=== PATIENT | female | born 1970 | race Caucasian/White ===

== ENCOUNTER 2023-10-03 21:57 | Emergency (ER) | payer BC, SELFPAY ==
[2023-10-03 22:14] VITALS: BP 210/105; PULSE 94; RESP 18; O2SAT 96; BMI 43.9
[2023-10-03 23:35] VITALS: O2SAT 93
[2023-10-03 23:36] VITALS: BP 233/114; O2SAT 93
[2023-10-03 23:40] VITALS: O2SAT 91
--- NOTE | 2023-10-03 23:47 | ED.NAVMDI1 ---
HPI - Nausea/Vomiting/Diarrhea General Chief complaint: Nausea/Vomiting/Diarrhea Stated complaint: SHORTNESS OF BREATH Time Seen by Provider: 10/03/23 23:39 Source: patient Mode of arrival: walk-in History of Present Illness HPI Narrative: patient states she has been ill for 3 days and recurrent vomiting and diarrhea on and off. No complaint of abdominal pain. no hematemesis or blood per rectum. Denies exposure to someone ill. Past history of diabetes and HTN. States she no longer takes medication because she loss her insurance. No fever , cough or chest pain . States her throat is sore but she can swallow. Her BP is elevated. No complaint of headache or chest pain MD elicited complaint: Reports nausea, vomiting and diarrhea Related Data Home Medications Medication Instructions Recorded Confirmed No Known Home Medications 10/03/23 10/03/23 Allergies Allergy/AdvReac Type Severity Reaction Status Date / Time latex Allergy Unknown Verified 10/03/23 22:18 Review of Systems ROS Status of ROS 10 or more systems reviewed and unremarkable except as noted in history and below [facility] Social History Smoking status: Current every day smoker Exam Constitutional Vital Signs, click to edit/add: Last Vital Signs Pulse 84 10/04/23 03:11 Resp 18 10/03/23 22:14 BP 180/75 H 10/04/23 03:11 Pulse Ox 96 10/04/23 03:11 O2 Del Method Room Air 10/03/23 22:14 Common normals: no apparent distress, oriented x3, alert and well nourished Eye Common normals: EOMs intact bilaterally and conjunctivae normal Respiratory Common normals: normal respiratory effort, no retractions, no use of accessory muscles and clear to auscultation bilaterally Cardio Common normals: regular rate, regular rhythm, S1 normal heart sound and S2 normal heart sound GI Common normals: Normal to inspection, nondistended, normoactive bowel sounds present, soft to palpation and non-tender Extremity Common normals: full ROM Other: tense trace edema bilat lower extremities Neuro Common normals: CN's II-XII intact bilaterally, moves all extremities and no focal motor deficits Psych Appearance: grossly normal Course Vital Signs Vital signs: Vital Signs Pulse Rate 94 H 10/03/23 22:14 Respiratory Rate 18 10/03/23 22:14 Blood Pressure 210/105 H 10/03/23 22:14 Pulse Oximetry 96 10/03/23 22:14 Oxygen Delivery Method Room Air 10/03/23 22:14 Pulse Rate 84 10/04/23 03:11 Respiratory Rate 18 10/03/23 22:14 Blood Pressure 180/75 H 10/04/23 03:11 Pulse Oximetry 96 10/04/23 03:11 Oxygen Delivery Method Room Air 10/03/23 22:14 MDM - Nausea/Vomiting/Diarrhea MDM Narrative Medical decision making narrative: patient presents with gastroenteritis symptoms. Treated in the department with zofran without recurrence of vomiting and able to keep down fluids. she has past history of CKD. labs from 07/2022 with creat 1.6. she is diabetic and has not taken any medications for diabetes. her BS tonight is 186. her creat is 2.1 with normal bicarb 26.9. Her potassium was low at 2.6 and supplemented while here in the department. Cxray with findings of infiltrate left chest. patient does not have any shortness of breath. She is advised of the importance of follow up with her family doctor. Treated with 1gm of rocephin and zithomax 500 before discharge. Discharged with a prescription for Ceftin, zithromax, catapres and zofran. Lab Data Labs: Lab Results 10/04/23 Range/Units 00:36 WBC 6.1 (4.0-11.0) 10^3/uL RBC 4.34 (4.20-5.40) 10^6/uL Hgb 12.1 (12.0-16.0) g/dL Hct 36.1 (36.0-48.0) % MCV 83.2 (81.0-99.0) fL MCH 27.9 (26.7-34.0) pg MCHC 33.5 (29.9-35.2) g/dL RDW 13.1 (11.0-15.0) % Plt Count 158 (150-450) 10^3/uL MPV 12.7 (9.5-13.5) fL Neut % (Auto) 62.5 (43.0-75.0) % Lymph % (Auto) 26.7 (20.5-60.0) % [place] % (Auto) 10.0 (1.7-12.0) % Eos % (Auto) 0.2 L (0.9-7.0) % Baso % (Auto) 0.3 (0.2-2.0) % Neut # (Auto) 3.8 (1.4-6.5) 10^3/uL Lymph # (Auto) 1.6 (1.2-3.8) 10^3/uL [place] # (Auto) 0.6 (0.3-0.8) 10^3/uL Eos # (Auto) 0.0 (0.0-0.7) 10^3/uL Baso # (Auto) 0.0 (0.0-0.1) 10^3/uL Abs Immat Gran (auto) 0.02 (0.00-0.03) 10^3/uL Imm/Tot Granulo (auto) 0.3 (0.0-0.5) % Sodium 138 (136-145) mmol/L Potassium 2.6 L* (3.5-5.1) mmol/L Chloride 101 (98-107) mmol/L Carbon Dioxide 26.9 (21.0-32.0) mmol/L Anion Gap 12.7 BUN 22.0 H (7.0-18.0) mg/dL Creatinine 2.18 H (0.55-1.02) mg/dL Est GFR ( Amer) 29 L (>=60) Est GFR (Non-Af Amer) 24 L (>=60) BUN/Creatinine Ratio 10.1 Glucose 186 H (74-106) mg/dL Calcium 8.0 L (8.5-10.1) mg/dL Total Bilirubin 0.2 (0.2-1.0) mg/dL AST 20 (15-37) U/L ALT 13 L (14-59) U/L Alkaline Phosphatase 75 (46-116) U/L Troponin I High Sens 31.3 (4.0-51.3) pg/mL Total Protein 6.0 L (6.4-8.2) g/dL Albumin 1.4 L (3.4-5.0) g/dL Globulin 4.6 g/dL Albumin/Globulin Ratio 0.3 Imaging Data Chest x-ray: Radiologist's impression: MINATION: XR chest 2V HISTORY: vomiting COMPARISON: XR chest 11/24/2022 FINDINGS: LUNGS: Opacities within left lung base obscuring the diaphragm and lower heart margin. VASCULATURE: No increased pulmonary vasculature. PLEURA: Blunting of costophrenic angles bilaterally. CARDIAC: No cardiomegaly or cardiac silhouette abnormality. MEDIASTINUM: No visible mass or adenopathy. BONES: No fracture or visible bone lesion. OTHER: Negative. XR/XR chest 2V IMPRESSION: 1. Mild/moderate left basilar infiltrates suggestive of pneumonia. 2. Possible small bilateral pleural effusions. Discharge Plan Discharge Chief Complaint: Nausea/Vomiting/Diarrhea Clinical Impression: Gastroenteritis, Chronic kidney disease (CKD), Hypertension, Pneumonia, Hypokalemia Patient Disposition: Home, Self-Care Prescriptions / Home Meds: No Action No Known Home Medications Instructions: Chronic Kidney Disease Diet (DC), Hypokalemia (ED), Gastroenteritis (ED), Hypertension (ED), Pneumonia (ED) Additional Instructions: follow up with your doctor early next week. Return if any worsening or vomiting not controlled Stand Alone Forms: Portal Instructions Referrals: Arnulfo Sarmiento MD [Primary Care Provider] - 1 week
[2023-10-03 23:50] VITALS: O2SAT 94
--- NOTE | 2023-10-03 23:53 | XR_ITS ---
The [address] [address] Patient Name: DARYL CHAPARRO MRN: [id number] date: 1970 Sex: F Assigned Patient Location: ER Current Patient Location: ER Accession/Order Number: [id number] Exam Date: 10/03/2023 23:59 Report Date: 10/04/2023 01:41 At the request of: MARSHA LOMELI Procedure: XR chest 2V EXAMINATION: XR chest 2V HISTORY: vomiting COMPARISON: XR chest 11/24/2022 FINDINGS: LUNGS: Opacities within left lung base obscuring the diaphragm and lower heart margin. VASCULATURE: No increased pulmonary vasculature. PLEURA: Blunting of costophrenic angles bilaterally. CARDIAC: No cardiomegaly or cardiac silhouette abnormality. MEDIASTINUM: No visible mass or adenopathy. BONES: No fracture or visible bone lesion. OTHER: Negative. XR/XR chest 2V IMPRESSION: 1. Mild/moderate left basilar infiltrates suggestive of pneumonia. 2. Possible small bilateral pleural effusions. Electronically authenticated by: KATALINA SIMS Date: 10/04/2023 01:41
[2023-10-03 23:58] VITALS: O2SAT 91
[2023-10-04 00:53] LABS: Basophils Percent Auto 0.3 % (0.2-2.0); Eosinophils Percent Auto 0.2 % (0.9-7.0); Hematocrit 36.1 % (36.0-48.0); Hemoglobin 12.1 g/dL (12.0-16.0); Immature Granulocytes Abs Auto 0.02 10^3/uL (0.00-0.03); Immature Granulocytes Pct Auto 0.3 % (0.0-0.5); Lymphocytes Absolute Auto 1.6 10^3/uL (1.2-3.8); Lymphocytes Percent Auto 26.7 % (20.5-60.0); Mean Corpuscular HGB Conc 33.5 g/dL (29.9-35.2); Mean Corpuscular Hemoglobin 27.9 pg (26.7-34.0); Mean Corpuscular Volume 83.2 fL (81.0-99.0); Mean Platelet Volume 12.7 fL (9.5-13.5); Monocytes Absolute Auto 0.6 10^3/uL (0.3-0.8); Neutrophils Absolute Auto 3.8 10^3/uL (1.4-6.5); Neutrophils Percent Auto 62.5 % (43.0-75.0); Platelet Count 158 10^3/uL (150-450); Red Blood Count 4.34 10^6/uL (4.20-5.40); Red Cell Distribution Width 13.1 % (11.0-15.0); White Blood Count 6.1 10^3/uL (4.0-11.0)
[2023-10-04 01:15] LABS: Alanine Aminotransferase 13 U/L (14-59); Albumin Globulin Ratio 0.3; Albumin Level 1.4 g/dL (3.4-5.0); Alkaline Phosphatase 75 U/L (46-116); Anion Gap 12.7; Aspartate Amino Transferase 20 U/L (15-37); BUN Creatinine Ratio 10.1; Bilirubin Total 0.2 mg/dL (0.2-1.0); Carbon Dioxide 26.9 mmol/L (21.0-32.0); Chloride 101 mmol/L (98-107); Estimated GFR (African America 29 (>=60); Estimated GFR (Non-African Ame 24 (>=60); Globulin 4.6 g/dL; Glucose 186 mg/dL (74-106); Sodium 138 mmol/L (136-145); Troponin I High Sensitivity 31.3 pg/mL (4.0-51.3)
[2023-10-04 01:17] LABS: Potassium 2.6 mmol/L (3.5-5.1)
--- NOTE | 2023-10-04 01:18 | PC.NURSE ---
Potassium 2.6 aware.
[2023-10-04] MEDS: ONDANSETRON 4 MG RAPDIS TABLET SL (01:23)
[2023-10-04 01:26] VITALS: BP 217/94
[2023-10-04 01:27] VITALS: BP 217/94
[2023-10-04] MEDS: CLONIDINE HCL 0.2 MG TABLET PO (01:27)
[2023-10-04] MEDS: POTASSIUM CHLORIDE 10 MEQ ER TABLET 40 MEQ PO (01:43)
[2023-10-04 01:45] VITALS: O2SAT 89
[2023-10-04 01:48] VITALS: BP 227/91; O2SAT 88
[2023-10-04 03:11] VITALS: BP 180/75; PULSE 84; O2SAT 96
[2023-10-04] MEDS: CEFTRIAXONE 1,000 MG, LIDOCAINE HCL/PF 2.1 ML IM (04:10)
[2023-10-04] MEDS: CLONIDINE HCL 0.1 MG TABLET PO (04:15)
[2023-10-04 04:18] VITALS: BP 174/72; PULSE 67; RESP 18; O2SAT 99
== END 2023-10-04 04:17 | disposition home or self-care (01) ==
PROVIDERS: Emergency Provider Internal Medicine; PCP Surgery
DX: K52.9 Noninfective gastroenteritis and colitis, unspecified (principal); I12.9 Hypertensive chronic kidney disease with stage 1 through stage 4 chronic kidney disease, or unspecified chronic kidney disease; N18.9 Chronic kidney disease, unspecified; J18.9 Pneumonia, unspecified organism; E87.6 Hypokalemia; F17.210 Nicotine dependence, cigarettes, uncomplicated; Z87.898 Personal history of other specified conditions
CPT/HCPCS: 36415; 71046; 80053; 84484; 85025; 96372; 99285

== ENCOUNTER 2023-10-29 19:32 | Inpatient (IN) | payer BC, SELFPAY ==
[2023-10-29 19:43] VITALS: BP 180/100; PULSE 104; RESP 18; TEMP 36.8; O2SAT 86; BMI 41.8
--- OUTSIDE RECORDS SUMMARY | 2023-10-29 19:46 | XMS_ITS | CCD ---
Author Name Unknown Address [address] [place] [address] Organization [facility] Care Team Providers Care Cover Inspector Name Role Phone TAMLYN ., HIEU Attending Unavailable ZEFERINO, DR BARBOZA Primary Care Unavailable TAMLYN ., HIEU Admitting Unavailable DERAS, DR BARBOZA Primary Care Unavailable TAMLYN ., HIEU Attending Unavailable TAMLYN ., HIEU Admitting Unavailable TAMLYN ., HIEU Attending Unavailable DERAS, DR BARBOZA Primary Care Unavailable TAMLYN ., HIEU Admitting Unavailable TAMLYN ., HIEU Attending Unavailable TAMLYN ., HIEU Admitting Unavailable ZEFERINO, DR BARBOZA Primary Care Unavailable TAMLYN ., HIEU Attending Unavailable TAMLYN ., HIEU Admitting Unavailable DERAS, DR BARBOZA Primary Care Unavailable TAMLYN ., HIEU Attending Unavailable ZEFERINO, DR BARBOZA Primary Care Unavailable TAMLYN ., HIEU Admitting Unavailable TAMLYN ., HIEU Attending Unavailable ZEFERINO, DR BARBOZA Primary Care Unavailable TAMLYN ., HIEU Admitting Unavailable ZEFERINO, DR BARBOZA Primary Care Unavailable HAY ., DR SOUTH Admitting Unavailable HU ., MR TEJADA Consulting Unavailable HAY ., DR SOUTH Attending Unavailable ZEFERINO, DR BARBOZA Primary Care Unavailable HOY ., DR ARMENDARIZ Attending Unavailable BRYCE ., DR ARMENDARIZ Admitting Unavailable SAMSA ., DORA Procedure Practitioner Unavailab saba Matthews, DR ARMENDARIZ Consulting Unavailable VINNY JACKSON V Consulting Unavailable BETHANY, DR KATALINA Mcdaniels Consulting Unavailable DEVIN, DR OPAL Bonilla Consulting Unavailable JOHNSON .DONAVAN Consulting Unavailabl e SAMSA ., DORA Consulting Unavailable JUNIOR Matthews, HALIEY Consulting Unavailable DIXIE KHAN Consulting Unavailable LILIANA DICKENS Consulting Unavailable ZEFERINO, DR BARBOZA Consulting Unavailable ZEFERINO, DR BARBOZA Attending Unavailable ZEFERINO, DR BARBOZA Admitting Unavailable ZEFERINO, DR BARBOZA Primary Care Unavailable TAMLYN ., HIEU Procedure Practitioner Unavailab le ZEFERINO, DR BARBOZA Primary Care Unavailable FAWWAD, BEAVERS H Attending Unavailable FAWWAD, BEAVERS H Admitting Unavailable MARY ANN ., DR LILIANA Vaughn Consulting Unavaildede WU ., DR ARMENDARIZ Consulting Unavailable SHARWAD, BEAVERS H Procedure Practitioner UnavailVINNY Earl V Consulting Unavailable BETHANY, DR KATALINA Mcdaniels Consulting Unavailable PAY ., DR ODEN Consulting Unavailable SEGUNDOCHCÉSAR ., DONAVAN SCHWAB Consulting Unavailnato WONG, SHAIKH Jennifer Consulting Unavailable SATURNINO GRUBER Consulting Unavailable NAMITA II, RAIZA Consulting Unavailable TAMLYN ., HIEU Consulting Unavailable FILUTZE, KEV Consulting Unavailable FRANCIALYEren ., HIEU Admitting Unavailable ZEFERINO, DR BARBOZA Primary Care Unavailable TAMLYEren ., HIEU Attending Unavailable HAL ., HIEU Attending Unavailable ZEFERINO, DR BARBOZA Primary Care Unavailable TAMLYN ., HIEU Admitting Unavailable TAMLYN ., HIEU Attending Unavailable ZEFERINO, DR BARBOZA Primary Care Unavailable TAMLYN ., HIEU Admitting Unavailable Asaad, Imad Unavailable Asaad, Imad Admitting Unavailable Asaad, Imad Attending Unavailable Ayaan Deras Primary Care Unavailable Ayaan Deras Primary Care Unavailable Asaad, Imad Admitting Unavailable Asaad, Imad Attending Unavailable Ayaan Deras Primary Care Unavailable Asaad, Imad Admitting Unavailable Asaad, Imad Attending Unavailable Allergies Allergy Classification Reported Allergen(s) Allergy Type Date of Onset Reaction(s) Facility (1 source) Latex Drug allergy (disorder) [facility] Repository (1 source) Latex rubber gloves Drug allergy Unknown [employer]Trigger Other (1 source) Latex Drug allergy (disorder) 03-19-2023 [facility] Repository Medications Current Medications Medication Drug Class(es) Dates Sig (Normalized) Sig (Original) atorvastatin 40 mg oral tablet (1 source) HMG-CoA Reductase Inhibitor take 1 tablet by mouth every twenty-four hours Atorvastatin Calcium 40 MG 1 tablet Orally Once a day Active atropine sulfate 0.025 mg / diphenoxylate hydrochloride 2.5 mg oral tablet (1 source) Anticholinergic, Cholinergic Muscarinic Antagonist, Antidiarrheal take 1 tablet by mouth every six hours Diphenoxylate-Atrop ine 2.5-0.025 MG 1 tablet as needed Orally Four times a day Active dapagliflozin 10 mg oral tablet (1 source) Sodium-Glucose Cotransporter 2 Inhibitor take 1 tablet by mouth every twenty-four hours Farxiga 10 MG 1 tablet Orally Once a day Active ferrous sulfate 325 mg oral tablet (1 source) Ferrous Sulfate 325 MG as directed Orally Active furosemide 40 mg oral tablet (1 source) Loop Diuretic take 1 tablet by mouth every twenty-four hours Furosemide 40 MG 1 tablet Orally Once a day Active Insulin Glargine (1 source) Insulin Analog Lantus Active ondansetron 4 mg disintegrating oral tablet (1 source) Serotonin-3 Receptor Antagonist take 1 tablet by mouth every twenty-four hours Ondansetron 4 MG 1 tablet on the tongue and allow to dissolve Orally Once a day Active pantoprazole 40 mg delayed release oral tablet (1 source) Proton Pump Inhibitor take 1 tablet by mouth every twenty-four hours Pantoprazole Sodium 40 MG 1 tablet Orally Once a day Active polyethylene glycol 3350 134704 mg / potassium chloride 2970 mg / sodium bicarbonate 6740 mg / sodium chloride 5860 mg / sodium sulfate 74519 mg powder for oral solution (1 source) Osmotic Laxative Start: 03-11-2023 take 236 g by mouth once daily Golytely 236 GM 236 gm Orally the day before colonoscopy for 1 days February, Active spironolactone 25 mg oral tablet (1 source) Aldosterone Antagonist Spironolactone 25 MG 1 tablet Orally Active traZODone hydrochloride 100 mg oral tablet (1 source) Serotonin Reuptake Inhibitor take 1 tablet by mouth every twenty-four hours traZODone HCl 100 MG 1 tablet at bedtime Orally Once a day Active vancomycin 125 mg oral capsule (1 source) Glycopeptide Antibacterial Start: 03-19-2023 take 1 capsule by mouth four times daily Vancomycin HCl 125 MG 1 capsule Orally 4 times daily for 10 days February, Active Problems Active Problems Problem Classification Problem Date Documented Da te Episodic/Chronic Bacterial infection; unspecified site (1 source) Other specified bacterial agents as the cause of diseases classified elsewhere; Translations: [OTH SPEC BACTERIAL DZ CLASS ELSW] Onset: 01-12-2023 Episodic Chronic kidney disease (1 source) Chronic kidney disease; Translations: [CHRONIC KIDNEY DISEASE STAGE 3A] Onset: 08-12-2022 Chronic obstructive pulmonary disease and bronchiectasis (1 source) Chronic obstructive pulmonary disease, unspecified; Translations: [COPD UNSPECIFIED] Onset: 12-03-2022 Chronic Complications of surgical procedures or medical care (8 sources) Other complications of procedures, not elsewhere classified, subsequent encounter; Translations: [Other complications of procedures, not elsewhere classified, initial encounter] Onset: 01-01-2023 Episodic Congestive heart failure; nonhypertensive (2 sources) Chronic diastolic (congestive) heart failure; Translations: [Acute diastolic (congestive) heart failure] Onset: 08-12-2022 Chronic Diabetes mellitus with complications (3 sources) Type 2 diabetes 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; Translations: [Type 2 diabetes mellitus with diabetic chronic kidney disease] Onset: 12-03-2022 Chronic Diabetes mellitus without complication (1 source) Type 2 diabetes mellitus without complications; Translations: [TYPE 2 DM WITHOUT COMPLICATIONS] Onset: 04-23-2022 Chronic Diseases of white blood cells (1 source) Elevated white blood cell count, unspecified; Translations: [ELEVATED WHITE BLOOD CELL COUNT UNS] Onset: 08-12-2022 Chronic Disorders of lipid metabolism (2 sources) Hyperlipidemia, unspecified; Translations: [Pure hypercholesterolemi a, unspecified] Onset: 08-12-2022 Chronic Essential hypertension (1 source) Essential (primary) hypertension; Translations: [ESSENTIAL PRIMARY HYPERTENSION] Onset: 01-12-2023 Chronic Hypertension with complications and secondary hypertension (4 sources) Hypertensive heart and chronic kidney disease with heart failure and stage 1 through stage 4 chronic kidney disease, or unspecified chronic kidney disease; Translations: [Hypertensive urgency] Onset: 07-30-2022 Chronic Mood disorders (1 source) Major depressive disorder, single episode, unspecified; Translations: [JOSÉ DEPRESS D/O SINGLE EPIS UNS] Onset: 08-12-2022 Chronic Mood disorders (1 source) Mood disorders; Translations: [DEPRESSION UNSPECIFIED] Onset: 12-03-2022 Other gastrointestinal disorders (4 sources) Diarrhea, unspecified; Translations: [DIARRHEA UNSPECIFIED] Onset: 12-26-2022 Episodic Other gastrointestinal disorders (1 source) Diarrhea; Translations: [Diarrhea, unspecified] Episodic Other nutritional; endocrine; and metabolic disorders (1 source) Body mass index (BMI) 45.0-49.9, adult; Translations: [BODY MASS INDEX BMI 45.0-49.9 ADULT] Onset: 12-03-2022 Chronic Other nutritional; endocrine; and metabolic disorders (1 source) Morbid (severe) obesity due to excess calories; Translations: [MORBID SEVERE OBES D/T EXCESS YG] Onset: 12-03-2022 Chronic Other screening for suspected conditions (not mental disorders or infectious disease) (2 sources) Patient encounter status; Translations: [Encounter for screening for malignant neoplasm of colon] Episodic Skin and subcutaneous tissue infections (1 source) Cellulitis of other sites; Translations: [CELLULITIS OF OTHER SITES] Onset: 01-12-2023 Episodic Substance-related disorders (2 sources) Nicotine dependence, cigarettes, with unspecified nicotine-induced disorders; Translations: [Nicotine dependence, cigarettes, uncomplicated] Onset: 12-03-2022 Chronic Unclassified (1 source) CHRN KIDNEY DISEASE STG 3 UNSP; Translations: [CHRN KIDNEY DISEASE STG 3 UNSP] Onset: 12-03-2022 Unclassified (1 source) CONTACT W/AND (SUSP) EXPOS COVID-19; Translations: [CONTACT W/AND (SUSP) EXPOS COVID-19] Onset: 08-12-2022 Unclassified (1 source) Diarrhea, unspecified; Translations: [Diarrhea, unspecified] Onset: 03-19-2023 Past or Other Problems Problem Classification Problem Date Documented Da te Episodic/Chronic Acute and unspecified renal failure (1 source) Acute kidney failure, unspecified; Translations: [ACUTE KIDNEY FAILURE UNSPECIFIED] Onset: 12-03-2022 Episodic Deficiency and other anemia (1 source) Anemia, unspecified; Translations: [ANEMIA UNSPECIFIED] Onset: 12-03-2022 Episodic Fluid and electrolyte disorders (1 source) Hypokalemia; Translations: [HYPOKALEMIA] Onset: 08-12-2022 Episodic Gangrene (1 source) Gangrene, not elsewhere classified; Translations: [GANGRENE NOT ELSEWHERE CLASSIFIED] Onset: 12-03-2022 Episodic Gastritis and duodenitis (1 source) Gastroduodenitis, unspecified, without bleeding; Translations: [GASTRODUODENITIS UNS W/O BLEEDING] Onset: 08-12-2022 Episodic Nonmalignant breast conditions (1 source) Mastitis without abscess; Translations: [MASTITIS WITHOUT ABSCESS] Onset: 12-03-2022 Episodic Other aftercare (1 source) prison (current) use of oral hypoglycemic drugs; Translations: [[facility] USE ORAL HYPOGLYCEMIC DX] Onset: 12-03-2022 Episodic Other aftercare (1 source) Other intermediate (current) drug therapy; Translations: [OTH FROZEN FOOD DEPARTMENT MANAGER CURRENT DRUG THERAPY] Onset: 12-03-2022 Episodic Other aftercare (1 source) prison (current) use of insulin; Translations: [FROZEN FOOD DEPARTMENT MANAGER CURRENT USE OF INSULIN] Onset: 12-03-2022 Episodic Other ear and sense organ disorders (3 sources) Otalgia, right ear; Translations: [OTALGIA RIGHT EAR] Onset: 04-20-2022 Episodic Other gastrointestinal disorders (1 source) Other fecal abnormalities; Translations: [OTHER FECAL ABNORMALITIES] Onset: 08-12-2022 Episodic Other upper respiratory infections (1 source) Acute upper respiratory infection, unspecified; Translations: [ACUTE UP RESPIRATORY INFECTION UNS] Onset: 04-23-2022 Episodic Otitis media and related conditions (1 source) Otitis media, unspecified, right ear; Translations: [OTITIS MEDIA UNSPECIFIED RIGHT EAR] Onset: 04-23-2022 Episodic Pleurisy; pneumothorax; pulmonary collapse (1 source) Pleural effusion in other conditions classified elsewhere; Translations: [PLEURAL EFF OTH COND CLASS ELSW] Onset: 08-12-2022 Episodic Residual codes; unclassified (1 source) Family history of malignant neoplasm of breast; Translations: [FAMILY HX MALIG NEOPLASM OF BREAST] Onset: 12-03-2022 Episodic Respiratory failure; insufficiency; arrest (adult) (1 source) Acute respiratory failure with hypoxia; Translations: [ACUTE RESPIRATORY FAIL W/HYPOXIA] Onset: 08-12-2022 Episodic Septicemia (except in labor) (4 sources) Sepsis, unspecified organism; Translations: [Severe sepsis without septic shock] Onset: 11-21-2022 Episodic Results Test Name Value Interpretation Reference Range Facility Glucose Poct Glucometerson 0 03-19-2023 Commemt1 Glu2: Cleaned Meter Normal [facility] Comment on above: Result Comment: PERF ORMED BY: [place] [address] PATHOLOGIST LEAD SIMULATION MODELING ENGINEER PAT NORWOOD M.D. Performed By: #### C ELIAC #### [facility] , #### TSH3, ESR, CRP #### [place] [address] [place] Glucose [Mass/Vol] 93 mg/dL Normal [facility] Comment on above: Result Comment: [facility] Glucose Reference Range is dependent on time and content of last meal. Glucose of more than 200 mg/dL in a nonstressed, ambulatory subject supports the diagnosis of Diabetes Mellitus. Performed By: #### C ELIAC #### [facility] , #### TSH3, ESR, CRP #### [facility] [address] [place] 03-19-2023 L --- Specimen: [id number] Received: 03/19/23 Status: CORRY Flannery Num: [id number] Spec Type: Surgical Subm Dr: Carolyn Ramsey MD Tissues: A Colon Biopsy (RANDOM COLON BX) Procedures: HE/Gem, Nito/Himanshu L4 Age/ Patient Sex Location Account Attending Physician Daryl Roque 53/F [id number] Carolyn Ramsey MD SPEC NUM: [id number] RECD: 03/19/23 STATUS: CORRY FLANNERY NUM: [id number] MARIANNA: 03/19/23 DR: Carolyn Ramsey MD ENTERED: 03/19/[address] [facility] [address]: MELLISSA TYPE: Surgical DEPT: S ORDERED: HE/2, Gross/Micro L4 ORDERED: HE/2, Gross/Micro L4 Pathological Diagnosis Colon, random, biopsy: - Colonic mucosa negative for significant histopathologic changes. - There is no evidence of acute, chronic or microscopic colitis. - Negative for epithelial dysplasia. Clinical Information Diarrhea, rule out microscopic colitis Gross Description Received in formalin labeled with the patient's name, number and biopsy random colon are three fragments of soft low tissue averaging 0.2 cm. Entirely submitted in one cassette labeled A1. Microscopic Description Two H E slides reviewed. The microscopic examination confirms the diagnosis. CPT Codes 51415 Specimen: [id number] Received: 03/19/23 Status: CORRY Flannery Num: [id number] Spec Type: Surgical Subm Dr: Carolyn Ramsey MD Tissues: A Colon Biopsy (RANDOM COLON BX) Procedures: HE/2, Gross/Micro L4 Patient: Daryl Roque [id number] (Continued) Signed (signature on file) Kelsea Sullivan MD 03/20/23 1035 Normal [facility] Calprotectin, Fecalon 2022 Calprotectin, Fecal 6 Normal 0-120 [facility] Comment on above: Order Comment: Reaso n for Exam Diarrhea Result Comment: Conc entration Interpretation Follow-Up < 5 - 50 ug/g Normal None >50 -120 ug/g Borderline Re-evaluate in 4-6 weeks >120 ug/g Abnormal Repeat as clinically indicated Performed at: - [facility] [address] [id number] Showroom Consultant: Mary Sung MD, Phone: [phone] PERFORMED BY: [facility] [address] [place] [address] PATHOLOGIST LEAD SIMULATION MODELING ENGINEER PAT NORWOOD M.D. Performed By: #### C ALPROTECT, OPEXAM, ELASTASE STOOL #### [facility] , #### CDT, CUSTOOL #### [facility] [address] [place] [address] Clostridium Difficileon 02-24 Clostridium Difficile Positive Normal Negative [facility] Comment on above: Order Comment: Reaso n for Exam Diarrhea Result Comment: Test ing performed by RT-PCR PERFORMED BY: [place] [address] PATHOLOGIST LEAD SIMULATION MODELING ENGINEER PAT NORWOOD M.D. Performed By: #### C ALPROTECT, OPEXAM, ELASTASE STOOL #### [facility] , #### CDT, CUSTOOL #### [facility] [address] [place] [address] OVA AND PARASITEon OVA AND PARASITE Reason for Exam Diarrhea Stool Reason for Exam: Diarrhea : Stool Final report These results were obtained using wet preparation(s) and trichrome stained smear. This test does not include testing for Cryptosporidium parvum, Cyclospora, or Microsporidia. Reason for Exam Diarrhea Stool Reason for Exam: Diarrhea : Stool No ova, cysts, or parasites seen. One negative specimen does not rule out the possibility of a parasitic infection. Performed at: - [facility] [id number] Showroom Consultant: Louis Hansen PhD, Phone: [phone] PERFORMED BY: [place] [address] PATHOLOGIST LEAD SIMULATION MODELING ENGINEER PAT NORWOOD M.D. Normal [facility] Comment on above: Performed By: #### C ALPROTECT, OPEXAM, ELASTASE STOOL #### [facility] , #### CDT, CUSTOOL #### [facility] [address] [place] [address] [place] Pancreatic Elastase, Stoolon 03-18-2023 Pancreatic Elastase, Stool >500 Normal >200 [facility] Comment on above: Order Comment: Reaso n for Exam Diarrhea Result Comment: Resu lt Units: ug Elast./g Severe Pancreatic Insufficiency: <100 Moderate Pancreatic Insufficiency: 100 - 200 Normal: >200 Performed at: - [facility] [id number] Showroom Consultant: Mary Sung MD, Phone: [phone] Performed By: #### C ALPROTECT, OPEXAM, ELASTASE STOOL #### [facility] , #### CDT, CUSTOOL #### [facility] [address] [place] [address] Stool Cultureon 03-18-2023 Stool culture Reason for Exam Diarrhea Stool Reason for Exam: Diarrhea : Stool Negative for Shiga Toxin 1 Negative for Shiga Toxin 2 -------- A negative Shiga Toxin result may occur if the antigen level in the specimen is below the detection limit of the assay. Stool culture results No Salmonella, Shigella, Campy or E. coli 0157:H7 Isolated PERFORMED BY: [place] [address] PATHOLOGIST LEAD SIMULATION MODELING ENGINEER PAT NORWOOD M.D. [facility] Comment on above: Performed By: #### C ALPROTECT, OPEXAM, ELASTASE STOOL #### [facility] , #### CDT, CUSTOOL #### [facility] [address] [place] [address] C-Reactive Proteinon 023 C-Reactive Protein 1.0 mg/dL High 0.0-0.5 [facility] Comment on above: Order Comment: Reaso n for Exam Diarrhea Performed By: #### C ELIAC #### [facility] , #### TSH3, ESR, CRP #### [facility] [address] [place] [address] Celiacon 03-11-2023 Deamidated Gliadin Abs, IgA 9 Normal 0-19 [facility] Comment on above: Order Comment: Reaso n for Exam Diarrhea Result Comment: Nega tive 0 - 19 Weak Positive 20 - 30 Moderate to Strong Positive >30 Performed By: #### C ELIAC #### [facility] , #### TSH3, ESR, CRP #### [facility] [address] [place] [address] [place] Deamidated Gliadin Abs, IgG 3 Normal 0-19 [facility] Comment on above: Order Comment: Reaso n for Exam Diarrhea Result Comment: Nega tive 0 - 19 Weak Positive 20 - 30 Moderate to Strong Positive >30 Performed By: #### C ELIAC #### [facility] , #### TSH3, ESR, CRP #### [facility] [address] [place] [address] [place] Endomysial Antibody IgA Negative Normal Negative [facility] Comment on above: Order Comment: Reaso n for Exam Diarrhea Performed By: #### C ELIAC #### [facility] , #### TSH3, ESR, CRP #### [facility] [address] [place] [address] [place] Immunoglobulin A, Qn, Serum 267 mg/dL Normal 87-352 [facility] Comment on above: Order Comment: Reaso n for Exam Diarrhea Result Comment: Perf ormed at: - [facility] [address] [id number] Showroom Consultant: Louis Hansen PhD, Phone: [phone] PERFORMED BY: [place] [address] PATHOLOGIST LEAD SIMULATION MODELING ENGINEER PAT NORWOOD M.D. Performed By: #### C ELIAC #### [facility] , #### TSH3, ESR, CRP #### [facility] [address] [place] [address] [place] T-Transglutaminase (tTG) IgA <2 Normal 0-3 [facility] Comment on above: Order Comment: Reaso n for Exam Diarrhea Result Comment: Nega tive 0 - 3 Weak Positive 4 - 10 Positive >10 Tissue Transglutaminase (tTG) has been identified as the endomysial antigen. Studies have demonstr- ated that endomysial IgA antibodies have over 99% specificity for gluten sensitive enteropathy. Performed By: #### C ELIAC #### [facility] , #### TSH3, ESR, CRP #### [facility] [address] T-Transglutaminase (tTG) IgG <2 Normal 0-5 [facility] Comment on above: Order Comment: Reaso n for Exam Diarrhea Result Comment: Nega tive 0 - 5 Weak Positive 6 - 9 Positive >9 Performed By: #### C ELIAC #### [facility] , #### TSH3, ESR, CRP #### [address] Erythrocyte Sedimentation Ra jose 03-11-2023 ESR (Bld) [Velocity] 98 mm/h High 0-29 [facility] Comment on above: Order Comment: Reaso n for Exam Diarrhea Result Comment: PERF ORMED BY: [place] [address] PATHOLOGIST LEAD SIMULATION MODELING ENGINEER PAT NORWOOD M.D. Performed By: #### C ELIAC #### [facility] , #### TSH3, ESR, CRP #### [address] Thyroid Stimulating Hormoneo n 03-11-2023 TSH Qn 0.34 m[IU]/L Low 0.45-5.33 [facility] Comment on above: Order Comment: Reaso n for Exam Diarrhea Result Comment: PERF ORMED BY: [place] [address] PATHOLOGIST LEAD SIMULATION MODELING ENGINEER PAT NORWOOD M.D. Performed By: #### C ELIAC #### [facility] , #### TSH3, ESR, CRP #### [facility] [address] [place] [address] ACID FAST SMEAR AND CXon Acid Fast Culture Negative Normal [facility] Comment on above: Result Comment: No a junior fast bacilli isolated after 6 weeks. Performed By: #### A FB ####[facility] [address] [place] [id number]. Kalei Bess Acid Fast Smear Negative Normal [facility] Comment on above: Performed By: #### A FB ####[facility] [address] [place], [place] [id number]. Kalie Bess [employer] Specimen Processing Direct Inoculation Normal [facility] Comment on above: Performed By: #### A FB ####[facility] [address] [place], [place] [id number]. Kalie Bess PRBC LEUKOREDUCEDon 12-31-19 23 PRBC LEUKOREDUCED Normal [facility] Comment on above: Performed By: #### P RBC ####[facility] [address] [place], [place] [address]Dr. Kalie Bess FUNGAL CULTUREon 12-29-2022 Fungus (Mycology) Culture Final report Normal [facility] Comment on above: Performed By: #### C XFUN ####[facility] [address] [place], [place] [address]Dr. Kalie Bess Fungus Stain Final report Normal [facility] Comment on above: Performed By: #### C XFUN ####[facility] [address] [place], [place] [address]Dr. Kalie Bess Result 1 Comment Normal [facility] Comment on above: Result Comment: GILMA/ Calcofluor preparation: no fungus observed. Performed By: #### C XFUN ####[facility] [address] [place], [place] [address]Dr. Kalie Bess Result Comment: No y east or mold isolated after 4 weeks. C. DIFF PCRon 12-26-2022 C. DIFFICILE PCR Negative Normal NEGATIVE [facility] Comment on above: Performed By: #### C DIFPOC ####[facility] [address] [place], [place] [address]Dr. Kalie Bess CBC AUTO DIFFon 11-30-2022 BASO # 0.1 103/ul Normal 0.0-0.1 [facility] Comment on above: Performed By: #### C BC ####[facility] Dpvzwlzgkh[address] [place], [place] [address]Dr. Kalie Bess Basophils/100 WBC (Bld) 0.4 % Normal 0.2-2.0 [facility] Comment on above: Performed By: #### C BC ####[facility] Iihlfhhqzg6598 [place] [id number]. Kalie Bess EO # 0.4 103/ul Normal 0.0-0.7 [facility] Comment on above: Performed By: #### C BC ####[facility] Obsckvmbou2393 [place] [address]Dr. Kalie Bess Eosinophils/100 WBC (Bld) 2.5 % Normal 0.9-7.0 [facility] Comment on above: Performed By: #### C BC ####[facility] Exljjoqghl8619 [place] [address]Dr. Kalie Bess Erythrocyte distribution width (RBC) [Ratio] 14.1 % Normal 11.0-15.0 [facility] Comment on above: Performed By: #### C BC ####[facility] Zlmctojntx0498 [place] [address]Dr. Kalie Bess Hematocrit (Bld) [Volume fraction] 24.3 % Critically low 36.0-48.0 [facility] Comment on above: Performed By: #### C BC ####[facility] Timasyoedb0333 [place] [id number]. Kalie Bess Hemoglobin (Bld) [Mass/Vol] 7.3 g/dL Critically low 12.0-16.0 [facility] Comment on above: Performed By: #### C BC ####[facility] Ymgexremfn7892 [place] [id number]. Kalie Bess IG # 0.29 10e3/ul Critically high 0.00-0.03 [facility] Comment on above: Performed By: #### C BC ####[facility] Dkuondmteg1522 [place] [id number]. Kalie Bess IG % 1.9 % Critically high 0.0-0.5 [facility] Comment on above: Performed By: #### C BC ####[facility] Jxlyibkerc6087 [place] [id number]. Kalie Shahriar LYMPH # 3.6 103/ul Normal 1.2-3.8 [facility] Comment on above: Performed By: #### C BC ####[facility] Mtlvqimpnc5764 [place] [phone]. Kalie Shahriar Lymphocytes/100 WBC (Bld) 23.1 % Normal 20.5-60.0 [facility] Comment on above: Performed By: #### C BC ####[facility] Snkwslwhvo4276 [place] [id number]. Shayyroxie Bess MANUAL DIFF REQ NO Normal [facility] Comment on above: Performed By: #### C BC ####[facility] Hdlelwqjqc7205 [place] [phone]. Kalie Shahriar MCH (RBC) [Entitic mass] 28.9 pg Normal 26.7-34.0 [facility] Comment on above: Performed By: #### C BC ####[facility] Jcpqmfrpro0481 [place] [address]Dr. Kalie Bess MCHC (RBC) [Mass/Vol] 30.0 g/dL Normal 29.9-35.2 [facility] Comment on above: Performed By: #### C BC ####[facility] Wvuwjmeqgw5293 [place] [phone]. Kalie Shahriar MCV (RBC) [Entitic vol] 96.0 fL Normal 81.0-99.0 [facility] Comment on above: Performed By: #### C BC ####[facility] Jywjbjfvdr6819 [place] [id number]. Kalie Shahriar MONO # 0.8 103/ul Normal 0.3-0.8 [facility] Comment on above: Performed By: #### C BC ####[facility] Bcyzejwlge2629 [place] [phone]. Kalie Shahriar Monocytes/100 WBC (Bld) 5.0 % Normal 1.7-12.0 [facility] Comment on above: Performed By: #### C BC ####[facility] Rhoqfepbls8637 [place] [phone]. Kalie Bess NEUT # 10.5 103/ul Critically high 1.4-6.5 The [facility] Comment on above: Performed By: #### C BC ####[facility] Lmsdhwghfu8637 [place] [phone]. Kalie Bess Neutrophils/100 WBC (Bld) 67.1 % Normal 43.0-75.0 [facility] Comment on above: Performed By: #### C BC ####[facility] Omviycvmlx7645 [place] [address]Dr. Kalie Bess Platelet mean volume (Bld) [Entitic vol] 10.8 fL Normal 9.5-13.5 [facility] Comment on above: Performed By: #### C BC ####[facility] Rkmqzmqqll3377 [place] [address]Dr. Kalie Bess PLT 272 103/ul Normal 150-450 [facility] Comment on above: Performed By: #### C BC ####[facility] Gxwvhschcz1904 [place] [address]Dr. Kalie Bess RBC 2.53 106/ul Critically low 4.20-5.40 [facility] Comment on above: Performed By: #### C BC ####[facility] Mmgtuipdbj5814 [place] [address]Dr. Kalie Bess WBC 15.7 103/ul Critically high 4.0-11.0 [facility] Comment on above: Performed By: #### C BC ####[facility] Jbfebajtsp6431 [place] [address]Dr. Kalie Bess CRPon 11-30-2022 CRP 4.9 mg/dL Critically high <=1.0 [facility] Comment on above: Performed By: #### C RP, CMP ####[facility] Jwpknqmmhc3547 [place] [address]Dr. Kalie Bess POINT OF CARE GLUCOSEon 02-0 Glucose [Mass/Vol] 295 mg/dL Critically high 74-106 T [facility] Comment on above: Performed By: #### P OCGLUC ####[facility] Byaotdfgry8230 [place] [phone]. Kalie Bess Glucose [Mass/Vol] 166 mg/dL Critically high 74-106 T [facility] Comment on above: Performed By: #### P OCGLUC ####[facility] Cmibkxoqhk9336 [place] [address]Dr. Kalie Bess PROF 14(COMP METB)on 023 Albumin [Mass/Vol] 1.6 g/dL Critically low 3.4-5.0 [facility] Comment on above: Performed By: #### C RP, CMP ####[facility] Junpgoocvf8539 [place] [address]Dr. Kalie Bess Albumin/Globulin [Mass ratio] 0.4 {ratio} Normal [facility] Comment on above: Performed By: #### C RP, CMP ####[facility] Mgeppreggi[address] [place], [place] [address]Dr. Kalie Bess ALP [Catalytic activity/Vol] 115 U/L Normal 46-116 [facility] Comment on above: Performed By: #### C RP, CMP ####[facility] Ucbtmysdra8281 [place] [address]Dr. Kalie Bess ALT [Catalytic activity/Vol] 21 U/L Normal 14-59 [facility] Comment on above: Performed By: #### C RP, CMP ####[facility] Oujucrniod8180 [place] [address]Dr. Kalie Bess Anion gap [Moles/Vol] 10.2 mmol/L Normal [facility] Comment on above: Performed By: #### C RP, CMP ####[facility] Qzlcybdcqn5132 [place] [address]Dr. Kalie Bess AST [Catalytic activity/Vol] 15 U/L Normal 15-37 [facility] Comment on above: Performed By: #### C RP, CMP ####[facility] Qinmxuewzh1138 [place] [address]Dr. Kalie Bess Bilirubin [Mass/Vol] 0.1 mg/dL Critically low 0.2-1.0 [facility] Comment on above: Performed By: #### C RP, CMP ####[facility] Edwsrywhmh9475 [place] [address]Dr. Kalie Bess Calcium [Mass/Vol] 8.1 mg/dL Critically low 8.5-10.[address] [facility] Comment on above: Performed By: #### C RP, CMP ####[facility] Mfmedpgdvi9597 [place] [address]Dr. Kalie Bess Chloride [Moles/Vol] 104 mmol/L Normal 98-107 [facility] Comment on above: Performed By: #### C RP, CMP ####[facility] Lwdmbdkcss[address] [place], [place] [address]Dr. Kalie Bess CO2 [Moles/Vol] 26.1 mmol/L Normal 21.0-32.0 [facility] Comment on above: Performed By: #### C RP, CMP ####[facility] Chckondnlo[address] [place], [place] [address]Dr. Kalie Bess Creatinine [Mass/Vol] 1.88 mg/dL Critically high 0.55-1.02 [facility] Comment on above: Performed By: #### C RP, CMP ####[facility] F[address]ypqbuqyw[address] [place], [place] [address]Dr. Kalie Bess EGFR-AF CITIZEN OF [place] 34 mL/min/1.73m2 Critically low >=60 [facility] Comment on above: Performed By: #### C RP, CMP ####[facility] Ifymqrkeeb[address] [place], [place] [address]Dr. Kalie Bess EGFR-NON AF CITIZEN OF [place] 28 mL/min/1.73m2 Critically low >=60 [facility] Comment on above: Performed By: #### C RP, CMP ####[facility] Uwqgciqsmj[address] [place], [place] [address]Dr. Kalie Shahriar Globulin (S) [Mass/Vol] 4.5 g/dL Normal [facility] Comment on above: Performed By: #### C RP, CMP ####[facility] Tfjeogeoim42[address] [place], [place] [address]Dr. Kalie Bess Glucose [Mass/Vol] 171 mg/dL Critically high 74-106 T [facility] Comment on above: Performed By: #### C RP, CMP ####[facility] Ldsbajsolw4590 [place] [address]Dr. Kalie Bess Potassium [Moles/Vol] 4.3 mmol/L Normal 3.5-5.1 [facility] Comment on above: Performed By: #### C RP, CMP ####[facility] Ouxrxesoiv2705 [place] [address]Dr. Kalie Bess Protein [Mass/Vol] 6.1 g/dL Critically low 6.4-8.[address] [facility] Comment on above: Performed By: #### C RP, CMP ####[facility] Kclyjgdier04[address] [place], [place] [address]Dr. Shayyroxie Bess Sodium [Moles/Vol] 136 mmol/L Normal 136-145 [facility] Comment on above: Performed By: #### C RP, CMP ####[facility] [address]pygulowx90[address] [place], [place] [address]Dr. Kalie Shahriar Urea nitrogen [Mass/Vol] 17.0 mg/dL Normal 7.0-18.0 [facility] Comment on above: Performed By: #### C RP, CMP ####[facility] [address]knepwwhe[address] [place], [place] [address]Dr. Shayyroxie Shahriar Urea nitrogen/Creatinine [Mass ratio] 9.0 mg/mg Normal [facility] Comment on above: Performed By: #### C RP, CMP ####[facility] Whhrljhdlp0520 [place] [address]Dr. Shayyroxie Shahriar SED RATE WESTBANNERRENon 2022 SED RATE 77 mm/hr Critically high <=30 [facility] Comment on above: Performed By: #### S EDR ####[facility] Cazziheibn[address] [place], [place] [address]Dr. Shayyroxie Shahriar CBC AUTO DIFFon 11-29-2022 BASO # 0.1 103/ul Normal 0.0-0.1 [facility] Comment on above: Performed By: #### C BC ####[facility] Npbgpjydli3534 [place] [phone]. Kalie Bess Basophils/100 WBC (Bld) 0.3 % Normal 0.2-2.0 [facility] Comment on above: Performed By: #### C BC ####[facility] Elybzlufeo1062 [place] [phone]. Kalie Bess EO # 0.4 103/ul Normal 0.0-0.7 [facility] Comment on above: Performed By: #### C BC ####[facility] Nxpkihuwzs[address] [place], [place] [id number]. Kalie Bess Eosinophils/100 WBC (Bld) 2.3 % Normal 0.9-7.0 [facility] Comment on above: Performed By: #### C BC ####[facility] Stbfcuhtpb[address] [place], [place] [address]Dr. Kalie Bess Erythrocyte distribution width (RBC) [Ratio] 14.0 % Normal 11.0-15.0 [facility] Comment on above: Performed By: #### C BC ####[facility] Ojxbzwxqlk8215 [place] [phone]. Kalie Bess Hematocrit (Bld) [Volume fraction] 24.7 % Critically low 36.0-48.0 [facility] Comment on above: Performed By: #### C BC ####[facility] Wvoibqzmbk1672 [place] [phone]. Kalie Bess Hemoglobin (Bld) [Mass/Vol] 7.5 g/dL Critically low 12.0-16.0 [facility] Comment on above: Performed By: #### C BC ####[facility] Ovrgnydqou2521 [place] [phone]. Kalie Bess IG # 0.37 10e3/ul Critically high 0.00-0.03 [facility] Comment on above: Performed By: #### C BC ####[facility] Vthyviusek[address] [place], [place] [id number]. Kalie Bess IG % 2.1 % Critically high 0.0-0.5 [facility] Comment on above: Performed By: #### C BC ####[facility] Abibajwwcg7333 [place] [phone]. Kalie Bess LYMPH # 3.3 103/ul Normal 1.2-3.8 [facility] Comment on above: Performed By: #### C BC ####[facility] Oetgxbtoxu1598 [place], [place] [address]Uh. Kalie Shahriar Lymphocytes/100 WBC (Bld) 18.8 % Critically low 20.5-60.0 [facility] Comment on above: Performed By: #### C BC ####[facility] Mblpvnezsh2196 [place] [phone]. Shayyroxie Bess MANUAL DIFF REQ NO Normal [facility] Comment on above: Performed By: #### C BC ####[facility] Fpoygssfak1542 [place] [phone]. Kalie Shahriar MCH (RBC) [Entitic mass] 28.8 pg Normal 26.7-34.0 [facility] Comment on above: Performed By: #### C BC ####[facility] Lcgrsowtni4484 [place] [phone]. Kalie Bess MCHC (RBC) [Mass/Vol] 30.4 g/dL Normal 29.9-35.2 [facility] Comment on above: Performed By: #### C BC ####[facility] Ecmijwwnem7816 [place] [phone]. Kalie Bess MCV (RBC) [Entitic vol] 95.0 fL Normal 81.0-99.0 [facility] Comment on above: Performed By: #### C BC ####[facility] Brjekiwffv0036 [place] [address]Dr. Kalie Shahriar MONO # 0.9 103/ul Critically high 0.3-0.8 [facility] Comment on above: Performed By: #### C BC ####[facility] Dhfgiqsawr1151 [place] [address]Dr. Kalie Bess Monocytes/100 WBC (Bld) 5.1 % Normal 1.7-12.0 [facility] Comment on above: Performed By: #### C BC ####[facility] Uybbwbczpx7898 [place] [address]Dr. Kalie Bess NEUT # 12.3 103/ul Critically high 1.4-6.5 [facility] Comment on above: Performed By: #### C BC ####[facility] Vndhmccrsn3318 [place] [phone]. Kalie Bess Neutrophils/100 WBC (Bld) 71.4 % Normal 43.0-75.0 [facility] Comment on above: Performed By: #### C BC ####[facility] Ycdybwwjec2882 [place] [phone]. Kalie Bess Platelet mean volume (Bld) [Entitic vol] 10.7 fL Normal 9.5-13.5 [facility] Comment on above: Performed By: #### C BC ####[facility] Ucrcrqifro7030 [place] [phone]. Kalie Bess PLT 268 103/ul Normal 150-450 [facility] Comment on above: Performed By: #### C BC ####[facility] Socdwbfdix5762 [place] [phone]. Kalie Bess RBC 2.60 106/ul Critically low 4.20-5.40 [facility] Comment on above: Performed By: #### C BC ####[facility] Yvlurjaslt1329 [place] [address]Dr. Kalie Bess WBC 17.3 103/ul Critically high 4.0-11.0 [facility] Comment on above: Performed By: #### C BC ####[facility] Jxshisnzhc6867 [place] [phone]. Kalie Bess CBC W MANUAL DIFFon 11-29-19 23 ATYPICAL LYMPH # 0.00 103/ul Normal [facility] Comment on above: Performed By: #### C BCMAN ####[facility] Jxcuuosphb9045 [place] [phone]. Kalie Bess ATYPICAL LYMPH % 0 % Normal [facility] Comment on above: Performed By: #### C BCMAN ####[facility] Soewxmltph0348 [place] [address]Dr. Yilan Bess BAND # 0.2 103/ul Normal 0.0-0.3 [facility] Comment on above: Performed By: #### C BCGABRIELLA ####[facility] Drmmspmdvv9602 [place] [address]Dr. Shayylan Bess BAND % 1 % Normal 0-5 [facility] Comment on above: Performed By: #### C BCGABRIELLA ####[facility] Chhzsvexva1845 [place] [address]Dr. Yilan Bess BASOM # 0.00 103/ul Normal 0.00-0.10 [facility] Comment on above: Performed By: #### C NANCY ####[facility] Svhwvuubly[address] [place], [place] [address]Dr. Kalie Bess BASOM % 0.0 % Critically low 0.2-2.0 [facility] Comment on above: Performed By: #### C NANCY ####[facility] Ciinxacqdd85[address] [place], [place] [address]Dr. Yilan Bess BLAST # Normal [facility] Comment on above: Performed By: #### C NANCY ####[facility] Yyrsjujvyn[address] [place], [place] [address]Dr. Yilan Bess BLAST % Normal [facility] Comment on above: Performed By: #### C NANCY ####[facility] Wwvpltpzbo2276 [place] [address]Dr. Kalie Bess CORRECTED WBC Normal 4.0-11.0 [facility] Comment on above: Performed By: #### C BCGABRIELLA ####[facility] Ugwekvbmja5927 [place] [address]Dr. Yiroxie Bess EOS # 0.78 103/ul Critically high 0.00-0.70 [facility] Comment on above: Performed By: #### C BCGABRIELLA ####[facility] Ayhlxidcmk[address] [place], [place] [address]Dr. Yiroxie Bess EOS% 4.0 % Normal 0.9-7.0 [facility] Comment on above: Performed By: #### C NANCY ####[facility] Dlzsryyqzw6107 [place], [place] [address]Mt. Kalie Bses HCT 24.8 % Critically low 36.0-48.0 The [facility] Comment on above: Performed By: #### C NANCY ####[facility] Llfcqevjxv8250 [place], [place] [address]Bj. Kalie Bess HGB 7.4 g/dl Critically low 12.0-16.0 [facility] Comment on above: Performed By: #### C NANCY ####[facility] Jnqvtognij5455 [place], [place] [address]Ny. Kalie Bess HYPOCHROMASIA 1+ Normal [facility] Comment on above: Performed By: #### C NANCY ####[facility] Ohvseqgmuo0988 [place], [place] [address]Pd. Kalie Bess LYMPHM # 1.94 103/ul Normal 1.20-3.80 [facility] Comment on above: Performed By: #### C NANCY ####[facility] Vmrzjqiamh4923 [place] [phone]. Kalie Bess LYMPHM% 10.0 % Critically low 20.5-60.0 [facility] Comment on above: Performed By: #### C NANCY ####[facility] Ywfnlhmdrm0918 [place], [place] [address]Dc. Kalie Bess MCH 28.8 pg Normal 26.7-34.0 [facility] Comment on above: Performed By: #### C NANCY ####[facility] Mdplhluolt0948 [place], [place] [address]Ky. Kalie Bess MCHC 29.8 g/dl Critically low 29.9-35.2 [facility] Comment on above: Performed By: #### C NANCY ####[facility] Axmrumnogq4805 [place] [phone]. Kalie Bess MCV 96.5 fL Normal 81.0-99.0 [facility] Comment on above: Performed By: #### Marisela CRUZ ####[facility] Juexfloenk4232 [place] [phone]. Kalie Bess METAMYELOCYTE # Normal [facility] Comment on above: Performed By: #### C NANCY ####[facility] Nqiqdapguj6098 [place] [phone]. Kalie Bess METAMYELOCYTE % Normal [facility] Comment on above: Performed By: #### C NANCY ####[facility] Rfhhbpjazj4729 [place] [phone]. Kalie Bess MICROCYTOSIS SLIGHT Normal [facility] Comment on above: Performed By: #### C NANCY ####[facility] Nuekujmzvy2557 [place] [address]Dr. Kalie Bess MONOM# 0.97 103/ul Critically high 0.30-0.80 [facility] Comment on above: Performed By: #### C NANCY ####[facility] Gfwexqyqga7242 [place] [address]Dr. Kalie Bess MONOM% 5.0 % Normal 1.7-12.0 [facility] Comment on above: Performed By: #### C NANCY ####[facility] Avjkxkrotx2549 [place] [address]Dr. Kalie Shahriar MPV 10.9 fL Normal 9.5-13.5 [facility] Comment on above: Performed By: #### C NANCY ####[facility] Vnkjvwrvjl0069 [place] [address]Dr. Klaie Bess MYELOCYTE # Normal [facility] Comment on above: Performed By: #### Marisela CRUZ ####[facility] Rllgpqikpg2028 [place] [phone]. Kalie Bess MYELOCYTE % Normal [facility] Comment on above: Performed By: #### C NANCY ####[facility] [address]atsmftgip[address] [place], [place] [address]Dr. Kalie Bess NRBC Normal [facility] Comment on above: Performed By: #### C NANCY ####[facility] Yfjyurgcxx1550 [place] [phone]. Kalie Bess PLT 271 103/ul Normal 150-450 [facility] Comment on above: Performed By: #### C NANCY ####[facility] Mtmbdencdy6709 [place], [place] [address]Xe. Kalie Bess RBC 2.57 106/ul Critically low 4.20-5.40 [facility] Comment on above: Performed By: #### C NANCY ####[facility] Pdmfbjwkqz8501 [place], [place] [address]Rv. Kalie Bess RDW 14.1 % Normal 11.0-15.0 [facility] Comment on above: Performed By: #### C NANCY ####[facility] Kvzijcfmka5234 [place], [place] [address]Lf. Kalie Bess SEG # 15.52 103/ul Critically high 1.40-6.50 [facility] Comment on above: Performed By: #### C NANCY ####[facility] Duihkuplng0666 [place] [phone]. Kalie Bess SEG % 80.0 % Critically high 43.0-75.0 [facility] Comment on above: Performed By: #### C NANCY ####[facility] Imxofbickf7542 [place], [place] [address]Hc. Kalie Bess STOMATOCYTES SLIGHT Normal [facility] Comment on above: Performed By: #### C NANCY ####[facility] Uogbvqnopt6870 [place], [place] [address]Wx. Kalie Bess WBC 19.4 103/ul Critically high 4.0-11.0 [facility] Comment on above: Performed By: #### C NANCY ####[facility] Bgyaioaggs0001 [place], [place] [address]Ux. Kalie Bess CRPon 11-29-2022 CRP 5.7 mg/dL Critically high <=1.0 [facility] Comment on above: Performed By: #### C MP, CRP ####[facility] Wshhxrtdob3883 [place] [phone]. Kalie Bess POINT OF CARE GLUCOSEon Glucose [Mass/Vol] 225 mg/dL Critically high 74-106 [facility] Comment on above: Performed By: #### P OCGLUC ####[facility] Vpsdcvwxvx8302 [place] [phone]. Kalie Bess Glucose [Mass/Vol] 144 mg/dL Critically high 74-106 [facility] Comment on above: Performed By: #### P OCGLUC ####[facility] Uzfynycxlt7548 [place] [phone]. Shayyroxie Shahriar Glucose [Mass/Vol] 243 mg/dL Critically high 74-106 [facility] Comment on above: Performed By: #### P OCGLUC ####[facility] Wcmhmljenc7969 [place] [address]Dr. Kalie Bess Glucose [Mass/Vol] 214 mg/dL Critically high 74-106 [facility] Comment on above: Performed By: #### P OCGLUC ####[facility] Iqwpqjrwow2331 [place] [address]Dr. Kalie Bess PROF 14(COMP METB)on 023 Albumin [Mass/Vol] 1.5 g/dL Critically low 3.4-5.[address] [facility] Comment on above: Performed By: #### C MP, CRP ####[facility] Istriphnhp2119 [place] [address]Dr. Kalie Bess Albumin/Globulin [Mass ratio] 0.4 {ratio} Normal [facility] Comment on above: Performed By: #### C MP, CRP ####[facility] Mhmakkmeow8524 [place] [address]Dr. Kalie Bess ALP [Catalytic activity/Vol] 117 U/L Critically high 46-116 [facility] Comment on above: Performed By: #### C MP, CRP ####[facility] Mexopgucrc8593 [place] [address]Dr. Kalie Bess ALT [Catalytic activity/Vol] 21 U/L Normal 14-59 [facility] Comment on above: Performed By: #### C MP, CRP ####[facility] Fsxlryyhfz5637 [place] [phone]. Kalie Bess Anion gap [Moles/Vol] 9.7 mmol/L Normal [facility] Comment on above: Performed By: #### C MP, CRP ####[facility] Mucfxbegfg5649 [place] [address]Dr. Kalie Bess AST [Catalytic activity/Vol] 16 U/L Normal 15-37 [facility] Comment on above: Performed By: #### C MP, CRP ####[facility] [address]qtrnft[address] [place] [address]Dr. Kalie Shahriar Bilirubin [Mass/Vol] 0.2 mg/dL Normal 0.2-1.0 [facility] Comment on above: Performed By: #### C MP, CRP ####[facility] Hxqltlydhb[address] [place], [place] [address]Dr. Kalie Bess Calcium [Mass/Vol] 7.8 mg/dL Critically low 8.5-10.[address] [facility] Comment on above: Performed By: #### C MP, CRP ####[facility] Uroitvvgii66[address] [place], [place] [address]Dr. Kalie Shahriar Chloride [Moles/Vol] 102 mmol/L Normal 98-107 [facility] Comment on above: Performed By: #### C MP, CRP ####[facility] Kukykoucgm9[address] [place], [place] [address]Dr. Kalie Shahriar CO2 [Moles/Vol] 28.4 mmol/L Normal 21.0-32.0 [facility] Comment on above: Performed By: #### C MP, CRP ####[facility] Yksicxmehi8139[address] [place], [place] [address]Dr. Kalie Shahriar Creatinine [Mass/Vol] 1.85 mg/dL Critically high 0.55-1.02 [facility] Comment on above: Performed By: #### C MP, CRP ####[facility] Muvmeplqmu550[address] [place], [place] [address]Dr. Shayyroxie Shahriar EGFR-AF [place]IZEN OF [place] 35 mL/min/1.73m2 Critically low >=60 [facility] Comment on above: Performed By: #### C MP, CRP ####[facility] Lflhvaztvx833[address] [place], [place] [address]Dr. Kalie Bess EGFR-NON AF CITIZEN OF [place] 29 mL/min/1.73m2 Critically low >=60 [facility] Comment on above: Performed By: #### C MP, CRP ####[facility] [address]vrnltp[address] [place] [address]Dr. Kalie Bess Globulin (S) [Mass/Vol] 4.2 g/dL Normal [facility] Comment on above: Performed By: #### C MP, CRP ####[facility] Vltfqhvlxf[address] [place] [address]Dr. Kalie Bess Glucose [Mass/Vol] 250 mg/dL Critically high 74-106 T [facility] Comment on above: Performed By: #### C MP, CRP ####[facility] Sdrjqcsgzv434[address] [place], [place] [address]Dr. Kalie Bess Potassium [Moles/Vol] 4.1 mmol/L Normal 3.5-5.1 [facility] Comment on above: Performed By: #### C MP, CRP ####[facility] Xlxswkwzfn164[address] [place], [place] [address]Dr. Kalie Bess Protein [Mass/Vol] 5.7 g/dL Critically low 6.4-8.[address] [facility] Comment on above: Performed By: #### C MP, CRP ####[facility] Fvrbrfonsy44[address] [place], [place] [address]Dr. Kalie Bess Sodium [Moles/Vol] 136 mmol/L Normal 136-145 [facility] Comment on above: Performed By: #### C MP, CRP ####[facility] Owmpyssgyj23[address] [place] [address]Dr. Kalie Bess Urea nitrogen [Mass/Vol] 17.0 mg/dL Normal 7.0-18.0 [facility] Comment on above: Performed By: #### C MP, CRP ####[facility] Aqzbaduqdp464[address] [place], [place] [address]Dr. Kalie Bess Urea nitrogen/Creatinine [Mass ratio] 9.2 mg/mg Normal [facility] Comment on above: Performed By: #### C MP, CRP ####[facility] Lcbnoprmhg5[address] [place] [address]Dr. Kalie Bess SED RATE WESTERGRENon 2022 SED RATE 63 mm/hr Critically high <=30 [facility] Comment on above: Performed By: #### S EDR ####[facility] Oqlidbeufm929[address] [place], [place] [address]Dr. Kalie Bess TYPE AND SCREENon 11-29-2022 TYPE AND SCREEN Negative Normal [facility] Comment on above: Performed By: #### T NS ####[facility] Qzbbxighdx886[address] [place], [place] [address]Dr. Kalie Bess CBC W MANUAL DIFFon 11-28-19 23 ANISOCYTOSIS SLIGHT Normal [facility] Comment on above: Performed By: #### C BCMAN ####[facility] Zjxcupjoiy916[address] [place], [place] [address]Dr. Kalie Bess ATYPICAL LYMPH # 0.37 103/ul Normal [facility] Comment on above: Performed By: #### C BCMAN ####[facility] Fkeouzrikh045[address] [place], [place] [address]Dr. Kalie Bess ATYPICAL LYMPH % 2 % Normal [facility] Comment on above: Performed By: #### C BCMAN ####[facility] Gjatdlwxcf017387 [address] [place], [place] [address]Dr. Kalie Bess BAND # 0.6 103/ul Critically high 0.0-0.3 [facility] Comment on above: Performed By: #### C BCMAN ####[facility] Mzcousefkq1234[address] [place], [place] [address]Dr. Kalie Bess BAND % 3 % Normal 0-5 [facility] Comment on above: Performed By: #### C BCMAN ####[facility] Adqisgyyrd556[address] [place], [place] [address]Dr. Kalie Bess BASOM # 0.00 103/ul Normal 0.00-0.10 [facility] Comment on above: Performed By: #### C BCMAN ####[facility] Uflfrxotye033[address] [place], [place] [address]Dr. Kalie Bess BASOM % 0.0 % Critically low 0.2-2.0 [facility] Comment on above: Performed By: #### C NANCY ####[facility] Qmhbygiqux0[address] [place] [address]Dr. Kalie Bess BLAST # Normal [facility] Comment on above: Performed By: #### C NANCY ####[facility] Wjptrmctjh8836 [place] [phone]. Kalie Bess BLAST % Normal [facility] Comment on above: Performed By: #### C NANCY ####[facility] Whqpbijpnw350[address] [place], [place] [address]Dr. Kalie Bess CORRECTED WBC Normal 4.0-11.0 [facility] Comment on above: Performed By: #### C NANCY ####[facility] Bdqtqgfanr455587 [address] [place], [place] [address]Dr. Kalie Bess EOS # 0.56 103/ul Normal 0.00-0.70 [facility] Comment on above: Performed By: #### Marisela CRUZ ####[facility] Zdyjkorrdo9019[address] [place], [place] [address]Dr. Kalie Bess EOS% 3.0 % Normal 0.9-7.0 [facility] Comment on above: Performed By: #### Marisela CRUZ ####[facility] Hgzeqinawd157[address] [place], [place] [address]Dr. Kalie Bess HCT 27.8 % Critically low 36.0-48.0 [facility] Comment on above: Performed By: #### Marisela CRUZ ####[facility] Tzcshobpgk774[address] [place], [place] [address]Dr. Kalie Bess HGB 8.9 g/dl Critically low 12.0-16.0 [facility] Comment on above: Performed By: #### C NANCY ####[facility] Qpxxezwtus4469[address] [place], [place] [address]Dr. Kalie Bess HYPOCHROMASIA 1+ Normal [facility] Comment on above: Performed By: #### C NANCY ####[facility] Whaofinzmh45668[address] [place], [place] [address]Dr. Kalie Bess LYMPHM # 2.99 103/ul Normal 1.20-3.80 [facility] Comment on above: Performed By: #### C NANCY ####[facility] Rqbeszfqda0886 [place] [phone]. Kalie Bess LYMPHM% 16.0 % Critically low 20.5-60.0 [facility] Comment on above: Performed By: #### C NANCY ####[facility] Jolzcslmqz4461 [place] [phone]. Kalie Bess MCH 28.8 pg Normal 26.7-34.0 [facility] Comment on above: Performed By: #### C NANCY ####[facility] Bquyuusacv9[address] [place] [address]Dr. Kalie Bess MCHC 32.0 g/dl Normal 29.9-35.2 [facility] Comment on above: Performed By: #### C NANCY ####[facility] Irrxyjamvy5172 [place] [address]Dr. Kalie Bess MCV 90.0 fL Normal 81.0-99.0 [facility] Comment on above: Performed By: #### C NANCY ####[facility] Hnkdsdfgak690[address] [place], [place] [address]Dr. Kalie Bess METAMYELOCYTE # Normal [facility] Comment on above: Performed By: #### C NANCY ####[facility] Fwpbzlyztm1524 [place] [phone]. Kalie Bess METAMYELOCYTE % Normal [facility] Comment on above: Performed By: #### C NANCY ####[facility] Aobxvsragg4689 [place] [phone]. Kalie Bess MONOM# 0.94 103/ul Critically high 0.30-0.80 [facility] Comment on above: Performed By: #### C NANCY ####[facility] Vyxlogbjwu5733 [place] [phone]. Kalie Bess MONOM% 5.0 % Normal 1.7-12.0 [facility] Comment on above: Performed By: #### C NANCY ####[facility] Nwabfjjnbu4932 [place], [place] [address]Ut. Kalie Bess MPV 10.4 fL Normal 9.5-13.5 [facility] Comment on above: Performed By: #### C NANCY ####[facility] Oaoymcrmpg2687 [place], [place] [address]Bg. Kalie Bess MYELOCYTE # Normal [facility] Comment on above: Performed By: #### C NANCY ####[facility] Rmhswnavsg0158 [place] [phone]. Kalie Bess MYELOCYTE % Normal [facility] Comment on above: Performed By: #### C NANCY ####[facility] Bokyflotyw5025 [place] [phone]. Kalie Bess NRBC Normal [facility] Comment on above: Performed By: #### C NANCY ####[facility] Kptkehrinl9744 [place] [phone]. Kalie Bess PLT 285 103/ul Normal 150-450 [facility] Comment on above: Performed By: #### C NANCY ####[facility] Bojjrzoldj5506 [place] [phone]. Kalie Bess RBC 3.09 106/ul Critically low 4.20-5.40 [facility] Comment on above: Performed By: #### Marisela CRUZ ####[facility] Krlkxopyxd7121 [place] [phone]. Kalie Bess RDW 13.6 % Normal 11.0-15.0 [facility] Comment on above: Performed By: #### C NANCY ####[facility] Djxvdqjbhm3693 [place], [place] [address]Qk. Kalie Bess SEG # 13.28 103/ul Critically high 1.40-6.50 [facility] Comment on above: Performed By: #### C NANCY ####[facility] Risjpbrbgi1985 [place] [phone]. Kalie Bess SEG % 71.0 % Normal 43.0-75.0 [facility] Comment on above: Performed By: #### C NANCY ####[facility] Jrpitpxuip6974 [place] [phone]. Kalie Bess WBC 18.7 103/ul Critically high 4.0-11.0 [facility] Comment on above: Performed By: #### C BCMAN ####[facility] Dsmkbqwnfe0940 [place] [phone]. Kalie Shahriar CRPon 11-28-2022 CRP 4.6 mg/dL Critically high <=1.0 [facility] Comment on above: Performed By: #### C MP, CRP ####[facility] Jbwoikiiai5128 [place] [phone]. Kalie Bess CULTURE ANAEROBICon 11-28-19 23 CULTURE ANAEROBIC Culture Observations : NO GROWTH OF ANAEROBES AT 72 HOURS. Normal [facility] Comment on above: Performed By: #### A NACX ####[facility] Llkdqbjoaj2[address] [place], [place] [address]Dr. Kalie Bess CULTURE OTHERon 11-28-2022 CULTURE OTHER Culture Observations : NO GROWTH OF AEROBES AT 48 HOURS. Normal [facility] Comment on above: Performed By: #### O THCX ####[facility] Hllzdqnfzj12[address] [place], [place] [address]Dr. Kalie Bess GRAM STAINon 11-28-2022 COMMENTS NO ORGANISMS OBSERVED Normal [facility] Comment on above: Performed By: #### G STAIN ####[facility] Ehrvifabdk72[address] [place], [place] [address]Dr. Kalie Bess DIPHTHEROIDS Normal [facility] Comment on above: Performed By: #### G STAIN ####[facility] Bmcsimzfvd734[address] [place], [place] [address]Dr. Kalie Bess EPITHELIALS FEW Normal [facility] Comment on above: Performed By: #### G STAIN ####[facility] Griqaxccyg3167[address] [place], [place] [address]Dr. Kalie Bess FUNGAL ELEMENTS Normal [facility] Comment on above: Performed By: #### G STAIN ####[facility] Juttdffbif774[address] [place], [place] [address]Dr. Kalie Bess GRAM NEG BACILLI Normal [facility] Comment on above: Performed By: #### G STAIN ####[facility] Wjkgvdlrsr77[address] [place] [address]Dr. Kalie Bess GRAM NEG DIPPLOCOCCI Normal [facility] Comment on above: Performed By: #### G STAIN ####[facility] Ecnhjsacok40[address] [place] [address]Dr. Kalie Bess GRAM POS BACILLI Normal [facility] Comment on above: Performed By: #### G STAIN ####[facility] Gddlmpbmps0726 [place] [address]Dr. Kalie Bess GRAM POSITIVE COCCI Normal [facility] Comment on above: Performed By: #### G STAIN ####[facility] Mcmiyqcyga0508 [place] [address]Dr. Kalie Bess GRAM STAIN SOURCE l. breast abcess Normal [facility] Comment on above: Performed By: #### G STAIN ####[facility] Htoacsadpr994[address] [place], [place] [address]Dr. Kalie Bess GS_DIPTH Normal [facility] Comment on above: Performed By: #### G STAIN ####[facility] Mdxqocttpy[address] [place], [place] [address]Dr. Kalie Bess WBC RARE Normal [facility] Comment on above: Performed By: #### G STAIN ####[facility] Xfbtmotqxm5706 [place] [address]Dr. Kalie Bess POINT OF CARE GLUCOSEon Glucose [Mass/Vol] 151 mg/dL Critically high 74-106 [facility] Comment on above: Performed By: #### P OCGLUC ####[facility] Ocqsmlagcr9766 [place] [address]Dr. Kalie Bess Glucose [Mass/Vol] 159 mg/dL Critically high 74-106 [facility] Comment on above: Performed By: #### P OCGLUC ####[facility] Dbhijzjjbi8546 [place] [address]Dr. Kalie Bess PROF 14(COMP METB)on 023 Albumin [Mass/Vol] 1.7 g/dL Critically low 3.4-5.[address] [facility] Comment on above: Performed By: #### C MP, CRP ####[facility] Xcqymgrkmb9330 [place] [address]Dr. Kalie Bess Albumin/Globulin [Mass ratio] 0.4 {ratio} Normal [facility] Comment on above: Performed By: #### C MP, CRP ####[facility] Xgcrczamhf2278 [place] [address]Dr. Kalie Bess ALP [Catalytic activity/Vol] 133 U/L Critically high 46-116 [facility] Comment on above: Performed By: #### C MP, CRP ####[facility] Nnsdtbuegk0295 [place] [address]Dr. Kalie Bess ALT [Catalytic activity/Vol] 23 U/L Normal 14-59 [facility] Comment on above: Performed By: #### C MP, CRP ####[facility] Xaygowuocz736[address] [place], [place] [address]Dr. Kalie Bess Anion gap [Moles/Vol] 9.3 mmol/L Normal [facility] Comment on above: Performed By: #### C MP, CRP ####[facility] Hgrtlsmvdr518[address] [place], [place] [address]Dr. Kalie Bess AST [Catalytic activity/Vol] 17 U/L Normal 15-37 [facility] Comment on above: Performed By: #### C MP, CRP ####[facility] Xqfsdbppas7[address] [place], [place] [address]Dr. Kalie Bess Bilirubin [Mass/Vol] 0.3 mg/dL Normal 0.2-1.0 [facility] Comment on above: Performed By: #### C MP, CRP ####[facility] Nbsudqmyva8407 [place] [address]Dr. Kalie Bess Calcium [Mass/Vol] 8.4 mg/dL Critically low 8.5-10.[address] [facility] Comment on above: Performed By: #### C MP, CRP ####[facility] Naehcknvvt456[address] [place], [place] [address]Dr. Kalie Bess Chloride [Moles/Vol] 104 mmol/L Normal 98-107 [facility] Comment on above: Performed By: #### C MP, CRP ####[facility] Lcfctfduaw4869 [place] [address]Dr. Kalie Bess CO2 [Moles/Vol] 29.2 mmol/L Normal 21.0-32.0 [facility] Comment on above: Performed By: #### C MP, CRP ####[facility] Vwbqyqroel7177 [place] [address]Dr. Kalie Bess Creatinine [Mass/Vol] 1.12 mg/dL Critically high 0.55-1.02 [facility] Comment on above: Performed By: #### C MP, CRP ####[facility] Jihfmpqhle6136 [place] [address]Dr. Kalie Bess EGFR-AF [place]IZ[place] OF [place] >60 Normal >=60 [facility] Comment on above: Performed By: #### C MP, CRP ####[facility] Pbmpeouknw2658 [place] [address]Dr. Kalie Bess EGFR-NON AF [place]IZEN OF [place] 51 mL/min/1.73m2 Critically low >=60 [facility] Comment on above: Performed By: #### C MP, CRP ####[facility] Acewvdivwj5031 [place] [address]Dr. Kalie Bess Globulin (S) [Mass/Vol] 4.5 g/dL Normal [facility] Comment on above: Performed By: #### C MP, CRP ####[facility] Khfmmcfriz6537 [place] [address]Dr. Kalie Bess Glucose [Mass/Vol] 85 mg/dL Normal 74-106 [facility] Comment on above: Performed By: #### C MP, CRP ####[facility] Byvjdtoepr0648 [place] [address]Dr. Kalie Bess Potassium [Moles/Vol] 3.5 mmol/L Normal 3.5-5.1 [facility] Comment on above: Performed By: #### C MP, CRP ####[facility] Gssjvucdna4690 [place] [address]Dr. Kalie Bess Protein [Mass/Vol] 6.2 g/dL Critically low 6.4-8.2 Th e [facility] Comment on above: Performed By: #### C MP, CRP ####[facility] Tftllhpiao8213 [place] [phone]. Kalie Bess Sodium [Moles/Vol] 139 mmol/L Normal 136-145 [facility] Comment on above: Performed By: #### C MP, CRP ####[facility] Eigvpcplpn5848 [place] [address]Dr. Kalie Bess Urea nitrogen [Mass/Vol] 12.0 mg/dL Normal 7.0-18.0 [facility] Comment on above: Performed By: #### C MP, CRP ####[facility] Vpxyuozpji813[address] [place], [place] [address]Dr. Kalie Bess Urea nitrogen/Creatinine [Mass ratio] 10.7 mg/mg Normal [facility] Comment on above: Performed By: #### C MP, CRP ####[facility] Hvwfjinxkg265[address] [place], [place] [address]Dr. Kalie Bess SED RATE WESTERGRENon 2022 SED RATE >130 Critically high <=30 [facility] Comment on above: Performed By: #### S EDR ####[facility] Ccwviodeef15[address] [place], [place] [address]Dr. Kalie Bess CBC AUTO DIFFon 11-27-2022 BASO # 0.1 103/ul Normal 0.0-0.1 [facility] Comment on above: Performed By: #### C BC ####[facility] Lxqzrlymoz16[address] [place] [address]Dr. Kalie Shahriar Basophils/100 WBC (Bld) 0.6 % Normal 0.2-2.0 [facility] Comment on above: Performed By: #### C BC ####[facility] Oofprdhogs2131 [place] [address]Dr. Kalie Shahriar EO # 0.5 103/ul Normal 0.0-0.7 [facility] Comment on above: Performed By: #### C BC ####[facility] Yandhhxexr7556 [place] [phone]. Kalie Bess Eosinophils/100 WBC (Bld) 2.8 % Normal 0.9-7.0 [facility] Comment on above: Performed By: #### C BC ####[facility] Aqmnfyeodc9740 [place] [phone]. Kalie Bess Erythrocyte distribution width (RBC) [Ratio] 14.1 % Normal 11.0-15.0 [facility] Comment on above: Performed By: #### C BC ####[facility] Mfsigbtcsg5348 [place] [phone]. Kalie Bess Hematocrit (Bld) [Volume fraction] 27.3 % Critically low 36.0-48.0 [facility] Comment on above: Performed By: #### C BC ####[facility] Zpmjvvzogp2274 [place] [address]Dr. Kalie Bess Hemoglobin (Bld) [Mass/Vol] 8.4 g/dL Critically low 12.0-16.0 [facility] Comment on above: Performed By: #### C BC ####[facility] Smzhbnuuvr3003 [place] [phone]. Kalie Bess IG # 1.53 10e3/ul Critically high 0.00-0.03 [facility] Comment on above: Performed By: #### C BC ####[facility] Sfwwoynhaq6248 [place] [phone]. Kalie Bess IG % 8.9 % Critically high 0.0-0.5 [facility] Comment on above: Performed By: #### C BC ####[facility] Bpobyxddie8737 [place] [phone]. Kalie Bess LYMPH # 3.8 103/ul Normal 1.2-3.8 [facility] Comment on above: Performed By: #### C BC ####[facility] Bfimwlfoku0511 [place] [phone]. Kalie Bess Lymphocytes/100 WBC (Bld) 21.8 % Normal 20.5-60.0 [facility] Comment on above: Performed By: #### C BC ####[facility] Tzqjvagqcl3646 [place] [address]Dr. Kalie Bess MANUAL DIFF REQ NO Normal [facility] Comment on above: Performed By: #### C BC ####[facility] Ounxogawpj5056 [place] [phone]. Kalie Bess MCH (RBC) [Entitic mass] 29.2 pg Normal 26.7-34.0 [facility] Comment on above: Performed By: #### C BC ####[facility] Wnimgagpcm9[address] [place], [place] [id number]. Kalie Bess MCHC (RBC) [Mass/Vol] 30.8 g/dL Normal 29.9-35.2 [facility] Comment on above: Performed By: #### C BC ####[facility] Gjjpzduoae4250[address] [place], [place] [address]Dr. Kalie Bess MCV (RBC) [Entitic vol] 94.8 fL Normal 81.0-99.0 [facility] Comment on above: Performed By: #### C BC ####[facility] R[address]fdaeclp34[address] [place], [place] [address]Dr. Kalie Bess MONO # 1.3 103/ul Critically high 0.3-0.8 [facility] Comment on above: Performed By: #### C BC ####[facility] Rwdjaiqbcv09[address] [place], [place] [address]Dr. Kalie Bess Monocytes/100 WBC (Bld) 7.7 % Normal 1.7-12.0 [facility] Comment on above: Performed By: #### C BC ####[facility] Klkupnkoci2160 [place] [phone]. Shayyroxie Bess NEUT # 10.0 103/ul Critically high 1.4-6.5 [facility] Comment on above: Performed By: #### C BC ####[facility] Tfxjhghfle[address] [place], [place] [id number]. Kalie Bess Neutrophils/100 WBC (Bld) 58.2 % Normal 43.0-75.0 [facility] Comment on above: Performed By: #### C BC ####[facility] Jvxgssgxpy6664 [place] [phone]. Kalie Bess Platelet mean volume (Bld) [Entitic vol] 11.2 fL Normal 9.5-13.5 [facility] Comment on above: Performed By: #### C BC ####[facility] Sayhldjnqg3410 [place] [phone]. Kalie Bess PLT 278 103/ul Normal 150-450 [facility] Comment on above: Performed By: #### C BC ####[facility] Daaehdxqbz5297 [place] [address]Dr. Kalie Bess RBC 2.88 106/ul Critically low 4.20-5.40 [facility] Comment on above: Performed By: #### C BC ####[facility] Awobpgmnbr2066 [place] [address]Dr. Kalie Bess WBC 17.2 103/ul Critically high 4.0-11.0 [facility] Comment on above: Performed By: #### C BC ####[facility] Gonrorxwkn44[address] [place], [place] [address]Dr. Kalie Bess CRPon 11-27-2022 CRP 5.4 mg/dL Critically high <=1.0 [facility] Comment on above: Performed By: #### C RP, CMP ####[facility] Idwiazzywx4[address] [place], [place] [address]Dr. Kalie Bess POINT OF CARE GLUCOSEon -0 Glucose [Mass/Vol] 379 mg/dL Critically high 74-106 [facility] Comment on above: Performed By: #### P OCGLUC ####[facility] Sxaqewcitl8605 [place] [address]Dr. Kalie Bess Glucose [Mass/Vol] 232 mg/dL Critically high 74-106 [facility] Comment on above: Performed By: #### P OCGLUC ####[facility] Ozbotomhkb9922 [place] [address]Dr. Kalie Bess Glucose [Mass/Vol] 216 mg/dL Critically high -106 [facility] Comment on above: Performed By: #### P OCGLUC ####[facility] Xwnlwybymh1658 [place] [address]Dr. Kalie Bess Glucose [Mass/Vol] 249 mg/dL Critically high 74-106 T [facility] Comment on above: Performed By: #### P OCGLUC ####[facility] Gysaxjrteg8018 [place] [address]Dr. Kalie Bess PROF 14(COMP METB)on 023 Albumin [Mass/Vol] 1.6 g/dL Critically low 3.4-5.[address] [facility] Comment on above: Performed By: #### C RP, CMP ####[facility] Ttbwatcsyq1802 [place] [address]Dr. Kalie Bess Albumin/Globulin [Mass ratio] 0.3 {ratio} Normal [facility] Comment on above: Performed By: #### C RP, CMP ####[facility] Bqjasdbecj74[address] [place], [place] [address]Dr. Kalie Bess ALP [Catalytic activity/Vol] 147 U/L Critically high 46-116 [facility] Comment on above: Performed By: #### C RP, CMP ####[facility] Ngvvqmcwsw0815 [place] [address]Dr. Kalie Bess ALT [Catalytic activity/Vol] 25 U/L Normal 14-59 [facility] Comment on above: Performed By: #### C RP, CMP ####[facility] Vphmuaitzx5011 [place] [address]Dr. Kalie Bess Anion gap [Moles/Vol] 9.9 mmol/L Normal [facility] Comment on above: Performed By: #### C RP, CMP ####[facility] Qxzyyovqlu2038 [place] [address]Dr. Kalie Bess AST [Catalytic activity/Vol] 16 U/L Normal 15-37 [facility] Comment on above: Performed By: #### C RP, CMP ####[facility] Scftcedain9790 [place] [address]Dr. Kalie Bess Bilirubin [Mass/Vol] 0.1 mg/dL Critically low 0.2-1.0 [facility] Comment on above: Performed By: #### C RP, CMP ####[facility] Aexjgbhknl29[address] [place], [place] [address]Dr. Kalie Bess Calcium [Mass/Vol] 8.2 mg/dL Critically low 8.5-10.[address] [facility] Comment on above: Performed By: #### C RP, CMP ####[facility] Jztydwtsnd3[address] [place], [place] [address]Dr. Kalie Bess Chloride [Moles/Vol] 101 mmol/L Normal 98-107 [facility] Comment on above: Performed By: #### C RP, CMP ####[facility] Ftooonznvj7285[address] [place], [place] [address]Dr. Kalie Bess CO2 [Moles/Vol] 27.1 mmol/L Normal 21.0-32.0 [facility] Comment on above: Performed By: #### C RP, CMP ####[facility] Msavcxwhun204[address] [place], [place] [address]Dr. Kalie Bess Creatinine [Mass/Vol] 1.16 mg/dL Critically high 0.55-1.02 [facility] Comment on above: Performed By: #### C RP, CMP ####[facility] Odzrxfexcv9[address] [place], [place] [address]Dr. Kalie Bess EGFR-AF [place]IZ[place] OF [place] 60 mL/min/1.73m2 Normal >=[address] [facility] Comment on above: Performed By: #### C RP, CMP ####[facility] Ufbabtcnbh329[address] [place], [place] [address]Dr. Kalie Bess EGFR-NON AF CITIZEN OF [place] 49 mL/min/1.73m2 Critically low >=60 [facility] Comment on above: Performed By: #### C RP, CMP ####[facility] Zncebzjbei9[address] [place], [place] [address]Dr. Kalie Bess Globulin (S) [Mass/Vol] 4.7 g/dL Normal [facility] Comment on above: Performed By: #### C RP, CMP ####[facility] Awwhsefrzp074[address] [place], [place] [address]Dr. Kalie Bess Glucose [Mass/Vol] 281 mg/dL Critically high 74-106 T [facility] Comment on above: Performed By: #### C RP, CMP ####[facility] Fiskviucdr9399 [place] [address]Dr. Kalie Bess Potassium [Moles/Vol] 4.0 mmol/L Normal 3.5-5.1 [facility] Comment on above: Performed By: #### C RP, CMP ####[facility] Heytnqpwrh9838 [place] [address]Dr. Kalie Bess Protein [Mass/Vol] 6.3 g/dL Critically low 6.4-8.[address] [facility] Comment on above: Performed By: #### C RP, CMP ####[facility] Mbmjfolfpp4208 [place] [address]Dr. Kalie Bess Sodium [Moles/Vol] 134 mmol/L Critically low 136-[address] [facility] Comment on above: Performed By: #### C RP, CMP ####[facility] Royofhigeu1736 [place] [address]Dr. Kalie Bess Urea nitrogen [Mass/Vol] 13.0 mg/dL Normal 7.0-18.0 [facility] Comment on above: Performed By: #### C RP, CMP ####[facility] Smoqwddjwq8342 [place] [address]Dr. Kalie Bess Urea nitrogen/Creatinine [Mass ratio] 11.2 mg/mg Normal [facility] Comment on above: Performed By: #### C RP, CMP ####[facility] Rwgvbrqvzz2379 [place] [address]Dr. Kalie Bess SED RATE WESTERGRENon 2022 SED RATE >130 Critically high <=30 [facility] Comment on above: Performed By: #### S EDR ####[facility] Xzethrnzoi7122 [place] [address]Dr. Kalie Bess US BREAST LEFT LIMITEDon US BREAST LEFT LIMITED Normal [facility] CBC W MANUAL DIFFon 11-26-19 23 ATYPICAL LYMPH # Normal [facility] Comment on above: Performed By: #### C NANCY ####[facility] Jjozfmfeqh0687 [place] [phone]. Shayylan Bess ATYPICAL LYMPH % Normal [facility] Comment on above: Performed By: #### C NANCY ####[facility] Bnxhhubiql1640 [place] [phone]. Yilan Bess BAND # 0.2 103/ul Normal 0.0-0.3 [facility] Comment on above: Performed By: #### C NANCY ####[facility] Vagqcswgbb8878 [place] [phone]. Yilan Bess BAND % 1 % Normal 0-5 [facility] Comment on above: Performed By: #### C NANCY ####[facility] Hhvoebtmsb2945 [place] [address]Dr. Kalie Bess BASOM # 0.00 103/ul Normal 0.00-0.10 [facility] Comment on above: Performed By: #### C NANCY ####[facility] Egrjugfmla4147 [place] [address]Dr. Kalie Bess BASOM % 0.0 % Critically low 0.2-2.0 [facility] Comment on above: Performed By: #### C NANCY ####[facility] Mxceymothn7146 [place] [phone]. Yiroxie Bess BLAST # Normal [facility] Comment on above: Performed By: #### C NANCY ####[facility] Mzxseyavds4298 [place] [address]Dr. Yilan Bess BLAST % Normal [facility] Comment on above: Performed By: #### C NANCY ####[facility] Nkqtwpvmwa2061 [place] [address]Dr. Kalie Bess CORRECTED WBC Normal 4.0-11.0 [facility] Comment on above: Performed By: #### C NANCY ####[facility] Zlpzckvcdt1705 [place] [phone]. Yilan Bess EOS # 0.17 103/ul Normal 0.00-0.70 [facility] Comment on above: Performed By: #### Marisela CRUZ ####[facility] Dmfxhsridq1661 [place], [place] [address]Uu. Kalie Bess EOS% 1.0 % Normal 0.9-7.0 [facility] Comment on above: Performed By: #### Marisela CRUZ ####[facility] Ziiwrpznys0649 [place], [place] [address]Rm. Kalie Bess HCT 29.0 % Critically low 36.0-48.0 [facility] Comment on above: Performed By: #### Marisela CRUZ ####[facility] Dtjhnhtckn4675 [place], [place] [address]Rl. Kalie Bess HGB 8.9 g/dl Critically low 12.0-16.0 [facility] Comment on above: Performed By: #### Marisela CRUZ ####[facility] Armawdjzrh2164 [place], [place] [address]Yp. Kalie Bess LYMPHM # 1.74 103/ul Normal 1.20-3.80 [facility] Comment on above: Performed By: #### Marisela CRUZ ####[facility] Vdjcqrakjv0442 [place], [place] [address]Ul. Kalie Bess LYMPHM% 10.0 % Critically low 20.5-60.0 [facility] Comment on above: Performed By: #### Marisela CRUZ ####[facility] Wgqqbsohxj7513 [place], [place] [address]Vf. Kalie Bess MCH 28.3 pg Normal 26.7-34.0 [facility] Comment on above: Performed By: #### Marisela CRUZ ####[facility] Vnhudzkkou0665 [place], [place] [address]Sw. Kalie Bess MCHC 30.7 g/dl Normal 29.9-35.2 [facility] Comment on above: Performed By: #### Marisela CRUZ ####[facility] Rmuvlqvnfl9637 [place], [place] [address]Mt. Kalie Bess MCV 92.1 fL Normal 81.0-99.0 [facility] Comment on above: Performed By: #### Marisela CRUZ ####[facility] Gbgxpigxve8840 [place] [phone]. Kalie Bess METAMYELOCYTE # Normal [facility] Comment on above: Performed By: #### C NANCY ####[facility] Favhpicyxc0936 [place] [phone]. Kalie Bess METAMYELOCYTE % Normal [facility] Comment on above: Performed By: #### C NANCY ####[facility] Gkrmpbbese1858 [place] [phone]. Kalie Bess MONOM# 0.87 103/ul Critically high 0.30-0.80 [facility] Comment on above: Performed By: #### C NANCY ####[facility] Dmspflzlia6246 [place] [address]Dr. Kalie Bess MONOM% 5.0 % Normal 1.7-12.0 [facility] Comment on above: Performed By: #### C NANCY ####[facility] Rehgubzptg8710 [place] [address]Dr. Kalie Bess MPV 11.5 fL Normal 9.5-13.5 [facility] Comment on above: Performed By: #### C NANCY ####[facility] Ovbhadtzcp44[address] [place], [place] [address]Dr. Kalie Bess MYELOCYTE # 0.3 103/ul Normal [facility] Comment on above: Performed By: #### C NANCY ####[facility] Frniqpcisr9251 [place] [address]Dr. Kalie Bess MYELOCYTE % 2 % Normal [facility] Comment on above: Performed By: #### C NANCY ####[facility] Xcyttsyhph3464 [place] [phone]. Kalie Bess NRBC Normal [facility] Comment on above: Performed By: #### C NANCY ####[facility] Mpenjdyojh1742 [place] [phone]. Kalie Bess PLT 275 103/ul Normal 150-450 [facility] Comment on above: Performed By: #### C NANCY ####[facility] Igbdmcmxub7644 [place] [phone]. Kalie Bess RBC 3.15 106/ul Critically low 4.20-5.40 [facility] Comment on above: Performed By: #### C NANCY ####[facility] Ezhznpfbtt0714 [place] [phone]. Kalie Bess RDW 14.4 % Normal 11.0-15.0 [facility] Comment on above: Performed By: #### C NANCY ####[facility] Wyomelhifw6648 [place] [phone]. Kalie Bess SEG # 14.09 103/ul Critically high 1.40-6.50 The [facility] Comment on above: Performed By: #### C NANCY ####[facility] Gwmccuulrk7747 [place] [phone]. Kalie Bess SEG % 81.0 % Critically high 43.0-75.0 [facility] Comment on above: Performed By: #### C NANCY ####[facility] Kfacqkezex1010 [place] [phone]. Kalie Bess WBC 17.4 103/ul Critically high 4.0-11.0 [facility] Comment on above: Performed By: #### C NANCY ####[facility] Dhqmnnvoca0393 [place] [phone]. Kalie Bess CRPon 11-26-2022 CRP 7.9 mg/dL Critically high <=1.0 [facility] Comment on above: Performed By: #### C RP, CMP ####[facility] Dbobvludfj2902 [place] [phone]. Kalie Bess POINT OF CARE GLUCOSEon 02-0 Glucose [Mass/Vol] 348 mg/dL Critically high 74-106 [facility] Comment on above: Performed By: #### P OCGLUC ####[facility] Zndpmilmez6604 [place] [phone]. Kalie Bess Glucose [Mass/Vol] 355 mg/dL Critically high 74-106 [facility] Comment on above: Performed By: #### P OCGLUC ####[facility] Iqnwechwln6195 [place] [phone]. Kalie Bess Glucose [Mass/Vol] 421 mg/dL Critically high 74-106 T [facility] Comment on above: Performed By: #### P OCGLUC ####[facility] Qtsrmhggno1523 [place] [address]Dr. Kalie Bess PROF 14(COMP METB)on 023 Albumin [Mass/Vol] 1.6 g/dL Critically low 3.4-5.[address] [facility] Comment on above: Performed By: #### C RP, CMP ####[facility] Lmrqrcxfys9856 [place] [address]Dr. Kalie Bess Albumin/Globulin [Mass ratio] 0.3 {ratio} Normal [facility] Comment on above: Performed By: #### C RP, CMP ####[facility] Lkpowwjjvj1339 [place] [address]Dr. Kalie Bess ALP [Catalytic activity/Vol] 176 U/L Critically high 46-116 [facility] Comment on above: Performed By: #### C RP, CMP ####[facility] Xgmbcrdezz1364 [place] [address]Dr. Kalie Bess ALT [Catalytic activity/Vol] 32 U/L Normal 14-59 [facility] Comment on above: Performed By: #### C RP, CMP ####[facility] Gaftzukjdd6772 [place] [address]Dr. Kalie Bess Anion gap [Moles/Vol] 11.2 mmol/L Normal [facility] Comment on above: Performed By: #### C RP, CMP ####[facility] Tbkxugvgnc2505 [place] [address]Dr. Kalie Bess AST [Catalytic activity/Vol] 18 U/L Normal 15-37 [facility] Comment on above: Performed By: #### C RP, CMP ####[facility] Dygbdmchjw7686 [place] [address]Dr. Kalie Bess Bilirubin [Mass/Vol] 0.2 mg/dL Normal 0.2-1.0 [facility] Comment on above: Performed By: #### C RP, CMP ####[facility] Luvpatdsuv1731 [place] [phone]. Kalie Bess Calcium [Mass/Vol] 8.5 mg/dL Normal 8.5-10.1 [facility] Comment on above: Performed By: #### C RP, CMP ####[facility] Fpnxkcgqff4082 [place] [address]Dr. Kalie Bess Chloride [Moles/Vol] 102 mmol/L Normal 98-107 [facility] Comment on above: Performed By: #### C RP, CMP ####[facility] Hpjylleeve1867 [place] [address]Dr. Kalie Bess CO2 [Moles/Vol] 27.7 mmol/L Normal 21.0-32.0 [facility] Comment on above: Performed By: #### C RP, CMP ####[facility] Szyhivykre117[address] [place], [place] [address]Dr. Kalie Bess Creatinine [Mass/Vol] 1.24 mg/dL Critically high 0.55-1.02 [facility] Comment on above: Performed By: #### C RP, CMP ####[facility] Hhnietfgsh7845[address] [place], [place] [address]Dr. Kalie Bess EGFR-AF [place] 55 mL/min/1.73m2 Critically low >=60 [facility] Comment on above: Performed By: #### C RP, CMP ####[facility] Ibzdimrfir425[address] [place], [place] [address]Dr. Kalie Bess EGFR-NON AF [place]IZ[place] OF [place] 46 mL/min/1.73m2 Critically low >=60 [facility] Comment on above: Performed By: #### C RP, CMP ####[facility] Fycaxjorjl3163 [place] [address]Dr. Kalie Bess Globulin (S) [Mass/Vol] 4.6 g/dL Normal [facility] Comment on above: Performed By: #### C RP, CMP ####[facility] Hzloxvzusb848[address] [place], [place] [address]Dr. Kalie Bess Glucose [Mass/Vol] 279 mg/dL Critically high 74-106 T [facility] Comment on above: Performed By: #### C RP, CMP ####[facility] Msgxbzpslu2693 [place] [address]Dr. Kalie Bess Potassium [Moles/Vol] 3.9 mmol/L Normal 3.5-5.1 [facility] Comment on above: Performed By: #### C RP, CMP ####[facility] Evzfkxxusr4979[address] [place], [place] [address]Dr. Shayyroxie Shahriar Protein [Mass/Vol] 6.2 g/dL Critically low 6.4-8.[address] [facility] Comment on above: Performed By: #### C RP, CMP ####[facility] Gaoydllndq1610[address] [place], [place] [address]Dr. Shayyroxie Shahriar Sodium [Moles/Vol] 137 mmol/L Normal 136-145 [facility] Comment on above: Performed By: #### C RP, CMP ####[facility] Nbzaeclkce857[address] [place], [place] [address]Dr. Kalie Bess Urea nitrogen [Mass/Vol] 16.0 mg/dL Normal 7.0-18.0 [facility] Comment on above: Performed By: #### C RP, CMP ####[facility] H[address]vsdaqppt8[address] [place], [place] [address]Dr. Shayyroxie Shahriar Urea nitrogen/Creatinine [Mass ratio] 12.9 mg/mg Normal [facility] Comment on above: Performed By: #### C RP, CMP ####[facility] Vuposhocti589[address] [place], [place] [address]Dr. Shayyroxie Shahriar SED RATE WESTERGRENon 2022 SED RATE 126 mm/hr Critically high <=30 [facility] Comment on above: Performed By: #### S EDR ####[facility] Brvgvkfznh9547[address] [place], [place] [address]Dr. Shayyroxie Shahriar CBC AUTO DIFFon 11-25-2022 BASO # 0.1 103/ul Normal 0.0-0.1 [facility] Comment on above: Performed By: #### C BC ####[facility] Sfzzpgluqa0819 [place] [phone]. Kalie Bess Basophils/100 WBC (Bld) 0.6 % Normal 0.2-2.0 [facility] Comment on above: Performed By: #### C BC ####[facility] Eydmaxkene6176 [place] [phone]. Kalie Bess EO # 0.6 103/ul Normal 0.0-0.7 [facility] Comment on above: Performed By: #### C BC ####[facility] Kzlacuufsv1590 [place] [phone]. Kalie Bess Eosinophils/100 WBC (Bld) 4.0 % Normal 0.9-7.0 [facility] Comment on above: Performed By: #### C BC ####[facility] Wruqpzfoup8844 [place] [phone]. Kalie Bess Erythrocyte distribution width (RBC) [Ratio] 14.4 % Normal 11.0-15.0 [facility] Comment on above: Performed By: #### C BC ####[facility] Skdaiaftwg7114 [place] [phone]. Kalie Bess Hematocrit (Bld) [Volume fraction] 25.9 % Critically low 36.0-48.0 [facility] Comment on above: Performed By: #### C BC ####[facility] Yyatfeqcyd2476 [place] [phone]. Kalie Bess Hemoglobin (Bld) [Mass/Vol] 8.5 g/dL Critically low 12.0-16.0 [facility] Comment on above: Performed By: #### C BC ####[facility] Kukjybtmqb1204 [place] [phone]. Kalie Bess IG # 1.05 10e3/ul Critically high 0.00-0.03 [facility] Comment on above: Performed By: #### C BC ####[facility] Kfdodmvrgb7354 [place] [phone]. Kalie Bess IG % 6.7 % Critically high 0.0-0.5 [facility] Comment on above: Performed By: #### C BC ####[facility] Vrbfjxzvkl0284 [place] [phone]. Shayyroxie Shahriar LYMPH # 3.2 103/ul Normal 1.2-3.8 [facility] Comment on above: Performed By: #### C BC ####[facility] Ejotkpnfkv8876 [place] [phone]. Shayyroxie Bess Lymphocytes/100 WBC (Bld) 20.3 % Critically low 20.5-60.0 [facility] Comment on above: Performed By: #### C BC ####[facility] Yvqtqukbes8894 [place] [address]Dr. Kalie Bess MANUAL DIFF REQ YES Normal [facility] Comment on above: Result Comment: Prev iously reported as: NO On 11/25/2022 06:37 By KD3 Performed By: #### C BC ####[facility] Z[address]bsrlhbm97[address] [place], [place] [address]Dr. Kalie Bess MCH (RBC) [Entitic mass] 29.0 pg Normal 26.7-34.0 [facility] Comment on above: Performed By: #### C BC ####[facility] Tzgrqpwoga8[address] [place], [place] [address]Dr. Kalie Bess MCHC (RBC) [Mass/Vol] 32.8 g/dL Normal 29.9-35.2 [facility] Comment on above: Performed By: #### C BC ####[facility] Kytwmdyksk69[address] [place], [place] [address]Dr. Kalie Bses MCV (RBC) [Entitic vol] 88.4 fL Normal 81.0-99.0 [facility] Comment on above: Performed By: #### C BC ####[facility] Ctwndhnprb3447[address] [place], [place] [address]Dr. Kalie Bess MONO # 1.3 103/ul Critically high 0.3-0.8 [facility] Comment on above: Performed By: #### C BC ####[facility] Tlxeftndtq628[address] [place], [place] [address]Dr. Kalie Bess Monocytes/100 WBC (Bld) 8.5 % Normal 1.7-12.0 [facility] Comment on above: Performed By: #### C BC ####[facility] Bjqlpqjcsz5477 [place] [phone]. Kalie Bess NEUT # 9.4 103/ul Critically high 1.4-6.5 [facility] Comment on above: Performed By: #### C BC ####[facility] Wevzoitfch0386 [place] [phone]. Kalie Bess Neutrophils/100 WBC (Bld) 59.9 % Normal 43.0-75.0 [facility] Comment on above: Performed By: #### C BC ####[facility] Evxkzoqkzs9351 [place] [address]Dr. Kalie Bess Platelet mean volume (Bld) [Entitic vol] 11.7 fL Normal 9.5-13.5 [facility] Comment on above: Performed By: #### C BC ####[facility] Yyhfbgztuj2728 [place] [phone]. Kalie Bess PLT 243 103/ul Normal 150-450 [facility] Comment on above: Performed By: #### C BC ####[facility] Bpskoeuztu7395 [place] [phone]. Kalie Bess RBC 2.93 106/ul Critically low 4.20-5.40 [facility] Comment on above: Performed By: #### C BC ####[facility] Ovqwwcrkcy8963 [place] [phone]. Kalie Bess WBC 15.6 103/ul Critically high 4.0-11.0 [facility] Comment on above: Performed By: #### C BC ####[facility] Lykydmcrmi3780 [place] [phone]. Kalie Bess CRPon 11-25-2022 CRP 11.0 mg/dL Critically high <=1.0 [facility] Comment on above: Performed By: #### C MP, CRP ####[facility] Lzymgcxwyg6021 [place] [phone]. Kalie Bess POINT OF CARE GLUCOSEon 10-28 Glucose [Mass/Vol] 187 mg/dL Critically high 74-106 [facility] Comment on above: Performed By: #### P OCGLUC ####[facility] Ktdsiauxkd2656 [place] [address]Dr. Kalie Bess Glucose [Mass/Vol] 196 mg/dL Critically high 74-106 [facility] Comment on above: Performed By: #### P OCGLUC ####[facility] Npyuyjnndj8574 [place] [address]Dr. Kalie Bess Glucose [Mass/Vol] 234 mg/dL Critically high 74-106 [facility] Comment on above: Performed By: #### P OCGLUC ####[facility] Mpxbwcksny59[address] [place], [place] [address]Dr. Kalie Bess Glucose [Mass/Vol] 155 mg/dL Critically high 74-106 [facility] Comment on above: Performed By: #### P OCGLUC ####[facility] [address]fglgjjwha57[address] [place], [place] [address]Dr. Shayyroxie Bess PROF 14(COMP METB)on 023 Albumin [Mass/Vol] 1.6 g/dL Critically low 3.4-5.[address] [facility] Comment on above: Performed By: #### C MP, CRP ####[facility] Biumvgbpih9396 [place] [address]Dr. Kalie Shahriar Albumin/Globulin [Mass ratio] 0.4 {ratio} Normal [facility] Comment on above: Performed By: #### C MP, CRP ####[facility] Zqdbhimtch1900 [place] [address]Dr. Kalie Shahriar ALP [Catalytic activity/Vol] 178 U/L Critically high 46-116 [facility] Comment on above: Performed By: #### C MP, CRP ####[facility] Jjfmdwujqu3136 [place] [address]Dr. Kalie Shahriar ALT [Catalytic activity/Vol] 40 U/L Normal 14-59 [facility] Comment on above: Performed By: #### C MP, CRP ####[facility] Sgcperaxhh[address] [place], [place] [id number]. Kalie Bess Anion gap [Moles/Vol] 10.6 mmol/L Normal [facility] Comment on above: Performed By: #### C MP, CRP ####[facility] Ymhufanczm0836 [place] [address]Dr. Kalie Bess AST [Catalytic activity/Vol] 19 U/L Normal 15-37 [facility] Comment on above: Performed By: #### C MP, CRP ####[facility] Xezugybjpf6871 [place] [address]Dr. Kalie Bess Bilirubin [Mass/Vol] 0.2 mg/dL Normal 0.2-1.0 [facility] Comment on above: Performed By: #### C MP, CRP ####[facility] Tilirucchr[address] [place], [place] [address]Dr. Kalie Bess Calcium [Mass/Vol] 8.7 mg/dL Normal 8.5-10.1 [facility] Comment on above: Performed By: #### C MP, CRP ####[facility] Mdyvxiuxgf86[address] [place], [place] [address]Dr. Kalie Bess Chloride [Moles/Vol] 103 mmol/L Normal 98-107 [facility] Comment on above: Performed By: #### C MP, CRP ####[facility] Jcsjcsaeqh[address] [place], [place] [address]Dr. Kalie Bess CO2 [Moles/Vol] 29.3 mmol/L Normal 21.0-32.0 The [facility] Comment on above: Performed By: #### C MP, CRP ####[facility] Sqnkowncjl3170 [place] [address]Dr. Kalie Bess Creatinine [Mass/Vol] 1.35 mg/dL Critically high 0.55-1.02 [facility] Comment on above: Performed By: #### C MP, CRP ####[facility] Xwaicohgnn2032 [place] [address]Dr. Kalie Bess EGFR-AF CITIZEN OF [place] 50 mL/min/1.73m2 Critically low >=60 [facility] Comment on above: Performed By: #### C MP, CRP ####[facility] Qghfuaouyz3199 [place] [id number]. Kalie Bess EGFR-NON AF CITIZEN OF [place] 41 mL/min/1.73m2 Critically low >=60 [facility] Comment on above: Performed By: #### C MP, CRP ####[facility] Drfxfmfggt5203 [place] [id number]. Kalie Bess Globulin (S) [Mass/Vol] 4.4 g/dL Normal [facility] Comment on above: Performed By: #### C MP, CRP ####[facility] Battygcqfj8832 [place] [address]Dr. Kalie Bess Glucose [Mass/Vol] 170 mg/dL Critically high 74-106 T [facility] Comment on above: Performed By: #### C MP, CRP ####[facility] Byruwbdcsz7657 [place] [address]Dr. Kalie Bess Potassium [Moles/Vol] 3.9 mmol/L Normal 3.5-5.1 [facility] Comment on above: Performed By: #### C MP, CRP ####[facility] Emdpltzkoj6651 [place] [address]Dr. Kalie Bess Protein [Mass/Vol] 6.0 g/dL Critically low 6.4-8.[address] [facility] Comment on above: Performed By: #### C MP, CRP ####[facility] Dilmbclnfl0335 [place] [address]Dr. Kalie Bess Sodium [Moles/Vol] 139 mmol/L Normal 136-145 [facility] Comment on above: Performed By: #### C MP, CRP ####[facility] Xxgbbklxbn9392 [place] [address]Dr. Kalie Bess Urea nitrogen [Mass/Vol] 18.0 mg/dL Normal 7.0-18.0 [facility] Comment on above: Performed By: #### C MP, CRP ####[facility] Guxbrwbulo6737 [place] [address]Dr. Kalie Bess Urea nitrogen/Creatinine [Mass ratio] 13.3 mg/mg Normal [facility] Comment on above: Performed By: #### C MP, CRP ####[facility] Olifotluio8320 [place] [phone]. Kalie Bess SED RATE WESTERGRENon 2022 SED RATE 130 mm/hr Critically high <=30 [facility] Comment on above: Performed By: #### S EDR ####[facility] Mkfspeshqm8203 [place] [address]Dr. Kalie Bess CBC W MANUAL DIFFon 11-24-19 23 ATYPICAL LYMPH # 0.16 103/ul Normal [facility] Comment on above: Performed By: #### C BCMAN ####[facility] Yypenqmdkl7575 [place] [address]Dr. Kalie Bess ATYPICAL LYMPH % 1 % Normal [facility] Comment on above: Performed By: #### C BCMAN ####[facility] Ztpgsbutkw5280 [place] [address]Dr. Kalie Bess BAND # 0.3 103/ul Normal 0.0-0.3 [facility] Comment on above: Performed By: #### C BCMAN ####[facility] Xknrrjuqjw2263 [place] [address]Dr. Kalie Bess BAND % 2 % Normal 0-5 [facility] Comment on above: Performed By: #### C BCMAN ####[facility] Rzprcrrbfu6312 [place] [address]Dr. Kalie Bess BASOM # 0.00 103/ul Normal 0.00-0.10 [facility] Comment on above: Performed By: #### C BCMAN ####[facility] Rjsoavoddz7679 [place] [address]Dr. Kalie Bess BASOM % 0.0 % Critically low 0.2-2.0 [facility] Comment on above: Performed By: #### C BCMAN ####[facility] Jrnntguhok2632 [place] [address]Dr. Kalie Bess BLAST # Normal [facility] Comment on above: Performed By: #### C BCMAN ####[facility] Dimzsqremq2[address] [place], [place] [address]Dr. Kalie Bess BLAST % Normal [facility] Comment on above: Performed By: #### C BCMAN ####[facility] Varzzprzir6574 [place] [phone]. Kalie Bess CORRECTED WBC Normal 4.0-11.0 [facility] Comment on above: Performed By: #### C BCMAN ####[facility] Vcdeqnovkk8781 [place], [place] [address]Gk. Kalie Bess EOS # 1.42 103/ul Critically high 0.00-0.70 [facility] Comment on above: Performed By: #### C BCGABRIELLA ####[facility] Aqhcpxpufq3757 [place] [phone]. Kalie Bess EOS% 9.0 % Critically high 0.9-7.0 [facility] Comment on above: Performed By: #### C BCGABRIELLA ####[facility] Ateuyjzmtc5155 [place] [phone]. Kalie Bess HCT 27.8 % Critically low 36.0-48.0 [facility] Comment on above: Performed By: #### C BCGABRIELLA ####[facility] Cwkfrkwnck0899 [place] [phone]. Kalie Bess HGB 9.6 g/dl Critically low 12.0-16.0 [facility] Comment on above: Performed By: #### C BCGABRIELLA ####[facility] Cqnnmzetgf4512 [place] [phone]. Kalie Bess LYMPHM # 2.69 103/ul Normal 1.20-3.80 [facility] Comment on above: Performed By: #### C BCMAN ####[facility] Hgkipmpwvz6276 [place] [phone]. Kalie Bess LYMPHM% 17.0 % Critically low 20.5-60.0 [facility] Comment on above: Performed By: #### C BCMAN ####[facility] Lfzgvaadyf6602 [place] [phone]. Kalie Bess MCH 29.1 pg Normal 26.7-34.0 [facility] Comment on above: Performed By: #### C NANCY ####[facility] Mvmjbgajpu2996 [place] [phone]. Kalie Bess MCHC 34.5 g/dl Normal 29.9-35.2 [facility] Comment on above: Performed By: #### C NANCY ####[facility] Nvnqsmqhir9423 [place] [phone]. Kalie Bess MCV 84.2 fL Normal 81.0-99.0 [facility] Comment on above: Performed By: #### C NANCY ####[facility] Xcgftummyj2627 [place] [phone]. Kalie Bess METAMYELOCYTE # 0.0 103/ul Normal [facility] Comment on above: Performed By: #### C NANCY ####[facility] Ebgbastlry8219 [place] [phone]. Kalie Bess METAMYELOCYTE % 0 % Normal [facility] Comment on above: Performed By: #### C NANCY ####[facility] Simrfuxstt0682 [place] [phone]. Kalie Bess MONOM# 0.47 103/ul Normal 0.30-0.80 [facility] Comment on above: Performed By: #### C NANCY ####[facility] Rrujhalutq1807 [place] [phone]. Kalie Bess MONOM% 3.0 % Normal 1.7-12.0 [facility] Comment on above: Performed By: #### C NANCY ####[facility] Uxsflpvjft8441 [place] [phone]. Kalie Bess MPV 11.5 fL Normal 9.5-13.5 [facility] Comment on above: Performed By: #### C NANCY ####[facility] Ognauhfnkg6709 [place] [phone]. Kalie Bess MYELOCYTE # Normal [facility] Comment on above: Performed By: #### C NANCY ####[facility] Qigzumrrdu[address] [place], [place] [address]Dr. Yilan Bess MYELOCYTE % Normal [facility] Comment on above: Performed By: #### C BCMAN ####[facility] Rnlzofjkrp4434 [place], [place] [address]Xj. Kalie Bess NRBC Normal [facility] Comment on above: Performed By: #### C NANCY ####[facility] Zbmjrpkmhu4606 [place], [place] [address]Av. Kalei Bess PLT 220 103/ul Normal 150-450 [facility] Comment on above: Performed By: #### C NANCY ####[facility] Bpmmudcmyf6823 [place], [place] [address]Tl. Kalie Bess RBC 3.30 106/ul Critically low 4.20-5.40 [facility] Comment on above: Performed By: #### C NANCY ####[facility] Tygldmicmm4417 [place] [phone]. Kalie Bess RDW 14.2 % Normal 11.0-15.0 [facility] Comment on above: Performed By: #### C NANCY ####[facility] Kvhyzuykib7365 [place], [place] [address]Ll. Kalie Bess SEG # 10.74 103/ul Critically high 1.40-6.50 [facility] Comment on above: Performed By: #### C MEIRMAN ####[facility] Imgcbkangw2135 [place], [place] [address]Ll. Kalie Bess SEG % 68.0 % Normal 43.0-75.0 [facility] Comment on above: Performed By: #### C BCMAN ####[facility] [address]xl[address] [place] [address]Ex. Kalie Bses WBC 15.8 103/ul Critically high 4.0-11.0 [facility] Comment on above: Performed By: #### C BCMAN ####[facility] Iyczwxaobr[address] [place], [place] [address]Dr. Kalie Bess CRPon 11-24-2022 CRP 18.2 mg/dL Critically high <=1.0 [facility] Comment on above: Performed By: #### C MP, CRP ####[facility] Zhznqpiljw0302 [place] [phone]. Kalie Bess POINT OF CARE GLUCOSEon 10-28 Glucose [Mass/Vol] 277 mg/dL Critically high 74-106 [facility] Comment on above: Performed By: #### P OCGLUC ####[facility] Dwsbhmvwbl1504 [place] [phone]. Kalie Bess Glucose [Mass/Vol] 268 mg/dL Critically high 74-106 [facility] Comment on above: Performed By: #### P OCGLUC ####[facility] Cohtwbqbnx5415 [place] [address]Dr. Shayyroxie Shahriar Glucose [Mass/Vol] 337 mg/dL Critically high 74-106 [facility] Comment on above: Performed By: #### P OCGLUC ####[facility] Uxdalptstt7528 [place] [address]Dr. Kalie Bess Glucose [Mass/Vol] 366 mg/dL Critically high 74-106 [facility] Comment on above: Performed By: #### P OCGLUC ####[facility] Zinmbufvvy8747 [place] [address]Dr. Kalie Bess PROF 14(COMP METB)on 023 Albumin [Mass/Vol] 1.8 g/dL Critically low 3.4-5.[address] [facility] Comment on above: Performed By: #### C MP, CRP ####[facility] Tfqjrhwhny9968 [place] [address]Dr. Kalie Bess Albumin/Globulin [Mass ratio] 0.4 {ratio} Normal [facility] Comment on above: Performed By: #### C MP, CRP ####[facility] Edfgjzxvyj3834 [place] [address]Dr. Kalie Bess ALP [Catalytic activity/Vol] 235 U/L Critically high 46-116 [facility] Comment on above: Performed By: #### C MP, CRP ####[facility] Leblaeqdbr5918 [place] [phone]. Kalie Bess ALT [Catalytic activity/Vol] 60 U/L Critically high 14-59 [facility] Comment on above: Performed By: #### C MP, CRP ####[facility] Iwmpwqmgdn7815 [place] [address]Dr. Kalie Bess Anion gap [Moles/Vol] 10.2 mmol/L Normal [facility] Comment on above: Performed By: #### C MP, CRP ####[facility] Spwpfhtodn6819 [place] [address]Dr. Kalie Bess AST [Catalytic activity/Vol] 32 U/L Normal 15-37 [facility] Comment on above: Performed By: #### C MP, CRP ####[facility] Wyzgzesngj0579 [place] [address]Dr. Kalie Bess Bilirubin [Mass/Vol] 0.3 mg/dL Normal 0.2-1.0 [facility] Comment on above: Performed By: #### C MP, CRP ####[facility] Wopqlcvsic[address] [place], [place] [address]Dr. Kalie Bess Calcium [Mass/Vol] 9.0 mg/dL Normal 8.5-10.1 [facility] Comment on above: Performed By: #### C MP, CRP ####[facility] Snkegxddwf4025[address] [place], [place] [address]Dr. Kalie Bess Chloride [Moles/Vol] 100 mmol/L Normal 98-107 [facility] Comment on above: Performed By: #### C MP, CRP ####[facility] Sirtgqmepg63[address] [place], [place] [address]Dr. Shayyroxie Bess CO2 [Moles/Vol] 29.0 mmol/L Normal 21.0-32.0 [facility] Comment on above: Performed By: #### C MP, CRP ####[facility] Mkcxwvbfvz4926[address] [place], [place] [address]Dr. Shayyroxie Shahriar Creatinine [Mass/Vol] 1.21 mg/dL Critically high 0.55-1.02 [facility] Comment on above: Performed By: #### C MP, CRP ####[facility] Ffyxzcldqm[address] [place], [place] [address]Dr. Shayyroxie Shahriar EGFR-AF [place]IZ[place] 57 mL/min/1.73m2 Critically low >=60 [facility] Comment on above: Performed By: #### C MP, CRP ####[facility] Igqygaxnxu12[address] [place], [place] [address]Dr. Kalie Bess EGFR-NON AF [place]IZ[place] OF [place] 47 mL/min/1.73m2 Critically low >=60 [facility] Comment on above: Performed By: #### C MP, CRP ####[facility] Wxogcaxkbx576[address] [place], [place] [address]Dr. Kalie Bess Globulin (S) [Mass/Vol] 5.0 g/dL Normal [facility] Comment on above: Performed By: #### C MP, CRP ####[facility] Itltilipzk296[address] [place], [place] [address]Dr. Kalie Bess Glucose [Mass/Vol] 339 mg/dL Critically high 74-106 T [facility] Comment on above: Performed By: #### C MP, CRP ####[facility] Qfozbqrgak2716[address] [place], [place] [address]Dr. Kalie Bess Potassium [Moles/Vol] 4.2 mmol/L Normal 3.5-5.1 [facility] Comment on above: Performed By: #### C MP, CRP ####[facility] Sltcdwtrjn699[address] [place], [place] [address]Dr. Kalie Bess Protein [Mass/Vol] 6.8 g/dL Normal 6.4-8.2 [facility] Comment on above: Performed By: #### C MP, CRP ####[facility] Vvacnvvukf2636 [place] [address]Dr. Kalie Bess Sodium [Moles/Vol] 135 mmol/L Critically low 136-[address] [facility] Comment on above: Performed By: #### C MP, CRP ####[facility] Efntogulqe305[address] [place], [place] [address]Dr. Kaile Bess Urea nitrogen [Mass/Vol] 24.0 mg/dL Critically high 7.0-18.0 [facility] Comment on above: Performed By: #### C MP, CRP ####[facility] Nlfjjlmnoc4774 [place] [phone]. Kalie Bess Urea nitrogen/Creatinine [Mass ratio] 19.8 mg/mg Normal [facility] Comment on above: Performed By: #### C MP, CRP ####[facility] Lgoolfjslm[address] [place], [place] [address]Dr. Kalie Bess SED RATE WESTERGRENon 2022 SED RATE >130 Critically high <=30 [facility] Comment on above: Performed By: #### S EDR ####[facility] Kbssaxcudj[address] [place], [place] [address]Dr. Kalie Bess US BREAST LEFT COMPLETEon US BREAST LEFT COMPLETE Normal [facility] XR CHEST 1 Von 11-24-2022 XR CHEST 1 V Normal [facility] CBC AUTO DIFFon 11-23-2022 BASO # 0.1 103/ul Normal 0.0-0.1 [facility] Comment on above: Performed By: #### C BC ####[facility] [address]iiowrxjsu3825[address] [place], [place] [address]Dr. Kalie Shahriar Basophils/100 WBC (Bld) 0.4 % Normal 0.2-2.0 [facility] Comment on above: Performed By: #### C BC ####[facility] Qnogtvkmcl14[address] [place], [place] [address]Dr. Kalie Bess EO # 0.7 103/ul Normal 0.0-0.7 [facility] Comment on above: Performed By: #### C BC ####[facility] Fqtcqaogkh13[address] [place], [place] [address]Dr. Kalie Shahriar Eosinophils/100 WBC (Bld) 4.5 % Normal 0.9-7.0 [facility] Comment on above: Performed By: #### C BC ####[facility] Zdvkfdrusz589[address] [place], [place] [address]Dr. Kalie Bess Erythrocyte distribution width (RBC) [Ratio] 14.0 % Normal 11.0-15.0 [facility] Comment on above: Performed By: #### C BC ####[facility] Oxtjamwyxq27[address] [place], [place] [address]Dr. Kalie Bess Hematocrit (Bld) [Volume fraction] 23.8 % Critically low 36.0-48.0 [facility] Comment on above: Performed By: #### C BC ####[facility] Ntcqlpsvmu5719 [place] [address]DrCassie Kalie Bess Hemoglobin (Bld) [Mass/Vol] 8.4 g/dL Critically low 12.0-16.0 [facility] Comment on above: Performed By: #### C BC ####[facility] Ucbceaconu5598 [place] [address]DrCassie Bess IG # 0.30 10e3/ul Critically high 0.00-0.03 [facility] Comment on above: Performed By: #### C BC ####[facility] Ikenednnzc7659 [place] [address]DrCassie Bess IG % 2.1 % Critically high 0.0-0.5 [facility] Comment on above: Performed By: #### C BC ####[facility] Ewwtrjzvff3692 [place] [address]DrCassie Bess LYMPH # 2.3 103/ul Normal 1.2-3.8 [facility] Comment on above: Performed By: #### C BC ####[facility] Litopktvie8347 [place] [address]DrCassie Bess Lymphocytes/100 WBC (Bld) 15.6 % Critically low 20.5-60.0 [facility] Comment on above: Performed By: #### C BC ####[facility] Hjdnfguvde5350 [place] [address]DrCassie Shayyroxie Bess MANUAL DIFF REQ NO Normal [facility] Comment on above: Performed By: #### C BC ####[facility] Lceijvzfwj8229 [place] [address]DrCassie Shayyroxie Bess MCH (RBC) [Entitic mass] 29.3 pg Normal 26.7-34.0 [facility] Comment on above: Performed By: #### C BC ####[facility] Vrxyzcigij17[address] [place], [place] [address]DrCassie Jade Shahriar MCHC (RBC) [Mass/Vol] 35.3 g/dL Critically high 29.9-35.2 [facility] Comment on above: Performed By: #### C BC ####[facility] Gfladroxgd0634 [place] [phone]. Kalie Bess MCV (RBC) [Entitic vol] 82.9 fL Normal 81.0-99.0 [facility] Comment on above: Performed By: #### C BC ####[facility] Qsaimcrayn2592 [place] [address]Dr. Kalie Shahriar MONO # 1.4 103/ul Critically high 0.3-0.8 [facility] Comment on above: Performed By: #### C BC ####[facility] Gfbpduvsxc6174 [place] [address]Dr. Shayyroxie Bess Monocytes/100 WBC (Bld) 9.3 % Normal 1.7-12.0 [facility] Comment on above: Performed By: #### C BC ####[facility] [address]lrckzqgpg80[address] [place], [place] [address]Dr. Kalie Shahriar NEUT # 10.0 103/ul Critically high 1.4-6.5 [facility] Comment on above: Performed By: #### C BC ####[facility] Omxzrwcwcl60[address] [place], [place] [address]Dr. Kalie Shahriar Neutrophils/100 WBC (Bld) 68.1 % Normal 43.0-75.0 [facility] Comment on above: Performed By: #### C BC ####[facility] Yovihewgki2926 [place] [address]Dr. Kalie Shahriar Platelet mean volume (Bld) [Entitic vol] 12.1 fL Normal 9.5-13.5 [facility] Comment on above: Performed By: #### C BC ####[facility] Dsultseimh8706 [place] [address]Dr. Kalie Bess PLT 167 103/ul Normal 150-450 [facility] Comment on above: Performed By: #### C BC ####[facility] Gdtzdpnner6715 [place] [address]Dr. Kalie Bess RBC 2.87 106/ul Critically low 4.20-5.40 [facility] Comment on above: Performed By: #### C BC ####[facility] Vokjmhpvye4547 [place] [address]Dr. Kalie Bess WBC 14.6 103/ul Critically high 4.0-11.0 [facility] Comment on above: Performed By: #### C BC ####[facility] Bxadiwdjju3856 [place] [address]Dr. Kalie Bess CRPon 11-23-2022 CRP 47.3 mg/dL Critically high <=1.0 [facility] Comment on above: Performed By: #### C RP, CMP ####[facility] Krztqalzvy99[address] [place], [place] [address]Dr. Kalie Bess H PYLORI ANTIBODY IGGon 10-27 H. PYLORI IGG ABS 0.14 Index Value Normal 0.00-0.79 [facility] Comment on above: Result Comment: Nega tive <0.80 Equivocal 0.80 - 0.89 Positive >0.89 Performed By: #### H PYLLC ####[facility] [address]zccqntk7[address] [place], [place] [address]Dr. Kalie Bess OCC BLD IMMUNO SCREENon 10-27 OCCULT BLOOD Negative Normal NEGATIVE [facility] Comment on above: Performed By: #### O BSCRN ####[facility] [address]tdpekxixg85[address] [place], [place] [address]Dr. Kalie Bess POINT OF CARE GLUCOSEon 10-27 Glucose [Mass/Vol] 450 mg/dL Critically high 74-106 [facility] Comment on above: Performed By: #### P OCGLUC ####[facility] Hzalmziiop520[address] [place], [place] [address]Dr. Kalie Bess Glucose [Mass/Vol] 328 mg/dL Critically high 74-106 [facility] Comment on above: Performed By: #### P OCGLUC ####[facility] Adzsborxgj34[address] [place], [place] [address]Dr. Kalie Bess Glucose [Mass/Vol] 268 mg/dL Critically high 74-106 [facility] Comment on above: Performed By: #### P OCGLUC ####[facility] Ruvyosakti7729 [place] [address]Dr. Shayyroxie Shahriar Glucose [Mass/Vol] 206 mg/dL Critically high 74-106 [facility] Comment on above: Performed By: #### P OCGLUC ####[facility] Lngfxwlqqt2022 [place] [address]Dr. Kalie Bess PROF 14(COMP METB)on 023 Albumin [Mass/Vol] 1.6 g/dL Critically low 3.4-5.[address] [facility] Comment on above: Performed By: #### C RP, CMP ####[facility] [address]hdjecqsfe66[address] [place], [place] [address]Dr. Kalie Bess Albumin/Globulin [Mass ratio] 0.4 {ratio} Normal [facility] Comment on above: Performed By: #### C RP, CMP ####[facility] Vqlldcsstq156[address] [place], [place] [address]Dr. Kalie Bess ALP [Catalytic activity/Vol] 202 U/L Critically high 46-116 [facility] Comment on above: Performed By: #### C RP, CMP ####[facility] Tvifkipktz1084 [place] [address]Dr. Kalie Bess ALT [Catalytic activity/Vol] 63 U/L Critically high 14-59 [facility] Comment on above: Performed By: #### C RP, CMP ####[facility] Buyxswxked0662 [place] [address]Dr. Kalie Bess Anion gap [Moles/Vol] 12.7 mmol/L Normal [facility] Comment on above: Performed By: #### C RP, CMP ####[facility] Linfgahdcu1871 [place] [address]Dr. Kalie Bess AST [Catalytic activity/Vol] 69 U/L Critically high 15-37 [facility] Comment on above: Performed By: #### C RP, CMP ####[facility] Hwlbsdoxwl[address] [place], [place] [id number]. Kalie Bess Bilirubin [Mass/Vol] 0.2 mg/dL Normal 0.2-1.0 [facility] Comment on above: Performed By: #### C RP, CMP ####[facility] Eheywpvrpl0045[address] [place], [place] [address]Dr. Kalie Bess Calcium [Mass/Vol] 8.6 mg/dL Normal 8.5-10.1 [facility] Comment on above: Performed By: #### C RP, CMP ####[facility] Zyavjicfgx5[address] [place], [place] [address]Dr. Kalie Bess Chloride [Moles/Vol] 99 mmol/L Normal 98-107 [facility] Comment on above: Performed By: #### C RP, CMP ####[facility] Qhkehfpxnd6714[address] [place], [place] [address]Dr. Kalie Bess CO2 [Moles/Vol] 27.2 mmol/L Normal 21.0-32.0 The [facility] Comment on above: Performed By: #### C RP, CMP ####[facility] Qrdrcmbeoz332[address] [place], [place] [address]Dr. Kalie Bess Creatinine [Mass/Vol] 1.59 mg/dL Critically high 0.55-1.02 [facility] Comment on above: Performed By: #### C RP, CMP ####[facility] Gdyueofata72[address] [place], [place] [address]Dr. Kalie Shahriar EGFR-AF CITIZEN [place] 41 mL/min/1.73m2 Critically low >=60 [facility] Comment on above: Performed By: #### C RP, CMP ####[facility] Flukmeunjs6436[address] [place], [place] [address]Dr. Kalie Bess EGFR-NON AF CITIZEN OF [place] 34 mL/min/1.73m2 Critically low >=60 [facility] Comment on above: Performed By: #### C RP, CMP ####[facility] Jvnjuvufyj26[address] [place], [place] [address]Dr. Kalie Bess Globulin (S) [Mass/Vol] 4.5 g/dL Normal [facility] Comment on above: Performed By: #### C RP, CMP ####[facility] Ppvlbleior15[address] [place] [phone]. Kalie Bess Glucose [Mass/Vol] 119 mg/dL Critically high 74-106 T [facility] Comment on above: Performed By: #### C RP, CMP ####[facility] Ekkajfgldx5115 [place] [id number]. Kalie Bess Potassium [Moles/Vol] 3.9 mmol/L Normal 3.5-5.1 [facility] Comment on above: Performed By: #### C RP, CMP ####[facility] Atsxscemsl029[address] [place] [address]Dr. Kalie Bess Protein [Mass/Vol] 6.1 g/dL Critically low 6.4-8.[address] [facility] Comment on above: Performed By: #### C RP, CMP ####[facility] Fyoiaxbfpa4217[address] [place], [place] [address]Dr. Kalie Bess Sodium [Moles/Vol] 135 mmol/L Critically low 136-[address] [facility] Comment on above: Performed By: #### C RP, CMP ####[facility] Wxknjlmnly4[address] [place] [address]Dr. Kalie Shahriar Urea nitrogen [Mass/Vol] 36.0 mg/dL Critically high 7.0-18.0 [facility] Comment on above: Performed By: #### C RP, CMP ####[facility] Bugaefvxau[address] [place] [address]Dr. Kalie Shahriar Urea nitrogen/Creatinine [Mass ratio] 22.6 mg/mg Normal [facility] Comment on above: Performed By: #### C RP, CMP ####[facility] Hxyaxrtqas9615 [place] [phone]. Kalie Shahriar SED RATE WESTERGRENon 2022 SED RATE >130 Critically high <=30 [facility] Comment on above: Performed By: #### S EDR ####[facility] Okeustzjri[address] [place] [address]Dr. Kalie Sharhiar CBC AUTO DIFFon 01-28-2023 BASO # 0.1 103/ul Normal 0.0-0.1 [facility] Comment on above: Performed By: #### C BC ####[facility] Lbktajnkns1251 [place] [address]Dr. Kalie Bess Basophils/100 WBC (Bld) 0.5 % Normal 0.2-2.0 [facility] Comment on above: Performed By: #### C BC ####[facility] Egcwjyaylf4119 [place] [address]Dr. Kalie Bess EO # 0.8 103/ul Critically high 0.0-0.7 [facility] Comment on above: Performed By: #### C BC ####[facility] Lnslkxxjux8479 [place] [address]Dr. Kalie Bess Eosinophils/100 WBC (Bld) 5.2 % Normal 0.9-7.0 [facility] Comment on above: Performed By: #### C BC ####[facility] Nnuvhrawbj0897[address] [place], [place] [address]Dr. Kalie Bess Erythrocyte distribution width (RBC) [Ratio] 13.8 % Normal 11.0-15.0 [facility] Comment on above: Performed By: #### C BC ####[facility] Mcxhrxlewu235[address] [place], [place] [address]Dr. Kalie Bess Hematocrit (Bld) [Volume fraction] 27.0 % Critically low 36.0-48.0 [facility] Comment on above: Performed By: #### C BC ####[facility] Etvmjthbns7860[address] [place], [place] [address]Dr. Kalie Bess Hemoglobin (Bld) [Mass/Vol] 9.4 g/dL Critically low 12.0-16.0 [facility] Comment on above: Performed By: #### C BC ####[facility] Hkhgzjmzze935[address] [place], [place] [address]DrCassie Bess IG # 0.23 10e3/ul Critically high 0.00-0.03 The [facility] Comment on above: Performed By: #### C BC ####[facility] Gyzvrqehvi936[address] [place], [place] [address]Dr. Kalie Bess IG % 1.4 % Critically high 0.0-0.5 [facility] Comment on above: Performed By: #### C BC ####[facility] Ebwcxcwpxb8321 [place] [address]DrCassie Bess LYMPH # 2.2 103/ul Normal 1.2-3.8 [facility] Comment on above: Performed By: #### C BC ####[facility] Hphevwqmte2749 [place] [address]DrCassie Bess Lymphocytes/100 WBC (Bld) 13.6 % Critically low 20.5-60.0 [facility] Comment on above: Performed By: #### C BC ####[facility] Mqvvukhbpt7150[address] [place], [place] [address]DrCassie Bess MANUAL DIFF REQ NO Normal [facility] Comment on above: Performed By: #### C BC ####[facility] Krwbahdrqc7387[address] [place], [place] [address]DrCassie Bess MCH (RBC) [Entitic mass] 28.8 pg Normal 26.7-34.0 [facility] Comment on above: Performed By: #### C BC ####[facility] Ojsaxngeca099[address] [place], [place] [address]DrCassie Bess MCHC (RBC) [Mass/Vol] 34.8 g/dL Normal 29.9-35.2 [facility] Comment on above: Performed By: #### C BC ####[facility] Uuqkwmhytr220[address] [place], [place] [address]DrCassie Bess MCV (RBC) [Entitic vol] 82.8 fL Normal 81.0-99.0 [facility] Comment on above: Performed By: #### C BC ####[facility] Wqqinketwj095[address] [place], [place] [address]DrCassie Bess MONO # 1.2 103/ul Critically high 0.3-0.8 [facility] Comment on above: Performed By: #### C BC ####[facility] Frgasrufvu2622[address] [place], [place] [address]DrCassie Bess Monocytes/100 WBC (Bld) 7.3 % Normal 1.7-12.0 [facility] Comment on above: Performed By: #### C BC ####[facility] Vqluelzxlm2862 [place] [phone]. Kalie Bess NEUT # 11.7 103/ul Critically high 1.4-6.5 [facility] Comment on above: Performed By: #### C BC ####[facility] Xnuucbihba2601 [place] [address]Dr. Kalie Bess Neutrophils/100 WBC (Bld) 72.0 % Normal 43.0-75.0 [facility] Comment on above: Performed By: #### C BC ####[facility] Ghclvzuyoo8866 [place] [address]Dr. Kalie Bess Platelet mean volume (Bld) [Entitic vol] 12.5 fL Normal 9.5-13.5 [facility] Comment on above: Performed By: #### C BC ####[facility] Gqqqydgojj7831 [place] [address]Dr. Kalie Bess PLT 153 103/ul Normal 150-450 [facility] Comment on above: Performed By: #### C BC ####[facility] Rsdqcfhfwv276[address] [place], [place] [address]Dr. Kalie Bess RBC 3.26 106/ul Critically low 4.20-5.40 [facility] Comment on above: Performed By: #### C BC ####[facility] Vcnzefzjrm0263 [place] [address]Dr. Kalie Bess WBC 16.2 103/ul Critically high 4.0-11.0 [facility] Comment on above: Performed By: #### C BC ####[facility] Flxzgbrrvw2075 [place] [address]Dr. Kalie Bess CRPon 11-22-2022 CRP [Mass/Vol] mg/L Normal <=1.0 [facility] Comment on above: Performed By: #### C RP, CMP ####[facility] Ycqsjkhthb7[address] [place], [place] [id number]. Kalie Bess POINT OF CARE GLUCOSEon 10-27 Glucose [Mass/Vol] 179 mg/dL Critically high 74-106 [facility] Comment on above: Performed By: #### P OCGLUC ####[facility] Nhsrqkvnfi4924 [place] [address]Dr. Kalie Bess Glucose [Mass/Vol] 110 mg/dL Critically high 74-106 [facility] Comment on above: Performed By: #### P OCGLUC ####[facility] Ykesxwbqyu5320 [place] [address]Dr. Kalie Bess Glucose [Mass/Vol] 258 mg/dL Critically high 74-106 [facility] Comment on above: Performed By: #### P OCGLUC ####[facility] Kxjzpvpazg2600 [place] [address]Dr. Kalie Bess Glucose [Mass/Vol] 216 mg/dL Critically high 74-106 [facility] Comment on above: Performed By: #### P OCGLUC ####[facility] Rxqfxsvfbm2447 [place] [address]Dr. Kalie Shahriar PROF 14(COMP METB)on 023 Albumin [Mass/Vol] 1.8 g/dL Critically low 3.4-5.[address] [facility] Comment on above: Performed By: #### C RP, CMP ####[facility] Aufdkstybf9632 [place] [address]Dr. Kalie Bess Albumin/Globulin [Mass ratio] 0.4 {ratio} Normal [facility] Comment on above: Performed By: #### C RP, CMP ####[facility] Hxphhivfjr6066 [place] [address]Dr. Kalie Bess ALP [Catalytic activity/Vol] 117 U/L Critically high 46-116 [facility] Comment on above: Performed By: #### C RP, CMP ####[facility] Narywcgofa2021 [place] [address]Dr. Kalie Bess ALT [Catalytic activity/Vol] 30 U/L Normal 14-59 [facility] Comment on above: Performed By: #### C RP, CMP ####[facility] Gdqsbyukkw4525 [place] [phone]. Kalie Bess Anion gap [Moles/Vol] 12.9 mmol/L Normal [facility] Comment on above: Performed By: #### C RP, CMP ####[facility] Cogqzrhvna075[address] [place], [place] [address]Dr. Kalie Bess AST [Catalytic activity/Vol] 20 U/L Normal 15-37 [facility] Comment on above: Performed By: #### C RP, CMP ####[facility] Fekeedmoeb9990[address] [place], [place] [address]Dr. Kalie Bess Bilirubin [Mass/Vol] 0.3 mg/dL Normal 0.2-1.0 [facility] Comment on above: Performed By: #### C RP, CMP ####[facility] Ueuogslxkf645[address] [place], [place] [address]Dr. Shayyroxie Bess Calcium [Mass/Vol] 8.5 mg/dL Normal 8.5-10.1 [facility] Comment on above: Performed By: #### C RP, CMP ####[facility] Kkknjpgsmv0765[address] [place], [place] [address]Dr. Kalie Bess Chloride [Moles/Vol] 97 mmol/L Critically low 98-107 [facility] Comment on above: Performed By: #### C RP, CMP ####[facility] Bdmynageyj4795[address] [place], [place] [address]Dr. Kalie Bess CO2 [Moles/Vol] 26.1 mmol/L Normal 21.0-32.0 [facility] Comment on above: Performed By: #### C RP, CMP ####[facility] Ykjvcyrdxv8277[address] [place], [place] [address]Dr. Shayyroxie Bess Creatinine [Mass/Vol] 1.72 mg/dL Critically high 0.55-1.02 [facility] Comment on above: Performed By: #### C RP, CMP ####[facility] Vzhncxthyu37[address] [place], [place] [address]Dr. Shayyroxie Shahriar EGFR-AF [place]IZ[place] 38 mL/min/1.73m2 Critically low >=60 [facility] Comment on above: Performed By: #### C RP, CMP ####[facility] Ndrzurtdmu2406 [place] [address]Dr. Kalie Bess EGFR-NON AF CITIZEN OF [place] 31 mL/min/1.73m2 Critically low >=60 [facility] Comment on above: Performed By: #### C RP, CMP ####[facility] Seqnnbbkhq7040 [place] [address]Dr. Kalie Bess Globulin (S) [Mass/Vol] 4.5 g/dL Normal [facility] Comment on above: Performed By: #### C RP, CMP ####[facility] Lrqwpzhqhz7151 [place] [address]Dr. Kalie Bess Glucose [Mass/Vol] 230 mg/dL Critically high 74-106 T [facility] Comment on above: Performed By: #### C RP, CMP ####[facility] Apwmmcisld374[address] [place], [place] [address]Dr. Kalie Bess Potassium [Moles/Vol] 4.0 mmol/L Normal 3.5-5.1 [facility] Comment on above: Performed By: #### C RP, CMP ####[facility] Euyefxdbjd4[address] [place], [place] [address]Dr. Kalie Bess Protein [Mass/Vol] 6.3 g/dL Critically low 6.4-8.[address] [facility] Comment on above: Performed By: #### C RP, CMP ####[facility] Nmolujnhzw933[address] [place], [place] [address]Dr. Kalie Bess Sodium [Moles/Vol] 132 mmol/L Critically low 136-[address] [facility] Comment on above: Performed By: #### C RP, CMP ####[facility] Ppebfuqlab2955[address] [place], [place] [address]Dr. Kalie Bess Urea nitrogen [Mass/Vol] 45.0 mg/dL Critically high 7.0-18.0 [facility] Comment on above: Performed By: #### C RP, CMP ####[facility] Olixrtnwjb470[address] [place], [place] [address]Dr. Yiroxie Bess Urea nitrogen/Creatinine [Mass ratio] 26.2 mg/mg Normal [facility] Comment on above: Performed By: #### C RP, CMP ####[facility] Stsmsnzdcb8400 [place] [address]Dr. Kalie Bess SED RATE WESTERGRENon 2022 SED RATE 95 mm/hr Critically high <=30 [facility] Comment on above: Performed By: #### S EDR ####[facility] Rcktfkkwrl038[address] [place], [place] [address]Dr. Kalie Bess US BREAST LEFT LIMITEDon US BREAST LEFT LIMITED Normal [facility] ACETONE SERUMon 11-21-2022 ACETONE Negative Normal NEGATIVE [facility] Comment on above: Performed By: #### A CETON ####[facility] Jrzcwhjqxw4534[address] [place], [place] [address]Dr. Kalie Bess CBC W MANUAL DIFFon 11-21-19 23 ANISOCYTOSIS SLIGHT Normal [facility] Comment on above: Performed By: #### C BCMAN ####[facility] Ipbodqogwc729[address] [place], [place] [address]Dr. Kalie Bess ATYPICAL LYMPH # Normal [facility] Comment on above: Performed By: #### C BCMAN ####[facility] Isbqzijsvw516[address] [place], [place] [address]Dr. Kalie Bess ATYPICAL LYMPH % Normal [facility] Comment on above: Performed By: #### C BCMAN ####[facility] Jglnvepypb8014 [place] [address]Dr. Kalie Bess BAND # 1.1 103/ul Critically high 0.0-0.3 [facility] Comment on above: Performed By: #### C BCMAN ####[facility] Axxkomwtok7490 [place] [address]Dr. Shayyroxie Shahriar BAND % 5 % Normal 0-5 [facility] Comment on above: Performed By: #### C BCMAN ####[facility] Mpyhckbqnj6945 [place] [address]Dr. Kalie Bess BASOM # 0.00 103/ul Normal 0.00-0.10 [facility] Comment on above: Performed By: #### C NANCY ####[facility] Rrqhhlxdzg5826 [place] [address]Dr. Kalie Bess BASOM % 0.0 % Critically low 0.2-2.0 [facility] Comment on above: Performed By: #### C NANCY ####[facility] Csowtkhqco0677 [place] [address]Dr. Kalie Bess BLAST # Normal [facility] Comment on above: Performed By: #### C NANCY ####[facility] Hrtzcqeyhc6785 [place] [address]Dr. Kalie Bess BLAST % Normal [facility] Comment on above: Performed By: #### C NANCY ####[facility] Vjqdweudvo35[address] [place], [place] [address]Dr. Kalie Bess CORRECTED WBC Normal 4.0-11.0 [facility] Comment on above: Performed By: #### C NANCY ####[facility] Ekbxbmlhgl1616[address] [place], [place] [address]Dr. Kalie Bess EOS # 0.87 103/ul Critically high 0.00-0.70 [facility] Comment on above: Performed By: #### C NANCY ####[facility] Kuykjzdhpc9[address] [place], [place] [address]Dr. Kalie Bess EOS% 4.0 % Normal 0.9-7.0 [facility] Comment on above: Performed By: #### C NANCY ####[facility] Zexrqdwaor213[address] [place], [place] [address]Dr. Kalie Bess HCT 22.7 % Critically low 36.0-48.0 [facility] Comment on above: Performed By: #### C NANCY ####[facility] Cjfhvrihii618[address] [place], [place] [address]Dr. Kalie Bess HGB 8.2 g/dl Critically low 12.0-16.0 [facility] Comment on above: Performed By: #### C NANCY ####[facility] Ehkphohxkd4027[address] [place], [place] [address]Dr. Kalie Bess LYMPHM # 1.74 103/ul Normal 1.20-3.80 [facility] Comment on above: Performed By: #### C NANCY ####[facility] Wbrnfyctvo6368 [place] [phone]. Kalie Bess LYMPHM% 8.0 % Critically low 20.5-60.0 [facility] Comment on above: Performed By: #### C NANCY ####[facility] Mpgkmqazsj5387 [place] [phone]. Kalie Bess MCH 29.2 pg Normal 26.7-34.0 [facility] Comment on above: Performed By: #### C NANCY ####[facility] Vvlhjdxmdq0791 [place] [phone]. Kalie Bess MCHC 36.1 g/dl Critically high 29.9-35.2 [facility] Comment on above: Performed By: #### C NANCY ####[facility] Xicpslmpiy8253 [place] [address]Dr. Kalie Bess MCV 80.8 fL Critically low 81.0-99.0 [facility] Comment on above: Performed By: #### C NANCY ####[facility] Ltwiaoahwa0784 [place] [phone]. Kalie Bess METAMYELOCYTE # Normal [facility] Comment on above: Performed By: #### C NANCY ####[facility] Eipbdvaacu8417 [place] [phone]. Kalie Bess METAMYELOCYTE % Normal [facility] Comment on above: Performed By: #### C NANCY ####[facility] Zfftyrxnlo8877 [place] [phone]. Kalie Bess MICROCYTOSIS SLIGHT Normal [facility] Comment on above: Performed By: #### C NANCY ####[facility] Cgohuuokxy7614 [place] [phone]. Kalie Bess MONOM# 1.08 103/ul Critically high 0.30-0.80 [facility] Comment on above: Performed By: #### C NANCY ####[facility] Ltjohryvpl8609 [place], [place] [address]Qt. Kalie Bess MONOM% 5.0 % Normal 1.7-12.0 [facility] Comment on above: Performed By: #### C NANCY ####[facility] Vhzmnaculi7202 [place], [place] [address]Xt. Kalie Bess MPV 12.3 fL Normal 9.5-13.5 [facility] Comment on above: Performed By: #### C NANCY ####[facility] Urnyjvwqqc3820 [place], [place] [address]Gy. Kalie Bess MYELOCYTE # Normal [facility] Comment on above: Performed By: #### C NANCY ####[facility] Pzouyqqsvh6280 [place] [phone]. Kalie Bess MYELOCYTE % Normal [facility] Comment on above: Performed By: #### C NANCY ####[facility] Ltlancnfyt8126 [place] [phone]. Kalie Bess NRBC Normal [facility] Comment on above: Performed By: #### C NANCY ####[facility] Walgvoadge2298 [place] [phone]. Kalie Bess PLT 184 103/ul Normal 150-450 [facility] Comment on above: Performed By: #### C NANCY ####[facility] Shjcbivlfh9333 [place], [place] [address]Ph. Kalie Bess RBC 2.81 106/ul Critically low 4.20-5.40 [facility] Comment on above: Performed By: #### C NANCY ####[facility] Yrgjwjbewk3572 [place], [place] [address]Ea. Kalie Bess RDW 13.6 % Normal 11.0-15.0 [facility] Comment on above: Performed By: #### C NANCY ####[facility] Sdvnqqosdf0451 [place] [phone]. Kalie Bess SEG # 16.93 103/ul Critically high 1.40-6.50 [facility] Comment on above: Performed By: #### C BCMAN ####[facility] Dknwcnsvlw1383 [place], [place] [address]Kj. Kalie Bess SEG % 78.0 % Critically high 43.0-75.0 [facility] Comment on above: Performed By: #### C BCMAN ####[facility] Gnxwgmiebp7117 [place], [place] [address]Tx. Kalie Bess WBC 21.7 103/ul Critically high 4.0-11.0 [facility] Comment on above: Performed By: #### C BCMAN ####[facility] Jcomacwdxl1971 [place] [phone]. Kalie Bess CRPon 11-21-2022 CRP 65.5 mg/dL Critically high <=1.0 [facility] Comment on above: Performed By: #### C RP ####[facility] Pvvclqfsjr6064 [place], [place] [address]Xa. Kalie Bess CULTURE BLOODon 11-21-2022 Microscopic examination of blood, culture Culture Observations: NO GROWTH AT 5 DAYS. Normal [facility] Comment on above: Performed By: #### B LDCX2 ####[facility] Mjyhyumvgt2747 [place] [phone]. Kalie Bess Microscopic examination of blood, culture Culture Observations: NO GROWTH AT 5 DAYS. Normal [facility] Comment on above: Performed By: #### B LDCX1 ####[facility] Ylwclguyhy8000 [place] [phone]. Kalie Bess Covid-19 PCR (CVDTB)on 10-27 SARS-CoV-2 (COVID-19) RNA CIPRIANO+probe Ql (Unsp spec) Not detected Normal NOT DETECTED [facility] Comment on above: Result Comment: When diagnostic testing is negative, the possibility of a false negative should be considered inthe context of a patient's recent exposures and the presence of clinical signs and symptomsconsistent with SARS-CoV-2.This test is not yet approved or cleared by the [place] FDA. When there are no FDA-approved or cleared tests available, and other criteria are met, FDA can make tests available under an emergency access mechanism called an Emergency Use Authorization (EUA). The EUA for this test is supported by the [employer] Assistant of Health and Human Service's declaration that circumstances exist to justify the emergency use of in vitro diagnostics for the detection and/or diagnosis of the virus that causes COVID-19. This EUA will remain in effect for the duration of the COVID-19 declaration justifying emergency of IVDs, unless it is terminated or revoked by the FDA (after which the test may no longer be used). Performed By: #### C VDTBH ####[facility] Apinujslzi9369 [place] [address]Dr. Kalie Bess LACTATE/LACTIC ACIDon 2022 Lactate [Moles/Vol] 1.1 mmol/L Normal 0.4-1.9 [facility] Comment on above: Performed By: #### L ACT ####[facility] [address]xvhaawjzk[address] [place] [address]DrCassie Bess Lactate [Moles/Vol] 2.2 mmol/L Critically high 0.4-1.9 [facility] Comment on above: Performed By: #### L ACT ####[facility] Upsuzajuma[address] [place], [place] [address]Dr. Kalie Bess POINT OF CARE GLUCOSEon 10-27 Glucose [Mass/Vol] 343 mg/dL Critically high 74-106 [facility] Comment on above: Performed By: #### P OCGLUC ####[facility] Pgtpmektcd[address] [place], [place] [address]DrCassie Bess PROF 14(COMP METB)on 023 Albumin [Mass/Vol] 2.0 g/dL Critically low 3.4-5.[address] [facility] Comment on above: Performed By: #### C MP ####[facility] Egapfgyklp[address] [place], [place] [address]DrCassie Bess Albumin/Globulin [Mass ratio] 0.4 {ratio} Normal [facility] Comment on above: Performed By: #### C MP ####[facility] Iehtwexubf[address] [place], [place] [address]DrCassie Bess ALP [Catalytic activity/Vol] 126 U/L Critically high 46-116 [facility] Comment on above: Performed By: #### C MP ####[facility] Afrilnqcsm17[address] [place] [phone]. Kalie Bess ALT [Catalytic activity/Vol] 35 U/L Normal 14-59 [facility] Comment on above: Performed By: #### C MP ####[facility] Xzvddrefcz6303 [place] [phone]. Kalie Bess Anion gap [Moles/Vol] 14.6 mmol/L Normal [facility] Comment on above: Performed By: #### C MP ####[facility] Ozlwemcwwr2667 [place] [phone]. Kalie Bess AST [Catalytic activity/Vol] 27 U/L Normal 15-37 [facility] Comment on above: Performed By: #### C MP ####[facility] Protxizxrv[address] [place] [address]Dr. Kalie Shahriar Bilirubin [Mass/Vol] 0.3 mg/dL Normal 0.2-1.0 [facility] Comment on above: Performed By: #### C MP ####[facility] Kgteezjqry5875 [place] [address]Dr. Kalie Shahriar Calcium [Mass/Vol] 8.9 mg/dL Normal 8.5-10.1 [facility] Comment on above: Performed By: #### C MP ####[facility] Ttrepzjbdo8[address] [place] [address]Dr. Kalie Shahriar Chloride [Moles/Vol] 92 mmol/L Critically low 98-107 [facility] Comment on above: Performed By: #### C MP ####[facility] Rlzkkufabb5020 [place] [phone]. Kalie Bess CO2 [Moles/Vol] 27.2 mmol/L Normal 21.0-32.0 [facility] Comment on above: Performed By: #### C MP ####[facility] Tqzmokbqjv4976 [place] [phone]. Kalie Shahriar Creatinine [Mass/Vol] 2.03 mg/dL Critically high 0.55-1.02 [facility] Comment on above: Performed By: #### C MP ####[facility] Cxvkzlwsdx2624 [place] [phone]. Kalie Bess EGFR-AF CITIZEN OF [place] 31 mL/min/1.73m2 Critically low >=60 [facility] Comment on above: Performed By: #### C MP ####[facility] Bemgpzwryz2004 [place] [phone]. Kalie Shahriar EGFR-NON AF CITIZEN OF [place] 26 mL/min/1.73m2 Critically low >=60 [facility] Comment on above: Performed By: #### C MP ####[facility] Eguffczfzf5368 [place] [phone]. Kalie Shahriar Globulin (S) [Mass/Vol] 4.9 g/dL Normal [facility] Comment on above: Performed By: #### C MP ####[facility] Cjvvobzfra8494 [place] [phone]. Kalie Bess Glucose [Mass/Vol] 329 mg/dL Critically high 74-106 T [facility] Comment on above: Performed By: #### C MP ####[facility] Pkinqvdkjm2896 [place] [phone]. Shayyroxie Bess Potassium [Moles/Vol] 3.8 mmol/L Normal 3.5-5.1 [facility] Comment on above: Performed By: #### C MP ####[facility] Jaboquzzin6222 [place] [phone]. Kalie Bess Protein [Mass/Vol] 6.9 g/dL Normal 6.4-8.2 [facility] Comment on above: Performed By: #### C MP ####[facility] Ylauttaove[address]854 [place] [phone]. Kalie Bess Sodium [Moles/Vol] 130 mmol/L Critically low 136-[address] [facility] Comment on above: Performed By: #### C MP ####[facility] Uuuomfufbd8458 [place] [phone]. Kalie Bess Urea nitrogen [Mass/Vol] 52.0 mg/dL Critically high 7.0-18.0 [facility] Comment on above: Performed By: #### C MP ####[facility] Ddghcyldlf8487 [place] [address]Dr. Kalie Bess Urea nitrogen/Creatinine [Mass ratio] 25.6 mg/mg Normal [facility] Comment on above: Performed By: #### C MP ####[facility] Ygkyxwcvpx7832 [place] [address]Dr. Kalie Bess PROTIMEon 11-21-2022 INR Coag (PPP) [Relative time] 1.03 {INR} Normal [facility] Comment on above: Performed By: #### P T, PTT ####[facility] Khnsejpbmv20[address] [place], [place] [address]Dr. Kalie Bess INR GUIDELINES SEE BELOW Normal [facility] Comment on above: Result Comment: GABRIELLA RED INR: 2.0 - 3.0 CONDITIONS NOT LISTED BELOW 2.5 - 3.5 FOR PROSTHETIC HEART VALVE REPLACEMENT 2.5 - 3.5 RECURRENT THROMBOSIS Performed By: #### P T, PTT ####[facility] Towjjpgzdh5985[address] [place], [place] [address]Dr. Kalie Bess PT Coag (PPP) [Time] 10.9 s Normal 9.0-11.6 [facility] Comment on above: Performed By: #### P T, PTT ####[facility] Thmggvcigg449[address] [place], [place] [address]Dr. Kalie Bess PTTon 11-21-2022 aPTT Coag (Bld) [Time] 27.3 s Normal 22.3-36.2 [facility] Comment on above: Performed By: #### P T, PTT ####[facility] Rdgurfibvx9725[address] [place], [place] [address]Dr. Kalie Bess SED RATE POUND RIDGEERGRENon 2022 SED RATE 63 mm/hr Critically high <=30 [facility] Comment on above: Performed By: #### S EDR ####[facility] Uvobjmywqd3510[address] [place], [place] [address]Dr. Kalie Bess ACID FAST SMEAR AND CXon Acid Fast Culture Negative Normal [facility] Comment on above: Result Comment: No a junior fast bacilli isolated after 6 weeks. Performed By: #### A FB ####[facility] Cydosimuib44[address] [place] [address]Dr. Kalie Bess Acid Fast Smear Negative Normal [facility] Comment on above: Performed By: #### A FB ####[facility] Lablmfemrz0637 [place] [phone]. Kalie Bess AF[employer] Specimen Processing Direct Inoculation Normal [facility] Comment on above: Performed By: #### A FB ####[facility] Qocfqjrzkq[address] [place], [place] [id number]. Kalie Bess FUNGAL CULTUREon 09-01-2022 Fungus (Mycology) Culture Final report Normal [facility] Comment on above: Performed By: #### C XFUN ####[facility] Dxlqcgawzi764[address] [place], [place] [address]Dr. Kalie Bess Fungus Stain Final report Normal [facility] Comment on above: Performed By: #### C XFUN ####[facility] Zimlwkyykv75[address] [place], [place] [address]Dr. Kalie Bess Result 1 Comment Normal [facility] Comment on above: Result Comment: GILMA/ Calcofluor preparation: no fungus observed. Performed By: #### C XFUN ####[facility] Udrjywfsup908[address] [place], [place] [address]Dr. Kalie Bess Result Comment: No y east or mold isolated after 4 weeks. BNPon 08-05-2022 Natriuretic peptide B (Bld) [Mass/Vol] 3827.0 pg/mL Critically high <=900.0 [facility] Comment on above: Performed By: #### B MP, BNP ####[facility] Wgtdnbzdsx0509[address] [place], [place] [address]Dr. Kalie Bess CBC AUTO DIFFon 08-05-2022 BASO # 0.0 103/ul Normal 0.0-0.1 [facility] Comment on above: Performed By: #### C BC ####[facility] Rbhcjrnzzn8739[address] [place], [place] [address]Dr. Kalie Bess Basophils/100 WBC (Bld) 0.1 % Critically low 0.2-2.0 [facility] Comment on above: Performed By: #### C BC ####[facility] Lyduqslyzc238[address] [place], [place] [address]DrCassie Bess EO # 0.0 103/ul Normal 0.0-0.7 [facility] Comment on above: Performed By: #### C BC ####[facility] Ikhlmcafab1155[address] [place], [place] [address]DrCassie Bess Eosinophils/100 WBC (Bld) 0.0 % Critically low 0.9-7.0 [facility] Comment on above: Performed By: #### C BC ####[facility] Ssgnsqyczo6910[address] [place], [place] [address]DrCassie Bess Erythrocyte distribution width (RBC) [Ratio] 13.9 % Normal 11.0-15.0 [facility] Comment on above: Performed By: #### C BC ####[facility] Yzphdphpvb1960[address] [place], [place] [address]DrCassie Bess Hematocrit (Bld) [Volume fraction] 32.9 % Critically low 36.0-48.0 [facility] Comment on above: Performed By: #### C BC ####[facility] Bmqdlpencv310[address] [place], [place] [address]DrCassie Bess Hemoglobin (Bld) [Mass/Vol] 10.5 g/dL Critically low 12.0-16.0 [facility] Comment on above: Performed By: #### C BC ####[facility] Zvjkppgpxn95[address] [place], [place] [address]DrCassie Bess IG # 0.11 10e3/ul Critically high 0.00-0.03 [facility] Comment on above: Performed By: #### C BC ####[facility] Rrzxdejpaj6635[address] [place], [place] [address]DrCassie Bess IG % 0.7 % Critically high 0.0-0.5 [facility] Comment on above: Performed By: #### C BC ####[facility] Jtuofvtblz[address] [place], [place] [address]DrCassie Bess LYMPH # 1.6 103/ul Normal 1.2-3.8 [facility] Comment on above: Performed By: #### C BC ####[facility] Ktdvoofgoz6229 [place] [address]DrCassie Bess Lymphocytes/100 WBC (Bld) 9.5 % Critically low 20.5-60.0 [facility] Comment on above: Performed By: #### C BC ####[facility] Nwoapxrwgl0756 [place] [address]DrCassie Bess MANUAL DIFF REQ NO Normal [facility] Comment on above: Performed By: #### C BC ####[facility] Yrsxrnbcvt4830 [place] [address]DrCassie Bess MCH (RBC) [Entitic mass] 28.7 pg Normal 26.7-34.0 [facility] Comment on above: Performed By: #### C BC ####[facility] Pbhagvtebf8237 [place] [address]DrCassie Bess MCHC (RBC) [Mass/Vol] 31.9 g/dL Normal 29.9-35.2 [facility] Comment on above: Performed By: #### C BC ####[facility] Tsxmgoebsl09[address] [place], [place] [address]DrCassie Bess MCV (RBC) [Entitic vol] 89.9 fL Normal 81.0-99.0 [facility] Comment on above: Performed By: #### C BC ####[facility] Ojpydltgvy6165 [place] [address]DrCassie Bess MONO # 0.5 103/ul Normal 0.3-0.8 [facility] Comment on above: Performed By: #### C BC ####[facility] Kdubiilohd20[address] [place], [place] [address]DrCassie Bess Monocytes/100 WBC (Bld) 2.9 % Normal 1.7-12.0 [facility] Comment on above: Performed By: #### C BC ####[facility] Mwnvbjagwv8423[address] [place], [place] [address]DrCassie Bess NEUT # 14.5 103/ul Critically high 1.4-6.5 [facility] Comment on above: Performed By: #### C BC ####[facility] Cmumissbiz3509 [place] [phone] Kalie Bess Neutrophils/100 WBC (Bld) 86.8 % Critically high 43.0-75.0 [facility] Comment on above: Performed By: #### C BC ####[facility] Suzotxdyce5621 [place] [address]DrCassie Kalie Bess Platelet mean volume (Bld) [Entitic vol] 12.0 fL Normal 9.5-13.5 [facility] Comment on above: Performed By: #### C BC ####[facility] Zjxckfkxye959[address] [place], [place] [address]DrCassie Lucasroxie Shahriar PLT 245 103/ul Normal 150-450 [facility] Comment on above: Performed By: #### C BC ####[facility] Avwrzmyxyt5487[address] [place], [place] [address]DrCassie Lucasroxie Shahriar RBC 3.66 106/ul Critically low 4.20-5.40 [facility] Comment on above: Performed By: #### C BC ####[facility] Lfqmvieygh9[address] [place], [place] [address]DrCassie Kalie Bess WBC 16.7 103/ul Critically high 4.0-11.0 [facility] Comment on above: Performed By: #### C BC ####[facility] Ncvftnlceh4918[address] [place], [place] [address]DrCassie Bess PROF CHEM 8 (BAS METB)on Anion gap [Moles/Vol] 10.1 mmol/L Normal [facility] Comment on above: Performed By: #### B MP, BNP ####[facility] Vrlcbwfgbe03[address] [place], [place] [address]DrCassie Bess Calcium [Mass/Vol] 8.4 mg/dL Critically low 8.5-10.[address] [facility] Comment on above: Performed By: #### B MP, BNP ####[facility] Tfkwpfxjad4601[address] [place], [place] [address]Dr. Kalie Bess Chloride [Moles/Vol] 96 mmol/L Critically low 98-107 [facility] Comment on above: Performed By: #### B MP, BNP ####[facility] Rmqvxgyxim579[address] [place], [place] [address]Dr. Kalie Bess CO2 [Moles/Vol] 36.0 mmol/L Critically high 21.0-32.0 [facility] Comment on above: Performed By: #### B MP, BNP ####[facility] Boglulxmns1367[address] [place], [place] [address]Dr. Kalie Bess Creatinine [Mass/Vol] 1.64 mg/dL Critically high 0.55-1.02 [facility] Comment on above: Performed By: #### B MP, BNP ####[facility] Jyakpolntw8738[address] [place], [place] [address]Dr. Kalie Bess EGFR-AF CITIZEN [place] 40 mL/min/1.73m2 Critically low >=60 [facility] Comment on above: Performed By: #### B MP, BNP ####[facility] Qtrjfpctoi2595[address] [place], [place] [address]Dr. Kalie Shahriar EGFR-NON AF CITIZEN OF [place] 33 mL/min/1.73m2 Critically low >=60 [facility] Comment on above: Performed By: #### B MP, BNP ####[facility] Wthnfjpond455387 [address] [place], [place] [address]Dr. Kalie Bess Glucose [Mass/Vol] 279 mg/dL Critically high 74-106 [facility] Comment on above: Performed By: #### B MP, BNP ####[facility] Qswqqqthot7618[address] [place], [place] [address]Dr. Kalie Bess Potassium [Moles/Vol] 4.1 mmol/L Normal 3.5-5.1 [facility] Comment on above: Performed By: #### B MP, BNP ####[facility] Weubczgjhn7750[address] [place], [place] [address]Dr. Kalie Bess Sodium [Moles/Vol] 138 mmol/L Normal 136-145 [facility] Comment on above: Performed By: #### B MP, BNP ####[facility] Xxzvzffydl4770[address] [place], [place] [address]Dr. Kalie Bess Urea nitrogen [Mass/Vol] 36.0 mg/dL Critically high 7.0-18.0 [facility] Comment on above: Performed By: #### B MP, BNP ####[facility] Fvvqtnfmyg6559[address] [place], [place] [address]Dr. Shayyroxie Bess Urea nitrogen/Creatinine [Mass ratio] 22.0 mg/mg Normal [facility] Comment on above: Performed By: #### B MP, BNP ####[facility] Miwrtjpqyo544[address] [place], [place] [address]Dr. Kalie Shahriar BNPon 08-04-2022 Natriuretic peptide B (Bld) [Mass/Vol] 2969.0 pg/mL Critically high <=900.0 [facility] Comment on above: Performed By: #### B MATCHBOOK ASSEMBLER ####[facility] Uscpwmaspi7[address] [place], [place] [address]Dr. Kalie Shahriar CBC AUTO DIFFon 08-04-2022 BASO # 0.0 103/ul Normal 0.0-0.1 [facility] Comment on above: Performed By: #### C BC ####[facility] Jbwtfvqqit9269[address] [place], [place] [address]Dr. Kalie Bess Basophils/100 WBC (Bld) 0.2 % Normal 0.2-2.0 [facility] Comment on above: Performed By: #### C BC ####[facility] Nbdencyumx350[address] [place], [place] [address]Dr. Kalie Shahriar EO # 0.0 103/ul Normal 0.0-0.7 [facility] Comment on above: Performed By: #### C BC ####[facility] Ajfiiycbge3200[address] [place], [place] [address]Dr. Kalie Bess Eosinophils/100 WBC (Bld) 0.1 % Critically low 0.9-7.0 [facility] Comment on above: Performed By: #### C BC ####[facility] Rxaaqjuivz748[address] [place], [place] [address]Dr. Kalie Bess Erythrocyte distribution width (RBC) [Ratio] 13.9 % Normal 11.0-15.0 [facility] Comment on above: Performed By: #### C BC ####[facility] Wgjezoqoot5549 [place] [address]Dr. Kalie Bess Hematocrit (Bld) [Volume fraction] 33.4 % Critically low 36.0-48.0 [facility] Comment on above: Performed By: #### C BC ####[facility] Mvzsreznxm7329[address] [place], [place] [address]Dr. Shayyroxie Shahriar Hemoglobin (Bld) [Mass/Vol] 10.6 g/dL Critically low 12.0-16.0 [facility] Comment on above: Performed By: #### C BC ####[facility] Eoxgssmusu839[address] [place], [place] [address]Dr. Kalie Bess IG # 0.12 10e3/ul Critically high 0.00-0.03 [facility] Comment on above: Performed By: #### C BC ####[facility] Kkqrsevcbx1255[address] [place], [place] [address]Dr. Kalie Bess IG % 1.0 % Critically high 0.0-0.5 [facility] Comment on above: Performed By: #### C BC ####[facility] Tpbknzldtw482[address] [place], [place] [address]Dr. Kalie Bess LYMPH # 1.4 103/ul Normal 1.2-3.8 [facility] Comment on above: Performed By: #### C BC ####[facility] Ropayizaij998[address] [place], [place] [address]Dr. Kalie Bess Lymphocytes/100 WBC (Bld) 11.1 % Critically low 20.5-60.0 [facility] Comment on above: Performed By: #### C BC ####[facility] Omlalzucma0865[address] [place], [place] [address]Dr. Kalie Bess MANUAL DIFF REQ NO Normal [facility] Comment on above: Performed By: #### C BC ####[facility] Nzldbswneo7805[address] [place], [place] [address]Dr. Kalie Bess MCH (RBC) [Entitic mass] 28.4 pg Normal 26.7-34.0 [facility] Comment on above: Performed By: #### C BC ####[facility] Xwefezpxzr8820 [place] [address]Dr. Kalie Bess MCHC (RBC) [Mass/Vol] 31.7 g/dL Normal 29.9-35.2 [facility] Comment on above: Performed By: #### C BC ####[facility] Bnvhbxoxby5270[address] [place], [place] [address]Dr. Kalie Shahriar MCV (RBC) [Entitic vol] 89.5 fL Normal 81.0-99.0 [facility] Comment on above: Performed By: #### C BC ####[facility] Ibztwgnxso6622[address] [place], [place] [address]Dr. Kalie Bess MONO # 0.3 103/ul Normal 0.3-0.8 [facility] Comment on above: Performed By: #### C BC ####[facility] Bsmjfbrhef40[address] [place], [place] [address]Dr. Shayyroxie Bess Monocytes/100 WBC (Bld) 2.2 % Normal 1.7-12.0 [facility] Comment on above: Performed By: #### C BC ####[facility] Nmfqfdbgvq098[address] [place], [place] [address]Dr. Kalie Shahriar NEUT # 10.8 103/ul Critically high 1.4-6.5 [facility] Comment on above: Performed By: #### C BC ####[facility] Medldsdoom4797[address] [place], [place] [address]Dr. Kalie Bess Neutrophils/100 WBC (Bld) 85.4 % Critically high 43.0-75.0 [facility] Comment on above: Performed By: #### C BC ####[facility] Ojxdszuags1132[address] [place], [place] [address]Dr. Shayyroxie Bess Platelet mean volume (Bld) [Entitic vol] 11.9 fL Normal 9.5-13.5 [facility] Comment on above: Performed By: #### C BC ####[facility] Zajbqgbiuf5097 [place] [id number]. Kalie Bess PLT 256 103/ul Normal 150-450 [facility] Comment on above: Performed By: #### C BC ####[facility] Aierolfrup9494 [place] [phone]. Kalie Bess RBC 3.73 106/ul Critically low 4.20-5.40 [facility] Comment on above: Performed By: #### C BC ####[facility] Zfqhudsyuj9089 [place] [id number]. Kalie Bess WBC 12.6 103/ul Critically high 4.0-11.0 [facility] Comment on above: Performed By: #### C BC ####[facility] Bumxgfbroq46[address] [place], [place] [address]Dr. Kalie Bess PH, BODY FLUIDon 08-04-2022 pH, Body Fluid 7.7 Normal Not Estab. [facility] Comment on above: Result Comment: The reference interval(s) and other method performance specificationshave not been established for this body fluid. The test result must beintegrated into the clinical context for interpretation. Performed By: #### B DYFLPH ####[facility] Cmasfbquxe480[address] [place], [place] [address]Dr. Kalie Shahriar POINT OF CARE GLUCOSEon 07-26 Glucose [Mass/Vol] 355 mg/dL Critically high 74-106 [facility] Comment on above: Performed By: #### P OCGLUC ####[facility] Yhoekemyng208[address] [place], [place] [address]Dr. Kalie Bess Glucose [Mass/Vol] 405 mg/dL Critically high 74-106 [facility] Comment on above: Performed By: #### P OCGLUC ####[facility] Dmezymukcr0950[address] [place], [place] [address]Dr. Kalie Bess Glucose [Mass/Vol] 351 mg/dL Critically high 74-106 [facility] Comment on above: Performed By: #### P OCGLUC ####[facility] Zdyntbqiol6733[address] [place], [place] [address]Dr. Kalie Bess PROF CHEM 8 (BAS METB)on Anion gap [Moles/Vol] 10.1 mmol/L Normal [facility] Comment on above: Performed By: #### B MP ####[facility] Ndeceluaiu7864[address] [place], [place] [address]Dr. Shayyroxie Shahriar Calcium [Mass/Vol] 8.6 mg/dL Normal 8.5-10.1 [facility] Comment on above: Performed By: #### B MP ####[facility] Emjzdtlpes134[address] [place], [place] [address]Dr. Kalie Bess Chloride [Moles/Vol] 99 mmol/L Normal 98-107 [facility] Comment on above: Performed By: #### B MP ####[facility] Rtuivcsetp9438[address] [place], [place] [address]Dr. Kalie Bess CO2 [Moles/Vol] 33.0 mmol/L Critically high 21.0-32.0 [facility] Comment on above: Performed By: #### B MP ####[facility] Bxgxubxznu126[address] [place], [place] [address]Dr. Kalie Bess Creatinine [Mass/Vol] 1.54 mg/dL Critically high 0.55-1.02 [facility] Comment on above: Performed By: #### B MP ####[facility] Qpdganxbpa632[address] [place], [place] [address]Dr. Kalie Bess EGFR-AF CITIZEN OF [place] 43 mL/min/1.73m2 Critically low >=60 [facility] Comment on above: Performed By: #### B MP ####[facility] Ngmziddbvf639[address] [place], [place] [address]Dr. Kalie Bess EGFR-NON AF CITIZEN OF [place] 36 mL/min/1.73m2 Critically low >=60 [facility] Comment on above: Performed By: #### B MP ####[facility] Wrgenxdobm[address] [place], [place] [address]Dr. Kalie Bess Glucose [Mass/Vol] 264 mg/dL Critically high 74-106 [facility] Comment on above: Performed By: #### B MP ####[facility] Zbclcwpyku413[address] [place], [place] [address]Dr. Kalie Bess Potassium [Moles/Vol] 4.1 mmol/L Normal 3.5-5.1 [facility] Comment on above: Performed By: #### B MP ####[facility] Igmewncrek[address] [place] [address]Dr. Kalie Bess Sodium [Moles/Vol] 138 mmol/L Normal 136-145 [facility] Comment on above: Performed By: #### B MP ####[facility] Olzrkeixux430[address] [place], [place] [address]Dr. Kalie Bess Urea nitrogen [Mass/Vol] 27.0 mg/dL Critically high 7.0-18.0 [facility] Comment on above: Performed By: #### B MP ####[facility] Nxkqhvdned237187 [address] [place], [place] [address]Dr. Kalie Shahriar Urea nitrogen/Creatinine [Mass ratio] 17.5 mg/mg Normal [facility] Comment on above: Performed By: #### B MP ####[facility] Njlnzfwspz427[address] [place], [place] [address]Dr. Kalie Bess XR CHEST 2 Von 08-04-2022 XR CHEST 2 V Normal [facility] CBC AUTO DIFFon 08-03-2022 BASO # 0.1 103/ul Normal 0.0-0.1 [facility] Comment on above: Performed By: #### C BC ####[facility] Pmcdapphci41[address] [place], [place] [address]Dr. Shayyroxie Shahriar Basophils/100 WBC (Bld) 0.4 % Normal 0.2-2.0 [facility] Comment on above: Performed By: #### C BC ####[facility] Utkpycyjfu624187 [address] [place], [place] [address]Dr. Shayyroxie Shahriar EO # 0.6 103/ul Normal 0.0-0.7 [facility] Comment on above: Performed By: #### C BC ####[facility] Ljdcdbgavf887[address] [place], [place] [address]Dr. Kalie Bess Eosinophils/100 WBC (Bld) 4.3 % Normal 0.9-7.0 [facility] Comment on above: Performed By: #### C BC ####[facility] Uoturzqcrx[address] [place] [address]Dr. Kalie Bess Erythrocyte distribution width (RBC) [Ratio] 14.2 % Normal 11.0-15.0 [facility] Comment on above: Performed By: #### C BC ####[facility] Moxbggyrha044[address] [place], [place] [address]Dr. Kalie Bess Hematocrit (Bld) [Volume fraction] 32.1 % Critically low 36.0-48.0 [facility] Comment on above: Performed By: #### C BC ####[facility] Kiomuubwbu686187 [address] [place], [place] [address]Dr. Kalie Bess Hemoglobin (Bld) [Mass/Vol] 10.3 g/dL Critically low 12.0-16.0 [facility] Comment on above: Performed By: #### C BC ####[facility] Premxiawkn268287 [address] [place], [place] [address]Dr. Kalie Bess IG # 0.06 10e3/ul Critically high 0.00-0.03 [facility] Comment on above: Performed By: #### C BC ####[facility] Tvfcwhcjhp896[address] [place], [place] [address]Dr. Kalie Bess IG % 0.4 % Normal 0.0-0.5 [facility] Comment on above: Performed By: #### C BC ####[facility] Auqhumqvqn272987 [address] [place], [place] [address]Dr. Kalie Bess LYMPH # 3.0 103/ul Normal 1.2-3.8 [facility] Comment on above: Performed By: #### C BC ####[facility] Tfqtwnjess1645[address] [place], [place] [address]Dr. Kalie Bess Lymphocytes/100 WBC (Bld) 21.0 % Normal 20.5-60.0 [facility] Comment on above: Performed By: #### C BC ####[facility] Ffvtmpvyki637987 [address] [place], [place] [address]Dr. Kalie Bess MANUAL DIFF REQ NO Normal [facility] Comment on above: Performed By: #### C BC ####[facility] Rxtaddyzgz0393 [place] [phone]. Kalie Bess MCH (RBC) [Entitic mass] 28.9 pg Normal 26.7-34.0 [facility] Comment on above: Performed By: #### C BC ####[facility] Pmxdvoodgu7759 [place] [phone]. Kalie Bess MCHC (RBC) [Mass/Vol] 32.1 g/dL Normal 29.9-35.2 [facility] Comment on above: Performed By: #### C BC ####[facility] Wvualwsrms6257 [place] [address]Dr. Kalie Shahriar MCV (RBC) [Entitic vol] 89.9 fL Normal 81.0-99.0 [facility] Comment on above: Performed By: #### C BC ####[facility] Hpojxtdjlp3826[address] [place], [place] [address]Dr. Kalie Bess MONO # 1.0 103/ul Critically high 0.3-0.8 [facility] Comment on above: Performed By: #### C BC ####[facility] Jnafjkqngn0189[address] [place], [place] [address]Dr. Shayyroxie Bess Monocytes/100 WBC (Bld) 6.9 % Normal 1.7-12.0 [facility] Comment on above: Performed By: #### C BC ####[facility] Ypyqodrrcb0865[address] [place], [place] [address]Dr. Kalie Bess NEUT # 9.5 103/ul Critically high 1.4-6.5 [facility] Comment on above: Performed By: #### C BC ####[facility] Zbomngksul88[address] [place], [place] [address]DrCassie Shayyroxie Bess Neutrophils/100 WBC (Bld) 67.0 % Normal 43.0-75.0 [facility] Comment on above: Performed By: #### C BC ####[facility] Nihgwjzfse4540 [place] [phone]. Kalie Bess Platelet mean volume (Bld) [Entitic vol] 11.6 fL Normal 9.5-13.5 [facility] Comment on above: Performed By: #### C BC ####[facility] Tuntgfkaph0569 [place] [phone]. Kalie Bess PLT 227 103/ul Normal 150-450 [facility] Comment on above: Performed By: #### C BC ####[facility] Jwrqdititx6811 [place], [place] [address]Xd. Kalie Bess RBC 3.57 106/ul Critically low 4.20-5.40 [facility] Comment on above: Performed By: #### C BC ####[facility] Gpjotpwnhm[address] [place] [phone]. Kalie Bess WBC 14.1 103/ul Critically high 4.0-11.0 [facility] Comment on above: Performed By: #### C BC ####[facility] Lowqgskyte3392 [place] [phone]. Shayyroxie Shahriar POINT OF CARE GLUCOSEon Glucose [Mass/Vol] 340 mg/dL Critically high 74-106 [facility] Comment on above: Performed By: #### P OCGLUC ####[facility] Hlyihvlwkr9661 [place] [address]Dr. Kalie Bess Glucose [Mass/Vol] 270 mg/dL Critically high 74-106 [facility] Comment on above: Performed By: #### P OCGLUC ####[facility] Hkuvbofhpo1072 [place] [phone]. Shayyroxie Shahriar Glucose [Mass/Vol] 176 mg/dL Critically high 74-106 [facility] Comment on above: Performed By: #### P OCGLUC ####[facility] Knocyvedud4659 [place] [phone]. Shayyroxie Bess Glucose [Mass/Vol] 178 mg/dL Critically high -106 [facility] Comment on above: Performed By: #### P OCGLUC ####[facility] Qxdhreeacc8384 [place] [address]Dr. Kalie Bess PROF CHEM 8 (BAS METB)on Anion gap [Moles/Vol] 5.7 mmol/L Normal [facility] Comment on above: Performed By: #### B MP ####[facility] Lcvfaicxjf1614[address] [place], [place] [address]Dr. Kalie Bess Calcium [Mass/Vol] 8.4 mg/dL Critically low 8.5-10.1 Th e [facility] Comment on above: Performed By: #### B MP ####[facility] Jvgwiyhxsg639187 [address] [place], [place] [address]Dr. Kalie Bess Chloride [Moles/Vol] 100 mmol/L Normal 98-107 [facility] Comment on above: Performed By: #### B MP ####[facility] Kxwlalwoby539[address] [place], [place] [address]Dr. Kalie Bess CO2 [Moles/Vol] 34.0 mmol/L Critically high 21.0-32.0 [facility] Comment on above: Performed By: #### B MP ####[facility] Fisgnnnkhy350387 [address] [place], [place] [address]Dr. Kalie Bess Creatinine [Mass/Vol] 1.25 mg/dL Critically high 0.55-1.02 [facility] Comment on above: Performed By: #### B MP ####[facility] Hxuitlwvmm0027[address] [place], [place] [address]Dr. Kalie Bess EGFR-AF CITIZEN [place] 55 mL/min/1.73m2 Critically low >=60 [facility] Comment on above: Performed By: #### B MP ####[facility] Ogwoigysnk755[address] [place], [place] [address]Dr. Kalie Bess EGFR-NON AF CITIZEN OF [place] 45 mL/min/1.73m2 Critically low >=60 [facility] Comment on above: Performed By: #### B MP ####[facility] Dlxifelsxn380187 [address] [place], [place] [address]Dr. Kalie Bess Glucose [Mass/Vol] 193 mg/dL Critically high 74-106 [facility] Comment on above: Performed By: #### B MP ####[facility] Qvvcnnxbmd266087 [address] [place], [place] [address]Dr. Kalie Bess Potassium [Moles/Vol] 3.7 mmol/L Normal 3.5-5.1 [facility] Comment on above: Performed By: #### B MP ####[facility] Hosxurduyi549[address] [place] [address]Dr. Kalie Bess Sodium [Moles/Vol] 136 mmol/L Normal 136-145 [facility] Comment on above: Performed By: #### B MP ####[facility] Hfnaehabog2782 [place] [address]Dr. Kalie Bess Urea nitrogen [Mass/Vol] 24.0 mg/dL Critically high 7.0-18.0 [facility] Comment on above: Performed By: #### B MP ####[facility] Klrcqegipe059487 [address] [place], [place] [address]Dr. Kalie Shahriar Urea nitrogen/Creatinine [Mass ratio] 19.2 mg/mg Normal [facility] Comment on above: Performed By: #### B MP ####[facility] Psiuxerbsg786587 [address] [place], [place] [address]Dr. Kalie Bess XR CHEST 2 Von 08-03-2022 XR CHEST 2 V Normal [facility] CBC AUTO DIFFon 08-02-2022 BASO # 0.1 103/ul Normal 0.0-0.1 [facility] Comment on above: Performed By: #### C BC ####[facility] Okcdhzpiro37[address] [place] [address]Dr. Kalie Shhariar Basophils/100 WBC (Bld) 0.4 % Normal 0.2-2.0 [facility] Comment on above: Performed By: #### C BC ####[facility] Cktldqrjlg897[address] [place], [place] [address]Dr. Kalie Shahriar EO # 0.5 103/ul Normal 0.0-0.7 [facility] Comment on above: Performed By: #### C BC ####[facility] Cviijhuxyp2528 [place] [address]Dr. Shayyroxie Shahriar Eosinophils/100 WBC (Bld) 4.0 % Normal 0.9-7.0 [facility] Comment on above: Performed By: #### C BC ####[facility] Sjuhetmsdy8027 [place] [address]Dr. Kalie Bess Erythrocyte distribution width (RBC) [Ratio] 14.1 % Normal 11.0-15.0 [facility] Comment on above: Performed By: #### C BC ####[facility] Vezkmrdkzg9527 [place] [address]Dr. Kalie Bess Hematocrit (Bld) [Volume fraction] 32.4 % Critically low 36.0-48.0 [facility] Comment on above: Performed By: #### C BC ####[facility] Difiyyarul3238 [place] [address]Dr. Kalie Bess Hemoglobin (Bld) [Mass/Vol] 10.7 g/dL Critically low 12.0-16.0 [facility] Comment on above: Performed By: #### C BC ####[facility] Ksxepbjxxu3940[address] [place], [place] [address]Dr. Kalie Bess IG # 0.08 10e3/ul Critically high 0.00-0.03 [facility] Comment on above: Performed By: #### C BC ####[facility] Wzjwgufflj048387 [address] [place], [place] [address]Dr. Kalie Bess IG % 0.6 % Critically high 0.0-0.5 [facility] Comment on above: Performed By: #### C BC ####[facility] Yvzhiuxdcp110[address] [place], [place] [address]Dr. Shayyroxie Bess LYMPH # 2.9 103/ul Normal 1.2-3.8 [facility] Comment on above: Performed By: #### C BC ####[facility] Ywcfaxpvzp024587 [address] [place], [place] [address]Dr. Shayyroxie Bess Lymphocytes/100 WBC (Bld) 21.3 % Normal 20.5-60.0 [facility] Comment on above: Performed By: #### C BC ####[facility] Glrkajngug929[address] [place], [place] [address]Dr. Kalie Shahriar MANUAL DIFF REQ NO Normal [facility] Comment on above: Performed By: #### C BC ####[facility] Bmwatigarb3117 [place] [phone]. Kalie Bess MCH (RBC) [Entitic mass] 28.8 pg Normal 26.7-34.0 [facility] Comment on above: Performed By: #### C BC ####[facility] Welpagglqr1227 [place] [phone]. Kalie Bess MCHC (RBC) [Mass/Vol] 33.0 g/dL Normal 29.9-35.2 [facility] Comment on above: Performed By: #### C BC ####[facility] Xojpnyvknf0723 [place] [phone]. Kalie Bess MCV (RBC) [Entitic vol] 87.3 fL Normal 81.0-99.0 [facility] Comment on above: Performed By: #### C BC ####[facility] Oolzlnuasn1357 [place] [address]Dr. Kalie Shahriar MONO # 0.9 103/ul Critically high 0.3-0.8 [facility] Comment on above: Performed By: #### C BC ####[facility] Dtvtkzipuu0389 [place] [address]Dr. Shayyroxie Bess Monocytes/100 WBC (Bld) 6.9 % Normal 1.7-12.0 [facility] Comment on above: Performed By: #### C BC ####[facility] Wjuezwcept6048 [place] [phone]. Kalie Bess NEUT # 9.0 103/ul Critically high 1.4-6.5 [facility] Comment on above: Performed By: #### C BC ####[facility] Tgovjgwdom[address] [place], [place] [address]Dr. Shayyroxie Bess Neutrophils/100 WBC (Bld) 66.8 % Normal 43.0-75.0 [facility] Comment on above: Performed By: #### C BC ####[facility] Furqimbphg5[address] [place], [place] [address]Dr. Kalie Bess Platelet mean volume (Bld) [Entitic vol] 11.6 fL Normal 9.5-13.5 [facility] Comment on above: Performed By: #### C BC ####[facility] Fgedafqzub1230 [place] [phone]. Kalie Bess PLT 241 103/ul Normal 150-450 [facility] Comment on above: Performed By: #### C BC ####[facility] Kkcqcajyqj1772 [place] [phone]. Kalie Bess RBC 3.71 106/ul Critically low 4.20-5.40 [facility] Comment on above: Performed By: #### C BC ####[facility] Mzcvrskint4430 [place] [phone]. Kalie Bess WBC 13.4 103/ul Critically high 4.0-11.0 [facility] Comment on above: Performed By: #### C BC ####[facility] Apjzooxdpj0194 [place] [phone]. Kalie Bess POINT OF CARE GLUCOSEon Glucose [Mass/Vol] 106 mg/dL Normal 74-106 [facility] Comment on above: Performed By: #### P OCGLUC ####[facility] Hwuuegxyzs1071 [place] [phone]. Kalie Bess Glucose [Mass/Vol] 109 mg/dL Critically high 74-106 [facility] Comment on above: Performed By: #### P OCGLUC ####[facility] Mqpkdwqsqv2027 [place] [address]Dr. Kalie Bess Glucose [Mass/Vol] 159 mg/dL Critically high 74-106 [facility] Comment on above: Performed By: #### P OCGLUC ####[facility] Cztjwhzxxy1203 [place] [phone]. Kalie Bess Glucose [Mass/Vol] 340 mg/dL Critically high 74-106 [facility] Comment on above: Performed By: #### P OCGLUC ####[facility] Unnjtbzcmf6159 [place] [address]Dr. Kalie Bess PROF CHEM 8 (BAS METB)on Anion gap [Moles/Vol] 6.9 mmol/L Normal [facility] Comment on above: Performed By: #### B MP ####[facility] Gpdcrnnzoi7944 [place] [phone]. Kalie Bess Calcium [Mass/Vol] 8.0 mg/dL Critically low 8.5-10.1 Th e [facility] Comment on above: Performed By: #### B MP ####[facility] Nfgnjyxvow1509 [place] [phone]. Shayyroxie Shahriar Chloride [Moles/Vol] 96 mmol/L Critically low 98-107 [facility] Comment on above: Performed By: #### B MP ####[facility] Mtubtolwmh5130 [place] [phone]. Shayyroxie Shahriar CO2 [Moles/Vol] 33.7 mmol/L Critically high 21.0-32.0 [facility] Comment on above: Performed By: #### B MP ####[facility] Sirihltsqs827[address] [place], [place] [address]Dr. Kalie Bess Creatinine [Mass/Vol] 1.35 mg/dL Critically high 0.55-1.02 [facility] Comment on above: Performed By: #### B MP ####[facility] Hmalpnohxx9319 [place] [address]Dr. Shayyroxie Shahriar EGFR-AF CITIZEN OF [place] 50 mL/min/1.73m2 Critically low >=60 [facility] Comment on above: Performed By: #### B MP ####[facility] Etccaavewd3411[address] [place], [place] [address]Dr. Kalie Bess EGFR-NON AF CITIZEN OF [place] 41 mL/min/1.73m2 Critically low >=60 [facility] Comment on above: Performed By: #### B MP ####[facility] Nfpqdmixab2764 [place] [phone]. Kalie Bess Glucose [Mass/Vol] 339 mg/dL Critically high 74-106 [facility] Comment on above: Performed By: #### B MP ####[facility] Sjxuzxlrzm2238 [place] [address]Dr. Kalie Bess Potassium [Moles/Vol] 3.6 mmol/L Normal 3.5-5.1 [facility] Comment on above: Performed By: #### B MP ####[facility] Htcwamxltp4758 [place] [address]Dr. Kalie Bess Sodium [Moles/Vol] 133 mmol/L Critically low 136-145 Th [facility] Comment on above: Performed By: #### B MP ####[facility] Eimsjqgsir1062 [place] [address]Dr. Kalie Bess Urea nitrogen [Mass/Vol] 28.0 mg/dL Critically high 7.0-18.0 [facility] Comment on above: Performed By: #### B MP ####[facility] Bugsldtlck8799 [place] [address]Dr. Kalie Bess Urea nitrogen/Creatinine [Mass ratio] 20.7 mg/mg Normal [facility] Comment on above: Performed By: #### B MP ####[facility] Nahcpbtqhe8845 [place] [address]Dr. Kalie Bess XR CHEST 2 Von 08-02-2022 XR CHEST 2 V Normal [facility] AMYLASE, BODY FLUIDon 2021 Amylase [Catalytic activity/Vol] 18 U/L Normal [facility] Comment on above: Result Comment: ____ : BODY FLUID TYPE : AMYLASE : : : : : Lymph : 50 - 83 : : : : : Peritoneal : : : Fluid : 88 - 109 : : : : : Saliva : : : (Mixed Glands) : [id number] - [id number] : : : : . Shilo Husotn V. Reference Intervals for Adults and Children 2008. Ninth Edition (V9.1) [employer], [facility]; [place]: April 2009.The method performance specifications have not been established forthis test in body fluid. The test result should be integrated intothe clinical context for interpretation. Performed By: #### A MYBODY ####[facility] Kmsfpzhvtc[address] [place], [place] [address]Dr. Kalie Bess CBC AUTO DIFFon 08-01-2022 BASO # 0.0 103/ul Normal 0.0-0.1 [facility] Comment on above: Performed By: #### C BC ####[facility] Mhfpihpnug704[address] [place], [place] [address]Dr. Kalie Bess Basophils/100 WBC (Bld) 0.3 % Normal 0.2-2.0 [facility] Comment on above: Performed By: #### C BC ####[facility] Lwoonudlyc065[address] [place], [place] [address]Dr. Kalie Bess EO # 0.4 103/ul Normal 0.0-0.7 [facility] Comment on above: Performed By: #### C BC ####[facility] Okfppipgpz830[address] [place], [place] [address]Dr. Kalie Bess Eosinophils/100 WBC (Bld) 3.2 % Normal 0.9-7.0 [facility] Comment on above: Performed By: #### C BC ####[facility] Csvicytwns1475[address] [place], [place] [address]Dr. Kalie Bess Erythrocyte distribution width (RBC) [Ratio] 14.0 % Normal 11.0-15.0 [facility] Comment on above: Performed By: #### C BC ####[facility] Awvzafwimg653[address] [place], [place] [address]Dr. Kalie Bess Hematocrit (Bld) [Volume fraction] 34.0 % Critically low 36.0-48.0 [facility] Comment on above: Performed By: #### C BC ####[facility] Jnkcsaafgq0099 [place] [phone]. Kalie Bess Hemoglobin (Bld) [Mass/Vol] 10.9 g/dL Critically low 12.0-16.0 [facility] Comment on above: Performed By: #### C BC ####[facility] Zwuxuerujv1299 [place] [phone]. Kalie Bess IG # 0.11 10e3/ul Critically high 0.00-0.03 [facility] Comment on above: Performed By: #### C BC ####[facility] Gldsupnxoj6287 [place] [address]Dr. Kalie Bess IG % 0.8 % Critically high 0.0-0.5 [facility] Comment on above: Performed By: #### C BC ####[facility] Kcattsyvne9812 [place] [address]Dr. Kalie Shahriar LYMPH # 3.2 103/ul Normal 1.2-3.8 [facility] Comment on above: Performed By: #### C BC ####[facility] Pgybzzuwfi9178 [place] [address]Dr. Kalie Bess Lymphocytes/100 WBC (Bld) 24.6 % Normal 20.5-60.0 [facility] Comment on above: Performed By: #### C BC ####[facility] Jfhfsfqcno3353 [place] [address]Dr. Kalie Bess MANUAL DIFF REQ NO Normal [facility] Comment on above: Performed By: #### C BC ####[facility] Cbifnvsxia0558 [place] [phone]. Kalie Bess MCH (RBC) [Entitic mass] 28.3 pg Normal 26.7-34.0 [facility] Comment on above: Performed By: #### C BC ####[facility] Flxuetemgq9974 [place] [phone]. Kalie Bess MCHC (RBC) [Mass/Vol] 32.1 g/dL Normal 29.9-35.2 [facility] Comment on above: Performed By: #### C BC ####[facility] Encqakrsnc7006 [place] [phone]. Kalie Bess MCV (RBC) [Entitic vol] 88.3 fL Normal 81.0-99.0 [facility] Comment on above: Performed By: #### C BC ####[facility] Agzfqcnpqi2194 [place] [phone]. Kalie Bess MONO # 0.8 103/ul Normal 0.3-0.8 [facility] Comment on above: Performed By: #### C BC ####[facility] Nitvcpzmrd7703 [place] [phone]. Kalie Bess Monocytes/100 WBC (Bld) 5.8 % Normal 1.7-12.0 [facility] Comment on above: Performed By: #### C BC ####[facility] Eqpwekhlpg04[address] [place], [place] [address]Dr. Kalie Bess NEUT # 8.5 103/ul Critically high 1.4-6.5 [facility] Comment on above: Performed By: #### C BC ####[facility] Gelboygssp380[address] [place], [place] [address]Dr. Kalie Bess Neutrophils/100 WBC (Bld) 65.3 % Normal 43.0-75.0 [facility] Comment on above: Performed By: #### C BC ####[facility] Drutdzzhzp14[address] [place], [place] [address]Dr. Kalie Bess Platelet mean volume (Bld) [Entitic vol] 11.5 fL Normal 9.5-13.5 [facility] Comment on above: Performed By: #### C BC ####[facility] Llaxskmsdf5495 [place] [phone]. Kalie Bess PLT 256 103/ul Normal 150-450 [facility] Comment on above: Performed By: #### C BC ####[facility] Dwiotwmhhc6984 [place] [phone]. Kalie Shahriar RBC 3.85 106/ul Critically low 4.20-5.40 [facility] Comment on above: Performed By: #### C BC ####[facility] Xsvmmulxus3894 [place], [place] [address]Kq. Kalie Bess WBC 13.0 103/ul Critically high 4.0-11.0 [facility] Comment on above: Performed By: #### C BC ####[facility] Vvavfhtvtd1295 [place], [place] [address]Rp. Kalie Bess CELL COUNT BODY FLUIDon 10-0 Clarity, Serous Clear Normal Clear [facility] Comment on above: Performed By: #### C CBFS ####[facility] Rfnqhnnmvk6702 [place] [phone]. Kalie Bess Color, Serous Colorless Normal [facility] Comment on above: Result Comment: [place] rless to Pale Yellow/Straw Performed By: #### C CBFS ####[facility] Eclgggthgf24[address] [place] [phone]. Kalie Bess Comments: Normal [facility] Comment on above: Performed By: #### C CBFS ####[facility] Fqnbghsqnx4005 [place] [phone]. Kalie Bess Eosinophils/100 WBC (Bld) 0 % Normal Not Estab. [facility] Comment on above: Performed By: #### C CBFS ####[facility] Pzkxuhfarx3272 [place] [id number]. Kalie Bess Lining Cells, Serous Normal [facility] Comment on above: Performed By: #### C CBFS ####[facility] Mtvtgykctc8506 [place] [phone]. Kalie Bess Lymphocytes/100 WBC (Bld) 25 % Normal Not Estab. [facility] Comment on above: Performed By: #### C CBFS ####[facility] Pftjifcgus6987 [place] [phone]. Kalie Bess Macrophages, Serous 41 % Normal Not Estab. [facility] Comment on above: Performed By: #### C CBFS ####[facility] Dgmuzxrzhe2635 [place] [phone]. Kalie Bess Nucleated Cells, Serous 73 /mm3 Normal 0-499 [facility] Comment on above: Result Comment: Pleu ral Fluid, with <1000 Nucleated cells/uL has been associated with transudates while >1000 uL may be seen in exudates. Performed By: #### C CBFS ####[facility] Sqbteyojvp2907 [place] [phone]. Kalie Bess Polys, Serous 34 % Critically high 0-24 [facility] Comment on above: Performed By: #### C CBFS ####[facility] Fszkbhdcda5356 [place] [phone]. Kalie Bess RBC (Bld) [#/Vol] 0 10*6/uL Normal Not Estab. [facility] Comment on above: Performed By: #### C CBFS ####[facility] Lxaipvpqes9466 [place] [phone]. Kalie Bess GLUCOSE BODYFLUIDon 08-01-20 22 Glucose, Body Fluid 209 mg/dL Normal [facility] Comment on above: Result Comment: ____ : BODY FLUID TYPE : GLUCOSE : : : : : Amniotic Fluid : 45 - 76 : : : : : Bile, Clear : < 5 : : : : : Bile, Yellow : < 8 : : : : : Lymph : 48 - 200 : : : : : Nasal Secretion : < 10 : : : : : Pleural Fluid : 65 - 99 : : : : : Saliva : < 2 : : (Mixed Glands) : : : : : : Sweat : < 7 : : : : : Synovial Fluid : 65 - 99 : : : : : Tears : 76 - 288 : : : : . [place] W, Shilo V. Reference Intervals for Adults and Children 2007. Ninth edition (V9.1) [facility]; [place]: April 2009.The reference intervals and other method performance specificationshave not been established for this test. The test result should beintegrated into the clinical context for interpretation. Performed By: #### B FGLUC ####[address] Kalie Bess LACTIC ACID DEHYDROGENASE (L D), BODY FLUon 08-01-2022 LD, Body Fluid 127 IU/L Normal [facility] Comment on above: Result Comment: ____ : BODY FLUID TYPE : LDH : : : : : : Nonmalignant: < 60% : : : of the serum LDH : : Ascitic Fluid : Malignant: > 60% : : : of the serum LDH : : : : : Gastric Juice : < 35 : : : : : : Transudate: <200 : : Pleural Fluid : Exudate: >200 : : : : : Saliva : 113 - 609 : : (Mixed Glands) : : : : : : Synovial Fluid : <240 : : : : . [place] WShilo V. Reference Intervals for Adults and Children 2008. Ninth Edition (V9.1) [employer], [facility]; [place]: April 2009.The reference intervals and other method performance specificationshave not been established for this test. The test result should beintegrated into the clinical context for interpretation. Performed By: #### L BF ####[address]ie Bess POINT OF CARE GLUCOSE 10-0 Glucose [Mass/Vol] 322 mg/dL Critically high 74-106 [facility] Comment on above: Performed By: #### P OCGLUC ####[facility] Pfymdxfokk[address] [place], [place] [address]Dr. Kalie Bess Glucose [Mass/Vol] 299 mg/dL Critically high 74-106 [facility] Comment on above: Performed By: #### P OCGLUC ####[facility] Xqbwmdwbqt5[address] [place], [place] [address]Dr. Shayyroxie Bess Glucose [Mass/Vol] 306 mg/dL Critically high 74-106 [facility] Comment on above: Performed By: #### P OCGLUC ####[facility] Pyssobmsmj66[address] [place], [place] [address]Dr. Kalie Bess Glucose [Mass/Vol] 339 mg/dL Critically high 74-106 [facility] Comment on above: Performed By: #### P OCGLUC ####[facility] Hsfnmbsmmi855[address] [place], [place] [address]Dr. Kalie Bess PROF CHEM 8 (BAS METB)on Anion gap [Moles/Vol] 6.3 mmol/L Normal [facility] Comment on above: Performed By: #### B MP ####[facility] Zbxuztjych55[address] [place], [place] [address]Dr. Kalie Bess Calcium [Mass/Vol] 8.0 mg/dL Critically low 8.5-10.[address] [facility] Comment on above: Performed By: #### B MP ####[facility] Jogiwmsoqp8[address] [place], [place] [address]Dr. Kalie Bess Chloride [Moles/Vol] 97 mmol/L Critically low 98-107 [facility] Comment on above: Performed By: #### B MP ####[facility] Vweylgupnd538[address] [place], [place] [address]Dr. Kalie Bess CO2 [Moles/Vol] 35.6 mmol/L Critically high 21.0-32.0 [facility] Comment on above: Performed By: #### B MP ####[facility] Aljgwfqjoy449[address] [place], [place] [address]Dr. Kalie Bess Creatinine [Mass/Vol] 1.50 mg/dL Critically high 0.55-1.02 [facility] Comment on above: Performed By: #### B MP ####[facility] Ewjvrtjyfw15[address] [place] [address]Dr. Kalie Bess EGFR-AF CITIZEN OF [place] 44 mL/min/1.73m2 Critically low >=60 [facility] Comment on above: Performed By: #### B MP ####[facility] Tzcbjzqsfo159[address] [place], [place] [address]Dr. Kalie Bess EGFR-NON AF CITIZEN OF [place] 37 mL/min/1.73m2 Critically low >=60 [facility] Comment on above: Performed By: #### B MP ####[facility] Xhydzlykuw00[address] [place], [place] [address]Dr. Kalie Bess Glucose [Mass/Vol] 303 mg/dL Critically high 74-106 [facility] Comment on above: Performed By: #### B MP ####[facility] Rylebcjroq240[address] [place], [place] [address]Dr. Kalie Bess Potassium [Moles/Vol] 3.0 mmol/L Critically low 3.5-5.1 [facility] Comment on above: Performed By: #### B MP ####[facility] Rrjooyxuvu199[address] [place], [place] [address]Dr. Kalie Bess Sodium [Moles/Vol] 137 mmol/L Normal 136-145 [facility] Comment on above: Performed By: #### B MP ####[facility] Yssdsdbhlw412[address] [place], [place] [address]Dr. Kalie Bess Urea nitrogen [Mass/Vol] 27.0 mg/dL Critically high 7.0-18.0 [facility] Comment on above: Performed By: #### B MP ####[facility] Lybilsfalp520[address] [place], [place] [address]Dr. Kalie Bess Urea nitrogen/Creatinine [Mass ratio] 18.0 mg/mg Normal [facility] Comment on above: Performed By: #### B MP ####[facility] Lmrjvffjlp11[address] [place], [place] [address]Dr. Kalie Bess PROTEIN, TOTAL, BODY FLUIDon 08-01-2022 Protein, Body Fluid 1.4 g/dL Normal [facility] Comment on above: Result Comment: ____ : BODY FLUID TYPE : TOTAL PROTEIN : : : : : Amniotic Fluid : <0.4 : : : : : : Nonmalignant: <3.0 : : Ascitic Fluid : Malignant: >3.0 : : : : : Bile, Clear : <0.9 : : : : : Bile, Yellow : 0.2 - 0.6 : : : : : Lymph : 2.2 - 6.0 : : : : : Human Milk : 1.9 - 2.0 : : : : : Nasal Secretion : 0.1 - 3.5 : : : : : Pancreatic : 0.0 - 0.1 : : Juice : (post stimulation) : : : : : : Transudate: <0.3 : : Pleural Fluid : Exudate: >0.3 : : : : : Saliva : 0.1 - 0.2 : : (Mixed Glands) : : : : : : Synovial Fluid : <2.5 : : : : : Tears : 0.8 - 0.9 : : : : . [place] W, Shilo V. Reference Intervals for Adults and Children 2007. Ninth Edition (V9.1) [employer], [facility]; [place]: April 2009.The method performance specifications have not been established forthis test in body fluid. The test result should be integrated intothe clinical context for interpretation. Performed By: #### T PBF ####[facility] [address] [place] [address]. Kalie Bess XR CHEST 1 Von 08-01-2022 XR CHEST 1 V Normal [facility] BNPon 07-31-2022 Natriuretic peptide B (Bld) [Mass/Vol] 4467.0 pg/mL Critically high <=900.0 [facility] Comment on above: Performed By: #### B MATCHBOOK ASSEMBLER ####[facility] Bayvytowhn40[address] [place] [phone]. Kalie Bess CBC AUTO DIFFon 07-31-2022 BASO # 0.1 103/ul Normal 0.0-0.1 [facility] Comment on above: Performed By: #### C BC ####[facility] Nogvtsceub8828 [place] [phone]. Shayyroxie Bess Basophils/100 WBC (Bld) 0.5 % Normal 0.2-2.0 [facility] Comment on above: Performed By: #### C BC ####[facility] Drtkdrzmjj260[address] [place], [place] [address]Dr. Shayyroxie Bess EO # 0.4 103/ul Normal 0.0-0.7 [facility] Comment on above: Performed By: #### C BC ####[facility] Ioosxmhjbo3[address] [place], [place] [address]Dr. Shayyroxie Bess Eosinophils/100 WBC (Bld) 2.7 % Normal 0.9-7.0 [facility] Comment on above: Performed By: #### C BC ####[facility] Ccgfjtxuym349[address] [place], [place] [address]Dr. Kalie Bess Erythrocyte distribution width (RBC) [Ratio] 13.9 % Normal 11.0-15.0 [facility] Comment on above: Performed By: #### C BC ####[facility] Gxwdrpqziy8[address] [place], [place] [address]Dr. Kalie Bess Hematocrit (Bld) [Volume fraction] 31.6 % Critically low 36.0-48.0 [facility] Comment on above: Performed By: #### C BC ####[facility] Fllbldsqam[address] [place], [place] [address]Dr. Kalie Bess Hemoglobin (Bld) [Mass/Vol] 10.1 g/dL Critically low 12.0-16.0 [facility] Comment on above: Performed By: #### C BC ####[facility] Laehspffrl[address] [place], [place] [address]Dr. Kalie Bess IG # 0.15 10e3/ul Critically high 0.00-0.03 [facility] Comment on above: Performed By: #### C BC ####[facility] Bknplmoset8753 [place] [phone]. Kalie Bess IG % 1.1 % Critically high 0.0-0.5 [facility] Comment on above: Performed By: #### C BC ####[facility] Vkmqcysjxp6961 [place] [phone]. Kalie Bess LYMPH # 3.5 103/ul Normal 1.2-3.8 [facility] Comment on above: Performed By: #### C BC ####[facility] Nxnqxxyxgy7407 [place] [phone]. Kalie Bess Lymphocytes/100 WBC (Bld) 26.3 % Normal 20.5-60.0 [facility] Comment on above: Performed By: #### C BC ####[facility] Dxjddojvtb700[address] [place], [place] [address]Dr. Kalie Bess MANUAL DIFF REQ NO Normal [facility] Comment on above: Performed By: #### C BC ####[facility] Hpknrfglek8558 [place] [phone]. Kalie Bess MCH (RBC) [Entitic mass] 28.5 pg Normal 26.7-34.0 [facility] Comment on above: Performed By: #### C BC ####[facility] Xiehqvvphe9520 [place] [phone]. Kalie Bess MCHC (RBC) [Mass/Vol] 32.0 g/dL Normal 29.9-35.2 [facility] Comment on above: Performed By: #### C BC ####[facility] Wmbpqggfqr2061 [place] [phone]. Kalie Bess MCV (RBC) [Entitic vol] 89.3 fL Normal 81.0-99.0 [facility] Comment on above: Performed By: #### C BC ####[facility] Zuswpuqnxl3122 [place] [phone]. Kalie Bess MONO # 1.1 103/ul Critically high 0.3-0.8 [facility] Comment on above: Performed By: #### C BC ####[facility] Cfpjljeafs1352 [place] [phone]. Kalie Bess Monocytes/100 WBC (Bld) 8.4 % Normal 1.7-12.0 [facility] Comment on above: Performed By: #### C BC ####[facility] Tkhcozbdtk2079 [place] [phone]. Kalie Bess NEUT # 8.1 103/ul Critically high 1.4-6.5 [facility] Comment on above: Performed By: #### C BC ####[facility] Vvwmnnkeln4693 [place] [phone]. Kalie Bess Neutrophils/100 WBC (Bld) 61.0 % Normal 43.0-75.0 [facility] Comment on above: Performed By: #### C BC ####[facility] Mpkdqmnwre6219 [place] [phone]. Kalie Bess Platelet mean volume (Bld) [Entitic vol] 11.6 fL Normal 9.5-13.5 [facility] Comment on above: Performed By: #### C BC ####[facility] Orwzxlowhw3848 [place] [phone]. Kalie Bess PLT 248 103/ul Normal 150-450 [facility] Comment on above: Performed By: #### C BC ####[facility] Gpwyhhjitk3071 [place] [phone]. Kalie Bess RBC 3.54 106/ul Critically low 4.20-5.40 [facility] Comment on above: Performed By: #### C BC ####[facility] Xxpuzgksth4394 [place] [phone]. Kalie Bess WBC 13.3 103/ul Critically high 4.0-11.0 [facility] Comment on above: Performed By: #### C BC ####[facility] Xtscqkibqg0244 [place] [phone]. Kalie Bess CULTURE STERILE BODY FLUIDon 07-31-2022 CULTURE STERILE BODY FLUID Culture Observations: No growth at 72 hours. Normal [facility] Comment on above: Performed By: #### S TBFCX ####[facility] Jlfweypkey35[address] [place] [address]Dr. Kalie Bess CYTOLOGYon 07-31-2022 SENT TO REF LAB 07/31/22 Normal [facility] Comment on above: Performed By: #### C YTO ####[facility] Jvixkkuwgg0842 [place] [address]Dr. Kalie Bess ECHOCARDIO M/2D COMPLETEon 1 ECHOCARDIO M/2D COMPLETE Normal [facility] ER URINE PROFILEon Bilirubin Ql (U) Negative Normal NEGATIVE [facility] Comment on above: Performed By: #### U MICRO, ERUR ####[facility] Gvtjwvfmff[address] [place], [place] [address]Dr. Kalie Bess Clarity (U) CLEAR Normal CLEAR [facility] Comment on above: Performed By: #### U MICRO, ERUR ####[facility] Qobnrwziof13[address] [place], [place] [address]Dr. Kalie Bess Color (U) LT. YELLOW Normal YELLOW [facility] Comment on above: Performed By: #### U MICRO, ERUR ####[facility] Bbutyllcev2200[address] [place], [place] [address]Dr. Kalie Bess ERUAHD A micrscopic examination will be performed if indicated. Normal [facility] Comment on above: Performed By: #### U MICRO, ERUR ####[facility] Fauvlgejxz[address] [place], [place] [address]Dr. Kalie Bess Glucose Ql (U) 100 mg/dl Abnormal NEGATIVE [facility] Comment on above: Performed By: #### U MICRO, ERUR ####[facility] Jqltlqdhml[address] [place], [place] [address]Dr. Kalie Bess Hemoglobin Ql (U) SMALL Abnormal NEGATIVE [facility] Comment on above: Performed By: #### U MICRO, ERUR ####[facility] Tsjkuwiius019[address] [place], [place] [address]Dr. Kalie Bess Ketones Ql (U) Negative Normal NEGATIVE [facility] Comment on above: Performed By: #### U MICRO, ERUR ####[facility] Sutnfjvutr68[address] [place] [address]Dr. Kalie Bess LEUKOCYTES Negative Normal NEGATIVE [facility] Comment on above: Performed By: #### U MICRO, ERUR ####[facility] Oigidsehiq1046 [place] [address]Dr. Kalie Bess Nitrite Ql (U) Negative Normal NEGATIVE [facility] Comment on above: Performed By: #### U MICRO, ERUR ####[facility] Oknchdoghj3840 [place] [address]Dr. Kalie Bess pH (U) 5.5 [pH] Normal 5-9 [facility] Comment on above: Performed By: #### U MICRO, ERUR ####[facility] Dtiwakfjth5469 [place] [address]Dr. Kalie Bess Protein (U) [Mass/Vol] 100 mg/dL Abnormal NEGATIVE/ TRACE [facility] Comment on above: Performed By: #### U MICRO, ERUR ####[facility] Bsdzwqrgwe6786 [place] [address]Dr. Kalie Bess SPEC GRAVITY 1.015 Normal 1.005-<=1.025 [facility] Comment on above: Performed By: #### U MICRO, ERUR ####[facility] Urlkgeobmo894[address] [place], [place] [address]Dr. Kalie Bess UR MICRO IND INDICATED Normal [facility] Comment on above: Performed By: #### U MICRO, ERUR ####[facility] Sntssqjotk1108 [place] [address]Dr. Kalie Bess Urobilinogen Qn (U) 0.2 {Codi'U}/dL Normal 0.2 - 1. 0 [facility] Comment on above: Performed By: #### U MICRO, ERUR ####[facility] Kiqimprbhu[address] [place], [place] [address]Dr. Kalie Bess GRAM STAINon 07-31-2022 COMMENTS NO ORGANISMS OBSERVED Normal [facility] Comment on above: Performed By: #### G STAIN ####[facility] Soijhzgdqc86[address] [place] [address]Dr. Kalie Bess DIPHTHEROIDS Normal [facility] Comment on above: Performed By: #### G STAIN ####[facility] Giyykerwbc1559 [place] [address]Dr. Kalie Bess EPITHELIALS Normal [facility] Comment on above: Performed By: #### G STAIN ####[facility] Xtpvppcogw0148 [place] [address]Dr. Kalie Bess FUNGAL ELEMENTS Normal [facility] Comment on above: Performed By: #### G STAIN ####[facility] Khzxiniqum578[address] [place], [place] [address]Dr. Kalie Bess GRAM NEG BACILLI Normal [facility] Comment on above: Performed By: #### G STAIN ####[facility] Bmedrephnu054[address] [place], [place] [address]Dr. Kalie Bess GRAM NEG DIPPLOCOCCI Normal [facility] Comment on above: Performed By: #### G STAIN ####[facility] Vuqaoukgey8[address] [place], [place] [address]Dr. Kalie Bess GRAM POS BACILLI Normal [facility] Comment on above: Performed By: #### G STAIN ####[facility] Qqgwnysqew11[address] [place], [place] [address]Dr. Kalie Bess GRAM POSITIVE COCCI Normal [facility] Comment on above: Performed By: #### G STAIN ####[facility] Vbmuesadpm86[address] [place], [place] [address]Dr. Kalie Bess GRAM STAIN SOURCE Pleural Fluid Normal [facility] Comment on above: Performed By: #### G STAIN ####[facility] Rvvgbdpemt8437 [place] [address]Dr. Kalie Bess GS_DIPTH Normal [facility] Comment on above: Performed By: #### G STAIN ####[facility] Urywsqiptt607[address] [place], [place] [address]Dr. Kalie Bess WBC FEW Normal [facility] Comment on above: Performed By: #### G STAIN ####[facility] Qpdpmeimcn[address] [place], [place] [address]Dr. Kaile Bess POINT OF CARE GLUCOSEon 10-0 Glucose [Mass/Vol] 314 mg/dL Critically high 74-106 [facility] Comment on above: Performed By: #### P OCGLUC ####[facility] Oubyljbaym80[address] [place] [address]Dr. Kalie Bess Glucose [Mass/Vol] 190 mg/dL Critically high 74-106 [facility] Comment on above: Performed By: #### P OCGLUC ####[facility] Bwmmdfsfdk410[address] [place], [place] [address]Dr. Kalie Bess Glucose [Mass/Vol] 271 mg/dL Critically high 74-106 [facility] Comment on above: Performed By: #### P OCGLUC ####[facility] Jdgchsqemv139[address] [place], [place] [address]Dr. Kalie Bess PROF CHEM 8 (BAS METB)on Anion gap [Moles/Vol] 8.1 mmol/L Normal [facility] Comment on above: Performed By: #### B MP ####[facility] Qiwczhkdck24[address] [place], [place] [address]Dr. Kalie Bess Calcium [Mass/Vol] 8.2 mg/dL Critically low 8.5-10.[address] [facility] Comment on above: Performed By: #### B MP ####[facility] [address]lllirawal[address] [place], [place] [address]Dr. Kalie Bess Chloride [Moles/Vol] 102 mmol/L Normal 98-107 [facility] Comment on above: Performed By: #### B MP ####[facility] Dpvmkmrwlu6[address] [place], [place] [address]Dr. Kalie Bess CO2 [Moles/Vol] 32.2 mmol/L Critically high 21.0-32.0 [facility] Comment on above: Performed By: #### B MP ####[facility] Watvmituhs[address] [place], [place] [address]Dr. Kalie Bess Creatinine [Mass/Vol] 1.25 mg/dL Critically high 0.55-1.02 [facility] Comment on above: Performed By: #### B MP ####[facility] Kecejvfovq9765 [place] [phone]. Kalie Shahriar EGFR-AF [place]IZEN OF [place] 55 mL/min/1.73m2 Critically low >=60 [facility] Comment on above: Performed By: #### B MP ####[facility] Lfycmxwdbz4635 [place] [phone]. Shayyroxie Shahriar EGFR-NON AF CITIZEN OF [place] 45 mL/min/1.73m2 Critically low >=60 [facility] Comment on above: Performed By: #### B MP ####[facility] Jpvchutbgn9821 [place] [phone]. Kalie Bess Glucose [Mass/Vol] 208 mg/dL Critically high 74-106 [facility] Comment on above: Performed By: #### B MP ####[facility] Ojizzoumll76[address] [place] [address]Dr. Kalie Bess Potassium [Moles/Vol] 3.3 mmol/L Critically low 3.5-5.1 [facility] Comment on above: Performed By: #### B MP ####[facility] Ugwmsnrpge6347 [place] [address]Dr. Kalie Bess Sodium [Moles/Vol] 139 mmol/L Normal 136-145 [facility] Comment on above: Performed By: #### B MP ####[facility] Idyedkakdj5159 [place] [address]Dr. Kalie Bess Urea nitrogen [Mass/Vol] 23.0 mg/dL Critically high 7.0-18.0 [facility] Comment on above: Performed By: #### B MP ####[facility] Twrmkpcxee0569 [place] [address]Dr. Kalie Bess Urea nitrogen/Creatinine [Mass ratio] 18.4 mg/mg Normal [facility] Comment on above: Performed By: #### B MP ####[facility] Gxdgucmtph8624 [place] [address]Dr. Kalie Bess TROPONIN, HIGH SENSITIVITYon 07-31-2022 HSTROP 19.2 pg/mL Normal 4.0-51.3 [facility] Comment on above: Result Comment: CUT- OFF POINTS HAVE BEEN ESTABLISHED BASED ON THE FOURTH UNIVERSAL DEFINITIONS OF MYOCARDIALINFARCTION. THE UPPER REFERENCE LIMIT (URL) OF TROPONIN, DEFINED THE 99TH PERCENTILE OFcTnI DISTRIBUTION IN A REFERENCE POPULATION, HAS BEEN CONFIRMED THE DECISION THRESHOLDFOR RI DIAGNOSIS. Performed By: #### H STROPN ####[facility] Epyguxhiuv20[address] [place] [address]Dr. Kaile Bess URINE MICROSCOPIC ONLYon BACTERIA TRACE Abnormal NONE SEEN [facility] Comment on above: Performed By: #### U MICRO, ERUR ####[facility] [address]trspnkaas[address] [place], [place] [address]Dr. Kalie Bess Bacteria identified Cx Nom (U) NOT INDICATED Normal [facility] Comment on above: Performed By: #### U MICRO, ERUR ####[facility] [address]rtnegxqkg[address] [address] [place], [place] [address]Dr. Kalie Bess CAST NONE SEEN Normal NONE SEEN [facility] Comment on above: Performed By: #### U MICRO, ERUR ####[facility] Sejvethswi[address] [place], [place] [address]Dr. Kalie Bess Crystals LM Nom (Urine sed) NONE SEEN Normal NONE SEEN [facility] Comment on above: Performed By: #### U MICRO, ERUR ####[facility] C[address]fhi[address] [place], [place] [address]Dr. Kalie Bess Epithelial cells LM Ql (Urine sed) NONE SEEN Normal NONE SEEN /RARE [facility] Comment on above: Performed By: #### U MICRO, ERUR ####[facility] Kstviixttg270[address] [place], [place] [address]Dr. Shayylan Shahriar MUCOUS NONE SEEN Normal NONE SEEN [facility] Comment on above: Performed By: #### U MICRO, ERUR ####[facility] Cwkunpdspj35[address] [place], [place] [address]Dr. Kalie Bess RBC NONE SEEN Abnormal 0-2 [facility] Comment on above: Performed By: #### U MICRO, ERUR ####[facility] Febkkcodup36[address] [place], [place] [address]Dr. Kalie Bess WBC NONE SEEN Normal NONE SEEN [facility] Comment on above: Performed By: #### U MICRO, ERUR ####[facility] [address] [place] [address]Dr. Kalie Bess XR CHEST 1 Von 07-31-2022 XR CHEST 1 V Normal [facility] XR CHEST 1 V Normal [facility] ACETONE SERUMon 07-30-2022 ACETONE Negative Normal NEGATIVE [facility] Comment on above: Performed By: #### A CETON ####[facility] Pvbvb[address] [place], [place] [address]Dr. Kalie Bess BNPon 07-30-2022 Natriuretic peptide B (Bld) [Mass/Vol] 6846.0 pg/mL Critically high <=900.0 [facility] Comment on above: Performed By: #### L IPA, BNP, HSTROPN, CMP ####[facility] Vifpyfvxtk[address] [place], [place] [address]Dr. Kalie Bess CBC AUTO DIFFon 07-30-2022 BASO # 0.1 103/ul Normal 0.0-0.1 [facility] Comment on above: Performed By: #### C BC ####[facility] Qnayiqpivt198[address] [place], [place] [address]Dr. Kalie Bess Basophils/100 WBC (Bld) 0.6 % Normal 0.2-2.0 [facility] Comment on above: Performed By: #### C BC ####[facility] [address] [place] [address]Dr. Kalie Bess EO # 0.2 103/ul Normal 0.0-0.7 [facility] Comment on above: Performed By: #### C BC ####[facility] Aezqocuhdo[address] [place], [place] [address]Dr. Kalie Bess Eosinophils/100 WBC (Bld) 1.3 % Normal 0.9-7.0 [facility] Comment on above: Performed By: #### C BC ####[facility] Zlwpgydscv[address] [place], [place] [address]Dr. Kalie Bess Erythrocyte distribution width (RBC) [Ratio] 13.9 % Normal 11.0-15.0 [facility] Comment on above: Performed By: #### C BC ####[facility] [address] [place] [address]DraCssie Bess Hematocrit (Bld) [Volume fraction] 34.9 % Critically low 36.0-48.0 [facility] Comment on above: Performed By: #### C BC ####[facility] [address] [place] [address]DrCassie Bess Hemoglobin (Bld) [Mass/Vol] 11.2 g/dL Critically low 12.0-16.0 [facility] Comment on above: Performed By: #### C BC ####[facility] Pgqatnvxcy[address] [place], [place] [address]DrCassie Bess IG # 0.24 10e3/ul Critically high 0.00-0.03 [facility] Comment on above: Performed By: #### C BC ####[facility] Cvhjjdudja[address] [place], [place] [address]DrCassie Bess IG % 1.6 % Critically high 0.0-0.5 [facility] Comment on above: Performed By: #### C BC ####[facility] Txdlgubbby9[address] [place], [place] [address]DrCassie Bess LYMPH # 4.0 103/ul Critically high 1.2-3.8 [facility] Comment on above: Performed By: #### C BC ####[facility] Wskdesjhwm[address] [place], [place] [address]DrCassie Bess Lymphocytes/100 WBC (Bld) 25.8 % Normal 20.5-60.0 [facility] Comment on above: Performed By: #### C BC ####[facility] G[address]znpowduh6467[address] [place], [place] [address]DrCassie Bess MANUAL DIFF REQ NO Normal [facility] Comment on above: Performed By: #### C BC ####[facility] Vzgtyefqio859[address] [place], [place] [address]DrCassie Bess MCH (RBC) [Entitic mass] 28.6 pg Normal 26.7-34.0 [facility] Comment on above: Performed By: #### C BC ####[facility] [address] [place] [address]DrCassie Bess MCHC (RBC) [Mass/Vol] 32.1 g/dL Normal 29.9-35.2 [facility] Comment on above: Performed By: #### C BC ####[facility] Slqnneqjph1634[address] [place], [place] [address]DrCassie Bess MCV (RBC) [Entitic vol] 89.0 fL Normal 81.0-99.0 [facility] Comment on above: Performed By: #### C BC ####[facility] Gxtzhleovw8[address] [place], [place] [address]DrCassie Bess MONO # 1.2 103/ul Critically high 0.3-0.8 [facility] Comment on above: Performed By: #### C BC ####[facility] Myjdipvuyo2255[address] [place], [place] [address]DrCassie Bess Monocytes/100 WBC (Bld) 8.1 % Normal 1.7-12.0 [facility] Comment on above: Performed By: #### C BC ####[facility] Ffzwwayglc[address] [place], [place] [address]DrCassie Bess NEUT # 9.6 103/ul Critically high 1.4-6.5 [facility] Comment on above: Performed By: #### C BC ####[facility] Evicivbwnr[address] [place], [place] [address]DrCassie Bess Neutrophils/100 WBC (Bld) 62.6 % Normal 43.0-75.0 [facility] Comment on above: Performed By: #### C BC ####[facility] Siwftkgbaw[address] [place], [place] [address]DrCassie Bess Platelet mean volume (Bld) [Entitic vol] 11.2 fL Normal 9.5-13.5 [facility] Comment on above: Performed By: #### C BC ####[facility] [address]ixe[address]cdj[address] [place], [place] [address]DrCassie Bess PLT 308 103/ul Normal 150-450 [facility] Comment on above: Performed By: #### C BC ####[facility] [address] [place], [place] [address]Nz. Kalie Bess RBC 3.92 106/ul Critically low 4.20-5.40 [facility] Comment on above: Performed By: #### C BC ####[facility] [address] [place], [place] [address]Xx. Kalie Bess WBC 15.4 103/ul Critically high 4.0-11.0 [facility] Comment on above: Performed By: #### C BC ####[facility] [address] [place], [place] [address]Gr. Kalie Bess CT ABD/PELV W CONon 07-30-[address] ABD/PELV W CON Normal [facility] CTA CHEST WO W CONon 022 CTA CHEST WO W CON Normal [facility] Covid-19 PCR ([facility])on SARS-CoV-2 (COVID-19) RNA CIPRIANO+probe Ql (Unsp spec) Not detected Normal NOT DETECTED [facility] Comment on above: Result Comment: When diagnostic testing is negative, the possibility of a false negative should be considered inthe context of a patient's recent exposures and the presence of clinical signs and symptomsconsistent with SARS-CoV-2.This test is not yet approved or cleared by the [place] FDA. When there are no FDA-approved or cleared tests available, and other criteria are met, FDA can make tests available under an emergency access mechanism called an Emergency Use Authorization (EUA). The EUA for this test is supported by the [place] [facility] of [employer] and Human Service's declaration that circumstances exist to justify the emergency use of in vitro diagnostics for the detection and/or diagnosis of the virus that causes COVID-19. This EUA will remain in effect for the duration of the COVID-19 declaration justifying emergency of IVDs, unless it is terminated or revoked by the FDA (after which the test may no longer be used). Performed By: #### C VDTBH ####[facility] [address] [place] [address]Dr. Kalie Bess LACTATE/LACTIC ACIDon 2021 Lactate [Moles/Vol] 1.5 mmol/L Normal 0.4-1.9 [facility] Comment on above: Performed By: #### L ACT ####[facility] [address] [place] [address]Dr. Kalie Bess LIPASEon 07-30-2022 Lipase [Catalytic activity/Vol] 152.0 U/L Normal 73.0-393.0 [facility] Comment on above: Performed By: #### L IPA, BNP, HSTROPN, CMP ####[facility] [address] [place] [address]Dr. Kalie Bess PH VENOUS BLOODon 07-30-2022 PCO2 VENOUS 44.9 mmHg Normal 40.0-52.0 [facility] Comment on above: Performed By: #### P HVEN ####[facility] Fiekncxwvn[address] [place], [place] [address]Dr. Kalie Bess pH VENOUS 7.451 Critically high 7.330-7.430 [facility] Comment on above: Performed By: #### P HVEN ####[facility] Rjnpbklnte6[address] [place], [place] [address]Dr. Kalie Bess PROF 14(COMP METB)on 022 Albumin [Mass/Vol] 2.3 g/dL Critically low 3.4-5.0 [facility] Comment on above: Performed By: #### L IPA, BNP, HSTROPN, CMP ####[facility] Przubeuoar[address] [place], [place] [address]Dr. Kalie Bess Albumin/Globulin [Mass ratio] 0.5 {ratio} Normal [facility] Comment on above: Performed By: #### L IPA, BNP, HSTROPN, CMP ####[facility] Ql[address]conxpo[address] [place] [address]Dr. Kalie Bess ALP [Catalytic activity/Vol] 100 U/L Normal 46-116 [facility] Comment on above: Performed By: #### L IPA, BNP, HSTROPN, CMP ####[facility] Byjwtwenyd[address] [place] [address]Dr. Kalie Bess ALT [Catalytic activity/Vol] 18 U/L Normal 14-59 [facility] Comment on above: Performed By: #### L IPA, BNP, HSTROPN, CMP ####[facility] Nghwctoiqz3[address] [place] [address]Dr. Kalie Bess Anion gap [Moles/Vol] 6.6 mmol/L Normal [facility] Comment on above: Performed By: #### L IPA, BNP, HSTROPN, CMP ####[facility] Xvwonrnmwj75[address] [place], [place] [address]Dr. Kalie Bess AST [Catalytic activity/Vol] 10 U/L Critically low 15-37 [facility] Comment on above: Performed By: #### L IPA, BNP, HSTROPN, CMP ####[facility] Djsiotqolp[address] [place], [place] [address]Dr. Kalie Bess Bilirubin [Mass/Vol] 0.3 mg/dL Normal 0.2-1.0 [facility] Comment on above: Performed By: #### L IPA, BNP, HSTROPN, CMP ####[facility] N[address]ssmfqcse[address] [place], [place] [address]Dr. Kalie Bess Calcium [Mass/Vol] 8.7 mg/dL Normal 8.5-10.1 [facility] Comment on above: Performed By: #### L IPA, BNP, HSTROPN, CMP ####[facility] Nrimpztfwd215[address] [place], [place] [address]Dr. Kalie Bess Chloride [Moles/Vol] 99 mmol/L Normal 98-107 [facility] Comment on above: Performed By: #### L IPA, BNP, HSTROPN, CMP ####[facility] Lpwdecvufl06[address] [place], [place] [address]Dr. Kalie Bess CO2 [Moles/Vol] 31.1 mmol/L Normal 21.0-32.0 [facility] Comment on above: Performed By: #### L IPA, BNP, HSTROPN, CMP ####[facility] P[address]ffx[address] [place] [address]Dr. Kalie Bess Creatinine [Mass/Vol] 1.34 mg/dL Critically high 0.55-1.02 [facility] Comment on above: Performed By: #### L IPA, BNP, HSTROPN, CMP ####[facility] Nkkgtvuxre[address] [place] [address]Dr. Kalie Bess EGFR-AF CITIZEN OF [place] 51 mL/min/1.73m2 Critically low >=60 [facility] Comment on above: Performed By: #### L IPA, BNP, HSTROPN, CMP ####[facility] Fvvgjptsgj6[address] [place], [place] [address]Dr. Kalie Bess EGFR-NON AF CITIZEN OF [place] 42 mL/min/1.73m2 Critically low >=60 [facility] Comment on above: Performed By: #### L IPA, BNP, HSTROPN, CMP ####[facility] [address]pjfynvht[address] [place], [place] [address]Dr. Kalie Bess Globulin (S) [Mass/Vol] 4.4 g/dL Normal [facility] Comment on above: Performed By: #### L IPA, BNP, HSTROPN, CMP ####[facility] Roxqmlrzpo[address] [place], [place] [address]Dr. Kalie Bess Glucose [Mass/Vol] 226 mg/dL Critically high 74-106 T [facility] Comment on above: Performed By: #### L IPA, BNP, HSTROPN, CMP ####[facility] Bzgqwyvlbf08[address] [place], [place] [address]Dr. Kalie Bess Potassium [Moles/Vol] 3.7 mmol/L Normal 3.5-5.1 [facility] Comment on above: Performed By: #### L IPA, BNP, HSTROPN, CMP ####[facility] Wushocdkux[address] [place], [place] [address]Dr. Kalie Bess Protein [Mass/Vol] 6.7 g/dL Normal 6.4-8.2 [facility] Comment on above: Performed By: #### L IPA, BNP, HSTROPN, CMP ####[facility] [address] [place] [address]Dr. Kalie Bess Sodium [Moles/Vol] 133 mmol/L Critically low 136-145 Th e [facility] Comment on above: Performed By: #### L IPA, BNP, HSTROPN, CMP ####[facility] F[address]sfukso[address] [place] [address]Dr. Kalie Bess Urea nitrogen [Mass/Vol] 23.0 mg/dL Critically high 7.0-18.0 [facility] Comment on above: Performed By: #### L IPA, BNP, HSTROPN, CMP ####[facility] F[address]jviirb[address] [place] [address]Dr. Kalie Bess Urea nitrogen/Creatinine [Mass ratio] 17.2 mg/mg Normal [facility] Comment on above: Performed By: #### L IPA, BNP, HSTROPN, CMP ####[facility] Nixilktuaz[address] [place], [place] [address]Dr. Kalie Bess PROTIMEon 07-30-2022 INR Coag (PPP) [Relative time] 1.08 {INR} Normal [facility] Comment on above: Performed By: #### P TT, PT ####[facility] [address]lbppxnwsi[address] [place], [place] [address]Dr. Kalie Bess INR GUIDELINES SEE BELOW Normal [facility] Comment on above: Result Comment: GABRIELLA RED INR: 2.0 - 3.0 CONDITIONS NOT LISTED BELOW 2.5 - 3.5 FOR PROSTHETIC HEART VALVE REPLACEMENT 2.5 - 3.5 RECURRENT THROMBOSIS Performed By: #### P TT, PT ####[facility] Pmgohtjlrm[address] [place], [place] [address]Dr. Kalie Bess PT Coag (PPP) [Time] 11.6 s Normal 9.0-11.6 [facility] Comment on above: Performed By: #### P TT, PT ####[facility] [address]pcjxmso[address] [place], [place] [address]Dr. Kalie Bess PTTon 07-30-2022 aPTT Coag (Bld) [Time] 28.0 s Normal 22.3-36.2 [facility] Comment on above: Performed By: #### P TT, PT ####[facility] [address] [place], [place] [address]Po. Kalie Bess TROPONIN, HIGH SENSITIVITYon 07-30-2022 HSTROP 29.4 pg/mL Normal 4.0-51.3 [facility] Comment on above: Result Comment: CUT- OFF POINTS HAVE BEEN ESTABLISHED BASED ON THE [facility] [place] UNIVERSAL DEFINITIONS OF MYOCARDIALINFARCTION. THE UPPER REFERENCE LIMIT (URL) OF TROPONIN, DEFINED THE 99TH PERCENTILE OFcTnI DISTRIBUTION IN A REFERENCE POPULATION, HAS BEEN CONFIRMED THE DECISION THRESHOLDFOR RI DIAGNOSIS. Performed By: #### H STROPN ####[facility] [address] [place] [id number]. Kalie Bess HSTROP 28.3 pg/mL Normal 4.0-51.3 [facility] Comment on above: Result Comment: CUT- OFF POINTS HAVE BEEN ESTABLISHED BASED ON THE FOURTH UNIVERSAL DEFINITIONS OF MYOCARDIALINFARCTION. THE UPPER REFERENCE LIMIT (URL) OF TROPONIN, DEFINED THE 99TH PERCENTILE OFcTnI DISTRIBUTION IN A REFERENCE POPULATION, HAS BEEN CONFIRMED THE DECISION THRESHOLDFOR RI DIAGNOSIS. Performed By: #### L IPA, BNP, HSTROPN, CMP ####[facility] [address] [place] [id number]. Kalie Bess Outside Recordson 07-25-2022 Outside Records [id number]#1.00C D:127 Normal [facility] Physician Orderon 07-25-2022 Physician Order [id number]#1.00C D:127 Normal [facility] Encounters Encounter Date Encounter Type Care Provider Facility Start: 04-30-2023 End: 04-30-2023 ambulatory Imad Asaad Other [employer] Other Start: 04-30-2023 Telephone encounter Imad Asaad [employer] Start: 03-19-2023 End: 03-19-2023 ambulatory Imad Asaad Facility:[facility] Start: 03-18-2023 End: 03-18-2023 ambulatory Ayaan Deras Facility:[facility] Start: 03-11-2023 End: 03-11-2023 ambulatory Ayaan Deras Facility:[facility] Start: 02-12-2023 End: 02-13-[address] AYAAN DERAS Facility:[facility] Start: 01-29-2023 End: 2023 ambulatory HIEU TAMLYN . Facility:[facility] Start: 01-22-2023 End: 01-23-2023 ambulatory HIEU TAMLYN . Facility:[facility] Start: 01-15-2023 End: 01-16-2023 ambulatory HIEU TAMLYN . Facility:[facility] Start: 01-08-2023 End: 01-09-2023 ambulatory HIEU TAMLYN . Facility:[facility] Start: 01-01-2023 End: 01-02-2023 ambulatory HIEU TAMLYN . Facility:[facility] Start: 12-26-2022 End: 12-27-[address] AYAAN DERAS Facility:[facility] Start: 12-25-2022 End: 12-26-2022 ambulatory HIEU TAMLYN . Facility:[facility] Start: 12-18-2022 End: 12-19-2022 ambulatory HIEU TAMLYN . Facility:[facility] Start: 12-11-2022 End: 12-12-2022 ambulatory HIEU TAMLYN . Facility:[facility] Start: 12-01-2022 End: 12-02-2022 ambulatory HIEU TAMLYN . Facility:[facility] Start: 11-21-2022 End: 11-30-2022 Evaluation and management of inpatient HIEU TAMLYN . Facility:[facility] Start: 07-30-2022 End: 08-05-2022 Evaluation and management of inpatient DR AYAAN DERAS Facility:[facility] Start: 04-20-2022 End: 04-20-[address] AYAAN DERAS Facility:[facility] Procedures Date Procedure Procedure Detail Performing Clinician Start: 11-30-2022 Transfusion of Nonau tologous Red Blood Cells into Peripheral Vein, Percutaneous Approach HIEU TAMLYN . Start: 11-28-2022 Excision of Chest Subcutaneous Tissue and Fascia, Open Approach HIEU TAMLYN . Start: 11-24-2022 Insertion of Infusio n Device into Superior Vena Cava, Percutaneous Approach HIEU TAMLYN . Start: 07-31-[address] eural Cavity, Percutaneous Approach HIEU TAMLYN . Payers Date Payer Category Payer Self-pay 1970 Unknown [id number] 2.16.84 [id number] 1971 Unknown [id number] 2.16.84 [id number] 1971 Unknown [id number] 2.16.84 0.1.207873.3.579.2.593 1971 Unknown [id number] 2.16.84 0.1.560417.3.579.2.593 1971 Unknown [id number] 2.16.84 0.1.109944.3.579.2.593 1971 Unknown [id number] 2.16.84 0.1.260183.3.579.2.593 1971 Unknown [id number] 2.16.84 0.1.691925.3.579.2.593 1971 Unknown [id number] 2.16.84 0.1.869502.3.579.2.593 1971 Unknown [id number] 2.16.84 0.1.847855.3.579.2.593 1971 Unknown [id number] 2.16.84 0.1.222215.3.579.2.593 1971 Unknown [id number] 2.16.84 0.1.676132.3.579.2.593 1971 Unknown [id number] 2.16.84 0.1.741948.3.579.2.593 1971 Unknown [id number] 2.16.84 0.1.353615.3.579.2.593 1971 Unknown [id number] 2.16.84 0.1.007418.3.579.2.593 1959 Unknown [id number] Unknown [id number] 2.16.8 40.1.891927.3.579.2.531 Unknown [id number] 2.16.8 40.1.513713.3.579.2.531 Unknown [id number] 2.16.8 40.1.426520.3.579.2.531 Social History Date Type Detail Facility Sex Assigned At [employer] Other Evaluation note Note Date & Type Note Facility Evaluation note No Information [facility] [employer] Other History general Narrative - Reported Note Date & Type Note Facility History general Narrative - Reported Type Medical History Hypercholesteremia Medical History Type II diabetes mellitus Surgical History D&C Surgical History scar tissues Surgical History fracture repair ankl e left elbow left Surgical History oral surgery Surgical History hysterectomy Surgical History tissue removed from left breast due to infection Hospitalization History tissue infection in the left breast 11/2022 [employer] Other Summary Purpose Family History No Family History Records FoundNo Family History Records FoundNo Family History Records Found Advance Directives No Advanced Directives Records FoundNo Advanced Directives Records FoundNo Advanced Directives Records Found Additional Source Comments INFORMATION SOURCE (unrecogn ized section and content) DATE CREATED AUTHOR 07/29/2022 [facility] DATE CREATED AUTHOR AUTHOR'S ORGANIZ ATION 03/11/2023 [facility] DATE CREATED AUTHOR AUTHOR'S ORGANIZ ATION 08/01/2023 [facility] REASON FOR VISIT (unrecogniz ed section and content) REFERRAL UPDATE FOR RECORDS PERTAINING TO PATIENTS WHO ARE OR HAVE BEEN ENROLLED IN A CHEMICAL DEPENDENCY/SUBSTANCEABUSE PROGRAM, SOME INFORMATION MAY BE OMITTED. This clinical summary was aggregated from multiple sources. Caution should be exercised in using it in the provision of clinical care. This summary normalizes information from multiple sources, and as a consequence, information in this document may materially change the coding, format and clinical context of patient data. In addition, data may be omitted in some cases. CLINICAL DECISIONS SHOULD BE BASED ON THE PRIMARY CLINICAL RECORDS. [employer] provides no warranty or guarantee of the accuracy or completeness of information in this document.
--- NOTE | 2023-10-29 20:12 | ECG_ITS ---
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
--- NOTE | 2023-10-29 20:13 | XR_ITS ---
The [address] [address] Patient Name: DARYL CHAPARRO MRN: [id number] date: 1970 Sex: F Assigned Patient Location: ER Current Patient Location: ER Accession/Order Number: [id number] Exam Date: 10/29/2023 20:35 Report Date: 10/29/2023 21:15 At the request of: ANTONIO MARKER Procedure: XR chest 1V EXAM: XR chest 1V HISTORY: SOB COMPARISON: Chest x-ray 10/03/2023 TECHNIQUE: Single AP radiograph of the chest FINDINGS: Hazy opacities at the lung bases bilaterally may reflect infectious process or atelectasis. Left lung base effusion is not excluded. No pneumothorax. Normal heart size. No acute osseous abnormality. XR/XR chest 1V IMPRESSION: Hazy bibasilar opacities may reflect infectious process or atelectasis. Left lung base effusion is suspected. Electronically authenticated by: HERMAN JORGE Date: 10/29/2023 21:15
--- NOTE | 2023-10-29 20:14 | ED_ITS ---
HPI - SOB/Dyspnea General Chief Complaint: Shortness of Breath/Dyspnea Stated Complaint: sob Time Seen by Provider: 10/29/23 19:57 Source: patient Mode of arrival: walk-in Limitations: no limitations History of Present Illness HPI Narrative: This 53-year-old female who denies tobacco use but vapes, has Diabetes and a history of congestive heart failure as well as pneumonia one month ago and a history of C. difficile presents for evaluation of shortness of breath that has been increasing for the past one week. She has also had lower extremity swelling that has been increasing for the past week and started having diarrhea earlier today. She has not been having any vomiting or abdominal pain. She has not had a fever. She has exertional dyspnea and a dry cough. She denies any [place] chest pain. She has not had any dizziness or syncope. She has had multiple episodes of diarrhea throughout the day today. She denies any blood in her stool. She has been admitted in the past due to hypoxia and fluid overload and required IV Lasix and pleural tapping to remove a liter of fluid from her lungs. Related Data Home Medications Medication Instructions Recorded Confirmed No Known Home Medications 10/03/23 10/03/23 Allergies Allergy/AdvReac Type Severity Reaction Status Date / Time latex Allergy Unknown Verified 10/03/23 22:18 Review of Systems ROS Status of ROS 10 or more systems reviewed and unremark able except as noted in history and below [facility] Social History Smoking status: Current every day smoker Exam Narrative Exam Narrative: Nurses note and vital signs reviewed; The patient is afebrile, tachycardic with a pulse of 104, hypertensive a blood pressure 180/100 and hypoxic with pulse ox of 86 percent on room air General: Obese female, patient has exertional and conversational dyspnea Skin: Warm, dry, no pallor noted. There is no rash noted. Head: Normocephalic, atraumatic Eye: Normal conjunctiva, no drainage, EOMI. PERRL Ears, Nose, Mouth, and Throat: oral mucosa is moist Cardiovascular: Regular Rate and Rhythm S1S2, pulses are brisk and equal bilaterally Respiratory: conversational and exertional dyspnea with diffusely diminished breath sounds and rales at the right base, no wheezing or rhonchi or accessory muscle use Back: non-tender, no CVA tenderness bilaterally to percussion. GI: Normal bowel sounds, obese, soft, non-distended Musculoskeletal: 2+ LE pitting edema from the feet to mid-thighs Neurological: A&O x4, normal speech Psychiatric: Cooperative Constitutional Vital Signs, click to edit/add: Last Vital Signs Temp 98.3 F 10/29/23 19:43 Pulse 104 H 10/29/23 19:43 Resp 18 10/29/23 19:43 BP 220/108 H 10/29/23 23:09 Pulse Ox 98 10/29/23 23:46 O2 Del Method Nasal Cannula 10/29/23 23:46 O2 Flow Rate 2 10/29/23 23:46 Course Vital Signs Vital signs: Vital Signs Temperature 98.3 F 10/29/23 19:43 Pulse Rate 104 H 10/29/23 19:43 Respiratory Rate 18 10/29/23 19:43 Blood Pressure 180/100 H 10/29/23 19:43 Pulse Oximetry 86 L 10/29/23 19:43 Oxygen Delivery Method Room Air 10/29/23 19:43 Temperature 98.3 F 10/29/23 19:43 Pulse Rate 104 H 10/29/23 19:43 Respiratory Rate 18 10/29/23 19:43 Blood Pressure 220/108 H 10/29/23 23:09 Pulse Oximetry 98 10/29/23 23:46 Oxygen Delivery Method Nasal Cannula 10/29/23 23:46 Oxygen Delivery Flow Rate 2 10/29/23 23:46 MDM - SOB/Dyspnea MDM Narrative Medical decision making narrative: To 3-year-old female who is morbidly obese with a history of chronic renal insufficiency, diabetes and congestive heart failure presents for evaluation of one week of shortness of breath that has been worsening. She was found to be hypoxic at triage with a pulse ox of 85 percent. She is placed on supplemental oxygen with clinical improvement. She has bibasilar rales. She also has pitting edema. She is on Lasix. She denied any fever. Her cough is dry and nonproductive. EKG done upon arrival was a sinus tachycardia 100 beats for minute with normal axis and non specific ST changes. An IV was placed and she was given gentle hydration and 40 mg IV Lasix. Chest x-ray shows pleural effusion and pulmonary edema. Her BNP is markedly elevated greater than 20,000. Her potassium is 2.8. She tested positive for COVID 19. Her creatinine today is 2.8 which is highly increased compared to her baseline. Lactic acid is normal. Troponin is normal. She has a normal white count and hemoglobin. She was medicated with IV and PO potassium. ABG was ordered. She has a normal arterial pH. The low PO2 at 70.5. Blood gas was noted to be 95 percent on the blood gas. Patient has also been having diarrhea today which is copious, watery and yellow. C diff was ordered but will not be performed until tomorrow. The case was discussed with the hospitalist who requests addition of IV Rocephin and zithromax. Her blood pressure was notably elevated and she was medicated with IV hydralazine prior to going to the med/surg floor. Lab Data Labs: Lab Results 10/29/23 10/29/23 10/29/23 Range/Units 20:35 20:38 20:56 WBC 10.4 (4.0-11.0) 10^3/uL RBC 4.07 L (4.20-5.40) 10^6/uL Hgb 11.1 L (12.0-16.0) g/dL Hct 36.1 (36.0-48.0) % MCV 88.7 (81.0-99.0) fL MCH 27.3 (26.7-34.0) pg MCHC 30.7 (29.9-35.2) g/dL RDW 14.4 (11.0-15.0) % Plt Count 239 (150-450) 10^3/uL MPV 12.7 (9.5-13.5) fL Neut % (Auto) 73.6 (43.0-75.0) % Lymph % (Auto) 16.2 L (20.5-60.0) % [place] % (Auto) 6.9 (1.7-12.0) % Eos % (Auto) 2.3 (0.9-7.0) % Baso % (Auto) 0.7 (0.2-2.0) % Neut # (Auto) 7.7 H (1.4-6.5) 10^3/uL Lymph # (Auto) 1.7 (1.2-3.8) 10^3/uL [place] # (Auto) 0.7 (0.3-0.8) 10^3/uL Eos # (Auto) 0.2 (0.0-0.7) 10^3/uL Baso # (Auto) 0.1 (0.0-0.1) 10^3/uL Abs Immat Gran (auto) 0.03 (0.00-0.03) 10^3/uL Imm/Tot Granulo (auto) 0.3 (0.0-0.5) % Puncture Site R radial ABG pH 7.392 (7.350-7.450) ABG pCO2 41.5 (35.0-45.0) mmHg ABG pO2 70.5 L (80.0-100.0) mmHg ABG HCO3 25.2 (22.0-26.0) mmol/L ABG O2 Saturation 95.8 % ABG Base Excess 0.2 (-2.0-2.0) mmol/L Michael Test Positive (POSITIVE) O2 Liters/Min 3 Sodium 132 L (136-145) mmol/L Potassium 2.8 L* (3.5-5.1) mmol/L Chloride 100 (98-107) mmol/L Carbon Dioxide 27.3 (21.0-32.0) mmol/L Anion Gap 7.5 BUN 25.0 H (7.0-18.0) mg/dL Creatinine 2.80 H (0.55-1.02) mg/dL Est GFR ( Amer) 22 L (>=60) Est GFR (Non-Af Amer) 18 L (>=60) BUN/Creatinine Ratio 8.9 Glucose 207 H (74-106) mg/dL Lactate 0.8 (0.4-2.0) mmol/L Calcium 8.4 L (8.5-10.1) mg/dL Total Bilirubin 0.3 (0.2-1.0) mg/dL AST 17 (15-37) U/L ALT 17 (14-59) U/L Alkaline Phosphatase 92 (46-116) U/L Troponin I High Sens 24.3 (4.0-51.3) pg/mL NT-Pro-B Natriuret Pep 88848.0 H* (<=900.0) pg/mL Total Protein 5.9 L (6.4-8.2) g/dL Albumin 1.3 L (3.4-5.0) g/dL Globulin 4.6 g/dL Albumin/Globulin Ratio 0.3 Adenovirus (PCR) Not detected (NOT DETECTE) C. pneumoniae DNA (PCR) Not detected (NOT DETECTE) Coronavirus Type OC43 Not detected (NOT DETECTE) Coronavirus Type HKU1 Not detected (NOT DETECTE) Coronavirus Type 229E Not detected (NOT DETECTE) Coronavirus Type NL63 Not detected (NOT DETECTE) Human Metapneumovir PCR Not detected (NOT DETECTE) M. pneumoniae (PCR) Not detected (NOT DETECTE) Parainfluenza PCR Not detected (NOT DETECTE) Parainfluenza 2 (PCR) Not detected (NOT DETECTE) Parainfluenza 3 (PCR) Not detected (NOT DETECTE) Parainfluenza 4 (PCR) Not detected (NOT DETECTE) RSV (RT-PCR) Not detected (NOT DETECTE) Entero/Rhino (PCR) Not detected (NOT DETECTE) SARS-CoV-2 (PCR) Detected A (NOT DETECTE) Bordetella pertussis (PCR) Not detected (NOT DETECTE) B parapertussis DNA PCR Not detected (NOT DETECTE) Influenza Type A (PCR) Not detected (NOT DETECTE) Influenza Type B (PCR) Not detected (NOT DETECTE) ECG Data Attestation: I personally reviewed and interpreted this ECG as follows: (Sinus tachycardia 100 beats for minute, normal axis, flipped T waves in leads one to aVL aVF V4 V5 V6, no acute ST segment elevation) Critical Care Time Critical Care Time Critical Care Time: Yes Total Critical Care Time: 40 Attestation: . Discharge Plan Discharge Chief Complaint: Shortness of Breath/Dyspnea Clinical Impression: COVID-19, CHF (congestive heart failure), Hyponatremia, Diarrhea, Acute kidney injury superimposed on chronic kidney disease, Elevated systolic blood pressure reading without diagnosis of hypertension Patient Disposition: Admitted as Observation Time of Disposition Decision: 01:04 Condition: Fair Prescriptions / Home Meds: No Action No Known Home Medications Referrals: Physician,Non-Staff, MD [Primary Care Provider] - 1 week
[2023-10-29 20:51] LABS: Adenovirus NOT DETECTED (NOT DETECTE); Bordetella parapertussis NOT DETECTED (NOT DETECTE); Coronavirus 229E NOT DETECTED (NOT DETECTE); Coronavirus HKU1 NOT DETECTED (NOT DETECTE); Coronavirus NL63 NOT DETECTED (NOT DETECTE); Coronavirus OC43 NOT DETECTED (NOT DETECTE); Human Metapneumovirus NOT DETECTED (NOT DETECTE); Human Rhinovirus/Enterovirus NOT DETECTED (NOT DETECTE); Influenza A NOT DETECTED (NOT DETECTE); Influenza B NOT DETECTED (NOT DETECTE); Mycoplasma pneumoniae NOT DETECTED (NOT DETECTE); Parainfluenza Virus 1 NOT DETECTED (NOT DETECTE); Parainfluenza Virus 2 NOT DETECTED (NOT DETECTE); Parainfluenza Virus 3 NOT DETECTED (NOT DETECTE); Parainfluenza Virus 4 NOT DETECTED (NOT DETECTE); Respiratory Syncytial Virus NOT DETECTED (NOT DETECTE)
[2023-10-29 20:59] LABS: Basophils Absolute Auto 0.1 10^3/uL (0.0-0.1); Basophils Percent Auto 0.7 % (0.2-2.0); Eosinophils Absolute Auto 0.2 10^3/uL (0.0-0.7); Eosinophils Percent Auto 2.3 % (0.9-7.0); Hematocrit 36.1 % (36.0-48.0); Hemoglobin 11.1 g/dL (12.0-16.0); Immature Granulocytes Abs Auto 0.03 10^3/uL (0.00-0.03); Immature Granulocytes Pct Auto 0.3 % (0.0-0.5); Lymphocytes Absolute Auto 1.7 10^3/uL (1.2-3.8); Lymphocytes Percent Auto 16.2 % (20.5-60.0); Mean Corpuscular HGB Conc 30.7 g/dL (29.9-35.2); Mean Corpuscular Hemoglobin 27.3 pg (26.7-34.0); Mean Corpuscular Volume 88.7 fL (81.0-99.0); Mean Platelet Volume 12.7 fL (9.5-13.5); Monocytes Absolute Auto 0.7 10^3/uL (0.3-0.8); Monocytes Percent Auto 6.9 % (1.7-12.0); Neutrophils Absolute Auto 7.7 10^3/uL (1.4-6.5); Neutrophils Percent Auto 73.6 % (43.0-75.0); Platelet Count 239 10^3/uL (150-450); Red Blood Count 4.07 10^6/uL (4.20-5.40); Red Cell Distribution Width 14.4 % (11.0-15.0); White Blood Count 10.4 10^3/uL (4.0-11.0)
[2023-10-29 21:07] LABS: ABG PCO2 41.5 mmHg (35.0-45.0); Allen Test POSITIVE (POSITIVE); Base Excess ABG 0.2 mmol/L (-2.0-2.0); HCO3 ABG 25.2 mmol/L (22.0-26.0); Liters per Minute 3; O2 Mode NASAL CANNULA; Oxygen Saturation ABG 95.8 %; PO2 ABG 70.5 mmHg (80.0-100.0); Puncture Site R RADIAL; pH ABG 7.392 (7.350-7.450)
[2023-10-29 21:19] LABS: Lactate/Lactic Acid 0.8 mmol/L (0.4-2.0)
[2023-10-29 21:21] LABS: Alanine Aminotransferase 17 U/L (14-59); Albumin Globulin Ratio 0.3; Albumin Level 1.3 g/dL (3.4-5.0); Alkaline Phosphatase 92 U/L (46-116); Anion Gap 7.5; Aspartate Amino Transferase 17 U/L (15-37); BUN Creatinine Ratio 8.9; Bilirubin Total 0.3 mg/dL (0.2-1.0); Calcium 8.4 mg/dL (8.5-10.1); Carbon Dioxide 27.3 mmol/L (21.0-32.0); Chloride 100 mmol/L (98-107); Estimated GFR (African America 22 (>=60); Estimated GFR (Non-African Ame 18 (>=60); Globulin 4.6 g/dL; Glucose 207 mg/dL (74-106); Sodium 132 mmol/L (136-145); Total Protein 5.9 g/dL (6.4-8.2); Troponin I High Sensitivity 24.3 pg/mL (4.0-51.3)
[2023-10-29 21:28] LABS: Potassium 2.8 mmol/L (3.5-5.1)
[2023-10-29 21:52] LABS: SARS-CoV-2 DETECTED (NOT DETECTE)
[2023-10-29 23:09] VITALS: BP 220/108
[2023-10-29] MEDS: POTASSIUM CHLORIDE 10 MEQ ER TABLET 20 MEQ PO (23:09)
[2023-10-29] MEDS: FUROSEMIDE 40 MG/4 ML VIAL IVP (23:09)
[2023-10-29] MEDS: POTASSIUM CHLORIDE IN WATER 10 MEQ/100 ML PIGGYBACK 100 MEQ IV (23:17)
[2023-10-29 23:46] VITALS: O2SAT 98
[2023-10-30] VITALS (25 sets, daily range): BP systolic 122–220; BP diastolic 71–102; PULSE 80–100; RESP 16–20; TEMP 36.4–36.5; O2SAT 74–100; BMI 50.3
[2023-10-30] MEDS: CEFTRIAXONE 1,000 MG in 0.9 % SODIUM CHLORIDE 50 ML 100 MG IV (00:27)
--- NOTE | 2023-10-30 00:30 | ECG_ITS ---
[facility] Test Date: 2023-10-30 Pat Name: DARYL CHAPARRO Department: Room: 2191 Gender: Female [employer]: : [id number] Requested By: Order Number: [id number] Reading MD: MODESTO JOSÉ Measurements Intervals [place] Rate: 100 P: 44 AK: 172 QRS: 4 QRSD: 93 T: 156 QT: 366 QTc: 474 Interpretive Statements SINUS TACHYCARDIA LOW QRS VOLTAGE IN PRECORDIAL LEADS [QRS DEFLECTION < 1.0 mV IN CHEST LEADS] ST DEVIATION AND MODERATE T-WAVE ABNORMALITY, CONSIDER INFEROLATERAL ISCHEMIA [-0.1+ mV T WAVE IN I/aVL/V5/V6] Electronically Signed On 10-30-2023 7:08:53 EST by MODESTO JOSÉ
[2023-10-30] MEDS: HYDRALAZINE HCL 20 MG/ML VIAL 10 MG IVP (01:30)
[2023-10-30 01:37] LABS: Phosphorus 4.2 mg/dL (2.6-4.7); Troponin I High Sensitivity 24.6 pg/mL (4.0-51.3)
[2023-10-30] MEDS: AZITHROMYCIN 500 MG in 0.9 % SODIUM CHLORIDE 250 ML 250 MG IV (01:58)
--- OUTSIDE RECORDS SUMMARY | 2023-10-30 02:21 | XMS_ITS | CCD ---
Author Name Unknown Address [address] [facility] [address] [place] [address] Organization 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 Name Role Phone TAMLYN ., HIEU Attending [...] SAMSA ., DORA Consulting Unavailable JUNIOR Matthews, HAILEY Consulting Unavailable DIXIE KHAN Consulting Unavailable LILIANA [...] (1 source) Latex Drug allergy (disorder) [facility] Repository (1 source) Latex rubber gloves Drug allergy Unknown [employer] Other (1 source) Latex Drug allergy (disorder) 03-19-2023 [facility] Repository Medications Current Medications Medication Drug Class(es) [...] Once a day Active polyethylene glycol 3350 [id number] mg / potassium chloride 2970 mg / sodium bicarbonate 6740 mg / sodium chloride 5860 mg / sodium sulfate 44333 mg powder for oral solution (1 source) [...] Onset: 12-03-2022 Episodic Other aftercare (1 source) [facility] (current) use of oral hypoglycemic drugs; Translations: [SNF USE ORAL HYPOGLYCEMIC DX] Onset: 12-03-2022 Episodic Other aftercare (1 source) Other longterm (current) drug therapy; Translations: [OTH 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 Performed By: #### C ELIAC #### [facility] , #### TSH3, ESR, CRP #### [place] [id number] [place] Glucose [Mass/Vol] 93 mg/dL Normal [facility] Comment on above: Result Comment: [facility] Glucose Reference Range is dependent on time and content of last meal. Glucose of more than 200 mg/dL in a nonstressed, ambulatory subject supports the diagnosis of Diabetes Mellitus. Performed By: #### C ELIAC #### [facility] , #### TSH3, ESR, CRP #### [facility] [address] [place] 03-19-2023 L --- Specimen: [id number] Received: 03/19/23 Status: CORRY Flannery Num: [id number] Spec Type: Surgical Subm Dr: Carolyn Ramsey MD Tissues: A Colon Biopsy (RANDOM COLON BX) Procedures: HE/Gem, Nito/Himanshu L4 Age/ Patient Sex Location Account Attending Physician Daryl Roque 53/F [id number] Carolyn Ramsey MD SPEC NUM: [id number] RECD: 03/19/23 STATUS: CORRY FLANNERY NUM: [id number] MARIANNA: 03/19/23 DR: Carolyn Ramsey MD ENTERED: 03/19/[address] [facility] DR: MELLISSA TYPE: Surgical DEPT: S [...] microscopic examination confirms the diagnosis. CPT Codes 08572 Specimen: [id number] Received: 03/19/23 Status: CORRY Flannery Num: [id number] Spec Type: Surgical Subm Dr: Carolyn Ramsey MD Tissues: A Colon Biopsy (RANDOM COLON BX) Procedures: HE/2, Gross/Micro L4 Patient: Daryl Roque [id number] (Continued) Signed (signature on file) Kelsea Sullivan MD 03/20/23 1035 Normal [facility] Calprotectin, Fecalon 2022 Calprotectin, Fecal 6 Normal 0-120 [facility] Comment on above: Order Comment: Reaso n for Exam Diarrhea Result Comment: Conc entration Interpretation Follow-Up < 5 - 50 ug/g Normal None >50 -120 ug/g Borderline Re-evaluate in 4-6 weeks >120 ug/g Abnormal Repeat as clinically indicated Performed at: - [facility] [address] [id number] Windows Server Architect: Mary Sung MD, Phone: [phone] PERFORMED BY: [facility] [address] [place] [address] PATHOLOGIST MANUFACTURING EXECUTIVE PAT NORWOOD M.D. Performed By: #### C ALPROTECT, OPEXAM, ELASTASE STOOL #### [facility] , #### CDT, CUSTOOL #### [facility] [address] [place] [address] Clostridium Difficileon 02-24 Clostridium Difficile Positive Normal Negative [facility] Comment on above: Order Comment: Reaso n for Exam Diarrhea Result Comment: Test ing performed by RT-PCR PERFORMED BY: [place] [address] PATHOLOGIST MANUFACTURING EXECUTIVE PAT NORWOOD M.D. Performed By: #### C ALPROTECT, OPEXAM, ELASTASE STOOL #### [facility] , #### CDT, CUSTOOL #### [facility] [address] [place] [address] OVA AND PARASITEon OVA AND PARASITE Reason [...] of a parasitic infection. Performed at: - [facility] [id number] Windows Server Architect: Louis Hansen PhD, Phone: [phone] PERFORMED BY: [place] [address] PATHOLOGIST MANUFACTURING EXECUTIVE PAT NORWOOD M.D. Normal [facility] Comment on above: Performed By: #### C ALPROTECT, OPEXAM, ELASTASE STOOL #### [facility] , #### CDT, CUSTOOL #### [facility] [address] [place] [address] [place] Pancreatic Elastase, Stoolon 03-18-2023 Pancreatic Elastase, Stool >500 Normal >200 [facility] Comment on above: Order Comment: Reaso n for Exam Diarrhea Result Comment: Resu lt Units: ug Elast./g Severe Pancreatic Insufficiency: <100 Moderate Pancreatic Insufficiency: 100 - 200 Normal: >200 Performed at: - [facility] [id number] Windows Server Architect: Mary Sung MD, Phone: [phone] Performed By: #### C ALPROTECT, OPEXAM, ELASTASE STOOL #### [facility] , #### CDT, CUSTOOL #### [facility] [address] [place] [address] Stool Cultureon 03-18-2023 Stool culture Reason for Exam Diarrhea Stool Reason for Exam: Diarrhea : Stool Negative for Shiga Toxin 1 Negative for Shiga Toxin 2 -------- A negative Shiga Toxin result may occur if the antigen level in the specimen is below the detection limit of the assay. Stool culture results No Salmonella, Shigella, Campy or E. coli 0157:H7 Isolated PERFORMED BY: [place] [address] PATHOLOGIST MANUFACTURING EXECUTIVE PAT NORWOOD M.D. [facility] Comment on above: Performed By: #### C ALPROTECT, OPEXAM, ELASTASE STOOL #### [facility] , #### CDT, CUSTOOL #### [facility] [address] [place] [address] C-Reactive Proteinon 023 C-Reactive Protein 1.0 mg/dL High 0.0-0.5 [facility] Comment on above: Order Comment: Reaso n for Exam Diarrhea Performed By: #### C ELIAC #### [facility] , #### TSH3, ESR, CRP #### [facility] [address] [place] [address] Celiacon 03-11-2023 Deamidated Gliadin Abs, IgA 9 Normal 0-19 [facility] Comment on above: Order Comment: Reaso n for Exam Diarrhea Result Comment: Nega tive 0 - 19 Weak Positive 20 - 30 Moderate to Strong Positive >30 Performed By: #### C ELIAC #### [facility] , #### TSH3, ESR, CRP #### [facility] [address] [place] [address] [place] Deamidated Gliadin Abs, IgG 3 Normal 0-19 [facility] Comment on above: Order Comment: Reaso n for Exam Diarrhea Result Comment: Nega tive 0 - 19 Weak Positive 20 - 30 Moderate to Strong Positive >30 Performed By: #### C ELIAC #### [facility] , #### TSH3, ESR, CRP #### [facility] [address] [place] [address] [place] Endomysial Antibody IgA Negative Normal Negative [facility] Comment on above: Order Comment: Reaso n for Exam Diarrhea Performed By: #### C ELIAC #### [facility] , #### TSH3, ESR, CRP #### [facility] [address] [place] [address] [place] Immunoglobulin A, Qn, Serum 267 mg/dL Normal 87-352 [facility] Comment on above: Order Comment: Reaso n for Exam Diarrhea Result Comment: Perf ormed at: - [facility] [address] [id number] Windows Server Architect: Louis Hansen PhD, Phone: [phone] PERFORMED BY: [place] [address] PATHOLOGIST MANUFACTURING EXECUTIVE PAT NORWOOD M.D. Performed By: #### C ELIAC #### [facility] , #### TSH3, ESR, CRP #### [facility] [address] [place] [address] [place] T-Transglutaminase (tTG) IgA <2 Normal 0-3 [facility] Comment on above: Order Comment: Reaso [...] [facility] , #### TSH3, ESR, CRP #### [facility] [address] T-Transglutaminase (tTG) IgG <2 Normal 0-5 [facility] Comment on above: Order Comment: Reaso n for Exam Diarrhea Result Comment: Nega tive 0 - 5 Weak Positive 6 - 9 Positive >9 Performed By: #### C ELIAC #### [facility] , #### TSH3, ESR, CRP #### [address] Erythrocyte Sedimentation Ra jose 03-11-2023 ESR (Bld) [Velocity] 98 mm/h High 0-29 [facility] Comment on above: Order Comment: Reaso n for Exam Diarrhea Result Comment: PERF ORMED BY: [place] [address] PATHOLOGIST MANUFACTURING EXECUTIVE PAT NORWOOD M.D. Performed By: #### C ELIAC #### [facility] , #### TSH3, ESR, CRP #### [address] Thyroid Stimulating Hormoneo n 03-11-2023 TSH Qn 0.34 m[IU]/L Low 0.45-5.33 [facility] Comment on above: Order Comment: Reaso n for Exam Diarrhea Result Comment: PERF ORMED BY: [place] [address] PATHOLOGIST MANUFACTURING EXECUTIVE PAT NORWOOD M.D. Performed By: #### C ELIAC #### [facility] , #### TSH3, ESR, CRP #### [facility] [address] [place] [address] ACID FAST SMEAR AND CXon Acid Fast Culture Negative Normal [facility] Comment on above: Result Comment: No a junior fast bacilli isolated after 6 weeks. Performed By: #### A FB ####[facility] [address] [place] [id number]. Kalie Bess Acid Fast Smear Negative Normal [facility] Comment on above: Performed By: #### A FB ####[facility] [address] [place], [place] [id number]. Kalie Bess [employer] Specimen Processing Direct Inoculation Normal [facility] Comment on above: Performed By: #### A FB ####[facility] E[address] [place], [place] [id number]. Kalie Bess PRBC LEUKOREDUCEDon 12-31-19 23 PRBC LEUKOREDUCED Normal [facility] Comment on above: Performed By: #### P RBC ####[facility] [address] [place], [place] [address]Dr. Kalie Bess FUNGAL CULTUREon 12-29-2022 Fungus (Mycology) Culture Final report Normal [facility] Comment on above: Performed By: #### C XFUN ####[facility] T[address] [place], [place] [address]Dr. Kalie Bess Fungus Stain Final report Normal [facility] Comment on above: Performed By: #### C XFUN ####[facility] B[address] [place], [place] [address]Dr. Kalie Bess Result 1 Comment Normal [facility] Comment on above: Result Comment: GILMA/ Calcofluor preparation: no fungus observed. Performed By: #### C XFUN ####[facility] Th[address] [place], [place] [address]Dr. Kalie Bess Result Comment: No y east or mold isolated after 4 weeks. C. DIFF PCRon 12-26-2022 C. DIFFICILE PCR Negative Normal NEGATIVE [facility] Comment on above: Performed By: #### C DIFPOC ####[facility] [address] [place], [place] [address]Dr. Kalie Bess CBC AUTO DIFFon 11-30-2022 BASO # 0.1 103/ul Normal 0.0-0.1 [facility] Comment on above: Performed By: #### C BC ####[facility] Avpixw[address] [place], [place] [address]Dr. Kalie Bess Basophils/100 WBC (Bld) 0.4 % Normal 0.2-2.0 [facility] Comment on above: Performed By: #### C BC ####[facility] [address] [place] [id number]. Kalie Bess EO # 0.4 103/ul Normal 0.0-0.7 [facility] Comment on above: Performed By: #### C BC ####[facility] [address] [place] [address]Dr. Kalie Bess Eosinophils/100 WBC (Bld) 2.5 % Normal 0.9-7.0 [facility] Comment on above: Performed By: #### C BC ####[facility] [address] [place] [address]Dr. Kalie Bess Erythrocyte distribution width (RBC) [Ratio] 14.1 % Normal 11.0-15.0 [facility] Comment on above: Performed By: #### C BC ####[facility] [address] [place] [address]Dr. Kalie Bess Hematocrit (Bld) [Volume fraction] 24.3 % Critically low 36.0-48.0 [facility] Comment on above: Performed By: #### C BC ####[facility] [address] [place] [id number]. Kalie Bess Hemoglobin (Bld) [Mass/Vol] 7.3 g/dL Critically low 12.0-16.0 [facility] Comment on above: Performed By: #### C BC ####[facility] [address] [place] [address]Dr. Kalie Bess IG # 0.29 10e3/ul Critically high 0.00-0.03 [facility] Comment on above: Performed By: #### C BC ####[facility] [address] [place] [address]Dr. Kalie Bess IG % 1.9 % Critically high 0.0-0.5 [facility] Comment on above: Performed By: #### C BC ####[facility] [address] [place] [address]Dr. Kalie Shahriar LYMPH # 3.6 103/ul Normal 1.2-3.8 [facility] Comment on above: Performed By: #### C BC ####[facility] [address] [place] [address]Dr. Kalie Shahriar Lymphocytes/100 WBC (Bld) 23.1 % Normal 20.5-60.0 [facility] Comment on above: Performed By: #### C BC ####[facility] [address] [place] [address]Dr. Shayyroxie Bess MANUAL DIFF REQ NO Normal [facility] Comment on above: Performed By: #### C BC ####[facility] [address]uh[address] [place] [address]Dr. Kalie Shahriar MCH (RBC) [Entitic mass] 28.9 pg Normal 26.7-34.0 [facility] Comment on above: Performed By: #### C BC ####[facility] [address] [place] [address]Dr. Kalie Bess MCHC (RBC) [Mass/Vol] 30.0 g/dL Normal 29.9-35.2 [facility] Comment on above: Performed By: #### C BC ####[facility] [address] [place] [id number]. Kalie Shahriar MCV (RBC) [Entitic vol] 96.0 fL Normal 81.0-99.0 [facility] Comment on above: Performed By: #### C BC ####[facility] [address]xu[address] [place] [address]Dr. Kalie Shahriar MONO # 0.8 103/ul Normal 0.3-0.8 [facility] Comment on above: Performed By: #### C BC ####[facility] [address] [place] [address]Dr. Kalie Shahriar Monocytes/100 WBC (Bld) 5.0 % Normal 1.7-12.0 [facility] Comment on above: Performed By: #### C BC ####[facility] [address] [place] [address]Dr. Kalie Bess NEUT # 10.5 103/ul Critically high 1.4-6.5 [facility] Comment on above: Performed By: #### C BC ####[facility] [address]cl[address]igqf[address] [place] [address]Dr. Kalie Bess Neutrophils/100 WBC (Bld) 67.1 % Normal 43.0-75.0 [facility] Comment on above: Performed By: #### C BC ####[facility] [address] [place] [address]Dr. Kalie Bess Platelet mean volume (Bld) [Entitic vol] 10.8 fL Normal 9.5-13.5 [facility] Comment on above: Performed By: #### C BC ####[facility] [address] [place] [address]Dr. Kalie Bess PLT 272 103/ul Normal 150-450 [facility] Comment on above: Performed By: #### C BC ####[facility] [address]tt[address] [place] [address]Dr. Kalie Bess RBC 2.53 106/ul Critically low 4.20-5.40 [facility] Comment on above: Performed By: #### C BC ####[facility] [address]axz[address] [place] [address]Dr. Kalie Bess WBC 15.7 103/ul Critically high 4.0-11.0 [facility] Comment on above: Performed By: #### C BC ####[facility] [address]ko[address] [place] [address]Dr. Kalie Bess CRPon 11-30-2022 CRP 4.9 mg/dL Critically high <=1.0 [facility] Comment on above: Performed By: #### C RP, CMP ####[facility] [address] [place] [address]Dr. Kalie Bess POINT OF CARE GLUCOSEon 02-0 Glucose [Mass/Vol] 295 mg/dL Critically high 74-106 T [facility] Comment on above: Performed By: #### P OCGLUC ####[facility] [address]ox[address] [place] [id number]. Kalie Bess Glucose [Mass/Vol] 166 mg/dL Critically high 74-106 T [facility] Comment on above: Performed By: #### P OCGLUC ####[facility] [address]fsv[address] [place] [address]Dr. Kalie Bess PROF 14(COMP METB)on 023 Albumin [Mass/Vol] 1.6 g/dL Critically low 3.4-5.0 [facility] Comment on above: Performed By: #### C RP, CMP ####[facility] [address]xfwrkjl[address] [place] [address]Dr. Kalie Bess Albumin/Globulin [Mass ratio] 0.4 {ratio} Normal [facility] Comment on above: Performed By: #### C RP, CMP ####[facility] [address] [place], [place] [address]Dr. Kalie Bess ALP [Catalytic activity/Vol] 115 U/L Normal 46-116 [facility] Comment on above: Performed By: #### C RP, CMP ####[facility] Sp[address]evbsidd[address] [place] [address]Dr. Kalie Bess ALT [Catalytic activity/Vol] 21 U/L Normal 14-59 [facility] Comment on above: Performed By: #### C RP, CMP ####[facility] Tes[address]wnpkm[address] [place] [address]Dr. Kalie Bess Anion gap [Moles/Vol] 10.2 mmol/L Normal [facility] Comment on above: Performed By: #### C RP, CMP ####[facility] [address]ceqd[address] [place] [address]Dr. Kalie Bess AST [Catalytic activity/Vol] 15 U/L Normal 15-37 [facility] Comment on above: Performed By: #### C RP, CMP ####[facility] [address]rh[address] [place] [address]Dr. Kalie Bess Bilirubin [Mass/Vol] 0.1 mg/dL Critically low 0.2-1.0 [facility] Comment on above: Performed By: #### C RP, CMP ####[facility] [address]otkl[address] [place] [address]Dr. Kalie Bess Calcium [Mass/Vol] 8.1 mg/dL Critically low 8.5-10.1 Th [facility] Comment on above: Performed By: #### C RP, CMP ####[facility] X[address]qx[address] [place] [address]Dr. Kalie Bess Chloride [Moles/Vol] 104 mmol/L Normal 98-107 [facility] Comment on above: Performed By: #### C RP, CMP ####[facility] [address] [place], [place] [address]Dr. Kalie Bess CO2 [Moles/Vol] 26.1 mmol/L Normal 21.0-32.0 [facility] Comment on above: Performed By: #### C RP, CMP ####[facility] V[address] [place], [place] [address]Dr. Kalie Bess Creatinine [Mass/Vol] 1.88 mg/dL Critically high 0.55-1.02 [facility] Comment on above: Performed By: #### C RP, CMP ####[facility] S[address] [place], [place] [address]Dr. Kalie Bess EGFR-AF TAIWANESE 34 mL/min/1.73m2 Critically low >=60 [facility] Comment on above: Performed By: #### C RP, CMP ####[facility] [address] [place], [place] [address]Dr. Kalie Bess EGFR-NON AF TAIWANESE 28 mL/min/1.73m2 Critically low >=60 [facility] Comment on above: Performed By: #### C RP, CMP ####[facility] Cf[address]usma[address] [place], [place] [address]Dr. Kalie Shahriar Globulin (S) [Mass/Vol] 4.5 g/dL Normal [facility] Comment on above: Performed By: #### C RP, CMP ####[facility] Ak[address] [place], [place] [address]Dr. Kalie Bess Glucose [Mass/Vol] 171 mg/dL Critically high 74-106 T [facility] Comment on above: Performed By: #### C RP, CMP ####[facility] [address]fzdqyt[address] [place] [address]Dr. Kalie Bess Potassium [Moles/Vol] 4.3 mmol/L Normal 3.5-5.1 [facility] Comment on above: Performed By: #### C RP, CMP ####[facility] [address]bq[address] [place] [address]Dr. Kalie Bess Protein [Mass/Vol] 6.1 g/dL Critically low 6.4-8.2 Th [facility] Comment on above: Performed By: #### C RP, CMP ####[facility] Sha[address] [place], [place] [address]Dr. Shayyroxie Bess Sodium [Moles/Vol] 136 mmol/L Normal 136-145 [facility] Comment on above: Performed By: #### C RP, CMP ####[facility] Je[address] [place], [place] [address]Dr. Kalie Shahriar Urea nitrogen [Mass/Vol] 17.0 mg/dL Normal 7.0-18.0 [facility] Comment on above: Performed By: #### C RP, CMP ####[facility] W[address] [place], [place] [address]Dr. Shayyroxie Shahriar Urea nitrogen/Creatinine [Mass ratio] 9.0 mg/mg Normal [facility] Comment on above: Performed By: #### C RP, CMP ####[facility] [address]ej[address] [place] [address]Dr. Shayyroxie Shahriar SED RATE WESTBANNERRENon 2022 SED RATE 77 mm/hr Critically high <=30 [facility] Comment on above: Performed By: #### S EDR ####[facility] [facility] Uvwcahdfh[address] [place], [place] [address]Dr. Shayyroxie Shahriar CBC AUTO DIFFon 11-29-2022 BASO # 0.1 103/ul Normal 0.0-0.1 [facility] Comment on above: Performed By: #### C BC ####[facility] [place] Eqszphnquo0468 [place] [id number]. Kalie Bess Basophils/100 WBC (Bld) 0.3 % Normal 0.2-2.0 The [facility] [place] Comment on above: Performed By: #### C BC ####[facility] [place] Pcrjaamtfq7602 [place] [id number]. Kalie Bess EO # 0.4 103/ul Normal 0.0-0.7 The [facility] [place] Comment on above: Performed By: #### C BC ####[facility] [place] Auvdjxgx[address] [place], [place] [id number]. Kalie Bess Eosinophils/100 WBC (Bld) 2.3 % Normal 0.9-7.0 The [facility] [place] Comment on above: Performed By: #### C BC ####[facility] [place] Irjbiusnco[address] [place], [place] [address]Dr. Kalie Bess Erythrocyte distribution width (RBC) [Ratio] 14.0 % Normal 11.0-15.0 The [facility] [place] Comment on above: Performed By: #### C BC ####[facility] [place] Sdnlqlupkv2504 [place] [id number]. Kalie Bess Hematocrit (Bld) [Volume fraction] 24.7 % Critically low 36.0-48.0 [facility] Comment on above: Performed By: #### C BC ####[facility] [place] Cnnvpublbk3298 [place] [id number]. Kalie Bess Hemoglobin (Bld) [Mass/Vol] 7.5 g/dL Critically low 12.0-16.0 The [facility] [place] Comment on above: Performed By: #### C BC ####[facility] [place] Tkvnfkwlud7954 [place] [address]Dr. Kalie Bess IG # 0.37 10e3/ul Critically high 0.00-0.03 [facility] Comment on above: Performed By: #### C BC ####[facility] [place] Krglllvb[address] [place], [place] [id number]. Kalie Bess IG % 2.1 % Critically high 0.0-0.5 The [facility] Comment on above: Performed By: #### C BC ####[facility] [place] Jrlpjktkoi4894 [place] [id number]. Kalie Bess LYMPH # 3.3 103/ul Normal 1.2-3.8 The [facility] [place] Comment on above: Performed By: #### C BC ####[facility] [place] [address]vosjim[address] [place], [place] [address]Me. Kalie Shahriar Lymphocytes/100 WBC (Bld) 18.8 % Critically low 20.5-60.0 The [facility] [place] Comment on above: Performed By: #### C BC ####[facility] [place] Htymwllhvo8611 [place] [id number]. Shayyroxie Bess MANUAL DIFF REQ NO Normal The [facility] Comment on above: Performed By: #### C BC ####[facility] [place] Dthwqxjffw1933 [place] [id number]. Kalie Shahriar MCH (RBC) [Entitic mass] 28.8 pg Normal 26.7-34.0 The [facility] [place] Comment on above: Performed By: #### C BC ####[facility] [place] Ovrvxpazvq4188 [place] [id number]. Kalie Bess MCHC (RBC) [Mass/Vol] 30.4 g/dL Normal 29.9-35.2 The [facility] [place] Comment on above: Performed By: #### C BC ####[facility] [place] Ftpmytdjay9722 [place] [id number]. Kalie Bess MCV (RBC) [Entitic vol] 95.0 fL Normal 81.0-99.0 The [facility] [place] Comment on above: Performed By: #### C BC ####[facility] [place] Pbyiaydldf3577 [place] [address]Dr. Kalie Shahriar MONO # 0.9 103/ul Critically high 0.3-0.8 The [facility] Comment on above: Performed By: #### C BC ####[facility] [place] Sashaysdoj8718 [place] [address]Dr. Kalie Bess Monocytes/100 WBC (Bld) 5.1 % Normal 1.7-12.0 The [facility] [place] Comment on above: Performed By: #### C BC ####[facility] [place] Sbyhrtorra7698 [place] [address]Dr. Kalie Bess NEUT # 12.3 103/ul Critically high 1.4-6.5 The [facility] Comment on above: Performed By: #### C BC ####[facility] [place] Hsbopaqfym8123 [place] [id number]. Kalie Bess Neutrophils/100 WBC (Bld) 71.4 % Normal 43.0-75.0 The [facility] [place] Comment on above: Performed By: #### C BC ####[facility] [place] Coshebotmp3473 [place] [id number]. Kalie Bess Platelet mean volume (Bld) [Entitic vol] 10.7 fL Normal 9.5-13.5 The [facility] [place] Comment on above: Performed By: #### C BC ####[facility] [place] Jhwxtmgckn8759 [place] [address]Dr. Kalie Bess PLT 268 103/ul Normal 150-450 The [facility] [place] Comment on above: Performed By: #### C BC ####[facility] [place] Pdrahmpjsc8352 [place] [address]Dr. Kalie Bess RBC 2.60 106/ul Critically low 4.20-5.40 The [facility] Comment on above: Performed By: #### C BC ####[facility] [place] Vdmsdrdrav0224 [place] [address]Dr. Kalie Bess WBC 17.3 103/ul Critically high 4.0-11.0 The [facility] Comment on above: Performed By: #### C BC ####[facility] [place] Uydtcatigl4215 [place] [id number]. Kalie Bess CBC W MANUAL DIFFon 11-29-19 23 ATYPICAL LYMPH # 0.00 103/ul Normal The [facility] Comment on above: Performed By: #### C BCMAN ####[facility] [place] Ybqmuxcaic4064 [place] [id number]. Kalie Bess ATYPICAL LYMPH % 0 % Normal The [facility] Comment on above: Performed By: #### C BCMAN ####[facility] [place] Xgzzgnoscu7266 [place] [address]Dr. Yilan Bess BAND # 0.2 103/ul Normal 0.0-0.3 The [facility] [place] Comment on above: Performed By: #### C BCGABRIELLA ####[facility] [place] Vylwltszli[address] [place] [address]Dr. Shayylan Bess BAND % 1 % Normal 0-5 The [facility] [place] Comment on above: Performed By: #### C BCGABRIELLA ####[facility] [place] Gshvpmkscz3286 [place] [address]Dr. Yilan Bess BASOM # 0.00 103/ul Normal 0.00-0.10 The [facility] [place] Comment on above: Performed By: #### C NANCY ####[facility] [place] Fbzperjqkd[address] [place], [place] [address]Dr. Kalie Bess BASOM % 0.0 % Critically low 0.2-2.0 The [facility] Comment on above: Performed By: #### C NANCY ####[facility] [place] Kropdgvjyc[address] [place], [place] [address]Dr. Yilan Bess BLAST # Normal The [facility] [place] Comment on above: Performed By: #### C NANCY ####[facility] [place] Ojylpqeqot[address] [place], [place] [address]Dr. Yilan Ebss BLAST % Normal The [facility] [place] Comment on above: Performed By: #### C NANCY ####[facility] [place] Yfrwornfdt9187 [place] [address]Dr. Kalie Bess CORRECTED WBC Normal 4.0-11.0 The [facility] Comment on above: Performed By: #### C BCGABRIELLA ####[facility] [place] Zjkwioskwv7888 [place] [address]Dr. Yiroxie Bess EOS # 0.78 103/ul Critically high 0.00-0.70 The [facility] Comment on above: Performed By: #### C BCGABRIELLA ####[facility] [place] Jvacdggsur[address] [place], [place] [address]Dr. Yiroxie Bess EOS% 4.0 % Normal 0.9-7.0 The [facility] [place] Comment on above: Performed By: #### C NANCY ####[facility] [place] Wfxtispcev0970 [place], [place] [address]Bi. Kalie Bess HCT 24.8 % Critically low 36.0-48.0 The [facility] Comment on above: Performed By: #### C NANCY ####[facility] [place] Jdtnqyhoyp7668 [place], [place] [address]Ni. Kalie Bess HGB 7.4 g/dl Critically low 12.0-16.0 The [facility] Comment on above: Performed By: #### C NANCY ####[facility] [place] Ybopujxydv8037 [place], [place] [address]Yg. Kalie Bess HYPOCHROMASIA 1+ Normal The [facility] Comment on above: Performed By: #### C NANCY ####[facility] [place] Jrprrgvrqj7258 [place], [place] [address]Vu. Kalie Bess LYMPHM # 1.94 103/ul Normal 1.20-3.80 The [facility] [place] Comment on above: Performed By: #### C NANCY ####[facility] [place] Gvdoojbjkx0216 [place] [id number]. Kalie Bess LYMPHM% 10.0 % Critically low 20.5-60.0 The [facility] Comment on above: Performed By: #### C NANCY ####[facility] [place] Ebsqmkispx9257 [place], [place] [address]Ig. Kalie Bess MCH 28.8 pg Normal 26.7-34.0 The [facility] [place] Comment on above: Performed By: #### C NANCY ####[facility] [place] Pfeeicwqrg2336 [place], [place] [address]He. Kalie Bess MCHC 29.8 g/dl Critically low 29.9-35.2 The [facility] Comment on above: Performed By: #### C NANCY ####[facility] [place] Afkjdpcvxo5272 [place] [address]Dr. Kalie Bess MCV 96.5 fL Normal 81.0-99.0 The [facility] [place] Comment on above: Performed By: #### Marisela CRUZ ####[facility] [place] Khqbbpufzi4011 [place] [address]Dr. Kalie Bess METAMYELOCYTE # Normal The [facility] Comment on above: Performed By: #### C NANCY ####[facility] [place] Umovxnnsui1208 [place] [address]Dr. Kalie Bess METAMYELOCYTE % Normal The [facility] Comment on above: Performed By: #### C NANCY ####[facility] [place] Wmibepbyfd4212 [place] [address]Dr. Kalie Bess MICROCYTOSIS SLIGHT Normal The [facility] [place] Comment on above: Performed By: #### C NANCY ####[facility] [place] Oernrmyiwg2574 [place] [address]Dr. Kalie Bess MONOM# 0.97 103/ul Critically high 0.30-0.80 [facility] Comment on above: Performed By: #### C NANCY ####[facility] [place] Insjevbqkc6890 [place] [address]Dr. Kalie Bess MONOM% 5.0 % Normal 1.7-12.0 [facility] Comment on above: Performed By: #### C NANCY ####[facility] [place] Ggsddbnbmx8161 [place] [address]Dr. Kalie Shahriar MPV 10.9 fL Normal 9.5-13.5 [facility] Comment on above: Performed By: #### C NANCY ####[facility] [place] Ooirtlaovr7671 [place] [address]Dr. Kalie Bess MYELOCYTE # Normal The [facility] [place] Comment on above: Performed By: #### Marisela CRUZ ####[facility] [place] Ychffspsma3746 [place] [address]Dr. Kalie Bess MYELOCYTE % Normal The [facility] [place] Comment on above: Performed By: #### C NANCY ####[facility] [place] Ugxktztiej[address] [place], [place] [address]Dr. Kalie Bess NRBC Normal The [facility] [place] Comment on above: Performed By: #### C NANCY ####[facility] [place] Eapewnelwt5497 [place] [address]Dr. Kalie Bess PLT 271 103/ul Normal 150-450 The [facility] Comment on above: Performed By: #### C NANCY ####[facility] [place] Eoaojdovlf6153 [place], [place] [address]Ep. Kalie Bess RBC 2.57 106/ul Critically low 4.20-5.40 [facility] Comment on above: Performed By: #### C NANCY ####[facility] [place] Appewbpqgj1811 [place], [place] [address]Io. Kalie Bess RDW 14.1 % Normal 11.0-15.0 [facility] Comment on above: Performed By: #### C NANCY ####[facility] Rrovtvmecy5501 [place], [place] [address]Xx. Kalie Bess SEG # 15.52 103/ul Critically high 1.40-6.50 [facility] Comment on above: Performed By: #### C NANCY ####[facility] [place] Rjpgjfljno7201 [place] [address]Dr. Kalie Bess SEG % 80.0 % Critically high 43.0-75.0 [facility] Comment on above: Performed By: #### C NANCY ####[facility] Byfoqqurht2859 [place], [place] [address]Gl. Kalie Bess STOMATOCYTES SLIGHT Normal [facility] Comment on above: Performed By: #### C NANCY ####[facility] Vhewqmlbdi6359 [place], [place] [address]Ys. Kalie Bess WBC 19.4 103/ul Critically high 4.0-11.0 [facility] Comment on above: Performed By: #### C NANCY ####[facility] Pduexwjmdo8509 [place], [place] [address]Ts. Kalie Bess CRPon 11-29-2022 CRP 5.7 mg/dL Critically high <=1.0 [facility] Comment on above: Performed By: #### C MP, CRP ####[facility] [place] Dbtkrvymyz8891 [place] [address]Dr. Kalie Bess POINT OF CARE GLUCOSEon Glucose [Mass/Vol] 225 mg/dL Critically high 74-106 [facility] Comment on above: Performed By: #### P OCGLUC ####[facility] Szhfqdzjlj6415 [place] [address]Dr. Kalie Bess Glucose [Mass/Vol] 144 mg/dL Critically high 74-106 [facility] Comment on above: Performed By: #### P OCGLUC ####[facility] [place] Tlvbhkndxt4049 [place] [address]Dr. Shayyroxie Shahriar Glucose [Mass/Vol] 243 mg/dL Critically high 74-106 [facility] Comment on above: Performed By: #### P OCGLUC ####[facility] [place] Rxxwkenkic0429 [place] [address]Dr. Kalie Bess Glucose [Mass/Vol] 214 mg/dL Critically high 74-106 [facility] Comment on above: Performed By: #### P OCGLUC ####[facility] [place] Njmtwhaljs6157 [place] [address]Dr. Kalie Bess PROF 14(COMP METB)on 023 Albumin [Mass/Vol] 1.5 g/dL Critically low 3.4-5.0 Th [facility] Comment on above: Performed By: #### C MP, CRP ####[facility] [place] Tbuunaxwyz1472 [place] [address]Dr. Kalie Bess Albumin/Globulin [Mass ratio] 0.4 {ratio} Normal [facility] Comment on above: Performed By: #### C MP, CRP ####[facility] [place] Drovlbhpia8546 [place] [address]Dr. Kalie Bess ALP [Catalytic activity/Vol] 117 U/L Critically high 46-116 [facility] Comment on above: Performed By: #### C MP, CRP ####[facility] [place] Bsgolqvoit7018 [place] [address]Dr. Kalie Bess ALT [Catalytic activity/Vol] 21 U/L Normal 14-59 [facility] Comment on above: Performed By: #### C MP, CRP ####[facility] [place] Ncatqjabub5263 [place] [id number]. Kalie Bess Anion gap [Moles/Vol] 9.7 mmol/L Normal [facility] Comment on above: Performed By: #### C MP, CRP ####[facility] [place] Wdfvirqbji3734 [place] [address]Dr. Kalie Bess AST [Catalytic activity/Vol] 16 U/L Normal 15-37 [facility] Comment on above: Performed By: #### C MP, CRP ####[facility] [place] Lobugppabf9799 [place] [address]Dr. Kalie Shahriar Bilirubin [Mass/Vol] 0.2 mg/dL Normal 0.2-1.0 [facility] Comment on above: Performed By: #### C MP, CRP ####[facility] [place] Ecljsrsauo[address] [place], [place] [address]Dr. Kalie Bess Calcium [Mass/Vol] 7.8 mg/dL Critically low 8.5-10.1 Th [facility] Comment on above: Performed By: #### C MP, CRP ####[facility] [place] Ziktatorhu[address] [place], [place] [address]Dr. Kalie Shahriar Chloride [Moles/Vol] 102 mmol/L Normal 98-107 The [facility] [place] Comment on above: Performed By: #### C MP, CRP ####[facility] [place] Gmaoitrgxp[address] [place], [place] [address]Dr. Kalie Shahriar CO2 [Moles/Vol] 28.4 mmol/L Normal 21.0-32.0 [facility] Comment on above: Performed By: #### C MP, CRP ####[facility] [place] Jjdwkflbww[address] [place], [place] [address]Dr. Kalie Shahriar Creatinine [Mass/Vol] 1.85 mg/dL Critically high 0.55-1.02 [facility] Comment on above: Performed By: #### C MP, CRP ####[facility] [place] Sigpjyaiqs[address] [place], [place] [address]Dr. Shayyroxie Shahriar EGFR-AF TAIWANESE 35 mL/min/1.73m2 Critically low >=60 The [facility] [place] Comment on above: Performed By: #### C MP, CRP ####[facility] [place] Baxvmsvtue32[address] [place], [place] [address]Dr. Kalie Bess EGFR-NON AF TAIWANESE 29 mL/min/1.73m2 Critically low >=60 [facility] Comment on above: Performed By: #### C MP, CRP ####[facility] Lsbrenyteb2447 [place] [address]Dr. Kalie Bess Globulin (S) [Mass/Vol] 4.2 g/dL Normal [facility] Comment on above: Performed By: #### C MP, CRP ####[facility] [place] Bugbdbhkib0819 [place] [address]Dr. Kalie Bess Glucose [Mass/Vol] 250 mg/dL Critically high 74-106 T [facility] Comment on above: Performed By: #### C MP, CRP ####[facility] [place] Ceogjvksrf347[address] [place], [place] [address]Dr. Kalie Bess Potassium [Moles/Vol] 4.1 mmol/L Normal 3.5-5.1 [facility] Comment on above: Performed By: #### C MP, CRP ####[facility] [place] Lzectefkgl[address] [place], [place] [address]Dr. Kalie Bess Protein [Mass/Vol] 5.7 g/dL Critically low 6.4-8.2 Th [facility] Comment on above: Performed By: #### C MP, CRP ####[facility] Cxhakfzpgb17[address] [place], [place] [address]Dr. Kalie Bess Sodium [Moles/Vol] 136 mmol/L Normal 136-145 [facility] Comment on above: Performed By: #### C MP, CRP ####[facility] [place] Hbghbwtrsh9321 [place] [address]Dr. Kalie Bess Urea nitrogen [Mass/Vol] 17.0 mg/dL Normal 7.0-18.0 [facility] Comment on above: Performed By: #### C MP, CRP ####[facility] [place] Uqsyqrwtlj65[address] [place], [place] [address]Dr. Kalie Bess Urea nitrogen/Creatinine [Mass ratio] 9.2 mg/mg Normal [facility] Comment on above: Performed By: #### C MP, CRP ####[facility] Oficqelqjc5935 [place] [address]Dr. Kalie Bess SED RATE WESTERGRENon 2022 SED RATE 63 mm/hr Critically high <=30 The [facility] Comment on above: Performed By: #### S EDR ####[facility] [place] Mylacygknf[address] [place], [place] [address]Dr. Kalie Bess TYPE AND SCREENon 11-29-2022 TYPE AND SCREEN Negative Normal The [facility] Comment on above: Performed By: #### T NS ####[facility] [place] Szociwnlfo9[address] [place], [place] [address]Dr. Kalie Bess CBC W MANUAL DIFFon 11-28-19 23 ANISOCYTOSIS SLIGHT Normal The [facility] [place] Comment on above: Performed By: #### C BCMAN ####[facility] [place] Lnsbpkjlxz[address] [place], [place] [address]Dr. Kalie Bess ATYPICAL LYMPH # 0.37 103/ul Normal The [facility] Comment on above: Performed By: #### C BCMAN ####[facility] Ieasyqnjfj668[address] [place], [place] [address]Dr. Kalie Bess ATYPICAL LYMPH % 2 % Normal The [facility] Comment on above: Performed By: #### C BCMAN ####[facility] [place] Ovtkywhruu[address] [place], [place] [address]Dr. Kalie Bess BAND # 0.6 103/ul Critically high 0.0-0.3 The [facility] Comment on above: Performed By: #### C BCMAN ####[facility] [place] Skxgmqsuen85[address] [place], [place] [address]Dr. Kalie Bess BAND % 3 % Normal 0-5 The [facility] [place] Comment on above: Performed By: #### C BCMAN ####[facility] [place] Kvhrvgvpjk8[address] [place], [place] [address]Dr. Kalie Bess BASOM # 0.00 103/ul Normal 0.00-0.10 The [facility] [place] Comment on above: Performed By: #### C BCMAN ####[facility] [place] Fdevyczyuu5[address] [place], [place] [address]Dr. Kalie Bess BASOM % 0.0 % Critically low 0.2-2.0 The [facility] Comment on above: Performed By: #### C NANCY ####[facility] Ycbuazbmwz7[address] [place] [address]Dr. Kalie Bess BLAST # Normal The [facility] Comment on above: Performed By: #### C NANCY ####[facility] [place] Anymwlenyv9754 [place] [id number]. Kalie Bess BLAST % Normal The [facility] Comment on above: Performed By: #### C NANCY ####[facility] Lzhhrhjtpg644[address] [place], [place] [address]Dr. Kalie Bess CORRECTED WBC Normal 4.0-11.0 The [facility] Comment on above: Performed By: #### C NANCY ####[facility] Xlhzimdldo5[address] [place], [place] [address]Dr. Kalie Bess EOS # 0.56 103/ul Normal 0.00-0.70 The [facility] [place] Comment on above: Performed By: #### Marisela CRUZ ####[facility] Zmzzjqriiu332[address] [place], [place] [address]Dr. Kalie Bess EOS% 3.0 % Normal 0.9-7.0 The [facility] Comment on above: Performed By: #### Marisela CRUZ ####[facility] [place] Ckxrteixcj[address] [place], [place] [address]Dr. Kalie Bess HCT 27.8 % Critically low 36.0-48.0 The [facility] Comment on above: Performed By: #### Marisela CRUZ ####[facility] Prqyctgbge8[address] [place], [place] [address]Dr. Kalie Bess HGB 8.9 g/dl Critically low 12.0-16.0 The [facility] Comment on above: Performed By: #### C NANCY ####[facility] Fgcahnruuj09[address] [place], [place] [address]Dr. Kalie Bess HYPOCHROMASIA 1+ Normal The [facility] Comment on above: Performed By: #### C NANCY ####[facility] Cldklbtwpz8[address] [place], [place] [address]Dr. Kalie Bess LYMPHM # 2.99 103/ul Normal 1.20-3.80 The [facility] Comment on above: Performed By: #### C NANCY ####[facility] Bynhdcztle1440 [place] [id number]. Kalie Bess LYMPHM% 16.0 % Critically low 20.5-60.0 The [facility] Comment on above: Performed By: #### C NANCY ####[facility] Wsnoyhfpvy5932 [place] [id number]. Kalie Bess MCH 28.8 pg Normal 26.7-34.0 The [facility] Comment on above: Performed By: #### C NANCY ####[facility] [place] Ltdumivhsl3779 [place] [address]Dr. Kalie Bess MCHC 32.0 g/dl Normal 29.9-35.2 The [facility] [place] Comment on above: Performed By: #### C NANCY ####[facility] [place] Lvvzhlthhx4341 [place] [address]Dr. Kalie Bess MCV 90.0 fL Normal 81.0-99.0 The [facility] Comment on above: Performed By: #### C NANCY ####[facility] Jbiuwrwiqg6[address] [place], [place] [address]Dr. Kalie Bess METAMYELOCYTE # Normal The [facility] Comment on above: Performed By: #### C NANCY ####[facility] Jurlqtyerq7853 [place] [id number]. Kalie Bess METAMYELOCYTE % Normal The [facility] Comment on above: Performed By: #### C NANCY ####[facility] Ussfsrqriz6698 [place] [address]Dr. Kalie Bess MONOM# 0.94 103/ul Critically high 0.30-0.80 The [facility] Comment on above: Performed By: #### C NANCY ####[facility] Iugokwouvo2997 [place] [address]Dr. Kalie Bess MONOM% 5.0 % Normal 1.7-12.0 The [facility] Comment on above: Performed By: #### C NANCY ####[facility] Rjkqnddbpj7236 [place], [place] [address]Hh. Kalie Bess MPV 10.4 fL Normal 9.5-13.5 The [facility] [place] Comment on above: Performed By: #### C NANCY ####[facility] Gbedmcknun7564 [place], [place] [address]Zh. Kalie Bess MYELOCYTE # Normal The [facility] Comment on above: Performed By: #### C NANCY ####[facility] Ntxqlkwpdc7035 [place] [id number]. Kalie Bess MYELOCYTE % Normal The [facility] [place] Comment on above: Performed By: #### C NANCY ####[facility] [place] Bsitftvgyv5940 [place] [address]Dr. Kalie Bess NRBC Normal The [facility] Comment on above: Performed By: #### C NANCY ####[facility] Zpkfkzqwqd0871 [place] [address]Dr. Kalie Bess PLT 285 103/ul Normal 150-450 The [facility] [place] Comment on above: Performed By: #### C NANCY ####[facility] Dzuytrzlna8238 [place] [address]Dr. Kalie Bess RBC 3.09 106/ul Critically low 4.20-5.40 The [facility] Comment on above: Performed By: #### Marisela CRUZ ####[facility] [place] Wttjaryhaz9108 [place] [address]Dr. Kalie Bess RDW 13.6 % Normal 11.0-15.0 The [facility] Comment on above: Performed By: #### C NANCY ####[facility] Agxwwiqcez1230 [place], [place] [address]Yh. Kalie Bess SEG # 13.28 103/ul Critically high 1.40-6.50 The [facility] Comment on above: Performed By: #### C NANCY ####[facility] [place] Wcbyokcmor2079 [place] [address]Dr. Kalie Bess SEG % 71.0 % Normal 43.0-75.0 The [facility] Comment on above: Performed By: #### C NANCY ####[facility] [place] Mclqjumjun4857 [place] [address]Dr. Kalie Bess WBC 18.7 103/ul Critically high 4.0-11.0 The [facility] Comment on above: Performed By: #### C BCMAN ####[facility] Xppsjrsukf8492 [place] [address]Dr. Kalie Shahriar CRPon 11-28-2022 CRP 4.6 mg/dL Critically high <=1.0 The [facility] Comment on above: Performed By: #### C MP, CRP ####[facility] [place] Pzllstdaya8549 [place] [id number]. Kalie Bess CULTURE ANAEROBICon 11-28-19 23 CULTURE ANAEROBIC Culture Observations : NO GROWTH OF ANAEROBES AT 72 HOURS. Normal The [facility] [place] Comment on above: Performed By: #### A NACX ####[facility] Pcgbpqxfdn[address] [place], [place] [address]Dr. Kalie Bess CULTURE OTHERon 11-28-2022 CULTURE OTHER Culture Observations : NO GROWTH OF AEROBES AT 48 HOURS. Normal The [facility] Comment on above: Performed By: #### O THCX ####[facility] Krsuhbqiut5[address] [place], [place] [address]Dr. Kalie Bess GRAM STAINon 11-28-2022 COMMENTS NO ORGANISMS OBSERVED Normal The [facility] Comment on above: Performed By: #### G STAIN ####[facility] Ugdfdklzir9[address] [place], [place] [address]Dr. Kalie Bess DIPHTHEROIDS Normal The [facility] Comment on above: Performed By: #### G STAIN ####[facility] Tzbtyuwemm806[address] [place], [place] [address]Dr. Kalie Bess EPITHELIALS FEW Normal The [facility] Comment on above: Performed By: #### G STAIN ####[facility] Viegakpnev[address]64[address] [place], [place] [address]Dr. Kalie Bess FUNGAL ELEMENTS Normal The [facility] Comment on above: Performed By: #### G STAIN ####[facility] Bhqucowpww996[address] [place], [place] [address]Dr. Kalie Bess GRAM NEG BACILLI Normal The [facility] Comment on above: Performed By: #### G STAIN ####[facility] Gdivuohnpq2674 [place] [address]Dr. Kalie Bess GRAM NEG DIPPLOCOCCI Normal [facility] Comment on above: Performed By: #### G STAIN ####[facility] Plzvtoblul7213 [place] [address]Dr. Kalie Bess GRAM POS BACILLI Normal The [facility] Comment on above: Performed By: #### G STAIN ####[facility] Nbvfcawdps3698 [place] [address]Dr. Kalie Bess GRAM POSITIVE COCCI Normal [facility] Comment on above: Performed By: #### G STAIN ####[facility] Ilbzqvijrb6949 [place] [address]Dr. Kalie Bess GRAM STAIN SOURCE l. breast abcess Normal [facility] Comment on above: Performed By: #### G STAIN ####[facility] Wzlirxgzma[address] [place], [place] [address]Dr. Kalie Bess GS_DIPTH Normal [facility] Comment on above: Performed By: #### G STAIN ####[facility] Nplayjfvot[address] [place], [place] [address]Dr. Kalie Bess WBC RARE Normal [facility] Comment on above: Performed By: #### G STAIN ####[facility] Rudtdhdtww9738 [place] [address]Dr. Kalie Bess POINT OF CARE GLUCOSEon Glucose [Mass/Vol] 151 mg/dL Critically high 74-106 [facility] Comment on above: Performed By: #### P OCGLUC ####[facility] Fszpxhifjd5564 [place] [address]Dr. Kalie Bess Glucose [Mass/Vol] 159 mg/dL Critically high 74-106 [facility] Comment on above: Performed By: #### P OCGLUC ####[facility] Ozbzhvzusb0250 [place] [address]Dr. Kalie Bess PROF 14(COMP METB)on 023 Albumin [Mass/Vol] 1.7 g/dL Critically low 3.4-5.0 Th [facility] Comment on above: Performed By: #### C MP, CRP ####[facility] Quykonkdft6253 [place] [address]Dr. Kalie Bess Albumin/Globulin [Mass ratio] 0.4 {ratio} Normal [facility] Comment on above: Performed By: #### C MP, CRP ####[facility] Vwjtvrbxpx5696 [place] [address]Dr. Kalie Bess ALP [Catalytic activity/Vol] 133 U/L Critically high 46-116 [facility] Comment on above: Performed By: #### C MP, CRP ####[facility] Geybhxgzbt0689 [place] [address]Dr. Kalie Bess ALT [Catalytic activity/Vol] 23 U/L Normal 14-59 [facility] Comment on above: Performed By: #### C MP, CRP ####[facility] Nsbpvqlhgj756[address] [place], [place] [address]Dr. Kalie Bess Anion gap [Moles/Vol] 9.3 mmol/L Normal [facility] Comment on above: Performed By: #### C MP, CRP ####[facility] Vodnkninde7[address] [place], [place] [address]Dr. Kalie Bess AST [Catalytic activity/Vol] 17 U/L Normal 15-37 [facility] Comment on above: Performed By: #### C MP, CRP ####[facility] Nuwzmhewui249[address] [place], [place] [address]Dr. Kalie Bess Bilirubin [Mass/Vol] 0.3 mg/dL Normal 0.2-1.0 [facility] Comment on above: Performed By: #### C MP, CRP ####[facility] Qdhsmdcyqo8725 [place] [address]Dr. Kalie Bess Calcium [Mass/Vol] 8.4 mg/dL Critically low 8.5-10.1 Th [facility] Comment on above: Performed By: #### C MP, CRP ####[facility] Dmdmhqmqeq9068[address] [place], [place] [address]Dr. Kalie Bess Chloride [Moles/Vol] 104 mmol/L Normal 98-107 [facility] Comment on above: Performed By: #### C MP, CRP ####[facility] Etbcnlfric0443 [place] [address]Dr. Kalie Bess CO2 [Moles/Vol] 29.2 mmol/L Normal 21.0-32.0 [facility] Comment on above: Performed By: #### C MP, CRP ####[facility] Hkwiawrryw0154 [place] [address]Dr. Kalie Bess Creatinine [Mass/Vol] 1.12 mg/dL Critically high 0.55-1.02 [facility] Comment on above: Performed By: #### C MP, CRP ####[facility] Xpwmrjqiug3439 [place] [address]Dr. Kalie Bess EGFR-AF TAIWANESE >60 Normal >=60 [facility] Comment on above: Performed By: #### C MP, CRP ####[facility] Qsqflkxfbr3610 [place] [address]Dr. Kalie Bess EGFR-NON AF TAIWANESE 51 mL/min/1.73m2 Critically low >=60 The [facility] Comment on above: Performed By: #### C MP, CRP ####[facility] Hlggxkrsfa7668 [place] [address]Dr. Kalie Bess Globulin (S) [Mass/Vol] 4.5 g/dL Normal [facility] Comment on above: Performed By: #### C MP, CRP ####[facility] Yatyeroxeo8316 [place] [address]Dr. Kalie Bess Glucose [Mass/Vol] 85 mg/dL Normal 74-106 [facility] Comment on above: Performed By: #### C MP, CRP ####[facility] Ifofsenjsa5054 [place] [address]Dr. Kalie Bess Potassium [Moles/Vol] 3.5 mmol/L Normal 3.5-5.1 [facility] Comment on above: Performed By: #### C MP, CRP ####[facility] Ghqfvtkrbw9447 [place] [address]Dr. Kalie Bess Protein [Mass/Vol] 6.2 g/dL Critically low 6.4-8.2 Th e [facility] Comment on above: Performed By: #### C MP, CRP ####[facility] Djzanuxhdy8023 [place] [id number]. Kalie Bess Sodium [Moles/Vol] 139 mmol/L Normal 136-145 [facility] Comment on above: Performed By: #### C MP, CRP ####[facility] Rabcmcptqu8475 [place] [address]Dr. Kalie Bess Urea nitrogen [Mass/Vol] 12.0 mg/dL Normal 7.0-18.0 [facility] Comment on above: Performed By: #### C MP, CRP ####[facility] Bsdvcdhozb[address] [place], [place] [address]Dr. Kalie Bess Urea nitrogen/Creatinine [Mass ratio] 10.7 mg/mg Normal [facility] Comment on above: Performed By: #### C MP, CRP ####[facility] Hhahbhkjqs8[address] [place], [place] [address]Dr. Kalie Bess SED RATE WESTERGRENon 2022 SED RATE >130 Critically high <=30 [facility] Comment on above: Performed By: #### S EDR ####[facility] Wxqlauiuyh74[address] [place], [place] [address]Dr. Kalie Bess CBC AUTO DIFFon 11-27-2022 BASO # 0.1 103/ul Normal 0.0-0.1 [facility] Comment on above: Performed By: #### C BC ####[facility] Cfudjpylyc5953 [place] [address]Dr. Kalie Shahriar Basophils/100 WBC (Bld) 0.6 % Normal 0.2-2.0 [facility] Comment on above: Performed By: #### C BC ####[facility] Dktfvxxoqh9724 [place] [address]Dr. Kalie Shahriar EO # 0.5 103/ul Normal 0.0-0.7 [facility] Comment on above: Performed By: #### C BC ####[facility] Ofnspqjkrd0577 [place] [id number]. Kalie Bess Eosinophils/100 WBC (Bld) 2.8 % Normal 0.9-7.0 The [facility] Comment on above: Performed By: #### C BC ####[facility] Yvccjahnxe0800 [place] [id number]. Kalie Bess Erythrocyte distribution width (RBC) [Ratio] 14.1 % Normal 11.0-15.0 The [facility] Comment on above: Performed By: #### C BC ####[facility] Sxpwbtsxji9906 [place] [id number]. Kalie Bess Hematocrit (Bld) [Volume fraction] 27.3 % Critically low 36.0-48.0 [facility] Comment on above: Performed By: #### C BC ####[facility] Zkeynnmqea6693 [place] [address]Dr. Kalie Bess Hemoglobin (Bld) [Mass/Vol] 8.4 g/dL Critically low 12.0-16.0 [facility] Comment on above: Performed By: #### C BC ####[facility] Acqwlblzuu2066 [place] [address]Dr. Kalie Bess IG # 1.53 10e3/ul Critically high 0.00-0.03 [facility] Comment on above: Performed By: #### C BC ####[facility] Mmqllqlkjm7700 [place] [address]Dr. Kalie Bess IG % 8.9 % Critically high 0.0-0.5 The [facility] Comment on above: Performed By: #### C BC ####[facility] Kdthlexgwp0263 [place] [address]Dr. Kalie Bess LYMPH # 3.8 103/ul Normal 1.2-3.8 The [facility] Comment on above: Performed By: #### C BC ####[facility] Apqgtdzjbz7261 [place] [address]Dr. Kalie Bess Lymphocytes/100 WBC (Bld) 21.8 % Normal 20.5-60.0 The [facility] Comment on above: Performed By: #### C BC ####[facility] Wttwiqssna1950 [place] [address]Dr. Kalie Bess MANUAL DIFF REQ NO Normal The [facility] Comment on above: Performed By: #### C BC ####[facility] Qxwfvoehlq4800 [place] [id number]. Kalie Bess MCH (RBC) [Entitic mass] 29.2 pg Normal 26.7-34.0 The [facility] Comment on above: Performed By: #### C BC ####[facility] Sqzydgmszv[address] [place], [place] [id number]. Kalie Bess MCHC (RBC) [Mass/Vol] 30.8 g/dL Normal 29.9-35.2 The [facility] Comment on above: Performed By: #### C BC ####[facility] Qmutmzlvnk147[address] [place], [place] [address]Dr. Kalie Bess MCV (RBC) [Entitic vol] 94.8 fL Normal 81.0-99.0 [facility] Comment on above: Performed By: #### C BC ####[facility] Yauxxtdmvp349[address] [place], [place] [address]Dr. Kalie Bess MONO # 1.3 103/ul Critically high 0.3-0.8 The [facility] Comment on above: Performed By: #### C BC ####[facility] Fvbtiyynuz[address] [place], [place] [address]Dr. Kalie Bess Monocytes/100 WBC (Bld) 7.7 % Normal 1.7-12.0 The [facility] Comment on above: Performed By: #### C BC ####[facility] Gtczittsco5444 [place] [id number]. Shayyroxie Bess NEUT # 10.0 103/ul Critically high 1.4-6.5 The [facility] Comment on above: Performed By: #### C BC ####[facility] Yafdyjjxsf69[address] [place], [place] [id number]. Kalie Bess Neutrophils/100 WBC (Bld) 58.2 % Normal 43.0-75.0 The [facility] Comment on above: Performed By: #### C BC ####[facility] Fbstmmafye6547 [place] [id number]. Kalie Bess Platelet mean volume (Bld) [Entitic vol] 11.2 fL Normal 9.5-13.5 [facility] Comment on above: Performed By: #### C BC ####[facility] Upbhxwivro2813 [place] [id number]. Kalie Bess PLT 278 103/ul Normal 150-450 [facility] Comment on above: Performed By: #### C BC ####[facility] Mztsmlrpbv1494 [place] [address]Dr. Kalie Bess RBC 2.88 106/ul Critically low 4.20-5.40 [facility] Comment on above: Performed By: #### C BC ####[facility] Vvlcsjrduu0596 [place] [address]Dr. Kalie Bess WBC 17.2 103/ul Critically high 4.0-11.0 [facility] Comment on above: Performed By: #### C BC ####[facility] Ycjcbjggvh5[address] [place], [place] [address]Dr. Kalie Bess CRPon 11-27-2022 CRP 5.4 mg/dL Critically high <=1.0 [facility] Comment on above: Performed By: #### C RP, CMP ####[facility] Ayocpfpvuh[address] [place], [place] [address]Dr. Kalie Bess POINT OF CARE GLUCOSEon -0 Glucose [Mass/Vol] 379 mg/dL Critically high 74-106 [facility] Comment on above: Performed By: #### P OCGLUC ####[facility] Wmzmwbpwuo3685 [place] [address]Dr. Kalie Bess Glucose [Mass/Vol] 232 mg/dL Critically high 74-106 [facility] Comment on above: Performed By: #### P OCGLUC ####[facility] Tgwteiklvg6945 [place] [address]Dr. Kalie Bess Glucose [Mass/Vol] 216 mg/dL Critically high -106 [facility] Comment on above: Performed By: #### P OCGLUC ####[facility] Rooywvnaod6976 [place] [address]Dr. Kalie Bess Glucose [Mass/Vol] 249 mg/dL Critically high 74-106 [facility] [facility] Comment on above: Performed By: #### P OCGLUC ####[facility] [place] Hxypmomsro[address] [place] [address]Dr. Kalie Bess PROF 14(COMP METB)on 023 Albumin [Mass/Vol] 1.6 g/dL Critically low 3.4-5.0 Th [facility] Comment on above: Performed By: #### C RP, CMP ####[facility] [place] Vnhusztqlp23[address] [place] [address]Dr. Kalie Bess Albumin/Globulin [Mass ratio] 0.3 {ratio} Normal [facility] Comment on above: Performed By: #### C RP, CMP ####[facility] [place] Ivhjdvwucq[address] [place], [place] [address]Dr. Kalie Bess ALP [Catalytic activity/Vol] 147 U/L Critically high 46-116 [facility] Comment on above: Performed By: #### C RP, CMP ####[facility] [place] Pbcsgxcflc35[address] [place] [address]Dr. Kalie Bess ALT [Catalytic activity/Vol] 25 U/L Normal 14-59 [facility] Comment on above: Performed By: #### C RP, CMP ####[facility] [place] Woapfwfxxt[address] [place] [address]Dr. Kalie Bess Anion gap [Moles/Vol] 9.9 mmol/L Normal [facility] Comment on above: Performed By: #### C RP, CMP ####[facility] [place] Igaaekwwev[address] [place] [address]Dr. Kalie Bess AST [Catalytic activity/Vol] 16 U/L Normal 15-37 [facility] Comment on above: Performed By: #### C RP, CMP ####[facility] [place] Enwgtyqkxb0[address] [place] [address]Dr. Kalie Bess Bilirubin [Mass/Vol] 0.1 mg/dL Critically low 0.2-1.0 [facility] Comment on above: Performed By: #### C RP, CMP ####[facility] [place] Vsjpinxkjw[address] [place], [place] [address]Dr. Kalie Bess Calcium [Mass/Vol] 8.2 mg/dL Critically low 8.5-10.1 Th [facility] Comment on above: Performed By: #### C RP, CMP ####[facility] [place] Qecamhojht[address] [place], [place] [address]Dr. Kalie Bess Chloride [Moles/Vol] 101 mmol/L Normal 98-107 [facility] Comment on above: Performed By: #### C RP, CMP ####[facility] [place] Uduwjnvkph[address] [place], [place] [address]Dr. Kalie Bess CO2 [Moles/Vol] 27.1 mmol/L Normal 21.0-32.0 [facility] Comment on above: Performed By: #### C RP, CMP ####[facility] [place] Wrhnfvkcep[address] [place], [place] [address]Dr. Kalie Bess Creatinine [Mass/Vol] 1.16 mg/dL Critically high 0.55-1.02 [facility] Comment on above: Performed By: #### C RP, CMP ####[facility] [place] Czeojdpbbh[address] [place], [place] [address]Dr. Kalie Bess EGFR-AF TAIWANESE 60 mL/min/1.73m2 Normal >=60 Th [facility] Comment on above: Performed By: #### C RP, CMP ####[facility] [place] Vbjekqsoyw[address] [place], [place] [address]Dr. Kalie Bess EGFR-NON AF TAIWANESE 49 mL/min/1.73m2 Critically low >=60 [facility] Comment on above: Performed By: #### C RP, CMP ####[facility] [place] Sdvbbpkslm[address] [place], [place] [address]Dr. Kalie Bess Globulin (S) [Mass/Vol] 4.7 g/dL Normal [facility] Comment on above: Performed By: #### C RP, CMP ####[facility] [place] Yhspifzdfx[address] [place], [place] [address]Dr. Kalie Bess Glucose [Mass/Vol] 281 mg/dL Critically high 74-106 T [facility] Comment on above: Performed By: #### C RP, CMP ####[facility] [place] Tkfjaobvtc3[address] [place] [address]Dr. Kalie Bess Potassium [Moles/Vol] 4.0 mmol/L Normal 3.5-5.1 [facility] Comment on above: Performed By: #### C RP, CMP ####[facility] [place] Vjyzzwckcu[address] [place] [address]Dr. Kalie Bess Protein [Mass/Vol] 6.3 g/dL Critically low 6.4-8.2 Th [facility] Comment on above: Performed By: #### C RP, CMP ####[facility] [place] Amuvyqryvg8[address] [place] [address]Dr. Kalie Bess Sodium [Moles/Vol] 134 mmol/L Critically low 136-145 Th [facility] Comment on above: Performed By: #### C RP, CMP ####[facility] [place] Oaxebravfd64[address] [place] [address]Dr. Kalie Bess Urea nitrogen [Mass/Vol] 13.0 mg/dL Normal 7.0-18.0 [facility] Comment on above: Performed By: #### C RP, CMP ####[facility] [place] Ebxundnytq4[address] [place] [address]Dr. Kalie Bess Urea nitrogen/Creatinine [Mass ratio] 11.2 mg/mg Normal [facility] Comment on above: Performed By: #### C RP, CMP ####[facility] [place] Bbbtwoluzw[address] [place] [address]Dr. Kalie Bess SED RATE WESTERGRENon 2022 SED RATE >130 Critically high <=30 [facility] Comment on above: Performed By: #### S EDR ####[facility] [place] Kjkglapgpj80[address] [place] [address]Dr. Kalie Bess US BREAST LEFT LIMITEDon US BREAST LEFT LIMITED Normal [facility] CBC W MANUAL DIFFon 11-26-19 23 ATYPICAL LYMPH # Normal [facility] Comment on above: Performed By: #### C NANCY ####[facility] [place] Paxuvqgqbv[address] [place] [id number]. Shayylan Bess ATYPICAL LYMPH % Normal [facility] Comment on above: Performed By: #### C ANNCY ####[facility] [place] Ajbsvomgkq41[address] [place] [address]Dr. Yilan Bess BAND # 0.2 103/ul Normal 0.0-0.3 The [facility] [place] Comment on above: Performed By: #### C NANCY ####[facility] [place] Xhiyfggeel[address] [place] [id number]. Yilan Bess BAND % 1 % Normal 0-5 The [facility] [place] Comment on above: Performed By: #### C NANCY ####[facility] [place] Fxnfrmhkid[address] [place] [address]Dr. Kalie Bess BASOM # 0.00 103/ul Normal 0.00-0.10 The [facility] [place] Comment on above: Performed By: #### C NANCY ####[facility] [place] Ezrwjpibkq[address] [place] [address]Dr. Kalie Bess BASOM % 0.0 % Critically low 0.2-2.0 The [facility] Comment on above: Performed By: #### C NANCY ####[facility] [place] Bpqvpfkxru58[address] [place] [address]Dr. Yiroxie Bess BLAST # Normal The [facility] Comment on above: Performed By: #### C NANCY ####[facility] [place] Gselojynul25[address] [place] [address]Dr. Yilan Bess BLAST % Normal The [facility] Comment on above: Performed By: #### C NANCY ####[facility] [place] Yrnxrznqcr[address] [place] [address]Dr. Kalie Bess CORRECTED WBC Normal 4.0-11.0 The [facility] Comment on above: Performed By: #### C NANCY ####[facility] [place] Denbrfqndb5[address] [place] [address]Dr. Yilan Bess EOS # 0.17 103/ul Normal 0.00-0.70 The [facility] [place] Comment on above: Performed By: #### Marisela CRUZ ####[facility] [place] [address]rmoziko[address] [place], [place] [address]Qs. Kalie Bess EOS% 1.0 % Normal 0.9-7.0 The [facility] [place] Comment on above: Performed By: #### Marisela CRUZ ####[facility] [place] Xmvrikkycg9868 [place], [place] [address]Rt. Kalie Bess HCT 29.0 % Critically low 36.0-48.0 The [facility] Comment on above: Performed By: #### Marisela CRUZ ####[facility] [place] Simfmcjwvh01[address] [place], [place] [address]Xe. Kalie Bess HGB 8.9 g/dl Critically low 12.0-16.0 The [facility] Comment on above: Performed By: #### Marisela CRUZ ####[facility] [place] Mrunfbeymx5[address] [place], [place] [address]Ti. Kalie Bess LYMPHM # 1.74 103/ul Normal 1.20-3.80 The [facility] [place] Comment on above: Performed By: #### Marisela CRUZ ####[facility] [place] Qhodskzoub3[address] [place], [place] [address]Fz. Kalie Bess LYMPHM% 10.0 % Critically low 20.5-60.0 The [facility] Comment on above: Performed By: #### Marisela CRUZ ####[facility] [place] Wthcyahzdh64[address] [place], [place] [address]Fa. Kalie Bess MCH 28.3 pg Normal 26.7-34.0 The [facility] [place] Comment on above: Performed By: #### Marisela CRUZ ####[facility] [place] Lklzohvukw85[address] [place], [place] [address]Up. Kalie Bess MCHC 30.7 g/dl Normal 29.9-35.2 The [facility] [place] Comment on above: Performed By: #### Marisela CRUZ ####[facility] [place] Lvuqoogsan4048 [place], [place] [address]Im. Kalie Bess MCV 92.1 fL Normal 81.0-99.0 The [facility] [place] Comment on above: Performed By: #### Marisela CRUZ ####[facility] [place] Qbimwrgtoc5699 [place] [id number]. Kalie Bess METAMYELOCYTE # Normal The [facility] Comment on above: Performed By: #### C NANCY ####[facility] [place] Ebouiyfdzv9[address] [place] [address]Dr. Kalie Bess METAMYELOCYTE % Normal The [facility] Comment on above: Performed By: #### C NANCY ####[facility] [place] Rwzncwmdxe8496 [place] [address]Dr. Kalie Bess MONOM# 0.87 103/ul Critically high 0.30-0.80 The [facility] Comment on above: Performed By: #### C NANCY ####[facility] [place] Qgysjizzvb28[address] [place] [address]Dr. Kalie Bess MONOM% 5.0 % Normal 1.7-12.0 The [facility] [place] Comment on above: Performed By: #### C NANCY ####[facility] [place] Uikxzonkkz6[address] [place] [address]Dr. Kalie Bess MPV 11.5 fL Normal 9.5-13.5 [facility] Comment on above: Performed By: #### C NANCY ####[facility] [place] Heylwts[address] [place], [place] [address]Dr. Kalie Bess MYELOCYTE # 0.3 103/ul Normal The [facility] [place] Comment on above: Performed By: #### C NANCY ####[facility] [place] Iuajfaszyb4756 [place] [address]Dr. Kalie Bess MYELOCYTE % 2 % Normal The [facility] [place] Comment on above: Performed By: #### C NANCY ####[facility] [place] Hwhfeorgiq3442 [place] [address]Dr. Kalie Bess NRBC Normal The [facility] [place] Comment on above: Performed By: #### C NANCY ####[facility] [place] Tklgzggoqt1830 [place] [address]Dr. Kalie Bess PLT 275 103/ul Normal 150-450 The [facility] [place] Comment on above: Performed By: #### C NANCY ####[facility] [place] Ibljywnray4857 [place] [address]Dr. Kalie Bess RBC 3.15 106/ul Critically low 4.20-5.40 The [facility] Comment on above: Performed By: #### C NANCY ####[facility] [place] Zcmcyoscwr7467 [place] [address]Dr. Kalie Bses RDW 14.4 % Normal 11.0-15.0 The [facility] [place] Comment on above: Performed By: #### C NANCY ####[facility] [place] Eegqjeeglh7536 [place] [address]Dr. Kalie Bess SEG # 14.09 103/ul Critically high 1.40-6.50 The [facility] Comment on above: Performed By: #### C NANCY ####[facility] [place] Pvpnnwnqbp8421 [place] [address]Dr. Kalie Bess SEG % 81.0 % Critically high 43.0-75.0 The [facility] Comment on above: Performed By: #### C NANCY ####[facility] [place] Idruuuizcc8193 [place] [address]Dr. Kalie Bess WBC 17.4 103/ul Critically high 4.0-11.0 The [facility] Comment on above: Performed By: #### C NANCY ####[facility] [place] Arybfwzsmm7389 [place] [address]Dr. Kalie Bess CRPon 11-26-2022 CRP 7.9 mg/dL Critically high <=1.0 The [facility] Comment on above: Performed By: #### C RP, CMP ####[facility] [place] Ykihcgfisi9275 [place] [address]Dr. Kalie Bess POINT OF CARE GLUCOSEon 02-0 Glucose [Mass/Vol] 348 mg/dL Critically high 74-106 [facility] Comment on above: Performed By: #### P OCGLUC ####[facility] Lstjxuiogv6451 [place] [address]Dr. Kalie Bess Glucose [Mass/Vol] 355 mg/dL Critically high 74-106 [facility] Comment on above: Performed By: #### P OCGLUC ####[facility] [place] Rmlpqlsbbl1090 [place] [address]Dr. Kalie Bess Glucose [Mass/Vol] 421 mg/dL Critically high 74-106 [facility] Comment on above: Performed By: #### P OCGLUC ####[facility] [place] Yeecjyying15[address] [place] [address]Dr. Kalie Bess PROF 14(COMP METB)on 023 Albumin [Mass/Vol] 1.6 g/dL Critically low 3.4-5.0 Th [facility] Comment on above: Performed By: #### C RP, CMP ####[facility] [place] Ttwxdymfwv3399 [place] [address]Dr. Kalie Bess Albumin/Globulin [Mass ratio] 0.3 {ratio} Normal [facility] Comment on above: Performed By: #### C RP, CMP ####[facility] [place] Alqiykysps28[address] [place] [address]Dr. Kalie Bess ALP [Catalytic activity/Vol] 176 U/L Critically high 46-116 [facility] Comment on above: Performed By: #### C RP, CMP ####[facility] [place] Vykkpqhdbj8528 [place] [address]Dr. Kalie Bess ALT [Catalytic activity/Vol] 32 U/L Normal 14-59 [facility] Comment on above: Performed By: #### C RP, CMP ####[facility] [place] Nwvqdmghhd3485 [place] [address]Dr. Kalie Bess Anion gap [Moles/Vol] 11.2 mmol/L Normal [facility] Comment on above: Performed By: #### C RP, CMP ####[facility] [place] Hjzvimpzbo7887 [place] [address]Dr. Kalie Bess AST [Catalytic activity/Vol] 18 U/L Normal 15-37 [facility] Comment on above: Performed By: #### C RP, CMP ####[facility] [place] Zonrgvchzu8287 [place] [address]Dr. Kalie Bess Bilirubin [Mass/Vol] 0.2 mg/dL Normal 0.2-1.0 [facility] Comment on above: Performed By: #### C RP, CMP ####[facility] [place] Ajixuhhbjy5661 [place] [id number]. Kalie Bess Calcium [Mass/Vol] 8.5 mg/dL Normal 8.5-10.1 [facility] Comment on above: Performed By: #### C RP, CMP ####[facility] [place] Iegrogndis7958 [place] [address]Dr. Kalie Bess Chloride [Moles/Vol] 102 mmol/L Normal 98-107 The [facility] Comment on above: Performed By: #### C RP, CMP ####[facility] [place] Ofipvjelae7171 [place] [address]Dr. Kalie Bess CO2 [Moles/Vol] 27.7 mmol/L Normal 21.0-32.0 [facility] Comment on above: Performed By: #### C RP, CMP ####[facility] [place] R[address]dgyvfck[address] [place], [place] [address]Dr. Kalie Bess Creatinine [Mass/Vol] 1.24 mg/dL Critically high 0.55-1.02 [facility] Comment on above: Performed By: #### C RP, CMP ####[facility] [place] Ssqjsoecwo[address] [place], [place] [address]Dr. Kalie Bess EGFR-AF TAIWANESE 55 mL/min/1.73m2 Critically low >=60 [facility] Comment on above: Performed By: #### C RP, CMP ####[facility] [place] Nwcfhzzrsf[address] [place], [place] [address]Dr. Kalie Bess EGFR-NON AF TAIWANESE 46 mL/min/1.73m2 Critically low >=60 The [facility] [place] Comment on above: Performed By: #### C RP, CMP ####[facility] [place] Htaujajjnp1399 [place] [address]Dr. Kalie Bess Globulin (S) [Mass/Vol] 4.6 g/dL Normal [facility] Comment on above: Performed By: #### C RP, CMP ####[facility] [place] Rmfzkuotzh[address] [place], [place] [address]Dr. Kalie Bess Glucose [Mass/Vol] 279 mg/dL Critically high 74-106 [facility] Comment on above: Performed By: #### C RP, CMP ####[facility] [place] Xkcegcbbmo4264 [place] [address]Dr. Kalie Bess Potassium [Moles/Vol] 3.9 mmol/L Normal 3.5-5.1 [facility] Comment on above: Performed By: #### C RP, CMP ####[facility] [place] Iwauggxxrs[address] [place], [place] [address]Dr. Shayyroxie Shahriar Protein [Mass/Vol] 6.2 g/dL Critically low 6.4-8.2 Th [facility] Comment on above: Performed By: #### C RP, CMP ####[facility] [place] Vskexbacgf74[address] [place], [place] [address]Dr. Shayyroxie Shahriar Sodium [Moles/Vol] 137 mmol/L Normal 136-145 [facility] Comment on above: Performed By: #### C RP, CMP ####[facility] [place] Tyqmkgepxo60[address] [place], [place] [address]Dr. Kalie Bess Urea nitrogen [Mass/Vol] 16.0 mg/dL Normal 7.0-18.0 [facility] Comment on above: Performed By: #### C RP, CMP ####[facility] [place] Sgrznwurpu[address] [place], [place] [address]Dr. Shayyroxie Shahriar Urea nitrogen/Creatinine [Mass ratio] 12.9 mg/mg Normal [facility] Comment on above: Performed By: #### C RP, CMP ####[facility] [place] Anzuwcewwj7[address] [place], [place] [address]Dr. Shayyroxie Shahriar SED RATE WESTERGRENon 2022 SED RATE 126 mm/hr Critically high <=30 The [facility] Comment on above: Performed By: #### S EDR ####[facility] [place] Gmjjjhmgpy[address] [place], [place] [address]Dr. Shayyroxie Shahriar CBC AUTO DIFFon 11-25-2022 BASO # 0.1 103/ul Normal 0.0-0.1 [facility] Comment on above: Performed By: #### C BC ####[facility] Lyelpnxomn7760 [place] [id number]. Kalie Bess Basophils/100 WBC (Bld) 0.6 % Normal 0.2-2.0 The [facility] [place] Comment on above: Performed By: #### C BC ####[facility] Guvcenpbwp5691 [place] [id number]. Kalie Bess EO # 0.6 103/ul Normal 0.0-0.7 The [facility] [place] Comment on above: Performed By: #### C BC ####[facility] [place] Ugpwzwohtp5032 [place] [address]Dr. Kalie Bess Eosinophils/100 WBC (Bld) 4.0 % Normal 0.9-7.0 The [facility] Comment on above: Performed By: #### C BC ####[facility] Oxltdhccfl6119 [place] [address]Dr. Kalie Bess Erythrocyte distribution width (RBC) [Ratio] 14.4 % Normal 11.0-15.0 The [facility] [place] Comment on above: Performed By: #### C BC ####[facility] [place] Oxrellirdm6591 [place] [address]Dr. Kalie Bess Hematocrit (Bld) [Volume fraction] 25.9 % Critically low 36.0-48.0 [facility] Comment on above: Performed By: #### C BC ####[facility] Rlfsbwrpxj0218 [place] [address]Dr. Kalie Bess Hemoglobin (Bld) [Mass/Vol] 8.5 g/dL Critically low 12.0-16.0 The [facility] Comment on above: Performed By: #### C BC ####[facility] Draofhoswf8993 [place] [address]Dr. Kalie Bess IG # 1.05 10e3/ul Critically high 0.00-0.03 [facility] Comment on above: Performed By: #### C BC ####[facility] Vpfvznslhk5541 [place] [address]248[address]Dr. Kalie Bess IG % 6.7 % Critically high 0.0-0.5 The [facility] Comment on above: Performed By: #### C BC ####[facility] Hmvpyqagzu8416 [place] [address]Dr. Shayyroxie Shahriar LYMPH # 3.2 103/ul Normal 1.2-3.8 The [facility] Comment on above: Performed By: #### C BC ####[facility] Dkemafqbkc9736 [place] [address]Dr. Shayyroxie Bess Lymphocytes/100 WBC (Bld) 20.3 % Critically low 20.5-60.0 The [facility] Comment on above: Performed By: #### C BC ####[facility] Nqaggrgavk3276 [place] [address]Dr. Kalie Bess MANUAL DIFF REQ YES Normal [facility] Comment on above: Result Comment: Prev iously reported as: NO On 11/25/2022 06:37 By KD3 Performed By: #### C BC ####[facility] Klvrsplzas[address] [place], [place] [address]Dr. Kalie Bess MCH (RBC) [Entitic mass] 29.0 pg Normal 26.7-34.0 [facility] [facility] Comment on above: Performed By: #### C BC ####[facility] Iskqmflxt[address] [place], [place] [address]Dr. Kalie Bess MCHC (RBC) [Mass/Vol] 32.8 g/dL Normal 29.9-35.2 [facility] Comment on above: Performed By: #### C BC ####[facility] Wzyycubtpj[address] [place], [place] [address]Dr. Kalie Bess MCV (RBC) [Entitic vol] 88.4 fL Normal 81.0-99.0 The [facility] Comment on above: Performed By: #### C BC ####[facility] Ptejuqhwz[address] [place], [place] [address]Dr. Kalie Bess MONO # 1.3 103/ul Critically high 0.3-0.8 [facility] Comment on above: Performed By: #### C BC ####[facility] Hiiwtpdwaw[address] [place], [place] [address]Dr. Kalie Bess Monocytes/100 WBC (Bld) 8.5 % Normal 1.7-12.0 The [facility] Comment on above: Performed By: #### C BC ####[facility] Ggsxszomzw4[address] [place] [id number]. Kalie Bess NEUT # 9.4 103/ul Critically high 1.4-6.5 The [facility] Comment on above: Performed By: #### C BC ####[facility] Yuvwkembje9087 [place] [id number]. Kalie Bess Neutrophils/100 WBC (Bld) 59.9 % Normal 43.0-75.0 The [facility] Comment on above: Performed By: #### C BC ####[facility] Jjnplvhfsr6[address] [place] [address]Dr. Kalie Bess Platelet mean volume (Bld) [Entitic vol] 11.7 fL Normal 9.5-13.5 The [facility] Comment on above: Performed By: #### C BC ####[facility] Lycgpxstni3016 [place] [id number]. Kalie Bess PLT 243 103/ul Normal 150-450 The [facility] Comment on above: Performed By: #### C BC ####[facility] Dgyiqxqraz8915 [place] [address]Dr. Kalie Bess RBC 2.93 106/ul Critically low 4.20-5.40 The [facility] Comment on above: Performed By: #### C BC ####[facility] Yyeakihgdn2200 [place] [address]Dr. Kalie Bess WBC 15.6 103/ul Critically high 4.0-11.0 The [facility] Comment on above: Performed By: #### C BC ####[facility] Dckoijoxaa7947 [place] [address]Dr. Kalie Bess CRPon 11-25-2022 CRP 11.0 mg/dL Critically high <=1.0 The [facility] Comment on above: Performed By: #### C MP, CRP ####[facility] Scfeowmjrd4889 [place] [id number]. Kalie Bess POINT OF CARE GLUCOSEon 10-28 Glucose [Mass/Vol] 187 mg/dL Critically high 74-106 [facility] Comment on above: Performed By: #### P OCGLUC ####[facility] Fqxsovibbz7939 [place] [address]Dr. Kalie Bess Glucose [Mass/Vol] 196 mg/dL Critically high 74-106 [facility] Comment on above: Performed By: #### P OCGLUC ####[facility] Bkmgvtruzz7032 [place] [address]Dr. Kalie Bess Glucose [Mass/Vol] 234 mg/dL Critically high 74-106 [facility] Comment on above: Performed By: #### P OCGLUC ####[facility] Lsugzqxvug[address] [place], [place] [address]Dr. Kalie Bess Glucose [Mass/Vol] 155 mg/dL Critically high 74-106 [facility] Comment on above: Performed By: #### P OCGLUC ####[facility] Tncvpbhwyp[address] [place], [place] [address]Dr. Shayyroxie Bess PROF 14(COMP METB)on 023 Albumin [Mass/Vol] 1.6 g/dL Critically low 3.4-5.0 Th [facility] Comment on above: Performed By: #### C MP, CRP ####[facility] Wakokpvwak74[address] [place] [address]Dr. Kalie Shahriar Albumin/Globulin [Mass ratio] 0.4 {ratio} Normal [facility] Comment on above: Performed By: #### C MP, CRP ####[facility] Nvtxdcqrws4321 [place] [address]Dr. Kalie Shahriar ALP [Catalytic activity/Vol] 178 U/L Critically high 46-116 [facility] Comment on above: Performed By: #### C MP, CRP ####[facility] Rkjvutdvnk4467 [place] [address]Dr. Kalei Shahriar ALT [Catalytic activity/Vol] 40 U/L Normal 14-59 [facility] Comment on above: Performed By: #### C MP, CRP ####[facility] Orqtu[address] [place], [place] [id number]. Kalie Bess Anion gap [Moles/Vol] 10.6 mmol/L Normal [facility] Comment on above: Performed By: #### C MP, CRP ####[facility] Hinoemkayn7776 [place] [address]Dr. Kalie Bess AST [Catalytic activity/Vol] 19 U/L Normal 15-37 The [facility] Comment on above: Performed By: #### C MP, CRP ####[facility] Klbktfjuje4705 [place] [address]Dr. Kalie Bess Bilirubin [Mass/Vol] 0.2 mg/dL Normal 0.2-1.0 The [facility] Comment on above: Performed By: #### C MP, CRP ####[facility] Mbihghxxty[address] [place], [place] [address]Dr. Kalie Bess Calcium [Mass/Vol] 8.7 mg/dL Normal 8.5-10.1 [facility] Comment on above: Performed By: #### C MP, CRP ####[facility] Zxdcmazjnw[address] [place], [place] [address]Dr. Kalie Bess Chloride [Moles/Vol] 103 mmol/L Normal 98-107 The [facility] Comment on above: Performed By: #### C MP, CRP ####[facility] Wchdykiquw[address] [place], [place] [address]Dr. Kalie Bess CO2 [Moles/Vol] 29.3 mmol/L Normal 21.0-32.0 The [facility] Comment on above: Performed By: #### C MP, CRP ####[facility] Aveglfewtv4702 [place] [address]Dr. Kalie Bess Creatinine [Mass/Vol] 1.35 mg/dL Critically high 0.55-1.02 The [facility] Comment on above: Performed By: #### C MP, CRP ####[facility] Azeljemwap50[address] [place] [address]Dr. Kalie Bess EGFR-AF TAIWANESE 50 mL/min/1.73m2 Critically low >=60 The [facility] Comment on above: Performed By: #### C MP, CRP ####[facility] Jpgjjaguad[address] [place] [id number]. Kalie Bess EGFR-NON AF TAIWANESE 41 mL/min/1.73m2 Critically low >=60 [facility] Comment on above: Performed By: #### C MP, CRP ####[facility] Nuagzdbssj7154 [place] [id number]. Kalie Bess Globulin (S) [Mass/Vol] 4.4 g/dL Normal [facility] Comment on above: Performed By: #### C MP, CRP ####[facility] Bezcysncyd78[address] [place] [address]Dr. Kalie Bess Glucose [Mass/Vol] 170 mg/dL Critically high 74-106 T [facility] Comment on above: Performed By: #### C MP, CRP ####[facility] Ptvrtlgkyv2057 [place] [address]Dr. Kalie Bess Potassium [Moles/Vol] 3.9 mmol/L Normal 3.5-5.1 [facility] Comment on above: Performed By: #### C MP, CRP ####[facility] Ofemdhhnqw4732 [place] [address]Dr. Kalie Bess Protein [Mass/Vol] 6.0 g/dL Critically low 6.4-8.2 Th [facility] Comment on above: Performed By: #### C MP, CRP ####[facility] Ynlydlnbpe[address] [place] [address]Dr. Kalie Bess Sodium [Moles/Vol] 139 mmol/L Normal 136-145 [facility] Comment on above: Performed By: #### C MP, CRP ####[facility] Xolmxbbahc2167 [place] [address]Dr. Kalie Bess Urea nitrogen [Mass/Vol] 18.0 mg/dL Normal 7.0-18.0 [facility] Comment on above: Performed By: #### C MP, CRP ####[facility] Evwqdkihxw9432 [place] [address]Dr. Kalie Bess Urea nitrogen/Creatinine [Mass ratio] 13.3 mg/mg Normal [facility] Comment on above: Performed By: #### C MP, CRP ####[facility] Hdojsldadu5523 [place] [id number]. Kalie Bess SED RATE WESTERGRENon 2022 SED RATE 130 mm/hr Critically high <=30 [facility] Comment on above: Performed By: #### S EDR ####[facility] Ufavosuypr2214 [place] [address]Dr. Kalie Bess CBC W MANUAL DIFFon 11-24-19 23 ATYPICAL LYMPH # 0.16 103/ul Normal [facility] Comment on above: Performed By: #### C BCMAN ####[facility] Soqodfkcdx4[address] [place] [address]Dr. Kalie Bess ATYPICAL LYMPH % 1 % Normal [facility] Comment on above: Performed By: #### C BCMAN ####[facility] Jmrmvbafhj2498 [place] [address]Dr. Kalie Bess BAND # 0.3 103/ul Normal 0.0-0.3 [facility] Comment on above: Performed By: #### C BCMAN ####[facility] Eefvkxcirh9388 [place] [address]Dr. Kalie Bess BAND % 2 % Normal 0-5 [facility] Comment on above: Performed By: #### C BCMAN ####[facility] Soqbhhpfvo8707 [place] [address]Dr. Kalie Bess BASOM # 0.00 103/ul Normal 0.00-0.10 The [facility] Comment on above: Performed By: #### C BCMAN ####[facility] Ervzzqlnwz6374 [place] [address]Dr. Kalie Bess BASOM % 0.0 % Critically low 0.2-2.0 The [facility] Comment on above: Performed By: #### C BCMAN ####[facility] Ajqmnamyuv8757 [place] [address]Dr. Kalie Bess BLAST # Normal [facility] Comment on above: Performed By: #### C BCMAN ####[facility] Tvvuv[address] [place], [place] [id number]. Kalie Bess BLAST % Normal The [facility] Comment on above: Performed By: #### C BCMAN ####[facility] Gyaqcojanm1746 [place] [id number]. Kalie Bess CORRECTED WBC Normal 4.0-11.0 [facility] Comment on above: Performed By: #### C BCMAN ####[facility] Ewkkhsuaoo5[address] [place], [place] [address]Ep. Kalie Bess EOS # 1.42 103/ul Critically high 0.00-0.70 [facility] Comment on above: Performed By: #### C BCGABRIELLA ####[facility] Ajlihsdcfu1702 [place] [address]Dr. Kalie Bess EOS% 9.0 % Critically high 0.9-7.0 The [facility] Comment on above: Performed By: #### C BCGABRIELLA ####[facility] Opwxjhpemx7798 [place] [address]Dr. Kalie Bess HCT 27.8 % Critically low 36.0-48.0 The [facility] Comment on above: Performed By: #### C BCGABRIELLA ####[facility] Klihvywmjv3212 [place] [address]Dr. Kalie Bess HGB 9.6 g/dl Critically low 12.0-16.0 The [facility] Comment on above: Performed By: #### C BCGABRIELLA ####[facility] Kyvntmhsut2063 [place] [address]Dr. Kalie Bess LYMPHM # 2.69 103/ul Normal 1.20-3.80 The [facility] Comment on above: Performed By: #### C BCMAN ####[facility] Sruhyemiem3799 [place] [address]Dr. Kalie Bess LYMPHM% 17.0 % Critically low 20.5-60.0 The [facility] Comment on above: Performed By: #### C BCMAN ####[facility] Hvdkvamowi4365 [place] [address]Dr. Kalie Bess MCH 29.1 pg Normal 26.7-34.0 The [facility] Comment on above: Performed By: #### C NANCY ####[facility] Catdwqrdvi8747 [place] [address]Dr. Kalie Bess MCHC 34.5 g/dl Normal 29.9-35.2 The [facility] Comment on above: Performed By: #### C NANCY ####[facility] Ebvokyejbz4547 [place] [address]Dr. Kalie Bess MCV 84.2 fL Normal 81.0-99.0 The [facility] Comment on above: Performed By: #### C NANCY ####[facility] Avqergthbr9799 [place] [address]Dr. Kalie Bess METAMYELOCYTE # 0.0 103/ul Normal The [facility] Comment on above: Performed By: #### C NANCY ####[facility] Xsiwjlifey1840 [place] [address]Dr. Kalie Bess METAMYELOCYTE % 0 % Normal The [facility] Comment on above: Performed By: #### C NANCY ####[facility] Arutucrkqh9183 [place] [address]Dr. Kalie Bess MONOM# 0.47 103/ul Normal 0.30-0.80 The [facility] Comment on above: Performed By: #### C NANCY ####[facility] Syooyjtdcg0923 [place] [address]Dr. Kalie Bess MONOM% 3.0 % Normal 1.7-12.0 The [facility] Comment on above: Performed By: #### C NANCY ####[facility] Jaqteajzmb0122 [place] [address]Dr. Kalie Bess MPV 11.5 fL Normal 9.5-13.5 The [facility] Comment on above: Performed By: #### C NANCY ####[facility] Frzssjczff2963 [place] [address]Dr. Kalie Bess MYELOCYTE # Normal The [facility] Comment on above: Performed By: #### C NANCY ####[facility] [address]xbjdnd[address] [place], [place] [address]Dr. Yilan Bess MYELOCYTE % Normal The [facility] Comment on above: Performed By: #### C BCMAN ####[facility] Pgerjeiexj2042 [place], [place] [address]Da. Kalie Bess NRBC Normal The [facility] Comment on above: Performed By: #### C NANCY ####[facility] Iqyapeqkfd2820 [place], [place] [address]Dv. Kalie Bess PLT 220 103/ul Normal 150-450 The [facility] Comment on above: Performed By: #### C NANCY ####[facility] Hpiljrkbsn8898 [place], [place] [address]Ub. Kalie Bess RBC 3.30 106/ul Critically low 4.20-5.40 The [facility] Comment on above: Performed By: #### C NANCY ####[facility] Vzjpaseuih1451 [place] [address]Dr. Kalie Bess RDW 14.2 % Normal 11.0-15.0 The [facility] Comment on above: Performed By: #### C NANCY ####[facility] Ayxcrhmgoj0681 [place], [place] [address]Us. Kalie Bess SEG # 10.74 103/ul Critically high 1.40-6.50 [facility] Comment on above: Performed By: #### C MEIRMAN ####[facility] Nqgqqybemn0557 [place], [place] [address]Jj. Kalie Bess SEG % 68.0 % Normal 43.0-75.0 The [facility] Comment on above: Performed By: #### C BCMAN ####[facility] [address]ur[address] [place] [address]. Kalie Bess WBC 15.8 103/ul Critically high 4.0-11.0 The [facility] Comment on above: Performed By: #### C BCMAN ####[facility] Hajdediqkx[address] [place], [place] [id number]. Kalie Bess CRPon 11-24-2022 CRP 18.2 mg/dL Critically high <=1.0 The [facility] Comment on above: Performed By: #### C MP, CRP ####[facility] Leiwywoalc8600 [place] [id number]. Kalie Bess POINT OF CARE GLUCOSEon 10-28 Glucose [Mass/Vol] 277 mg/dL Critically high 74-106 [facility] Comment on above: Performed By: #### P OCGLUC ####[facility] Gaybsaagel3708 [place] [id number]. Kalie Bess Glucose [Mass/Vol] 268 mg/dL Critically high 74-106 [facility] Comment on above: Performed By: #### P OCGLUC ####[facility] Lfmbzpufcg0979 [place] [address]Dr. Shayyroxie Shahriar Glucose [Mass/Vol] 337 mg/dL Critically high 74-106 [facility] Comment on above: Performed By: #### P OCGLUC ####[facility] Zmppmrnfjm9372 [place] [address]Dr. Kalie Bess Glucose [Mass/Vol] 366 mg/dL Critically high 74-106 [facility] Comment on above: Performed By: #### P OCGLUC ####[facility] Nrusvjlwin7028 [place] [address]Dr. Kalie Bess PROF 14(COMP METB)on 023 Albumin [Mass/Vol] 1.8 g/dL Critically low 3.4-5.0 Th [facility] Comment on above: Performed By: #### C MP, CRP ####[facility] Mzpfkfziab4010 [place] [address]Dr. Kalie Bess Albumin/Globulin [Mass ratio] 0.4 {ratio} Normal [facility] Comment on above: Performed By: #### C MP, CRP ####[facility] Nzgebmeqtn2490 [place] [address]Dr. Kalie Bess ALP [Catalytic activity/Vol] 235 U/L Critically high 46-116 [facility] Comment on above: Performed By: #### C MP, CRP ####[facility] Fhficxbyao9965 [place] [id number]. Kalie Bess ALT [Catalytic activity/Vol] 60 U/L Critically high 14-59 [facility] Comment on above: Performed By: #### C MP, CRP ####[facility] Gbiofnsadl6442 [place] [address]Dr. Kalie Bess Anion gap [Moles/Vol] 10.2 mmol/L Normal [facility] Comment on above: Performed By: #### C MP, CRP ####[facility] Gmgsnlxsho2447 [place] [address]Dr. Kalie Bess AST [Catalytic activity/Vol] 32 U/L Normal 15-37 [facility] Comment on above: Performed By: #### C MP, CRP ####[facility] Syhjzhymrf7863 [place] [address]Dr. Kalie Bess Bilirubin [Mass/Vol] 0.3 mg/dL Normal 0.2-1.0 [facility] Comment on above: Performed By: #### C MP, CRP ####[facility] Ysptdjbnuj[address] [place], [place] [address]Dr. Kalie Bess Calcium [Mass/Vol] 9.0 mg/dL Normal 8.5-10.1 [facility] Comment on above: Performed By: #### C MP, CRP ####[facility] Dwgcpffxpg4[address] [place], [place] [address]Dr. Kalie Bess Chloride [Moles/Vol] 100 mmol/L Normal 98-107 [facility] Comment on above: Performed By: #### C MP, CRP ####[facility] Zvgddwaahx[address] [place], [place] [address]Dr. Shayyroxie Bess CO2 [Moles/Vol] 29.0 mmol/L Normal 21.0-32.0 The [facility] Comment on above: Performed By: #### C MP, CRP ####[facility] Tkyiewaifp[address] [place], [place] [address]Dr. Shayyroxie Shahriar Creatinine [Mass/Vol] 1.21 mg/dL Critically high 0.55-1.02 [facility] Comment on above: Performed By: #### C MP, CRP ####[facility] Whotmmwejj7[address] [place], [place] [address]Dr. Shayyroxie Shahriar EGFR-AF TAIWANESE 57 mL/min/1.73m2 Critically low >=60 [facility] Comment on above: Performed By: #### C MP, CRP ####[facility] Qbyjiqrgrr[address] [place], [place] [address]Dr. Kalie Bess EGFR-NON AF TAIWANESE 47 mL/min/1.73m2 Critically low >=60 [facility] Comment on above: Performed By: #### C MP, CRP ####[facility] Ecgfaieahc7[address] [place], [place] [address]Dr. Kalie Bess Globulin (S) [Mass/Vol] 5.0 g/dL Normal [facility] Comment on above: Performed By: #### C MP, CRP ####[facility] Pgsvdinrlm[address] [place], [place] [address]Dr. Kalie Bess Glucose [Mass/Vol] 339 mg/dL Critically high 74-106 [facility] Comment on above: Performed By: #### C MP, CRP ####[facility] Qmoetatiic6[address] [place], [place] [address]Dr. Kalie Bess Potassium [Moles/Vol] 4.2 mmol/L Normal 3.5-5.1 [facility] Comment on above: Performed By: #### C MP, CRP ####[facility] Rvipaxhhjt[address] [place], [place] [address]Dr. Kalie Bess Protein [Mass/Vol] 6.8 g/dL Normal 6.4-8.2 [facility] Comment on above: Performed By: #### C MP, CRP ####[facility] Msxbaksvxo5499 [place] [address]Dr. Kalie Bess Sodium [Moles/Vol] 135 mmol/L Critically low 136-145 Th [facility] Comment on above: Performed By: #### C MP, CRP ####[facility] Ytcmfnrkan[address] [place], [place] [address]Dr. Kalie Bess Urea nitrogen [Mass/Vol] 24.0 mg/dL Critically high 7.0-18.0 [facility] [facility] Comment on above: Performed By: #### C MP, CRP ####[facility] [address] [place] [id number]. Kalie Bess Urea nitrogen/Creatinine [Mass ratio] 19.8 mg/mg Normal The [facility] Comment on above: Performed By: #### C MP, CRP ####[facility] Ogwwtwtfxu[address] [place], [place] [address]Dr. Kalie Bess SED RATE WESTERGRENon 2022 SED RATE >130 Critically high <=30 The [facility] Comment on above: Performed By: #### S EDR ####[facility] Eqckvlpcti225[address] [place], [place] [address]Dr. Kalie Bess US BREAST LEFT COMPLETEon US BREAST LEFT COMPLETE Normal The [facility] XR CHEST 1 Von 11-24-2022 XR CHEST 1 V Normal The [facility] CBC AUTO DIFFon 11-23-2022 BASO # 0.1 103/ul Normal 0.0-0.1 The [facility] [place] Comment on above: Performed By: #### C BC ####[facility] Ddlbzdkuhr[address] [place], [place] [address]Dr. Kalie Shahriar Basophils/100 WBC (Bld) 0.4 % Normal 0.2-2.0 The [facility] Comment on above: Performed By: #### C BC ####[facility] Httlyxfdpa[address] [place], [place] [address]Dr. Kalie Bess EO # 0.7 103/ul Normal 0.0-0.7 The [facility] Comment on above: Performed By: #### C BC ####[facility] Ucabzxphky[address] [place], [place] [address]Dr. Kalie Shahriar Eosinophils/100 WBC (Bld) 4.5 % Normal 0.9-7.0 The [facility] [place] Comment on above: Performed By: #### C BC ####[facility] Bppqiirycg49[address] [place], [place] [address]Dr. Kalie Bess Erythrocyte distribution width (RBC) [Ratio] 14.0 % Normal 11.0-15.0 The [facility] [place] Comment on above: Performed By: #### C BC ####[facility] Jkwhurfros[address] [place], [place] [address]Dr. Kalie Bess Hematocrit (Bld) [Volume fraction] 23.8 % Critically low 36.0-48.0 The [facility] [place] Comment on above: Performed By: #### C BC ####[facility] [address]xqmshpw[address] [place] [address]DrCassie Kalie Bess Hemoglobin (Bld) [Mass/Vol] 8.4 g/dL Critically low 12.0-16.0 The [facility] [place] Comment on above: Performed By: #### C BC ####[facility] L[address]xturraqr[address] [place] [address]DrCassie Bess IG # 0.30 10e3/ul Critically high 0.00-0.03 [facility] Comment on above: Performed By: #### C BC ####[facility] Iywztcsjmx[address] [place] [address]DrCassie Bess IG % 2.1 % Critically high 0.0-0.5 The [facility] Comment on above: Performed By: #### C BC ####[facility] Jhvlevdfvj3[address] [place] [address]DrCassie Bess LYMPH # 2.3 103/ul Normal 1.2-3.8 The [facility] [place] Comment on above: Performed By: #### C BC ####[facility] [place] Vrzncgcqsv19[address] [place] [address]DrCassie Bess Lymphocytes/100 WBC (Bld) 15.6 % Critically low 20.5-60.0 The [facility] [place] Comment on above: Performed By: #### C BC ####[facility] [place] [address]jjbiueia[address] [place] [address]DrCassie Shayyroxie Bess MANUAL DIFF REQ NO Normal The [facility] Comment on above: Performed By: #### C BC ####[facility] [place] Rllnflrwmb64[address] [place] [address]DrCassie Shayyroxie Bess MCH (RBC) [Entitic mass] 29.3 pg Normal 26.7-34.0 The [facility] Comment on above: Performed By: #### C BC ####[facility] [place] Apdfsirmsb[address] [place], [place] [address]DrCassie Jade Shahriar MCHC (RBC) [Mass/Vol] 35.3 g/dL Critically high 29.9-35.2 The [facility] [place] Comment on above: Performed By: #### C BC ####[facility] [place] [address]wqxwmfonx14[address] [place] [id number]. Kalie Bess MCV (RBC) [Entitic vol] 82.9 fL Normal 81.0-99.0 The [facility] [place] Comment on above: Performed By: #### C BC ####[facility] [place] Komxhzrbka[address] [place] [address]Dr. Kalie Shahriar MONO # 1.4 103/ul Critically high 0.3-0.8 The [facility] Comment on above: Performed By: #### C BC ####[facility] U[address]adwjwjj[address] [place] [address]Dr. Shayyroxie Bess Monocytes/100 WBC (Bld) 9.3 % Normal 1.7-12.0 The [facility] [place] Comment on above: Performed By: #### C BC ####[facility] Gdxjkxpdha230[address] [place], [place] [address]Dr. Kalie Shahriar NEUT # 10.0 103/ul Critically high 1.4-6.5 The [facility] Comment on above: Performed By: #### C BC ####[facility] [place] Tdfqgzghmx[address] [place], [place] [address]Dr. Kalie Shahriar Neutrophils/100 WBC (Bld) 68.1 % Normal 43.0-75.0 The [facility] [place] Comment on above: Performed By: #### C BC ####[facility] Xhbkwwinui[address] [place] [address]Dr. Kalie Shahriar Platelet mean volume (Bld) [Entitic vol] 12.1 fL Normal 9.5-13.5 The [facility] [place] Comment on above: Performed By: #### C BC ####[facility] Uhvtwhbopt[address] [place] [address]Dr. Kalie Bess PLT 167 103/ul Normal 150-450 The [facility] [place] Comment on above: Performed By: #### C BC ####[facility] Mopamcvrop[address] [place] [address]Dr. Kalie Bess RBC 2.87 106/ul Critically low 4.20-5.40 The [facility] Comment on above: Performed By: #### C BC ####[facility] Rxduajcnjn[address] [place] [address]Dr. Kalie Bess WBC 14.6 103/ul Critically high 4.0-11.0 The [facility] Comment on above: Performed By: #### C BC ####[facility] [address]avjlgkl[address] [place] [address]Dr. Kalie Bess CRPon 11-23-2022 CRP 47.3 mg/dL Critically high <=1.0 [facility] Comment on above: Performed By: #### C RP, CMP ####[facility] [place] Ztlgefmaqi259[address] [place], [place] [address]Dr. Kalie Bess H PYLORI ANTIBODY IGGon 10-27 H. PYLORI IGG ABS 0.14 Index Value Normal 0.00-0.79 [facility] Comment on above: Result Comment: Nega tive <0.80 Equivocal 0.80 - 0.89 Positive >0.89 Performed By: #### H PYLLC ####[facility] [place] Xhmcxmtfrp[address] [place], [place] [address]Dr. Kalie Bess OCC BLD IMMUNO SCREENon 10-27 OCCULT BLOOD Negative Normal NEGATIVE [facility] Comment on above: Performed By: #### O BSCRN ####[facility] Tulhrmvcdy[address] [place], [place] [address]Dr. Kalie Bess POINT OF CARE GLUCOSEon 10-27 Glucose [Mass/Vol] 450 mg/dL Critically high 74-106 [facility] Comment on above: Performed By: #### P OCGLUC ####[facility] Kqwrqlwxyb0116[address] [place], [place] [address]Dr. Kalie Bess Glucose [Mass/Vol] 328 mg/dL Critically high 74-106 [facility] Comment on above: Performed By: #### P OCGLUC ####[facility] Ddcjcydenk2315[address] [place], [place] [address]Dr. Kalie Bess Glucose [Mass/Vol] 268 mg/dL Critically high 74-106 [facility] Comment on above: Performed By: #### P OCGLUC ####[facility] Oudxmxooll3[address] [place] [address]Dr. Shayyroxie Shahriar Glucose [Mass/Vol] 206 mg/dL Critically high 74-106 [facility] Comment on above: Performed By: #### P OCGLUC ####[facility] Kxihknvpnz6[address] [place] [address]Dr. Kalie Bess PROF 14(COMP METB)on 023 Albumin [Mass/Vol] 1.6 g/dL Critically low 3.4-5.0 Th [facility] Comment on above: Performed By: #### C RP, CMP ####[facility] [place] Gfxkctaepe[address] [place], [place] [address]Dr. Kalie Bess Albumin/Globulin [Mass ratio] 0.4 {ratio} Normal [facility] Comment on above: Performed By: #### C RP, CMP ####[facility] Iryullyoaz[address] [place], [place] [address]Dr. Kalie Bess ALP [Catalytic activity/Vol] 202 U/L Critically high 46-116 [facility] Comment on above: Performed By: #### C RP, CMP ####[facility] Alxifdprtj[address] [place] [address]Dr. Kalie Bess ALT [Catalytic activity/Vol] 63 U/L Critically high 14-59 [facility] Comment on above: Performed By: #### C RP, CMP ####[facility] Odqoxitowg[address] [place] [address]Dr. Kalie Bess Anion gap [Moles/Vol] 12.7 mmol/L Normal [facility] Comment on above: Performed By: #### C RP, CMP ####[facility] Jivelbzijs24[address] [place] [address]Dr. Kalie Bess AST [Catalytic activity/Vol] 69 U/L Critically high 15-37 [facility] Comment on above: Performed By: #### C RP, CMP ####[facility] Enykecbxew[address] [place], [place] [id number]. Kalie Bess Bilirubin [Mass/Vol] 0.2 mg/dL Normal 0.2-1.0 The [facility] Comment on above: Performed By: #### C RP, CMP ####[facility] Nyvmcymfqe67[address] [place], [place] [address]Dr. Kalie Bess Calcium [Mass/Vol] 8.6 mg/dL Normal 8.5-10.1 [facility] Comment on above: Performed By: #### C RP, CMP ####[facility] Qmuzxtsgmk216[address] [place], [place] [address]Dr. Kalie Bess Chloride [Moles/Vol] 99 mmol/L Normal 98-107 The [facility] Comment on above: Performed By: #### C RP, CMP ####[facility] [place] Sdbuyiyfkv[address] [place], [place] [address]Dr. Kalie Bess CO2 [Moles/Vol] 27.2 mmol/L Normal 21.0-32.0 The [facility] Comment on above: Performed By: #### C RP, CMP ####[facility] Vvqhhdwrjh[address] [place], [place] [address]Dr. Kalie Bess Creatinine [Mass/Vol] 1.59 mg/dL Critically high 0.55-1.02 [facility] Comment on above: Performed By: #### C RP, CMP ####[facility] [place] Xtcntigovr04[address] [place], [place] [address]Dr. Kalie Shahriar EGFR-AF TAIWANESE 41 mL/min/1.73m2 Critically low >=60 The [facility] [place] Comment on above: Performed By: #### C RP, CMP ####[facility] [place] Vazmluhdsq[address] [place], [place] [address]Dr. Kalie Bess EGFR-NON AF TAIWANESE 34 mL/min/1.73m2 Critically low >=60 The [facility] [place] Comment on above: Performed By: #### C RP, CMP ####[facility] Fmcaawdlvd[address] [place], [place] [address]Dr. Kalie Bses Globulin (S) [Mass/Vol] 4.5 g/dL Normal The [facility] Comment on above: Performed By: #### C RP, CMP ####[facility] [place] Ovhqwdrcwg[address] [place] [id number]. Kalie Bess Glucose [Mass/Vol] 119 mg/dL Critically high 74-106 [facility] Comment on above: Performed By: #### C RP, CMP ####[facility] Xrebgiusbf64[address] [place] [id number]. Kalie Bess Potassium [Moles/Vol] 3.9 mmol/L Normal 3.5-5.1 [facility] Comment on above: Performed By: #### C RP, CMP ####[facility] Albeoxmdic7[address] [place] [address]Dr. Kalie Bess Protein [Mass/Vol] 6.1 g/dL Critically low 6.4-8.2 Th [facility] Comment on above: Performed By: #### C RP, CMP ####[facility] Wqlgecyehv[address]17[address] [place], [place] [address]Dr. Kalie Bess Sodium [Moles/Vol] 135 mmol/L Critically low 136-145 Th [facility] Comment on above: Performed By: #### C RP, CMP ####[facility] Sgboaycorw9[address] [place] [address]Dr. Kalie Shahriar Urea nitrogen [Mass/Vol] 36.0 mg/dL Critically high 7.0-18.0 [facility] Comment on above: Performed By: #### C RP, CMP ####[facility] Ncbjfwzgwe4[address] [place] [address]Dr. Kalie Shahriar Urea nitrogen/Creatinine [Mass ratio] 22.6 mg/mg Normal [facility] Comment on above: Performed By: #### C RP, CMP ####[facility] Lcutaribci76[address] [place] [id number]. Kalie Shahriar SED RATE WESTERGRENon 2022 SED RATE >130 Critically high <=30 [facility] Comment on above: Performed By: #### S EDR ####[facility] Kwfpfrbjfi25[address] [place] [address]Dr. Kalie Shahriar CBC AUTO DIFFon 01-28-2023 BASO # 0.1 103/ul Normal 0.0-0.1 The [facility] Comment on above: Performed By: #### C BC ####[facility] Amwqncqxkq4984 [place] [address]Dr. Kalie Bess Basophils/100 WBC (Bld) 0.5 % Normal 0.2-2.0 The [facility] [place] Comment on above: Performed By: #### C BC ####[facility] Zbnldckkyn60[address] [place] [address]Dr. Kalie Bess EO # 0.8 103/ul Critically high 0.0-0.7 The [facility] Comment on above: Performed By: #### C BC ####[facility] Drdmnvluiv7346 [place] [address]Dr. Kalie Bess Eosinophils/100 WBC (Bld) 5.2 % Normal 0.9-7.0 The [facility] [place] Comment on above: Performed By: #### C BC ####[facility] Zffteqfcfd0937[address] [place], [place] [address]Dr. Kalie Bess Erythrocyte distribution width (RBC) [Ratio] 13.8 % Normal 11.0-15.0 The [facility] [place] Comment on above: Performed By: #### C BC ####[facility] Ceetkverhu814[address] [place], [place] [address]Dr. Kalie Bess Hematocrit (Bld) [Volume fraction] 27.0 % Critically low 36.0-48.0 The [facility] [place] Comment on above: Performed By: #### C BC ####[facility] Qmbjxiepxc[address] [place], [place] [address]Dr. Kalie Bess Hemoglobin (Bld) [Mass/Vol] 9.4 g/dL Critically low 12.0-16.0 The [facility] Comment on above: Performed By: #### C BC ####[facility] Zfhlskawvg1424[address] [place], [place] [address]DrCassie Bess IG # 0.23 10e3/ul Critically high 0.00-0.03 The [facility] Comment on above: Performed By: #### C BC ####[facility] Vxpykgsyrr1995[address] [place], [place] [address]Dr. Kalie Bess IG % 1.4 % Critically high 0.0-0.5 The [facility] Comment on above: Performed By: #### C BC ####[facility] Koahndxiyv[address] [place] [address]DrCassie Bess LYMPH # 2.2 103/ul Normal 1.2-3.8 The [facility] [place] Comment on above: Performed By: #### C BC ####[facility] Sirkirwfjx4339 [place] [address]DrCassie Bess Lymphocytes/100 WBC (Bld) 13.6 % Critically low 20.5-60.0 The [facility] Comment on above: Performed By: #### C BC ####[facility] Yiblyvqjmk01[address] [place], [place] [address]DrCassie Bess MANUAL DIFF REQ NO Normal The [facility] Comment on above: Performed By: #### C BC ####[facility] Raycdfvwrr6[address] [place], [place] [address]DrCassie Bess MCH (RBC) [Entitic mass] 28.8 pg Normal 26.7-34.0 The [facility] Comment on above: Performed By: #### C BC ####[facility] [place] Toeuymbqmm[address] [place], [place] [address]DrCassie Bess MCHC (RBC) [Mass/Vol] 34.8 g/dL Normal 29.9-35.2 The [facility] [place] Comment on above: Performed By: #### C BC ####[facility] Paopeovgeb[address] [place], [place] [address]DrCassie Bess MCV (RBC) [Entitic vol] 82.8 fL Normal 81.0-99.0 The [facility] Comment on above: Performed By: #### C BC ####[facility] Mbowsgacht9[address] [place], [place] [address]DrCassie Bess MONO # 1.2 103/ul Critically high 0.3-0.8 The [facility] Comment on above: Performed By: #### C BC ####[facility] Qpbzhapulj310[address] [place], [place] [address]DrCassie Bess Monocytes/100 WBC (Bld) 7.3 % Normal 1.7-12.0 The [facility] Comment on above: Performed By: #### C BC ####[facility] Rvhqmyapwy79[address] [place] [id number]. Kalie Bess NEUT # 11.7 103/ul Critically high 1.4-6.5 The [facility] Comment on above: Performed By: #### C BC ####[facility] Vkphjvammu3620 [place] [address]Dr. Kalie Bess Neutrophils/100 WBC (Bld) 72.0 % Normal 43.0-75.0 The [facility] Comment on above: Performed By: #### C BC ####[facility] Ditwhupxlu2332 [place] [address]Dr. Kalie Bess Platelet mean volume (Bld) [Entitic vol] 12.5 fL Normal 9.5-13.5 The [facility] Comment on above: Performed By: #### C BC ####[facility] Sqxpppwiru3474 [place] [address]Dr. Kalie Bess PLT 153 103/ul Normal 150-450 The [facility] Comment on above: Performed By: #### C BC ####[facility] Yziunanzid[address] [place], [place] [address]Dr. Kalie Bess RBC 3.26 106/ul Critically low 4.20-5.40 The [facility] Comment on above: Performed By: #### C BC ####[facility] Zjllrrwabu10[address] [place] [address]Dr. Kalie Bess WBC 16.2 103/ul Critically high 4.0-11.0 The [facility] Comment on above: Performed By: #### C BC ####[facility] Cmepuuzeys15[address] [place] [address]Dr. Kalie Bess CRPon 11-22-2022 CRP [Mass/Vol] mg/L Normal <=1.0 The [facility] Comment on above: Performed By: #### C RP, CMP ####[facility] [address]cjgckrf[address] [place], [place] [id number]. Kalie Bess POINT OF CARE GLUCOSEon 10-27 Glucose [Mass/Vol] 179 mg/dL Critically high 74-106 [facility] Comment on above: Performed By: #### P OCGLUC ####[facility] Uukvmyjtkm89[address] [place] [address]Dr. Kalie Bess Glucose [Mass/Vol] 110 mg/dL Critically high 74-106 [facility] Comment on above: Performed By: #### P OCGLUC ####[facility] Bcqzykmipq0872 [place] [address]Dr. Kalie Bess Glucose [Mass/Vol] 258 mg/dL Critically high 74-106 [facility] Comment on above: Performed By: #### P OCGLUC ####[facility] Kknklouybr5121 [place] [address]Dr. Kalie Bess Glucose [Mass/Vol] 216 mg/dL Critically high 74-106 [facility] Comment on above: Performed By: #### P OCGLUC ####[facility] Lqkmtenuzz4719 [place] [address]Dr. Kalie Shahriar PROF 14(COMP METB)on 023 Albumin [Mass/Vol] 1.8 g/dL Critically low 3.4-5.0 Th [facility] Comment on above: Performed By: #### C RP, CMP ####[facility] Ukaeojlzzc9[address] [place] [address]Dr. Kalie Bess Albumin/Globulin [Mass ratio] 0.4 {ratio} Normal [facility] Comment on above: Performed By: #### C RP, CMP ####[facility] Tqrvpwabxi12[address] [place] [address]Dr. Kalie Bess ALP [Catalytic activity/Vol] 117 U/L Critically high 46-116 [facility] Comment on above: Performed By: #### C RP, CMP ####[facility] Npvciwzgfe8212 [place] [address]Dr. Kalie Bess ALT [Catalytic activity/Vol] 30 U/L Normal 14-59 [facility] Comment on above: Performed By: #### C RP, CMP ####[facility] Gafrjdjtsp8595 [place] [id number]. Kalie Bess Anion gap [Moles/Vol] 12.9 mmol/L Normal [facility] Comment on above: Performed By: #### C RP, CMP ####[facility] Dkwxdmbszf444943 [address] [place], [place] [address]Dr. Kalie Bess AST [Catalytic activity/Vol] 20 U/L Normal 15-37 [facility] [place] Comment on above: Performed By: #### C RP, CMP ####[facility] [place] Spcltaluxp[address] [place], [place] [address]Dr. Kalie Bess Bilirubin [Mass/Vol] 0.3 mg/dL Normal 0.2-1.0 [facility] Comment on above: Performed By: #### C RP, CMP ####[facility] [place] Kstcrdwazd[address] [place], [place] [address]Dr. Shayyroxie Bess Calcium [Mass/Vol] 8.5 mg/dL Normal 8.5-10.1 [facility] Comment on above: Performed By: #### C RP, CMP ####[facility] [place] Jmsyfhjimz[address] [place], [place] [address]Dr. Kalie Bess Chloride [Moles/Vol] 97 mmol/L Critically low 98-107 [facility] Comment on above: Performed By: #### C RP, CMP ####[facility] [place] Ybaeelbwct238[address] [place], [place] [address]Dr. Kalie Bess CO2 [Moles/Vol] 26.1 mmol/L Normal 21.0-32.0 The [facility] Comment on above: Performed By: #### C RP, CMP ####[facility] Izazifuguo[address] [place], [place] [address]Dr. Shayyroxie Bess Creatinine [Mass/Vol] 1.72 mg/dL Critically high 0.55-1.02 [facility] Comment on above: Performed By: #### C RP, CMP ####[facility] [place] Bnkznjmfva[address] [place], [place] [address]Dr. Shayyroxie Shahriar EGFR-AF TAIWANESE 38 mL/min/1.73m2 Critically low >=60 The [facility] [place] Comment on above: Performed By: #### C RP, CMP ####[facility] [place] Yxxsrznunk49[address] [place] [address]Dr. Kalie Bess EGFR-NON AF TAIWANESE 31 mL/min/1.73m2 Critically low >=60 [facility] Comment on above: Performed By: #### C RP, CMP ####[facility] Gehgdrdjbk9985 [place] [address]Dr. Kalie Bess Globulin (S) [Mass/Vol] 4.5 g/dL Normal [facility] Comment on above: Performed By: #### C RP, CMP ####[facility] [place] Lpntsukfjo0813 [place] [address]Dr. Kalie Bess Glucose [Mass/Vol] 230 mg/dL Critically high 74-106 [facility] Comment on above: Performed By: #### C RP, CMP ####[facility] [place] Vzuxkhvxng2839[address] [place], [place] [address]Dr. Kalie Bess Potassium [Moles/Vol] 4.0 mmol/L Normal 3.5-5.1 [facility] Comment on above: Performed By: #### C RP, CMP ####[facility] [place] Zwlxremxrn597[address] [place], [place] [address]Dr. Kalie Bess Protein [Mass/Vol] 6.3 g/dL Critically low 6.4-8.2 Th [facility] Comment on above: Performed By: #### C RP, CMP ####[facility] Jotmtwhltq707[address] [place], [place] [address]Dr. Kalie Bess Sodium [Moles/Vol] 132 mmol/L Critically low 136-145 Th [facility] Comment on above: Performed By: #### C RP, CMP ####[facility] [place] Qdcfsvfcwd165[address] [place], [place] [address]Dr. Kalie Bess Urea nitrogen [Mass/Vol] 45.0 mg/dL Critically high 7.0-18.0 [facility] Comment on above: Performed By: #### C RP, CMP ####[facility] [place] Fjzmshukgp2[address] [place], [place] [address]Dr. Yiroxie Bess Urea nitrogen/Creatinine [Mass ratio] 26.2 mg/mg Normal The [facility] [place] Comment on above: Performed By: #### C RP, CMP ####[facility] [place] Vzvamyxcjv3[address] [place] [address]Dr. Kalie Bess SED RATE WESTERGRENon 2022 SED RATE 95 mm/hr Critically high <=30 The [facility] Comment on above: Performed By: #### S EDR ####[facility] [place] Idudmxkdkn500[address] [place], [place] [address]Dr. Kalie Bess US BREAST LEFT LIMITEDon US BREAST LEFT LIMITED Normal The [facility] [place] ACETONE SERUMon 11-21-2022 ACETONE Negative Normal NEGATIVE The [facility] [place] Comment on above: Performed By: #### A CETON ####[facility] [place] Cjcwyujrin954[address] [place], [place] [address]Dr. Kalie Bess CBC W MANUAL DIFFon 11-21-19 23 ANISOCYTOSIS SLIGHT Normal The [facility] [place] Comment on above: Performed By: #### C BCMAN ####[facility] Djpjgtkgvm931443 [address] [place], [place] [address]Dr. Kalie Bess ATYPICAL LYMPH # Normal The [facility] Comment on above: Performed By: #### C BCMAN ####[facility] [place] Fuplkjkopq5339[address] [place], [place] [address]Dr. Kalie Bess ATYPICAL LYMPH % Normal The [facility] Comment on above: Performed By: #### C BCMAN ####[facility] [place] Icpfhliymm1208 [place] [address]Dr. Kalie Bess BAND # 1.1 103/ul Critically high 0.0-0.3 The [facility] Comment on above: Performed By: #### C BCMAN ####[facility] [place] Zjwogmpftl5071 [place] [address]Dr. Shayyroxie Shahriar BAND % 5 % Normal 0-5 The [facility] [place] Comment on above: Performed By: #### C BCMAN ####[facility] [place] Brvqopxzwc7941 [place] [address]Dr. Kalie Bess BASOM # 0.00 103/ul Normal 0.00-0.10 The [facility] [place] Comment on above: Performed By: #### C NANCY ####[facility] [place] Mfhecreuwi9299 [place] [address]Dr. Kalie Bess BASOM % 0.0 % Critically low 0.2-2.0 The [facility] Comment on above: Performed By: #### C NANCY ####[facility] [place] Jytmfdslum5708 [place] [address]Dr. Kalie Bess BLAST # Normal [facility] Comment on above: Performed By: #### C NANCY ####[facility] [place] Xptofpbrjk7741 [place] [address]Dr. Kalie Bess BLAST % Normal [facility] Comment on above: Performed By: #### C NANCY ####[facility] [place] Gnozihjhwc[address] [place], [place] [address]Dr. Kalie Bess CORRECTED WBC Normal 4.0-11.0 [facility] Comment on above: Performed By: #### C NANCY ####[facility] [place] Acrwyievte126[address] [place], [place] [address]Dr. Kalie Bess EOS # 0.87 103/ul Critically high 0.00-0.70 [facility] Comment on above: Performed By: #### C NANCY ####[facility] [place] Ynudthpacv99[address] [place], [place] [address]Dr. Kalie Bess EOS% 4.0 % Normal 0.9-7.0 The [facility] [place] Comment on above: Performed By: #### C NANCY ####[facility] Yusxfpsmdr455[address] [place], [place] [address]Dr. Kalie Bess HCT 22.7 % Critically low 36.0-48.0 The [facility] Comment on above: Performed By: #### C NANCY ####[facility] Xaohkyompc425[address] [place], [place] [address]Dr. Kalie Bess HGB 8.2 g/dl Critically low 12.0-16.0 The [facility] Comment on above: Performed By: #### C NANCY ####[facility] [place] Vqjasajhqp6916[address] [place], [place] [address]Dr. Kalie Bess LYMPHM # 1.74 103/ul Normal 1.20-3.80 The [facility] [place] Comment on above: Performed By: #### C NANCY ####[facility] [place] Bicjjqexlt6204 [place] [id number]. Kalie Bess LYMPHM% 8.0 % Critically low 20.5-60.0 The [facility] Comment on above: Performed By: #### C NANCY ####[facility] [place] Ihzlxpngir4716 [place] [id number]. Kalie Bess MCH 29.2 pg Normal 26.7-34.0 The [facility] [place] Comment on above: Performed By: #### C NANCY ####[facility] [place] Oxitzjfxvb2163 [place] [id number]. Kalie Bess MCHC 36.1 g/dl Critically high 29.9-35.2 The [facility] Comment on above: Performed By: #### C NANCY ####[facility] [place] Imrkdmqgit1624 [place] [address]Dr. Kalie Bess MCV 80.8 fL Critically low 81.0-99.0 The [facility] Comment on above: Performed By: #### C NANCY ####[facility] [place] Yvyivpiahs3355 [place] [address]Dr. Kalie Bess METAMYELOCYTE # Normal The [facility] Comment on above: Performed By: #### C NANCY ####[facility] [place] Ittwjxiolj9152 [place] [address]Dr. Kalie Bess METAMYELOCYTE % Normal The [facility] Comment on above: Performed By: #### C NANCY ####[facility] [place] Iliqendrhh3079 [place] [address]Dr. Kalie Bess MICROCYTOSIS SLIGHT Normal The [facility] [place] Comment on above: Performed By: #### C NANCY ####[facility] [place] Cyalzxpinx9568 [place] [address]Dr. Kalie Bess MONOM# 1.08 103/ul Critically high 0.30-0.80 The [facility] Comment on above: Performed By: #### C NANCY ####[facility] [place] Bgyhfhvmsv4741 [place], [place] [address]Mg. Kalie Bess MONOM% 5.0 % Normal 1.7-12.0 The [facility] [place] Comment on above: Performed By: #### C NANCY ####[facility] [place] Rkwgywdxmu2272 [place], [place] [address]Li. Kalie Bess MPV 12.3 fL Normal 9.5-13.5 The [facility] [place] Comment on above: Performed By: #### C NANCY ####[facility] Pwejnthrqf5546 [place], [place] [address]Ff. Kalie Bess MYELOCYTE # Normal [facility] Comment on above: Performed By: #### C NANCY ####[facility] [place] Oenhvoqgbf4664 [place] [address]Dr. Kalie Bess MYELOCYTE % Normal The [facility] [place] Comment on above: Performed By: #### C NANCY ####[facility] Wjrnyhwysl2277 [place] [address]Dr. Kalie Bess NRBC Normal The [facility] [place] Comment on above: Performed By: #### C NANCY ####[facility] [place] Qhizqvojbi5460 [place] [address]Dr. Kalie Bess PLT 184 103/ul Normal 150-450 The [facility] [place] Comment on above: Performed By: #### C NANCY ####[facility] Impcxujege4950 [place], [place] [address]Hp. Kalie Bess RBC 2.81 106/ul Critically low 4.20-5.40 The [facility] Comment on above: Performed By: #### C NANCY ####[facility] [place] Xwjwqiyhjm6630 [place], [place] [address]Ka. Kalie Bess RDW 13.6 % Normal 11.0-15.0 The [facility] [place] Comment on above: Performed By: #### C NANCY ####[facility] [place] Aarmylboow3594 [place] [address]Dr. Kalie Bess SEG # 16.93 103/ul Critically high 1.40-6.50 [facility] Comment on above: Performed By: #### C BCMAN ####[facility] [place] Sxyfesdddv9200 [place], [place] [address]Eo. Kalie Bess SEG % 78.0 % Critically high 43.0-75.0 The [facility] Comment on above: Performed By: #### C BCMAN ####[facility] [place] Bsciawhooy4501 [place], [place] [address]Mu. Kalie Bess WBC 21.7 103/ul Critically high 4.0-11.0 The [facility] Comment on above: Performed By: #### C BCMAN ####[facility] [place] Cwtljkxwuo1932 [place] [address]Dr. Kalie Bess CRPon 11-21-2022 CRP 65.5 mg/dL Critically high <=1.0 The [facility] Comment on above: Performed By: #### C RP ####[facility] [place] Jbtcjijxca9903 [place], [place] [address]Rl. Kalie Bess CULTURE BLOODon 11-21-2022 Microscopic examination of blood, culture Culture Observations: NO GROWTH AT 5 DAYS. Normal The [facility] [place] Comment on above: Performed By: #### B LDCX2 ####[facility] Rvsxxlicsn1704 [place] [id number]. Kalie Bess Microscopic examination of blood, culture Culture Observations: NO GROWTH AT 5 DAYS. Normal The [facility] [place] Comment on above: Performed By: #### B LDCX1 ####[facility] Ohdsyuqhgt3686 [place] [id number]. Kalie Bess Covid-19 PCR (CVDTB)on 10-27 SARS-CoV-2 (COVID-19) RNA CIPRIANO+probe Ql (Unsp spec) Not detected Normal NOT DETECTED The [facility] [place] Comment on above: Result Comment: When diagnostic [...] for this test is supported by the Transportation Officer of Health and Human Service's declaration that [...] be used). Performed By: #### C VDTBH ####[facility] Qqsdhwqjzd7171 [place] [address]Dr. Kalie Bess LACTATE/LACTIC ACIDon 2022 Lactate [Moles/Vol] 1.1 mmol/L Normal 0.4-1.9 [facility] Comment on above: Performed By: #### L ACT ####[facility] Gumpatnkqb911[address] [place], [place] [address]DrCassie Bess Lactate [Moles/Vol] 2.2 mmol/L Critically high 0.4-1.9 [facility] Comment on above: Performed By: #### L ACT ####[facility] Qmugkyljhe7950[address] [place], [place] [address]Dr. Kalie Bess POINT OF CARE GLUCOSEon 10-27 Glucose [Mass/Vol] 343 mg/dL Critically high 74-106 [facility] Comment on above: Performed By: #### P OCGLUC ####[facility] Tzoowlurfr7467[address] [place], [place] [address]DrCassie Bess PROF 14(COMP METB)on 023 Albumin [Mass/Vol] 2.0 g/dL Critically low 3.4-5.0 Th [facility] Comment on above: Performed By: #### C MP ####[facility] Paysssurtf68[address] [place], [place] [address]DrCassie Bess Albumin/Globulin [Mass ratio] 0.4 {ratio} Normal [facility] Comment on above: Performed By: #### C MP ####[facility] Baoqpgnequ[address] [place], [place] [address]DrCassie Bess ALP [Catalytic activity/Vol] 126 U/L Critically high 46-116 [facility] Comment on above: Performed By: #### C MP ####[facility] [place] Srtgbeytnk7230 [place] [id number]. Kalie Bess ALT [Catalytic activity/Vol] 35 U/L Normal 14-59 [facility] Comment on above: Performed By: #### C MP ####[facility] Alyggpvyvq5602 [place] [address]Dr. Kalie Bess Anion gap [Moles/Vol] 14.6 mmol/L Normal [facility] Comment on above: Performed By: #### C MP ####[facility] [place] Gvsykedpmj4194 [place] [address]Dr. Kalie Bess AST [Catalytic activity/Vol] 27 U/L Normal 15-37 [facility] Comment on above: Performed By: #### C MP ####[facility] [place] Yqgfcezyxk2424 [place] [address]Dr. Kalie Shahriar Bilirubin [Mass/Vol] 0.3 mg/dL Normal 0.2-1.0 [facility] Comment on above: Performed By: #### C MP ####[facility] Cimexmzhlf6578 [place] [address]Dr. Kalie Shahriar Calcium [Mass/Vol] 8.9 mg/dL Normal 8.5-10.1 [facility] Comment on above: Performed By: #### C MP ####[facility] Hhyuhycmsc6202 [place] [address]Dr. Kalie Shahriar Chloride [Moles/Vol] 92 mmol/L Critically low 98-107 The [facility] [place] Comment on above: Performed By: #### C MP ####[facility] Ibrjjomakw4802 [place] [address]Dr. Kalie Bess CO2 [Moles/Vol] 27.2 mmol/L Normal 21.0-32.0 The [facility] Comment on above: Performed By: #### C MP ####[facility] [place] Vvgfsbvykb2191 [place] [address]Dr. Kalie Shahriar Creatinine [Mass/Vol] 2.03 mg/dL Critically high 0.55-1.02 [facility] Comment on above: Performed By: #### C MP ####[facility] [place] Gbkohflfmj6768 [place] [address]Dr. Kalie Bess EGFR-AF TAIWANESE 31 mL/min/1.73m2 Critically low >=60 [facility] Comment on above: Performed By: #### C MP ####[facility] [place] Azuyccysew9394 [place] [address]Dr. Kalie Shahriar EGFR-NON AF TAIWANESE 26 mL/min/1.73m2 Critically low >=60 [facility] Comment on above: Performed By: #### C MP ####[facility] [place] Rkjcnukdgf6189 [place] [id number]. Kalie Shahriar Globulin (S) [Mass/Vol] 4.9 g/dL Normal [facility] Comment on above: Performed By: #### C MP ####[facility] Ptjpndpelu4157 [place] [address]Dr. Kalie Bess Glucose [Mass/Vol] 329 mg/dL Critically high 74-106 [facility] Comment on above: Performed By: #### C MP ####[facility] Jkkhxkqosq5050 [place] [address]Dr. Shayyroxie Bess Potassium [Moles/Vol] 3.8 mmol/L Normal 3.5-5.1 [facility] Comment on above: Performed By: #### C MP ####[facility] Kjjufiojej0925 [place] [address]Dr. Kalie Bess Protein [Mass/Vol] 6.9 g/dL Normal 6.4-8.2 [facility] Comment on above: Performed By: #### C MP ####[facility] Kwsooczgwb4342 [place] [address]Dr. Kalie Bess Sodium [Moles/Vol] 130 mmol/L Critically low 136-145 [facility] Comment on above: Performed By: #### C MP ####[facility] Xaurizqhyk3037 [place] [id number]. Kalie Bess Urea nitrogen [Mass/Vol] 52.0 mg/dL Critically high 7.0-18.0 [facility] Comment on above: Performed By: #### C MP ####[facility] Stvfrqiefb2858 [place] [address]Dr. Kalie Bess Urea nitrogen/Creatinine [Mass ratio] 25.6 mg/mg Normal The [facility] Comment on above: Performed By: #### C MP ####[facility] Clxyvimnka9808 [place] [address]Dr. Kalie Bess PROTIMEon 11-21-2022 INR Coag (PPP) [Relative time] 1.03 {INR} Normal The [facility] [place] Comment on above: Performed By: #### P T, PTT ####[facility] Yxlymugaap[address] [place], [place] [address]Dr. Kalie Bess INR GUIDELINES SEE BELOW Normal [facility] Comment on above: Result Comment: GABRIELLA RED INR: 2.0 - 3.0 CONDITIONS NOT LISTED BELOW 2.5 - 3.5 FOR PROSTHETIC HEART VALVE REPLACEMENT 2.5 - 3.5 RECURRENT THROMBOSIS Performed By: #### P T, PTT ####[facility] Hhadlavfef[address] [place], [place] [address]Dr. Kalie Bess PT Coag (PPP) [Time] 10.9 s Normal 9.0-11.6 The [facility] Comment on above: Performed By: #### P T, PTT ####[facility] Tovcraeqfn8325[address] [place], [place] [address]Dr. Kalie Bess PTTon 11-21-2022 aPTT Coag (Bld) [Time] 27.3 s Normal 22.3-36.2 The [facility] Comment on above: Performed By: #### P T, PTT ####[facility] Pbiclhnwnh354[address] [place], [place] [address]Dr. Kalie Bess SED RATE UPPERVILLEERGRENon 2022 SED RATE 63 mm/hr Critically high <=30 [facility] Comment on above: Performed By: #### S EDR ####[facility] Czebbdkxjf38[address] [place], [place] [address]Dr. Kalie Bess ACID FAST SMEAR AND CXon Acid Fast Culture Negative Normal [facility] Comment on above: Result Comment: No a junior fast bacilli isolated after 6 weeks. Performed By: #### A FB ####[facility] Rdqukwffng6590 [place] [address]Dr. Kalie Bess Acid Fast Smear Negative Normal [facility] Comment on above: Performed By: #### A FB ####[facility] Fpsuymmdwu7357 [place] [id number]. Kalie Bess AF[employer] Specimen Processing Direct Inoculation Normal [facility] Comment on above: Performed By: #### A FB ####[facility] Exobacjlxl[address] [place], [place] [id number]. Kalie Bess FUNGAL CULTUREon 09-01-2022 Fungus (Mycology) Culture Final report Normal [facility] Comment on above: Performed By: #### C XFUN ####[facility] Mszbzotfhc365[address] [place], [place] [address]Dr. Kalie Bess Fungus Stain Final report Normal [facility] Comment on above: Performed By: #### C XFUN ####[facility] Ncbitpnjsg640[address] [place], [place] [address]Dr. Kalie Bess Result [address] [facility] Comment on above: Result Comment: GILMA/ Calcofluor preparation: no fungus observed. Performed By: #### C XFUN ####[facility] Qmzhjdgkqj542[address] [place], [place] [address]Dr. Kalie Bess Result Comment: No y east or mold isolated after 4 weeks. BNPon 08-05-2022 Natriuretic peptide B (Bld) [Mass/Vol] 3827.0 pg/mL Critically high <=900.0 [facility] Comment on above: Performed By: #### B MP, BNP ####[facility] Yieabrnexe7975[address] [place], [place] [address]Dr. Kalie Bess CBC AUTO DIFFon 08-05-2022 BASO # 0.0 103/ul Normal 0.0-0.1 [facility] Comment on above: Performed By: #### C BC ####[facility] Rpgwqddgtm4588[address] [place], [place] [address]Dr. Kalie Bess Basophils/100 WBC (Bld) 0.1 % Critically low 0.2-2.0 [facility] Comment on above: Performed By: #### C BC ####[facility] Afcrbenqfh540[address] [place], [place] [address]DrCassie Bess EO # 0.0 103/ul Normal 0.0-0.7 [facility] Comment on above: Performed By: #### C BC ####[facility] Ovctrtjrpd[address] [place], [place] [address]DrCassie Bess Eosinophils/100 WBC (Bld) 0.0 % Critically low 0.9-7.0 [facility] Comment on above: Performed By: #### C BC ####[facility] Ifshrohmjm072143 [address] [place], [place] [address]DrCassie Bess Erythrocyte distribution width (RBC) [Ratio] 13.9 % Normal 11.0-15.0 [facility] Comment on above: Performed By: #### C BC ####[facility] Ntfsowymru5517[address] [place], [place] [address]DrCassie Bess Hematocrit (Bld) [Volume fraction] 32.9 % Critically low 36.0-48.0 [facility] Comment on above: Performed By: #### C BC ####[facility] Wahnnjkdsf9[address] [place], [place] [address]DrCassie Bess Hemoglobin (Bld) [Mass/Vol] 10.5 g/dL Critically low 12.0-16.0 [facility] Comment on above: Performed By: #### C BC ####[facility] Hecshmnxxs1559[address] [place], [place] [address]DrCassie Bess IG # 0.11 10e3/ul Critically high 0.00-0.03 [facility] Comment on above: Performed By: #### C BC ####[facility] Ozbothkqzo735[address] [place], [place] [address]DrCassie Bess IG % 0.7 % Critically high 0.0-0.5 [facility] Comment on above: Performed By: #### C BC ####[facility] Hlvsamplly289[address] [place], [place] [address]DrCassie Bess LYMPH # 1.6 103/ul Normal 1.2-3.8 The [facility] Comment on above: Performed By: #### C BC ####[facility] [address]nro[address] [place] [address]DrCassie Bess Lymphocytes/100 WBC (Bld) 9.5 % Critically low 20.5-60.0 The [facility] Comment on above: Performed By: #### C BC ####[facility] Yscvesiotn[address] [place] [address]DrCassie Bess MANUAL DIFF REQ NO Normal [facility] Comment on above: Performed By: #### C BC ####[facility] Xspfnrzpwg96[address] [place] [address]DrCassie Bess MCH (RBC) [Entitic mass] 28.7 pg Normal 26.7-34.0 The [facility] Comment on above: Performed By: #### C BC ####[facility] Uddiomffir[address] [place] [address]DrCassie Bess MCHC (RBC) [Mass/Vol] 31.9 g/dL Normal 29.9-35.2 The [facility] Comment on above: Performed By: #### C BC ####[facility] Obconmcrrt8245[address] [place], [place] [address]DrCassie Bess MCV (RBC) [Entitic vol] 89.9 fL Normal 81.0-99.0 The [facility] Comment on above: Performed By: #### C BC ####[facility] R[address]qqtfytug[address] [place] [address]DrCassie Bess MONO # 0.5 103/ul Normal 0.3-0.8 The [facility] Comment on above: Performed By: #### C BC ####[facility] Fepsnznmao6585[address] [place], [place] [address]DrCassie Bess Monocytes/100 WBC (Bld) 2.9 % Normal 1.7-12.0 The [facility] Comment on above: Performed By: #### C BC ####[facility] Wujhjsyyjn[address] [place], [place] [address]DrCassie Bess NEUT # 14.5 103/ul Critically high 1.4-6.5 [facility] Comment on above: Performed By: #### C BC ####[facility] [address]iwhuf[address] [place] [id number] Kalie Bess Neutrophils/100 WBC (Bld) 86.8 % Critically high 43.0-75.0 [facility] Comment on above: Performed By: #### C BC ####[facility] Rhpccecmmo[address] [place] [address]DrCassie Kalie Bess Platelet mean volume (Bld) [Entitic vol] 12.0 fL Normal 9.5-13.5 [facility] Comment on above: Performed By: #### C BC ####[facility] Dqayulxghs4700[address] [place], [place] [address]DrCassie Lucasroxie Shahriar PLT 245 103/ul Normal 150-450 The [facility] Comment on above: Performed By: #### C BC ####[facility] Dylttpojzb0330[address] [place], [place] [address]DrCassie Lucasroxie Shahriar RBC 3.66 106/ul Critically low 4.20-5.40 [facility] Comment on above: Performed By: #### C BC ####[facility] Dmvbaybkpr212143 [address] [place], [place] [address]DrCassie Kalie Bess WBC 16.7 103/ul Critically high 4.0-11.0 [facility] Comment on above: Performed By: #### C BC ####[facility] Ocqoovpgvy1885[address] [place], [place] [address]DrCassie Bess PROF CHEM 8 (BAS METB)on Anion gap [Moles/Vol] 10.1 mmol/L Normal [facility] Comment on above: Performed By: #### B MP, BNP ####[facility] Qeclmjjljl7209[address] [place], [place] [address]DrCassie Bess Calcium [Mass/Vol] 8.4 mg/dL Critically low 8.5-10.1 [facility] Comment on above: Performed By: #### B MP, BNP ####[facility] Txjlfocnov167343 [address] [place], [place] [address]Dr. Kalie Bess Chloride [Moles/Vol] 96 mmol/L Critically low 98-107 [facility] Comment on above: Performed By: #### B MP, BNP ####[facility] Fiserznvqs9[address] [place], [place] [address]Dr. Kalie Bess CO2 [Moles/Vol] 36.0 mmol/L Critically high 21.0-32.0 [facility] Comment on above: Performed By: #### B MP, BNP ####[facility] Aofbalpbkh579243 [address] [place], [place] [address]Dr. Kalie Bess Creatinine [Mass/Vol] 1.64 mg/dL Critically high 0.55-1.02 [facility] Comment on above: Performed By: #### B MP, BNP ####[facility] Jcvcrykuwq515[address] [place], [place] [address]Dr. Kalie Bess EGFR-AF TAIWANESE 40 mL/min/1.73m2 Critically low >=60 [facility] Comment on above: Performed By: #### B MP, BNP ####[facility] Rcafoduyfv102[address] [place], [place] [address]Dr. Kalie Shahriar EGFR-NON AF TAIWANESE 33 mL/min/1.73m2 Critically low >=60 [facility] Comment on above: Performed By: #### B MP, BNP ####[facility] Doaxmzlefg1215[address] [place], [place] [address]Dr. Kalie Bess Glucose [Mass/Vol] 279 mg/dL Critically high 74-106 [facility] Comment on above: Performed By: #### B MP, BNP ####[facility] Kdsubkuvci5335[address] [place], [place] [address]Dr. Kalie Bess Potassium [Moles/Vol] 4.1 mmol/L Normal 3.5-5.1 [facility] Comment on above: Performed By: #### B MP, BNP ####[facility] Wdzlqecjvn5867[address] [place], [place] [address]Dr. Kalie Bess Sodium [Moles/Vol] 138 mmol/L Normal 136-145 [facility] Comment on above: Performed By: #### B MP, BNP ####[facility] Akhupldztv8930[address] [place], [place] [address]Dr. Kalie Bess Urea nitrogen [Mass/Vol] 36.0 mg/dL Critically high 7.0-18.0 The [facility] Comment on above: Performed By: #### B MP, BNP ####[facility] Gehvzwcghg0027[address] [place], [place] [address]Dr. Shayyroxie Bess Urea nitrogen/Creatinine [Mass ratio] 22.0 mg/mg Normal The [facility] Comment on above: Performed By: #### B MP, BNP ####[facility] Wylsovrugi6475[address] [place], [place] [address]Dr. Kalie Shahriar BNPon 08-04-2022 Natriuretic peptide B (Bld) [Mass/Vol] 2969.0 pg/mL Critically high <=900.0 The [facility] Comment on above: Performed By: #### B UPS DRIVER ####[facility] Brhbggpuov375[address] [place], [place] [address]Dr. Kalie Shahriar CBC AUTO DIFFon 08-04-2022 BASO # 0.0 103/ul Normal 0.0-0.1 The [facility] Comment on above: Performed By: #### C BC ####[facility] Levjbtzyxn920[address] [place], [place] [address]Dr. Kalie Bess Basophils/100 WBC (Bld) 0.2 % Normal 0.2-2.0 The [facility] Comment on above: Performed By: #### C BC ####[facility] Rkgiwpckpf358[address] [place], [place] [address]Dr. Kalie Shahriar EO # 0.0 103/ul Normal 0.0-0.7 The [facility] Comment on above: Performed By: #### C BC ####[facility] Knyyxusczx246[address] [place], [place] [address]Dr. Kalie Bess Eosinophils/100 WBC (Bld) 0.1 % Critically low 0.9-7.0 The [facility] Comment on above: Performed By: #### C BC ####[facility] Dojodskezp9349[address] [place], [place] [address]Dr. Kalie Bess Erythrocyte distribution width (RBC) [Ratio] 13.9 % Normal 11.0-15.0 The [facility] Comment on above: Performed By: #### C BC ####[facility] [address]eg[address] [place] [address]Dr. Kalie Bess Hematocrit (Bld) [Volume fraction] 33.4 % Critically low 36.0-48.0 The [facility] Comment on above: Performed By: #### C BC ####[facility] Ijgqlheiwq[address] [place], [place] [address]Dr. Shayyroxie Shahriar Hemoglobin (Bld) [Mass/Vol] 10.6 g/dL Critically low 12.0-16.0 The [facility] Comment on above: Performed By: #### C BC ####[facility] Naukgysmqm9305[address] [place], [place] [address]Dr. Kalie Bess IG # 0.12 10e3/ul Critically high 0.00-0.03 [facility] Comment on above: Performed By: #### C BC ####[facility] Xosdkqznzz3035[address] [place], [place] [address]Dr. Kalie Bess IG % 1.0 % Critically high 0.0-0.5 [facility] Comment on above: Performed By: #### C BC ####[facility] Fcnrcnffdw0007[address] [place], [place] [address]Dr. Kalie Bess LYMPH # 1.4 103/ul Normal 1.2-3.8 The [facility] Comment on above: Performed By: #### C BC ####[facility] Qypoqiuiyu5214[address] [place], [place] [address]Dr. Kalie Bess Lymphocytes/100 WBC (Bld) 11.1 % Critically low 20.5-60.0 The [facility] Comment on above: Performed By: #### C BC ####[facility] Wharmsiqne9377[address] [place], [place] [address]Dr. Kalie Bess MANUAL DIFF REQ NO Normal [facility] Comment on above: Performed By: #### C BC ####[facility] Trrzcaskse301[address] [place], [place] [address]Dr. Kalie Bess MCH (RBC) [Entitic mass] 28.4 pg Normal 26.7-34.0 The [facility] Comment on above: Performed By: #### C BC ####[facility] Fudemxuzot[address] [place] [address]Dr. Kalie Bess MCHC (RBC) [Mass/Vol] 31.7 g/dL Normal 29.9-35.2 The [facility] Comment on above: Performed By: #### C BC ####[facility] Jkxvacitzo2560[address] [place], [place] [address]Dr. Kalie Shahriar MCV (RBC) [Entitic vol] 89.5 fL Normal 81.0-99.0 The [facility] Comment on above: Performed By: #### C BC ####[facility] Hszditphio99034[address] [place], [place] [address]Dr. Kalie Bess MONO # 0.3 103/ul Normal 0.3-0.8 The [facility] Comment on above: Performed By: #### C BC ####[facility] Vhpntxeqgz984[address] [place], [place] [address]Dr. Shayyroxie Bess Monocytes/100 WBC (Bld) 2.2 % Normal 1.7-12.0 The [facility] Comment on above: Performed By: #### C BC ####[facility] Gxnokewwir120[address] [place], [place] [address]Dr. Kalie Shahriar NEUT # 10.8 103/ul Critically high 1.4-6.5 The [facility] Comment on above: Performed By: #### C BC ####[facility] Lqfkovqhjp6227[address] [place], [place] [address]Dr. Kalie Bess Neutrophils/100 WBC (Bld) 85.4 % Critically high 43.0-75.0 The [facility] Comment on above: Performed By: #### C BC ####[facility] Byzfdossnl3411[address] [place], [place] [address]Dr. Shayyroxie Bess Platelet mean volume (Bld) [Entitic vol] 11.9 fL Normal 9.5-13.5 The [facility] Comment on above: Performed By: #### C BC ####[facility] [address]yffd[address] [place] [id number]. Kalie Bess PLT 256 103/ul Normal 150-450 [facility] Comment on above: Performed By: #### C BC ####[facility] Panrxygdcp5[address] [place] [id number]. Kalie Bess RBC 3.73 106/ul Critically low 4.20-5.40 [facility] Comment on above: Performed By: #### C BC ####[facility] Hzyfrqnvap14[address] [place] [id number]. Kalie Bess WBC 12.6 103/ul Critically high 4.0-11.0 [facility] Comment on above: Performed By: #### C BC ####[facility] Bwnmpvtkhn2416[address] [place], [place] [address]Dr. Kalie Bess PH, BODY FLUIDon 08-04-2022 pH, Body Fluid 7.7 Normal Not Estab. The [facility] Comment on above: Result Comment: The reference interval(s) and other method performance specificationshave not been established for this body fluid. The test result must beintegrated into the clinical context for interpretation. Performed By: #### B DYFLPH ####[facility] Gttaytiokg8232[address] [place], [place] [address]Dr. Kalie Shahriar POINT OF CARE GLUCOSEon 07-26 Glucose [Mass/Vol] 355 mg/dL Critically high 74-106 [facility] Comment on above: Performed By: #### P OCGLUC ####[facility] Jkuyatwohi9289[address] [place], [place] [address]Dr. Kalie Bess Glucose [Mass/Vol] 405 mg/dL Critically high 74-106 [facility] Comment on above: Performed By: #### P OCGLUC ####[facility] Awlpnsjktj927[address] [place], [place] [address]Dr. Kalie Bess Glucose [Mass/Vol] 351 mg/dL Critically high 74-106 [facility] Comment on above: Performed By: #### P OCGLUC ####[facility] Fjivhsoguf1401[address] [place], [place] [address]Dr. Kalie Bess PROF CHEM 8 (BAS METB)on Anion gap [Moles/Vol] 10.1 mmol/L Normal [facility] Comment on above: Performed By: #### B MP ####[facility] Feseesxrww7899[address] [place], [place] [address]Dr. Shayyroxie Shahriar Calcium [Mass/Vol] 8.6 mg/dL Normal 8.5-10.1 [facility] Comment on above: Performed By: #### B MP ####[facility] Umzsqklkve267[address] [place], [place] [address]Dr. Kalie Bess Chloride [Moles/Vol] 99 mmol/L Normal 98-107 [facility] Comment on above: Performed By: #### B MP ####[facility] Ievajzfbke411[address] [place], [place] [address]Dr. Kalie Bess CO2 [Moles/Vol] 33.0 mmol/L Critically high 21.0-32.0 [facility] Comment on above: Performed By: #### B MP ####[facility] Atdycbmnhn645[address] [place], [place] [address]Dr. Kalie Bess Creatinine [Mass/Vol] 1.54 mg/dL Critically high 0.55-1.02 [facility] Comment on above: Performed By: #### B MP ####[facility] Xwrcjfabln235[address] [place], [place] [address]Dr. Kalie Bess EGFR-AF TAIWANESE 43 mL/min/1.73m2 Critically low >=60 [facility] Comment on above: Performed By: #### B MP ####[facility] Yqoommlcvt475[address] [place], [place] [address]Dr. Kalie Bess EGFR-NON AF TAIWANESE 36 mL/min/1.73m2 Critically low >=60 [facility] Comment on above: Performed By: #### B MP ####[facility] Tjrbcgjhgm1420[address] [place], [place] [address]Dr. Kalie Bess Glucose [Mass/Vol] 264 mg/dL Critically high 74-106 [facility] Comment on above: Performed By: #### B MP ####[facility] Vltyjrfuey1845[address] [place], [place] [address]Dr. Kalie Bess Potassium [Moles/Vol] 4.1 mmol/L Normal 3.5-5.1 The [facility] Comment on above: Performed By: #### B MP ####[facility] Phrxqoyrer[address] [place] [address]Dr. Kalie Bess Sodium [Moles/Vol] 138 mmol/L Normal 136-145 [facility] Comment on above: Performed By: #### B MP ####[facility] Znjodtrgaz6977[address] [place], [place] [address]Dr. Kalie Bess Urea nitrogen [Mass/Vol] 27.0 mg/dL Critically high 7.0-18.0 [facility] Comment on above: Performed By: #### B MP ####[facility] Ptzvgwudyh9905[address] [place], [place] [address]Dr. Kalie Shahriar Urea nitrogen/Creatinine [Mass ratio] 17.5 mg/mg Normal The [facility] Comment on above: Performed By: #### B MP ####[facility] Akinlsxldb110[address] [place], [place] [address]Dr. Kalie Bess XR CHEST 2 Von 08-04-2022 XR CHEST 2 V Normal The [facility] CBC AUTO DIFFon 08-03-2022 BASO # 0.1 103/ul Normal 0.0-0.1 [facility] Comment on above: Performed By: #### C BC ####[facility] Mthanajtxe7177[address] [place], [place] [address]Dr. Shayyroxie Shahriar Basophils/100 WBC (Bld) 0.4 % Normal 0.2-2.0 The [facility] Comment on above: Performed By: #### C BC ####[facility] Lekaoukfki[address] [place], [place] [address]Dr. Shayyroxie Shahriar EO # 0.6 103/ul Normal 0.0-0.7 The [facility] Comment on above: Performed By: #### C BC ####[facility] Utejrxpwvz4616[address] [place], [place] [address]Dr. Kalie Bess Eosinophils/100 WBC (Bld) 4.3 % Normal 0.9-7.0 The [facility] Comment on above: Performed By: #### C BC ####[facility] Rleovykuqu[address] [place] [address]Dr. Kalie Bess Erythrocyte distribution width (RBC) [Ratio] 14.2 % Normal 11.0-15.0 [facility] Comment on above: Performed By: #### C BC ####[facility] Yijfhltkhd4520[address] [place], [place] [address]Dr. Kalie Bess Hematocrit (Bld) [Volume fraction] 32.1 % Critically low 36.0-48.0 [facility] Comment on above: Performed By: #### C BC ####[facility] Ryuqsgfrgi129[address] [place], [place] [address]Dr. Kalie Bess Hemoglobin (Bld) [Mass/Vol] 10.3 g/dL Critically low 12.0-16.0 [facility] Comment on above: Performed By: #### C BC ####[facility] Mtoyinqmtc499[address] [place], [place] [address]Dr. Kalie Bess IG # 0.06 10e3/ul Critically high 0.00-0.03 [facility] Comment on above: Performed By: #### C BC ####[facility] Monirbalfq2880[address] [place], [place] [address]Dr. Kalie Bess IG % 0.4 % Normal 0.0-0.5 [facility] Comment on above: Performed By: #### C BC ####[facility] Kdnnqzdyoj[address] [place], [place] [address]Dr. Kalie Bess LYMPH # 3.0 103/ul Normal 1.2-3.8 The [facility] [place] Comment on above: Performed By: #### C BC ####[facility] [place] Soesdycrys[address] [place], [place] [address]Dr. Kalie Bess Lymphocytes/100 WBC (Bld) 21.0 % Normal 20.5-60.0 [facility] Comment on above: Performed By: #### C BC ####[facility] [place] Kjvflrvysx[address] [place], [place] [address]Dr. Kalie Bess MANUAL DIFF REQ NO Normal [facility] Comment on above: Performed By: #### C BC ####[facility] [place] Pvajkltyud22[address] [place] [id number]. Kalie Bess MCH (RBC) [Entitic mass] 28.9 pg Normal 26.7-34.0 The [facility] [place] Comment on above: Performed By: #### C BC ####[facility] Rugwxphtmm0728 [place] [id number]. Kalie Bess MCHC (RBC) [Mass/Vol] 32.1 g/dL Normal 29.9-35.2 The [facility] Comment on above: Performed By: #### C BC ####[facility] Sdopeuwevt5836 [place] [address]Dr. Kalie Shahriar MCV (RBC) [Entitic vol] 89.9 fL Normal 81.0-99.0 The [facility] [place] Comment on above: Performed By: #### C BC ####[facility] [place] Jueatpthmd[address] [place], [place] [address]Dr. Kalie Bess MONO # 1.0 103/ul Critically high 0.3-0.8 The [facility] Comment on above: Performed By: #### C BC ####[facility] Rdrsgegnno667743 [address] [place], [place] [address]Dr. Shayyroxie Bess Monocytes/100 WBC (Bld) 6.9 % Normal 1.7-12.0 The [facility] [place] Comment on above: Performed By: #### C BC ####[facility] Wnqyhtjmih[address] [place], [place] [address]Dr. Kalie Bess NEUT # 9.5 103/ul Critically high 1.4-6.5 The [facility] Comment on above: Performed By: #### C BC ####[facility] [place] Sgeiveuckm[address] [place], [place] [id number] Shayyroxie Bess Neutrophils/100 WBC (Bld) 67.0 % Normal 43.0-75.0 The [facility] [place] Comment on above: Performed By: #### C BC ####[facility] Bnsvymabki9937 [place] [id number]. Kalie Bess Platelet mean volume (Bld) [Entitic vol] 11.6 fL Normal 9.5-13.5 The [facility] Comment on above: Performed By: #### C BC ####[facility] [place] Kpqnwamvuw7422 [place] [id number]. Kalie Bess PLT 227 103/ul Normal 150-450 [facility] Comment on above: Performed By: #### C BC ####[facility] Qockgawiyg7358 [place], [place] [address]Ak. Kalie Bess RBC 3.57 106/ul Critically low 4.20-5.40 [facility] Comment on above: Performed By: #### C BC ####[facility] Lvlhawlhbs7673 [place] [id number]. Kalie Bess WBC 14.1 103/ul Critically high 4.0-11.0 [facility] Comment on above: Performed By: #### C BC ####[facility] Zcvxuojkrn1207 [place] [id number]. Shayyroxie Shahriar POINT OF CARE GLUCOSEon Glucose [Mass/Vol] 340 mg/dL Critically high 74-106 [facility] Comment on above: Performed By: #### P OCGLUC ####[facility] Kjdbuowdrr7093 [place] [address]Dr. Kalie Bess Glucose [Mass/Vol] 270 mg/dL Critically high 74-106 [facility] Comment on above: Performed By: #### P OCGLUC ####[facility] Aulppzcsgh3654 [place] [id number]. Shayyroxie Shahriar Glucose [Mass/Vol] 176 mg/dL Critically high 74-106 [facility] Comment on above: Performed By: #### P OCGLUC ####[facility] Eprpokpqti7019 [place] [id number]. Shayyroxie Bess Glucose [Mass/Vol] 178 mg/dL Critically high -106 [facility] Comment on above: Performed By: #### P OCGLUC ####[facility] Wbpfzvswak6411 [place] [address]Dr. Kalie Bess PROF CHEM 8 (BAS METB)on Anion gap [Moles/Vol] 5.7 mmol/L Normal [facility] Comment on above: Performed By: #### B MP ####[facility] Orptwjtanr01[address] [place], [place] [address]Dr. Kalie Bess Calcium [Mass/Vol] 8.4 mg/dL Critically low 8.5-10.1 Th e [facility] Comment on above: Performed By: #### B MP ####[facility] Sovmzuyoay87[address] [place], [place] [address]Dr. Kalie Bess Chloride [Moles/Vol] 100 mmol/L Normal 98-107 [facility] Comment on above: Performed By: #### B MP ####[facility] Ilabdcaext[address] [place], [place] [address]Dr. Kalie Bess CO2 [Moles/Vol] 34.0 mmol/L Critically high 21.0-32.0 [facility] Comment on above: Performed By: #### B MP ####[facility] Xusjlqirmu138[address] [place], [place] [address]Dr. Kalie Bess Creatinine [Mass/Vol] 1.25 mg/dL Critically high 0.55-1.02 [facility] Comment on above: Performed By: #### B MP ####[facility] Teliaklukf[address] [place], [place] [address]Dr. Kalie Bess EGFR-AF TAIWANESE 55 mL/min/1.73m2 Critically low >=60 [facility] Comment on above: Performed By: #### B MP ####[facility] [place] Yhkgzjkiyf[address] [place], [place] [address]Dr. Kalie Bess EGFR-NON AF TAIWANESE 45 mL/min/1.73m2 Critically low >=60 [facility] Comment on above: Performed By: #### B MP ####[facility] Imsophcxrq314[address] [place], [place] [address]Dr. Kalie Bess Glucose [Mass/Vol] 193 mg/dL Critically high 74-106 [facility] Comment on above: Performed By: #### B MP ####[facility] Lxfyztgsht37[address] [place], [place] [address]Dr. Kalie Bess Potassium [Moles/Vol] 3.7 mmol/L Normal 3.5-5.1 [facility] Comment on above: Performed By: #### B MP ####[facility] Pjhqjcvwyy8234 [place] [address]Dr. Kalie Bess Sodium [Moles/Vol] 136 mmol/L Normal 136-145 The [facility] Comment on above: Performed By: #### B MP ####[facility] Ghvmvlsgln6957 [place] [address]Dr. Kalie Bess Urea nitrogen [Mass/Vol] 24.0 mg/dL Critically high 7.0-18.0 [facility] Comment on above: Performed By: #### B MP ####[facility] Vfufovsnsj8[address] [place], [place] [address]Dr. Kalie Shahriar Urea nitrogen/Creatinine [Mass ratio] 19.2 mg/mg Normal The [facility] Comment on above: Performed By: #### B MP ####[facility] Wirecibwmp310[address] [place], [place] [address]Dr. Kalie Bess XR CHEST 2 Von 08-03-2022 XR CHEST [address] [facility] CBC AUTO DIFFon 08-02-2022 BASO # 0.1 103/ul Normal 0.0-0.1 The [facility] Comment on above: Performed By: #### C BC ####[facility] Rlkkwsnwnf9425 [place] [address]Dr. Kalie Shahriar Basophils/100 WBC (Bld) 0.4 % Normal 0.2-2.0 The [facility] Comment on above: Performed By: #### C BC ####[facility] Pvlwlsunzl9[address] [place], [place] [address]Dr. Kalie Shahriar EO # 0.5 103/ul Normal 0.0-0.7 The [facility] Comment on above: Performed By: #### C BC ####[facility] Njnyikhhpu7315 [place] [address]Dr. Shayyroxie Shahriar Eosinophils/100 WBC (Bld) 4.0 % Normal 0.9-7.0 The [facility] [place] Comment on above: Performed By: #### C BC ####[facility] Favdhbgxgn6749 [place] [address]Dr. Kalie Bess Erythrocyte distribution width (RBC) [Ratio] 14.1 % Normal 11.0-15.0 The [facility] Comment on above: Performed By: #### C BC ####[facility] Utgwfglqee0734 [place] [address]Dr. Kalie Bess Hematocrit (Bld) [Volume fraction] 32.4 % Critically low 36.0-48.0 [facility] Comment on above: Performed By: #### C BC ####[facility] Gtmmsvqlvk8751 [place] [address]Dr. Kalie Bess Hemoglobin (Bld) [Mass/Vol] 10.7 g/dL Critically low 12.0-16.0 [facility] Comment on above: Performed By: #### C BC ####[facility] Vitrkrvfgr[address] [place], [place] [address]Dr. Kalie Bess IG # 0.08 10e3/ul Critically high 0.00-0.03 [facility] Comment on above: Performed By: #### C BC ####[facility] Sbnjmemdin5[address] [place], [place] [address]Dr. Kalie Bess IG % 0.6 % Critically high 0.0-0.5 [facility] Comment on above: Performed By: #### C BC ####[facility] Bztxtcvusk47[address] [place], [place] [address]Dr. Shayyroxie Bess LYMPH # 2.9 103/ul Normal 1.2-3.8 The [facility] Comment on above: Performed By: #### C BC ####[facility] Gcrvpulcnm[address] [place], [place] [address]Dr. Shayyroxie Bess Lymphocytes/100 WBC (Bld) 21.3 % Normal 20.5-60.0 The [facility] Comment on above: Performed By: #### C BC ####[facility] Mzgpzvtujd47[address] [place], [place] [address]Dr. Kalie Shahriar MANUAL DIFF REQ NO Normal The [facility] Comment on above: Performed By: #### C BC ####[facility] Groaiygagk1539 [place] [id number]. Kalie Bess MCH (RBC) [Entitic mass] 28.8 pg Normal 26.7-34.0 The [facility] [place] Comment on above: Performed By: #### C BC ####[facility] Yzfjssvtbb4254 [place] [id number]. Kalie Bess MCHC (RBC) [Mass/Vol] 33.0 g/dL Normal 29.9-35.2 The [facility] Comment on above: Performed By: #### C BC ####[facility] [place] Kkbdlprwvp8195 [place] [id number]. Kalie Bess MCV (RBC) [Entitic vol] 87.3 fL Normal 81.0-99.0 The [facility] [place] Comment on above: Performed By: #### C BC ####[facility] Vfxoixhtkn6253 [place] [address]Dr. Kalie Shahriar MONO # 0.9 103/ul Critically high 0.3-0.8 The [facility] Comment on above: Performed By: #### C BC ####[facility] Uiehewswwr9515 [place] [address]Dr. Shayyroxie Bess Monocytes/100 WBC (Bld) 6.9 % Normal 1.7-12.0 The [facility] [place] Comment on above: Performed By: #### C BC ####[facility] Qkarywahsb6130 [place] [id number]. Kalie Bess NEUT # 9.0 103/ul Critically high 1.4-6.5 The [facility] Comment on above: Performed By: #### C BC ####[facility] Azqrrjifwd[address] [place], [place] [id number]. Shayyroxie Bess Neutrophils/100 WBC (Bld) 66.8 % Normal 43.0-75.0 The [facility] Comment on above: Performed By: #### C BC ####[facility] Kitfctzpsp[address] [place], [place] [id number]. Kalie Bess Platelet mean volume (Bld) [Entitic vol] 11.6 fL Normal 9.5-13.5 The [facility] Comment on above: Performed By: #### C BC ####[facility] Ueudotxgoa7465 [place] [id number]. Kalie Bess PLT 241 103/ul Normal 150-450 [facility] Comment on above: Performed By: #### C BC ####[facility] Pqyiqitaly8117 [place] [id number]. Kalie Bess RBC 3.71 106/ul Critically low 4.20-5.40 [facility] Comment on above: Performed By: #### C BC ####[facility] Ztotbmrfgi5267 [place] [address]Dr. Kalie Bess WBC 13.4 103/ul Critically high 4.0-11.0 [facility] Comment on above: Performed By: #### C BC ####[facility] Ngladuvvik7481 [place] [phone]. Kalie Bess POINT OF CARE GLUCOSEon Glucose [Mass/Vol] 106 mg/dL Normal 74-106 [facility] Comment on above: Performed By: #### P OCGLUC ####[facility] Dirlgxxcgt6267 [place] [phone]. Kalie Bess Glucose [Mass/Vol] 109 mg/dL Critically high 74-106 [facility] Comment on above: Performed By: #### P OCGLUC ####[facility] Yqvcjiwydo6606 [place] [address]Dr. Kalie Bess Glucose [Mass/Vol] 159 mg/dL Critically high 74-106 [facility] Comment on above: Performed By: #### P OCGLUC ####[facility] Ivagykdpwd8755 [place] [id number]. Kalie Bess Glucose [Mass/Vol] 340 mg/dL Critically high 74-106 [facility] Comment on above: Performed By: #### P OCGLUC ####[facility] Ldhvumbfhj1697 [place] [address]Dr. Kalie Bess PROF CHEM 8 (BAS METB)on Anion gap [Moles/Vol] 6.9 mmol/L Normal [facility] Comment on above: Performed By: #### B MP ####[facility] Nofsgzxiyn8399 [place] [id number]. Kalie Bess Calcium [Mass/Vol] 8.0 mg/dL Critically low 8.5-10.1 Th e [facility] Comment on above: Performed By: #### B MP ####[facility] Wgyxndvwbd7959 [place] [id number]. Shayyroxie Shahriar Chloride [Moles/Vol] 96 mmol/L Critically low 98-107 [facility] Comment on above: Performed By: #### B MP ####[facility] Mwrjiawtcx6925 [place] [id number]. Shayyroxie Shahriar CO2 [Moles/Vol] 33.7 mmol/L Critically high 21.0-32.0 [facility] Comment on above: Performed By: #### B MP ####[facility] Wtvpwtsrby[address] [place], [place] [address]Dr. Kalie Bess Creatinine [Mass/Vol] 1.35 mg/dL Critically high 0.55-1.02 [facility] Comment on above: Performed By: #### B MP ####[facility] Mgzugwhldo3055 [place] [address]Dr. Shayyroxie Shahriar EGFR-AF TAIWANESE 50 mL/min/1.73m2 Critically low >=60 [facility] Comment on above: Performed By: #### B MP ####[facility] Imczkcxkti[address] [place], [place] [address]Dr. Kalie Bess EGFR-NON AF TAIWANESE 41 mL/min/1.73m2 Critically low >=60 [facility] Comment on above: Performed By: #### B MP ####[facility] Cpeltgychi3357 [place] [id number]. Kalie Bess Glucose [Mass/Vol] 339 mg/dL Critically high 74-106 [facility] Comment on above: Performed By: #### B MP ####[facility] Rzhabfokau9924 [place] [address]Dr. Kalie Bess Potassium [Moles/Vol] 3.6 mmol/L Normal 3.5-5.1 [facility] Comment on above: Performed By: #### B MP ####[facility] Wqhbzzmgbh3403 [place] [address]Dr. Kalie Bess Sodium [Moles/Vol] 133 mmol/L Critically low 136-145 Th e [facility] Comment on above: Performed By: #### B MP ####[facility] Nowfeyvqjr0968 [place] [address]Dr. Kalie Bess Urea nitrogen [Mass/Vol] 28.0 mg/dL Critically high 7.0-18.0 [facility] Comment on above: Performed By: #### B MP ####[facility] Opjpyovnbi4903 [place] [address]Dr. Kalie Bess Urea nitrogen/Creatinine [Mass ratio] 20.7 mg/mg Normal [facility] Comment on above: Performed By: #### B MP ####[facility] Egwkomfqnm7244 [place] [address]Dr. Kalie Bess XR CHEST 2 Von 08-02-2022 XR CHEST [address] [facility] AMYLASE, BODY FLUIDon 2021 Amylase [Catalytic activity/Vol] 18 U/L Normal [facility] Comment on above: Result Comment: ____ : BODY FLUID TYPE : AMYLASE : : : : : Lymph : 50 - 83 : : : : : Peritoneal : : : Fluid : 88 - 109 : : : : : Saliva : : : (Mixed Glands) : [id number] - [id number] : : : : . Shilo Huston V. Reference Intervals for Adults and Children 2008. Ninth Edition (V9.1) [employer], [facility]; [place]: April 2009.The method performance specifications have not been established forthis test in body fluid. The test result should be integrated intothe clinical context for interpretation. Performed By: #### A MYBODY ####[facility] Yyjcwhtpcw[address] [place], [place] [address]Dr. Kalie Bess CBC AUTO DIFFon 08-01-2022 BASO # 0.0 103/ul Normal 0.0-0.1 [facility] Comment on above: Performed By: #### C BC ####[facility] Dcuxzizfyr[address] [place], [place] [address]Dr. Kalie Bess Basophils/100 WBC (Bld) 0.3 % Normal 0.2-2.0 [facility] Comment on above: Performed By: #### C BC ####[facility] Osnnilvwdm[address] [place], [place] [address]Dr. Kalie Bess EO # 0.4 103/ul Normal 0.0-0.7 [facility] Comment on above: Performed By: #### C BC ####[facility] Aikutmhtwk87[address] [place], [place] [address]Dr. Kalie Bess Eosinophils/100 WBC (Bld) 3.2 % Normal 0.9-7.0 The [facility] Comment on above: Performed By: #### C BC ####[facility] Mzpudhzmox[address] [place], [place] [address]Dr. Kalie Bess Erythrocyte distribution width (RBC) [Ratio] 14.0 % Normal 11.0-15.0 The [facility] Comment on above: Performed By: #### C BC ####[facility] Xhvipaunzq[address] [place], [place] [address]Dr. Kalie Bess Hematocrit (Bld) [Volume fraction] 34.0 % Critically low 36.0-48.0 [facility] Comment on above: Performed By: #### C BC ####[facility] Kesuasuqjq8221 [place] [id number]. Kalie Bess Hemoglobin (Bld) [Mass/Vol] 10.9 g/dL Critically low 12.0-16.0 [facility] Comment on above: Performed By: #### C BC ####[facility] Ieqwqsueyz9590 [place] [id number]. Kalie Bess IG # 0.11 10e3/ul Critically high 0.00-0.03 [facility] Comment on above: Performed By: #### C BC ####[facility] Udwbfvsfek6096 [place] [address]Dr. Kalie Bess IG % 0.8 % Critically high 0.0-0.5 [facility] Comment on above: Performed By: #### C BC ####[facility] Gmakucpfuj5315 [place] [address]Dr. Kalie Shahriar LYMPH # 3.2 103/ul Normal 1.2-3.8 The [facility] Comment on above: Performed By: #### C BC ####[facility] Icbpmvdhxo6115 [place] [address]Dr. Kalie Bess Lymphocytes/100 WBC (Bld) 24.6 % Normal 20.5-60.0 [facility] Comment on above: Performed By: #### C BC ####[facility] Hovqrdskfb7111 [place] [address]Dr. Kalie Bess MANUAL DIFF REQ NO Normal [facility] Comment on above: Performed By: #### C BC ####[facility] Pkckutctlc2731 [place] [id number]. Kalie Bess MCH (RBC) [Entitic mass] 28.3 pg Normal 26.7-34.0 The [facility] Comment on above: Performed By: #### C BC ####[facility] Tzzqtlngls9020 [place] [id number]. Kalie Bess MCHC (RBC) [Mass/Vol] 32.1 g/dL Normal 29.9-35.2 [facility] Comment on above: Performed By: #### C BC ####[facility] Zdjhnyfoms4862 [place] [id number]. Kalie Bess MCV (RBC) [Entitic vol] 88.3 fL Normal 81.0-99.0 The [facility] Comment on above: Performed By: #### C BC ####[facility] Prgvynxfyv8364 [place] [id number]. Kalie Bess MONO # 0.8 103/ul Normal 0.3-0.8 The [facility] Comment on above: Performed By: #### C BC ####[facility] Sjfuktpthr7969 [place] [id number]. Kalie Bess Monocytes/100 WBC (Bld) 5.8 % Normal 1.7-12.0 The [facility] Comment on above: Performed By: #### C BC ####[facility] Ahyuujvnva[address] [place], [place] [id number]. Kalie Bess NEUT # 8.5 103/ul Critically high 1.4-6.5 The [facility] Comment on above: Performed By: #### C BC ####[facility] [place] Ujnkyvpxed[address] [place], [place] [id number]. Kalie Bess Neutrophils/100 WBC (Bld) 65.3 % Normal 43.0-75.0 The [facility] Comment on above: Performed By: #### C BC ####[facility] [place] Dgtlitvojs[address] [place], [place] [id number]. Kalie Bess Platelet mean volume (Bld) [Entitic vol] 11.5 fL Normal 9.5-13.5 The [facility] Comment on above: Performed By: #### C BC ####[facility] [place] Wuhgjjpjoe20[address] [place] [id number]. Kalie Bess PLT 256 103/ul Normal 150-450 The [facility] [place] Comment on above: Performed By: #### C BC ####[facility] Qpyinftxnf7675 [place] [address]Dr. Kalie Shahriar RBC 3.85 106/ul Critically low 4.20-5.40 The [facility] Comment on above: Performed By: #### C BC ####[facility] Lmyfoelwek5642 [place], [place] [address]Gp. Kalie Bess WBC 13.0 103/ul Critically high 4.0-11.0 [facility] Comment on above: Performed By: #### C BC ####[facility] Xkixwxwkft4426 [place], [place] [address]Mh. Kalie Bess CELL COUNT BODY FLUIDon 10-0 Clarity, Serous Clear Normal Clear The [facility] Comment on above: Performed By: #### C CBFS ####[facility] Dexvraqbie9488 [place] [id number]. Kalie Bess Color, Serous Colorless Normal The [facility] Comment on above: Result Comment: [place] rless to Pale Yellow/Straw Performed By: #### C CBFS ####[facility] [place] Celdgwfiwm6586 [place] [id number]. Kalie Bess Comments: Normal The [facility] Comment on above: Performed By: #### C CBFS ####[facility] Srspvlyqhp8772 [place] [address]Dr. Kalie Bess Eosinophils/100 WBC (Bld) 0 % Normal Not Estab. The [facility] Comment on above: Performed By: #### C CBFS ####[facility] Aiuvisjgmb2371 [place] [address]Dr. Kalie Bess Lining Cells, Serous Normal [facility] Comment on above: Performed By: #### C CBFS ####[facility] [place] Bweyoqjzvw2365 [place] [id number]. Kalie Bess Lymphocytes/100 WBC (Bld) 25 % Normal Not Estab. The [facility] Comment on above: Performed By: #### C CBFS ####[facility] [place] Awjgwrvqul2284 [place] [id number]. Kalie Bess Macrophages, Serous 41 % Normal Not Estab. [facility] Comment on above: Performed By: #### C CBFS ####[facility] Qfwwlvtuwn3838 [place] [id number]. Kalie Bess Nucleated Cells, Serous 73 /mm3 Normal 0-499 The [facility] Comment on above: Result Comment: Pleu ral Fluid, with <1000 Nucleated cells/uL has been associated with transudates while >1000 uL may be seen in exudates. Performed By: #### C CBFS ####[facility] Bmafbbpboy1187 [place] [id number]. Kalie Bess Polys, Serous 34 % Critically high 0-24 [facility] Comment on above: Performed By: #### C CBFS ####[facility] [place] Jhpryryxtp0635 [place] [id number]. Kalie Bess RBC (Bld) [#/Vol] 0 10*6/uL Normal Not Estab. The [facility] Comment on above: Performed By: #### C CBFS ####[facility] Suzzinodeb8964 [place] [id number]. Kalie Bess GLUCOSE BODYFLUIDon 08-01-20 22 Glucose, Body Fluid 209 mg/dL Normal [facility] Comment on above: Result Comment: ____ : [...] - 288 : : : : . Isabella W, Shilo V. Reference Intervals for Adults and Children 2007. Ninth edition (V9.1) [facility]; [place]: April 2009.The reference intervals and other method performance specificationshave not been established for this test. The test result should beintegrated into the clinical context for interpretation. Performed By: #### B FGLUC ####[address] Kalie Bess LACTIC ACID DEHYDROGENASE (L D), BODY FLUon 08-01-2022 LD, Body Fluid 127 IU/L Normal The [facility] Comment on above: Result Comment: ____ : [...] 2008. Ninth Edition (V9.1) [employer], [facility]; [place]: April 2009.The reference intervals and other method performance specificationshave not been established for this test. The test result should beintegrated into the clinical context for interpretation. Performed By: #### L BF ####[address]Cassie Bess POINT OF CARE GLUCOSE 10-0 Glucose [Mass/Vol] 322 mg/dL Critically high 74-106 [facility] Comment on above: Performed By: #### P OCGLUC ####[facility] Bhrtrcumyw[address] [place], [place] [address]Dr. Kalie Bess Glucose [Mass/Vol] 299 mg/dL Critically high 74-106 [facility] Comment on above: Performed By: #### P OCGLUC ####[facility] Dmrlselsxc4[address] [place], [place] [address]Dr. Shayyroxie Bess Glucose [Mass/Vol] 306 mg/dL Critically high 74-106 [facility] Comment on above: Performed By: #### P OCGLUC ####[facility] Fmmuvtrwhx35[address] [place], [place] [address]Dr. Kalie Bess Glucose [Mass/Vol] 339 mg/dL Critically high 74-106 [facility] Comment on above: Performed By: #### P OCGLUC ####[facility] [place] Ncnkntdioi[address] [place], [place] [address]Dr. Kalie Bess PROF CHEM 8 (BAS METB)on Anion gap [Moles/Vol] 6.3 mmol/L Normal [facility] Comment on above: Performed By: #### B MP ####[facility] Huuaczwlvr[address] [place], [place] [address]Dr. Kalie Bess Calcium [Mass/Vol] 8.0 mg/dL Critically low 8.5-10.1 [facility] Comment on above: Performed By: #### B MP ####[facility] Uvcpcvtwve068[address] [place], [place] [address]Dr. Kalie Bess Chloride [Moles/Vol] 97 mmol/L Critically low 98-107 [facility] Comment on above: Performed By: #### B MP ####[facility] [place] Venpnlvoie8[address] [place], [place] [address]Dr. Kalie Bess CO2 [Moles/Vol] 35.6 mmol/L Critically high 21.0-32.0 [facility] Comment on above: Performed By: #### B MP ####[facility] Umzhqbidge[address] [place], [place] [address]Dr. Kalie Bess Creatinine [Mass/Vol] 1.50 mg/dL Critically high 0.55-1.02 [facility] Comment on above: Performed By: #### B MP ####[facility] Rppllftxgm1257 [place] [address]Dr. Kalie Bess EGFR-AF TAIWANESE 44 mL/min/1.73m2 Critically low >=60 [facility] Comment on above: Performed By: #### B MP ####[facility] [place] Ttobfwusbh6[address] [place], [place] [address]Dr. Kalie Bess EGFR-NON AF TAIWANESE 37 mL/min/1.73m2 Critically low >=60 [facility] Comment on above: Performed By: #### B MP ####[facility] Pajjqymiyx6916[address] [place], [place] [address]Dr. Kalie Bess Glucose [Mass/Vol] 303 mg/dL Critically high 74-106 [facility] Comment on above: Performed By: #### B MP ####[facility] Kzfyevrezm[address] [place], [place] [address]Dr. Kalie Bess Potassium [Moles/Vol] 3.0 mmol/L Critically low 3.5-5.1 [facility] Comment on above: Performed By: #### B MP ####[facility] Xdgknltnqe[address] [place], [place] [address]Dr. Kalie Bess Sodium [Moles/Vol] 137 mmol/L Normal 136-145 [facility] Comment on above: Performed By: #### B MP ####[facility] Fvgfozlmhu4[address] [place], [place] [address]Dr. Kalie Bess Urea nitrogen [Mass/Vol] 27.0 mg/dL Critically high 7.0-18.0 [facility] Comment on above: Performed By: #### B MP ####[facility] Bldkxmhukj4989[address] [place], [place] [address]Dr. Kalie Bess Urea nitrogen/Creatinine [Mass ratio] 18.0 mg/mg Normal [facility] Comment on above: Performed By: #### B MP ####[facility] Qvtniuofdv069[address] [place], [place] [address]Dr. Kalie Bess PROTEIN, TOTAL, BODY FLUIDon 08-01-2022 Protein, Body Fluid 1.4 g/dL Normal [facility] Comment on above: Result Comment: ____ : [...] 2007. Ninth Edition (V9.1) [employer], [facility]; [place]: April 2009.The method performance specifications have not been established forthis test in body fluid. The test result should be integrated intothe clinical context for interpretation. Performed By: #### T PBF ####[facility] [address]lyu[address] [place] [id number]. Kalie Bess XR CHEST 1 Von 08-01-2022 XR CHEST 1 V Normal The [facility] BNPon 07-31-2022 Natriuretic peptide B (Bld) [Mass/Vol] 4467.0 pg/mL Critically high <=900.0 The [facility] Comment on above: Performed By: #### B UPS DRIVER ####[facility] Lpqdjlpspr2990 [place] [id number]. Kalie Bess CBC AUTO DIFFon 07-31-2022 BASO # 0.1 103/ul Normal 0.0-0.1 [facility] Comment on above: Performed By: #### C BC ####[facility] [place] Jbpnzovjlp3343 [place] [id number]. Shayyroxie Bess Basophils/100 WBC (Bld) 0.5 % Normal 0.2-2.0 The [facility] [place] Comment on above: Performed By: #### C BC ####[facility] [place] Pnuotbqwny[address] [place], [place] [address]Dr. Shayyroxie Bess EO # 0.4 103/ul Normal 0.0-0.7 The [facility] Comment on above: Performed By: #### C BC ####[facility] [place] Rwwtmwtxep[address] [place], [place] [address]Dr. Shayyroxie Bess Eosinophils/100 WBC (Bld) 2.7 % Normal 0.9-7.0 The [facility] Comment on above: Performed By: #### C BC ####[facility] [place] Koaqdyyigi[address] [place], [place] [address]Dr. Kalie Bess Erythrocyte distribution width (RBC) [Ratio] 13.9 % Normal 11.0-15.0 [facility] Comment on above: Performed By: #### C BC ####[facility] Wxetmxyfcp[address] [place], [place] [address]Dr. Kalie Bess Hematocrit (Bld) [Volume fraction] 31.6 % Critically low 36.0-48.0 [facility] Comment on above: Performed By: #### C BC ####[facility] [place] Xcxdgnjndl[address] [place], [place] [address]Dr. Kalie Bess Hemoglobin (Bld) [Mass/Vol] 10.1 g/dL Critically low 12.0-16.0 The [facility] Comment on above: Performed By: #### C BC ####[facility] [place] Qqptcrhjjo367[address] [place], [place] [address]Dr. Kalie Bess IG # 0.15 10e3/ul Critically high 0.00-0.03 The [facility] Comment on above: Performed By: #### C BC ####[facility] Qlbcdxdfgm4074 [place] [id number]. Kalie Bess IG % 1.1 % Critically high 0.0-0.5 [facility] Comment on above: Performed By: #### C BC ####[facility] [place] Pzgjrbuzaf7126 [place] [address]Dr. Kalie Bess LYMPH # 3.5 103/ul Normal 1.2-3.8 The [facility] Comment on above: Performed By: #### C BC ####[facility] Lltczrhkwb6551 [place] [address]Dr. Kalie Bess Lymphocytes/100 WBC (Bld) 26.3 % Normal 20.5-60.0 [facility] Comment on above: Performed By: #### C BC ####[facility] Qhsqcxewbr[address] [place], [place] [address]Dr. Kalie Bess MANUAL DIFF REQ NO Normal [facility] Comment on above: Performed By: #### C BC ####[facility] Avaaqeqony5245 [place] [address]Dr. Kalie Bess MCH (RBC) [Entitic mass] 28.5 pg Normal 26.7-34.0 [facility] Comment on above: Performed By: #### C BC ####[facility] Scfywjwcfa7324 [place] [address]Dr. Kalie Bess MCHC (RBC) [Mass/Vol] 32.0 g/dL Normal 29.9-35.2 [facility] Comment on above: Performed By: #### C BC ####[facility] Szurewrkzx2703 [place] [address]Dr. Kalie Bess MCV (RBC) [Entitic vol] 89.3 fL Normal 81.0-99.0 The [facility] Comment on above: Performed By: #### C BC ####[facility] Tncqrcruww2068 [place] [address]Dr. Kalie Bess MONO # 1.1 103/ul Critically high 0.3-0.8 [facility] Comment on above: Performed By: #### C BC ####[facility] Ghyblrvtvk1019 [place] [address]Dr. Kalie Bess Monocytes/100 WBC (Bld) 8.4 % Normal 1.7-12.0 The [facility] Comment on above: Performed By: #### C BC ####[facility] [place] Ufphqpmoft5481 [place] [address]Dr. Kalie Bess NEUT # 8.1 103/ul Critically high 1.4-6.5 The [facility] Comment on above: Performed By: #### C BC ####[facility] Zjzguedvdl0367 [place] [address]Dr. Kalie Bess Neutrophils/100 WBC (Bld) 61.0 % Normal 43.0-75.0 The [facility] Comment on above: Performed By: #### C BC ####[facility] Aklyswvwvb1359 [place] [address]Dr. Kalie Bess Platelet mean volume (Bld) [Entitic vol] 11.6 fL Normal 9.5-13.5 [facility] Comment on above: Performed By: #### C BC ####[facility] Nraffwlhda8025 [place] [address]Dr. Kalie Bess PLT 248 103/ul Normal 150-450 The [facility] Comment on above: Performed By: #### C BC ####[facility] Hgnollccfd3984 [place] [address]Dr. Kalie Bess RBC 3.54 106/ul Critically low 4.20-5.40 The [facility] Comment on above: Performed By: #### C BC ####[facility] [place] Kytbpaalvn4432 [place] [address]Dr. Kalie Bess WBC 13.3 103/ul Critically high 4.0-11.0 The [facility] Comment on above: Performed By: #### C BC ####[facility] Ohljgtvpgg4741 [place] [address]Dr. Kalie Bess CULTURE STERILE BODY FLUIDon 07-31-2022 CULTURE STERILE BODY FLUID Culture Observations: No growth at 72 hours. Normal The [facility] Comment on above: Performed By: #### S TBFCX ####[facility] Ocmlzwdzyf0872 [place] [address]Dr. Kalie Bess CYTOLOGYon 07-31-2022 SENT TO REF LAB 07/31/22 Normal [facility] Comment on above: Performed By: #### C YTO ####[facility] Nhmrxnzgzj6476 [place] [address]Dr. Kalie Bess ECHOCARDIO M/2D COMPLETEon 1 ECHOCARDIO M/2D COMPLETE Normal [facility] ER URINE PROFILEon Bilirubin Ql (U) Negative Normal NEGATIVE [facility] Comment on above: Performed By: #### U MICRO, ERUR ####[facility] Zmiwaasqsk230[address] [place], [place] [address]Dr. Kalie Bess Clarity (U) CLEAR Normal CLEAR [facility] Comment on above: Performed By: #### U MICRO, ERUR ####[facility] Bilhiaovoo[address] [place], [place] [address]Dr. Kalie Bess Color (U) LT. YELLOW Normal YELLOW [facility] Comment on above: Performed By: #### U MICRO, ERUR ####[facility] Hrzbqlepug[address] [place], [place] [address]Dr. Kalie Bess ERUAHD A micrscopic examination will be performed if indicated. Normal The [facility] Comment on above: Performed By: #### U MICRO, ERUR ####[facility] K[address]kljw[address] [place], [place] [address]Dr. Kalie Bess Glucose Ql (U) 100 mg/dl Abnormal NEGATIVE The [facility] Comment on above: Performed By: #### U MICRO, ERUR ####[facility] Mjvqjulaeb4[address] [place], [place] [address]Dr. Kalie Bess Hemoglobin Ql (U) SMALL Abnormal NEGATIVE The [facility] Comment on above: Performed By: #### U MICRO, ERUR ####[facility] Riquclalqe425[address] [place], [place] [address]Dr. Kalie Bess Ketones Ql (U) Negative Normal NEGATIVE The [facility] Comment on above: Performed By: #### U MICRO, ERUR ####[facility] Dmfjjdvfio2665 [place] [address]Dr. Kalie Bess LEUKOCYTES Negative Normal NEGATIVE The [facility] Comment on above: Performed By: #### U MICRO, ERUR ####[facility] Eeubntdzhs6035 [place] [address]Dr. Kalie Bess Nitrite Ql (U) Negative Normal NEGATIVE The [facility] Comment on above: Performed By: #### U MICRO, ERUR ####[facility] Artnupncie6146 [place] [address]Dr. Kalie Bess pH (U) 5.5 [pH] Normal 5-9 The [facility] Comment on above: Performed By: #### U MICRO, ERUR ####[facility] Xtwipxeypb7127 [place] [address]Dr. Kalie Bess Protein (U) [Mass/Vol] 100 mg/dL Abnormal NEGATIVE/ TRACE The [facility] Comment on above: Performed By: #### U MICRO, ERUR ####[facility] Jpklcpcpbk8588 [place] [address]Dr. Kalie Bess SPEC GRAVITY 1.015 Normal 1.005-<=1.025 The [facility] Comment on above: Performed By: #### U MICRO, ERUR ####[facility] Linlagccys5[address] [place], [place] [address]Dr. Kalie Bess UR MICRO IND INDICATED Normal The [facility] Comment on above: Performed By: #### U MICRO, ERUR ####[facility] Bnsessaoxh1925 [place] [address]Dr. Kalie Bess Urobilinogen Qn (U) 0.2 {Codi'U}/dL Normal 0.2 - 1. 0 The [facility] Comment on above: Performed By: #### U MICRO, ERUR ####[facility] Jjfwwlwbns[address] [place], [place] [address]Dr. Kalie Bess GRAM STAINon 07-31-2022 COMMENTS NO ORGANISMS OBSERVED Normal [facility] Comment on above: Performed By: #### G STAIN ####[facility] Abyupnzrph6044 [place] [address]Dr. Kalie Bess DIPHTHEROIDS Normal The [facility] Comment on above: Performed By: #### G STAIN ####[facility] Bourwmqlsp9840 [place] [address]Dr. Kalie Bess EPITHELIALS Normal The [facility] Comment on above: Performed By: #### G STAIN ####[facility] Zkokiuvmkm0697 [place] [address]Dr. Kalie Bess FUNGAL ELEMENTS Normal The [facility] Comment on above: Performed By: #### G STAIN ####[facility] Ehevlmeocs[address] [place], [place] [address]Dr. Kalie Bess GRAM NEG BACILLI Normal The [facility] Comment on above: Performed By: #### G STAIN ####[facility] Cwyfhqkdmn[address] [place], [place] [address]Dr. Kalie eBss GRAM NEG DIPPLOCOCCI Normal The [facility] Comment on above: Performed By: #### G STAIN ####[facility] Scpklvgwwn174[address] [place], [place] [address]Dr. Kalie Bess GRAM POS BACILLI Normal The [facility] Comment on above: Performed By: #### G STAIN ####[facility] Iuvvpgjvct[address] [place], [place] [address]Dr. Kalie Bess GRAM POSITIVE COCCI Normal The [facility] Comment on above: Performed By: #### G STAIN ####[facility] Sxtfuaxwsz6[address] [place], [place] [address]Dr. Kalie Bess GRAM STAIN SOURCE Pleural Fluid Normal The [facility] Comment on above: Performed By: #### G STAIN ####[facility] Erbwktejys96[address] [place] [address]Dr. Kalie Bess GS_DIPTH Normal The [facility] Comment on above: Performed By: #### G STAIN ####[facility] Whcaqlejdp7[address] [place], [place] [address]Dr. Kalie Bess WBC FEW Normal The [facility] Comment on above: Performed By: #### G STAIN ####[facility] [place] Lrhzkzcrjk[address] [place], [place] [address]Dr. Kalie Bess POINT OF CARE GLUCOSEon 10-0 Glucose [Mass/Vol] 314 mg/dL Critically high 74-106 [facility] Comment on above: Performed By: #### P OCGLUC ####[facility] Hawcxwgizt[address] [place] [address]Dr. Kalie Bess Glucose [Mass/Vol] 190 mg/dL Critically high 74-106 [facility] Comment on above: Performed By: #### P OCGLUC ####[facility] Xxqampiqrr335[address] [place], [place] [address]Dr. Kalie Bess Glucose [Mass/Vol] 271 mg/dL Critically high 74-106 [facility] Comment on above: Performed By: #### P OCGLUC ####[facility] Tvvyduhvpj[address] [place], [place] [address]Dr. Kalie Bess PROF CHEM 8 (BAS METB)on Anion gap [Moles/Vol] 8.1 mmol/L Normal [facility] Comment on above: Performed By: #### B MP ####[facility] Whdqxvbltm[address] [place], [place] [address]Dr. Kalie Bess Calcium [Mass/Vol] 8.2 mg/dL Critically low 8.5-10.1 [facility] Comment on above: Performed By: #### B MP ####[facility] Dsajsidkuz[address] [place], [place] [address]Dr. Kalie Bess Chloride [Moles/Vol] 102 mmol/L Normal 98-107 [facility] Comment on above: Performed By: #### B MP ####[facility] Xcmbxbtqcc[address] [place], [place] [address]Dr. Kalie Bess CO2 [Moles/Vol] 32.2 mmol/L Critically high 21.0-32.0 [facility] Comment on above: Performed By: #### B MP ####[facility] Meyjlyxsnm[address] [place], [place] [address]Dr. Kalie Bess Creatinine [Mass/Vol] 1.25 mg/dL Critically high 0.55-1.02 [facility] Comment on above: Performed By: #### B MP ####[facility] Uprxmstfyt[address] [place] [id number]. Kalie Shahriar EGFR-AF TAIWANESE 55 mL/min/1.73m2 Critically low >=60 [facility] Comment on above: Performed By: #### B MP ####[facility] Tstytgwalx40[address] [place] [id number]. Shayyroxie Shahriar EGFR-NON AF TAIWANESE 45 mL/min/1.73m2 Critically low >=60 [facility] Comment on above: Performed By: #### B MP ####[facility] Vzmdpgclpl[address] [place] [id number]. Kalie Bess Glucose [Mass/Vol] 208 mg/dL Critically high 74-106 [facility] Comment on above: Performed By: #### B MP ####[facility] Oq[address]iaiyeb[address] [place] [address]Dr. Kalie Bess Potassium [Moles/Vol] 3.3 mmol/L Critically low 3.5-5.1 [facility] Comment on above: Performed By: #### B MP ####[facility] Pdyyumjxnl4[address] [place] [address]Dr. Kalie Bess Sodium [Moles/Vol] 139 mmol/L Normal 136-145 [facility] Comment on above: Performed By: #### B MP ####[facility] Nyllfhpkaq[address] [place] [address]Dr. Kalie Bess Urea nitrogen [Mass/Vol] 23.0 mg/dL Critically high 7.0-18.0 [facility] Comment on above: Performed By: #### B MP ####[facility] Tletklibod[address] [place] [address]Dr. Kalie Bess Urea nitrogen/Creatinine [Mass ratio] 18.4 mg/mg Normal [facility] Comment on above: Performed By: #### B MP ####[facility] [place] Xlencaewms[address] [place] [address]Dr. Kalie Bess TROPONIN, HIGH SENSITIVITYon 07-31-2022 HSTROP 19.2 pg/mL Normal 4.0-51.3 [facility] Comment on above: Result Comment: CUT- OFF POINTS HAVE BEEN ESTABLISHED BASED ON THE FOURTH UNIVERSAL DEFINITIONS OF MYOCARDIALINFARCTION. THE UPPER REFERENCE LIMIT (URL) OF TROPONIN, DEFINED THE 99TH PERCENTILE OFcTnI DISTRIBUTION IN A REFERENCE POPULATION, HAS BEEN CONFIRMED THE DECISION THRESHOLDFOR [place] DIAGNOSIS. Performed By: #### H STROPN ####[facility] Ngrbknjogy[address] [place] [address]Dr. Kalie Bess URINE MICROSCOPIC ONLYon BACTERIA TRACE Abnormal NONE SEEN The [facility] Comment on above: Performed By: #### U MICRO, ERUR ####[facility] Xitfrfwjhe[address] [place], [place] [address]Dr. Kalie Bess Bacteria identified Cx Nom (U) NOT INDICATED Normal The [facility] Comment on above: Performed By: #### U MICRO, ERUR ####[facility] Sodtnwfpwl[address] [place], [place] [address]Dr. Kalie Bess CAST NONE SEEN Normal NONE SEEN The [facility] [place] Comment on above: Performed By: #### U MICRO, ERUR ####[facility] Nfdofuioka8[address] [place], [place] [address]Dr. Kalie Bess Crystals LM Nom (Urine sed) NONE SEEN Normal NONE SEEN The [facility] Comment on above: Performed By: #### U MICRO, ERUR ####[facility] [place] Mcyhkbfdka[address] [place], [place] [address]Dr. Kalie Bess Epithelial cells LM Ql (Urine sed) NONE SEEN Normal NONE SEEN /RARE The [facility] Comment on above: Performed By: #### U MICRO, ERUR ####[facility] Einqmdfils[address] [place], [place] [address]Dr. Shayylan Shahriar MUCOUS NONE SEEN Normal NONE SEEN The [facility] [place] Comment on above: Performed By: #### U MICRO, ERUR ####[facility] Venetlkkzd0829[address] [place], [place] [address]Dr. Kalie Bess RBC NONE SEEN Abnormal 0-2 The [facility] Comment on above: Performed By: #### U MICRO, ERUR ####[facility] [place] Shyvnkapto0[address] [place], [place] [address]Dr. Kalie Bess WBC NONE SEEN Normal NONE SEEN The [facility] Comment on above: Performed By: #### U MICRO, ERUR ####[facility] Icsftaeouf[address] [place] [address]Dr. Kalie Bess XR CHEST 1 Von 07-31-2022 XR CHEST 1 V Normal The [facility] XR CHEST 1 V Normal The [facility] ACETONE SERUMon 07-30-2022 ACETONE Negative Normal NEGATIVE The [facility] Comment on above: Performed By: #### A CETON ####[facility] Tpgbbhfuqh280[address] [place], [place] [address]Dr. Kalie Bess BNPon 07-30-2022 Natriuretic peptide B (Bld) [Mass/Vol] 6846.0 pg/mL Critically high <=900.0 The [facility] Comment on above: Performed By: #### L IPA, BNP, HSTROPN, CMP ####[facility] [place] Nlkjhcqohi7[address] [place], [place] [address]Dr. Kalie Bess CBC AUTO DIFFon 07-30-2022 BASO # 0.1 103/ul Normal 0.0-0.1 [facility] Comment on above: Performed By: #### C BC ####[facility] Lotjhyujjj[address] [place], [place] [address]Dr. Kalie Bess Basophils/100 WBC (Bld) 0.6 % Normal 0.2-2.0 The [facility] Comment on above: Performed By: #### C BC ####[facility] Vfrxevsgid[address] [place] [address]Dr. Kalie Bess EO # 0.2 103/ul Normal 0.0-0.7 The [facility] Comment on above: Performed By: #### C BC ####[facility] Gwyfzerzvi4[address] [place], [place] [address]Dr. Kalie Bess Eosinophils/100 WBC (Bld) 1.3 % Normal 0.9-7.0 The [facility] Comment on above: Performed By: #### C BC ####[facility] Eshmulsrar1544[address] [place], [place] [address]Dr. Kalie Bess Erythrocyte distribution width (RBC) [Ratio] 13.9 % Normal 11.0-15.0 [facility] Comment on above: Performed By: #### C BC ####[facility] Siymzdexox[address] [place] [address]DrCassie Bess Hematocrit (Bld) [Volume fraction] 34.9 % Critically low 36.0-48.0 The [facility] Comment on above: Performed By: #### C BC ####[facility] Dmcpkytkzk3[address] [place] [address]DrCassie Bess Hemoglobin (Bld) [Mass/Vol] 11.2 g/dL Critically low 12.0-16.0 The [facility] Comment on above: Performed By: #### C BC ####[facility] Bgedzlhcxo65[address] [place], [place] [address]DrCassie Bess IG # 0.24 10e3/ul Critically high 0.00-0.03 [facility] Comment on above: Performed By: #### C BC ####[facility] Xdgrlhdusx236[address] [place], [place] [address]DrCassie Bess IG % 1.6 % Critically high 0.0-0.5 The [facility] Comment on above: Performed By: #### C BC ####[facility] Bbxlqitaci[address] [place], [place] [address]DrCassie Bess LYMPH # 4.0 103/ul Critically high 1.2-3.8 The [facility] Comment on above: Performed By: #### C BC ####[facility] Qtqsucmygu8818[address] [place], [place] [address]DrCassie Bess Lymphocytes/100 WBC (Bld) 25.8 % Normal 20.5-60.0 The [facility] Comment on above: Performed By: #### C BC ####[facility] Zfivhdpuyy[address] [place], [place] [address]DrCassie Bess MANUAL DIFF REQ NO Normal The [facility] Comment on above: Performed By: #### C BC ####[facility] Vnjabjzmoy[address] [place], [place] [address]DrCassie Bess MCH (RBC) [Entitic mass] 28.6 pg Normal 26.7-34.0 [facility] Comment on above: Performed By: #### C BC ####[facility] Ueyzlxlxqg[address] [place] [address]DrCassie Bess MCHC (RBC) [Mass/Vol] 32.1 g/dL Normal 29.9-35.2 [facility] Comment on above: Performed By: #### C BC ####[facility] Zwwqierepk[address] [place], [place] [address]DrCassie Bess MCV (RBC) [Entitic vol] 89.0 fL Normal 81.0-99.0 The [facility] Comment on above: Performed By: #### C BC ####[facility] Hxrbhvpnhb[address] [place], [place] [address]DrCassie Bess MONO # 1.2 103/ul Critically high 0.3-0.8 The [facility] Comment on above: Performed By: #### C BC ####[facility] Wqxqwofadt[address] [place], [place] [address]DrCassie Bess Monocytes/100 WBC (Bld) 8.1 % Normal 1.7-12.0 The [facility] Comment on above: Performed By: #### C BC ####[facility] Whqjkwjlkn[address] [place], [place] [address]DrCassie Bess NEUT # 9.6 103/ul Critically high 1.4-6.5 The [facility] Comment on above: Performed By: #### C BC ####[facility] Zvgokpxlyy[address] [place], [place] [address]DrCassie Bess Neutrophils/100 WBC (Bld) 62.6 % Normal 43.0-75.0 The [facility] Comment on above: Performed By: #### C BC ####[facility] Tfapuxbqbz[address] [place], [place] [address]DrCassie Bess Platelet mean volume (Bld) [Entitic vol] 11.2 fL Normal 9.5-13.5 The [facility] Comment on above: Performed By: #### C BC ####[facility] Guthkkrbaf[address] [place], [place] [address]DrCassie Bess PLT 308 103/ul Normal 150-450 The [facility] Comment on above: Performed By: #### C BC ####[facility] [address] [place], [place] [address]Fd. Kalie Bess RBC 3.92 106/ul Critically low 4.20-5.40 The [facility] Comment on above: Performed By: #### C BC ####[facility] Wnswfnoogp1565 [place], [place] [address]Es. Kalie Bess WBC 15.4 103/ul Critically high 4.0-11.0 The [facility] Comment on above: Performed By: #### C BC ####[facility] Gxexqsjqpt6[address] [place], [place] [address]Gr. Kalie Bess CT ABD/PELV W CONon 07-30-[address] ABD/PELV W CON Normal The [facility] CTA CHEST WO W CONon 022 CTA CHEST WO W CON Normal The [facility] Covid-19 PCR ([facility])on SARS-CoV-2 (COVID-19) RNA CIPRIANO+probe Ql (Unsp spec) Not detected Normal NOT DETECTED The [facility] Comment on above: Result Comment: When diagnostic [...] for this test is supported by the [place] of Health and Human Service's declaration that [...] be used). Performed By: #### C VDTBH ####[facility] Gnostvbrmw[address] [place] [address]Dr. Kalie Bess LACTATE/LACTIC ACIDon 2021 Lactate [Moles/Vol] 1.5 mmol/L Normal 0.4-1.9 [facility] Comment on above: Performed By: #### L ACT ####[facility] Wkpbrkcvza7[address] [place] [address]Dr. Kalie Bess LIPASEon 07-30-2022 Lipase [Catalytic activity/Vol] 152.0 U/L Normal 73.0-393.0 [facility] Comment on above: Performed By: #### L IPA, BNP, HSTROPN, CMP ####[facility] Jgvuenxebo[address] [place] [address]Dr. Kalie Bess PH VENOUS BLOODon 07-30-2022 PCO2 VENOUS 44.9 mmHg Normal 40.0-52.0 [facility] Comment on above: Performed By: #### P HVEN ####[facility] Ajafmwewvt[address] [place], [place] [address]Dr. Kalie Bess pH VENOUS 7.451 Critically high 7.330-7.430 [facility] Comment on above: Performed By: #### P HVEN ####[facility] Oczdfwvptv[address] [place], [place] [address]Dr. Kalie Bess PROF 14(COMP METB)on 022 Albumin [Mass/Vol] 2.3 g/dL Critically low 3.4-5.0 [facility] Comment on above: Performed By: #### L IPA, BNP, HSTROPN, CMP ####[facility] Pijdbbnvhf46[address] [place], [place] [address]Dr. Kalie Bess Albumin/Globulin [Mass ratio] 0.5 {ratio} Normal [facility] Comment on above: Performed By: #### L IPA, BNP, HSTROPN, CMP ####[facility] Ckqnhrnkhe032[address] [place] [address]Dr. Kalie Bess ALP [Catalytic activity/Vol] 100 U/L Normal 46-116 The [facility] Comment on above: Performed By: #### L IPA, BNP, HSTROPN, CMP ####[facility] Xvvrslwksr5[address] [place] [address]Dr. Kalie Bess ALT [Catalytic activity/Vol] 18 U/L Normal 14-59 The [facility] Comment on above: Performed By: #### L IPA, BNP, HSTROPN, CMP ####[facility] Fjqsouyfkl86[address] [place] [address]Dr. Kalie Bess Anion gap [Moles/Vol] 6.6 mmol/L Normal [facility] Comment on above: Performed By: #### L IPA, BNP, HSTROPN, CMP ####[facility] Sxpjmebcqu[address] [place], [place] [address]Dr. Kalie Bess AST [Catalytic activity/Vol] 10 U/L Critically low 15-37 [facility] Comment on above: Performed By: #### L IPA, BNP, HSTROPN, CMP ####[facility] Tpigkftkwa[address] [place], [place] [address]Dr. Kalie Bess Bilirubin [Mass/Vol] 0.3 mg/dL Normal 0.2-1.0 [facility] Comment on above: Performed By: #### L IPA, BNP, HSTROPN, CMP ####[facility] Sizpalnovn12[address] [place], [place] [address]Dr. Kalie Bess Calcium [Mass/Vol] 8.7 mg/dL Normal 8.5-10.1 [facility] Comment on above: Performed By: #### L IPA, BNP, HSTROPN, CMP ####[facility] Bfpkfksbrd[address] [place], [place] [address]Dr. Kalie Bess Chloride [Moles/Vol] 99 mmol/L Normal 98-107 The [facility] Comment on above: Performed By: #### L IPA, BNP, HSTROPN, CMP ####[facility] Glkvljflre[address] [place], [place] [address]Dr. Kalie Bess CO2 [Moles/Vol] 31.1 mmol/L Normal 21.0-32.0 The [facility] Comment on above: Performed By: #### L IPA, BNP, HSTROPN, CMP ####[facility] Edjqkbzgkk4063 [place] [address]Dr. Kalie Bess Creatinine [Mass/Vol] 1.34 mg/dL Critically high 0.55-1.02 [facility] Comment on above: Performed By: #### L IPA, BNP, HSTROPN, CMP ####[facility] Xtnlnlyauq28[address] [place] [address]Dr. Kalie Bess EGFR-AF TAIWANESE 51 mL/min/1.73m2 Critically low >=60 The [facility] Comment on above: Performed By: #### L IPA, BNP, HSTROPN, CMP ####[facility] Kqvyirqxwf79[address] [place], [place] [address]Dr. Kalie Bess EGFR-NON AF TAIWANESE 42 mL/min/1.73m2 Critically low >=60 The [facility] Comment on above: Performed By: #### L IPA, BNP, HSTROPN, CMP ####[facility] Tzlyieeqcq[address] [place], [place] [address]Dr. Kalie Bess Globulin (S) [Mass/Vol] 4.4 g/dL Normal [facility] Comment on above: Performed By: #### L IPA, BNP, HSTROPN, CMP ####[facility] Paotvahmma93[address] [place], [place] [address]Dr. Kalie Bess Glucose [Mass/Vol] 226 mg/dL Critically high 74-106 [facility] Comment on above: Performed By: #### L IPA, BNP, HSTROPN, CMP ####[facility] Pezfseydcf[address] [place], [place] [address]Dr. Kalie Bess Potassium [Moles/Vol] 3.7 mmol/L Normal 3.5-5.1 [facility] Comment on above: Performed By: #### L IPA, BNP, HSTROPN, CMP ####[facility] Rxsltxjxio183[address] [place], [place] [address]Dr. Kalie Bess Protein [Mass/Vol] 6.7 g/dL Normal 6.4-8.2 The [facility] Comment on above: Performed By: #### L IPA, BNP, HSTROPN, CMP ####[facility] Zielbjhrhx[address] [place] [address]Dr. Kalie Bess Sodium [Moles/Vol] 133 mmol/L Critically low 136-145 Th e [facility] Comment on above: Performed By: #### L IPA, BNP, HSTROPN, CMP ####[facility] Kdycovimfr[address] [place] [address]Dr. Kalie Bess Urea nitrogen [Mass/Vol] 23.0 mg/dL Critically high 7.0-18.0 [facility] Comment on above: Performed By: #### L IPA, BNP, HSTROPN, CMP ####[facility] Mlvsjcdbur8256 [place] [address]Dr. Kalie Bess Urea nitrogen/Creatinine [Mass ratio] 17.2 mg/mg Normal The [facility] Comment on above: Performed By: #### L IPA, BNP, HSTROPN, CMP ####[facility] Jphckvzibn146[address] [place], [place] [address]Dr. Kalie Bess PROTIMEon 07-30-2022 INR Coag (PPP) [Relative time] 1.08 {INR} Normal The [facility] Comment on above: Performed By: #### P TT, PT ####[facility] Irmcbcqgwy[address] [place], [place] [address]Dr. Kalie Bess INR GUIDELINES SEE BELOW Normal The [facility] Comment on above: Result Comment: GABRIELLA RED INR: 2.0 - 3.0 CONDITIONS NOT LISTED BELOW 2.5 - 3.5 FOR PROSTHETIC HEART VALVE REPLACEMENT 2.5 - 3.5 RECURRENT THROMBOSIS Performed By: #### P TT, PT ####[facility] Mztwnxgcdn[address] [place], [place] [address]Dr. Kalie Bess PT Coag (PPP) [Time] 11.6 s Normal 9.0-11.6 The [facility] Comment on above: Performed By: #### P TT, PT ####[facility] Gxlvmfsoux[address] [place], [place] [address]Dr. Kalie Bess PTTon 07-30-2022 aPTT Coag (Bld) [Time] 28.0 s Normal 22.3-36.2 The [facility] Comment on above: Performed By: #### P TT, PT ####[facility] Zhacisaffv28[address] [place], [place] [address]Ub. Kalie Bess TROPONIN, HIGH SENSITIVITYon 07-30-2022 HSTROP 29.4 pg/mL Normal 4.0-51.3 [facility] Comment on above: Result Comment: CUT- OFF POINTS HAVE BEEN ESTABLISHED BASED ON THE [facility] UNIVERSAL DEFINITIONS OF MYOCARDIALINFARCTION. THE UPPER REFERENCE LIMIT (URL) OF TROPONIN, DEFINED THE 99TH PERCENTILE OFcTnI DISTRIBUTION IN A REFERENCE POPULATION, HAS BEEN CONFIRMED THE DECISION THRESHOLDFOR [place] DIAGNOSIS. Performed By: #### H STROPN ####[facility] Usymlvkuyp[address] [place] [id number]. Kalie Bess HSTROP 28.3 pg/mL Normal 4.0-51.3 [facility] [facility] Comment on above: Result Comment: CUT- OFF POINTS HAVE BEEN ESTABLISHED BASED ON THE FOURTH UNIVERSAL DEFINITIONS OF MYOCARDIALINFARCTION. THE UPPER REFERENCE LIMIT (URL) OF TROPONIN, DEFINED THE 99TH PERCENTILE OFcTnI DISTRIBUTION IN A REFERENCE POPULATION, HAS BEEN CONFIRMED THE DECISION THRESHOLDFOR [place] DIAGNOSIS. Performed By: #### L IPA, BNP, HSTROPN, CMP ####[facility] [place] [id number] [id number]. Kalie Bess Outside Recordson 07-25-2022 Outside Records [id number]#1.00C D:127 Normal [facility] Physician Orderon 07-25-2022 Physician Order [id number] 530 [id number]#[id number] D:127 Normal [facility] Encounters Encounter Date Encounter Type Care Provider Facility Start: 04-30-2023 End: 04-30-2023 ambulatory Imad Asaad Other [employer] Other Start: 04-30-2023 Telephone encounter Imad Asaad [facility] Start: 03-19-2023 End: 03-19-2023 ambulatory Imad Asaad Facility:[facility] Start: 03-18-2023 End: 03-18-2023 ambulatory Ayaan Deras Facility:[facility] Start: 03-11-2023 End: 03-11-2023 ambulatory Ayaan Deras Facility:[facility] Start: 02-12-2023 End: 02-13-[address] AYAAN [...] Date Payer Category Payer Self-pay 1970 Unknown [id number] 2.16.84 [id number] 1970 Unknown [id number] 2.16.84 [id number] 1970 Unknown [id number] 2.16.84 [id number] 1970 Unknown [id number] 2.16.84 0.1.397640.3.579.2.593 1971 Unknown [id number] 2.16.84 0.1.725933.3.579.2.593 1971 Unknown [id number] 2.16.84 0.1.051448.3.579.2.593 1971 Unknown [id number] 2.16.84 0.1.828298.3.579.2.593 1971 Unknown [id number] 2.16.84 0.1.925362.3.579.2.593 1971 Unknown [id number] 2.16.84 0.1.516070.3.579.2.593 1971 Unknown [id number] 2.16.84 0.1.705044.3.579.2.593 1971 Unknown [id number] 2.16.84 0.1.940618.3.579.2.593 1971 Unknown [id number] 2.16.84 0.1.238568.3.579.2.593 1971 Unknown [id number] 2.16.84 0.1.663201.3.579.2.593 1971 Unknown [id number] 2.16.84 0.1.231907.3.579.2.593 1959 Unknown [id number] Unknown [id number] 2.16.8 40.1.868954.3.579.2.531 Unknown [id number] 2.16.8 40.1.646815.3.579.2.531 Unknown [id number] 2.16.8 40.1.464361.3.579.2.531 Social History Date Type Detail Facility Sex Assigned At [facility] Other Evaluation note Note Date & Type Note Facility Evaluation note No Information 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 DATE CREATED AUTHOR AUTHOR'S ORGANIZ ATION 03/11/2023 [facility] DATE CREATED AUTHOR AUTHOR'S ORGANIZ ATION 08/01/2023 [facility] REASON FOR VISIT (unrecogniz ed section [...] BE BASED ON THE PRIMARY CLINICAL RECORDS. [employer] provides no warranty or guarantee of the accuracy or completeness of information in this document.
[2023-10-30] MEDS: FUROSEMIDE 20 MG/2 ML VIAL IVP (04:15)
[2023-10-30] MEDS: DEXAMETHASONE 4 MG TABLET 6 MG PO ×2 (04:15→10:45)
--- NOTE | 2023-10-30 04:50 | RESP.RT ---
pt found on room air placed pt on 4L nasal cannula and Sp02 increased to 91%.
[2023-10-30 05:36] LABS: Basophils Absolute Auto 0.1 10^3/uL (0.0-0.1); Basophils Percent Auto 0.7 % (0.2-2.0); Eosinophils Absolute Auto 0.2 10^3/uL (0.0-0.7); Eosinophils Percent Auto 1.9 % (0.9-7.0); Hemoglobin 10.4 g/dL (12.0-16.0); Immature Granulocytes Abs Auto 0.05 10^3/uL (0.00-0.03); Immature Granulocytes Pct Auto 0.4 % (0.0-0.5); Lymphocytes Percent Auto 16.6 % (20.5-60.0); Mean Corpuscular HGB Conc 31.5 g/dL (29.9-35.2); Mean Corpuscular Hemoglobin 27.9 pg (26.7-34.0); Mean Corpuscular Volume 88.5 fL (81.0-99.0); Mean Platelet Volume 12.3 fL (9.5-13.5); Monocytes Absolute Auto 0.8 10^3/uL (0.3-0.8); Monocytes Percent Auto 6.7 % (1.7-12.0); Neutrophils Absolute Auto 8.7 10^3/uL (1.4-6.5); Neutrophils Percent Auto 73.7 % (43.0-75.0); Platelet Count 249 10^3/uL (150-450); Red Blood Count 3.73 10^6/uL (4.20-5.40); Red Cell Distribution Width 14.4 % (11.0-15.0); White Blood Count 11.8 10^3/uL (4.0-11.0)
--- NOTE | 2023-10-30 06:00 | CA_ITS ---
Patient Name: DARYL CHAPARRO MR#: [id number] : 1970 Exam Date: 10/30/2023 Ordering Doctor: GENOVEVA GROSS ECHOCARDIOGRAM REPORT PROCEDURE: CA ECHO LIMITED INDICATIONS: Congestive heart failure, Covid+, diabetes, hypertension, COPD COMPARISON: None. DESCRIPTION: Limited ECHOCARDIOGRAM Real-time transthoracic echocardiography with 2D and M-mode performed. QUALITY: Technical quality was adequate. Limited echocardiogram per physician. 48 , 200#, BSA 1.82 m2 LEFT VENTRICLE: Normal chamber size. Moderate concentric left ventricular hypertrophy. LV EF: Global left ventricular systolic function is difficult to assess but appears preserved; visually estimated ejection fraction is 55 to 60%. Unable to assess regional wall motion abnormalities. LEFT ATRIUM: Severe dilatation. RIGHT ATRIUM: Normal chamber size. RIGHT VENTRICLE: Normal chamber size. TRICUSPID VALVE: Normal mobility and thickness. MITRAL VALVE: Mild mitral annular calcification. AORTIC VALVE: Normal trileaflet appearance. No visible sclerosis. AORTIC ROOT: Normal diameter and appearance. PULMONIC VALVE: Normal thickness. PERICARDIUM: A small, circumferential pericardial effusion is seen. A left pleural effusion is seen. IVC: Collapses with inspirations. CONCLUSION: 1. Global left ventricular systolic function is difficult to assess but appears preserved; visually estimated ejection fraction is 55 to 60% 2. Moderately increased left ventricular wall thickness 3. The left atrium is severely dilated 4. A small circumferential pericardial effusion is seen 5. A left pleural effusion is seen Adult Echocardiography Procedure Report Left Ventricle LVEDD (3.7 - 5.6 cm): 4.80 cm LVESD (2.2 - 4.0 cm): 3.52 cm LVIVS thickness (0.6 - 1.2 cm): 1.47 cm LVPW thickness (0.5 - 1.0 cm): 1.11 cm LVOT Diameter 2.13 cm Left Atrium LA Volume Index (2D A2C): 48.03 ml/m2 Left Atrium Systolic Dimension: 5.39 cm Mitral Valve Right Ventricle Aorta AO Root Diam: 2.94 cm Ascending Ao Diam: 2.24 cm Aortic Valve Tricuspid Valve Pulmonic Valve Right Atrium Right Atrium Systolic Pressure: 47.54 ml, 47.54 ml Dictated by: Don Richardson M.D. on 11/02/2023 at 13:42 Approved by: Don Richardson M.D. on 11/02/2023 at 13:45
[2023-10-30 06:01] LABS: Alanine Aminotransferase 17 U/L (14-59); Albumin Globulin Ratio 0.3; Albumin Level 1.3 g/dL (3.4-5.0); Alkaline Phosphatase 88 U/L (46-116); Anion Gap 7.4; Aspartate Amino Transferase 17 U/L (15-37); BUN Creatinine Ratio 9.2; Bilirubin Total 0.2 mg/dL (0.2-1.0); Calcium 8.4 mg/dL (8.5-10.1); Carbon Dioxide 26.6 mmol/L (21.0-32.0); Chloride 98 mmol/L (98-107); Estimated GFR (African America 22 (>=60); Estimated GFR (Non-African Ame 18 (>=60); Globulin 4.5 g/dL; Glucose 188 mg/dL (74-106); Sodium 129 mmol/L (136-145); Total Protein 5.8 g/dL (6.4-8.2); Troponin I High Sensitivity 23.3 pg/mL (4.0-51.3)
--- NOTE | 2023-10-30 10:21 | CM.NOTE ---
Rounding with Dr. Griffith and RN. RN does not feel the patient needs and OT or PT marcio, RN states patient is up around in room without difficulty. Continue to follow for any anticipated discharge needs.
[2023-10-30] MEDS: POTASSIUM CHLORIDE 10 MEQ ER TABLET PO (10:44)
[2023-10-30] MEDS: FUROSEMIDE 40 MG/4 ML VIAL IVP ×2 (10:44→21:03)
[2023-10-30] MEDS: CANAGLIFLOZIN 100 MG TABLET 300 MG PO (10:44)
[2023-10-30] MEDS: SPIRONOLACTONE 25 MG TABLET PO (10:45)
[2023-10-30] MEDS: ISOSORBIDE MONONITRATE 60 MG TAB.ER.24H PO (10:45)
[2023-10-30] MEDS: FERROUS SULFATE 325 MG TABLET PO (10:45)
[2023-10-30] MEDS: INSULIN DETEMIR 300 UNIT/3 ML INSULN.PEN 50 UNIT SUBQ (10:45)
[2023-10-30] MEDS: LISINOPRIL 20 MG TABLET PO (10:45)
[2023-10-30] MEDS: ENOXAPARIN SODIUM 40 MG/0.4 ML SYRINGE SUBQ (10:46)
[2023-10-30] MEDS: ACETAMINOPHEN 325 MG TABLET 650 MG PO (11:06)
[2023-10-30 11:48] LABS: Glucometer 325 mg/dL (74-106)
[2023-10-30] MEDS: INSULIN ASPART 300 UNIT/3 ML PEN SUBQ ×3 (11:57→21:13)
--- NOTE | 2023-10-30 12:00 | PM.HP ---
H&P: HPI History of Present Illness Chief complaint: sob Narrative: 53 y/o female to ER with SOB. History of CHF and pneumonia 1 month ago and treated. C/o increased SOB over past week. Noticed increased LE edema. SOB and fatigue with exertion. Mild dry cough. Afebrile. Patient has not been taking her medication due to cost. To ER due to worsening SOB. Initially 86% on room air. Chest x-ray showed pleural effusion with infiltrate and pulmonary congestion. BNP elevated and electrolytes abnormal. Covid positive and admitted for treatment. Started IV lasix for CHF. Echo in July 2022 showed EF 60-65% but diastolic dysfunction. Start zithromax and rocephin for possible underlying pneumonia. C/o diarrhea and C. diff ordered. Review of Systems ROS Constitutional Reports: fever, chills and fatigue Cardiovascular Reports: edema; Denies: chest pain or palpitations Respiratory Reports: shortness of breath and cough; Denies: wheezing Gastrointestinal Reports: diarrhea; Denies: abdominal pain, nausea or vomiting Genitourinary Denies: painful urination [facility] Medical History (Updated 10/30/23 @ 08:45 by Paresh Griffith MD) Chronic heart failure with preserved ejection fraction (HFpEF) ?I50.32 - Chronic diastolic (congestive) heart failure (ICD-10) Hypokalemia ?E87.6 - Hypokalemia (ICD-10) Hypertension ?I10 - Essential (primary) hypertension (ICD-10) Elevated systolic blood pressure reading without diagnosis of hypertension ?R03.0 - Elevated blood-pressure reading, without diagnosis of hypertension (ICD-10) Acute kidney injury superimposed on chronic kidney disease ?N17.9 - Acute kidney failure, unspecified (ICD-10) ?N18.9 - Chronic kidney disease, unspecified (ICD-10) CHF (congestive heart failure) ?I50.9 - Heart failure, unspecified (ICD-10) Chronic kidney disease (CKD) ?N18.9 - Chronic kidney disease, unspecified (ICD-10) Gastroenteritis ?K52.9 - Noninfective gastroenteritis and colitis, unspecified (ICD-10) Diarrhea ?R19.7 - Diarrhea, unspecified (ICD-10) Pneumonia ?J18.9 - Pneumonia, unspecified organism (ICD-10) CHF (congestive heart failure) ?I50.9 - Heart failure, unspecified (ICD-10) Cellulitis of left breast ?N61.0 - Mastitis without abscess (ICD-10) Diabetes ?E11.9 - Type 2 diabetes mellitus without complications (ICD-10) Surgical History (Updated 10/30/23 @ 05:44 by Aletha Blanchard) H/O: hysterectomy ?Z90.710 - Acquired absence of both cervix and uterus (ICD-10) H/O oral surgery ?Z98.890 - Other specified postprocedural states (ICD-10) Family History (Updated 10/30/23 @ 02:48 by Aletha Blanchard) Mother Family history of COPD (chronic obstructive pulmonary disease) Other Family history of cancer Family history of diabetes mellitus Family history of hypertension Social History (Updated 10/30/23 @ 02:49 by Aletha Blanchard) Within the past year, how often did you have a drink containing alcohol: never Score interpretation: A score less than 3 is consistent with normal alcohol consumption. Smoking status: Current every day smoker Do you use any of these nicotine containing products: vaping products Non-prescribed substance use: denies use Previous occupational history: [employer] Highest level of school completed/degree received: high school graduate Are you now , , , , never or living with a partner: In a typical week, how many times do you talk on the telephone with family, friends, or neighbors: 3 or more times per week How often do you get together with friends or relatives: 3 or more times per week How often do you attend oriental orthodox or methodist services: never Little interest or pleasure in doing things: not at all Feeling down, depressed, or hopeless: not at all Feel stressed/tense/nervous/anxious/difficulty sleeping: not at all Do you think of yourself as: straight/heterosexual Gender Identity: female Meds Home Medications and Allergies Home Medications Medication Instructions Recorded Confirmed Type atorvastatin 40 mg tablet 40 mg PO DAILY 10/30/23 10/30/23 History clonidine HCl 0.1 mg tablet 0.1 mg PO Q8H 10/30/23 10/30/23 History dapagliflozin propanediol 10 mg 10 mg PO DAILY 10/30/23 10/30/23 History tablet (Farxiga) ferrous sulfate 325 mg (65 mg 325 mg PO DAILY 10/30/23 10/30/23 History iron) tablet furosemide 40 mg tablet 40 mg PO Q12H 10/30/23 10/30/23 History insulin glargine 100 unit/mL (3 50 unit subcut DAILY 10/30/23 10/30/23 History mL) subcutaneous pen (Lantus Solostar U-100 Insulin) isosorbide mononitrate 60 mg 60 mg PO DAILY 10/30/23 10/30/23 History tablet,extended release 24 hr lidocaine 5 % topical patch 1 patch topical Q24H 10/30/23 10/30/23 History lisinopril 20 mg tablet 20 mg PO DAILY 10/30/23 10/30/23 History metformin 500 mg tablet,extended 1,000 mg PO DAILY 10/30/23 10/30/23 History release 24 hr pantoprazole 40 mg tablet,delayed 40 mg PO DAILY 10/30/23 10/30/23 History release potassium chloride 10 mEq 10 meq PO DAILY 10/30/23 10/30/23 History capsule,extended release spironolactone 25 mg tablet 25 mg PO DAILY 10/30/23 10/30/23 History temazepam 15 mg capsule 15 mg PO .hs PRN sleep 10/30/23 10/30/23 History trazodone 100 mg tablet 100 mg PO .hs PRN insomnia 10/30/23 10/30/23 History Allergies Allergy/AdvReac Type Severity Reaction Status Date / Time latex Allergy Unknown Verified 10/03/23 22:18 Exam Constitutional Vital Signs, click to edit/add: Last Vital Signs Temp 97.6 F 10/30/23 02:22 Pulse 90 10/30/23 08:00 Resp 16 10/30/23 08:00 BP 168/98 H 10/30/23 04:15 Pulse Ox 94 L 10/30/23 08:00 O2 Del Method Nasal Cannula 10/30/23 08:00 O2 Flow Rate 4 10/30/23 08:00 Documenting provider has reviewed patient's vital signs: yes Common normals: oriented x3 and alert Eye Common normals: PERRL and EOMs intact bilaterally Respiratory Common normals: normal respiratory effort Auscultation: crackles Laterality: bilateral Cardio Common normals: regular rate, regular rhythm, no gallops, no murmurs and no rub GI Common normals: Normal to inspection, nondistended, normoactive bowel sounds present and non-tender Extremity Common normals: pedal edema (1+ Bilateral pitting edema) Results Labs Labs: Short CBC 10/29/23 10/30/23 Range/Units 20:38 05:22 WBC 10.4 11.8 H (4.0-11.0) 10^3/uL Hgb 11.1 L 10.4 L (12.0-16.0) g/dL Hct 36.1 33.0 L (36.0-48.0) % Plt Count 239 249 (150-450) 10^3/uL BMP 10/29/23 10/30/23 20:38 05:22 Sodium 132 L 129 L Potassium 2.8 L* 3.0 L Chloride 100 98 Carbon Dioxide 27.3 26.6 BUN 25.0 H 25.0 H Creatinine 2.80 H 2.73 H Glucose 207 H 188 H Calcium 8.4 L 8.4 L Liver Function 10/29/23 10/30/23 Range/Units 20:38 05:22 Total Bilirubin 0.3 0.2 (0.2-1.0) mg/dL AST 17 17 (15-37) U/L ALT 17 17 (14-59) U/L Alkaline Phosphatase 92 88 (46-116) U/L Albumin 1.3 L 1.3 L (3.4-5.0) g/dL ABG ABG results: 10/29/23 20:56 ABG pH 7.392 ABG pCO2 41.5 ABG pO2 70.5 L ABG HCO3 25.2 ABG O2 Saturation 95.8 ABG Base Excess 0.2 Assessment and Plan Assessment and Plan (1) Acute on chronic heart failure with preserved ejection fraction (HFpEF): (2) Acute hypoxic respiratory failure: (3) COVID-19: (4) Pneumonia: (5) TROY (acute kidney injury): (6) Diarrhea: (7) Hyponatremia: (8) Hypokalemia: (9) Type 2 diabetes 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: (10) Hypertension: (11) COPD (chronic obstructive pulmonary disease): (12) Stage 3b chronic kidney disease (CKD): (13) Morbid obesity: Plan Continue IV lasix for fluid overload. Repeat limited echo to assess EF. Continue antibiotics for possible underlying pneumonia. Resume home medication. Electrolytes abnormal and monitor. Replace potassium. Continued diarrhea with history of C. diff and repeat C. diff PCR. Plan at least a 2 midnight stay for inpatient medially necessary services.
--- NOTE | 2023-10-30 13:25 | DIETREC ---
Recommendation Change diet to Regualr 2 gram sodium diet ( R/T CHF) start prostat @ 30 ml po daily R/T low serum albumin
[2023-10-30] MEDS: CLONIDINE HCL 0.1 MG TABLET PO ×2 (15:03→21:12)
[2023-10-30] MEDS: IPRATROPIUM/ALBUTEROL SULFATE 3 ML AMPUL.NEB IH (15:37)
--- NOTE | 2023-10-30 15:49 | RESP.RT ---
spO2 on 3 lpm
--- NOTE | 2023-10-30 15:51 | P.CAPN_ITS ---
Progress Note: A&P Assessment and Plan (1) Acute on chronic heart failure with preserved ejection fraction (HFpEF): (2) Acute hypoxic respiratory failure: (3) COVID-19: (4) Pneumonia: (5) TROY (acute kidney injury): (6) Diarrhea: (7) Hyponatremia: (8) Hypokalemia: (9) Type 2 diabetes 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: (10) Hypertension: (11) COPD (chronic obstructive pulmonary disease): (12) Stage 3b chronic kidney disease (CKD): (13) Morbid obesity: Plan Agree with plan as dictated in H and P Recommend limited Echo for EF/wall motion assessment Continue current diuretic regimen Daily standing weight, sodium and fluid restriction Treat underlying infection Consider PE rule out if patient continues to have hypoxia, tachycardia EKG with sinus tachy and lateral t wave inversions. Consider outpatient stress test once acute illness resolves Please do not hesitate contact cardiology with any questions/concerns. Becky Miranda MD [facility] Cardiology Subjective Subjective Principal diagnosis: Acute on Chronic Heart failure with preserved Ejection Fraction, Covid 19 Interval history: Virtual chart review performed due to Covid 19 status. Not a billable encounter Paitent presenting with Acute hypoxic respiratory failure, acute on chronic decompensated HFpEF, Covid 19 with possible pnuemonia on Xray, and diarrhea. Patient is diuresing appropriately with IV diuretics. No Cardiac imaging studies avaiable with exception of EKG. No reports of Chest pain. Patient was not taking heart failure medications as per history due to cost. Exam Constitutional Vital Signs, click to edit/add: Last Vital Signs Temp 97.7 F 10/30/23 14:00 Pulse 98 H 10/30/23 14:00 Resp 18 10/30/23 14:00 BP 122/84 10/30/23 15:03 Pulse Ox 94 L 10/30/23 14:00 O2 Del Method Nasal Cannula 10/30/23 14:00 O2 Flow Rate 3 10/30/23 14:00
[2023-10-30 16:19] LABS: C. Difficile PCR POSITIVE (NEGATIVE)
[2023-10-30 16:38] LABS: Glucometer 240 mg/dL (74-106)
[2023-10-30 17:39] LABS: BUN Creatinine Ratio 9.6; Calcium 8.5 mg/dL (8.5-10.1); Carbon Dioxide 24.3 mmol/L (21.0-32.0); Chloride 101 mmol/L (98-107); Estimated GFR (African America 21 (>=60); Estimated GFR (Non-African Ame 18 (>=60); Glucose 228 mg/dL (74-106); Potassium 3.3 mmol/L (3.5-5.1); Sodium 132 mmol/L (136-145)
[2023-10-30] MEDS: VANCOMYCIN HCL 7,500 MG/150 ML BOTTLE 125 MG PO ×2 (18:35→21:13)
[2023-10-30 21:04] LABS: Glucometer 280 mg/dL (74-106)
[2023-10-30] MEDS: ATORVASTATIN CALCIUM 40 MG TABLET PO (21:12)
--- NOTE | 2023-10-30 23:47 | PC.NURSE ---
Pt has been verbally abusive throughout shift to aide, RECEPTIONIST SCHEDULER, RN and RT. Pt slams things around and cusses about vitals, meds, and being placed on vapo. Pt removed vapo and was at 74% Room air. Educated pt on importance of vapo and keeping the cannula on. Pt verbalized understanding of this but still does not want to keep it on. Tele hosp has been notified as well as nursing recreation facilities supervisor.
[2023-10-31] VITALS (21 sets, daily range): BP systolic 155–190; BP diastolic 89–100; PULSE 84–104; RESP 18; TEMP 36–36.8; O2SAT 92–100
--- NOTE | 2023-10-31 05:00 | XR_ITS ---
The [address] [address] Patient Name: DARYL CHAPARRO MRN: [id number] date: 1970 Sex: F Assigned Patient Location: Current Patient Location: Accession/Order Number: [id number] Exam Date: 10/31/2023 05:23 Report Date: 10/31/2023 07:24 At the request of: OPAL BELTRAN Procedure: XR chest 1V PROCEDURE: XR chest 1V DATE: 10/31/2023 4:23 AM SUPERVISOR ELECTRONIC TESTING COMPARISONS: 10/29/2023 CLINICAL INDICATION: 53 years Female SOB FINDINGS: The heart appears slightly prominent and stable. Haziness overlies the lower lung diop, similar to previous exam this may represent some bilateral pleural effusions with associated basilar atelectasis. Some of this could be due to overlying soft tissue related to the patient's body habitus. Some of this may represent atelectasis as this is a less than optimal inspiratory radiograph. No evidence of pneumothorax. XR/XR chest 1V IMPRESSION: Chest is stable in appearance from previous exam done 2 days prior. Electronically authenticated by: RICHY MCGEE Date: 10/31/2023 07:24
[2023-10-31 05:31] LABS: ABG PCO2 40.7 mmHg (35.0-45.0); HCO3 ABG 26.8 mmol/L (22.0-26.0); PO2 ABG 73.7 mmHg (80.0-100.0); pH ABG 7.426 (7.350-7.450)
[2023-10-31 05:32] LABS: Allen Test POSITIVE (POSITIVE); Base Excess ABG 2.4 mmol/L (-2.0-2.0); Liters per Minute 4; O2 Mode NASAL CANNULA; Oxygen Saturation ABG 96.6 %; Puncture Site RR
[2023-10-31] MEDS: CLONIDINE HCL 0.1 MG TABLET PO ×3 (05:39→21:46)
[2023-10-31] MEDS: VANCOMYCIN HCL 7,500 MG/150 ML BOTTLE 125 MG PO ×4 (05:39→21:33)
[2023-10-31] MEDS: OMEPRAZOLE 40 MG CAPSULE.DR PO (05:39)
[2023-10-31 07:34] LABS: Basophils Percent Auto 0.2 % (0.2-2.0); Hematocrit 30.8 % (36.0-48.0); Hemoglobin 9.7 g/dL (12.0-16.0); Immature Granulocytes Abs Auto 0.08 10^3/uL (0.00-0.03); Immature Granulocytes Pct Auto 0.5 % (0.0-0.5); Lymphocytes Absolute Auto 1.6 10^3/uL (1.2-3.8); Lymphocytes Percent Auto 10.5 % (20.5-60.0); Mean Corpuscular HGB Conc 31.5 g/dL (29.9-35.2); Mean Corpuscular Hemoglobin 27.8 pg (26.7-34.0); Mean Corpuscular Volume 88.3 fL (81.0-99.0); Mean Platelet Volume 12.9 fL (9.5-13.5); Monocytes Absolute Auto 1.1 10^3/uL (0.3-0.8); Monocytes Percent Auto 7.4 % (1.7-12.0); Neutrophils Absolute Auto 12.3 10^3/uL (1.4-6.5); Neutrophils Percent Auto 81.4 % (43.0-75.0); Platelet Count 266 10^3/uL (150-450); Red Blood Count 3.49 10^6/uL (4.20-5.40); Red Cell Distribution Width 14.5 % (11.0-15.0); White Blood Count 15.1 10^3/uL (4.0-11.0)
[2023-10-31 07:47] LABS: Glucometer 191 mg/dL (74-106)
[2023-10-31 07:49] LABS: Anion Gap 12.8; BUN Creatinine Ratio 10.8; Calcium 8.6 mg/dL (8.5-10.1); Carbon Dioxide 25.7 mmol/L (21.0-32.0); Chloride 103 mmol/L (98-107); Estimated GFR (African America 21 (>=60); Estimated GFR (Non-African Ame 17 (>=60); Glucose 205 mg/dL (74-106); Potassium 3.5 mmol/L (3.5-5.1); Sodium 138 mmol/L (136-145)
[2023-10-31] MEDS: FERROUS SULFATE 325 MG TABLET PO (08:13)
[2023-10-31] MEDS: DEXAMETHASONE 4 MG TABLET 6 MG PO (08:13)
[2023-10-31] MEDS: SPIRONOLACTONE 25 MG TABLET PO (08:14)
[2023-10-31] MEDS: FUROSEMIDE 40 MG/4 ML VIAL IVP (08:14)
[2023-10-31] MEDS: POTASSIUM CHLORIDE 10 MEQ ER TABLET PO (08:14)
[2023-10-31] MEDS: ACETAMINOPHEN 325 MG TABLET 650 MG PO ×2 (08:14→23:32)
[2023-10-31] MEDS: ISOSORBIDE MONONITRATE 60 MG TAB.ER.24H PO (08:15)
[2023-10-31] MEDS: ENOXAPARIN SODIUM 40 MG/0.4 ML SYRINGE SUBQ (08:15)
[2023-10-31] MEDS: INSULIN ASPART 300 UNIT/3 ML PEN SUBQ ×4 (08:20→21:34)
[2023-10-31] MEDS: INSULIN DETEMIR 300 UNIT/3 ML INSULN.PEN 50 UNIT SUBQ (08:20)
--- NOTE | 2023-10-31 09:54 | P.PN_ITS ---
Progress Note: Subjective Subjective Interval history: Patient states breathing is somewhat improved compared to her admission. But still with significant dyspnea with any activity. Exam Constitutional Vital Signs, click to edit/add: Last Vital Signs Temp 98.2 F 10/31/23 06:00 Pulse 94 H 10/31/23 07:59 Resp 18 10/31/23 06:00 BP 155/90 H 10/31/23 05:39 Pulse Ox 92 L 10/31/23 07:59 O2 Del Method Nasal Cannula 10/31/23 06:00 O2 Flow Rate 4 10/31/23 06:00 FiO2 60 10/31/23 04:30 Common normals: apparent distress Respiratory Common normals: abnormal respiratory effort Cardio Common normals: regular rate and regular rhythm Extremity Other: 2- 3+ edema Progress Note: Objective Labs Labs: Short CBC 10/31/23 Range/Units 06:58 WBC 15.1 H (4.0-11.0) 10^3/uL Hgb 9.7 L (12.0-16.0) g/dL Hct 30.8 L (36.0-48.0) % Plt Count 266 (150-450) 10^3/uL BMP 10/30/23 10/31/23 16:55 06:58 Sodium 132 L 138 Potassium 3.3 L 3.5 Chloride 101 103 Carbon Dioxide 24.3 25.7 BUN 27.0 H 31.0 H Creatinine 2.81 H 2.88 H Glucose 228 H 205 H Calcium 8.5 8.6 Progress Note: A&P Assessment and Plan (1) Acute on chronic heart failure with preserved ejection fraction (HFpEF): (2) Acute hypoxic respiratory failure: (3) COVID-19: (4) Pneumonia: (5) TROY (acute kidney injury): (6) Diarrhea: (7) Hyponatremia: (8) Hypokalemia: (9) Type 2 diabetes 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: (10) Hypertension: (11) COPD (chronic obstructive pulmonary disease): (12) Stage 3b chronic kidney disease (CKD): (13) Morbid obesity: Plan Sinus tachycardia, uncontrolled hypertension, acute on chronic heart failure with preserved ejection fraction (HFpEF):-We will try patient on Bumex drip today., Unable to wean supplemental oxygen especially at night Leukocytosis, acute hypoxic respiratory failure with left lower lobe pneumonia: Secondary to acute COVID-19 with acute exacerbation of COPD-will add remdesivir, continue with the treatments TROY (acute kidney injury):-Monitor daily Diarrhea:-Improved since admission and starting vancomycin for C. difficile colitis Hyponatremia:-Continue to monitor daily Hypokalemia:-Supplement as needed Type 2 diabetes 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:-Continue with insulin sliding scale Hypertension: Continue with home medications Stage 3b chronic kidney disease (CKD):-Monitor daily Morbid obesity with severe protein calorie malnutrition:-Diet management more as an outpatient Hypercalcemia-with a low albumin and normal calcium she is hypercalcemic-monitor supplements With intensive services as outlined above-maintain patient inpatient status
[2023-10-31 11:19] LABS: Glucometer 211 mg/dL (74-106)
[2023-10-31] MEDS: REMDESIVIR 200 MG in 0.9 % SODIUM CHLORIDE 250 ML 250 MG IV (11:30)
[2023-10-31] MEDS: BUMETANIDE 10 MG in 0.9 % SODIUM CHLORIDE 160 ML 20 MG IV (13:26)
[2023-10-31 16:14] LABS: Glucometer 174 mg/dL (74-106)
[2023-10-31 17:33] LABS: Glucometer 168 mg/dL (74-106)
[2023-10-31 20:10] LABS: Glucometer 225 mg/dL (74-106)
[2023-10-31] MEDS: MUPIROCIN 2% OINTMENT 22 GRAM TUBE 1 APPLIC TOPICAL (21:32)
[2023-10-31] MEDS: ATORVASTATIN CALCIUM 40 MG TABLET PO (21:32)
[2023-10-31] MEDS: TRAZODONE HCL 50 MG TABLET 100 MG PO (22:20)
[2023-10-31] MEDS: HYDRALAZINE HCL 20 MG/ML VIAL 10 MG IVP (22:20)
[2023-10-31] MEDS: AZITHROMYCIN 500 MG in 0.9 % SODIUM CHLORIDE 250 ML 250 MG IV (22:20)
--- NOTE | 2023-10-31 23:38 | PC.NURSE ---
Pts bp 190/100, IV Hydralazine given. Pt refused BP recheck. Pt is easily agitated and wants to be left alone.
[2023-11-01] VITALS (22 sets, daily range): BP systolic 127–182; BP diastolic 67–96; PULSE 77–100; RESP 18; TEMP 35.9–36.7; O2SAT 83–98
[2023-11-01] MEDS: CEFTRIAXONE 1,000 MG in 0.9 % SODIUM CHLORIDE 50 ML 100 MG IV ×2 (00:49→10:55)
[2023-11-01] MEDS: VANCOMYCIN HCL 7,500 MG/150 ML BOTTLE 125 MG PO ×4 (05:00→23:25)
[2023-11-01] MEDS: CLONIDINE HCL 0.1 MG TABLET PO ×3 (05:00→23:34)
--- NOTE | 2023-11-01 05:14 | PC.NURSE ---
Pt bp at 0500 182/96, pt does not want prn meds to lower it,. Pt resting comfortably in bed at this time.
[2023-11-01] MEDS: OMEPRAZOLE 40 MG CAPSULE.DR PO (05:31)
[2023-11-01 06:27] LABS: Basophils Percent Auto 0.2 % (0.2-2.0); Eosinophils Percent Auto 0.1 % (0.9-7.0); Hematocrit 33.7 % (36.0-48.0); Hemoglobin 10.5 g/dL (12.0-16.0); Immature Granulocytes Abs Auto 0.12 10^3/uL (0.00-0.03); Immature Granulocytes Pct Auto 0.9 % (0.0-0.5); Lymphocytes Absolute Auto 2.3 10^3/uL (1.2-3.8); Lymphocytes Percent Auto 18.1 % (20.5-60.0); Mean Corpuscular HGB Conc 31.2 g/dL (29.9-35.2); Mean Corpuscular Hemoglobin 27.1 pg (26.7-34.0); Mean Corpuscular Volume 86.9 fL (81.0-99.0); Mean Platelet Volume 13.1 fL (9.5-13.5); Monocytes Absolute Auto 0.9 10^3/uL (0.3-0.8); Monocytes Percent Auto 7.1 % (1.7-12.0); Neutrophils Absolute Auto 9.3 10^3/uL (1.4-6.5); Neutrophils Percent Auto 73.6 % (43.0-75.0); Platelet Count 309 10^3/uL (150-450); Red Blood Count 3.88 10^6/uL (4.20-5.40); Red Cell Distribution Width 14.5 % (11.0-15.0); White Blood Count 12.7 10^3/uL (4.0-11.0)
[2023-11-01 06:31] LABS: Anion Gap 10.8; BUN Creatinine Ratio 12.9; Calcium 8.9 mg/dL (8.5-10.1); Carbon Dioxide 26.8 mmol/L (21.0-32.0); Chloride 102 mmol/L (98-107); Estimated GFR (African America 22 (>=60); Estimated GFR (Non-African Ame 18 (>=60); Glucose 115 mg/dL (74-106); Potassium 3.6 mmol/L (3.5-5.1); Sodium 136 mmol/L (136-145)
[2023-11-01] MEDS: ENOXAPARIN SODIUM 30 MG/0.3 ML SYRINGE SUBQ (09:33)
[2023-11-01] MEDS: POTASSIUM CHLORIDE 10 MEQ ER TABLET PO (09:33)
[2023-11-01] MEDS: SPIRONOLACTONE 25 MG TABLET PO (09:33)
[2023-11-01] MEDS: MUPIROCIN 2% OINTMENT 22 GRAM TUBE 1 APPLIC TOPICAL ×2 (09:33→20:56)
[2023-11-01] MEDS: ISOSORBIDE MONONITRATE 60 MG TAB.ER.24H PO (09:33)
[2023-11-01] MEDS: FERROUS SULFATE 325 MG TABLET PO (09:33)
[2023-11-01] MEDS: INSULIN DETEMIR 300 UNIT/3 ML INSULN.PEN 50 UNIT SUBQ (09:34)
[2023-11-01] MEDS: REMDESIVIR 100 MG in 0.9 % SODIUM CHLORIDE 100 ML 200 MG IV (09:35)
[2023-11-01] MEDS: DEXAMETHASONE 4 MG TABLET 6 MG PO (09:38)
--- NOTE | 2023-11-01 10:23 | P.PN_ITS ---
Progress Note: Subjective Subjective Interval history: Patient still with significant dyspnea with any activity in the room. Also peripheral edema persisting. Exam Constitutional Vital Signs, click to edit/add: Last Vital Signs Temp 97.6 F 11/01/23 05:11 Pulse 90 11/01/23 08:00 Resp 18 11/01/23 05:11 BP 182/96 H 11/01/23 05:11 Pulse Ox 97 11/01/23 08:00 O2 Del Method BIPAP 11/01/23 05:11 O2 Flow Rate 4 11/01/23 05:11 FiO2 60 10/31/23 04:30 Common normals: apparent distress Respiratory Common normals: abnormal respiratory effort Cardio Common normals: regular rate and regular rhythm Extremity Other: 2- 3+ edema Progress Note: Objective Labs Labs: Short CBC 11/01/23 Range/Units 05:13 WBC 12.7 H (4.0-11.0) 10^3/uL Hgb 10.5 L (12.0-16.0) g/dL Hct 33.7 L (36.0-48.0) % Plt Count 309 (150-450) 10^3/uL BMP 11/01/23 05:13 Sodium 136 Potassium 3.6 Chloride 102 Carbon Dioxide 26.8 BUN 36.0 H Creatinine 2.79 H Glucose 115 H Calcium 8.9 Progress Note: A&P Assessment and Plan (1) Acute on chronic heart failure with preserved ejection fraction (HFpEF): (2) Acute hypoxic respiratory failure: (3) COVID-19: (4) Pneumonia: (5) TROY (acute kidney injury): (6) Diarrhea: (7) Hyponatremia: (8) Hypokalemia: (9) Type 2 diabetes 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: (10) Hypertension: (11) COPD (chronic obstructive pulmonary disease): (12) Stage 3b chronic kidney disease (CKD): (13) Morbid obesity: Plan Sinus tachycardia, uncontrolled hypertension, acute on chronic heart failure with preserved ejection fraction (HFpEF)-good diuresis yesterday on 5 L, with peripheral edema persisting we will repeat Bumex drip again today., Check echocardiogram Leukocytosis, acute hypoxic respiratory failure with left lower lobe pneumonia: Secondary to acute COVID-19 with acute exacerbation of COPD-will add remdesivir, continue with the treatments-overall improving TROY (acute kidney injury):-Stable slightly improved from previous day despite Bumex drip Diarrhea:-Improved since admission but persisting secondary to C. difficile colitis Hyponatremia: Stable Hypokalemia: Stable Type 2 diabetes 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: Increase insulin sliding scale Hypertension: Continue with home medications Stage 3b chronic kidney disease (CKD):-Monitor daily Morbid obesity with severe protein calorie malnutrition:-Diet management more as an outpatient Hypercalcemia-with a low albumin and normal calcium she is hypercalcemic-monitor supplements With intensive services as outlined above-maintain patient inpatient status
[2023-11-01 11:00] LABS: Glucometer 138 mg/dL (74-106)
[2023-11-01] MEDS: PROSTAT 15 GM PROTEIN/100 CAL 30 ML LIQUID PACKET PO ×2 (11:01→20:56)
[2023-11-01] MEDS: METOPROLOL TARTRATE 25 MG TABLET PO ×2 (11:01→20:55)
[2023-11-01] MEDS: ENSURE HP 237 ML LIQUID PO ×2 (11:01→20:55)
[2023-11-01] MEDS: BUMETANIDE 10 MG in 0.9 % SODIUM CHLORIDE 160 ML 20 MG IV (13:46)
[2023-11-01 16:39] LABS: Glucometer 197 mg/dL (74-106)
[2023-11-01] MEDS: INSULIN ASPART 300 UNIT/3 ML PEN SUBQ (17:12)
[2023-11-01] MEDS: ACETAMINOPHEN 325 MG TABLET 650 MG PO (20:55)
[2023-11-01 21:46] LABS: Glucometer 120 mg/dL (74-106)
[2023-11-01] MEDS: ATORVASTATIN CALCIUM 40 MG TABLET PO (23:24)
[2023-11-02] VITALS (18 sets, daily range): BP systolic 131–164; BP diastolic 66–92; PULSE 81–93; RESP 16–18; TEMP 36.6–36.8; O2SAT 91–97
[2023-11-02] MEDS: AZITHROMYCIN 500 MG in 0.9 % SODIUM CHLORIDE 250 ML 250 MG IV (01:26)
[2023-11-02] MEDS: CEFTRIAXONE 1,000 MG in 0.9 % SODIUM CHLORIDE 50 ML 100 MG IV ×2 (02:46→10:46)
[2023-11-02] MEDS: OMEPRAZOLE 40 MG CAPSULE.DR PO (06:26)
[2023-11-02] MEDS: VANCOMYCIN HCL 7,500 MG/150 ML BOTTLE 125 MG PO ×3 (06:26→17:15)
[2023-11-02] MEDS: CLONIDINE HCL 0.1 MG TABLET PO ×2 (06:26→14:02)
[2023-11-02 06:36] LABS: Basophils Percent Auto 0.2 % (0.2-2.0); Eosinophils Percent Auto 0.1 % (0.9-7.0); Hematocrit 32.6 % (36.0-48.0); Hemoglobin 10.1 g/dL (12.0-16.0); Immature Granulocytes Abs Auto 0.12 10^3/uL (0.00-0.03); Immature Granulocytes Pct Auto 1.1 % (0.0-0.5); Lymphocytes Absolute Auto 2.1 10^3/uL (1.2-3.8); Lymphocytes Percent Auto 18.5 % (20.5-60.0); Mean Corpuscular Hemoglobin 27.4 pg (26.7-34.0); Mean Corpuscular Volume 88.6 fL (81.0-99.0); Mean Platelet Volume 12.7 fL (9.5-13.5); Monocytes Absolute Auto 0.8 10^3/uL (0.3-0.8); Monocytes Percent Auto 7.2 % (1.7-12.0); Neutrophils Absolute Auto 8.1 10^3/uL (1.4-6.5); Neutrophils Percent Auto 72.9 % (43.0-75.0); Platelet Count 285 10^3/uL (150-450); Red Blood Count 3.68 10^6/uL (4.20-5.40); Red Cell Distribution Width 14.5 % (11.0-15.0); White Blood Count 11.1 10^3/uL (4.0-11.0)
[2023-11-02 06:46] LABS: BUN Creatinine Ratio 18.4; Calcium 8.5 mg/dL (8.5-10.1); Carbon Dioxide 29.1 mmol/L (21.0-32.0); Estimated GFR (African America 23 (>=60); Estimated GFR (Non-African Ame 19 (>=60); Glucose 171 mg/dL (74-106); Potassium 3.9 mmol/L (3.5-5.1)
[2023-11-02 07:14] LABS: Anion Gap 8.8
--- NOTE | 2023-11-02 08:34 | P.PN_ITS ---
Progress Note: Subjective Subjective Interval history: edmea overall improved but persisting in abd. dyspnea better - on RA currently Exam Constitutional Vital Signs, click to edit/add: Last Vital Signs Temp 97.9 F 11/02/23 06:00 Pulse 82 11/02/23 08:11 Resp 18 11/02/23 06:00 BP 160/76 H 11/02/23 06:26 Pulse Ox 95 11/02/23 08:11 O2 Del Method Room Air 11/02/23 06:00 O2 Flow Rate 1 11/02/23 04:40 FiO2 60 10/31/23 04:30 Common normals: apparent distress Respiratory Common normals: abnormal respiratory effort Cardio Common normals: regular rate and regular rhythm Extremity Other: 2- 3+ edema Progress Note: Objective Labs Labs: Short CBC 11/02/23 Range/Units 06:15 WBC 11.1 H (4.0-11.0) 10^3/uL Hgb 10.1 L (12.0-16.0) g/dL Hct 32.6 L (36.0-48.0) % Plt Count 285 (150-450) 10^3/uL BMP 11/02/23 06:18 Sodium Potassium 3.9 Chloride Carbon Dioxide 29.1 BUN 49.0 H Creatinine 2.67 H Glucose 171 H Calcium 8.5 Progress Note: A&P Assessment and Plan (1) Acute on chronic heart failure with preserved ejection fraction (HFpEF): (2) Acute hypoxic respiratory failure: (3) COVID-19: (4) Pneumonia: (5) TROY (acute kidney injury): (6) Diarrhea: (7) Hyponatremia: (8) Hypokalemia: (9) Type 2 diabetes 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: (10) Hypertension: (11) COPD (chronic obstructive pulmonary disease): (12) Stage 3b chronic kidney disease (CKD): (13) Morbid obesity: Plan Sinus tachycardia, uncontrolled hypertension, acute on chronic heart failure with preserved ejection fraction (HFpEF)-good diuresis over the weekend. Will change to oral meds for today - anticipate d/c in am with another day of remdesivir Leukocytosis, acute hypoxic respiratory failure with left lower lobe pneumonia: Secondary to acute COVID-19 with acute exacerbation of COPD-will add remdesivir, continue with the treatments-overall improving TROY (acute kidney injury):-Stable slightly improved from previous day despite Bumex drip Diarrhea:-Improved since admission but persisting secondary to C. difficile colitis Hyponatremia: Stable Hypokalemia: Stable Type 2 diabetes 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: Increase insulin sliding scale Hypertension: Continue with home medications Stage 3b chronic kidney disease (CKD):-Monitor daily Morbid obesity with severe protein calorie malnutrition:-Diet management more as an outpatient Hypercalcemia-with a low albumin and normal calcium she is hypercalcemic-monitor supplements With intensive services as outlined above-maintain patient inpatient status, likely able to d/c tomorrow
[2023-11-02] MEDS: PROSTAT 15 GM PROTEIN/100 CAL 30 ML LIQUID PACKET PO ×2 (08:50→20:37)
[2023-11-02] MEDS: FERROUS SULFATE 325 MG TABLET PO (08:50)
[2023-11-02] MEDS: ENOXAPARIN SODIUM 30 MG/0.3 ML SYRINGE SUBQ (08:50)
[2023-11-02] MEDS: FUROSEMIDE 40 MG TABLET PO (08:50)
[2023-11-02] MEDS: ENSURE HP 237 ML LIQUID PO ×2 (08:51→20:37)
[2023-11-02] MEDS: ISOSORBIDE MONONITRATE 60 MG TAB.ER.24H PO (08:51)
[2023-11-02] MEDS: POTASSIUM CHLORIDE 10 MEQ ER TABLET PO (08:51)
[2023-11-02] MEDS: SPIRONOLACTONE 25 MG TABLET PO (08:51)
[2023-11-02] MEDS: METOPROLOL TARTRATE 25 MG TABLET PO ×2 (08:51→20:37)
[2023-11-02] MEDS: MUPIROCIN 2% OINTMENT 22 GRAM TUBE 1 APPLIC TOPICAL ×2 (08:52→20:37)
[2023-11-02] MEDS: DEXAMETHASONE 4 MG TABLET 6 MG PO (08:56)
[2023-11-02] MEDS: REMDESIVIR 100 MG in 0.9 % SODIUM CHLORIDE 100 ML IV (09:14)
[2023-11-02] MEDS: INSULIN DETEMIR 300 UNIT/3 ML INSULN.PEN 50 UNIT SUBQ (09:14)
--- NOTE | 2023-11-02 09:45 | CM.NOTE ---
Rounds made with Dr. Altamirano. Plan for discharge tomorrow.
[2023-11-02 11:06] LABS: Glucometer 435 mg/dL (74-106)
[2023-11-02] MEDS: INSULIN ASPART 300 UNIT/3 ML PEN SUBQ ×2 (12:26→16:44)
[2023-11-02 16:26] LABS: Glucometer 180 mg/dL (74-106)
[2023-11-02 23:42] LABS: Glucometer 233 mg/dL (74-106)
[2023-11-03] VITALS (11 sets, daily range): BP systolic 154–195; BP diastolic 89–96; PULSE 80–95; RESP 18; TEMP 36.1; O2SAT 91–96
[2023-11-03] MEDS: CLONIDINE HCL 0.1 MG TABLET PO ×2 (01:02→06:35)
[2023-11-03] MEDS: ATORVASTATIN CALCIUM 40 MG TABLET PO (01:03)
[2023-11-03] MEDS: VANCOMYCIN HCL 7,500 MG/150 ML BOTTLE 125 MG PO ×3 (01:03→11:16)
[2023-11-03] MEDS: AZITHROMYCIN 500 MG in 0.9 % SODIUM CHLORIDE 250 ML 250 MG IV (01:03)
[2023-11-03] MEDS: INSULIN ASPART 300 UNIT/3 ML PEN SUBQ ×2 (01:04→08:42)
[2023-11-03] MEDS: CEFTRIAXONE 1,000 MG in 0.9 % SODIUM CHLORIDE 50 ML 100 MG IV ×2 (02:31→10:20)
[2023-11-03 05:45] LABS: Basophils Percent Auto 0.3 % (0.2-2.0); Eosinophils Percent Auto 0.1 % (0.9-7.0); Hematocrit 35.5 % (36.0-48.0); Immature Granulocytes Abs Auto 0.25 10^3/uL (0.00-0.03); Immature Granulocytes Pct Auto 1.9 % (0.0-0.5); Lymphocytes Absolute Auto 1.7 10^3/uL (1.2-3.8); Lymphocytes Percent Auto 13.2 % (20.5-60.0); Mean Corpuscular Hemoglobin 27.9 pg (26.7-34.0); Mean Corpuscular Volume 90.1 fL (81.0-99.0); Mean Platelet Volume 12.6 fL (9.5-13.5); Monocytes Percent Auto 7.6 % (1.7-12.0); Neutrophils Absolute Auto 9.9 10^3/uL (1.4-6.5); Neutrophils Percent Auto 76.9 % (43.0-75.0); Platelet Count 307 10^3/uL (150-450); Red Blood Count 3.94 10^6/uL (4.20-5.40); Red Cell Distribution Width 14.3 % (11.0-15.0); White Blood Count 12.8 10^3/uL (4.0-11.0)
[2023-11-03 05:54] LABS: Anion Gap 13.2; BUN Creatinine Ratio 23.2; Chloride 103 mmol/L (98-107); Estimated GFR (African America 24 (>=60); Estimated GFR (Non-African Ame 20 (>=60); Glucose 274 mg/dL (74-106); Potassium 4.2 mmol/L (3.5-5.1); Sodium 139 mmol/L (136-145)
[2023-11-03] MEDS: HYDRALAZINE HCL 20 MG/ML VIAL 10 MG IVP (06:35)
[2023-11-03] MEDS: OMEPRAZOLE 40 MG CAPSULE.DR PO (06:35)
[2023-11-03] MEDS: MUPIROCIN 2% OINTMENT 22 GRAM TUBE 1 APPLIC TOPICAL (08:42)
[2023-11-03] MEDS: INSULIN DETEMIR 300 UNIT/3 ML INSULN.PEN 50 UNIT SUBQ (08:43)
[2023-11-03] MEDS: ENSURE HP 237 ML LIQUID PO (08:45)
[2023-11-03] MEDS: METOPROLOL TARTRATE 25 MG TABLET 50 MG PO (08:45)
[2023-11-03] MEDS: DEXAMETHASONE 4 MG TABLET 6 MG PO (08:46)
[2023-11-03] MEDS: PROSTAT 15 GM PROTEIN/100 CAL 30 ML LIQUID PACKET PO (08:46)
[2023-11-03] MEDS: FUROSEMIDE 40 MG TABLET PO (08:46)
[2023-11-03] MEDS: ISOSORBIDE MONONITRATE 60 MG TAB.ER.24H PO (08:46)
[2023-11-03] MEDS: FERROUS SULFATE 325 MG TABLET PO (08:46)
[2023-11-03] MEDS: ENOXAPARIN SODIUM 30 MG/0.3 ML SYRINGE SUBQ (08:46)
[2023-11-03] MEDS: POTASSIUM CHLORIDE 10 MEQ ER TABLET PO (08:47)
[2023-11-03] MEDS: SPIRONOLACTONE 25 MG TABLET PO (08:47)
[2023-11-03] MEDS: REMDESIVIR 100 MG in 0.9 % SODIUM CHLORIDE 100 ML IV (09:07)
--- NOTE | 2023-11-03 09:13 | CM.NOTE ---
Rounds made with Dr. Altamirano, discussed with pt discharge to home today. No discharge needs identified.
--- NOTE | 2023-11-03 09:22 | P.DS_ITS ---
DS: Providers Provider Date of admission: 10/30/23 02:19 Primary care physician: Non-Staff Physician, Consults: 10/30/23 00:28 Consult to Cardiology Routine Reason for consultation: CHF Exacerbation Has provider been notified: No DS: Diagnosis Discharge Diagnosis (1) Acute on chronic heart failure with preserved ejection fraction (HFpEF): (2) Acute hypoxic respiratory failure: (3) COVID-19: (4) Pneumonia: (5) TROY (acute kidney injury): (6) Diarrhea: (7) Hyponatremia: (8) Hypokalemia: (9) Type 2 diabetes 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: (10) Hypertension: (11) COPD (chronic obstructive pulmonary disease): (12) Stage 3b chronic kidney disease (CKD): (13) Morbid obesity: Plan Sinus tachycardia, uncontrolled hypertension, acute on chronic heart failure with preserved ejection fraction (HFpEF) Leukocytosis, acute hypoxic respiratory failure with left lower lobe pneumonia: Secondary to acute COVID-19 with acute exacerbation of COPD TROY (acute kidney injury) Diarrhea Hyponatremia Hypokalemia Type 2 diabetes 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 Hypertension Stage 3b chronic kidney disease (CKD) Morbid obesity with severe protein calorie malnutrition Hypercalcemia-with a low albumin and normal calcium she is hypercalcemic DS: Summary Hospital Course Hospital Course: Patient presented to the emergency with increasing shortness of breath. Found to have acute exacerbation of COPD secondary to acute COVID-19 pneumonia complicated by acute combined congestive heart failure. Further complicated by acute C. difficile colitis. Patient was diuresed, consult to cardiology, when I saw her on day 3 I increased her diuresis to a Bumex drip. She did this over 2 days. Excellent diuresis with that with over 5 L out. Still has significant peripheral edema as well as some edema of her abdominal wall. This is likely to persist. She was placed on oral diuresis yesterday with improvement in her BUN and creatinine as well as improvement in her BNP. Diarrhea is slowly improving. Related to the COVID-19 and acute hypoxia she has been weaned off of Vapotherm and is now down to room air. She is to wear her BiPAP at nighttime. There is no significant desaturations noted at nighttime. Discussed all this with patient although reluctantly she was willing to be discharged home. Nothing further really to do while she is here in the hospital since she is on mostly p.o. medication at this time. Follow-up with her PCP within the next week. Recommend off work at least the next week. Medications see list. Time Spent with Patient Time attestation: Total time spent providing and/or coordinating discharge services: Exam Constitutional Vital Signs, click to edit/add: Last Vital Signs Temp 97.0 F L 11/03/23 06:00 Pulse 80 11/03/23 06:00 Resp 18 11/03/23 06:00 BP 191/96 H 11/03/23 06:35 Pulse Ox 94 L 11/03/23 08:00 O2 Del Method Room Air 11/03/23 06:00 O2 Flow Rate 1 11/02/23 04:40 FiO2 60 10/31/23 04:30 Common normals: apparent distress Respiratory Common normals: abnormal respiratory effort Cardio Common normals: regular rate and regular rhythm GI Common normals: negative for Normal to inspection, nondistended, normoactive bowel sounds present (Visually does have abdominal wall edema.Pannus edema likely slow to resolve) Extremity Other: 2 edema DS: Data Data Completed and Pending Labs on day of discharge: Labs from last 24 hours 11/03/23 11/02/23 11/02/23 05:36 23:31 16:25 WBC 12.8 H RBC 3.94 L Hgb 11.0 L Hct 35.5 L MCV 90.1 MCH 27.9 MCHC 31.0 RDW 14.3 Plt Count 307 MPV 12.6 Neut % (Auto) 76.9 H Lymph % (Auto) 13.2 L [place] % (Auto) 7.6 Eos % (Auto) 0.1 L Baso % (Auto) 0.3 Neut # (Auto) 9.9 H Lymph # (Auto) 1.7 [place] # (Auto) 1.0 H Eos # (Auto) 0.0 Baso # (Auto) 0.0 Abs Immat Gran (auto) 0.25 H Imm/Tot Granulo (auto) 1.9 H Sodium 139 Potassium 4.2 Chloride 103 Carbon Dioxide 27.0 Anion Gap 13.2 BUN 59.0 H Creatinine 2.54 H Est GFR ( Amer) 24 L Est GFR (Non-Af Amer) 20 L BUN/Creatinine Ratio 23.2 Glucose 274 H Calcium 8.0 L NT-Pro-B Natriuret Pep 81438.0 H* POC Glucose 233 H 180 H 11/02/23 11:04 WBC RBC Hgb Hct MCV MCH MCHC RDW Plt Count MPV Neut % (Auto) Lymph % (Auto) [place] % (Auto) Eos % (Auto) Baso % (Auto) Neut # (Auto) Lymph # (Auto) [place] # (Auto) Eos # (Auto) Baso # (Auto) Abs Immat Gran (auto) Imm/Tot Granulo (auto) Sodium Potassium Chloride Carbon Dioxide Anion Gap BUN Creatinine Est GFR ( Amer) Est GFR (Non-Af Amer) BUN/Creatinine Ratio Glucose Calcium NT-Pro-B Natriuret Pep POC Glucose 435 H Preliminary micro results at discharge 10/29/23 20:38 - Preliminary Blood NO GROWTH AT 36-48 HOURS. FINAL TO FOLLOW. 10/29/23 20:28 Blood Culture Result 1 - Preliminary Blood NO GROWTH AT 36-48 HOURS. FINAL TO FOLLOW. Discharge Plan Discharge Disposition: Home, Self-Care Condition: Fair Discharge Medications: New metoprolol tartrate 25 mg Tablet 50 mg PO BID Qty: 120 11RF vancomycin 125 mg capsule 125 mg PO Q6H 7 Days Qty: 28 0RF furosemide [Lasix] 40 mg tablet 80 mg PO QAM Qty: 60 11RF cefdinir 300 mg capsule 600 mg PO DAILY Qty: 20 0RF clonidine HCl 0.2 mg tablet 0.2 mg PO Q8H Qty: 90 11RF Continued atorvastatin 40 mg tablet 40 mg PO DAILY Patient Comments: patient hasn't taken med in months d/t finances Farxiga 10 mg tablet 10 mg PO DAILY Patient Comments: patient hasn't taken meds in months d/t finances ferrous sulfate 325 mg (65 mg iron) tablet 325 mg PO DAILY Patient Comments: patient hasn't taken meds in months d/t finances insulin glargine [Lantus Solostar U-100 Insulin] 100 unit/mL (3 mL) insulin pen 50 unit SUBCUT DAILY Patient Comments: patient hasn't taken meds in months d/t finances isosorbide mononitrate 60 mg tablet extended release 24 hr 60 mg PO DAILY Patient Comments: patient hasn't taken meds in months d/t finances lidocaine 5 % adhesive patch,medicated 1 patch topical Q24H Patient Comments: patient hasn't taken meds in months d/t finances lisinopril 20 mg tablet 20 mg PO DAILY Patient Comments: patient hasn't taken meds in months d/t finances metformin 500 mg tablet extended release 24 hr 1,000 mg PO DAILY Patient Comments: patient hasn't taken meds in months d/t finances pantoprazole 40 mg tablet,delayed release (DR/EC) 40 mg PO DAILY Patient Comments: patient hasn't taken meds in months d/t finances potassium chloride 10 mEq capsule, extended release 10 meq PO DAILY Patient Comments: patient hasn't taken meds in months d/t finances spironolactone 25 mg tablet 25 mg PO DAILY Patient Comments: patient hasn't taken meds in months d/t finances temazepam 15 mg capsule 15 mg PO .hs PRN (Reason: sleep) Patient Comments: patient hasn't taken meds in months d/t finances trazodone 100 mg tablet 100 mg PO .hs PRN (Reason: insomnia) Patient Comments: patient hasn't taken meds in months d/t finances Discontinued clonidine HCl 0.1 mg tablet 0.1 mg PO Q8H Patient Comments: patient hasn't taken meds in months d/t finances furosemide 40 mg tablet 40 mg PO Q12H Patient Comments: patient hasn't taken meds in months d/t finances Patient Instructions: Metoprolol (By mouth), Clonidine (By mouth), Vancomycin (By mouth), Cefdinir (By mouth) (Omnicef), C. Diff (Clostridioides Difficile) Infection (DC), COVID-19 (Coronavirus Disease 2019) (DC) Forms: Portal Instructions Follow Up Appointments: @ 9:30am with Ernestina Winchester NP [phone] @ 11:20am with [place] [facility] [phone] Discharge Date/Time: 11/03/23 13:05
[2023-11-03 11:25] LABS: Glucometer 299 mg/dL (74-106)
--- NOTE | 2023-11-04 14:26 | CM.DCFOLLOWU ---
Person spoke with: Sourav How are you feeling? Better but started with diarrhea again How is your pain? No pain Did you understand your discharge instructions? Yes Do you have any questions about your discharge instructions? No Were you given any prescriptions at discharge? Yes Were you able to get your prescriptions filled? Yes Do you understand how to take your medications as ordered? Yes Do you have any questions about your follow up appointment and do you plan to keep your follow up appointment? No went over dates and times and pt does plan on keeping appointments Is there anything else that you would like to discuss? No Questions/Comments/Concerns/Other:
== END 2023-11-03 13:05 | disposition home or self-care (01) | DRG 177 ==
LOC: ER 10-30 01:05 → MS 10-30 02:19
PROVIDERS: Family Medicine; Nurse Practitioner Acute Care; Admitting Provider Family Medicine; Emergency Provider Emergency Medicine; Visit Provider Family Medicine
DX: U07.1 COVID-19 (principal); E43 Unspecified severe protein-calorie malnutrition; I50.33 Acute on chronic diastolic (congestive) heart failure; J96.01 Acute respiratory failure with hypoxia; J12.82 Pneumonia due to coronavirus disease 2019; E87.1 Hypo-osmolality and hyponatremia; N17.9 Acute kidney failure, unspecified; Z68.43 Body mass index [BMI] 50.0-59.9, adult; I13.0 Hypertensive heart and chronic kidney disease with heart failure and stage 1 through stage 4 chronic kidney disease, or unspecified chronic kidney disease; J44.1 Chronic obstructive pulmonary disease with (acute) exacerbation; A04.71 Enterocolitis due to Clostridium difficile, recurrent; E83.52 Hypercalcemia; F17.290 Nicotine dependence, other tobacco product, uncomplicated; E11.65 Type 2 diabetes mellitus with hyperglycemia; E66.01 Morbid (severe) obesity due to excess calories; E11.22 Type 2 diabetes mellitus with diabetic chronic kidney disease; R03.0 Elevated blood-pressure reading, without diagnosis of hypertension; E87.6 Hypokalemia; N18.32 Chronic kidney disease, stage 3b; T50.906A Underdosing of unspecified drugs, medicaments and biological substances, initial encounter; Z91.120 Patient's intentional underdosing of medication regimen due to financial hardship; Z91.040 Latex allergy status; Z83.3 Family history of diabetes mellitus; Z82.49 Family history of ischemic heart disease and other diseases of the circulatory system; Z79.899 Other long term (current) drug therapy; Z79.4 Long term (current) use of insulin; Z79.84 Long term (current) use of oral hypoglycemic drugs; Z87.01 Personal history of pneumonia (recurrent)
CPT/HCPCS: 0202U; 36415; 36600; 71045; 80048; 80053; 82805; 82948; 83605; 83880; 84100; 84484; 85025; 87040; 87045; 87046; 87427; 87493; 93005; 93308; 94640; 94761; 94799; 96365; 96366; 96367; 96368; 96372; 96375; 96376; 99285; J0248; J0360; J0456; J0696; J1650; J1940; J3480; J8540

== ENCOUNTER 2023-11-25 12:44 | Outpatient (OUT) | payer BC, SELFPAY ==
--- OUTSIDE RECORDS SUMMARY | 2023-11-25 12:51 | XMS_ITS | CCD ---
Author Name Unknown Address [address] [facility] [address] [place] [address] Organization [facility] Care Team Providers Care Mask Designer Name Role Phone TAMLYN ., HIEU Attending [...] Unavailable ZEFERINO, DR BARBOZA Primary Care Unavailable BRYCE ., DR ARMENDARIZ Attending Unavailable BRYCE ., DR ARMENDARIZ Admitting Unavailable SAMSA ., DORA Procedure Practitioner Unavailab saba Matthews, DR ARMENDARIZ Consulting Unavailable VINNY JACKSON V Consulting Unavailable BETHANY, DR KATALINA Mcdaniels Consulting Unavailable DEVIN, DR OPAL Bonilla Consulting Unavailable JOHNSON .DONAVAN Consulting Unavailabl e SAM ., DORA Consulting Unavailable HAILEY GALLOWAY Consulting Unavailable DIXIE KHAN Consulting Unavailable LILIANA DICKENS Consulting Unavailable ZEFERINO, DR BARBOZA Consulting Unavailable ZEFERINO, DR BARBOZA Attending Unavailable ZEFERINO, DR BARBOZA Admitting Unavailable ZEFERINO, DR BARBOZA Primary Care Unavailable TAMTUSHARN ., HIEU Procedure Practitioner Unavailab saba DERAS, DR BARBOZA Primary Care Unavailable FAWWAD, BEAVERS H Attending Unavailable FAWWAD, BEAVERS H Admitting Unavailable GRILLIS ., DR LILIANA Vaughn Consulting Unavaila disha WU ., DR ARMENDARIZ Consulting Unavailable MARVIN, BEAVERS H Procedure Practitioner UnavailVINNY Earl V Consulting Unavailable BETHANY, DR KATALINA Mcdaniels Consulting Unavailable PAY ., DR ODEN Consulting Unavailable SEGUNDOCHNY ., DONAVAN SCHWAB Consulting Unavailnato WONG, SHAIKH Jennifer Consulting Unavailable SATURNINO GRUBER Consulting Unavailable NAMITA II, RAIZA Consulting Unavailable TAMLYN ., HIEU Consulting Unavailable AMANDAUTZEKEV Consulting Unavailable TAMLYN ., HIEU Admitting Unavailable ZEFERINO, DR BARBOZA Primary Care Unavailable TAMLYN ., HIEU Attending Unavailable TAMGEORGIE ., HIEU Attending Unavailable ZEFERINO, DR BARBOZA Primary Care Unavailable TAMLYN ., HIEU Admitting Unavailable TAMLYN ., HIEU Attending Unavailable ZEFERINO, DR ABRBOZA Primary Care Unavailable TAMLYN ., HIEU Admitting Unavailable Asaad, Imad Unavailable Asaad, Imad Admitting Unavailable Asaad, Imad Attending Unavailable Ayaan Deras Primary Care Unavailable Ayaan Deras Primary Care Unavailable Asaad, Imad Admitting Unavailable Asaad, Imad Attending Unavailable Ayaan Deras Primary Care Unavailable Asaad, Imad Admitting Unavailable Asaad, Imad Attending Unavailable RINA BENAVIDES Attending Unavailable Allergies Allergy Classification Reported Allergen(s) Allergy Type Date of Onset Reaction(s) Facility (1 source) Latex Drug allergy (disorder) [facility] Repository (1 source) Latex rubber gloves Drug allergy Unknown modulR Other (1 source) Latex Drug allergy (disorder) 03-19-2023 [facility] Repository Medications Current Medications Medication Drug Class(es) [...] Once a day Active polyethylene glycol 3350 [id number] mg / potassium chloride 2970 mg / sodium bicarbonate 6740 mg / sodium chloride 5860 mg / sodium sulfate 19872 mg powder for oral solution (1 source) [...] Onset: 12-03-2022 Episodic Other aftercare (1 source) longterm (current) use of oral hypoglycemic drugs; Translations: [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 Performed By: #### C ELIAC #### [facility] , #### TSH3, ESR, CRP #### [place] [id number] [facility] Glucose [Mass/Vol] 93 mg/dL Normal [facility] Comment on above: Result Comment: [facility] Glucose Reference Range is dependent on time and content of last meal. Glucose of more than 200 mg/dL in a nonstressed, ambulatory subject supports the diagnosis of Diabetes Mellitus. Performed By: #### C ELIAC #### [facility] , #### TSH3, ESR, CRP #### [facility] [address] [place] [id number] [facility] Christiano 03-19-2023 L --- Specimen: [id number] Received: 03/19/23 Status: CORRY Alma Delia Num: [id number] Spec Type: Surgical Subm Dr: Carolyn Ramsey MD Tissues: A Colon Biopsy (RANDOM COLON BX) Procedures: HE/Gem, Gross/Micro L4 Age/ Patient Sex Location Account Attending Physician Daryl Roque 53/F [id number] Carolyn Ramsey MD SPEC NUM: [id number] RECD: 03/19/23 STATUS: CORRY FLANNERY NUM: [id number] MARIANNA: 03/19/23 DR: Carolyn Ramsey MD ENTERED: 03/19/[address] [facility] [address]: MELLISSA TYPE: Surgical DEPT: S [...] microscopic examination confirms the diagnosis. CPT Codes 08659 Specimen: [id number] Received: 03/19/23 Status: CORRY Flannery Num: [id number] Spec Type: Surgical Subm Dr: Carolyn Ramsey MD Tissues: A Colon Biopsy (RANDOM COLON BX) Procedures: HE/2, Gross/Micro L4 Patient: Daryl Roque [id number] (Continued) Signed (signature on file) Kelsea Sullivan MD 03/20/23 1035 Normal [facility] Calprotectin, Fecalon 2022 Calprotectin, Fecal 6 Normal 0-120 [facility] Comment on above: Order Comment: Reaso n for Exam Diarrhea Result Comment: Conc entration Interpretation Follow-Up < 5 - 50 ug/g Normal None >50 -120 ug/g Borderline Re-evaluate in 4-6 weeks >120 ug/g Abnormal Repeat as clinically indicated Performed at: - [facility] [id number] [place] Tender: Mary Sung MD, Phone: [phone] PERFORMED BY: [facility] [address] [place] [address] PATHOLOGIST WELDING MACHINE OPERATOR GAS METAL ARC PAT NORWOOD M.D. Performed By: #### C ALPROTECT, OPEXAM, ELASTASE STOOL #### [facility] , #### CDT, CUSTOOL #### [facility] [address] [place] [address] Clostridium Difficileon 02-24 Clostridium Difficile Positive Normal Negative [facility] Comment on above: Order Comment: Reaso n for Exam Diarrhea Result Comment: Test ing performed by RT-PCR PERFORMED BY: [place] [address] PATHOLOGIST WELDING MACHINE OPERATOR GAS METAL ARC PAT NORWOOD M.D. Performed By: #### C ALPROTECT, OPEXAM, ELASTASE STOOL #### [facility] , #### CDT, CUSTOOL #### [facility] [address] [place] [address] OVA AND PARASITEon OVA AND PARASITE Reason [...] possibility of a parasitic infection. Performed at: [facility] [id number] [place] Tender: Louis Hansen PhD, Phone: [phone] PERFORMED BY: [place] [address] PATHOLOGIST WELDING MACHINE OPERATOR GAS METAL ARC PAT NORWOOD M.D. Normal [facility] Comment on above: Performed By: #### C ALPROTECT, OPEXAM, ELASTASE STOOL #### [facility] , #### CDT, CUSTOOL #### [facility] [address] [place] [address] [place] Pancreatic Elastase, Stoolon 03-18-2023 Pancreatic Elastase, Stool >500 Normal >200 [facility] Comment on above: Order Comment: Reaso n for Exam Diarrhea Result Comment: Resu lt Units: ug Elast./g Severe Pancreatic Insufficiency: <100 Moderate Pancreatic Insufficiency: 100 - 200 Normal: >200 Performed at: - [facility] [id number] [place] Tender: Mary Sung MD, Phone: [phone] Performed By: #### C ALPROTECT, OPEXAM, ELASTASE STOOL #### [facility] , #### CDT, CUSTOOL #### [address] Stool Cultureon 03-18-2023 Stool culture Reason for Exam Diarrhea Stool Reason for Exam: Diarrhea : Stool Negative for Shiga Toxin 1 Negative for Shiga Toxin 2 -------- A negative Shiga Toxin result may occur if the antigen level in the specimen is below the detection limit of the assay. Stool culture results No Salmonella, Shigella, Campy or E. coli 0157:H7 Isolated PERFORMED BY: [place] [address] PATHOLOGIST WELDING MACHINE OPERATOR GAS METAL ARC PAT NORWOOD M.D. [facility] Comment on above: Performed By: #### C ALPROTECT, OPEXAM, ELASTASE STOOL #### [facility] , #### CDT, CUSTOOL #### [address] C-Reactive Proteinon 023 C-Reactive Protein 1.0 mg/dL High 0.0-0.[address] [facility] Comment on above: Order Comment: Reaso n for Exam Diarrhea Performed By: #### C ELIAC #### [facility] , #### TSH3, ESR, CRP #### [facility] [address] [place] [address] Celiacon 03-11-2023 Deamidated Gliadin Abs, IgA 9 Normal 0-19 [facility] Comment on above: Order Comment: Reaso n for Exam Diarrhea Result Comment: Nega tive 0 - 19 Weak Positive 20 - 30 Moderate to Strong Positive >30 Performed By: #### C ELIAC #### [facility] , #### TSH3, ESR, CRP #### [facility] [address] [place] [address] [place] Deamidated Gliadin Abs, IgG 3 Normal 0-19 [facility] Comment on above: Order Comment: Reaso n for Exam Diarrhea Result Comment: Nega tive 0 - 19 Weak Positive 20 - 30 Moderate to Strong Positive >30 Performed By: #### C ELIAC #### [facility] , #### TSH3, ESR, CRP #### [facility] [address] [place] [address] [place] Endomysial Antibody IgA Negative Normal Negative [facility] Comment on above: Order Comment: Reaso n for Exam Diarrhea Performed By: #### C ELIAC #### [facility] , #### TSH3, ESR, CRP #### [facility] [address] [place] [address] [place] Immunoglobulin A, Qn, Serum 267 mg/dL Normal 87-352 [facility] Comment on above: Order Comment: Reaso n for Exam Diarrhea Result Comment: Perf ormed at: [facility] [address] [id number] [place] Tender: Louis Hansen PhD, Phone: [phone] PERFORMED BY: [place] [address] PATHOLOGIST WELDING MACHINE OPERATOR GAS METAL ARC PAT NORWOOD M.D. Performed By: #### C ELIAC #### [facility] , #### TSH3, ESR, CRP #### [facility] [address] [place] [address] [place] T-Transglutaminase (tTG) IgA <2 Normal 0-3 [facility] Comment on above: Order Comment: Reaso n for Exam Diarrhea Result Comment: Nega tive 0 - 3 Weak Positive 4 - 10 Positive >10 Tissue Transglutaminase (tTG) has been identified as the endomysial antigen. Studies have demonstr- ated that endomysial IgA antibodies have over 99% specificity for gluten sensitive enteropathy. Performed By: #### C ELIAC #### [facility] , #### TSH3, ESR, CRP #### [facility] [address] T-Transglutaminase (tTG) IgG <2 Normal 0-5 [facility] Comment on above: Order Comment: Reaso n for Exam Diarrhea Result Comment: Nega tive 0 - 5 Weak Positive 6 - 9 Positive >9 Performed By: #### C ELIAC #### [facility] , #### TSH3, ESR, CRP #### [address] Erythrocyte Sedimentation Ra jose 03-11-2023 ESR (Bld) [Velocity] 98 mm/h High 0-29 [facility] Comment on above: Order Comment: Reaso n for Exam Diarrhea Result Comment: PERF ORMED BY: [place] [address] PATHOLOGIST WELDING MACHINE OPERATOR GAS METAL ARC PAT NORWOOD M.D. Performed By: #### C ELIAC #### [facility] , #### TSH3, ESR, CRP #### [address] Thyroid Stimulating Hormoneo n 03-11-2023 TSH Qn 0.34 m[IU]/L Low 0.45-5.33 [facility] Comment on above: Order Comment: Reaso n for Exam Diarrhea Result Comment: PERF ORMED BY: [place] [address] PATHOLOGIST WELDING MACHINE OPERATOR GAS METAL ARC PAT NORWOOD M.D. Performed By: #### C ELIAC #### [facility] , #### TSH3, ESR, CRP #### [address] ACID FAST SMEAR AND CXon Acid Fast Culture Negative Normal [facility] Comment on above: Result Comment: No a junior fast bacilli isolated after 6 weeks. Performed By: #### A FB ####[facility] [address] [place] [id number]. Kalie Bess Acid Fast Smear Negative Normal [facility] Comment on above: Performed By: #### A FB ####[facility] Ehxgfmpihh[address] [place] [id number]. Kalie Bess AFB Specimen Processing Direct Inoculation Normal [facility] Comment on above: Performed By: #### A FB ####[facility] Lq[address]olt[address] [place], [place] [address]Dr. Kalie Bess PRBC LEUKOREDUCEDon 12-31-19 23 PRBC LEUKOREDUCED Normal [facility] Comment on above: Performed By: #### P RBC ####[facility] Ron[address] [place], [place] [address]Dr. Kalie Bess FUNGAL CULTUREon 12-29-2022 Fungus (Mycology) Culture Final report Normal [facility] Comment on above: Performed By: #### C XFUN ####[facility] C[address] [place], [place] [address]Dr. Kalie Bess Fungus Stain Final report Normal [facility] Comment on above: Performed By: #### C XFUN ####[facility] Z[address] [place], [place] [address]Dr. Kalie Bess Result 1 Comment Normal [facility] Comment on above: Result Comment: GILMA/ Calcofluor preparation: no fungus observed. Performed By: #### C XFUN ####[facility] [address] [place], [place] [address]Dr. Kalie Bess Result Comment: No y east or mold isolated after 4 weeks. C. DIFF PCRon 12-26-2022 C. DIFFICILE PCR Negative Normal [facility] Comment on above: Performed By: #### C DIFPOC ####[facility] Y[address]em[address] [place], [place] [address]Dr. Kalie Bess CBC AUTO DIFFon 11-30-2022 BASO # 0.1 103/ul Normal 0.0-0.1 [facility] Comment on above: Performed By: #### C BC ####[facility] [address]os[address] [place] [id number]. Kalie Bess Basophils/100 WBC (Bld) 0.4 % Normal 0.2-2.0 [facility] Comment on above: Performed By: #### C BC ####[facility] Q[address] [place] [id number]. Kalie Bess EO # 0.4 103/ul Normal 0.0-0.7 [facility] Comment on above: Performed By: #### C BC ####[facility] [address] [place], [place] [address]Dr. Kalie Bess Eosinophils/100 WBC (Bld) 2.5 % Normal 0.9-7.0 [facility] Comment on above: Performed By: #### C BC ####[facility] [address] [place], [place] [address]Dr. Kalie Bess Erythrocyte distribution width (RBC) [Ratio] 14.1 % Normal 11.0-15.0 [facility] Comment on above: Performed By: #### C BC ####[facility] [address] [place], [place] [address]Dr. Kalie Bess Hematocrit (Bld) [Volume fraction] 24.3 % Critically low 36.0-48.0 [facility] Comment on above: Performed By: #### C BC ####[facility] [address] [place], [place] [address]Dr. Kalie Bess Hemoglobin (Bld) [Mass/Vol] 7.3 g/dL Critically low 12.0-16.0 [facility] Comment on above: Performed By: #### C BC ####[facility] [address] [place] [id number]. Kalie Bess IG # 0.29 10e3/ul Critically high 0.00-0.03 [facility] Comment on above: Performed By: #### C BC ####[facility] E[address] [place], [place] [address]Dr. Kalie Bess IG % 1.9 % Critically high 0.0-0.5 [facility] Comment on above: Performed By: #### C BC ####[facility] [address]feyc[address] [place] [id number]. Kalie Bess LYMPH # 3.6 103/ul Normal 1.2-3.8 [facility] Comment on above: Performed By: #### C BC ####[facility] [address]fs01[address] [place], [place] [address]Iy. Kalie Bess Lymphocytes/100 WBC (Bld) 23.1 % Normal 20.5-60.0 [facility] Comment on above: Performed By: #### C BC ####[facility] E[address]yzjf[address] [place] [id number]. Kalie Shahriar MANUAL DIFF REQ NO Normal [facility] Comment on above: Performed By: #### C BC ####[facility] Qxs[address]iiinwx4[address] [place] [id number]. Kalie Bess MCH (RBC) [Entitic mass] 28.9 pg Normal 26.7-34.0 [facility] Comment on above: Performed By: #### C BC ####[facility] [address]lxrlj[address] [place] [id number]. Kalie Bess MCHC (RBC) [Mass/Vol] 30.0 g/dL Normal 29.9-35.2 [facility] Comment on above: Performed By: #### C BC ####[facility] B[address]hemckg[address] [place] [id number]. Kalie Bess MCV (RBC) [Entitic vol] 96.0 fL Normal 81.0-99.0 [facility] Comment on above: Performed By: #### C BC ####[facility] X[address]ho[address] [place] [id number]. Kalie Bess MONO # 0.8 103/ul Normal 0.3-0.8 [facility] Comment on above: Performed By: #### C BC ####[facility] Wir[address]ebels[address] [place] [id number]. Kalie Shahriar Monocytes/100 WBC (Bld) 5.0 % Normal 1.7-12.0 [facility] Comment on above: Performed By: #### C BC ####[facility] Adwwkgdtyo[address] [place] [id number]. Kalie Bess NEUT # 10.5 103/ul Critically high 1.4-6.5 [facility] Comment on above: Performed By: #### C BC ####[facility] Ulxqkttcdf[address] [place] [id number]. Kalie Bess Neutrophils/100 WBC (Bld) 67.1 % Normal 43.0-75.0 [facility] Comment on above: Performed By: #### C BC ####[facility] [address]tlpuu[address] [place] [id number]. Kalie Bess Platelet mean volume (Bld) [Entitic vol] 10.8 fL Normal 9.5-13.5 [facility] Comment on above: Performed By: #### C BC ####[facility] [address] [place] [address]Dr. Kalie Bess PLT 272 103/ul Normal 150-450 [facility] Comment on above: Performed By: #### C BC ####[facility] [address]hqumhc[address] [place] [address]Dr. Kalie Bess RBC 2.53 106/ul Critically low 4.20-5.40 [facility] Comment on above: Performed By: #### C BC ####[facility] Mvkkgtxnki7[address] [place] [id number]. Kalie Bess WBC 15.7 103/ul Critically high 4.0-11.0 [facility] Comment on above: Performed By: #### C BC ####[facility] X[address]hgpbxvm26[address] [place] [id number]. Kalie Bess CRPon 11-30-2022 CRP 4.9 mg/dL Critically high <=1.0 [facility] Comment on above: Performed By: #### C RP, CMP ####[facility] L[address]mb[address]qwhjo[address] [place] [address]Dr. Kalie Bess POINT OF CARE GLUCOSEon Glucose [Mass/Vol] 295 mg/dL Critically high 74-106 T [facility] Comment on above: Performed By: #### P OCGLUC ####[facility] Pawvmppxtm[address] [place] [address]Dr. Shayyroxie Shahriar Glucose [Mass/Vol] 166 mg/dL Critically high 74-106 T [facility] Comment on above: Performed By: #### P OCGLUC ####[facility] [address]jivfs[address] [place] [address]Dr. Kalie Bess PROF 14(COMP METB)on 023 Albumin [Mass/Vol] 1.6 g/dL Critically low 3.4-5.0 [facility] Comment on above: Performed By: #### C RP, CMP ####[facility] O[address]qk[address] [place] [address]Dr. Kalie Bess Albumin/Globulin [Mass ratio] 0.4 {ratio} Normal [facility] Comment on above: Performed By: #### C RP, CMP ####[facility] Rcvlmf[address]toj[address] [place], [place] [address]Dr. Kalie Bess ALP [Catalytic activity/Vol] 115 U/L Normal 46-116 [facility] Comment on above: Performed By: #### C RP, CMP ####[facility] Pmwpznseyk67[address] [place] [address]Dr. Kalie Bess ALT [Catalytic activity/Vol] 21 U/L Normal 14-59 [facility] Comment on above: Performed By: #### C RP, CMP ####[facility] B[address]qvukfe[address] [place] [address]Dr. Kalie Bess Anion gap [Moles/Vol] 10.2 mmol/L Normal [facility] Comment on above: Performed By: #### C RP, CMP ####[facility] Qzbvfnohei[address] [place], [place] [address]Dr. Kalie Bess AST [Catalytic activity/Vol] 15 U/L Normal 15-37 [facility] Comment on above: Performed By: #### C RP, CMP ####[facility] P[address]iznsrkle[address] [place], [place] [address]Dr. Kalie Bess Bilirubin [Mass/Vol] 0.1 mg/dL Critically low 0.2-1.0 [facility] Comment on above: Performed By: #### C RP, CMP ####[facility] Jpcbeutdwd7[address] [place] [address]Dr. Kalie Bess Calcium [Mass/Vol] 8.1 mg/dL Critically low 8.5-10.1 [facility] Comment on above: Performed By: #### C RP, CMP ####[facility] H[address]ygkekft4[address] [place] [address]Dr. Kalie Bess Chloride [Moles/Vol] 104 mmol/L Normal 98-107 [facility] Comment on above: Performed By: #### C RP, CMP ####[facility] Ilpmqnasci[address] [place], [place] [address]Dr. Kalie Bess CO2 [Moles/Vol] 26.1 mmol/L Normal 21.0-32.0 [facility] Comment on above: Performed By: #### C RP, CMP ####[facility] Avmsqlybno[address] [place], [place] [address]Dr. Kalie Shahriar Creatinine [Mass/Vol] 1.88 mg/dL Critically high 0.55-1.02 [facility] Comment on above: Performed By: #### C RP, CMP ####[facility] Pkrkeuqnwi[address] [place], [place] [address]Dr. Kalie Shahriar EGFR-AF TANZANIAN 34 mL/min/1.73m2 Critically low >=60 [facility] Comment on above: Performed By: #### C RP, CMP ####[facility] Mnwbapdijd[address] [place], [place] [address]Dr. Kalie Shahriar EGFR-NON AF TANZANIAN 28 mL/min/1.73m2 Critically low >=60 [facility] Comment on above: Performed By: #### C RP, CMP ####[facility] Nnxrtkyjkb[address] [place], [place] [address]Dr. Kalie Bess Globulin (S) [Mass/Vol] 4.5 g/dL Normal [facility] Comment on above: Performed By: #### C RP, CMP ####[facility] Kpqhgnzjms[address] [place], [place] [address]Dr. Kalie Bess Glucose [Mass/Vol] 171 mg/dL Critically high 74-106 T [facility] Comment on above: Performed By: #### C RP, CMP ####[facility] J[address]ccajvtn05[address] [place] [address]Dr. Kalie Bess Potassium [Moles/Vol] 4.3 mmol/L Normal 3.5-5.1 [facility] Comment on above: Performed By: #### C RP, CMP ####[facility] Tsergrymsc[address] [place], [place] [address]Dr. Kalie Bess Protein [Mass/Vol] 6.1 g/dL Critically low 6.4-8.2 Th [facility] Comment on above: Performed By: #### C RP, CMP ####[facility] Yfjydssuwx[address] [place], [place] [address]Dr. Kalie Bess Sodium [Moles/Vol] 136 mmol/L Normal 136-145 [facility] Comment on above: Performed By: #### C RP, CMP ####[facility] Qhsvnkidij[address] [place], [place] [address]Dr. Kalie Bess Urea nitrogen [Mass/Vol] 17.0 mg/dL Normal 7.0-18.0 [facility] Comment on above: Performed By: #### C RP, CMP ####[facility] Seomitnong[address] [place], [place] [address]Dr. Kalie Bess Urea nitrogen/Creatinine [Mass ratio] 9.0 mg/mg Normal [facility] Comment on above: Performed By: #### C RP, CMP ####[facility] Okicgfftgu[address] [place], [place] [address]Dr. Kalie Bess SED RATE WESTERGRENon 2022 SED RATE 77 mm/hr Critically high <=30 [facility] Comment on above: Performed By: #### S EDR ####[facility] Dyn[address]axd[address] [place], [place] [address]Dr. Kalie Bess CBC AUTO DIFFon 11-29-2022 BASO # 0.1 103/ul Normal 0.0-0.1 [facility] Comment on above: Performed By: #### C BC ####[facility] Dsjziqdiux34[address] [place] [id number]. Kalie Bess Basophils/100 WBC (Bld) 0.3 % Normal 0.2-2.0 [facility] Comment on above: Performed By: #### C BC ####[facility] Tcyjjxlgak77[address] [place] [id number]. Kalie Bess EO # 0.4 103/ul Normal 0.0-0.7 [facility] Comment on above: Performed By: #### C BC ####[facility] [address] [place], [place] [address]Dr. Kalie Bess Eosinophils/100 WBC (Bld) 2.3 % Normal 0.9-7.0 [facility] Comment on above: Performed By: #### C BC ####[facility] Yzncdthsbv[address] [place], [place] [address]Dr. Kalie Bess Erythrocyte distribution width (RBC) [Ratio] 14.0 % Normal 11.0-15.0 [facility] Comment on above: Performed By: #### C BC ####[facility] Vqdcdlspbl37[address] [place] [id number]. Kalie Bess Hematocrit (Bld) [Volume fraction] 24.7 % Critically low 36.0-48.0 [facility] Comment on above: Performed By: #### C BC ####[facility] Y[address] [place], [place] [address]Dr. Kalie Bess Hemoglobin (Bld) [Mass/Vol] 7.5 g/dL Critically low 12.0-16.0 [facility] Comment on above: Performed By: #### C BC ####[facility] Fncqtodqxx[address] [place] [id number]. Kalie Bess IG # 0.37 10e3/ul Critically high 0.00-0.03 [facility] [facility] Comment on above: Performed By: #### C BC ####[facility] Pqzzzz[address] [place], [place] [address]Dr. Kalie Bess IG % 2.1 % Critically high 0.0-0.5 [facility] Comment on above: Performed By: #### C BC ####[facility] Cjomomaeza36[address] [place] [id number]. Kalie Shahriar LYMPH # 3.3 103/ul Normal 1.2-3.8 [facility] Comment on above: Performed By: #### C BC ####[facility] Vdhifzizdu8529 [place] [phone]. Shayyroxie Bess Lymphocytes/100 WBC (Bld) 18.8 % Critically low 20.5-60.0 [facility] Comment on above: Performed By: #### C BC ####[facility] Jujahzsolu1668 [place] [phone]. Kalie Bess MANUAL DIFF REQ NO Normal [facility] Comment on above: Performed By: #### C BC ####[facility] Hoybfkxbgd3672 [place] [phone]. Kalie Bess MCH (RBC) [Entitic mass] 28.8 pg Normal 26.7-34.0 [facility] Comment on above: Performed By: #### C BC ####[facility] Fpymopxiih4785 [place] [phone]. Kalie Shahriar MCHC (RBC) [Mass/Vol] 30.4 g/dL Normal 29.9-35.2 [facility] Comment on above: Performed By: #### C BC ####[facility] Nzmfippxvu0308 [place] [phone]. Kalie Bess MCV (RBC) [Entitic vol] 95.0 fL Normal 81.0-99.0 [facility] Comment on above: Performed By: #### C BC ####[facility] Dwdehamshx1728 [place] [phone]. Sahyyroxie Shahriar MONO # 0.9 103/ul Critically high 0.3-0.8 [facility] Comment on above: Performed By: #### C BC ####[facility] Oijzndnmja3160 [place] [phone]. Kalie Bess Monocytes/100 WBC (Bld) 5.1 % Normal 1.7-12.0 [facility] Comment on above: Performed By: #### C BC ####[facility] Omnspuschg0996 [place] [phone]. Kalie Bess NEUT # 12.3 103/ul Critically high 1.4-6.5 [facility] Comment on above: Performed By: #### C BC ####[facility] Ryzrgrnmus3571 [place] [phone]. Kalie Bess Neutrophils/100 WBC (Bld) 71.4 % Normal 43.0-75.0 [facility] Comment on above: Performed By: #### C BC ####[facility] Vdzutvjbfa8184 [place] [address]Dr. Kalie Bess Platelet mean volume (Bld) [Entitic vol] 10.7 fL Normal 9.5-13.5 [facility] Comment on above: Performed By: #### C BC ####[facility] Fflrvewvgk5477 [place] [address]Dr. Kalie Bess PLT 268 103/ul Normal 150-450 [facility] Comment on above: Performed By: #### C BC ####[facility] Twrozoojxo2368 [place] [phone]. Kalie Bess RBC 2.60 106/ul Critically low 4.20-5.40 [facility] Comment on above: Performed By: #### C BC ####[facility] Bhlhqavdec2838 [place] [address]Dr. Kalie Bess WBC 17.3 103/ul Critically high 4.0-11.0 [facility] Comment on above: Performed By: #### C BC ####[facility] Cpwyljthgi4844 [place] [phone]. Kalie Bess CBC W MANUAL DIFFon 11-29-19 23 ATYPICAL LYMPH # 0.00 103/ul Normal [facility] Comment on above: Performed By: #### C BCMAN ####[facility] Msayffbxld3954 [place] [phone]. Kalie Bess ATYPICAL LYMPH % 0 % Normal [facility] Comment on above: Performed By: #### C BCMAN ####[facility] Njcvbbcukc6223 [place] [address]Dr. Yilan Bess BAND # 0.2 103/ul Normal 0.0-0.3 [facility] Comment on above: Performed By: #### C NANCY ####[facility] Xwyclcvxtl9549 [place] [address]Dr. Yilan Bess BAND % 1 % Normal 0-5 [facility] Comment on above: Performed By: #### C BCGABRIELLA ####[facility] Jhjmcxvktd6737 [place] [address]Dr. Yilan Bess BASOM # 0.00 103/ul Normal 0.00-0.10 [facility] Comment on above: Performed By: #### C NANCY ####[facility] Imwvoqvdwo[address] [place], [place] [address]Dr. Yiroxie Bess BASOM % 0.0 % Critically low 0.2-2.0 [facility] Comment on above: Performed By: #### C NANCY ####[facility] Kcningqgzm[address] [place], [place] [address]Dr. Yilan Bess BLAST # Normal [facility] Comment on above: Performed By: #### C NANCY ####[facility] Tgpyeajowb179[address] [place], [place] [address]Dr. Yilan Bess BLAST % Normal [facility] Comment on above: Performed By: #### C NANCY ####[facility] Abjgjgtcuv90[address] [place], [place] [address]Dr. Kalie Bess CORRECTED WBC Normal 4.0-11.[address] [facility] Comment on above: Performed By: #### C NANCY ####[facility] Smnfbbsscs2361 [place] [address]Dr. Yiroxie Bess EOS # 0.78 103/ul Critically high 0.00-0.70 [facility] Comment on above: Performed By: #### C NANCY ####[facility] Ixcsjixvey417[address] [place], [place] [address]Dr. Yiroxie Bess EOS% 4.0 % Normal 0.9-7.0 [facility] Comment on above: Performed By: #### C NANCY ####[facility] Dczmokbuce3449 [place], [place] [address]Qb. Kalie Bess HCT 24.8 % Critically low 36.0-48.0 [facility] Comment on above: Performed By: #### C NANCY ####[facility] Aqsbiqjhgt6137 [place], [place] [address]Bw. Kalie Bess HGB 7.4 g/dl Critically low 12.0-16.0 [facility] Comment on above: Performed By: #### C NANCY ####[facility] Ugiurzowya6396 [place] [phone]. Kaile Bess HYPOCHROMASIA 1+ Normal [facility] Comment on above: Performed By: #### C NANCY ####[facility] Skgeukjuvr2838 [place] [phone]. Kalie Bess LYMPHM # 1.94 103/ul Normal 1.20-3.80 [facility] Comment on above: Performed By: #### C NANCY ####[facility] Kvvsjnknon4018 [place] [phone]. Kalie Bess LYMPHM% 10.0 % Critically low 20.5-60.0 [facility] Comment on above: Performed By: #### C NANCY ####[facility] Rpmvetjtix1161 [place] [phone]. Kalie Bess MCH 28.8 pg Normal 26.7-34.0 [facility] Comment on above: Performed By: #### C NANCY ####[facility] Poztenjkpd7874 [place] [phone]. Kalie Bess MCHC 29.8 g/dl Critically low 29.9-35.2 [facility] Comment on above: Performed By: #### C NANCY ####[facility] Thtzraqkde6196 [place] [phone]. Kalie Bess MCV 96.5 fL Normal 81.0-99.0 [facility] Comment on above: Performed By: #### C NANCY ####[facility] Sxvkxxkuna7611 [place] [phone]. Kalie Bess METAMYELOCYTE # Normal [facility] Comment on above: Performed By: #### C NANCY ####[facility] Hslaroswop4061 [place] [phone]. Kalie Bess METAMYELOCYTE % Normal [facility] Comment on above: Performed By: #### C NANCY ####[facility] Moqakubosv8708 [place] [phone]. Kalie Bess MICROCYTOSIS SLIGHT Normal [facility] Comment on above: Performed By: #### C NANCY ####[facility] Cvdlbtnqoz1581 [place] [phone]. Kalie Bess MONOM# 0.97 103/ul Critically high 0.30-0.80 [facility] Comment on above: Performed By: #### C NANCY ####[facility] Ddvewuhjqp4731 [place] [address]Dr. Kalie Bess MONOM% 5.0 % Normal 1.7-12.0 [facility] Comment on above: Performed By: #### C NANCY ####[facility] Cjngiitwbf4603 [place] [address]Dr. Kalie Bess MPV 10.9 fL Normal 9.5-13.5 [facility] Comment on above: Performed By: #### C NANCY ####[facility] Hhepquqivj7255 [place] [phone]. Kalie Bess MYELOCYTE # Normal [facility] Comment on above: Performed By: #### C NANCY ####[facility] Tmcrqgrrmc8638 [place] [phone]. Kalie Bess MYELOCYTE % Normal [facility] Comment on above: Performed By: #### C NANCY ####[facility] Axqrvctxek[address] [place], [place] [address]Dr. Kalie Bess NRBC Normal [facility] Comment on above: Performed By: #### C NANCY ####[facility] Jcozmpjsim5102 [place] [phone]. Kalie Shahriar PLT 271 103/ul Normal 150-450 [facility] Comment on above: Performed By: #### C BCMAN ####[facility] Skafrvukgg7043 [place], [place] [address]Lq. Kalie Bess RBC 2.57 106/ul Critically low 4.20-5.40 [facility] Comment on above: Performed By: #### C BCMAN ####[facility] Heqkpwowck4128 [place], [place] [address]Gc. Kalie Bess RDW 14.1 % Normal 11.0-15.0 [facility] Comment on above: Performed By: #### C BCMAN ####[facility] Mqjtipkhqj3802 [place], [place] [address]Se. Kalie Bess SEG # 15.52 103/ul Critically high 1.40-6.50 [facility] Comment on above: Performed By: #### C BCMAN ####[facility] Wlwcmgxhxd1787 [place], [place] [address]Ho. Kalie Bess SEG % 80.0 % Critically high 43.0-75.0 [facility] Comment on above: Performed By: #### C BCMAN ####[facility] Jdolhynxmt2565 [place], [place] [address]Si. Kalie Bess STOMATOCYTES SLIGHT Normal [facility] Comment on above: Performed By: #### C BCMAN ####[facility] Ogmfhaeusg9655 [place], [place] [address]Ef. Kalie Bess WBC 19.4 103/ul Critically high 4.0-11.0 [facility] Comment on above: Performed By: #### C BCMAN ####[facility] Cdtjoagial2622 [place], [place] [address]Sf. Kalie Bess CRPon 11-29-2022 CRP 5.7 mg/dL Critically high <=1.0 [facility] Comment on above: Performed By: #### C MP, CRP ####[facility] Jzimskobdr7082 [place], [place] [address]Qn. Kalie Bess POINT OF CARE GLUCOSEon Glucose [Mass/Vol] 225 mg/dL Critically high 74-106 T [facility] Comment on above: Performed By: #### P OCGLUC ####[facility] Gwljbotnzk7629 [place] [phone]. Kalie Bess Glucose [Mass/Vol] 144 mg/dL Critically high 74-106 [facility] Comment on above: Performed By: #### P OCGLUC ####[facility] Pryycpnmqv3962 [place] [phone]. Kalie Bess Glucose [Mass/Vol] 243 mg/dL Critically high 74-106 [facility] Comment on above: Performed By: #### P OCGLUC ####[facility] Evurepwwqz6746 [place] [phone]. Kalie Bess Glucose [Mass/Vol] 214 mg/dL Critically high 74-106 [facility] Comment on above: Performed By: #### P OCGLUC ####[facility] Nvuxwwqzbm0574 [place] [address]Dr. Kalie Bess PROF 14(COMP METB)on 023 Albumin [Mass/Vol] 1.5 g/dL Critically low 3.4-5.0 [facility] Comment on above: Performed By: #### C MP, CRP ####[facility] Xlerxaiayb4147 [place] [address]Dr. Kalie Bess Albumin/Globulin [Mass ratio] 0.4 {ratio} Normal [facility] Comment on above: Performed By: #### C MP, CRP ####[facility] Bvodnnlxyc7065 [place] [address]Dr. Shayyroxie Shahriar ALP [Catalytic activity/Vol] 117 U/L Critically high 46-116 [facility] Comment on above: Performed By: #### C MP, CRP ####[facility] Biynregmye3920 [place] [address]Dr. Kalie Bess ALT [Catalytic activity/Vol] 21 U/L Normal 14-59 [facility] Comment on above: Performed By: #### C MP, CRP ####[facility] Lytrrkbbqs0183 [place] [phone]. Kalie Bess Anion gap [Moles/Vol] 9.7 mmol/L Normal [facility] Comment on above: Performed By: #### C MP, CRP ####[facility] Giwjruleux6822 [place] [address]Dr. Kalie Bess AST [Catalytic activity/Vol] 16 U/L Normal 15-37 [facility] Comment on above: Performed By: #### C MP, CRP ####[facility] Idkgfaxdrm101[address] [place], [place] [address]Dr. Kalie Bess Bilirubin [Mass/Vol] 0.2 mg/dL Normal 0.2-1.0 [facility] Comment on above: Performed By: #### C MP, CRP ####[facility] Rsvjhebrkb21[address] [place], [place] [address]Dr. Kalie Bess Calcium [Mass/Vol] 7.8 mg/dL Critically low 8.5-10.1 [facility] Comment on above: Performed By: #### C MP, CRP ####[facility] Fvrtfxhdxl7[address] [place], [place] [address]Dr. Kalie Bess Chloride [Moles/Vol] 102 mmol/L Normal 98-107 [facility] Comment on above: Performed By: #### C MP, CRP ####[facility] Vjkhsamqzm257[address] [place], [place] [address]Dr. Kalie Bess CO2 [Moles/Vol] 28.4 mmol/L Normal 21.0-32.0 [facility] Comment on above: Performed By: #### C MP, CRP ####[facility] Xqojdhnxnm733[address] [place], [place] [address]Dr. Kalie Bess Creatinine [Mass/Vol] 1.85 mg/dL Critically high 0.55-1.02 [facility] Comment on above: Performed By: #### C MP, CRP ####[facility] Bxinakieju04[address] [place], [place] [address]Dr. Kalie Bess EGFR-AF TANZANIAN 35 mL/min/1.73m2 Critically low >=60 [facility] Comment on above: Performed By: #### C MP, CRP ####[facility] Wtxbpzyewv038[address] [place], [place] [address]Dr. Yilan Bess EGFR-NON AF TANZANIAN 29 mL/min/1.73m2 Critically low >=60 [facility] Comment on above: Performed By: #### C MP, CRP ####[facility] Rpwuycqmnt3450 [place] [address]Dr. Kalie Bess Globulin (S) [Mass/Vol] 4.2 g/dL Normal [facility] Comment on above: Performed By: #### C MP, CRP ####[facility] Houiwtsvgg8662 [place] [address]Dr. Kalie Bess Glucose [Mass/Vol] 250 mg/dL Critically high 74-106 T [facility] Comment on above: Performed By: #### C MP, CRP ####[facility] Mldhgmcmwz312[address] [place], [place] [address]Dr. Kalie Bess Potassium [Moles/Vol] 4.1 mmol/L Normal 3.5-5.1 [facility] Comment on above: Performed By: #### C MP, CRP ####[facility] Jtpxyiruvk7[address] [place], [place] [address]Dr. Kalie Bess Protein [Mass/Vol] 5.7 g/dL Critically low 6.4-8.2 Th [facility] Comment on above: Performed By: #### C MP, CRP ####[facility] Mdebujeejb339[address] [place], [place] [address]Dr. Kalie Bess Sodium [Moles/Vol] 136 mmol/L Normal 136-145 [facility] Comment on above: Performed By: #### C MP, CRP ####[facility] Icwqniiwko1318 [place] [address]Dr. Kalie Bess Urea nitrogen [Mass/Vol] 17.0 mg/dL Normal 7.0-18.0 [facility] Comment on above: Performed By: #### C MP, CRP ####[facility] Hqqgggxenf89[address] [place], [place] [address]Dr. Kalie Bess Urea nitrogen/Creatinine [Mass ratio] 9.2 mg/mg Normal [facility] Comment on above: Performed By: #### C MP, CRP ####[facility] Fgqwcnvfcr4895 [place] [phone]. Kalie Bess SED RATE WESTERGRENon 2022 SED RATE 63 mm/hr Critically high <=30 [facility] Comment on above: Performed By: #### S EDR ####[facility] Idddstnuxs3433 [place] [phone]. Kalie Bess TYPE AND SCREENon 11-29-2022 TYPE AND SCREEN Negative Normal [facility] Comment on above: Performed By: #### T NS ####[facility] Wfsojhfgvk[address] [place], [place] [address]Dr. Kalie Bess CBC W MANUAL DIFFon 11-28-19 23 ANISOCYTOSIS SLIGHT Normal [facility] Comment on above: Performed By: #### C BCMAN ####[facility] Pafwveqxyk016[address] [place], [place] [address]Dr. Kalie Bess ATYPICAL LYMPH # 0.37 103/ul Normal [facility] Comment on above: Performed By: #### C BCMAN ####[facility] Dvlcnrrhcz835[address] [place], [place] [address]Dr. Kalie Bess ATYPICAL LYMPH % 2 % Normal [facility] Comment on above: Performed By: #### C BCMAN ####[facility] Ptqmyuhyvc9[address] [place], [place] [address]Dr. Kalie Bess BAND # 0.6 103/ul Critically high 0.0-0.3 [facility] Comment on above: Performed By: #### C BCMAN ####[facility] Xadujafvet5703 [place] [address]Dr. Kalie Bess BAND % 3 % Normal 0-5 [facility] Comment on above: Performed By: #### C BCMAN ####[facility] Jtqzthsahd49[address] [place], [place] [address]Dr. Kalie Bess BASOM # 0.00 103/ul Normal 0.00-0.10 [facility] Comment on above: Performed By: #### C BCMAN ####[facility] Ishplxdprp[address] [place], [place] [address]Dr. Kalie Bess BASOM % 0.0 % Critically low 0.2-2.0 [facility] Comment on above: Performed By: #### C NANCY ####[facility] Uovjonwcdh0533 [place] [address]Dr. Kalie Bess BLAST # Normal [facility] Comment on above: Performed By: #### C NANCY ####[facility] Zyaiyhjfrg7854 [place] [address]Dr. Kalie Bess BLAST % Normal [facility] Comment on above: Performed By: #### C NANCY ####[facility] Fchttlnxnp8126 [place] [address]Dr. Kalie Bess CORRECTED WBC Normal 4.0-11.[address] [facility] Comment on above: Performed By: #### C NANCY ####[facility] Elziilavbv18[address] [place], [place] [address]Dr. Kalie Bess EOS # 0.56 103/ul Normal 0.00-0.70 [facility] Comment on above: Performed By: #### C NANCY ####[facility] Vgbgdlmyrt528[address] [place], [place] [address]Dr. Kalie Bess EOS% 3.0 % Normal 0.9-7.0 [facility] Comment on above: Performed By: #### C NANCY ####[facility] Ebnyttvhub40[address] [place], [place] [address]Dr. Kalie Bess HCT 27.8 % Critically low 36.0-48.0 [facility] Comment on above: Performed By: #### C NANCY ####[facility] Bybnympkpf[address] [place], [place] [address]Dr. Kalie Bess HGB 8.9 g/dl Critically low 12.0-16.0 [facility] Comment on above: Performed By: #### C NANCY ####[facility] Rrhxqksvva02[address] [place], [place] [address]Dr. Kalie Bess HYPOCHROMASIA 1+ Normal [facility] Comment on above: Performed By: #### C NANCY ####[facility] Gtpdgijeuf6[address] [place], [place] [address]Dr. Kalie eBss LYMPHM # 2.99 103/ul Normal 1.20-3.80 [facility] Comment on above: Performed By: #### C NANCY ####[facility] Hzsiyplqqz5191 [place] [phone]. Kalie Bess LYMPHM% 16.0 % Critically low 20.5-60.0 [facility] Comment on above: Performed By: #### C NANCY ####[facility] Lcdeohgrqb1413 [place] [phone]. Kalie Bess MCH 28.8 pg Normal 26.7-34.0 [facility] Comment on above: Performed By: #### C NANCY ####[facility] Sxjmhwrsop7622 [place] [phone]. Kalie Bess MCHC 32.0 g/dl Normal 29.9-35.2 [facility] Comment on above: Performed By: #### C NANCY ####[facility] Tfohurgiyn4146 [place] [phone]. Kalie Bess MCV 90.0 fL Normal 81.0-99.0 [facility] Comment on above: Performed By: #### Marisela CRUZ ####[facility] Wrxkwwtgvl2459 [place] [phone]. Kalie Bess METAMYELOCYTE # Normal [facility] Comment on above: Performed By: #### C NANCY ####[facility] Akxhaxbnle1130 [place] [phone]. Kalie Bess METAMYELOCYTE % Normal [facility] Comment on above: Performed By: #### C NANCY ####[facility] Cgcnftojry4360 [place] [address]Dr. Kalie Bess MONOM# 0.94 103/ul Critically high 0.30-0.80 [facility] Comment on above: Performed By: #### C NANCY ####[facility] Gfacpuntwg2515 [place] [phone]. Kalie Bess MONOM% 5.0 % Normal 1.7-12.0 [facility] Comment on above: Performed By: #### C NANCY ####[facility] Skvzuemjrf7451 [place], [place] [address]Lc. Kalie Bess MPV 10.4 fL Normal 9.5-13.5 [facility] Comment on above: Performed By: #### C NANCY ####[facility] Mxjwdurqic5839 [place], [place] [address]Tt. Kalie Bess MYELOCYTE # Normal [facility] Comment on above: Performed By: #### C NANCY ####[facility] Tfngboegfd9722 [place] [phone]. Kalie Bess MYELOCYTE % Normal [facility] Comment on above: Performed By: #### C NANCY ####[facility] Hwquaixtbu7448 [place] [phone]. Kalie Bess NRBC Normal [facility] Comment on above: Performed By: #### C NANCY ####[facility] Bnxjmfztll6006 [place] [phone]. Kalie Bess PLT 285 103/ul Normal 150-450 [facility] Comment on above: Performed By: #### C NANCY ####[facility] Rrfmlekein8863 [place] [phone]. Kalie Bess RBC 3.09 106/ul Critically low 4.20-5.40 [facility] Comment on above: Performed By: #### C NANCY ####[facility] Drprncdone3936 [place] [phone]. Kalie Bess RDW 13.6 % Normal 11.0-15.0 [facility] Comment on above: Performed By: #### C NANCY ####[facility] Oftwdbnrzr2703 [place] [phone]. Kalie Bess SEG # 13.28 103/ul Critically high 1.40-6.50 [facility] Comment on above: Performed By: #### C NANCY ####[facility] Bhpholioyu5490 [place] [phone]. Kalie Bess SEG % 71.0 % Normal 43.0-75.0 [facility] Comment on above: Performed By: #### C NANCY ####[facility] Sufjjrcfzw8185 [place] [address]Dr. Shayyroxie Bess WBC 18.7 103/ul Critically high 4.0-11.0 [facility] Comment on above: Performed By: #### C BCMAN ####[facility] Icumzgeaym1192 [place] [phone]. Shayyroxie Shahriar CRPon 11-28-2022 CRP 4.6 mg/dL Critically high <=1.0 [facility] Comment on above: Performed By: #### C MP, CRP ####[facility] Vppungvbpd4548 [place] [phone]. Shayyroxie Bess CULTURE ANAEROBICon 11-28-19 CULTURE ANAEROBIC Culture Observations : NO GROWTH OF ANAEROBES AT 72 HOURS. Normal [facility] Comment on above: Performed By: #### A NACX ####[facility] Yijugyflvd[address] [place], [place] [address]Dr. Kalie Bess CULTURE OTHERon 11-28-2022 CULTURE OTHER Culture Observations : NO GROWTH OF AEROBES AT 48 HOURS. Normal [facility] Comment on above: Performed By: #### O THCX ####[facility] Jouyemizss[address] [place], [place] [address]Dr. Kalie Bess GRAM STAINon 11-28-2022 COMMENTS NO ORGANISMS OBSERVED Normal [facility] Comment on above: Performed By: #### G STAIN ####[facility] Hkbrvhrhmj[address] [place], [place] [address]Dr. Kalie Bess DIPHTHEROIDS Normal [facility] Comment on above: Performed By: #### G STAIN ####[facility] Cmeqaxdvqj257[address] [place], [place] [address]Dr. Kalie Bess EPITHELIALS FEW Normal [facility] Comment on above: Performed By: #### G STAIN ####[facility] Mbbvfeidpm08[address] [place], [place] [address]Dr. Kalie Bess FUNGAL ELEMENTS Normal [facility] Comment on above: Performed By: #### G STAIN ####[facility] Bklctontib[address] [place], [place] [address]Dr. Kalie Bess GRAM NEG BACILLI Normal [facility] Comment on above: Performed By: #### G STAIN ####[facility] Apfbpfgcgo7082 [place] [address]Dr. Kalie Bess GRAM NEG DIPPLOCOCCI Normal [facility] Comment on above: Performed By: #### G STAIN ####[facility] Wwjroelwxu6702 [place] [address]Dr. Kalie Bess GRAM POS BACILLI Normal [facility] Comment on above: Performed By: #### G STAIN ####[facility] Sytxjgdlyp9533 [place] [address]Dr. Kalie Bess GRAM POSITIVE COCCI Normal [facility] Comment on above: Performed By: #### G STAIN ####[facility] Qomadyxrna3688 [place] [address]Dr. Kalie Bess GRAM STAIN SOURCE l. breast abcess Normal [facility] Comment on above: Performed By: #### G STAIN ####[facility] Khtthvqpav6458 [place] [address]Dr. Kalie Bess GS_DIPTH Normal [facility] Comment on above: Performed By: #### G STAIN ####[facility] Ouixetjppa9231 [place] [address]Dr. Kalie Bess WBC RARE Normal [facility] Comment on above: Performed By: #### G STAIN ####[facility] Ijexpcyfvw0841 [place] [address]Dr. Kalie Bess POINT OF CARE GLUCOSEon Glucose [Mass/Vol] 151 mg/dL Critically high 74-106 [facility] Comment on above: Performed By: #### P OCGLUC ####[facility] Kicodykowq8888 [place] [address]Dr. Kalie Bess Glucose [Mass/Vol] 159 mg/dL Critically high 74-106 [facility] Comment on above: Performed By: #### P OCGLUC ####[facility] Bwfigmohko8454 [place] [address]Dr. Kalie Bess PROF 14(COMP METB)on 023 Albumin [Mass/Vol] 1.7 g/dL Critically low 3.4-5.0 Th [facility] Comment on above: Performed By: #### C MP, CRP ####[facility] Flvklmxzhg7238 [place] [address]Dr. Kalie Bess Albumin/Globulin [Mass ratio] 0.4 {ratio} Normal [facility] Comment on above: Performed By: #### C MP, CRP ####[facility] Vpjztkrgvj0103 [place] [address]Dr. Kalie Bess ALP [Catalytic activity/Vol] 133 U/L Critically high 46-116 [facility] Comment on above: Performed By: #### C MP, CRP ####[facility] Carllxrtgm[address] [place], [place] [address]Dr. Kalie Bess ALT [Catalytic activity/Vol] 23 U/L Normal 14-59 [facility] Comment on above: Performed By: #### C MP, CRP ####[facility] Y[address] [place], [place] [address]Dr. Kalie Bess Anion gap [Moles/Vol] 9.3 mmol/L Normal [facility] Comment on above: Performed By: #### C MP, CRP ####[facility] Amzbhvqeoo[address] [place], [place] [address]Dr. Kalie Bess AST [Catalytic activity/Vol] 17 U/L Normal 15-37 [facility] Comment on above: Performed By: #### C MP, CRP ####[facility] Ikealaqqym[address] [place] [address]Dr. Kalie Bess Bilirubin [Mass/Vol] 0.3 mg/dL Normal 0.2-1.0 [facility] Comment on above: Performed By: #### C MP, CRP ####[facility] Mftoaavwsx6219 [place] [address]Dr. Kalie Bess Calcium [Mass/Vol] 8.4 mg/dL Critically low 8.5-10.1 Th [facility] Comment on above: Performed By: #### C MP, CRP ####[facility] Szvggloave[address] [place], [place] [address]Dr. Kalie Bess Chloride [Moles/Vol] 104 mmol/L Normal 98-107 [facility] Comment on above: Performed By: #### C MP, CRP ####[facility] Dkuafjxogu37[address] [place] [address]Dr. Shayyroxie Shahriar CO2 [Moles/Vol] 29.2 mmol/L Normal 21.0-32.0 The [facility] Comment on above: Performed By: #### C MP, CRP ####[facility] Flzauxaiwp35[address] [place] [address]Dr. Kalie Bess Creatinine [Mass/Vol] 1.12 mg/dL Critically high 0.55-1.02 [facility] Comment on above: Performed By: #### C MP, CRP ####[facility] Ladszkhqxn[address] [place], [place] [address]Dr. Kalie Bess EGFR-AF TANZANIAN >60 Normal >=60 [facility] Comment on above: Performed By: #### C MP, CRP ####[facility] Ugbmhwswac2537 [place] [address]Dr. Kalie Bess EGFR-NON AF TANZANIAN 51 mL/min/1.73m2 Critically low >=60 [facility] Comment on above: Performed By: #### C MP, CRP ####[facility] Gotkjlkgrq6[address] [place], [place] [address]Dr. Kalie Bess Globulin (S) [Mass/Vol] 4.5 g/dL Normal [facility] Comment on above: Performed By: #### C MP, CRP ####[facility] Gnusgrpaqr3165 [place] [address]Dr. Kalie Bess Glucose [Mass/Vol] 85 mg/dL Normal 74-106 The [facility] Comment on above: Performed By: #### C MP, CRP ####[facility] Qsskzofwtp40[address] [place] [address]Dr. Kalie Bess Potassium [Moles/Vol] 3.5 mmol/L Normal 3.5-5.1 [facility] Comment on above: Performed By: #### C MP, CRP ####[facility] Shhdyczhxg[address] [place], [place] [address]Dr. Kalie Bess Protein [Mass/Vol] 6.2 g/dL Critically low 6.4-8.2 Th [facility] Comment on above: Performed By: #### C MP, CRP ####[facility] Brkkqlzaeb4125 [place] [address]Dr. Kalie Bess Sodium [Moles/Vol] 139 mmol/L Normal 136-145 [facility] Comment on above: Performed By: #### C MP, CRP ####[facility] Nezhsypzjs2337 [place] [address]Dr. Kalei Bess Urea nitrogen [Mass/Vol] 12.0 mg/dL Normal 7.0-18.0 [facility] Comment on above: Performed By: #### C MP, CRP ####[facility] Cgytmbdfmy[address] [place], [place] [address]Dr. Kalie Bess Urea nitrogen/Creatinine [Mass ratio] 10.7 mg/mg Normal [facility] Comment on above: Performed By: #### C MP, CRP ####[facility] Btxnpmtxvt74[address] [place], [place] [address]Dr. Kalie Bess [facility] SED [facility] >130 Critically high <=30 [facility] Comment on above: Performed By: #### S EDR ####[facility] Ktmhzfrlkb[address] [place], [place] [address]Dr. Kalie Bess CBC AUTO DIFFon 11-27-2022 BASO # 0.1 103/ul Normal 0.0-0.1 [facility] Comment on above: Performed By: #### C BC ####[facility] Nugtavfxky[address] [place], [place] [address]Dr. Kalie Shahriar Basophils/100 WBC (Bld) 0.6 % Normal 0.2-2.0 [facility] Comment on above: Performed By: #### C BC ####[facility] Wzjpoirnxx9574 [place] [address]Dr. Kalie Shahriar EO # 0.5 103/ul Normal 0.0-0.7 [facility] Comment on above: Performed By: #### C BC ####[facility] Iykyufobcl27[address] [place] [id number]. Kalie Bess Eosinophils/100 WBC (Bld) 2.8 % Normal 0.9-7.0 [facility] Comment on above: Performed By: #### C BC ####[facility] Njgiwrkcyw5754 [place] [id number]. Kalie Bess Erythrocyte distribution width (RBC) [Ratio] 14.1 % Normal 11.0-15.0 [facility] Comment on above: Performed By: #### C BC ####[facility] Ywykzzizyp8600 [place] [id number]. Kalie Bess Hematocrit (Bld) [Volume fraction] 27.3 % Critically low 36.0-48.0 [facility] Comment on above: Performed By: #### C BC ####[facility] Ugltufcmnw5983 [place] [address]Dr. Kalie Bess Hemoglobin (Bld) [Mass/Vol] 8.4 g/dL Critically low 12.0-16.0 [facility] Comment on above: Performed By: #### C BC ####[facility] Yshckujtfl[address] [place], [place] [address]Dr. Kalie Bess IG # 1.53 10e3/ul Critically high 0.00-0.03 [facility] Comment on above: Performed By: #### C BC ####[facility] Jyvpkbosnv8270 [place] [address]Dr. Kalie Bess IG % 8.9 % Critically high 0.0-0.5 [facility] Comment on above: Performed By: #### C BC ####[facility] Lnyaanayae9973 [place] [address]Dr. Kalie Bess LYMPH # 3.8 103/ul Normal 1.2-3.8 [facility] Comment on above: Performed By: #### C BC ####[facility] Uglwkruqke6220 [place] [id number]. Kalie Bess Lymphocytes/100 WBC (Bld) 21.8 % Normal 20.5-60.0 [facility] Comment on above: Performed By: #### C BC ####[facility] Vhwtffdrvn0677 [place] [id number]. Shayyroxie Bess MANUAL DIFF REQ NO Normal [facility] Comment on above: Performed By: #### C BC ####[facility] Qjlfxxnjvb8566 [place] [phone]. Kalie Bess MCH (RBC) [Entitic mass] 29.2 pg Normal 26.7-34.0 [facility] Comment on above: Performed By: #### C BC ####[facility] Il[address]fmawrx[address] [place], [place] [address]Dr. Shayyroxie Shahriar MCHC (RBC) [Mass/Vol] 30.8 g/dL Normal 29.9-35.2 [facility] Comment on above: Performed By: #### C BC ####[facility] Tjvfcecnnh[address] [place], [place] [address]Dr. Kalie Bess MCV (RBC) [Entitic vol] 94.8 fL Normal 81.0-99.0 [facility] Comment on above: Performed By: #### C BC ####[facility] Bjdzsoufmj[address] [place], [place] [address]Dr. Shayyroxie Shahriar MONO # 1.3 103/ul Critically high 0.3-0.8 [facility] Comment on above: Performed By: #### C BC ####[facility] Egxseydjsz[address] [place], [place] [address]Dr. Kalie Bess Monocytes/100 WBC (Bld) 7.7 % Normal 1.7-12.0 [facility] Comment on above: Performed By: #### C BC ####[facility] Jczumcajdo4539 [place] [address]Dr. Kalie Bess NEUT # 10.0 103/ul Critically high 1.4-6.5 [facility] Comment on above: Performed By: #### C BC ####[facility] Kdnwxcfpep[address] [place], [place] [address]Dr. Kalie Bess Neutrophils/100 WBC (Bld) 58.2 % Normal 43.0-75.0 [facility] Comment on above: Performed By: #### C BC ####[facility] Jcuktumqqp1690 [place] [phone]. Kalie Bess Platelet mean volume (Bld) [Entitic vol] 11.2 fL Normal 9.5-13.5 [facility] Comment on above: Performed By: #### C BC ####[facility] Vqlsmhclnt6741 [place] [phone]. Kalie Bess PLT 278 103/ul Normal 150-450 [facility] Comment on above: Performed By: #### C BC ####[facility] Barpwbthrr4291 [place] [phone]. Kalie Bess RBC 2.88 106/ul Critically low 4.20-5.40 [facility] Comment on above: Performed By: #### C BC ####[facility] Fyqkrbbovk8829 [place] [phone]. Kalie Bess WBC 17.2 103/ul Critically high 4.0-11.0 [facility] Comment on above: Performed By: #### C BC ####[facility] Kxztugkocq2626 [place] [phone]. Kalie Bess CRPon 11-27-2022 CRP 5.4 mg/dL Critically high <=1.0 [facility] Comment on above: Performed By: #### C RP, CMP ####[facility] Luidrspyqk8089 [place] [phone]. Kalie Bess POINT OF CARE GLUCOSEon -0 Glucose [Mass/Vol] 379 mg/dL Critically high 74-106 [facility] Comment on above: Performed By: #### P OCGLUC ####[facility] Ownoukoxwr9695 [place] [phone]. Kalie Bess Glucose [Mass/Vol] 232 mg/dL Critically high 74-106 [facility] Comment on above: Performed By: #### P OCGLUC ####[facility] Affblwnxjr4010 [place] [phone]. Kalie Bess Glucose [Mass/Vol] 216 mg/dL Critically high -106 [facility] Comment on above: Performed By: #### P OCGLUC ####[facility] Wokpdsaama7257 [place] [address]Dr. Kalie Bess Glucose [Mass/Vol] 249 mg/dL Critically high 74-106 [facility] Comment on above: Performed By: #### P OCGLUC ####[facility] Vpxszvtikv2383 [place] [address]Dr. Kalie Bess PROF 14(COMP METB)on 023 Albumin [Mass/Vol] 1.6 g/dL Critically low 3.4-5.0 Th [facility] Comment on above: Performed By: #### C RP, CMP ####[facility] Dvmehrquox2608 [place] [address]Dr. Kalie Bess Albumin/Globulin [Mass ratio] 0.3 {ratio} Normal [facility] Comment on above: Performed By: #### C RP, CMP ####[facility] Swyvizvlaa6159 [place] [address]Dr. Kalie Bess ALP [Catalytic activity/Vol] 147 U/L Critically high 46-116 [facility] Comment on above: Performed By: #### C RP, CMP ####[facility] Bjvjpfvpfd4447 [place] [address]Dr. Kalie Bess ALT [Catalytic activity/Vol] 25 U/L Normal 14-59 [facility] Comment on above: Performed By: #### C RP, CMP ####[facility] Yqjbbfpptp1752 [place] [address]Dr. Kalie Bess Anion gap [Moles/Vol] 9.9 mmol/L Normal [facility] Comment on above: Performed By: #### C RP, CMP ####[facility] Hhksqoqiae0054 [place] [address]Dr. Kalie Bess AST [Catalytic activity/Vol] 16 U/L Normal 15-37 [facility] Comment on above: Performed By: #### C RP, CMP ####[facility] Kdeynupchu8622 [place] [address]Dr. Kalie Bess Bilirubin [Mass/Vol] 0.1 mg/dL Critically low 0.2-1.0 [facility] Comment on above: Performed By: #### C RP, CMP ####[facility] Rckbajukul[address] [place], [place] [address]Dr. Kalie Bess Calcium [Mass/Vol] 8.2 mg/dL Critically low 8.5-10.1 Th [facility] Comment on above: Performed By: #### C RP, CMP ####[facility] Mtwuqzmxbz134[address] [place], [place] [address]Dr. Kalie Bess Chloride [Moles/Vol] 101 mmol/L Normal 98-107 [facility] Comment on above: Performed By: #### C RP, CMP ####[facility] Fpgwygswaf23[address] [place], [place] [address]Dr. Kalie Bess CO2 [Moles/Vol] 27.1 mmol/L Normal 21.0-32.0 [facility] Comment on above: Performed By: #### C RP, CMP ####[facility] Zafksdxoxy280[address] [place], [place] [address]Dr. Kalie Shahriar Creatinine [Mass/Vol] 1.16 mg/dL Critically high 0.55-1.02 [facility] Comment on above: Performed By: #### C RP, CMP ####[facility] Hbxlssqiuy24[address] [place], [place] [address]Dr. Kalie Shahriar EGFR-AF TANZANIAN 60 mL/min/1.73m2 Normal >=60 [facility] Comment on above: Performed By: #### C RP, CMP ####[facility] Svprhzhvjo[address] [place], [place] [address]Dr. Kalie Shahriar EGFR-NON AF TANZANIAN 49 mL/min/1.73m2 Critically low >=60 [facility] Comment on above: Performed By: #### C RP, CMP ####[facility] Nsyirjffjz[address] [place], [place] [address]Dr. Kalie Bess Globulin (S) [Mass/Vol] 4.7 g/dL Normal [facility] Comment on above: Performed By: #### C RP, CMP ####[facility] Wylbnljbhd[address] [place], [place] [address]Dr. Kalie Bess Glucose [Mass/Vol] 281 mg/dL Critically high 74-106 [facility] Comment on above: Performed By: #### C RP, CMP ####[facility] Jzbacdinrs2543 [place] [address]Dr. Kalie Bess Potassium [Moles/Vol] 4.0 mmol/L Normal 3.5-5.1 [facility] Comment on above: Performed By: #### C RP, CMP ####[facility] Qhjssuutia3867 [place] [address]Dr. Kalie Bess Protein [Mass/Vol] 6.3 g/dL Critically low 6.4-8.2 Th [facility] Comment on above: Performed By: #### C RP, CMP ####[facility] Qjbkgihngz7744 [place] [address]Dr. Kalie Bess Sodium [Moles/Vol] 134 mmol/L Critically low 136-145 [facility] Comment on above: Performed By: #### C RP, CMP ####[facility] Fosmronpgl6469 [place] [address]Dr. Kalie Bess Urea nitrogen [Mass/Vol] 13.0 mg/dL Normal 7.0-18.0 [facility] Comment on above: Performed By: #### C RP, CMP ####[facility] Wwepskrjnn9843 [place] [address]Dr. Kalie Bess Urea nitrogen/Creatinine [Mass ratio] 11.2 mg/mg Normal [facility] Comment on above: Performed By: #### C RP, CMP ####[facility] Taweofpijd6977 [place] [phone]. Kalie Bess SED RATE BOONTONERGRENon 2022 SED RATE >130 Critically high <=30 [facility] Comment on above: Performed By: #### S EDR ####[facility] Jrfrdoybrt9861 [place] [address]Dr. Kalie Bess US BREAST LEFT LIMITEDon US BREAST LEFT LIMITED Normal [facility] CBC W MANUAL DIFFon 02-01-20 23 ATYPICAL LYMPH # Normal [facility] Comment on above: Performed By: #### C BCGABRIELLA ####[facility] Hyuggpwbjs0549 [place] [phone]. Kalie Bess ATYPICAL LYMPH % Normal [facility] Comment on above: Performed By: #### C BCGABRIELLA ####[facility] Ryuriyrkng0107 [place] [phone]. Yilan Bess BAND # 0.2 103/ul Normal 0.0-0.3 [facility] Comment on above: Performed By: #### C BCGABRIELLA ####[facility] Mkiqmoflqn0935 [place] [address]Dr. Yilan Bess BAND % 1 % Normal 0-5 [facility] Comment on above: Performed By: #### C NANCY ####[facility] Tvyeyeodkf7424 [place] [address]Dr. Kalie Bess BASOM # 0.00 103/ul Normal 0.00-0.10 [facility] Comment on above: Performed By: #### C NANCY ####[facility] Hkskmbyeiw1718 [place] [address]Dr. Kalie Bess BASOM % 0.0 % Critically low 0.2-2.0 [facility] Comment on above: Performed By: #### C NANCY ####[facility] Kdagubtsrn0604 [place] [address]Dr. Kalie Bess BLAST # Normal [facility] Comment on above: Performed By: #### C NANCY ####[facility] Johcgofpzu4009 [place] [address]Dr. Yilan Bess BLAST % Normal [facility] Comment on above: Performed By: #### C NANCY ####[facility] Qhjtbbjgbv6298 [place] [address]Dr. Kalie Bess CORRECTED WBC Normal 4.0-11.[address] [facility] Comment on above: Performed By: #### C NANCY ####[facility] Bqifidsavx4124 [place] [address]Dr. Yilan Bess EOS # 0.17 103/ul Normal 0.00-0.70 [facility] Comment on above: Performed By: #### C NANCY ####[facility] Wammsznesj[address] [place], [place] [address]Ef. Kalie Bess EOS% 1.0 % Normal 0.9-7.0 [facility] Comment on above: Performed By: #### C NANCY ####[facility] Wtiegzlzgk7227 [place], [place] [address]Ax. Kalie Bess HCT 29.0 % Critically low 36.0-48.0 [facility] Comment on above: Performed By: #### C NANCY ####[facility] Pihztmobtf1147 [place], [place] [address]Pn. Kalie Bess HGB 8.9 g/dl Critically low 12.0-16.0 [facility] Comment on above: Performed By: #### C NANCY ####[facility] Zahilfznrb8092 [place] [phone]. Kalie Bess LYMPHM # 1.74 103/ul Normal 1.20-3.80 [facility] Comment on above: Performed By: #### C NANCY ####[facility] Abmvvfwymb8422 [place] [phone]. Kalie Bess LYMPHM% 10.0 % Critically low 20.5-60.0 [facility] Comment on above: Performed By: #### Marisela CRUZ ####[facility] Sfvtdyhvni1381 [place] [phone]. Kalie Bess MCH 28.3 pg Normal 26.7-34.0 [facility] Comment on above: Performed By: #### C NANCY ####[facility] Fdjhoticfn5132 [place], [place] [address]Wu. Kalie Bess MCHC 30.7 g/dl Normal 29.9-35.2 [facility] Comment on above: Performed By: #### C NANCY ####[facility] Qkfgutrxqs0350 [place], [place] [address]Gz. Kalie Bess MCV 92.1 fL Normal 81.0-99.0 [facility] Comment on above: Performed By: #### C NANCY ####[facility] Eagpfhpebo6632 [place] [phone]. Kalie Bess METAMYELOCYTE # Normal [facility] Comment on above: Performed By: #### C NANCY ####[facility] Gidrflddoh9970 [place] [phone]. Kalie Bess METAMYELOCYTE % Normal [facility] Comment on above: Performed By: #### C NANCY ####[facility] Daqzmkowei0064 [place] [phone]. Kalie Bess MONOM# 0.87 103/ul Critically high 0.30-0.80 [facility] Comment on above: Performed By: #### C NANCY ####[facility] Usiqrjekps5203 [place] [address]Dr. Kalie Bess MONOM% 5.0 % Normal 1.7-12.0 [facility] Comment on above: Performed By: #### C NANCY ####[facility] Msfirxchuw8422 [place] [address]Dr. Kalie Bess MPV 11.5 fL Normal 9.5-13.5 [facility] Comment on above: Performed By: #### C NANCY ####[facility] Bmekmvvmci1069 [place] [address]Dr. Kalie Bess MYELOCYTE # 0.3 103/ul Normal [facility] Comment on above: Performed By: #### C NANCY ####[facility] Xcxnwslehu5995 [place] [address]Dr. Kalie Bess MYELOCYTE % 2 % Normal [facility] Comment on above: Performed By: #### C NANCY ####[facility] Qokzbmmseo9589 [place] [address]Dr. Kalie Bess NRBC Normal [facility] Comment on above: Performed By: #### C NANCY ####[facility] Lurzbjjzvs1479 [place] [phone]. Kalie Bess PLT 275 103/ul Normal 150-450 [facility] Comment on above: Performed By: #### C NANCY ####[facility] Anvrdxqlxi2393 [place], [place] [address]Pk. Kalie Bess RBC 3.15 106/ul Critically low 4.20-5.40 [facility] Comment on above: Performed By: #### C NANCY ####[facility] Hexvmgdcev5069 [place], [place] [address]Ye. Kalie Bess RDW 14.4 % Normal 11.0-15.0 [facility] Comment on above: Performed By: #### C NANCY ####[facility] Pxwwfnovfc6507 [place], [place] [address]Zl. Kalie Bess SEG # 14.09 103/ul Critically high 1.40-6.50 [facility] Comment on above: Performed By: #### C NANCY ####[facility] Kqukefiyny4103 [place], [place] [address]Ms. Kalie Bess SEG % 81.0 % Critically high 43.0-75.0 [facility] Comment on above: Performed By: #### C NANCY ####[facility] Ayqdqjniqm1441 [place], [place] [address]Br. Kalie Bess WBC 17.4 103/ul Critically high 4.0-11.0 [facility] Comment on above: Performed By: #### C NANCY ####[facility] Ccfwlnqwtp8492 [place], [place] [address]Ne. Kalie Bess CRPon 11-26-2022 CRP 7.9 mg/dL Critically high <=1.0 [facility] Comment on above: Performed By: #### C RP, CMP ####[facility] Tadlqngehm1239 [place], [place] [address]Ak. Kalie Bess POINT OF CARE GLUCOSEon -0 Glucose [Mass/Vol] 348 mg/dL Critically high 74-106 [facility] Comment on above: Performed By: #### P OCGLUC ####[facility] Oithxtdxgb2280 [place] [phone]. Kalie Bess Glucose [Mass/Vol] 355 mg/dL Critically high 74-106 [facility] Comment on above: Performed By: #### P OCGLUC ####[facility] Qetwjpbjnc2865 [place] [address]Dr. Kalie Shahriar Glucose [Mass/Vol] 421 mg/dL Critically high 74-106 T [facility] Comment on above: Performed By: #### P OCGLUC ####[facility] Bwitiaybsz6090 [place] [address]Dr. Kalie Bess PROF 14(COMP METB)on 023 Albumin [Mass/Vol] 1.6 g/dL Critically low 3.4-5.0 Th [facility] Comment on above: Performed By: #### C RP, CMP ####[facility] Ustfyenvnm4516 [place] [address]Dr. Kalie Bess Albumin/Globulin [Mass ratio] 0.3 {ratio} Normal [facility] Comment on above: Performed By: #### C RP, CMP ####[facility] Jvgwuwaqpt[address] [place], [place] [address]Dr. Shayyroxie Bess ALP [Catalytic activity/Vol] 176 U/L Critically high 46-116 [facility] Comment on above: Performed By: #### C RP, CMP ####[facility] Waorcxdexq3105 [place] [address]Dr. Shayyroxie Bess ALT [Catalytic activity/Vol] 32 U/L Normal 14-59 [facility] Comment on above: Performed By: #### C RP, CMP ####[facility] Xoraubccyu3755 [place] [address]Dr. Kalie Bess Anion gap [Moles/Vol] 11.2 mmol/L Normal [facility] Comment on above: Performed By: #### C RP, CMP ####[facility] Zvccmghqqx0856 [place] [address]Dr. Kalie Bess AST [Catalytic activity/Vol] 18 U/L Normal 15-37 [facility] Comment on above: Performed By: #### C RP, CMP ####[facility] Kclrjdcvcd9487 [place] [address]Dr. Kalie Bess Bilirubin [Mass/Vol] 0.2 mg/dL Normal 0.2-1.0 [facility] Comment on above: Performed By: #### C RP, CMP ####[facility] Reosewnvdk0968 [place] [address]Dr. Kalie Bess Calcium [Mass/Vol] 8.5 mg/dL Normal 8.5-10.1 [facility] Comment on above: Performed By: #### C RP, CMP ####[facility] Srzemrrlom6641 [place] [address]Dr. Kalie Bess Chloride [Moles/Vol] 102 mmol/L Normal 98-107 [facility] Comment on above: Performed By: #### C RP, CMP ####[facility] Gekrnpapsg9[address] [place], [place] [address]Dr. Kalie Bess CO2 [Moles/Vol] 27.7 mmol/L Normal 21.0-32.0 [facility] Comment on above: Performed By: #### C RP, CMP ####[facility] Syumubjbir[address] [place], [place] [address]Dr. Kalie Bess Creatinine [Mass/Vol] 1.24 mg/dL Critically high 0.55-1.02 [facility] Comment on above: Performed By: #### C RP, CMP ####[facility] Coiyuqllau8[address] [place], [place] [address]Dr. Kalie Bess EGFR-AF TANZANIAN 55 mL/min/1.73m2 Critically low >=60 [facility] Comment on above: Performed By: #### C RP, CMP ####[facility] Jxnntcfafr6[address] [place], [place] [address]Dr. Kalie Bess EGFR-NON AF TANZANIAN 46 mL/min/1.73m2 Critically low >=60 [facility] Comment on above: Performed By: #### C RP, CMP ####[facility] Zojlctfvry8[address] [place], [place] [address]Dr. Kalie Shahriar Globulin (S) [Mass/Vol] 4.6 g/dL Normal [facility] Comment on above: Performed By: #### C RP, CMP ####[facility] Zauyoahzug[address] [place], [place] [address]Dr. Kalie Bess Glucose [Mass/Vol] 279 mg/dL Critically high 74-106 T [facility] Comment on above: Performed By: #### C RP, CMP ####[facility] Rilvjwvxsy0146 [place] [address]Dr. Kalie Bess Potassium [Moles/Vol] 3.9 mmol/L Normal 3.5-5.1 [facility] Comment on above: Performed By: #### C RP, CMP ####[facility] Joylqyvjmt[address] [place], [place] [address]Dr. Kalie Bess Protein [Mass/Vol] 6.2 g/dL Critically low 6.4-8.2 Th [facility] Comment on above: Performed By: #### C RP, CMP ####[facility] Bywuaornoq7[address] [place], [place] [address]Dr. Kalie Bess Sodium [Moles/Vol] 137 mmol/L Normal 136-145 [facility] Comment on above: Performed By: #### C RP, CMP ####[facility] Dnzrzggpcg[address] [place], [place] [address]Dr. Kalie Bess Urea nitrogen [Mass/Vol] 16.0 mg/dL Normal 7.0-18.0 [facility] Comment on above: Performed By: #### C RP, CMP ####[facility] Jzpbpvcefr7[address] [place], [place] [address]Dr. Kalie Bess Urea nitrogen/Creatinine [Mass ratio] 12.9 mg/mg Normal [facility] Comment on above: Performed By: #### C RP, CMP ####[facility] Qytlipfcfv[address] [place], [place] [address]Dr. Kalie Bess SED RATE WESTERGRENon 2022 SED RATE 126 mm/hr Critically high <=30 [facility] Comment on above: Performed By: #### S EDR ####[facility] Atqzwt[address]dv[address] [place], [place] [address]Dr. Kalie Bess CBC AUTO DIFFon 11-25-2022 BASO # 0.1 103/ul Normal 0.0-0.1 [facility] Comment on above: Performed By: #### C BC ####[facility] Jpxsfighpp55[address] [place] [id number]. Kalie Bess Basophils/100 WBC (Bld) 0.6 % Normal 0.2-2.0 [facility] Comment on above: Performed By: #### C BC ####[facility] Iyrhexojhf7631 [place] [id number]. Kalie Bess EO # 0.6 103/ul Normal 0.0-0.7 [facility] Comment on above: Performed By: #### C BC ####[facility] Tflwhwheri[address] [place], [place] [address]Dr. Kalie Bess Eosinophils/100 WBC (Bld) 4.0 % Normal 0.9-7.0 [facility] Comment on above: Performed By: #### C BC ####[facility] Alusukhdhr[address] [place], [place] [address]Dr. Kalie Bess Erythrocyte distribution width (RBC) [Ratio] 14.4 % Normal 11.0-15.0 [facility] Comment on above: Performed By: #### C BC ####[facility] Yyppafkmyg[address] [place] [address]Dr. Kalie Bess Hematocrit (Bld) [Volume fraction] 25.9 % Critically low 36.0-48.0 [facility] Comment on above: Performed By: #### C BC ####[facility] Wnfleuddya8852 [place] [id number]. Kalie Bess Hemoglobin (Bld) [Mass/Vol] 8.5 g/dL Critically low 12.0-16.0 [facility] Comment on above: Performed By: #### C BC ####[facility] Yxmeuiqfys2597 [place] [id number]. Kalie Bess IG # 1.05 10e3/ul Critically high 0.00-0.03 [facility] Comment on above: Performed By: #### C BC ####[facility] Zqpbirmmvd[address] [place], [place] [address]Dr. Kalie Bess IG % 6.7 % Critically high 0.0-0.5 [facility] Comment on above: Performed By: #### C BC ####[facility] Juwrpmxksl4[address] [place] [address]Dr. Kalie Bess LYMPH # 3.2 103/ul Normal 1.2-3.8 [facility] Comment on above: Performed By: #### C BC ####[facility] Qrkfdqemyl4797 [place] [address]Dr. Kalie Bess Lymphocytes/100 WBC (Bld) 20.3 % Critically low 20.5-60.0 [facility] Comment on above: Performed By: #### C BC ####[facility] Qhttekmxpo[address] [place], [place] [address]Dr. Kalie Bess MANUAL DIFF REQ YES Normal [facility] Comment on above: Result Comment: Prev iously reported as: NO On 11/25/2022 06:37 By KD3 Performed By: #### C BC ####[facility] Medtgattxh[address] [place], [place] [address]Dr. Kalie Bess MCH (RBC) [Entitic mass] 29.0 pg Normal 26.7-34.0 [facility] Comment on above: Performed By: #### C BC ####[facility] Eusazechiv[address] [place], [place] [address]Dr. Kalie Bess MCHC (RBC) [Mass/Vol] 32.8 g/dL Normal 29.9-35.2 [facility] Comment on above: Performed By: #### C BC ####[facility] Fedquudvte5[address] [place], [place] [address]Dr. Kalie Bess MCV (RBC) [Entitic vol] 88.4 fL Normal 81.0-99.0 [facility] Comment on above: Performed By: #### C BC ####[facility] Gtfdpqlhpr[address] [place], [place] [address]Dr. Kalie Bess MONO # 1.3 103/ul Critically high 0.3-0.8 [facility] Comment on above: Performed By: #### C BC ####[facility] Wkycoyydqh0[address] [place], [place] [address]Dr. Kalie Bess Monocytes/100 WBC (Bld) 8.5 % Normal 1.7-12.0 [facility] Comment on above: Performed By: #### C BC ####[facility] Qgzmgvansd6661 [place] [address]Dr. Kalie Bess NEUT # 9.4 103/ul Critically high 1.4-6.5 [facility] Comment on above: Performed By: #### C BC ####[facility] Njjrarghvo0956 [place] [address]Dr. Kalie Bess Neutrophils/100 WBC (Bld) 59.9 % Normal 43.0-75.0 [facility] Comment on above: Performed By: #### C BC ####[facility] Ggtqwnsfyq8040 [place] [address]Dr. Kalie Bess Platelet mean volume (Bld) [Entitic vol] 11.7 fL Normal 9.5-13.5 [facility] Comment on above: Performed By: #### C BC ####[facility] Ifhujwnniu3215 [place] [address]Dr. Kalie Bess PLT 243 103/ul Normal 150-450 [facility] Comment on above: Performed By: #### C BC ####[facility] Trqrmmvcbz4111 [place] [phone]. Kalie Bess RBC 2.93 106/ul Critically low 4.20-5.40 [facility] Comment on above: Performed By: #### C BC ####[facility] Zwyqwonhfb0035 [place] [phone]. Kalie Bess WBC 15.6 103/ul Critically high 4.0-11.0 The [facility] Comment on above: Performed By: #### C BC ####[facility] Lsutpjpvdz8687 [place] [phone]. Kalie Shahriar CRPon 11-25-2022 CRP 11.0 mg/dL Critically high <=1.0 [facility] Comment on above: Performed By: #### C MP, CRP ####[facility] Grifdaksqe1733 [place] [phone]. Kalie Shahriar POINT OF CARE GLUCOSEon 10-28 Glucose [Mass/Vol] 187 mg/dL Critically high 74-106 [facility] Comment on above: Performed By: #### P OCGLUC ####[facility] Mhgwupjdwa6701 [place] [address]Dr. Kalie Bess Glucose [Mass/Vol] 196 mg/dL Critically high 74-106 [facility] Comment on above: Performed By: #### P OCGLUC ####[facility] Wrhpcleuta7405 [place] [address]Dr. Kalie Bess Glucose [Mass/Vol] 234 mg/dL Critically high 74-106 [facility] Comment on above: Performed By: #### P OCGLUC ####[facility] Egclpdmaud22[address] [place], [place] [address]Dr. Kalie Bess Glucose [Mass/Vol] 155 mg/dL Critically high 74-106 [facility] Comment on above: Performed By: #### P OCGLUC ####[facility] Zkiirruomo[address] [place], [place] [address]Dr. Kalie Bess PROF 14(COMP METB)on 023 Albumin [Mass/Vol] 1.6 g/dL Critically low 3.4-5.0 [facility] Comment on above: Performed By: #### C MP, CRP ####[facility] Glinldjani26[address] [place] [address]Dr. Kalie Shahriar Albumin/Globulin [Mass ratio] 0.4 {ratio} Normal [facility] Comment on above: Performed By: #### C MP, CRP ####[facility] Truldjsbou6100 [place] [address]Dr. Kalie Shahriar ALP [Catalytic activity/Vol] 178 U/L Critically high 46-116 [facility] Comment on above: Performed By: #### C MP, CRP ####[facility] Zgphppwdkw3493 [place] [address]Dr. Kalie Shahriar ALT [Catalytic activity/Vol] 40 U/L Normal 14-59 [facility] Comment on above: Performed By: #### C MP, CRP ####[facility] Mcwtoaxeni0419 [place] [address]Dr. Kalie Bess Anion gap [Moles/Vol] 10.6 mmol/L Normal [facility] Comment on above: Performed By: #### C MP, CRP ####[facility] Tbeibxszok[address] [place], [place] [address]Dr. Kalie Bess AST [Catalytic activity/Vol] 19 U/L Normal 15-37 [facility] Comment on above: Performed By: #### C MP, CRP ####[facility] Sgzgsazkki[address] [place], [place] [address]Dr. Kalie Bess Bilirubin [Mass/Vol] 0.2 mg/dL Normal 0.2-1.0 [facility] Comment on above: Performed By: #### C MP, CRP ####[facility] Rxyyvgbehv267[address] [place], [place] [address]Dr. Kalie Bess Calcium [Mass/Vol] 8.7 mg/dL Normal 8.5-10.1 The [facility] Comment on above: Performed By: #### C MP, CRP ####[facility] Weqnpznjaz7[address] [place], [place] [address]Dr. Kalie Bess Chloride [Moles/Vol] 103 mmol/L Normal 98-107 [facility] Comment on above: Performed By: #### C MP, CRP ####[facility] Hrnuhvtvhf46[address] [place], [place] [address]Dr. Kalie Bess CO2 [Moles/Vol] 29.3 mmol/L Normal 21.0-32.0 [facility] Comment on above: Performed By: #### C MP, CRP ####[facility] Dgyugkvkns[address] [place], [place] [address]Dr. Kalie Bess Creatinine [Mass/Vol] 1.35 mg/dL Critically high 0.55-1.02 [facility] Comment on above: Performed By: #### C MP, CRP ####[facility] Oegagtfjwi[address] [place], [place] [address]Dr. Kalie Bess EGFR-AF TANZANIAN 50 mL/min/1.73m2 Critically low >=60 [facility] Comment on above: Performed By: #### C MP, CRP ####[facility] Iokxuijymr8967 [place] [id number]. Kalie Bess EGFR-NON AF TANZANIAN 41 mL/min/1.73m2 Critically low >=60 [facility] Comment on above: Performed By: #### C MP, CRP ####[facility] Phuoxzkotb2639 [place] [address]Dr. Kalie Bess Globulin (S) [Mass/Vol] 4.4 g/dL Normal [facility] Comment on above: Performed By: #### C MP, CRP ####[facility] Wwulucpqzl8456 [place] [address]Dr. Kalie Bess Glucose [Mass/Vol] 170 mg/dL Critically high 74-106 [facility] Comment on above: Performed By: #### C MP, CRP ####[facility] Tsvxzjvagc7037 [place] [address]Dr. Kalie Bess Potassium [Moles/Vol] 3.9 mmol/L Normal 3.5-5.1 [facility] Comment on above: Performed By: #### C MP, CRP ####[facility] Idpmntqoss6409 [place] [address]Dr. Kalie Bess Protein [Mass/Vol] 6.0 g/dL Critically low 6.4-8.2 Th [facility] Comment on above: Performed By: #### C MP, CRP ####[facility] Fwrvnggpwj0346 [place] [address]Dr. Kalie Bess Sodium [Moles/Vol] 139 mmol/L Normal 136-145 [facility] Comment on above: Performed By: #### C MP, CRP ####[facility] Wntuqrbjrz4323 [place] [address]Dr. Kalie Bess Urea nitrogen [Mass/Vol] 18.0 mg/dL Normal 7.0-18.0 [facility] Comment on above: Performed By: #### C MP, CRP ####[facility] Arzilhutsp0863 [place] [address]Dr. Kalie Bess Urea nitrogen/Creatinine [Mass ratio] 13.3 mg/mg Normal [facility] Comment on above: Performed By: #### C MP, CRP ####[facility] Xxgdyjicod5715 [place] [phone]. Kalie Bess SED RATE WESTERGRENon 2022 SED RATE 130 mm/hr Critically high <=30 [facility] Comment on above: Performed By: #### S EDR ####[facility] Wuuuyhvswy3060 [place] [phone]. Kalie Bess CBC W MANUAL DIFFon 11-24-19 23 ATYPICAL LYMPH # 0.16 103/ul Normal [facility] Comment on above: Performed By: #### C BCMAN ####[facility] Zozoodjwpm5684 [place] [address]Dr. Kalie Bses ATYPICAL LYMPH % 1 % Normal [facility] Comment on above: Performed By: #### C BCMAN ####[facility] Mkihmgmrpr4908 [place] [address]Dr. Kalie Bess BAND # 0.3 103/ul Normal 0.0-0.3 [facility] Comment on above: Performed By: #### C BCMAN ####[facility] Tlsibdjzjd0773 [place] [address]Dr. Kalie Bess BAND % 2 % Normal 0-5 [facility] Comment on above: Performed By: #### C BCMAN ####[facility] Magknwfttk6187 [place] [address]Dr. Kalie Bess BASOM # 0.00 103/ul Normal 0.00-0.10 [facility] Comment on above: Performed By: #### C BCMAN ####[facility] Ocnrnnjxzw5131 [place] [phone]. Kalie Bess BASOM % 0.0 % Critically low 0.2-2.0 [facility] Comment on above: Performed By: #### C BCMAN ####[facility] Latfkfjnuz9709 [place] [address]Dr. Kalie Bess BLAST # Normal [facility] Comment on above: Performed By: #### C BCMAN ####[facility] Pymnltvgch3467 [place], [place] [address]Vd. Kalie Bess BLAST % Normal [facility] Comment on above: Performed By: #### C NANCY ####[facility] Yzqbdmpwsa7837 [place], [place] [address]Nn. Kalie Bess CORRECTED WBC Normal 4.0-11.[address] [facility] Comment on above: Performed By: #### C NANCY ####[facility] Hggrsgkywz0698 [place], [place] [address]Ff. Kalie Bess EOS # 1.42 103/ul Critically high 0.00-0.70 [facility] Comment on above: Performed By: #### C NANCY ####[facility] Hztmpkhsqr6641 [place] [phone]. Kalie Bess EOS% 9.0 % Critically high 0.9-7.0 [facility] Comment on above: Performed By: #### C NANCY ####[facility] Wumtpncqda2307 [place] [phone]. Kalie Bess HCT 27.8 % Critically low 36.0-48.0 [facility] Comment on above: Performed By: #### C NANCY ####[facility] Myaasrhpev3400 [place] [phone]. Kalie Bess HGB 9.6 g/dl Critically low 12.0-16.0 [facility] Comment on above: Performed By: #### C NANCY ####[facility] Yokqgugudd2963 [place] [phone]. Kalie Bess LYMPHM # 2.69 103/ul Normal 1.20-3.80 [facility] Comment on above: Performed By: #### C NANCY ####[facility] Pxnuvnadcp9832 [place] [phone]. Kalie Bess LYMPHM% 17.0 % Critically low 20.5-60.0 [facility] Comment on above: Performed By: #### C NANCY ####[facility] Aornsvyinx0010 [place] [phone]. Kalie Bess MCH 29.1 pg Normal 26.7-34.0 [facility] Comment on above: Performed By: #### C NANCY ####[facility] Zcqkocrrzm1365 [place] [phone]. Kalie Bess MCHC 34.5 g/dl Normal 29.9-35.2 [facility] Comment on above: Performed By: #### C NANCY ####[facility] Skkioozlyt2666 [place] [phone]. Kalie Bess MCV 84.2 fL Normal 81.0-99.0 [facility] Comment on above: Performed By: #### C NANCY ####[facility] Gncyzuqbej7626 [place] [phone]. Kalie Bess METAMYELOCYTE # 0.0 103/ul Normal [facility] Comment on above: Performed By: #### C NANCY ####[facility] Wpqkvoxder3589 [place] [phone]. Kalie Bess METAMYELOCYTE % 0 % Normal [facility] Comment on above: Performed By: #### C NANCY ####[facility] Xklbnjuiep7390 [place] [phone]. Kalie Bess MONOM# 0.47 103/ul Normal 0.30-0.80 [facility] Comment on above: Performed By: #### C NANCY ####[facility] Iakccqvexm8813 [place] [phone]. Kalie Bess MONOM% 3.0 % Normal 1.7-12.0 [facility] Comment on above: Performed By: #### C NANCY ####[facility] Bthvhddwai6439 [place] [phone]. Kalie Bess MPV 11.5 fL Normal 9.5-13.5 [facility] Comment on above: Performed By: #### C NANCY ####[facility] Bksnkvtukb6601 [place] [phone]. Kalie Bess MYELOCYTE # Normal [facility] Comment on above: Performed By: #### C NANCY ####[facility] Uhrx[address]ngihw[address] [place], [place] [address]Dr. Kalie Bess MYELOCYTE % Normal [facility] Comment on above: Performed By: #### C MEIRMAN ####[facility] Ketzucaspm9472 [place] [phone]. Kalie Bess NRBC Normal [facility] Comment on above: Performed By: #### C NANCY ####[facility] Xpmedrrkxr5294 [place] [phone]. Kalie Bess PLT 220 103/ul Normal 150-450 [facility] Comment on above: Performed By: #### C NANCY ####[facility] Thnqkdnhjc2278 [place] [phone]. Kalie Bess RBC 3.30 106/ul Critically low 4.20-5.40 [facility] Comment on above: Performed By: #### C NANCY ####[facility] Mvjtbtosor1453 [place] [address]Dr. Kalie Bess RDW 14.2 % Normal 11.0-15.0 [facility] Comment on above: Performed By: #### C NANCY ####[facility] Khuyaqcnnz1342 [place] [phone]. Kalie Bess SEG # 10.74 103/ul Critically high 1.40-6.50 [facility] Comment on above: Performed By: #### C NANCY ####[facility] Kititzvzqz7014 [place] [phone]. Kalie Bess SEG % 68.0 % Normal 43.0-75.0 [facility] Comment on above: Performed By: #### C BCMAN ####[facility] Vhtdphgfnu1445 [place] [phone]. Kalie Bess WBC 15.8 103/ul Critically high 4.0-11.0 [facility] Comment on above: Performed By: #### C BCMAN ####[facility] Dujqehruxl1271 [place] [phone]. Kalie Bess CRPon 11-24-2022 CRP 18.2 mg/dL Critically high <=1.0 [facility] Comment on above: Performed By: #### C MP, CRP ####[facility] Rdvrvhzndl7980 [place] [phone]. Shayyroxie Shahriar POINT OF CARE GLUCOSEon 10-28 Glucose [Mass/Vol] 277 mg/dL Critically high 74-106 [facility] Comment on above: Performed By: #### P OCGLUC ####[facility] Wdcsdjnyjb3075 [place] [phone]. Shayyroxie Shahriar Glucose [Mass/Vol] 268 mg/dL Critically high 74-106 [facility] Comment on above: Performed By: #### P OCGLUC ####[facility] Qvzmlcyubt7928 [place] [phone]. Shayyroxie Bess Glucose [Mass/Vol] 337 mg/dL Critically high -106 [facility] Comment on above: Performed By: #### P OCGLUC ####[facility] Prdloebgbp1482 [place] [address]Dr. Shayyroxie Shahriar Glucose [Mass/Vol] 366 mg/dL Critically high 74-106 [facility] Comment on above: Performed By: #### P OCGLUC ####[facility] Vqfxhnphxv2366 [place] [phone]. Kalie Bess PROF 14(COMP METB)on 023 Albumin [Mass/Vol] 1.8 g/dL Critically low 3.4-5.0 Th [facility] Comment on above: Performed By: #### C MP, CRP ####[facility] Gtrjokxazn5259 [place] [address]Dr. Kalie Bess Albumin/Globulin [Mass ratio] 0.4 {ratio} Normal [facility] Comment on above: Performed By: #### C MP, CRP ####[facility] Psnnhvaxwv8200 [place] [address]Dr. Kalie Bess ALP [Catalytic activity/Vol] 235 U/L Critically high 46-116 [facility] Comment on above: Performed By: #### C MP, CRP ####[facility] Infbizqkar2364 [place] [phone]. Kalie Bess ALT [Catalytic activity/Vol] 60 U/L Critically high 14-59 [facility] Comment on above: Performed By: #### C MP, CRP ####[facility] Exsjhpekfx1945 [place] [address]Dr. Shayyroxie Shahriar Anion gap [Moles/Vol] 10.2 mmol/L Normal [facility] Comment on above: Performed By: #### C MP, CRP ####[facility] Jfjsfnufoz0926 [place] [address]Dr. Kalie Shahriar AST [Catalytic activity/Vol] 32 U/L Normal 15-37 [facility] Comment on above: Performed By: #### C MP, CRP ####[facility] Hwnykqgacx7276 [place] [address]Dr. Kalie Bess Bilirubin [Mass/Vol] 0.3 mg/dL Normal 0.2-1.0 [facility] Comment on above: Performed By: #### C MP, CRP ####[facility] Mahujyoyom347[address] [place], [place] [address]Dr. Kalie Bess Calcium [Mass/Vol] 9.0 mg/dL Normal 8.5-10.1 [facility] Comment on above: Performed By: #### C MP, CRP ####[facility] Kpkecktohx45[address] [place], [place] [address]Dr. Kalie Bess Chloride [Moles/Vol] 100 mmol/L Normal 98-107 [facility] Comment on above: Performed By: #### C MP, CRP ####[facility] Sbfwnktapl900[address] [place], [place] [address]Dr. Kalie eBss CO2 [Moles/Vol] 29.0 mmol/L Normal 21.0-32.0 [facility] Comment on above: Performed By: #### C MP, CRP ####[facility] Lzdybsloti80[address] [place], [place] [address]Dr. Kalie Bess Creatinine [Mass/Vol] 1.21 mg/dL Critically high 0.55-1.02 [facility] Comment on above: Performed By: #### C MP, CRP ####[facility] Vqwyxuucdi467[address] [place], [place] [address]Dr. Kalie Bess EGFR-AF TANZANIAN 57 mL/min/1.73m2 Critically low >=60 [facility] Comment on above: Performed By: #### C MP, CRP ####[facility] Flmyhvocku7737 [place] [address]Dr. Kalie Bess EGFR-NON AF TANZANIAN 47 mL/min/1.73m2 Critically low >=60 [facility] Comment on above: Performed By: #### C MP, CRP ####[facility] Wxwmzsurzz4015 [place] [address]Dr. Kalie Bess Globulin (S) [Mass/Vol] 5.0 g/dL Normal [facility] Comment on above: Performed By: #### C MP, CRP ####[facility] Ykhpphpqze440[address] [place], [place] [address]Dr. Kalie Bess Glucose [Mass/Vol] 339 mg/dL Critically high 74-106 T [facility] Comment on above: Performed By: #### C MP, CRP ####[facility] Ijajywrpzc09[address] [place], [place] [address]Dr. Kalie Bess Potassium [Moles/Vol] 4.2 mmol/L Normal 3.5-5.1 [facility] Comment on above: Performed By: #### C MP, CRP ####[facility] Rnlevtiblm14[address] [place], [place] [address]Dr. Kalie Bess Protein [Mass/Vol] 6.8 g/dL Normal 6.4-8.2 [facility] Comment on above: Performed By: #### C MP, CRP ####[facility] Qmpndnadsd7871 [place] [address]Dr. Kalie Bess Sodium [Moles/Vol] 135 mmol/L Critically low 136-145 Th [facility] Comment on above: Performed By: #### C MP, CRP ####[facility] Ncpbwdhrpn56[address] [place], [place] [address]Dr. Kalie Bess Urea nitrogen [Mass/Vol] 24.0 mg/dL Critically high 7.0-18.0 [facility] Comment on above: Performed By: #### C MP, CRP ####[facility] Nzygoketjm7325 [place] [phone]. Kalie Bess Urea nitrogen/Creatinine [Mass ratio] 19.8 mg/mg Normal [facility] Comment on above: Performed By: #### C MP, CRP ####[facility] Pdphqgrlpu7747 [place] [phone]. Kalie Bess SED RATE WESTERGRENon 2022 SED RATE >130 Critically high <=30 [facility] Comment on above: Performed By: #### S EDR ####[facility] Mbnlwbnqno[address] [place], [place] [id number]. Kalie Bess US BREAST LEFT COMPLETEon US BREAST LEFT COMPLETE Normal [facility] XR CHEST 1 Von 11-24-2022 XR CHEST 1 V Normal [facility] CBC AUTO DIFFon 11-23-2022 BASO # 0.1 103/ul Normal 0.0-0.1 [facility] Comment on above: Performed By: #### C BC ####[facility] Ngrsnwpotx70[address] [place], [place] [address]Dr. Kalie Bess Basophils/100 WBC (Bld) 0.4 % Normal 0.2-2.0 [facility] Comment on above: Performed By: #### C BC ####[facility] Imvzzeylbk025[address] [place], [place] [address]Dr. Kalie Bess EO # 0.7 103/ul Normal 0.0-0.7 [facility] Comment on above: Performed By: #### C BC ####[facility] Sgmzdghngm70[address] [place], [place] [address]Dr. Kalie Bess Eosinophils/100 WBC (Bld) 4.5 % Normal 0.9-7.0 [facility] Comment on above: Performed By: #### C BC ####[facility] Kopitrapea[address] [place], [place] [address]Dr. Kalie Bess Erythrocyte distribution width (RBC) [Ratio] 14.0 % Normal 11.0-15.0 [facility] Comment on above: Performed By: #### C BC ####[facility] Elxmlsuvqz8014 [place] [address]Dr. Kalie Bess Hematocrit (Bld) [Volume fraction] 23.8 % Critically low 36.0-48.0 [facility] Comment on above: Performed By: #### C BC ####[facility] Fnyjfjxzdj9550 [place] [address]Dr. Kalie Bess Hemoglobin (Bld) [Mass/Vol] 8.4 g/dL Critically low 12.0-16.0 [facility] Comment on above: Performed By: #### C BC ####[facility] Gvmehjejtd4327 [place] [address]Dr. Kalie Bess IG # 0.30 10e3/ul Critically high 0.00-0.03 [facility] Comment on above: Performed By: #### C BC ####[facility] Kvqnxksbav3137 [place] [address]Dr. Kalie Shahriar IG % 2.1 % Critically high 0.0-0.5 [facility] Comment on above: Performed By: #### C BC ####[facility] Xfzxcotfbl[address] [place], [place] [address]Dr. Kalie Shahriar LYMPH # 2.3 103/ul Normal 1.2-3.8 [facility] Comment on above: Performed By: #### C BC ####[facility] Iaoslvzduv0196 [place] [address]Dr. Kalie Bess Lymphocytes/100 WBC (Bld) 15.6 % Critically low 20.5-60.0 [facility] Comment on above: Performed By: #### C BC ####[facility] Xvrswertqs4624 [place] [address]Dr. Kalie Bess MANUAL DIFF REQ NO Normal [facility] Comment on above: Performed By: #### C BC ####[facility] Eyyrjqqwbg384[address] [place], [place] [address]Dr. Kalie Bess MCH (RBC) [Entitic mass] 29.3 pg Normal 26.7-34.0 [facility] Comment on above: Performed By: #### C BC ####[facility] Amkpzmijqc98[address] [place], [place] [address]Dr. Kalie Bess MCHC (RBC) [Mass/Vol] 35.3 g/dL Critically high 29.9-35.2 [facility] Comment on above: Performed By: #### C BC ####[facility] Rtmjxoxgbl6566 [place] [phone]. Kalie Bess MCV (RBC) [Entitic vol] 82.9 fL Normal 81.0-99.0 [facility] Comment on above: Performed By: #### C BC ####[facility] Rngjjrpclp5632 [place] [phone]. Kalie Bess MONO # 1.4 103/ul Critically high 0.3-0.8 [facility] Comment on above: Performed By: #### C BC ####[facility] Stuzmwvalh5411 [place] [phone]. Shayyroxie Bess Monocytes/100 WBC (Bld) 9.3 % Normal 1.7-12.0 [facility] Comment on above: Performed By: #### C BC ####[facility] R[address]opfgyg[address] [place] [phone]. Kalie Bess NEUT # 10.0 103/ul Critically high 1.4-6.5 The [facility] Comment on above: Performed By: #### C BC ####[facility] Lqsrxwrqka4[address] [place] [id number]. Kalie Shahriar Neutrophils/100 WBC (Bld) 68.1 % Normal 43.0-75.0 [facility] Comment on above: Performed By: #### C BC ####[facility] Klymzkrjbw[address] [place] [phone]. Kalie Bess Platelet mean volume (Bld) [Entitic vol] 12.1 fL Normal 9.5-13.5 [facility] Comment on above: Performed By: #### C BC ####[facility] Ndyvllfvmz[address] [place] [id number]. aKlie Shahriar PLT 167 103/ul Normal 150-450 [facility] Comment on above: Performed By: #### C BC ####[facility] Dpugvoggri[address] [place] [address]Dr. Kalie Bess RBC 2.87 106/ul Critically low 4.20-5.40 The [facility] Comment on above: Performed By: #### C BC ####[facility] Mmpyfgmzhi[address] [place] [address]Dr. Kalie Bess WBC 14.6 103/ul Critically high 4.0-11.0 [facility] Comment on above: Performed By: #### C BC ####[facility] Erycqfekol[address] [place] [address]Dr. Kalie Bess CRPon 11-23-2022 CRP 47.3 mg/dL Critically high <=1.0 [facility] Comment on above: Performed By: #### C RP, CMP ####[facility] Bpbasrnwdi[address] [place], [place] [address]Dr. Kalie Bess H PYLORI ANTIBODY IGGon 10-27 H. PYLORI IGG ABS 0.14 Index Value Normal 0.00-0.79 [facility] Comment on above: Result Comment: Nega tive <0.80 Equivocal 0.80 - 0.89 Positive >0.89 Performed By: #### H PYLLC ####[facility] Htmxjorifn[address] [place], [place] [address]Dr. Kalie Bess OCC BLD IMMUNO SCREENon 10-27 OCCULT BLOOD Negative Normal NEGATIVE [facility] Comment on above: Performed By: #### O BSCRN ####[facility] Bgisesdxeq[address] [place], [place] [address]Dr. Kalie Bess POINT OF CARE GLUCOSEon 10-27 Glucose [Mass/Vol] 450 mg/dL Critically high 74-106 [facility] Comment on above: Performed By: #### P OCGLUC ####[facility] Uiyilflcau[address] [place], [place] [address]Dr. Kalie Bess Glucose [Mass/Vol] 328 mg/dL Critically high 74-106 [facility] Comment on above: Performed By: #### P OCGLUC ####[facility] Kjypmthtsk[address] [place], [place] [address]Dr. Kalie Bess Glucose [Mass/Vol] 268 mg/dL Critically high 74-106 [facility] Comment on above: Performed By: #### P OCGLUC ####[facility] Ykkjizcciy[address] [place] [address]Dr. Kalie Bess Glucose [Mass/Vol] 206 mg/dL Critically high 74-106 [facility] Comment on above: Performed By: #### P OCGLUC ####[facility] Snqqjzhttm[address] [place] [address]Dr. Kalie Shahriar PROF 14(COMP METB)on 023 Albumin [Mass/Vol] 1.6 g/dL Critically low 3.4-5.0 Th [facility] Comment on above: Performed By: #### C RP, CMP ####[facility] Qvzzfaeylg[address] [place], [place] [address]Dr. Kalie Shahriar Albumin/Globulin [Mass ratio] 0.4 {ratio} [facility] Comment on above: Performed By: #### C RP, CMP ####[facility] Kodoohtqem[address] [place], [place] [address]Dr. Kalie Shahriar ALP [Catalytic activity/Vol] 202 U/L Critically high 46-116 [facility] Comment on above: Performed By: #### C RP, CMP ####[facility] Wcetgmsbxe[address] [place] [address]Dr. Kalie Shahrira ALT [Catalytic activity/Vol] 63 U/L Critically high 14-59 [facility] Comment on above: Performed By: #### C RP, CMP ####[facility] Nouvhixdfd69[address] [place] [address]Dr. Kalie Shahriar Anion gap [Moles/Vol] 12.7 mmol/L Normal [facility] Comment on above: Performed By: #### C RP, CMP ####[facility] Ykwkioaymk9[address] [place] [address]Dr. Kalie Shahriar AST [Catalytic activity/Vol] 69 U/L Critically high 15-37 [facility] Comment on above: Performed By: #### C RP, CMP ####[facility] Gzwtfqtpby28[address] [place] [address]Dr. Kalie Bess Bilirubin [Mass/Vol] 0.2 mg/dL Normal 0.2-1.0 [facility] Comment on above: Performed By: #### C RP, CMP ####[facility] Evwzhvoocp[address] [place], [place] [address]Dr. Kalie Bess Calcium [Mass/Vol] 8.6 mg/dL Normal 8.5-10.1 [facility] Comment on above: Performed By: #### C RP, CMP ####[facility] Cohgvjniar885[address] [place], [place] [address]Dr. Kalie Bess Chloride [Moles/Vol] 99 mmol/L Normal 98-107 [facility] Comment on above: Performed By: #### C RP, CMP ####[facility] Rgbsmschrw2464[address] [place], [place] [address]Dr. Kalie Bess CO2 [Moles/Vol] 27.2 mmol/L Normal 21.0-32.0 The [facility] Comment on above: Performed By: #### C RP, CMP ####[facility] Uclerwdqel24[address] [place], [place] [address]Dr. Kalie Bess Creatinine [Mass/Vol] 1.59 mg/dL Critically high 0.55-1.02 [facility] Comment on above: Performed By: #### C RP, CMP ####[facility] Isjekzgrvr[address] [place], [place] [address]Dr. Kalie Bess EGFR-AF TANZANIAN 41 mL/min/1.73m2 Critically low >=60 [facility] Comment on above: Performed By: #### C RP, CMP ####[facility] Zxnoynnaqk[address] [place], [place] [address]Dr. Kalie Bess EGFR-NON AF TANZANIAN 34 mL/min/1.73m2 Critically low >=60 [facility] Comment on above: Performed By: #### C RP, CMP ####[facility] Sqzhvseeoz411[address] [place], [place] [address]Dr. Kalie Bess Globulin (S) [Mass/Vol] 4.5 g/dL Normal [facility] Comment on above: Performed By: #### C RP, CMP ####[facility] Hhnxzgzjsj75[address] [place] [address]Dr. Kalie Bess Glucose [Mass/Vol] 119 mg/dL Critically high 74-106 T [facility] Comment on above: Performed By: #### C RP, CMP ####[facility] Hsybvlmiur17[address] [place] [address]Dr. Kalie Bess Potassium [Moles/Vol] 3.9 mmol/L Normal 3.5-5.1 [facility] Comment on above: Performed By: #### C RP, CMP ####[facility] Cdfuyrjghq34[address] [place] [address]Dr. Kalie Bess Protein [Mass/Vol] 6.1 g/dL Critically low 6.4-8.2 Th [facility] Comment on above: Performed By: #### C RP, CMP ####[facility] Opoiiqvmoz[address] [place], [place] [address]Dr. Kalie Bess Sodium [Moles/Vol] 135 mmol/L Critically low 136-145 Th [facility] Comment on above: Performed By: #### C RP, CMP ####[facility] Zbpmukshdy[address] [place], [place] [address]Dr. Kalie Bess Urea nitrogen [Mass/Vol] 36.0 mg/dL Critically high 7.0-18.0 [facility] Comment on above: Performed By: #### C RP, CMP ####[facility] Dhflflihac120[address] [place], [place] [address]Dr. aKlie Bess Urea nitrogen/Creatinine [Mass ratio] 22.6 mg/mg Normal [facility] Comment on above: Performed By: #### C RP, CMP ####[facility] Hcqzcpyrxu5[address] [place] [address]Dr. Kalie Bess SED RATE WESTERGRENon 2022 SED RATE >130 Critically high <=30 [facility] Comment on above: Performed By: #### S EDR ####[facility] Wkqhvvzzvj[address] [place], [place] [address]Dr. Kalie Bess CBC AUTO DIFFon 11-22-2022 BASO # 0.1 103/ul Normal 0.0-0.1 [facility] Comment on above: Performed By: #### C BC ####[facility] Mjinudpsgg4[address] [place] [address]Dr. Kalie Bess Basophils/100 WBC (Bld) 0.5 % Normal 0.2-2.0 [facility] Comment on above: Performed By: #### C BC ####[facility] Zwlhourtyj44[address] [place], [place] [address]Dr. Kalie Bess EO # 0.8 103/ul Critically high 0.0-0.7 The [facility] Comment on above: Performed By: #### C BC ####[facility] Qleeaxqiwh96[address] [place], [place] [address]Dr. Kalie Bess Eosinophils/100 WBC (Bld) 5.2 % Normal 0.9-7.0 [facility] Comment on above: Performed By: #### C BC ####[facility] Bsylhueldb[address] [place], [place] [address]Dr. Kalie Bess Erythrocyte distribution width (RBC) [Ratio] 13.8 % Normal 11.0-15.0 [facility] Comment on above: Performed By: #### C BC ####[facility] Rkvzmcawzm99[address] [place], [place] [address]Dr. Kalie Bess Hematocrit (Bld) [Volume fraction] 27.0 % Critically low 36.0-48.0 [facility] Comment on above: Performed By: #### C BC ####[facility] Skbmpzvcpb9[address] [place], [place] [address]Dr. Kalie Bess Hemoglobin (Bld) [Mass/Vol] 9.4 g/dL Critically low 12.0-16.0 [facility] Comment on above: Performed By: #### C BC ####[facility] Ouwlojhmcx218[address] [place], [place] [address]Dr. Shayyroxie Bess IG # 0.23 10e3/ul Critically high 0.00-0.03 The [facility] Comment on above: Performed By: #### C BC ####[facility] Joyvhwqtqd70[address] [place] [address]Dr. Kalie Bess IG % 1.4 % Critically high 0.0-0.5 [facility] Comment on above: Performed By: #### C BC ####[facility] Iydkcqkein87[address] [place] [address]Dr. Kalie Bess LYMPH # 2.2 103/ul Normal 1.2-3.8 [facility] Comment on above: Performed By: #### C BC ####[facility] Kaxyskfvke26[address] [place] [address]Dr. Kalie Bess Lymphocytes/100 WBC (Bld) 13.6 % Critically low 20.5-60.0 [facility] Comment on above: Performed By: #### C BC ####[facility] Tafjxjhuap[address] [place], [place] [address]Dr. Kalie Bess MANUAL DIFF REQ NO Normal [facility] Comment on above: Performed By: #### C BC ####[facility] Talqcizezo55[address] [place] [address]Dr. Shayyroxie Bess MCH (RBC) [Entitic mass] 28.8 pg Normal 26.7-34.0 [facility] Comment on above: Performed By: #### C BC ####[facility] Vipfkbqixg[address] [place], [place] [address]Dr. Shayyroxie Shahriar MCHC (RBC) [Mass/Vol] 34.8 g/dL Normal 29.9-35.2 [facility] Comment on above: Performed By: #### C BC ####[facility] Gqmrqygicu[address] [place] [address]Dr. Kalie Bess MCV (RBC) [Entitic vol] 82.8 fL Normal 81.0-99.0 [facility] Comment on above: Performed By: #### C BC ####[facility] Gnqtzqwqga[address] [place], [place] [address]Dr. Kalie Bess MONO # 1.2 103/ul Critically high 0.3-0.8 [facility] Comment on above: Performed By: #### C BC ####[facility] Dizjwfhwzv8[address] [place], [place] [address]Dr. Kalie Bess Monocytes/100 WBC (Bld) 7.3 % Normal 1.7-12.0 [facility] Comment on above: Performed By: #### C BC ####[facility] Dtnniodrnu4939 [place] [address]Dr. Kalie Bess NEUT # 11.7 103/ul Critically high 1.4-6.5 The [facility] Comment on above: Performed By: #### C BC ####[facility] Mdanejwhdh4602 [place] [address]Dr. Kalie Bess Neutrophils/100 WBC (Bld) 72.0 % Normal 43.0-75.0 [facility] Comment on above: Performed By: #### C BC ####[facility] Krqxhmfpya3996 [place] [address]Dr. Kalie Bess Platelet mean volume (Bld) [Entitic vol] 12.5 fL Normal 9.5-13.5 [facility] Comment on above: Performed By: #### C BC ####[facility] Gozqwpbvps65[address] [place] [address]Dr. Kalie Bess PLT 153 103/ul Normal 150-450 [facility] Comment on above: Performed By: #### C BC ####[facility] Givxrmyzbg6442 [place] [address]Dr. Kalie Bess RBC 3.26 106/ul Critically low 4.20-5.40 [facility] Comment on above: Performed By: #### C BC ####[facility] Wugnfidhmj2334 [place] [address]Dr. Kalie Bess WBC 16.2 103/ul Critically high 4.0-11.0 The [facility] Comment on above: Performed By: #### C BC ####[facility] Alqthtwfnj7739 [place] [address]Dr. Kalie Bess CRPon 11-22-2022 CRP [Mass/Vol] mg/L Normal <=1.0 [facility] Comment on above: Performed By: #### C RP, CMP ####[facility] Lpbuoibaps36[address] [place] [address]Dr. Kalie Bess POINT OF CARE GLUCOSEon 10-27 Glucose [Mass/Vol] 179 mg/dL Critically high 74-106 [facility] Comment on above: Performed By: #### P OCGLUC ####[facility] Homqmrpppi6256 [place] [id number]. Kalie Bess Glucose [Mass/Vol] 110 mg/dL Critically high 74-106 [facility] Comment on above: Performed By: #### P OCGLUC ####[facility] Lywiuordjn13[address] [place] [address]Dr. Kalie Bess Glucose [Mass/Vol] 258 mg/dL Critically high -106 [facility] Comment on above: Performed By: #### P OCGLUC ####[facility] Nviwxxjyth8894 [place] [address]Dr. Kalie Bess Glucose [Mass/Vol] 216 mg/dL Critically high 74-106 [facility] Comment on above: Performed By: #### P OCGLUC ####[facility] Djenhuwztf0222 [place] [address]Dr. Shayyroxie Bess PROF 14(COMP METB)on 023 Albumin [Mass/Vol] 1.8 g/dL Critically low 3.4-5.0 Th [facility] Comment on above: Performed By: #### C RP, CMP ####[facility] Bvkfjicurw[address] [place] [address]Dr. Kalie Shahriar Albumin/Globulin [Mass ratio] 0.4 {ratio} Normal [facility] Comment on above: Performed By: #### C RP, CMP ####[facility] Qteisluiic5592 [place] [address]Dr. Kalie Shahriar ALP [Catalytic activity/Vol] 117 U/L Critically high 46-116 [facility] Comment on above: Performed By: #### C RP, CMP ####[facility] Dmnemexcnm5541 [place] [address]Dr. Kalie Shahriar ALT [Catalytic activity/Vol] 30 U/L Normal 14-59 [facility] Comment on above: Performed By: #### C RP, CMP ####[facility] Ooklhumoxc94[address] [place] [address]Dr. Kalie Bess Anion gap [Moles/Vol] 12.9 mmol/L Normal [facility] Comment on above: Performed By: #### C RP, CMP ####[facility] Czsqtbyqch9416 [place] [address]Dr. Kalie Bess AST [Catalytic activity/Vol] 20 U/L Normal 15-37 [facility] Comment on above: Performed By: #### C RP, CMP ####[facility] Xserqpxitw59[address] [place], [place] [address]Dr. Kalie Bess Bilirubin [Mass/Vol] 0.3 mg/dL Normal 0.2-1.0 [facility] Comment on above: Performed By: #### C RP, CMP ####[facility] Zwmphdieey25[address] [place], [place] [address]Dr. Kalie Bess Calcium [Mass/Vol] 8.5 mg/dL Normal 8.5-10.1 [facility] Comment on above: Performed By: #### C RP, CMP ####[facility] Qylozihnxh5264[address] [place], [place] [address]Dr. Kalie Bess Chloride [Moles/Vol] 97 mmol/L Critically low 98-107 [facility] Comment on above: Performed By: #### C RP, CMP ####[facility] Tdmhavboox79[address] [place], [place] [address]Dr. Kalie Bess CO2 [Moles/Vol] 26.1 mmol/L Normal 21.0-32.0 The [facility] Comment on above: Performed By: #### C RP, CMP ####[facility] Xquztzxnnz515[address] [place], [place] [address]Dr. Kalie Bess Creatinine [Mass/Vol] 1.72 mg/dL Critically high 0.55-1.02 [facility] Comment on above: Performed By: #### C RP, CMP ####[facility] Kcoekzvbjy44[address] [place], [place] [address]Dr. Kalie Bess EGFR-AF TANZANIAN 38 mL/min/1.73m2 Critically low >=60 [facility] Comment on above: Performed By: #### C RP, CMP ####[facility] Ivlhgcpomj6941 [place] [address]Dr. Kalie Bess EGFR-NON AF TANZANIAN 31 mL/min/1.73m2 Critically low >=60 [facility] Comment on above: Performed By: #### C RP, CMP ####[facility] Xdfbgulpqm8003 [place] [address]Dr. Kalie Bess Globulin (S) [Mass/Vol] 4.5 g/dL Normal [facility] Comment on above: Performed By: #### C RP, CMP ####[facility] Ptisvakphz3381 [place] [address]Dr. Kalie Bess Glucose [Mass/Vol] 230 mg/dL Critically high 74-106 T [facility] Comment on above: Performed By: #### C RP, CMP ####[facility] Xqpwqatiky04[address] [place], [place] [address]Dr. Kalie Bess Potassium [Moles/Vol] 4.0 mmol/L Normal 3.5-5.1 [facility] Comment on above: Performed By: #### C RP, CMP ####[facility] Irngezpgoi04[address] [place], [place] [address]Dr. Kalie Bess Protein [Mass/Vol] 6.3 g/dL Critically low 6.4-8.2 Th [facility] Comment on above: Performed By: #### C RP, CMP ####[facility] Rlkrqmmwpp69[address] [place], [place] [address]Dr. Kalie Bess Sodium [Moles/Vol] 132 mmol/L Critically low 136-145 Th [facility] Comment on above: Performed By: #### C RP, CMP ####[facility] Gpgsqjdqhx[address] [place], [place] [address]Dr. Kalie Bess Urea nitrogen [Mass/Vol] 45.0 mg/dL Critically high 7.0-18.0 [facility] Comment on above: Performed By: #### C RP, CMP ####[facility] Xuqymeztar06[address] [place], [place] [address]Dr. Kalie Bess Urea nitrogen/Creatinine [Mass ratio] 26.2 mg/mg Normal [facility] Comment on above: Performed By: #### C RP, CMP ####[facility] Aoibdwaaik1498 [place] [id number]. Kalie Bess SED RATE WESTERGRENon 2022 SED RATE 95 mm/hr Critically high <=30 [facility] Comment on above: Performed By: #### S EDR ####[facility] Epyypbdssg5834 [place] [phone]. Kalie Bess US BREAST LEFT LIMITEDon US BREAST LEFT LIMITED Normal [facility] ACETONE SERUMon 11-21-2022 ACETONE Negative Normal NEGATIVE [facility] Comment on above: Performed By: #### A CETON ####[facility] Kojjkbeupg[address] [place], [place] [address]Dr. Kalie Bess CBC W MANUAL DIFFon 11-21-19 23 ANISOCYTOSIS SLIGHT Normal [facility] Comment on above: Performed By: #### C BCMAN ####[facility] Lfupxricsn4349 [place] [phone]. Kalie Bess ATYPICAL LYMPH # Normal [facility] Comment on above: Performed By: #### C BCMAN ####[facility] Seuhfiukxk4055 [place] [phone]. Kalie Bess ATYPICAL LYMPH % Normal [facility] Comment on above: Performed By: #### C BCMAN ####[facility] Vezvrjwoum26[address] [place] [address]Dr. Kalie Bess BAND # 1.1 103/ul Critically high 0.0-0.3 [facility] Comment on above: Performed By: #### C BCMAN ####[facility] Jsuxaagktb475[address] [place] [address]Dr. Kalie Shahriar BAND % 5 % Normal 0-5 [facility] Comment on above: Performed By: #### C BCMAN ####[facility] Pwvgeisqwo2482 [place] [phone]. Shayyroxie Shahriar BASOM # 0.00 103/ul Normal 0.00-0.10 [facility] Comment on above: Performed By: #### C BCGABRIELLA ####[facility] Jbenufzsvf2665 [place] [address]Dr. Kalie Bess BASOM % 0.0 % Critically low 0.2-2.0 [facility] Comment on above: Performed By: #### C BCGABRIELLA ####[facility] Dshcqpwpqm3137 [place] [address]Dr. Kalie Bess BLAST # Normal [facility] Comment on above: Performed By: #### C BCGABRIELLA ####[facility] Ktmyhagoqr0410 [place] [address]Dr. Kalie Bess BLAST % Normal [facility] Comment on above: Performed By: #### C NANCY ####[facility] Lhebcinqxl524[address] [place], [place] [address]Dr. Kalie Bess CORRECTED WBC Normal 4.0-11.[address] [facility] Comment on above: Performed By: #### C NANCY ####[facility] Fzflfjaopp76[address] [place], [place] [address]Dr. Kalie Bess EOS # 0.87 103/ul Critically high 0.00-0.70 [facility] Comment on above: Performed By: #### C NANCY ####[facility] Yyrfuwaqcy[address] [place], [place] [address]Dr. Kalie Bess EOS% 4.0 % Normal 0.9-7.0 [facility] Comment on above: Performed By: #### C BCGABRIELLA ####[facility] Rqqpkkwjtw9[address] [place], [place] [address]Dr. Kalie Bess HCT 22.7 % Critically low 36.0-48.0 [facility] Comment on above: Performed By: #### C BCGABRIELLA ####[facility] Obhukfyoiv415[address] [place], [place] [address]Dr. Kalie Bess HGB 8.2 g/dl Critically low 12.0-16.0 [facility] Comment on above: Performed By: #### C NANCY ####[facility] Xforrjothy425[address] [place], [place] [address]Dr. Kalie Bess LYMPHM # 1.74 103/ul Normal 1.20-3.80 [facility] Comment on above: Performed By: #### C NANCY ####[facility] Gmkscimazh4[address] [place] [address]Dr. Kalie Bess LYMPHM% 8.0 % Critically low 20.5-60.0 [facility] Comment on above: Performed By: #### C NANCY ####[facility] Hqtznoslnn0988 [place] [address]Dr. Kalie Bess MCH 29.2 pg Normal 26.7-34.0 [facility] Comment on above: Performed By: #### C NANCY ####[facility] Qklhflchtq4850 [place] [address]Dr. Kalie Bess MCHC 36.1 g/dl Critically high 29.9-35.2 [facility] Comment on above: Performed By: #### C NANCY ####[facility] Xjawrukgge[address] [place], [place] [address]Dr. Kalie Bess MCV 80.8 fL Critically low 81.0-99.0 [facility] Comment on above: Performed By: #### C NANCY ####[facility] Beaxtfrbuz[address] [place], [place] [address]Dr. Kalie Bess METAMYELOCYTE # Normal [facility] Comment on above: Performed By: #### C NANCY ####[facility] Upyltomikw54[address] [place] [address]Dr. Kalie Bess METAMYELOCYTE % Normal [facility] Comment on above: Performed By: #### C NANCY ####[facility] Ifwufqmmbc0134 [place] [address]Dr. Kalie Bess MICROCYTOSIS SLIGHT Normal [facility] Comment on above: Performed By: #### C NANCY ####[facility] Urhjuxnlar44[address] [place] [address]Dr. Kalie Bess MONOM# 1.08 103/ul Critically high 0.30-0.80 [facility] Comment on above: Performed By: #### C NANCY ####[facility] Kcrwjuvfsp8890 [place], [place] [address]Hz. Kalie Bess MONOM% 5.0 % Normal 1.7-12.0 [facility] Comment on above: Performed By: #### C NANCY ####[facility] Yapdzgoehr1725 [place], [place] [address]Uk. Kalie Bess MPV 12.3 fL Normal 9.5-13.5 [facility] Comment on above: Performed By: #### C NANCY ####[facility] Yazflkwojb8232 [place], [place] [address]Jj. Kalie Bess MYELOCYTE # Normal [facility] Comment on above: Performed By: #### C NANCY ####[facility] Iadkrlxumu0946 [place] [phone]. Kalie Bess MYELOCYTE % Normal [facility] Comment on above: Performed By: #### Marisela CRUZ ####[facility] Wgeocqbkrd2203 [place] [phone]. Kalie Bess NRBC Normal [facility] Comment on above: Performed By: #### Marisela CRUZ ####[facility] Znxtqwsnxo5563 [place] [phone]. Kalie Bess PLT 184 103/ul Normal 150-450 [facility] Comment on above: Performed By: #### Marisela CRUZ ####[facility] Kzgavlpkap0529 [place], [place] [address]Pm. Kalie Bess RBC 2.81 106/ul Critically low 4.20-5.40 [facility] Comment on above: Performed By: #### C NANCY ####[facility] Zyoqrribup0285 [place], [place] [address]Hy. Kalie Bess RDW 13.6 % Normal 11.0-15.0 [facility] Comment on above: Performed By: #### C NANCY ####[facility] Rvyjwciveo2807 [place] [id number]. Kalie Bess SEG # 16.93 103/ul Critically high 1.40-6.50 [facility] Comment on above: Performed By: #### C NANCY ####[facility] Lfhpqprfdi7112 [place] [phone]. Kalie Bess SEG % 78.0 % Critically high 43.0-75.0 [facility] Comment on above: Performed By: #### C BCMAN ####[facility] Qovijsejmu3026 [place], [place] [address]Cd. Kalie Bess WBC 21.7 103/ul Critically high 4.0-11.0 [facility] Comment on above: Performed By: #### C BCMAN ####[facility] Lyaqeigpvn3594 [place] [phone]. Kalie Bess CRPon 11-21-2022 CRP 65.5 mg/dL Critically high <=1.0 [facility] Comment on above: Performed By: #### C RP ####[facility] Hmnlrqtfbd8079 [place] [phone]. Kalie Bess CULTURE BLOODon 11-21-2022 Microscopic examination of blood, culture Culture Observations: NO GROWTH AT 5 DAYS. Normal [facility] Comment on above: Performed By: #### B LDCX2 ####[facility] Mcdsbvngua4424 [place] [phone]. Kalie Bess Microscopic examination of blood, culture Culture Observations: NO GROWTH AT 5 DAYS. Normal [facility] Comment on above: Performed By: #### B LDCX1 ####[facility] Zujspgtulo0781 [place] [phone]. Kalie Bess Covid-19 PCR (CVDTB)on 10-27 SARS-CoV-2 (COVID-19) RNA CIPRIANO+probe Ql (Unsp spec) Not detected Normal NOT DETECTED [facility] Comment on above: Result Comment: When diagnostic [...] for this test is supported by the Foreign Language Stenographer of Health and Human Service's declaration that [...] be used). Performed By: #### C VDTBH ####[facility] [address] [place] [address]Dr. Kalie Bess LACTATE/LACTIC ACIDon 2022 Lactate [Moles/Vol] 1.1 mmol/L Normal 0.4-1.9 [facility] Comment on above: Performed By: #### L ACT ####[facility] Nskctytoq[address] [place], [place] [address]Dr. Kalie Bess Lactate [Moles/Vol] 2.2 mmol/L Critically high 0.4-1.9 [facility] Comment on above: Performed By: #### L ACT ####[facility] Sjbpfxuxgr22[address] [place], [place] [address]Dr. Kalie Bess POINT OF CARE GLUCOSEon 10-27 Glucose [Mass/Vol] 343 mg/dL Critically high 74-106 [facility] Comment on above: Performed By: #### P OCGLUC ####[facility] Ufzypcksta[address] [place], [place] [address]DrCassie Bess PROF 14(COMP METB)on 023 Albumin [Mass/Vol] 2.0 g/dL Critically low 3.4-5.0 [facility] Comment on above: Performed By: #### C MP ####[facility] Ksnvugdshn[address] [place], [place] [address]DrCassie Bess Albumin/Globulin [Mass ratio] 0.4 {ratio} Normal [facility] Comment on above: Performed By: #### C MP ####[facility] Jwfhbbauqc[address] [place] [address]DrCassie Bess ALP [Catalytic activity/Vol] 126 U/L Critically high 46-116 [facility] Comment on above: Performed By: #### C MP ####[facility] Weocrjejkz[address] [place] [id number]. Kalie Bess ALT [Catalytic activity/Vol] 35 U/L Normal 14-59 [facility] Comment on above: Performed By: #### C MP ####[facility] Ylgkfqdbuv4[address] [place] [id number]. Kalie Bess Anion gap [Moles/Vol] 14.6 mmol/L Normal [facility] Comment on above: Performed By: #### C MP ####[facility] Xriaxytosw50[address] [place] [id number]. Kalie Bess AST [Catalytic activity/Vol] 27 U/L Normal 15-37 [facility] Comment on above: Performed By: #### C MP ####[facility] Mhdxnkpvkn4[address] [place] [id number]. Kalie Shahriar Bilirubin [Mass/Vol] 0.3 mg/dL Normal 0.2-1.0 [facility] Comment on above: Performed By: #### C MP ####[facility] Kykqvpjzww25[address] [place] [id number]. Kalie Shahriar Calcium [Mass/Vol] 8.9 mg/dL Normal 8.5-10.1 [facility] Comment on above: Performed By: #### C MP ####[facility] Vzhztbkaox[address] [place] [phone]. Kalie Shahriar Chloride [Moles/Vol] 92 mmol/L Critically low 98-107 [facility] Comment on above: Performed By: #### C MP ####[facility] Ofvhkrikro[address] [place] [phone]. Kalie Shahriar CO2 [Moles/Vol] 27.2 mmol/L Normal 21.0-32.0 [facility] Comment on above: Performed By: #### C MP ####[facility] Xcwlhbiepr029[address] [place] [phone]. Kalie Shahriar Creatinine [Mass/Vol] 2.03 mg/dL Critically high 0.55-1.02 [facility] Comment on above: Performed By: #### C MP ####[facility] Qdywlkmxga024[address] [place] [phone]. Kalie Bess EGFR-AF TANZANIAN 31 mL/min/1.73m2 Critically low >=60 [facility] Comment on above: Performed By: #### C MP ####[facility] Gyrdwxvses88[address] [place] [phone]. Kalie Bess EGFR-NON AF TANZANIAN 26 mL/min/1.73m2 Critically low >=60 [facility] Comment on above: Performed By: #### C MP ####[facility] Gdldlmtbdi[address] [place] [phone]. Kalie Shahriar Globulin (S) [Mass/Vol] 4.9 g/dL Normal [facility] Comment on above: Performed By: #### C MP ####[facility] Vevrquwcpp[address] [place] [phone]. Kalie Bess Glucose [Mass/Vol] 329 mg/dL Critically high 74-106 [facility] Comment on above: Performed By: #### C MP ####[facility] Vueyilyvfz67[address] [place] [phone]. Kalie Shahriar Potassium [Moles/Vol] 3.8 mmol/L Normal 3.5-5.1 [facility] Comment on above: Performed By: #### C MP ####[facility] Atirgwxazd[address] [place] [phone]. Kalie Shahriar Protein [Mass/Vol] 6.9 g/dL Normal 6.4-8.2 [facility] Comment on above: Performed By: #### C MP ####[facility] Oclyxdvaqm[address] [place] [phone]. Kalie Bess Sodium [Moles/Vol] 130 mmol/L Critically low 136-145 [facility] Comment on above: Performed By: #### C MP ####[facility] Xxydfyhpkj4[address] [place] [phone]. Kalie Shahriar Urea nitrogen [Mass/Vol] 52.0 mg/dL Critically high 7.0-18.0 [facility] Comment on above: Performed By: #### C MP ####[facility] Bapeysobjf[address] [place] [address]Dr. Kalie Bess Urea nitrogen/Creatinine [Mass ratio] 25.6 mg/mg Normal [facility] Comment on above: Performed By: #### C MP ####[facility] Berkhocbgj035[address] [place] [phone]. Kalie Bess PROTIMEon 11-21-2022 INR Coag (PPP) [Relative time] 1.03 {INR} Normal [facility] Comment on above: Performed By: #### P T, PTT ####[facility] Limgwebrit[address] [place], [place] [address]Dr. Kalie Bess INR GUIDELINES SEE BELOW Normal [facility] Comment on above: Result Comment: GABRIELLA RED INR: 2.0 - 3.0 CONDITIONS NOT LISTED BELOW 2.5 - 3.5 FOR PROSTHETIC HEART VALVE REPLACEMENT 2.5 - 3.5 RECURRENT THROMBOSIS Performed By: #### P T, PTT ####[facility] Iesykgqgls[address] [place], [place] [address]Dr. Kalie Bess PT Coag (PPP) [Time] 10.9 s Normal 9.0-11.6 [facility] Comment on above: Performed By: #### P T, PTT ####[facility] Rkqtlirroz9109[address] [place], [place] [address]Dr. Kalie Bess PTTon 11-21-2022 aPTT Coag (Bld) [Time] 27.3 s Normal 22.3-36.2 [facility] Comment on above: Performed By: #### P T, PTT ####[facility] Puohjdeaeh2869[address] [place], [place] [address]Dr. Kalie Bess SED RATE WESTERGRENon 2022 SED RATE 63 mm/hr Critically high <=30 [facility] Comment on above: Performed By: #### S EDR ####[facility] Qbvqlmzzuq4301[address] [place], [place] [address]Dr. Kalie Bess ACID FAST SMEAR AND CXon Acid Fast Culture Negative Normal [facility] Comment on above: Result Comment: No a junior fast bacilli isolated after 6 weeks. Performed By: #### A FB ####[facility] Rxduhebufr8525[address] [place], [place] [address]Dr. Kalie Bess Acid Fast Smear Negative Normal [facility] Comment on above: Performed By: #### A FB ####[facility] Qarqxarcvw[address] [place], [place] [id number]. Kalie Bess AF[employer] Specimen Processing Direct Inoculation Normal [facility] Comment on above: Performed By: #### A FB ####[facility] Tiaacsboix258[address] [place], [place] [address]Dr. Kalie Bess FUNGAL CULTUREon 09-01-2022 Fungus (Mycology) Culture Final report Normal [facility] Comment on above: Performed By: #### C XFUN ####[facility] Tweclpmbmx885[address] [place], [place] [address]Dr. Kalie Bess Fungus Stain Final report Normal [facility] Comment on above: Performed By: #### C XFUN ####[facility] Eohixtxkka[address] [place], [place] [address]Dr. Kalie Bess Result 1 Comment Normal [facility] Comment on above: Result Comment: GILMA/ Calcofluor preparation: no fungus observed. Performed By: #### C XFUN ####[facility] Zzbqdhskkk030[address] [place], [place] [address]Dr. Kalie Bess Result Comment: No y east or mold isolated after 4 weeks. BNPon 08-05-2022 Natriuretic peptide B (Bld) [Mass/Vol] 3827.0 pg/mL Critically high <=900.0 [facility] Comment on above: Performed By: #### B MP, BNP ####[facility] Watikmjqxy46[address] [place], [place] [address]Dr. Kalie Bess CBC AUTO DIFFon 08-05-2022 BASO # 0.0 103/ul Normal 0.0-0.1 [facility] Comment on above: Performed By: #### C BC ####[facility] Yziebekarq5640[address] [place], [place] [address]Dr. Kalie Bess Basophils/100 WBC (Bld) 0.1 % Critically low 0.2-2.0 [facility] Comment on above: Performed By: #### C BC ####[facility] Tqegchglzh[address] [place] [address]Dr. Kalie Bess EO # 0.0 103/ul Normal 0.0-0.7 [facility] Comment on above: Performed By: #### C BC ####[facility] Euoihjyhdq78[address] [place] [address]Dr. Kalie Bess Eosinophils/100 WBC (Bld) 0.0 % Critically low 0.9-7.0 [facility] Comment on above: Performed By: #### C BC ####[facility] Uzjauqpdhw12[address] [place], [place] [address]Dr. Kalie Bess Erythrocyte distribution width (RBC) [Ratio] 13.9 % Normal 11.0-15.0 [facility] Comment on above: Performed By: #### C BC ####[facility] Zrvwtolrhe9[address] [place], [place] [address]Dr. Kalie Bess Hematocrit (Bld) [Volume fraction] 32.9 % Critically low 36.0-48.0 [facility] Comment on above: Performed By: #### C BC ####[facility] Enrobeciiz3899[address] [place], [place] [address]Dr. Kalie Bess Hemoglobin (Bld) [Mass/Vol] 10.5 g/dL Critically low 12.0-16.0 [facility] Comment on above: Performed By: #### C BC ####[facility] Trllyyfoiv359[address] [place], [place] [address]Dr. Kalie Bess IG # 0.11 10e3/ul Critically high 0.00-0.03 [facility] Comment on above: Performed By: #### C BC ####[facility] Whzpdmlxrh9799[address] [place], [place] [address]Dr. Kalie Bess IG % 0.7 % Critically high 0.0-0.5 [facility] Comment on above: Performed By: #### C BC ####[facility] Cdjermzait0880[address] [place], [place] [address]Dr. Kalie Bess LYMPH # 1.6 103/ul Normal 1.2-3.8 [facility] Comment on above: Performed By: #### C BC ####[facility] Cqbwsjswzu70[address] [place] [address]Dr. Shayyroxie Bess Lymphocytes/100 WBC (Bld) 9.5 % Critically low 20.5-60.0 [facility] Comment on above: Performed By: #### C BC ####[facility] Plxpvxsrcw25[address] [place] [address]DrCassie Bess MANUAL DIFF REQ NO Normal [facility] Comment on above: Performed By: #### C BC ####[facility] Dicpvheqdd23[address] [place] [address]Dr. Shayyroxie Shahriar MCH (RBC) [Entitic mass] 28.7 pg Normal 26.7-34.0 [facility] Comment on above: Performed By: #### C BC ####[facility] Wtqwehvegb4[address] [place], [place] [address]Dr. Kalie Shahriar MCHC (RBC) [Mass/Vol] 31.9 g/dL Normal 29.9-35.2 [facility] Comment on above: Performed By: #### C BC ####[facility] Akjfhdahkv84[address] [place], [place] [address]DrCassie Bess MCV (RBC) [Entitic vol] 89.9 fL Normal 81.0-99.0 [facility] Comment on above: Performed By: #### C BC ####[facility] Yyfaafmzia[address] [place] [address]Dr. Kalie Bess MONO # 0.5 103/ul Normal 0.3-0.8 [facility] Comment on above: Performed By: #### C BC ####[facility] Nkytrswnss[address] [place], [place] [address]DrCassie Bess Monocytes/100 WBC (Bld) 2.9 % Normal 1.7-12.0 [facility] Comment on above: Performed By: #### C BC ####[facility] Stbgouclhd[address] [place], [place] [address]Dr. Kalie Bess NEUT # 14.5 103/ul Critically high 1.4-6.5 [facility] Comment on above: Performed By: #### C BC ####[facility] Riqreimgnk24[address] [place] [address]Dr. Kalie Bess Neutrophils/100 WBC (Bld) 86.8 % Critically high 43.0-75.0 [facility] Comment on above: Performed By: #### C BC ####[facility] Bqmvhmjfpo036[address] [place] [address]Dr. Kalie Bess Platelet mean volume (Bld) [Entitic vol] 12.0 fL Normal 9.5-13.5 [facility] Comment on above: Performed By: #### C BC ####[facility] Pazqxsavbn42[address] [place] [address]Dr. Kalie Shahriar PLT 245 103/ul Normal 150-450 [facility] Comment on above: Performed By: #### C BC ####[facility] Hjwwblapal[address] [place], [place] [address]Dr. Kalie Shahriar RBC 3.66 106/ul Critically low 4.20-5.40 [facility] Comment on above: Performed By: #### C BC ####[facility] Eiuazuakcw[address] [place] [address]Dr. Kalie Bess WBC 16.7 103/ul Critically high 4.0-11.0 [facility] Comment on above: Performed By: #### C BC ####[facility] Kuvrphdzjx46[address] [place] [address]Dr. Shayyroxie Bess PROF CHEM 8 (BAS METB)on Anion gap [Moles/Vol] 10.1 mmol/L Normal [facility] Comment on above: Performed By: #### B MP, BNP ####[facility] Njgrwxqgbl6253 [place] [address]Dr. Kalie Bess Calcium [Mass/Vol] 8.4 mg/dL Critically low 8.5-10.1 Th [facility] Comment on above: Performed By: #### B MP, BNP ####[facility] Dxhuhpamjv[address] [place], [place] [address]Dr. Kalie Bess Chloride [Moles/Vol] 96 mmol/L Critically low 98-107 [facility] Comment on above: Performed By: #### B MP, BNP ####[facility] Zcxssvexup7904[address] [place], [place] [address]Dr. Kalie Bess CO2 [Moles/Vol] 36.0 mmol/L Critically high 21.0-32.0 [facility] Comment on above: Performed By: #### B MP, BNP ####[facility] Xrdawpsnms18[address] [place], [place] [address]Dr. Kalie Bess Creatinine [Mass/Vol] 1.64 mg/dL Critically high 0.55-1.02 [facility] Comment on above: Performed By: #### B MP, BNP ####[facility] Wkroavkmny448[address] [place], [place] [address]Dr. Kalie Bess EGFR-AF TANZANIAN 40 mL/min/1.73m2 Critically low >=60 [facility] Comment on above: Performed By: #### B MP, BNP ####[facility] Puuweqoilz6060[address] [place], [place] [address]Dr. Shayyroxie Shahriar EGFR-NON AF TANZANIAN 33 mL/min/1.73m2 Critically low >=60 [facility] Comment on above: Performed By: #### B MP, BNP ####[facility] Zaecllkncn[address] [place], [place] [address]Dr. Kalie Bess Glucose [Mass/Vol] 279 mg/dL Critically high 74-106 [facility] Comment on above: Performed By: #### B MP, BNP ####[facility] Anesvxwxqy0001[address] [place], [place] [address]Dr. Kalie Bess Potassium [Moles/Vol] 4.1 mmol/L Normal 3.5-5.1 [facility] Comment on above: Performed By: #### B MP, BNP ####[facility] Dunliypkwn1644[address] [place], [place] [address]Dr. Kalie Bess Sodium [Moles/Vol] 138 mmol/L Normal 136-145 [facility] Comment on above: Performed By: #### B MP, BNP ####[facility] Esrhzkdmom7320[address] [place], [place] [address]Dr. Kalie Shahriar Urea nitrogen [Mass/Vol] 36.0 mg/dL Critically high 7.0-18.0 [facility] Comment on above: Performed By: #### B MP, BNP ####[facility] Pgpegwreeg417[address] [place], [place] [address]Dr. Kalie Bess Urea nitrogen/Creatinine [Mass ratio] 22.0 mg/mg Normal [facility] Comment on above: Performed By: #### B MP, BNP ####[facility] Oeipgodqtn274[address] [place], [place] [address]Dr. Shayyroxie Bess BNPon 08-04-2022 Natriuretic peptide B (Bld) [Mass/Vol] 2969.0 pg/mL Critically high <=900.0 [facility] Comment on above: Performed By: #### B SIDE FRAMER ####[facility] Mvegiwghas5034[address] [place], [place] [address]Dr. Shayyroxie Bess CBC AUTO DIFFon 08-04-2022 BASO # 0.0 103/ul Normal 0.0-0.1 [facility] Comment on above: Performed By: #### C BC ####[facility] Cgrjwwfmtc2675[address] [place], [place] [address]Dr. Kalie Bess Basophils/100 WBC (Bld) 0.2 % Normal 0.2-2.0 [facility] Comment on above: Performed By: #### C BC ####[facility] Bwkvvkiowe3617[address] [place], [place] [address]Dr. Kalie Bess EO # 0.0 103/ul Normal 0.0-0.7 [facility] Comment on above: Performed By: #### C BC ####[facility] Zbuhlsapln[address] [place], [place] [address]Dr. Kalie Bess Eosinophils/100 WBC (Bld) 0.1 % Critically low 0.9-7.0 [facility] Comment on above: Performed By: #### C BC ####[facility] Asplmbfuet3549[address] [place], [place] [address]Dr. Kalie Bess Erythrocyte distribution width (RBC) [Ratio] 13.9 % Normal 11.0-15.0 [facility] Comment on above: Performed By: #### C BC ####[facility] Hqmfrorswd5[address] [place] [address]Dr. Kalie Bess Hematocrit (Bld) [Volume fraction] 33.4 % Critically low 36.0-48.0 [facility] Comment on above: Performed By: #### C BC ####[facility] Jeeavdubna327[address] [place], [place] [address]Dr. Shayyroxie Bess Hemoglobin (Bld) [Mass/Vol] 10.6 g/dL Critically low 12.0-16.0 [facility] Comment on above: Performed By: #### C BC ####[facility] Adkbejbldb9615[address] [place], [place] [address]Dr. Kalie Bess IG # 0.12 10e3/ul Critically high 0.00-0.03 [facility] Comment on above: Performed By: #### C BC ####[facility] Xrduvvnioz228[address] [place], [place] [address]Dr. Shayyroxie Bess IG % 1.0 % Critically high 0.0-0.5 [facility] Comment on above: Performed By: #### C BC ####[facility] Ujagugialg[address] [place], [place] [address]Dr. Kalie Bess LYMPH # 1.4 103/ul Normal 1.2-3.8 [facility] Comment on above: Performed By: #### C BC ####[facility] Jplmstqtjq045[address] [place], [place] [address]DrCassie Bess Lymphocytes/100 WBC (Bld) 11.1 % Critically low 20.5-60.0 [facility] Comment on above: Performed By: #### C BC ####[facility] Kgwyrbpohg15[address] [place], [place] [address]DrCassie Bess MANUAL DIFF REQ NO Normal [facility] Comment on above: Performed By: #### C BC ####[facility] Upeostsctg698[address] [place], [place] [address]DrCassie Bess MCH (RBC) [Entitic mass] 28.4 pg Normal 26.7-34.0 [facility] Comment on above: Performed By: #### C BC ####[facility] Eacgfgacbn05[address] [place] [address]Dr. Kalie Bess MCHC (RBC) [Mass/Vol] 31.7 g/dL Normal 29.9-35.2 [facility] Comment on above: Performed By: #### C BC ####[facility] Bdgvjneuxr199[address] [place], [place] [address]Dr. Kalie Bess MCV (RBC) [Entitic vol] 89.5 fL Normal 81.0-99.0 [facility] Comment on above: Performed By: #### C BC ####[facility] Iafnarrkgq607[address] [place], [place] [address]DrCassie Kalie Bess MONO # 0.3 103/ul Normal 0.3-0.8 [facility] Comment on above: Performed By: #### C BC ####[facility] Stqyqdakqa05[address] [place], [place] [address]Dr. Shayyroxie Bess Monocytes/100 WBC (Bld) 2.2 % Normal 1.7-12.0 [facility] Comment on above: Performed By: #### C BC ####[facility] Zspweyqnxy136[address] [place], [place] [address]Dr. Kalie Bess NEUT # 10.8 103/ul Critically high 1.4-6.5 [facility] Comment on above: Performed By: #### C BC ####[facility] Fqyjpfcjrl036[address] [place], [place] [address]DrCassie Kalie Shahriar Neutrophils/100 WBC (Bld) 85.4 % Critically high 43.0-75.0 [facility] Comment on above: Performed By: #### C BC ####[facility] Ypvdcfhxzt9728[address] [place], [place] [address]Dr. Kalie Bess Platelet mean volume (Bld) [Entitic vol] 11.9 fL Normal 9.5-13.5 [facility] Comment on above: Performed By: #### C BC ####[facility] Lmempjnkjr16[address] [place] [id number]. Kalie Bess PLT 256 103/ul Normal 150-450 [facility] Comment on above: Performed By: #### C BC ####[facility] Ddnduonhfb8664 [place] [id number]. Kalie Bess RBC 3.73 106/ul Critically low 4.20-5.40 [facility] Comment on above: Performed By: #### C BC ####[facility] Jtvknrfdyh0196 [place] [id number]. Kalie Bess WBC 12.6 103/ul Critically high 4.0-11.0 [facility] Comment on above: Performed By: #### C BC ####[facility] Cugxbnrcrd45[address] [place] [address]Dr. Kalie Shahriar PH, BODY FLUIDon 08-04-2022 pH, Body Fluid 7.7 Normal Not Estab. [facility] Comment on above: Result Comment: The reference interval(s) and other method performance specificationshave not been established for this body fluid. The test result must beintegrated into the clinical context for interpretation. Performed By: #### B DYFLPH ####[facility] Oxirpobkje[address] [place], [place] [address]Dr. Kalie Bess POINT OF CARE GLUCOSEon 07-26-2021 Glucose [Mass/Vol] 355 mg/dL Critically high 74-106 [facility] Comment on above: Performed By: #### P OCGLUC ####[facility] Ybrqpxrlwu70[address] [place] [address]Dr. Kalie Bess Glucose [Mass/Vol] 405 mg/dL Critically high 74-106 [facility] Comment on above: Performed By: #### P OCGLUC ####[facility] Xcmgdvhens237[address] [place], [place] [address]Dr. Kalie Shahriar Glucose [Mass/Vol] 351 mg/dL Critically high 74-106 [facility] Comment on above: Performed By: #### P OCGLUC ####[facility] Nawxmkyckb70[address] [place], [place] [address]Dr. Kalie Bess PROF CHEM 8 (BAS METB)on Anion gap [Moles/Vol] 10.1 mmol/L Normal [facility] Comment on above: Performed By: #### B MP ####[facility] Hbzrmsjdzt3656 [place] [address]Dr. Shayyroxie Bess Calcium [Mass/Vol] 8.6 mg/dL Normal 8.5-10.1 [facility] Comment on above: Performed By: #### B MP ####[facility] Rtflxcklmr9023[address] [place], [place] [address]Dr. Kalie Bess Chloride [Moles/Vol] 99 mmol/L Normal 98-107 [facility] Comment on above: Performed By: #### B MP ####[facility] Qydgsakqvi8249[address] [place], [place] [address]Dr. Kalie Bess CO2 [Moles/Vol] 33.0 mmol/L Critically high 21.0-32.0 [facility] Comment on above: Performed By: #### B MP ####[facility] Jfapgycntm2936[address] [place], [place] [address]Dr. Kalie Bess Creatinine [Mass/Vol] 1.54 mg/dL Critically high 0.55-1.02 [facility] Comment on above: Performed By: #### B MP ####[facility] Fryqhvjweo670[address] [place], [place] [address]Dr. Kalie Bess EGFR-AF TANZANIAN 43 mL/min/1.73m2 Critically low >=60 [facility] Comment on above: Performed By: #### B MP ####[facility] Lmzrqudgvf689[address] [place], [place] [address]Dr. Kalie Bess EGFR-NON AF TANZANIAN 36 mL/min/1.73m2 Critically low >=60 [facility] Comment on above: Performed By: #### B MP ####[facility] Qrvnxtsfzj238[address] [place], [place] [address]Dr. Kalie Bess Glucose [Mass/Vol] 264 mg/dL Critically high 74-106 T [facility] Comment on above: Performed By: #### B MP ####[facility] Ywrnpedaqs599[address] [place], [place] [address]Dr. Kalie Bess Potassium [Moles/Vol] 4.1 mmol/L Normal 3.5-5.1 [facility] Comment on above: Performed By: #### B MP ####[facility] Yigsluohbg12[address] [place] [address]Dr. Kalie Bess Sodium [Moles/Vol] 138 mmol/L Normal 136-145 [facility] Comment on above: Performed By: #### B MP ####[facility] Yjjuobfdhz204[address] [place], [place] [address]Dr. Kalie Bess Urea nitrogen [Mass/Vol] 27.0 mg/dL Critically high 7.0-18.0 [facility] Comment on above: Performed By: #### B MP ####[facility] Atxmmorwfr[address] [place], [place] [address]Dr. Kalie Shahriar Urea nitrogen/Creatinine [Mass ratio] 17.5 mg/mg Normal [facility] Comment on above: Performed By: #### B MP ####[facility] Dyijvufuyv[address] [place], [place] [address]Dr. Kalie Shahriar XR CHEST 2 Von 08-04-2022 XR CHEST 2 V Normal [facility] CBC AUTO DIFFon 08-03-2022 BASO # 0.1 103/ul Normal 0.0-0.1 [facility] Comment on above: Performed By: #### C BC ####[facility] Siemmaauzx[address] [place], [place] [address]Dr. Kalie Bess Basophils/100 WBC (Bld) 0.4 % Normal 0.2-2.0 [facility] Comment on above: Performed By: #### C BC ####[facility] Xdzojrrlcl[address] [place], [place] [address]Dr. Kalie Bess EO # 0.6 103/ul Normal 0.0-0.7 [facility] Comment on above: Performed By: #### C BC ####[facility] Dtmzvqdrdo[address] [place], [place] [address]Dr. Kalie Bess Eosinophils/100 WBC (Bld) 4.3 % Normal 0.9-7.0 [facility] Comment on above: Performed By: #### C BC ####[facility] Fbyjahwqvk8[address] [place] [address]Dr. Kalie Bess Erythrocyte distribution width (RBC) [Ratio] 14.2 % Normal 11.0-15.0 [facility] Comment on above: Performed By: #### C BC ####[facility] Dzbunxfvqm049[address] [place], [place] [address]Dr. Kalie Bess Hematocrit (Bld) [Volume fraction] 32.1 % Critically low 36.0-48.0 [facility] Comment on above: Performed By: #### C BC ####[facility] Oyjrbqdbsb[address] [place], [place] [address]Dr. Kalie Bess Hemoglobin (Bld) [Mass/Vol] 10.3 g/dL Critically low 12.0-16.0 [facility] Comment on above: Performed By: #### C BC ####[facility] P[address]we[address]zdw[address] [place], [place] [address]Dr. Kalie Bess IG # 0.06 10e3/ul Critically high 0.00-0.03 [facility] Comment on above: Performed By: #### C BC ####[facility] Zaghgsrvqq[address] [place], [place] [address]Dr. Kalie Bess IG % 0.4 % Normal 0.0-0.5 [facility] Comment on above: Performed By: #### C BC ####[facility] Lpjzcsfbxb02[address] [place], [place] [address]Dr. Kalie Bess LYMPH # 3.0 103/ul Normal 1.2-3.8 [facility] Comment on above: Performed By: #### C BC ####[facility] Zbhcmtsted74[address] [place], [place] [address]Dr. Kalie Bess Lymphocytes/100 WBC (Bld) 21.0 % Normal 20.5-60.0 [facility] Comment on above: Performed By: #### C BC ####[facility] Xjxigdchjm[address] [place], [place] [address]Dr. Kalie Bess MANUAL DIFF REQ NO Normal [facility] Comment on above: Performed By: #### C BC ####[facility] Yocwpxjgao5[address] [place] [id number]. Kalie Bess MCH (RBC) [Entitic mass] 28.9 pg Normal 26.7-34.0 [facility] Comment on above: Performed By: #### C BC ####[facility] Dlagcszscj5219 [place] [id number]. Kalie Bess MCHC (RBC) [Mass/Vol] 32.1 g/dL Normal 29.9-35.2 [facility] Comment on above: Performed By: #### C BC ####[facility] Ofryaqqfpa[address] [place] [address]Dr. Kalie Shahriar MCV (RBC) [Entitic vol] 89.9 fL Normal 81.0-99.0 [facility] Comment on above: Performed By: #### C BC ####[facility] Wriimvpnbi[address] [place], [place] [address]Dr. Kalie Bess MONO # 1.0 103/ul Critically high 0.3-0.8 [facility] Comment on above: Performed By: #### C BC ####[facility] Orlfpxdzsn5[address] [place] [address]Dr. Kalie Shahriar Monocytes/100 WBC (Bld) 6.9 % Normal 1.7-12.0 [facility] Comment on above: Performed By: #### C BC ####[facility] Bxwisfzlvo5306 [place] [address]DrCassie Kalie Bess NEUT # 9.5 103/ul Critically high 1.4-6.5 [facility] Comment on above: Performed By: #### C BC ####[facility] Qyathisuxk[address] [place], [place] [address]DrCassie Kalie Shahriar Neutrophils/100 WBC (Bld) 67.0 % Normal 43.0-75.0 [facility] Comment on above: Performed By: #### C BC ####[facility] Zqsytkkwov85[address] [place] [address]DrCassie Kalie Shahriar Platelet mean volume (Bld) [Entitic vol] 11.6 fL Normal 9.5-13.5 [facility] Comment on above: Performed By: #### C BC ####[facility] Uyecrvilsn5[address] [place] [id number]. Kalie Bess PLT 227 103/ul Normal 150-450 [facility] Comment on above: Performed By: #### C BC ####[facility] Iqsvgnifts0157 [place] [phone]. Kalie Bess RBC 3.57 106/ul Critically low 4.20-5.40 [facility] Comment on above: Performed By: #### C BC ####[facility] Eliszabkxd5463 [place] [phone]. Kalie Bess WBC 14.1 103/ul Critically high 4.0-11.0 [facility] Comment on above: Performed By: #### C BC ####[facility] Swsjhznuer7[address] [place] [phone]. Shayyroxie Shahriar POINT OF CARE GLUCOSEon Glucose [Mass/Vol] 340 mg/dL Critically high 74-106 [facility] Comment on above: Performed By: #### P OCGLUC ####[facility] Uqosxxegup20[address] [place] [address]Dr. Kalie Bess Glucose [Mass/Vol] 270 mg/dL Critically high 74-106 [facility] Comment on above: Performed By: #### P OCGLUC ####[facility] Pgyzhkcthb7721 [place] [phone]. Shayyroxie Shahriar Glucose [Mass/Vol] 176 mg/dL Critically high 74-106 [facility] Comment on above: Performed By: #### P OCGLUC ####[facility] Bhixbiexqs0707 [place] [phone]. Shayyroxie Shahriar Glucose [Mass/Vol] 178 mg/dL Critically high 74-106 [facility] Comment on above: Performed By: #### P OCGLUC ####[facility] Fgivpssaoh7638 [place] [phone]. Kalie Bess PROF CHEM 8 (BAS METB)on 10- 09-2022 Anion gap [Moles/Vol] 5.7 mmol/L Normal [facility] Comment on above: Performed By: #### B MP ####[facility] Ayevqabkjc[address] [place], [place] [address]Dr. Kalie Bess Calcium [Mass/Vol] 8.4 mg/dL Critically low 8.5-10.1 [facility] Comment on above: Performed By: #### B MP ####[facility] Fzoiqwmwbj3020[address] [place], [place] [address]Dr. Kalie Bess Chloride [Moles/Vol] 100 mmol/L Normal 98-107 [facility] Comment on above: Performed By: #### B MP ####[facility] Trearubnhx368[address] [place], [place] [address]Dr. Kalie Bess CO2 [Moles/Vol] 34.0 mmol/L Critically high 21.0-32.0 [facility] Comment on above: Performed By: #### B MP ####[facility] Imsreqehcx9[address] [place], [place] [address]Dr. Kalie Bess Creatinine [Mass/Vol] 1.25 mg/dL Critically high 0.55-1.02 [facility] Comment on above: Performed By: #### B MP ####[facility] Wtqfmvehoc489[address] [place], [place] [address]Dr. Kalie Bess EGFR-AF TANZANIAN 55 mL/min/1.73m2 Critically low >=60 [facility] Comment on above: Performed By: #### B MP ####[facility] Twgcmowech318[address] [place], [place] [address]Dr. Kalie Bess EGFR-NON AF TANZANIAN 45 mL/min/1.73m2 Critically low >=60 [facility] Comment on above: Performed By: #### B MP ####[facility] Flkytudqmd4870[address] [place], [place] [address]Dr. Kalie Bess Glucose [Mass/Vol] 193 mg/dL Critically high 74-106 [facility] Comment on above: Performed By: #### B MP ####[facility] Rlecstwxdt1727[address] [place], [place] [address]Dr. Kalie Bess Potassium [Moles/Vol] 3.7 mmol/L Normal 3.5-5.1 [facility] Comment on above: Performed By: #### B MP ####[facility] Hairyseqib6[address] [place] [address]Dr. Kalie Bess Sodium [Moles/Vol] 136 mmol/L Normal 136-145 [facility] Comment on above: Performed By: #### B MP ####[facility] Muzcvlujgy135[address] [place], [place] [address]Dr. Kalie Bess Urea nitrogen [Mass/Vol] 24.0 mg/dL Critically high 7.0-18.0 [facility] Comment on above: Performed By: #### B MP ####[facility] Yuhzqabveo47[address] [place], [place] [address]Dr. Kalie Bess Urea nitrogen/Creatinine [Mass ratio] 19.2 mg/mg Normal [facility] Comment on above: Performed By: #### B MP ####[facility] Zvmqfliopd667[address] [place], [place] [address]Dr. Kalie Bess XR CHEST 2 Von 08-03-2022 XR CHEST 2 V Normal [facility] CBC AUTO DIFFon 08-02-2022 BASO # 0.1 103/ul Normal 0.0-0.1 [facility] Comment on above: Performed By: #### C BC ####[facility] Oyqwrqfbva[address] [place], [place] [address]Dr. Kalie Shahriar Basophils/100 WBC (Bld) 0.4 % Normal 0.2-2.0 [facility] Comment on above: Performed By: #### C BC ####[facility] Fxkulwqxqu255[address] [place], [place] [address]Dr. Kalie Bess EO # 0.5 103/ul Normal 0.0-0.7 [facility] Comment on above: Performed By: #### C BC ####[facility] Nffmkmqukh64[address] [place], [place] [address]Dr. Kalie Shahriar Eosinophils/100 WBC (Bld) 4.0 % Normal 0.9-7.0 [facility] Comment on above: Performed By: #### C BC ####[facility] Czgunkkyrx7168 [place] [address]Dr. Kalie Bess Erythrocyte distribution width (RBC) [Ratio] 14.1 % Normal 11.0-15.0 [facility] Comment on above: Performed By: #### C BC ####[facility] Xykoglhjnm7864 [place] [address]Dr. Kalie Bess Hematocrit (Bld) [Volume fraction] 32.4 % Critically low 36.0-48.0 [facility] Comment on above: Performed By: #### C BC ####[facility] Exjfckwypl9104 [place] [address]Dr. Kalie Bess Hemoglobin (Bld) [Mass/Vol] 10.7 g/dL Critically low 12.0-16.0 [facility] Comment on above: Performed By: #### C BC ####[facility] Uevrnlwkkp8[address] [place], [place] [address]Dr. Kalie Bess IG # 0.08 10e3/ul Critically high 0.00-0.03 [facility] Comment on above: Performed By: #### C BC ####[facility] Hywjjuvpjm[address] [place], [place] [address]Dr. Kalie Bess IG % 0.6 % Critically high 0.0-0.5 [facility] Comment on above: Performed By: #### C BC ####[facility] Lvfgsltqch[address] [place], [place] [address]Dr. Kalie Bess LYMPH # 2.9 103/ul Normal 1.2-3.8 [facility] Comment on above: Performed By: #### C BC ####[facility] Sdhbzjcmdl0860[address] [place], [place] [address]Dr. Kalie Bess Lymphocytes/100 WBC (Bld) 21.3 % Normal 20.5-60.0 [facility] Comment on above: Performed By: #### C BC ####[facility] Sflmrjaobz87[address] [place], [place] [address]Dr. Kalie Bess MANUAL DIFF REQ NO Normal [facility] Comment on above: Performed By: #### C BC ####[facility] Tvqjuvabph1832 [place] [phone]. Kalie Bess MCH (RBC) [Entitic mass] 28.8 pg Normal 26.7-34.0 [facility] Comment on above: Performed By: #### C BC ####[facility] Jlqxrwnuvj1773 [place] [phone]. Kalie Bess MCHC (RBC) [Mass/Vol] 33.0 g/dL Normal 29.9-35.2 [facility] Comment on above: Performed By: #### C BC ####[facility] Obwopthodd3727 [place] [phone]. Kalie Shahriar MCV (RBC) [Entitic vol] 87.3 fL Normal 81.0-99.0 [facility] Comment on above: Performed By: #### C BC ####[facility] Xfxnjgmhqd[address] [place], [place] [address]Dr. Kalie Bess MONO # 0.9 103/ul Critically high 0.3-0.8 [facility] Comment on above: Performed By: #### C BC ####[facility] Ekuyzbmbxp2294 [place] [address]Dr. Kalie Bess Monocytes/100 WBC (Bld) 6.9 % Normal 1.7-12.0 [facility] Comment on above: Performed By: #### C BC ####[facility] Noqcsjnbsh3443 [place] [address]Dr. Kalie Bess NEUT # 9.0 103/ul Critically high 1.4-6.5 [facility] Comment on above: Performed By: #### C BC ####[facility] Aplfabvhza3529 [place] [address]Dr. Kalie Bess Neutrophils/100 WBC (Bld) 66.8 % Normal 43.0-75.0 [facility] Comment on above: Performed By: #### C BC ####[facility] Qqyddyastd1343 [place] [phone]. Kalie Bess Platelet mean volume (Bld) [Entitic vol] 11.6 fL Normal 9.5-13.5 [facility] Comment on above: Performed By: #### C BC ####[facility] Zojultmgqa8991 [place], [place] [address]Iy. Kalie Bess PLT 241 103/ul Normal 150-450 [facility] Comment on above: Performed By: #### C BC ####[facility] Jtoonaztjj4718 [place], [place] [address]Ef. Kalie Bess RBC 3.71 106/ul Critically low 4.20-5.40 [facility] Comment on above: Performed By: #### C BC ####[facility] Moluqjkxzo1986 [place], [place] [address]Dr. Kalie Bess WBC 13.4 103/ul Critically high 4.0-11.0 [facility] Comment on above: Performed By: #### C BC ####[facility] Ipltxtsxab4291 [place] [phone]. Kalie Bess POINT OF CARE GLUCOSEon Glucose [Mass/Vol] 106 mg/dL Normal 74-106 [facility] Comment on above: Performed By: #### P OCGLUC ####[facility] Haouifexsn9119 [place] [phone]. Kalie Bess Glucose [Mass/Vol] 109 mg/dL Critically high 74-106 [facility] Comment on above: Performed By: #### P OCGLUC ####[facility] Cbhiosadgk3665 [place] [phone]. Kalie Bess Glucose [Mass/Vol] 159 mg/dL Critically high 74-106 [facility] Comment on above: Performed By: #### P OCGLUC ####[facility] Jpnkfaauqt4295 [place] [phone]. Kalie Bess Glucose [Mass/Vol] 340 mg/dL Critically high 74-106 [facility] Comment on above: Performed By: #### P OCGLUC ####[facility] Ropzdwpfix9152 [place] [phone]. Kalie Bess PROF CHEM 8 (BAS METB)on Anion gap [Moles/Vol] 6.9 mmol/L Normal [facility] Comment on above: Performed By: #### B MP ####[facility] Ioknsgeigg6426 [place] [phone]. Kalie Shahriar Calcium [Mass/Vol] 8.0 mg/dL Critically low 8.5-10.1 [facility] Comment on above: Performed By: #### B MP ####[facility] Qulrcnoowv9436 [place] [phone]. Kalie Bess Chloride [Moles/Vol] 96 mmol/L Critically low 98-107 [facility] Comment on above: Performed By: #### B MP ####[facility] Updndbgrld0135 [place] [address]Dr. Kalie Bess CO2 [Moles/Vol] 33.7 mmol/L Critically high 21.0-32.0 [facility] Comment on above: Performed By: #### B MP ####[facility] Jjjmbahicf[address] [place], [place] [address]Dr. Kalie Bess Creatinine [Mass/Vol] 1.35 mg/dL Critically high 0.55-1.02 [facility] Comment on above: Performed By: #### B MP ####[facility] Bzyskrhygs56[address] [place], [place] [address]Dr. Kalie Bess EGFR-AF TANZANIAN 50 mL/min/1.73m2 Critically low >=60 [facility] Comment on above: Performed By: #### B MP ####[facility] Tozxgngonq809[address] [place], [place] [address]Dr. Kalie Bess EGFR-NON AF TANZANIAN 41 mL/min/1.73m2 Critically low >=60 [facility] Comment on above: Performed By: #### B MP ####[facility] Fulpwpmdla[address] [place], [place] [address]Dr. Kalie Bess Glucose [Mass/Vol] 339 mg/dL Critically high 74-106 [facility] Comment on above: Performed By: #### B MP ####[facility] Rccxysrrno[address] [place], [place] [address]Dr. Kalie Bess Potassium [Moles/Vol] 3.6 mmol/L Normal 3.5-5.1 [facility] Comment on above: Performed By: #### B MP ####[facility] Wdnfhyijem0188 [place] [address]Dr. Shayyroxie Shahriar Sodium [Moles/Vol] 133 mmol/L Critically low 136-145 [facility] Comment on above: Performed By: #### B MP ####[facility] Wtiauwsxwv9524 [place] [address]Dr. Kalie Bess Urea nitrogen [Mass/Vol] 28.0 mg/dL Critically high 7.0-18.0 [facility] Comment on above: Performed By: #### B MP ####[facility] Qifflfrkba6247 [place] [address]Dr. Kalie Bess Urea nitrogen/Creatinine [Mass ratio] 20.7 mg/mg Normal [facility] Comment on above: Performed By: #### B MP ####[facility] Hbqzmppeim69[address] [place], [place] [address]Dr. Kalie Bess XR CHEST 2 Von 08-02-2022 XR CHEST 2 V Normal [facility] AMYLASE, BODY FLUIDon 2021 Amylase [Catalytic activity/Vol] 18 U/L Normal [facility] Comment on above: Result Comment: ____ : BODY FLUID TYPE : AMYLASE : : : : : Lymph : 50 - 83 : : : : : Peritoneal : : : Fluid : 88 - 109 : : : : : Saliva : : : (Mixed Glands) : [id number] - [id number] : : : : . Shilo Huston V. Reference Intervals for Adults and Children 2008. Ninth Edition (V9.1) [employer], [facility]; [place]: April 2009.The method performance specifications have not been established forthis test in body fluid. The test result should be integrated intothe clinical context for interpretation. Performed By: #### A MYBODY ####[facility] Arkfbsdifn[address] [place], [place] [address]Dr. Kalie Bess CBC AUTO DIFFon 08-01-2022 BASO # 0.0 103/ul Normal 0.0-0.1 [facility] Comment on above: Performed By: #### C BC ####[facility] Jtjandeast218[address] [place], [place] [address]Dr. Kalie Bess Basophils/100 WBC (Bld) 0.3 % Normal 0.2-2.0 [facility] Comment on above: Performed By: #### C BC ####[facility] Xrfsqvtckm65[address] [place], [place] [address]Dr. Kalie Bess EO # 0.4 103/ul Normal 0.0-0.7 [facility] Comment on above: Performed By: #### C BC ####[facility] Davbhiswri[address] [place], [place] [address]Dr. Kalie Bess Eosinophils/100 WBC (Bld) 3.2 % Normal 0.9-7.0 [facility] Comment on above: Performed By: #### C BC ####[facility] Zgxtzysvry7[address] [place], [place] [address]Dr. Kalie Bess Erythrocyte distribution width (RBC) [Ratio] 14.0 % Normal 11.0-15.0 [facility] Comment on above: Performed By: #### C BC ####[facility] Vbsceifexj525[address] [place], [place] [address]Dr. Kalie Bess Hematocrit (Bld) [Volume fraction] 34.0 % Critically low 36.0-48.0 [facility] Comment on above: Performed By: #### C BC ####[facility] Cmdfxkeqce6990 [place] [address]Dr. Kalie Bess Hemoglobin (Bld) [Mass/Vol] 10.9 g/dL Critically low 12.0-16.0 [facility] Comment on above: Performed By: #### C BC ####[facility] Maekjvdtyl68[address] [place] [address]Dr. Kalie Bess IG # 0.11 10e3/ul Critically high 0.00-0.03 [facility] Comment on above: Performed By: #### C BC ####[facility] Gkjtwuldqs4551 [place] [address]Dr. Kalie Bess IG % 0.8 % Critically high 0.0-0.5 [facility] Comment on above: Performed By: #### C BC ####[facility] Ugykltajwb13[address] [place], [place] [address]Dr. Kalie Bess LYMPH # 3.2 103/ul Normal 1.2-3.8 [facility] Comment on above: Performed By: #### C BC ####[facility] Wnhnrnmzty7986 [place] [address]Dr. Kalie Bess Lymphocytes/100 WBC (Bld) 24.6 % Normal 20.5-60.0 [facility] Comment on above: Performed By: #### C BC ####[facility] Kepdufveuq8651 [place] [address]Dr. Kalie Bess MANUAL DIFF REQ NO Normal [facility] Comment on above: Performed By: #### C BC ####[facility] Coqnknktqz[address] [place], [place] [address]Dr. Kalie Bess MCH (RBC) [Entitic mass] 28.3 pg Normal 26.7-34.0 [facility] Comment on above: Performed By: #### C BC ####[facility] Sbqyntnmuy199[address] [place], [place] [address]Dr. Kalie Bess MCHC (RBC) [Mass/Vol] 32.1 g/dL Normal 29.9-35.2 [facility] Comment on above: Performed By: #### C BC ####[facility] Xkojjdbwnm2277 [place] [phone]. Kalie Bess MCV (RBC) [Entitic vol] 88.3 fL Normal 81.0-99.0 [facility] Comment on above: Performed By: #### C BC ####[facility] Skjstqyklm0341 [place] [phone]. Kalie Bess MONO # 0.8 103/ul Normal 0.3-0.8 [facility] Comment on above: Performed By: #### C BC ####[facility] Ihlctoxxyv8227 [place] [phone]. Kalie Shahriar Monocytes/100 WBC (Bld) 5.8 % Normal 1.7-12.0 [facility] Comment on above: Performed By: #### C BC ####[facility] Gkrivdakkn[address] [place], [place] [address]Dr. Kalie Bess NEUT # 8.5 103/ul Critically high 1.4-6.5 [facility] Comment on above: Performed By: #### C BC ####[facility] Hqkygzlxpg[address] [place], [place] [address]Dr. Kalie Shahriar Neutrophils/100 WBC (Bld) 65.3 % Normal 43.0-75.0 [facility] Comment on above: Performed By: #### C BC ####[facility] Sfuwkispai[address] [place], [place] [address]Dr. Kalie Shahriar Platelet mean volume (Bld) [Entitic vol] 11.5 fL Normal 9.5-13.5 [facility] Comment on above: Performed By: #### C BC ####[facility] Zdavlibhww9975 [place] [phone]. Kalie Shahriar PLT 256 103/ul Normal 150-450 [facility] Comment on above: Performed By: #### C BC ####[facility] Jszodsnpcv3957 [place] [phone]. Kalie Bess RBC 3.85 106/ul Critically low 4.20-5.40 [facility] Comment on above: Performed By: #### C BC ####[facility] Wpnmrjeivp7157 [place], [place] [address]Ae. Kalie Bess WBC 13.0 103/ul Critically high 4.0-11.0 [facility] Comment on above: Performed By: #### C BC ####[facility] Yuozntyarh0545 [place], [place] [address]Vc. Kalie Bess CELL COUNT BODY FLUIDon 10-0 Clarity, Serous Clear Normal Clear [facility] Comment on above: Performed By: #### C CBFS ####[facility] Yyydavthng7471 [place] [phone]. Kalie Bess Color, Serous Colorless Normal [facility] Comment on above: Result Comment: [place] rless to Pale Yellow/Straw Performed By: #### C CBFS ####[facility] Ievsggpkfj5962 [place] [phone]. Kalie Bess Comments: Normal [facility] Comment on above: Performed By: #### C CBFS ####[facility] Ytirzlbqna1773 [place] [phone]. Kalie Bess Eosinophils/100 WBC (Bld) 0 % Normal Not Estab. [facility] Comment on above: Performed By: #### C CBFS ####[facility] Teolxpwxnl7242 [place] [phone]. Kalie Bess Lining Cells, Serous Normal [facility] Comment on above: Performed By: #### C CBFS ####[facility] Gkwohhlmpp9038 [place] [phone]. Kalie Bess Lymphocytes/100 WBC (Bld) 25 % Normal Not Estab. [facility] Comment on above: Performed By: #### C CBFS ####[facility] Wfnqwpaefk4356 [place] [phone]. Kalie Bess Macrophages, Serous 41 % Normal Not Estab. [facility] Comment on above: Performed By: #### C CBFS ####[facility] Mjkrfwjoom9931 [place] [phone]. Kalie Bess Nucleated Cells, Serous 73 /mm3 Normal 0-499 [facility] Comment on above: Result Comment: Pleu ral Fluid, with <1000 Nucleated cells/uL has been associated with transudates while >1000 uL may be seen in exudates. Performed By: #### C CBFS ####[facility] Houpkfydcm9510 [place], [place] [address]Kr. Kalie Bess Polys, Serous 34 % Critically high 0-24 [facility] Comment on above: Performed By: #### C CBFS ####[facility] Bumyhdekum4388 [place], [place] [address]Tr. Kalie Bess RBC (Bld) [#/Vol] 0 10*6/uL Normal Not Estab. [facility] Comment on above: Performed By: #### C CBFS ####[facility] Exrhrwzhsw8530 [place], [place] [address]Dh. Kalie Bess GLUCOSE BODYFLUIDon 08-01-20 22 Glucose, Body Fluid 209 mg/dL Normal [facility] Comment on above: Result Comment: ____ [...] - 288 : : : : . [place] W, Shilo V. Reference Intervals for Adults and Children 2007. Ninth edition (V9.1) [employer], [facility]; [place]: April 2009.The reference intervals and other method performance specificationshave not been established for this test. The test result should beintegrated into the clinical context for interpretation. Performed By: #### B FGLUC ####[address] Kalie Bess LACTIC ACID DEHYDROGENASE (L D), BODY FLUon 08-01-2022 LD, Body Fluid 127 IU/L Normal [facility] Comment on above: Result Comment: ____ [...] 2008. Ninth Edition (V9.1) [employer], [facility]; [place]: April 2009.The reference intervals and other method performance specificationshave not been established for this test. The test result should beintegrated into the clinical context for interpretation. Performed By: #### L [facility] ####[address] Kalie Bess POINT OF CARE GLUCOSEon 10-0 Glucose [Mass/Vol] 322 mg/dL Critically high 74-106 [facility] Comment on above: Performed By: #### P OCGLUC ####[facility] Agvgbdphet2234 [place] [address]Dr. Kalie Bess Glucose [Mass/Vol] 299 mg/dL Critically high 74-106 [facility] Comment on above: Performed By: #### P OCGLUC ####[facility] Edekzggbcb[address] [place], [place] [address]Dr. Kalie Bess Glucose [Mass/Vol] 306 mg/dL Critically high 74-106 [facility] Comment on above: Performed By: #### P OCGLUC ####[facility] Xzvrdftotg8[address] [place], [place] [address]Dr. Kalie Bess Glucose [Mass/Vol] 339 mg/dL Critically high 74-106 [facility] Comment on above: Performed By: #### P OCGLUC ####[facility] Qibyabzukh[address] [place], [place] [address]Dr. Kalie Shahriar PROF CHEM 8 (BAS METB)on Anion gap [Moles/Vol] 6.3 mmol/L Normal [facility] Comment on above: Performed By: #### B MP ####[facility] Keszbwopnm[address] [place], [place] [address]Dr. Kalie Shahriar Calcium [Mass/Vol] 8.0 mg/dL Critically low 8.5-10.1 [facility] Comment on above: Performed By: #### B MP ####[facility] Pkppsoglrm[address] [place], [place] [address]Dr. Kalie Shahriar Chloride [Moles/Vol] 97 mmol/L Critically low 98-107 [facility] Comment on above: Performed By: #### B MP ####[facility] Zgltuzllnp[address] [place], [place] [address]Dr. Kalie Shahriar CO2 [Moles/Vol] 35.6 mmol/L Critically high 21.0-32.0 [facility] Comment on above: Performed By: #### B MP ####[facility] Zzxsyumflv[address] [place], [place] [address]Dr. Shayyroxie Bess Creatinine [Mass/Vol] 1.50 mg/dL Critically high 0.55-1.02 [facility] Comment on above: Performed By: #### B MP ####[facility] Somwxirvaq[address] [place] [address]Dr. Shayyroxie Shahriar EGFR-AF TANZANIAN 44 mL/min/1.73m2 Critically low >=60 [facility] Comment on above: Performed By: #### B MP ####[facility] Qkdgnrkvbx[address] [place], [place] [address]Dr. Shayyroxie Shahriar EGFR-NON AF TANZANIAN 37 mL/min/1.73m2 Critically low >=60 [facility] Comment on above: Performed By: #### B MP ####[facility] Vwrbsmawkr[address] [place], [place] [address]Dr. Kalie Bess Glucose [Mass/Vol] 303 mg/dL Critically high 74-106 T [facility] Comment on above: Performed By: #### B MP ####[facility] Ukciyuymec[address] [place], [place] [address]Dr. Kalie Bess Potassium [Moles/Vol] 3.0 mmol/L Critically low 3.5-5.1 [facility] Comment on above: Performed By: #### B MP ####[facility] Gtgmwpxkvs8[address] [place], [place] [address]Dr. Kalie Bess Sodium [Moles/Vol] 137 mmol/L Normal 136-145 [facility] Comment on above: Performed By: #### B MP ####[facility] Nxkxrxomvb2[address] [place], [place] [address]Dr. Kalie Bess Urea nitrogen [Mass/Vol] 27.0 mg/dL Critically high 7.0-18.0 [facility] Comment on above: Performed By: #### B MP ####[facility] Llinkzmqxu62[address] [place], [place] [address]Dr. Kalie Bess Urea nitrogen/Creatinine [Mass ratio] 18.0 mg/mg Normal [facility] Comment on above: Performed By: #### B MP ####[facility] Opmqlvpbxv380[address] [place], [place] [address]Dr. Kalie Bess PROTEIN, TOTAL, BODY FLUIDon 08-01-2022 Protein, Body Fluid 1.4 g/dL Normal [facility] Comment on above: Result Comment: ____ [...] 0.9 : : : : . Mars WShilo V. Reference Intervals for Adults and Children 2007. Ninth Edition (V9.1) [employer], [facility]; [place]: April 2009.The method performance specifications have not been established forthis test in body fluid. The test result should be integrated intothe clinical context for interpretation. Performed By: #### T PBF ####[facility] Giperlq[address] [place] [id number]. Kalie Shahriar XR CHEST 1 Von 08-01-2022 XR CHEST 1 V Normal [facility] BNPon 07-31-2022 Natriuretic peptide B (Bld) [Mass/Vol] 4467.0 pg/mL Critically high <=900.0 [facility] Comment on above: Performed By: #### B SIDE FRAMER ####[facility] Bfxaaposhw[address] [place] [id number]. Kalie Bess CBC AUTO DIFFon 07-31-2022 BASO # 0.1 103/ul Normal 0.0-0.1 [facility] Comment on above: Performed By: #### C BC ####[facility] Ebhjwjdrmd3089 [place] [id number]. Kalie Bess Basophils/100 WBC (Bld) 0.5 % Normal 0.2-2.0 [facility] Comment on above: Performed By: #### C BC ####[facility] Fzfwpmyaqy29[address] [place], [place] [address]Dr. Kalie Bess EO # 0.4 103/ul Normal 0.0-0.7 [facility] Comment on above: Performed By: #### C BC ####[facility] Tlohpfhanl7[address] [place], [place] [address]Dr. Kalie Shahriar Eosinophils/100 WBC (Bld) 2.7 % Normal 0.9-7.0 [facility] Comment on above: Performed By: #### C BC ####[facility] Ryoccitshk88[address] [place], [place] [address]Dr. Kalie Bess Erythrocyte distribution width (RBC) [Ratio] 13.9 % Normal 11.0-15.0 [facility] Comment on above: Performed By: #### C BC ####[facility] Iclnerhfrh634[address] [place], [place] [address]Dr. Kalie Bess Hematocrit (Bld) [Volume fraction] 31.6 % Critically low 36.0-48.0 [facility] Comment on above: Performed By: #### C BC ####[facility] Jmanggtuir7659[address] [place], [place] [address]Dr. Kalie eBss Hemoglobin (Bld) [Mass/Vol] 10.1 g/dL Critically low 12.0-16.0 [facility] Comment on above: Performed By: #### C BC ####[facility] War[address] [place], [place] [address]Dr. Kalie Bess IG # 0.15 10e3/ul Critically high 0.00-0.03 [facility] Comment on above: Performed By: #### C BC ####[facility] Awinciehwv8[address] [place] [id number]. Kalie Bess IG % 1.1 % Critically high 0.0-0.5 [facility] Comment on above: Performed By: #### C BC ####[facility] Ppqmdxikqm8775 [place] [phone]. Kalie Bess LYMPH # 3.5 103/ul Normal 1.2-3.8 [facility] Comment on above: Performed By: #### C BC ####[facility] Tphfyquhha6699 [place] [phone] Bess Lymphocytes/100 WBC (Bld) 26.3 % Normal 20.5-60.0 [facility] Comment on above: Performed By: #### C BC ####[facility] O[address]vbvutjk40[address] [place] [address]Dr. Kalie Bess MANUAL DIFF REQ NO Normal [facility] Comment on above: Performed By: #### C BC ####[facility] Uxtrtjheru8405 [place] [phone]. Shayyroxie Bess MCH (RBC) [Entitic mass] 28.5 pg Normal 26.7-34.0 [facility] Comment on above: Performed By: #### C BC ####[facility] Ilyivnbruz4411 [place] [phone]. Shayyroxie Bess MCHC (RBC) [Mass/Vol] 32.0 g/dL Normal 29.9-35.2 [facility] Comment on above: Performed By: #### C BC ####[facility] Qgmdsdxyks3033 [place] [phone] Bess MCV (RBC) [Entitic vol] 89.3 fL Normal 81.0-99.0 [facility] Comment on above: Performed By: #### C BC ####[facility] Eeahfpucrr2718 [place] [phone] Bess MONO # 1.1 103/ul Critically high 0.3-0.8 [facility] Comment on above: Performed By: #### C BC ####[facility] Zsypgllvej3351 [place] [phone]. Kalie Bess Monocytes/100 WBC (Bld) 8.4 % Normal 1.7-12.0 [facility] Comment on above: Performed By: #### C BC ####[facility] Cgqtbsdndj1132 [place] [phone]. Kalie Bess NEUT # 8.1 103/ul Critically high 1.4-6.5 [facility] Comment on above: Performed By: #### C BC ####[facility] Bdordliebu6217 [place] [phone]. Kalie Bess Neutrophils/100 WBC (Bld) 61.0 % Normal 43.0-75.0 [facility] Comment on above: Performed By: #### C BC ####[facility] Ounbbnplez1084 [place] [phone]. Kalie Bess Platelet mean volume (Bld) [Entitic vol] 11.6 fL Normal 9.5-13.5 [facility] Comment on above: Performed By: #### C BC ####[facility] Imdiclknzx8995 [place] [phone]. Kalie Bess PLT 248 103/ul Normal 150-450 [facility] Comment on above: Performed By: #### C BC ####[facility] Ozgpumokkt6951 [place] [phone]. Kalie Bess RBC 3.54 106/ul Critically low 4.20-5.40 [facility] Comment on above: Performed By: #### C BC ####[facility] Mfyuutkgpw4478 [place] [phone]. Kalie Bess WBC 13.3 103/ul Critically high 4.0-11.0 [facility] Comment on above: Performed By: #### C BC ####[facility] Txzltfexvz6866 [place] [phone]. Kalie Bess CULTURE STERILE BODY FLUIDon 07-31-2022 CULTURE STERILE BODY FLUID Culture Observations: No growth at 72 hours. Normal [facility] Comment on above: Performed By: #### S TBFCX ####[facility] Felljuekip[address] [place], [place] [address]Dr. Kalie Bess CYTOLOGYon 07-31-2022 SENT TO REF LAB 07/31/22 Normal [facility] Comment on above: Performed By: #### C YTO ####[facility] Rgxgctital[address] [place], [place] [address]Dr. Kalie Bess ECHOCARDIO M/2D COMPLETEon 1 ECHOCARDIO M/2D COMPLETE Normal [facility] ER URINE PROFILEon Bilirubin Ql (U) Negative Normal NEGATIVE [facility] Comment on above: Performed By: #### U MICRO, ERUR ####[facility] Snyfycodqo98[address] [place], [place] [address]Dr. Kalie Bess Clarity (U) CLEAR Normal CLEAR [facility] Comment on above: Performed By: #### U MICRO, ERUR ####[facility] Qqifznnuzm397[address] [place], [place] [address]Dr. Kalie Bess Color (U) LT. YELLOW Normal YELLOW [facility] Comment on above: Performed By: #### U MICRO, ERUR ####[facility] Gmcmwdwbsc[address] [place], [place] [address]Dr. Kalie Bess ERUAHD A micrscopic examination will be performed if indicated. Normal [facility] Comment on above: Performed By: #### U MICRO, ERUR ####[facility] Wssat[address]kia[address] [place], [place] [address]Dr. Kalie Bess Glucose Ql (U) 100 mg/dl Abnormal NEGATIVE [facility] Comment on above: Performed By: #### U MICRO, ERUR ####[facility] Sgnfphhrjz359[address] [place], [place] [address]Dr. Kalie Bess Hemoglobin Ql (U) SMALL Abnormal NEGATIVE [facility] Comment on above: Performed By: #### U MICRO, ERUR ####[facility] Vjjiczjgrb[address] [place], [place] [address]Dr. Kalie Bess Ketones Ql (U) Negative Normal NEGATIVE [facility] Comment on above: Performed By: #### U MICRO, ERUR ####[facility] Tzyjaouukh26[address] [place] [address]Dr. Kalie Bess LEUKOCYTES Negative Normal NEGATIVE [facility] Comment on above: Performed By: #### U MICRO, ERUR ####[facility] Abjxkywaxn9[address] [place] [address]Dr. Kalie Bess Nitrite Ql (U) Negative Normal NEGATIVE [facility] Comment on above: Performed By: #### U MICRO, ERUR ####[facility] Yekdlocfkl04[address] [place] [address]Dr. Kalie Bess pH (U) 5.5 [pH] Normal 5-9 [facility] Comment on above: Performed By: #### U MICRO, ERUR ####[facility] Mevuaxecmq435[address] [place], [place] [address]Dr. Kalie Bess Protein (U) [Mass/Vol] 100 mg/dL Abnormal NEGATIVE/ TRACE [facility] Comment on above: Performed By: #### U MICRO, ERUR ####[facility] Dlyzbqicrc318[address] [place], [place] [address]Dr. Kalie Bess SPEC GRAVITY 1.015 Normal 1.005-<=1.025 [facility] Comment on above: Performed By: #### U MICRO, ERUR ####[facility] Ctltevrkvf[address] [place], [place] [address]Dr. Kalie Bess UR MICRO IND INDICATED Normal [facility] Comment on above: Performed By: #### U MICRO, ERUR ####[facility] Ogmoqataua[address] [place], [place] [address]Dr. Kalie Bess Urobilinogen Qn (U) 0.2 {Codi'U}/dL Normal 0.2 - 1. 0 [facility] Comment on above: Performed By: #### U MICRO, ERUR ####[facility] Gkjquahqfh764[address] [place], [place] [address]Dr. Kalie Bess GRAM STAINon 07-31-2022 COMMENTS NO ORGANISMS OBSERVED Normal [facility] Comment on above: Performed By: #### G STAIN ####[facility] Rntlbxvjfu3253 [place] [phone]. Kalie Bess DIPHTHEROIDS Normal [facility] Comment on above: Performed By: #### G STAIN ####[facility] Qnacfjqwoe9455 [place] [address]Dr. Kalie Bess EPITHELIALS Normal [facility] Comment on above: Performed By: #### G STAIN ####[facility] Jccukikgsb0541 [place] [address]Dr. Kalie Bess FUNGAL ELEMENTS Normal [facility] Comment on above: Performed By: #### G STAIN ####[facility] Ijpzcisgof5762 [place] [address]Dr. Kalie Bess GRAM NEG BACILLI Normal [facility] Comment on above: Performed By: #### G STAIN ####[facility] Purjsovmoa[address] [place], [place] [address]Dr. Kalie Bess GRAM NEG DIPPLOCOCCI Normal [facility] Comment on above: Performed By: #### G STAIN ####[facility] Carrindcrh[address] [place], [place] [address]Dr. Kalie Bess GRAM POS BACILLI Normal [facility] Comment on above: Performed By: #### G STAIN ####[facility] Qmjazuirzw6[address] [place], [place] [address]Dr. Kalie Bess GRAM POSITIVE COCCI Normal [facility] Comment on above: Performed By: #### G STAIN ####[facility] Aeptfljjix79[address] [place] [address]Dr. Kalie Bess GRAM STAIN SOURCE Pleural Fluid Normal [facility] Comment on above: Performed By: #### G STAIN ####[facility] Hfeyqqqmhz4349 [place] [address]Dr. Kalie Bess GS_DIPTH Normal [facility] Comment on above: Performed By: #### G STAIN ####[facility] Mytkdxokpo0587 [place] [address]Dr. Kalei Bess WBC FEW Normal [facility] Comment on above: Performed By: #### G STAIN ####[facility] Esskdwwjvs[address] [place], [place] [address]Dr. Shayyroxie Shahriar POINT OF CARE GLUCOSEon 100 Glucose [Mass/Vol] 314 mg/dL Critically high 74-106 [facility] Comment on above: Performed By: #### P OCGLUC ####[facility] Bukjsjdydu9[address] [place] [address]Dr. Kalie Bess Glucose [Mass/Vol] 190 mg/dL Critically high 74-106 [facility] Comment on above: Performed By: #### P OCGLUC ####[facility] Ifkkdpxnip3752 [place] [address]Dr. Shayyroxie Bess Glucose [Mass/Vol] 271 mg/dL Critically high 74-106 [facility] Comment on above: Performed By: #### P OCGLUC ####[facility] Qvpgcxcqim7443 [place] [address]Dr. Kalie Bess PROF CHEM 8 (BAS METB)on Anion gap [Moles/Vol] 8.1 mmol/L Normal [facility] Comment on above: Performed By: #### B MP ####[facility] Dbnqusdssl8563 [place] [address]Dr. Kalie Bess Calcium [Mass/Vol] 8.2 mg/dL Critically low 8.5-10.1 [facility] Comment on above: Performed By: #### B MP ####[facility] Cmykhoipgc9046 [place] [address]Dr. Kalie Bess Chloride [Moles/Vol] 102 mmol/L Normal 98-107 [facility] Comment on above: Performed By: #### B MP ####[facility] Wtnfcvyjbj3709 [place] [address]Dr. Kalie Bess CO2 [Moles/Vol] 32.2 mmol/L Critically high 21.0-32.0 [facility] Comment on above: Performed By: #### B MP ####[facility] Hfacpweoyk[address] [place], [place] [address]Dr. Kalie Bess Creatinine [Mass/Vol] 1.25 mg/dL Critically high 0.55-1.02 [facility] Comment on above: Performed By: #### B MP ####[facility] Kemfriyste94[address] [place] [phone]. Kalie Bess EGFR-AF TANZANIAN 55 mL/min/1.73m2 Critically low >=60 [facility] Comment on above: Performed By: #### B MP ####[facility] Csuvyqgncd0668 [place] [phone]. Kalie Bess EGFR-NON AF TANZANIAN 45 mL/min/1.73m2 Critically low >=60 [facility] Comment on above: Performed By: #### B MP ####[facility] Hmbdadcyet9877 [place] [address]Dr. Shyayroxie Shahriar Glucose [Mass/Vol] 208 mg/dL Critically high 74-106 T [facility] Comment on above: Performed By: #### B MP ####[facility] Vvtehzdxlc6598 [place] [address]Dr. Kalie Bess Potassium [Moles/Vol] 3.3 mmol/L Critically low 3.5-5.1 [facility] Comment on above: Performed By: #### B MP ####[facility] Axznusxira2671 [place] [address]Dr. Kalie Shahriar Sodium [Moles/Vol] 139 mmol/L Normal 136-145 [facility] Comment on above: Performed By: #### B MP ####[facility] Puiiuotbfb9924 [place] [address]Dr. Shayyroxie Shahriar Urea nitrogen [Mass/Vol] 23.0 mg/dL Critically high 7.0-18.0 [facility] Comment on above: Performed By: #### B MP ####[facility] Olefyokedy1605 [place] [address]Dr. Kalie Bess Urea nitrogen/Creatinine [Mass ratio] 18.4 mg/mg Normal [facility] Comment on above: Performed By: #### B MP ####[facility] Ynnjqoubcq6907 [place] [address]Dr. Shayyroxie Shahriar TROPONIN, HIGH SENSITIVITYon 07-31-2022 HSTROP 19.2 pg/mL Normal 4.0-51.3 [facility] Comment on above: Result Comment: CUT- OFF POINTS HAVE BEEN ESTABLISHED BASED ON THE FOURTH UNIVERSAL DEFINITIONS OF MYOCARDIALINFARCTION. THE UPPER REFERENCE LIMIT (URL) OF TROPONIN, DEFINED THE 99TH PERCENTILE OFcTnI DISTRIBUTION IN A REFERENCE POPULATION, HAS BEEN CONFIRMED THE DECISION THRESHOLDFOR OK DIAGNOSIS. Performed By: #### H STROPN ####[facility] Izyewvkluu[address] [place] [address]Dr. Kalie Bess URINE MICROSCOPIC ONLYon BACTERIA TRACE Abnormal NONE SEEN [facility] Comment on above: Performed By: #### U MICRO, ERUR ####[facility] Jyiirgfrmd0111 [place] [address]Dr. Kalie Bess Bacteria identified Cx Nom (U) NOT INDICATED Normal [facility] Comment on above: Performed By: #### U MICRO, ERUR ####[facility] Zwgvpxcdjg4688 [place] [address]Dr. Kalie Bess CAST NONE SEEN Normal NONE SEEN [facility] Comment on above: Performed By: #### U MICRO, ERUR ####[facility] Xekxldgznh4628 [place] [address]Dr. Kalie Bess Crystals LM Nom (Urine sed) NONE SEEN Normal NONE SEEN [facility] Comment on above: Performed By: #### U MICRO, ERUR ####[facility] Xjqpsagiei9069 [place] [address]Dr. Kalie Bess Epithelial cells LM Ql (Urine sed) NONE SEEN Normal NONE SEEN /RARE [facility] Comment on above: Performed By: #### U MICRO, ERUR ####[facility] Nnuuzpuglz034[address] [place], [place] [address]Dr. Kalie Bess MUCOUS NONE SEEN Normal NONE SEEN [facility] Comment on above: Performed By: #### U MICRO, ERUR ####[facility] Pnvhqbhweo33[address] [place], [place] [address]Dr. Kalie Bess RBC NONE SEEN Abnormal 0-2 [facility] Comment on above: Performed By: #### U MICRO, ERUR ####[facility] Uqwcsfhnmk[address] [place], [place] [address]Dr. Kalie Bess WBC NONE SEEN Normal NONE SEEN [facility] Comment on above: Performed By: #### U MICRO, ERUR ####[facility] Zgttltjpzp6825 [place] [phone]. Kalie Bess XR CHEST 1 Von 07-31-2022 XR CHEST 1 V Normal [facility] XR CHEST 1 V Normal [facility] ACETONE SERUMon 07-30-2022 ACETONE Negative Normal NEGATIVE [facility] Comment on above: Performed By: #### A CETON ####[facility] Rjcylvmvbl[address] [place], [place] [address]Dr. Kalie Bess BNPon 07-30-2022 Natriuretic peptide B (Bld) [Mass/Vol] 6846.0 pg/mL Critically high <=900.0 [facility] Comment on above: Performed By: #### L IPA, BNP, HSTROPN, CMP ####[facility] Srhmwoonnv210[address] [place], [place] [address]Dr. Kalie Bess CBC AUTO DIFFon 07-30-2022 BASO # 0.1 103/ul Normal 0.0-0.1 [facility] Comment on above: Performed By: #### C BC ####[facility] Cwacgvbzhj[address] [place], [place] [address]Dr. Kalie Bess Basophils/100 WBC (Bld) 0.6 % Normal 0.2-2.0 [facility] Comment on above: Performed By: #### C BC ####[facility] Aqxvkevxxf8073 [place] [address]Dr. Kalie Bess EO # 0.2 103/ul Normal 0.0-0.7 [facility] Comment on above: Performed By: #### C BC ####[facility] Rfyibczbjz0[address] [place], [place] [address]Dr. Kalie Bess Eosinophils/100 WBC (Bld) 1.3 % Normal 0.9-7.0 [facility] Comment on above: Performed By: #### C BC ####[facility] Ktsrvysosk[address] [place], [place] [address]Dr. Kalie Bess Erythrocyte distribution width (RBC) [Ratio] 13.9 % Normal 11.0-15.0 [facility] Comment on above: Performed By: #### C BC ####[facility] Xnbzbtzsua6569 [place] [address]DrCassie Bess Hematocrit (Bld) [Volume fraction] 34.9 % Critically low 36.0-48.0 [facility] Comment on above: Performed By: #### C BC ####[facility] Ymusckbmkv5331 [place] [address]DrCassie Bess Hemoglobin (Bld) [Mass/Vol] 11.2 g/dL Critically low 12.0-16.0 [facility] Comment on above: Performed By: #### C BC ####[facility] Vfcrtgntgg889[address] [place], [place] [address]DrCassie Bess IG # 0.24 10e3/ul Critically high 0.00-0.03 [facility] Comment on above: Performed By: #### C BC ####[facility] Wrsdrdjdlx1222[address] [place], [place] [address]DrCassie Bess IG % 1.6 % Critically high 0.0-0.5 [facility] Comment on above: Performed By: #### C BC ####[facility] Kruvofdory[address] [place], [place] [address]DrCassie Bess LYMPH # 4.0 103/ul Critically high 1.2-3.8 [facility] Comment on above: Performed By: #### C BC ####[facility] Ejxrzasnjz[address] [place], [place] [address]DrCassie Bess Lymphocytes/100 WBC (Bld) 25.8 % Normal 20.5-60.0 [facility] Comment on above: Performed By: #### C BC ####[facility] Kxzovjjsro57[address] [place], [place] [address]DrCassie Bess MANUAL DIFF REQ NO Normal [facility] Comment on above: Performed By: #### C BC ####[facility] Jgsikfpayo899[address] [place], [place] [address]DrCassie Bess MCH (RBC) [Entitic mass] 28.6 pg Normal 26.7-34.0 [facility] Comment on above: Performed By: #### C BC ####[facility] Alotzseaze3442 [place] [address]DrCassie Bess MCHC (RBC) [Mass/Vol] 32.1 g/dL Normal 29.9-35.2 [facility] Comment on above: Performed By: #### C BC ####[facility] Qqjpizucdw8737 [place] [address]DrCassie Bess MCV (RBC) [Entitic vol] 89.0 fL Normal 81.0-99.0 [facility] Comment on above: Performed By: #### C BC ####[facility] Isheatmzli39[address] [place], [place] [address]DrCassie Bess MONO # 1.2 103/ul Critically high 0.3-0.8 [facility] Comment on above: Performed By: #### C BC ####[facility] Rebblbmyvw8424[address] [place], [place] [address]DrCassie Bess Monocytes/100 WBC (Bld) 8.1 % Normal 1.7-12.0 [facility] Comment on above: Performed By: #### C BC ####[facility] Qcsoapyofg12[address] [place], [place] [address]DrCassie Bess NEUT # 9.6 103/ul Critically high 1.4-6.5 [facility] Comment on above: Performed By: #### C BC ####[facility] Wnrcrakckh9[address] [place], [place] [address]DrCassie Bess Neutrophils/100 WBC (Bld) 62.6 % Normal 43.0-75.0 [facility] Comment on above: Performed By: #### C BC ####[facility] Qvhhtefqlz750[address] [place], [place] [address]DrCassie Bess Platelet mean volume (Bld) [Entitic vol] 11.2 fL Normal 9.5-13.5 [facility] Comment on above: Performed By: #### C BC ####[facility] Wlzytpnxhd[address] [place], [place] [address]DrCassie Bess PLT 308 103/ul Normal 150-450 [facility] Comment on above: Performed By: #### C BC ####[facility] Sellkxnlxe7598 [place], [place] [address]Xp. Kalie Bess RBC 3.92 106/ul Critically low 4.20-5.40 [facility] Comment on above: Performed By: #### C BC ####[facility] Fulfeskkxb1844 [place], [place] [address]Ap. Kalie Bess WBC 15.4 103/ul Critically high 4.0-11.0 [facility] Comment on above: Performed By: #### C BC ####[facility] Itcejhqkrj3273 [place], [place] [address]Uh. Kalie Bess CT ABD/PELV W CONon 07-30-[address] ABD/PELV W CON Normal The [facility] CTA CHEST WO W CONon 022 CTA CHEST WO W CON Normal [facility] ([facility]on SARS-CoV-2 (COVID-19) RNA CIPRIANO+probe Ql (Unsp spec) Not detected Normal NOT DETECTED [facility] Comment on above: Result Comment: When diagnostic [...] for this test is supported by the Foreign Language Stenographer of Health and Human Service's declaration that [...] be used). Performed By: #### C VDTBH ####[facility] Trcxuwfzxm0466 [place] [address]Dr. Kalie Bess LACTATE/LACTIC ACIDon 2021 Lactate [Moles/Vol] 1.5 mmol/L Normal 0.4-1.9 [facility] Comment on above: Performed By: #### L ACT ####[facility] Gmoktgspjd5939 [place] [address]Dr. Kalie Bess LIPASEon 07-30-2022 Lipase [Catalytic activity/Vol] 152.0 U/L Normal 73.0-393.0 [facility] Comment on above: Performed By: #### L IPA, BNP, HSTROPN, CMP ####[facility] Sybatsoosy[address] [place], [place] [address]Dr. Kalie Bess PH VENOUS BLOODon 07-30-2022 PCO2 VENOUS 44.9 mmHg Normal 40.0-52.0 [facility] Comment on above: Performed By: #### P HVEN ####[facility] Pwvlxgykrz[address] [place], [place] [address]Dr. Kalie Bess pH VENOUS 7.451 Critically high 7.330-7.430 [facility] Comment on above: Performed By: #### P HVEN ####[facility] Qdcmgjfzvv50[address] [place], [place] [address]Dr. Kalie Bess PROF 14(COMP METB)on 022 Albumin [Mass/Vol] 2.3 g/dL Critically low 3.4-5.0 [facility] Comment on above: Performed By: #### L IPA, BNP, HSTROPN, CMP ####[facility] Vbpbjansfh[address] [place] [id number]. Kalie Bess Albumin/Globulin [Mass ratio] 0.5 {ratio} Normal [facility] Comment on above: Performed By: #### L IPA, BNP, HSTROPN, CMP ####[facility] [address] [place] [address]Dr. Kalie Bess ALP [Catalytic activity/Vol] 100 U/L Normal 46-116 [facility] Comment on above: Performed By: #### L IPA, BNP, HSTROPN, CMP ####[facility] [address] [place] [address]Dr. Kalie Bess ALT [Catalytic activity/Vol] 18 U/L Normal 14-59 [facility] Comment on above: Performed By: #### L IPA, BNP, HSTROPN, CMP ####[facility] [address] [place] [address]Dr. Kalie Bess Anion gap [Moles/Vol] 6.6 mmol/L Normal [facility] Comment on above: Performed By: #### L IPA, BNP, HSTROPN, CMP ####[facility] [address] [place] [address]Dr. Kalie Bess AST [Catalytic activity/Vol] 10 U/L Critically low 15-37 [facility] Comment on above: Performed By: #### L IPA, BNP, HSTROPN, CMP ####[facility] [address] [place] [address]Dr. Kalie Bess Bilirubin [Mass/Vol] 0.3 mg/dL Normal 0.2-1.0 [facility] Comment on above: Performed By: #### L IPA, BNP, HSTROPN, CMP ####[facility] [address] [place], [place] [address]Dr. Kalie Bess Calcium [Mass/Vol] 8.7 mg/dL Normal 8.5-10.1 [facility] Comment on above: Performed By: #### L IPA, BNP, HSTROPN, CMP ####[facility] [address] [place] [address]Dr. Kalie Bess Chloride [Moles/Vol] 99 mmol/L Normal 98-107 [facility] Comment on above: Performed By: #### L IPA, BNP, HSTROPN, CMP ####[facility] [address] [place] [address]Dr. Kalie Bess CO2 [Moles/Vol] 31.1 mmol/L Normal 21.0-32.0 The [facility] Comment on above: Performed By: #### L IPA, BNP, HSTROPN, CMP ####[facility] [address] [place] [address]Dr. Kalie Bess Creatinine [Mass/Vol] 1.34 mg/dL Critically high 0.55-1.02 [facility] Comment on above: Performed By: #### L IPA, BNP, HSTROPN, CMP ####[facility] [address] [place] [address]Dr. Kalie Bess EGFR-AF TANZANIAN 51 mL/min/1.73m2 Critically low >=60 [facility] Comment on above: Performed By: #### L IPA, BNP, HSTROPN, CMP ####[facility] [address] [place] [address]Dr. Kalie Bess EGFR-NON AF TANZANIAN 42 mL/min/1.73m2 Critically low >=60 [facility] Comment on above: Performed By: #### L IPA, BNP, HSTROPN, CMP ####[facility] [address] [place] [address]Dr. Kalie Bses Globulin (S) [Mass/Vol] 4.4 g/dL Normal [facility] Comment on above: Performed By: #### L IPA, BNP, HSTROPN, CMP ####[facility] [address] [place] [address]Dr. Kalie Bess Glucose [Mass/Vol] 226 mg/dL Critically high 74-106 T [facility] Comment on above: Performed By: #### L IPA, BNP, HSTROPN, CMP ####[facility] [address] [place] [address]Dr. Kalie Bess Potassium [Moles/Vol] 3.7 mmol/L Normal 3.5-5.1 [facility] Comment on above: Performed By: #### L IPA, BNP, HSTROPN, CMP ####[facility] [address] [place], [place] [address]Dr. Kalie Bess Protein [Mass/Vol] 6.7 g/dL Normal 6.4-8.2 The [facility] Comment on above: Performed By: #### L IPA, BNP, HSTROPN, CMP ####[facility] [address] [place] [address]Dr. Kalie Bess Sodium [Moles/Vol] 133 mmol/L Critically low 136-145 Th e [facility] Comment on above: Performed By: #### L IPA, BNP, HSTROPN, CMP ####[facility] [address] [place] [address]Dr. Kalie Bess Urea nitrogen [Mass/Vol] 23.0 mg/dL Critically high 7.0-18.0 [facility] Comment on above: Performed By: #### L IPA, BNP, HSTROPN, CMP ####[facility] [address] [place] [address]Dr. Kalie Bess Urea nitrogen/Creatinine [Mass ratio] 17.2 mg/mg Normal [facility] Comment on above: Performed By: #### L IPA, BNP, HSTROPN, CMP ####[facility] [address] [place], [place] [address]Dr. Kalie Bess PROTIMEon 07-30-2022 INR Coag (PPP) [Relative time] 1.08 {INR} Normal [facility] Comment on above: Performed By: #### P TT, PT ####[facility] [address] [place], [place] [address]Dr. Kalie Bess INR GUIDELINES SEE BELOW Normal [facility] Comment on above: Result Comment: GABRIELLA RED INR: 2.0 - 3.0 CONDITIONS NOT LISTED BELOW 2.5 - 3.5 FOR PROSTHETIC HEART VALVE REPLACEMENT 2.5 - 3.5 RECURRENT THROMBOSIS Performed By: #### P TT, PT ####[facility] [address] [place], [place] [address]Dr. Kalie Bess PT Coag (PPP) [Time] 11.6 s Normal 9.0-11.6 [facility] Comment on above: Performed By: #### P TT, PT ####[facility] [address] [place], [place] [address]Dr. Kalie Bess PTTon 07-30-2022 aPTT Coag (Bld) [Time] 28.0 s Normal 22.3-36.2 [facility] Comment on above: Performed By: #### P TT, PT ####[facility] [address] [place], [place] [address]Jm. Kalie Bess TROPONIN, HIGH SENSITIVITYon 07-30-2022 HSTROP 29.4 pg/mL Normal 4.0-51.3 [facility] Comment on above: Result Comment: CUT- OFF POINTS HAVE BEEN ESTABLISHED BASED ON THE [facility] UNIVERSAL DEFINITIONS OF MYOCARDIALINFARCTION. THE UPPER REFERENCE LIMIT (URL) OF TROPONIN, DEFINED THE 99TH PERCENTILE OFcTnI DISTRIBUTION IN A REFERENCE POPULATION, HAS BEEN CONFIRMED THE DECISION THRESHOLDFOR OK DIAGNOSIS. Performed By: #### H STROPN ####[facility] [address] [place] [id number]. Kalie Bess HSTROP 28.3 pg/mL Normal 4.0-51.3 [facility] Comment on above: Result Comment: CUT- OFF POINTS HAVE BEEN ESTABLISHED BASED ON THE FOURTH UNIVERSAL DEFINITIONS OF MYOCARDIALINFARCTION. THE UPPER REFERENCE LIMIT (URL) OF TROPONIN, DEFINED THE 99TH PERCENTILE OFcTnI DISTRIBUTION IN A REFERENCE POPULATION, HAS BEEN CONFIRMED THE DECISION THRESHOLDFOR OK DIAGNOSIS. Performed By: #### L IPA, BNP, HSTROPN, CMP ####[facility] [address] [place] [id number]. Kalie Bess Outside Recordson 07-25-2022 Outside Records [id number] D:127 Normal [facility] Physician Orderon 07-25-2022 Physician Order [id number] D:127 Normal [facility] Encounters Encounter Date Encounter Type Care Provider Facility Start: 11-10-2023 End: 11-10-2023 ambulatory RINA BENAVIDES Not Available Start: 04-30-2023 End: 04-30-2023 ambulatory Carolyn Ramsey Other [facility] Other Start: 04-30-2023 Telephone encounter Carolyn Ramsey [facility] Bus Inspector Start: 03-19-2023 End: 03-19-2023 ambulatory Imad Asaad Facility:[facility] Start: 03-18-2023 End: 03-18-2023 ambulatory Ayaan Deras Facility:[facility] Start: 03-11-2023 End: 03-11-2023 ambulatory Ayaan Deras Facility:[facility] Start: 02-12-2023 End: 02-13-[address] AYAAN [...] into Superior Vena Cava, Percutaneous Approach HIEU HONG . Start: 07-31-[address] eural Cavity, Percutaneous Approach HIEU HONG . Payers Date Payer Category Payer Self-pay 1970 Unknown [id number] 2.16.84 [id number] 1970 Unknown [id number] 2.16.84 [id number] 1971 Unknown [id number] 2.16.84 0.1.359528.3.579.2.593 1971 Unknown [id number] 2.16.84 0.1.343906.3.579.2.593 1971 Unknown [id number] 2.16.84 0.1.332505.3.579.2.593 1971 Unknown [id number] 2.16.84 0.1.169199.3.579.2.593 1971 Unknown [id number] 2.16.84 0.1.297746.3.579.2.593 1971 Unknown [id number] 2.16.84 0.1.811656.3.579.2.593 1971 Unknown [id number] 2.16.84 0.1.621824.3.579.2.593 1971 Unknown [id number] 2.16.84 0.1.158261.3.579.2.593 1971 Unknown [id number] 2.16.84 0.1.326832.3.579.2.593 1971 Unknown [id number] 2.16.84 0.1.062220.3.579.2.593 1971 Unknown [id number] 2.16.84 0.1.259614.3.579.2.593 1971 Unknown [id number] 2.16.84 0.1.270995.3.579.2.593 1971 Unknown [id number] 2.16.84 0.1.370908.3.579.2.1259 1959 Unknown [id number] Unknown [id number] 2.16.8 40.1.468961.3.579.2.531 Unknown [id number] 2.16.8 40.1.517550.3.579.2.531 Unknown [id number] 2.16.8 40.1.127794.3.579.2.531 Social History Date Type Detail Facility Sex Assigned At [facility] Other Evaluation note Note Date & Type Note Facility Evaluation note No Information [facility] Other History general Narrative - Reported Note [...] tissue infection in the left breast 11/2022 [facility] Other Summary Purpose Family History No Family History Records FoundNo Family History Records FoundNo Family History Records FoundNo Family History Records Found Advance Directives No Advanced Directives Records FoundNo Advanced Directives Records FoundNo Advanced Directives Records FoundNo Advanced Directives Records Found Additional Source Comments INFORMATION SOURCE (unrecogn ized section and content) DATE CREATED AUTHOR 07/29/2022 [facility] DATE CREATED AUTHOR AUTHOR'S ORGANIZ ATION [facility]/11[facility]2023 [facility] DATE CREATED AUTHOR AUTHOR'S ORGANIZ ATION 08/01/2023 [facility] DATE CREATED AUTHOR AUTHOR'S ORGANIZ ATION 11/11/2023 [facility] EPIC REASON FOR VISIT (unrecogniz ed section and [...] BE BASED ON THE PRIMARY CLINICAL RECORDS. [facility] [employer] [facility]. provides no warranty or guarantee of the accuracy or completeness of information in this document.
[2023-11-25 13:54] LABS: Anion Gap 9.1; BUN Creatinine Ratio 10.1; Calcium 8.3 mg/dL (8.5-10.1); Carbon Dioxide 28.6 mmol/L (21.0-32.0); Chloride 107 mmol/L (98-107); Estimated GFR (African America 19 (>=60); Estimated GFR (Non-African Ame 15 (>=60); Glucose 220 mg/dL (74-106); Potassium 4.7 mmol/L (3.5-5.1); Sodium 140 mmol/L (136-145)
== END 2023-11-25 12:45 | disposition home or self-care (01) ==
LOC: LAB 12:48
PROVIDERS: PCP Internal Medicine; Visit Provider Nurse Practitioner Family
DX: I50.32 Chronic diastolic (congestive) heart failure (principal)
CPT/HCPCS: 36415; 80048

== ENCOUNTER 2023-12-08 12:40 | Outpatient (OUT) | payer BC, SELFPAY ==
[2023-12-08 14:31] LABS: BUN Creatinine Ratio 13.3; Calcium 8.9 mg/dL (8.5-10.1); Chloride 108 mmol/L (98-107); Estimated GFR (African America 20 (>=60); Estimated GFR (Non-African Ame 17 (>=60); Glucose 195 mg/dL (74-106); Sodium 142 mmol/L (136-145)
== END 2023-12-08 12:41 | disposition home or self-care (01) ==
LOC: CARD 12:40
PROVIDERS: PCP Nurse Practitioner Family; Visit Provider Nurse Practitioner Family
DX: M79.604 Pain in right leg (principal); M79.605 Pain in left leg; R60.0 Localized edema; I10 Essential (primary) hypertension
CPT/HCPCS: 36415; 80048

== ENCOUNTER 2023-12-11 12:28 | Outpatient (OUT) | payer BC, SELFPAY ==
--- NOTE | 2023-12-11 12:29 | VEIN_ITS ---
Patient Name: DARYL CHAPARRO MR#: [id number] : 1970 Exam Date: 12/11/2023 Ordering Doctor: JOSE F KIRKLAND CNP RADIOLOGY REPORT PROCEDURE: VC EXT VENOUS REFLUX SILVINA LMTD COMPARISON: None. INDICATIONS: R60.0 Edema TECHNIQUE: Duplex imaging of the lower extremity to assess the deep and superficial venous system for the presence of deep or superficial venous incompetence and to document the location and severity of disease. The study includes evaluation of the great saphenous vein (GSV), anterior accessory saphenous vein (AASV) and small saphenous vein (SSV). Patient scanned in reverse Trendelenburg and standing. FINDINGS: RIGHT LOWER EXTREMITY: Saphenofemoral Junction Reflux: Yes 10.0mm 3.3 sec GSV: Diam (mm) Reflux/ Time (sec) Proximal Thigh 7.3 Yes 0.5 Mid Thigh 5.6 Yes 1.6 Distal Thigh 5.5 Yes 0.4 Prox Calf 5.0 Yes 0.4 Mid Calf 2.3 Yes 0.5 Saphenopopliteal Junction Reflux: 4.4mm No SSV: Proximal Calf 4.6 Yes 0.2 Mid Calf 2.5 Yes 0.2 AASV: Not present Proximal Thigh Mid Thigh Distal Thigh Thrombi: No acute or chronic thrombus. Compressibility: Normal. Flow: Minimal deep venous reflux. Preforator: Distal medial lower leg measures 3.4 mm with 0.6s reflux. Tech Note: Incompetent varicose vein proximal medial lower leg measures 4.0 mm with 0.5s reflux. Proximal medial thigh varicosity measures 4.0 mm with 0.5s reflux. Varicose vein mid medial lower leg measures 2.8 mm with 1.0s reflux. LEFT LOWER EXTREMITY: Saphenofemoral Junction Reflux: Yes 10.7 mm 0.8 sec GSV: Diam (mm) Reflux/Time (sec) Proximal Thigh 7.8 Yes 2.1 Mid Thigh 6.2 Yes 2.1 Distal Thigh 5.4 No Prox Calf 5.0 No Mid Calf 2.8 Yes 0.3 Saphenopopliteal Junction Relux: 4.4 mm Yes 0.3 SSV: Proximal Calf 4.0 Yes 0.3 Mid Calf 2.1 Yes 0.2 AASV: Not present Proximal Thigh Mid Thigh Distal Thigh Thrombi: No acute or chronic thrombus. Compressibility: Normal. Flow: Moderate deep venous reflux. Custodial Services Manager: Distal medial lower leg measures 2.2 mm with 0.4s reflux. Mid medial lower leg 2.1 mm with 1.8s reflux. Tech Note: Incompetent varicose vein proximal medial lower leg measures 4.3 mm with 0.5s reflux. Varicose vein mid posterior calf measures 2.3 mm with 2.7s reflux. Medial knee varicose vein measures 4.0 mm with 3.3s reflux. CONCLUSION: 1. Abnormally dilated and incompetent great saphenous veins bilaterally. Dictated by: Singh Pearson M.D. on 12/11/2023 at 13:40 Approved by: Singh Pearson M.D. on 12/11/2023 at 14:03
--- NOTE | 2023-12-11 12:29 | VEIN_ITS ---
Patient Name: DARYL CHAPARRO MR#: [id number] : 1970 Exam Date: 12/11/2023 Ordering Doctor: JOSE F KIRKLAND CNP RADIOLOGY REPORT PROCEDURE: VC FACILITY EST COMPREHENSIVE [facility]IN [facility] - OFFICE VISIT INITIAL COMPARISON: None. PROGRESS NOTES: [age] year old female who presents with a 5 year history of mild lower extremity heaviness, swelling, pain with recent sudden exacerbation resulting in marked diffuse edema which has been relieved with diuretics. The patient's left leg symptoms are worse than the right. There has been a progression of symptoms several weeks ago which is now nearly resolved. This increases with prolonged dependency. The patient describes an improvement with diuretics, rest, elevation of lower extremities. The patient denies any signs and symptoms to suggest arterial ischemia. The patient describes a family history diabetes; varicose veins on maternal side. The patient has drinking and smoking history of occasional alcohol consumption; Vaping. Patient has a past medical history significant for morbid obesity, diabetes, breast cancer. The patient denies a history of deep venous thrombus or pulmonary embolus. See separate history and physical for medication list. No prior treatment for varicose or spider veins. Current use of compression stockings. After review of nurse notes, history and physical exam I discussed at length the pathophysiology of venous hypertension and possible treatments, therapies and strategies available. We discussed at length the importance of elevating the lower extremities above the level of the heart, increased physical activity and compression stocking use. Ultrasound venous reflux study performed today was discussed at length with the patient. The report demonstrates abnormally dilated and incompetent great saphenous veins bilaterally, left greater than right. Associated incompetent branch saphenous varicosities bilaterally.. PHYSICAL EXAM: The right leg demonstrates no visible varicosities, a few scattered spider veins, no ulceration, mild edema, no skin discoloration. The left leg demonstrates no visible varicosities, a few spider veins, no ulceration, mild edema, no skin discoloration. Both thighs, legs and feet were symmetrically warm to the touch. Good posterior tibial and dorsalis pedis pulses were present bilaterally. VEIN/VC Facility EST Comprehensive IMPRESSION: 1. Mild-moderate bilateral lower extremity select venous insufficiency 2. Mild bilateral lower extremity varicose veins 3. Mild lower extremity subcutaneous edema 4. No flow significant arterial disease 5. CEAP: C3, EC, , NM PLAN: 1. Continued use of compression stockings 2. Elevated legs and increased physical activity symptomatic relief 3. Measure for proper size of compression stockings. 4. Patient does not desire to proceed with any treatment this time and will follow-up with us in the future as needed. Given the patient's relative lack of symptomatology, I think this course of action is reasonable. Nurse notes, history and physical were reviewed and confirmed, see attached forms. The nurse was present throughout the physical exam and consultation Dictated by: Singh Pearson M.D. on 12/11/2023 at 14:03 Approved by: Singh Pearson M.D. on 12/11/2023 at 14:11
--- OUTSIDE RECORDS SUMMARY | 2023-12-11 12:32 | XMS_ITS | CCD ---
Author Name Unknown Address [address] [place] [address] Organization [facility] Care Team Providers Care Wet Process Operator Name Role Phone TAMLYN ., HIEU Attending [...] Unavailable ZEFERINO, DR BARBOZA Primary Care Unavailable ART ., DR SOUTH Admitting Unavailable HU ., MR TEJADA Consulting Unavailable ART ., DR SOUTH Attending Unavailable ZEFERINO, DR BARBOZA Primary Care Unavailable BRYCE Matthews, DR ARMENDARIZ Attending Unavailable BRYCE ., DR ARMENDARIZ Admitting Unavailable SAMSA ., DORA Procedure Practitioner Unavailab saba Matthews, DR ARMENDARIZ Consulting Unavailable VNINY JACKSON V Consulting Unavailable BETHANY, DR KATALINA Mcdaniels Consulting Unavailable DEVIN, DR OPAL Bonilla Consulting Unavailable JOHNSON .DONAVAN Consulting Unavailabl e SAMSA ., DORA Consulting Unavailable JUNIOR ., HAILEY Consulting Unavailable DIXIE KHAN Consulting Unavailable LILIANA DICKENS Consulting Unavailable ZEFERINO, DR BARBOZA Consulting Unavailable ZEFERINO, DR BARBOZA Attending Unavailable ZEFERINO, DR BARBOZA Admitting Unavailable ZEFERINO, DR BARBOZA Primary Care Unavailable TAMLYN ., HIEU Procedure Practitioner Unavailab saba DERAS, DR BARBOZA Primary Care Unavailable FAWWAD, BEAVERS H Attending Unavailable DEBBIEWWAKarthik, BEAVERS H Admitting Unavailable SOFÍAS ., DR LILIANA Vaughn Consulting Unavaila ble BRYCE ., DR ARMENDARIZ Consulting Unavailable FAWWAD, BEAVERS H Procedure Practitioner UnavailVINNY Earl V Consulting Unavailable BETHANY, DR KATALINA Mcdaniels Consulting Unavailable PAY ., DR ODEN Consulting Unavailable GRECHNY ., DONAVAN SCHWAB Consulting Unavailnato WONG, H Consulting Unavailable SATURNINO GRUBER Consulting Unavailable NAMITA II, RAIZA Consulting Unavailable TAMLYN ., HIEU Consulting Unavailable MIKAYLAEKEV Consulting Unavailable TAMLYEren ., HIEU Admitting Unavailable ZEFERINO, DR BARBOZA Primary Care Unavailable TAMLYEren ., HIEU Attending Unavailable FRANCIALYEren ., HIEU Attending Unavailable ZEFERINO, DR BARBOZA [...] Imad Attending Unavailable RINA BENAVIDES Attending Unavailable AYAAN DERAS Attending Unavailable JOSE F KIRKLAND Attending Unavailable Allergies Allergy Classification Reported Allergen(s) Allergy Type Date of Onset Reaction(s) Facility (1 source) Latex Drug allergy (disorder) [facility] Repository (1 source) Latex rubber gloves Drug allergy Unknown [employer] Other (1 source) Latex Drug allergy (disorder) 03-19-2023 [facility] Repository Medications Current Medications Medication Drug Class(es) [...] Once a day Active polyethylene glycol 3350 [id number] mg / potassium chloride 2970 mg / sodium bicarbonate 6740 mg / sodium chloride 5860 mg / sodium sulfate 17400 mg powder for oral solution (1 source) [...] Onset: 01-01-2023 Episodic Congestive heart failure; nonhypertensive (4 sources) Chronic diastolic (congestive) heart failure; Translations: [...] Chronic Hypertension with complications and secondary hypertension (6 sources) Hypertensive heart and chronic kidney disease with heart failure and stage 1 through stage 4 chronic kidney disease, or unspecified chronic kidney disease; Translations: [Hypertensive urgency] Onset: 07-30-2022 Chronic Mood disorders (1 source) Major depressive disorder, single episode, unspecified; Translations: [JOSÉ DEPRESS D/O SINGLE EPIS UNS] Onset: 08-12-2022 Chronic Mood disorders (1 source) Mood disorders; Translations: [DEPRESSION UNSPECIFIED] Onset: 12-03-2022 Other connective tissue disease (2 sources) Pain in right leg; Translations: [Pain in right leg] Onset: 11-25-2023 Episodic Other connective tissue disease (2 sources) Pain in left leg; Translations: [Pain in left leg] Onset: 11-25-2023 Episodic Other gastrointestinal disorders (4 sources) Diarrhea, unspecified; [...] screening for malignant neoplasm of colon] Episodic Residual codes; unclassified (2 sources) Localized edema; Translations: [Localized edema] Onset: 11-25-2023 Episodic Skin and subcutaneous tissue infections (1 [...] Onset: 12-03-2022 Episodic Other aftercare (1 source) 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 Follow-up with nephrology as planned and we can see if they are okay with her resuming lisinopril and Farxiga. Thank you! [facility] 36on 12-08-2023 36 Please see when she plans to have BMP done. Thank you [facility] 36on 12-03-2023 36 Did she get the follow-up BMP? [facility] Orders Onlyon 11-26-2023 Orders Only [id number] Sd Roque Chad 1970 F Date Provider Department Center 11/26/2023 Milton-RAJENDRA FREDERICK MEGHAN Barry Family History Problem Relation Age of Onset COPD Mother Heart failure Mother Heart attack Mother's Brother Family Status - Relation Status Age at Mother Mother's Brother [facility] 36on 11-25-2023 36 Please let her know her labs yesterday showed her kidney function has worsened. -Recommend we reduce her lasix to 40mg daily. -Hold farxiga as this medication is filtered by the kidneys, ask PCP if he wants her to adjust her insulin while this is held and ask them to call patient. -Hold lisinopril and replace with amlodipine 5mg daily for her BP. -Follow-up BMP on 11/30/23. -Forward labs to nephrology and see if they can see her sooner than later. Thank you! [facility] 37on 11-25-2023 37 *Will switch metopro lol for carvedilol 6.25mg twice daily *Have follow-up labs drawn *Establish care with nephrology [facility] Office Visiton 11-25-2023 Follow-up visit [id number] KofiSd solano rosette Bonilla 1970 F Date Provider Department Center 11/25/2023 Richar-JOSE F KIRKLAND MEGHAN Barry Family History Problem Relation Age of Onset COPD Mother Heart failure Mother Heart attack Mother's Brother Family Status - Relation Status Age at Mother Mother's Brother Level of Service:10837 ND OFFICE/OUTPATIENT ESTABLISHED MOD MDM 30 MIN [facility] Telephoneon 11-25-2023 Telephone [id number] Sd Roque 1970 F Date Provider Department Center 11/25/2023 JOSE F DILLARD [facility] Family History Problem Relation Age of Onset COPD Mother Heart failure Mother Heart attack Mother's Brother Family Status - Relation Status Age at Mother Mother's Brother Normal [facility] Glucose Poct Glucometerson 0 03-19-2023 Commemt1 Glu2: Cleaned Meter Normal [facility] Comment on above: Result Comment: PERF ORMED BY: [place] [address] PATHOLOGIST SAWDUST MACHINE OPERATOR PAT NORWOOD M.D. Performed By: #### C ELIAC #### [facility] , #### TSH3, ESR, CRP #### [facility] [address] [place] [address] Glucose [Mass/Vol] 93 mg/dL Normal [facility] Comment on above: Result Comment: [facility] Glucose Reference Range is dependent on time and content of last meal. Glucose of more than 200 mg/dL in a nonstressed, ambulatory subject supports the diagnosis of Diabetes Mellitus. Performed By: #### C ELIAC #### [facility] , #### TSH3, ESR, CRP #### [facility] [address] [place] [address] Christiano 03-19-2023 L --- Specimen: [id number] Received: 03/19/23 Status: CORRY Alma Delia Num: [id number] Spec Type: Surgical Subm Dr: Carolyn Ramsey MD Tissues: A Colon Biopsy (RANDOM COLON BX) Procedures: HE/2, Gross/Micro L4 Age/ Patient Sex Location Account Attending Physician Sourav Roque 53/F [id number] Carolyn Ramsey MD SPEC NUM: [id number] RECD: 03/19/23 STATUS: CORRY SALAZAR NUM: [id number] MARIANNA: 03/19/23- [facility] DR: Carolyn Ramsey MD ENTERED: 03/19/23 [facility] DR: MELLISSA TYPE: Surgical DEPT: S ORDERED: [...] microscopic examination confirms the diagnosis. CPT Codes 68615 Specimen: [id number] Received: 03/19/23 Status: CORRY Alma Delia Num: [id number] Spec Type: Surgical Subm Dr: Carolyn Ramsey MD Tissues: A Colon Biopsy (RANDOM COLON BX) Procedures: Nito ROMERO/Himanshu L4 Patient: Sourav Roque [id number] (Continued) Signed (signature on file) Kelsea Sullivan MD 03/20/231034 [facility] Calprotectin, Fecalon 2022 Calprotectin, Fecal 6 Normal 0-120 [facility] Comment on above: Order Comment: Reaso n for Exam Diarrhea Result Comment: Conc entration Interpretation Follow-Up < 5 - 50 ug/g Normal None >50 -120 ug/g Borderline Re-evaluate in 4-6 weeks >120 ug/g Abnormal Repeat as clinically indicated Performed at: [facility] [address] [id number] City Manager: Mary Sung MD, Phone: [phone] PERFORMED BY: [place] [address] PATHOLOGIST SAWDUST MACHINE OPERATOR PAT NORWOOD M.D. Performed By: #### C ALPROTECT, OPEXAM, ELASTASE STOOL #### [facility] , #### CDT, CUSTOOL #### [facility] [address] [place] [address] Clostridium Difficileon 02-24 Clostridium Difficile Positive Normal Negative [facility] Comment on above: Order Comment: Reaso n for Exam Diarrhea Result Comment: Test ing performed by RT-PCR PERFORMED BY: [place] [address] PATHOLOGIST SAWDUST MACHINE OPERATOR PAT NORWOOD M.D. Performed By: #### C ALPROTECT, OPEXAM, ELASTASE STOOL #### [facility] , #### CDT, CUSTOOL #### [facility] [address] [place] [address] OVA AND PARASITEon 3 OVA AND PARASITE Reason for Exam Diarrhea [...] possibility of a parasitic infection. Performed at: [facility] [address] [id number] City Manager: Louis Hansen PhD, Phone: [phone] PERFORMED BY: [address] [place] [address] PATHOLOGIST SAWDUST MACHINE OPERATOR PAT NORWOOD M.D. [facility] Comment on above: Performed By: #### C ALPROTECT, OPEXAM, ELASTASE STOOL #### [facility] , #### CDT, CUSTOOL #### [address] Pancreatic Elastase, Stoolon 03-18-2023 Pancreatic Elastase, Stool >500 Normal >200 [facility] Comment on above: Order Comment: Reaso n for Exam Diarrhea Result Comment: Resu lt Units: ug Elast./g Severe Pancreatic Insufficiency: <100 Moderate Pancreatic Insufficiency: 100 - 200 Normal: >200 Performed at: [address] [id number] City Manager: Mary Sung MD, Phone: [phone] Performed By: #### C ALPROTECT, OPEXAM, ELASTASE STOOL #### [facility] , #### CDT, CUSTOOL #### [address] Stool Cultureon 03-18-2023 Stool culture Reason [...] or E. coli 0157:H7 Isolated PERFORMED BY: [address] [place] [address] PATHOLOGIST SAWDUST MACHINE OPERATOR PAT NORWOOD M.D. [facility] Comment on above: Performed By: #### C ALPROTECT, OPEXAM, ELASTASE STOOL #### [facility] , #### CDT, CUSTOOL #### [facility] [address] [place] [address] [place] C-Reactive Proteinon 023 C-Reactive Protein 1.0 mg/dL High 0.0-0.5 [facility] Comment on above: Order Comment: Reaso n for Exam Diarrhea Performed By: #### C ELIAC #### [facility] , #### TSH3, ESR, CRP #### [facility] [address] [place] [address] Celiacon 03-11-2023 Deamidated Gliadin Abs, IgA 9 Normal 0-19 [facility] Comment on above: Order Comment: Reaso n for Exam Diarrhea Result Comment: Nega tive 0 - 19 Weak Positive 20 - 30 Moderate to Strong Positive >30 Performed By: #### C ELIAC #### [facility] , #### TSH3, ESR, CRP #### [facility] [address] [place] [address] Deamidated Gliadin Abs, IgG 3 Normal 0-19 [facility] Comment on above: Order Comment: Reaso n for Exam Diarrhea Result Comment: Nega tive 0 - 19 Weak Positive 20 - 30 Moderate to Strong Positive >30 Performed By: #### C ELIAC #### [facility] , #### TSH3, ESR, CRP #### [facility] [address] [place] [address] [place] Endomysial Antibody IgA Negative Normal Negative [facility] Comment on above: Order Comment: Reaso n for Exam Diarrhea Performed By: #### C ELIAC #### [facility] , #### TSH3, ESR, CRP #### [facility] [address] [place] [address] [place] Immunoglobulin A, Qn, Serum 267 mg/dL Normal 87-352 [facility] Comment on above: Order Comment: Reaso n for Exam Diarrhea Result Comment: Perf ormed at: - [facility] [address] [id number] City Manager: Louis Hansen PhD, Phone: [phone] PERFORMED BY: [place] [address] PATHOLOGIST SAWDUST MACHINE OPERATOR PAT NORWOOD M.D. Performed By: #### C ELIAC #### [facility] , #### TSH3, ESR, CRP #### [address] T-Transglutaminase (tTG) IgA <2 Normal 0-3 [facility] Comment on above: Order Comment: Reaso n for Exam Diarrhea Result Comment: Nega tive 0 - 3 Weak Positive 4 - 10 Positive >10 Tissue Transglutaminase (tTG) has been identified as the endomysial antigen. Studies have demonstr- ated that endomysial IgA antibodies have over 99% specificity for gluten sensitive enteropathy. Performed By: #### C ELIAC #### [facility] , #### TSH3, ESR, CRP #### [address] T-Transglutaminase (tTG) IgG <2 Normal 0-5 [facility] Comment on above: Order Comment: Reaso n for Exam Diarrhea Result Comment: Nega tive 0 - 5 Weak Positive 6 - 9 Positive >9 Performed By: #### C ELIAC #### [facility] , #### TSH3, ESR, CRP #### [address] Erythrocyte Sedimentation Ra jose 03-11-2023 ESR (Bld) [Velocity] 98 mm/h High 0-29 [facility] Comment on above: Order Comment: Reaso n for Exam Diarrhea Result Comment: PERF ORMED BY: [place] [address] PATHOLOGIST SAWDUST MACHINE OPERATOR PAT NOROWOD M.D. Performed By: #### C ELIAC #### [facility] , #### TSH3, ESR, CRP #### [address] [place] [address] [place] Thyroid Stimulating Hormoneo n 03-11-2023 TSH Qn 0.34 m[IU]/L Low 0.45-5.33 [facility] Comment on above: Order Comment: Reaso n for Exam Diarrhea Result Comment: PERF ORMED BY: [place] [address] PATHOLOGIST SAWDUST MACHINE OPERATOR PAT NORWOOD M.D. Performed By: #### C ELIAC #### [facility] , #### TSH3, ESR, CRP #### [facility] [address] [place] [address] ACID FAST SMEAR AND CXon Acid Fast Culture Negative Normal [facility] Comment on above: Result Comment: No a junior fast bacilli isolated after 6 weeks. Performed By: #### A FB ####[facility] [address] [place], [place] [address]Dr. Kalie Bess Acid Fast Smear Negative Normal [facility] Comment on above: Performed By: #### A FB ####[facility] [address] [place], [place] [address]Dr. Kalie Bess [employer] Specimen Processing Direct Inoculation Normal [facility] Comment on above: Performed By: #### A FB ####[facility] I[address] [place], [place] [address]Dr. Kalie Bess PRBC LEUKOREDUCEDon 12-31-19 23 PRBC LEUKOREDUCED Normal [facility] Comment on above: Performed By: #### P RBC ####[facility] [address] [place], [place] [address]Dr. Kalie Bess FUNGAL CULTUREon 12-29-2022 Fungus (Mycology) Culture Final report Normal [facility] Comment on above: Performed By: #### C XFUN ####[facility] [address] [place], [place] [address]Dr. Kalie Bess Fungus Stain Final report Normal [facility] Comment on above: Performed By: #### C XFUN ####[facility] [address] [place], [place] [address]Dr. Kalie Bess Result 1 Comment Normal [facility] Comment on above: Result Comment: GILMA/ Calcofluor preparation: no fungus observed. Performed By: #### C XFUN ####[facility] [address] [place], [place] [address]Dr. Shayyroxie Bess Result Comment: No y east or mold isolated after 4 weeks. C. DIFF PCRon 12-26-2022 C. DIFFICILE PCR Negative Normal NEGATIVE [facility] Comment on above: Performed By: #### C DIFPOC ####[facility] [address] [place], [place] [address]Dr. Kalie Bess CBC AUTO DIFFon 11-30-2022 BASO # 0.1 103/ul Normal 0.0-0.1 [facility] Comment on above: Performed By: #### C BC ####[facility] [address] [place], [place] [address]Dr. Kalie Bess Basophils/100 WBC (Bld) 0.4 % Normal 0.2-2.0 [facility] Comment on above: Performed By: #### C BC ####[facility] [address] [place], [place] [address]Dr. Kalie Bess EO # 0.4 103/ul Normal 0.0-0.7 [facility] Comment on above: Performed By: #### C BC ####[facility] [address] [place], [place] [address]Dr. Kalie Bess Eosinophils/100 WBC (Bld) 2.5 % Normal 0.9-7.0 [facility] Comment on above: Performed By: #### C BC ####[facility] [address] [place], [place] [address]Dr. Kalie Bess Erythrocyte distribution width (RBC) [Ratio] 14.1 % Normal 11.0-15.0 [facility] Comment on above: Performed By: #### C BC ####[facility] Ir[address] [place], [place] [address]Dr. Kalie Bess Hematocrit (Bld) [Volume fraction] 24.3 % Critically low 36.0-48.0 [facility] Comment on above: Performed By: #### C BC ####[facility] [address] [place] [id number]. Kalie Bess Hemoglobin (Bld) [Mass/Vol] 7.3 g/dL Critically low 12.0-16.0 [facility] Comment on above: Performed By: #### C BC ####[facility] [address] [place] [address]Dr. Kalie Bess IG # 0.29 10e3/ul Critically high 0.00-0.03 [facility] Comment on above: Performed By: #### C BC ####[facility] [address] [place] [address]Dr. Kalie Bess IG % 1.9 % Critically high 0.0-0.5 [facility] Comment on above: Performed By: #### C BC ####[facility] Et[address] [place], [place] [address]Dr. Kalie Bess LYMPH # 3.6 103/ul Normal 1.2-3.8 [facility] Comment on above: Performed By: #### C BC ####[facility] [address] [place] [address]Dr. Kalie Bess Lymphocytes/100 WBC (Bld) 23.1 % Normal 20.5-60.0 [facility] Comment on above: Performed By: #### C BC ####[facility] [address] [place] [address]Dr. Kalie Bess MANUAL DIFF REQ NO Normal [facility] Comment on above: Performed By: #### C BC ####[facility] [address]kg[address] [place] [id number]. Kalie Bess MCH (RBC) [Entitic mass] 28.9 pg Normal 26.7-34.0 [facility] Comment on above: Performed By: #### C BC ####[facility] [address] [place] [address]Dr. Kalie Bess MCHC (RBC) [Mass/Vol] 30.0 g/dL Normal 29.9-35.2 [facility] Comment on above: Performed By: #### C BC ####[facility] [address] [place] [address]Dr. Kalie Bess MCV (RBC) [Entitic vol] 96.0 fL Normal 81.0-99.0 [facility] Comment on above: Performed By: #### C BC ####[facility] [address] [place] [address]Dr. Kalie Bess MONO # 0.8 103/ul Normal 0.3-0.8 [facility] Comment on above: Performed By: #### C BC ####[facility] [address]ef[address] [place] [address]Dr. Kalie Shahriar Monocytes/100 WBC (Bld) 5.0 % Normal 1.7-12.0 [facility] Comment on above: Performed By: #### C BC ####[facility] [address] [place], [place] [address]Dr. Kalie Bess NEUT # 10.5 103/ul Critically high 1.4-6.5 [facility] Comment on above: Performed By: #### C BC ####[facility] [address] [place], [place] [address]Dr. Kalie Shahriar Neutrophils/100 WBC (Bld) 67.1 % Normal 43.0-75.0 [facility] Comment on above: Performed By: #### C BC ####[facility] [address] [place], [place] [address]Dr. Shayyroxie Bess Platelet mean volume (Bld) [Entitic vol] 10.8 fL Normal 9.5-13.5 [facility] Comment on above: Performed By: #### C BC ####[facility] Fr[address]zyqsnt[address] [place] [address]Dr. Kalie Shahriar PLT 272 103/ul Normal 150-450 [facility] Comment on above: Performed By: #### C BC ####[facility] S[address] [place] [address]Dr. Kalie Bess RBC 2.53 106/ul Critically low 4.20-5.40 [facility] Comment on above: Performed By: #### C BC ####[facility] [address] [place] [address]Dr. Kalie Bess WBC 15.7 103/ul Critically high 4.0-11.0 [facility] Comment on above: Performed By: #### C BC ####[facility] Z[address]axkvchs[address] [place] [address]Dr. Kalie Bess CRPon 11-30-2022 CRP 4.9 mg/dL Critically high <=1.0 [facility] Comment on above: Performed By: #### C RP, CMP ####[facility] Mvphclaanl[address] [place] [address]Dr. Kalie Bess POINT OF CARE GLUCOSEon Glucose [Mass/Vol] 295 mg/dL Critically high 74-[address] [facility] Comment on above: Performed By: #### P OCGLUC ####[facility] [address]rs[address]vioj[address] [place] [address]Dr. Kalie Bess Glucose [Mass/Vol] 166 mg/dL Critically high 74-[address] [facility] Comment on above: Performed By: #### P OCGLUC ####[facility] Ex[address]az[address] [place] [address]Dr. Kalie Bess PROF 14(COMP METB)on 023 Albumin [Mass/Vol] 1.6 g/dL Critically low 3.4-5.0 [facility] Comment on above: Performed By: #### C RP, CMP ####[facility] [address] [place] [address]Dr. Kalie Bess Albumin/Globulin [Mass ratio] 0.4 {ratio} Normal [facility] Comment on above: Performed By: #### C RP, CMP ####[facility] [address] [place], [place] [address]Dr. Kalie Bess ALP [Catalytic activity/Vol] 115 U/L Normal 46-116 [facility] Comment on above: Performed By: #### C RP, CMP ####[facility] Pjf[address] [place] [address]Dr. Kalie Bess ALT [Catalytic activity/Vol] 21 U/L Normal 14-59 [facility] Comment on above: Performed By: #### C RP, CMP ####[facility] [address] [place], [place] [address]Dr. Kalie Bess Anion gap [Moles/Vol] 10.2 mmol/L Normal [facility] Comment on above: Performed By: #### C RP, CMP ####[facility] [address] [place], [place] [address]Dr. Kalie Bess AST [Catalytic activity/Vol] 15 U/L Normal 15-37 [facility] Comment on above: Performed By: #### C RP, CMP ####[facility] Wjctjdqvgm[address] [place], [place] [address]Dr. Kalie Bess Bilirubin [Mass/Vol] 0.1 mg/dL Critically low 0.2-1.0 [facility] Comment on above: Performed By: #### C RP, CMP ####[facility] Qcxlzxpgie99[address] [place], [place] [address]Dr. Kalie Bess Calcium [Mass/Vol] 8.1 mg/dL Critically low 8.5-10.1 Th [facility] Comment on above: Performed By: #### C RP, CMP ####[facility] Hulncgnitr6[address] [place], [place] [address]Dr. Kalie Bess Chloride [Moles/Vol] 104 mmol/L Normal 98-107 [facility] Comment on above: Performed By: #### C RP, CMP ####[facility] Seuftyuzuo8[address] [place], [place] [address]Dr. Kalie Bess CO2 [Moles/Vol] 26.1 mmol/L Normal 21.0-32.0 [facility] Comment on above: Performed By: #### C RP, CMP ####[facility] Zvyekosvhf23[address] [place], [place] [address]Dr. Kalie Bess Creatinine [Mass/Vol] 1.88 mg/dL Critically high 0.55-1.02 [facility] Comment on above: Performed By: #### C RP, CMP ####[facility] Shorirobof[address] [place] [address]Dr. Kalie Bess EGFR-AF INDIAN 34 mL/min/1.73m2 Critically low >=60 [facility] Comment on above: Performed By: #### C RP, CMP ####[facility] Ngjtrpmidw1724[address] [place], [place] [address]Dr. Kalie Bess EGFR-NON AF INDIAN 28 mL/min/1.73m2 Critically low >=60 [facility] Comment on above: Performed By: #### C RP, CMP ####[facility] Igxiyqxcac1253[address] [place], [place] [address]Dr. Kalie Bess Globulin (S) [Mass/Vol] 4.5 g/dL Normal [facility] Comment on above: Performed By: #### C RP, CMP ####[facility] Puznrybapv89[address] [place], [place] [address]Dr. Kalie Bess Glucose [Mass/Vol] 171 mg/dL Critically high 74-[address] [facility] Comment on above: Performed By: #### C RP, CMP ####[facility] Obakuvrpyv3465[address] [place], [place] [address]Dr. Kalie Bess Potassium [Moles/Vol] 4.3 mmol/L Normal 3.5-5.1 [facility] Comment on above: Performed By: #### C RP, CMP ####[facility] Fhuseufcvj7[address] [place], [place] [address]Dr. Kalie Bess Protein [Mass/Vol] 6.1 g/dL Critically low 6.4-8.2 [facility] Comment on above: Performed By: #### C RP, CMP ####[facility] Xivivbejmh80[address] [place] [address]Dr. Kalie Bess Sodium [Moles/Vol] 136 mmol/L Normal 136-145 [facility] Comment on above: Performed By: #### C RP, CMP ####[facility] Kxxfloyuqi0463[address] [place], [place] [address]Dr. Kalie Bess Urea nitrogen [Mass/Vol] 17.0 mg/dL Normal 7.0-18.0 [facility] Comment on above: Performed By: #### C RP, CMP ####[facility] Pxupwupdve5643 [place] [address]Dr. Kalie Bess Urea nitrogen/Creatinine [Mass ratio] 9.0 mg/mg Normal [facility] Comment on above: Performed By: #### C RP, CMP ####[facility] Sgfsgjwwkx4437 [place] [address]Dr. Kalie Shahriar SED RATE WESTERGRENon 2022 SED RATE 77 mm/hr Critically high <=30 [facility] Comment on above: Performed By: #### S EDR ####[facility] Onqsfzrssm7034[address] [place], [place] [address]Dr. Kalie Shahriar CBC AUTO DIFFon 11-29-2022 BASO # 0.1 103/ul Normal 0.0-0.1 [facility] Comment on above: Performed By: #### C BC ####[facility] Xvpswsxypb1298[address] [place], [place] [address]Dr. Shayyroxie Bess Basophils/100 WBC (Bld) 0.3 % Normal 0.2-2.0 [facility] Comment on above: Performed By: #### C BC ####[facility] Lpqawmdysv[address] [place], [place] [address]Dr. Kalie Shahriar EO # 0.4 103/ul Normal 0.0-0.7 [facility] Comment on above: Performed By: #### C BC ####[facility] Jywtvgslor2158[address] [place], [place] [address]Dr. Kalie Shahriar Eosinophils/100 WBC (Bld) 2.3 % Normal 0.9-7.0 [facility] Comment on above: Performed By: #### C BC ####[facility] Ncfxsuqzug0763[address] [place], [place] [address]Dr. Kalie Bess Erythrocyte distribution width (RBC) [Ratio] 14.0 % Normal 11.0-15.0 [facility] Comment on above: Performed By: #### C BC ####[facility] Epcbipklkr93[address] [place], [place] [address]Dr. Kalie Shahriar Hematocrit (Bld) [Volume fraction] 24.7 % Critically low 36.0-48.0 [facility] Comment on above: Performed By: #### C BC ####[facility] Hscygbcxkc9098 [place] [address]DrCassie Kalie Bess Hemoglobin (Bld) [Mass/Vol] 7.5 g/dL Critically low 12.0-16.0 [facility] Comment on above: Performed By: #### C BC ####[facility] Uelqusiopy1796 [place] [address]DrCassie Kalie Bess IG # 0.37 10e3/ul Critically high 0.00-0.03 [facility] Comment on above: Performed By: #### C BC ####[facility] Tyipjhjszp0882 [place] [address]DrCassie Kalie Bess IG % 2.1 % Critically high 0.0-0.5 [facility] Comment on above: Performed By: #### C BC ####[facility] Xbknoyzxwg9197 [place] [address]DrCassie Kalie Shahriar LYMPH # 3.3 103/ul Normal 1.2-3.8 [facility] Comment on above: Performed By: #### C BC ####[facility] Hvbhavqerr0475 [place] [address]DrCassie Kalie Shahriar Lymphocytes/100 WBC (Bld) 18.8 % Critically low 20.5-60.0 [facility] Comment on above: Performed By: #### C BC ####[facility] Jhtrqpvmxk58[address] [place] [address]DrCassie Kalie Shahriar MANUAL DIFF REQ NO Normal [facility] Comment on above: Performed By: #### C BC ####[facility] Oezkuzaxuu5514 [place] [address]DrCassie Kalie Shahriar MCH (RBC) [Entitic mass] 28.8 pg Normal 26.7-34.0 [facility] Comment on above: Performed By: #### C BC ####[facility] Tfjkytmhfq5804 [place] [address]DrCassie Kalie Shahriar MCHC (RBC) [Mass/Vol] 30.4 g/dL Normal 29.9-35.2 [facility] Comment on above: Performed By: #### C BC ####[facility] Ftkqoqpvlp3459 [place] [address]DrCassie Kalie Shahriar MCV (RBC) [Entitic vol] 95.0 fL Normal 81.0-99.0 [facility] Comment on above: Performed By: #### C BC ####[facility] Tijstynmfn9415 [place] [address]DrCassie Kalie Shahriar MONO # 0.9 103/ul Critically high 0.3-0.8 [facility] Comment on above: Performed By: #### C BC ####[facility] Ofqgwvcvfm0187 [place] [address]DrCassie Bess Monocytes/100 WBC (Bld) 5.1 % Normal 1.7-12.0 [facility] Comment on above: Performed By: #### C BC ####[facility] Rnuiztsdni2086 [place] [address]Dr. Kalie Shahriar NEUT # 12.3 103/ul Critically high 1.4-6.5 [facility] Comment on above: Performed By: #### C BC ####[facility] Oucvuuyvvw029[address] [place] [address]Dr. Shayyroxie Bess Neutrophils/100 WBC (Bld) 71.4 % Normal 43.0-75.0 [facility] Comment on above: Performed By: #### C BC ####[facility] Poxvtxxauh5643 [place] [address]Dr. Kalie Bess Platelet mean volume (Bld) [Entitic vol] 10.7 fL Normal 9.5-13.5 [facility] Comment on above: Performed By: #### C BC ####[facility] Skqdfxtimf8319 [place] [address]Dr. Kalie Bess PLT 268 103/ul Normal 150-450 [facility] Comment on above: Performed By: #### C BC ####[facility] Wlpmjcheru8674 [place] [address]DrCassie Bess RBC 2.60 106/ul Critically low 4.20-5.40 [facility] Comment on above: Performed By: #### C BC ####[facility] Rqirfkegbj7506 [place] [address]Dr. Kalie Bess WBC 17.3 103/ul Critically high 4.0-11.0 [facility] Comment on above: Performed By: #### C BC ####[facility] Dlfbyhxqlk7836 [place] [address]Dr. Kalie Bess CBC W MANUAL DIFFon 11-29-19 23 ATYPICAL LYMPH # 0.00 103/ul Normal [facility] Comment on above: Performed By: #### C BCMAN ####[facility] Jydtulkyvq9664 [place] [address]Dr. Kalie Bess ATYPICAL LYMPH % 0 % Normal [facility] Comment on above: Performed By: #### C BCMAN ####[facility] Sxkxofbkop4033 [place] [address]Dr. Kalie Bess BAND # 0.2 103/ul Normal 0.0-0.3 The [facility] Comment on above: Performed By: #### C BCMAN ####[facility] Svznfxvwnc3916 [place] [address]Dr. Kalie Bess BAND % 1 % Normal 0-5 The [facility] Comment on above: Performed By: #### C BCMAN ####[facility] Bttahpokgr6899 [place] [address]Dr. Kalie Bess BASOM # 0.00 103/ul Normal 0.00-0.10 The [facility] Comment on above: Performed By: #### C BCMAN ####[facility] Rfxvujzvag0571 [place] [address]Dr. Kalie Bess BASOM % 0.0 % Critically low 0.2-2.0 The [facility] Comment on above: Performed By: #### C BCMAN ####[facility] Dvfujsnsew2216 [place] [address]Dr. Kalie Bess BLAST # Normal [facility] Comment on above: Performed By: #### C BCMAN ####[facility] Ifjihqlzzu[address] [place], [place] [address]Dr. Kalie Bess BLAST % Normal [facility] Comment on above: Performed By: #### C BCGABRIELLA ####[facility] Ftdummvras2957 [place] [address]Dr. Kalie Bess CORRECTED WBC Normal 4.0-11.0 [facility] Comment on above: Performed By: #### C BCGABRIELLA ####[facility] Ubitudjela8[address] [place] [address]Dr. Kalie Bess EOS # 0.78 103/ul Critically high 0.00-0.70 [facility] Comment on above: Performed By: #### C BCGABRIELLA ####[facility] Nxhesfxscl3625 [place] [address]Dr. Kalie Bess EOS% 4.0 % Normal 0.9-7.0 [facility] Comment on above: Performed By: #### C NANCY ####[facility] Xuqevnogai[address] [place], [place] [address]Dr. Kalie Bess HCT 24.8 % Critically low 36.0-48.0 [facility] Comment on above: Performed By: #### C BCGABRIELLA ####[facility] Nmmzwncfqw10[address] [place], [place] [address]Dr. Kalie Bess HGB 7.4 g/dl Critically low 12.0-16.0 The [facility] Comment on above: Performed By: #### C BCGABRIELLA ####[facility] Dqusigscwa5[address] [place], [place] [address]Dr. Kalie Bess HYPOCHROMASIA 1+ Normal [facility] Comment on above: Performed By: #### C BCGABRIELLA ####[facility] Fvgcbjppno54[address] [place], [place] [address]Dr. Kalie Bess LYMPHM # 1.94 103/ul Normal 1.20-3.80 [facility] Comment on above: Performed By: #### C BCMAN ####[facility] Ozffmzcqzx6165[address] [place], [place] [address]Dr. Kalie Bess LYMPHM% 10.0 % Critically low 20.5-60.0 [facility] Comment on above: Performed By: #### C NANCY ####[facility] Igdjhxyxoa5612 [place] [address]Dr. Kalie Bess MCH 28.8 pg Normal 26.7-34.0 [facility] Comment on above: Performed By: #### C NANCY ####[facility] Ofocsqymld1769 [place], [place] [address]Tz. Kalie Bess MCHC 29.8 g/dl Critically low 29.9-35.2 The [facility] Comment on above: Performed By: #### C NANCY ####[facility] Npjhplofjc5394 [place] [address]Dr. Kalie Bess MCV 96.5 fL Normal 81.0-99.0 [facility] Comment on above: Performed By: #### C NANCY ####[facility] Vvqthkkxmh5829 [place] [address]Dr. Kalie Bess METAMYELOCYTE # Normal [facility] Comment on above: Performed By: #### C NANCY ####[facility] Irrofzzkoc0694 [place] [address]Dr. Kalie Bess METAMYELOCYTE % Normal [facility] Comment on above: Performed By: #### C NANCY ####[facility] Cgcfpkkcyw1806 [place] [address]Dr. Kalie Bess MICROCYTOSIS SLIGHT Normal [facility] Comment on above: Performed By: #### C NANCY ####[facility] Pzmhiwruug4299 [place] [address]Dr. Kalie Bess MONOM# 0.97 103/ul Critically high 0.30-0.80 [facility] Comment on above: Performed By: #### C NANCY ####[facility] Dfrsjqrtam8987 [place] [address]Dr. Kalie Bess MONOM% 5.0 % Normal 1.7-12.0 [facility] Comment on above: Performed By: #### C NANCY ####[facility] Sapmyzzret1483 [place] [address]Dr. Kalie Bess MPV 10.9 fL Normal 9.5-13.5 [facility] Comment on above: Performed By: #### C BCGABRIELLA ####[facility] Blomfclujs4912 [place] [address]Dr. Kalie Bess MYELOCYTE # Normal [facility] Comment on above: Performed By: #### C NANCY ####[facility] Azwmvqnbpa4331 [place], [place] [address]Bu. Kalie Shahriar MYELOCYTE % Normal [facility] Comment on above: Performed By: #### C BCGABRIELLA ####[facility] Veqxthcwwv6012 [place] [address]Dr. Kalie Bess NRBC Normal [facility] Comment on above: Performed By: #### C NANCY ####[facility] Xmzzdiynkk7811 [place] [address]Dr. Shayyroxie Bess PLT 271 103/ul Normal 150-450 [facility] Comment on above: Performed By: #### C NANCY ####[facility] Gimdcetqwl6019 [place] [address]Dr. Kalie Bess RBC 2.57 106/ul Critically low 4.20-5.40 [facility] Comment on above: Performed By: #### C NANCY ####[facility] Ytbgzkqdix8085 [place] [address]Dr. Kalie Bess RDW 14.1 % Normal 11.0-15.0 [facility] Comment on above: Performed By: #### C NANCY ####[facility] Trszznbwxy0921 [place] [address]Dr. Kalie Bess SEG # 15.52 103/ul Critically high 1.40-6.50 [facility] Comment on above: Performed By: #### C NANCY ####[facility] Kzwioqsung1122 [place] [address]Dr. Shayyroxie Bess SEG % 80.0 % Critically high 43.0-75.0 [facility] Comment on above: Performed By: #### C NANCY ####[facility] Jdekdfvmpr1053 [place] [address]Dr. Kalie Bess STOMATOCYTES SLIGHT Normal [facility] Comment on above: Performed By: #### C BCMAN ####[facility] Qcdkswrutg0410 [place] [address]Dr. Kalie Bess WBC 19.4 103/ul Critically high 4.0-11.0 [facility] Comment on above: Performed By: #### C BCMAN ####[facility] Hdomfmvpno0589 [place] [address]Dr. Kalie Bess CRPon 11-29-2022 CRP 5.7 mg/dL Critically high <=1.0 [facility] Comment on above: Performed By: #### C MP, CRP ####[facility] Hwkboueabp7132 [place] [address]Dr. Kalie Bess POINT OF CARE GLUCOSEon Glucose [Mass/Vol] 225 mg/dL Critically high 74-[address] [facility] Comment on above: Performed By: #### P OCGLUC ####[facility] Qryjohelqo4258 [place] [address]Dr. Kalie Bess Glucose [Mass/Vol] 144 mg/dL Critically high 74-[address] [facility] Comment on above: Performed By: #### P OCGLUC ####[facility] Hwqogtpuae6075[address] [place], [place] [address]Dr. Kalie Bess Glucose [Mass/Vol] 243 mg/dL Critically high -[address] [facility] Comment on above: Performed By: #### P OCGLUC ####[facility] Okvhwbpont029[address] [place], [place] [address]Dr. Kalie Bess Glucose [Mass/Vol] 214 mg/dL Critically high 74-[address] [facility] Comment on above: Performed By: #### P OCGLUC ####[facility] Essqerktam6415[address] [place], [place] [address]Dr. Kalie Shahriar PROF 14(COMP METB)on 023 Albumin [Mass/Vol] 1.5 g/dL Critically low 3.4-5.0 [facility] Comment on above: Performed By: #### C MP, CRP ####[facility] Uvmhnqgxkv7217 [place] [address]Dr. Kalie Shahriar Albumin/Globulin [Mass ratio] 0.4 {ratio} Normal [facility] Comment on above: Performed By: #### C MP, CRP ####[facility] Leqkocqrjy3083 [place] [address]Dr. Kalie Shahriar ALP [Catalytic activity/Vol] 117 U/L Critically high 46-116 [facility] Comment on above: Performed By: #### C MP, CRP ####[facility] Vtpsicubpc8475 [place] [address]Dr. Kaile Shahriar ALT [Catalytic activity/Vol] 21 U/L Normal 14-59 [facility] Comment on above: Performed By: #### C MP, CRP ####[facility] Zisnhlnbch534[address] [place], [place] [address]Dr. Kalie Bess Anion gap [Moles/Vol] 9.7 mmol/L Normal [facility] Comment on above: Performed By: #### C MP, CRP ####[facility] Vjfzasqsuz425[address] [place], [place] [address]Dr. Shayyroxie Bess AST [Catalytic activity/Vol] 16 U/L Normal 15-37 [facility] Comment on above: Performed By: #### C MP, CRP ####[facility] Ptvfrqswqk8814[address] [place], [place] [address]Dr. Kalie Bess Bilirubin [Mass/Vol] 0.2 mg/dL Normal 0.2-1.0 [facility] Comment on above: Performed By: #### C MP, CRP ####[facility] Geloqqhgkn254[address] [place], [place] [address]Dr. Kalie Bess Calcium [Mass/Vol] 7.8 mg/dL Critically low 8.5-10.1 Th [facility] Comment on above: Performed By: #### C MP, CRP ####[facility] Pymbegzkkm3157[address] [place], [place] [address]Dr. Kalie Bess Chloride [Moles/Vol] 102 mmol/L Normal 98-107 [facility] Comment on above: Performed By: #### C MP, CRP ####[facility] Bgpmjiioay1303[address] [place], [place] [address]Dr. Kalie Bess CO2 [Moles/Vol] 28.4 mmol/L Normal 21.0-32.0 [facility] Comment on above: Performed By: #### C MP, CRP ####[facility] Bpgqlqweeg559[address] [place], [place] [address]Dr. Kalie Bess Creatinine [Mass/Vol] 1.85 mg/dL Critically high 0.55-1.02 [facility] Comment on above: Performed By: #### C MP, CRP ####[facility] Ndmsgljtwv845[address] [place], [place] [address]Dr. Klaie Bess EGFR-AF INDIAN 35 mL/min/1.73m2 Critically low >=60 [facility] Comment on above: Performed By: #### C MP, CRP ####[facility] Aimhrbcdxp0013[address] [place], [place] [address]Dr. Kalie Bess EGFR-NON AF INDIAN 29 mL/min/1.73m2 Critically low >=60 [facility] Comment on above: Performed By: #### C MP, CRP ####[facility] Okdhndoran7596[address] [place], [place] [address]Dr. Kalie Bess Globulin (S) [Mass/Vol] 4.2 g/dL Normal [facility] Comment on above: Performed By: #### C MP, CRP ####[facility] Utfigsvfiy0547[address] [place], [place] [address]Dr. Kalie Bess Glucose [Mass/Vol] 250 mg/dL Critically high 74-[address] [facility] Comment on above: Performed By: #### C MP, CRP ####[facility] Lwmqoaviet3396[address] [place], [place] [address]Dr. Kalie Bess Potassium [Moles/Vol] 4.1 mmol/L Normal 3.5-5.1 [facility] Comment on above: Performed By: #### C MP, CRP ####[facility] Bktigeymkb0317[address] [place], [place] [address]Dr. Kalie Bess Protein [Mass/Vol] 5.7 g/dL Critically low 6.4-8.2 Th [facility] Comment on above: Performed By: #### C MP, CRP ####[facility] Rlkibugiwm6017 [place] [address]Dr. Kalie Bess Sodium [Moles/Vol] 136 mmol/L Normal 136-145 [facility] Comment on above: Performed By: #### C MP, CRP ####[facility] Gwwnfdfzhy8457 [place] [address]Dr. Kalie Bess Urea nitrogen [Mass/Vol] 17.0 mg/dL Normal 7.0-18.0 [facility] Comment on above: Performed By: #### C MP, CRP ####[facility] Xoxpiyjfjp5705 [place] [address]Dr. Kalie Shahriar Urea nitrogen/Creatinine [Mass ratio] 9.2 mg/mg Normal [facility] Comment on above: Performed By: #### C MP, CRP ####[facility] Plpovldwse97[address] [place], [place] [address]Dr. Kalie Shahriar [facility] SED RATE 63 mm/hr Critically high <=30 [facility] Comment on above: Performed By: #### S EDR ####[facility] Jlemivpotn25[address] [place], [place] [address]Dr. Shayyroxie Shahriar TYPE AND SCREENon 11-29-2022 TYPE AND SCREEN Negative Normal [facility] Comment on above: Performed By: #### T NS ####[facility] Booirdjfej9334[address] [place], [place] [address]Dr. Kalie Shahriar CBC W MANUAL DIFFon 11-28-19 23 ANISOCYTOSIS SLIGHT Normal [facility] Comment on above: Performed By: #### C BCMAN ####[facility] Sepqntbast0813[address] [place], [place] [address]Dr. Kalie Bess ATYPICAL LYMPH # 0.37 103/ul Normal [facility] Comment on above: Performed By: #### C BCMAN ####[facility] Lvryzbmhgz3675 [place] [address]Dr. Kalie Bess ATYPICAL LYMPH % 2 % Normal [facility] Comment on above: Performed By: #### C BCMAN ####[facility] Pzwppnnjqh0985 [place] [address]Dr. Yilan Bess BAND # 0.6 103/ul Critically high 0.0-0.3 [facility] Comment on above: Performed By: #### C NANCY ####[facility] Zbgbyfvcfw3972 [place] [address]Dr. Yilan Bess BAND % 3 % Normal 0-5 [facility] Comment on above: Performed By: #### C NANCY ####[facility] Uicrngtesi9375 [place] [address]Dr. Yilan Bess BASOM # 0.00 103/ul Normal 0.00-0.10 [facility] Comment on above: Performed By: #### C NANCY ####[facility] Tltopvfbrz[address] [place], [place] [address]Dr. Kalie Bess BASOM % 0.0 % Critically low 0.2-2.0 [facility] Comment on above: Performed By: #### C NANCY ####[facility] Medddeoelz[address] [place], [place] [address]Dr. Yilan Bess BLAST # Normal [facility] Comment on above: Performed By: #### C NANCY ####[facility] Sxkqrgkmax14[address] [place], [place] [address]Dr. Yilan Bess BLAST % Normal [facility] Comment on above: Performed By: #### C NANCY ####[facility] Ycjjgvtceq[address] [place], [place] [address]Dr. Kalie Bess CORRECTED WBC Normal 4.0-11.0 The [facility] Comment on above: Performed By: #### C NANCY ####[facility] Oiclvrsdud9425 [place] [address]Dr. Yiroxie Bess EOS # 0.56 103/ul Normal 0.00-0.70 [facility] Comment on above: Performed By: #### C NANCY ####[facility] Jpmaufmcir3[address] [place], [place] [address]Dr. Yiroxie Bess EOS% 3.0 % Normal 0.9-7.0 [facility] Comment on above: Performed By: #### C NANCY ####[facility] Suqsmpbqwv8182 [place], [place] [address]Eu. Kalie Bess HCT 27.8 % Critically low 36.0-48.0 The [facility] Comment on above: Performed By: #### C NANCY ####[facility] Ubsfnotjud7286 [place], [place] [address]Ye. Kalie Bess HGB 8.9 g/dl Critically low 12.0-16.0 The [facility] Comment on above: Performed By: #### C NANCY ####[facility] Vjcpvjgoaf0165 [place] [id number]. Kalie Bess HYPOCHROMASIA 1+ Normal The [facility] Comment on above: Performed By: #### C NANCY ####[facility] Mdlcvjycpc7329 [place] [address]Dr. Kalie Bess LYMPHM # 2.99 103/ul Normal 1.20-3.80 [facility] Comment on above: Performed By: #### C NANCY ####[facility] Mytkwrmmwa9425 [place] [address]Dr. Kalie Bess LYMPHM% 16.0 % Critically low 20.5-60.0 The [facility] Comment on above: Performed By: #### C NANCY ####[facility] Keplcvsbky1289 [place] [address]Dr. Kalie Bess MCH 28.8 pg Normal 26.7-34.0 [facility] Comment on above: Performed By: #### C NANCY ####[facility] Gazqiscclh2398 [place] [address]Dr. Kalie Bess MCHC 32.0 g/dl Normal 29.9-35.2 [facility] Comment on above: Performed By: #### C NANCY ####[facility] Kltudmzvrk0867 [place] [address]Dr. Kalie Bess MCV 90.0 fL Normal 81.0-99.0 [facility] Comment on above: Performed By: #### C NANCY ####[facility] Rqolnwlvch9516 [place] [address]Dr. Kalie Bess METAMYELOCYTE # Normal The [facility] Comment on above: Performed By: #### C NANCY ####[facility] Wedicpvzgx1457 [place] [address]Dr. Kalie Bess METAMYELOCYTE % Normal [facility] Comment on above: Performed By: #### C NANCY ####[facility] Chiwusvinb6674 [place] [address]Dr. Kalie Bess MONOM# 0.94 103/ul Critically high 0.30-0.80 [facility] Comment on above: Performed By: #### C NANCY ####[facility] Moqwgruxqu9528 [place] [address]Dr. Kalie Bess MONOM% 5.0 % Normal 1.7-12.0 [facility] Comment on above: Performed By: #### C NANCY ####[facility] Zgzlkqxuvd2951 [place] [address]Dr. Kalie Bess MPV 10.4 fL Normal 9.5-13.5 [facility] Comment on above: Performed By: #### C NANCY ####[facility] Fstlqpngxq7024 [place] [address]Dr. Kalie Bess MYELOCYTE # Normal [facility] Comment on above: Performed By: #### C NANCY ####[facility] Yvtzlluobz7696 [place] [address]Dr. Kalie Bess MYELOCYTE % Normal [facility] Comment on above: Performed By: #### C NANCY ####[facility] Ztzunhzzjq5545 [place] [address]Dr. Kalie Bess NRBC Normal [facility] Comment on above: Performed By: #### C NANCY ####[facility] Nojgrxqoyo8[address] [place], [place] [address]Dr. Kalie Bess PLT 285 103/ul Normal 150-450 [facility] Comment on above: Performed By: #### C NANCY ####[facility] Chfyiyygay3515 [place] [address]Dr. Kalie Bess RBC 3.09 106/ul Critically low 4.20-5.40 [facility] Comment on above: Performed By: #### C BCMAN ####[facility] Iuicbokvyv3237 [place], [place] [address]Sg. Kalie Bess RDW 13.6 % Normal 11.0-15.0 [facility] Comment on above: Performed By: #### C BCMAN ####[facility] Ljmbuhkimd8769 [place], [place] [address]Eg. Kalie Bess SEG # 13.28 103/ul Critically high 1.40-6.50 [facility] Comment on above: Performed By: #### C BCMAN ####[facility] Twhkdqskpe8436 [place], [place] [address]Zt. Kalie Bess SEG % 71.0 % Normal 43.0-75.0 [facility] Comment on above: Performed By: #### C BCMAN ####[facility] Qnmquwokxh1337 [place] [address]Dr. Kalie Bess WBC 18.7 103/ul Critically high 4.0-11.0 [facility] Comment on above: Performed By: #### C BCMAN ####[facility] Fuoimcqzzv[address] [place], [place] [address]Dr. Kalie Bess CRPon 11-28-2022 CRP 4.6 mg/dL Critically high <=1.0 [facility] Comment on above: Performed By: #### C MP, CRP ####[facility] Dhpbhfbuzi6948 [place] [phone]. Kalie Bess CULTURE ANAEROBICon 11-28-19 23 CULTURE ANAEROBIC Culture Observations : NO GROWTH OF ANAEROBES AT 72 HOURS. Normal [facility] Comment on above: Performed By: #### A NACX ####[facility] Rkugkqqdpb[address] [place], [place] [address]Dr. Kalie Bess CULTURE OTHERon 11-28-2022 CULTURE OTHER Culture Observations : NO GROWTH OF AEROBES AT 48 HOURS. Normal [facility] Comment on above: Performed By: #### O THCX ####[facility] Dtmzgmmanb[address] [place], [place] [address]Dr. Kalie Bess GRAM STAINon 11-28-2022 COMMENTS NO ORGANISMS OBSERVED Normal [facility] Comment on above: Performed By: #### G STAIN ####[facility] Pnzdfyspps0852 [place] [address]Dr. Kalie Bess DIPHTHEROIDS Normal [facility] Comment on above: Performed By: #### G STAIN ####[facility] Thkjsjzqsl2591 [place] [address]Dr. Kalie Bess EPITHELIALS FEW Normal [facility] Comment on above: Performed By: #### G STAIN ####[facility] Advrwbcjti2941 [place] [address]Dr. Kalie Bess FUNGAL ELEMENTS Normal [facility] Comment on above: Performed By: #### G STAIN ####[facility] Joqxpzvvlz45[address] [place], [place] [address]Dr. Kalie Bess GRAM NEG BACILLI Normal [facility] Comment on above: Performed By: #### G STAIN ####[facility] Evxsrdaobc737[address] [place], [place] [address]Dr. Kalie Bess GRAM NEG DIPPLOCOCCI Normal [facility] Comment on above: Performed By: #### G STAIN ####[facility] Wonukitgzt4[address] [place], [place] [address]Dr. Kalie Bess GRAM POS BACILLI Normal [facility] Comment on above: Performed By: #### G STAIN ####[facility] Vvaslzrowy7327[address] [place], [place] [address]Dr. Kalie Bess GRAM POSITIVE COCCI Normal [facility] Comment on above: Performed By: #### G STAIN ####[facility] Rwnpdaxzej7542 [place] [address]Dr. Kalie Bess GRAM STAIN SOURCE l. breast abcess Normal [facility] Comment on above: Performed By: #### G STAIN ####[facility] Nhxokjaypa[address] [place], [place] [address]Dr. Kalie Bess GS_DIPTH Normal [facility] Comment on above: Performed By: #### G STAIN ####[facility] Hplbhobrtm6[address] [place], [place] [address]Dr. Kalie Bess WBC RARE Normal [facility] Comment on above: Performed By: #### G STAIN ####[facility] Eeumtzmahx1949 [place] [address]Dr. Kalie Bess POINT OF CARE GLUCOSEon 02- Glucose [Mass/Vol] 151 mg/dL Critically high 74-[address] [facility] Comment on above: Performed By: #### P OCGLUC ####[facility] Leakahcizd7553 [place] [address]Dr. Kalie Bess Glucose [Mass/Vol] 159 mg/dL Critically high 74-[address] [facility] Comment on above: Performed By: #### P OCGLUC ####[facility] Hjtcxsivlh1563 [place] [address]Dr. Kalie Bess PROF 14(COMP METB)on 023 Albumin [Mass/Vol] 1.7 g/dL Critically low 3.4-5.0 [facility] Comment on above: Performed By: #### C MP, CRP ####[facility] Lczhywasja8093 [place] [address]Dr. Kalie Bess Albumin/Globulin [Mass ratio] 0.4 {ratio} [facility] Comment on above: Performed By: #### C MP, CRP ####[facility] Icjexysalv7918 [place] [address]Dr. Kalie Bess ALP [Catalytic activity/Vol] 133 U/L Critically high 46-116 [facility] Comment on above: Performed By: #### C MP, CRP ####[facility] Pezakgvoxk3876 [place] [address]Dr. Kalie Bess ALT [Catalytic activity/Vol] 23 U/L Normal 14-59 [facility] Comment on above: Performed By: #### C MP, CRP ####[facility] Pdykojafdw0126 [place] [address]Dr. Kalie Bess Anion gap [Moles/Vol] 9.3 mmol/L Normal [facility] Comment on above: Performed By: #### C MP, CRP ####[facility] Soeyppemqz022[address] [place], [place] [address]Dr. Kalie Bess AST [Catalytic activity/Vol] 17 U/L Normal 15-37 [facility] Comment on above: Performed By: #### C MP, CRP ####[facility] Knqwodvemn3719 [place] [address]Dr. Kalie Bess Bilirubin [Mass/Vol] 0.3 mg/dL Normal 0.2-1.0 [facility] Comment on above: Performed By: #### C MP, CRP ####[facility] Ffdsfxispi7251 [place] [address]Dr. Kalie Bess Calcium [Mass/Vol] 8.4 mg/dL Critically low 8.5-10.1 Th [facility] Comment on above: Performed By: #### C MP, CRP ####[facility] Qpuiopupxj4846 [place] [address]Dr. Kalie Bess Chloride [Moles/Vol] 104 mmol/L Normal 98-107 [facility] Comment on above: Performed By: #### C MP, CRP ####[facility] Druuigwqqv6370 [place] [address]Dr. Kalie Bess CO2 [Moles/Vol] 29.2 mmol/L Normal 21.0-32.0 [facility] Comment on above: Performed By: #### C MP, CRP ####[facility] Uleurgggmb0334 [place] [address]Dr. Kalie Bess Creatinine [Mass/Vol] 1.12 mg/dL Critically high 0.55-1.02 [facility] Comment on above: Performed By: #### C MP, CRP ####[facility] Ktmtrbhzgs8548 [place] [address]Dr. Kalie Bess EGFR-AF INDIAN >60 Normal >=60 [facility] Comment on above: Performed By: #### C MP, CRP ####[facility] Viwsexkjwp3341 [place] [address]Dr. Kalie Bess EGFR-NON AF INDIAN 51 mL/min/1.73m2 Critically low >=60 [facility] Comment on above: Performed By: #### C MP, CRP ####[facility] Qvdilmbdel9756 [place] [address]Dr. Kalie Bess Globulin (S) [Mass/Vol] 4.5 g/dL Normal [facility] Comment on above: Performed By: #### C MP, CRP ####[facility] Ftbwfbomie4913 [place] [address]Dr. Kalie Bess Glucose [Mass/Vol] 85 mg/dL Normal 74-106 [facility] Comment on above: Performed By: #### C MP, CRP ####[facility] Szevrptcdf794[address] [place], [place] [address]Dr. Kalie Bess Potassium [Moles/Vol] 3.5 mmol/L Normal 3.5-5.1 [facility] Comment on above: Performed By: #### C MP, CRP ####[facility] Cuejiozqgl7075[address] [place], [place] [address]Dr. Kalie Bess Protein [Mass/Vol] 6.2 g/dL Critically low 6.4-8.2 [facility] Comment on above: Performed By: #### C MP, CRP ####[facility] Krimwlbzkx038[address] [place], [place] [address]Dr. Kalie Bess Sodium [Moles/Vol] 139 mmol/L Normal 136-145 [facility] Comment on above: Performed By: #### C MP, CRP ####[facility] Oolkdwtnyw2722[address] [place], [place] [address]Dr. Kalie Bess Urea nitrogen [Mass/Vol] 12.0 mg/dL Normal 7.0-18.0 [facility] Comment on above: Performed By: #### C MP, CRP ####[facility] Lugmxktsfv9039[address] [place], [place] [address]Dr. Kalie Bess Urea nitrogen/Creatinine [Mass ratio] 10.7 mg/mg Normal [facility] Comment on above: Performed By: #### C MP, CRP ####[facility] Dgwpfebygn0648[address] [place], [place] [address]Dr. Kalie Bess SED RATE WESTERGRENon 2022 SED RATE >130 Critically high <=30 [facility] Comment on above: Performed By: #### S EDR ####[facility] Wziawtqdep8270 [place] [address]Dr. Kalie Bess CBC AUTO DIFFon 11-27-2022 BASO # 0.1 103/ul Normal 0.0-0.1 [facility] Comment on above: Performed By: #### C BC ####[facility] Zgkflfxhbg7333 [place] [address]Dr. Shayyroxie Bess Basophils/100 WBC (Bld) 0.6 % Normal 0.2-2.0 [facility] Comment on above: Performed By: #### C BC ####[facility] Toiwxkhsmg511[address] [place], [place] [address]Dr. Kalie Shahriar EO # 0.5 103/ul Normal 0.0-0.7 [facility] Comment on above: Performed By: #### C BC ####[facility] Eznddpyjmp035[address] [place], [place] [address]Dr. Shayyroxie Bess Eosinophils/100 WBC (Bld) 2.8 % Normal 0.9-7.0 [facility] Comment on above: Performed By: #### C BC ####[facility] Hakyinkvlx7744[address] [place], [place] [address]Dr. Kalie Bess Erythrocyte distribution width (RBC) [Ratio] 14.1 % Normal 11.0-15.0 [facility] Comment on above: Performed By: #### C BC ####[facility] Eqpbrjsbvt69101[address] [place], [place] [address]Dr. Kalie Bess Hematocrit (Bld) [Volume fraction] 27.3 % Critically low 36.0-48.0 [facility] Comment on above: Performed By: #### C BC ####[facility] Fixojjwlbd9704[address] [place], [place] [address]Dr. Kalie Bess Hemoglobin (Bld) [Mass/Vol] 8.4 g/dL Critically low 12.0-16.0 [facility] Comment on above: Performed By: #### C BC ####[facility] Xgkrkbapgq4217[address] [place], [place] [address]Dr. Kalie Bess IG # 1.53 10e3/ul Critically high 0.00-0.03 [facility] Comment on above: Performed By: #### C BC ####[facility] Hufgqjcsqo2377 [place] [address]DrCassie Kalie Shahriar IG % 8.9 % Critically high 0.0-0.5 [facility] Comment on above: Performed By: #### C BC ####[facility] Olnqwmqtbf1588 [place] [address]DrCassie Bess LYMPH # 3.8 103/ul Normal 1.2-3.8 [facility] Comment on above: Performed By: #### C BC ####[facility] Wdbayjgwlv1344 [place] [address]DrCassie Bess Lymphocytes/100 WBC (Bld) 21.8 % Normal 20.5-60.0 [facility] Comment on above: Performed By: #### C BC ####[facility] Xxidaczzvr2276 [place] [address]DrCassie Bess MANUAL DIFF REQ NO Normal [facility] Comment on above: Performed By: #### C BC ####[facility] Kunugzohrp8707 [place] [address]DrCassie Kalie Shahriar MCH (RBC) [Entitic mass] 29.2 pg Normal 26.7-34.0 [facility] Comment on above: Performed By: #### C BC ####[facility] Niwzoyetan2290 [place] [address]DrCassie Bess MCHC (RBC) [Mass/Vol] 30.8 g/dL Normal 29.9-35.2 [facility] Comment on above: Performed By: #### C BC ####[facility] Snewadinda1396 [place] [address]DrCassie Bess MCV (RBC) [Entitic vol] 94.8 fL Normal 81.0-99.0 [facility] Comment on above: Performed By: #### C BC ####[facility] Uzoehaadba9736 [place] [address]DrCassie Bess MONO # 1.3 103/ul Critically high 0.3-0.8 [facility] Comment on above: Performed By: #### C BC ####[facility] Rtbgavrynj7606 [place] [address]Dr. Kalie Bess Monocytes/100 WBC (Bld) 7.7 % Normal 1.7-12.0 [facility] Comment on above: Performed By: #### C BC ####[facility] Fxokqhaigh5638 [place] [address]Dr. Kalie Bess NEUT # 10.0 103/ul Critically high 1.4-6.5 [facility] Comment on above: Performed By: #### C BC ####[facility] Zjkrxbhwwv2979 [place] [address]Dr. Kalie Bess Neutrophils/100 WBC (Bld) 58.2 % Normal 43.0-75.0 [facility] Comment on above: Performed By: #### C BC ####[facility] Eletshrioi1750 [place] [address]Dr. Kalie Bess Platelet mean volume (Bld) [Entitic vol] 11.2 fL Normal 9.5-13.5 [facility] Comment on above: Performed By: #### C BC ####[facility] Bdgopqeoek[address] [place], [place] [address]Dr. Kalie Bess PLT 278 103/ul Normal 150-450 [facility] Comment on above: Performed By: #### C BC ####[facility] Ebsqwjzxxv6333 [place] [address]Dr. Kalie Bess RBC 2.88 106/ul Critically low 4.20-5.40 [facility] Comment on above: Performed By: #### C BC ####[facility] Hjpjfyhpic3514 [place] [address]Dr. Kalie Bess WBC 17.2 103/ul Critically high 4.0-11.0 [facility] Comment on above: Performed By: #### C BC ####[facility] Kbextyjhtp9588 [place] [address]Dr. Kalie Bess CRPon 11-27-2022 CRP 5.4 mg/dL Critically high <=1.0 [facility] Comment on above: Performed By: #### C RP, CMP ####[facility] Pqplytblwp0199 [place] [address]Dr. Kalie Shahriar POINT OF CARE GLUCOSEon Glucose [Mass/Vol] 379 mg/dL Critically high 74-[address] [facility] Comment on above: Performed By: #### P OCGLUC ####[facility] Yrdkbjlgbn6940 [place] [address]Dr. Kalie Bess Glucose [Mass/Vol] 232 mg/dL Critically high 74-[address] [facility] Comment on above: Performed By: #### P OCGLUC ####[facility] Tlraawlgou968[address] [place], [place] [address]Dr. Kalie Bess Glucose [Mass/Vol] 216 mg/dL Critically high 74-[address] [facility] Comment on above: Performed By: #### P OCGLUC ####[facility] Zvngtmtent4918[address] [place], [place] [address]Dr. Kalie Bess Glucose [Mass/Vol] 249 mg/dL Critically high 74-[address] [facility] Comment on above: Performed By: #### P OCGLUC ####[facility] Kooxhhttce6614[address] [place], [place] [address]Dr. Kalie Shahriar PROF 14(COMP METB)on 023 Albumin [Mass/Vol] 1.6 g/dL Critically low 3.4-5.0 [facility] Comment on above: Performed By: #### C RP, CMP ####[facility] Lngxfmwmac5403 [place] [address]Dr. Kalie Shahriar Albumin/Globulin [Mass ratio] 0.3 {ratio} Normal [facility] Comment on above: Performed By: #### C RP, CMP ####[facility] Nrftmywyrm0779[address] [place], [place] [address]Dr. Kalie Bess ALP [Catalytic activity/Vol] 147 U/L Critically high 46-116 [facility] Comment on above: Performed By: #### C RP, CMP ####[facility] Qkuertdjcl4279 [place] [address]Dr. Kalie Bess ALT [Catalytic activity/Vol] 25 U/L Normal 14-59 [facility] Comment on above: Performed By: #### C RP, CMP ####[facility] Dhsyufgiqr5895[address] [place], [place] [address]Dr. Kalie Bess Anion gap [Moles/Vol] 9.9 mmol/L Normal [facility] Comment on above: Performed By: #### C RP, CMP ####[facility] Zlpcvwhhzg813[address] [place], [place] [address]Dr. Kalie Bess AST [Catalytic activity/Vol] 16 U/L Normal 15-37 [facility] Comment on above: Performed By: #### C RP, CMP ####[facility] Pvdrfpqcnn9733[address] [place], [place] [address]Dr. Kalie Bess Bilirubin [Mass/Vol] 0.1 mg/dL Critically low 0.2-1.0 [facility] Comment on above: Performed By: #### C RP, CMP ####[facility] Nawvzzpmkh480[address] [place], [place] [address]Dr. Kalie Bess Calcium [Mass/Vol] 8.2 mg/dL Critically low 8.5-10.1 Th [facility] Comment on above: Performed By: #### C RP, CMP ####[facility] Gocqxveunf7098[address] [place], [place] [address]Dr. Kalie Bess Chloride [Moles/Vol] 101 mmol/L Normal 98-107 [facility] Comment on above: Performed By: #### C RP, CMP ####[facility] Rasaeiykgs9548[address] [place], [place] [address]Dr. Kalie Bess CO2 [Moles/Vol] 27.1 mmol/L Normal 21.0-32.0 [facility] Comment on above: Performed By: #### C RP, CMP ####[facility] Jfhxjvvctd7633[address] [place], [place] [address]Dr. Kalie Bess Creatinine [Mass/Vol] 1.16 mg/dL Critically high 0.55-1.02 [facility] Comment on above: Performed By: #### C RP, CMP ####[facility] Hojqechlux8313 [place] [address]Dr. Kalie Bess EGFR-AF INDIAN 60 mL/min/1.73m2 Normal >=60 Th [facility] Comment on above: Performed By: #### C RP, CMP ####[facility] Quxgzfbwzc4217 [place] [address]Dr. Kalie Bess EGFR-NON AF INDIAN 49 mL/min/1.73m2 Critically low >=60 [facility] Comment on above: Performed By: #### C RP, CMP ####[facility] Pvjnfgmyms3329 [place] [address]Dr. Kalie Bess Globulin (S) [Mass/Vol] 4.7 g/dL Normal [facility] Comment on above: Performed By: #### C RP, CMP ####[facility] Yrugbvpvuf3390 [place] [address]Dr. Kalie Bess Glucose [Mass/Vol] 281 mg/dL Critically high 74-106 [facility] Comment on above: Performed By: #### C RP, CMP ####[facility] Gfhjvjyjme[address] [place], [place] [address]Dr. Kalie Bess Potassium [Moles/Vol] 4.0 mmol/L Normal 3.5-5.1 [facility] Comment on above: Performed By: #### C RP, CMP ####[facility] Tsarmnxpdy[address] [place], [place] [address]Dr. Kalie Bess Protein [Mass/Vol] 6.3 g/dL Critically low 6.4-8.2 Th [facility] Comment on above: Performed By: #### C RP, CMP ####[facility] Jwbxgyjijs7826 [place] [address]Dr. Kalie Bess Sodium [Moles/Vol] 134 mmol/L Critically low 136-145 Th [facility] Comment on above: Performed By: #### C RP, CMP ####[facility] Povqnungci[address] [place], [place] [address]Dr. Kalie Bess Urea nitrogen [Mass/Vol] 13.0 mg/dL Normal 7.0-18.0 [facility] Comment on above: Performed By: #### C RP, CMP ####[facility] Tjyruacoaf4[address] [place] [address]Dr. Kalie Bess Urea nitrogen/Creatinine [Mass ratio] 11.2 mg/mg Normal [facility] Comment on above: Performed By: #### C RP, CMP ####[facility] Ztpcpaiern299[address] [place] [address]Dr. Kalie Shahriar SED RATE WESTERGRENon 2022 SED RATE >130 Critically high <=30 [facility] Comment on above: Performed By: #### S EDR ####[facility] Kntmqyzmbo[address] [place], [place] [address]Dr. Kalie Shahriar US BREAST LEFT LIMITEDon US BREAST LEFT LIMITED Normal [facility] CBC W MANUAL DIFFon 11-26-19 23 ATYPICAL LYMPH # Normal [facility] Comment on above: Performed By: #### C BCMAN ####[facility] Faodysqpbu[address] [place], [place] [address]Dr. Kalie Shahriar ATYPICAL LYMPH % Normal [facility] Comment on above: Performed By: #### C BCMAN ####[facility] Pfrtzbujsh[address] [place], [place] [address]Dr. Kalie Shahriar BAND # 0.2 103/ul Normal 0.0-0.3 [facility] Comment on above: Performed By: #### C BCMAN ####[facility] Yrkxrrggjt[address] [place] [address]Dr. Kalie Bess BAND % 1 % Normal 0-5 [facility] Comment on above: Performed By: #### C BCMAN ####[facility] Kpfcqzpmlz[address] [place] [address]Dr. Shayyroxie Shahriar BASOM # 0.00 103/ul Normal 0.00-0.10 [facility] Comment on above: Performed By: #### C BCMAN ####[facility] Jbsqxabjhc55[address] [place] [address]Dr. Kalie Bess BASOM % 0.0 % Critically low 0.2-2.0 The [facility] Comment on above: Performed By: #### C NANCY ####[facility] Nicfsexyzr7864 [place] [id number]. Kalie Bess BLAST # Normal [facility] Comment on above: Performed By: #### C BCGABRIELLA ####[facility] Lefziehqwr0490 [place] [address]Dr. Kaile Bess BLAST % Normal [facility] Comment on above: Performed By: #### C NANCY ####[facility] Movbdfvwvj26[address] [place] [address]Dr. Kalie Bess CORRECTED WBC Normal 4.0-11.0 [facility] Comment on above: Performed By: #### C NANCY ####[facility] Vehiiqtvcn6973[address] [place], [place] [address]Dr. Kalie Bess EOS # 0.17 103/ul Normal 0.00-0.70 [facility] Comment on above: Performed By: #### C NANCY ####[facility] Jhynuxlktv05[address] [place], [place] [address]Dr. Kalie Bess EOS% 1.0 % Normal 0.9-7.0 [facility] Comment on above: Performed By: #### C NANCY ####[facility] Fojdwtjgul15[address] [place], [place] [address]Dr. Kalie Bess HCT 29.0 % Critically low 36.0-48.0 [facility] Comment on above: Performed By: #### C NANCY ####[facility] Jgiojbbahr9[address] [place], [place] [address]Dr. Kalie Bess HGB 8.9 g/dl Critically low 12.0-16.0 [facility] Comment on above: Performed By: #### C NANCY ####[facility] Jfnfduxzce7[address] [place], [place] [address]Dr. Kalie Bess LYMPHM # 1.74 103/ul Normal 1.20-3.80 [facility] Comment on above: Performed By: #### C NANCY ####[facility] Zdmierzynd125[address] [place], [place] [address]Dr. Kalie Bess LYMPHM% 10.0 % Critically low 20.5-60.0 [facility] Comment on above: Performed By: #### C NANCY ####[facility] Qvvcwrxxuu9111 [place] [address]Dr. Kalie Bess MCH 28.3 pg Normal 26.7-34.0 [facility] Comment on above: Performed By: #### C NANCY ####[facility] Axlhlgkdcb7019 [place] [id number]. Kalie Bess MCHC 30.7 g/dl Normal 29.9-35.2 [facility] Comment on above: Performed By: #### C NANCY ####[facility] Muaxjjuzom6[address] [place] [address]Dr. Kalie Bess MCV 92.1 fL Normal 81.0-99.0 [facility] Comment on above: Performed By: #### C NANCY ####[facility] Rqmzqgufgz264[address] [place], [place] [address]Dr. Kalie Bess METAMYELOCYTE # Normal [facility] Comment on above: Performed By: #### C NANCY ####[facility] Gqxqvxyrst6[address] [place], [place] [address]Dr. Kalie Bess METAMYELOCYTE % Normal [facility] Comment on above: Performed By: #### C NANCY ####[facility] Rkshffdjpt8885[address] [place], [place] [address]Dr. Kalie Bess MONOM# 0.87 103/ul Critically high 0.30-0.80 [facility] Comment on above: Performed By: #### C NANCY ####[facility] Jdtatuscao4992 [place] [address]Dr. Kalie Bess MONOM% 5.0 % Normal 1.7-12.0 [facility] Comment on above: Performed By: #### C NANCY ####[facility] Kxfamjoeii6030 [place] [address]Dr. Kalie Bess MPV 11.5 fL Normal 9.5-13.5 [facility] Comment on above: Performed By: #### C NANCY ####[facility] Nwkevmhnko7489 [place], [place] [address]Be. Kalie Bess MYELOCYTE # 0.3 103/ul Normal [facility] Comment on above: Performed By: #### C NANCY ####[facility] Cypsymjdfb7694 [place], [place] [address]Te. Kalie Bess MYELOCYTE % 2 % Normal [facility] Comment on above: Performed By: #### C NANCY ####[facility] Klvfqsvymp4190 [place] [address]Dr. Kalie Bess NRBC Normal [facility] Comment on above: Performed By: #### C NANCY ####[facility] Xxzkyvkihl7400 [place] [address]Dr. Kalie Bess PLT 275 103/ul Normal 150-450 [facility] Comment on above: Performed By: #### C NANCY ####[facility] Pmffwtmqgh1325 [place] [address]Dr. Kalie Bess RBC 3.15 106/ul Critically low 4.20-5.40 [facility] Comment on above: Performed By: #### C NANCY ####[facility] Dztcwsmzfz9102 [place] [address]Dr. Kalie Bess RDW 14.4 % Normal 11.0-15.0 [facility] Comment on above: Performed By: #### C NANCY ####[facility] Nmbttnaiiy7117 [place] [address]Dr. Kalie Bess SEG # 14.09 103/ul Critically high 1.40-6.50 [facility] Comment on above: Performed By: #### C NANCY ####[facility] Ybkdgmokrz4075 [place] [address]Dr. Kalie Bess SEG % 81.0 % Critically high 43.0-75.0 [facility] Comment on above: Performed By: #### C NANCY ####[facility] Jaatpmukzo7685 [place], [place] [address]Dn. Kalie Bess WBC 17.4 103/ul Critically high 4.0-11.0 [facility] Comment on above: Performed By: #### C MEIRMAN ####[facility] Tjpufhhzqs35[address] [place] [address]Dr. Kalie Bess CRPon 11-26-2022 CRP 7.9 mg/dL Critically high <=1.0 [facility] Comment on above: Performed By: #### C RP, CMP ####[facility] Knnwfaflxf5[address] [place] [address]Dr. Kalie Bess POINT OF CARE GLUCOSEon Glucose [Mass/Vol] 348 mg/dL Critically high 74-[address] [facility] Comment on above: Performed By: #### P OCGLUC ####[facility] Wdjwuobmku27[address] [place] [address]Dr. Kalie Bess Glucose [Mass/Vol] 355 mg/dL Critically high 74-[address] [facility] Comment on above: Performed By: #### P OCGLUC ####[facility] Urnibkwqoi4855 [place] [address]Dr. Kalie Bess Glucose [Mass/Vol] 421 mg/dL Critically high 74-[address] [facility] Comment on above: Performed By: #### P OCGLUC ####[facility] Tsbhdbdcck7[address] [place], [place] [address]Dr. Kalie Bess PROF 14(COMP METB)on 023 Albumin [Mass/Vol] 1.6 g/dL Critically low 3.4-5.0 [facility] Comment on above: Performed By: #### C RP, CMP ####[facility] Snqkoqtlqh8664 [place] [address]Dr. Kalie Bess Albumin/Globulin [Mass ratio] 0.3 {ratio} Normal [facility] Comment on above: Performed By: #### C RP, CMP ####[facility] Wtgxrqxjyu2[address] [place], [place] [address]Dr. Kalie Bess ALP [Catalytic activity/Vol] 176 U/L Critically high 46-116 [facility] Comment on above: Performed By: #### C RP, CMP ####[facility] Vbyaptikuo7214[address] [place], [place] [address]Dr. Kalie Bess ALT [Catalytic activity/Vol] 32 U/L Normal 14-59 [facility] Comment on above: Performed By: #### C RP, CMP ####[facility] Kykdehwxxf437[address] [place], [place] [address]Dr. Kalie Bess Anion gap [Moles/Vol] 11.2 mmol/L Normal [facility] Comment on above: Performed By: #### C RP, CMP ####[facility] Iymaknmpoc024[address] [place], [place] [address]Dr. Kalie Bess AST [Catalytic activity/Vol] 18 U/L Normal 15-37 [facility] Comment on above: Performed By: #### C RP, CMP ####[facility] Grtbvtupff5309[address] [place], [place] [address]Dr. Kalie Shahriar Bilirubin [Mass/Vol] 0.2 mg/dL Normal 0.2-1.0 [facility] Comment on above: Performed By: #### C RP, CMP ####[facility] Jkcwcxielh560[address] [place], [place] [address]Dr. Kalie Shahriar Calcium [Mass/Vol] 8.5 mg/dL Normal 8.5-10.1 [facility] Comment on above: Performed By: #### C RP, CMP ####[facility] Icbyaputqf4749[address] [place], [place] [address]Dr. Kalie Shahriar Chloride [Moles/Vol] 102 mmol/L Normal 98-107 [facility] Comment on above: Performed By: #### C RP, CMP ####[facility] Mvloawldga6799[address] [place], [place] [address]Dr. Kalie Bess CO2 [Moles/Vol] 27.7 mmol/L Normal 21.0-32.0 [facility] Comment on above: Performed By: #### C RP, CMP ####[facility] Ejpomhkzfr9159[address] [place], [place] [address]Dr. Kalie Shahriar Creatinine [Mass/Vol] 1.24 mg/dL Critically high 0.55-1.02 [facility] Comment on above: Performed By: #### C RP, CMP ####[facility] Hmwesksgfd[address] [place], [place] [address]Dr. Kalie Bess EGFR-AF INDIAN 55 mL/min/1.73m2 Critically low >=60 [facility] Comment on above: Performed By: #### C RP, CMP ####[facility] Rectxjtkay3023 [place] [address]Dr. Kalie Bess EGFR-NON AF INDIAN 46 mL/min/1.73m2 Critically low >=60 [facility] Comment on above: Performed By: #### C RP, CMP ####[facility] Zgnbicfyym0479 [place] [address]Dr. Kalie Bess Globulin (S) [Mass/Vol] 4.6 g/dL Normal [facility] Comment on above: Performed By: #### C RP, CMP ####[facility] Jbvdrtimju4047[address] [place], [place] [address]Dr. Kalie Bess Glucose [Mass/Vol] 279 mg/dL Critically high 74-[address] [facility] Comment on above: Performed By: #### C RP, CMP ####[facility] Xnhupujyzd824[address] [place], [place] [address]Dr. Kalie Bess Potassium [Moles/Vol] 3.9 mmol/L Normal 3.5-5.1 [facility] Comment on above: Performed By: #### C RP, CMP ####[facility] Vjspiskemq8213[address] [place], [place] [address]Dr. Kalie Bess Protein [Mass/Vol] 6.2 g/dL Critically low 6.4-8.2 [facility] Comment on above: Performed By: #### C RP, CMP ####[facility] Ocyixmilda6[address] [place] [address]Dr. Kalie Bess Sodium [Moles/Vol] 137 mmol/L Normal 136-145 [facility] Comment on above: Performed By: #### C RP, CMP ####[facility] Gbfdqxunbx2447[address] [place], [place] [address]Dr. Kalie Bess Urea nitrogen [Mass/Vol] 16.0 mg/dL Normal 7.0-18.0 [facility] Comment on above: Performed By: #### C RP, CMP ####[facility] Dgkuijsvlj6605 [place] [address]Dr. Kalie Bess Urea nitrogen/Creatinine [Mass ratio] 12.9 mg/mg Normal [facility] Comment on above: Performed By: #### C RP, CMP ####[facility] Wivhyqhcdy6066 [place] [address]Dr. Kalie Shahriar SED RATE WESTERGRENon 2022 SED RATE 126 mm/hr Critically high <=30 [facility] Comment on above: Performed By: #### S EDR ####[facility] Ntgtzslfzz48[address] [place], [place] [address]Dr. Shayyroxie Bess CBC AUTO DIFFon 11-25-2022 BASO # 0.1 103/ul Normal 0.0-0.1 [facility] Comment on above: Performed By: #### C BC ####[facility] Oupdzkibax635[address] [place], [place] [address]Dr. Kalie Bess Basophils/100 WBC (Bld) 0.6 % Normal 0.2-2.0 [facility] Comment on above: Performed By: #### C BC ####[facility] Cnqzxxyafr8744[address] [place], [place] [address]Dr. Shayyroxie Bess EO # 0.6 103/ul Normal 0.0-0.7 [facility] Comment on above: Performed By: #### C BC ####[facility] Ddittrkrou7026[address] [place], [place] [address]Dr. Kalie Bess Eosinophils/100 WBC (Bld) 4.0 % Normal 0.9-7.0 [facility] Comment on above: Performed By: #### C BC ####[facility] Fxcfbiahgk785[address] [place], [place] [address]Dr. Shayyroxie Bess Erythrocyte distribution width (RBC) [Ratio] 14.4 % Normal 11.0-15.0 [facility] Comment on above: Performed By: #### C BC ####[facility] Fswnwhzfes5313[address] [place], [place] [address]Dr. Kalie Bess Hematocrit (Bld) [Volume fraction] 25.9 % Critically low 36.0-48.0 [facility] Comment on above: Performed By: #### C BC ####[facility] Ccbgdhoqss6080 [place] [address]DrCassie Bess Hemoglobin (Bld) [Mass/Vol] 8.5 g/dL Critically low 12.0-16.0 [facility] Comment on above: Performed By: #### C BC ####[facility] Oeijfdrqzr2036 [place] [address]DrCassie Bess IG # 1.05 10e3/ul Critically high 0.00-0.03 [facility] Comment on above: Performed By: #### C BC ####[facility] Zaesozidxt0410 [place] [address]DrCassie Bess IG % 6.7 % Critically high 0.0-0.5 [facility] Comment on above: Performed By: #### C BC ####[facility] Eyktopjkbn6757[address] [place], [place] [address]DrCassie Bess LYMPH # 3.2 103/ul Normal 1.2-3.8 [facility] Comment on above: Performed By: #### C BC ####[facility] Gpurevcost3884[address] [place], [place] [address]DrCassie Bess Lymphocytes/100 WBC (Bld) 20.3 % Critically low 20.5-60.0 [facility] Comment on above: Performed By: #### C BC ####[facility] Itbqcvmoyo05[address] [place], [place] [address]DrCassie Bess MANUAL DIFF REQ YES Normal [facility] Comment on above: Result Comment: Prev iously reported as: NO On 11/25/2022 06:37 By KD3 Performed By: #### C BC ####[facility] Dudgkhhbui0829[address] [place], [place] [address]DrCassie Bess MCH (RBC) [Entitic mass] 29.0 pg Normal 26.7-34.0 [facility] Comment on above: Performed By: #### C BC ####[facility] Gmktyeivpa4514[address] [place], [place] [address]DrCassie Bess MCHC (RBC) [Mass/Vol] 32.8 g/dL Normal 29.9-35.2 [facility] Comment on above: Performed By: #### C BC ####[facility] Sujmxyfzgt3694 [place] [address]Dr. Kalie Bess MCV (RBC) [Entitic vol] 88.4 fL Normal 81.0-99.0 [facility] Comment on above: Performed By: #### C BC ####[facility] Atgzoawqwl3558 [place] [address]Dr. Kalie Shahriar MONO # 1.3 103/ul Critically high 0.3-0.8 [facility] Comment on above: Performed By: #### C BC ####[facility] Geyglrsnfw5308 [place] [address]Dr. Kalie Bess Monocytes/100 WBC (Bld) 8.5 % Normal 1.7-12.0 [facility] Comment on above: Performed By: #### C BC ####[facility] Ovvpbnvxop8670 [place] [address]Dr. Kalie Shahriar NEUT # 9.4 103/ul Critically high 1.4-6.5 [facility] Comment on above: Performed By: #### C BC ####[facility] Rzirhfsuhr8[address] [place], [place] [address]Dr. Kalie Shahriar Neutrophils/100 WBC (Bld) 59.9 % Normal 43.0-75.0 [facility] Comment on above: Performed By: #### C BC ####[facility] Mmzhyrwjmm2804 [place] [address]Dr. Kalie Shahriar Platelet mean volume (Bld) [Entitic vol] 11.7 fL Normal 9.5-13.5 [facility] Comment on above: Performed By: #### C BC ####[facility] Fbpyjdewzw5622 [place] [address]Dr. Kalie Bess PLT 243 103/ul Normal 150-450 [facility] Comment on above: Performed By: #### C BC ####[facility] Ultjhxqkqq1134 [place] [address]Dr. Kalie Bess RBC 2.93 106/ul Critically low 4.20-5.40 [facility] Comment on above: Performed By: #### C BC ####[facility] Mexjbsbtsa5444 [place] [address]Dr. Kalie Bess WBC 15.6 103/ul Critically high 4.0-11.0 [facility] Comment on above: Performed By: #### C BC ####[facility] Ghpllcppvc6776 [place] [address]Dr. Kalie Bess CRPon 11-25-2022 CRP 11.0 mg/dL Critically high <=1.0 [facility] Comment on above: Performed By: #### C MP, CRP ####[facility] Qvmyzgcieh5835 [place] [address]Dr. Kalie Bess POINT OF CARE GLUCOSEon 10-28 Glucose [Mass/Vol] 187 mg/dL Critically high 74-[address] [facility] Comment on above: Performed By: #### P OCGLUC ####[facility] Vnossbjxmu4026 [place] [address]Dr. Kalie Bess Glucose [Mass/Vol] 196 mg/dL Critically high 74-[address] [facility] Comment on above: Performed By: #### P OCGLUC ####[facility] Wroeoxajyb5950 [place] [address]Dr. Kalie Bess Glucose [Mass/Vol] 234 mg/dL Critically high 74-[address] [facility] Comment on above: Performed By: #### P OCGLUC ####[facility] Fgocbhbzns7135 [place] [address]Dr. Kalie Bess Glucose [Mass/Vol] 155 mg/dL Critically high 74-[address] [facility] Comment on above: Performed By: #### P OCGLUC ####[facility] Lzstubjqeo2283 [place] [address]Dr. Kalei Shahriar PROF 14(COMP METB)on 023 Albumin [Mass/Vol] 1.6 g/dL Critically low 3.4-5.0 [facility] Comment on above: Performed By: #### C MP, CRP ####[facility] Gepyfppvgz6686 [place] [address]Dr. Kalie Bess Albumin/Globulin [Mass ratio] 0.4 {ratio} Normal [facility] Comment on above: Performed By: #### C MP, CRP ####[facility] Jpnxvzvjpw6954 [place] [address]Dr. Kalie Bess ALP [Catalytic activity/Vol] 178 U/L Critically high 46-116 [facility] Comment on above: Performed By: #### C MP, CRP ####[facility] Vrkkmestbm4356 [place] [address]Dr. Kalie Bess ALT [Catalytic activity/Vol] 40 U/L Normal 14-59 [facility] Comment on above: Performed By: #### C MP, CRP ####[facility] Oseqyrcwku0050 [place] [address]Dr. Kalie Bess Anion gap [Moles/Vol] 10.6 mmol/L Normal [facility] Comment on above: Performed By: #### C MP, CRP ####[facility] Czksfudrqj8304 [place] [address]Dr. Kalie Bess AST [Catalytic activity/Vol] 19 U/L Normal 15-37 [facility] Comment on above: Performed By: #### C MP, CRP ####[facility] Xdbhticdpe6279 [place] [address]Dr. Kalie Bess Bilirubin [Mass/Vol] 0.2 mg/dL Normal 0.2-1.0 [facility] Comment on above: Performed By: #### C MP, CRP ####[facility] Ntsddhtqti8779 [place] [address]Dr. Kalie Bess Calcium [Mass/Vol] 8.7 mg/dL Normal 8.5-10.1 [facility] Comment on above: Performed By: #### C MP, CRP ####[facility] Kzxicchjfo9544 [place] [address]Dr. Kalie Bess Chloride [Moles/Vol] 103 mmol/L Normal 98-107 [facility] Comment on above: Performed By: #### C MP, CRP ####[facility] Qwtpizqscq1117 [place] [address]Dr. Kalie Bess CO2 [Moles/Vol] 29.3 mmol/L Normal 21.0-32.0 [facility] Comment on above: Performed By: #### C MP, CRP ####[facility] Vddvumideq3816 [place] [address]Dr. Kalie Shahriar Creatinine [Mass/Vol] 1.35 mg/dL Critically high 0.55-1.02 [facility] Comment on above: Performed By: #### C MP, CRP ####[facility] Ojwymdnwzx8938[address] [place], [place] [address]Dr. Kalie Shahriar EGFR-AF INDIAN 50 mL/min/1.73m2 Critically low >=60 [facility] Comment on above: Performed By: #### C MP, CRP ####[facility] Gmfvcnbmfj3272[address] [place], [place] [address]Dr. Kalie Bess EGFR-NON AF INDIAN 41 mL/min/1.73m2 Critically low >=60 [facility] Comment on above: Performed By: #### C MP, CRP ####[facility] Oshqfkqqus2015[address] [place], [place] [address]Dr. Shayyroxie Bess Globulin (S) [Mass/Vol] 4.4 g/dL Normal [facility] Comment on above: Performed By: #### C MP, CRP ####[facility] Pifrawhfwu8727 [place] [address]Dr. Kalie Bess Glucose [Mass/Vol] 170 mg/dL Critically high 74-106 [facility] Comment on above: Performed By: #### C MP, CRP ####[facility] Ejedwnghem2601[address] [place], [place] [address]Dr. Shayyroxie Bess Potassium [Moles/Vol] 3.9 mmol/L Normal 3.5-5.1 [facility] Comment on above: Performed By: #### C MP, CRP ####[facility] Rfstitxrhe027[address] [place], [place] [address]Dr. Kalie Bess Protein [Mass/Vol] 6.0 g/dL Critically low 6.4-8.2 Th e [facility] Comment on above: Performed By: #### C MP, CRP ####[facility] Lmvioxqmdr[address] [place], [place] [address]Dr. Kalie Bess Sodium [Moles/Vol] 139 mmol/L Normal 136-145 [facility] Comment on above: Performed By: #### C MP, CRP ####[facility] Esgpltutkq[address] [place], [place] [address]Dr. Kalie Bess Urea nitrogen [Mass/Vol] 18.0 mg/dL Normal 7.0-18.0 [facility] Comment on above: Performed By: #### C MP, CRP ####[facility] [address]sogxmqxdk08[address] [place], [place] [address]Dr. Kalie Bess Urea nitrogen/Creatinine [Mass ratio] 13.3 mg/mg Normal [facility] Comment on above: Performed By: #### C MP, CRP ####[facility] Tppowaezya[address] [place], [place] [address]Dr. Kalie Bess [facility] 130 mm/hr Critically high <=30 [facility] Comment on above: Performed By: #### S EDR ####[facility] Qudbwesaml[address] [place], [place] [address]Dr. Kalie Bess CBC W MANUAL DIFFon 11-24-19 23 ATYPICAL LYMPH # 0.16 103/ul Normal [facility] Comment on above: Performed By: #### C BCMAN ####[facility] Epwmrlqcny72[address] [place], [place] [address]Dr. Kalie Bess ATYPICAL LYMPH % 1 % Normal [facility] Comment on above: Performed By: #### C BCMAN ####[facility] Kwgiojkptm8375[address] [place], [place] [address]Dr. Kalie Bess BAND # 0.3 103/ul Normal 0.0-0.3 [facility] Comment on above: Performed By: #### C BCMAN ####[facility] Qsqmrjnavk[address] [place], [place] [address]Dr. Yilan Bess BAND % 2 % Normal 0-5 The [facility] Comment on above: Performed By: #### C BCMAN ####[facility] Qbniikvpcy8150 [place] [id number]. Kalie Bess BASOM # 0.00 103/ul Normal 0.00-0.10 [facility] Comment on above: Performed By: #### C BCMAN ####[facility] Opcxecwfwe7107 [place] [address]Dr. Kalie Bess BASOM % 0.0 % Critically low 0.2-2.0 The [facility] Comment on above: Performed By: #### C BCMAN ####[facility] Lnaswvbarp3946 [place] [address]Dr. Kalie Bess BLAST # Normal [facility] Comment on above: Performed By: #### C NANCY ####[facility] Jbmzddgonk9060 [place] [address]Dr. Kalie Bess BLAST % Normal [facility] Comment on above: Performed By: #### C BCGABRIELLA ####[facility] Wzarombegv6863 [place] [address]Dr. Kalie Bess CORRECTED WBC Normal 4.0-11.0 The [facility] Comment on above: Performed By: #### C BCGABRIELLA ####[facility] Wsnwsejlme8519 [place] [address]Dr. Kalie Bess EOS # 1.42 103/ul Critically high 0.00-0.70 [facility] Comment on above: Performed By: #### C BCGABRIELLA ####[facility] Kibuksoaax2769 [place] [address]Dr. Kalie Bess EOS% 9.0 % Critically high 0.9-7.0 [facility] Comment on above: Performed By: #### C BCGABRIELLA ####[facility] Rwjumhnxsv7917 [place] [address]Dr. Kalie Bess HCT 27.8 % Critically low 36.0-48.0 The [facility] Comment on above: Performed By: #### C BCGABRIELLA ####[facility] Bfadwmmvsr1195 [place] [address]Dr. Kalie Bess HGB 9.6 g/dl Critically low 12.0-16.0 The [facility] Comment on above: Performed By: #### C NANCY ####[facility] Xmrwweoypq4136 [place] [address]Dr. Kalie Bess LYMPHM # 2.69 103/ul Normal 1.20-3.80 [facility] Comment on above: Performed By: #### C NANCY ####[facility] Wqysymykty9665 [place] [address]Dr. Kalie Bess LYMPHM% 17.0 % Critically low 20.5-60.0 The [facility] Comment on above: Performed By: #### Marisela CRUZ ####[facility] Iivavrovkn6394 [place] [address]Dr. Kalie Bess MCH 29.1 pg Normal 26.7-34.0 The [facility] Comment on above: Performed By: #### Marisela CRUZ ####[facility] Nzkoccawpu7781 [place] [address]Dr. Kalie Bess MCHC 34.5 g/dl Normal 29.9-35.2 The [facility] Comment on above: Performed By: #### Marisela CRUZ ####[facility] Hkzowzcegg9077 [place] [address]Dr. Kalie Bess MCV 84.2 fL Normal 81.0-99.0 The [facility] Comment on above: Performed By: #### Marisela CRUZ ####[facility] Smfdpbebae3653 [place] [address]Dr. Kalie Bess METAMYELOCYTE # 0.0 103/ul Normal [facility] Comment on above: Performed By: #### Marisela CRUZ ####[facility] Tklpywsqzv9117 [place] [address]Dr. Kalie Bess METAMYELOCYTE % 0 % Normal [facility] Comment on above: Performed By: #### C NANCY ####[facility] Grenkivwfm3246 [place] [address]Dr. Kalie Bess MONOM# 0.47 103/ul Normal 0.30-0.80 The [facility] Comment on above: Performed By: #### C NANCY ####[facility] Poczydxmgx3978 [place] [address]Dr. Kalie Bess MONOM% 3.0 % Normal 1.7-12.0 [facility] Comment on above: Performed By: #### C NANCY ####[facility] Fuzvlcknlm8990 [place] [address]Dr. Kalie Bess MPV 11.5 fL Normal 9.5-13.5 [facility] Comment on above: Performed By: #### C NANCY ####[facility] Pvqhaypgds5229 [place] [address]Dr. Kalie Bess MYELOCYTE # Normal [facility] Comment on above: Performed By: #### C NANCY ####[facility] Nyjrlxeqwk9057 [place] [address]Dr. Kalie Bess MYELOCYTE % Normal [facility] Comment on above: Performed By: #### C NANCY ####[facility] Gbhpkelgii1909 [place] [address]Dr. Kalie Bess NRBC Normal [facility] Comment on above: Performed By: #### C NANCY ####[facility] Phfbplfogk4705 [place] [address]Dr. Kalie Bess PLT 220 103/ul Normal 150-450 The [facility] Comment on above: Performed By: #### C NANCY ####[facility] Xdbwfpblbq2735 [place] [address]Dr. Kalie Bess RBC 3.30 106/ul Critically low 4.20-5.40 [facility] Comment on above: Performed By: #### C NANCY ####[facility] Habhairwmq7844 [place] [address]Dr. Kalie Bess RDW 14.2 % Normal 11.0-15.0 [facility] Comment on above: Performed By: #### C NANCY ####[facility] Zmrwrmrrjd1445 [place] [address]Dr. Shayyroxie Bess SEG # 10.74 103/ul Critically high 1.40-6.50 [facility] Comment on above: Performed By: #### C BCMAN ####[facility] Knlinbwdlt5160 [place] [address]Dr. Kalie Bess SEG % 68.0 % Normal 43.0-75.0 [facility] Comment on above: Performed By: #### C BCMAN ####[facility] Jartdetkfw7990 [place] [address]Dr. Kalie Bess WBC 15.8 103/ul Critically high 4.0-11.0 [facility] Comment on above: Performed By: #### C BCMAN ####[facility] Ecwqteypqt0079 [place] [address]Dr. Kalie Bess CRPon 11-24-2022 CRP 18.2 mg/dL Critically high <=1.0 [facility] Comment on above: Performed By: #### C MP, CRP ####[facility] Dwndgmtils8735 [place] [address]Dr. Kalie Bess POINT OF CARE GLUCOSEon 10-28 Glucose [Mass/Vol] 277 mg/dL Critically high 74-[address] [facility] Comment on above: Performed By: #### P OCGLUC ####[facility] Sywlhbiltd9714 [place] [address]Dr. Kalie Bess Glucose [Mass/Vol] 268 mg/dL Critically high 74-[address] [facility] Comment on above: Performed By: #### P OCGLUC ####[facility] Zzoxbrkjbs3042 [place] [address]Dr. Kalie Bess Glucose [Mass/Vol] 337 mg/dL Critically high 74-[address] [facility] Comment on above: Performed By: #### P OCGLUC ####[facility] Hujuihnkod6111 [place] [address]Dr. Kalie Bess Glucose [Mass/Vol] 366 mg/dL Critically high -[address] [facility] Comment on above: Performed By: #### P OCGLUC ####[facility] Psboisgmqj2547 [place] [address]Dr. Shayyroxie Bess PROF 14(COMP METB)on 023 Albumin [Mass/Vol] 1.8 g/dL Critically low 3.4-5.0 Th [facility] Comment on above: Performed By: #### C MP, CRP ####[facility] Qrccsvhzhm8202 [place] [address]Dr. Kalie Bess Albumin/Globulin [Mass ratio] 0.4 {ratio} Normal [facility] Comment on above: Performed By: #### C MP, CRP ####[facility] Kwunszdzbt7702 [place] [address]Dr. Kalie Bess ALP [Catalytic activity/Vol] 235 U/L Critically high 46-116 [facility] Comment on above: Performed By: #### C MP, CRP ####[facility] Pedwzapwvu5180 [place] [address]Dr. Kalie Bess ALT [Catalytic activity/Vol] 60 U/L Critically high 14-59 [facility] Comment on above: Performed By: #### C MP, CRP ####[facility] Thtrmehtiz5236 [place] [address]Dr. Kalie Bess Anion gap [Moles/Vol] 10.2 mmol/L Normal [facility] Comment on above: Performed By: #### C MP, CRP ####[facility] Gzybjhpgii[address] [place], [place] [address]Dr. Kalie Bess AST [Catalytic activity/Vol] 32 U/L Normal 15-37 [facility] Comment on above: Performed By: #### C MP, CRP ####[facility] Wdlyasnfzs7959 [place] [address]Dr. Kalie Bess Bilirubin [Mass/Vol] 0.3 mg/dL Normal 0.2-1.0 [facility] Comment on above: Performed By: #### C MP, CRP ####[facility] Cuumpiagzk1824[address] [place], [place] [address]Dr. Kalie Bess Calcium [Mass/Vol] 9.0 mg/dL Normal 8.5-10.1 [facility] Comment on above: Performed By: #### C MP, CRP ####[facility] Ninnmqxguo8933 [place] [address]Dr. Kalie Bess Chloride [Moles/Vol] 100 mmol/L Normal 98-107 The [facility] Comment on above: Performed By: #### C MP, CRP ####[facility] Medmplbtkp298[address] [place], [place] [address]Dr. Kalie Bess CO2 [Moles/Vol] 29.0 mmol/L Normal 21.0-32.0 [facility] Comment on above: Performed By: #### C MP, CRP ####[facility] Begmzavqsm4192[address] [place], [place] [address]Dr. Kalie Bess Creatinine [Mass/Vol] 1.21 mg/dL Critically high 0.55-1.02 [facility] Comment on above: Performed By: #### C MP, CRP ####[facility] Vikfrjwasr817[address] [place], [place] [address]Dr. Kalie Bess EGFR-AF INDIAN 57 mL/min/1.73m2 Critically low >=60 [facility] Comment on above: Performed By: #### C MP, CRP ####[facility] Dcyjzkxdlr2256[address] [place], [place] [address]Dr. Kalie Bess EGFR-NON AF INDIAN 47 mL/min/1.73m2 Critically low >=60 The [facility] Comment on above: Performed By: #### C MP, CRP ####[facility] Oaeiylhxyi2005[address] [place], [place] [address]Dr. Kalie Bess Globulin (S) [Mass/Vol] 5.0 g/dL Normal [facility] Comment on above: Performed By: #### C MP, CRP ####[facility] Apyngesfgz7848[address] [place], [place] [address]Dr. Kalie Bess Glucose [Mass/Vol] 339 mg/dL Critically high 74-[address] [facility] Comment on above: Performed By: #### C MP, CRP ####[facility] Aegyxeyscl5175[address] [place], [place] [address]Dr. Kalie Bess Potassium [Moles/Vol] 4.2 mmol/L Normal 3.5-5.1 The [facility] Comment on above: Performed By: #### C MP, CRP ####[facility] Olwydbqexo7013 [place] [address]Dr. Kalie Bess Protein [Mass/Vol] 6.8 g/dL Normal 6.4-8.2 [facility] Comment on above: Performed By: #### C MP, CRP ####[facility] Gpgkxvdcqe4930 [place] [address]Dr. Kalie Bess Sodium [Moles/Vol] 135 mmol/L Critically low 136-145 Th [facility] Comment on above: Performed By: #### C MP, CRP ####[facility] Bwptcvbriw2324 [place] [address]Dr. Kalie Bess Urea nitrogen [Mass/Vol] 24.0 mg/dL Critically high 7.0-18.0 [facility] Comment on above: Performed By: #### C MP, CRP ####[facility] Znxwwrwbcv427[address] [place], [place] [address]Dr. Kalie Bess Urea nitrogen/Creatinine [Mass ratio] 19.8 mg/mg Normal [facility] Comment on above: Performed By: #### C MP, CRP ####[facility] Oscrmzgnln2937[address] [place], [place] [address]Dr. Kalie Bess [facility] SED [facility] >130 Critically high <=30 [facility] Comment on above: Performed By: #### S EDR ####[facility] Ygrncovabk55[address] [place], [place] [address]Dr. Kalie Bess US BREAST LEFT COMPLETEon US BREAST LEFT COMPLETE Normal [facility] XR CHEST 1 Von 11-24-2022 XR CHEST 1 V Normal [facility] CBC AUTO DIFFon 11-23-2022 BASO # 0.1 103/ul Normal 0.0-0.1 [facility] Comment on above: Performed By: #### C BC ####[facility] Csfgrfyfuv5211[address] [place], [place] [address]Dr. Kalie Bess Basophils/100 WBC (Bld) 0.4 % Normal 0.2-2.0 [facility] Comment on above: Performed By: #### C BC ####[facility] Ozrugwwwey8096 [place] [address]Dr. Kalie Bess EO # 0.7 103/ul Normal 0.0-0.7 [facility] Comment on above: Performed By: #### C BC ####[facility] Ovxoxgayoh1441 [place] [address]Dr. Kalie Bess Eosinophils/100 WBC (Bld) 4.5 % Normal 0.9-7.0 [facility] Comment on above: Performed By: #### C BC ####[facility] Jweftdfbnn8374[address] [place], [place] [address]Dr. Kalie Bess Erythrocyte distribution width (RBC) [Ratio] 14.0 % Normal 11.0-15.0 [facility] Comment on above: Performed By: #### C BC ####[facility] Jbqvxdyleb299[address] [place], [place] [address]Dr. Kalie Bess Hematocrit (Bld) [Volume fraction] 23.8 % Critically low 36.0-48.0 [facility] Comment on above: Performed By: #### C BC ####[facility] Qsiberkizn5728[address] [place], [place] [address]Dr. Kalie Bess Hemoglobin (Bld) [Mass/Vol] 8.4 g/dL Critically low 12.0-16.0 [facility] Comment on above: Performed By: #### C BC ####[facility] Hkzcykysed386[address] [place], [place] [address]Dr. Kalie Bess IG # 0.30 10e3/ul Critically high 0.00-0.03 [facility] Comment on above: Performed By: #### C BC ####[facility] Anvgjcdvvh1694[address] [place], [place] [address]Dr. Kalie Bess IG % 2.1 % Critically high 0.0-0.5 [facility] Comment on above: Performed By: #### C BC ####[facility] Umvrjqkcok6359[address] [place], [place] [address]Dr. Kalie Bess LYMPH # 2.3 103/ul Normal 1.2-3.8 [facility] Comment on above: Performed By: #### C BC ####[facility] Vqfvtheqeq3800 [place] [address]Dr. Kalie Bess Lymphocytes/100 WBC (Bld) 15.6 % Critically low 20.5-60.0 [facility] Comment on above: Performed By: #### C BC ####[facility] Owmufammcu5352 [place] [address]Dr. Kalie Bess MANUAL DIFF REQ NO Normal [facility] Comment on above: Performed By: #### C BC ####[facility] Vioaxfpvka4987 [place] [address]Dr. Kalie Bess MCH (RBC) [Entitic mass] 29.3 pg Normal 26.7-34.0 [facility] Comment on above: Performed By: #### C BC ####[facility] Fawjiivyyx0782[address] [place], [place] [address]Dr. Kalie Bess MCHC (RBC) [Mass/Vol] 35.3 g/dL Critically high 29.9-35.2 [facility] Comment on above: Performed By: #### C BC ####[facility] Bmcouppqek682[address] [place], [place] [address]Dr. Kalie Bess MCV (RBC) [Entitic vol] 82.9 fL Normal 81.0-99.0 [facility] Comment on above: Performed By: #### C BC ####[facility] Pkvgwiafqk3[address] [place], [place] [address]Dr. Kalie Bess MONO # 1.4 103/ul Critically high 0.3-0.8 [facility] Comment on above: Performed By: #### C BC ####[facility] Hzpiuuujpb833[address] [place], [place] [address]Dr. Kalie Bess Monocytes/100 WBC (Bld) 9.3 % Normal 1.7-12.0 [facility] Comment on above: Performed By: #### C BC ####[facility] Qolrodnhxf7405[address] [place], [place] [address]Dr. Kalie Bess NEUT # 10.0 103/ul Critically high 1.4-6.5 [facility] Comment on above: Performed By: #### C BC ####[facility] Yqhzkyhwef9204 [place] [address]Dr. Kalie Bess Neutrophils/100 WBC (Bld) 68.1 % Normal 43.0-75.0 [facility] Comment on above: Performed By: #### C BC ####[facility] Mhmszrjlxk9274 [place] [address]Dr. Kalie Bess Platelet mean volume (Bld) [Entitic vol] 12.1 fL Normal 9.5-13.5 [facility] Comment on above: Performed By: #### C BC ####[facility] Ogpoklqutq2015 [place] [address]Dr. Kalie Bess PLT 167 103/ul Normal 150-450 [facility] Comment on above: Performed By: #### C BC ####[facility] Jmjcqyklku8045 [place] [address]Dr. Kalie Bess RBC 2.87 106/ul Critically low 4.20-5.40 [facility] Comment on above: Performed By: #### C BC ####[facility] Wfufpeymle7685 [place] [address]Dr. Kalie Bess WBC 14.6 103/ul Critically high 4.0-11.0 [facility] Comment on above: Performed By: #### C BC ####[facility] Erdywwbzzm5146 [place] [address]Dr. Kalie Bess CRPon 11-23-2022 CRP 47.3 mg/dL Critically high <=1.0 [facility] Comment on above: Performed By: #### C RP, CMP ####[facility] Oauyueaszv9411 [place] [address]Dr. Kalie Bess H PYLORI ANTIBODY IGGon 10-27 H. PYLORI IGG ABS 0.14 Index Value Normal 0.00-0.[address] [facility] Comment on above: Result Comment: Nega tive <0.80 Equivocal 0.80 - 0.89 Positive >0.89 Performed By: #### H PYLLC ####[facility] Pfextcockr1950 [place] [address]Dr. Kalie Bess OCC BLD IMMUNO SCREENon 10-27 OCCULT BLOOD Negative Normal NEGATIVE [facility] Comment on above: Performed By: #### O BSCRN ####[facility] Mpolcflipc0095 [place] [address]Dr. Kalie Bess POINT OF CARE GLUCOSEon 10-27 Glucose [Mass/Vol] 450 mg/dL Critically high 74-[address] [facility] Comment on above: Performed By: #### P OCGLUC ####[facility] Mlyanjirxc6873 [place] [address]Dr. Kalie Bess Glucose [Mass/Vol] 328 mg/dL Critically high 74-[address] [facility] Comment on above: Performed By: #### P OCGLUC ####[facility] Fqqqhnipyl5480 [place] [address]Dr. Kalie Bess Glucose [Mass/Vol] 268 mg/dL Critically high 74-[address] [facility] Comment on above: Performed By: #### P OCGLUC ####[facility] Wlomcwszpf6985 [place] [address]Dr. Klaie Bess Glucose [Mass/Vol] 206 mg/dL Critically high 74-[address] [facility] Comment on above: Performed By: #### P OCGLUC ####[facility] Beqsaiqrbu6997 [place] [address]Dr. Shayyroxie Shahriar PROF 14(COMP METB)on 023 Albumin [Mass/Vol] 1.6 g/dL Critically low 3.4-5.0 [facility] Comment on above: Performed By: #### C RP, CMP ####[facility] Duglrqeemd9799 [place] [address]Dr. Kalie Shahriar Albumin/Globulin [Mass ratio] 0.4 {ratio} Normal [facility] Comment on above: Performed By: #### C RP, CMP ####[facility] Adgvqklbrr0121 [place] [address]Dr. Kalie Bess ALP [Catalytic activity/Vol] 202 U/L Critically high 46-116 [facility] Comment on above: Performed By: #### C RP, CMP ####[facility] Ftwjxojsvk3190 [place] [address]Dr. Kalie Bess ALT [Catalytic activity/Vol] 63 U/L Critically high 14-59 [facility] Comment on above: Performed By: #### C RP, CMP ####[facility] Glxvyzjosl5406 [place] [address]Dr. Kalie Bess Anion gap [Moles/Vol] 12.7 mmol/L Normal [facility] Comment on above: Performed By: #### C RP, CMP ####[facility] Yskxsnezsp9305[address] [place], [place] [address]Dr. Kalie Bess AST [Catalytic activity/Vol] 69 U/L Critically high 15-37 [facility] Comment on above: Performed By: #### C RP, CMP ####[facility] Nwermundyc633[address] [place], [place] [address]Dr. Shayyroxie Bess Bilirubin [Mass/Vol] 0.2 mg/dL Normal 0.2-1.0 [facility] Comment on above: Performed By: #### C RP, CMP ####[facility] Fxrmaaflxq13[address] [place], [place] [address]Dr. Kalie Shahriar Calcium [Mass/Vol] 8.6 mg/dL Normal 8.5-10.1 [facility] Comment on above: Performed By: #### C RP, CMP ####[facility] Iddivcpqkg696[address] [place], [place] [address]Dr. Kalie Shahriar Chloride [Moles/Vol] 99 mmol/L Normal 98-107 [facility] Comment on above: Performed By: #### C RP, CMP ####[facility] Yxgwhknnmy8712[address] [place], [place] [address]Dr. Kalie Shahriar CO2 [Moles/Vol] 27.2 mmol/L Normal 21.0-32.0 [facility] Comment on above: Performed By: #### C RP, CMP ####[facility] Rbfeydndxr6975[address] [place], [place] [address]Dr. Shayyroxie Bess Creatinine [Mass/Vol] 1.59 mg/dL Critically high 0.55-1.02 [facility] Comment on above: Performed By: #### C RP, CMP ####[facility] Asjsddjxlh5537 [place] [address]Dr. Shayyroxie Shahriar EGFR-AF INDIAN 41 mL/min/1.73m2 Critically low >=60 [facility] Comment on above: Performed By: #### C RP, CMP ####[facility] Vrkhiwfzjz6099 [place] [address]Dr. Kalie Bess EGFR-NON AF INDIAN 34 mL/min/1.73m2 Critically low >=60 [facility] Comment on above: Performed By: #### C RP, CMP ####[facility] Bxqfgzraza05[address] [place], [place] [address]Dr. Kalie Bess Globulin (S) [Mass/Vol] 4.5 g/dL Normal [facility] Comment on above: Performed By: #### C RP, CMP ####[facility] Ifkeavpvst8339[address] [place], [place] [address]Dr. Kalie Bess Glucose [Mass/Vol] 119 mg/dL Critically high 74-106 [facility] Comment on above: Performed By: #### C RP, CMP ####[facility] Ysaanxbuki220[address] [place], [place] [address]Dr. Kalie Bess Potassium [Moles/Vol] 3.9 mmol/L Normal 3.5-5.1 [facility] Comment on above: Performed By: #### C RP, CMP ####[facility] Wlumxjtizp[address] [place], [place] [address]Dr. Kalie Bess Protein [Mass/Vol] 6.1 g/dL Critically low 6.4-8.2 Th [facility] Comment on above: Performed By: #### C RP, CMP ####[facility] Vdiudvevou[address] [place], [place] [address]Dr. Kalie Bess Sodium [Moles/Vol] 135 mmol/L Critically low 136-145 Th [facility] Comment on above: Performed By: #### C RP, CMP ####[facility] Fryaxdjkxv9[address] [place], [place] [address]Dr. Kalie Bess Urea nitrogen [Mass/Vol] 36.0 mg/dL Critically high 7.0-18.0 The [facility] Comment on above: Performed By: #### C RP, CMP ####[facility] Afoiyysudm[address] [place], [place] [address]Dr. Kalie Bess Urea nitrogen/Creatinine [Mass ratio] 22.6 mg/mg Normal The [facility] Comment on above: Performed By: #### C RP, CMP ####[facility] Pwfolzrvrr[address] [place], [place] [address]Dr. Kalie Bess SED RATE WESTERGRENon 2022 SED RATE >130 Critically high <=30 The [facility] Comment on above: Performed By: #### S EDR ####[facility] Uzjwtezzpi66[address] [place], [place] [address]Dr. Kalie Bess CBC AUTO DIFFon 11-22-2022 BASO # 0.1 103/ul Normal 0.0-0.1 The [facility] Comment on above: Performed By: #### C BC ####[facility] Levdidozal14[address] [place], [place] [address]Dr. Kalie Shahriar Basophils/100 WBC (Bld) 0.5 % Normal 0.2-2.0 The [facility] Comment on above: Performed By: #### C BC ####[facility] Vygxluonov[address] [place], [place] [address]Dr. Kalie Bess EO # 0.8 103/ul Critically high 0.0-0.7 The [facility] Comment on above: Performed By: #### C BC ####[facility] Xxaaffvplg4536[address] [place], [place] [address]Dr. Kalie Bess Eosinophils/100 WBC (Bld) 5.2 % Normal 0.9-7.0 The [facility] Comment on above: Performed By: #### C BC ####[facility] Wcrpnwrqff7036[address] [place], [place] [address]Dr. Kalie Bess Erythrocyte distribution width (RBC) [Ratio] 13.8 % Normal 11.0-15.0 The [facility] Comment on above: Performed By: #### C BC ####[facility] Mgwdgenppr4[address] [place] [address]Dr. Kalie Bess Hematocrit (Bld) [Volume fraction] 27.0 % Critically low 36.0-48.0 The [facility] Comment on above: Performed By: #### C BC ####[facility] Xkftjpyxks9899 [place] [address]Dr. Kalie Bess Hemoglobin (Bld) [Mass/Vol] 9.4 g/dL Critically low 12.0-16.0 The [facility] Comment on above: Performed By: #### C BC ####[facility] Onipmlbysl27[address] [place] [address]Dr. Kalie Bess IG # 0.23 10e3/ul Critically high 0.00-0.03 [facility] Comment on above: Performed By: #### C BC ####[facility] Gnkvorjbrs2888[address] [place], [place] [address]Dr. Kalie Bess IG % 1.4 % Critically high 0.0-0.5 [facility] Comment on above: Performed By: #### C BC ####[facility] Urzwavowps5063 [place] [address]Dr. Kalie Bess LYMPH # 2.2 103/ul Normal 1.2-3.8 The [facility] Comment on above: Performed By: #### C BC ####[facility] Doxwewmorj8853 [place] [address]Dr. Kalie Bess Lymphocytes/100 WBC (Bld) 13.6 % Critically low 20.5-60.0 The [facility] Comment on above: Performed By: #### C BC ####[facility] Ovnmkweqql7246 [place] [address]Dr. Kalie Bess MANUAL DIFF REQ NO Normal The [facility] Comment on above: Performed By: #### C BC ####[facility] Aowqrzxitt4964[address] [place], [place] [address]Dr. Kalie Bess MCH (RBC) [Entitic mass] 28.8 pg Normal 26.7-34.0 The [facility] Comment on above: Performed By: #### C BC ####[facility] Yzytziuczr9847 [place] [id number]. Kalie Bess MCHC (RBC) [Mass/Vol] 34.8 g/dL Normal 29.9-35.2 The [facility] Comment on above: Performed By: #### C BC ####[facility] Chovnmjesm3517 [place] [address]Dr. Kalie Bess MCV (RBC) [Entitic vol] 82.8 fL Normal 81.0-99.0 The [facility] Comment on above: Performed By: #### C BC ####[facility] Uugckwctmw[address] [place], [place] [address]Dr. Kalie Shahriar MONO # 1.2 103/ul Critically high 0.3-0.8 The [facility] Comment on above: Performed By: #### C BC ####[facility] Uarqjtmkuw2184[address] [place], [place] [address]Dr. Kalie Bess Monocytes/100 WBC (Bld) 7.3 % Normal 1.7-12.0 The [facility] Comment on above: Performed By: #### C BC ####[facility] Pvelqkvvuf[address] [place], [place] [address]Dr. Kalie Bess NEUT # 11.7 103/ul Critically high 1.4-6.5 The [facility] Comment on above: Performed By: #### C BC ####[facility] Zirfowseat034[address] [place], [place] [address]Dr. Kalie Bess Neutrophils/100 WBC (Bld) 72.0 % Normal 43.0-75.0 The [facility] Comment on above: Performed By: #### C BC ####[facility] Vibwsdclnc[address] [place], [place] [address]Dr. Kalie Bess Platelet mean volume (Bld) [Entitic vol] 12.5 fL Normal 9.5-13.5 The [facility] Comment on above: Performed By: #### C BC ####[facility] Dgbeiyxoee008[address] [place], [place] [address]Dr. Kalie Bess PLT 153 103/ul Normal 150-450 The [facility] Comment on above: Performed By: #### C BC ####[facility] Yfsorgldxq3919 [place] [address]Dr. Kalie Bess RBC 3.26 106/ul Critically low 4.20-5.40 [facility] Comment on above: Performed By: #### C BC ####[facility] Pcqgkcqgyd3982 [place] [address]Dr. Kalie Bess WBC 16.2 103/ul Critically high 4.0-11.0 [facility] Comment on above: Performed By: #### C BC ####[facility] Mdddcdtvfn0318 [place] [address]Dr. Kalie Bess CRPon 11-22-2022 CRP [Mass/Vol] mg/L Normal <=1.0 [facility] Comment on above: Performed By: #### C RP, CMP ####[facility] Bbwvzdyazd6332 [place] [address]Dr. Kalie Bess POINT OF CARE GLUCOSEon 10-27 Glucose [Mass/Vol] 179 mg/dL Critically high [address] [place] [address] Comment on above: Performed By: #### P OCGLUC ####[facility] Pirzzlaolx1770 [place] [address]Dr. Kalie Bess Glucose [Mass/Vol] 110 mg/dL Critically high [address] [place] [address] Comment on above: Performed By: #### P OCGLUC ####[facility] Zmzydkyjyq6909 [place] [address]Dr. Kalie Bess Glucose [Mass/Vol] 258 mg/dL Critically high [address] [place] [address] Comment on above: Performed By: #### P OCGLUC ####[facility] Qzeyxduaqq4876 [place] [address]Dr. Kalie Bess Glucose [Mass/Vol] 216 mg/dL Critically high [address] [place] [address] Comment on above: Performed By: #### P OCGLUC ####[facility] Uuyptnpgke6495 [place] [address]Dr. Kalie Bess PROF 14(COMP METB)on 023 Albumin [Mass/Vol] 1.8 g/dL Critically low 3.4-5.0 Th [facility] Comment on above: Performed By: #### C RP, CMP ####[facility] Odbardbdfs7277 [place] [address]Dr. Kalie Bess Albumin/Globulin [Mass ratio] 0.4 {ratio} Normal [facility] Comment on above: Performed By: #### C RP, CMP ####[facility] Gyjetitoxp9314 [place] [address]Dr. Kalie Shahriar ALP [Catalytic activity/Vol] 117 U/L Critically high 46-116 [facility] Comment on above: Performed By: #### C RP, CMP ####[facility] Kcwbanrgnl4962 [place] [address]Dr. Kalie Shahriar ALT [Catalytic activity/Vol] 30 U/L Normal 14-59 [facility] Comment on above: Performed By: #### C RP, CMP ####[facility] Vjnpaurrxg6128 [place] [address]Dr. Shayyroxie Shahriar Anion gap [Moles/Vol] 12.9 mmol/L Normal [facility] Comment on above: Performed By: #### C RP, CMP ####[facility] Qzczzsmybq4436 [place] [address]Dr. Kalie Shahriar AST [Catalytic activity/Vol] 20 U/L Normal 15-37 [facility] Comment on above: Performed By: #### C RP, CMP ####[facility] Lylqgvbijt9308 [place] [address]Dr. Kalie Bess Bilirubin [Mass/Vol] 0.3 mg/dL Normal 0.2-1.0 [facility] Comment on above: Performed By: #### C RP, CMP ####[facility] Stzbxzfhfk8507 [place] [address]Dr. Kalie Bess Calcium [Mass/Vol] 8.5 mg/dL Normal 8.5-10.1 [facility] Comment on above: Performed By: #### C RP, CMP ####[facility] Ykzmoztfly9856 [place] [address]Dr. Kalie Bess Chloride [Moles/Vol] 97 mmol/L Critically low 98-107 [facility] Comment on above: Performed By: #### C RP, CMP ####[facility] Wnihkmxdoq2495[address] [place], [place] [address]Dr. Kalie Bess CO2 [Moles/Vol] 26.1 mmol/L Normal 21.0-32.0 [facility] Comment on above: Performed By: #### C RP, CMP ####[facility] Cscxqutzva[address] [place], [place] [address]Dr. Kalie Bess Creatinine [Mass/Vol] 1.72 mg/dL Critically high 0.55-1.02 [facility] Comment on above: Performed By: #### C RP, CMP ####[facility] Qhzoqhftcj[address] [place], [place] [address]Dr. Kalie Bess EGFR-AF INDIAN 38 mL/min/1.73m2 Critically low >=60 [facility] Comment on above: Performed By: #### C RP, CMP ####[facility] Wbvpdacxes4404[address] [place], [place] [address]Dr. Kalie Bess EGFR-NON AF INDIAN 31 mL/min/1.73m2 Critically low >=60 [facility] Comment on above: Performed By: #### C RP, CMP ####[facility] Ffxkbcjakj2104[address] [place], [place] [address]Dr. Kalie Bess Globulin (S) [Mass/Vol] 4.5 g/dL Normal [facility] Comment on above: Performed By: #### C RP, CMP ####[facility] Uzsykxchqs6799[address] [place], [place] [address]Dr. Kalie Bess Glucose [Mass/Vol] 230 mg/dL Critically high 74-[address] [facility] Comment on above: Performed By: #### C RP, CMP ####[facility] Qwqtyeivkr9637[address] [place], [place] [address]Dr. Kalie Bess Potassium [Moles/Vol] 4.0 mmol/L Normal 3.5-5.1 [facility] Comment on above: Performed By: #### C RP, CMP ####[facility] Citqzxbiye006[address] [place], [place] [address]Dr. Kalie Bess Protein [Mass/Vol] 6.3 g/dL Critically low 6.4-8.2 Th [facility] Comment on above: Performed By: #### C RP, CMP ####[facility] Trgeqkxtpm5089 [place] [address]Dr. Kalie Bess Sodium [Moles/Vol] 132 mmol/L Critically low 136-145 Th [facility] Comment on above: Performed By: #### C RP, CMP ####[facility] Pytfmtkjei1642[address] [place], [place] [address]Dr. Kalie Bess Urea nitrogen [Mass/Vol] 45.0 mg/dL Critically high 7.0-18.0 [facility] Comment on above: Performed By: #### C RP, CMP ####[facility] Lgahrmtdpn6[address] [place], [place] [address]Dr. Kalie Bess Urea nitrogen/Creatinine [Mass ratio] 26.2 mg/mg Normal [facility] Comment on above: Performed By: #### C RP, CMP ####[facility] Lysqakkwcw5512[address] [place], [place] [address]Dr. Kalie Shahriar SED RATE WESTERGRENon 2022 SED RATE 95 mm/hr Critically high <=30 [facility] Comment on above: Performed By: #### S EDR ####[facility] Xswuhnfjvk[address] [place], [place] [address]Dr. Kalie Shahriar US BREAST LEFT LIMITEDon US BREAST LEFT LIMITED Normal The [facility] ACETONE SERUMon 11-21-2022 ACETONE Negative Normal NEGATIVE The [facility] Comment on above: Performed By: #### A CETON ####[facility] Uvexltyiek6986[address] [place], [place] [address]Dr. Kalie Shahriar CBC W MANUAL DIFFon 11-21-19 23 ANISOCYTOSIS SLIGHT Normal [facility] Comment on above: Performed By: #### C BCMAN ####[facility] Avrqvavegd5983 [place] [address]Dr. Shayyroxie Shahriar ATYPICAL LYMPH # Normal [facility] Comment on above: Performed By: #### C BCMAN ####[facility] Tjxbyodusd8796 [place] [address]Dr. Kalie Bess ATYPICAL LYMPH % Normal [facility] Comment on above: Performed By: #### C BCMAN ####[facility] Phucthfksu6002 [place] [address]Dr. Kalie Bess BAND # 1.1 103/ul Critically high 0.0-0.3 [facility] Comment on above: Performed By: #### C BCMAN ####[facility] Avgaprmipk3504 [place] [address]Dr. Shayylan Bess BAND % 5 % Normal 0-5 The [facility] Comment on above: Performed By: #### C BCGABRIELLA ####[facility] Pnnobleqdi7056 [place] [address]Dr. Kalie Bess BASOM # 0.00 103/ul Normal 0.00-0.10 The [facility] Comment on above: Performed By: #### C BCGABRIELLA ####[facility] Gxjkouuxjz[address] [place], [place] [address]Dr. Kalie Bess BASOM % 0.0 % Critically low 0.2-2.0 The [facility] Comment on above: Performed By: #### C BCGABRIELLA ####[facility] Ewdlzqnrqf1861 [place] [address]Dr. Kalie Bess BLAST # Normal The [facility] Comment on above: Performed By: #### C BCGABRIELLA ####[facility] Wesbgqpkwr9460 [place] [address]Dr. Kalie Bess BLAST % Normal The [facility] Comment on above: Performed By: #### C BCGABRIELLA ####[facility] Kfbzkiqdql4948 [place] [address]Dr. Kalie Bess CORRECTED WBC Normal 4.0-11.0 The [facility] Comment on above: Performed By: #### C BCMAN ####[facility] Bghekdiyjl5893 [place] [address]Dr. Kalie Bess EOS # 0.87 103/ul Critically high 0.00-0.70 [facility] Comment on above: Performed By: #### C BCMAN ####[facility] Jwajbiyryo4302 [place], [place] [address]Ox. Kalie Bess EOS% 4.0 % Normal 0.9-7.0 The [facility] Comment on above: Performed By: #### C NANCY ####[facility] Pypfwcitdo1011 [place], [place] [address]Jb. Kalie Bess HCT 22.7 % Critically low 36.0-48.0 The [facility] Comment on above: Performed By: #### C NANCY ####[facility] Byrtovvkfu1257 [place], [place] [address]Yd. Kalie Bess HGB 8.2 g/dl Critically low 12.0-16.0 The [facility] Comment on above: Performed By: #### C NANCY ####[facility] Rlnweqevoc0821 [place], [place] [address]Tw. Kalie Bess LYMPHM # 1.74 103/ul Normal 1.20-3.80 The [facility] Comment on above: Performed By: #### C NANCY ####[facility] Iffyigsjbh0402 [place], [place] [address]Tv. Kalie Bess LYMPHM% 8.0 % Critically low 20.5-60.0 The [facility] Comment on above: Performed By: #### C NANCY ####[facility] Nbqnrchsnk4319 [place], [place] [address]Sj. Kalie Bess MCH 29.2 pg Normal 26.7-34.0 The [facility] Comment on above: Performed By: #### C NANCY ####[facility] Wgcmfrlupt9155 [place], [place] [address]Ti. Kalie Bess MCHC 36.1 g/dl Critically high 29.9-35.2 [facility] Comment on above: Performed By: #### C NANCY ####[facility] Zgpldunbpb4434 [place], [place] [address]Fo. Kalie Bess MCV 80.8 fL Critically low 81.0-99.0 The [facility] Comment on above: Performed By: #### C NANCY ####[facility] Miavbnczoo0171 [place] [address]Dr. Kalie Bess METAMYELOCYTE # Normal [facility] Comment on above: Performed By: #### C NANCY ####[facility] Qflzrveutz7444 [place] [address]Dr. Kalie Bess METAMYELOCYTE % Normal [facility] Comment on above: Performed By: #### C NANCY ####[facility] Igmxcvjjkq2624 [place] [address]Dr. Kalie Bess MICROCYTOSIS SLIGHT Normal [facility] Comment on above: Performed By: #### C NANCY ####[facility] Dxlzztwuxz5213 [place] [address]Dr. Kalie Bess MONOM# 1.08 103/ul Critically high 0.30-0.80 [facility] Comment on above: Performed By: #### C NANCY ####[facility] Ijgkbbfpxq68[address] [place], [place] [address]Dr. Kalie Bess MONOM% 5.0 % Normal 1.7-12.0 [facility] Comment on above: Performed By: #### C NANCY ####[facility] Rxoueexxht7224[address] [place], [place] [address]Dr. Kalie Bess MPV 12.3 fL Normal 9.5-13.5 [facility] Comment on above: Performed By: #### C NANCY ####[facility] Dlhfbthcpk43[address] [place], [place] [address]Dr. Kalie Bess MYELOCYTE # Normal The [facility] Comment on above: Performed By: #### C NANCY ####[facility] Eizrggtott2954 [place] [address]Dr. Kalie Bess MYELOCYTE % Normal The [facility] Comment on above: Performed By: #### C NANCY ####[facility] Utrplzzdeh9[address] [place], [place] [address]Dr. Kalie Bess NRBC Normal The [facility] Comment on above: Performed By: #### C NANCY ####[facility] Zcpnlotcns8671 [place] [address]Dr. Shayyroxie Shahriar PLT 184 103/ul Normal 150-450 The [facility] Comment on above: Performed By: #### C MEIRMAN ####[facility] Rpopykqdqi8209 [place], [place] [address]Yi. Kalie Bess RBC 2.81 106/ul Critically low 4.20-5.40 [facility] Comment on above: Performed By: #### C NANCY ####[facility] Keqoztveki8277 [place], [place] [address]Kg. Kalie Bess RDW 13.6 % Normal 11.0-15.0 [facility] Comment on above: Performed By: #### C NANCY ####[facility] Nhqlndsxmj9080 [place], [place] [address]Lt. Kalie Bess SEG # 16.93 103/ul Critically high 1.40-6.50 [facility] Comment on above: Performed By: #### C NANCY ####[facility] Avkuabopup4241 [place], [place] [address]Wv. Kalie Bess SEG % 78.0 % Critically high 43.0-75.0 [facility] Comment on above: Performed By: #### C NANCY ####[facility] Yyibqkqshm7005 [place], [place] [address]If. Kalie Bess WBC 21.7 103/ul Critically high 4.0-11.0 [facility] Comment on above: Performed By: #### C NANCY ####[facility] Fljyhcfcsb4477 [place], [place] [address]Xw. Kalie Bess CRPon 11-21-2022 CRP 65.5 mg/dL Critically high <=1.0 [facility] Comment on above: Performed By: #### C RP ####[facility] Eihmjmpkth2709 [place], [place] [address]Lt. Kalie Bess CULTURE BLOODon 11-21-2022 Microscopic examination of blood, culture Culture Observations: NO GROWTH AT 5 DAYS. Normal The [facility] Comment on above: Performed By: #### B LDCX2 ####[facility] Amxsugxshq6416 [place], [place] [address]Dn. Kalie Bess Microscopic examination of blood, culture Culture Observations: NO GROWTH AT 5 DAYS. Normal The [facility] Comment on above: Performed By: #### B LDCX1 ####[facility] Dbadmpefft2701 [place] [address]Dr. Kalie Shahriar Covid-19 PCR (CVDTB)on 10-27 SARS-CoV-2 (COVID-19) RNA CIPRIANO+probe Ql (Unsp spec) Not detected Normal NOT DETECTED The [facility] Comment on above: Result Comment: When diagnostic [...] for this test is supported by the Heating Technician of Health and Human Service's declaration that [...] be used). Performed By: #### C VDTBH ####[facility] Xdnvkklegz6686 [place] [address]Dr. Kalie Bess LACTATE/LACTIC ACIDon 2022 Lactate [Moles/Vol] 1.1 mmol/L Normal 0.4-1.9 [facility] Comment on above: Performed By: #### L ACT ####[facility] Byalixfflp5959 [place] [address]Dr. Kalie Bess Lactate [Moles/Vol] 2.2 mmol/L Critically high 0.4-1.9 [facility] Comment on above: Performed By: #### L ACT ####[facility] Ixpmwemeqa174[address] [place], [place] [address]Dr. Kalie Bess POINT OF CARE GLUCOSEon 10-27 Glucose [Mass/Vol] 343 mg/dL Critically high 74-106 [facility] Comment on above: Performed By: #### P OCGLUC ####[facility] Zhwyrshrzo4974[address] [place], [place] [address]Dr. Kalie Bess PROF 14(COMP METB)on 023 Albumin [Mass/Vol] 2.0 g/dL Critically low 3.4-5.0 Th e [facility] Comment on above: Performed By: #### C MP ####[facility] Utvcfljumu588[address] [place], [place] [address]Dr. Kalie Bess Albumin/Globulin [Mass ratio] 0.4 {ratio} Normal [facility] Comment on above: Performed By: #### C MP ####[facility] Jpodlaqudc4834[address] [place], [place] [address]Dr. Kalie Bess ALP [Catalytic activity/Vol] 126 U/L Critically high 46-116 [facility] Comment on above: Performed By: #### C MP ####[facility] Seieomgdot087[address] [place], [place] [address]Dr. Kalie Bess ALT [Catalytic activity/Vol] 35 U/L Normal 14-59 [facility] Comment on above: Performed By: #### C MP ####[facility] Cldycxyudd1434[address] [place], [place] [address]Dr. Kalie Bess Anion gap [Moles/Vol] 14.6 mmol/L Normal [facility] Comment on above: Performed By: #### C MP ####[facility] Qlvatdfkrm001[address] [place], [place] [address]Dr. Kalie Bess AST [Catalytic activity/Vol] 27 U/L Normal 15-37 [facility] Comment on above: Performed By: #### C MP ####[facility] Wyhnpnleyo5458[address] [place], [place] [address]Dr. Kalie Bess Bilirubin [Mass/Vol] 0.3 mg/dL Normal 0.2-1.0 [facility] Comment on above: Performed By: #### C MP ####[facility] Emvhecozut[address] [place], [place] [address]Dr. Kalie Bess Calcium [Mass/Vol] 8.9 mg/dL Normal 8.5-10.1 [facility] Comment on above: Performed By: #### C MP ####[facility] Dbrrhxnptg6477 [place] [address]Dr. Kalie Bess Chloride [Moles/Vol] 92 mmol/L Critically low 98-107 [facility] Comment on above: Performed By: #### C MP ####[facility] Qofaovyzoz6043 [place] [address]Dr. Kalie Bess CO2 [Moles/Vol] 27.2 mmol/L Normal 21.0-32.0 [facility] Comment on above: Performed By: #### C MP ####[facility] Gfyfwayybs44[address] [place], [place] [address]Dr. Kalie Bess Creatinine [Mass/Vol] 2.03 mg/dL Critically high 0.55-1.02 [facility] Comment on above: Performed By: #### C MP ####[facility] Bdfttlgmnc667214 [address] [place], [place] [address]Dr. Kalie Bess EGFR-AF INDIAN 31 mL/min/1.73m2 Critically low >=60 [facility] Comment on above: Performed By: #### C MP ####[facility] Yfqpnplbsk[address] [place], [place] [address]Dr. Kalie Bess EGFR-NON AF INDIAN 26 mL/min/1.73m2 Critically low >=60 [facility] Comment on above: Performed By: #### C MP ####[facility] Fpjkksflwy4[address] [place], [place] [address]Dr. Kalie Bess Globulin (S) [Mass/Vol] 4.9 g/dL Normal [facility] Comment on above: Performed By: #### C MP ####[facility] Czoxymuqwl9634[address] [place], [place] [address]Dr. Kalie Bess Glucose [Mass/Vol] 329 mg/dL Critically high 74-106 [facility] Comment on above: Performed By: #### C MP ####[facility] Hgldacexql0177[address] [place], [place] [address]Dr. Kalie Bess Potassium [Moles/Vol] 3.8 mmol/L Normal 3.5-5.1 [facility] Comment on above: Performed By: #### C MP ####[facility] Dvulmnvvjk239[address] [place], [place] [address]Dr. Kalie Bess Protein [Mass/Vol] 6.9 g/dL Normal 6.4-8.2 [facility] Comment on above: Performed By: #### C MP ####[facility] Rwxpraoipt7413[address] [place], [place] [address]Dr. Kalie Bess Sodium [Moles/Vol] 130 mmol/L Critically low 136-145 Th [facility] Comment on above: Performed By: #### C MP ####[facility] Szoxxpooyd6863[address] [place], [place] [address]Dr. Kalie Bess Urea nitrogen [Mass/Vol] 52.0 mg/dL Critically high 7.0-18.0 [facility] Comment on above: Performed By: #### C MP ####[facility] Zhvgblkucq263[address] [place], [place] [address]Dr. Kalie Bess Urea nitrogen/Creatinine [Mass ratio] 25.6 mg/mg Normal [facility] Comment on above: Performed By: #### C MP ####[facility] Ndzsuorpwn5517[address] [place], [place] [address]Dr. Kalie Bess PROTIMEon 11-21-2022 INR Coag (PPP) [Relative time] 1.03 {INR} Normal [facility] Comment on above: Performed By: #### P T, PTT ####[facility] Plgeaneaii5733[address] [place], [place] [address]Dr. Kalie Bess INR GUIDELINES SEE BELOW Normal [facility] Comment on above: Result Comment: GABRIELLA RED INR: 2.0 - 3.0 CONDITIONS NOT LISTED BELOW 2.5 - 3.5 FOR PROSTHETIC HEART VALVE REPLACEMENT 2.5 - 3.5 RECURRENT THROMBOSIS Performed By: #### P T, PTT ####[facility] Jsptamnrpo8358[address] [place], [place] [address]Dr. Kalie Bess PT Coag (PPP) [Time] 10.9 s Normal 9.0-11.6 [facility] Comment on above: Performed By: #### P T, PTT ####[facility] Bbzvdqjpup88[address] [place], [place] [id number]. Shayyroxie Shahriar PTTon 11-21-2022 aPTT Coag (Bld) [Time] 27.3 s Normal 22.3-36.2 [facility] Comment on above: Performed By: #### P T, PTT ####[facility] Cceokabxmd2495[address] [place], [place] [address]Dr. Kalie Bess SED RATE WESTERGRENon 2022 SED RATE 63 mm/hr Critically high <=30 [facility] Comment on above: Performed By: #### S EDR ####[facility] Glhlpfoktb9478[address] [place], [place] [address]Dr. Kalie Bess ACID FAST SMEAR AND CXon Acid Fast Culture Negative Normal [facility] Comment on above: Result Comment: No a junior fast bacilli isolated after 6 weeks. Performed By: #### A FB ####[facility] Zziuzpclvo8127[address] [place], [place] [address]Dr. Kalie Bess Acid Fast Smear Negative Normal [facility] Comment on above: Performed By: #### A FB ####[facility] Oblsyhpkkb299[address] [place], [place] [address]Dr. Kalie Bess AFB Specimen Processing Direct Inoculation Normal [facility] Comment on above: Performed By: #### A FB ####[facility] Nhjcrqhmmy7387[address] [place], [place] [address]Dr. Kalie Bess FUNGAL CULTUREon 09-01-2022 Fungus (Mycology) Culture Final report Normal [facility] Comment on above: Performed By: #### C XFUN ####[facility] Cyexessfur1629[address] [place], [place] [address]Dr. Kalie Bess Fungus Stain Final report Normal [facility] Comment on above: Performed By: #### C XFUN ####[facility] Onopljrukz465714 [address] [place], [place] [address]Dr. Kalie Bess Result 1 Comment Normal [facility] Comment on above: Result Comment: GILMA/ Calcofluor preparation: no fungus observed. Performed By: #### C XFUN ####[facility] Bujzfjruxz45[address] [place] [address]Dr. Kalie Bess Result Comment: No y east or mold isolated after 4 weeks. BNPon 08-05-2022 Natriuretic peptide B (Bld) [Mass/Vol] 3827.0 pg/mL Critically high <=900.0 [facility] Comment on above: Performed By: #### B MP, BNP ####[facility] Lnryakqxiu6188[address] [place], [place] [address]Dr. Kalie Shahriar CBC AUTO DIFFon 08-05-2022 BASO # 0.0 103/ul Normal 0.0-0.1 [facility] Comment on above: Performed By: #### C BC ####[facility] Mjufzmpmri7169[address] [place], [place] [address]Dr. Shayyroxie Bess Basophils/100 WBC (Bld) 0.1 % Critically low 0.2-2.0 [facility] Comment on above: Performed By: #### C BC ####[facility] Zseferiktt388[address] [place], [place] [address]Dr. Shayyroxie Bess EO # 0.0 103/ul Normal 0.0-0.7 [facility] Comment on above: Performed By: #### C BC ####[facility] Kodihhahkt8632[address] [place], [place] [address]Dr. Shayyroxie Bess Eosinophils/100 WBC (Bld) 0.0 % Critically low 0.9-7.0 [facility] Comment on above: Performed By: #### C BC ####[facility] Kpaomzubab849[address] [place], [place] [address]Dr. Shayyroxie Bess Erythrocyte distribution width (RBC) [Ratio] 13.9 % Normal 11.0-15.0 [facility] Comment on above: Performed By: #### C BC ####[facility] Zowbcdxuar2035[address] [place], [place] [address]Dr. Kalie Bess Hematocrit (Bld) [Volume fraction] 32.9 % Critically low 36.0-48.0 [facility] Comment on above: Performed By: #### C BC ####[facility] Dfwdydwhuh6444 [place] [id number]. Kalie Bess Hemoglobin (Bld) [Mass/Vol] 10.5 g/dL Critically low 12.0-16.0 [facility] Comment on above: Performed By: #### C BC ####[facility] Ybrqrdxzlz0826 [place] [address]Dr. Kalie Bess IG # 0.11 10e3/ul Critically high 0.00-0.03 [facility] Comment on above: Performed By: #### C BC ####[facility] Kvbehwfmfy3659 [place] [address]Dr. Kalie Bess IG % 0.7 % Critically high 0.0-0.5 [facility] Comment on above: Performed By: #### C BC ####[facility] Wgkswjbtfu5354[address] [place], [place] [address]Dr. Kalie Bess LYMPH # 1.6 103/ul Normal 1.2-3.8 [facility] Comment on above: Performed By: #### C BC ####[facility] Lzufbefogu3687[address] [place], [place] [address]Dr. Kalie Bess Lymphocytes/100 WBC (Bld) 9.5 % Critically low 20.5-60.0 [facility] Comment on above: Performed By: #### C BC ####[facility] Eexfovapwl5214 [place] [address]Dr. Kalie Bess MANUAL DIFF REQ NO Normal [facility] Comment on above: Performed By: #### C BC ####[facility] Xexrgtgxev9[address] [place], [place] [address]Dr. Kalie Bess MCH (RBC) [Entitic mass] 28.7 pg Normal 26.7-34.0 [facility] Comment on above: Performed By: #### C BC ####[facility] Eliklwphno[address] [place], [place] [address]Dr. Kalie Bess MCHC (RBC) [Mass/Vol] 31.9 g/dL Normal 29.9-35.2 [facility] Comment on above: Performed By: #### C BC ####[facility] Ibtccxvfpr2404 [place] [address]Dr. Kalie Bess MCV (RBC) [Entitic vol] 89.9 fL Normal 81.0-99.0 [facility] Comment on above: Performed By: #### C BC ####[facility] Pkjlzzlmhp4811 [place] [address]Dr. Kalie Bess MONO # 0.5 103/ul Normal 0.3-0.8 [facility] Comment on above: Performed By: #### C BC ####[facility] Pixkyukeqx7628 [place] [address]Dr. Kalie Bess Monocytes/100 WBC (Bld) 2.9 % Normal 1.7-12.0 [facility] Comment on above: Performed By: #### C BC ####[facility] Xgppoxzxyd8341 [place] [address]Dr. Kalie Bess NEUT # 14.5 103/ul Critically high 1.4-6.5 [facility] Comment on above: Performed By: #### C BC ####[facility] Ywvqvzykxt1110 [place] [address]Dr. Kalie Bess Neutrophils/100 WBC (Bld) 86.8 % Critically high 43.0-75.0 [facility] Comment on above: Performed By: #### C BC ####[facility] Pefbidfftt8369 [place] [address]Dr. Kalie Bess Platelet mean volume (Bld) [Entitic vol] 12.0 fL Normal 9.5-13.5 [facility] Comment on above: Performed By: #### C BC ####[facility] Rvefsmrvgp3673 [place] [address]Dr. Kalie Bess PLT 245 103/ul Normal 150-450 [facility] Comment on above: Performed By: #### C BC ####[facility] Jxygixrheg7369 [place] [address]Dr. Kalie Bess RBC 3.66 106/ul Critically low 4.20-5.40 [facility] Comment on above: Performed By: #### C BC ####[facility] Utimpsofpl3473 [place] [address]Dr. Kalie Bess WBC 16.7 103/ul Critically high 4.0-11.0 [facility] Comment on above: Performed By: #### C BC ####[facility] Oqjfguehhg2661 [place] [address]Dr. Kalie Bess PROF CHEM 8 (BAS METB)on Anion gap [Moles/Vol] 10.1 mmol/L Normal [facility] Comment on above: Performed By: #### B MP, BNP ####[facility] Aptktvzhsi9915 [place] [address]Dr. Kalie Bess Calcium [Mass/Vol] 8.4 mg/dL Critically low 8.5-10.1 Th [facility] Comment on above: Performed By: #### B MP, BNP ####[facility] Hpbqfgelrn080[address] [place], [place] [address]Dr. Kalie Bess Chloride [Moles/Vol] 96 mmol/L Critically low 98-107 [facility] Comment on above: Performed By: #### B MP, BNP ####[facility] Zbbtofpyry921114 [address] [place], [place] [address]Dr. Kalie Bess CO2 [Moles/Vol] 36.0 mmol/L Critically high 21.0-32.0 [facility] Comment on above: Performed By: #### B MP, BNP ####[facility] Gwrtlgzrko7026[address] [place], [place] [address]Dr. Kalie Bess Creatinine [Mass/Vol] 1.64 mg/dL Critically high 0.55-1.02 [facility] Comment on above: Performed By: #### B MP, BNP ####[facility] Xmxewhrjwj4594[address] [place], [place] [address]Dr. Kalie Bess EGFR-AF INDIAN 40 mL/min/1.73m2 Critically low >=60 [facility] Comment on above: Performed By: #### B MP, BNP ####[facility] Gwkjmcgvjf5875[address] [place], [place] [address]Dr. Kalie Bess EGFR-NON AF INDIAN 33 mL/min/1.73m2 Critically low >=60 [facility] Comment on above: Performed By: #### B MP, BNP ####[facility] Sqteabnxta7615[address] [place], [place] [address]Dr. Kalie Bess Glucose [Mass/Vol] 279 mg/dL Critically high 74-106 T [facility] Comment on above: Performed By: #### B MP, BNP ####[facility] Tswcxopqti3816[address] [place], [place] [address]Dr. Kalie Bess Potassium [Moles/Vol] 4.1 mmol/L Normal 3.5-5.1 [facility] Comment on above: Performed By: #### B MP, BNP ####[facility] Kxtwqjhhoy1145[address] [place], [place] [address]Dr. Kalie Bess Sodium [Moles/Vol] 138 mmol/L Normal 136-145 [facility] Comment on above: Performed By: #### B MP, BNP ####[facility] Xegmpdynuk5276[address] [place], [place] [address]Dr. Kalie Bess Urea nitrogen [Mass/Vol] 36.0 mg/dL Critically high 7.0-18.0 [facility] Comment on above: Performed By: #### B MP, BNP ####[facility] Amxclvvlms88[address] [place], [place] [address]Dr. Kalie Bess Urea nitrogen/Creatinine [Mass ratio] 22.0 mg/mg Normal [facility] Comment on above: Performed By: #### B MP, BNP ####[facility] Rbxiuylgoo1575[address] [place], [place] [address]Dr. Kalie Bess BNPon 08-04-2022 Natriuretic peptide B (Bld) [Mass/Vol] 2969.0 pg/mL Critically high <=900.0 [facility] Comment on above: Performed By: #### B PSYCHOTHERAPIST SOCIAL WORKER ####[facility] Oltvikdlbw8887[address] [place], [place] [address]Dr. Kalie Bess CBC AUTO DIFFon 08-04-2022 BASO # 0.0 103/ul Normal 0.0-0.1 [facility] Comment on above: Performed By: #### C BC ####[facility] Ykfaenqzpt8921 [place] [address]Dr. Kalie Bess Basophils/100 WBC (Bld) 0.2 % Normal 0.2-2.0 [facility] Comment on above: Performed By: #### C BC ####[facility] Pvktvqajzk9434 [place] [address]Dr. Kalie Bess EO # 0.0 103/ul Normal 0.0-0.7 [facility] Comment on above: Performed By: #### C BC ####[facility] Paoejtgxxx6283 [place] [address]Dr. Kalie Bess Eosinophils/100 WBC (Bld) 0.1 % Critically low 0.9-7.0 [facility] Comment on above: Performed By: #### C BC ####[facility] Ffiaswapao5226[address] [place], [place] [address]Dr. Kalie Bess Erythrocyte distribution width (RBC) [Ratio] 13.9 % Normal 11.0-15.0 [facility] Comment on above: Performed By: #### C BC ####[facility] Nuzbkqaimk2663 [place] [address]Dr. Kalie Bess Hematocrit (Bld) [Volume fraction] 33.4 % Critically low 36.0-48.0 [facility] Comment on above: Performed By: #### C BC ####[facility] Anoekrhhkh0729 [place] [address]Dr. Kalie Bess Hemoglobin (Bld) [Mass/Vol] 10.6 g/dL Critically low 12.0-16.0 [facility] Comment on above: Performed By: #### C BC ####[facility] Npvmzftsrx4552 [place] [address]Dr. Kalie Bess IG # 0.12 10e3/ul Critically high 0.00-0.03 [facility] Comment on above: Performed By: #### C BC ####[facility] Vidtdkuebo[address] [place], [place] [address]Dr. Kalie Bess IG % 1.0 % Critically high 0.0-0.5 [facility] Comment on above: Performed By: #### C BC ####[facility] Nyblbbcazf6246 [place] [address]Dr. Kalie Bess LYMPH # 1.4 103/ul Normal 1.2-3.8 [facility] Comment on above: Performed By: #### C BC ####[facility] Rnmglaypfq7538 [place] [address]Dr. Kalie Bess Lymphocytes/100 WBC (Bld) 11.1 % Critically low 20.5-60.0 [facility] Comment on above: Performed By: #### C BC ####[facility] Qfiqxvcbrs6724 [place] [address]Dr. Kalie Shahriar MANUAL DIFF REQ NO Normal [facility] Comment on above: Performed By: #### C BC ####[facility] Glkjilhaih9226 [place] [address]Dr. Kalie Shahriar MCH (RBC) [Entitic mass] 28.4 pg Normal 26.7-34.0 [facility] Comment on above: Performed By: #### C BC ####[facility] Gpicamhtbf1946 [place] [address]Dr. Kalie Bess MCHC (RBC) [Mass/Vol] 31.7 g/dL Normal 29.9-35.2 [facility] Comment on above: Performed By: #### C BC ####[facility] Yixsvhupus8659 [place] [address]Dr. Kalie Shahriar MCV (RBC) [Entitic vol] 89.5 fL Normal 81.0-99.0 [facility] Comment on above: Performed By: #### C BC ####[facility] Eomkdlbxmo7978 [place] [address]Dr. Kalie Bess MONO # 0.3 103/ul Normal 0.3-0.8 [facility] Comment on above: Performed By: #### C BC ####[facility] Qhhxlevsqw0514 [place] [address]Dr. Kalie Bess Monocytes/100 WBC (Bld) 2.2 % Normal 1.7-12.0 [facility] Comment on above: Performed By: #### C BC ####[facility] Dhikqtopqr8793 [place] [address]Dr. Kalie Bess NEUT # 10.8 103/ul Critically high 1.4-6.5 [facility] Comment on above: Performed By: #### C BC ####[facility] Nbwlitovxi8333 [place] [address]Dr. Kalie Bess Neutrophils/100 WBC (Bld) 85.4 % Critically high 43.0-75.0 [facility] Comment on above: Performed By: #### C BC ####[facility] Pqzxizjolh2621 [place] [address]Dr. Kalie Bess Platelet mean volume (Bld) [Entitic vol] 11.9 fL Normal 9.5-13.5 [facility] Comment on above: Performed By: #### C BC ####[facility] Apmduxhbtm8453 [place] [address]Dr. Kalie Bess PLT 256 103/ul Normal 150-450 [facility] Comment on above: Performed By: #### C BC ####[facility] Xwazonnnzr7236 [place] [address]Dr. Kalie Bess RBC 3.73 106/ul Critically low 4.20-5.40 [facility] Comment on above: Performed By: #### C BC ####[facility] Yhdxrmmyyd8285 [place] [address]Dr. Kalie Bess WBC 12.6 103/ul Critically high 4.0-11.0 [facility] Comment on above: Performed By: #### C BC ####[facility] Fatkfnqebp9215 [place] [address]Dr. Kalie Bess PH, BODY FLUIDon 08-04-2022 pH, Body Fluid 7.7 Normal Not Estab. [facility] Comment on above: Result Comment: The reference interval(s) and other method performance specificationshave not been established for this body fluid. The test result must beintegrated into the clinical context for interpretation. Performed By: #### B DYFLPH ####[facility] Ilnabblswu0323 [place] [id number]. Kalie Shahriar POINT OF CARE GLUCOSEon 07-26 Glucose [Mass/Vol] 355 mg/dL Critically high 74-[address] [facility] Comment on above: Performed By: #### P OCGLUC ####[facility] Naspenntch2125 [place] [address]Dr. Kalie Bess Glucose [Mass/Vol] 405 mg/dL Critically high 74-[address] [facility] Comment on above: Performed By: #### P OCGLUC ####[facility] Fbgndxpgvn2645 [place] [address]Dr. Kalie Bess Glucose [Mass/Vol] 351 mg/dL Critically high 74-[address] [facility] Comment on above: Performed By: #### P OCGLUC ####[facility] Qymzeswsyd2445[address] [place], [place] [address]Dr. Kalie Bess PROF CHEM 8 (BAS METB)on Anion gap [Moles/Vol] 10.1 mmol/L Normal [facility] Comment on above: Performed By: #### B MP ####[facility] Tcpcrtobea8857[address] [place], [place] [address]Dr. Kalie Bess Calcium [Mass/Vol] 8.6 mg/dL Normal 8.5-10.1 [facility] Comment on above: Performed By: #### B MP ####[facility] Ebfnpfvatc7475[address] [place], [place] [address]Dr. Kalie Bess Chloride [Moles/Vol] 99 mmol/L Normal 98-107 [facility] Comment on above: Performed By: #### B MP ####[facility] Urqioplvbn2682[address] [place], [place] [address]Dr. Kalie Bess CO2 [Moles/Vol] 33.0 mmol/L Critically high 21.0-32.0 [facility] Comment on above: Performed By: #### B MP ####[facility] Nmkzgytofo068[address] [place], [place] [address]Dr. Kalie Bess Creatinine [Mass/Vol] 1.54 mg/dL Critically high 0.55-1.02 [facility] Comment on above: Performed By: #### B MP ####[facility] Sbcjlubfzn8489 [place] [address]Dr. Kalie Bess EGFR-AF INDIAN 43 mL/min/1.73m2 Critically low >=60 [facility] Comment on above: Performed By: #### B MP ####[facility] Jdpildfxzd1999 [place] [address]Dr. Kalie Bess EGFR-NON AF INDIAN 36 mL/min/1.73m2 Critically low >=60 [facility] Comment on above: Performed By: #### B MP ####[facility] Uawkdeumcb5579 [place] [address]Dr. Shayyroxie Bess Glucose [Mass/Vol] 264 mg/dL Critically high 74-[address] [facility] Comment on above: Performed By: #### B MP ####[facility] Hnarfqybdd6046 [place] [address]Dr. Kalie Bess Potassium [Moles/Vol] 4.1 mmol/L Normal 3.5-5.1 [facility] Comment on above: Performed By: #### B MP ####[facility] Fwzgvkrdbf468[address] [place], [place] [address]Dr. Kalie Bess Sodium [Moles/Vol] 138 mmol/L Normal 136-145 [facility] Comment on above: Performed By: #### B MP ####[facility] Rvjxfgvcta0837 [place] [address]Dr. Kalie Bess Urea nitrogen [Mass/Vol] 27.0 mg/dL Critically high 7.0-18.0 [facility] Comment on above: Performed By: #### B MP ####[facility] Veajijyuhc8833 [place] [address]Dr. Kalie Bess Urea nitrogen/Creatinine [Mass ratio] 17.5 mg/mg Normal [facility] Comment on above: Performed By: #### B MP ####[facility] Paaciezlck3832[address] [place], [place] [address]Dr. Shayyroxie Shahriar XR CHEST 2 Von 08-04-2022 XR CHEST 2 V Normal [facility] CBC AUTO DIFFon 08-03-2022 BASO # 0.1 103/ul Normal 0.0-0.1 [facility] Comment on above: Performed By: #### C BC ####[facility] Jutrhgtekc2478 [place] [address]Dr. Kalie Bess Basophils/100 WBC (Bld) 0.4 % Normal 0.2-2.0 [facility] Comment on above: Performed By: #### C BC ####[facility] Fszjyhvyzr5876 [place] [address]DrCassie Bess EO # 0.6 103/ul Normal 0.0-0.7 [facility] Comment on above: Performed By: #### C BC ####[facility] Duldnpoyot025[address] [place], [place] [address]Dr. Kalie Bess Eosinophils/100 WBC (Bld) 4.3 % Normal 0.9-7.0 [facility] Comment on above: Performed By: #### C BC ####[facility] Mspmvvcozm59[address] [place], [place] [address]DrCassie Bess Erythrocyte distribution width (RBC) [Ratio] 14.2 % Normal 11.0-15.0 [facility] Comment on above: Performed By: #### C BC ####[facility] Xwxvnolqks9635[address] [place], [place] [address]Dr. Kalie Bess Hematocrit (Bld) [Volume fraction] 32.1 % Critically low 36.0-48.0 [facility] Comment on above: Performed By: #### C BC ####[facility] Juvtakxkel7[address] [place], [place] [address]Dr. Kalie Bess Hemoglobin (Bld) [Mass/Vol] 10.3 g/dL Critically low 12.0-16.0 [facility] Comment on above: Performed By: #### C BC ####[facility] Gcjiteqlra[address] [place], [place] [address]DrCassie Bess IG # 0.06 10e3/ul Critically high 0.00-0.03 [facility] Comment on above: Performed By: #### C BC ####[facility] Rzithfhtda[address] [place], [place] [address]Dr. Kalie Bess IG % 0.4 % Normal 0.0-0.5 [facility] Comment on above: Performed By: #### C BC ####[facility] Hmyqusohoc49[address] [place] [address]DrCassie Bess LYMPH # 3.0 103/ul Normal 1.2-3.8 [facility] Comment on above: Performed By: #### C BC ####[facility] Gfyzxikevr1060 [place] [address]DrCassie Bess Lymphocytes/100 WBC (Bld) 21.0 % Normal 20.5-60.0 [facility] Comment on above: Performed By: #### C BC ####[facility] Jhcgobjrho8785 [place] [address]DrCassie Bess MANUAL DIFF REQ NO Normal [facility] Comment on above: Performed By: #### C BC ####[facility] Kmbnawjxhv9752 [place] [address]DrCassie Bess MCH (RBC) [Entitic mass] 28.9 pg Normal 26.7-34.0 [facility] Comment on above: Performed By: #### C BC ####[facility] Fkasawyrkv3[address] [place], [place] [address]DrCassie Bess MCHC (RBC) [Mass/Vol] 32.1 g/dL Normal 29.9-35.2 [facility] Comment on above: Performed By: #### C BC ####[facility] Xmkkeaigod[address] [place], [place] [address]DrCassie Bess MCV (RBC) [Entitic vol] 89.9 fL Normal 81.0-99.0 [facility] Comment on above: Performed By: #### C BC ####[facility] Cqkwshelsu7996 [place] [address]DrCassie Bess MONO # 1.0 103/ul Critically high 0.3-0.8 [facility] Comment on above: Performed By: #### C BC ####[facility] Lqrizpizoi1716 [place] [address]DrCassie Bess Monocytes/100 WBC (Bld) 6.9 % Normal 1.7-12.0 [facility] Comment on above: Performed By: #### C BC ####[facility] Yilsqijake9342 [place] [address]Dr. Kalie Bess NEUT # 9.5 103/ul Critically high 1.4-6.5 [facility] Comment on above: Performed By: #### C BC ####[facility] Hhuzunclgi5488 [place] [address]Dr. Kalie Bess Neutrophils/100 WBC (Bld) 67.0 % Normal 43.0-75.0 [facility] Comment on above: Performed By: #### C BC ####[facility] Ltxyochmmx8811[address] [place], [place] [address]Dr. Kalie Bess Platelet mean volume (Bld) [Entitic vol] 11.6 fL Normal 9.5-13.5 [facility] Comment on above: Performed By: #### C BC ####[facility] Lbqxsojyep[address] [place], [place] [address]Dr. Kalie Bess PLT 227 103/ul Normal 150-450 [facility] Comment on above: Performed By: #### C BC ####[facility] Kxyaehsqpo230[address] [place], [place] [address]Dr. Kalie Bess RBC 3.57 106/ul Critically low 4.20-5.40 [facility] Comment on above: Performed By: #### C BC ####[facility] Ymintnnczm63[address] [place], [place] [id number]. Kalie Shahriar WBC 14.1 103/ul Critically high 4.0-11.0 [facility] Comment on above: Performed By: #### C BC ####[facility] Bfdjfibiam1824[address] [place], [place] [address]Dr. Kalie Bess POINT OF CARE GLUCOSEon 10- Glucose [Mass/Vol] 340 mg/dL Critically high 74-[address] [facility] Comment on above: Performed By: #### P OCGLUC ####[facility] Xujepxfaof8118[address] [place], [place] [address]Dr. Kalie Bess Glucose [Mass/Vol] 270 mg/dL Critically high 74-[address] [facility] Comment on above: Performed By: #### P OCGLUC ####[facility] Wyervicguk206[address] [place], [place] [address]Dr. Kalie Bess Glucose [Mass/Vol] 176 mg/dL Critically high 74-[address] [facility] Comment on above: Performed By: #### P OCGLUC ####[facility] Ezpysfzqta2332[address] [place], [place] [address]Dr. Kalie Bess Glucose [Mass/Vol] 178 mg/dL Critically high 74-[address] [facility] Comment on above: Performed By: #### P OCGLUC ####[facility] Pyyczobzqy213[address] [place], [place] [address]Dr. Kalie Shahriar PROF CHEM 8 (BAS METB)on Anion gap [Moles/Vol] 5.7 mmol/L Normal [facility] Comment on above: Performed By: #### B MP ####[facility] Zftkugwldz9[address] [place], [place] [address]Dr. Kalie Bess Calcium [Mass/Vol] 8.4 mg/dL Critically low 8.5-10.1 [facility] Comment on above: Performed By: #### B MP ####[facility] Aswcznndev35[address] [place], [place] [address]Dr. Kalie Bess Chloride [Moles/Vol] 100 mmol/L Normal 98-107 [facility] Comment on above: Performed By: #### B MP ####[facility] Xskqjelnyq5946[address] [place], [place] [address]Dr. Kalie Shahriar CO2 [Moles/Vol] 34.0 mmol/L Critically high 21.0-32.0 [facility] Comment on above: Performed By: #### B MP ####[facility] Qmjitzjsuq1469[address] [place], [place] [address]Dr. Kalie Bess Creatinine [Mass/Vol] 1.25 mg/dL Critically high 0.55-1.02 [facility] Comment on above: Performed By: #### B MP ####[facility] Dooyiasxkk9498 [place] [id number]. Kalie Bess EGFR-AF INDIAN 55 mL/min/1.73m2 Critically low >=60 [facility] Comment on above: Performed By: #### B MP ####[facility] Tjzktijcrp8431 [place] [address]Dr. Kalie Bess EGFR-NON AF INDIAN 45 mL/min/1.73m2 Critically low >=60 [facility] Comment on above: Performed By: #### B MP ####[facility] Khhycircti2827 [place] [address]Dr. Kalie Bess Glucose [Mass/Vol] 193 mg/dL Critically high 74-106 [facility] Comment on above: Performed By: #### B MP ####[facility] Kncrmxdylb4283 [place] [address]Dr. Kalie Bess Potassium [Moles/Vol] 3.7 mmol/L Normal 3.5-5.1 [facility] Comment on above: Performed By: #### B MP ####[facility] Kqhtqktzlk[address] [place], [place] [address]Dr. Kalie Bess Sodium [Moles/Vol] 136 mmol/L Normal 136-145 [facility] Comment on above: Performed By: #### B MP ####[facility] Ajmfwkbqrk8441 [place] [address]Dr. Kalie Bess Urea nitrogen [Mass/Vol] 24.0 mg/dL Critically high 7.0-18.0 [facility] Comment on above: Performed By: #### B MP ####[facility] Gaxrzahqsm5126 [place] [address]Dr. Kalie Bess Urea nitrogen/Creatinine [Mass ratio] 19.2 mg/mg Normal [facility] Comment on above: Performed By: #### B MP ####[facility] Pyvlnxogqy4448 [place] [address]Dr. Kalie Bess XR CHEST 2 Von 08-03-2022 XR CHEST 2 V Normal [facility] CBC AUTO DIFFon 08-02-2022 BASO # 0.1 103/ul Normal 0.0-0.1 [facility] Comment on above: Performed By: #### C BC ####[facility] Ostkknuprj7068 [place] [address]Dr. Kalie Bess Basophils/100 WBC (Bld) 0.4 % Normal 0.2-2.0 [facility] Comment on above: Performed By: #### C BC ####[facility] Fzxpvaapjc4623 [place] [address]Dr. Kalie Bess EO # 0.5 103/ul Normal 0.0-0.7 [facility] Comment on above: Performed By: #### C BC ####[facility] Bqzvbvqisc1024[address] [place], [place] [address]Dr. Kalie Bess Eosinophils/100 WBC (Bld) 4.0 % Normal 0.9-7.0 [facility] Comment on above: Performed By: #### C BC ####[facility] Kkwjtovpoc5742[address] [place], [place] [address]Dr. Kalie Bess Erythrocyte distribution width (RBC) [Ratio] 14.1 % Normal 11.0-15.0 [facility] Comment on above: Performed By: #### C BC ####[facility] Zbosexwvno5589[address] [place], [place] [address]Dr. Kalie Bess Hematocrit (Bld) [Volume fraction] 32.4 % Critically low 36.0-48.0 [facility] Comment on above: Performed By: #### C BC ####[facility] Smjehcpvrc1827[address] [place], [place] [address]Dr. Kalie Bess Hemoglobin (Bld) [Mass/Vol] 10.7 g/dL Critically low 12.0-16.0 [facility] Comment on above: Performed By: #### C BC ####[facility] Vwmriapyub[address] [place], [place] [address]Dr. Kalie Bess IG # 0.08 10e3/ul Critically high 0.00-0.03 [facility] Comment on above: Performed By: #### C BC ####[facility] Dbpqcawwcv3339[address] [place], [place] [address]Dr. Kalie Bess IG % 0.6 % Critically high 0.0-0.5 [facility] Comment on above: Performed By: #### C BC ####[facility] Izgbxtchll0328 [place] [address]Dr. Kalie Bess LYMPH # 2.9 103/ul Normal 1.2-3.8 [facility] Comment on above: Performed By: #### C BC ####[facility] Bmyelpcggh8560 [place] [address]Dr. Kalie Bess Lymphocytes/100 WBC (Bld) 21.3 % Normal 20.5-60.0 [facility] Comment on above: Performed By: #### C BC ####[facility] Trhdxrtsxn4937 [place] [address]Dr. Kalie Bess MANUAL DIFF REQ NO Normal [facility] Comment on above: Performed By: #### C BC ####[facility] Juxdwyihxd5764[address] [place], [place] [address]Dr. Kalie Bess MCH (RBC) [Entitic mass] 28.8 pg Normal 26.7-34.0 [facility] Comment on above: Performed By: #### C BC ####[facility] Qtypuzexjx4511[address] [place], [place] [address]Dr. Kalie Bess MCHC (RBC) [Mass/Vol] 33.0 g/dL Normal 29.9-35.2 [facility] Comment on above: Performed By: #### C BC ####[facility] Dtlvlexfcg6533 [place] [address]Dr. Kalie Bess MCV (RBC) [Entitic vol] 87.3 fL Normal 81.0-99.0 [facility] Comment on above: Performed By: #### C BC ####[facility] Qkjnzqrlkq1045 [place] [id number]. Kalie Bess MONO # 0.9 103/ul Critically high 0.3-0.8 [facility] Comment on above: Performed By: #### C BC ####[facility] Axzqafynrj7034 [place] [address]Dr. Kalie Bess Monocytes/100 WBC (Bld) 6.9 % Normal 1.7-12.0 [facility] Comment on above: Performed By: #### C BC ####[facility] Zclycgucva0293 [place] [address]Dr. Kalie Bess NEUT # 9.0 103/ul Critically high 1.4-6.5 [facility] Comment on above: Performed By: #### C BC ####[facility] Nuocvbofvb7895 [place] [address]Dr. Kalie Bess Neutrophils/100 WBC (Bld) 66.8 % Normal 43.0-75.0 [facility] Comment on above: Performed By: #### C BC ####[facility] Eycqjrhsnu9663 [place] [address]Dr. Kalie Bess Platelet mean volume (Bld) [Entitic vol] 11.6 fL Normal 9.5-13.5 [facility] Comment on above: Performed By: #### C BC ####[facility] Ezmyvuquif9273 [place] [address]Dr. Kalie Bess PLT 241 103/ul Normal 150-450 [facility] Comment on above: Performed By: #### C BC ####[facility] Zqmksmxblp2240 [place] [address]Dr. Kalie Bess RBC 3.71 106/ul Critically low 4.20-5.40 [facility] Comment on above: Performed By: #### C BC ####[facility] Uzkpcaarud5621 [place] [address]Dr. Kalie Bess WBC 13.4 103/ul Critically high 4.0-11.0 [facility] Comment on above: Performed By: #### C BC ####[facility] Sbshcbfzag6157 [place] [address]Dr. Kalie Bess POINT OF CARE GLUCOSEon 10-0 Glucose [Mass/Vol] 106 mg/dL Normal 74-106 [facility] Comment on above: Performed By: #### P OCGLUC ####[facility] Xpvndauxiz7624 [place] [address]Dr. Kalie Bess Glucose [Mass/Vol] 109 mg/dL Critically high 74-[address] [facility] Comment on above: Performed By: #### P OCGLUC ####[facility] Nwpjtzxjab5156 [place] [address]Dr. Kalie Bess Glucose [Mass/Vol] 159 mg/dL Critically high 74-[address] [facility] Comment on above: Performed By: #### P OCGLUC ####[facility] Rritbmnzcf4524 [place] [address]Dr. Kalie Bess Glucose [Mass/Vol] 340 mg/dL Critically high 74-[address] [facility] Comment on above: Performed By: #### P OCGLUC ####[facility] Aongxqngsi4909[address] [place], [place] [address]Dr. Kalie Bess PROF CHEM 8 (BAS METB)on Anion gap [Moles/Vol] 6.9 mmol/L [facility] Comment on above: Performed By: #### B MP ####[facility] Qmabxnzdsd1418[address] [place], [place] [address]Dr. Kalie Bess Calcium [Mass/Vol] 8.0 mg/dL Critically low 8.5-10.1 [facility] Comment on above: Performed By: #### B MP ####[facility] Rgzyhnzhjp9733[address] [place], [place] [address]Dr. Kalie Bess Chloride [Moles/Vol] 96 mmol/L Critically low 98-107 [facility] Comment on above: Performed By: #### B MP ####[facility] Psulhhrevz9344[address] [place], [place] [address]Dr. Kalie Bess CO2 [Moles/Vol] 33.7 mmol/L Critically high 21.0-32.0 [facility] Comment on above: Performed By: #### B MP ####[facility] Ligpekreto669914 [address] [place], [place] [address]Dr. Kalie Bess Creatinine [Mass/Vol] 1.35 mg/dL Critically high 0.55-1.02 [facility] Comment on above: Performed By: #### B MP ####[facility] Hdrjesvlnx2959[address] [place], [place] [address]Dr. Kalie Shahriar EGFR-AF INDIAN 50 mL/min/1.73m2 Critically low >=60 [facility] Comment on above: Performed By: #### B MP ####[facility] Htofqquxid1802[address] [place], [place] [address]Dr. Shayyroxie Shahriar EGFR-NON AF INDIAN 41 mL/min/1.73m2 Critically low >=60 [facility] Comment on above: Performed By: #### B MP ####[facility] Mqjqyiosrq637[address] [place], [place] [address]Dr. Kalie Bess Glucose [Mass/Vol] 339 mg/dL Critically high 74-106 [facility] Comment on above: Performed By: #### B MP ####[facility] Qsohlkgfkq237[address] [place], [place] [address]Dr. Kalie Bess Potassium [Moles/Vol] 3.6 mmol/L Normal 3.5-5.1 [facility] Comment on above: Performed By: #### B MP ####[facility] Zipqjvqyza4776[address] [place], [place] [address]Dr. Kalie Bess Sodium [Moles/Vol] 133 mmol/L Critically low 136-145 Th [facility] Comment on above: Performed By: #### B MP ####[facility] Darhhhcbgz3046[address] [place], [place] [address]Dr. Kalie Bess Urea nitrogen [Mass/Vol] 28.0 mg/dL Critically high 7.0-18.0 [facility] Comment on above: Performed By: #### B MP ####[facility] Hvilkcskrb0888[address] [place], [place] [address]Dr. Kalie Bess Urea nitrogen/Creatinine [Mass ratio] 20.7 mg/mg Normal [facility] Comment on above: Performed By: #### B MP ####[facility] Pmzmhnibkg725[address] [place], [place] [address]Dr. Kalie Bess XR CHEST 2 Von 08-02-2022 XR CHEST 2 V Normal [facility] AMYLASE, BODY FLUIDon 2021 Amylase [Catalytic activity/Vol] 18 U/L Normal [facility] Comment on above: Result Comment: ____ : BODY FLUID TYPE : AMYLASE : : : : : Lymph : 50 - 83 : : : : : Peritoneal : : : Fluid : 88 - 109 : : : : : Saliva : : : (Mixed Glands) : 57072 - 480667 : : : : . Mars W, Shilo V. Reference Intervals for Adults and Children 2008. Ninth Edition (V9.1) [employer], [facility]; Foster: April 2009.The method performance specifications have not been established forthis test in body fluid. The test result should be integrated intothe clinical context for interpretation. Performed By: #### A MYBODY ####[facility] Jfuvgfyzbo3846[address] [place], [place] [address]Dr. Kalie Bess CBC AUTO DIFFon 08-01-2022 BASO # 0.0 103/ul Normal 0.0-0.1 [facility] Comment on above: Performed By: #### C BC ####[facility] Ryoxwyxyuh649[address] [place], [place] [address]Dr. Kalie Bess Basophils/100 WBC (Bld) 0.3 % Normal 0.2-2.0 [facility] Comment on above: Performed By: #### C BC ####[facility] Pkztqmsyil864[address] [place], [place] [address]DrCassie Bess EO # 0.4 103/ul Normal 0.0-0.7 [facility] Comment on above: Performed By: #### C BC ####[facility] Hdzdqxvwua3389 [place] [address]Dr. Kalie Bess Eosinophils/100 WBC (Bld) 3.2 % Normal 0.9-7.0 [facility] Comment on above: Performed By: #### C BC ####[facility] Ppvwkutfxc2952[address] [place], [place] [address]Dr. Kalie Bess Erythrocyte distribution width (RBC) [Ratio] 14.0 % Normal 11.0-15.0 [facility] Comment on above: Performed By: #### C BC ####[facility] Njkyfpvxwf6492[address] [place], [place] [address]Dr. Kalie Bess Hematocrit (Bld) [Volume fraction] 34.0 % Critically low 36.0-48.0 [facility] Comment on above: Performed By: #### C BC ####[facility] Awycxmcxir49[address] [place], [place] [address]Dr. Kalie Bess Hemoglobin (Bld) [Mass/Vol] 10.9 g/dL Critically low 12.0-16.0 [facility] Comment on above: Performed By: #### C BC ####[facility] Acdbklaxzl827[address] [place], [place] [address]Dr. Shayyroxie Bess IG # 0.11 10e3/ul Critically high 0.00-0.03 [facility] Comment on above: Performed By: #### C BC ####[facility] Bcorzcdief7989[address] [place], [place] [address]Dr. Shayyroxie Bess IG % 0.8 % Critically high 0.0-0.5 [facility] Comment on above: Performed By: #### C BC ####[facility] Yogkypbpoi7834[address] [place], [place] [address]DrCassie Bess LYMPH # 3.2 103/ul Normal 1.2-3.8 [facility] Comment on above: Performed By: #### C BC ####[facility] Qfpuuycefe534[address] [place], [place] [address]Dr. Kalie Bess Lymphocytes/100 WBC (Bld) 24.6 % Normal 20.5-60.0 [facility] Comment on above: Performed By: #### C BC ####[facility] Ldjdfdekys8069 [place] [address]Dr. Kalie Bess MANUAL DIFF REQ NO Normal [facility] Comment on above: Performed By: #### C BC ####[facility] Qlqrmsdasc9292 [place] [address]Dr. Kalie Bess MCH (RBC) [Entitic mass] 28.3 pg Normal 26.7-34.0 [facility] Comment on above: Performed By: #### C BC ####[facility] Cfcakspxfo6097[address] [place], [place] [address]Dr. Kalie Bess MCHC (RBC) [Mass/Vol] 32.1 g/dL Normal 29.9-35.2 [facility] Comment on above: Performed By: #### C BC ####[facility] Xuuqpiirve5887[address] [place], [place] [address]Dr. Kalie Bess MCV (RBC) [Entitic vol] 88.3 fL Normal 81.0-99.0 [facility] Comment on above: Performed By: #### C BC ####[facility] Uzedrdhmko9615[address] [place], [place] [address]Dr. Kalie Bess MONO # 0.8 103/ul Normal 0.3-0.8 [facility] Comment on above: Performed By: #### C BC ####[facility] Rllqvsiwsh5634[address] [place], [place] [address]Dr. Kalie Bess Monocytes/100 WBC (Bld) 5.8 % Normal 1.7-12.0 [facility] Comment on above: Performed By: #### C BC ####[facility] Ftrdaqghpq087[address] [place], [place] [address]Dr. Kalie Bess NEUT # 8.5 103/ul Critically high 1.4-6.5 [facility] Comment on above: Performed By: #### C BC ####[facility] Zpjuxfekyk7785[address] [place], [place] [address]Dr. Kalie Bess Neutrophils/100 WBC (Bld) 65.3 % Normal 43.0-75.0 [facility] Comment on above: Performed By: #### C BC ####[facility] Rgnnvuuxzo3214 [place] [address]Dr. Shayyroxie Shahriar Platelet mean volume (Bld) [Entitic vol] 11.5 fL Normal 9.5-13.5 [facility] Comment on above: Performed By: #### C BC ####[facility] Edpvmzqhwy1093 [place] [address]Dr. Kalie Bess PLT 256 103/ul Normal 150-450 [facility] Comment on above: Performed By: #### C BC ####[facility] Vgggivstpn4289 [place] [address]Dr. Kalie Bess RBC 3.85 106/ul Critically low 4.20-5.40 [facility] Comment on above: Performed By: #### C BC ####[facility] Qcyoacpxmv3657 [place] [address]Dr. Kalie Bess WBC 13.0 103/ul Critically high 4.0-11.0 [facility] Comment on above: Performed By: #### C BC ####[facility] Jcpghgrpon8007 [place] [address]Dr. Kalie Bess CELL COUNT BODY FLUIDon 10-0 Clarity, Serous Clear Normal Clear [facility] Comment on above: Performed By: #### C CBFS ####[facility] Zhbebxggyg9884 [place] [address]DrCassie Bess Color, Serous Colorless Normal [facility] Comment on above: Result Comment: Mears rless to Pale Yellow/Straw Performed By: #### C CBFS ####[facility] Afosgehwxr1170 [place] [id number] Bess Comments: Normal [facility] Comment on above: Performed By: #### C CBFS ####[facility] Xtzrcyzjug2508 [place] [address]Dr. Kalie Bess Eosinophils/100 WBC (Bld) 0 % Normal Not Estab. [facility] Comment on above: Performed By: #### C CBFS ####[facility] Ofycguegkh4397 [place], [place] [address]Ac. Kalie Bess Lining Cells, Serous Normal [facility] Comment on above: Performed By: #### C CBFS ####[facility] Siyjuapeqi6674 [place], [place] [address]Tf. Kalie Bess Lymphocytes/100 WBC (Bld) 25 % Normal Not Estab. [facility] Comment on above: Performed By: #### C CBFS ####[facility] Jttlpcswuu5647 [place], [place] [address]Sd. Kalie Bess Macrophages, Serous 41 % Normal Not Estab. [facility] Comment on above: Performed By: #### C CBFS ####[facility] Hhchtqpksi4780 [place], [place] [address]To. Kalie Bess Nucleated Cells, Serous 73 /mm3 Normal 0-499 [facility] Comment on above: Result Comment: Pleu ral Fluid, with <1000 Nucleated cells/uL has been associated with transudates while >1000 uL may be seen in exudates. Performed By: #### C CBFS ####[facility] J[address]ogcvuuhy[address] [place], [place] [address]Wp. Kalie Bess Polys, Serous 34 % Critically high 0-24 [facility] Comment on above: Performed By: #### C CBFS ####[facility] Voryugpenl[address] [place], [place] [address]Sw. Kalie Bess RBC (Bld) [#/Vol] 0 10*6/uL Normal Not Estab. [facility] Comment on above: Performed By: #### C CBFS ####[facility] Tsrkgvynen9[address] [place], [place] [address]Fg. Kalie Bess GLUCOSE BODYFLUIDon 08-01-20 22 Glucose, Body Fluid 209 mg/dL Normal The [facility] Comment on above: Result Comment: ____ [...] - 288 : : : : . Shilo Huston V. Reference Intervals for Adults and Children 2007. Ninth edition (V9.1) [employer], [facility]; Foster: April 2009.The reference intervals and other method performance specificationshave not been established for this test. The test result should beintegrated into the clinical context for interpretation. Performed By: #### B FGLUC ####[facility] Rdcepvayap[address] [place] [address]. Kalie Bess LACTIC ACID DEHYDROGENASE (L D), BODY FLUon 08-01-2022 LD, Body Fluid 127 IU/L Normal The [facility] Comment on above: Result Comment: ____ [...] : <240 : : : : . Shilo Huston V. Reference Intervals for Adults and Children 2008. Ninth Edition (V9.1) [employer], [facility]; Foster: April 2009.The reference intervals and other method performance specificationshave not been established for this test. The test result should beintegrated into the clinical context for interpretation. Performed By: #### L DHBF ####[facility] Rsjgyhrhgc[address] [place], [place] [address]Dr. Kalie Bess POINT OF CARE GLUCOSEon 100 Glucose [Mass/Vol] 322 mg/dL Critically high -[address] [place] [address] Comment on above: Performed By: #### P OCGLUC ####[facility] Rrclfxawvu9066[address] [place], [place] [address]Dr. Kalie Bess Glucose [Mass/Vol] 299 mg/dL Critically high [address] [place] [address] Comment on above: Performed By: #### P OCGLUC ####[facility] Rmcnffgtes87[address] [place], [place] [address]Dr. Kalie Bess Glucose [Mass/Vol] 306 mg/dL Critically high -[address] [place] [address] Comment on above: Performed By: #### P OCGLUC ####[facility] Gbhiojlqtt6[address] [place] [address]Dr. Kalie Bess Glucose [Mass/Vol] 339 mg/dL Critically high [address] [place] [address] Comment on above: Performed By: #### P OCGLUC ####[facility] Ijibycabri3[address] [place], [place] [address]Dr. Kalie Bess PROF CHEM 8 (BAS METB)on Anion gap [Moles/Vol] 6.3 mmol/L [facility] Comment on above: Performed By: #### B MP ####[facility] Lvqjnjbxzn2838 [place] [id number]. Kalie Bess Calcium [Mass/Vol] 8.0 mg/dL Critically low 8.5-10.1 Th e [facility] Comment on above: Performed By: #### B MP ####[facility] Ejotbpmxgy7097 [place] [id number]. Kalie Bess Chloride [Moles/Vol] 97 mmol/L Critically low 98-107 [facility] Comment on above: Performed By: #### B MP ####[facility] Wumurzoabn3967 [place] [address]Dr. Kalie Bess CO2 [Moles/Vol] 35.6 mmol/L Critically high 21.0-32.0 [facility] Comment on above: Performed By: #### B MP ####[facility] Kmahbnaiur8624[address] [place], [place] [address]Dr. Kalie Bess Creatinine [Mass/Vol] 1.50 mg/dL Critically high 0.55-1.02 [facility] Comment on above: Performed By: #### B MP ####[facility] Zqscghprhx[address] [place], [place] [address]Dr. Kalie Bess EGFR-AF INDIAN 44 mL/min/1.73m2 Critically low >=60 [facility] Comment on above: Performed By: #### B MP ####[facility] Deqnlvuqef[address] [place], [place] [address]Dr. Kalie Bess EGFR-NON AF INDIAN 37 mL/min/1.73m2 Critically low >=60 [facility] Comment on above: Performed By: #### B MP ####[facility] Wxlnxjrbjq7107 [place] [address]Dr. Kalie Bess Glucose [Mass/Vol] 303 mg/dL Critically high 74-[address] [facility] Comment on above: Performed By: #### B MP ####[facility] Jqacyryqya4638[address] [place], [place] [address]Dr. Kalie Bess Potassium [Moles/Vol] 3.0 mmol/L Critically low 3.5-5.1 [facility] Comment on above: Performed By: #### B MP ####[facility] Wudkvxybvk4483 [place], [place] [address]Bf. Kalie Bess Sodium [Moles/Vol] 137 mmol/L Normal 136-145 [facility] Comment on above: Performed By: #### B MP ####[facility] Dffgfbiqhi9329 [place], [place] [address]Km. Kalie Bess Urea nitrogen [Mass/Vol] 27.0 mg/dL Critically high 7.0-18.0 [facility] Comment on above: Performed By: #### B MP ####[facility] Epiaafdvva1613 [place] [address]Dr. Kalie Bess Urea nitrogen/Creatinine [Mass ratio] 18.0 mg/mg Normal [facility] Comment on above: Performed By: #### B MP ####[facility] Khhiobtotg0660 [place] [id number]. Kalie Bess PROTEIN, TOTAL, BODY FLUIDon 08-01-2022 Protein, Body Fluid 1.4 g/dL Normal [facility] Comment on above: Result Comment: ____ [...] 2008. Ninth Edition (V9.1) [employer], [facility]; Foster: April 2009.The method performance specifications have not been established forthis test in body fluid. The test result should be integrated intothe clinical context for interpretation. Performed By: #### T PBF ####[facility] Kwzalmrehq57[address] [place], [place] [address]Dr. Kalie Bess XR CHEST 1 Von 08-01-2022 XR CHEST 1 V Normal The [facility] BNPon 07-31-2022 Natriuretic peptide B (Bld) [Mass/Vol] 4467.0 pg/mL Critically high <=900.0 [facility] Comment on above: Performed By: #### B PSYCHOTHERAPIST SOCIAL WORKER ####[facility] Pihyorxtvt0696[address] [place], [place] [address]Dr. Shayyroxie Bess CBC AUTO DIFFon 07-31-2022 BASO # 0.1 103/ul Normal 0.0-0.1 [facility] Comment on above: Performed By: #### C BC ####[facility] Slohuwwxbc7449[address] [place], [place] [address]Dr. Shayyroxie Bess Basophils/100 WBC (Bld) 0.5 % Normal 0.2-2.0 [facility] Comment on above: Performed By: #### C BC ####[facility] Xlrjlvraks7[address] [place], [place] [address]Dr. Kalie Bess EO # 0.4 103/ul Normal 0.0-0.7 [facility] Comment on above: Performed By: #### C BC ####[facility] Sbhmzzoarp6309[address] [place], [place] [address]Dr. Kalie Bess Eosinophils/100 WBC (Bld) 2.7 % Normal 0.9-7.0 The [facility] Comment on above: Performed By: #### C BC ####[facility] Kiwrapdkcq996[address] [place], [place] [address]Dr. Kalie Bess Erythrocyte distribution width (RBC) [Ratio] 13.9 % Normal 11.0-15.0 [facility] Comment on above: Performed By: #### C BC ####[facility] Xasgoihbrz4123 [place] [address]DrCassie Bess Hematocrit (Bld) [Volume fraction] 31.6 % Critically low 36.0-48.0 [facility] Comment on above: Performed By: #### C BC ####[facility] Lwsupbmdmm2872[address] [place], [place] [address]DrCassie Bess Hemoglobin (Bld) [Mass/Vol] 10.1 g/dL Critically low 12.0-16.0 [facility] Comment on above: Performed By: #### C BC ####[facility] Pfrkjrzzfd923[address] [place], [place] [address]DrCassie Bess IG # 0.15 10e3/ul Critically high 0.00-0.03 [facility] Comment on above: Performed By: #### C BC ####[facility] Zapkyvsnla527[address] [place], [place] [address]DrCassie Bess IG % 1.1 % Critically high 0.0-0.5 [facility] Comment on above: Performed By: #### C BC ####[facility] Wdbyzalllv3845[address] [place], [place] [address]DrCassie Bess LYMPH # 3.5 103/ul Normal 1.2-3.8 The [facility] Comment on above: Performed By: #### C BC ####[facility] Edzrwgahza2289[address] [place], [place] [address]DrCassie Bess Lymphocytes/100 WBC (Bld) 26.3 % Normal 20.5-60.0 The [facility] Comment on above: Performed By: #### C BC ####[facility] Chnpdaprtm7974[address] [place], [place] [address]DrCassie Bess MANUAL DIFF REQ NO Normal [facility] Comment on above: Performed By: #### C BC ####[facility] Jyjkwjnrip4794[address] [place], [place] [address]DrCassie Bess MCH (RBC) [Entitic mass] 28.5 pg Normal 26.7-34.0 [facility] Comment on above: Performed By: #### C BC ####[facility] Naaslocfww[address] [place] [address]DrCassie Bess MCHC (RBC) [Mass/Vol] 32.0 g/dL Normal 29.9-35.2 The [facility] Comment on above: Performed By: #### C BC ####[facility] Cwfepvtjut1836[address] [place], [place] [address]DrCassie Bess MCV (RBC) [Entitic vol] 89.3 fL Normal 81.0-99.0 The [facility] Comment on above: Performed By: #### C BC ####[facility] Tvhhrejkwh4058[address] [place], [place] [address]DrCassie Bess MONO # 1.1 103/ul Critically high 0.3-0.8 [facility] Comment on above: Performed By: #### C BC ####[facility] Jedtpavgsg1946[address] [place], [place] [address]DrCassie Bess Monocytes/100 WBC (Bld) 8.4 % Normal 1.7-12.0 The [facility] Comment on above: Performed By: #### C BC ####[facility] Znwinetxey954[address] [place], [place] [address]DrCassie Bess NEUT # 8.1 103/ul Critically high 1.4-6.5 [facility] Comment on above: Performed By: #### C BC ####[facility] Ohuntcrtef2904[address] [place], [place] [address]DrCassie Bess Neutrophils/100 WBC (Bld) 61.0 % Normal 43.0-75.0 The [facility] Comment on above: Performed By: #### C BC ####[facility] Hjputiokze6126[address] [place], [place] [address]DrCassie Bess Platelet mean volume (Bld) [Entitic vol] 11.6 fL Normal 9.5-13.5 The [facility] Comment on above: Performed By: #### C BC ####[facility] Agdlokkkhq3675[address] [place], [place] [address]Dr. Kalie Bess PLT 248 103/ul Normal 150-450 [facility] Comment on above: Performed By: #### C BC ####[facility] Zdzqzibvxi3772[address] [place], [place] [address]Dr. Kalie Bess RBC 3.54 106/ul Critically low 4.20-5.40 [facility] Comment on above: Performed By: #### C BC ####[facility] Luymrrumvo518[address] [place], [place] [address]Dr. Kalie Bess WBC 13.3 103/ul Critically high 4.0-11.0 [facility] Comment on above: Performed By: #### C BC ####[facility] Katdqeqmvd0676[address] [place], [place] [address]Dr. Kalie Bess CULTURE STERILE BODY FLUIDon 07-31-2022 CULTURE STERILE BODY FLUID Culture Observations: No growth at 72 hours. Normal The [facility] Comment on above: Performed By: #### S TBFCX ####[facility] Hbbbbhytgd5679[address] [place], [place] [address]Dr. Kalie Bess CYTOLOGYon 07-31-2022 SENT TO REF LAB 07/31/22 Normal [facility] Comment on above: Performed By: #### C YTO ####[facility] Bnhkkzeprq1487[address] [place], [place] [address]Dr. Kalie Bess ECHOCARDIO M/2D COMPLETEon 1 ECHOCARDIO M/2D COMPLETE Normal The [facility] ER URINE PROFILEon 2 Bilirubin Ql (U) Negative Normal NEGATIVE The [facility] Comment on above: Performed By: #### U MICRO, ERUR ####[facility] Lfigvdfobz6174[address] [place], [place] [address]Dr. Kalie Bess Clarity (U) CLEAR Normal CLEAR The [facility] Comment on above: Performed By: #### U MICRO, ERUR ####[facility] Sstpbdbflv1877[address] [place], [place] [address]Dr. Kalie Bess Color (U) LT. YELLOW Normal YELLOW The [facility] Comment on above: Performed By: #### U MICRO, ERUR ####[facility] Mzpabqupas[address] [place] [address]Dr. Kalie JAMIL A micrscopic examination will be performed if indicated. Normal The [facility] Comment on above: Performed By: #### U MICRO, ERUR ####[facility] Nfoegvirrs4437 [place] [address]Dr. Kalie Bess Glucose Ql (U) 100 mg/dl Abnormal NEGATIVE [facility] Comment on above: Performed By: #### U MICRO, ERUR ####[facility] Tvjvvqraki7389 [place] [address]Dr. Kalie Bess Hemoglobin Ql (U) SMALL Abnormal NEGATIVE [facility] Comment on above: Performed By: #### U MICRO, ERUR ####[facility] Xatzurrzlg045[address] [place], [place] [address]Dr. Kalie Bess Ketones Ql (U) Negative Normal NEGATIVE The [facility] Comment on above: Performed By: #### U MICRO, ERUR ####[facility] Ndvacebifd5066[address] [place], [place] [address]Dr. Kalie Bess LEUKOCYTES Negative Normal NEGATIVE The [facility] Comment on above: Performed By: #### U MICRO, ERUR ####[facility] Dkgxucrdnu1024[address] [place], [place] [address]Dr. Kalie Bess Nitrite Ql (U) Negative Normal NEGATIVE [facility] Comment on above: Performed By: #### U MICRO, ERUR ####[facility] Txeypmesvt6765[address] [place], [place] [address]Dr. Kalie Bess pH (U) 5.5 [pH] Normal 5-9 [facility] Comment on above: Performed By: #### U MICRO, ERUR ####[facility] Izmfirwmnd[address] [place], [place] [address]Dr. Kalie Bess Protein (U) [Mass/Vol] 100 mg/dL Abnormal NEGATIVE/ TRACE The [facility] Comment on above: Performed By: #### U MICRO, ERUR ####[facility] Cdusmuyblp1289 [place] [address]Dr. Kalie Bess SPEC GRAVITY 1.015 Normal 1.005-<=1.025 [facility] Comment on above: Performed By: #### U MICRO, ERUR ####[facility] Aloeutndmg5506 [place] [address]Dr. Kalie Bess UR MICRO IND INDICATED Normal [facility] Comment on above: Performed By: #### U MICRO, ERUR ####[facility] Ienskdekcn1728 [place] [address]Dr. Kalie Bess Urobilinogen Qn (U) 0.2 {Codi'U}/dL Normal 0.2 - 1. 0 The [facility] Comment on above: Performed By: #### U MICRO, ERUR ####[facility] Xruxopdblo1439 [place] [address]Dr. Kalie Bess GRAM STAINon 07-31-2022 COMMENTS NO ORGANISMS OBSERVED Normal The [facility] Comment on above: Performed By: #### G STAIN ####[facility] Aejxyafziq7389[address] [place], [place] [address]Dr. Kalie Bess DIPHTHEROIDS Normal The [facility] Comment on above: Performed By: #### G STAIN ####[facility] Vjlatkgutc9056[address] [place], [place] [address]Dr. Kalie Bess EPITHELIALS Normal The [facility] Comment on above: Performed By: #### G STAIN ####[facility] Uwmaizwcrm9[address] [place], [place] [address]Dr. Kalie Bess FUNGAL ELEMENTS Normal [facility] Comment on above: Performed By: #### G STAIN ####[facility] Tmcawvcalb[address] [place], [place] [address]Dr. Kalie Bess GRAM NEG BACILLI Normal [facility] Comment on above: Performed By: #### G STAIN ####[facility] Kmtrovaxzt9466[address] [place], [place] [address]Dr. Kalie Bess GRAM NEG DIPPLOCOCCI Normal The [facility] Comment on above: Performed By: #### G STAIN ####[facility] Uinidkxwma8185[address] [place], [place] [address]Dr. Kalie Bess GRAM POS BACILLI Normal [facility] Comment on above: Performed By: #### G STAIN ####[facility] Hydefedmef4686 [place] [address]Dr. Kalie Bess GRAM POSITIVE COCCI Normal [facility] Comment on above: Performed By: #### G STAIN ####[facility] Yzoncfgdlt3119 [place] [address]Dr. Kalie Bess GRAM STAIN SOURCE Pleural Fluid Normal [facility] Comment on above: Performed By: #### G STAIN ####[facility] Ityldepcmn5826 [place] [address]Dr. Kalie Bess GS_DIPTH Normal [facility] Comment on above: Performed By: #### G STAIN ####[facility] Hgirbfcqtf[address] [place], [place] [address]Dr. Kalie Bess WBC FEW Normal [facility] Comment on above: Performed By: #### G STAIN ####[facility] Ixkqyfuxqx9118 [place] [address]Dr. Kalie Bess POINT OF CARE GLUCOSEon Glucose [Mass/Vol] 314 mg/dL Critically high [address] [place] [address] Comment on above: Performed By: #### P OCGLUC ####[facility] Kehqlxotfn7479[address] [place], [place] [address]Dr. Kalie Bess Glucose [Mass/Vol] 190 mg/dL Critically high [address] [place] [address] Comment on above: Performed By: #### P OCGLUC ####[facility] Nzaysnxyki6124 [place] [address]Dr. Kalie Bess Glucose [Mass/Vol] 271 mg/dL Critically high [address] [place] [address] Comment on above: Performed By: #### P OCGLUC ####[facility] Kngqtykace4144 [place] [address]Dr. Kalie Bess PROF CHEM 8 (BAS METB)on Anion gap [Moles/Vol] 8.1 mmol/L [facility] Comment on above: Performed By: #### B MP ####[facility] Ipbxshomlo1325 [place] [address]Dr. Kalie Bess Calcium [Mass/Vol] 8.2 mg/dL Critically low 8.5-10.1 e [facility] Comment on above: Performed By: #### B MP ####[facility] Tswtvpgeaa7539 [place] [address]Dr. Kalie Bses Chloride [Moles/Vol] 102 mmol/L Normal 98-107 [facility] Comment on above: Performed By: #### B MP ####[facility] Rnrlslqjqy9926 [place] [address]Dr. Kalie Bess CO2 [Moles/Vol] 32.2 mmol/L Critically high 21.0-32.0 [facility] Comment on above: Performed By: #### B MP ####[facility] Etunjbtonq8953 [place] [address]Dr. Kalie Bess Creatinine [Mass/Vol] 1.25 mg/dL Critically high 0.55-1.02 [facility] Comment on above: Performed By: #### B MP ####[facility] Kfhyrtyppa3[address] [place], [place] [address]Dr. Kalie Bess EGFR-AF INDIAN 55 mL/min/1.73m2 Critically low >=60 [facility] Comment on above: Performed By: #### B MP ####[facility] Jugoriyiiw1318[address] [place], [place] [address]Dr. Kalie Bess EGFR-NON AF INDIAN 45 mL/min/1.73m2 Critically low >=60 [facility] Comment on above: Performed By: #### B MP ####[facility] Kriwpjonwl2924 [place] [address]Dr. Kalie Bess Glucose [Mass/Vol] 208 mg/dL Critically high 74-[address] [facility] Comment on above: Performed By: #### B MP ####[facility] Febjfszivg6877 [place] [address]Dr. Kalie Bess Potassium [Moles/Vol] 3.3 mmol/L Critically low 3.5-5.1 [facility] Comment on above: Performed By: #### B MP ####[facility] Qyyqtqondd8529[address] [place], [place] [address]Dr. Kalie Bess Sodium [Moles/Vol] 139 mmol/L Normal 136-145 [facility] Comment on above: Performed By: #### B MP ####[facility] Oavenofojo5603 [place] [address]Dr. Kalie Bess Urea nitrogen [Mass/Vol] 23.0 mg/dL Critically high 7.0-18.0 [facility] Comment on above: Performed By: #### B MP ####[facility] Bbhhpvweln07[address] [place], [place] [address]Dr. Kalie Bess Urea nitrogen/Creatinine [Mass ratio] 18.4 mg/mg Normal [facility] Comment on above: Performed By: #### B MP ####[facility] Rjgmgxckoc1575[address] [place], [place] [address]Dr. Kalie Bess TROPONIN, HIGH SENSITIVITYon 07-31-2022 HSTROP 19.2 pg/mL Normal 4.0-51.3 [facility] Comment on above: Result Comment: CUT- OFF POINTS HAVE BEEN ESTABLISHED BASED ON THE FOURTH UNIVERSAL DEFINITIONS OF MYOCARDIALINFARCTION. THE UPPER REFERENCE LIMIT (URL) OF TROPONIN, DEFINED THE 99TH PERCENTILE OFcTnI DISTRIBUTION IN A REFERENCE POPULATION, HAS BEEN CONFIRMED THE DECISION THRESHOLDFOR [place] DIAGNOSIS. Performed By: #### H STROPN ####[facility] Lwlssblrnx022[address] [place], [place] [address]Dr. Kalie Bess URINE MICROSCOPIC ONLYon BACTERIA TRACE Abnormal NONE SEEN [facility] Comment on above: Performed By: #### U MICRO, ERUR ####[facility] Xbzpxiheds6[address] [place], [place] [address]Dr. Kalie Bess Bacteria identified Cx Nom (U) NOT INDICATED Normal The [facility] Comment on above: Performed By: #### U MICRO, ERUR ####[facility] Vbhbfbxdvh4698[address] [place], [place] [address]Dr. Kalie Bess CAST NONE SEEN Normal NONE SEEN The [facility] Comment on above: Performed By: #### U MICRO, ERUR ####[facility] Dxfrdcugfq254[address] [place], [place] [address]Dr. Kalie Bess Crystals LM Nom (Urine sed) NONE SEEN Normal NONE SEEN [facility] Comment on above: Performed By: #### U MICRO, ERUR ####[facility] Gozurmgbew4724 [place] [address]Dr. Shayyroxie Shahriar Epithelial cells LM Ql (Urine sed) NONE SEEN Normal NONE SEEN /RARE [facility] Comment on above: Performed By: #### U MICRO, ERUR ####[facility] Dmmxzucqsu7236 [place] [address]Dr. Kalie Bess MUCOUS NONE SEEN Normal NONE SEEN The [facility] Comment on above: Performed By: #### U MICRO, ERUR ####[facility] Awrkmicuhg8571 [place] [address]Dr. Kalie Bess RBC NONE SEEN Abnormal 0-2 [facility] Comment on above: Performed By: #### U MICRO, ERUR ####[facility] Jwclbibgnd35[address] [place], [place] [address]Dr. Kalie Bess WBC NONE SEEN Normal NONE SEEN The [facility] Comment on above: Performed By: #### U MICRO, ERUR ####[facility] Pnvnadwwku[address] [place], [place] [address]Dr. Kalie Bess XR CHEST 1 Von 07-31-2022 XR CHEST 1 V Normal [facility] XR CHEST 1 V Normal [facility] [facility] ACETONE SERUMon 07-30-2022 ACETONE Negative Normal NEGATIVE The [facility] Comment on above: Performed By: #### A CETON ####[facility] [address] [place], [place] [address]Dr. Kalie Bess BNPon 07-30-2022 Natriuretic peptide B (Bld) [Mass/Vol] 6846.0 pg/mL Critically high <=900.0 The [facility] Comment on above: Performed By: #### L IPA, BNP, HSTROPN, CMP ####[facility] X[address] [place], [place] [address]Dr. Kalie Bess CBC AUTO DIFFon 07-30-2022 BASO # 0.1 103/ul Normal 0.0-0.1 The [facility] Comment on above: Performed By: #### C BC ####[facility] Yse[address] [place], [place] [address]Dr. Kalie Bess Basophils/100 WBC (Bld) 0.6 % Normal 0.2-2.0 The [facility] Comment on above: Performed By: #### C BC ####[facility] Opprq[address] [place] [address]Dr. Kalie Bess EO # 0.2 103/ul Normal 0.0-0.7 The [facility] Comment on above: Performed By: #### C BC ####[facility] F[address]zapo[address] [place] [address]Dr. Kalie Bess Eosinophils/100 WBC (Bld) 1.3 % Normal 0.9-7.0 The [facility] Comment on above: Performed By: #### C BC ####[facility] Xm[address] [place], [place] [address]Dr. Kalie Bess Erythrocyte distribution width (RBC) [Ratio] 13.9 % Normal 11.0-15.0 The [facility] Comment on above: Performed By: #### C BC ####[facility] X[address] [place], [place] [address]Dr. Kalie Bess Hematocrit (Bld) [Volume fraction] 34.9 % Critically low 36.0-48.0 The [facility] Comment on above: Performed By: #### C BC ####[facility] Opfej[address] [place], [place] [address]Dr. Kalie Bess Hemoglobin (Bld) [Mass/Vol] 11.2 g/dL Critically low 12.0-16.0 The [facility] Comment on above: Performed By: #### C BC ####[facility] [address] [place], [place] [address]Dr. Kalie Bess IG # 0.24 10e3/ul Critically high 0.00-0.03 The [facility] Comment on above: Performed By: #### C BC ####[facility] [address] [place], [place] [address]Dr. Kalie Bess IG % 1.6 % Critically high 0.0-0.5 The [facility] Comment on above: Performed By: #### C BC ####[facility] [address] [place] [id number]. Kalie Shahriar LYMPH # 4.0 103/ul Critically high 1.2-3.8 The [facility] Comment on above: Performed By: #### C BC ####[facility] Jljdpjwfzx9[address] [place] [id number]. Kalie Shahriar Lymphocytes/100 WBC (Bld) 25.8 % Normal 20.5-60.0 The [facility] Comment on above: Performed By: #### C BC ####[facility] [address] [place] [address]Dr. Shayyroxie Bess MANUAL DIFF REQ NO Normal The [facility] Comment on above: Performed By: #### C BC ####[facility] F[address]bxropkc[address] [place] [address]Dr. Kalie Shahriar MCH (RBC) [Entitic mass] 28.6 pg Normal 26.7-34.0 The [facility] Comment on above: Performed By: #### C BC ####[facility] [address] [place] [address]Dr. Kalie Shahriar MCHC (RBC) [Mass/Vol] 32.1 g/dL Normal 29.9-35.2 The [facility] Comment on above: Performed By: #### C BC ####[facility] K[address]pmutm[address] [place] [address]Dr. Shayyroxie Bess MCV (RBC) [Entitic vol] 89.0 fL Normal 81.0-99.0 The [facility] Comment on above: Performed By: #### C BC ####[facility] [address] [place] [address]Dr. Kalie Bess MONO # 1.2 103/ul Critically high 0.3-0.8 The [facility] Comment on above: Performed By: #### C BC ####[facility] W[address]pfqnyfv[address] [place] [address]Dr. Kalie Bess Monocytes/100 WBC (Bld) 8.1 % Normal 1.7-12.0 The [facility] Comment on above: Performed By: #### C BC ####[facility] [address] [place], [place] [address]Ad. Kalie Bess NEUT # 9.6 103/ul Critically high 1.4-6.5 The [facility] Comment on above: Performed By: #### C BC ####[facility] [address] [place], [place] [address]Nz. Kalie Bess Neutrophils/100 WBC (Bld) 62.6 % Normal 43.0-75.0 The [facility] Comment on above: Performed By: #### C BC ####[facility] [address]rwksjc[address] [place] [id number]. Kalie Bess Platelet mean volume (Bld) [Entitic vol] 11.2 fL Normal 9.5-13.5 The [facility] Comment on above: Performed By: #### C BC ####[facility] Jrkfaocjna6[address] [place], [place] [address]Tu. Kalie Bess PLT 308 103/ul Normal 150-450 The [facility] Comment on above: Performed By: #### C BC ####[facility] [address] [place], [place] [address]Zr. Kalie Bess RBC 3.92 106/ul Critically low 4.20-5.40 The [facility] Comment on above: Performed By: #### C BC ####[facility] J[address]ptwr[address]lfv74[address] [place], [place] [address]Tv. Kalie Bess WBC 15.4 103/ul Critically high 4.0-11.0 The [facility] Comment on above: Performed By: #### C BC ####[facility] Wurbheqgjc[address] [place] [id number]. Kalie Bess CT ABD/PELV W CONon 07-30-[address] ABD/PELV W CON Normal The [facility] CTA CHEST WO W CONon 022 CTA CHEST WO W CON Normal The [facility]on SARS-CoV-2 (COVID-19) RNA CIPRIANO+probe Ql (Unsp spec) Not detected Normal NOT DETECTED The [facility] Comment on above: Result Comment: When diagnostic [...] for this test is supported by the Heating Technician of Health and Human Service's declaration that [...] be used). Performed By: #### C VDTBH ####[facility] Qcnyfzayfo[address] [place], [place] [address]Dr. Kalie Bess LACTATE/LACTIC ACIDon 2021 Lactate [Moles/Vol] 1.5 mmol/L Normal 0.4-1.9 [facility] Comment on above: Performed By: #### L ACT ####[facility] W[address] [place], [place] [address]Dr. Kalie Bess LIPASEon 07-30-2022 Lipase [Catalytic activity/Vol] 152.0 U/L Normal 73.0-393.0 The [facility] Comment on above: Performed By: #### L IPA, BNP, HSTROPN, CMP ####[facility] F[address]uxfibv[address] [place], [place] [address]Dr. Kalie Bess PH VENOUS BLOODon 07-30-2022 PCO2 VENOUS 44.9 mmHg Normal 40.0-52.0 The [facility] Comment on above: Performed By: #### P HVEN ####[facility] Xrodugfdxa[address] [place], [place] [address]Dr. Kalie Bess pH VENOUS 7.451 Critically high 7.330-7.430 The [facility] Comment on above: Performed By: #### P HVEN ####[facility] B[address]ibzuzn[address] [place], [place] [address]Dr. Kalie Bess PROF 14(COMP METB)on 022 Albumin [Mass/Vol] 2.3 g/dL Critically low 3.4-5.0 Th e [facility] Comment on above: Performed By: #### L IPA, BNP, HSTROPN, CMP ####[facility] P[address]llcdagkh[address] [place] [address]Dr. Kalie Bess Albumin/Globulin [Mass ratio] 0.5 {ratio} Normal [facility] Comment on above: Performed By: #### L IPA, BNP, HSTROPN, CMP ####[facility] Cvmtktkyse[address] [place] [address]Dr. Kalie Bess ALP [Catalytic activity/Vol] 100 U/L Normal 46-116 [facility] Comment on above: Performed By: #### L IPA, BNP, HSTROPN, CMP ####[facility] Rhpudcbsmu[address] [place] [address]Dr. Kalie Bess ALT [Catalytic activity/Vol] 18 U/L Normal 14-59 [facility] Comment on above: Performed By: #### L IPA, BNP, HSTROPN, CMP ####[facility] Edihohpjyf24[address] [place] [address]Dr. Kalie Bess Anion gap [Moles/Vol] 6.6 mmol/L Normal [facility] Comment on above: Performed By: #### L IPA, BNP, HSTROPN, CMP ####[facility] P[address]ahrgasdl26[address] [place] [address]Dr. Kalie Bess AST [Catalytic activity/Vol] 10 U/L Critically low 15-37 [facility] Comment on above: Performed By: #### L IPA, BNP, HSTROPN, CMP ####[facility] Moes[address]igk[address] [place] [address]Dr. Kalie Bess Bilirubin [Mass/Vol] 0.3 mg/dL Normal 0.2-1.0 [facility] Comment on above: Performed By: #### L IPA, BNP, HSTROPN, CMP ####[facility] M[address]xjc[address] [place], [place] [address]Dr. Kalie Bess Calcium [Mass/Vol] 8.7 mg/dL Normal 8.5-10.1 The [facility] Comment on above: Performed By: #### L IPA, BNP, HSTROPN, CMP ####[facility] Provtorlob[address] [place] [address]Dr. Kalie Bess Chloride [Moles/Vol] 99 mmol/L Normal 98-107 The [facility] Comment on above: Performed By: #### L IPA, BNP, HSTROPN, CMP ####[facility] Ogioqnzqbk[address] [place] [address]Dr. Kalie Bess CO2 [Moles/Vol] 31.1 mmol/L Normal 21.0-32.0 The [facility] Comment on above: Performed By: #### L IPA, BNP, HSTROPN, CMP ####[facility] Npgdteenat[address] [place] [address]Dr. Kalie Bess Creatinine [Mass/Vol] 1.34 mg/dL Critically high 0.55-1.02 The [facility] Comment on above: Performed By: #### L IPA, BNP, HSTROPN, CMP ####[facility] Nsjmkqkyob[address] [place] [address]Dr. Kalie Bess EGFR-AF INDIAN 51 mL/min/1.73m2 Critically low >=60 The [facility] Comment on above: Performed By: #### L IPA, BNP, HSTROPN, CMP ####[facility] Vpprdteufr[address] [place] [address]Dr. Kalie Bess EGFR-NON AF INDIAN 42 mL/min/1.73m2 Critically low >=60 The [facility] Comment on above: Performed By: #### L IPA, BNP, HSTROPN, CMP ####[facility] Hjqcxtqmpy4[address] [place] [address]Dr. Kalie Bess Globulin (S) [Mass/Vol] 4.4 g/dL Normal [facility] Comment on above: Performed By: #### L IPA, BNP, HSTROPN, CMP ####[facility] Eevxtyawhl[address] [place] [address]Dr. Kalie Bess Glucose [Mass/Vol] 226 mg/dL Critically high 74-106 [facility] Comment on above: Performed By: #### L IPA, BNP, HSTROPN, CMP ####[facility] Ay[address]thqs[address] [place], [place] [address]Dr. Kalie Bess Potassium [Moles/Vol] 3.7 mmol/L Normal 3.5-5.1 [facility] Comment on above: Performed By: #### L IPA, BNP, HSTROPN, CMP ####[facility] Uqvozvuuoh85[address] [place] [address]Dr. Kalie Bess Protein [Mass/Vol] 6.7 g/dL Normal 6.4-8.2 [facility] Comment on above: Performed By: #### L IPA, BNP, HSTROPN, CMP ####[facility] M[address]qwfgh[address] [place], [place] [address]Dr. Kalie Bess Sodium [Moles/Vol] 133 mmol/L Critically low 136-145 Th [facility] Comment on above: Performed By: #### L IPA, BNP, HSTROPN, CMP ####[facility] Vkvqupglzi[address] [place], [place] [address]Dr. Kalie Bess Urea nitrogen [Mass/Vol] 23.0 mg/dL Critically high 7.0-18.0 [facility] Comment on above: Performed By: #### L IPA, BNP, HSTROPN, CMP ####[facility] Eaiifwoffl4[address] [place], [place] [address]Dr. Kalie Bess Urea nitrogen/Creatinine [Mass ratio] 17.2 mg/mg Normal [facility] Comment on above: Performed By: #### L IPA, BNP, HSTROPN, CMP ####[facility] [address]rgonv[address] [place], [place] [address]Dr. Kalie Bess PROTIMEon 07-30-2022 INR Coag (PPP) [Relative time] 1.08 {INR} Normal [facility] Comment on above: Performed By: #### P TT, PT ####[facility] [address] [place] [address]. Kalie Bess INR GUIDELINES SEE BELOW Normal The [facility] Comment on above: Result Comment: GABRIELLA RED INR: 2.0 - 3.0 CONDITIONS NOT LISTED BELOW 2.5 - 3.5 FOR PROSTHETIC HEART VALVE REPLACEMENT 2.5 - 3.5 RECURRENT THROMBOSIS Performed By: #### P TT, PT ####[facility] [address]pwd[address] [place], [place] [address]Dr. Kalie Bess PT Coag (PPP) [Time] 11.6 s Normal 9.0-11.6 The [facility] Comment on above: Performed By: #### P TT, PT ####[facility] [address] [place] [address]. Kalie Bess PTTon 07-30-2022 aPTT Coag (Bld) [Time] 28.0 s Normal 22.3-36.2 The [facility] Comment on above: Performed By: #### P TT, PT ####[facility] [address] [place] [address]. Kalie Bess TROPONIN, HIGH SENSITIVITYon 07-30-2022 HSTROP 29.4 pg/mL Normal 4.0-51.3 The [facility] Comment on above: Result Comment: CUT- OFF POINTS HAVE BEEN ESTABLISHED BASED ON THE FOURTH UNIVERSAL DEFINITIONS OF MYOCARDIALINFARCTION. THE UPPER REFERENCE LIMIT (URL) OF TROPONIN, DEFINED THE 99TH PERCENTILE OFcTnI DISTRIBUTION IN A REFERENCE POPULATION, HAS BEEN CONFIRMED THE DECISION THRESHOLDFOR [place] DIAGNOSIS. Performed By: #### H STROPN ####[facility] [address] [place] [address]. Kalie Bess HSTROP 28.3 pg/mL Normal 4.0-51.3 The [facility] Comment on above: Result Comment: CUT- OFF POINTS HAVE BEEN ESTABLISHED BASED ON THE FOURTH UNIVERSAL DEFINITIONS OF MYOCARDIALINFARCTION. THE UPPER REFERENCE LIMIT (URL) OF TROPONIN, DEFINED THE 99TH PERCENTILE OFcTnI DISTRIBUTION IN A REFERENCE POPULATION, HAS BEEN CONFIRMED THE DECISION THRESHOLDFOR [place] DIAGNOSIS. Performed By: #### L IPA, BNP, HSTROPN, CMP ####[facility] [address] [place], [place] [address]DrCassie Bess Outside Recordson 07-25-2022 Outside Records [id number] D:127 [facility] Physician Orderon 07-25-2022 Physician Order [id number] D:127 [facility] Encounters Encounter Date Encounter Type Care Provider Facility Start: 11-25-2023 ambulatory RINA BENAVIDES Not Availa ble Start: 11-25-2023 End: 11-25-2023 ambulatory AYAAN DERAS Not Available Start: 11-25-2023 End: 11-25-2023 ambulatory JOSE F [facility] Start: 11-10-2023 End: 11-10-2023 ambulatory RINA Jeremiah MAKAYLA Not Available Start: 04-30-2023 End: 04-30-2023 ambulatory Carolyn Ramsey Other [facility] [employer] Other Start: 04-30-2023 Telephone encounter Carolyn Ramsey [employer] Start: 03-19-2023 End: 03-19-2023 ambulatory Imad Braulio Facility:[facility] Start: 03-18-2023 End: 03-18-2023 ambulatory Ayaan Deras Facility:[facility] Start: 03-11-2023 End: 03-11-2023 ambulatory Ayaan Deras Facility:[facility] Start: 02-12-2023 End: 02-13-[address] AYAAN DERAS Facility:[facility] Start: 01-29-2023 End: 2023 ambulatory HIEU TAMLYEren . Facility:[facility] Start: 01-22-2023 End: 01-23-2023 ambulatory [...] 11-30-2022 Evaluation and management of inpatient HIEU FELDMANLYN . Facility:[facility] Start: 07-30-2022 End: 08-05-2022 Evaluation and management of inpatient DR AYAAN DERAS Facility:[facility] Start: 04-20-2022 End: 04-20-[address] AYAAN DERAS Facility: Procedures Date Procedure Procedure Detail Performing Clinician [...] Date Payer Category Payer Self-pay 1970 Unknown [id number] 2.16.84 [id number] 1971 Unknown [id number] 2.16.84 0.1.496264.3.579.2593 1971 Unknown [id number] 2.16.84 0.1.021715.3.579.2 1971 Unknown [id number] 2.16.84 0.1.845112.3.579.2593 1971 Unknown [id number] 2.16.84 0.1.806442.3.579.2 1971 Unknown [id number] 2.16.84 0.1.127731.3.579.2.593 1971 Unknown [id number] 2.16.84 0.1.680955.3.579.2.593 1971 Unknown [id number] 2.16.84 0.1.975034.3.579.2.593 1971 Unknown [id number] 2.16.84 0.1.879703.3.579.2.593 1971 Unknown [id number] 2.16.84 0.1.072977.3.579.2.593 1971 Unknown [id number] 2.16.84 0.1.405544.3.579.2.593 1971 Unknown [id number] 2.16.84 0.1.799794.3.579.2.593 1971 Unknown [id number] 2.16.84 0.1.335071.3.579.2.593 1971 Unknown [id number] 2.16.84 0.1.781635.3.579.2.593 1971 Unknown [id number] 2.16.84 0.1.750690.3.579.2.1259 1971 Unknown [id number] 2.16.84 0.1.273454.3.579.2.1259 1971 Unknown [id number] 2.16.84 0.1.750550.3.579.2.1259 1959 Unknown [id number] Unknown [id number] 2.16.8 40.1.206995.3.579.2.531 Unknown [id number] 2.16.8 40.1.802684.3.579.2.531 Unknown [id number] 2.16.8 40.1.406751.3.579.2.531 Social History Date Type Detail Facility Sex Assigned At [employer] Other Progress note 11-25-2023 Note Date & Type Note Facility 11-25-2023 Note Patient here for [facility] for CHF. She was seen as inpatient consult by Dr. Miranda on 10/30/2023. Former smoker, but now vapes. She is not taking isosorbide or spironolactone, as she states she was advised to ask cardiology if she needs these. Still pretty weak s/p hospital discharge. Says she's fallen a few times and isn't sure if she's passed out or not. C/o SOB w/wo exertion and LE edema. Denies chest pain and palpitations. Review of Systems Cardiovascular: Positive for dyspnea on exertion and leg swelling. Respiratory: Positive for shortness of breath. Musculoskeletal: Positive for falls and muscle weakness. Neurological: Positive for weakness. All other systems reviewed and are negative. [facility] Progress note 11-25-2023 Note Date & Type Note Facility 11-25-2023 Note Cardiovascular Medic in[facility] SUBJECTIVE No chief complaint on file. Sourav Roque is a 53 y.o. female here for follow-up. HPI PMHx: HFpEF, COPD, HTN, CKD stage 3B, DM type II, obesity Patient here for follow up [facility] for CHF. She was seen as inpatient consult by Dr. Miranda on 10/30/2023. Former smoker, but now vapes. She is not taking isosorbide or spironolactone, as she states she was advised to ask cardiology if she needs these. Still pretty weak s/p hospital discharge. Says she's fallen a few times and isn't sure if she's passed out or not. C/o SOB w/wo exertion and LE edema. Denies chest pain and palpitations. 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 She has been off of work since her recent admission. Her weight at discharge was at 240 and now she is at 214. She has been feeling better overall. Her breathing is getting better. She c/o weakness, slowly getting better. Leg swelling is improving. She still has some residual swelling, L>R. Denies CP, dizziness/LH, palpitations. --------- DS: Diagnosis Discharge Diagnosis (1) Acute on chronic heart failure with preserved ejection fraction (HFpEF): (2) Acute hypoxic respiratory failure: (3) COVID-19: (4) Pneumonia: (5) TROY (acute kidney injury): (6) Diarrhea: (7) Hyponatremia: (8) Hypokalemia: (9) Type 2 diabetes 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: (10) Hypertension: (11) COPD (chronic obstructive pulmonary disease): (12) Stage 3b chronic kidney disease (CKD): (13) Morbid obesity: Plan Sinus tachycardia, uncontrolled hypertension, acute on chronic heart failure with preserved ejection fraction (HFpEF) Leukocytosis, acute hypoxic respiratory failure with left lower lobe pneumonia: Secondary to acute COVID-19 with acute exacerbation of COPD TROY (acute kidney injury) Diarrhea Hyponatremia Hypokalemia Type 2 diabetes 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 Hypertension Stage 3b chronic kidney disease (CKD) Morbid obesity with severe protein calorie malnutrition Hypercalcemia-with a low albumin and normal calcium she is hypercalcemic DS: Summary Hospital Course Hospital Course: Patient presented to the emergency with increasing shortness of breath. Found to have acute exacerbation of COPD secondary to acute COVID-19 pneumonia complicated by acute combined congestive heart failure. Further complicated by acute C. difficile colitis. Patient was diuresed, consult to cardiology, when I saw her on day 3 I increased her diuresis to a Bumex drip. She did this over 2 days. Excellent diuresis with that with over 5 L out. Still has significant peripheral edema as well as some edema of her abdominal wall. This is likely to persist. She was placed on oral diuresis yesterday with improvement in her BUN and creatinine as well as improvement in her BNP. Diarrhea is slowly improving. Related to the COVID-19 and acute hypoxia she has been weaned off of Vapotherm and is now down to room air. She is to wear her BiPAP at nighttime. There is no significant desaturations noted at nighttime. Discussed all this with patient although reluctantly she was willing to be discharged home. Nothing further really to do while she is here in the hospital since she is on mostly p.o. medication at this time. Follow-up with her PCP within the next week. Patient Active Problem List Diagnosis Anemia Bilateral leg edema Combined hyperlipidemia Diabetic peripheral neuropathy (CMS/HCC) Diastolic heart failure (CMS/HCC) Diverticulitis DUB (dysfunctional uterine bleeding) Excessive bleeding in premenopausal period GERD without esophagitis History of hysterectomy Insomnia due to medical condition longterm current use of insulin ([facility]) Other dysphagia Radiculopathy, lumbar region Tobacco dependence Type 2 diabetes 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 ([facility]) Past Medical History: Diagnosis Date CHF (congestive heart failure) ([facility]) Chronic kidney disease COPD (chronic obstructive pulmonary disease) ([facility]) Diabetes mellitus ([facility]) Hypertension Hypokalemia Hyponatremia Family History Problem Relation Name Age of Onset COPD Mother Heart failure Mother Heart attack Mother's Brother Social History Tobacco Use Smoking status: Every Day Types: Cigarettes Smokeless tobacco: Never Substance Use Topics Alcohol use: Not Currently No Known Allergies ROS Cardiovascular: Positive for dyspnea on exertion and leg swelling. Respiratory: Positive for shortness of breath. Musculoskeletal: Positive for falls and muscle weakness. Neurological: Positive for weakness. All other systems reviewed and are negative. OBJECTIVE Visit Vitals BP 134/84 (BP Location: Right wrist, Patient Position: Sitting) Pulse 78 Ht 1.473 m (4' 10 ) Wt 98 kg (216 lb) SpO2 95% BMI 45.14 kg/m??? Smoking Status Every Day BSA 2 m??? Medications: Current Outp (more content not included)... [facility] Evaluation note Note Date & Type Note Facility Evaluation note No Information [facility] [employer] Other History general Narrative - Reported Note [...] tissue infection in the left breast 11/2022 [employer] Other Summary Purpose Family History No Family History Records FoundNo Family History Records FoundNo Family History Records FoundNo Family History Records FoundNo Family History Records Found Advance Directives No Advanced Directives Records FoundNo Advanced Directives Records FoundNo Advanced Directives Records FoundNo Advanced Directives Records FoundNo Advanced Directives Records Found Additional Source Comments INFORMATION SOURCE (unrecogn ized section and content) DATE CREATED AUTHOR 07/29/2022 [facility] [employer] [facility] DATE CREATED AUTHOR AUTHOR'S ORGANIZ ATLEAH 03/11/2023 [facility] DATE CREATED AUTHOR AUTHOR'S ORGANIZ ATION 08/01/2023 [facility] Hospital DATE CREATED AUTHOR AUTHOR'S ORGANIZ ATION 11/27/2023 [facility] EPIC DATE CREATED AUTHOR AUTHOR'S ORGANIZ ATION 12/10/2023 [facility] REASON FOR VISIT (unrecogniz ed section and [...] BE BASED ON THE PRIMARY CLINICAL RECORDS. [facility]. provides no warranty or guarantee of the accuracy or completeness of information in this document.
== END 2023-12-11 12:29 | disposition home or self-care (01) ==
LOC: VC 12:28
PROVIDERS: PCP Nurse Practitioner Family; Visit Provider Nurse Practitioner Family
DX: M79.604 Pain in right leg (principal); M79.605 Pain in left leg; R60.0 Localized edema
CPT/HCPCS: 93970; G0463

== ENCOUNTER 2025-02-22 19:54 | Emergency (ER) | payer SELFPAY ==
[2025-02-22 20:12] VITALS: BP 170/80; PULSE 85; TEMP 36.7; O2SAT 99; BMI 42.4
--- NOTE | 2025-02-22 20:45 | ED.GENADUL1 ---
Documented by User: Candice Saldana 02/22/25 22:07 HPI HPI - General Adult General Chief complaint: Skin/Abscess/Foreign Body Stated complaint: rash Time Seen by Provider: 02/22/25 20:20 Source: patient Mode of arrival: walk-in Limitations: no limitations History of Present Illness HPI narrative: 55 year old female presents to the ED for low abd discomfort, rash, open wounds. Her family member found the wound 02/19/25 due to noticing a foul odor. The wound and rash are located in the skin fold. She has a hard area with bruising to her right lower abdomen. Denies fever, chills, injury, N/V/D, urinary sx. She is diabetic. She is not taking any medication at this time due to not having insurance. Related Data Home Medications ?Medication ?Instructions ?Recorded ?Confirmed atorvastatin 40 mg tablet 40 mg PO DAILY 10/30/23 02/22/25 dapagliflozin propanediol 10 mg 10 mg PO DAILY 10/30/23 02/22/25 tablet (Farxiga) ferrous sulfate 325 mg (65 mg 325 mg PO DAILY 10/30/23 02/22/25 iron) tablet insulin glargine 100 unit/mL (3 50 unit subcut DAILY 10/30/23 02/22/25 mL) subcutaneous pen (Lantus Solostar U-100 Insulin) isosorbide mononitrate 60 mg 60 mg PO DAILY 10/30/23 02/22/25 tablet,extended release 24 hr lidocaine 5 % topical patch 1 patch topical Q24H 10/30/23 02/22/25 lisinopril 20 mg tablet 20 mg PO DAILY 10/30/23 02/22/25 metformin 500 mg tablet,extended 1,000 mg PO DAILY 10/30/23 02/22/25 release 24 hr pantoprazole 40 mg tablet,delayed 40 mg PO DAILY 10/30/23 02/22/25 release potassium chloride 10 mEq 10 meq PO DAILY 10/30/23 02/22/25 capsule,extended release spironolactone 25 mg tablet 25 mg PO DAILY 10/30/23 02/22/25 temazepam 15 mg capsule 15 mg PO .hs PRN sleep 10/30/23 02/22/25 trazodone 100 mg tablet 100 mg PO .hs PRN insomnia 10/30/23 02/22/25 Previous Rx's ?Medication ?Instructions ?Recorded cefdinir 300 mg capsule 600 mg (2 x 300 mg) PO DAILY #20 11/03/23 caps clonidine HCl 0.2 mg tablet 0.2 mg PO Q8H #90 tabs 11/03/23 furosemide 40 mg tablet (Lasix) 80 mg (2 x 40 mg) PO QAM #60 tabs 11/03/23 metoprolol tartrate 25 mg tablet 50 mg (2 x 25 mg) PO BID #120 tabs 11/03/23 vancomycin 125 mg capsule 125 mg PO Q6H 7 days #28 caps 11/03/23 Allergies Allergy/AdvReac Type Severity Reaction Status Date / Time latex Allergy Unknown rash Verified 02/22/25 20:12 Opioid HPI Opioid Management Most Recent Opioid Data: Last Pain Scale 0 11/01/23, 23:21 Review of Systems ROS Constitutional Denies: fever or chills Cardiovascular Denies: chest pain Respiratory Denies: shortness of breath Gastrointestinal Reports: abdominal pain; Denies: nausea, vomiting or diarrhea Genitourinary Denies: painful urination Musculoskeletal Denies: back pain Integumentary/Breast Reports: rash, skin pain, sores and new lesion Neurological Denies: headache PFSH PFSH Medical History Morbid obesity ?E66.01 - Morbid (severe) obesity due to excess calories (ICD-10) Acute hypoxic respiratory failure ?J96.01 - Acute respiratory failure with hypoxia (ICD-10) TROY (acute kidney injury) ?N17.9 - Acute kidney failure, unspecified (ICD-10) Stage 3b chronic kidney disease (CKD) ?N18.32 - Chronic kidney disease, stage 3b (ICD-10) Type 2 diabetes 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 ?E11.65 - Type 2 diabetes 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 (ICD-10) Acute on chronic heart failure with preserved ejection fraction (HFpEF) ?I50.33 - Acute on chronic diastolic (congestive) heart failure (ICD-10) COPD (chronic obstructive pulmonary disease) ?J44.9 - Chronic obstructive pulmonary disease, unspecified (ICD-10) Diarrhea ?R19.7 - Diarrhea, unspecified (ICD-10) Hyponatremia ?E87.1 - Hypo-osmolality and hyponatremia (ICD-10) COVID-19 ?U07.1 - COVID-19 (ICD-10) Hypokalemia ?E87.6 - Hypokalemia (ICD-10) Pneumonia ?J18.9 - Pneumonia, unspecified organism (ICD-10) Hypertension ?I10 - Essential (primary) hypertension (ICD-10) Chronic heart failure with preserved ejection fraction (HFpEF) ?I50.32 - Chronic diastolic (congestive) heart failure (ICD-10) Hypokalemia ?E87.6 - Hypokalemia (ICD-10) Hypertension ?I10 - Essential (primary) hypertension (ICD-10) Elevated systolic blood pressure reading without diagnosis of hypertension ?R03.0 - Elevated blood-pressure reading, without diagnosis of hypertension (ICD-10) Acute kidney injury superimposed on chronic kidney disease ?N17.9 - Acute kidney failure, unspecified (ICD-10) ?N18.9 - Chronic kidney disease, unspecified (ICD-10) CHF (congestive heart failure) ?I50.9 - Heart failure, unspecified (ICD-10) Chronic kidney disease (CKD) ?N18.9 - Chronic kidney disease, unspecified (ICD-10) Gastroenteritis ?K52.9 - Noninfective gastroenteritis and colitis, unspecified (ICD-10) Diarrhea ?R19.7 - Diarrhea, unspecified (ICD-10) Pneumonia ?J18.9 - Pneumonia, unspecified organism (ICD-10) CHF (congestive heart failure) ?I50.9 - Heart failure, unspecified (ICD-10) Cellulitis of left breast ?N61.0 - Mastitis without abscess (ICD-10) Diabetes ?E11.9 - Type 2 diabetes mellitus without complications (ICD-10) Surgical History (Updated 10/30/23 @ 05:44 by Aletha Blanchard) H/O: hysterectomy ?Z90.710 - Acquired absence of both cervix and uterus (ICD-10) H/O oral surgery ?Z98.890 - Other specified postprocedural states (ICD-10) Family History (Updated 10/30/23 @ 02:48 by Aletha Blanchard) Mother Family history of COPD (chronic obstructive pulmonary disease) Other Family history of cancer Family history of diabetes mellitus Family history of hypertension Social History (Updated 10/30/23 @ 02:49 by Aletha Blanchard) Within the past year, how often did you have a drink containing alcohol: never Score interpretation: A score less than 3 is consistent with normal alcohol consumption. 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 Highest level of school completed/degree received: high school graduate Are you now , , , , never or living with a partner: In a typical week, how many times do you talk on the telephone with family, friends, or neighbors: 3 or more times per week How often do you get together with friends or relatives: 3 or more times per week How often do you attend yarsani or rastafarian services: never Little interest or pleasure in doing things: not at all Feeling down, depressed, or hopeless: not at all Feel stressed/tense/nervous/anxious/difficulty sleeping: not at all Do you think of yourself as: straight/heterosexual Gender Identity: female Exam Constitutional Vital Signs, click to edit/add: Last Vital Signs Temp 98.0 F 02/22/25 20:12 Pulse 85 02/22/25 20:12 Resp 19 02/22/25 20:12 BP 170/80 H 02/22/25 20:12 Pulse Ox 99 02/22/25 21:13 O2 Del Method Room Air 02/22/25 21:13 HENMT Common normals: moist oral mucous membranes Eye Common normals: conjunctivae normal and no scleral icterus Neck & C-Spine Common normals: supple and no meningeal signs Chest Chest: symmetrical chest wall rise Respiratory Common normals: normal respiratory effort Effort & inspection: able to speak in complete sentences and symmetric chest movement Cardio Common normals: regular rate and regular rhythm GI Other: Tenderness to lower abdomen. Ecchymosis with tenderness, firmness noted to right lower abodmen. There is an erythematous, moist rash to the skin folds of her lower abdomen and mons pubis areas. Two wounds/ulcerations noted to the superior portion of the skin fold. The areas are scabbed with a dark center and have a foul odor. Neuro Common normals: oriented x3 and moves all extremities Sensorium/orientation: awake and alert Course Vital Signs Vital signs: Vital Signs Temperature 98.0 F 02/22/25 20:12 Pulse Rate 85 02/22/25 20:12 Respiratory Rate 19 02/22/25 20:12 Blood Pressure 170/80 H 02/22/25 20:12 Pulse Oximetry 99 02/22/25 20:12 Oxygen Delivery Method Room Air 02/22/25 20:12 Temperature 98.0 F 02/22/25 20:12 Pulse Rate 85 02/22/25 20:12 Respiratory Rate 19 02/22/25 20:12 Blood Pressure 170/80 H 02/22/25 20:12 Pulse Oximetry 99 02/22/25 21:13 Oxygen Delivery Method Room Air 02/22/25 21:13 Medical Decision Making MDM Narrative Medical decision making narrative: WBC count was 12.9. BUN was 108, creatinine 12.57; this is a new finding for the patient. Additional laboratory studies were pending. CT scan was pending. Care was resumed to Dr. Landin. See his dictation for further evaluation and treatment. Medical Records Medical records reviewed: Yes I reviewed the patient's medical records Lab Data Lab results reviewed: Yes I reviewed the patient's lab results Labs: Lab Results 02/22/25 02/22/25 Range/Units 21:06 21:25 WBC 12.9 H (4.0-11.0) 10^3/uL RBC 2.70 L (4.20-5.40) 10^6/uL Hgb 7.6 L (12.0-16.0) g/dL Hct 23.5 L* (36.0-48.0) % MCV 87.0 (81.0-99.0) fL MCH 28.1 (26.7-34.0) pg MCHC 32.3 (29.9-35.2) g/dL RDW 14.8 (11.0-15.0) % Plt Count 357 (150-450) 10^3/uL MPV 11.0 (9.5-13.5) fL Neut % (Auto) 76.9 H (43.0-75.0) % Lymph % (Auto) 9.8 L (20.5-60.0) % Hartley % (Auto) 8.1 (1.7-12.0) % Eos % (Auto) 3.3 (0.9-7.0) % Baso % (Auto) 1.0 (0.2-2.0) % Neut # (Auto) 9.9 H (1.4-6.5) 10^3/uL Lymph # (Auto) 1.3 (1.2-3.8) 10^3/uL Hartley # (Auto) 1.1 H (0.3-0.8) 10^3/uL Eos # (Auto) 0.4 (0.0-0.7) 10^3/uL Baso # (Auto) 0.1 (0.0-0.1) 10^3/uL Abs Immat Gran (auto) 0.12 H (0.00-0.03) 10^3/uL Imm/Tot Granulo (auto) 0.9 H (0.0-0.5) % Sodium 137 (136-145) mmol/L Potassium 4.7 (3.5-5.1) mmol/L Chloride 104 (98-107) mmol/L Carbon Dioxide 8.5 L (21.0-32.0) mmol/L Anion Gap 29.2 BUN 108.0 H* (7.0-18.0) mg/dL Creatinine 12.57 H* (0.55-1.02) mg/dL Est GFR ( Amer) 4 L (>=60 mL/min/1.73m^2) Est GFR (Non-Af Amer) 3 L (>=60 mL/min/1.73m^2) BUN/Creatinine Ratio 8.6 Glucose 86 (74-106) mg/dL Calcium 8.1 L (8.5-10.1) mg/dL Total Bilirubin 0.3 (0.2-1.0) mg/dL AST 9 L (15-37) U/L ALT 15 (14-59) U/L Alkaline Phosphatase 82 (46-116) U/L C-Reactive Protein 16.47 H (<=0.50) mg/dL Total Protein 7.6 (6.4-8.2) g/dL Albumin 2.6 L (3.4-5.0) g/dL Globulin 5.0 g/dL Albumin/Globulin Ratio 0.5 POC Glucose 91 (74-106) mg/dL Discharge Plan Discharge Chief Complaint: Skin/Abscess/Foreign Body Clinical Impression: Acute renal failure, Wound cellulitis, Anemia Patient Disposition: [facility] Documented by User: Conor Landin MD 02/22/25 23:18 HPI HPI - General Adult General Chief complaint: Skin/Abscess/Foreign Body Stated complaint: rash Time Seen by Provider: 02/22/25 20:20 Related Data Home Medications ?Medication ?Instructions ?Recorded ?Confirmed atorvastatin 40 mg tablet 40 mg PO DAILY 10/30/23 02/22/25 dapagliflozin propanediol 10 mg 10 mg PO DAILY 10/30/23 02/22/25 tablet (Farxiga) ferrous sulfate 325 mg (65 mg 325 mg PO DAILY 10/30/23 02/22/25 iron) tablet insulin glargine 100 unit/mL (3 50 unit subcut DAILY 10/30/23 02/22/25 mL) subcutaneous pen (Lantus Solostar U-100 Insulin) isosorbide mononitrate 60 mg 60 mg PO DAILY 10/30/23 02/22/25 tablet,extended release 24 hr lidocaine 5 % topical patch 1 patch topical Q24H 10/30/23 02/22/25 lisinopril 20 mg tablet 20 mg PO DAILY 10/30/23 02/22/25 metformin 500 mg tablet,extended 1,000 mg PO DAILY 10/30/23 02/22/25 release 24 hr pantoprazole 40 mg tablet,delayed 40 mg PO DAILY 10/30/23 02/22/25 release potassium chloride 10 mEq 10 meq PO DAILY 10/30/23 02/22/25 capsule,extended release spironolactone 25 mg tablet 25 mg PO DAILY 10/30/23 02/22/25 temazepam 15 mg capsule 15 mg PO .hs PRN sleep 10/30/23 02/22/25 trazodone 100 mg tablet 100 mg PO .hs PRN insomnia 10/30/23 02/22/25 Previous Rx's ?Medication ?Instructions ?Recorded cefdinir 300 mg capsule 600 mg (2 x 300 mg) PO DAILY #20 11/03/23 caps clonidine HCl 0.2 mg tablet 0.2 mg PO Q8H #90 tabs 11/03/23 furosemide 40 mg tablet (Lasix) 80 mg (2 x 40 mg) PO QAM #60 tabs 11/03/23 metoprolol tartrate 25 mg tablet 50 mg (2 x 25 mg) PO BID #120 tabs 11/03/23 vancomycin 125 mg capsule 125 mg PO Q6H 7 days #28 caps 11/03/23 Allergies Allergy/AdvReac Type Severity Reaction Status Date / Time latex Allergy Unknown rash Verified 02/22/25 20:12 Opioid HPI Opioid Management Most Recent Opioid Data: Last Pain Scale 0 11/01/23, 23:21 PFSH PFS Medical History Morbid obesity ?E66.01 - Morbid (severe) obesity due to excess calories (ICD-10) Acute hypoxic respiratory failure ?J96.01 - Acute respiratory failure with hypoxia (ICD-10) TROY (acute kidney injury) ?N17.9 - Acute kidney failure, unspecified (ICD-10) Stage 3b chronic kidney disease (CKD) ?N18.32 - Chronic kidney disease, stage 3b (ICD-10) Type 2 diabetes 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 ?E11.65 - Type 2 diabetes 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 (ICD-10) Acute on chronic heart failure with preserved ejection fraction (HFpEF) ?I50.33 - Acute on chronic diastolic (congestive) heart failure (ICD-10) COPD (chronic obstructive pulmonary disease) ?J44.9 - Chronic obstructive pulmonary disease, unspecified (ICD-10) Diarrhea ?R19.7 - Diarrhea, unspecified (ICD-10) Hyponatremia ?E87.1 - Hypo-osmolality and hyponatremia (ICD-10) COVID-19 ?U07.1 - COVID-19 (ICD-10) Hypokalemia ?E87.6 - Hypokalemia (ICD-10) Pneumonia ?J18.9 - Pneumonia, unspecified organism (ICD-10) Hypertension ?I10 - Essential (primary) hypertension (ICD-10) Chronic heart failure with preserved ejection fraction (HFpEF) ?I50.32 - Chronic diastolic (congestive) heart failure (ICD-10) Hypokalemia ?E87.6 - Hypokalemia (ICD-10) Hypertension ?I10 - Essential (primary) hypertension (ICD-10) Elevated systolic blood pressure reading without diagnosis of hypertension ?R03.0 - Elevated blood-pressure reading, without diagnosis of hypertension (ICD-10) Acute kidney injury superimposed on chronic kidney disease ?N17.9 - Acute kidney failure, unspecified (ICD-10) ?N18.9 - Chronic kidney disease, unspecified (ICD-10) CHF (congestive heart failure) ?I50.9 - Heart failure, unspecified (ICD-10) Chronic kidney disease (CKD) ?N18.9 - Chronic kidney disease, unspecified (ICD-10) Gastroenteritis ?K52.9 - Noninfective gastroenteritis and colitis, unspecified (ICD-10) Diarrhea ?R19.7 - Diarrhea, unspecified (ICD-10) Pneumonia ?J18.9 - Pneumonia, unspecified organism (ICD-10) CHF (congestive heart failure) ?I50.9 - Heart failure, unspecified (ICD-10) Cellulitis of left breast ?N61.0 - Mastitis without abscess (ICD-10) Diabetes ?E11.9 - Type 2 diabetes mellitus without complications (ICD-10) Surgical History (Updated 10/30/23 @ 05:44 by Aletha Blanchard) H/O: hysterectomy ?Z90.710 - Acquired absence of both cervix and uterus (ICD-10) H/O oral surgery ?Z98.890 - Other specified postprocedural states (ICD-10) Family History (Updated 10/30/23 @ 02:48 by Aletha Blanchard) Mother Family history of COPD (chronic obstructive pulmonary disease) Other Family history of cancer Family history of diabetes mellitus Family history of hypertension Social History (Updated 10/30/23 @ 02:49 by Aletha Blanchard) Within the past year, how often did you have a drink containing alcohol: never Score interpretation: A score less than 3 is consistent with normal alcohol consumption. Smoking status: Current every day smoker Do you use any of these nicotine containing products: vaping products Non-prescribed substance use: denies use Previous occupational history: [employer] Highest level of school completed/degree received: high school graduate Are you now , , , , never or living with a partner: In a typical week, how many times do you talk on the telephone with family, friends, or neighbors: 3 or more times per week How often do you get together with friends or relatives: 3 or more times per week How often do you attend yarsani or rastafarian services: never Little interest or pleasure in doing things: not at all Feeling down, depressed, or hopeless: not at all Feel stressed/tense/nervous/anxious/difficulty sleeping: not at all Do you think of yourself as: straight/heterosexual Gender Identity: female Exam Constitutional Vital Signs, click to edit/add: Last Vital Signs Temp 98.0 F 02/22/25 20:12 Pulse 85 02/22/25 20:12 Resp 19 02/22/25 20:12 BP 170/80 H 02/22/25 20:12 Pulse Ox 99 02/22/25 21:13 O2 Del Method Room Air 02/22/25 21:13 Course Vital Signs Vital signs: Vital Signs Temperature 98.0 F 02/22/25 20:12 Pulse Rate 85 02/22/25 20:12 Respiratory Rate 19 02/22/25 20:12 Blood Pressure 170/80 H 02/22/25 20:12 Pulse Oximetry 99 02/22/25 20:12 Oxygen Delivery Method Room Air 02/22/25 20:12 Temperature 98.0 F 02/22/25 20:12 Pulse Rate 85 02/22/25 20:12 Respiratory Rate 19 02/22/25 20:12 Blood Pressure 170/80 H 02/22/25 20:12 Pulse Oximetry 99 02/22/25 21:13 Oxygen Delivery Method Room Air 02/22/25 21:13 Medical Decision Making MDM Narrative Medical decision making narrative: WBC count was 12.9. BUN was 108, creatinine 12.57; this is a new finding for the patient. Additional laboratory studies were pending. CT scan was pending. Care was resumed to Dr. Landin. See his dictation for further evaluation and treatment.. care transferred at change of shift. CT returned without acute findings. Did note enlarged 1cm retroperitoneal node, nonspecific bilateral adrenal gland enlargement and small to mod. left pleural effusion. Discussed case with Hospitalist at [facility] and patient accepted in transfer Lab Data Labs: Lab Results 02/22/25 02/22/25 Range/Units 21:06 21:25 WBC 12.9 H (4.0-11.0) 10^3/uL RBC 2.70 L (4.20-5.40) 10^6/uL Hgb 7.6 L (12.0-16.0) g/dL Hct 23.5 L* (36.0-48.0) % MCV 87.0 (81.0-99.0) fL MCH 28.1 (26.7-34.0) pg MCHC 32.3 (29.9-35.2) g/dL RDW 14.8 (11.0-15.0) % Plt Count 357 (150-450) 10^3/uL MPV 11.0 (9.5-13.5) fL Neut % (Auto) 76.9 H (43.0-75.0) % Lymph % (Auto) 9.8 L (20.5-60.0) % Hartley % (Auto) 8.1 (1.7-12.0) % Eos % (Auto) 3.3 (0.9-7.0) % Baso % (Auto) 1.0 (0.2-2.0) % Neut # (Auto) 9.9 H (1.4-6.5) 10^3/uL Lymph # (Auto) 1.3 (1.2-3.8) 10^3/uL Hartley # (Auto) 1.1 H (0.3-0.8) 10^3/uL Eos # (Auto) 0.4 (0.0-0.7) 10^3/uL Baso # (Auto) 0.1 (0.0-0.1) 10^3/uL Abs Immat Gran (auto) 0.12 H (0.00-0.03) 10^3/uL Imm/Tot Granulo (auto) 0.9 H (0.0-0.5) % Sodium 137 (136-145) mmol/L Potassium 4.7 (3.5-5.1) mmol/L Chloride 104 (98-107) mmol/L Carbon Dioxide 8.5 L (21.0-32.0) mmol/L Anion Gap 29.2 BUN 108.0 H* (7.0-18.0) mg/dL Creatinine 12.57 H* (0.55-1.02) mg/dL Est GFR ( Amer) 4 L (>=60 mL/min/1.73m^2) Est GFR (Non-Af Amer) 3 L (>=60 mL/min/1.73m^2) BUN/Creatinine Ratio 8.6 Glucose 86 (74-106) mg/dL Calcium 8.1 L (8.5-10.1) mg/dL Total Bilirubin 0.3 (0.2-1.0) mg/dL AST 9 L (15-37) U/L ALT 15 (14-59) U/L Alkaline Phosphatase 82 (46-116) U/L C-Reactive Protein 16.47 H (<=0.50) mg/dL Total Protein 7.6 (6.4-8.2) g/dL Albumin 2.6 L (3.4-5.0) g/dL Globulin 5.0 g/dL Albumin/Globulin Ratio 0.5 POC Glucose 91 (74-106) mg/dL Discharge Plan Discharge Chief Complaint: Skin/Abscess/Foreign Body Clinical Impression: Acute renal failure, Wound cellulitis, Anemia Patient Disposition: [facility]
[2025-02-22 21:08] LABS: Glucometer 91 mg/dL (74-106)
[2025-02-22 21:13] VITALS: O2SAT 99
[2025-02-22] MEDS: CEFAZOLIN SODIUM/DEXTROSE,ISO 1 GM/50 ML PREMIX IV (21:32)
[2025-02-22 21:33] LABS: Basophils Absolute Auto 0.1 10^3/uL (0.0-0.1); Eosinophils Absolute Auto 0.4 10^3/uL (0.0-0.7); Eosinophils Percent Auto 3.3 % (0.9-7.0); Hemoglobin 7.6 g/dL (12.0-16.0); Immature Granulocytes Abs Auto 0.12 10^3/uL (0.00-0.03); Immature Granulocytes Pct Auto 0.9 % (0.0-0.5); Lymphocytes Absolute Auto 1.3 10^3/uL (1.2-3.8); Lymphocytes Percent Auto 9.8 % (20.5-60.0); Mean Corpuscular HGB Conc 32.3 g/dL (29.9-35.2); Mean Corpuscular Hemoglobin 28.1 pg (26.7-34.0); Monocytes Absolute Auto 1.1 10^3/uL (0.3-0.8); Monocytes Percent Auto 8.1 % (1.7-12.0); Neutrophils Absolute Auto 9.9 10^3/uL (1.4-6.5); Neutrophils Percent Auto 76.9 % (43.0-75.0); Platelet Count 357 10^3/uL (150-450); Red Cell Distribution Width 14.8 % (11.0-15.0); White Blood Count 12.9 10^3/uL (4.0-11.0)
[2025-02-22 21:48] LABS: Alanine Aminotransferase 15 U/L (14-59); Albumin Globulin Ratio 0.5; Albumin Level 2.6 g/dL (3.4-5.0); Alkaline Phosphatase 82 U/L (46-116); Anion Gap 29.2; Aspartate Amino Transferase 9 U/L (15-37); BUN Creatinine Ratio 8.6; Bilirubin Total 0.3 mg/dL (0.2-1.0); C Reactive Protein 16.47 mg/dL (<=0.50); Calcium 8.1 mg/dL (8.5-10.1); Carbon Dioxide 8.5 mmol/L (21.0-32.0); Chloride 104 mmol/L (98-107); Estimated GFR (African America 4 (>=60 mL/min/1.73m^2); Estimated GFR (Non-African Ame 3 (>=60 mL/min/1.73m^2); Glucose 86 mg/dL (74-106); Potassium 4.7 mmol/L (3.5-5.1); Sodium 137 mmol/L (136-145); Total Protein 7.6 g/dL (6.4-8.2)
[2025-02-22 21:52] LABS: Hematocrit 23.5 % (36.0-48.0)
[2025-02-23 00:13] VITALS: BP 162/72; PULSE 89; O2SAT 100
== END 2025-02-23 00:22 | disposition short-term general hospital (02) ==
PROVIDERS: Nurse Practitioner Family; Emergency Provider Internal Medicine; PCP Nurse Practitioner Family
DX: L03.311 Cellulitis of abdominal wall (principal); N17.9 Acute kidney failure, unspecified; E11.9 Type 2 diabetes mellitus without complications; Z90.710 Acquired absence of both cervix and uterus; F17.290 Nicotine dependence, other tobacco product, uncomplicated; D64.9 Anemia, unspecified; Z91.128 Patient's intentional underdosing of medication regimen for other reason
CPT/HCPCS: 36415; 74176; 80053; 85025; 86140; 96365; 99285; J0690

== ENCOUNTER 2025-03-16 07:36 | Outpatient (RCR) | payer MEDICAID, SELFPAY ==
[2025-03-11 13:17] VITALS: PULSE 76; TEMP 36.7; O2SAT 95
[2025-03-13 17:02] VITALS: BP 166/72; PULSE 90; TEMP 37.1; O2SAT 93
--- NOTE | 2025-03-13 17:21 | PC.NURSE ---
Patient arrived on med surg unit. Vitals were taken. Old dressing was removed and pictures were obtained. Patient was in a moderate amount of pain.. she states she was unable to take a pain pill before due to dialysis. Patient's abdomen and groin area was washed with soap and water. Wounds were irrgated with NS. Wet to dry dressing was applied. Patient then wheeled down to car.
== END 2025-03-25 23:59 | disposition home or self-care (01) ==
LOC: INF 07:36
PROVIDERS: PCP Nurse Practitioner Family; Visit Provider Surgery
DX: S31.109A Unspecified open wound of abdominal wall, unspecified quadrant without penetration into peritoneal cavity, initial encounter (principal)

== ENCOUNTER 2025-08-11 13:08 | Outpatient (REF) | payer MEDICAID, SELFPAY ==
--- OUTSIDE RECORDS SUMMARY | 2025-08-11 13:12 | XMS_ITS | Encounter Summary ---
Author Organization [facility] Address [address] [facility] [place] [address] Care Team Providers Care Garment Alteration Examiner Name Role Phone Unavailable Primary Care Provider Unavailabl e Encounter Details Date Type Department Care Team (Late Contact Info) Description 06/20/2025 Abstract [facility] Hanbenitoe [address] [place] [id number] Unallocated, [facility] MD Rosanna [address] [place] [address] Social History Tobacco Use Types Packs/Day Years Used Date Smoking Tobacco: Former Cigarettes Smokeless Tobacco: Current Alcohol Use Standard Drinks/Week Comments Yes 0 (1 standard drink = 0.6 oz pur e alcohol) PHQ-2 Answer Date Recorded Patient Health Questionnaire-2 Score 4 04/17/2025 Comments Unknown Sex and Gender Information Value Date Recorded Sex Assigned at Not on file Legal Sex Female 6:53 PM EDT Gender Identity Not on file Sexual Orientation Not on file documented as of this encounter Plan of Treatment Upcoming Encounters Date Type Department Care Team (Late st Contact Info) Description 10/12/2025 11:30 AM EST Office Visit [facility] Saucedo [facility] [address] [place] [address] Ayaan Deras MD [address] [place], [place] [id number] documented as of this encounter Visit Diagnoses Not on filedocumented in this encounter Additional Health Concerns Assessment Noted Time PHQ-9 Depression Total Score: 8 04/17/20 25 10:29 AM EDT documented as of this encounter
--- OUTSIDE RECORDS SUMMARY | 2025-08-11 13:12 | XMS_ITS | Encounter Summary ---
Author Organization [facility] Address [address] [facility] [place] [address] Care Team Providers Care Winery Worker Name Role Phone Unavailable Primary Care Provider Unavailabl e Encounter Details Date Type Department Care Team (Late Contact Info) Description 06/12/2025 Abstract [facility] [place] Hanbenitoe [address] [place] [phone] Unallocated, Noms MD Rosanna [address] [place] [address] Social History Tobacco Use Types Packs/Day Years [...] Saucedo Med[facility] [address] [place] [address] Ayaan Deras MD [address] [place], [place] [id number] documented as of this encounter Visit Diagnoses Not on filedocumented in this encounter Additional Health Concerns Assessment Noted Time PHQ-9 Depression Total Score: 8 04/17/20 25 10:29 AM EDT documented as of this encounter
--- OUTSIDE RECORDS SUMMARY | 2025-08-11 13:12 | XMS_ITS | Encounter Summary ---
Author Organization [facility] Address [address] [facility] [place] [address] Care Team Providers Care Metal Drilling Machine Operator Name Role Phone Unavailable Primary Care Provider Unavailabl e Encounter Details Date Type Department Care Team (Late Contact Info) Description 06/15/2025 Abstract [facility] Hannce [address] [place] [phone] Unallocated, Noms MD Rosanna [address] [place] [address] Social History Tobacco Use Types Packs/Day Years [...] Saucedo Medince [address] [place] [address] Ayaan Deras MD [address] [place], [place] [id number] documented as of this encounter Visit Diagnoses Not on filedocumented in this encounter Additional Health Concerns Assessment Noted Time PHQ-9 Depression Total Score: 8 04/17/20 25 10:29 AM EDT documented as of this encounter
--- OUTSIDE RECORDS SUMMARY | 2025-08-11 13:12 | XMS_ITS | Encounter Summary ---
Author Organization [facility] Address [address] [facility] [place] [address] Care Team Providers Care Commissioner Of Internal Revenue Name Role Phone Unavailable Primary Care Provider Unavailabl e Encounter Details Date Type Department Care Team (Late Contact Info) Description 06/19/2025 Abstract [facility] Matt Saucedo Golde [address] [place] [phone] Unallocated, Noms MD Rosanna [address] [place] [address] Social History Tobacco Use Types Packs/Day Years [...] Saucedo Medince [address] [place] [address] [place] [address] Ayaan Deras MD [address] [place] [address] [place], [place] [phone] documented as of this encounter Visit Diagnoses Not on filedocumented in this encounter Additional Health Concerns Assessment Noted Time PHQ-9 Depression Total Score: 8 04/17/20 25 10:29 AM EDT documented as of this encounter
--- OUTSIDE RECORDS SUMMARY | 2025-08-11 13:12 | XMS_ITS | Encounter Summary ---
Author Organization [facility] Address [address] [facility] [place] [address] Care Team Providers Care Bleacher Operator Name Role Phone Unavailable Primary Care Provider Unavailabl e Encounter Details Date Type Department Care Team (Late Contact Info) Description 06/16/2025 Abstract [facility] Matt Hanbenitoe [address] [place] [phone] Unallocated, Noms MD Rosanna [address] [place] [address] Social History Tobacco Use Types Packs/Day Years [...] Saucedo Medince [address] [place] [address] [place] [address] Ayaan Deras MD [address] [place] [address] [place], [place] [address] documented as of this encounter Visit Diagnoses Not on filedocumented in this encounter Additional Health Concerns Assessment Noted Time PHQ-9 Depression Total Score: 8 04/17/20 25 10:29 AM EDT documented as of this encounter
--- OUTSIDE RECORDS SUMMARY | 2025-08-11 13:12 | XMS_ITS | Encounter Summary ---
Author Organization [facility] Address [address] [facility] [place] [address] Care Team Providers Care Pharmacy Clinical Coordinator Name Role Phone Unavailable Primary Care Provider Unavailabl e Encounter Details Date Type Department Care Team (Late Contact Info) Description 06/15/2025 Abstract [facility] [address] [place] [phone] Unallocated, Noms MD Rosanna [address] [place] [address] Social History Tobacco Use Types Packs/Day Years [...] Encounters Date Type Department Care Team (Late Contact Info) Description 10/12/2025 11:30 AM EST Office Visit [facility] Med[facility] [address] [place] [address] Ayaan Deras MD [address] [place] 110 [place] [address] documented as of this encounter Visit Diagnoses Not on filedocumented in this encounter Additional Health Concerns Assessment Noted Time PHQ-9 Depression Total Score: 8 04/17/20 25 10:29 AM EDT documented as of this encounter
--- OUTSIDE RECORDS SUMMARY | 2025-08-11 13:13 | XMS_ITS | Encounter Summary ---
Author Organization [facility] Address [address] [facility] [place] [address] Care Team Providers Care Fiber Optic Assembler Name Role Phone Unavailable Primary Care Provider Unavailabl e Encounter Details Date Type Department Care Team (Late Contact Info) Description 07/03/2025 Abstract [facility] [address] [place] [phone] Unallocated, Noms MD Rosanna [address] [place] [address] Social History Tobacco Use Types Packs/Day Years [...] Family Medince [address] [place] [address] Ayaan Deras MD [address] [place] 110 [place] [address] documented as of this encounter Visit Diagnoses Not on filedocumented in this encounter Additional Health Concerns Assessment Noted Time PHQ-9 Depression Total Score: 8 04/17/20 25 10:29 AM EDT documented as of this encounter
--- OUTSIDE RECORDS SUMMARY | 2025-08-11 13:13 | XMS_ITS | Encounter Summary ---
Author Organization [facility] Address [address] [facility] [place] [address] Care Team Providers Care Elementary School Teacher'S Aide Name Role Phone Unavailable Primary Care Provider Unavailabl e Encounter Details Date Type Department Care Team (Late Contact Info) Description 06/29/2025 Abstract [facility] [address] [place] [phone] Unallocated, Noms MD Rosanna [address] [place] [address] Social History Tobacco Use Types Packs/Day Years [...] Family Medince [address] [place] [address] Ayaan Deras MD [address] [place] [place] [address] documented as of this encounter Visit Diagnoses Not on filedocumented in this encounter Additional Health Concerns Assessment Noted Time PHQ-9 Depression Total Score: 8 04/17/20 25 10:29 AM EDT documented as of this encounter
--- OUTSIDE RECORDS SUMMARY | 2025-08-11 13:13 | XMS_ITS | Encounter Summary ---
Author Organization [facility] Address [address] [facility] [place] [address] Care Team Providers Care Continuous Yarn Dyeing Machine Operator Name Role Phone Unavailable Primary Care Provider Unavailabl e Encounter Details Date Type Department Care Team (Late Contact Info) Description 06/28/2025 Abstract [facility] [address] [place] [phone] Unallocated, Noms MD Rosanna [address]30 [place] [address] Social History Tobacco Use Types Packs/Day Years [...] Family Medince [address] [place] [address] Ayaan Deras MD [address] [place] [place] [address] documented as of this encounter Visit Diagnoses Not on filedocumented in this encounter Additional Health Concerns Assessment Noted Time PHQ-9 Depression Total Score: 8 04/17/20 25 10:29 AM EDT documented as of this encounter
--- OUTSIDE RECORDS SUMMARY | 2025-08-11 13:13 | XMS_ITS | Encounter Summary ---
Author Organization [facility] Address [address] [facility] [place] [address] Care Team Providers Care Music Library Assistant Name Role Phone Unavailable Primary Care Provider Unavailabl e Encounter Details Date Type Department Care Team (Late Contact Info) Description 06/27/2025 Abstract [facility] Matt Hanbenitoe [address] [place] [phone] Unallocated, Noms MD Rosanna [address] [place] [address] Social History Tobacco Use Types Packs/Day Years [...] Saucedo Medince [address] [place] [address] [place] [address] Ayaan Deras MD [address] [place] [address] [place], [place] [address] documented as of this encounter Visit Diagnoses Not on filedocumented in this encounter Additional Health Concerns Assessment Noted Time PHQ-9 Depression Total Score: 8 04/17/20 25 10:29 AM EDT documented as of this encounter
--- OUTSIDE RECORDS SUMMARY | 2025-08-11 13:13 | XMS_ITS | Encounter Summary ---
Author Organization [facility] Address [address] [place] [address] Care Team Providers Care Palm Gatherer Name Role Phone Unavailable Primary Care Provider Unavailabl e Encounter Details Date Type Department Care Team (Late Contact Info) Description 07/13/2025 Abstract [facility] [address] [place] [phone] Unallocated, Noms Provider, [address] [place] [phone] Social History Tobacco Use Types Packs/Day Years Used Date Smoking Tobacco: Former Cigarettes Smokeless Tobacco: Current Alcohol Use Standard Drinks/Week Comments Yes 0 (1 standard drink = 0.6 oz pur e alcohol) PHQ-2 Answer Date Recorded Patient Health Questionnaire-2 Score 0 07/13/2025 Comments Unknown Sex and Gender Information Value Date Recorded Sex Assigned at Not on file Legal Sex Female 6:53 PM EDT Gender Identity Not on file Sexual Orientation Not on file documented as of this encounter Functional Status * Over the past 2 weeks, how often have you been bothered by any of the following problems? Question Answer Date of Assessment Author Little interest or pleasure in doing things Not at all 07/13/2025 11:31 AM EDT Ayse Jon L PN Feeling down, depressed, or hopeless Not at all 07/13/2025 11:31 AM EDT Ayse Jon L PN Patient Health Questionnaire -2 Score 0 07/13/2025 11:31 AM EDT Ayse Jon L PN documented as of this encounter Plan of Treatment Upcoming Encounters Date Type Department Care Team (Late Contact Info) Description 10/12/2025 11:30 AM EST Office Visit [facility] [place] Barraza [address] [facility] 110 [place] [address] Ayaan Deras MD 112 [facility] 110 [place] [address] documented as of this encounter Visit Diagnoses Not on filedocumented in this encounter Additional Health Concerns Assessment Noted Time PHQ-9 Depression Total Score: 8 04/17/20 25 10:29 AM EDT documented as of this encounter
--- OUTSIDE RECORDS SUMMARY | 2025-08-11 13:13 | XMS_ITS | Encounter Summary ---
Author Organization [facility] Address [address] [facility] [place] [address] Care Team Providers Care Clinical Lab Assistant Name Role Phone Unavailable Primary Care Provider Unavailabl e Encounter Details Date Type Department Care Team (Late Contact Info) Description 06/27/2025 Abstract [facility] [address] [place] [phone] Unallocated, Noms MD Rosanna [address] [place] [address] Social History Tobacco Use Types Packs/Day Years [...] Family Medince [address] [place] [address] Ayaan Deras MD [address] [place] [address] documented as of this encounter Visit Diagnoses Not on filedocumented in this encounter Additional Health Concerns Assessment Noted Time PHQ-9 Depression Total Score: 8 04/17/20 25 10:29 AM EDT documented as of this encounter
--- OUTSIDE RECORDS SUMMARY | 2025-08-11 13:13 | XMS_ITS | Encounter Summary ---
Author Organization [facility] Address [address] [place] [address] Care Team Providers Care Police Sergeant Precinct Name Role Phone Unavailable Primary Care Provider Unavailabl e Encounter Details Date Type Department Care Team (Late Contact Info) Description 07/12/2025 Abstract [facility] [address] [place] [phone] Unallocated, Noms Provider, [address] [place] [phone] Social History Tobacco Use Types Packs/Day Years [...] Office Visit [facility] [place] Barraza [address] [facility] 110 [place] [address] Ayaan Deras MD 112 [facility] 110 [place] [address] documented as of this encounter Visit Diagnoses Not on filedocumented in this encounter Additional Health Concerns Assessment Noted Time PHQ-9 Depression Total Score: 8 04/17/20 25 10:29 AM EDT documented as of this encounter
--- OUTSIDE RECORDS SUMMARY | 2025-08-11 13:13 | XMS_ITS | Encounter Summary ---
Author Organization [facility] Address [address] [facility] [place] [address] Care Team Providers Care Apparatus Engineering Technologist Name Role Phone Unavailable Primary Care Provider Unavailabl e Encounter Details Date Type Department Care Team (Late st Contact Info) Description 06/21/2025 Abstract [facility] Matt Hannce [address] [facility] 110 [place] [phone] Ayaan Deras MD [address] [facility] 110 [place] [address] Social History Tobacco Use Types Packs/Day Years [...] 11:30 AM EST Office Visit [facility] Matt Hannce [address] [facility] 110 [place] [phone] Ayaan Deras MD [address] [facility] 110 [place] [address] documented as of this encounter Visit Diagnoses Not on filedocumented in this encounter Additional Health Concerns Assessment Noted Time PHQ-9 Depression Total Score: 8 04/17/20 25 10:29 AM EDT documented as of this encounter
--- OUTSIDE RECORDS SUMMARY | 2025-08-11 13:13 | XMS_ITS | Encounter Summary ---
Author Organization [facility] Address [address] [facility] [place] [address] Care Team Providers Care Stockroom Supervisor Name Role Phone Unavailable Primary Care Provider Unavailabl e Encounter Details Date Type Department Care Team (Late Contact Info) Description 06/30/2025 Abstract [facility] [address] [place] [phone] Unallocated, Noms MD Rosanna [address] [place] [address] Social History Tobacco Use Types Packs/Day Years [...] Family Medince [address] [place] [address] Ayaan Deras MD [address] [place] [place] [address] documented as of this encounter Visit Diagnoses Not on filedocumented in this encounter Additional Health Concerns Assessment Noted Time PHQ-9 Depression Total Score: 8 04/17/20 25 10:29 AM EDT documented as of this encounter
--- OUTSIDE RECORDS SUMMARY | 2025-08-11 13:13 | XMS_ITS | Encounter Summary ---
Author Organization [facility] Address [address] [facility] [place] [address] Care Team Providers Care Athletics Teacher Name Role Phone Unavailable Primary Care Provider Unavailabl e Encounter Details Date Type Department Care Team (Late Contact Info) Description 06/19/2025 Abstract [facility] Matt Saucedo Golde [address] [place] [phone] Unallocated, Noms MD Rosanna [address] [place] [address] Social History Tobacco Use Types Packs/Day Years [...] Saucedo Medince [address] [place] [address] [place] [address] Ayaan Deras MD [address] [place] [place], [place] [address] documented as of this encounter Visit Diagnoses Not on filedocumented in this encounter Additional Health Concerns Assessment Noted Time PHQ-9 Depression Total Score: 8 04/17/20 25 10:29 AM EDT documented as of this encounter
--- OUTSIDE RECORDS SUMMARY | 2025-08-11 13:13 | XMS_ITS | Encounter Summary ---
Author Organization [facility] Address [address] [facility] [place] [address] Care Team Providers Care Dust Collector Ore Crushing Name Role Phone Unavailable Primary Care Provider Unavailabl e Encounter Details Date Type Department Care Team (Late Contact Info) Description 07/18/2025 Abstract [facility] [address] [place] [phone] Unallocated, Noms MD Rosanna [address]30 [place] [address] Social History Tobacco Use Types Packs/Day Years [...] Family Medince [address] [place] [address] Ayaan Deras MD [address] [place] [address] documented as of this encounter Visit Diagnoses Not on filedocumented in this encounter Additional Health Concerns Assessment Noted Time PHQ-9 Depression Total Score: 8 04/17/20 25 10:29 AM EDT documented as of this encounter
--- OUTSIDE RECORDS SUMMARY | 2025-08-11 13:14 | XMS_ITS | Encounter Summary ---
Author Organization [facility] Address [address] [facility] [place] [address] Care Team Providers Care Roller Setter Name Role Phone Unavailable Primary Care Provider Unavailabl e Encounter Details Date Type Department Care Team (Late Contact Info) Description 07/24/2025 Abstract [facility] [address] [place] [phone] Unallocated, Noms MD Rosanna [address]30 [place] [address] Social History Tobacco Use Types Packs/Day Years [...] Family Medince [address] [place] [address] Ayaan Deras MD [address] [place] 110 [place] [address] documented as of this encounter Visit Diagnoses Not on filedocumented in this encounter Additional Health Concerns Assessment Noted Time PHQ-9 Depression Total Score: 8 04/17/20 25 10:29 AM EDT documented as of this encounter
--- OUTSIDE RECORDS SUMMARY | 2025-08-11 13:14 | XMS_ITS | Encounter Summary ---
Author Organization [facility] Address [address] [facility] [place] [address] Care Team Providers Care Weight Analyst Name Role Phone Unavailable Primary Care Provider Unavailabl e Encounter Details Date Type Department Care Team (Late Contact Info) Description 07/18/2025 Abstract [facility] DEPARTMENT [address] [place] [phone] Unallocated, Noms MD Rosanna [address]30 [place] [address] Social History Tobacco Use Types Packs/Day Years [...] Family Medince [address] [place] [address] [place] [address] Ayaan Deras MD [address] [place] [place] [address] documented as of this encounter Visit Diagnoses Not on filedocumented in this encounter Additional Health Concerns Assessment Noted Time PHQ-9 Depression Total Score: 8 04/17/20 25 10:29 AM EDT documented as of this encounter
--- OUTSIDE RECORDS SUMMARY | 2025-08-11 13:14 | XMS_ITS | Encounter Summary ---
Author Organization [facility] Address [address] [facility] [place] [address] Care Team Providers Care Pressure Tester Operator Name Role Phone Unavailable Primary Care Provider Unavailabl e Encounter Details Date Type Department Care Team (Late Contact Info) Description 08/01/2025 Abstract [facility] [address] [place] [phone] Unallocated, Noms MD Rosanna [address] [place] [address] Social History Tobacco Use Types Packs/Day Years [...] Family Medince [address] [place] [address] Ayaan Deras MD [address] [place] 110 [place] [address] documented as of this encounter Visit Diagnoses Not on filedocumented in this encounter Additional Health Concerns Assessment Noted Time PHQ-9 Depression Total Score: 8 04/17/20 25 10:29 AM EDT documented as of this encounter
--- OUTSIDE RECORDS SUMMARY | 2025-08-11 13:14 | XMS_ITS | Encounter Summary ---
Author Organization [facility] Address [address] [facility] [place] [address] Care Team Providers Care Dev Manager Name Role Phone Unavailable Primary Care Provider Unavailabl e Encounter Details Date Type Department Care Team (Late Contact Info) Description 07/20/2025 Abstract [facility] [address] [place] [phone] Unallocated, Noms MD Rosanna [address]30 [place] [address] Social History Tobacco Use Types Packs/Day Years [...] Family Medince [address] [place] [place] [address] Ayaan Deras MD [address] 110 [place] [address] documented as of this encounter Visit Diagnoses Not on filedocumented in this encounter Additional Health Concerns Assessment Noted Time PHQ-9 Depression Total Score: 8 04/17/20 10:29 AM EDT documented as of this encounter
--- OUTSIDE RECORDS SUMMARY | 2025-08-11 13:14 | XMS_ITS | Encounter Summary ---
Author Organization [facility] Address [address] [facility] [place] [address] Care Team Providers Care Production Broaching Machine Operator Name Role Phone Unavailable Primary Care Provider Unavailabl e Encounter Details Date Type Department Care Team (Late Contact Info) Description 07/26/2025 Abstract [facility] [address] [place] [phone] Unallocated, Noms MD Rosanna [address] [place] [address] Social History Tobacco Use Types Packs/Day Years [...] Family Medince [address] [place] [address] Ayaan Deras MD [address] [place] [address] documented as of this encounter Visit Diagnoses Not on filedocumented in this encounter Additional Health Concerns Assessment Noted Time PHQ-9 Depression Total Score: 8 04/17/20 25 10:29 AM EDT documented as of this encounter
--- OUTSIDE RECORDS SUMMARY | 2025-08-11 13:14 | XMS_ITS | Encounter Summary ---
Author Organization [facility] Address [address] [facility] [place] [address] Care Team Providers Care Senior Painter Name Role Phone Ayaan Deras MD Unavailable [phone] Encounter Details Date Type Department Care Team (Late Contact Info) Description 05/19/2023 Abstract [facility] Matt Malcolm [address] [facility] 110 [place] [address] Ayaan Deras MD [address] [facility] 110 [place] [address] Social History Tobacco Use Types Packs/Day Years Used Date Smoking Tobacco: Every Day Cigarettes Smokeless Tobacco: Current Alcohol Use Standard Drinks/Week Comments Yes 0 (1 standard drink = 0.6 oz pur e alcohol) Comments Unknown Sex and Gender Information Value Date Recorded Sex Assigned at Not on file Legal Sex Female 6:53 PM EDT Gender Identity Not on file Sexual Orientation Not on file documented as of this encounter Plan of Treatment Upcoming Encounters Date Type Department Care Team (Late Contact Info) Description 10/12/2025 11:30 AM EST Office Visit [facility] Matt Hanncceline [address] [place] [place] [address] Ayaan Deras MD [address] [place] [address] [place] [address] documented as of this encounter Visit Diagnoses Not on filedocumented in this encounter Care Teams Senior Painter Relationship Specialty Start Date End Date Ayaan Deras MD [address] [place] [place] [address] PCP - [employer] 09/25/23 documented as of this encounter
--- OUTSIDE RECORDS SUMMARY | 2025-08-11 13:14 | XMS_ITS | Encounter Summary ---
Author Organization [facility] Address [address] [facility] [place] [address] Care Team Providers Care Community Health Educator Name Role Phone Ayaan Deras MD Unavailable [phone] Encounter Details Date Type Department Care Team (Late st Contact Info) Description 03/30/2023 Orders Only [facility] Matt Saucedo [facility] [address] [facility] 110 [place] [address] Ayaan Deras MD [address] [facility] 110 [place] [address] Social History Tobacco Use Types Packs/Day Years [...] on file Sexual Orientation Not on file COVID-19 Exposure Response Date Recorded In the last 10 days, have yo u been in contact with someone who was confirmed or suspected to have Coronavirus/COVID-19? No / Unsure 03/09/2023 1:33 PM EDT documented as of this encounter Plan of Treatment Upcoming Encounters Date Type Department Care Team (Late st Contact Info) Description 10/12/2025 11:30 AM EST Office Visit [facility] Matt Hannc [address] [facility] 110 [place] [address] Ayaan Deras MD [address] [facility] 110 [place] [address] documented as of this encounter Procedures Procedure Name Priority Date/Time Associated Diagnosis Comments COLONOSCOPY DIAGNOSTIC Routine 03/19/2023 2:30 PM EDT documented in this encounter Results * COLONOSCOPY DIAGNOSTIC (03/19/2023 2:30 PM EDT) Anatomical Region Laterality Modality Radiographic Sho ging Ayaan Deras MD IMG XR PROCEDURES Final Result documented in this encounter Visit Diagnoses Not on filedocumented in this encounter Care Teams Community Health Educator Relationship Specialty Start Date End Date Ayaan Deras MD 112 [place] [address] PCP - Stephania Commercial 09/25/23 documented as of this encounter
--- OUTSIDE RECORDS SUMMARY | 2025-08-11 13:14 | XMS_ITS | Encounter Summary ---
Author Organization [facility] Address [address] [facility] [place] [address] Care Team Providers Care Food Crops Farm Hand Name Role Phone Ayaan Deras MD Unavailable [phone] Encounter Details Date Type Department Care Team (Late Contact Info) Description 02/27/2023 Abstract [facility] [place] Saucedo Gold [address] [facility] 110 [place] [phone] Ayaan Deras MD [address] [facility] 110 [place] [address] Social History Tobacco Use Types Packs/Day Years Used Date Smoking Tobacco: Every Day Cigarettes Smokeless Tobacco: Current Tobacco Cessation:Ready to Q uit: Not Asked; Counseling Given: Not Answered Alcohol Use Standard Drinks/Week Comments Yes 0 [...] 11:30 AM EST Office Visit [facility] [place] Handee [address] [facility] 110 [place] [address] Ayaan Deras MD [address] [facility] 110 [place] [address] documented as of this encounter Visit Diagnoses Not on filedocumented in this encounter Care Teams Food Crops Farm Hand Relationship Specialty Start Date End Date Ayaan Deras MD 112 [facility] 110 [place] [address] PCP - [place] [employer] 09/25/23 documented as of this encounter
--- OUTSIDE RECORDS SUMMARY | 2025-08-11 13:14 | XMS_ITS | Encounter Summary ---
Author Organization [facility] Address [address] [place] [address] Care Team Providers Care Rubber Roller Grinder Operator Name Role Phone Unavailable Primary Care Provider Unavailabl e Encounter Details Date Type Department Care Team (Late Contact Info) Description 07/27/2025 [facility] [address] [place] [phone] Unallocated, Noms MD Rosanna [address] [place] [address] Social History Tobacco Use Types Packs/Day Years [...] Family Medince [address] [place] [address] [place] [address] Ayaan Deras MD [address] [place] 110 [place] [address] documented as of this encounter Visit Diagnoses Not on filedocumented in this encounter Additional Health Concerns Assessment Noted Time PHQ-9 Depression Total Score: 8 04/17/20 25 10:29 AM EDT documented as of this encounter
--- OUTSIDE RECORDS SUMMARY | 2025-08-11 13:14 | XMS_ITS | Encounter Summary ---
Author Organization [facility] Address [address] [facility] [place] [address] Care Team Providers Care Staffing Consultant Name Role Phone Unavailable Primary Care Provider Unavailabl e Encounter Details Date Type Department Care Team (Late Contact Info) Description 07/18/2025 Abstract [facility] [address] [place] [phone] Unallocated, Noms MD Rosanna [address]30 [place] [address] Social History Tobacco Use Types Packs/Day Years [...] Family Medince [address] [place] [address] [place] [address] Ayaan Deras MD [address] [place] 110 [place] [address] documented as of this encounter Visit Diagnoses Not on filedocumented in this encounter Additional Health Concerns Assessment Noted Time PHQ-9 Depression Total Score: 8 04/17/20 25 10:29 AM EDT documented as of this encounter
--- OUTSIDE RECORDS SUMMARY | 2025-08-11 13:14 | XMS_ITS | Encounter Summary ---
Author Organization [facility] Address [address] [facility] [place] [address] Care Team Providers Care Cutter Hot Knife Name Role Phone Unavailable Primary Care Provider Unavailabl e Encounter Details Date Type Department Care Team (Late Contact Info) Description 08/01/2025 Abstract [facility] [address] [place] [phone] Unallocated, Noms MD Rosanna [address] [place] [address] Social History Tobacco Use Types Packs/Day Years [...] Family Medince [address] [place] [address] [place] [address] Ayaan Deras MD [address] [place] 110 [place] [address] documented as of this encounter Visit Diagnoses Not on filedocumented in this encounter Additional Health Concerns Assessment Noted Time PHQ-9 Depression Total Score: 8 04/17/20 25 10:29 AM EDT documented as of this encounter
--- OUTSIDE RECORDS SUMMARY | 2025-08-11 13:15 | XMS_ITS | Encounter Summary ---
Author Organization [facility] Address [address] [place] [address] Care Team Providers Care Advertising Representative Name Role Phone Unavailable Primary Care Provider Unavailabl e Encounter Details Date Type Department Care Team (Late Contact Info) Description 02/28/2025 Orders Only [facility] 703 [facility] 150 [place] [phone] Isai Rodrigues DO 703 [facility] 150 [place] [address] Social History Tobacco Use Types Packs/Day Years [...] 11:30 AM EST Office Visit [facility] [place] Saucedo Medince 112 [facility] 110 [place] [address] Ayaan Deras MD 112 [facility] 110 [place] [address] documented as of this encounter Procedures Procedure Name Priority Date/Time Associated Diagnosis Comments GENERAL PATHOLOGY Routine 02/24/2025 4:28 PM EDT documented in this encounter Results * GENERAL PATHOLOGY (02/24/2025 4:28 PM EDT) us Isai Rodrigues DO [facility] Final Result documented in this encounter Visit Diagnoses Not on filedocumented in this encounter
--- OUTSIDE RECORDS SUMMARY | 2025-08-11 13:15 | XMS_ITS | Encounter Summary ---
Author Organization [facility] Address [address] [place] [address] Care Team Providers Care Master Ship Name Role Phone Unavailable Primary Care Provider Unavailabl e Encounter Details Date Type Department Care Team (Late Contact Info) Description 10/05/2024 Orders Only [facility] Matt Saucedo Gold [address] [facility] 110 [place] [address] Ayse Jon LPN [address] [place] [address] Encounter for screening mammogram for malignant neoplasm of breast Social History Tobacco Use Types Packs/Day Years [...] 11:30 AM EST Office Visit [facility] [place] [address] [facility] 110 [place] [address] Ayaan Deras MD [address] [facility] 110 [place] [address] documented as of this encounter Visit Diagnoses Diagnosis Encounter for screening mammogram for malignant neoplasm of breast documented in this encounter
--- OUTSIDE RECORDS SUMMARY | 2025-08-11 13:15 | XMS_ITS | Encounter Summary ---
Author Organization [facility] Address [address] [facility] [place] [address] Care Team Providers Care Barrel Dedenting Machine Operator Name Role Phone Unavailable Primary Care Provider Unavailabl e Encounter Details Date Type Department Care Team (Late st Contact Info) Description 02/27/2025 Abstract [facility] Matt Saucedo Gold 112 [facility] 110 [place] [phone] Unallocated, Noms MD Rosanna 1230 [place] [address] Social History Tobacco Use Types Packs/Day Years [...] 11:30 AM EST Office Visit [facility] [place] Gold [address] [facility] 110 [place] [address] Ayaan Deras MD [address] [facility] 110 [place], [place] [address] documented as of this encounter Visit Diagnoses Not on filedocumented in this encounter
--- OUTSIDE RECORDS SUMMARY | 2025-08-11 13:15 | XMS_ITS | Encounter Summary ---
Author Organization [facility] Address [address] [facility] [place] [address] Care Team Providers Care Software Reliability Engineer Name Role Phone Unavailable Primary Care Provider Unavailabl e Encounter Details Date Type Department Care Team (Late st Contact Info) Description 02/23/2025 Abstract [facility] Matt Saucedo Gold 112 [facility] 110 [place] [address] Unallocated, Noms MD Rosanna 1230 [place] [address] Social History Tobacco Use Types Packs/Day Years [...] AM EST Office Visit [facility] Matt Saucedo Gold [address] [facility] 110 [place] [address] Ayaan Deras MD [address] [facility] 110 [place], [place] [phone] documented as of this encounter Visit Diagnoses Not on filedocumented in this encounter
--- OUTSIDE RECORDS SUMMARY | 2025-08-11 13:15 | XMS_ITS | Encounter Summary ---
Author Organization [facility] Address [address] [facility] [place] [address] Care Team Providers Care Convenience Recycle Center Tech Name Role Phone Unavailable Primary Care Provider Unavailabl e Encounter Details Date Type Department Care Team (Late Contact Info) Description 03/13/2025 Abstract [facility] [place] [address] [place] 110 [place] [address] Unallocated, Noms Provider, [address] [place] [address] Social History Tobacco Use Types Packs/Day Years Used Date Smoking Tobacco: Every Day Cigarettes Smokeless Tobacco: Current Alcohol Use Standard Drinks/Week Comments Yes 0 (1 standard drink = 0.6 oz pur e alcohol) PHQ-2 Answer Date Recorded Patient Health Questionnaire-2 Score 0 03/14/2025 Comments Unknown Sex and Gender Information Value [...] pleasure in doing things Not at all 03/14/2025 1:45 PM EDT Nubia Lee LP N Feeling down, depressed, or hopeless Not at all 03/14/2025 1:45 PM EDT Nubia Lee [facility] N Patient Health Questionnaire -2 Score 0 03/14/2025 1:45 PM EDT Nubia Lee [facility] N documented as of this encounter Plan of Treatment Upcoming Encounters Date Type Department Care Team (Late st Contact Info) Description 10/12/2025 11:30 AM EST Office Visit [facility] [place] Barraza [address] [facility] 110 [place] [address] Ayaan Deras MD 112 [facility] 110 [place] [address] documented as of this encounter Visit Diagnoses Not on filedocumented in this encounter
--- OUTSIDE RECORDS SUMMARY | 2025-08-11 13:15 | XMS_ITS | Encounter Summary ---
Author Organization [facility] Address [address] [facility] [place] [address] Care Team Providers Care Senior Quality Assurance Engineer Name Role Phone Unavailable Primary Care Provider Unavailabl e Encounter Details Date Type Department Care Team (Late st Contact Info) Description 02/27/2025 Abstract [facility] Matt Saucedo Gold 112 [facility] 110 [place] [phone] Unallocated, Noms MD Rosanna 1230 [place] [address] Social History Tobacco Use Types Packs/Day Years [...] Visit [facility] Matt Gold [address] [facility] 110 [place] [address] Ayaan Deras MD [address] [facility] 110 [place], [place] [address] documented as of this encounter Visit Diagnoses Not on filedocumented in this encounter
--- OUTSIDE RECORDS SUMMARY | 2025-08-11 13:15 | XMS_ITS | Clinical Summary ---
Author Organization [facility] Address [address] [place] [address] Care Team Providers Care Phone Operator Name Role Phone Ayaan Deras MD Primary Care Provider [phone] Allergies No known active allergies Medications Lantus Solostar U-100 Insulin 100 unit/mL (3 mL) injection pen INJECT 50 UNITS SUBCUTANEOUSLY ONCE DAILY 02/03/20 23 Active lidocaine (Lidoderm) 5 % patch Apply 1 patch topically IN THE MORNING. Remove & discard patch within 12 hours or as directed by . 11/10/19 24 Active potassium chloride ER (Micro-K) 10 mEq ER capsule 10 mEq once daily in the morning. 11/10/19 24 Active FeroSuL 325 mg (65 mg iron) tablet TAKE 1 TABLET BY MOUTH IN THE MORNING take WITH FOOD 11/10/19 24 Active atorvastatin (Lipitor) 40 mg tablet Take 40 mg by mouth in the morning. 11/10/19 24 Active furosemide (Lasix) 40 mg tablet Take 80 mg by mouth in the morning. 11/03/19 24 Active cloNIDine (Catapres) 0.2 mg tablet Take 0.2 mg by mouth every 8 (eight) hours. 11/03/19 24 Active lisinopril 20 mg tablet Take 20 mg by mouth in the morning. 11/10/19 24 Active traZODone (Desyrel) 100 mg tablet Take 100 mg by mouth at bedtime. 11/10/19 24 Active Farxiga 10 mg Take 10 mg by mouth in the morning. 11/10/19 24 Active pantoprazole (ProtoNix) 40 mg EC tablet Take 40 mg by mouth in the morning. 11/10/19 24 Active carvedilol (Coreg) 6.25 mg tabletIndication s:Benign hypertensive heart disease with heart failure (CMS/HCC) Take 1 tablet (6.25 mg) by mouth with breakfast and with evening meal. 60 tablet 11 11/25/19 24 Active amLODIPine (Norvasc) 5 mg tabletIndication s:Essential hypertension Take 1 tablet (5 mg) by mouth in the morning. 90 tablet 3 11/26/19 24 Active Active Problems Problem Noted Date Diagnosed Date Anemia 11/10/2023 11/25/2023 Bilateral leg edema 11/10/2023 11/25/2023 Radiculopathy, lumbar region 11/10/2023 Combined hyperlipidemia 03/05/2023 11/25/19 24 Diabetic peripheral neuropathy 03/05/2023 0 11/25/2023 Diastolic heart failure 03/05/2023 11/25/19 24 Diverticulitis 03/05/2023 11/25/2023 DUB (dysfunctional uterine bleeding) 03/05/2023 11/25/2023 Excessive bleeding in premenopausal period 03/0511/25/2023 GERD without esophagitis 03/05/2023 024 History of hysterectomy 03/05/2023 11/25/19 24 Insomnia due to medical condition 03/05/2023 11/25/2023 Other dysphagia 03/05/2023 11/25/2023 Tobacco dependence 03/05/2023 11/25/2023 Type 2 diabetes 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 02/2311/25/2023 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 05/14/2020 11/25/2023 Family History Medical History Relation Name Comments COPD Mother Heart failure Mother Heart attack Mother's Brother Relation Name Status Comments Mother Mother's Brother Social History Tobacco Use Types Packs/Day Years Used Date Smoking Tobacco: Every Day Cigarettes Smokeless Tobacco: Never Tobacco Cessation:Ready to Q uit: Not Asked Alcohol Use Standard Drinks/Week Comments Not Currently 0 (1 standard drink = 0.6 oz pur e alcohol) [place] Safety & Environment Answer Date Rec orded Fear of Current or Ex-Partner Not on file Emotionally Abused Not on file 12/17/2023 Physically Abused Not on file 12/17/2023 Sexually Abused Not on file 12/17/2023 Physically or Sexually Abused Not on file Comments Unknown Sex and Gender Information Value Date Recorded Sex Assigned at Not on file Legal Sex Female 3:53 PM EST Gender Identity Not on file Sexual Orientation Not on file Last Filed Vital Signs Vital Sign Reading Time Taken Comments Blood Pressure 134/84 11/25/2023 11:40 AM EST Pulse 78 11/25/2023 11:40 AM EST Temperature - - Respiratory Rate - - Oxygen Saturation 95% 11/25/2023 11:40 AM EST Inhaled Oxygen Concentration - - Weight 98 kg (216 lb) 11/25/2023 11:40 AM EST Height 147.3 cm (4' 10 ) 11/25/2023 11:40 AM EST Body Mass Index 45.14 11/25/2023 11:40 AM EST Plan of Treatment Health Maintenance Due Date Last Done Comments CT Colonography 1971 Colonoscopy 1971 Colorectal Cancer Screening 1971 Diabetes: Hemoglobin A1C 1971 FIT-DNA 1971 FIT 1971 FOBT 1971 Sigmoidoscopy 1971 Diabetes: Retinopathy Screening 1981 Depression Screening 1983 Hepatitis B Vaccines (1 of 3 - 19+ 3-dose series) 1990 Pneumococcal Vaccine: Pediatrics (0 to 5 Years) and At-Risk Patients (6 to 64 Years) (1 of 2 - PCV) 1990 Pap Smear 01/31/1992 Adult Tetanus 1993 Cervical Cancer Screening 2001 HPV/Cotest 2001 Mammogram 2011 Zoster Vaccines (1 of 2) 2021 Diabetes: Urine Protein Screening 01/06/2025 01/07/2024 COVID-19 Vaccine ( season) 2025 04/23/2021, 04/02/2021 Influenza Vaccine (#1) 2025 , 09/04/2021, 08/28/2020, Additional history exists HIB Vaccines Aged Out No longer eligi ble based on patient's age to complete this topic HPV Vaccines Aged Out No longer eligi ble based on patient's age to complete this topic IPV Vaccines Aged Out No longer eligi ble based on patient's age to complete this topic Meningococcal B Vaccine Aged Out No l onger eligible based on patient's age to complete this topic Meningococcal Vaccine Aged Out No demond manjit eligible based on patient's age to complete this topic Rotavirus Vaccines Aged Out No longer eligible based on patient's age to complete this topic Insurance [address] [place] [address] [facility] Care Teams Phone Operator Relationship Specialty Start Date End Date Ayaan Deras MD [address] [place] [address] [place] [address] PCP - General Internal Medicine 11/11/23
--- OUTSIDE RECORDS SUMMARY | 2025-08-11 13:15 | XMS_ITS | Encounter Summary ---
Author Organization [facility] Address [address] [facility] [place] [address] Care Team Providers Care Car Hop Name Role Phone Unavailable Primary Care Provider Unavailabl e Encounter Details Date Type Department Care Team (Late st Contact Info) Description 02/23/2025 Abstract [facility] Matt Saucedo Gold 112 [facility] 110 [place] [address] Unallocated, Noms MD Rosanna 1230 [place] [address] Social History Tobacco Use Types Packs/Day Years [...] [facility] Matt Saucedo Gold [address] [facility] 110 [place] [address] Ayaan Deras MD [address] [place] 110 [place], [place] [phone] documented as of this encounter Visit Diagnoses Not on filedocumented in this encounter
--- OUTSIDE RECORDS SUMMARY | 2025-08-11 13:15 | XMS_ITS | Encounter Summary ---
Author Organization [facility] Address [address] [facility] [place] [address] Care Team Providers Care Technology Resource Teacher Name Role Phone Ayaan Deras MD Unavailable [phone] Encounter Details Date Type Department Care Team (Late Contact Info) Description 11/05/2023 Abstract [facility] [place] Malcolm [address] [facility] 110 [place] [address] Ayaan Deras MD [address] [facility] 110 [place] [address] Social History Tobacco Use Types Packs/Day Years [...] Matt Hanncceline [address] [place] [address] [place] [address] Ayaan Deras MD [address] [place] 110 [place] [address] documented as of this encounter Visit Diagnoses Not on filedocumented in this encounter Care Teams Technology Resource Teacher Relationship Specialty Start Date End Date Ayaan Deras MD [address] [place] [address] [place] [address] PCP - [place] [employer] 09/25/23 documented as of this encounter
--- OUTSIDE RECORDS SUMMARY | 2025-08-11 13:15 | XMS_ITS | Encounter Summary ---
Author Organization [facility] Address [address] [facility] [place] [address] Care Team Providers Care Traffic Recorder Name Role Phone Unavailable Primary Care Provider Unavailabl e Encounter Details Date Type Department Care Team (Late st Contact Info) Description 02/27/2025 Abstract [facility] Matt Saucedo Gold 112 [facility] 110 [place] [address] Unallocated, Noms MD Rosanna 1230 [place] [address] Social History Tobacco Use Types Packs/Day Years [...] Visit [facility]S Matt Gold [address] [facility] 110 [place] [address] Ayaan Deras MD [address] [facility] 110 [place], [place] [phone] documented as of this encounter Visit Diagnoses Not on filedocumented in this encounter
--- OUTSIDE RECORDS SUMMARY | 2025-08-11 13:15 | XMS_ITS | Encounter Summary ---
Author Organization [facility] Address [address] [facility] [place] [address] Care Team Providers Care Cd Reactor Operator Head Name Role Phone Unavailable Primary Care Provider Unavailabl e Encounter Details Date Type Department Care Team (Late st Contact Info) Description 03/02/2025 Abstract [facility] Matt Saucedo Gold 112 [facility] 110 [place] [address] Unallocated, Noms MD Rosanna [address] [place] [address] Social History Tobacco Use Types Packs/Day Years [...] [facility] [place] Saucedo Gold [address] [facility] 110 [place] [address] Ayaan Deras MD [address] [facility] 110 [place], [place] [phone] documented as of this encounter Visit Diagnoses Not on filedocumented in this encounter
--- OUTSIDE RECORDS SUMMARY | 2025-08-11 13:15 | XMS_ITS | Encounter Summary ---
Author Organization [facility] Address [address] [facility] [place] [address] Care Team Providers Care Poultry Eviscerator Name Role Phone Unavailable Primary Care Provider Unavailabl e Encounter Details Date Type Department Care Team (Late st Contact Info) Description 03/14/2025 Abstract [facility] [address] [place] [place] [address] Unallocated, Noms Provider, [address] [place] [address] Social History Tobacco Use Types Packs/Day Years [...] 11:30 AM EST Office Visit [facility] Matt Barraza [address] [facility] 110 [place] [address] Ayaan Deras MD 112 [facility] 110 [place] [address] documented as of this encounter Visit Diagnoses Not on filedocumented in this encounter
--- OUTSIDE RECORDS SUMMARY | 2025-08-11 13:15 | XMS_ITS | Encounter Summary ---
Author Organization [facility] Address [address] [facility] [place] [address] Care Team Providers Care Local Combination Truck Driver Name Role Phone Ayaan Deras MD Unavailable [phone] Encounter Details Date Type Department Care Team (Late Contact Info) Description 11/04/2023 Abstract [facility] [place] Malcolm [address] [facility] 110 [place] [address] Ayaan Deras MD [address] [facility] 110 [place] [address] Social History Tobacco Use Types Packs/Day Years [...] Matt Hanncceline [address] [place] 110 [place] [address] Ayaan Deras MD [address] [place] 110 [place] [address] documented as of this encounter Visit Diagnoses Not on filedocumented in this encounter Care Teams Local Combination Truck Driver Relationship Specialty Start Date End Date Ayaan Deras MD [address] [place] 110 [place] [address] PCP - [place] [employer] 09/25/23 documented as of this encounter
--- OUTSIDE RECORDS SUMMARY | 2025-08-11 13:15 | XMS_ITS | Encounter Summary ---
Author Organization [facility] Address [address] [facility] [place] [address] Care Team Providers Care Buffet Runner Name Role Phone Ayaan Deras MD Unavailable [phone] Encounter Details Date Type Department Care Team (Late Contact Info) Description 05/22/2023 Abstract [facility] [place] Malcolm [address] [facility] 110 [place] [address] Ayaan Deras MD [address] [facility] 110 [place] [address] Social History Tobacco Use Types Packs/Day Years [...] Matt Hanncceline [address] [place] [place] [address] Ayaan Deras MD [address] [place] 110 [place] [address] documented as of this encounter Visit Diagnoses Not on filedocumented in this encounter Care Teams Buffet Runner Relationship Specialty Start Date End Date Ayaan Deras MD [address] [place] [address] [place] [address] PCP - [place] [employer] 09/25/23 documented as of this encounter
--- OUTSIDE RECORDS SUMMARY | 2025-08-11 13:15 | XMS_ITS | Encounter Summary ---
Author Organization [facility] Address [address] [facility] [place] [address] Care Team Providers Care Software Sales Executive Name Role Phone Unavailable Primary Care Provider Unavailabl e Encounter Details Date Type Department Care Team (Late st Contact Info) Description 03/01/2025 Abstract [facility] Matt Saucedo Gold 112 [facility] 110 [place] [phone] Unallocated, Noms MD Rosanna [address] [place] [address] Social History Tobacco Use Types Packs/Day Years [...] [facility]S [place] Saucedo Gold [address] [facility] 110 [place] [address] Ayaan Deras MD [address] [facility] 110 [place], [place] [phone] documented as of this encounter Visit Diagnoses Not on filedocumented in this encounter
--- OUTSIDE RECORDS SUMMARY | 2025-08-11 13:15 | XMS_ITS | CCD ---
Author Organization [facility] Care Team Providers Care 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 Name Role Phone TAMLYN ., HIEU Attending Unavailable BRAEDEN, DR BARBOZA Primary Care Unavailable TAMLYN ., HIEU Admitting Unavailable BRAEDEN, DR BARBOZA Primary Care Unavailable TAMLYN ., HIEU Attending Unavailable TAMLYN ., HIEU Admitting Unavailable TAMLYN ., HIEU Attending Unavailable BRAEDEN, DR BARBOZA Primary Care Unavailable TAMLYN ., HIEU Admitting Unavailable TAMLYN ., HIEU Attending Unavailable TAMLYN ., HIEU Admitting Unavailable BRAEDEN, DR BARBOZA Primary Care Unavailable TAMLYN ., HIEU Attending Unavailable TAMLYN ., HIEU Admitting Unavailable BRAEDEN, DR BARBOZA Primary Care Unavailable TAMLYN ., HIEU Attending Unavailable BRAEDEN, DR BARBOZA Primary Care Unavailable TAMLYN ., HIEU Admitting Unavailable TAMLYN ., HIEU Attending Unavailable BRAEDEN, DR BARBOZA Primary Care Unavailable TAMLYN ., HIEU Admitting Unavailable BRAEDEN, DR BARBOZA Primary Care Unavailable HAY ., DR SOUTH Admitting Unavailable HU ., MR TEJADA Consulting Unavailable ART ., DR SOUTH Attending Unavailable BRAEDEN, DR BARBOZA Primary Care Unavailable BRYCE Matthews, DR ARMENDARIZ Attending Unavailable BRYCE ., DR ARMENDARIZ Admitting Unavailable SAMSA ., DORA Procedure Practitioner Unavailab saba Matthews, DR ARMENDARIZ Consulting Unavailable VINNY JACKSON V Consulting Unavailable BETHANY, DR KATALINA Mcdaniels Consulting Unavailable DEVIN, DR OPAL Bonilla Consulting Unavailable JOHNSON .DONAVAN Consulting Unavailnato e SAM ., DORA Consulting Unavailable HAILEY GALLOWAY Consulting Unavailable DIXIE KHAN Consulting Unavailable LILIANA DICKENS Consulting Unavailable BRAEDEN, DR BARBOZA Consulting Unavailable BRAEDEN, DR BARBOZA Attending Unavailable BRAEDEN, DR BARBOZA Admitting Unavailable BRAEDEN, DR BARBOZA Primary Care Unavailable WILLIAMN ., HIEU Procedure Practitioner Unavailab saba DERAS, DR BARBOZA Primary Care Unavailable SHAIKH Jennifer WONG Attending Unavailable MARVIN, H Admitting Unavailable GRILLIS ., DR LILIANA Vaughn Consulting Unavaila ble IRISHY ., DR ARMENDARIZ Consulting Unavailable FAWWAD, BEAVERS H Procedure Practitioner UnavailVINNY Earl V Consulting Unavailable BETHANY, DR KATALINA Mcdaniels Consulting Unavailable PAY ., DR ODEN Consulting Unavailable GRECHNY ., DONAVAN SCHWAB Consulting Unavailnato e MARVIN, SHAIKH Jennifer Consulting Unavailable GRUBER, SATURNINO Consulting Unavailable NAMITA II, RAIZA Consulting Unavailable TAMLYN ., HIEU Consulting Unavailable FILUTZE, KEV Consulting Unavailable TAMLYN ., HIEU Admitting Unavailable BRAEDEN, DR BARBOZA Primary Care Unavailable TAMLYN ., HIEU Attending Unavailable TAMLYN ., HIEU Attending Unavailable BRAEDEN, DR BARBOZA Primary Care Unavailable TAMLYN ., HIEU Admitting Unavailable TAMLYN ., HIEU Attending Unavailable BRAEDEN, DR BARBOZA Primary Care Unavailable TAMLYN ., HIEU Admitting Unavailable Asaad, Imad Unavailable JOSE F KIRKLAND Attending Unavailable Ayaan Deras MD Primary Care Provider [phone] Unavailable Primary Care Provider UnavailHari Ac DO Admit Provider [phone] Ayaan Deras II Primary Care Provider [phone] Becky Nash MD Attending Provider Isai Rodrigues DO Other Provider Liliana Soliz MD Other Provider Rodo Martinez MD Other Provider Germain Cueva MD Other Provider [phone] Nestor Wright MD Other Provider [phone] Jessica Christian MD Attending Provider Steph Parr DO Other Provider [phone] Kemal Yu DO Attending Provider [phone] Juan Carlos Chavez MD Attending Provider [phone] Becky Nash MD Other Provider Isai Rodrigues DO Other Provider Liliana Soliz MD Attending Provider Rodo Martinez MD Attending Provider Nestor Wright MD Attending Provider [phone] Germain Cueva MD Attending Provider Steph Parr DO Attending Provider [phone] Kemal Yu DO Other Provider Samuel DOE, Carmita Attending Provider Juan Carlos Chavez MD Attending Provider Syeda VELAZQUEZ, Oh Preston Emergency Provider [phone] Riaz DOE, Xavier Admit Provider Riaz DOE, Xavier Attending Provider [phone] Riaz DOE, Xavier Other Provider Carmita Baker MD Other Provider Juan Carlos Chavez MD Other Provider Aris Patel MD Other Provider Liliana Soliz MD Attending Provider Rodo Martinez MD Attending Provider Nestor Wright MD Attending Provider [phone] Riaz DOE, Xavier Admit Provider Unavailable Riaz DOE, Xavier Other Provider Unavailable Ayaan Deras II Primary Care Provider Liliana Soliz MD Attending Provider [phone] Liliana Soliz MD Other Provider Nestor Wright MD Admit Provider [phone] Nestor Wright MD Other Provider Lidia Crowley RN Other Provider Unavailable Ayah RN, Florence Other Provider Unavailable Radha RNKristal Other Provider Unavailable Casandra RN, Sima Other Provider Unavailable Jose RNCatherine Other Provider Unavailable Marcelino RN, Sunshine Other Provider Unavailable Tyra Berg MD Other Provider Sean Balderas DOobir Other Provider Herlinda DOE, Jose Other Provider Kemal Yu DO Other Provider Naresh Samaniego MD Other Provider [phone] Katie DOE, Kiley Other Provider Liliana Ackerman DO Other Provider Sebastián Eldridge MD Other Provider Unavailable Harleen Larson APRN Other Provider Ricarda DOE, Shireen Other Provider Unavailable Latasha Bowles MD Other Provider Liliana Morrison DO Other Provider [phone] Eliud Rojas MD Other Provider Migue Mcgrath MD Other Provider Aniket [employer], Elsi Preston Other Provider Evelia Cortez APRN Other Provider Unavailable Philippe DOE, Rosas Vaughn Other Provider Porter Toth MD Other Provider Tatianna Dumont MD Other Provider Unavailable Koki Naranjo DO Other Provider Abelardo Mccann DO Other Provider [phone] Catina Stovall APRN Other Provider Hari Powell DO Other Provider [phone] Mukesh DOE, Jameel Daniels Other Provider Macarena Arias APRN Other Provider [phone] Penny Reinoso APRN Other Provider Jay Kurtz MD Other Provider Unavailable Ayaan Espinoza MD Other Provider [phone] Pascual DO, Yazid Other Provider Anshul Tomas MD Other Provider Genia Calvin MD Other Provider Rahel Johnston APRN Other Provider Unavailable Saad DOE, Becky Other Provider Dylan Gooden MD Other Provider Elysia DOE, Sebastián Lange Other Provider Jhony Ward MD Other Provider Soraya Perez APRN Other Provider Concepcion DO, Rigo Other Provider [phone] Debra POND, Kayy Other Provider Unavailable Anahi DOE, Jessica Other Provider Ayaan Deras Primary Care Unavailable Scott, Juan Carlos Attending Unavailable Chavez, Juan Carlos Admitting Unavailable Chavez, Juan Carlos Admitting Unavailable Duc Chavezt Attending Unavailable Ayaan Deras Primary Care Unavailable Kemal Yu Attending UnavailLiliana Hill Consulting Unavailable Braeden Ayaan Primary Care Unavailable Hari Powell Admitting Unavailable Rodo Martinez Consulting Unavailable Germain Cueva Consulting Unavailable Nestor Wright Consulting Unavailable Steph Parr Consulting Unavailable Aris Patel Attending Unavailable Liliana Soliz Consulting Unavailable Xavier Mello Admitting Unavailable Ayaan Deras Primary Care Unavailable Carmita Baker Consulting Unavailable Chavez, Juan Carlos Consulting Unavailable Nestor Wright Attending Unavailable Nestor Wright Admitting Unavailable Lidia Crowley Consulting Unavailable Kana Derasel Primary Care Unavailable Florence Poon Consulting Unavailable DensNino rigginselle Consulting Unavailable Sima Guajardo Consulting Unavailable Catherine Garcia Consulting Unavailable Sunshine Benson Consulting Unavailable Tyra Berg Consulting Unavailable Gurwinder Balderas Consulting Unavailable Jose Pate Consulting Unavailable Kemal Yu Consulting UnavailNaresh Garcia Consulting Unavailable Kiley Wilson Consulting Unavailable Liliana Ackerman Consulting Unavailable Sebastián Eldridge Consulting Unavailable Harleen Larson Consulting UnavailAris Soto Consulting Unavailable Shireen Chowdary Consulting Unavailable Latasha Bowles Consulting Unavailable Liliana Morrison Consulting Unavailable Eliud Rojas Consulting Unavailable Migue Mcgrath Consulting Unavailable Elsi Marcial Consulting Unavailable Evelia Cortez Consulting Unavailable Rosas Paez Consulting Unavailab Porter Garay Consulting Unavailable Tatianna Dumont Consulting Unavailable Koki Naranjo Consulting Unavailable Abelardo Mccann Consulting Unavailable Catina Stovall Consulting Unavailable Hari Powell Consulting Unavailable ChidiomaJameel mcdaniels Consulting Unavailable Macarena Arias Consulting Unavailable Penny Reinoso Consulting Unavailable AlaJay slaughter Consulting Unavailable Ayaan Espinoza Consulting Unavailable Lorraine Garner Consulting Unavailable Anshul Tomas Consulting Unavailable Genia Calvin Consulting Unava ilable Rahel Johnston Consulting Unavailable Becky Nash Consulting Unavailable Dylan Gooden Consulting Unavailable Sebastián Naidu Consulting Unavailable Jhony Ward Consulting Unavailable Soraya Perez Consulting Unavailable Boljoey-Jackie Nicolettadrianne Consulting Unavaila Kayy Black Consulting Unavailable Jessica Crhistian Consulting Unavailable Liliana Soliz Consulting Unavailable Juan Carlos Chavez Attending Unavailable Ayaan Deras Primary Care Unavailable Juan Carlos Chavez Admitting Unavailable Jessica Christian Admitting Unavailable Jessica Christian Attending Unavailable Ayaan Deras Primary Care Unavailable Rodo Martinez Admitting Unavailable Rodo Martinez Attending Unavailable Ayaan Deras Primary Care Unavailable Ayaan Deras Primary Care Unavailable Juan Carlos Chavez Attending Unavailable Juan Carlos Chavez Admitting Unavailable Ayaan Deras II Primary Care Provider Rodo Martinez MD Attending Provider [phone] Jessica Christian MD Attending Provider Juan Carlos Chavez MD Attending Provider Koki Naranjo DO Other Provider Unavailable Geneva Eason Attending Provider ERNESTINA BENAVIDES Attending Unavailable AYAAN DERAS Attending Unavailable AYAAN DERAS Attending Unavailable Allergies Allergy Classification Reported Allergen(s) Allergy Type Date of Onset Reaction(s) Facility (4 sources) Latex Drug allergy (disorder) 5 Rash [facility] Repository (1 source) Latex rubber gloves Drug allergy Unknown [facility] Other (9 sources) Latex Allergy to substance 5 Rash [facility] (3 sources) Wheat preparation Drug Allergy 5 [facility] (1 source) Latex Drug allergy (disorder) 5 [facility] Repository (2 sources) Penicillin V Drug Allergy 5 [facility] Medications Current Medications Medication Drug Class(es) Dates Sig (Normalized) Sig (Original) acetaminophen 500 mg oral tablet (9 sources) Start: 03-30-2025 take 2 tablets by mouth every four to six hours as needed for pain Acetaminophen (Tylenol Extra Strength) 500 mg tablet Active 1000 MG PO EVERY 4-6 HOURS as needed for pain March 30, 2025 12:00am Complies with drug therapy acetaminophen 325 mg / oxyCODONE hydrochloride 5 mg oral tablet (20 sources) Opioid Agonist Start: 05-17-2025 End: 06-15-2025 take 1 tablet by mouth every four hours as needed for pain Oxycodone-Acetamino phen 5-325 mg Tablet Discontinued 1 - 2 TAB PO Q4H as needed for Pain Scale 4 - 7 14 May 17, 2025 June 15, 2025 11:06am Start: 04-04-2025 End: 05-17-2025 take 1 tablet by mouth every six hours as needed for pain Oxycodone-Acetaminophen 5-325 mg tablet Active 1 TAB PO Q6H as needed for pain 28 June 27, 2025 Complies with drug therapy Start: 03-14-2025 End: 03-21-2025 oxyCODONE-acetaminophen (Per cocet) 5-325 MG tablet Indications: Skin necrosis (CMS/HCC) Take 0.5-1 tablets by mouth every 6 (six) hours if needed for severe pain for up to 7 days Every 4-6 hours prn severe pain 28 tablet 03/14/2025 03/21/2025 Active Start: 03-10-2025 End: 03-14-2025 take 1 tablet by mouth every four to six hours as needed for pain Start: 03-19-2023 End: 02-26-2025 take 1 tablet by mouth every six hours as needed for pain Oxycodone-Acetaminophen 5-325 mg tablet Discontinued 1 TAB PO Q6H as needed for Pain March 19, 2023 12:00am February 26, 2025 6:22pm Adhesive Tape (Elastic Foam Tape 1 x5yd) tape (15 sources) Start: 03-14-2025 Adhesive Tape (Elastic Foam Tape 1 x5yd) tape Indications: Skin necrosis (HCC) 1 Application every other day 5 each 03/14/2025 Active Start: 03-14-2025 Adhesive Tape (Elastic Foam Tape 1 x5yd) tape Indications: Skin necrosis (CMS/HCC) 1 Application every other day 5 each 03/14/2025 Active amLODIPine 10 mg oral tablet (20 sources) Dihydropyridine Calcium Channel Maggie Start: 05-17-2025 take 5 mg by mouth once daily Amlodipine 10 mg Tablet Active 5 MG PO Daily May 17, 2025 2:06pm Complies with drug therapy Start: 03-09-2025 End: 08-17-2026 take 1 tablet by mouth once daily amLODIPine (Norvasc) 10 MG tablet Indications: Chronic diastolic heart failure (HCC) Take 1 tablet (10 mg) by mouth Daily 100 tablet 3 07/13/2025 08/17/2026 Active atropine sulfate 0.025 mg / diphenoxylate hydrochloride 2.5 mg oral tablet (1 source) Anticholinergic, Cholinergic Muscarinic Antagonist, Antidiarrheal take 1 tablet by mouth every six hours Diphenoxylate-Atropine 2.5-0.025 MG 1 tablet as needed Orally Four times a day Active Blood Pressure Monitoring (Crooks Choice BP Monitor Cuff) misc (15 sources) Start: 2024 Blood Pressure Monitoring (Crooks Choice BP Monitor Cuff) misc 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 1 Device Daily 1 each 03/14/2025 Active Continuous Glucose Break Out Man (Dexcom G7 Break Out Man) device (13 sources) Start: 2024 Continuous Glucose Break Out Man (Dexcom G7 Break Out Man) device Indications: Type 2 diabetes 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, with long-term current use of insulin (HCC) 1 Device Daily 1 each 03/14/2025 Active Start: 03-14-2025 Continuous Glu cose Break Out Man (Dexcom G7 Break Out Man) device Indications: Type 2 diabetes 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, with long-term current use of insulin (CMS/HCC) 1 Device Daily 1 each 03/14/2025 Active Continuous Glucose Sensor [place]com [place]7 Sensor[place] [facility] [place] Start: 03-14-2025 Continuous Glu cose Sensor (Dexcom G7 Sensor[place] [facility] [place]ications: Type 2 diabetes 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, with long-term current use of insulin ([facility]) 1 Device Every 10 (ten) days 9 each 3 03/14/2025 Active Start: 03-14-2025 Continuous Glu cose Sensor (Dexcom G7 Sensor[place] [facility] [place]ications: Type 2 diabetes 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, with long-term current use of insulin (CMS/HCC) 1 Device Every 10 (ten) days 9 each 3 03/14/2025 Active Continuous Glucose Sensor (FreeStyle Maria Esther 3 Plus Sensor) [facility] [place] Start: 06-20-2025 Continuous Glu cose Sensor (FreeStyle Maria Esther 3 Plus Sensor[place] [facility] [place]ications: Type 2 diabetes 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, with long-term current use of insulin ([facility]) 1 each Every 15 Days 2 each 11 06/20/2025 Active furosemide 40 mg oral tablet (20 sources) Loop Diuretic Start: 03-09-2025 End: 05-08-2025 take 1 tablet by mouth twice daily Furosemide 40 mg Tablet Discontinued 40 MG PO BID@0800,1600 60 30 March 09, 2025 12:00am May 08, 2025 6:48pm Further refills, or dose adjustment, per Nephrology, or PCP. Start: 03-19-2023 End: 08-17-2026 take 1 tablet by mouth once daily furosemide (Lasix) 40 MG tablet Indications: Chronic diastolic heart failure (HCC) Take 1 tablet (40 mg) by mouth Daily 100 tablet 3 07/13/2025 08/17/2026 Active 3 ml insulin glargine 100 unt/ml pen injector (20 sources) Insulin Analog Start: 03-14-2025 End: 07-13-2026 inject 10 [IU] by subcutaneous injection at bedtime insulin glargine (Lantus SoloStar) 100 UNIT/ML pen Indications: Type 2 diabetes 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, with long-term current use of insulin ([facility] [place]) Inject 10 Units under the skin at bedtime 9 mL 3 07/13/2025 07/13/2026 Active Start: 11-19-2023 End: 03-14-2025 insulin glargine (Lantus Steph oStar) 100 UNIT/ML pen Indications: Type 2 diabetes 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, with long-term current use of insulin (CMS/HCC) Inject 60 Units under the skin in the morning. 5 mL 12 11/19/2023 03/14/2025 Discontinued (Reorder) Start: 03-19-2023 End: 02-26-2025 Insulin Glargine (Lantus Steph ostar U-100 Insulin) 100 unit/mL (3 mL) insulin pen Discontinued 60 UNIT SUBCUT Every morning March 19, 2023 12:00am February 26, 2025 6:22pm Lantus Active losartan potassium 100 mg oral tablet (20 sources) Angiotensin 2 Receptor Maggie Start: 03-09-2025 End: 08-17-2026 take 1 tablet by mouth once daily losartan (Cozaar) 100 MG tablet Indications: Chronic diastolic heart failure (HCC) Take 1 tablet (100 mg) by mouth Daily 100 tablet 3 07/13/2025 08/17/2026 Active metoclopramide 5 mg oral tablet (16 sources) Dopamine-2 Receptor Antagonist Start: 04-25-2025 take 1 tablet by mouth three times daily Metoclopramide Hcl 5 mg tablet Active 5 MG PO Three times daily April 25, 2025 12:00am Complies with drug therapy Start: 03-31-2025 take 0.5 tablet by m outh in the morning, then take 0.5 tablet by mouth in the evening, then take 0.5 tablet by mouth at bedtime metoclopramide (Reglan) 5 MG tablet Take 0.5 tablets by mouth in the morning and 0.5 tablets in the evening and 0.5 tablets before bedtime. 03/31/2025 Active Ozan (No Known Home Meds) (1 source) Start: 02-26-2025 Ozan (No Kn own Home Meds) Active February 26, 2025 12:00am ondansetron 4 mg oral tablet (20 sources) Serotonin-3 Receptor Antagonist Start: 04-25-2025 take 1 tablet by mouth three times weekly Ondansetron Hcl 4 mg tablet Active 4 MG PO 3 Times a week April 25, 2025 12:00am Complies with drug therapy Start: 04-06-2025 End: 07-13-2025 take 1 tablet by mouth every eight hours as needed ondansetron (Zofran) 4 MG tablet Take 4 mg by mouth every 8 (eight) hours if needed 04/06/2025 07/13/2025 Discontinued Start: 03-28-2025 End: 05-08-2025 take 1 tablet by mouth once daily Ondansetron 4 mg tablet,disintegrating Discontinued 4 MG PO Daily March 28, 2025 12:00am May 08, 2025 6:49pm FreeTextSi tablet on the tongue and allow to dissolve Orally Once a day; Note: Source Status: Taking; Provider: Braulio Leon ( ) Start: 03-19-2023 End: 02-26-2025 Ondansetron Hcl 4 mg tablet Discontinued 4 MG PO As Directed as needed for Nausea March 19, 2023 12:00am February 26, 2025 6:22pm take 1 tablet by christel th every twenty-four hours Ondansetron 4 MG 1 tablet on the tongue and allow to dissolve Orally Once a day Active pantoprazole 40 mg delayed release oral tablet (20 sources) Proton Pump Inhibitor Start: 07-13-2025 take 1 tablet by mouth once daily pantoprazole (ProtoNix) 40 MG EC tablet Indications: GERD without esophagitis Take 1 tablet (40 mg) by mouth Daily 100 tablet 3 07/13/2025 Active Start: 07-13-2025 take 1 tablet by christel th once daily pantoprazole (ProtoNix) 40 MG EC tablet Indications: GERD without esophagitis Take 1 tablet (40 mg) by mouth Daily 100 tablet 3 07/13/2025 Active Start: 03-19-2023 End: 07-13-2025 take 1 tablet by mouth once daily pantoprazole (ProtoNix) 40 MG EC tablet Indications: GERD without esophagitis Take 1 tablet (40 mg) by mouth Daily 100 tablet 3 04/14/2025 07/13/2025 Discontinued (Reorder) polyethylene glycol 3350 [id number] mg / potassium chloride 2970 mg / sodium bicarbonate 6740 mg / sodium chloride 5860 mg / sodium sulfate 46220 mg powder for oral solution (1 source) Osmotic Laxative Start: 03-11-2023 take 236 g by mouth once daily Golytely 236 GM 236 gm Orally the day before colonoscopy for 1 days February, Active sertraline 50 mg oral tablet (3 sources) Serotonin Reuptake Inhibitor Start: 07-05-2025 take 1 tablet by mouth once daily Sertraline 50 mg tablet Active 50 MG PO Daily July 11, 2025 12:00am Complies with drug therapy sevelamer carbonate 800 mg oral tablet (20 sources) Phosphate Binder Start: 03-11-2025 sevelamer carbonate (Renvela) 800 MG tablet Take 800 mg by mouth in the morning and 800 mg at noon and 800 mg in the evening. Take with meals. 03/11/2025 Active Start: 03-09-2025 take 1 tablet by christel th once at mealtime Sevelamer Carbonate 800 mg Tablet Active 800 MG PO 3x/Day with meals 90 March 09, 2025 12:00am Further refills, or dose adjustment, per Nephrology. Complies with drug therapy sodium polystyrene sulfonate 75285 mg powder for oral suspension (8 sources) End: 04-17-2025 take 15 g by mouth once sodium polystyrene sulfonate (Kayexalate) powder Take 15 g by mouth 1 (one) time Take 120 ml PO as directed by Dialysis Clinic - emgergency use only - 04/17/2025 Discontinued Completed/Discontinued Medications Medication Drug Class(es) Dates Sig (Normalized) Sig (Original) amoxicillin 500 mg / clavulanate 125 mg oral tablet (5 sources) Penicillin-class Antibacterial Start: 05-17-2025 End: 05-30-2025 take 1 tablet by mouth twice daily Amoxicillin-Pot Clavulanate (Augmentin) 500-125 mg tablet Discontinued 1 TAB PO Twice daily 14 May 17, 2025 12:00am May 30, 2025 9:18am atorvastatin 40 mg oral tablet (15 sources) HMG-CoA Reductase Inhibitor Start: 03-19-2023 End: 03-14-2025 take 1 tablet by mouth once daily Atorvastatin 40 mg tablet Discontinued 40 MG PO Daily March 19, 2023 12:00am February 26, 2025 6:23pm carvedilol 6.25 mg oral tablet (4 sources) alpha-Adrenergic Maggie, beta-Adrenergic Maggie End: 03-14-2025 carvedilol (Coreg) 6.25 MG tablet Take by mouth 2 (two) times a day with meals 03/14/2025 Discontinued cloNIDine hydrochloride 0.2 mg oral tablet (4 sources) Central alpha-2 Adrenergic Agonist Start: 11-03-2023 End: 03-14-2025 take 1 tablet by mouth every eight hours cloNIDine (Catapres) 0.2 MG tablet Take 0.2 mg by mouth every 8 (eight) hours 11/03/2023 03/14/2025 Discontinued Continuous Blood Gluc Break Out Man (Dexcom G4 elem end frazer) device (4 sources) Start: 02-19-2023 End: 03-14-2025 Continuous Blood Gluc Break Out Man (Dexcom G4 elem end frazer) device Inject 1 Device under the skin. 02/19/2023 03/14/2025 Discontinued Start: 02-19-2023 Continuous Blo od Gluc Break Out Man (Dexcom G4 elem end frazer) device Inject 1 Device under the skin. 02/19/2023 Active Continuous Blood Gluc Sensor (Dexcom G4 Sensor) misc (4 sources) Start: 01-06-2024 End: 03-14-2025 Continuous Blood Gluc Sensor (Dexcom G4 Sensor) mis Indications: Type 2 diabetes 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, with long-term current use of insulin (CMS/HCC) Place 1 application on the skin every 14 (fourteen) days 6 each 11 01/06/2024 03/14/2025 Discontinued Start: 01-06-2024 Continuous Blo od Gluc Sensor (Dexcom G4 Sensor) mis Indications: Type 2 diabetes 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, with long-term current use of insulin (CMS/HCC) Place 1 application on the skin every 14 (fourteen) days 6 each 11 01/06/2024 Active Continuous Blood Gluc Transmit (Dexcom G4 elem transmitter) misc (4 sources) Start: 11-10-2023 End: 03-14-2025 inject 1 dose by subcutaneous injection once Continuous Blood Gluc Transmit (Dexcom G4 elem transmitter) misc Indications: Type 2 diabetes 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, with long-term current use of insulin (CMS/HCC) Inject 1 each under the skin every 14 (fourteen) days 6 each 11/10/2023 03/14/2025 Discontinued Start: 11-10-2023 inject 1 dose by sub cutaneous injection once Continuous Blood Gluc Transmit (Dexcom G4 elem transmitter) misc Indications: Type 2 diabetes 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, with long-term current use of insulin (CMS/HCC) Inject 1 each under the skin every 14 (fourteen) days 6 each 3 11/10/2023 Active dapagliflozin 10 mg oral tablet (11 sources) Sodium-Glucose Cotransporter 2 Inhibitor Start: 03-19-2023 End: 02-26-2025 take 1 tablet by mouth once daily Dapagliflozin Propanediol (Farxiga) 10 mg tablet Discontinued 10 MG PO Daily March 19, 2023 12:00am February 26, 2025 6:22pm ferrous sulfate 325 mg oral tablet (15 sources) Start: 03-19-2023 End: 03-14-2025 take 1 tablet by mouth once daily Ferrous Sulfate 325 mg (65 mg iron) tablet Discontinued 325 MG PO Daily March 19, 2023 12:00am February 26, 2025 6:22pm 3 ml insulin glargine 100 unt/ml / lixisenatide 0.033 mg/ml pen injector (10 sources) Insulin Analog Start: 07-26-2021 End: 03-19-2023 Insulin Glargine-Lixisenat sukumar (Soliqua 100/33) 100 unit-33 mcg/mL Insulin Pen Discontinued 35 UNIT SUBCUT Every morning July 26, 2021 12:00am March 19, 2023 8:00am lidocaine 0.04 mg/mg medicated patch (10 sources) Antiarrhythmic, Amide Local Anesthetic Start: 03-19-2023 End: 02-26-2025 apply 1 dose topically once daily as needed for pain Lidocaine 4 % Adhesive Patch,Medicated Discontinued 1 PATCH TOPICAL Daily as needed for Pain March 19, 2023 12:00am February 26, 2025 6:22pm metFORMIN hydrochloride 500 mg oral tablet (10 sources) Biguanide Start: 07-26-2021 End: 03-19-2023 take 1 tablet by mouth twice daily Metformin 500 mg Tablet Discontinued 500 MG PO Twice daily July 26, 2021 12:00am March 19, 2023 7:59am 24 hr nicotine 0.875 mg/hr transdermal system (10 sources) Cholinergic Nicotinic Agonist Start: 03-19-2023 End: 02-26-2025 apply 1 dose transdermal route every twenty-four hours Nicotine 21 mg/24 hr patch 24 hour Discontinued 1 PATCH TRANSDERML Daily March 19, 2023 12:00am February 26, 2025 6:22pm potassium chloride 10 meq extended release oral capsule (4 sources) Start: 11-10-2023 End: 03-14-2025 take 1 capsule by mouth in the morning potassium chloride ER (Micro-K) 10 MEQ ER capsule Indications: Chronic diastolic heart failure (CMS/HCC) Take 1 capsule (10 mEq) by mouth in the morning. 100 capsule 3 11/10/2023 03/14/2025 Discontinued spironolactone 25 mg oral tablet (11 sources) Aldosterone Antagonist Start: 03-19-2023 End: 02-26-2025 take 1 tablet by mouth once daily Spironolactone 25 mg tablet Discontinued 25 MG PO Daily March 19, 2023 12:00am February 26, 2025 6:22pm traZODone hydrochloride 100 mg oral tablet (15 sources) Serotonin Reuptake Inhibitor Start: 03-19-2023 End: 03-14-2025 take 1 tablet by mouth once daily at bedtime as needed Trazodone 100 mg tablet Discontinued 100 MG PO Daily at bedtime as needed for Insomnia March 19, 2023 12:00am February 26, 2025 6:22pm vancomycin 125 mg oral capsule (18 sources) Glycopeptide Antibacterial Start: 03-09-2025 End: 04-17-2025 take 1 capsule by mouth four times daily Vancomycin 125 mg Capsule Discontinued 125 MG PO Four times daily 40 March 09, 2025 12:00am March 28, 2025 10:14am Start: 03-19-2023 take 1 capsule by mo [facility] four times daily Vancomycin HCl 125 MG 1 capsule Orally 4 times daily for 10 days February, Active Problems Active Problems Problem Classification Problem Date Documented Date Episodic/Chronic Bacterial infection; unspecified site (1 source) Other specified bacterial agents as the cause of diseases classified elsewhere; Translations: [OTH SPEC BACTERIAL DZ CLASS ELSW] Onset: 3 Episodic Chronic kidney disease (20 sources) Anemia of renal disease; Translations: [Chronic kidney disease, unspecified] Onset: 5 02-23-2025 Chronic Chronic kidney disease (1 source) Chronic kidney disease; Translations: [CHRONIC KIDNEY DISEASE STAGE 3A] Onset: 2 Chronic obstructive pulmonary disease and bronchiectasis (1 source) Chronic obstructive pulmonary disease, unspecified; Translations: [COPD UNSPECIFIED] Onset: 3 Chronic Complications of surgical procedures or medical care (20 sources) Other complications of procedures, not elsewhere classified, subsequent encounter; Translations: [Other complications of procedures, not elsewhere classified, initial encounter] Onset: 3 Episodic Congestive heart failure; nonhypertensive (20 sources) Chronic diastolic (congestive) heart failure; Translations: [Acute diastolic (congestive) heart failure] Onset: 2 Chronic Deficiency and other anemia (1 source) Anemia in chronic kidney disease; Translations: [Anemia in chronic kidney disease] Onset: 5 Chronic Diabetes mellitus with complications (20 sources) Type 2 diabetes 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; Translations: [Type 2 diabetes mellitus with diabetic chronic kidney disease] Onset: 3 Resolved: 4 03-05-2023 Chronic Diabetes mellitus without complication (20 sources) Type 2 diabetes mellitus without complications; Translations: [Diabetes mellitus] Onset: 2 02-23-2025 Chronic Comment on above: Problem List clean-u p per request of Phys. EHR Cmte Diseases of white blood cells (9 sources) Elevated white blood cell count, unspecified; Translations: [Leukocytosis, unspecified] Onset: 2 03-09-2025 Chronic Disorders of lipid metabolism (19 sources) Hyperlipidemia, unspecified; Translations: [Pure hypercholesterolemia, unspecified] Onset: 2 03-05-2023 Chronic Diverticulosis and diverticulitis (17 sources) Diverticulitis; Translations: [Diverticulitis of intestine, part unspecified, without perforation or abscess without bleeding] Onset: 3 03-05-2023 Chronic Esophageal disorders (20 sources) Gastroesophageal reflux disease without esophagitis; Translations: [Gastro-esophageal reflux disease without esophagitis] Onset: 3 03-05-2023 Chronic Essential hypertension (20 sources) Essential (primary) hypertension; Translations: [Hypertensive disorder] Onset: 3 02-23-2025 Chronic Fluid and electrolyte disorders (20 sources) Hypokalemia; Translations: [Metabolic acidosis] Onset: 2 02-23-2025 Episodic Gangrene (13 sources) Gangrene, not elsewhere classified; Translations: [Skin necrosis] Onset: 3 02-23-2025 Episodic Gastritis and duodenitis (19 sources) Gastroduodenitis, unspecified, without bleeding; Translations: [Acute gastritis] Onset: 2 03-14-2025 Episodic Hypertension with complications and secondary hypertension (20 sources) Hypertensive heart and chronic kidney disease with heart failure and stage 1 through stage 4 chronic kidney disease, or unspecified chronic kidney disease; Translations: [Hypertensive urgency] Onset: 2 Chronic Intestinal infection (20 sources) Clostridium difficile diarrhea; Translations: [Enterocolitis due to Clostridium difficile, not specified as recurrent] Onset: 5 03-14-2025 Episodic Malaise and fatigue (4 sources) Physical deconditioning; Translations: [Other malaise] 03-14-2025 Episodic Menopausal disorders (17 sources) Menorrhagia; Translations: [Excessive bleeding in the premenopausal period] Onset: 3 03-05-2023 Chronic Mood disorders (1 source) Major depressive disorder, single episode, unspecified; Translations: [JOSÉ DEPRESS D/O SINGLE EPIS UNS] Onset: 2 Chronic Open wounds of head; neck; and trunk (20 sources) Open wound of abdomen; Translations: [Unspecified open wound of abdominal wall, unspecified quadrant without penetration into peritoneal cavity, initial encounter] Onset: 5 03-14-2025 Episodic Other connective tissue disease (2 sources) Pain in right leg; Translations: [Pain in right leg] Onset: 4 Episodic Other connective tissue disease (2 sources) Pain in left leg; Translations: [Pain in left leg] Onset: 4 Episodic Other diseases of kidney and ureters (12 sources) Secondary hyperparathyroidism; Translations: [Secondary hyperparathyroidism of renal origin] 05-09-2025 Chronic Other diseases of kidney and ureters (1 source) Secondary hyperparathyroidism of renal origin; Translations: [Secondary hyperparathyroidism of renal origin] Onset: 5 Chronic Other disorders of stomach and duodenum (20 sources) Gastroparesis syndrome; Translations: [Gastroparesis] 03-14-2025 Episodic Other female genital disorders (17 sources) Abnormal uterine bleeding; Translations: [Other specified abnormal uterine and vaginal bleeding] Onset: 3 03-05-2023 Chronic Other gastrointestinal disorders (4 sources) Diarrhea, unspecified; Translations: [DIARRHEA UNSPECIFIED] Onset: 3 Episodic Other gastrointestinal disorders (1 source) Diarrhea; Translations: [Diarrhea, unspecified] Episodic Other gastrointestinal disorders (14 sources) Chronic constipation; Translations: [Other constipation] 03-30-2025 Episodic Other nervous system disorders (8 sources) Acute postoperative pain; Translations: [Other acute postprocedural pain] 04-04-2025 Episodic Other nervous system disorders (1 source) Other acute postprocedural pain; Translations: [Other acute postprocedural pain] Onset: 5 Episodic Other nutritional; endocrine; and metabolic disorders (1 source) Body mass index (BMI) 45.0-49.9, adult; Translations: [BODY MASS INDEX BMI 45.0-49.9 ADULT] Onset: 3 Chronic Other nutritional; endocrine; and metabolic disorders (1 source) Morbid (severe) obesity due to excess calories; Translations: [MORBID SEVERE OBES D/T EXCESS YG] Onset: 3 Chronic Other nutritional; endocrine; and metabolic disorders (20 sources) Calciphylaxis; Translations: [Other disorders of calcium metabolism] 02-23-2025 Chronic Other nutritional; endocrine; and metabolic disorders (15 sources) Hyperphosphatemia; Translations: [Other disorders of phosphorus metabolism] 02-23-2025 Chronic Other nutritional; endocrine; and metabolic disorders (6 sources) Other disorders of calcium metabolism; Translations: [Other disorders of calcium metabolism] Onset: 5 02-23-2025 Chronic Other nutritional; endocrine; and metabolic disorders (4 sources) Other disorders of phosphorus metabolism; Translations: [Disorders of phosphorus metabolism] Onset: 5 02-23-2025 Chronic Other nutritional; endocrine; and metabolic disorders (2 sources) Obesity caused by energy imbalance; Translations: [Morbid (severe) obesity due to excess calories] 04-17-2025 Chronic Other nutritional; endocrine; and metabolic disorders (2 sources) Body mass index 40+ - severely obese; Translations: [Body mass index (BMI) 40.0-44.9, adult] 04-17-2025 Chronic Other screening for suspected conditions (not mental disorders or infectious disease) (20 sources) Patient encounter status; Translations: [Encounter for screening for malignant neoplasm of colon] Onset: 5 02-23-2025 Episodic Comment on above: Problem List clean-u p per request of Phys. EHR Cmte Residual codes; unclassified (17 sources) Insomnia co-occurrent and due to medical condition; Translations: [Insomnia due to medical condition] Onset: 3 03-05-2023 Chronic Residual codes; unclassified (15 sources) Obstructive sleep apnea syndrome; Translations: [Obstructive sleep apnea (adult) (pediatric)] 03-30-2025 Chronic Residual codes; unclassified (1 source) Obstructive sleep apnea (adult) (pediatric); Translations: [Obstructive sleep apnea (adult) (pediatric)] Onset: 5 Chronic Residual codes; unclassified (2 sources) Localized edema; Translations: [Localized edema] Onset: 4 Episodic Residual codes; unclassified (12 sources) Failed encounter 05-08-2025 Episodic Skin and subcutaneous tissue infections (16 sources) Cellulitis of other sites; Translations: [Cellulitis of abdominal wall ] Onset: 3 05-08-2025 Episodic Spondylosis; intervertebral disc disorders; other back problems (19 sources) Lumbar radiculopathy; Translations: [Radiculopathy, lumbar region] Onset: 4 11-10-2023 Episodic Substance-related disorders (19 sources) Nicotine dependence, cigarettes, with unspecified nicotine-induced disorders; Translations: [Nicotine dependence, cigarettes, uncomplicated] Onset: 3 03-05-2023 Chronic Unclassified (1 source) CHRN KIDNEY DISEASE STG 3 UNSP; Translations: [CHRN KIDNEY DISEASE STG 3 UNSP] Onset: 3 Unclassified (1 source) CONTACT W/AND (SUSP) EXPOS COVID-19; Translations: [CONTACT W/AND (SUSP) EXPOS COVID-19] Onset: 2 Unclassified (5 sources) Please bring your photo ID, insurance card, and current list of medications. Unclassified (5 sources) Unclassified (5 sources) Follow up with Dr. Chavez. Please preregister with central scheduling at [phone] Unclassified (10 sources) Call if needed. Unclassified (10 sources) Hospital follow up appointment. Please call and reschedule if needed. Unclassified (10 sources) The office will call with pathology results from your EGD. Unclassified (5 sources) You are scheduled for your next dressing change on the following date and time. Please call to reschedule if needed. Unclassified (5 sources) Your next dialysis treatment is scheduled for the following date and time. Please arrive by 11 am. Unclassified (5 sources) Follow up with Dr. Chavez. Unclassified (10 sources) Post hospital appointment. Please call to reschedule if needed. Unclassified (2 sources) Call for appointment. I would like to see you in 2 to 3 weeks if no problems before hand Unclassified (1 source) Acidosis, unspecified; Translations: [Acidosis, unspecified] Onset: Past or Other Problems Problem Classification Problem Date Documented Da te Episodic/Chronic Acute and unspecified renal failure (11 sources) Acute kidney failure, unspecified; Translations: [Acute renal failure syndrome] Onset: 12-03-2022 02-23-2025 Episodic Deficiency and other anemia (1 source) Anemia, unspecified; Translations: [ANEMIA UNSPECIFIED] Onset: 12-03-2022 Episodic Deficiency and other anemia (17 sources) Anemia; Translations: [Anemia, unspecified] Onset: 11-10-2023 11-10-2023 Episodic Mood disorders (10 sources) Mood disorders; Translations: [DEPRESSION UNSPECIFIED] Onset: 12-03-2022 04-17-2025 Mycoses (10 sources) Candidal intertrigo; Translations: [Candidiasis of skin and nail] Onset: 02-23-2025 02-23-2025 Episodic Nausea and vomiting (10 sources) Nausea and vomiting; Translations: [Nausea with vomiting, unspecified] Onset: 02-23-2025 02-27-2025 Episodic Nonmalignant breast conditions (1 source) Mastitis without abscess; Translations: [MASTITIS WITHOUT ABSCESS] Onset: 12-03-2022 Episodic Other aftercare (1 source) senior care (current) use of oral hypoglycemic drugs; Translations: [CARE HOME USE ORAL HYPOGLYCEMIC DX] Onset: 12-03-2022 Episodic Other aftercare (1 source) Other local intermodal truck driver (current) drug therapy; Translations: [OTH TELEHEALTH CASE MANAGER CURRENT DRUG THERAPY] Onset: 12-03-2022 Episodic Other aftercare (1 source) local intermodal truck driver (current) use of insulin; Translations: [TELEHEALTH CASE MANAGER CURRENT USE OF INSULIN] Onset: 12-03-2022 Episodic Other aftercare (17 sources) Long-term current use of insulin; Translations: [local intermodal truck driver (current) use of insulin] Onset: 05-14-2020 03-16-2023 Episodic Other disorders of stomach and duodenum (5 sources) Gastroparesis; Translations: [Gastroparesis] Onset: 02-23-2025 03-09-2025 Episodic Other ear and sense organ disorders (3 sources) Otalgia, right ear; Translations: [OTALGIA RIGHT EAR] Onset: 04-20-2022 Episodic Other gastrointestinal disorders (1 source) Other fecal abnormalities; Translations: [OTHER FECAL ABNORMALITIES] Onset: 08-12-2022 Episodic Other gastrointestinal disorders (20 sources) Dysphagia; Translations: [Other dysphagia] Onset: 10-05-2017 Resolved: 11-10-2023 03-05-2023 Episodic Other gastrointestinal disorders (15 sources) History of gastritis; Translations: [Personal history of other diseases of the digestive system] Onset: 03-14-2025 03-14-2025 Episodic Other gastrointestinal disorders (3 sources) Other constipation; Translations: [Constipation, unspecified] Onset: 02-23-2025 03-09-2025 Episodic Other upper respiratory infections (1 source) [...] MALIG NEOPLASM OF BREAST] Onset: 12-03-2022 Episodic Residual codes; unclassified (17 sources) Bilateral lower limb edema; Translations: [Localized edema] Onset: 11-10-2023 11-10-2023 Episodic Respiratory failure; insufficiency; arrest (adult) (1 source) Acute respiratory failure with hypoxia; Translations: [ACUTE RESPIRATORY FAIL W/HYPOXIA] Onset: 08-12-2022 Episodic Septicemia (except in labor) (4 sources) Sepsis, unspecified organism; Translations: [Severe sepsis without septic shock] Onset: 11-21-2022 Episodic Results Test Name Value Interpretation Reference Range Facility ALBUMIN, RANDOM URINE W/CREA Leslye 07-18-2025 ALBUMIN, URINE 93.4 mg/dL Normal See Note: [facility] Comment on above: Result Comment: Refe rence Range: Reference Range Not established Results verified by repeat analysis on dilution. Performed By: #### 1 230, 1759 #### [facility] [address] [place] [address] Courtesy Bus Driver: Valencia Palmer #### 7600, [id number] #### [facility] [address], [address] [place] [address] Courtesy Bus Driver: Kody Manriquez MD ALBUMIN/CREATININE RATIO, RANDOM URINE 2458 mg/g creat High <30 [facility] Comment on above: Result Comment: The ADA defines abnormalities in albumin excretion as follows: Albuminuria Category Result (mg/g creatinine) Normal to Mildly increased <30 Moderately increased 30-299 Severely increased > OR = 300 The ADA recommends that at least two of three specimens collected within a 3-6 month period be abnormal before considering a patient to be within a diagnostic category. Performed By: #### 1 230, 175 #### [facility] [address] [place] [id number] Courtesy Bus Driver: Valencia Palmer #### 7600, [id number] #### [facility] [address], [address] [place] [address] Courtesy Bus Driver: Kody Manriquez MD Creatinine (U) [Mass/Vol] 38 mg/dL Normal 20-275 [facility] Comment on above: Performed By: #### 1 230, 175 #### [facility] [address] [place] [id number] Courtesy Bus Driver: Valencia Palmer #### 7600, 6517 #### [facility] [address], [address] [place] [address] Courtesy Bus Driver: Kody Manriquez MD CBC (H/H, RBC, INDICES, WBC, PLT)on 07-18-2025 Erythrocyte distribution width (RBC) [Ratio] 21.3 % High 11.0-15.0 [facility] Comment on above: Performed By: #### 1 0231, 1759 #### [facility] [facility] [address] Courtesy Bus Driver: Valencia Palmer #### 7600, 6517 #### [facility] [address], [address] [place] [address] Courtesy Bus Driver: Kody Manriquez MD Hematocrit (Bld) [Volume fraction] 39.2 % Normal 35.0-45.0 [facility] Comment on above: Performed By: #### 1 0231, 1759 #### [facility] [facility] [address] Courtesy Bus Driver: Valencia Palmer #### 7600, 6517 #### [facility] [address], [address] [place] [address] Courtesy Bus Driver: Kody Manriquez MD Hemoglobin (Bld) [Mass/Vol] 12.0 g/dL Normal 11.7-15.5 [facility] Comment on above: Performed By: #### 1 0231, 1759 #### [facility] [facility] [address] Courtesy Bus Driver: Valencia Palmer #### 7600, 6517 #### [facility] [address], [address] [place] [address] Courtesy Bus Driver: Kody Manriquez MD MCH (RBC) [Entitic mass] 27.0 pg Normal 27.0-33.0 [facility] Comment on above: Performed By: #### 1 0231, 1759 #### [facility] [address] [place] [address] Courtesy Bus Driver: Valencia Palmer #### 7600, 6517 #### [facility] [place] [address] Courtesy Bus Driver: Kody Manriquez MD MCHC (RBC) [Mass/Vol] 30.6 g/dL Low 32.0-36.[address] [facility] Comment on above: Result Comment: For adults, a slight decrease in the calculated MCHC value (in the range of 30 to 32 g/dL) is most likely not clinically significant; however, it should be interpreted with caution in correlation with other red cell parameters and the patient's clinical condition. Performed By: #### 1 230, 1759 #### [facility] Courtesy Bus Driver: Valencia Palmer #### 7600, 6517 #### [facility] [place] [address] Courtesy Bus Driver: Kody Manriquez MD MCV (RBC) [Entitic vol] 88.1 fL Normal 80.0-100.0 [facility] Comment on above: Performed By: #### 1 230, 175 #### [facility] Courtesy Bus Driver: Valencia Palmer #### 7600, 6517 #### [facility] [place] [address] Courtesy Bus Driver: Kody Manriquez MD Platelet mean volume (Bld) [Entitic vol] 9.6 fL Normal 7.5-12.5 [facility] Comment on above: Performed By: #### 1 230, 175 #### [facility] [address] [place], [place] [id number] Courtesy Bus Driver: Valencia Palmer #### 7600, 6517 #### [facility] [place] [address] Courtesy Bus Driver: Kody Manriquez MD Platelets (Bld) [#/Vol] 230 10*3/uL Normal 140-400 [facility] Comment on above: Performed By: #### 1 230, 175 #### [facility] [address] Courtesy Bus Driver: Valencia Palmer #### 7600, 6517 #### [facility] [address], [address] [place] [address] Courtesy Bus Driver: Kody Manriquez MD RBC (Bld) [#/Vol] 4.45 10*6/uL Normal 3.80-5.10 [facility] Comment on above: Performed By: #### 1 0231, 1759 #### [facility] [address] [place] [address] Courtesy Bus Driver: Valencia Palmer #### 7600, 6517 #### [facility] [place] [address] Courtesy Bus Driver: Kody Manriquez MD WBC (Bld) [#/Vol] 10.1 10*3/uL Normal 3.8-10.8 [facility] Comment on above: Result Comment: Revi ew of peripheral smear confirms automated results. Performed By: #### 1 230, 1759 #### [facility] [address] [place] [address] Courtesy Bus Driver: Valencia Palmer #### 7600, 6517 #### [facility] [address], [address] [place] [address] Courtesy Bus Driver: Kody Manriquez MD [facility] 07-18-2025 Albumin [Mass/Vol] 3.8 g/dL Normal 3.6-5.1 [facility] Comment on above: Performed By: #### 1 0231, 1759 #### [facility] [address] [place] [address] Courtesy Bus Driver: Valencia Palmer #### 7600, 6517 #### [facility] [address], [address] [place] [address] Courtesy Bus Driver: Kody Manriquez MD Albumin/Globulin [Mass ratio] 1.2 {ratio} Normal 1.0-2.5 [facility] Comment on above: Performed By: #### 1 230, 175 #### [facility] Courtesy Bus Driver: Valencia Palmer #### 7600, 6517 #### [facility] [address], [address] [place] [address] Courtesy Bus Driver: Kody Manriquez MD ALP [Catalytic activity/Vol] 68 U/L Normal 37-153 [facility] Comment on above: Performed By: #### 1 230, 175 #### [facility] [address] [place], [place] [address] Courtesy Bus Driver: Valencia Palmer #### 7600, 6517 #### [facility] [address], [address] [place] [address] Courtesy Bus Driver: Kody Manriquez MD ALT [Catalytic activity/Vol] 11 U/L Normal 6-29 [facility] Comment on above: Performed By: #### 1 230, 175 #### [facility] [facility] [address] Courtesy Bus Driver: Valencia Palmer #### 7600, 6517 #### [facility] [place] [address] Courtesy Bus Driver: Kody Manriquez MD AST [Catalytic activity/Vol] 15 U/L Normal 10-35 [facility] Comment on above: Performed By: #### 1 230, 175 #### [facility] [address] [place] [address] Courtesy Bus Driver: Valencia Palmer #### 7600, 6517 #### [facility] [address], [address] [place] [address] Courtesy Bus Driver: Kody Manriquez MD Bilirubin [Mass/Vol] 0.3 mg/dL Normal 0.2-1.2 [facility] Comment on above: Performed By: #### 1 230, 175 #### [facility] [address] [place], [place] [id number] Courtesy Bus Driver: Valencia Palmer #### 7600, 6517 #### [facility] [address], [address] [place] [address] Courtesy Bus Driver: Kody Manriquez MD Calcium [Mass/Vol] 9.3 mg/dL Normal 8.6-10.4 [facility] Comment on above: Performed By: #### 1 0231, 1759 #### [facility] [address] [place] [address] Courtesy Bus Driver: Valencia Palmer #### 7600, 6517 #### [facility] [address], [address] [place] [address] Courtesy Bus Driver: Kody Manriquez MD Chloride [Moles/Vol] 103 mmol/L Normal 98-110 [facility] Comment on above: Performed By: #### 1 230, 175 #### [facility] [facility] [address] Courtesy Bus Driver: Valencia Palmer #### 7600, 6517 #### [facility] [address], [address] [place] [address] Courtesy Bus Driver: Kody Manriquez MD CO2 [Moles/Vol] 16 mmol/L Low 20-32 [facility] Comment on above: Performed By: #### 1 230, 175 #### [facility] [address] Courtesy Bus Driver: Valencia Palmer #### 7600, 6517 #### [facility] [address], [address] [place] [address] Courtesy Bus Driver: Kody Manriquez MD Creatinine [Mass/Vol] 7.02 mg/dL High 0.50-1.[address] [facility] Comment on above: Performed By: #### 1 023, 175 #### [facility] [address] [place] [address] Courtesy Bus Driver: Valencia Palmer #### 7600, 6517 #### [facility] [address], [address] [place] [address] Courtesy Bus Driver: Kody Manriquez MD GFR/1.73 sq M.predicted among non-blacks MDRD (S/P/Bld) [Vol rate/Area] 6 mL/min/{1.73_m2} Low > OR = 60 [facility] Comment on above: Performed By: #### 1 230, 1759 #### [facility] [address] [place] [address] Courtesy Bus Driver: Valencia Palmer #### 7600, 6517 #### [facility] [address], [address] [place] [address] Courtesy Bus Driver: Kody Manriquez MD Globulin (S) [Mass/Vol] 3.2 g/dL Normal 1.9-3.7 Q [facility] Comment on above: Performed By: #### 1 230, 175 #### [facility] [address] [place] [address] Courtesy Bus Driver: Valencia Palmer #### 7600, 6517 #### [facility] [address], [address] [place] [address] Courtesy Bus Driver: Kody Manriquez MD Glucose [Mass/Vol] 119 mg/dL High 65-99 [facility] Comment on above: Result Comment: Fasting reference interval For someone without known diabetes, a glucose value between 100 and 125 mg/dL is consistent with prediabetes and should be confirmed with a follow-up test. Performed By: #### 1 230, 1759 #### [facility] [address] [place] [address] Courtesy Bus Driver: Valencia Palmer #### 7600, 6517 #### [facility] [address], [address] [place] [address] Courtesy Bus Driver: Kody Manrqiuez MD Potassium [Moles/Vol] 5.4 mmol/L High 3.5-5.[address] [facility] Comment on above: Performed By: #### 1 023, 1759 #### [facility] [address] [place], [place] [id number] Courtesy Bus Driver: Valencia Palmer #### 7600, 6517 #### [facility] [address], [address] [place] [address] Courtesy Bus Driver: Kody Manriquez MD Protein [Mass/Vol] 7.0 g/dL Normal 6.1-8.1 [facility] Comment on above: Performed By: #### 1 230, 175 #### [facility] [address] [place], [place] [id number] Courtesy Bus Driver: Valencia Palmer #### 7600, 6517 #### [facility] [address], [address] [place] [address] Courtesy Bus Driver: Kody Manriquez MD Sodium [Moles/Vol] 138 mmol/L Normal 135-146 [facility] Comment on above: Performed By: #### 1 230, 175 #### [facility] [address] [place] [address] Courtesy Bus Driver: Valencia Palmer #### 7600, 6517 #### [facility] [address], [address] [place] [address] Courtesy Bus Driver: Kody Manriquez MD Urea nitrogen [Mass/Vol] 68 mg/dL High 7-25 [facility] Comment on above: Performed By: #### 1 230, 175 #### [facility] [address] [place], [place] [id number] Courtesy Bus Driver: Valencia Palmer #### 7600, 6517 #### [facility] [address], [address] [place] [address] Courtesy Bus Driver: Kody Manriquez MD Urea nitrogen/Creatinine [Mass ratio] 10 mg/mg Normal 6-22 [facility] Comment on above: Performed By: #### 1 230, 1759 #### [facility] [address] [place], [place] [id number] Courtesy Bus Driver: Valencia Palmer #### 7600, 6517 #### [facility] [address] [place] [address], [address] [address] Courtesy Bus Driver: Kody Manriquez MD LIPID PANEL, [facility] 06-27 Cholesterol [Mass/Vol] 204 mg/dL High <200 [facility] Comment on above: Order Comment: FASTI NG:YES FASTING: YES Performed By: #### 1 0231, 1759 #### [facility] [address] [place] [address] Courtesy Bus Driver: Valencia Palmer #### 7600, 6517 #### [facility] [address], [address] [place] [address] Courtesy Bus Driver: Kody Manriquez MD Cholesterol in HDL [Mass/Vol] 45 mg/dL Low > OR = 50 [facility] Comment on above: Order Comment: FASTI NG:YES FASTING: YES Performed By: #### 1 0231, 1759 #### [facility] [address] [place], [place] [id number] Courtesy Bus Driver: Valencia Palmer #### 7600, 6517 #### [facility] [address], [address] [place] [address] Courtesy Bus Driver: Kody Manriquez MD Cholesterol in LDL [Mass/Vol] 130 mg/dL High [facility] Comment on above: Order Comment: FASTI NG:YES FASTING: YES Result Comment: Refe rence range: <100 Desirable range <100 mg/dL for primary prevention; <70 mg/dL for patients with CHD or diabetic patients with > or = 2 CHD risk factors. LDL-C is now calculated using the Dann calculation, which is a validated novel method providing better accuracy than the Friedewald equation in the estimation of LDL-C. Silvio PINZON et al. LILIA. 2013;310(19): 5687-5939 (http://education.[facility]/faq/GNL802) Performed By: #### 1 0231, 1759 #### [facility] [address] [place], [place] [id number] Courtesy Bus Driver: Valencia Palmer #### 7600, 6517 #### [facility] [address], [address] [place] [address] Courtesy Bus Driver: Kody Manriquez MD Cholesterol.total/Bonnie sterol in HDL [Mass ratio] 4.5 {ratio} Normal <5.0 [facility] Comment on above: Order Comment: FASTI NG:YES FASTING: YES Performed By: #### 1 0231, 1759 #### [facility] [address] [place] [address] Courtesy Bus Driver: Valencia Palmer #### 7600, 6517 #### [facility] [address], [address] [place] [address] Courtesy Bus Driver: Kody Manriquez MD NON HDL CHOLESTEROL 159 mg/dL (calc) High <130 [facility] Comment on above: Order Comment: FASTI NG:YES FASTING: YES Result Comment: For patients with diabetes plus 1 major ASCVD risk factor, treating to a non-HDL-C goal of <100 mg/dL (LDL-C of <70 mg/dL) is considered a therapeutic option. Performed By: #### 1 230, 175 #### [facility] [address] [place] [address] Courtesy Bus Driver: Valencia Palmer #### 7600, 6517 #### [facility] [address], [address] [place] [address] Courtesy Bus Driver: Kody Manriquez MD Triglyceride [Mass/Vol] 170 mg/dL High <150 [facility] Comment on above: Order Comment: FASTI NG:YES FASTING: YES Performed By: #### 1 230, 1759 #### [facility] [address] [place] [address] Courtesy Bus Driver: Valencia Palmer #### 7600, 6517 #### [facility] [address], [address] [place] [address] Courtesy Bus Driver: Kody Manriquez MD Laboratory - Hematology and Cell countson 07-13-2025 HbA1c (Bld) [Mass fraction] 4.9 % [facility] No Panel Informationon 07-13 [facility] A1C with Estimated Average G suni 06-16-2025 Glucose [Mass/Vol] 105 mg/dL Normal [facility] Comment on above: Result Comment: PERF ORMED BY:[address] [address] [place], [place] [id number] MEDICAL DIRECTORLANDRY LEE M.D. Performed By: #### A 1C [facility] eA ####[address] [address] [facility] HbA1c (Bld) [Mass fraction] 5.3 % Normal 4.3-5.6 [facility] Comment on above: Result Comment: Incr eased risk for diabetes: 5.7 - 6.4 diabetes: >6.4 glycemic control for adults with diabetes: <7.0 Performed By: #### A 1C [facility] eA ####[address] [address] [facility] Comprehensive Metabolic Pane christiano 06-16-2025 Albumin [Mass/Vol] 3.1 g/dL Low 3.5-5.7 [facility] Comment on above: Performed By: #### M Rand, CMP ####[address] [address] [facility] Albumin/Globulin [Mass ratio] 0.9 {ratio} Normal [facility] Comment on above: Performed By: #### M Rand, CMP ####[address] [address] [facility] ALP [Catalytic activity/Vol] 71 U/L Normal 34-104 [facility] Comment on above: Performed By: #### M Rand, CMP ####[address] [address] [facility] ALT [Catalytic activity/Vol] 7 U/L Normal 7-52 [facility] Comment on above: Performed By: #### M Rand, CMP ####[address] [address] [facility] Anion gap [Moles/Vol] 14.4 mmol/L Normal 6.0-15.0 [facility] Comment on above: Performed By: #### Jeremiah Gordillo, CMP ####[place] [id number] [facility] AST [Catalytic activity/Vol] 12 U/L Low 13-39 [facility] Comment on above: Performed By: #### Jeremiah G, CMP ####[address] [place] [id number] [facility] Bilirubin [Mass/Vol] 0.4 mg/dL Normal 0.3-1.0 [facility] Comment on above: Performed By: #### Jeremiah Gordillo, CMP ####[address] Calcium [Mass/Vol] 8.8 mg/dL Normal 8.6-10.3 [facility] Comment on above: Performed By: #### Jeremiah Gordillo, CMP ####[address] Chloride [Moles/Vol] 98 mmol/L Normal 98-107 [facility] Comment on above: Performed By: #### Jeremiah Gordillo, CMP ####[address] [place] [id number] [facility] CO2 [Moles/Vol] 25.4 mmol/L Normal 21.0-31.0 [facility] Comment on above: Performed By: #### Jeremiah Gordillo, CMP ####[address] [place] [id number] [facility] Creatinine [Mass/Vol] 3.77 mg/dL High 0.60-1.20 [facility] Comment on above: Performed By: #### Jeremiah Gordillo, CMP ####[address] [place] [id number] [facility] Creatinine Clr Calc Pharmacy 15.15 Normal [facility] Comment on above: Performed By: #### Jeremiah Gordillo, CMP ####[address] [place] [id number] [facility] GFR/1.73 sq M.predicted MDRD (S/P/Bld) [Vol rate/Area] 13.618 mL/min/{1.73_m2} Normal [facility] Comment on above: Performed By: #### M G, CMP ####[address] [place] [id number] [facility] Globulin (S) [Mass/Vol] 3.3 g/dL Normal T [facility] Comment on above: Performed By: #### M G, CMP ####[place] [place] [id number] [facility] Glucose [Mass/Vol] 112 mg/dL High 70-100 [facility] Comment on above: Result Comment: [facility] Glucose Reference Range is dependent on time and content of last meal. Glucose of more than 200 mg/dL in a nonstressed, ambulatory subject supports the diagnosis of Diabetes Mellitus. ADA recommended reference range Performed By: #### M G, CMP ####[address] Potassium [Moles/Vol] 4.8 mmol/L Normal 3.5-5.1 [facility] Comment on above: Performed By: #### M G, CMP ####[address] [place] [id number] [facility] Protein [Mass/Vol] 6.4 g/dL Normal 6.4-8.9 [facility] Comment on above: Performed By: #### M G, CMP ####[address] Sodium [Moles/Vol] 133 mmol/L Low 136-145 [facility] Comment on above: Performed By: #### M G, CMP ####[place] [id number] [facility] Urea nitrogen [Mass/Vol] 43 mg/dL High 7-25 [facility] Comment on above: Performed By: #### M G, CMP ####[address] [place] [id number] [facility] Diff and CBCon 06-16-2025 Anisocytosis Ql (Bld) Moderate Normal [facility] Comment on above: Performed By: #### D IFF CBC ####[place] [id number] [place] Basophils/100 WBC (Bld) 1 % Normal 0-2 [facility] Comment on above: Performed By: #### D IFF CBC ####[address] Eosinophils/100 WBC (Bld) 4 % High 1-3 [facility] Comment on above: Performed By: #### D IFF CBC ####[address] Erythrocyte distribution width (RBC) [Ratio] 26.7 % High 11.9-15.3 [facility] Comment on above: Performed By: #### D IFF CBC ####[address] Hematocrit (Bld) [Volume fraction] 29.2 % Low 34.0-46.4 [facility] Comment on above: Performed By: #### D IFF CBC ####[address] Hemoglobin (Bld) [Mass/Vol] 9.2 g/dL Low 11.8-15.4 [facility] Comment on above: Performed By: #### D IFF CBC ####[address] Hypochromasia Slight Normal [facility] Comment on above: Performed By: #### D IFF CBC ####[address] Lymphocytes/100 WBC (Bld) 22 % Normal 18-42 [facility] Comment on above: Performed By: #### D IFF CBC ####[address] MCH (RBC) [Entitic mass] 24.0 pg Low 24.7-34.3 [facility] Comment on above: Performed By: #### D IFF CBC ####[address] MCV (RBC) [Entitic vol] 75.8 fL Low 80-100 [facility] Comment on above: Performed By: #### D IFF CBC ####[address] [address] [facility] Mean Corpuscular HGB Conc 31.7 g/dL Low 32.0-35.0 [facility] Comment on above: Performed By: #### D IFF CBC ####[address] [address] [facility] Metamyelocytes 1 % High 0-0 [facility] Comment on above: Performed By: #### D IFF CBC ####[address] [address] [facility] Microcytosis Moderate Normal [facility] Comment on above: Performed By: #### D IFF CBC ####[place] [id number] [facility] Monocytes/100 WBC (Bld) 2 % Normal 2-11 [facility] Comment on above: Performed By: #### D IFF CBC ####[address] [address] [facility] Platelet Estimate Normal Normal Normal [facility] Comment on above: Performed By: #### D IFF CBC ####[place] [id number] [facility] Platelet mean volume (Bld) [Entitic vol] 8.0 fL Normal 6.3-10.7 [facility] Comment on above: Performed By: #### D IFF CBC ####[address] [address] [facility] Platelet Morphology Normal Normal Normal [facility] Comment on above: Result Comment: PERF ORMED BY:[address] [place], [place] [id number] MEDICAL TONYA LEE M.D. Performed By: #### D IFF CBC ####[address] [address] [facility] Platelets (Bld) [#/Vol] 201 10*3/uL Normal 150-450 [facility] Comment on above: Performed By: #### D IFF CBC ####[place] [id number] [facility] Polychromasia Slight Normal [facility] Comment on above: Performed By: #### D IFF CBC ####[place] [id number] [facility] Promyelocytes 1 % High 0-0 [facility] Comment on above: Performed By: #### D IFF CBC ####[place] [id number] [facility] RBC (Bld) [#/Vol] 3.85 10*6/uL Normal 3.60-5.00 [facility] Comment on above: Performed By: #### D IFF CBC ####[address] Segmented neutrophils/100 WBC (Bld) 70 % Normal 50-70 [facility] Comment on above: Performed By: #### D IFF CBC ####[address] WBC (Bld) [#/Vol] 9.7 10*3/uL Normal 3.8-11.6 [facility] Comment on above: Performed By: #### D IFF CBC ####[address] White Blood Count 9.7 [CFU]/mL Normal 3.8-11.6 [facility] Comment on above: Performed By: #### D IFF CBC ####[place] [id number] [facility] Glucose Poct Glucometerson 0 06-16-2025 Glucose [Mass/Vol] 113 mg/dL Normal [facility] Comment on above: Result Comment: [facility] Glucose Reference Range is dependent on time and content of last meal. Glucose of more than 200 mg/dL in a nonstressed, ambulatory subject supports the diagnosis of Diabetes Mellitus.PERFORMED BY:[address] [place], [place] [id number] MEDICAL DIRECTORLANDRY LEE M.D. Performed By: #### G LULS ####Point of Care testing, Magnesiumon 06-16-2025 Magnesium [Mass/Vol] 1.8 mg/dL Low 1.9-2.7 [facility] Comment on above: Result Comment: PERF ORMED BY:[address] [place], [place] [phone] MEDICAL DIRECTORLANDRY LEE M.D. Performed By: #### M G, CMP ####[address] [address] [facility] Comprehensive Metabolic Pane christiano 06-15-2025 Albumin [Mass/Vol] 3.4 g/dL Low 3.5-5.7 [facility] Comment on above: Order Comment: PT IN DIALYSIS, RN TO CALL WHEN SHE GETS BACK AROUND 1829,KAH Performed By: #### C MP, SCAN CBC ####[address] [address] [facility] Albumin/Globulin [Mass ratio] 1.0 {ratio} Normal [facility] Comment on above: Order Comment: PT IN DIALYSIS, RN TO CALL WHEN SHE GETS BACK AROUND 183,KAH Performed By: #### C MP, SCAN CBC ####[address] [address] [facility] ALP [Catalytic activity/Vol] 75 U/L Normal 34-104 [facility] Comment on above: Order Comment: PT IN DIALYSIS, RN TO CALL WHEN SHE GETS BACK AROUND 183,KAH Performed By: #### C MP, SCAN CBC ####[address] [address] [facility] ALT [Catalytic activity/Vol] 5 U/L Low 7-52 [facility] Comment on above: Order Comment: PT IN DIALYSIS, RN TO CALL WHEN SHE GETS BACK AROUND 183,KAH Performed By: #### C MP, SCAN CBC ####[address] [address] [facility] Anion gap [Moles/Vol] 13.6 mmol/L Normal 6.0-15.0 [facility] Comment on above: Order Comment: PT IN DIALYSIS, RN TO CALL WHEN SHE GETS BACK AROUND 1830,KAH Performed By: #### C MP, SCAN CBC ####[address] [address] [facility] AST [Catalytic activity/Vol] 17 U/L Normal 13-39 [facility] Comment on above: Order Comment: PT IN DIALYSIS, RN TO CALL WHEN SHE GETS BACK AROUND 1829,KAH Performed By: #### C MP, SCAN CBC ####[address] [address] [facility] Bilirubin [Mass/Vol] 0.4 mg/dL Normal 0.3-1.0 [facility] Comment on above: Order Comment: PT IN DIALYSIS, RN TO CALL WHEN SHE GETS BACK AROUND 1829,KAH Performed By: #### C MP, SCAN CBC ####[address] [address] [facility] Calcium [Mass/Vol] 8.7 mg/dL Normal 8.6-10.3 [facility] Comment on above: Order Comment: PT IN DIALYSIS, RN TO CALL WHEN SHE GETS BACK AROUND 1829,KAH Performed By: #### C MP, SCAN CBC ####[address] [address] [place] Chloride [Moles/Vol] 100 mmol/L Normal 98-107 [facility] Comment on above: Order Comment: PT IN DIALYSIS, RN TO CALL WHEN SHE GETS BACK AROUND 1829,KAH Performed By: #### C MP, SCAN CBC ####[address] [address] [place] CO2 [Moles/Vol] 24.1 mmol/L Normal 21.0-31.0 [facility] Comment on above: Order Comment: PT IN DIALYSIS, RN TO CALL WHEN SHE GETS BACK AROUND 1829,KAH Performed By: #### C MP, SCAN CBC ####[address] [address] [place] Creatinine [Mass/Vol] 2.68 mg/dL High 0.60-1.20 [facility] Comment on above: Order Comment: PT IN DIALYSIS, RN TO CALL WHEN SHE GETS BACK AROUND 1829,KAH Performed By: #### C MP, SCAN CBC ####[facility] [place] [address] [facility] Creatinine Clr Calc Pharmacy 21.31 Normal [facility] Comment on above: Order Comment: PT IN DIALYSIS, RN TO CALL WHEN SHE GETS BACK AROUND Result Comment: PERF ORMED BY:[address] [place], [place] [phone] MEDICAL DIRECTORLANDRY LEE M.D. Performed By: #### C MP, SCAN CBC ####[place] [id number] [facility] GFR/1.73 sq M.predicted MDRD (S/P/Bld) [Vol rate/Area] 20.510 mL/min/{1.73_m2} Normal [facility] Comment on above: Order Comment: PT IN DIALYSIS, RN TO CALL WHEN SHE GETS BACK AROUND Performed By: #### C MP, SCAN CBC ####[place] [id number] [facility] Globulin (S) [Mass/Vol] 3.4 g/dL Normal T [facility] Comment on above: Order Comment: PT IN DIALYSIS, RN TO CALL WHEN SHE GETS BACK AROUND Performed By: #### C MP, SCAN CBC ####[address] [place] [id number] [facility] Glucose [Mass/Vol] 135 mg/dL High 70-100 [facility] Comment on above: Order Comment: PT IN DIALYSIS, RN TO CALL WHEN SHE GETS BACK AROUND Result Comment: [facility] Glucose Reference Range is dependent on time and content of last meal. Glucose of more than 200 mg/dL in a nonstressed, ambulatory subject supports the diagnosis of Diabetes Mellitus. ADA recommended reference range Performed By: #### C MP, SCAN CBC ####[place] [id number] [facility] Potassium [Moles/Vol] 4.7 mmol/L Abnormal 3.5-5.1 [facility] Comment on above: Order Comment: PT IN DIALYSIS, RN TO CALL WHEN SHE GETS BACK AROUND Result Comment: inte rfere with the result.Contact lab if redraw is required Performed By: #### C MP, SCAN CBC ####[address] [address] [facility] Protein [Mass/Vol] 6.8 g/dL Normal 6.4-8.9 [facility] Comment on above: Order Comment: PT IN DIALYSIS, RN TO CALL WHEN SHE GETS BACK AROUND 183,KAH Performed By: #### C MP, SCAN CBC ####[place] [address] [place] [id number] [facility] Sodium [Moles/Vol] 133 mmol/L Low 136-145 [facility] Comment on above: Order Comment: PT IN DIALYSIS, RN TO CALL WHEN SHE GETS BACK AROUND 183,KAH Performed By: #### C MP, SCAN CBC ####[place] [place] [id number] [facility] Urea nitrogen [Mass/Vol] 33 mg/dL High 7-25 [facility] Comment on above: Order Comment: PT IN DIALYSIS, RN TO CALL WHEN SHE GETS BACK AROUND 183,KAH Performed By: #### C MP, SCAN CBC ####[place] [id number] [facility] Glucose Poct Glucometerson 0 06-15-2025 Glucose [Mass/Vol] 173 mg/dL Normal [facility] Comment on above: Result Comment: [facility] Glucose Reference Range is dependent on time and content of last meal. Glucose of more than 200 mg/dL in a nonstressed, ambulatory subject supports the diagnosis of Diabetes Mellitus.PERFORMED BY:[address] [address] [place] [place], [place] [phone] MEDICAL TONYA LEE M.D. Performed By: #### G LULS ####Point of Care testing, Commemt1 Glu2: Cleaned Meter Normal [facility] Comment on above: Result Comment: PERF ORMED BY:[address] [address] [address] [place], [place] [phone] MEDICAL TONYA LEE M.D. Performed By: #### G LULS ####Point of Care testing, Glucose [Mass/Vol] 117 mg/dL Normal [facility] Comment on above: Result Comment: [facility] Glucose Reference Range is dependent on time and content of last meal. Glucose of more than 200 mg/dL in a nonstressed, ambulatory subject supports the diagnosis of Diabetes Mellitus. Performed By: #### G LUMAYELIN ####Point of Care testing, Hemoglobin and Hematocriton 06-15-2025 Hematocrit (Bld) [Volume fraction] 32.3 % Low 34.0-46.4 [facility] Comment on above: Result Comment: PERF ORMED BY:[address] [place], [place] [phone] MEDICAL TONYA LEE M.D. Performed By: #### K , HH ####[address] [place] [address] [facility] Hemoglobin (Bld) [Mass/Vol] 10.1 g/dL Low 11.8-15.4 [facility] Comment on above: Performed By: #### K , HH ####[address] [address] [facility] Potassiumon 06-15-2025 Potassium [Moles/Vol] 6.2 mmol/L Off scale high 3.5-5.1 [facility] Comment on above: Result Comment: Crit ical Result Called to and read back by: ASHISH WILEY at: 06/15/2025 12:32:53 by:RGPERFORMED BY:[address] [place], [place] [phone] MEDICAL TONYA LEE M.D. Performed By: #### K , HH ####[address] [address] [facility] Scan and CBCon 06-15-2025 Anisocytosis Ql (Bld) Marked Normal [facility] Comment on above: Order Comment: PT IN DIALYSIS, RN TO CALL WHEN SHE GETS BACK AROUND 1830,KAH Performed By: #### C MP, SCAN CBC ####[id number] [facility] Basophils (Bld) [#/Vol] 0.2 10*3/uL Normal 0.0-0.2 [facility] Comment on above: Order Comment: PT IN DIALYSIS, RN TO CALL WHEN SHE GETS BACK AROUND 1829,KAH Performed By: #### C MP, SCAN CBC ####[address] [place] [address] [facility] Basophils/100 WBC (Bld) 1.4 % Normal . [facility] Comment on above: Order Comment: PT IN DIALYSIS, RN TO CALL WHEN SHE GETS BACK AROUND 1829,KAH Performed By: #### C MP, SCAN CBC ####[address] [address] [facility] Eosinophils (Bld) [#/Vol] 0.5 10*3/uL High 0.0-0.45 [facility] Comment on above: Order Comment: PT IN DIALYSIS, RN TO CALL WHEN SHE GETS BACK AROUND 1829,KAH Performed By: #### C MP, SCAN CBC ####[id number] [facility] Eosinophils/100 WBC (Bld) 3.1 % Normal . [facility] Comment on above: Order Comment: PT IN DIALYSIS, RN TO CALL WHEN SHE GETS BACK AROUND 1829,KAH Performed By: #### C MP, SCAN CBC ####[id number] [facility] Erythrocyte distribution width (RBC) [Ratio] 25.6 % High 11.9-15.3 [facility] Comment on above: Order Comment: PT IN DIALYSIS, RN TO CALL WHEN SHE GETS BACK AROUND 1829,KAH Performed By: #### C MP, SCAN CBC ####[id number] [facility] Hematocrit (Bld) [Volume fraction] 31.2 % Low 34.0-46.4 [facility] Comment on above: Order Comment: PT IN DIALYSIS, RN TO CALL WHEN SHE GETS BACK AROUND 1829,KAH Performed By: #### C MP, SCAN CBC ####[id number] [facility] Hemoglobin (Bld) [Mass/Vol] 9.6 g/dL Low 11.8-15.4 [facility] Comment on above: Order Comment: PT IN DIALYSIS, RN TO CALL WHEN SHE GETS BACK AROUND 1829,KAH Performed By: #### C MP, SCAN CBC ####[address] Hypochromasia Moderate Normal [facility] Comment on above: Order Comment: PT IN DIALYSIS, RN TO CALL WHEN SHE GETS BACK AROUND 1829,KAH Performed By: #### C MP, SCAN CBC ####[address] Lymphocytes (Bld) [#/Vol] 1.8 10*3/uL Normal 1.00-4.8 [facility] Comment on above: Order Comment: PT IN DIALYSIS, RN TO CALL WHEN SHE GETS BACK AROUND 1829,KAH Performed By: #### C MP, SCAN CBC ####[address] Lymphocytes/100 WBC (Bld) 10.1 % Normal . [facility] Comment on above: Order Comment: PT IN DIALYSIS, RN TO CALL WHEN SHE GETS BACK AROUND 1829,KAH Performed By: #### C MP, SCAN CBC ####[id number] [facility] MCH (RBC) [Entitic mass] 23.7 pg Low 24.7-34.3 [facility] Comment on above: Order Comment: PT IN DIALYSIS, RN TO CALL WHEN SHE GETS BACK AROUND 1829,KAH Performed By: #### C MP, SCAN CBC ####[id number] [facility] MCV (RBC) [Entitic vol] 77.0 fL Low 80-100 [facility] Comment on above: Order Comment: PT IN DIALYSIS, RN TO CALL WHEN SHE GETS BACK AROUND 1829,KAH Performed By: #### C MP, SCAN CBC ####[id number] [facility] Mean Corpuscular HGB Conc 30.8 g/dL Low 32.0-35.0 [facility] Comment on above: Order Comment: PT IN DIALYSIS, RN TO CALL WHEN SHE GETS BACK AROUND 183,KAH Performed By: #### C MP, SCAN CBC ####[address] [address] [facility] Microcytosis Moderate Normal [facility] Comment on above: Order Comment: PT IN DIALYSIS, RN TO CALL WHEN SHE GETS BACK AROUND 183,KAH Performed By: #### C MP, SCAN CBC ####[address] [address] [facility] Monocytes (Bld) [#/Vol] 1.2 10*3/uL High 0.0-0.8 [facility] Comment on above: Order Comment: PT IN DIALYSIS, RN TO CALL WHEN SHE GETS BACK AROUND 183,KAH Performed By: #### C MP, SCAN CBC ####[address] [address] [facility] Monocytes/100 WBC (Bld) 6.8 % Normal . [facility] Comment on above: Order Comment: PT IN DIALYSIS, RN TO CALL WHEN SHE GETS BACK AROUND 1829,KAH Performed By: #### C MP, SCAN CBC ####[id number] [place] Neutrophils (Bld) [#/Vol] 13.6 10*3/uL High 1.8-7.7 [facility] Comment on above: Order Comment: PT IN DIALYSIS, RN TO CALL WHEN SHE GETS BACK AROUND 1829,KAH Performed By: #### C MP, SCAN CBC ####[id number] [facility] Neutrophils/100 WBC (Bld) 78.6 % Normal . [facility] Comment on above: Order Comment: PT IN DIALYSIS, RN TO CALL WHEN SHE GETS BACK AROUND 183,KAH Performed By: #### C MP, SCAN CBC ####[id number] [facility] NRBC% 0.0 /100{WBC} Normal 0-0.5 [facility] Comment on above: Order Comment: PT IN DIALYSIS, RN TO CALL WHEN SHE GETS BACK AROUND 183,KAH Performed By: #### C MP, SCAN CBC ####[address] [address] [facility] Platelet Estimate Normal Normal Normal [facility] Comment on above: Order Comment: PT IN DIALYSIS, RN TO CALL WHEN SHE GETS BACK AROUND 183,KAH Performed By: #### C MP, SCAN CBC ####[address] [address] [facility] Platelet mean volume (Bld) [Entitic vol] 8.4 fL Normal 6.3-10.7 [facility] Comment on above: Order Comment: PT IN DIALYSIS, RN TO CALL WHEN SHE GETS BACK AROUND 1829,KAH Performed By: #### C MP, SCAN CBC ####[address] [address] [facility] Platelet Morphology Normal Normal Normal [facility] Comment on above: Order Comment: PT IN DIALYSIS, RN TO CALL WHEN SHE GETS BACK AROUND 1829,KAH Result Comment: PERF ORMED BY:[address] [place], [place] [phone] MEDICAL TONYA LEE M.D. Performed By: #### C MP, SCAN CBC ####[address] [address] [facility] Platelets (Bld) [#/Vol] 194 10*3/uL Normal 150-450 [facility] Comment on above: Order Comment: PT IN DIALYSIS, RN TO CALL WHEN SHE GETS BACK AROUND 1829,KAH Performed By: #### C MP, SCAN CBC ####[address] [address] [facility] Poikilocytosis Slight Normal [facility] Comment on above: Order Comment: PT IN DIALYSIS, RN TO CALL WHEN SHE GETS BACK AROUND 1829,KAH Performed By: #### C MP, SCAN CBC ####[address] [address] [facility] Polychromasia Slight Normal [facility] Comment on above: Order Comment: PT IN DIALYSIS, RN TO CALL WHEN SHE GETS BACK AROUND 1829,KAH Performed By: #### C MP, SCAN CBC ####[address] [address] [facility] RBC (Bld) [#/Vol] 4.05 10*6/uL Normal 3.60-5.00 [facility] Comment on above: Order Comment: PT IN DIALYSIS, RN TO CALL WHEN SHE GETS BACK AROUND 1830,KAH Performed By: #### C MP, SCAN CBC ####[address] [address] [facility] Stomatocytes Slight Normal [facility] Comment on above: Order Comment: PT IN DIALYSIS, RN TO CALL WHEN SHE GETS BACK AROUND 1830,KAH Performed By: #### C MP, SCAN CBC ####[id number] [facility] WBC (Bld) [#/Vol] 17.4 10*3/uL High 3.8-11.6 [facility] Comment on above: Order Comment: PT IN DIALYSIS, RN TO CALL WHEN SHE GETS BACK AROUND 183,KAH Performed By: #### C MP, SCAN CBC ####[id number] [facility] White Blood Count 17.4 [CFU]/mL High 3.8-11.6 [facility] Comment on above: Order Comment: PT IN DIALYSIS, RN TO CALL WHEN SHE GETS BACK AROUND 183,KAH Performed By: #### C MP, SCAN CBC ####[address] [address] [facility] Basic Metabolic Panelon 08- Creatinine Clr Calc Pharmacy 18.45 Normal [facility] Comment on above: Result Comment: PERF ORMED BY:[address] [place], [place] [phone] MEDICAL TONYA LEE M.D. Performed By: #### B MP ####[id number] [facility] GFR/1.73 sq M.predicted MDRD (S/P/Bld) [Vol rate/Area] 16.517 mL/min/{1.73_m2} Normal [facility] Comment on above: Performed By: #### B MP ####[facility] [place] [address] [facility] Basic metabolic 1998 panelon 06-06-2025 Anion gap [Moles/Vol] 13.1 mmol/L 6.0 - 15.0 [facility] Calcium [Mass/Vol] 8.8 mg/dL 8.6 - 10. 3 mg/dL [facility] Chloride [Moles/Vol] 98 mmol/L 98 - 10 7 mmol/L [facility] CO2 [Moles/Vol] 28.4 mmol/L 21.0 - 31.0 mmol/L [facility] Creatinine (U) [Mass/Vol] 3.21 mg/dL High 0.60 - 1.20 mg/dL [facility] CREATININE CLR CALC PHARMACY 18.45 [facility] GFR/1.73 sq M.predicted MDRD (S/P/Bld) [Vol rate/Area] 16.517 mL/min/{1.73_m2} [facility] Glucose [Mass/Vol] 111 mg/dL High 70 - 100 mg/dL [facility] Comment on above: Random Glucose Refer ence Range is dependent on time and content of last meal. Glucose of more than 200 mg/dL in a nonstressed, ambulatory subject supports the diagnosis of Diabetes Mellitus. ADA recommended reference range Interpretation and review of laboratory results Abnormal [facility] Potassium [Moles/Vol] 4.5 mmol/L 3.5 - 5.1 mmol/L [facility] Sodium [Moles/Vol] 135 mmol/L Low 136 - 145 mmol/L [facility] Urea nitrogen [Mass/Vol] 45 mg/dL High 7 - 25 mg/dL [facility] Basophils [#/volume] in Bloo d by Automated countOrdered By: Jey Arizmendi on 06-06-2025 Basophils (Bld) [#/Vol] 0.1 10*3/uL 0.0-0.2 [facility] Comment on above: Result Comment: PERF ORMED BY:[facility] [place], [place] [phone] MEDICAL TONYA LEE M.D. Performed By: #### C BC ####[address] [place] [address] [facility] Basophils/100 leukocytes in Blood by Automated countOrdered By: Jey Arizmendi on 06-06-2025 Basophils/100 WBC (Bld) 1.0 % . [facility] Comment on above: Performed By: #### C BC ####[facility] [place] [address] [facility] Calcium [Mass/volume] in Ser um or PlasmaOrdered By: Juan Carlos Chavez on 06-06-2025 Calcium [Mass/Vol] 8.8 mg/dL 8.6-10.3 [facility] Comment on above: Performed By: #### B MP ####[address] [place] [address] [facility] Capillary blood glucose magy urement by glucometer (mass/volume)Ordered By: Juan Carlos Chavez on 06-06-2025 Glucose [Mass/Vol] 99 mg/dL [facility] Comment on above: Random Glucose Refer ence Range is dependent on time and content of last meal. Glucose of more than 200 mg/dL in a nonstressed, ambulatory subject supports the diagnosis of Diabetes Mellitus. Result Comment: [facility] Glucose Reference Range is dependent on time and content of last meal. Glucose of more than 200 mg/dL in a nonstressed, ambulatory subject supports the diagnosis of Diabetes Mellitus. Performed By: #### G SOLO ####Point of Care testing, Carbon dioxide, total [Moles /volume] in Serum or PlasmaOrdered By: Juan Carlos Chavez on 06-06-2025 CO2 [Moles/Vol] 28.4 mmol/L 21.0-31.0 [facility] Comment on above: Performed By: #### B MP ####[facility] [place] [address] [place] Chloride [Moles/volume] in S augustin or PlasmaOrdered By: Juan Carlos Chavez on 06-06-2025 Chloride [Moles/Vol] 98 mmol/L 98-107 [facility] Comment on above: Performed By: #### B MP ####[address] [place] [id number] [facility] Complete Blood Count Auto Di ffon 06-06-2025 Mean Corpuscular HGB Conc 30.2 g/dL Low 32.0-35.0 [facility] Comment on above: Performed By: #### C BC ####[address] NRBC% 0.1 /100{WBC} Normal 0-0.5 [facility] Comment on above: Performed By: #### C BC ####[address] White Blood Count 13.7 [CFU]/mL High 3.8-11.6 [facility] Comment on above: Performed By: #### C BC ####[address] Creatinine [Mass/volume] in Serum or PlasmaOrdered By: Juan Carlos Chavez on 06-06-2025 Creatinine [Mass/Vol] 3.21 mg/dL High 0.60-1.20 [facility] Comment on above: Performed By: #### B MP ####[address] Eosinophils [#/volume] in Bl ood by Automated countOrdered By: Jey Arizmendi on 06-06-2025 Eosinophils (Bld) [#/Vol] 0.7 10*3/uL High 0.0-0.45 [facility] Comment on above: Performed By: #### C BC ####[address] Eosinophils/100 leukocytes i n Blood by Automated countOrdered By: Jey Arizmendi on 06-06-2025 Eosinophils/100 WBC (Bld) 4.8 % . [facility] Comment on above: Performed By: #### C BC ####[address] Erythrocyte distribution wid th [Ratio] by Automated countOrdered By: Jey Arizmendi on 06-06-2025 Erythrocyte distribution width (RBC) [Ratio] 22.3 % High 11.9-15.3 [facility] Comment on above: Performed By: #### C BC ####[facility] [place] [address] [facility] Erythrocytes [#/volume] in B lood by Automated countOrdered By: Jey Arizmendi on 06-06-2025 RBC (Bld) [#/Vol] 3.78 10*6/uL 3.60-5.00 [facility] Comment on above: Performed By: #### C BC ####[facility] [place] [address] [facility] GLUCOSE POCT GLUCOMETERSon 0 06-06-2025 COMMEMT1 Glu2: Cleaned Meter [facility] Glucose [Mass/Vol] 99 mg/dL [facility] Comment on above: Random Glucose Refer ence Range is dependent on time and content of last meal. Glucose of more than 200 mg/dL in a nonstressed, ambulatory subject supports the diagnosis of Diabetes Mellitus. Glucose Poct Glucometerson 0 06-06-2025 Commemt1 Glu2: Cleaned Meter Normal [facility] Comment on above: Result Comment: PERF ORMED BY:[address] [place], [place] [phone] MEDICAL TONYA LEE M.D. Performed By: #### G SOLO ####Point of Care testing, Glucose [Mass/Vol] 121 mg/dL Normal [facility] Comment on above: Random Glucose Refer ence Range is dependent on time and content of last meal. Glucose of more than 200 mg/dL in a nonstressed, ambulatory subject supports the diagnosis of Diabetes Mellitus. Result Comment: [facility] Glucose Reference Range is dependent on time and content of last meal. Glucose of more than 200 mg/dL in a nonstressed, ambulatory subject supports the diagnosis of Diabetes Mellitus.PERFORMED BY:[address] [place], [place] [phone] MEDICAL TONYA LEE M.D. Performed By: #### G LULS ####Point of Care testing, Glucose [Mass/volume] in Ser um or PlasmaOrdered By: Juan Carlos Chavez on 06-06-2025 Glucose [Mass/Vol] 111 mg/dL High 70-100 [facility] Comment on above: ADA recommended refe rence rangeRandom Glucose Reference Range is dependent on time and content of last meal. Glucose of more than 200 mg/dL in a nonstressed, ambulatory subject supports the diagnosis of Diabetes Mellitus. Result Comment: [facility] Glucose Reference Range is dependent on time and content of last meal. Glucose of more than 200 mg/dL in a nonstressed, ambulatory subject supports the diagnosis of Diabetes Mellitus. ADA recommended reference range Performed By: #### B MP ####[address] Hematocrit [Volume Fraction] of Blood by Automated countOrdered By: Jey Arizmendi on 06-06-2025 Hematocrit (Bld) [Volume fraction] 27.6 % Low 34.0-46.4 [facility] Comment on above: Performed By: #### C BC ####[address] Hemoglobin [Mass/volume] in BloodOrdered By: Jey Arizmendi on 06-06-2025 Hemoglobin (Bld) [Mass/Vol] 8.3 g/dL Low 11.8-15.4 [facility] Comment on above: Performed By: #### C BC ####[address] Christiano 06-06-2025 L Normal [facility] Leukocytes [#/volume] correc alyssa for nucleated erythrocytes in Blood by Automated counOrdered By: Jey Arizmendi on 06-06-2025 WBC corrected for nucl RBC Auto (Bld) [#/Vol] 13.7 10*3/uL High 3.8-11.6 [facility] Leukocytes [#/volume] in Blo od by Automated countOrdered By: Jey Arizmendi on 06-06-2025 WBC (Bld) [#/Vol] 13.7 10*3/uL High 3.8-11.6 [facility] Comment on above: Performed By: #### C BC ####[address] Lymphocytes [#/volume] in Bl ood by Automated countOrdered By: Jey Arizmendi on 06-06-2025 Lymphocytes (Bld) [#/Vol] 2.6 10*3/uL 1.00-4.8 [facility] Comment on above: Performed By: #### C BC ####[address] Lymphocytes/100 leukocytes i n Blood by Automated countOrdered By: Jey Arizmendi on 06-06-2025 Lymphocytes/100 WBC (Bld) 18.8 % . [facility] Comment on above: Performed By: #### C BC ####[address] MCH [Entitic mass] by Automa alyssa countOrdered By: Jey Arizmendi on 06-06-2025 MCH (RBC) [Entitic mass] 22.1 pg Low 24.7-34.3 [facility] Comment on above: Performed By: #### C BC ####[address] MCHC Auto (RBC) [Mass/Vol]Or dered By: Jey Arizmendi on 06-06-2025 MCHC (RBC) [Mass/Vol] 30.2 g/dL Low 32.0-35.0 [facility] MCV [Entitic volume] by Auto mated countOrdered By: Jey Arizmendi on 06-06-2025 MCV (RBC) [Entitic vol] 73.1 fL Low 80-100 [facility] Comment on above: Performed By: #### C BC ####[address] Monocytes [#/volume] in Bloo d by Automated countOrdered By: Jey Arizmendi on 06-06-2025 Monocytes (Bld) [#/Vol] 1.3 10*3/uL High 0.0-0.8 [facility] Comment on above: Performed By: #### C BC ####[address] Monocytes/100 leukocytes in Blood by Automated countOrdered By: Jey Arizmendi on 06-06-2025 Monocytes/100 WBC (Bld) 9.4 % . [facility] Comment on above: Performed By: #### C BC ####[place] [id number] [facility] Neutrophils [#/volume] in Bl ood by Automated countOrdered By: Jey Arizmendi on 06-06-2025 Neutrophils (Bld) [#/Vol] 9.0 10*3/uL High 1.8-7.7 [facility] Comment on above: Performed By: #### C BC ####[place] [id number] [facility] Neutrophils/100 leukocytes i n Blood by Automated countOrdered By: Jey Arizmendi on 06-06-2025 Neutrophils/100 WBC (Bld) 66.0 % . [facility] Comment on above: Performed By: #### C BC ####[place] [id number] [facility] No Panel InformationOrdered By: Juan Carlos Chavez on 06-06-2025 Bedside Glucose Comment Glu2: cleaned meter [facility] Estimated GFR (CKD-EPI) 16.517 mL/Min [facility] Creatinine Clearance (Chem 18.45 [facility] No Panel Informationon 06-06 [facility] Nucleated erythrocytes [Pres ence] in Blood by Automated countOrdered By: Jey Arizmendi on 06-06-2025 Nucleated RBC Auto Ql (Bld) 0.1 /100{WBC} 0-0.5 [facility] Platelet mean volume [Entiti c volume] in Blood by Automated countOrdered By: Jey Arizmendi on 06-06-2025 Platelet mean volume (Bld) [Entitic vol] 7.5 fL 6.3-10.7 [facility] Comment on above: Performed By: #### C BC ####[place] [id number] [facility] Platelets [#/volume] in Bloo d by Automated countOrdered By: Jey Arizmendi on 06-06-2025 Platelets (Bld) [#/Vol] 306 10*3/uL 150-450 [facility] Comment on above: Performed By: #### C BC ####[address] [place] [address] [facility] Potassium [Moles/volume] in Serum or PlasmaOrdered By: Juan Carlos Chavez on 06-06-2025 Potassium [Moles/Vol] 4.5 mmol/L 3.5-5.1 [facility] Comment on above: Performed By: #### B MP ####[place] [id number] [facility] Serum or plasma anion gap de terminationOrdered By: Juan Carlos Chavez on 06-06-2025 Anion gap [Moles/Vol] 13.1 mmol/L 6.0-15.0 [facility] Comment on above: Performed By: #### B MP ####[place] [id number] [facility] Sodium [Moles/volume] in Ser um or PlasmaOrdered By: Juan Carlos Chavez on 06-06-2025 Sodium [Moles/Vol] 135 mmol/L Low 136-145 [facility] Comment on above: Performed By: #### B MP ####[place] [id number] [facility] Urea nitrogen [Mass/volume] in Serum or PlasmaOrdered By: Juan Carlos Chavez on 06-06-2025 Urea nitrogen [Mass/Vol] 45 mg/dL High 7-25 [facility] Comment on above: Performed By: #### B MP ####[place] [id number] [facility] PATHOLOGY REQUEST FOR LAB CO RPon 05-19-2025 PATHOLOGY REQUEST FOR LAB [facility] Comment on above: See report. Scanned copy available in EMR. FRESH SKIN- ABDOMEN [facility] [place] Diff and CBCon 05-17-2025 Anisocytosis Ql (Bld) Moderate Normal [facility] Comment on above: Order Comment: left tubes and labels with salty bronson she will pass on to day shift Performed By: #### D IFF CBC ####[place] [id number] [facility] Basophils/100 WBC (Bld) 2 % Normal 0-2 [facility] Comment on above: Order Comment: left tubes and labels with rn audie she will pass on to day shift Performed By: #### D IFF CBC ####[place] [id number] [facility] Eosinophils/100 WBC (Bld) 2 % Normal 1-3 [facility] Comment on above: Order Comment: left tubes and labels with rn audie she will pass on to day shift Performed By: #### D IFF CBC ####[address] Erythrocyte distribution width (RBC) [Ratio] 21.7 % High 11.9-15.3 [facility] Comment on above: Order Comment: left tubes and labels with salty bronson she will pass on to day shift Performed By: #### D IFF CBC ####[address] Giant Platelet Tally 1 /100{WBC} Normal [facility] Comment on above: Order Comment: left tubes and labels with salty bronson she will pass on to day shift Performed By: #### D IFF CBC ####[address] Hematocrit (Bld) [Volume fraction] 26.6 % Low 34.0-46.4 [facility] Comment on above: Order Comment: left tubes and labels with salty bronson she will pass on to day shift Performed By: #### D IFF CBC ####[place] [id number] [facility] Hemoglobin (Bld) [Mass/Vol] 8.1 g/dL Low 11.8-15.4 [facility] Comment on above: Order Comment: left tubes and labels with rn audie she will pass on to day shift Performed By: #### D IFF CBC ####[place] [id number] [facility] Hypochromasia Slight Normal [facility] Comment on above: Order Comment: left tubes and labels with rn audie she will pass on to day shift Performed By: #### D IFF CBC ####[place] [id number] [place] [id number] [facility] Lymphocytes/100 WBC (Bld) 11 % Low 18-42 [facility] Comment on above: Order Comment: left tubes and labels with rn audie she will pass on to day shift Performed By: #### D IFF CBC ####[place] [id number] [facility] MCH (RBC) [Entitic mass] 22.9 pg Low 24.7-34.3 [facility] Comment on above: Order Comment: left tubes and labels with salty bronson she will pass on to day shift Performed By: #### D IFF CBC ####[place] [id number] [facility] MCV (RBC) [Entitic vol] 75.3 fL Low 80-100 [facility] Comment on above: Order Comment: left tubes and labels with salty bronson she will pass on to day shift Performed By: #### D IFF CBC ####[place] [id number] [facility] Mean Corpuscular HGB Conc 30.4 g/dL Low 32.0-35.0 [facility] Comment on above: Order Comment: left tubes and labels with salty bronson she will pass on to day shift Performed By: #### D IFF CBC ####[place] [id number] [facility] Microcytosis Slight Normal [facility] Comment on above: Order Comment: left tubes and labels with salty bronson she will pass on to day shift Performed By: #### D IFF CBC ####[place] [id number] [facility] Monocytes/100 WBC (Bld) 2 % Normal 2-11 [facility] Comment on above: Order Comment: left tubes and labels with salty bronson she will pass on to day shift Performed By: #### D IFF CBC ####[place] [id number] [facility] Myelocytes 4 % High 0-0 [facility] Comment on above: Order Comment: left tubes and labels with rn audie she will pass on to day shift Performed By: #### D IFF CBC ####[address] [address] [facility] Platelet Estimate Normal Normal Normal [facility] Comment on above: Order Comment: left tubes and labels with salty bronson she will pass on to day shift Performed By: #### D IFF CBC ####[place] [id number] [facility] Platelet mean volume (Bld) [Entitic vol] 7.7 fL Normal 6.3-10.7 [facility] Comment on above: Order Comment: left tubes and labels with salty bronson she will pass on to day shift Result Comment: PERF ORMED BY:[address] [place], [place] [phone] MEDICAL DIRECTORLANDRY LEE M.D. Performed By: #### D IFF CBC ####[place] [id number] [facility] Platelet Morphology Normal Normal Normal [facility] Comment on above: Order Comment: left tubes and labels with salty bronson she will pass on to day shift Result Comment: PERF ORMED BY:[address] [place], [place] [phone] MEDICAL TONYA LEE M.D. Performed By: #### D IFF CBC ####[place] [id number] [facility] Platelets (Bld) [#/Vol] 264 10*3/uL Normal 150-450 [facility] Comment on above: Order Comment: left tubes and labels with salty bronson she will pass on to day shift Performed By: #### D IFF CBC ####[place] [id number] [facility] Polychromasia Marked Normal [facility] Comment on above: Order Comment: left tubes and labels with salty bronson she will pass on to day shift Performed By: #### D IFF CBC ####[place] [id number] [facility] RBC (Bld) [#/Vol] 3.53 10*6/uL Low 3.60-5.00 [facility] Comment on above: Order Comment: left tubes and labels with salty bronson she will pass on to day shift Performed By: #### D IFF CBC ####[address] [address] [facility] Segmented neutrophils/100 WBC (Bld) 80 % High 50-70 [facility] Comment on above: Order Comment: left tubes and labels with rn audie she will pass on to day shift Performed By: #### D IFF CBC ####[place] [id number] [facility] Stomatocytes Slight Normal [facility] Comment on above: Order Comment: left tubes and labels with salty bronson she will pass on to day shift Performed By: #### D IFF CBC ####[place] [id number] [facility] WBC (Bld) [#/Vol] 12.7 10*3/uL High 3.8-11.6 [facility] Comment on above: Order Comment: left tubes and labels with salty bronson she will pass on to day shift Performed By: #### D IFF CBC ####[place] [id number] [facility] White Blood Count 12.7 [CFU]/mL High 3.8-11.6 [facility] Comment on above: Order Comment: left tubes and labels with salty bronson she will pass on to day shift Performed By: #### D IFF CBC ####[address] [address] [facility] Glucose Poct Glucometerson 0 05-17-2025 Glucose [Mass/Vol] 129 mg/dL Normal [facility] Comment on above: Result Comment: [facility] [place] Glucose Reference Range is dependent on time and content of last meal. Glucose of more than 200 mg/dL in a nonstressed, ambulatory subject supports the diagnosis of Diabetes Mellitus.PERFORMED BY:[place] [address] [place], [place] [phone] MEDICAL DIRECTORLANDRY LEE M.D. Performed By: #### G SOLO ####Point of Care testing, Renal Function Panelon 05-17 Albumin [Mass/Vol] 2.5 g/dL Low 3.5-5.7 [facility] Comment on above: Order Comment: left tubes and labels with rn audie she will pass on to day shift Performed By: #### R ENAL ####[place] [id number] [facility] Anion gap [Moles/Vol] 11.6 mmol/L Normal 6.0-15.0 [facility] Comment on above: Order Comment: left tubes and labels with rn audie she will pass on to day shift Performed By: #### R ENAL ####[place] [id number] [facility] Calcium [Mass/Vol] 8.3 mg/dL Low 8.6-10.3 [facility] Comment on above: Order Comment: left tubes and labels with rn audie she will pass on to day shift Performed By: #### R ENAL ####[place] [id number] [facility] Chloride [Moles/Vol] 94 mmol/L Low 98-107 [facility] Comment on above: Order Comment: left tubes and labels with rn audie she will pass on to day shift Performed By: #### R ENAL ####[place] [id number] [facility] CO2 [Moles/Vol] 29.4 mmol/L Normal 21.0-31.0 [facility] Comment on above: Order Comment: left tubes and labels with rn audie she will pass on to day shift Performed By: #### R ENAL ####[place] [id number] [facility] Creatinine [Mass/Vol] 3.33 mg/dL High 0.60-1.20 [facility] Comment on above: Order Comment: left tubes and labels with rn audie she will pass on to day shift Performed By: #### R ENAL ####[address] [address] [facility] Creatinine Clr Calc Pharmacy 16.97 Normal [facility] Comment on above: Order Comment: left tubes and labels with salty bronson she will pass on to day shift Result Comment: PERF ORMED BY:[address] [place], [place] [phone] MEDICAL DIRECTORLANDRY LEE M.D. Performed By: #### R ENAL ####[place] [id number] [facility] GFR/1.73 sq M.predicted MDRD (S/P/Bld) [Vol rate/Area] 15.805 mL/min/{1.73_m2} Normal [facility] Comment on above: Order Comment: left tubes and labels with salty bronson she will pass on to day shift Performed By: #### R ENAL ####[place] [id number] [facility] Glucose [Mass/Vol] 155 mg/dL High 70-100 [facility] Comment on above: Order Comment: left tubes and labels with salty bronson she will pass on to day shift Result Comment: [facility] [place] Glucose Reference Range is dependent on time and content of last meal. Glucose of more than 200 mg/dL in a nonstressed, ambulatory subject supports the diagnosis of Diabetes Mellitus. ADA recommended reference range Performed By: #### R ENAL ####[place] [id number] [facility] Phosphate [Mass/Vol] 2.6 mg/dL Normal 2.5-4.5 [facility] Comment on above: Order Comment: left tubes and labels with salty bronson she will pass on to day shift Performed By: #### R ENAL ####[place] [id number] [facility] Potassium [Moles/Vol] 4.0 mmol/L Normal 3.5-5.1 [facility] Comment on above: Order Comment: left tubes and labels with salty bronson she will pass on to day shift Performed By: #### R ENAL ####[address] Sodium [Moles/Vol] 131 mmol/L Low 136-145 [facility] Comment on above: Order Comment: left tubes and labels with rn audie she will pass on to day shift Performed By: #### R ENAL ####[address] Urea nitrogen [Mass/Vol] 17 mg/dL Normal 7-25 [facility] Comment on above: Order Comment: left tubes and labels with rn audie she will pass on to day shift Performed By: #### R ENAL ####[address] Diff and CBCon 05-16-2025 Anisocytosis Ql (Bld) Marked Normal [facility] Comment on above: Order Comment: REDRA W Performed By: #### D IFF CBC ####[address] Band form neutrophils/100 WBC (Bld) 1 % Normal 0-5 [facility] Comment on above: Order Comment: REDRA W Performed By: #### D IFF CBC ####[address] Eosinophils/100 WBC (Bld) 1 % Normal 1-3 [facility] Comment on above: Order Comment: REDRA W Performed By: #### D IFF CBC ####[address] Erythrocyte distribution width (RBC) [Ratio] 22.2 % High 11.9-15.3 [facility] Comment on above: Order Comment: REDRA W Performed By: #### D IFF CBC ####[address] Hematocrit (Bld) [Volume fraction] 27.2 % Low 34.0-46.4 [facility] Comment on above: Order Comment: REDRA W Performed By: #### D IFF CBC ####[place] [id number] [place] Hemoglobin (Bld) [Mass/Vol] 8.3 g/dL Low 11.8-15.4 [facility] Comment on above: Order Comment: REDRA W Performed By: #### D IFF CBC ####[address] Hypochromasia Slight Normal [facility] Comment on above: Order Comment: REDRA W Performed By: #### D IFF CBC ####[address] Lymphocytes/100 WBC (Bld) 8 % Low 18-42 [facility] Comment on above: Order Comment: REDRA W Performed By: #### D IFF CBC ####[address] MCH (RBC) [Entitic mass] 23.0 pg Low 24.7-34.3 [facility] Comment on above: Order Comment: REDRA W Performed By: #### D IFF CBC ####[address] MCV (RBC) [Entitic vol] 75.9 fL Low 80-100 [facility] Comment on above: Order Comment: REDRA W Performed By: #### D IFF CBC ####[address] Mean Corpuscular HGB Conc 30.3 g/dL Low 32.0-35.0 [facility] Comment on above: Order Comment: REDRA W Performed By: #### D IFF CBC ####[address] Metamyelocytes 2 % High 0-0 [facility] Comment on above: Order Comment: REDRA W Performed By: #### D IFF CBC ####[address] Microcytosis Slight Normal [facility] Comment on above: Order Comment: REDRA W Performed By: #### D IFF CBC ####[address] [place] [address] [facility] Monocytes/100 WBC (Bld) 5 % Normal 2-11 [facility] Comment on above: Order Comment: REDRA W Performed By: #### D IFF CBC ####[place] [id number] [facility] Platelet Estimate Normal Normal Normal [facility] Comment on above: Order Comment: REDRA W Performed By: #### D IFF CBC ####[place] [id number] [facility] Platelet mean volume (Bld) [Entitic vol] 7.8 fL Normal 6.3-10.7 [facility] Comment on above: Order Comment: REDRA W Performed By: #### D IFF CBC ####[place] [id number] [facility] Platelet Morphology Normal Normal Normal [facility] Comment on above: Order Comment: REDRA W Result Comment: PERF ORMED BY:[address] [place] [phone] MEDICAL TONYA LEE M.D. Performed By: #### D IFF CBC ####[place] [id number] [facility] Platelets (Bld) [#/Vol] 253 10*3/uL Normal 150-450 [facility] Comment on above: Order Comment: REDRA W Performed By: #### D IFF CBC ####[place] [id number] [facility] Polychromasia Slight Normal [facility] Comment on above: Order Comment: REDRA W Performed By: #### D IFF CBC ####[place] [id number] [facility] RBC (Bld) [#/Vol] 3.59 10*6/uL Low 3.60-5.00 [facility] Comment on above: Order Comment: REDRA W Performed By: #### D IFF CBC ####[place] [id number] [facility] Segmented neutrophils/100 WBC (Bld) 84 % High 50-70 [facility] Comment on above: Order Comment: REDRA W Performed By: #### D IFF CBC ####[place] [id number] [facility] Stomatocytes Slight Normal [facility] Comment on above: Order Comment: REDRA W Performed By: #### D IFF CBC ####[place] [id number] [facility] WBC (Bld) [#/Vol] 15.3 10*3/uL High 3.8-11.6 [facility] Comment on above: Order Comment: REDRA W Performed By: #### D IFF CBC ####[place] [id number] [facility] White Blood Count 15.3 [CFU]/mL High 3.8-11.6 [facility] Comment on above: Order Comment: REDRA W Performed By: #### D IFF CBC ####[place] [id number] [facility] Glucose Poct Glucometerson 0 05-16-2025 Glucose [Mass/Vol] 160 mg/dL Normal [facility] Comment on above: Result Comment: [place] Glucose Reference Range is dependent on time and content of last meal. Glucose of more than 200 mg/dL in a nonstressed, ambulatory subject supports the diagnosis of Diabetes Mellitus.PERFORMED BY:[address] [place], [place] [phone] MEDICAL TONYA LEE M.D. Performed By: #### G LULS ####Point of Care testing, Glucose [Mass/Vol] 183 mg/dL Normal [facility] Comment on above: Result Comment: [facility] [place] Glucose Reference Range is dependent on time and content of last meal. Glucose of more than 200 mg/dL in a nonstressed, ambulatory subject supports the diagnosis of Diabetes Mellitus.PERFORMED BY:[address] [place], [place] [phone] IONA LEE M.D. Performed By: #### G LULS ####Point of Care testing, Glucose [Mass/Vol] 179 mg/dL Normal [facility] Comment on above: Result Comment: [facility] [place] Glucose Reference Range is dependent on time and content of last meal. Glucose of more than 200 mg/dL in a nonstressed, ambulatory subject supports the diagnosis of Diabetes Mellitus.PERFORMED BY:[address] [place], [place] [phone] MEDICAL TONYA LEE M.D. Performed By: #### G LULS ####Point of Care testing, Glucose [Mass/Vol] 170 mg/dL Normal [facility] Comment on above: Result Comment: [facility] [place] Glucose Reference Range is dependent on time and content of last meal. Glucose of more than 200 mg/dL in a nonstressed, ambulatory subject supports the diagnosis of Diabetes Mellitus.PERFORMED BY:[address] [place], [place] [phone] MEDICAL TONYA LEE M.D. Performed By: #### G LULS ####Point of Care testing, Diff and CBCon 05-15-2025 Anisocytosis Ql (Bld) Moderate Normal [facility] Comment on above: Performed By: #### D IFF CBC ####[place] [id number] [facility] Band form neutrophils/100 WBC (Bld) 6 % High 0-5 [facility] Comment on above: Performed By: #### D IFF CBC ####[address] [address] [place] Basophils/100 WBC (Bld) 1 % Normal 0-2 [facility] Comment on above: Performed By: #### D IFF CBC ####[address] [address] [place] Eosinophils/100 WBC (Bld) 1 % Normal 1-3 [facility] Comment on above: Performed By: #### D IFF CBC ####[place] [id number] [facility] Erythrocyte distribution width (RBC) [Ratio] 22.4 % High 11.9-15.3 [facility] Comment on above: Performed By: #### D IFF CBC ####[address] Hematocrit (Bld) [Volume fraction] 29.4 % Low 34.0-46.4 [facility] Comment on above: Performed By: #### D IFF CBC ####[address] Hemoglobin (Bld) [Mass/Vol] 8.9 g/dL Low 11.8-15.4 [facility] Comment on above: Performed By: #### D IFF CBC ####[address] Hypochromasia Moderate Normal [facility] Comment on above: Performed By: #### D IFF CBC ####[address] Lymphocytes/100 WBC (Bld) 9 % Low 18-42 [facility] Comment on above: Performed By: #### D IFF CBC ####[address] MCH (RBC) [Entitic mass] 22.8 pg Low 24.7-34.3 [facility] Comment on above: Performed By: #### D IFF CBC ####[address] MCV (RBC) [Entitic vol] 75.7 fL Low 80-100 [facility] Comment on above: Performed By: #### D IFF CBC ####[address] Mean Corpuscular HGB Conc 30.2 g/dL Low 32.0-35.0 [facility] Comment on above: Performed By: #### D IFF CBC ####[address] Microcytosis Slight Normal [facility] Comment on above: Performed By: #### D IFF CBC ####[address] [address] [facility] Monocytes/100 WBC (Bld) 5 % Normal 2-11 [facility] Comment on above: Performed By: #### D IFF CBC ####[place] [id number] [facility] Myelocytes 1 % High 0-0 [facility] Comment on above: Performed By: #### D IFF CBC ####[address] [address] [facility] Platelet Estimate Normal Normal Normal [facility] Comment on above: Performed By: #### D IFF CBC ####[place] [id number] [facility] Platelet mean volume (Bld) [Entitic vol] 7.6 fL Normal 6.3-10.7 [facility] Comment on above: Performed By: #### D IFF CBC ####[place] [id number] [facility] Platelet Morphology Normal Normal Normal [facility] Comment on above: Result Comment: PERF ORMED BY:[address] [place], [place] [phone] MEDICAL TONYA LEE M.D. Performed By: #### D IFF CBC ####[address] [address] [facility] Platelets (Bld) [#/Vol] 313 10*3/uL Normal 150-450 [facility] Comment on above: Performed By: #### D IFF CBC ####[address] [address] [facility] Polychromasia Slight Normal [facility] Comment on above: Performed By: #### D IFF CBC ####[address] [address] [facility] RBC (Bld) [#/Vol] 3.89 10*6/uL Normal 3.60-5.00 [facility] Comment on above: Performed By: #### D IFF CBC ####[address] [place] [address] [place] RBC morphology finding Nom (Bld) Normal Normal Normal [facility] Comment on above: Performed By: #### D IFF CBC ####[address] Segmented neutrophils/100 WBC (Bld) 77 % High 50-70 [facility] Comment on above: Performed By: #### D IFF CBC ####[address] WBC (Bld) [#/Vol] 18.3 10*3/uL High 3.8-11.6 [facility] Comment on above: Performed By: #### D IFF CBC ####[address] White Blood Count 18.3 [CFU]/mL High 3.8-11.6 [facility] Comment on above: Performed By: #### D IFF CBC ####[address] Glucose Poct Glucometerson 0 05-15-2025 Glucose [Mass/Vol] 194 mg/dL Normal [facility] Comment on above: Result Comment: [facility] Glucose Reference Range is dependent on time and content of last meal. Glucose of more than 200 mg/dL in a nonstressed, ambulatory subject supports the diagnosis of Diabetes Mellitus.PERFORMED BY:[address] [address] [place], [place] [phone] MEDICAL TONYA LEE M.D. Performed By: #### G LULS ####Point of Care testing, Commemt1 Glu2: Cleaned Meter Normal [facility] Comment on above: Result Comment: PERF ORMED BY:[address] [address] [address] [address] [place], [place] [phone] IONA LEE M.D. Performed By: #### G LULS ####Point of Care testing, Glucose [Mass/Vol] 158 mg/dL Normal [facility] Comment on above: Result Comment: [facility] [place] Glucose Reference Range is dependent on time and content of last meal. Glucose of more than 200 mg/dL in a nonstressed, ambulatory subject supports the diagnosis of Diabetes Mellitus. Performed By: #### G LULS ####Point of Care testing, Glucose [Mass/Vol] 176 mg/dL Normal [facility] Comment on above: Result Comment: [facility] [place] Glucose Reference Range is dependent on time and content of last meal. Glucose of more than 200 mg/dL in a nonstressed, ambulatory subject supports the diagnosis of Diabetes Mellitus.PERFORMED BY:[address] [place], [place] [phone] MEDICAL TONYA LEE M.D. Performed By: #### G LULS ####Point of Care testing, Glucose [Mass/Vol] 147 mg/dL Normal [facility] Comment on above: Result Comment: [facility] [place] Glucose Reference Range is dependent on time and content of last meal. Glucose of more than 200 mg/dL in a nonstressed, ambulatory subject supports the diagnosis of Diabetes Mellitus.PERFORMED BY:[address] [place], [place] [phone] MEDICAL TONYA LEE M.D. Performed By: #### G LULS ####Point of Care testing, Renal Function Panelon 05-15 Albumin [Mass/Vol] 2.7 g/dL Low 3.5-5.7 [facility] Comment on above: Performed By: #### R ENAL ####[address] [address] [facility] Anion gap [Moles/Vol] 14.4 mmol/L Normal 6.0-15.0 [facility] Comment on above: Performed By: #### R ENAL ####[address] [address] [facility] Calcium [Mass/Vol] 8.4 mg/dL Low 8.6-10.3 [facility] Comment on above: Performed By: #### R ENAL ####[address] [address] [facility] Chloride [Moles/Vol] 97 mmol/L Low 98-107 [facility] Comment on above: Performed By: #### R ENAL ####[address] [address] [address] [facility] CO2 [Moles/Vol] 26.6 mmol/L Normal 21.0-31.0 [facility] Comment on above: Performed By: #### R ENAL ####[address] [address] [facility] Creatinine [Mass/Vol] 4.05 mg/dL High 0.60-1.20 [facility] Comment on above: Performed By: #### R ENAL ####[place] [id number] [facility] Creatinine Clr Calc Pharmacy 13.97 Normal [facility] Comment on above: Result Comment: PERF ORMED BY:[address] [place], [place] [id number] MEDICAL TONYA LEE M.D. Performed By: #### R ENAL ####[address] [address] [facility] GFR/1.73 sq M.predicted MDRD (S/P/Bld) [Vol rate/Area] 12.497 mL/min/{1.73_m2} Normal [facility] Comment on above: Performed By: #### R ENAL ####[place] [id number] [facility] Glucose [Mass/Vol] 135 mg/dL High 70-100 [facility] Comment on above: Result Comment: [facility] Glucose Reference Range is dependent on time and content of last meal. Glucose of more than 200 mg/dL in a nonstressed, ambulatory subject supports the diagnosis of Diabetes Mellitus. ADA recommended reference range Performed By: #### R ENAL ####[address] [address] [facility] Phosphate [Mass/Vol] 4.1 mg/dL Normal 2.5-4.5 [facility] Comment on above: Performed By: #### R ENAL ####[address] [place] [address] [place] Potassium [Moles/Vol] 4.0 mmol/L Normal 3.5-5.1 [facility] Comment on above: Performed By: #### R ENAL ####[address] Sodium [Moles/Vol] 134 mmol/L Low 136-145 [facility] Comment on above: Performed By: #### R ENAL ####[address] Urea nitrogen [Mass/Vol] 23 mg/dL Normal 7-25 [facility] Comment on above: Performed By: #### R ENAL ####[address] Diff and CBCon 05-14-2025 Anisocytosis Ql (Bld) Marked Normal [facility] Comment on above: Performed By: #### D IFF CBC ####[address] Band form neutrophils/100 WBC (Bld) 1 % Normal 0-5 [facility] Comment on above: Performed By: #### D IFF CBC ####[address] Erythrocyte distribution width (RBC) [Ratio] 22.0 % High 11.9-15.3 [facility] Comment on above: Performed By: #### D IFF CBC ####[address] Hematocrit (Bld) [Volume fraction] 27.8 % Low 34.0-46.4 [facility] Comment on above: Performed By: #### D IFF CBC ####[address] Hemoglobin (Bld) [Mass/Vol] 8.5 g/dL Low 11.8-15.4 [facility] Comment on above: Performed By: #### D IFF CBC ####[address] Hypochromasia Slight Normal [facility] Comment on above: Performed By: #### D IFF CBC ####[address] Lymphocytes/100 WBC (Bld) 7 % Low 18-42 [facility] Comment on above: Performed By: #### D IFF CBC ####[place] [id number] [facility] MCH (RBC) [Entitic mass] 23.1 pg Low 24.7-34.3 [facility] Comment on above: Performed By: #### D IFF CBC ####[address] MCV (RBC) [Entitic vol] 75.3 fL Low 80-100 [facility] Comment on above: Performed By: #### D IFF CBC ####[address] Mean Corpuscular HGB Conc 30.6 g/dL Low 32.0-35.0 [facility] Comment on above: Performed By: #### D IFF CBC ####[address] Metamyelocytes 2 % High 0-0 [facility] Comment on above: Performed By: #### D IFF CBC ####[address] Microcytosis Slight Normal [facility] Comment on above: Performed By: #### D IFF CBC ####[place] [id number] [facility] Monocytes/100 WBC (Bld) 3 % Normal 2-11 [facility] Comment on above: Performed By: #### D IFF CBC ####[address] Myelocytes 3 % High 0-0 [facility] Comment on above: Performed By: #### D IFF CBC ####[address] Platelet Estimate Normal Normal Normal [facility] Comment on above: Performed By: #### D IFF CBC ####[address] [address] [facility] Platelet mean volume (Bld) [Entitic vol] 7.8 fL Normal 6.3-10.7 [facility] Comment on above: Performed By: #### D IFF CBC ####[address] [address] [facility] Platelet Morphology Normal Normal Normal [facility] Comment on above: Result Comment: PERF ORMED BY:[address] [place], [place] [phone] MEDICAL DIRECTORLANDRY LEE M.D. Performed By: #### D IFF CBC ####[place] [id number] [facility] Platelets (Bld) [#/Vol] 295 10*3/uL Normal 150-450 [facility] Comment on above: Performed By: #### D IFF CBC ####[place] [id number] [facility] Polychromasia Slight Normal [facility] Comment on above: Performed By: #### D IFF CBC ####[place] [id number] [facility] RBC (Bld) [#/Vol] 3.70 10*6/uL Normal 3.60-5.00 [facility] Comment on above: Performed By: #### D IFF CBC ####[place] [id number] [facility] Segmented neutrophils/100 WBC (Bld) 85 % High 50-70 [facility] Comment on above: Performed By: #### D IFF CBC ####[place] [id number] [facility] WBC (Bld) [#/Vol] 19.3 10*3/uL High 3.8-11.6 [facility] Comment on above: Performed By: #### D IFF CBC ####[place] [id number] [facility] White Blood Count 19.3 [CFU]/mL High 3.8-11.6 [facility] Comment on above: Performed By: #### D IFF CBC ####[address] [address] [facility] Glucose Poct Glucometerson 0 05-14-2025 Glucose [Mass/Vol] 176 mg/dL Normal [facility] Comment on above: Result Comment: [facility] Glucose Reference Range is dependent on time and content of last meal. Glucose of more than 200 mg/dL in a nonstressed, ambulatory subject supports the diagnosis of Diabetes Mellitus.PERFORMED BY:[address] [place], [place] [phone] MEDICAL TONYA LEE M.D. Performed By: #### G LULS ####Point of Care testing, Glucose [Mass/Vol] 193 mg/dL Normal [facility] Comment on above: Result Comment: [facility] [place] Glucose Reference Range is dependent on time and content of last meal. Glucose of more than 200 mg/dL in a nonstressed, ambulatory subject supports the diagnosis of Diabetes Mellitus.PERFORMED BY:[address] [place], [place] [phone] MEDICAL TONYA LEE M.D. Performed By: #### G LULS ####Point of Care testing, Glucose [Mass/Vol] 161 mg/dL Normal [facility] Comment on above: Result Comment: [facility] [place] Glucose Reference Range is dependent on time and content of last meal. Glucose of more than 200 mg/dL in a nonstressed, ambulatory subject supports the diagnosis of Diabetes Mellitus.PERFORMED BY:[address] [place], [place] [id number] IONA LEE M.D. Performed By: #### G LULS ####Point of Care testing, Commemt1 Glu2: Cleaned Meter Normal [facility] Comment on above: Result Comment: PERF ORMED BY:[address] [place] [id number] MEDICAL TONYA LEE M.D. Performed By: #### G LULS ####Point of Care testing, Glucose [Mass/Vol] 182 mg/dL Normal [facility] Comment on above: Result Comment: [facility] Glucose Reference Range is dependent on time and content of last meal. Glucose of more than 200 mg/dL in a nonstressed, ambulatory subject supports the diagnosis of Diabetes Mellitus. Performed By: #### G LULS ####Point of Care testing, Renal Function Panelon 05-14 Albumin [Mass/Vol] 2.5 g/dL Low 3.5-5.7 [facility] Comment on above: Performed By: #### R ENAL ####[address] Anion gap [Moles/Vol] 11.5 mmol/L Normal 6.0-15.0 [facility] Comment on above: Performed By: #### R ENAL ####[address] Calcium [Mass/Vol] 8.5 mg/dL Low 8.6-10.3 [facility] Comment on above: Performed By: #### R ENAL ####[address] Chloride [Moles/Vol] 96 mmol/L Low 98-107 [facility] Comment on above: Performed By: #### R ENAL ####[place] [id number] [facility] CO2 [Moles/Vol] 28.2 mmol/L Normal 21.0-31.0 [facility] Comment on above: Performed By: #### R ENAL ####[place] [id number] [facility] Creatinine [Mass/Vol] 3.72 mg/dL Significan t change down 0.60-1.20 [facility] Comment on above: Performed By: #### R ENAL ####[place] [id number] [facility] Creatinine Clr Calc Pharmacy 15.43 Normal [facility] Comment on above: Result Comment: PERF ORMED BY:[address] [place] [phone] MEDICAL DIRECTORLANDRY LEE M.D. Performed By: #### R ENAL ####[address] [address] [facility] GFR/1.73 sq M.predicted MDRD (S/P/Bld) [Vol rate/Area] 13.838 mL/min/{1.73_m2} Normal [facility] Comment on above: Performed By: #### R ENAL ####[address] [address] [facility] Glucose [Mass/Vol] 145 mg/dL High 70-100 [facility] Comment on above: Result Comment: [facility] Glucose Reference Range is dependent on time and content of last meal. Glucose of more than 200 mg/dL in a nonstressed, ambulatory subject supports the diagnosis of Diabetes Mellitus. ADA recommended reference range Performed By: #### R ENAL ####[address] [address] [facility] Phosphate [Mass/Vol] 1.6 mg/dL Low 2.5-4.5 [facility] Comment on above: Performed By: #### R ENAL ####[address] [address] [facility] Potassium [Moles/Vol] 3.7 mmol/L Normal 3.5-5.1 [facility] Comment on above: Performed By: #### R ENAL ####[address] [address] [facility] Sodium [Moles/Vol] 132 mmol/L Low 136-145 [facility] Comment on above: Performed By: #### R ENAL ####[address] [address] [facility] Urea nitrogen [Mass/Vol] 19 mg/dL Normal 7-25 [facility] Comment on above: Performed By: #### R ENAL ####[address] [address] [facility] Comprehensive Metabolic Pane christiano 05-13-2025 Albumin [Mass/Vol] 2.6 g/dL Low 3.5-5.7 [facility] Comment on above: Performed By: #### D IFF CBC, CMP ####[place] [address] Albumin/Globulin [Mass ratio] 0.7 {ratio} Normal [facility] Comment on above: Performed By: #### D IFF CBC, CMP ####[address] ALP [Catalytic activity/Vol] 161 U/L High 34-104 [facility] Comment on above: Performed By: #### D IFF CBC, CMP ####[address] ALT [Catalytic activity/Vol] 5 U/L Low 7-52 [facility] Comment on above: Performed By: #### D IFF CBC, CMP ####[address] Anion gap [Moles/Vol] 11.4 mmol/L Normal 6.0-15.0 [facility] Comment on above: Performed By: #### D IFF CBC, CMP ####[address] AST [Catalytic activity/Vol] 6 U/L Low 13-39 [facility] Comment on above: Performed By: #### D IFF CBC, CMP ####[address] Bilirubin [Mass/Vol] 0.3 mg/dL Normal 0.3-1.0 [facility] Comment on above: Performed By: #### D IFF CBC, CMP ####[address] Calcium [Mass/Vol] 8.3 mg/dL Low 8.6-10.3 [facility] Comment on above: Performed By: #### D IFF CBC, CMP ####[address] Chloride [Moles/Vol] 96 mmol/L Low 98-107 [facility] Comment on above: Performed By: #### D IFF CBC, CMP ####[address] CO2 [Moles/Vol] 29.4 mmol/L Normal 21.0-31.0 [facility] Comment on above: Performed By: #### D IFF CBC, CMP ####[address] Creatinine [Mass/Vol] 2.60 mg/dL Significan t change down 0.60-1.20 [facility] Comment on above: Performed By: #### D IFF CBC, CMP ####[address] Creatinine Clr Calc Pharmacy 21.91 Normal [facility] Comment on above: Result Comment: PERF ORMED BY:[address] [place], [place] [phone] MEDICAL TONYA LEE M.D. Performed By: #### D IFF CBC, CMP ####[place] [id number] [facility] GFR/1.73 sq M.predicted MDRD (S/P/Bld) [Vol rate/Area] 21.270 mL/min/{1.73_m2} Normal [facility] Comment on above: Performed By: #### D IFF CBC, CMP ####[place] [id number] [facility] Globulin (S) [Mass/Vol] 3.6 g/dL Normal [facility] Comment on above: Performed By: #### D IFF CBC, CMP ####[address] Glucose [Mass/Vol] 134 mg/dL High 70-100 [facility] Comment on above: Result Comment: [facility] Glucose Reference Range is dependent on time and content of last meal. Glucose of more than 200 mg/dL in a nonstressed, ambulatory subject supports the diagnosis of Diabetes Mellitus. ADA recommended reference range Performed By: #### D IFF CBC, CMP ####[address] Potassium [Moles/Vol] 3.8 mmol/L Normal 3.5-5.1 [facility] Comment on above: Performed By: #### D IFF CBC, CMP ####[address] Protein [Mass/Vol] 6.2 g/dL Low 6.4-8.9 [facility] Comment on above: Performed By: #### D IFF CBC, CMP ####[address] Sodium [Moles/Vol] 133 mmol/L Low 136-145 [facility] Comment on above: Performed By: #### D IFF CBC, CMP ####[address] Urea nitrogen [Mass/Vol] 13 mg/dL Normal 7-25 [facility] Comment on above: Performed By: #### D IFF CBC, CMP ####[address] Diff and CBCon 05-13-2025 Anisocytosis Ql (Bld) Marked Normal [facility] Comment on above: Performed By: #### D IFF CBC, CMP ####[place] [id number] [facility] Basophils/100 WBC (Bld) 1 % Normal 0-2 [facility] Comment on above: Performed By: #### D IFF CBC, CMP ####[place] [id number] [facility] Eosinophils/100 WBC (Bld) 1 % Normal 1-3 [facility] Comment on above: Performed By: #### D IFF CBC, CMP ####[place] [id number] [facility] Erythrocyte distribution width (RBC) [Ratio] 21.5 % High 11.9-15.3 [facility] Comment on above: Performed By: #### D IFF CBC, CMP ####[address] Hematocrit (Bld) [Volume fraction] 28.4 % Low 34.0-46.4 [facility] Comment on above: Performed By: #### D IFF CBC, CMP ####[address] Hemoglobin (Bld) [Mass/Vol] 8.7 g/dL Low 11.8-15.4 [facility] Comment on above: Performed By: #### D IFF CBC, CMP ####[address] Hypochromasia Slight Normal [facility] Comment on above: Performed By: #### D IFF CBC, CMP ####[address] Lymphocytes/100 WBC (Bld) 8 % Low 18-42 [facility] Comment on above: Performed By: #### D IFF CBC, CMP ####[address] MCH (RBC) [Entitic mass] 23.2 pg Low 24.7-34.3 [facility] Comment on above: Performed By: #### D IFF CBC, CMP ####[address] MCV (RBC) [Entitic vol] 75.6 fL Low 80-100 [facility] Comment on above: Performed By: #### D IFF CBC, CMP ####[address] Mean Corpuscular HGB Conc 30.7 g/dL Low 32.0-35.0 [facility] Comment on above: Performed By: #### D IFF CBC, CMP ####[address] Microcytosis Slight Normal [facility] Comment on above: Performed By: #### D IFF CBC, CMP ####[place] [id number] [facility] Monocytes/100 WBC (Bld) 6 % Normal 2-11 [facility] Comment on above: Performed By: #### D IFF CBC, CMP ####[address] Myelocytes 2 % High 0-0 [facility] Comment on above: Performed By: #### D IFF CBC, CMP ####[place] [id number] [facility] Platelet Estimate Normal Normal Normal [facility] Comment on above: Performed By: #### D IFF CBC, CMP ####[place] [id number] [facility] Platelet mean volume (Bld) [Entitic vol] 7.7 fL Normal 6.3-10.7 [facility] Comment on above: Performed By: #### D IFF CBC, CMP ####[address] Platelet Morphology Normal Normal Normal [facility] Comment on above: Result Comment: PERF ORMED BY:[address] [place], [place] [phone] MEDICAL TONYA LEE M.D. Performed By: #### D IFF CBC, CMP ####[place] [id number] [facility] Platelets (Bld) [#/Vol] 317 10*3/uL Normal 150-450 [facility] Comment on above: Performed By: #### D IFF CBC, CMP ####[place] [id number] [facility] Polychromasia Slight Normal [facility] Comment on above: Performed By: #### D IFF CBC, CMP ####[address] RBC (Bld) [#/Vol] 3.76 10*6/uL Normal 3.60-5.00 [facility] Comment on above: Performed By: #### D IFF CBC, CMP ####[address] [address] [facility] Segmented neutrophils/100 WBC (Bld) 83 % High 50-70 [facility] Comment on above: Performed By: #### D IFF CBC, CMP ####[address] [address] [facility] WBC (Bld) [#/Vol] 21.9 10*3/uL High 3.8-11.6 [facility] Comment on above: Performed By: #### D IFF CBC, CMP ####[address] [address] [facility] White Blood Count 21.9 [CFU]/mL High 3.8-11.6 [facility] Comment on above: Performed By: #### D IFF CBC, CMP ####[place] [id number] [facility] Glucose Poct Glucometerson 0 05-13-2025 Commemt1 Glu2: Cleaned Meter Normal [facility] Comment on above: Result Comment: PERF ORMED BY:[address] [place], [place] [phone] MEDICAL TONYA LEE M.D. Performed By: #### G LUMAYELIN ####Point of Care testing, Glucose [Mass/Vol] 191 mg/dL Normal [facility] Comment on above: Result Comment: [facility] Glucose Reference Range is dependent on time and content of last meal. Glucose of more than 200 mg/dL in a nonstressed, ambulatory subject supports the diagnosis of Diabetes Mellitus. Performed By: #### G LULS ####Point of Care testing, Glucose [Mass/Vol] 184 mg/dL Normal [facility] Comment on above: Result Comment: [facility] Glucose Reference Range is dependent on time and content of last meal. Glucose of more than 200 mg/dL in a nonstressed, ambulatory subject supports the diagnosis of Diabetes Mellitus.PERFORMED BY:[address] [place], [place] [phone] MEDICAL TONYA LEE M.D. Performed By: #### G LULS ####Point of Care testing, Glucose [Mass/Vol] 177 mg/dL Normal [facility] Comment on above: Result Comment: [facility] [place] Glucose Reference Range is dependent on time and content of last meal. Glucose of more than 200 mg/dL in a nonstressed, ambulatory subject supports the diagnosis of Diabetes Mellitus.PERFORMED BY:[address] [place], [place] [phone] MEDICAL TONYA LEE M.D. Performed By: #### G LULS ####Point of Care testing, Glucose [Mass/Vol] 145 mg/dL Normal [facility] Comment on above: Result Comment: [facility] [place] Glucose Reference Range is dependent on time and content of last meal. Glucose of more than 200 mg/dL in a nonstressed, ambulatory subject supports the diagnosis of Diabetes Mellitus.PERFORMED BY:[address] [place], [place] [id number] MEDICAL TONYA LEE M.D. Performed By: #### G LULS ####Point of Care testing, Comprehensive Metabolic Pane [facility] 05-12-2025 Albumin [Mass/Vol] 2.6 g/dL Low 3.5-5.7 [facility] Comment on above: Performed By: #### C MP, DIFF CBC ####[address] [address] [facility] Albumin/Globulin [Mass ratio] 0.7 {ratio} Normal [facility] Comment on above: Performed By: #### C MP, DIFF CBC ####[facility] [place] [address] [place] ALP [Catalytic activity/Vol] 121 U/L High 34-104 [facility] Comment on above: Performed By: #### C MP, DIFF CBC ####[address] [address] [facility] ALT [Catalytic activity/Vol] 5 U/L Low 7-52 [facility] Comment on above: Performed By: #### C MP, DIFF CBC ####[address] [place] [address] [facility] Anion gap [Moles/Vol] 13.0 mmol/L Normal 6.0-15.0 [facility] Comment on above: Performed By: #### C MP, DIFF CBC ####[place] [id number] [facility] AST [Catalytic activity/Vol] 6 U/L Low 13-39 [facility] Comment on above: Performed By: #### C MP, DIFF CBC ####[place] [id number] [facility] Bilirubin [Mass/Vol] 0.3 mg/dL Normal 0.3-1.0 [facility] Comment on above: Performed By: #### C MP, DIFF CBC ####[address] Calcium [Mass/Vol] 8.4 mg/dL Low 8.6-10.3 [facility] Comment on above: Performed By: #### C MP, DIFF CBC ####[address] Chloride [Moles/Vol] 99 mmol/L Normal 98-107 [facility] Comment on above: Performed By: #### C MP, DIFF CBC ####[place] [id number] [facility] CO2 [Moles/Vol] 26.7 mmol/L Normal 21.0-31.0 [facility] Comment on above: Performed By: #### C MP, DIFF CBC ####[place] [id number] [facility] Creatinine [Mass/Vol] 3.28 mg/dL Significan t change down 0.60-1.20 [facility] Comment on above: Performed By: #### C MP, DIFF CBC ####[place] [id number] [place] Creatinine Clr Calc Pharmacy 17.81 Normal [facility] Comment on above: Result Comment: PERF ORMED BY:[address] [place], [place] [phone] MEDICAL TONAY LEE M.D. Performed By: #### C MP, DIFF CBC ####[place] [id number] [facility] GFR/1.73 sq M.predicted MDRD (S/P/Bld) [Vol rate/Area] 16.095 mL/min/{1.73_m2} Normal [facility] Comment on above: Performed By: #### C MP, DIFF CBC ####[place] [place] [id number] [facility] Globulin (S) [Mass/Vol] 3.5 g/dL Normal T [facility] Comment on above: Performed By: #### C MP, DIFF CBC ####[place] [id number] [facility] Glucose [Mass/Vol] 162 mg/dL High 70-100 [facility] Comment on above: Result Comment: [facility] Glucose Reference Range is dependent on time and content of last meal. Glucose of more than 200 mg/dL in a nonstressed, ambulatory subject supports the diagnosis of Diabetes Mellitus. ADA recommended reference range Performed By: #### C MP, DIFF CBC ####[place] [id number] [facility] Potassium [Moles/Vol] 3.7 mmol/L Normal 3.5-5.1 [facility] Comment on above: Performed By: #### C MP, DIFF CBC ####[place] [id number] [facility] Protein [Mass/Vol] 6.1 g/dL Low 6.4-8.9 [facility] Comment on above: Performed By: #### C MP, DIFF CBC ####[place] [id number] [facility] Sodium [Moles/Vol] 135 mmol/L Low 136-145 [facility] Comment on above: Performed By: #### C MP, DIFF CBC ####[place] [id number] [facility] Urea nitrogen [Mass/Vol] 21 mg/dL Normal 7-25 [facility] Comment on above: Performed By: #### C MP, DIFF CBC ####[address] [address] [facility] Diff and CBCon 05-12-2025 Anisocytosis Ql (Bld) Moderate Normal [facility] Comment on above: Performed By: #### C MP, DIFF CBC ####[address] Band form neutrophils/100 WBC (Bld) 7 % High 0-5 [facility] Comment on above: Performed By: #### C MP, DIFF CBC ####[address] Basophils/100 WBC (Bld) 1 % Normal 0-2 [facility] Comment on above: Performed By: #### C MP, DIFF CBC ####[address] Erythrocyte distribution width (RBC) [Ratio] 21.3 % High 11.9-15.3 [facility] Comment on above: Performed By: #### C MP, DIFF CBC ####[address] Giant Platelet Tally 1 /100{WBC} Normal [facility] Comment on above: Performed By: #### C MP, DIFF CBC ####[place] [id number] [facility] Hematocrit (Bld) [Volume fraction] 28.7 % Low 34.0-46.4 [facility] Comment on above: Performed By: #### C MP, DIFF CBC ####[place] [id number] [facility] Hemoglobin (Bld) [Mass/Vol] 8.7 g/dL Low 11.8-15.4 [facility] Comment on above: Performed By: #### C MP, DIFF CBC ####[place] [id number] [facility] Hypochromasia Slight Normal [facility] Comment on above: Performed By: #### C MP, DIFF CBC ####[address] Lymphocytes/100 WBC (Bld) 8 % Low 18-42 [facility] Comment on above: Performed By: #### C MP, DIFF CBC ####[address] MCH (RBC) [Entitic mass] 22.8 pg Low 24.7-34.3 [facility] Comment on above: Performed By: #### C MP, DIFF CBC ####[address] MCV (RBC) [Entitic vol] 75.2 fL Low 80-100 [facility] Comment on above: Performed By: #### C MP, DIFF CBC ####[address] Mean Corpuscular HGB Conc 30.4 g/dL Low 32.0-35.0 [facility] Comment on above: Performed By: #### C MP, DIFF CBC ####[address] Microcytosis Slight Normal [facility] Comment on above: Performed By: #### C MP, DIFF CBC ####[address] Monocytes/100 WBC (Bld) 4 % Normal 2-11 [facility] Comment on above: Performed By: #### C MP, DIFF CBC ####[address] Myelocytes 1 % High 0-0 [facility] Comment on above: Performed By: #### C MP, DIFF CBC ####[address] Platelet Estimate Normal Normal Normal [facility] Comment on above: Performed By: #### C MP, DIFF CBC ####[address] Platelet mean volume (Bld) [Entitic vol] 7.8 fL Normal 6.3-10.7 [facility] Comment on above: Performed By: #### C MP, DIFF CBC ####[place] [id number] [facility] Platelet Morphology Normal Normal Normal [facility] Comment on above: Result Comment: PERF ORMED BY:[address] [place], [place] [phone] MEDICAL DIRECTORLANDRY LEE M.D. Performed By: #### C MP, DIFF CBC ####[place] [id number] [facility] Platelets (Bld) [#/Vol] 326 10*3/uL Normal 150-450 [facility] Comment on above: Performed By: #### C MP, DIFF CBC ####[address] Poikilocytosis Moderate Normal [facility] Comment on above: Performed By: #### C MP, DIFF CBC ####[address] Polychromasia Slight Normal [facility] Comment on above: Performed By: #### C MP, DIFF CBC ####[place] [id number] [facility] RBC (Bld) [#/Vol] 3.82 10*6/uL Normal 3.60-5.00 [facility] Comment on above: Performed By: #### C MP, DIFF CBC ####[place] [id number] [facility] Rouleaux Slight Normal [facility] Comment on above: Performed By: #### C MP, DIFF CBC ####[place] [id number] [facility] Segmented neutrophils/100 WBC (Bld) 80 % High 50-70 [facility] Comment on above: Performed By: #### C MP, DIFF CBC ####[address] Stomatocytes Moderate Normal [facility] Comment on above: Performed By: #### C MP, DIFF CBC ####[place] [address] [place] [address] [facility] WBC (Bld) [#/Vol] 20.7 10*3/uL High 3.8-11.6 [facility] Comment on above: Performed By: #### C MP, DIFF CBC ####[place] [address] [place] [id number] [facility] White Blood Count 20.7 [CFU]/mL High 3.8-11.6 [facility] Comment on above: Performed By: #### C MP, DIFF CBC ####[place] [id number] [facility] Glucose Poct Glucometerson 0 05-12-2025 Glucose [Mass/Vol] 114 mg/dL Normal [facility] Comment on above: Result Comment: [facility] Glucose Reference Range is dependent on time and content of last meal. Glucose of more than 200 mg/dL in a nonstressed, ambulatory subject supports the diagnosis of Diabetes Mellitus.PERFORMED BY:[address] [place], [place] [phone] MEDICAL TONYA LEE M.D. Performed By: #### G LULS ####Point of Care testing, Glucose [Mass/Vol] 139 mg/dL Normal [facility] Comment on above: Result Comment: [facility] [place] Glucose Reference Range is dependent on time and content of last meal. Glucose of more than 200 mg/dL in a nonstressed, ambulatory subject supports the diagnosis of Diabetes Mellitus.PERFORMED BY:[address] [place], [place] [phone] IONA LEE M.D. Performed By: #### G LULS ####Point of Care testing, Glucose [Mass/Vol] 176 mg/dL Normal [facility] Comment on above: Result Comment: [facility] [place] Glucose Reference Range is dependent on time and content of last meal. Glucose of more than 200 mg/dL in a nonstressed, ambulatory subject supports the diagnosis of Diabetes Mellitus.PERFORMED BY:[address] [place], [place] [phone] MEDICAL TONYA LEE M.D. Performed By: #### G LULS ####Point of Care testing, Complete Blood Count Auto Di ffon 05-11-2025 Basophils (Bld) [#/Vol] 0.1 10*3/uL Normal 0.0-0.2 [facility] Comment on above: Result Comment: PERF ORMED BY:[address] [place], [place] [phone] MEDICAL TONYA LEE M.D. Performed By: #### C MP, CBC ####[address] [address] [facility] Basophils/100 WBC (Bld) 0.3 % Normal . [facility] Comment on above: Performed By: #### C MP, CBC ####[address] [address] [facility] Eosinophils (Bld) [#/Vol] 0.1 10*3/uL Normal 0.0-0.45 [facility] Comment on above: Performed By: #### C MP, CBC ####[address] [address] [facility] Eosinophils/100 WBC (Bld) 0.4 % Normal . [facility] Comment on above: Performed By: #### C MP, CBC ####[place] [id number] [facility] Erythrocyte distribution width (RBC) [Ratio] 20.8 % High 11.9-15.3 [facility] Comment on above: Performed By: #### C MP, CBC ####[address] [address] [facility] Hematocrit (Bld) [Volume fraction] 26.6 % Low 34.0-46.4 [facility] Comment on above: Performed By: #### C MP, CBC ####[place] [id number] [facility] Hemoglobin (Bld) [Mass/Vol] 8.1 g/dL Low 11.8-15.4 [facility] Comment on above: Performed By: #### C MP, CBC ####[address] Lymphocytes (Bld) [#/Vol] 2.0 10*3/uL Normal 1.00-4.8 [facility] Comment on above: Performed By: #### C MP, CBC ####[place] [id number] [facility] Lymphocytes/100 WBC (Bld) 9.7 % Normal . [facility] Comment on above: Performed By: #### C MP, CBC ####[address] MCH (RBC) [Entitic mass] 22.9 pg Low 24.7-34.3 [facility] Comment on above: Performed By: #### C MP, CBC ####[address] MCV (RBC) [Entitic vol] 75.0 fL Low 80-100 [facility] Comment on above: Performed By: #### C MP, CBC ####[address] Mean Corpuscular HGB Conc 30.5 g/dL Low 32.0-35.0 [facility] Comment on above: Performed By: #### C MP, CBC ####[address] Monocytes (Bld) [#/Vol] 1.1 10*3/uL High 0.0-0.8 [facility] Comment on above: Performed By: #### C MP, CBC ####[address] Monocytes/100 WBC (Bld) 5.2 % Normal . [facility] Comment on above: Performed By: #### C MP, CBC ####[address] Neutrophils (Bld) [#/Vol] 17.5 10*3/uL High 1.8-7.7 [facility] Comment on above: Performed By: #### C MP, CBC ####[place] [id number] [facility] Neutrophils/100 WBC (Bld) 84.4 % Normal . [facility] Comment on above: Performed By: #### C MP, CBC ####[place] [id number] [facility] NRBC% 0.0 /100{WBC} Normal 0-0.5 [facility] Comment on above: Performed By: #### C MP, CBC ####[place] [id number] [facility] Platelet mean volume (Bld) [Entitic vol] 8.0 fL Normal 6.3-10.7 [facility] Comment on above: Performed By: #### C MP, CBC ####[place] [id number] [facility] Platelets (Bld) [#/Vol] 305 10*3/uL Normal 150-450 [facility] Comment on above: Performed By: #### C MP, CBC ####[place] [id number] [facility] RBC (Bld) [#/Vol] 3.54 10*6/uL Low 3.60-5.00 [facility] Comment on above: Performed By: #### C MP, CBC ####[place] [id number] [facility] WBC (Bld) [#/Vol] 20.8 10*3/uL High 3.8-11.6 [facility] Comment on above: Performed By: #### C MP, CBC ####[place] [id number] [facility] White Blood Count 20.8 [CFU]/mL High 3.8-11.6 [facility] Comment on above: Performed By: #### C MP, CBC ####[place] [id number] [facility] Comprehensive Metabolic Pane christiano 05-11-2025 Albumin [Mass/Vol] 2.5 g/dL Low 3.5-5.7 [facility] Comment on above: Performed By: #### C MP, CBC ####[address] [address] [facility] Albumin/Globulin [Mass ratio] 0.7 {ratio} Normal [facility] Comment on above: Performed By: #### C MP, CBC ####[address] [address] [facility] ALP [Catalytic activity/Vol] 137 U/L High 34-104 [facility] Comment on above: Performed By: #### C MP, CBC ####[address] [address] [facility] ALT [Catalytic activity/Vol] 7 U/L Normal 7-52 [facility] Comment on above: Performed By: #### C MP, CBC ####[address] [address] [facility] Anion gap [Moles/Vol] 14.1 mmol/L Normal 6.0-15.0 [facility] Comment on above: Performed By: #### C MP, CBC ####[address] [address] [facility] AST [Catalytic activity/Vol] 7 U/L Low 13-39 [facility] Comment on above: Performed By: #### C MP, CBC ####[place] [id number] [facility] Bilirubin [Mass/Vol] 0.3 mg/dL Normal 0.3-1.0 [facility] Comment on above: Performed By: #### C MP, CBC ####[address] [address] [facility] Calcium [Mass/Vol] 8.0 mg/dL Low 8.6-10.3 [facility] Comment on above: Performed By: #### C MP, CBC ####[address] [address] [facility] Chloride [Moles/Vol] 98 mmol/L Normal 98-107 [facility] Comment on above: Performed By: #### C MP, CBC ####[place] [id number] [facility] CO2 [Moles/Vol] 26.5 mmol/L Normal 21.0-31.0 [facility] Comment on above: Performed By: #### C MP, CBC ####[place] [id number] [facility] Creatinine [Mass/Vol] 2.28 mg/dL Significan t change down 0.60-1.20 [facility] Comment on above: Performed By: #### C MP, CBC ####[address] Creatinine Clr Calc Pharmacy 25.05 Normal [facility] Comment on above: Result Comment: PERF ORMED BY:[address] [place], [place] [phone] MEDICAL TONYA LEE M.D. Performed By: #### C MP, CBC ####[place] [id number] [facility] GFR/1.73 sq M.predicted MDRD (S/P/Bld) [Vol rate/Area] 24.901 mL/min/{1.73_m2} Normal [facility] Comment on above: Performed By: #### C MP, CBC ####[place] [id number] [facility] Globulin (S) [Mass/Vol] 3.5 g/dL Normal T [facility] Comment on above: Performed By: #### C MP, CBC ####[place] [id number] [facility] Glucose [Mass/Vol] 194 mg/dL High 70-100 [facility] Comment on above: Result Comment: [facility] Glucose Reference Range is dependent on time and content of last meal. Glucose of more than 200 mg/dL in a nonstressed, ambulatory subject supports the diagnosis of Diabetes Mellitus. ADA recommended reference range Performed By: #### C MP, CBC ####[place] [id number] [facility] Potassium [Moles/Vol] 3.6 mmol/L Normal 3.5-5.1 [facility] Comment on above: Performed By: #### C MP, CBC ####[place] [id number] [facility] Protein [Mass/Vol] 6.0 g/dL Low 6.4-8.9 [facility] Comment on above: Performed By: #### C MP, CBC ####[address] Sodium [Moles/Vol] 135 mmol/L Low 136-145 [facility] Comment on above: Performed By: #### C MP, CBC ####[place] [id number] [facility] Urea nitrogen [Mass/Vol] 15 mg/dL Normal 7-25 [facility] Comment on above: Performed By: #### C MP, CBC ####[place] [id number] [facility] Glucose Poct Glucometerson 0 05-11-2025 Glucose [Mass/Vol] 174 mg/dL Normal [facility] Comment on above: Result Comment: [facility] Glucose Reference Range is dependent on time and content of last meal. Glucose of more than 200 mg/dL in a nonstressed, ambulatory subject supports the diagnosis of Diabetes Mellitus.PERFORMED BY:[place] [address] [place], [place] [phone] MEDICAL TONYA LEE M.D. Performed By: #### G LULS ####Point of Care testing, Commemt1 Glu2: Cleaned Meter Normal [facility] Comment on above: Result Comment: PERF ORMED BY:[address] [place], [place] [phone] MEDICAL TONYA LEE M.D. Performed By: #### G LULS ####Point of Care testing, Glucose [Mass/Vol] 160 mg/dL Normal [facility] Comment on above: Result Comment: [facility] om Glucose Reference Range is dependent on time and content of last meal. Glucose of more than 200 mg/dL in a nonstressed, ambulatory subject supports the diagnosis of Diabetes Mellitus. Performed By: #### G LULS ####Point of Care testing, Commemt1 Glu2: Cleaned Meter Normal [facility] Comment on above: Result Comment: PERF ORMED BY:[address] [place], [place] [phone] MEDICAL DIRECTORLANDRY LEE M.D. Performed By: #### G LULS ####Point of Care testing, Glucose [Mass/Vol] 164 mg/dL Normal [facility] Comment on above: Result Comment: [facility] om Glucose Reference Range is dependent on time and content of last meal. Glucose of more than 200 mg/dL in a nonstressed, ambulatory subject supports the diagnosis of Diabetes Mellitus. Performed By: #### G LULS ####Point of Care testing, Commemt1 Glu2: Cleaned Meter Normal [facility] Comment on above: Result Comment: PERF ORMED BY:[address] [place], [place] [phone] MEDICAL DIRECTORLANDRY LEE M.D. Performed By: #### G LULS ####Point of Care testing, Glucose [Mass/Vol] 222 mg/dL Normal [facility] Comment on above: Result Comment: [facility] om Glucose Reference Range is dependent on time and content of last meal. Glucose of more than 200 mg/dL in a nonstressed, ambulatory subject supports the diagnosis of Diabetes Mellitus. Performed By: #### G LULS ####Point of Care testing, Aerobic Cultureon 05-10-2025 Aerobic Culture Normal [facility] Comment on above: Performed By: #### A ERC ####[place] [address] [place] [address] [facility] Comprehensive Metabolic Pane christiano 05-10-2025 Albumin [Mass/Vol] 2.5 g/dL Low 3.5-5.7 [facility] Comment on above: Performed By: #### S CAN CBC, CMP ####[place] [address] [place] [address] [facility] Albumin/Globulin [Mass ratio] 0.8 {ratio} Normal [facility] Comment on above: Performed By: #### S CAN CBC, CMP ####[place] [address] [place] [id number] [facility] ALP [Catalytic activity/Vol] 133 U/L High 34-104 [facility] Comment on above: Performed By: #### S CAN CBC, CMP ####[place] [address] [place] [id number] [facility] ALT [Catalytic activity/Vol] 6 U/L Low 7-52 [facility] Comment on above: Performed By: #### S CAN CBC, CMP ####[place] [address] [place] [address] [facility] Anion gap [Moles/Vol] 13.8 mmol/L Normal 6.0-15.0 [facility] Comment on above: Performed By: #### S CAN CBC, CMP ####[place] [id number] [facility] AST [Catalytic activity/Vol] 10 U/L Low 13-39 [facility] Comment on above: Performed By: #### S CAN CBC, CMP ####[place] [id number] [facility] Bilirubin [Mass/Vol] 0.4 mg/dL Normal 0.3-1.0 [facility] Comment on above: Performed By: #### S CAN CBC, CMP ####[place] [id number] [facility] Calcium [Mass/Vol] 8.0 mg/dL Low 8.6-10.3 [facility] Comment on above: Performed By: #### S CAN CBC, CMP ####[place] [id number] [facility] Chloride [Moles/Vol] 96 mmol/L Low 98-107 [facility] Comment on above: Performed By: #### S CAN CBC, CMP ####[place] [address] [place] [id number] [facility] CO2 [Moles/Vol] 25.5 mmol/L Normal 21.0-31.0 [facility] Comment on above: Performed By: #### S CAN CBC, CMP ####[place] [id number] [facility] Creatinine [Mass/Vol] 3.01 mg/dL Significan t change down 0.60-1.20 [facility] Comment on above: Performed By: #### S CAN CBC, CMP ####[address] Creatinine Clr Calc Pharmacy 19.68 Normal [facility] Comment on above: Result Comment: PERF ORMED BY:[address] [place], [place] [phone] MEDICAL DIRECTORLANDRY LEE M.D. Performed By: #### S CAN CBC, CMP ####[address] GFR/1.73 sq M.predicted MDRD (S/P/Bld) [Vol rate/Area] 17.843 mL/min/{1.73_m2} Normal [facility] Comment on above: Performed By: #### S CAN CBC, CMP ####[address] Globulin (S) [Mass/Vol] 3.2 g/dL Normal T [facility] Comment on above: Performed By: #### S CAN CBC, CMP ####[address] Glucose [Mass/Vol] 113 mg/dL High 70-100 [facility] Comment on above: Result Comment: [facility] Glucose Reference Range is dependent on time and content of last meal. Glucose of more than 200 mg/dL in a nonstressed, ambulatory subject supports the diagnosis of Diabetes Mellitus. ADA recommended reference range Performed By: #### S CAN CBC, CMP ####[address] Potassium [Moles/Vol] 3.3 mmol/L Low 3.5-5.1 [facility] Comment on above: Performed By: #### S CAN CBC, CMP ####[place] [id number] [facility] Protein [Mass/Vol] 5.7 g/dL Low 6.4-8.9 [facility] Comment on above: Performed By: #### S CAN CBC, CMP ####[address] Sodium [Moles/Vol] 132 mmol/L Low 136-145 [facility] Comment on above: Performed By: #### S CAN CBC, CMP ####[address] Urea nitrogen [Mass/Vol] 27 mg/dL High 7-25 [facility] Comment on above: Performed By: #### S CAN CBC, CMP ####[address] Glucose Poct Glucometerson 0 05-10-2025 Glucose [Mass/Vol] 162 mg/dL Normal [facility] Comment on above: Result Comment: [facility] Glucose Reference Range is dependent on time and content of last meal. Glucose of more than 200 mg/dL in a nonstressed, ambulatory subject supports the diagnosis of Diabetes Mellitus.PERFORMED BY:[address] [place], [place] [phone] MEDICAL TONYA LEE M.D. Performed By: #### G LULS ####Point of Care testing, Commemt1 Glu2: Cleaned Meter Normal [facility] Comment on above: Result Comment: PERF ORMED BY:[address] [place], [place] [phone] MEDICAL TONYA LEE M.D. Performed By: #### G LULS ####Point of Care testing, Glucose [Mass/Vol] 122 mg/dL Normal [facility] Comment on above: Result Comment: [facility] om Glucose Reference Range is dependent on time and content of last meal. Glucose of more than 200 mg/dL in a nonstressed, ambulatory subject supports the diagnosis of Diabetes Mellitus. Performed By: #### G LULS ####Point of Care testing, Glucose [Mass/Vol] 92 mg/dL Normal The [facility] Comment on above: Result Comment: [facility] [place] Glucose Reference Range is dependent on time and content of last meal. Glucose of more than 200 mg/dL in a nonstressed, ambulatory subject supports the diagnosis of Diabetes Mellitus.PERFORMED BY:[address] [place], [place] [phone] MEDICAL TONYA LEE M.D. Performed By: #### G LULS ####Point of Care testing, Glucose [Mass/Vol] 130 mg/dL Normal [facility] Comment on above: Result Comment: [facility] [place] Glucose Reference Range is dependent on time and content of last meal. Glucose of more than 200 mg/dL in a nonstressed, ambulatory subject supports the diagnosis of Diabetes Mellitus.PERFORMED BY:[address] [place], [place] [phone] MEDICAL TONYA LEE M.D. Performed By: #### G LULS ####Point of Care testing, [place] 05-10-2025 L Normal [facility] Pathology Request for Lab Co rpon 05-10-2025 Pathology Request for Lab [place] Normal [facility] Comment on above: Order Comment: FRESH SKIN- ABDOMEN Result Comment: See report. Scanned copy available in EMR.PERFORMED BY:[address] [place], [place] [phone] MEDICAL TONYA LEE M.D. Performed By: #### P ATH TO [facility] ####[place] [id number] [place] Scan and CBCon 05-10-2025 Anisocytosis Ql (Bld) Slight Normal [facility] Comment on above: Performed By: #### S CAN CBC, CMP ####[address] Basophils (Bld) [#/Vol] 0.1 10*3/uL Normal 0.0-0.2 [facility] Comment on above: Performed By: #### S CAN CBC, CMP ####[place] [id number] [place] Basophils/100 WBC (Bld) 0.5 % Normal . T valery [facility] Comment on above: Performed By: #### S CAN CBC, CMP ####[address] Eosinophils (Bld) [#/Vol] 0.3 10*3/uL Normal 0.0-0.45 [facility] Comment on above: Performed By: #### S CAN CBC, CMP ####[address] Eosinophils/100 WBC (Bld) 1.2 % Normal . [facility] Comment on above: Performed By: #### S CAN CBC, CMP ####[address] Erythrocyte distribution width (RBC) [Ratio] 20.8 % High 11.9-15.3 [facility] Comment on above: Performed By: #### S CAN CBC, CMP ####[address] Hematocrit (Bld) [Volume fraction] 28.0 % Low 34.0-46.4 [facility] Comment on above: Performed By: #### S CAN CBC, CMP ####[address] Hemoglobin (Bld) [Mass/Vol] 8.7 g/dL Low 11.8-15.4 [facility] Comment on above: Performed By: #### S CAN CBC, CMP ####[address] Hypochromasia Moderate Normal [facility] Comment on above: Performed By: #### S CAN CBC, CMP ####[address] Large Platelets Slight Normal [facility] Comment on above: Result Comment: PERF ORMED BY:[address] [place], [place] [phone] MEDICAL DIRECTORLANDRY LEE M.D. Performed By: #### S CAN CBC, CMP ####[address] Lymphocytes (Bld) [#/Vol] 1.6 10*3/uL Normal 1.00-4.8 [facility] Comment on above: Performed By: #### S CAN CBC, CMP ####[address] Lymphocytes/100 WBC (Bld) 7.6 % Normal . [facility] Comment on above: Performed By: #### S CAN CBC, CMP ####[address] MCH (RBC) [Entitic mass] 23.1 pg Low 24.7-34.3 [facility] Comment on above: Performed By: #### S CAN CBC, CMP ####[address] MCV (RBC) [Entitic vol] 74.6 fL Low 80-100 [facility] Comment on above: Performed By: #### S CAN CBC, CMP ####[address] Mean Corpuscular HGB Conc 31.0 g/dL Low 32.0-35.0 [facility] Comment on above: Performed By: #### S CAN CBC, CMP ####[address] Microcytosis Slight Normal [facility] Comment on above: Performed By: #### S CAN CBC, CMP ####[address] Monocytes (Bld) [#/Vol] 1.6 10*3/uL High 0.0-0.8 [facility] Comment on above: Performed By: #### S CAN CBC, CMP ####[address] Monocytes/100 WBC (Bld) 7.6 % Normal . [facility] Comment on above: Performed By: #### S CAN CBC, CMP ####[address] Neutrophils (Bld) [#/Vol] 18.0 10*3/uL High 1.8-7.7 [facility] Comment on above: Performed By: #### S CAN CBC, CMP ####[address] Neutrophils/100 WBC (Bld) 83.1 % Normal . [facility] Comment on above: Performed By: #### S CAN CBC, CMP ####[address] NRBC% 0.0 /100{WBC} Normal 0-0.5 [facility] Comment on above: Performed By: #### S CAN CBC, CMP ####[address] Ovalocytes Slight Normal [facility] Comment on above: Performed By: #### S CAN CBC, CMP ####[address] Platelet Estimate Normal Normal Normal [facility] Comment on above: Performed By: #### S CAN CBC, CMP ####[address] Platelet mean volume (Bld) [Entitic vol] 7.7 fL Normal 6.3-10.7 [facility] Comment on above: Performed By: #### S CAN CBC, CMP ####[address] Platelets (Bld) [#/Vol] 294 10*3/uL Normal 150-450 [facility] Comment on above: Performed By: #### S CAN CBC, CMP ####[address] Poikilocytosis Slight Normal [facility] Comment on above: Performed By: #### S CAN CBC, CMP ####[address] Polychromasia Slight Normal [facility] Comment on above: Performed By: #### S CAN CBC, CMP ####[place] [id number] [facility] RBC (Bld) [#/Vol] 3.76 10*6/uL Normal 3.60-5.00 [facility] Comment on above: Performed By: #### S CAN CBC, CMP ####[place] [id number] [facility] Stomatocytes Slight Normal [facility] Comment on above: Performed By: #### S CAN CBC, CMP ####[place] [id number] [facility] WBC (Bld) [#/Vol] 21.7 10*3/uL High 3.8-11.6 [facility] Comment on above: Performed By: #### S CAN CBC, CMP ####[address] White Blood Count 21.7 [CFU]/mL High 3.8-11.6 [facility] Comment on above: Performed By: #### S CAN CBC, CMP ####[address] Comprehensive Metabolic Pane christiano 05-09-2025 Albumin [Mass/Vol] 2.5 g/dL Low 3.5-5.7 [facility] Comment on above: Performed By: #### S CAN CBC, MG, CMP, PHOS ####[address] Albumin/Globulin [Mass ratio] 0.8 {ratio} Normal [facility] Comment on above: Performed By: #### S CAN CBC, MG, CMP, PHOS ####[place] [id number] [facility] ALP [Catalytic activity/Vol] 130 U/L High 34-104 [facility] Comment on above: Performed By: #### S CAN CBC, MG, CMP, PHOS ####[place] [id number] [facility] ALT [Catalytic activity/Vol] 6 U/L Low 7-52 [facility] Comment on above: Performed By: #### S CAN CBC, MG, CMP, PHOS ####[address] Anion gap [Moles/Vol] 14.4 mmol/L Normal 6.0-15.0 Th e [facility] Comment on above: Performed By: #### S CAN CBC, MG, CMP, PHOS ####[address] AST [Catalytic activity/Vol] 10 U/L Low 13-39 [facility] Comment on above: Performed By: #### S CAN CBC, MG, CMP, PHOS ####[address] Bilirubin [Mass/Vol] 0.3 mg/dL Normal 0.3-1.0 [facility] Comment on above: Performed By: #### S CAN CBC, MG, CMP, PHOS ####[address] Calcium [Mass/Vol] 8.1 mg/dL Low 8.6-10.3 [facility] Comment on above: Performed By: #### S CAN CBC, MG, CMP, PHOS ####[address] Chloride [Moles/Vol] 95 mmol/L Low 98-107 [facility] Comment on above: Performed By: #### S CAN CBC, MG, CMP, PHOS ####[address] CO2 [Moles/Vol] 24.0 mmol/L Normal 21.0-31.0 [facility] Comment on above: Performed By: #### S CAN CBC, MG, CMP, PHOS ####[address] Creatinine [Mass/Vol] 4.84 mg/dL High 0.60-1.20 [facility] Comment on above: Performed By: #### S CAN CBC, MG, CMP, PHOS ####[address] [place] [address] [place] Creatinine Clr Calc Pharmacy 12.13 Normal [facility] Comment on above: Performed By: #### S CAN CBC, MG, CMP, PHOS ####[address] GFR/1.73 sq M.predicted MDRD (S/P/Bld) [Vol rate/Area] 10.090 mL/min/{1.73_m2} Normal [facility] Comment on above: Performed By: #### S CAN CBC, MG, CMP, PHOS ####[address] Globulin (S) [Mass/Vol] 3.1 g/dL Normal T he [facility] Comment on above: Performed By: #### S CAN CBC, MG, CMP, PHOS ####[address] Glucose [Mass/Vol] 131 mg/dL High 70-100 [facility] Comment on above: Result Comment: [facility] [place] Glucose Reference Range is dependent on time and content of last meal. Glucose of more than 200 mg/dL in a nonstressed, ambulatory subject supports the diagnosis of Diabetes Mellitus. ADA recommended reference range Performed By: #### S CAN CBC, MG, CMP, PHOS ####[address] Potassium [Moles/Vol] 3.4 mmol/L Low 3.5-5.1 [facility] Comment on above: Performed By: #### S CAN CBC, MG, CMP, PHOS ####[address] Protein [Mass/Vol] 5.6 g/dL Low 6.4-8.9 [facility] Comment on above: Performed By: #### S CAN CBC, MG, CMP, PHOS ####[address] Sodium [Moles/Vol] 130 mmol/L Low 136-145 [facility] Comment on above: Performed By: #### S CAN CBC, MG, CMP, PHOS ####[address] Urea nitrogen [Mass/Vol] 56 mg/dL High 7-25 [facility] Comment on above: Performed By: #### S CAN CBC, MG, CMP, PHOS ####[address] Dipstick and Microscopicon 0 05-09-2025 Appearance (U) Turbid Critically abnormal Clear [facility] Comment on above: Order Comment: Name Collection Type:: Clean-Voided Midstream Performed By: #### C UU, ADDONUAPLUS ####[address] Bacteria,Urine 4+ [HPF] Normal None Seen [facility] Comment on above: Order Comment: Name Collection Type:: Clean-Voided Midstream Performed By: #### C UU, ADDONUAPLUS ####[address] Bilirubin,Urine Negative Normal Negative [facility] Comment on above: Order Comment: Name Collection Type:: Clean-Voided Midstream Performed By: #### C UU, ADDONUAPLUS ####[address] Color (U) Yellow Normal Yellow [facility] Comment on above: Order Comment: Name Collection Type:: Clean-Voided Midstream Performed By: #### C UU, ADDONUAPLUS ####[address] Glucose Ql (U) 50 mg/dL Normal Normal [facility] Comment on above: Order Comment: Name Collection Type:: Clean-Voided Midstream Performed By: #### C UU, ADDONUAPLUS ####[address] Hyaline Casts,Urine None Normal 0-8 [facility] Comment on above: Order Comment: Name Collection Type:: Clean-Voided Midstream Performed By: #### C UU, ADDONUAPLUS ####[address] [address] [facility] Ketones Ql (U) 1+ Normal Negative [facility] Comment on above: Order Comment: Name Collection Type:: Clean-Voided Midstream Performed By: #### C UU, ADDONUAPLUS ####[address] [address] [facility] Leukocyte esterase Test strip Ql (U) 4+ Normal Negative [facility] Comment on above: Order Comment: Name Collection Type:: Clean-Voided Midstream Performed By: #### C UU, ADDONUAPLUS ####[address] [address] [facility] Mucus,Urine 2+ [LPF] Critically abnormal [facility] Comment on above: Order Comment: Name Collection Type:: Clean-Voided Midstream Result Comment: PERF ORMED BY:[address] [place] [id number] MEDICAL TONYA LEE M.D. Performed By: #### C UU, ADDONUAPLUS ####[address] [address] [facility] Nitrite,Urine Negative Normal Negative [facility] Comment on above: Order Comment: Name Collection Type:: Clean-Voided Midstream Performed By: #### C UU, ADDONUAPLUS ####[address] [address] [facility] Occult Blood,Urine 1+ Normal Negative [facility] Comment on above: Order Comment: Name Collection Type:: Clean-Voided Midstream Result Comment: PERF ORMED BY:[address] [place], [place] [phone] MEDICAL TONYA LEE M.D. Performed By: #### C UU, ADDONUAPLUS ####[address] [address] [facility] pH (U) 7.5 [pH] Normal 5.0-9.0 [facility] Comment on above: Order Comment: Name Collection Type:: Clean-Voided Midstream Performed By: #### C UU, ADDONUAPLUS ####[address] Protein (U) [Mass/Vol] 100 mg/dL Normal Negative Th e [facility] Comment on above: Order Comment: Name Collection Type:: Clean-Voided Midstream Performed By: #### C UU, ADDONUAPLUS ####[address] RBC,Urine 50-100 Normal 0-4 [facility] Comment on above: Order Comment: Name Collection Type:: Clean-Voided Midstream Performed By: #### C UU, ADDONUAPLUS ####[address] Specificy [place],Urine 1.018 Normal 1.00 1-1.03 0 [facility] Comment on above: Order Comment: Name Collection Type:: Clean-Voided Midstream Performed By: #### C UU, ADDONUAPLUS ####[address] Squamous Epithelial Cell,Urine 5-9 Normal 0-2 [facility] Comment on above: Order Comment: Name Collection Type:: Clean-Voided Midstream Performed By: #### C UU, ADDONUAPLUS ####[address] Urobilinogen,Urine Normal Normal Normal [facility] Comment on above: Order Comment: Name Collection Type:: Clean-Voided Midstream Performed By: #### C UU, ADDONUAPLUS ####[address] WBC CLUMP, Urine Many Normal None Seen [facility] Comment on above: Order Comment: Name Collection Type:: Clean-Voided Midstream Performed By: #### C UU, ADDONUAPLUS ####[place] [id number] [facility] WBC,Urine Innumerable Normal 0-4 [facility] Comment on above: Order Comment: Name Collection Type:: Clean-Voided Midstream Performed By: #### C UU, ADDONUAPLUS ####[place] [address] [place] [id number] [facility] White Blood Cell Casts,Urine 1-2 Normal None Seen [facility] Comment on above: Order Comment: Name Collection Type:: Clean-Voided Midstream Performed By: #### C UU, ADDONUAPLUS ####[place] [id number] [facility] Glucose Poct Glucometerson 0 05-09-2025 Glucose [Mass/Vol] 180 mg/dL Normal [facility] Comment on above: Result Comment: [facility] [place] Glucose Reference Range is dependent on time and content of last meal. Glucose of more than 200 mg/dL in a nonstressed, ambulatory subject supports the diagnosis of Diabetes Mellitus.PERFORMED BY:[address] [place], [place] [phone] MEDICAL TONYA LEE M.D. Performed By: #### G LULS ####Point of Care testing, Glucose [Mass/Vol] 120 mg/dL Normal [facility] Comment on above: Result Comment: [facility] [place] Glucose Reference Range is dependent on time and content of last meal. Glucose of more than 200 mg/dL in a nonstressed, ambulatory subject supports the diagnosis of Diabetes Mellitus.PERFORMED BY:[address] [place], [place] [phone] MEDICAL TONYA LEE M.D. Performed By: #### G LULS ####Point of Care testing, Glucose [Mass/Vol] 136 mg/dL Normal [facility] Comment on above: Result Comment: [facility] [place] Glucose Reference Range is dependent on time and content of last meal. Glucose of more than 200 mg/dL in a nonstressed, ambulatory subject supports the diagnosis of Diabetes Mellitus.PERFORMED BY:[address] [place], [place] [phone] IONA LEE M.D. Performed By: #### G LULS ####Point of Care testing, Glucose [Mass/Vol] 134 mg/dL Normal [facility] Comment on above: Result Comment: [facility] [place] Glucose Reference Range is dependent on time and content of last meal. Glucose of more than 200 mg/dL in a nonstressed, ambulatory subject supports the diagnosis of Diabetes Mellitus.PERFORMED BY:[place] [address] [address] [place], [place] [phone] MEDICAL DIRECTORLANDRY LEE M.D. Performed By: #### G LUMAYELIN ####Point of Care testing, LeukoReduced RBCon LeukoReduced RBC TRANSFUSED 05/09/25 0749 Normal [facility] Magnesiumon 05-09-2025 Magnesium [Mass/Vol] 1.8 mg/dL Low 1.9-2.7 [facility] Comment on above: Result Comment: PERF ORMED BY:[place] [address] [address] [place], [place] [phone] MEDICAL DIRECTORLANDRY LEE M.D. Performed By: #### S CAN CBC, MG, CMP, PHOS ####[address] Phosphoruson 05-09-2025 Phosphate [Mass/Vol] 3.2 mg/dL Normal 2.5-4.5 [facility] Comment on above: Performed By: #### S CAN CBC, MG, CMP, PHOS ####[address] Scan and CBCon 05-09-2025 Anisocytosis Ql (Bld) Marked Normal [facility] Comment on above: Performed By: #### S CAN CBC, MG, CMP, PHOS ####[place] [id number] [facility] Basophils (Bld) [#/Vol] 0.1 10*3/uL Normal 0.0-0.2 [facility] Comment on above: Performed By: #### S CAN CBC, MG, CMP, PHOS ####[address] Basophils/100 WBC (Bld) 0.5 % Normal . T he [facility] Comment on above: Performed By: #### S CAN CBC, MG, CMP, PHOS ####[address] Eosinophils (Bld) [#/Vol] 0.1 10*3/uL Normal 0.0-0.45 [facility] Comment on above: Performed By: #### S CAN CBC, MG, CMP, PHOS ####[address] Eosinophils/100 WBC (Bld) 0.7 % Normal . [facility] Comment on above: Performed By: #### S CAN CBC, MG, CMP, PHOS ####[address] Erythrocyte distribution width (RBC) [Ratio] 21.5 % High 11.9-15.3 [facility] Comment on above: Performed By: #### S CAN CBC, MG, CMP, PHOS ####[address] Hematocrit (Bld) [Volume fraction] 20.5 % Low 34.0-46.4 [facility] Comment on above: Performed By: #### S CAN CBC, MG, CMP, PHOS ####[address] Hemoglobin (Bld) [Mass/Vol] 6.1 g/dL Low 11.8-15.4 [facility] Comment on above: Performed By: #### S CAN CBC, MG, CMP, PHOS ####[address] Hypochromasia Moderate Normal [facility] Comment on above: Performed By: #### S CAN CBC, MG, CMP, PHOS ####[address] Lymphocytes (Bld) [#/Vol] 1.9 10*3/uL Normal 1.00-4.8 [facility] Comment on above: Performed By: #### S CAN CBC, MG, CMP, PHOS ####[address] Lymphocytes/100 WBC (Bld) 9.3 % Normal . [facility] Comment on above: Performed By: #### S CAN CBC, MG, CMP, PHOS ####[address] MCH (RBC) [Entitic mass] 21.4 pg Low 24.7-34.3 [facility] Comment on above: Performed By: #### S CAN CBC, MG, CMP, PHOS ####[address] MCV (RBC) [Entitic vol] 71.6 fL Low 80-100 [facility] Comment on above: Performed By: #### S CAN CBC, MG, CMP, PHOS ####[address] Mean Corpuscular HGB Conc 29.9 g/dL Low 32.0-35.0 [facility] Comment on above: Performed By: #### S CAN CBC, MG, CMP, PHOS ####[address] Microcytosis Slight Normal [facility] Comment on above: Performed By: #### S CAN CBC, MG, CMP, PHOS ####[address] Monocytes (Bld) [#/Vol] 1.8 10*3/uL High 0.0-0.8 [facility] Comment on above: Performed By: #### S CAN CBC, MG, CMP, PHOS ####[address] Monocytes/100 WBC (Bld) 9.0 % Normal . [facility] Comment on above: Performed By: #### S CAN CBC, MG, CMP, PHOS ####[address] Neutrophils (Bld) [#/Vol] 16.4 10*3/uL High 1.8-7.7 [facility] Comment on above: Performed By: #### S CAN CBC, MG, CMP, PHOS ####[address] Neutrophils/100 WBC (Bld) 80.5 % Normal . [facility] Comment on above: Performed By: #### S CAN CBC, MG, CMP, PHOS ####[address] NRBC% 0.1 /100{WBC} Normal 0-0.5 [facility] Comment on above: Performed By: #### S CAN CBC, MG, CMP, PHOS ####[address] Platelet Estimate Normal Normal Normal [facility] Comment on above: Performed By: #### S CAN CBC, MG, CMP, PHOS ####[address] Platelet mean volume (Bld) [Entitic vol] 7.5 fL Normal 6.3-10.7 [facility] Comment on above: Performed By: #### S CAN CBC, MG, CMP, PHOS ####[address] Platelet Morphology Normal Normal Normal [facility] Comment on above: Result Comment: PERF ORMED BY:[address] [place], [place] [phone] MEDICAL TONYA LEE M.D. Performed By: #### S CAN CBC, MG, CMP, PHOS ####[address] Platelets (Bld) [#/Vol] 318 10*3/uL Normal 150-450 [facility] Comment on above: Performed By: #### S CAN CBC, MG, CMP, PHOS ####[address] Polychromasia Slight Normal [facility] Comment on above: Performed By: #### S CAN CBC, MG, CMP, PHOS ####[place] [address] RBC (Bld) [#/Vol] 2.87 10*6/uL Low 3.60-5.00 [facility] Comment on above: Performed By: #### S CAN CBC, MG, CMP, PHOS ####[address] WBC (Bld) [#/Vol] 20.3 10*3/uL High 3.8-11.6 [facility] Comment on above: Performed By: #### S CAN CBC, MG, CMP, PHOS ####[address] White Blood Count 20.3 [CFU]/mL High 3.8-11.6 [facility] Comment on above: Performed By: #### S CAN CBC, MG, CMP, PHOS ####[address] Type and Screenon 05-09-2025 ABO and Rh group Nom (Bld) Blood group A Rh(D) positive Normal [facility] Comment on above: Order Comment: Trans fuse now? Y Number of units to transfuse now? 1 Transfuse now? Y Number of units to transfuse now? 1 Result Comment: PERF ORMED BY:[address] [place], [place] [phone] MEDICAL DIRECTORLANDRY LEE M.D. Urine Cultureon 05-09-2025 Bacteria identified Cx Nom (U) Normal [facility] Comment on above: Performed By: #### C UU, ADDONUAPLUS ####[address] Alanine aminotransferase [En zymatic activity/volume] in Serum or PlasmaOrdered By: Oh Landa on 05-08-2025 ALT [Catalytic activity/Vol] 9 U/L Normal 7-52 [facility] Comment on above: Performed By: #### C UBLD, CBC, PTT, PT, CMP, BNP, CK, HS TROP, LACTIC ####[place] [address] [place] [id number] [facility] Albumin [Mass/volume] in Ser um or Plasma by Bromocresol green (BCG) dye binding methoOrdered By: Oh Landa on 05-08-2025 Albumin BCG dye [Mass/Vol] 2.7 g/dL Low 3.5-5.7 [facility] Alkaline phosphatase [Enzyma tic activity/volume] in Serum or PlasmaOrdered By: Oh Landa on 05-08-2025 ALP [Catalytic activity/Vol] 156 U/L High 34-104 [facility] Comment on above: Performed By: #### C UBLD, CBC, PTT, PT, CMP, BNP, CK, HS TROP, LACTIC ####[place] [address] Aspartate aminotransferase [ Enzymatic activity/volume] in Serum or PlasmaOrdered By: Oh Landa on 05-08-2025 AST [Catalytic activity/Vol] 12 U/L Low 13-39 [facility] Comment on above: Performed By: #### C UBLD, CBC, PTT, PT, CMP, BNP, CK, HS TROP, LACTIC ####[address] BNP ser/plasOrdered By: Tammy Landa on 05-08-2025 Natriuretic peptide B (Bld) [Mass/Vol] 643.0 pg/mL High 5-100 [facility] Comment on above: Result Comment: PERF ORMED BY:[address] [place], [place] [phone] MEDICAL TONYA LEE M.D. Performed By: #### C UBLD, CBC, PTT, PT, CMP, BNP, CK, HS TROP, LACTIC ####[address] Basophils [#/volume] in Bloo d by Automated countOrdered By: Oh Landa on 05-08-2025 Basophils (Bld) [#/Vol] 0.2 10*3/uL Normal 0.0-0.2 [facility] Comment on above: Result Comment: PERF ORMED BY:[facility], [place] [id number] MEDICAL DIRECTORLANDRY LEE M.D. Performed By: #### C UBLD, CBC, PTT, PT, CMP, BNP, CK, HS TROP, LACTIC ####[address] [address] [facility] Basophils/100 leukocytes in Blood by Automated countOrdered By: Oh Landa on 05-08-2025 Basophils/100 WBC (Bld) 1.0 % Normal . [facility] Comment on above: Performed By: #### C UBLD, CBC, PTT, PT, CMP, BNP, CK, HS TROP, LACTIC ####[place] [id number] [facility] Bilirubin.total [Mass/volume ] in Serum or PlasmaOrdered By: Oh Landa on 05-08-2025 Bilirubin [Mass/Vol] 0.5 mg/dL Normal 0.3-1.0 [facility] Comment on above: Performed By: #### C UBLD, CBC, PTT, PT, CMP, BNP, CK, HS TROP, LACTIC ####[place] [id number] [facility] Blood Cultureon 05-08-2025 Bacteria identified Cx Nom (Bld) NO GROWTH 5 DAYS PERFORMED BY: [facility] [address] [place] [address] PATHOLOGIST SEAL MIXER LANDRY LEE M.D. Normal [facility] Comment on above: Performed By: #### C UBLD, CBC, PTT, PT, CMP, BNP, CK, HS TROP, LACTIC ####[address] [address] [facility] CT abdomen pelvis w conon CT abdomen pelvis w con Normal T [facility] Calcium [Mass/volume] in Ser um or PlasmaOrdered By: Oh Landa on 05-08-2025 Calcium [Mass/Vol] 8.9 mg/dL Normal 8.6-10.3 [facility] Comment on above: Performed By: #### C UBLD, CBC, PTT, PT, CMP, BNP, CK, HS TROP, LACTIC ####[address] Carbon dioxide, total [Moles /volume] in Serum or PlasmaOrdered By: Oh Landa on 05-08-2025 CO2 [Moles/Vol] 26.6 mmol/L Normal 21.0-31.0 [facility] Comment on above: Performed By: #### C UBLD, CBC, PTT, PT, CMP, BNP, CK, HS TROP, LACTIC ####[address] Chloride [Moles/volume] in S augustin or PlasmaOrdered By: Oh Landa on 05-08-2025 Chloride [Moles/Vol] 93 mmol/L Low 98-107 [facility] Comment on above: Performed By: #### C UBLD, CBC, PTT, PT, CMP, BNP, CK, HS TROP, LACTIC ####[address] Complete Blood Count Auto Di ffon 05-08-2025 Mean Corpuscular HGB Conc 29.7 g/dL Low 32.0-35.0 [facility] Comment on above: Performed By: #### C UBLD, CBC, PTT, PT, CMP, BNP, CK, HS TROP, LACTIC ####[address] Monocytes/100 WBC (Bld) 23.71 % High 0.00-20.00 [facility] Comment on above: Result Comment: For adults in ED, MDW > 20.0 may be associated with a higher risk of sepsis during the first 12 hrs of hospital admission Performed By: #### C UBLD, CBC, PTT, PT, CMP, BNP, CK, HS TROP, LACTIC ####[address] NRBC% 0.1 /100{WBC} Normal 0-0.5 [facility] Comment on above: Performed By: #### C UBLD, CBC, PTT, PT, CMP, BNP, CK, HS TROP, LACTIC ####[place] [id number] [facility] White Blood Count 18.5 [CFU]/mL High 3.8-11.6 [facility] Comment on above: Performed By: #### C UBLD, CBC, PTT, PT, CMP, BNP, CK, HS TROP, LACTIC ####[place] [id number] [facility] Comprehensive Metabolic Pane christiano 05-08-2025 Albumin [Mass/Vol] 2.7 g/dL Low 3.5-5.7 [facility] Comment on above: Performed By: #### C UBLD, CBC, PTT, PT, CMP, BNP, CK, HS TROP, LACTIC ####[address] Creatinine Clr Calc Pharmacy 13.92 Normal [facility] Comment on above: Result Comment: PERF ORMED BY:[address] [place], [place] [phone] MEDICAL DIRECTORLANDRY LEE M.D. Performed By: #### C UBLD, CBC, PTT, PT, CMP, BNP, CK, HS TROP, LACTIC ####[place] [id number] [facility] GFR/1.73 sq M.predicted MDRD (S/P/Bld) [Vol rate/Area] 10.269 mL/min/{1.73_m2} Normal [facility] Comment on above: Performed By: #### C UBLD, CBC, PTT, PT, CMP, BNP, CK, HS TROP, LACTIC ####[place] [id number] [facility] Creatine kinase [Enzymatic a ctivity/volume] in Serum or PlasmaOrdered By: Oh Landa on 05-08-2025 CK [Catalytic activity/Vol] 22 U/L Low 30-223 [facility] Comment on above: Performed By: #### C UBLD, CBC, PTT, PT, CMP, BNP, CK, HS TROP, LACTIC ####[address] Creatinine [Mass/volume] in Serum or PlasmaOrdered By: Oh Landa on 05-08-2025 Creatinine [Mass/Vol] 4.77 mg/dL High 0.60-1.20 [facility] Comment on above: Performed By: #### C UBLD, CBC, PTT, PT, CMP, BNP, CK, HS TROP, LACTIC ####[address] Eosinophils [#/volume] in Bl ood by Automated countOrdered By: Oh Landa on 05-08-2025 Eosinophils (Bld) [#/Vol] 0.1 10*3/uL Normal 0.0-0.45 [facility] Comment on above: Performed By: #### C UBLD, CBC, PTT, PT, CMP, BNP, CK, HS TROP, LACTIC ####[address] Eosinophils/100 leukocytes i n Blood by Automated countOrdered By: Oh Landa on 05-08-2025 Eosinophils/100 WBC (Bld) 0.6 % Normal . [facility] Comment on above: Performed By: #### C UBLD, CBC, PTT, PT, CMP, BNP, CK, HS TROP, LACTIC ####[address] Erythrocyte distribution wid th [Ratio] by Automated countOrdered By: Oh Landa on 05-08-2025 Erythrocyte distribution width (RBC) [Ratio] 21.2 % High 11.9-15.3 [facility] Comment on above: Performed By: #### C UBLD, CBC, PTT, PT, CMP, BNP, CK, HS TROP, LACTIC ####[address] Erythrocytes [#/volume] in B lood by Automated countOrdered By: Oh Landa on 05-08-2025 RBC (Bld) [#/Vol] 3.22 10*6/uL Low 3.60-5.00 [facility] Comment on above: Performed By: #### C UBLD, CBC, PTT, PT, CMP, BNP, CK, HS TROP, LACTIC ####[facility] [place] [address] [facility] Glucose Poct Glucometerson 0 05-08-2025 Glucose [Mass/Vol] 196 mg/dL Normal [facility] Comment on above: Result Comment: Rush om Glucose Reference Range is dependent on time and content of last meal. Glucose of more than 200 mg/dL in a nonstressed, ambulatory subject supports the diagnosis of Diabetes Mellitus.PERFORMED BY:[address] [place], [place] [phone] MEDICAL TONYA LEE M.D. Performed By: #### G SOLO ####Point of Care testing, Glucose [Mass/volume] in Ser um or PlasmaOrdered By: Oh Landa on 05-08-2025 Glucose [Mass/Vol] 143 mg/dL High 70-100 [facility] Comment on above: ADA recommended refe rence rangeRandom Glucose Reference Range is dependent on time and content of last meal. Glucose of more than 200 mg/dL in a nonstressed, ambulatory subject supports the diagnosis of Diabetes Mellitus. Result Comment: Rush om Glucose Reference Range is dependent on time and content of last meal. Glucose of more than 200 mg/dL in a nonstressed, ambulatory subject supports the diagnosis of Diabetes Mellitus. ADA recommended reference range Performed By: #### C UBLD, CBC, PTT, PT, CMP, BNP, CK, HS TROP, LACTIC ####[place] [address] [place] [address] [facility] Hematocrit [Volume Fraction] of Blood by Automated countOrdered By: Oh Landa on 05-08-2025 Hematocrit (Bld) [Volume fraction] 23.2 % Low 34.0-46.4 [facility] Comment on above: Performed By: #### C UBLD, CBC, PTT, PT, CMP, BNP, CK, HS TROP, LACTIC ####[address] [address] [facility] Hemoglobin [Mass/volume] in BloodOrdered By: Oh Landa on 05-08-2025 Hemoglobin (Bld) [Mass/Vol] 6.9 g/dL Low 11.8-15.4 [facility] Comment on above: Performed By: #### C UBLD, CBC, PTT, PT, CMP, BNP, CK, HS TROP, LACTIC ####[facility] [place] [address] [facility] INR in Platelet poor plasma by Coagulation assayOrdered By: Oh Landa on 05-08-2025 INR Coag (PPP) [Relative time] 1.3 {INR} Normal [facility] Comment on above: INR Therapeutic Rang e A) Pre- and Peroperative OAT started two weeks before surgery. NOT HIP SURGERY: 1.5 - 2.5 HIP SURGERY: 2 - 3B) Primary and secondary prevention of venous THROMBOSIS: 2 - 3C) Active venous thrombosis, pulmonary embolismand prevention of recurrent venous thrombosis: 2 - 3D) Prevention of arterial thromboembolismincluding patients with mechanical heart valves: 3 - 4.5 Result Comment: INR Therapeutic Range A) Pre- and Peroperative OAT started two weeks before surgery. NOT HIP SURGERY: 1.5 - 2.5 HIP SURGERY: 2 - 3 B) Primary and secondary prevention of venous THROMBOSIS: 2 - 3 C) Active venous thrombosis, pulmonary embolism and prevention of recurrent venous thrombosis: 2 - 3 D) Prevention of arterial thromboembolism including patients with mechanical heart valves: 3 - 4.5 Performed By: #### C UBLD, CBC, PTT, PT, CMP, BNP, CK, HS TROP, LACTIC ####[place] [address] [place] [address] [facility] Lactate [Moles/volume] in Se rum or PlasmaOrdered By: Oh Landa on 05-08-2025 Lactate [Moles/Vol] 0.7 mmol/L Normal 0.5-1.9 [facility] Comment on above: Lactic Acid referenc e range has been updated to 0.5 1.9 mmol/L and the critical range of 2.0 or greater. Result Comment: Lact ic Acid reference range has been updated to 0.5 ? 1.9 mmol/L and the critical range of 2.0 or greater.PERFORMED BY:[address] [place], [place] [phone] MEDICAL DIRECTORLANDRY LEE M.D. Performed By: #### C UBLD, CBC, PTT, PT, CMP, BNP, CK, HS TROP, LACTIC ####[address] Leukocytes [#/volume] correc alyssa for nucleated erythrocytes in Blood by Automated counOrdered By: Oh Landa on 05-08-2025 WBC corrected for nucl RBC Auto (Bld) [#/Vol] 18.5 10*3/uL High 3.8-11.6 [facility] Leukocytes [#/volume] in Blo od by Automated countOrdered By: Oh Landa on 05-08-2025 WBC (Bld) [#/Vol] 18.5 10*3/uL High 3.8-11.6 [facility] Comment on above: Performed By: #### C UBLD, CBC, PTT, PT, CMP, BNP, CK, HS TROP, LACTIC ####[address] Lymphocytes [#/volume] in Bl ood by Automated countOrdered By: Oh Landa on 05-08-2025 Lymphocytes (Bld) [#/Vol] 1.9 10*3/uL Normal 1.00-4.8 [facility] Comment on above: Performed By: #### C UBLD, CBC, PTT, PT, CMP, BNP, CK, HS TROP, LACTIC ####[address] Lymphocytes/100 leukocytes i n Blood by Automated countOrdered By: Oh Landa on 05-08-2025 Lymphocytes/100 WBC (Bld) 10.6 % Normal . [facility] Comment on above: Performed By: #### C UBLD, CBC, PTT, PT, CMP, BNP, CK, HS TROP, LACTIC ####[address] MCH [Entitic mass] by Automa alyssa countOrdered By: Oh Landa on 05-08-2025 MCH (RBC) [Entitic mass] 21.4 pg Low 24.7-34.3 [facility] Comment on above: Performed By: #### C UBLD, CBC, PTT, PT, CMP, BNP, CK, HS TROP, LACTIC ####[place] [address] MCHC Auto (RBC) [Mass/Vol]Or dered By: Oh Landa on 05-08-2025 MCHC (RBC) [Mass/Vol] 29.7 g/dL Low 32.0-35.0 [facility] MCV [Entitic volume] by Auto mated countOrdered By: Oh Landa on 05-08-2025 MCV (RBC) [Entitic vol] 72.1 fL Low 80-100 [facility] Comment on above: Performed By: #### C UBLD, CBC, PTT, PT, CMP, BNP, CK, HS TROP, LACTIC ####[address] Monocyte distribution width [Entitic volume] in Blood by AutomatedOrdered By: Oh Landa on 05-08-2025 Monocyte distribution width Auto (Bld) [Entitic vol] 23.71 % High 0.00-20.00 [facility] Comment on above: For adults in ED, MD W > 20.0 may be associated with a higher risk of sepsis during the first 12 hrs of hospital admission Monocytes [#/volume] in Bloo d by Automated countOrdered By: Oh Landa on 05-08-2025 Monocytes (Bld) [#/Vol] 1.1 10*3/uL High 0.0-0.8 [facility] Comment on above: Performed By: #### C UBLD, CBC, PTT, PT, CMP, BNP, CK, HS TROP, LACTIC ####[address] Monocytes/100 leukocytes in Blood by Automated countOrdered By: Oh Landa on 05-08-2025 Monocytes/100 WBC (Bld) 6.1 % Normal . [facility] Comment on above: Performed By: #### C UBLD, CBC, PTT, PT, CMP, BNP, CK, HS TROP, LACTIC ####[address] Neutrophils [#/volume] in Bl ood by Automated countOrdered By: Oh Landa on 05-08-2025 Neutrophils (Bld) [#/Vol] 15.1 10*3/uL High 1.8-7.7 [facility] Comment on above: Performed By: #### C UBLD, CBC, PTT, PT, CMP, BNP, CK, HS TROP, LACTIC ####[place] [address] Neutrophils/100 leukocytes i n Blood by Automated countOrdered By: Oh Landa on 05-08-2025 Neutrophils/100 WBC (Bld) 81.7 % Normal . [facility] Comment on above: Performed By: #### C UBLD, CBC, PTT, PT, CMP, BNP, CK, HS TROP, LACTIC ####[place] [address] No Panel InformationOrdered By: Oh Landa on 05-08-2025 Estimated GFR (CKD-EPI) 10.269 mL/Min [facility] Creatinine Clearance (Chem 13.92 [facility] Nucleated erythrocytes [Pres ence] in Blood by Automated countOrdered By: Oh Landa on 05-08-2025 Nucleated RBC Auto Ql (Bld) 0.1 /100{WBC} 0-0.5 [facility] Partial Thromboplastin Timeo n 05-08-2025 aPTT Coag (Bld) [Time] 36.6 s High 25.1-36.5 [facility] Comment on above: Result Comment: A he matocrit value greater than 55% may lead to inaccurate results in coagulation testing. Patients having hematocrit values >55% require a special collection tube for coagulation studies. Please contact the laboratory at [phone] for redraw instructions.PERFORMED BY:[place] [address] [place], [place] [phone] MEDICAL DIRECTORLANDRY LEE M.D. Performed By: #### C UBLD, CBC, PTT, PT, CMP, BNP, CK, HS TROP, LACTIC ####[address] Platelet mean volume [Entiti c volume] in Blood by Automated countOrdered By: Oh Landa on 05-08-2025 Platelet mean volume (Bld) [Entitic vol] 7.5 fL Normal 6.3-10.7 [facility] Comment on above: Performed By: #### C UBLD, CBC, PTT, PT, CMP, BNP, CK, HS TROP, LACTIC ####[address] [address] [place] [address] [facility] Platelets [#/volume] in Bloo d by Automated countOrdered By: Oh Landa on 05-08-2025 Platelets (Bld) [#/Vol] 362 10*3/uL Normal 150-450 [facility] Comment on above: Performed By: #### C UBLD, CBC, PTT, PT, CMP, BNP, CK, HS TROP, LACTIC ####[address] [address] [facility] Potassium [Moles/volume] in Serum or PlasmaOrdered By: Oh Landa on 05-08-2025 Potassium [Moles/Vol] 3.4 mmol/L Low 3.5-5.1 [facility] Comment on above: Performed By: #### C UBLD, CBC, PTT, PT, CMP, BNP, CK, HS TROP, LACTIC ####[address] [address] [facility] Protein [Mass/volume] in Ser um or PlasmaOrdered By: Oh Landa on 05-08-2025 Protein [Mass/Vol] 6.8 g/dL Normal 6.4-8.9 [facility] Comment on above: Performed By: #### C UBLD, CBC, PTT, PT, CMP, BNP, CK, HS TROP, LACTIC ####[address] [address] [facility] Prothrombin time (PT)Ordered By: Oh Landa on 05-08-2025 PT Coag (PPP) [Time] 15.2 s High 9.0-12.9 [facility] Comment on above: A hematocrit value g reater than 55% may lead to inaccurate results in coagulation testing. Patients having hematocrit values >55% require a special collection tube for coagulation studies. Please contact the laboratory at [phone] for redraw instructions. Result Comment: A he matocrit value greater than 55% may lead to inaccurate results in coagulation testing. Patients having hematocrit values >55% require a special collection tube for coagulation studies. Please contact the laboratory at [phone] for redraw instructions. Performed By: #### C UBLD, CBC, PTT, PT, CMP, BNP, CK, HS TROP, LACTIC ####[address] Serum globulin measurement b y calculation (mass/volume)Ordered By: Oh Landa on 05-08-2025 Globulin (S) [Mass/Vol] 4.1 g/dL Normal [facility] Comment on above: Performed By: #### C UBLD, CBC, PTT, PT, CMP, BNP, CK, HS TROP, LACTIC ####[address] Serum or plasma albumin/glob ulin mass ratioOrdered By: Oh Landa on 05-08-2025 Albumin/Globulin [Mass ratio] 0.7 {ratio} Normal [facility] Comment on above: Performed By: #### C UBLD, CBC, PTT, PT, CMP, BNP, CK, HS TROP, LACTIC ####[address] Serum or plasma anion gap de terminationOrdered By: Oh Landa on 05-08-2025 Anion gap [Moles/Vol] 14.8 mmol/L Normal 6.0-15.0 [facility] Comment on above: Performed By: #### C UBLD, CBC, PTT, PT, CMP, BNP, CK, HS TROP, LACTIC ####[address] Sodium [Moles/volume] in Ser um or PlasmaOrdered By: Oh Landa on 05-08-2025 Sodium [Moles/Vol] 131 mmol/L Low 136-145 [facility] Comment on above: Performed By: #### C UBLD, CBC, PTT, PT, CMP, BNP, CK, HS TROP, LACTIC ####[address] [place] [address] [facility] Superficial Wound Cultureon 05-08-2025 Superficial Wound Culture Normal [facility] Comment on above: Performed By: #### C USUP ####[place] [id number] [facility] Troponin I High Sensitivityo n 05-08-2025 Troponin I High Sensitivity 18 High 0-15 [facility] Comment on above: Result Comment: The Troponin units of report have been changed to meet the Chest Pain Accreditation requirement, element EC5.M1l2. Troponin units are changed from pg/ml to ng/L. Also, the decimal is removed and results are in whole numbers.PERFORMED BY:[address] [phone] MEDICAL DIRECTORLANDRY LEE M.D. Performed By: #### C UBLD, CBC, PTT, PT, CMP, BNP, CK, HS TROP, LACTIC ####[place] [id number] [facility] Troponin I.cardiac [Mass/vol ume] in Serum or Plasma by Detection limit <= 0.01 ng/mLOrdered By: Oh Landa on 05-08-2025 Troponin I.cardiac DL <= 0.01 ng/mL [Mass/Vol] 18 ng/L High 0-15 [facility] Comment on above: The Troponin units o f report have been changed to meet the Chest Pain Accreditation requirement, element EC5.M1l2. Troponin units are changed from pg/ml to ng/L. Also, the decimal is removed and results are in whole numbers. Urea nitrogen [Mass/volume] in Serum or PlasmaOrdered By: Oh Landa on 05-08-2025 Urea nitrogen [Mass/Vol] 50 mg/dL High 7-25 [facility] Comment on above: Performed By: #### C UBLD, CBC, PTT, PT, CMP, BNP, CK, HS TROP, LACTIC ####[place] [id number] [facility] X-ray reportOrdered By: Pancho Lilly on 05-08-2025 Study report [facility] [address] [place] [address] [id number] XRay Report Signed Patient: Sourav Roque MR#: [id number] : 1970 Acct:[id number] Age/Sex: 55 / F ADM Date: Loc: ER Room: Type: [facility] ER Attending Dr: Copies to: Oh Landa PA-C~ Ordering Provider: Oh Landa PA-C Date of Service: 05/08/25 XR/XR chest 2V*: Recheck/Abnormal Lab/Rx XR chest 2V* 05/08/2025 5:21 PM SIGNS AND SYMPTOMS: This dialysis, abdominal source PROTOCOL: Frontal and lateral radiographs of the chest COMPARISON: 02/24/2025 FINDINGS: The trachea is midline. There is a dual lumen tunneled right IJ catheter similar to the prior exam. The heart and mediastinal structures are within normal limits. There is a small left-sided pleural effusion. The lung parenchyma is clear. The bony thorax is intact. XR/XR chest 2V* IMPRESSION: There is a similar small left-sided pleural effusion. Unchanged right-sided dialysis catheter. Impression dictated by: Pancho Lilly M.D. 05/08/2025 5:38 PM Dictation Location: [place] [address] Transcribed By: [facility] 05/08/251737 Dictated By: Pancho Lilly II, MD 05/08/251734 Signed By: 05/08/251737 [facility] Work Phone: XR chest 2V*on 05-08-2025 XR chest 2V* Normal [facility] aPTT in Platelet poor plasma by Coagulation assayOrdered By: Oh Landa on 05-08-2025 aPTT Coag (PPP) [Time] 36.6 s High 25.1-36.5 [facility] Comment on above: A hematocrit value g reater than 55% may lead to inaccurate results in coagulation testing. Patients having hematocrit values >55% require a special collection tube for coagulation studies. Please contact the laboratory at [phone] for redraw instructions. US map hemodial access BILon 04-21-2025 US map hemodial access SILVINA Normal [facility] Laboratory - Hematology and Cell countson 04-17-2025 HbA1c (Bld) [Mass fraction] 5.9 % [facility] No Panel Informationon 04-17 [facility] Basic Metabolic Panelon 03-26 Creatinine Clr Calc Pharmacy 10.66 Normal [facility] Comment on above: Result Comment: PERF ORMED BY:[address] [place], [place] [phone] MEDICAL TONYA LEE M.D. Performed By: #### B MP ####[address] [address] [facility] Estimated GFR 8.452 mL/Min Normal [facility] Comment on above: Performed By: #### B MP ####[address] [address] [facility] Basophils Auto (Bld) [#/Vol] Ordered By: Osvaldo Pete on 04-04-2025 Basophils (Bld) [#/Vol] Automated basophil count 0.0-0.2 [facility] Basophils [#/volume] in Bloo d by Automated countOrdered By: Osvaldo Pete on 04-04-2025 Basophils (Bld) [#/Vol] 0.1 10*3/uL Normal 0.0-0.2 [facility] Comment on above: Order Comment: REDRA W Result Comment: PERF ORMED BY:[address] [address] [place] [place], [place] [phone] MEDICAL TONYA LEE M.D. Performed By: #### C BC ####[address] [address] [place] Basophils/100 WBC Auto (Bld) Ordered By: Osvaldo Pete on 04-04-2025 Basophils/100 WBC (Bld) Automated basophil % . [facility] Basophils/100 leukocytes in Blood by Automated countOrdered By: Osvaldo Pete on 04-04-2025 Basophils/100 WBC (Bld) 0.8 % Normal . [facility] Comment on above: Order Comment: REDRA W Performed By: #### C BC ####[facility] [place] [address] [facility] Calcium [Mass/volume] in Ser um or PlasmaOrdered By: Osvaldo Pete on 04-04-2025 Calcium [Mass/Vol] Calcium [Mass/volume ] in Serum or Plasma 8.6-10.3 [facility] Calcium [Mass/Vol] 9.6 mg/dL Normal 8.6-10.3 [facility] Comment on above: Performed By: #### B MP ####[address] [address] [facility] Capillary blood glucose magy urement by glucometer (mass/volume)Ordered By: Juan Carlos Chavez on 04-04-2025 Glucose [Mass/Vol] 149 mg/dL Normal [facility] Comment on above: Random Glucose Refer ence Range is dependent on time and content of last meal. Glucose of more than 200 mg/dL in a nonstressed, ambulatory subject supports the diagnosis of Diabetes Mellitus. Result Comment: [facility] om Glucose Reference Range is dependent on time and content of last meal. Glucose of more than 200 mg/dL in a nonstressed, ambulatory subject supports the diagnosis of Diabetes Mellitus.PERFORMED BY:[place] [address] [address] [place], [place] [id number] MEDICAL DIRECTORLANDRY LEE M.D. Performed By: #### G SOLO ####Point of Care testing, Carbon dioxide, total [Moles /volume] in Serum or PlasmaOrdered By: Osvaldo Pete on 04-04-2025 CO2 [Moles/Vol] Carbon dioxide, tota l [Moles/volume] in Serum or Plasma Low 21.0-31.0 [facility] CO2 [Moles/Vol] 19.9 mmol/L Low 21.0-31.0 [facility] Comment on above: Performed By: #### B MP ####[facility] [place] [address] [facility] Chloride [Moles/volume] in S augustin or PlasmaOrdered By: Osvaldo Pete on 04-04-2025 Chloride [Moles/Vol] Chloride [Moles/vol ume] in Serum or Plasma Low 98-107 [facility] Chloride [Moles/Vol] 92 mmol/L Low 98-107 [facility] Comment on above: Performed By: #### B MP ####[address] Complete Blood Count Auto Di ffon 04-04-2025 Mean Corpuscular HGB Conc 31.1 g/dL Low 32.0-35.0 [facility] Comment on above: Order Comment: REDRA W Performed By: #### C BC ####[address] NRBC% 0.0 /100{WBC} Normal 0-0.5 [facility] Comment on above: Order Comment: REDRA W Performed By: #### C BC ####[address] Creatinine [Mass/volume] in Serum or PlasmaOrdered By: Osvaldo Pete on 04-04-2025 Creatinine [Mass/Vol] Creatinine [Mass/v olume] in Serum or Plasma High 0.60-1.20 [facility] Creatinine [Mass/Vol] 5.61 mg/dL High 0.60-1.20 [facility] Comment on above: Performed By: #### B MP ####[address] Eosinophils Auto (Bld) [#/Vo l]Ordered By: Osvaldo Pete on 04-04-2025 Eosinophils (Bld) [#/Vol] Automated eosinophil count 0.0-0.45 [facility] Eosinophils [#/volume] in Bl ood by Automated countOrdered By: Osvaldo Pete on 04-04-2025 Eosinophils (Bld) [#/Vol] 0.1 10*3/uL Normal 0.0-0.45 [facility] Comment on above: Order Comment: REDRA W Performed By: #### C BC ####[address] Eosinophils/100 WBC Auto (Bl d)Ordered By: Osvaldo Pete on 04-04-2025 Eosinophils/100 WBC (Bld) Automated eosinophil % . [facility] Eosinophils/100 leukocytes i n Blood by Automated countOrdered By: Osvaldo Pete on 04-04-2025 Eosinophils/100 WBC (Bld) 0.8 % Normal . [facility] Comment on above: Order Comment: REDRA W Performed By: #### C BC ####[address] Erythrocyte distribution wid th Auto (RBC) [Ratio]Ordered By: Osvaldo Pete on 04-04-2025 Erythrocyte distribution width (RBC) [Ratio] Erythrocyte distribution width [Ratio] by Automated count High 11.9-15.3 [facility] Erythrocyte distribution wid th [Ratio] by Automated countOrdered By: Osvaldo Pete on 04-04-2025 Erythrocyte distribution width (RBC) [Ratio] 16.0 % High 11.9-15.3 [facility] Comment on above: Order Comment: REDRA W Performed By: #### C BC ####[address] Erythrocytes [#/volume] in B lood by Automated countOrdered By: Osvaldo Pete on 04-04-2025 RBC (Bld) [#/Vol] 3.81 10*6/uL Normal 3.60-5.00 [facility] Comment on above: Order Comment: REDRA W Performed By: #### C BC ####[place] [id number] [facility] GLUCOSE POCT GLUCOMETERSon 0 04-04-2025 Glucose [Mass/Vol] 149 mg/dL [facility] Comment on above: Random Glucose Refer ence Range is dependent on time and content of last meal. Glucose of more than 200 mg/dL in a nonstressed, ambulatory subject supports the diagnosis of Diabetes Mellitus. [facility] COMMEMT1 Glu2: Cleaned Meter [facility] Glucose [Mass/Vol] 126 mg/dL [facility] Comment on above: Random Glucose Refer ence Range is dependent on time and content of last meal. Glucose of more than 200 mg/dL in a nonstressed, ambulatory subject supports the diagnosis of Diabetes Mellitus. [facility] Glucose Glucometer (dC) [M ass/Vol]Ordered By: Juan Carlos Chavez on 04-04-2025 Glucose [Mass/Vol] Capillary blood gluc ose measurement by glucometer (mass/volume) [facility] Comment on above: Random Glucose Refer ence Range is dependent on time and content of last meal. Glucose of more than 200 mg/dL in a nonstressed, ambulatory subject supports the diagnosis of Diabetes Mellitus. Glucose Poct Glucometerson 0 04-04-2025 Commemt1 Glu2: Cleaned Meter Normal [facility] Comment on above: Result Comment: PERF ORMED BY:[facility] [place], [place] [phone] MEDICAL DIRECTORLANDRY LEE M.D. Performed By: #### G LULS ####Point of Care testing, Glucose [Mass/Vol] 126 mg/dL Normal [facility] Comment on above: Result Comment: [facility] om Glucose Reference Range is dependent on time and content of last meal. Glucose of more than 200 mg/dL in a nonstressed, ambulatory subject supports the diagnosis of Diabetes Mellitus. Performed By: #### G LULS ####Point of Care testing, Glucose [Mass/volume] in Ser um or PlasmaOrdered By: Osvaldo Pete on 04-04-2025 Glucose [Mass/Vol] Glucose [Mass/volume ] in Serum or Plasma High 70-100 [facility] Comment on above: ADA recommended refe rence rangeRandom Glucose Reference Range is dependent on time and content of last meal. Glucose of more than 200 mg/dL in a nonstressed, ambulatory subject supports the diagnosis of Diabetes Mellitus. Glucose [Mass/Vol] 126 mg/dL High 70-100 [facility] Comment on above: ADA recommended refe rence rangeRandom Glucose Reference Range is dependent on time and content of last meal. Glucose of more than 200 mg/dL in a nonstressed, ambulatory subject supports the diagnosis of Diabetes Mellitus. Result Comment: [facility] om Glucose Reference Range is dependent on time and content of last meal. Glucose of more than 200 mg/dL in a nonstressed, ambulatory subject supports the diagnosis of Diabetes Mellitus. ADA recommended reference range Performed By: #### B MP ####[place] [place] [address] [facility] Hematocrit Auto (Bld) [Volum e fraction]Ordered By: Osvaldo Pete on 04-04-2025 Hematocrit (Bld) [Volume fraction] Hematocrit [Volume Fraction] of Blood by Automated count Low 34.0-46.4 [facility] Hematocrit [Volume Fraction] of Blood by Automated countOrdered By: Osvaldo Pete on 04-04-2025 Hematocrit (Bld) [Volume fraction] 31.6 % Low 34.0-46.4 [facility] Comment on above: Order Comment: REDRA W Performed By: #### C BC ####[place] [address] [place] [id number] [facility] Hemoglobin [Mass/volume] in BloodOrdered By: Osvaldo Pete on 04-04-2025 Hemoglobin (Bld) [Mass/Vol] Hemoglobin [Mass/volume] in Blood Low 11.8-15.4 [facility] Hemoglobin (Bld) [Mass/Vol] 9.8 g/dL Low 11.8-15.4 [facility] Comment on above: Order Comment: REDRA W Performed By: #### C BC ####[place] [id number] [facility] Christiano 04-04-2025 L Normal [facility] Leukocytes [#/volume] correc alyssa for nucleated erythrocytes in Blood by Automated counOrdered By: Osvaldo Pete on 04-04-2025 WBC corrected for nucl RBC Auto (Bld) [#/Vol] Leukocytes [#/volume] corrected for nucleated erythrocytes in Blood by Automated coun High 3.8-11.6 [facility] WBC corrected for nucl RBC Auto (Bld) [#/Vol] 14.4 10*3/uL High 3.8-11.6 [facility] Leukocytes [#/volume] in Blo od by Automated countOrdered By: Osvaldo Pete on 04-04-2025 WBC (Bld) [#/Vol] 14.4 10*3/uL High 3.8-11.6 [facility] Comment on above: Order Comment: REDRA W Performed By: #### C BC ####[address] Lymphocytes Auto (Bld) [#/Vo l]Ordered By: Osvaldo Pete on 04-04-2025 Lymphocytes (Bld) [#/Vol] Lymphocytes [#/volume] in Blood by Automated count 1.00-4.8 [facility] Lymphocytes [#/volume] in Bl ood by Automated countOrdered By: Osvaldo Pete on 04-04-2025 Lymphocytes (Bld) [#/Vol] 1.0 10*3/uL Normal 1.00-4.8 [facility] Comment on above: Order Comment: REDRA W Performed By: #### C BC ####[address] Lymphocytes/100 WBC Auto (Bl d)Ordered By: Osvaldo Pete on 04-04-2025 Lymphocytes/100 WBC (Bld) Lymphocytes/100 leukocytes in Blood by Automated count . [facility] Lymphocytes/100 leukocytes i n Blood by Automated countOrdered By: Osvaldo Pete on 04-04-2025 Lymphocytes/100 WBC (Bld) 6.8 % Normal . [facility] Comment on above: Order Comment: REDRA W Performed By: #### C BC ####[address] MCH Auto (RBC) [Entitic mass ]Ordered By: Osvaldo Pete on 04-04-2025 MCH (RBC) [Entitic mass] MCH [Entitic mass] by Automated count 24.7-34.3 [facility] MCH [Entitic mass] by Automa alyssa countOrdered By: Osvaldo Pete on 04-04-2025 MCH (RBC) [Entitic mass] 25.9 pg Normal 24.7-34.3 [facility] Comment on above: Order Comment: REDRA W Performed By: #### C BC ####[address] MCHC Auto (RBC) [Mass/Vol]Or dered By: Osvaldo Pete on 04-04-2025 MCHC (RBC) [Mass/Vol] MCHC [Mass/volume] by Automated count Low 32.0-35.0 [facility] MCHC (RBC) [Mass/Vol] 31.1 g/dL Low 32.0-35.0 [facility] MCV Auto (RBC) [Entitic vol] Ordered By: Osvaldo Pete on 04-04-2025 MCV (RBC) [Entitic vol] MCV [Entitic vol ume] by Automated count 80-100 [facility] MCV [Entitic volume] by Auto mated countOrdered By: Osvaldo Pete on 04-04-2025 MCV (RBC) [Entitic vol] 83.1 fL Normal 80-100 [facility] Comment on above: Order Comment: REDRA W Performed By: #### C BC ####[address] Monocytes Auto (Bld) [#/Vol] Ordered By: Osvaldo Pete on 04-04-2025 Monocytes (Bld) [#/Vol] Automated blood monocyte count High 0.0-0.8 [facility] Monocytes [#/volume] in Bloo d by Automated countOrdered By: Osvaldo Pete on 04-04-2025 Monocytes (Bld) [#/Vol] 0.9 10*3/uL High 0.0-0.8 [facility] Comment on above: Order Comment: REDRA W Performed By: #### C BC ####[address] Monocytes/100 WBC Auto (Bld) Ordered By: Osvaldo Pete on 04-04-2025 Monocytes/100 WBC (Bld) Automated monocyte % . [facility] Monocytes/100 leukocytes in Blood by Automated countOrdered By: Osvaldo Pete on 04-04-2025 Monocytes/100 WBC (Bld) 6.5 % Normal . [facility] Comment on above: Order Comment: REDRA W Performed By: #### C BC ####[address] Neutrophils Auto (Bld) [#/Vo l]Ordered By: Osvaldo Pete on 04-04-2025 Neutrophils (Bld) [#/Vol] Neutrophils [#/volume] in Blood by Automated count High 1.8-7.7 [facility] Neutrophils [#/volume] in Bl ood by Automated countOrdered By: Osvaldo Pete on 04-04-2025 Neutrophils (Bld) [#/Vol] 12.2 10*3/uL High 1.8-7.7 [facility] Comment on above: Order Comment: REDRA W Performed By: #### C BC ####[facility] [id number] [place] [id number] [facility] Neutrophils/100 WBC Auto (Bl d)Ordered By: Osvaldo Pete on 04-04-2025 Neutrophils/100 WBC (Bld) Automated neutrophil % . [facility] Neutrophils/100 leukocytes i n Blood by Automated countOrdered By: Osvaldo Pete on 04-04-2025 Neutrophils/100 WBC (Bld) 85.1 % Normal . [facility] Comment on above: Order Comment: REDRA W Performed By: #### C BC ####[facility] [id number] No Panel InformationOrdered By: Juan Carlos Chavez on 04-04-2025 Bedside Glucose Comment Glu2: cleaned meter [facility] No Panel InformationOrdered By: Osvaldo Pete on 04-04-2025 Estimated GFR (CKD-EPI) 8.452 mL/Min [facility] Creatinine Clearance (Chem 10.66 [facility] Nucleated erythrocytes [Pres ence] in Blood by Automated countOrdered By: Osvaldo Pete on 04-04-2025 Nucleated RBC Auto Ql (Bld) Nucleated erythrocytes [Presence] in Blood by Automated count 0-0.5 [facility] Nucleated RBC Auto Ql (Bld) 0.0 /100{WBC} 0-0.5 [facility] Platelet mean volume Auto (B ld) [Entitic vol]Ordered By: Osvaldo Pete on 04-04-2025 Platelet mean volume (Bld) [Entitic vol] Platelet mean volume [Entitic volume] in Blood by Automated count 6.3-10.7 [facility] Platelet mean volume [Entiti c volume] in Blood by Automated countOrdered By: Osvaldo Pete on 04-04-2025 Platelet mean volume (Bld) [Entitic vol] 9.3 fL Normal 6.3-10.7 [facility] Comment on above: Order Comment: REDRA W Performed By: #### C BC ####[place] [id number] [facility] Platelets Auto (Bld) [#/Vol] Ordered By: Osvaldo Pete on 04-04-2025 Platelets (Bld) [#/Vol] Platelets [#/vol ume] in Blood by Automated count 150-450 [facility] Platelets [#/volume] in Bloo d by Automated countOrdered By: Osvaldo Pete on 04-04-2025 Platelets (Bld) [#/Vol] 251 10*3/uL Normal 150-450 [facility] Comment on above: Order Comment: REDRA W Performed By: #### C BC ####[address] Potassium [Moles/volume] in Serum or PlasmaOrdered By: Osvaldo Pete on 04-04-2025 Potassium [Moles/Vol] Potassium [Moles/v olume] in Serum or Plasma 3.5-5.1 [facility] Comment on above: Hemolysis is present at a level that could interfere with the result.Contact lab if redraw is required Potassium [Moles/Vol] 3.7 mmol/L Normal 3.5-5.1 [facility] Comment on above: Hemolysis is present at a level that could interfere with the result.Contact lab if redraw is required Result Comment: Hemo lysis is present at a level that could interfere with the result. Contact lab if redraw is required Performed By: #### B MP ####[place] [id number] [facility] RBC Auto (Bld) [#/Vol]Ordere d By: Osvaldo Pete on 04-04-2025 RBC (Bld) [#/Vol] Erythrocytes [#/volu me] in Blood by Automated count 3.60-5.00 [facility] Serum or plasma anion gap de terminationOrdered By: Osvaldo Pete on 04-04-2025 Anion gap [Moles/Vol] Serum or plasma an ion gap determination High 6.0-15.0 [facility] Anion gap [Moles/Vol] 25.8 mmol/L High 6.0-15.0 [facility] Comment on above: Performed By: #### B MP ####[address] Sodium [Moles/volume] in Ser um or PlasmaOrdered By: Osvaldo Pete on 04-04-2025 Sodium [Moles/Vol] Sodium [Moles/volume ] in Serum or Plasma Low 136-145 [facility] Sodium [Moles/Vol] 134 mmol/L Low 136-145 [facility] Comment on above: Performed By: #### B MP ####[address] Urea nitrogen [Mass/volume] in Serum or PlasmaOrdered By: Osvaldo Pete on 04-04-2025 Urea nitrogen [Mass/Vol] Urea nitrogen [Mass/volume] in Serum or Plasma High 7-25 [facility] Urea nitrogen [Mass/Vol] 29 mg/dL [facility] 7-25 [facility] Comment on above: Performed By: #### B MP ####[place] [id number] [facility] WBC Auto (Bld) [#/Vol]Ordere d By: Osvaldo Pete on 04-04-2025 WBC (Bld) [#/Vol] Leukocytes [#/volume ] in Blood by Automated count High 3.8-11.6 [facility] Albumin [Mass/volume] in Ser um or Plasma by Bromocresol green (BCG) dye binding methoOrdered By: Carmita Baker on 03-10-2025 Albumin BCG dye [Mass/Vol] Albumin [Mass/volume] in Serum or Plasma by Bromocresol green (BCG) dye binding metho Low 3.5-5.7 [facility] Albumin BCG dye [Mass/Vol] 3.0 g/dL Low 3.5-5.7 [facility] Calcium [Mass/volume] in Ser um or PlasmaOrdered By: Carmita Baker on 03-10-2025 Calcium [Mass/Vol] Calcium [Mass/volume ] in Serum or Plasma Low 8.6-10.3 [facility] Calcium [Mass/Vol] 8.2 mg/dL Low 8.6-10.3 [facility] Comment on above: Performed By: #### R ENAL ####[place] [id number] [facility] Carbon dioxide, total [Moles /volume] in Serum or PlasmaOrdered By: Carmita Baker on 03-10-2025 CO2 [Moles/Vol] Carbon dioxide, tota l [Moles/volume] in Serum or Plasma 21.0-31.0 [facility] CO2 [Moles/Vol] 24.1 mmol/L Normal 21.0-31.0 [facility] Comment on above: Performed By: #### R ENAL ####[address] Chloride [Moles/volume] in S augustin or PlasmaOrdered By: Carmita Baker on 03-10-2025 Chloride [Moles/Vol] Chloride [Moles/vol ume] in Serum or Plasma Low 98-107 [facility] Chloride [Moles/Vol] 96 mmol/L Low 98-107 [facility] Comment on above: Performed By: #### R ENAL ####[place] [id number] [facility] Creatinine [Mass/volume] in Serum or PlasmaOrdered By: Carmita Baker on 03-10-2025 Creatinine [Mass/Vol] Creatinine [Mass/v olume] in Serum or Plasma Significant change up 0.60-1.20 [facility] Comment on above: Delta: 2.83 on 03/09 Creatinine [Mass/Vol] 3.85 mg/dL Significan t change up 0.60-1.20 [facility] Comment on above: Delta: 2.83 on 03/09 Performed By: #### R ENAL ####[address] [place] [address] [facility] Glucose [Mass/volume] in Ser um or PlasmaOrdered By: Carmita Baker on 03-10-2025 Glucose [Mass/Vol] Glucose [Mass/volume ] in Serum or Plasma High 70-100 [facility] Comment on above: ADA recommended refe rence rangeRandom Glucose Reference Range is dependent on time and content of last meal. Glucose of more than 200 mg/dL in a nonstressed, ambulatory subject supports the diagnosis of Diabetes Mellitus. Glucose [Mass/Vol] 126 mg/dL High 70-100 [facility] Comment on above: ADA recommended refe rence rangeRandom Glucose Reference Range is dependent on time and content of last meal. Glucose of more than 200 mg/dL in a nonstressed, ambulatory subject supports the diagnosis of Diabetes Mellitus. Result Comment: [facility] Glucose Reference Range is dependent on time and content of last meal. Glucose of more than 200 mg/dL in a nonstressed, ambulatory subject supports the diagnosis of Diabetes Mellitus. ADA recommended reference range Performed By: #### R ENAL ####[facility] [id number] No Panel InformationOrdered By: Carmita Baker on 03-10-2025 Estimated GFR (CKD-EPI) 13.280 mL/Min [facility] Creatinine Clearance (Chem 17.00 [facility] Phosphate [Mass/volume] in S augustin or PlasmaOrdered By: Carmita Baker on 03-10-2025 Phosphate [Mass/Vol] Phosphate [Mass/vol ume] in Serum or Plasma 2.5-4.5 [facility] Phosphate [Mass/Vol] 3.9 mg/dL Normal 2.5-4.5 [facility] Comment on above: Performed By: #### R ENAL ####[address] Potassium [Moles/volume] in Serum or PlasmaOrdered By: Carmita Baker on 03-10-2025 Potassium [Moles/Vol] Potassium [Moles/v olume] in Serum or Plasma 3.5-5.1 [facility] Potassium [Moles/Vol] 4.0 mmol/L Normal 3.5-5.1 [facility] Comment on above: Performed By: #### R ENAL ####[place] [id number] [facility] Renal Function Panelon 03-10 Albumin [Mass/Vol] 3.0 g/dL Low 3.5-5.7 [facility] Comment on above: Performed By: #### R ENAL ####[place] [id number] [facility] Creatinine Clr Calc Pharmacy 17.00 Normal [facility] Comment on above: Result Comment: PERF ORMED BY:[address] [place], [place] [phone] MEDICAL DIRECTORKEMAL ACKERMAN M.D. Performed By: #### R ENAL ####[address] Estimated GFR 13.280 mL/Min Normal [facility] Comment on above: Performed By: #### R ENAL ####[place] [id number] [facility] Serum or plasma anion gap de terminationOrdered By: Carmita Baker on 03-10-2025 Anion gap [Moles/Vol] Serum or plasma an ion gap determination 6.0-15.0 [facility] Anion gap [Moles/Vol] 13.9 mmol/L Normal 6.0-15.0 [facility] Comment on above: Performed By: #### R ENAL ####[place] [id number] [facility] Sodium [Moles/volume] in Ser um or PlasmaOrdered By: Carmita Baker on 03-10-2025 Sodium [Moles/Vol] Sodium [Moles/volume ] in Serum or Plasma Low 136-145 [facility] Sodium [Moles/Vol] 130 mmol/L Low 136-145 [facility] Comment on above: Performed By: #### R ENAL ####[place] [id number] [facility] Urea nitrogen [Mass/volume] in Serum or PlasmaOrdered By: Carmita Baker on 03-10-2025 Urea nitrogen [Mass/Vol] Urea nitrogen [Mass/volume] in Serum or Plasma [address] Urea nitrogen [Mass/Vol] 27 mg/dL High [facility] Comment on above: Performed By: #### R ENAL ####[address] Alanine aminotransferase [En zymatic activity/volume] in Serum or PlasmaOrdered By: Jose Pate on 03-09-2025 ALT [Catalytic activity/Vol] Alanine aminotransferase [Enzymatic activity/volume] in Serum or Plasma [facility] ALT [Catalytic activity/Vol] 8 U/L Normal [facility] Comment on above: Performed By: #### M G, CMP, PAB, PHOS ####[address] Alkaline phosphatase [Enzyma tic activity/volume] in Serum or PlasmaOrdered By: Jose Pate on 03-09-2025 ALP [Catalytic activity/Vol] Alkaline phosphatase [Enzymatic activity/volume] in Serum or Plasma [address] ALP [Catalytic activity/Vol] 97 U/L Normal [address] [place] [address] Comment on above: Performed By: #### M G, CMP, PAB, PHOS ####[address] Aspartate aminotransferase [ Enzymatic activity/volume] in Serum or PlasmaOrdered By: Jose Pate on 03-09-2025 AST [Catalytic activity/Vol] Aspartate aminotransferase [Enzymatic activity/volume] in Serum or Plasma -39 [facility] AST [Catalytic activity/Vol] 20 U/L Normal [facility] Comment on above: Performed By: #### M G, CMP, PAB, PHOS ####[address] Basophils Auto (Bld) [#/Vol] Ordered By: Jose Pate on 03-09-2025 Basophils (Bld) [#/Vol] Automated basophil count 0.0-0.2 [facility] Basophils [#/volume] in Bloo d by Automated countOrdered By: Jose Pate on 03-09-2025 Basophils (Bld) [#/Vol] 0.1 10*3/uL Normal 0.0-0.2 [facility] Comment on above: Performed By: #### S CAN CBC ####[facility] [id number] Basophils/100 WBC Auto (Bld) Ordered By: Jose Pate on 03-09-2025 Basophils/100 WBC (Bld) Automated basophil % . [facility] Basophils/100 leukocytes in Blood by Automated countOrdered By: Jose Pate on 03-09-2025 Basophils/100 WBC (Bld) 0.6 % Normal . [facility] Comment on above: Performed By: #### S CAN CBC ####[facility] [id number] Bilirubin.total [Mass/volume ] in Serum or PlasmaOrdered By: Jose Pate on 03-09-2025 Bilirubin [Mass/Vol] Bilirubin.total [Mass/volume] in Serum or Plasma 0.3-1.0 [facility] Bilirubin [Mass/Vol] 0.3 mg/dL Normal 0.3-1.0 [facility] Comment on above: Performed By: #### M G, CMP, PAB, PHOS ####[facility] [id number] Capillary blood glucose magy urement by glucometer (mass/volume)Ordered By: Kemal Yu on 03-09-2025 Glucose [Mass/Vol] 188 mg/dL Normal [facility] Comment on above: Random Glucose Refer ence Range is dependent on time and content of last meal. Glucose of more than 200 mg/dL in a nonstressed, ambulatory subject supports the diagnosis of Diabetes Mellitus. Result Comment: [facility] Glucose Reference Range is dependent on time and content of last meal. Glucose of more than 200 mg/dL in a nonstressed, ambulatory subject supports the diagnosis of Diabetes Mellitus.PERFORMED BY:[address] [place], [place] [phone] MEDICAL DIRECTORKEMAL ACKERMAN M.D. Performed By: #### G LULS ####Point of Care testing, Comprehensive Metabolic Pane christiano 03-09-2025 Albumin [Mass/Vol] 3.0 g/dL Low 3.5-5.7 [facility] Comment on above: Performed By: #### M G, CMP, PAB, PHOS ####[address] [address] [facility] Anion gap [Moles/Vol] 12.7 mmol/L Normal 6.0-15.0 [facility] Comment on above: Performed By: #### M G, CMP, PAB, PHOS ####[address] [address] [facility] Calcium [Mass/Vol] 8.2 mg/dL Low 8.6-10.3 [facility] Comment on above: Performed By: #### M G, CMP, PAB, PHOS ####[address] [address] [facility] Chloride [Moles/Vol] 99 mmol/L Normal 98-107 [facility] Comment on above: Performed By: #### M G, CMP, PAB, PHOS ####[address] [address] [facility] CO2 [Moles/Vol] 25.3 mmol/L Normal 21.0-31.0 [facility] Comment on above: Performed By: #### M G, CMP, PAB, PHOS ####[address] [address] [facility] Creatinine [Mass/Vol] 2.83 mg/dL Significan t change up 0.60-1.20 [facility] Comment on above: Performed By: #### M G, CMP, PAB, PHOS ####[address] [address] [facility] Creatinine Clr Calc Pharmacy 23.01 Normal [facility] Comment on above: Performed By: #### M G, CMP, PAB, PHOS ####[address] Estimated GFR 19.213 mL/Min Normal [facility] Comment on above: Performed By: #### M G, CMP, PAB, PHOS ####[address] Glucose [Mass/Vol] 153 mg/dL High 70-100 [facility] Comment on above: Result Comment: [facility] Glucose Reference Range is dependent on time and content of last meal. Glucose of more than 200 mg/dL in a nonstressed, ambulatory subject supports the diagnosis of Diabetes Mellitus. ADA recommended reference range Performed By: #### M G, CMP, PAB, PHOS ####[address] Potassium [Moles/Vol] 4.0 mmol/L Normal 3.5-5.1 [facility] Comment on above: Performed By: #### M G, CMP, PAB, PHOS ####[address] Sodium [Moles/Vol] 133 mmol/L Low 136-145 [facility] Comment on above: Performed By: #### M G, CMP, PAB, PHOS ####[address] Urea nitrogen [Mass/Vol] 17 mg/dL Normal 7-25 [facility] Comment on above: Performed By: #### M G, CMP, PAB, PHOS ####[address] Eosinophils Auto (Bld) [#/Vo l]Ordered By: Jose Pate on 03-09-2025 Eosinophils (Bld) [#/Vol] Automated eosinophil count High 0.0-0.45 [facility] Eosinophils [#/volume] in Bl ood by Automated countOrdered By: Jose Pate on 03-09-2025 Eosinophils (Bld) [#/Vol] 0.5 10*3/uL High 0.0-0.45 [facility] Comment on above: Performed By: #### S CAN CBC ####[address] Eosinophils/100 WBC Auto (Bl d)Ordered By: Jose Herlinda on 03-09-2025 Eosinophils/100 WBC (Bld) Automated eosinophil % . [facility] Eosinophils/100 leukocytes i n Blood by Automated countOrdered By: Jose Herlinda on 03-09-2025 Eosinophils/100 WBC (Bld) 3.4 % Normal . [facility] Comment on above: Performed By: #### S CAN CBC ####[address] Erythrocyte distribution wid th Auto (RBC) [Ratio]Ordered By: Jose Herlinda on 03-09-2025 Erythrocyte distribution width (RBC) [Ratio] Erythrocyte distribution width [Ratio] by Automated count 11.9-15.3 [facility] Erythrocyte distribution wid th [Ratio] by Automated countOrdered By: Jose Herlinda on 03-09-2025 Erythrocyte distribution width (RBC) [Ratio] 14.2 % Normal 11.9-15.3 [facility] Comment on above: Performed By: #### S CAN CBC ####[address] Erythrocyte morphology findi ng [Identifier] in BloodOrdered By: Jose Pate on 03-09-2025 RBC morphology finding Nom (Bld) RBC morphology Normal [facility] RBC morphology finding Nom (Bld) Normal Normal Normal [facility] Comment on above: Performed By: #### S CAN CBC ####[address] Erythrocytes [#/volume] in B lood by Automated countOrdered By: Jose Herlinda on 03-09-2025 RBC (Bld) [#/Vol] 2.95 10*6/uL Low 3.60-5.00 [facility] Comment on above: Performed By: #### S CAN CBC ####[address] [place] [address] [facility] Globulin Calc (S) [Mass/Vol] Ordered By: Jose Pate on 03-09-2025 Globulin (S) [Mass/Vol] Serum globulin measurement by calculation (mass/volume) [facility] Glucose Glucometer (BldC) [M ass/Vol]Ordered By: Kemal Yu on 03-09-2025 Glucose [Mass/Vol] Capillary blood gluc ose measurement by glucometer (mass/volume) [facility] Comment on above: Random Glucose Refer ence Range is dependent on time and content of last meal. Glucose of more than 200 mg/dL in a nonstressed, ambulatory subject supports the diagnosis of Diabetes Mellitus. Glucose Poct Glucometerson 0 03-09-2025 Glucose [Mass/Vol] 171 mg/dL Normal [facility] Comment on above: Result Comment: [facility] Glucose Reference Range is dependent on time and content of last meal. Glucose of more than 200 mg/dL in a nonstressed, ambulatory subject supports the diagnosis of Diabetes Mellitus.PERFORMED BY:[facility] [place], [place] [phone] MEDICAL DIRECTORKEMAL ACKERMAN M.D. Performed By: #### G LULS ####Point of Care testing, Hematocrit Auto (Bld) [Volum e fraction]Ordered By: Jose Pate on 03-09-2025 Hematocrit (Bld) [Volume fraction] Hematocrit [Volume Fraction] of Blood by Automated count Low 34.0-46.4 [facility] Hematocrit [Volume Fraction] of Blood by Automated countOrdered By: Jose Pate on 03-09-2025 Hematocrit (Bld) [Volume fraction] 25.1 % Low 34.0-46.4 [facility] Comment on above: Performed By: #### S CAN CBC ####[facility] [place] [address] [facility] Hemoglobin [Mass/volume] in BloodOrdered By: Jose Pate on 03-09-2025 Hemoglobin (Bld) [Mass/Vol] Hemoglobin [Mass/volume] in Blood Low 11.8-15.4 [facility] Hemoglobin (Bld) [Mass/Vol] 8.0 g/dL Low 11.8-15.4 [facility] Comment on above: Performed By: #### S CAN CBC ####[facility] [id number] Leukocytes [#/volume] correc alyssa for nucleated erythrocytes in Blood by Automated counOrdered By: Jose Herlinda on 03-09-2025 WBC corrected for nucl RBC Auto (Bld) [#/Vol] Leukocytes [#/volume] corrected for nucleated erythrocytes in Blood by Automated coun High 3.8-11.6 [facility] WBC corrected for nucl RBC Auto (Bld) [#/Vol] 14.7 10*3/uL High 3.-11.6 [facility] Leukocytes [#/volume] in Blo od by Automated countOrdered By: Jose Pate on 03-09-2025 WBC (Bld) [#/Vol] 14.7 10*3/uL High 3.8-11.6 [facility] Comment on above: Performed By: #### S CAN CBC ####[place] [address] Lymphocytes Auto (Bld) [#/Vo l]Ordered By: Jose Pate on 03-09-2025 Lymphocytes (Bld) [#/Vol] Lymphocytes [#/volume] in Blood by Automated count 1.00-4.8 [facility] Lymphocytes [#/volume] in Bl ood by Automated countOrdered By: Jose Pate on 03-09-2025 Lymphocytes (Bld) [#/Vol] 1.5 10*3/uL Normal 1.00-4.8 [facility] Comment on above: Performed By: #### S CAN CBC ####[facility] [id number] [place] [address] Lymphocytes/100 WBC Auto (Bl d)Ordered By: Jose Pate on 03-09-2025 Lymphocytes/100 WBC (Bld) Lymphocytes/100 leukocytes in Blood by Automated count . [facility] Lymphocytes/100 leukocytes i n Blood by Automated countOrdered By: Jose Herlinda on 03-09-2025 Lymphocytes/100 WBC (Bld) 10.4 % Normal . [facility] Comment on above: Performed By: #### S CAN CBC ####[place] [address] MCH Auto (RBC) [Entitic mass ]Ordered By: Jose Herlinda on 03-09-2025 MCH (RBC) [Entitic mass] MCH [Entitic mass] by Automated count 24.7-34.3 [facility] MCH [Entitic mass] by Automa alyssa countOrdered By: Jose Herlinda on 03-09-2025 MCH (RBC) [Entitic mass] 27.3 pg Normal 24.7-34.3 [facility] Comment on above: Performed By: #### S CAN CBC ####[place] [address] MCHC Auto (RBC) [Mass/Vol]Or dered By: Jose Herlinda on 03-09-2025 MCHC (RBC) [Mass/Vol] MCHC [Mass/volume] by Automated count 32.0-35.0 [facility] MCHC (RBC) [Mass/Vol] 32.1 g/dL 32.0-35.0 [facility] MCV Auto (RBC) [Entitic vol] Ordered By: Jose Herlinda on 03-09-2025 MCV (RBC) [Entitic vol] MCV [Entitic vol ume] by Automated count 80-100 [facility] MCV [Entitic volume] by Auto mated countOrdered By: Jose Herlinda on 03-09-2025 MCV (RBC) [Entitic vol] 85.0 fL Normal 80-100 [facility] Comment on above: Performed By: #### S CAN CBC ####[place] [address] Magnesium [Mass/volume] in S augustin or PlasmaOrdered By: Jose Herlinda on 03-09-2025 Magnesium [Mass/Vol] Magnesium [Mass/vol ume] in Serum or Plasma Low 1.9-2.7 [facility] Magnesium [Mass/Vol] 1.7 mg/dL Low 1.9-2.7 [facility] Comment on above: Performed By: #### M G, CMP, PAB, PHOS ####[facility] [id number] Monocytes Auto (Bld) [#/Vol] Ordered By: Jose Herlinda on 03-09-2025 Monocytes (Bld) [#/Vol] Automated blood monocyte count High 0.0-0.8 [facility] Monocytes [#/volume] in Bloo d by Automated countOrdered By: Jose Herlinda on 03-09-2025 Monocytes (Bld) [#/Vol] 1.6 10*3/uL High 0.0-0.8 [facility] Comment on above: Performed By: #### S CAN CBC ####[place] [address] Monocytes/100 WBC Auto (Bld) Ordered By: Jose Herlinda on 03-09-2025 Monocytes/100 WBC (Bld) Automated monocyte % . [facility] Monocytes/100 leukocytes in Blood by Automated countOrdered By: Jose Herlinda on 03-09-2025 Monocytes/100 WBC (Bld) 11.0 % Normal . [facility] Comment on above: Performed By: #### S CAN CBC ####[place] [address] Neutrophils Auto (Bld) [#/Vo l]Ordered By: Jose Herlinda on 03-09-2025 Neutrophils (Bld) [#/Vol] Neutrophils [#/volume] in Blood by Automated count High 1.8-7.7 [facility] Neutrophils [#/volume] in Bl ood by Automated countOrdered By: Jose Herlinda on 03-09-2025 Neutrophils (Bld) [#/Vol] 11.0 10*3/uL High 1.8-7.7 [facility] Comment on above: Performed By: #### S CAN CBC ####[facility] [id number] [place] [id number] [facility] Neutrophils/100 WBC Auto (Bl d)Ordered By: Jose Pate on 03-09-2025 Neutrophils/100 WBC (Bld) Automated neutrophil % . [facility] Neutrophils/100 leukocytes i n Blood by Automated countOrdered By: Jose Pate on 03-09-2025 Neutrophils/100 WBC (Bld) 74.6 % Normal . [facility] Comment on above: Performed By: #### S CAN CBC ####[place] [id number] [facility] No Panel InformationOrdered By: Jose Pate on 03-09-2025 CBC Comment See comment [facility] Comment on above: Absolute monocytosis is commonly reactive in nature. However, if unexplained, recommend follow-up CBC in 3 months to evaluate for persistence. Nucleated erythrocytes [Pres ence] in Blood by Automated countOrdered By: Jose Pate on 03-09-2025 Nucleated RBC Auto Ql (Bld) Nucleated erythrocytes [Presence] in Blood by Automated count 0-0.5 [facility] Nucleated RBC Auto Ql (Bld) 0.1 /100{WBC} 0-0.5 [facility] Phosphoruson 03-09-2025 Phosphate [Mass/Vol] 2.6 mg/dL Normal 2.5-4.5 [facility] Comment on above: Performed By: #### M G, CMP, PAB, PHOS ####[place] [address] [place] [id number] [facility] Platelet adequacy [Presence] in Blood by Light microscopyOrdered By: Jose Pate on 03-09-2025 Platelets LM Ql (Bld) Platelet adequacy [Presence] in Blood by Light microscopy Normal [facility] Platelets LM Ql (Bld) Normal Normal [facility] Platelet mean volume Auto (B ld) [Entitic vol]Ordered By: Jose Pate on 03-09-2025 Platelet mean volume (Bld) [Entitic vol] Platelet mean volume [Entitic volume] in Blood by Automated count 6.3-10.7 [facility] Platelet mean volume [Entiti c volume] in Blood by Automated countOrdered By: Jose Pate on 03-09-2025 Platelet mean volume (Bld) [Entitic vol] 10.2 fL Normal 6.3-10.7 [facility] Comment on above: Performed By: #### S CAN CBC ####[facility] [place] [address] [facility] Platelet morphology finding [Identifier] in BloodOrdered By: Jose Pate on 03-09-2025 Platelet morphology finding Nom (Bld) Platelet morphology finding [Identifier] in Blood [facility] Platelet morphology finding Nom (Bld) N/A [facility] Platelets Auto (Bld) [#/Vol] Ordered By: Jose Pate on 03-09-2025 Platelets (Bld) [#/Vol] Platelets [#/vol ume] in Blood by Automated count 150-450 [facility] Platelets Large [Presence] i n Blood by Light microscopyOrdered By: Jose Pate on 03-09-2025 Platelets Large LM Ql (Bld) Platelets Large [Presence] in Blood by Light microscopy [facility] Platelets Large LM Ql (Bld) Slight [facility] Platelets [#/volume] in Bloo d by Automated countOrdered By: Jose Pate on 03-09-2025 Platelets (Bld) [#/Vol] 232 10*3/uL Normal 150-450 [facility] Comment on above: Performed By: #### S CAN CBC ####[facility] [place] [address] [facility] Prealbumin [Mass/volume] in Serum or PlasmaOrdered By: Kemal Yu on 03-09-2025 Prealbumin [Mass/Vol] Prealbumin [Mass/v olume] in Serum or Plasma Low 17.0-34.0 [facility] Prealbumin [Mass/Vol] 13.3 mg/dL Low 17.0-34.0 [facility] Comment on above: Result Comment: PERF ORMED BY:[address] [place], [place] [phone] MEDICAL DIRECTORKEMAL ACKERMAN M.D. Performed By: #### M G, CMP, PAB, PHOS ####[address] Protein [Mass/volume] in Ser um or PlasmaOrdered By: Jose Pate on 03-09-2025 Protein [Mass/Vol] Protein [Mass/volume ] in Serum or Plasma 6.4-8.9 [facility] Protein [Mass/Vol] 6.6 g/dL Normal 6.4-8.9 [facility] Comment on above: Performed By: #### M G, CMP, PAB, PHOS ####[address] RBC Auto (Bld) [#/Vol]Ordere d By: Jose Pate on 03-09-2025 RBC (Bld) [#/Vol] Erythrocytes [#/volu me] in Blood by Automated count Low 3.60-5.00 [facility] Scan and CBCon 03-09-2025 Additional Comments Normal [facility] Comment on above: Result Comment: Abso lute monocytosis is commonly reactive in nature. However, if unexplained, recommend follow-up CBC in 3 months to evaluate for persistence.PERFORMED BY:[address] [place], [place] [phone] MEDICAL DIRECTORMOCINDY ACKERMAN M.D. Performed By: #### S CAN CBC ####[address] Large Platelets Slight Normal [facility] Comment on above: Performed By: #### S CAN CBC ####[place] [id number] [facility] Mean Corpuscular HGB Conc 32.1 g/dL Normal 32.0-35.0 [facility] Comment on above: Performed By: #### S CAN CBC ####[address] NRBC% 0.1 /100{WBC} Normal 0-0.5 [facility] Comment on above: Performed By: #### S CAN CBC ####[place] [address] [place] [address] [facility] Platelet Estimate Normal Normal Normal [facility] Comment on above: Performed By: #### S CAN CBC ####[address] Serum globulin measurement b y calculation (mass/volume)Ordered By: Jose aPte on 03-09-2025 Globulin (S) [Mass/Vol] 3.6 g/dL Normal [facility] Comment on above: Performed By: #### M G, CMP, PAB, PHOS ####[address] Serum or plasma albumin/glob ulin mass ratioOrdered By: Jose Pate on 03-09-2025 Albumin/Globulin [Mass ratio] Serum or plasma albumin/globulin mass ratio [facility] Albumin/Globulin [Mass ratio] 0.8 {ratio} Normal [facility] Comment on above: Performed By: #### M G, CMP, PAB, PHOS ####[place] [id number] [facility] WBC Auto (Bld) [#/Vol]Ordere d By: Jose Pate on 03-09-2025 WBC (Bld) [#/Vol] Leukocytes [#/volume ] in Blood by Automated count High 3.8-11.6 [facility] Complete Blood Count Auto Di ffon 03-08-2025 Basophils (Bld) [#/Vol] 0.0 10*3/uL Normal 0.0-0.2 [facility] Comment on above: Result Comment: PERF ORMED BY:[address] [place], [place] [phone] MEDICAL DIRECTORKEMAL ACKERMAN M.D. Performed By: #### C BC, MG, CMP ####[address] Basophils/100 WBC (Bld) 0.1 % Normal . [facility] Comment on above: Performed By: #### C BC, MG, CMP ####[address] Eosinophils (Bld) [#/Vol] 0.5 10*3/uL High 0.0-0.45 [facility] Comment on above: Performed By: #### C BC, MG, CMP ####[address] Eosinophils/100 WBC (Bld) 3.5 % Normal . [facility] Comment on above: Performed By: #### C BC, MG, CMP ####[address] Erythrocyte distribution width (RBC) [Ratio] 14.5 % Normal 11.9-15.3 [facility] Comment on above: Performed By: #### C BC, MG, CMP ####[address] Hematocrit (Bld) [Volume fraction] 26.6 % Low 34.0-46.4 [facility] Comment on above: Performed By: #### C BC, MG, CMP ####[address] Hemoglobin (Bld) [Mass/Vol] 8.5 g/dL Low 11.8-15.4 [facility] Comment on above: Performed By: #### C BC, MG, CMP ####[address] Lymphocytes (Bld) [#/Vol] 1.5 10*3/uL Normal 1.00-4.8 [facility] Comment on above: Performed By: #### C BC, MG, CMP ####[address] Lymphocytes/100 WBC (Bld) 9.7 % Normal . [facility] Comment on above: Performed By: #### C BC, MG, CMP ####[address] MCH (RBC) [Entitic mass] 27.0 pg Normal 24.7-34.3 [facility] Comment on above: Performed By: #### C BC MG, CMP ####[address] MCV (RBC) [Entitic vol] 85.0 fL Normal 80-100 [facility] Comment on above: Performed By: #### C BC, MG, CMP ####[address] Mean Corpuscular HGB Conc 31.7 g/dL Low 32.0-35.0 [facility] Comment on above: Performed By: #### C BC MG, CMP ####[address] Monocytes (Bld) [#/Vol] 1.5 10*3/uL High 0.0-0.8 [facility] Comment on above: Performed By: #### C BC MG, CMP ####[address] Monocytes/100 WBC (Bld) 9.7 % Normal . [facility] Comment on above: Performed By: #### C BC MG, CMP ####[address] Neutrophils (Bld) [#/Vol] 11.6 10*3/uL High 1.8-7.7 [facility] Comment on above: Performed By: #### C BC MG, CMP ####[address] Neutrophils/100 WBC (Bld) 77.0 % Normal . [facility] Comment on above: Performed By: #### C BC MG, CMP ####[address] NRBC% 0.1 /100{WBC} Normal 0-0.5 [facility] Comment on above: Performed By: #### C BC MG, CMP ####[address] Platelet mean volume (Bld) [Entitic vol] 9.1 fL Normal 6.3-10.7 [facility] Comment on above: Performed By: #### C BC, MG, CMP ####[address] Platelets (Bld) [#/Vol] 255 10*3/uL Normal 150-450 [facility] Comment on above: Performed By: #### C BC, MG, CMP ####[address] RBC (Bld) [#/Vol] 3.14 10*6/uL Low 3.60-5.00 [facility] Comment on above: Performed By: #### C BC, MG, CMP ####[address] WBC (Bld) [#/Vol] 15.1 10*3/uL High 3.8-11.6 [facility] Comment on above: Performed By: #### C BC, MG, CMP ####[address] Comprehensive Metabolic Pane christiano 03-08-2025 Albumin [Mass/Vol] 3.1 g/dL Low 3.5-5.7 [facility] Comment on above: Performed By: #### C BC, MG, CMP ####[address] Albumin/Globulin [Mass ratio] 0.8 {ratio} Normal [facility] Comment on above: Performed By: #### C BC, MG, CMP ####[address] ALP [Catalytic activity/Vol] 84 U/L Normal 34-104 [facility] Comment on above: Performed By: #### C BC, MG, CMP ####[address] ALT [Catalytic activity/Vol] 6 U/L Low 7-52 [facility] Comment on above: Performed By: #### C BC, MG, CMP ####[place] [address] [place] [id number] [facility] Anion gap [Moles/Vol] 13.0 mmol/L Normal 6.0-15.0 [facility] Comment on above: Performed By: #### C BC, MG, CMP ####[place] [address] [place] [id number] [facility] AST [Catalytic activity/Vol] 14 U/L Normal 13-39 [facility] Comment on above: Performed By: #### C BC, MG, CMP ####[address] Bilirubin [Mass/Vol] 0.3 mg/dL Normal 0.3-1.0 [facility] Comment on above: Performed By: #### C BC, MG, CMP ####[place] [id number] [facility] Calcium [Mass/Vol] 8.3 mg/dL Low 8.6-10.3 [facility] Comment on above: Performed By: #### C BC, MG, CMP ####[place] [id number] [facility] Chloride [Moles/Vol] 95 mmol/L Low 98-107 [facility] Comment on above: Performed By: #### C BC, MG, CMP ####[place] [id number] [facility] CO2 [Moles/Vol] 28.0 mmol/L Normal 21.0-31.0 [facility] Comment on above: Performed By: #### C BC, MG, CMP ####[place] [id number] [facility] Creatinine [Mass/Vol] 4.06 mg/dL Significan t change up 0.60-1.20 [facility] Comment on above: Performed By: #### C BC, MG, CMP ####[place] [id number] [facility] Creatinine Clr Calc Pharmacy 16.04 Normal [facility] Comment on above: Performed By: #### C BC, MG, CMP ####[address] Estimated GFR 12.460 mL/Min Normal [facility] Comment on above: Performed By: #### C BC, MG, CMP ####[address] Globulin (S) [Mass/Vol] 3.8 g/dL Normal [facility] Comment on above: Performed By: #### C BC, MG, CMP ####[address] Glucose [Mass/Vol] 162 mg/dL High 70-100 [facility] Comment on above: Result Comment: [facility] Glucose Reference Range is dependent on time and content of last meal. Glucose of more than 200 mg/dL in a nonstressed, ambulatory subject supports the diagnosis of Diabetes Mellitus. ADA recommended reference range Performed By: #### C BC, MG, CMP ####[address] Potassium [Moles/Vol] 4.0 mmol/L Normal 3.5-5.1 [facility] Comment on above: Performed By: #### C BC, MG, CMP ####[address] Protein [Mass/Vol] 6.9 g/dL Normal 6.4-8.9 [facility] Comment on above: Performed By: #### C BC, MG, CMP ####[address] Sodium [Moles/Vol] 132 mmol/L Low 136-145 [facility] Comment on above: Performed By: #### C BC, MG, CMP ####[address] Urea nitrogen [Mass/Vol] 29 mg/dL High 7-25 [facility] [facility] Comment on above: Performed By: #### C BC, MG, CMP ####[address] Glucose Poct Glucometerson 0 03-08-2025 Glucose [Mass/Vol] 198 mg/dL Normal [facility] Comment on above: Result Comment: [place] Glucose Reference Range is dependent on time and content of last meal. Glucose of more than 200 mg/dL in a nonstressed, ambulatory subject supports the diagnosis of Diabetes Mellitus.PERFORMED BY:[address] [place], [place] [phone] MEDICAL DIRECTORKEMAL ACKERMAN M.D. Performed By: #### G LULS ####Point of Care testing, Glucose [Mass/Vol] 268 mg/dL Normal [facility] Comment on above: Result Comment: [facility] [place] Glucose Reference Range is dependent on time and content of last meal. Glucose of more than 200 mg/dL in a nonstressed, ambulatory subject supports the diagnosis of Diabetes Mellitus.PERFORMED BY:[address] [place], [place] [phone] MEDICAL DIRECTORKEMAL ACKERMAN M.D. Performed By: #### G LULS ####Point of Care testing, Glucose [Mass/Vol] 157 mg/dL Normal [facility] Comment on above: Result Comment: [facility] [place] Glucose Reference Range is dependent on time and content of last meal. Glucose of more than 200 mg/dL in a nonstressed, ambulatory subject supports the diagnosis of Diabetes Mellitus.PERFORMED BY:[address] [place], [place] [phone] MEDICAL DIRECTORKEMAL ACKERMAN M.D. Performed By: #### G LULS ####Point of Care testing, Magnesiumon 03-08-2025 Magnesium [Mass/Vol] 1.7 mg/dL Low 1.9-2.7 [facility] Comment on above: Result Comment: PERF ORMED BY:[address] [place], [place] [phone] MEDICAL DIRECTORKEMAL ACKERMAN M.D. Performed By: #### C BC, MG, CMP ####[address] [address] [facility] Band form neutrophils/100 WB C Manual cnt (Bld)Ordered By: Jose Pate on 03-07-2025 Band form neutrophils/100 WBC (Bld) Peripheral white blood cell differential % bands, microscopic exam 0-5 [facility] Band form neutrophils/100 le ukocytes in Blood by Manual countOrdered By: Jose Pate on 03-07-2025 Band form neutrophils/100 WBC (Bld) 1 % Normal 0-5 [facility] Comment on above: Performed By: #### D IFF CBC, CMP, MG ####[place] [id number] [facility] Basophils/100 WBC Manual cnt (Bld)Ordered By: Jose Pate on 03-07-2025 Basophils/100 WBC (Bld) Basophils/100 le ukocytes in Blood by Manual count 0-2 [facility] Basophils/100 leukocytes in Blood by Manual countOrdered By: Jose Pate on 03-07-2025 Basophils/100 WBC (Bld) 0 % Normal 0-2 [facility] Comment on above: Performed By: #### D IFF CBC, CMP, MG ####[address] Comprehensive Metabolic Pane christiano 03-07-2025 Albumin [Mass/Vol] 2.9 g/dL Low 3.5-5.7 [facility] Comment on above: Performed By: #### D IFF CBC, CMP, MG ####[address] Albumin/Globulin [Mass ratio] 0.9 {ratio} Normal [facility] Comment on above: Performed By: #### D IFF CBC, CMP, MG ####[place] [id number] [facility] ALP [Catalytic activity/Vol] 68 U/L Normal 34-104 [facility] Comment on above: Performed By: #### D IFF CBC, CMP, MG ####[place] [id number] [facility] ALT [Catalytic activity/Vol] 5 U/L Low 7-52 [facility] Comment on above: Performed By: #### D IFF CBC, CMP, MG ####[address] Anion gap [Moles/Vol] 11.6 mmol/L Normal 6.0-15.0 [facility] Comment on above: Performed By: #### D IFF CBC, CMP, MG ####[address] AST [Catalytic activity/Vol] 10 U/L Low 13-39 [facility] Comment on above: Performed By: #### D IFF CBC, CMP, MG ####[address] Bilirubin [Mass/Vol] 0.2 mg/dL Low 0.3-1.0 [facility] Comment on above: Performed By: #### D IFF CBC, CMP, MG ####[address] Calcium [Mass/Vol] 8.3 mg/dL Low 8.6-10.3 [facility] Comment on above: Performed By: #### D IFF CBC, CMP, MG ####[address] Chloride [Moles/Vol] 95 mmol/L Low 98-107 [facility] Comment on above: Performed By: #### D IFF CBC, CMP, MG ####[address] CO2 [Moles/Vol] 28.5 mmol/L Normal 21.0-31.0 [facility] Comment on above: Performed By: #### D IFF CBC, CMP, MG ####[address] Creatinine [Mass/Vol] 3.09 mg/dL Significan t change up 0.60-1.20 [facility] Comment on above: Performed By: #### D IFF CBC, CMP, MG ####[address] Creatinine Clr Calc Pharmacy 20.67 Normal [facility] Comment on above: Performed By: #### D IFF CBC, CMP, MG ####[address] Estimated GFR 17.289 mL/Min Normal [facility] Comment on above: Performed By: #### D IFF CBC, CMP, MG ####[address] Globulin (S) [Mass/Vol] 3.4 g/dL Normal [facility] Comment on above: Performed By: #### D IFF CBC, CMP, MG ####[address] Glucose [Mass/Vol] 163 mg/dL High 70-100 [facility] Comment on above: Result Comment: [place] Glucose Reference Range is dependent on time and content of last meal. Glucose of more than 200 mg/dL in a nonstressed, ambulatory subject supports the diagnosis of Diabetes Mellitus. ADA recommended reference range Performed By: #### D IFF CBC, CMP, MG ####[address] Potassium [Moles/Vol] 4.1 mmol/L Normal 3.5-5.1 [facility] Comment on above: Performed By: #### D IFF CBC, CMP, MG ####[address] Protein [Mass/Vol] 6.3 g/dL Low 6.4-8.9 [facility] Comment on above: Performed By: #### D IFF CBC, CMP, MG ####[address] Sodium [Moles/Vol] 131 mmol/L Low 136-145 [facility] Comment on above: Performed By: #### D IFF CBC, CMP, MG ####[address] Urea nitrogen [Mass/Vol] 20 mg/dL Normal 7-25 [facility] Comment on above: Performed By: #### D IFF CBC, CMP, MG ####[address] Diff and CBCon 03-07-2025 Erythrocyte distribution width (RBC) [Ratio] 13.8 % Normal 11.9-15.3 [facility] Comment on above: Performed By: #### D IFF CBC, CMP, MG ####[address] Hematocrit (Bld) [Volume fraction] 21.9 % Low 34.0-46.4 [facility] Comment on above: Performed By: #### D IFF CBC, CMP, MG ####[address] Hemoglobin (Bld) [Mass/Vol] 7.1 g/dL Low 11.8-15.4 [facility] Comment on above: Performed By: #### D IFF CBC, CMP, MG ####[address] MCH (RBC) [Entitic mass] 27.4 pg Normal 24.7-34.3 [facility] Comment on above: Performed By: #### D IFF CBC, CMP, MG ####[address] MCV (RBC) [Entitic vol] 85.1 fL Normal 80-100 [facility] Comment on above: Performed By: #### D IFF CBC, CMP, MG ####[address] Mean Corpuscular HGB Conc 32.2 g/dL Normal 32.0-35.0 [facility] Comment on above: Performed By: #### D IFF CBC, CMP, MG ####[address] Platelet Estimate Normal Normal Normal [facility] Comment on above: Performed By: #### D IFF CBC, CMP, MG ####[address] [place] [address] [facility] Platelet mean volume (Bld) [Entitic vol] 9.3 fL Normal 6.3-10.7 [facility] Comment on above: Result Comment: PERF ORMED BY:[address] [place] [address] [place], [place] [phone] MEDICAL DIRECTORKEMAL ACKERMAN M.D. Performed By: #### D IFF CBC, CMP, MG ####[place] [id number] [facility] Platelet Morphology Normal Normal Normal [facility] Comment on above: Result Comment: PERF ORMED BY:[address] [place], [place] [phone] MEDICAL DIRECTORKEMAL ACKERMAN M.D. Performed By: #### D IFF CBC, CMP, MG ####[address] Platelets (Bld) [#/Vol] 231 10*3/uL Normal 150-450 [facility] Comment on above: Performed By: #### D IFF CBC, CMP, MG ####[address] RBC (Bld) [#/Vol] 2.58 10*6/uL Low 3.60-5.00 [facility] Comment on above: Performed By: #### D IFF CBC, CMP, MG ####[address] RBC morphology finding Nom (Bld) Normal Normal Normal [facility] Comment on above: Performed By: #### D IFF CBC, CMP, MG ####[address] Reactive Lymphocytes 1 % Normal 0-12 [facility] Comment on above: Performed By: #### D IFF CBC, CMP, MG ####[address] WBC (Bld) [#/Vol] 13.7 10*3/uL High 3.8-11.6 [facility] Comment on above: Performed By: #### D IFF CBC, CMP, MG ####[address] [address] [facility] Eosinophils/100 WBC Manual c nt (Bld)Ordered By: Jose Pate on 03-07-2025 Eosinophils/100 WBC (Bld) Eosinophils/100 leukocytes in Blood by Manual count 1-3 [facility] Eosinophils/100 leukocytes i n Blood by Manual countOrdered By: Jose Pate on 03-07-2025 Eosinophils/100 WBC (Bld) 2 % Normal 1-3 [facility] Comment on above: Performed By: #### D IFF CBC, CMP, MG ####[address] [address] [facility] Glucose Poct Glucometerson 0 03-07-2025 Glucose [Mass/Vol] 183 mg/dL Normal [facility] Comment on above: Result Comment: [facility] [place] Glucose Reference Range is dependent on time and content of last meal. Glucose of more than 200 mg/dL in a nonstressed, ambulatory subject supports the diagnosis of Diabetes Mellitus.PERFORMED BY:[address] [place], [place] [phone] MEDICAL DIRECTORKEMAL ACKERMAN M.D. Performed By: #### G LULS ####Point of Care testing, Glucose [Mass/Vol] 225 mg/dL Normal [facility] Comment on above: Result Comment: [facility] [place] Glucose Reference Range is dependent on time and content of last meal. Glucose of more than 200 mg/dL in a nonstressed, ambulatory subject supports the diagnosis of Diabetes Mellitus.PERFORMED BY:[address] [place], [place] [phone] MEDICAL DIRECTORKEMAL ACKERMAN M.D. Performed By: #### G LULS ####Point of Care testing, Commemt1 Glu2: Cleaned Meter Normal [facility] Comment on above: Result Comment: PERF ORMED BY:[address] [address] [place], [place] [phone] MEDICAL DIRECTORKEMAL ACKERMAN M.D. Performed By: #### G LULS ####Point of Care testing, Glucose [Mass/Vol] 177 mg/dL Normal [facility] Comment on above: Result Comment: [facility] [place] Glucose Reference Range is dependent on time and content of last meal. Glucose of more than 200 mg/dL in a nonstressed, ambulatory subject supports the diagnosis of Diabetes Mellitus. Performed By: #### G LULS ####Point of Care testing, LeukoReduced RBCon LeukoReduced RBC TRANSFUSED 03/07/25 1012 Normal [facility] Lymphocytes/100 WBC Manual c nt (Bld)Ordered By: Jose Pate on 03-07-2025 Lymphocytes/100 WBC (Bld) Lymphocytes/100 leukocytes in Blood by Manual count Low 18-42 [facility] Lymphocytes/100 leukocytes i n Blood by Manual countOrdered By: Jose Pate on 03-07-2025 Lymphocytes/100 WBC (Bld) 9 % Low 18-42 [facility] Comment on above: Performed By: #### D IFF CBC, CMP, MG ####[place] [address] [place] [id number] [facility] Magnesiumon 03-07-2025 Magnesium [Mass/Vol] 1.7 mg/dL Low 1.9-2.7 [facility] Comment on above: Result Comment: PERF ORMED BY:[address] [place], [place] [phone] MEDICAL DIRECTORKEMAL ACKERMAN M.D. Performed By: #### D IFF CBC, CMP, MG ####[address] [place] [address] [facility] Monocytes/100 WBC Manual cnt (Bld)Ordered By: Jose Pate on 03-07-2025 Monocytes/100 WBC (Bld) Monocytes/100 le ukocytes in Blood by Manual count 12-06 [facility] Monocytes/100 leukocytes in Blood by Manual countOrdered By: Jose Pate on 03-07-2025 Monocytes/100 WBC (Bld) 5 % Normal 2-11 [facility] Comment on above: Performed By: #### D IFF CBC, CMP, MG ####[facility] [id number] [place] [id number] [facility] No Panel InformationOrdered By: Kemal Yu on 03-07-2025 Bedside Glucose Comment Glu2: cleaned meter [facility] Segmented neutrophils/100 WB C Manual cnt (Bld)Ordered By: Jose Pate on 03-07-2025 Segmented neutrophils/100 WBC (Bld) Manual blood segmented neutrophils/100 leukocytes High 50-70 [facility] Segmented neutrophils/100 le ukocytes in Blood by Manual countOrdered By: Jose Pate on 03-07-2025 Segmented neutrophils/100 WBC (Bld) 82 % High 50-70 [facility] Comment on above: Performed By: #### D IFF CBC, CMP, MG ####[facility] [address] [place] [id number] [facility] Type and Screenon 03-07-2025 ABO and Rh group Nom (Bld) Blood group A Rh(D) positive Normal [facility] Comment on above: Order Comment: Trans fuse now? Y Number of units to transfuse now? 1 Result Comment: PERF ORMED BY:[address] [address] [place], [place] [phone] MEDICAL DIRECTORKEMAL ACKERMAN M.D. Variant lymphocytes/100 WBC Manual cnt (Bld)Ordered By: Jose Pate on 03-07-2025 Variant lymphocytes/100 WBC (Bld) Variant lymphocytes/100 leukocytes in Blood by Manual count 0-12 [facility] Variant lymphocytes/100 WBC (Bld) 1 % 0-12 [facility] Complete Blood Count Auto Di ffon 03-06-2025 Basophils (Bld) [#/Vol] 0.1 10*3/uL Normal 0.0-0.2 [facility] Comment on above: Result Comment: PERF ORMED BY:[address] [address] [place], [place] [phone] MEDICAL DIRECTORKEMAL ACKERMAN M.D. Performed By: #### C MP, MG, CBC ####[address] Basophils/100 WBC (Bld) 1.1 % Normal . T valery [facility] Comment on above: Performed By: #### C MP, MG, CBC ####[address] Eosinophils (Bld) [#/Vol] 0.5 10*3/uL High 0.0-0.45 [facility] Comment on above: Performed By: #### C MP, MG, CBC ####[address] Eosinophils/100 WBC (Bld) 3.7 % Normal . [facility] Comment on above: Performed By: #### C MP, MG, CBC ####[address] Erythrocyte distribution width (RBC) [Ratio] 13.8 % Normal 11.9-15.3 [facility] Comment on above: Performed By: #### C MP, MG, CBC ####[address] Hematocrit (Bld) [Volume fraction] 22.1 % Low 34.0-46.4 [facility] Comment on above: Performed By: #### C MP, MG, CBC ####[address] Hemoglobin (Bld) [Mass/Vol] 7.1 g/dL Low 11.8-15.4 [facility] Comment on above: Performed By: #### C MP, MG, CBC ####[address] Lymphocytes (Bld) [#/Vol] 1.5 10*3/uL Normal 1.00-4.8 [facility] Comment on above: Performed By: #### C MP, MG, CBC ####[address] Lymphocytes/100 WBC (Bld) 11.4 % Normal . [facility] Comment on above: Performed By: #### C MP, MG, CBC ####[address] MCH (RBC) [Entitic mass] 27.5 pg Normal 24.7-34.3 [facility] Comment on above: Performed By: #### C MP, MG, CBC ####[address] MCV (RBC) [Entitic vol] 85.7 fL Normal 80-100 [facility] Comment on above: Performed By: #### C MP, MG, CBC ####[address] Mean Corpuscular HGB Conc 32.1 g/dL Normal 32.0-35.0 [facility] Comment on above: Performed By: #### C MP, MG, CBC ####[address] Monocytes (Bld) [#/Vol] 1.8 10*3/uL High 0.0-0.8 [facility] Comment on above: Performed By: #### C MP, MG, CBC ####[address] Monocytes/100 WBC (Bld) 13.5 % Normal . [facility] Comment on above: Performed By: #### C MP, MG, CBC ####[address] Neutrophils (Bld) [#/Vol] 9.2 10*3/uL High 1.8-7.7 [facility] Comment on above: Performed By: #### C MP, MG, CBC ####[address] Neutrophils/100 WBC (Bld) 70.3 % Normal . [facility] Comment on above: Performed By: #### C MP, MG, CBC ####[address] NRBC% 0.1 /100{WBC} Normal 0-0.5 [facility] Comment on above: Performed By: #### C MP, MG, CBC ####[address] Platelet mean volume (Bld) [Entitic vol] 9.5 fL Normal 6.3-10.7 [facility] Comment on above: Performed By: #### C MP, MG, CBC ####[address] Platelets (Bld) [#/Vol] 246 10*3/uL Normal 150-450 [facility] Comment on above: Performed By: #### C MP, MG, CBC ####[address] RBC (Bld) [#/Vol] 2.58 10*6/uL Low 3.60-5.00 [facility] Comment on above: Performed By: #### C MP, MG, CBC ####[address] WBC (Bld) [#/Vol] 13.1 10*3/uL High 3.8-11.6 [facility] Comment on above: Performed By: #### C MP, MG, CBC ####[address] Comprehensive Metabolic Pane christiano 03-06-2025 Albumin [Mass/Vol] 2.8 g/dL Low 3.5-5.7 [facility] Comment on above: Performed By: #### C MP, MG, CBC ####[address] Albumin/Globulin [Mass ratio] 0.8 {ratio} Normal [facility] Comment on above: Performed By: #### C MP, MG, CBC ####[address] ALP [Catalytic activity/Vol] 67 U/L Normal 34-104 [facility] Comment on above: Performed By: #### C MP, MG, CBC ####[address] ALT [Catalytic activity/Vol] 6 U/L Low 7-52 [facility] Comment on above: Performed By: #### C MP, MG, CBC ####[place] [id number] [facility] Anion gap [Moles/Vol] 12.8 mmol/L Normal 6.0-15.0 [facility] Comment on above: Performed By: #### C MP, MG, CBC ####[address] AST [Catalytic activity/Vol] 12 U/L Low 13-39 [facility] Comment on above: Performed By: #### C MP, MG, CBC ####[address] Bilirubin [Mass/Vol] 0.2 mg/dL Low 0.3-1.0 [facility] Comment on above: Performed By: #### C MP, MG, CBC ####[address] Calcium [Mass/Vol] 8.6 mg/dL Normal 8.6-10.3 [facility] Comment on above: Performed By: #### C MP, MG, CBC ####[address] Chloride [Moles/Vol] 95 mmol/L Low 98-107 [facility] Comment on above: Performed By: #### C MP, MG, CBC ####[place] [id number] [facility] CO2 [Moles/Vol] 27.2 mmol/L Normal 21.0-31.0 [facility] Comment on above: Performed By: #### C MP, MG, CBC ####[place] [id number] [facility] Creatinine [Mass/Vol] 4.72 mg/dL High 0.60-1.20 [facility] Comment on above: Performed By: #### C MP, MG, CBC ####[address] Creatinine Clr Calc Pharmacy 12.95 Normal [facility] Comment on above: Performed By: #### C MP, MG, CBC ####[address] Estimated GFR 10.399 mL/Min Normal [facility] Comment on above: Performed By: #### C MP, MG, CBC ####[address] Globulin (S) [Mass/Vol] 3.5 g/dL Normal T [facility] Comment on above: Performed By: #### C MP, MG, CBC ####[address] Glucose [Mass/Vol] 122 mg/dL High 70-100 [facility] Comment on above: Result Comment: [facility] [place] Glucose Reference Range is dependent on time and content of last meal. Glucose of more than 200 mg/dL in a nonstressed, ambulatory subject supports the diagnosis of Diabetes Mellitus. ADA recommended reference range Performed By: #### C MP, MG, CBC ####[address] Potassium [Moles/Vol] 4.0 mmol/L Normal 3.5-5.1 [facility] Comment on above: Performed By: #### C MP, MG, CBC ####[address] Protein [Mass/Vol] 6.3 g/dL Low 6.4-8.9 [facility] Comment on above: Performed By: #### C MP, MG, CBC ####[address] Sodium [Moles/Vol] 131 mmol/L Low 136-145 [facility] Comment on above: Performed By: #### C MP, MG, CBC ####[address] [address] [facility] Urea nitrogen [Mass/Vol] 30 mg/dL High 7-25 [facility] Comment on above: Performed By: #### C MP, MG, CBC ####[place] [id number] [facility] Glucose Poct Glucometerson 0 03-06-2025 Glucose [Mass/Vol] 163 mg/dL Normal [facility] Comment on above: Result Comment: [facility] [place] Glucose Reference Range is dependent on time and content of last meal. Glucose of more than 200 mg/dL in a nonstressed, ambulatory subject supports the diagnosis of Diabetes Mellitus.PERFORMED BY:[address] [place], [place] [phone] MEDICAL DIRECTORKEMAL ACKERMAN M.D. Performed By: #### G LULS ####Point of Care testing, Glucose [Mass/Vol] 178 mg/dL Normal [facility] Comment on above: Result Comment: [facility] [place] Glucose Reference Range is dependent on time and content of last meal. Glucose of more than 200 mg/dL in a nonstressed, ambulatory subject supports the diagnosis of Diabetes Mellitus.PERFORMED BY:[address] [place], [place] [phone] IONA ACKERMAN M.D. Performed By: #### G LULS ####Point of Care testing, Glucose [Mass/Vol] 133 mg/dL Normal [facility] Comment on above: Result Comment: [facility] [place] Glucose Reference Range is dependent on time and content of last meal. Glucose of more than 200 mg/dL in a nonstressed, ambulatory subject supports the diagnosis of Diabetes Mellitus.PERFORMED BY:[address] [place], [place] [phone] MEDICAL DIRECTORKEMAL ACKERMAN M.D. Performed By: #### G LULS ####Point of Care testing, Magnesiumon 03-06-2025 Magnesium [Mass/Vol] 1.8 mg/dL Low 1.9-2.7 [facility] Comment on above: Result Comment: PERF ORMED BY:[address] [place], [place] [phone] MEDICAL DIRECTORKEMAL ACKERMAN M.D. Performed By: #### C MP, MG, CBC ####[address] [place] [address] [facility] Comprehensive Metabolic Pane christiano 03-05-2025 Albumin [Mass/Vol] 3.0 g/dL Low 3.5-5.7 [facility] Comment on above: Performed By: #### C MP, SCAN CBC, MG ####[place] [id number] [facility] Albumin/Globulin [Mass ratio] 0.8 {ratio} Normal [facility] Comment on above: Performed By: #### C MP, SCAN CBC, MG ####[place] [id number] [facility] ALP [Catalytic activity/Vol] 64 U/L Normal 34-104 [facility] Comment on above: Performed By: #### C MP, SCAN CBC, MG ####[address] [address] [facility] ALT [Catalytic activity/Vol] 5 U/L Low 7-52 [facility] Comment on above: Performed By: #### C MP, SCAN CBC, MG ####[address] [address] [facility] Anion gap [Moles/Vol] 13.1 mmol/L Normal 6.0-15.0 [facility] Comment on above: Performed By: #### C MP, SCAN CBC, MG ####[address] [address] [facility] AST [Catalytic activity/Vol] 12 U/L Low 13-39 [facility] Comment on above: Performed By: #### C MP, SCAN CBC, MG ####[address] [address] [facility] Bilirubin [Mass/Vol] 0.2 mg/dL Low 0.3-1.0 [facility] Comment on above: Performed By: #### C MP, SCAN CBC, MG ####[place] [address] Calcium [Mass/Vol] 8.8 mg/dL Normal 8.6-10.3 [facility] Comment on above: Performed By: #### C MP, SCAN CBC, MG ####[place] [address] Chloride [Moles/Vol] 95 mmol/L Low 98-107 [facility] Comment on above: Performed By: #### C MP, SCAN CBC, MG ####[place] [address] CO2 [Moles/Vol] 27.7 mmol/L Normal 21.0-31.0 [facility] Comment on above: Performed By: #### C MP, SCAN CBC, MG ####[address] Creatinine [Mass/Vol] 4.40 mg/dL Significan t change up 0.60-1.20 [facility] Comment on above: Performed By: #### C MP, SCAN CBC, MG ####[address] Creatinine Clr Calc Pharmacy 14.52 Normal [facility] Comment on above: Performed By: #### C MP, SCAN CBC, MG ####[place] [address] Estimated GFR 11.314 mL/Min Normal [facility] Comment on above: Performed By: #### C MP, SCAN CBC, MG ####[place] [address] Globulin (S) [Mass/Vol] 3.6 g/dL Normal T [facility] Comment on above: Performed By: #### C MP, SCAN CBC, MG ####[place] [address] Glucose [Mass/Vol] 150 mg/dL High 70-100 [facility] Comment on above: Result Comment: [place] Glucose Reference Range is dependent on time and content of last meal. Glucose of more than 200 mg/dL in a nonstressed, ambulatory subject supports the diagnosis of Diabetes Mellitus. ADA recommended reference range Performed By: #### C MP, SCAN CBC, MG ####[facility] [place] [address] [facility] Potassium [Moles/Vol] 3.8 mmol/L Normal 3.5-5.1 [facility] Comment on above: Performed By: #### C MP, SCAN CBC, MG ####[facility] [place] [address] [facility] Protein [Mass/Vol] 6.6 g/dL Normal 6.4-8.9 [facility] Comment on above: Performed By: #### C MP, SCAN CBC, MG ####[place] [address] [place] [id number] [facility] Sodium [Moles/Vol] 132 mmol/L Low 136-145 [facility] Comment on above: Performed By: #### C MP, SCAN CBC, MG ####[place] [id number] [facility] Urea nitrogen [Mass/Vol] 23 mg/dL Normal 7-25 [facility] Comment on above: Performed By: #### C MP, SCAN CBC, MG ####[place] [address] [place] [id number] [facility] Glucose Poct Glucometerson 0 03-05-2025 Glucose [Mass/Vol] 184 mg/dL Normal [facility] Comment on above: Result Comment: [facility] [place] Glucose Reference Range is dependent on time and content of last meal. Glucose of more than 200 mg/dL in a nonstressed, ambulatory subject supports the diagnosis of Diabetes Mellitus.PERFORMED BY:[address] [place], [place] [phone] MEDICAL DIRECTORKEMAL ACKERMAN M.D. Performed By: #### G LULS ####Point of Care testing, Glucose [Mass/Vol] 182 mg/dL Normal [facility] Comment on above: Result Comment: [facility] [place] Glucose Reference Range is dependent on time and content of last meal. Glucose of more than 200 mg/dL in a nonstressed, ambulatory subject supports the diagnosis of Diabetes Mellitus.PERFORMED BY:[address] [place], [place] [phone] MEDICAL DIRECTORKEMAL ACKERMAN M.D. Performed By: #### G LULS ####Point of Care testing, Glucose [Mass/Vol] 175 mg/dL Normal [facility] Comment on above: Result Comment: [facility] [place] Glucose Reference Range is dependent on time and content of last meal. Glucose of more than 200 mg/dL in a nonstressed, ambulatory subject supports the diagnosis of Diabetes Mellitus.PERFORMED BY:[address] [place], [place] [phone] MEDICAL DIRECTORKEMAL ACKERMAN M.D. Performed By: #### G LULS ####Point of Care testing, Glucose [Mass/Vol] 162 mg/dL Normal [facility] Comment on above: Result Comment: [facility] [place] Glucose Reference Range is dependent on time and content of last meal. Glucose of more than 200 mg/dL in a nonstressed, ambulatory subject supports the diagnosis of Diabetes Mellitus.PERFORMED BY:[address] [place], [place] [phone] MEDICAL DIRECTORKEMAL ACKERMAN M.D. Performed By: #### G LULS ####Point of Care testing, Magnesiumon 03-05-2025 Magnesium [Mass/Vol] 1.9 mg/dL Normal 1.9-2.7 [facility] Comment on above: Result Comment: PERF ORMED BY:[address] [place], [place] [phone] MEDICAL DIRECTORKEMAL ACKERMAN M.D. Performed By: #### C MP, SCAN CBC, MG ####[address] [address] [facility] Scan and CBCon 03-05-2025 Basophils (Bld) [#/Vol] 0.1 10*3/uL Normal 0.0-0.2 [facility] Comment on above: Performed By: #### C MP, SCAN CBC, MG ####[address] Basophils/100 WBC (Bld) 1.0 % Normal . T [facility] Comment on above: Performed By: #### C MP, SCAN CBC, MG ####[address] Eosinophils (Bld) [#/Vol] 0.5 10*3/uL High 0.0-0.45 [facility] Comment on above: Performed By: #### C MP, SCAN CBC, MG ####[address] Eosinophils/100 WBC (Bld) 3.7 % Normal . [facility] Comment on above: Performed By: #### C MP, SCAN CBC, MG ####[address] Erythrocyte distribution width (RBC) [Ratio] 13.8 % Normal 11.9-15.3 [facility] Comment on above: Performed By: #### C MP, SCAN CBC, MG ####[address] Hematocrit (Bld) [Volume fraction] 25.0 % Low 34.0-46.4 [facility] Comment on above: Performed By: #### C MP, SCAN CBC, MG ####[address] Hemoglobin (Bld) [Mass/Vol] 7.9 g/dL Low 11.8-15.4 [facility] Comment on above: Performed By: #### C MP, SCAN CBC, MG ####[address] Lymphocytes (Bld) [#/Vol] 1.4 10*3/uL Normal 1.00-4.8 [facility] Comment on above: Performed By: #### C MP, SCAN CBC, MG ####[address] Lymphocytes/100 WBC (Bld) 11.0 % Normal . [facility] Comment on above: Performed By: #### C MP, SCAN CBC, MG ####[address] MCH (RBC) [Entitic mass] 26.9 pg Normal 24.7-34.3 [facility] Comment on above: Performed By: #### C MP, SCAN CBC, MG ####[address] MCV (RBC) [Entitic vol] 85.7 fL Normal 80-100 [facility] Comment on above: Performed By: #### C MP, SCAN CBC, MG ####[address] Mean Corpuscular HGB Conc 31.4 g/dL Low 32.0-35.0 [facility] Comment on above: Performed By: #### C MP, SCAN CBC, MG ####[address] Monocytes (Bld) [#/Vol] 1.7 10*3/uL High 0.0-0.8 [facility] Comment on above: Performed By: #### C MP, SCAN CBC, MG ####[address] Monocytes/100 WBC (Bld) 13.2 % Normal . [facility] Comment on above: Performed By: #### C MP, SCAN CBC, MG ####[address] Neutrophils (Bld) [#/Vol] 9.3 10*3/uL High 1.8-7.7 [facility] Comment on above: Performed By: #### C MP, SCAN CBC, MG ####[address] Neutrophils/100 WBC (Bld) 71.1 % Normal . [facility] Comment on above: Performed By: #### C MP, SCAN CBC, MG ####[address] NRBC% 0.1 /100{WBC} Normal 0-0.5 [facility] Comment on above: Performed By: #### C MP, SCAN CBC, MG ####[place] [id number] [facility] Platelet Estimate Normal Normal Normal [facility] Comment on above: Performed By: #### C MP, SCAN CBC, MG ####[address] Platelet mean volume (Bld) [Entitic vol] 9.5 fL Normal 6.3-10.7 [facility] Comment on above: Performed By: #### C MP, SCAN CBC, MG ####[address] Platelet Morphology Normal Normal Normal [facility] Comment on above: Result Comment: PERF ORMED BY:[address] [place] [phone] MEDICAL DIRECTORKEMAL ACKERMAN M.D. Performed By: #### C MP, SCAN CBC, MG ####[address] Platelets (Bld) [#/Vol] 237 10*3/uL Normal 150-450 [facility] Comment on above: Performed By: #### C MP, SCAN CBC, MG ####[address] RBC (Bld) [#/Vol] 2.92 10*6/uL Low 3.60-5.00 [facility] Comment on above: Performed By: #### C MP, SCAN CBC, MG ####[address] RBC morphology finding Nom (Bld) Normal Normal Normal [facility] Comment on above: Performed By: #### C MP, SCAN CBC, MG ####[address] WBC (Bld) [#/Vol] 13.1 10*3/uL High 3.8-11.6 [facility] Comment on above: Performed By: #### C MP, SCAN CBC, MG ####[address] Anisocytosis LM Ql (Bld)Orde red By: Becky Nash on 03-04-2025 Anisocytosis Ql (Bld) Anisocytosis [Pres ence] in Blood by Light microscopy [facility] Anisocytosis [Presence] in B lood by Light microscopyOrdered By: Becky Nash on 03-04-2025 Anisocytosis Ql (Bld) Moderate Normal [facility] Comment on above: Performed By: #### P HOS, MG, CMP, SCAN CBC ####[address] Comprehensive Metabolic Pane christiano 03-04-2025 Albumin [Mass/Vol] 2.9 g/dL Low 3.5-5.7 [facility] Comment on above: Performed By: #### P HOS, MG, CMP, SCAN CBC ####[address] Albumin/Globulin [Mass ratio] 1.0 {ratio} Normal [facility] Comment on above: Performed By: #### P HOS, MG, CMP, SCAN CBC ####[address] ALP [Catalytic activity/Vol] 64 U/L Normal 34-104 [facility] Comment on above: Performed By: #### P HOS, MG, CMP, SCAN CBC ####[address] ALT [Catalytic activity/Vol] 5 U/L Low 7-52 [facility] Comment on above: Performed By: #### P HOS, MG, CMP, SCAN CBC ####[address] Anion gap [Moles/Vol] 13.0 mmol/L Normal 6.0-15.0 Th e [facility] Comment on above: Performed By: #### P HOS, MG, CMP, SCAN CBC ####[address] AST [Catalytic activity/Vol] 12 U/L Low 13-39 [facility] Comment on above: Performed By: #### P HOS, MG, CMP, SCAN CBC ####[address] Bilirubin [Mass/Vol] 0.3 mg/dL Normal 0.3-1.0 [facility] Comment on above: Performed By: #### P HOS, MG, CMP, SCAN CBC ####[address] Calcium [Mass/Vol] 8.3 mg/dL Low 8.6-10.3 [facility] Comment on above: Performed By: #### P HOS, MG, CMP, SCAN CBC ####[address] Chloride [Moles/Vol] 96 mmol/L Low 98-107 [facility] Comment on above: Performed By: #### P HOS, MG, CMP, SCAN CBC ####[address] CO2 [Moles/Vol] 28.9 mmol/L Normal 21.0-31.0 [facility] Comment on above: Performed By: #### P HOS, MG, CMP, SCAN CBC ####[address] Creatinine [Mass/Vol] 3.45 mg/dL Significan t change up 0.60-1.20 [facility] Comment on above: Performed By: #### P HOS, MG, CMP, SCAN CBC ####[address] Creatinine Clr Calc Pharmacy 18.76 Normal [facility] Comment on above: Performed By: #### P HOS, MG, CMP, SCAN CBC ####[address] Estimated GFR 15.148 mL/Min Normal [facility] Comment on above: Performed By: #### P HOS, MG, CMP, SCAN CBC ####[place] [address] Globulin (S) [Mass/Vol] 2.9 g/dL Normal T [facility] Comment on above: Performed By: #### P HOS, MG, CMP, SCAN CBC ####[place] [id number] [facility] Glucose [Mass/Vol] 145 mg/dL High 70-100 [facility] Comment on above: Result Comment: [facility] [place] Glucose Reference Range is dependent on time and content of last meal. Glucose of more than 200 mg/dL in a nonstressed, ambulatory subject supports the diagnosis of Diabetes Mellitus. ADA recommended reference range Performed By: #### P HOS, MG, CMP, SCAN CBC ####[address] Potassium [Moles/Vol] 3.9 mmol/L Normal 3.5-5.1 [facility] Comment on above: Performed By: #### P HOS, MG, CMP, SCAN CBC ####[address] Protein [Mass/Vol] 5.8 g/dL Low 6.4-8.9 [facility] Comment on above: Performed By: #### P HOS, MG, CMP, SCAN CBC ####[place] [id number] [facility] Sodium [Moles/Vol] 134 mmol/L Low 136-145 [facility] Comment on above: Performed By: #### P HOS, MG, CMP, SCAN CBC ####[place] [id number] [facility] Urea nitrogen [Mass/Vol] 18 mg/dL Normal 7-25 [facility] Comment on above: Performed By: #### P HOS, MG, CMP, SCAN CBC ####[place] [id number] [facility] ECG 12 lead ECGon 03-04-2025 ECG 12 lead ECG Normal [facility] Glucose Poct Glucometerson 0 03-04-2025 Glucose [Mass/Vol] 211 mg/dL Normal [facility] Comment on above: Result Comment: [facility] [place] Glucose Reference Range is dependent on time and content of last meal. Glucose of more than 200 mg/dL in a nonstressed, ambulatory subject supports the diagnosis of Diabetes Mellitus.PERFORMED BY:[address] [place], [place] [phone] MEDICAL DIRECTORKEMAL ACKERMAN M.D. Performed By: #### G LULS ####Point of Care testing, Glucose [Mass/Vol] 182 mg/dL Normal [facility] Comment on above: Result Comment: [facility] [place] Glucose Reference Range is dependent on time and content of last meal. Glucose of more than 200 mg/dL in a nonstressed, ambulatory subject supports the diagnosis of Diabetes Mellitus.PERFORMED BY:[place] [address] [address] [place], [place] [phone] MEDICAL DIRECTORKEMAL ACKERMAN M.D. Performed By: #### G LULS ####Point of Care testing, Glucose [Mass/Vol] 156 mg/dL Normal [facility] Comment on above: Result Comment: [facility] [place] Glucose Reference Range is dependent on time and content of last meal. Glucose of more than 200 mg/dL in a nonstressed, ambulatory subject supports the diagnosis of Diabetes Mellitus.PERFORMED BY:[place] [address] [address] [place], [place] [phone] MEDICAL DIRECTORKEMAL ACKERMAN M.D. Performed By: #### G LULS ####Point of Care testing, Commemt1 Glu2: Cleaned Meter Normal [facility] Comment on above: Performed By: #### G LULS ####Point of Care testing, Commemt2 WILL NOTIFY DR/SALTY Normal [facility] Comment on above: Result Comment: PERF ORMED BY:[place] [address] [address] [place], [place] [phone] MEDICAL DIRECTORMOCINDY ACKERMAN M.D. Performed By: #### G LULS ####Point of Care testing, Glucose [Mass/Vol] 236 mg/dL Normal [facility] Comment on above: Result Comment: [facility] [place] Glucose Reference Range is dependent on time and content of last meal. Glucose of more than 200 mg/dL in a nonstressed, ambulatory subject supports the diagnosis of Diabetes Mellitus. Performed By: #### G LULS ####Point of Care testing, Hypochromia LM Ql (Bld)Order ed By: Becky Nash on 03-04-2025 Hypochromia Ql (Bld) Hypochromia [Presen ce] in Blood by Light microscopy [facility] Hypochromia Ql (Bld) Slight [facility] Magnesiumon 03-04-2025 Magnesium [Mass/Vol] 1.8 mg/dL Low 1.9-2.7 [facility] Comment on above: Result Comment: PERF ORMED BY:[address] [place], [place] [phone] MEDICAL DIRECTORKEMAL ACKERMAN M.D. Performed By: #### P HOS, MG, CMP, SCAN CBC ####[address] No Panel InformationOrdered By: Becky Nash on 03-04-2025 Bedside Glucose #[address]/salty [facility] Phosphoruson 03-04-2025 Phosphate [Mass/Vol] 2.6 mg/dL Normal 2.5-4.5 [facility] Comment on above: Performed By: #### P HOS, MG, CMP, SCAN CBC ####[address] Scan and CBCon 03-04-2025 Basophils (Bld) [#/Vol] 0.2 10*3/uL Normal 0.0-0.2 [facility] Comment on above: Performed By: #### P HOS, MG, CMP, SCAN CBC ####[address] Basophils/100 WBC (Bld) 1.1 % Normal . T valery [facility] Comment on above: Performed By: #### P HOS, MG, CMP, SCAN CBC ####[address] Eosinophils (Bld) [#/Vol] 0.5 10*3/uL High 0.0-0.45 [facility] Comment on above: Performed By: #### P HOS, MG, CMP, SCAN CBC ####[address] Eosinophils/100 WBC (Bld) 3.2 % Normal . [facility] Comment on above: Performed By: #### P HOS, MG, CMP, SCAN CBC ####[address] Erythrocyte distribution width (RBC) [Ratio] 13.9 % Normal 11.9-15.3 [facility] Comment on above: Performed By: #### P HOS, MG, CMP, SCAN CBC ####[address] Hematocrit (Bld) [Volume fraction] 24.8 % Low 34.0-46.4 [facility] Comment on above: Performed By: #### P HOS, MG, CMP, SCAN CBC ####[address] Hemoglobin (Bld) [Mass/Vol] 7.8 g/dL Low 11.8-15.4 [facility] Comment on above: Performed By: #### P HOS, MG, CMP, SCAN CBC ####[address] Hypochromasia Slight Normal [facility] Comment on above: Performed By: #### P HOS, MG, CMP, SCAN CBC ####[address] Lymphocytes (Bld) [#/Vol] 1.6 10*3/uL Normal 1.00-4.8 [facility] Comment on above: Performed By: #### P HOS, MG, CMP, SCAN CBC ####[address] Lymphocytes/100 WBC (Bld) 10.6 % Normal . [facility] Comment on above: Performed By: #### P HOS, MG, CMP, SCAN CBC ####[address] MCH (RBC) [Entitic mass] 27.0 pg Normal 24.7-34.3 [facility] Comment on above: Performed By: #### P HOS, MG, CMP, SCAN CBC ####[address] MCV (RBC) [Entitic vol] 86.3 fL Normal 80-100 [facility] Comment on above: Performed By: #### P HOS, MG, CMP, SCAN CBC ####[address] Mean Corpuscular HGB Conc 31.3 g/dL Low 32.0-35.0 [facility] Comment on above: Performed By: #### P HOS, MG, CMP, SCAN CBC ####[address] Monocytes (Bld) [#/Vol] 2.1 10*3/uL High 0.0-0.8 [facility] Comment on above: Performed By: #### P HOS, MG, CMP, SCAN CBC ####[address] Monocytes/100 WBC (Bld) 13.8 % Normal . [facility] Comment on above: Performed By: #### P HOS, MG, CMP, SCAN CBC ####[address] Neutrophils (Bld) [#/Vol] 10.8 10*3/uL High 1.8-7.7 [facility] Comment on above: Performed By: #### P HOS, MG, CMP, SCAN CBC ####[address] Neutrophils/100 WBC (Bld) 71.3 % Normal . [facility] Comment on above: Performed By: #### P HOS, MG, CMP, SCAN CBC ####[address] NRBC% 0.1 /100{WBC} Normal 0-0.5 [facility] Comment on above: Performed By: #### P HOS, MG, CMP, SCAN CBC ####[address] Platelet Estimate Normal Normal Normal [facility] Comment on above: Performed By: #### P HOS, MG, CMP, SCAN CBC ####[address] Platelet mean volume (Bld) [Entitic vol] 9.7 fL Normal 6.3-10.7 [facility] Comment on above: Performed By: #### P HOS, MG, CMP, SCAN CBC ####[address] Platelet Morphology Normal Normal Normal [facility] Comment on above: Result Comment: PERF ORMED BY:[address] [place], [place] [phone] MEDICAL JUANA ACKERMAN M.D. Performed By: #### P HOS, MG, CMP, SCAN CBC ####[place] [id number] [facility] Platelets (Bld) [#/Vol] 218 10*3/uL Normal 150-450 [facility] Comment on above: Performed By: #### P HOS, MG, CMP, SCAN CBC ####[place] [id number] [facility] RBC (Bld) [#/Vol] 2.87 10*6/uL Low 3.60-5.00 [facility] Comment on above: Performed By: #### P HOS, MG, CMP, SCAN CBC ####[address] WBC (Bld) [#/Vol] 15.1 10*3/uL High 3.8-11.6 [facility] Comment on above: Performed By: #### P HOS, MG, CMP, SCAN CBC ####[address] Comprehensive Metabolic Pane christiano 03-03-2025 Albumin [Mass/Vol] 3.0 g/dL Low 3.5-5.7 [facility] Comment on above: Performed By: #### M G, SCAN CBC, CMP ####[address] Albumin/Globulin [Mass ratio] 0.9 {ratio} Normal [facility] Comment on above: Performed By: #### M G, SCAN CBC, CMP ####[address] ALP [Catalytic activity/Vol] 65 U/L Normal 34-104 [facility] Comment on above: Performed By: #### M G, SCAN CBC, CMP ####[address] ALT [Catalytic activity/Vol] 3 U/L Low 7-52 [facility] Comment on above: Performed By: #### M G, SCAN CBC, CMP ####[address] Anion gap [Moles/Vol] 13.6 mmol/L Normal 6.0-15.0 e [facility] Comment on above: Performed By: #### M G, SCAN CBC, CMP ####[address] AST [Catalytic activity/Vol] 12 U/L Low 13-39 [facility] Comment on above: Performed By: #### M G, SCAN CBC, CMP ####[address] Bilirubin [Mass/Vol] 0.2 mg/dL Low 0.3-1.0 [facility] Comment on above: Performed By: #### M G, SCAN CBC, CMP ####[address] [place] [address] [place] Calcium [Mass/Vol] 8.7 mg/dL Normal 8.6-10.3 [facility] Comment on above: Performed By: #### M G, SCAN CBC, CMP ####[address] Chloride [Moles/Vol] 96 mmol/L Low 98-107 [facility] Comment on above: Performed By: #### M G, SCAN CBC, CMP ####[address] CO2 [Moles/Vol] 26.0 mmol/L Normal 21.0-31.0 [facility] [facility] Comment on above: Performed By: #### M G, SCAN CBC, CMP ####[address] Creatinine [Mass/Vol] 4.69 mg/dL Significan t change up 0.60-1.20 [facility] Comment on above: Performed By: #### M G, SCAN CBC, CMP ####[address] Creatinine Clr Calc Pharmacy 13.79 Normal [facility] Comment on above: Performed By: #### M G, SCAN CBC, CMP ####[address] Estimated GFR 10.480 mL/Min Normal [facility] Comment on above: Performed By: #### M G, SCAN CBC, CMP ####[address] Globulin (S) [Mass/Vol] 3.4 g/dL Normal [facility] Comment on above: Performed By: #### M G, SCAN CBC, CMP ####[address] Glucose [Mass/Vol] 164 mg/dL High 70-100 [facility] Comment on above: Result Comment: [place] Glucose Reference Range is dependent on time and content of last meal. Glucose of more than 200 mg/dL in a nonstressed, ambulatory subject supports the diagnosis of Diabetes Mellitus. ADA recommended reference range Performed By: #### M G, SCAN CBC, CMP ####[facility] [place] [address] [facility] Potassium [Moles/Vol] 3.6 mmol/L Normal 3.5-5.1 [facility] Comment on above: Performed By: #### M G, SCAN CBC, CMP ####[facility] [place] [address] [facility] Protein [Mass/Vol] 6.4 g/dL Normal 6.4-8.9 [facility] Comment on above: Performed By: #### M G, SCAN CBC, CMP ####[facility] [place] [address] [facility] Sodium [Moles/Vol] 132 mmol/L Low 136-145 [facility] Comment on above: Performed By: #### M G, SCAN CBC, CMP ####[place] [address] [place] [id number] [facility] Urea nitrogen [Mass/Vol] 27 mg/dL High 7-25 [facility] Comment on above: Performed By: #### M G, SCAN CBC, CMP ####[place] [address] [place] [id number] [facility] Glucose Poct Glucometerson 0 - Glucose [Mass/Vol] 209 mg/dL Normal [facility] Comment on above: Result Comment: [facility] [place] Glucose Reference Range is dependent on time and content of last meal. Glucose of more than 200 mg/dL in a nonstressed, ambulatory subject supports the diagnosis of Diabetes Mellitus.PERFORMED BY:[address] [place], [place] [phone] MEDICAL DIRECTORKEMAL ACKERMAN M.D. Performed By: #### G LULS ####Point of Care testing, Glucose [Mass/Vol] 255 mg/dL Normal [facility] Comment on above: Result Comment: [facility] [place] Glucose Reference Range is dependent on time and content of last meal. Glucose of more than 200 mg/dL in a nonstressed, ambulatory subject supports the diagnosis of Diabetes Mellitus.PERFORMED BY:[place] [address] [address] RICKJohanaCassieAM[place], [place] [phone] MEDICAL DIRECTORKEMAL ACKERMAN M.D. Performed By: #### G LULS ####Point of Care testing, Glucose [Mass/Vol] 218 mg/dL Normal [facility] Comment on above: Result Comment: [facility] Glucose Reference Range is dependent on time and content of last meal. Glucose of more than 200 mg/dL in a nonstressed, ambulatory subject supports the diagnosis of Diabetes Mellitus.PERFORMED BY:[place] [address] [address] [place]ICKJohanaCassieAM[place], [place] [phone] MEDICAL DIRECTORKEMAL ACKERMAN M.D. Performed By: #### G LULS ####Point of Care testing, Commemt1 Glu2: Cleaned Meter Normal [facility] Comment on above: Result Comment: PERF ORMED BY:[address] [place], [place] [phone] MEDICAL DIRECTORKEMAL ACKERMAN M.D. Performed By: #### G LULS ####Point of Care testing, Glucose [Mass/Vol] 161 mg/dL Normal [facility] Comment on above: Result Comment: [facility] om Glucose Reference Range is dependent on time and content of last meal. Glucose of more than 200 mg/dL in a nonstressed, ambulatory subject supports the diagnosis of Diabetes Mellitus. Performed By: #### G LULS ####Point of Care testing, Immunofixation,Serumon 03-03 Immunofixation, Serum Comment: Normal . [facility] Comment on above: Result Comment: Pres ence of monoclonal protein is unclear at this time. Suggest repeat in 3 to 6 months if clinically indicated. Performed By: #### S PE W RFX GA, GA SERUM ####[facility] , Immunoglobulin A, Serum 271 mg/dL Normal 87-352 [facility] Comment on above: Performed By: #### S PE W RFX GA, GA SERUM ####[facility] , Immunoglobulin G 891 mg/dL Normal 586-1602 [facility] Comment on above: Performed By: #### S PE W RFX GA, GA SERUM ####[facility] , Immunoglobulin M, Serum 125 mg/dL Normal 26-217 [facility] Comment on above: Result Comment: Perf ormed at: - [facility] [address] [id number] [employer] Developer: Louis Hansen PhD, Phone: [phone] BY:[facility] [place] [address] [place]ie[place]EM[place], [place] [phone] MEDICAL DIRECTORKEMAL ACKERMAN M.D. Performed By: #### S PE W RFX GA, GA SERUM ####[facility] , Magnesiumon 03-03-2025 Magnesium [Mass/Vol] 2.0 mg/dL Normal 1.9-2.7 [facility] Comment on above: Result Comment: PERF ORMED BY:[facility]ITALJC DIAZCassieCLAREMONT, [place] [phone] MEDICAL DIRECTORKEMAL ACKERMAN M.D. Performed By: #### M G, SCAN CBC, CMP ####[facility] [address] [place] [address] [facility] Microcytes LM Ql (Bld)Ordere d By: Becky Nash on 03-03-2025 Microcytes Ql (Bld) Microcytes [Presence ] in Blood by Light microscopy [facility] Microcytes Ql (Bld) Slight [facility] No Panel InformationOrdered By: Jessica Christian on 03-03-2025 Protein Electrophoresis M-Cachorro Comment: g/dL Not Observed [facility] Comment on above: SPE shows an asymmet rical gamma. Protein Electrophoresis Note Comment . [facility] Comment on above: Protein electrophore sis scan will follow via computer,mail, or automatic embroidery machine tender delivery. Serum Immunofixation Reflexed . . [facility] Ovalocytes [Presence] in Blo od by Light microscopyOrdered By: Becky Nash on 03-03-2025 Ovalocytes LM Ql (Bld) Ovalocyte detection [facility] Ovalocytes LM Ql (Bld) Slight [facility] Polychromasia [Presence] in Blood by Light microscopyOrdered By: Becky Nash on 03-03-2025 Polychromasia LM Ql (Bld) Polychromasia [Presence] in Blood by Light microscopy [facility] Polychromasia LM Ql (Bld) Slight [facility] Prot Electrophor w/reflex IF Angel 03-03-2025 Kbfob-7-Cuinmqxn 0.5 g/dL High 0.0-0.4 [facility] Comment on above: Performed By: #### S PE W RFX GA, GA SERUM ####[facility] , Jgnub-6-Vbxbabfd 1.3 g/dL High 0.4-1.0 [facility] Comment on above: Performed By: #### S PE W RFX GA, GA SERUM ####[facility] , Beta Globulin 0.7 g/dL Normal 0.7-1.3 [facility] Comment on above: Performed By: #### S PE W RFX GA, GA SERUM ####[facility] , Gamma Globulin 0.8 g/dL Normal 0.4-1.8 [facility] Comment on above: Performed By: #### S PE W RFX GA, GA SERUM ####[facility] , Immunofixation Reflex . Normal . [facility] Comment on above: Performed By: #### S PE W RFX GA, GA SERUM ####[facility] , Immunofixation Result Comment: Normal . [facility] Comment on above: Result Comment: Pres ence of monoclonal protein is unclear at this time. Suggest repeat in 3 to 6 months if clinically indicated. Performed at: [facility] [id number] [employer] Developer: Louis Hansen PhD, Phone: [phone] Performed By: #### S PE W RFX GA, GA SERUM ####[facility] , M-Cachorro Comment: Normal Not Observed [facility] Comment on above: Result Comment: SPE shows an asymmetrical gamma. Performed By: #### S PE W RFX GA, GA SERUM ####[facility] , SPE-Note Comment Normal . [facility] Comment on above: Result Comment: Prot ein electrophoresis scan will follow via computer, mail, or automatic embroidery machine tender delivery. Performed By: #### S PE W RFX GA, GA SERUM ####[facility] , Scan and CBCon 03-03-2025 Anisocytosis Ql (Bld) Slight Normal [facility] Comment on above: Performed By: #### M G, SCAN CBC, CMP ####[place] [id number] [facility] Basophils (Bld) [#/Vol] 0.1 10*3/uL Normal 0.0-0.2 [facility] Comment on above: Performed By: #### M G, SCAN CBC, CMP ####[place] [id number] [facility] Basophils/100 WBC (Bld) 0.8 % Normal . T valery [facility] Comment on above: Performed By: #### M G, SCAN CBC, CMP ####[address] [address] [facility] Eosinophils (Bld) [#/Vol] 0.6 10*3/uL High 0.0-0.45 [facility] Comment on above: Performed By: #### M G, SCAN CBC, CMP ####[address] [address] [facility] Eosinophils/100 WBC (Bld) 4.1 % Normal . [facility] Comment on above: Performed By: #### M G, SCAN CBC, CMP ####[place] [id number] [facility] Erythrocyte distribution width (RBC) [Ratio] 13.9 % Normal 11.9-15.3 [facility] Comment on above: Performed By: #### M G, SCAN CBC, CMP ####[address] Hematocrit (Bld) [Volume fraction] 24.1 % Low 34.0-46.4 [facility] Comment on above: Performed By: #### M G, SCAN CBC, CMP ####[address] Hemoglobin (Bld) [Mass/Vol] 7.7 g/dL Low 11.8-15.4 [facility] Comment on above: Performed By: #### M G, SCAN CBC, CMP ####[address] Lymphocytes (Bld) [#/Vol] 1.3 10*3/uL Normal 1.00-4.8 [facility] Comment on above: Performed By: #### M G, SCAN CBC, CMP ####[address] Lymphocytes/100 WBC (Bld) 8.4 % Normal . [facility] Comment on above: Performed By: #### M G, SCAN CBC, CMP ####[address] MCH (RBC) [Entitic mass] 27.7 pg Normal 24.7-34.3 [facility] Comment on above: Performed By: #### M G, SCAN CBC, CMP ####[address] MCV (RBC) [Entitic vol] 86.8 fL Normal 80-100 [facility] Comment on above: Performed By: #### M G, SCAN CBC, CMP ####[address] Mean Corpuscular HGB Conc 31.9 g/dL Low 32.0-35.0 [facility] Comment on above: Performed By: #### M G, SCAN CBC, CMP ####[address] Microcytosis Slight Normal [facility] Comment on above: Performed By: #### M G, SCAN CBC, CMP ####[address] Monocytes (Bld) [#/Vol] 2.0 10*3/uL High 0.0-0.8 [facility] Comment on above: Performed By: #### M G, SCAN CBC, CMP ####[address] Monocytes/100 WBC (Bld) 12.5 % Normal . T valery [facility] Comment on above: Performed By: #### M G, SCAN CBC, CMP ####[address] Neutrophils (Bld) [#/Vol] 11.6 10*3/uL High 1.8-7.7 [facility] Comment on above: Performed By: #### M G, SCAN CBC, CMP ####[address] Neutrophils/100 WBC (Bld) 74.2 % Normal . [facility] Comment on above: Performed By: #### M G, SCAN CBC, CMP ####[address] NRBC% 0.2 /100{WBC} Normal 0-0.5 [facility] Comment on above: Performed By: #### M G, SCAN CBC, CMP ####[address] Ovalocytes Slight Normal [facility] Comment on above: Performed By: #### M G, SCAN CBC, CMP ####[address] Platelet Estimate Normal Normal Normal [facility] Comment on above: Performed By: #### M G, SCAN CBC, CMP ####[address] Platelet mean volume (Bld) [Entitic vol] 10.3 fL Normal 6.3-10.7 [facility] Comment on above: Performed By: #### M G, SCAN CBC, CMP ####[address] [address] [facility] Platelet Morphology Normal Normal Normal [facility] Comment on above: Result Comment: PERF ORMED BY:[address] [place], [place] [phone] MEDICAL DIRECTORKEMAL ACKERMAN M.D. Performed By: #### M G, SCAN CBC, CMP ####[address] [address] [facility] Platelets (Bld) [#/Vol] 214 10*3/uL Normal 150-450 [facility] Comment on above: Performed By: #### M G, SCAN CBC, CMP ####[address] [address] [facility] Polychromasia Slight Normal [facility] Comment on above: Performed By: #### M G, SCAN CBC, CMP ####[place] [id number] [facility] RBC (Bld) [#/Vol] 2.77 10*6/uL Low 3.60-5.00 [facility] Comment on above: Performed By: #### M G, SCAN CBC, CMP ####[address] [address] [facility] Stomatocytes Slight Normal [facility] Comment on above: Performed By: #### M G, SCAN CBC, CMP ####[place] [id number] [facility] WBC (Bld) [#/Vol] 15.7 10*3/uL High 3.8-11.6 [facility] Comment on above: Performed By: #### M G, SCAN CBC, CMP ####[place] [id number] [facility] Serum globulin measurement ( mass/volume)Ordered By: Jessica Christian on 03-03-2025 Globulin (S) [Mass/Vol] Serum globulin measurement (mass/volume) 2.2-3.9 [facility] Globulin (S) [Mass/Vol] 3.2 g/dL Normal 2.2-3.9 [facility] Comment on above: Performed By: #### S PE W RFX GA, GA SERUM ####[facility] , Serum immunofixation electro phoresisOrdered By: Jessica Christian on 03-03-2025 Serum Immunofixation Comment: . [facility] Comment on above: Presence of monoclon al protein is unclear at this time. Suggestrepeat in 3 to 6 months if clinically indicated. Serum or plasma IgA measurem ent (mass/volume)Ordered By: Jessica Christian on 03-03-2025 IgA [Mass/Vol] IgA [Mass/volume] in Serum or Plasma 87-352 [facility] IgA [Mass/Vol] 271 mg/dL 87-352 [facility] Serum or plasma IgG measurem ent (mass/volume)Ordered By: Jessica Christian on 03-03-2025 IgG [Mass/Vol] IgG [Mass/volume] in Serum or Plasma [phone] [facility] IgG [Mass/Vol] 891 mg/dL [phone] [facility] Serum or plasma IgM measurem ent (mass/volume)Ordered By: Jessica Christian on 03-03-2025 IgM [Mass/Vol] IgM [Mass/volume] in Serum or Plasma [facility] Comment on above: Performed at: [facility] [place] [id number] Director: Louis Hansen PhD, Phone: [phone] IgM [Mass/Vol] 125 mg/dL [facility] Comment on above: Performed at: [facility] [place], [place] [id number] Director: Louis Hansen PhD, Phone: [phone] Serum or plasma albumin magy urement (mass/volume)Ordered By: Jessica Christian on 03-03-2025 Albumin [Mass/Vol] Albumin [Mass/volume ] in Serum or Plasma Low 2.9-4.4 [facility] Albumin [Mass/Vol] 2.5 g/dL Low 2.9-4.4 [facility] Comment on above: Performed By: #### S PE W RFX GA, GA SERUM ####[facility] , Serum or plasma albumin/glob ulin mass ratioOrdered By: Jessica Christian on 03-03-2025 Albumin/Globulin [Mass ratio] Serum or plasma albumin/globulin mass ratio 0.7-1.7 [facility] Albumin/Globulin [Mass ratio] 0.8 {ratio} Normal 0.7-1.7 [facility] Comment on above: Performed By: #### S PE W RFX GA, GA SERUM ####[facility] , Serum or plasma alpha 1 glob ulin measurement by electrophoresis (mass/volume)Ordered By: Jessica Christian on 03-03-2025 Alpha 1 globulin Elph [Mass/Vol] Serum or plasma alpha 1 globulin measurement by electrophoresis (mass/volume) High 0.0-0.4 [facility] Alpha 1 globulin Elph [Mass/Vol] 0.5 g/dL High 0.0-0.4 [facility] Serum or plasma alpha 2 glob ulin measurement by electrophoresis (mass/volume)Ordered By: Jessica Christian on 03-03-2025 Alpha 2 globulin Elph [Mass/Vol] Serum or plasma alpha 2 globulin measurement by electrophoresis (mass/volume) High 0.4-1.0 [facility] Alpha 2 globulin Elph [Mass/Vol] 1.3 g/dL High 0.4-1.0 [facility] Serum or plasma beta globuli n measurement by electrophoresis (mass/volume)Ordered By: Jessica Christian on 03-03-2025 Beta globulin Elph [Mass/Vol] Serum or plasma beta globulin measurement by electrophoresis (mass/volume) 0.7-1.3 [facility] Beta globulin Elph [Mass/Vol] 0.7 g/dL 0.7-1.3 [facility] Serum or plasma gamma globul in measurement by electrophoresis (mass/volume)Ordered By: Jessica Christian on 03-03-2025 Gamma globulin Elph [Mass/Vol] Serum or plasma gamma globulin measurement by electrophoresis (mass/volume) 0.4-1.8 [facility] Gamma globulin Elph [Mass/Vol] 0.8 g/dL 0.4-1.8 [facility] Serum or plasma immunoelectr ophoresis interpretationOrdered By: Jessica Christian on 03-03-2025 Interpretation IEP [Interp] Serum or plasma immunoelectrophoresis interpretation . [facility] Comment on above: Presence of monoclon al protein is unclear at this time. Suggestrepeat in 3 to 6 months if clinically indicated.Performed at: [facility] [id number] Director: Louis Hansen PhD, Phone: [phone] Interpretation IEP [Interp] Comment: . [facility] Comment on above: Presence of monoclon al protein is unclear at this time. Suggestrepeat in 3 to 6 months if clinically indicated.Performed at: [facility] [id number] Director: Louis Hansen PhD, Phone: [phone] Serum total protein measurem entOrdered By: Jessica Christian on 03-03-2025 Protein [Mass/Vol] Protein [Mass/volume ] in Serum or Plasma Low 6.0-8.5 [facility] Protein [Mass/Vol] 5.7 g/dL Low 6.0-8.5 [facility] Comment on above: Performed By: #### S PE W RFX GA, GA SERUM ####[facility] , Stomatocytes [Presence] in B lood by Light microscopyOrdered By: Becky Nash on 03-03-2025 Stomatocytes LM Ql (Bld) Red blood cell stomatocyte detection [facility] Stomatocytes LM Ql (Bld) Slight [facility] Clostridioides difficile tox in B tcdB gene [Presence] in Stool by CIPRIANO with probe deteOrdered By: Becky Nash on 03-02-2025 C. difficile toxin B tcdB gene CIPRIANO+probe Ql (Stl) Clostridioides difficile toxin B tcdB gene [Presence] in Stool by CIPRIANO with probe dete Negative [facility] Comment on above: Testing performed by RT-PCR C. difficile toxin B tcdB gene CIPRIANO+probe Ql (Stl) Positive Negative [facility] Comment on above: Testing performed by RT-PCR Clostridium Difficileon Clostridium Difficile Positive Invalid Interpretation Code Negative [facility] Comment on above: Order Comment: Criti yg value result called at 1827 on 03/02/25 > or = to 3 loose/watery stools in the last 24 HRS? Y Is patient on promotility agents or tube feeding? N Result Comment: Test ing performed by RT-PCRPERFORMED BY:[place] [address] [address] [place], [place] [phone] MEDICAL DIRECTORKEMAL ACKERMAN M.D. Performed By: #### C DT ####[place] [id number] [facility] Complete Blood Count Auto Di ffon 03-02-2025 Basophils (Bld) [#/Vol] 0.2 10*3/uL Normal 0.0-0.2 [facility] Comment on above: Result Comment: PERF ORMED BY:[place] [address] [address] RODRIGUEZAM[place], [place] [phone] MEDICAL DIRECTORKEMAL ACKERMAN M.D. Performed By: #### C BC ####[place] [id number] [facility] Basophils/100 WBC (Bld) 1.0 % Normal . T valery [facility] Comment on above: Performed By: #### C BC ####[place] [address] [facility] Eosinophils (Bld) [#/Vol] 0.6 10*3/uL High 0.0-0.45 [facility] Comment on above: Performed By: #### C BC ####[place] [address] [facility] Eosinophils/100 WBC (Bld) 2.8 % Normal . [facility] Comment on above: Performed By: #### C BC ####[place] [address] [facility] Erythrocyte distribution width (RBC) [Ratio] 13.7 % Normal 11.9-15.3 [facility] Comment on above: Performed By: #### C BC ####[place] [address] [facility] Hematocrit (Bld) [Volume fraction] 25.8 % Low 34.0-46.4 [facility] Comment on above: Performed By: #### C BC ####[place] [address] [facility] Hemoglobin (Bld) [Mass/Vol] 8.2 g/dL Low 11.8-15.4 [facility] Comment on above: Performed By: #### C BC ####[place] [address] [facility] Lymphocytes (Bld) [#/Vol] 1.8 10*3/uL Normal 1.00-4.8 [facility] Comment on above: Performed By: #### C BC ####[place] [address] [facility] Lymphocytes/100 WBC (Bld) 8.7 % Normal . [facility] Comment on above: Performed By: #### C BC ####[place] [address] [facility] MCH (RBC) [Entitic mass] 27.7 pg Normal 24.7-34.3 [facility] Comment on above: Performed By: #### C BC ####[place] [address] [facility] MCV (RBC) [Entitic vol] 87.4 fL Normal 80-100 [facility] Comment on above: Performed By: #### C BC ####[place] [address] [facility] Mean Corpuscular HGB Conc 31.7 g/dL Low 32.0-35.0 [facility] Comment on above: Performed By: #### C BC ####[address] Monocytes (Bld) [#/Vol] 2.1 10*3/uL High 0.0-0.8 [facility] Comment on above: Performed By: #### C BC ####[address] Monocytes/100 WBC (Bld) 10.4 % Normal . [facility] Comment on above: Result Comment: Abso lute monocytosis is commonly reactive in nature. However, if unexplained, recommend follow-up CBC in 3 months to evaluate for persistence. Performed By: #### C BC ####[address] Neutrophils (Bld) [#/Vol] 15.8 10*3/uL High 1.8-7.7 [facility] Comment on above: Performed By: #### C BC ####[address] Neutrophils/100 WBC (Bld) 77.1 % Normal . [facility] Comment on above: Performed By: #### C BC ####[address] NRBC% 0.0 /100{WBC} Normal 0-0.5 [facility] Comment on above: Performed By: #### C BC ####[address] Platelet mean volume (Bld) [Entitic vol] 9.7 fL Normal 6.3-10.7 [facility] Comment on above: Performed By: #### C BC ####[place] [address] [facility] Platelets (Bld) [#/Vol] 256 10*3/uL Normal 150-450 [facility] Comment on above: Performed By: #### C BC ####[address] RBC (Bld) [#/Vol] 2.95 10*6/uL Low 3.60-5.00 [facility] Comment on above: Performed By: #### C BC ####[place] [id number] [facility] [facility] WBC (Bld) [#/Vol] 20.5 10*3/uL High 3.8-11.6 [facility] Comment on above: Performed By: #### C BC ####[place] [id number] [facility] Comprehensive Metabolic Pane christiano 03-02-2025 Albumin [Mass/Vol] 3.3 g/dL Low 3.5-5.7 [facility] Comment on above: Performed By: #### MAINOR Grace, CMP ####[place] [id number] [facility] Albumin/Globulin [Mass ratio] 0.9 {ratio} Normal [facility] Comment on above: Performed By: #### MAINOR Grace, CMP ####[place] [id number] [facility] ALP [Catalytic activity/Vol] 63 U/L Normal 34-104 [facility] Comment on above: Performed By: #### MAINOR Grace, CMP ####[place] [id number] [facility] ALT [Catalytic activity/Vol] U/L Low 7-52 [facility] Comment on above: Performed By: #### MAINOR Grace, CMP ####[place] [id number] [facility] Anion gap [Moles/Vol] 13.8 mmol/L Normal 6.0-15.0 [facility] Comment on above: Performed By: #### MAINOR Grace, CMP ####[place] [id number] [facility] AST [Catalytic activity/Vol] 11 U/L Low 13-39 [facility] Comment on above: Performed By: #### MAINOR Grace, CMP ####[place] [id number] [facility] Bilirubin [Mass/Vol] 0.3 mg/dL Normal 0.3-1.0 [facility] Comment on above: Performed By: #### Jeremiah Gordillo PHOS, CMP ####[address] Calcium [Mass/Vol] 8.6 mg/dL Normal 8.6-10.3 [facility] Comment on above: Performed By: #### Jeremiah Gordillo PHOS, CMP ####[address] Chloride [Moles/Vol] 96 mmol/L Low 98-107 [facility] Comment on above: Performed By: #### Jeremiah Gordillo PHOS, CMP ####[address] CO2 [Moles/Vol] 26.1 mmol/L Normal 21.0-31.0 [facility] Comment on above: Performed By: #### DYLAN GraceS, CMP ####[address] Creatinine [Mass/Vol] 3.63 mg/dL Significan t change up 0.60-1.20 [facility] Comment on above: Performed By: #### MAINOR Grace, CMP ####[address] Creatinine Clr Calc Pharmacy 17.59 Normal [facility] Comment on above: Performed By: #### DYLAN GraceS, CMP ####[address] Estimated GFR 14.251 mL/Min Normal [facility] Comment on above: Performed By: #### Jeremiah Gordillo PHOS, CMP ####[place] [id number] [facility] Globulin (S) [Mass/Vol] 3.5 g/dL Normal T [facility] Comment on above: Performed By: #### Jeremiah Gordillo PHOS, CMP ####[place] [id number] [facility] Glucose [Mass/Vol] 173 mg/dL High 70-100 [facility] Comment on above: Result Comment: [facility] Glucose Reference Range is dependent on time and content of last meal. Glucose of more than 200 mg/dL in a nonstressed, ambulatory subject supports the diagnosis of Diabetes Mellitus. ADA recommended reference range Performed By: #### M MAINOR Gordillo, CMP ####[place] [address] [place] [address] [facility] Potassium [Moles/Vol] 3.9 mmol/L Normal 3.5-5.1 [facility] Comment on above: Performed By: #### MAINOR Grace, CMP ####[address] [address] [facility] Protein [Mass/Vol] 6.8 g/dL Normal 6.4-8.9 [facility] Comment on above: Performed By: #### MAINOR Grace, CMP ####[address] [address] [facility] Sodium [Moles/Vol] 132 mmol/L Low 136-145 [facility] Comment on above: Performed By: #### MAINOR Grace, CMP ####[address] [address] [facility] Urea nitrogen [Mass/Vol] 20 mg/dL Normal 7-25 [facility] Comment on above: Performed By: #### MAINOR Grace, CMP ####[address] [address] [facility] ECG 12 lead ECGon 03-02-2025 ECG 12 lead ECG Normal [facility] Glucose Poct Glucometerson 0 03-02-2025 Commemt1 Glu2: Cleaned Meter Normal [facility] Comment on above: Result Comment: PERF ORMED BY:[address] [place], [place] [phone] MEDICAL DIRECTORKEMAL ACKERMAN M.D. Performed By: #### Rand LULS ####Point of Care testing, Glucose [Mass/Vol] 229 mg/dL Normal [facility] Comment on above: Result Comment: [facility] [place] Glucose Reference Range is dependent on time and content of last meal. Glucose of more than 200 mg/dL in a nonstressed, ambulatory subject supports the diagnosis of Diabetes Mellitus. Performed By: #### G LULS ####Point of Care testing, Glucose [Mass/Vol] 183 mg/dL Normal [facility] Comment on above: Result Comment: [facility] Glucose Reference Range is dependent on time and content of last meal. Glucose of more than 200 mg/dL in a nonstressed, ambulatory subject supports the diagnosis of Diabetes Mellitus.PERFORMED BY:[place] [address] [address], [place] [phone] MEDICAL DIRECTORKEMAL ACKERMAN M.D. Performed By: #### G LULS ####Point of Care testing, Commemt1 Glu2: Cleaned Meter Normal [facility] Comment on above: Result Comment: PERF ORMED BY:[address] [place], [place] [phone] MEDICAL DIRECTORKEMAL ACKERMAN M.D. Performed By: #### G LULS ####Point of Care testing, Glucose [Mass/Vol] 261 mg/dL Normal [facility] Comment on above: Result Comment: [facility] Glucose Reference Range is dependent on time and content of last meal. Glucose of more than 200 mg/dL in a nonstressed, ambulatory subject supports the diagnosis of Diabetes Mellitus. Performed By: #### G LULS ####Point of Care testing, Glucose [Mass/Vol] 191 mg/dL Normal [facility] Comment on above: Result Comment: [facility] Glucose Reference Range is dependent on time and content of last meal. Glucose of more than 200 mg/dL in a nonstressed, ambulatory subject supports the diagnosis of Diabetes Mellitus.PERFORMED BY:[address] [place], [place] [phone] MEDICAL DIRECTORKEMAL ACKERMAN M.D. Performed By: #### G LULS ####Point of Care testing, Magnesiumon 03-02-2025 Magnesium [Mass/Vol] 1.9 mg/dL Normal 1.9-2.7 [facility] Comment on above: Result Comment: PERF ORMED BY:[place] [address] [address] [place], [place] [phone] MEDICAL DIRECTORKEMAL ACKERMAN M.D. Performed By: #### M MAINOR Gordillo, CMP ####[address] [address] [place] Phosphoruson 03-02-2025 Phosphate [Mass/Vol] 2.9 mg/dL Normal 2.5-4.5 [facility] Comment on above: Performed By: #### M MAINOR Gordillo, CMP ####[address] [address] [facility] Blood Cultureon 03-01-2025 Bacteria identified Cx Nom (Bld) NO GROWTH 5 DAYS PERFORMED BY: [facility] [address] [place] [address] PATHOLOGIST [employer]AL [employer]ER KEMAL ACKERMAN M.D. Normal [facility] Comment on above: Performed By: #### C UBLD ####[address] [address] [facility] Bacteria identified Cx Nom (Bld) NO GROWTH 5 DAYS PERFORMED BY: [facility] [address] [place] [id number] PATHOLOGIST SE[employer] M[employer]ER KEMAL ACKERMAN M.D. Normal [facility] Comment on above: Performed By: #### C UBLD ####[address] [address] [facility] C reactive protein [Mass/vol ume] in Serum or PlasmaOrdered By: Liliana Soliz on 03-01-2025 CRP [Mass/Vol] C reactive protein [Mass/volume] in Serum or Plasma High 0.0-0.5 [facility] CRP [Mass/Vol] 16.9 mg/dL High 0.0-0.5 [facility] C-Reactive Proteinon 025 C-Reactive Protein 16.9 mg/dL High 0.0-0.5 [facility] Comment on above: Result Comment: PERF ORMED BY:[place] [address] [place], [place] [phone] MEDICAL DIRECTORKEMAL ACKERMAN M.D. Performed By: #### C RP, PHOS, DIFF CBC, MG, CMP ####[address] abdomen pelvis wo conon 0 03-01-2025 CT abdomen pelvis wo con Normal [facility] Comprehensive Metabolic Pane christiano 03-01-2025 Albumin [Mass/Vol] 3.2 g/dL Low 3.5-5.7 [facility] Comment on above: Performed By: #### C RP, PHOS, DIFF CBC, MG, CMP ####[address] Albumin/Globulin [Mass ratio] 0.9 {ratio} Normal [facility] Comment on above: Performed By: #### C RP, PHOS, DIFF CBC, MG, CMP ####[address] ALP [Catalytic activity/Vol] 61 U/L Normal 34-104 [facility] Comment on above: Performed By: #### C RP, PHOS, DIFF CBC, MG, CMP ####[address] ALT [Catalytic activity/Vol] U/L Low 7-52 [facility] Comment on above: Performed By: #### C RP, PHOS, DIFF CBC, MG, CMP ####[address] Anion gap [Moles/Vol] 15.8 mmol/L High 6.0-15.0 Th e [facility] Comment on above: Performed By: #### C RP, PHOS, DIFF CBC, MG, CMP ####[address] AST [Catalytic activity/Vol] 10 U/L Low 13-39 [facility] Comment on above: Performed By: #### C RP, PHOS, DIFF CBC, MG, CMP ####[address] Bilirubin [Mass/Vol] 0.3 mg/dL Normal 0.3-1.0 [facility] Comment on above: Performed By: #### C RP, PHOS, DIFF CBC, MG, CMP ####[address] Calcium [Mass/Vol] 9.2 mg/dL Normal 8.6-10.3 [facility] Comment on above: Performed By: #### C RP, PHOS, DIFF CBC, MG, CMP ####[address] Chloride [Moles/Vol] 95 mmol/L Low 98-107 [facility] Comment on above: Performed By: #### C RP, PHOS, DIFF CBC, MG, CMP ####[address] CO2 [Moles/Vol] 27.0 mmol/L Normal 21.0-31.0 [facility] Comment on above: Performed By: #### C RP, PHOS, DIFF CBC, MG, CMP ####[address] Creatinine [Mass/Vol] 5.11 mg/dL Significan t change up 0.60-1.20 [facility] Comment on above: Performed By: #### C RP, PHOS, DIFF CBC, MG, CMP ####[address] Creatinine Clr Calc Pharmacy 12.50 Normal [facility] Comment on above: Performed By: #### C RP, PHOS, DIFF CBC, MG, CMP ####[address] Estimated GFR 9.455 mL/Min Normal [facility] Comment on above: Performed By: #### C RP, PHOS, DIFF CBC, MG, CMP ####[address] Globulin (S) [Mass/Vol] 3.7 g/dL Normal T [facility] Comment on above: Performed By: #### C RP, PHOS, DIFF CBC, MG, CMP ####[address] Glucose [Mass/Vol] 140 mg/dL High 70-100 [facility] Comment on above: Result Comment: [facility] Glucose Reference Range is dependent on time and content of last meal. Glucose of more than 200 mg/dL in a nonstressed, ambulatory subject supports the diagnosis of Diabetes Mellitus. ADA recommended reference range Performed By: #### C RP, PHOS, DIFF CBC, MG, CMP ####[address] Potassium [Moles/Vol] 3.8 mmol/L Normal 3.5-5.1 [facility] Comment on above: Performed By: #### C RP, PHOS, DIFF CBC, MG, CMP ####[address] Protein [Mass/Vol] 6.9 g/dL Normal 6.4-8.9 [facility] Comment on above: Performed By: #### C RP, PHOS, DIFF CBC, MG, CMP ####[address] Sodium [Moles/Vol] 134 mmol/L Low 136-145 [facility] Comment on above: Performed By: #### C RP, PHOS, DIFF CBC, MG, CMP ####[address] Urea nitrogen [Mass/Vol] 34 mg/dL High 7-25 [facility] Comment on above: Performed By: #### C RP, PHOS, DIFF CBC, MG, CMP ####[address] Diff and CBCon 03-01-2025 Anisocytosis Ql (Bld) Slight Normal [facility] Comment on above: Performed By: #### C RP, PHOS, DIFF CBC, MG, CMP ####[place] [address] [place] Basophils/100 WBC (Bld) 2 % Normal 0-2 [facility] Comment on above: Performed By: #### C RP, PHOS, DIFF CBC, MG, CMP ####[address] Eosinophils/100 WBC (Bld) 1 % Normal 1-3 [facility] Comment on above: Performed By: #### C RP, PHOS, DIFF CBC, MG, CMP ####[address] Erythrocyte distribution width (RBC) [Ratio] 14.2 % Normal 11.9-15.3 [facility] Comment on above: Performed By: #### C RP, PHOS, DIFF CBC, MG, CMP ####[address] Hematocrit (Bld) [Volume fraction] 27.0 % Low 34.0-46.4 [facility] Comment on above: Performed By: #### C RP, PHOS, DIFF CBC, MG, CMP ####[address] Hemoglobin (Bld) [Mass/Vol] 8.6 g/dL Low 11.8-15.4 [facility] Comment on above: Performed By: #### C RP, PHOS, DIFF CBC, MG, CMP ####[address] Hypochromasia Slight Normal [facility] Comment on above: Performed By: #### C RP, PHOS, DIFF CBC, MG, CMP ####[address] Large Platelets Slight Normal [facility] Comment on above: Result Comment: PERF ORMED BY:[address] [place], [place] [phone] MEDICAL DIRECTORKEMAL ACKERMAN M.D. Performed By: #### C RP, PHOS, DIFF CBC, MG, CMP ####[address] Lymphocytes/100 WBC (Bld) 5 % Low 18-42 [facility] Comment on above: Performed By: #### C RP, PHOS, DIFF CBC, MG, CMP ####[address] MCH (RBC) [Entitic mass] 27.2 pg Normal 24.7-34.3 [facility] Comment on above: Performed By: #### C RP, PHOS, DIFF CBC, MG, CMP ####[address] MCV (RBC) [Entitic vol] 85.7 fL Normal 80-100 [facility] Comment on above: Performed By: #### C RP, PHOS, DIFF CBC, MG, CMP ####[address] Mean Corpuscular HGB Conc 31.8 g/dL Low 32.0-35.0 [facility] Comment on above: Performed By: #### C RP, PHOS, DIFF CBC, MG, CMP ####[address] Metamyelocytes 1 % High 0-0 [facility] Comment on above: Performed By: #### C RP, PHOS, DIFF CBC, MG, CMP ####[address] Monocytes/100 WBC (Bld) 7 % Normal 2-11 [facility] Comment on above: Performed By: #### C RP, PHOS, DIFF CBC, MG, CMP ####[address] Myelocytes 1 % High 0-0 [facility] Comment on above: Performed By: #### C RP, PHOS, DIFF CBC, MG, CMP ####[address] Platelet Estimate Normal Normal Normal [facility] Comment on above: Performed By: #### C RP, PHOS, DIFF CBC, MG, CMP ####[address] Platelet mean volume (Bld) [Entitic vol] 9.8 fL Normal 6.3-10.7 [facility] Comment on above: Performed By: #### C RP, PHOS, DIFF CBC, MG, CMP ####[address] Platelets (Bld) [#/Vol] 271 10*3/uL Normal 150-450 [facility] Comment on above: Performed By: #### C RP, PHOS, DIFF CBC, MG, CMP ####[address] Polychromasia Slight Normal [facility] Comment on above: Performed By: #### C RP, PHOS, DIFF CBC, MG, CMP ####[address] RBC (Bld) [#/Vol] 3.15 10*6/uL Low 3.60-5.00 [facility] Comment on above: Performed By: #### C RP, PHOS, DIFF CBC, MG, CMP ####[address] Segmented neutrophils/100 WBC (Bld) 83 % High 50-70 [facility] Comment on above: Performed By: #### C RP, PHOS, DIFF CBC, MG, CMP ####[address] WBC (Bld) [#/Vol] 19.3 10*3/uL High 3.8-11.6 [facility] Comment on above: Performed By: #### C RP, PHOS, DIFF CBC, MG, CMP ####[address] Glucose Poct Glucometerson 0 03-01-2025 Glucose [Mass/Vol] 172 mg/dL Normal [facility] Comment on above: Result Comment: [facility] Glucose Reference Range is dependent on time and content of last meal. Glucose of more than 200 mg/dL in a nonstressed, ambulatory subject supports the diagnosis of Diabetes Mellitus.PERFORMED BY:[place] [address] [place], [place] [phone] MEDICAL DIRECTORKEMAL ACKERMAN M.D. Performed By: #### G LULS ####Point of Care testing, Glucose [Mass/Vol] 162 mg/dL Normal [facility] Comment on above: Result Comment: [facility] Glucose Reference Range is dependent on time and content of last meal. Glucose of more than 200 mg/dL in a nonstressed, ambulatory subject supports the diagnosis of Diabetes Mellitus.PERFORMED BY:[address] [place], [place] [phone] MEDICAL DIRECTORKEMAL ACKERMAN M.D. Performed By: #### G LULS ####Point of Care testing, Commemt1 Glu2: Cleaned Meter Normal [facility] Comment on above: Result Comment: PERF ORMED BY:[place] [address] [place], [place] [phone] MEDICAL DIRECTORKEMAL ACKERMAN M.D. Performed By: #### G LULS ####Point of Care testing, Glucose [Mass/Vol] 165 mg/dL Normal [facility] Comment on above: Result Comment: [facility] Glucose Reference Range is dependent on time and content of last meal. Glucose of more than 200 mg/dL in a nonstressed, ambulatory subject supports the diagnosis of Diabetes Mellitus. Performed By: #### G LULS ####Point of Care testing, Result Comment: [facility] Glucose Reference Range is dependent on time and content of last meal. Glucose of more than 200 mg/dL in a nonstressed, ambulatory subject supports the diagnosis of Diabetes Mellitus.PERFORMED BY:[address] [place], [place] [phone] MEDICAL DIRECTORKEMAL ACKERMAN M.D. Laboratory - Microbiology an d Antimicrobial susceptibilityOrdered By: Becky Nash on 03-01-2025 Bacteria identified Cx Nom (Bld) NO GROWTH 5 DAYS [facility] Bacteria identified Cx Nom (Bld) NO GROWTH 5 DAYS [facility] Magnesiumon 03-01-2025 Magnesium [Mass/Vol] 1.8 mg/dL Low 1.9-2.7 [facility] Comment on above: Result Comment: PERF ORMED BY:[address] [address] [place], [place] [phone] MEDICAL JUANA ACKERMAN M.D. Performed By: #### C RP, PHOS, DIFF CBC, MG, CMP ####[facility] [address] [place] [address] [facility] Metamyelocytes/100 WBC Manua l cnt (Bld)Ordered By: Becky Nash on 03-01-2025 Metamyelocytes/100 WBC (Bld) Metamyelocytes/100 leukocytes in Blood by Manual count High 0-0 [facility] Metamyelocytes/100 WBC (Bld) 1 % High 00 [facility] Myelocytes/100 WBC Manual cn t (Bld)Ordered By: Becky Nash on 03-01-2025 Myelocytes/100 WBC (Bld) Myelocytes/100 leukocytes in Blood by Manual count High 00 [facility] Myelocytes/100 WBC (Bld) 1 % High 0-0 [facility] No Panel InformationOrdered By: Edwin Kaufman on 03-01-2025 Miscellaneous Pathology Test See comment [facility] Comment on above: See report. Scanned copy available in EMR. Pathology Request for Lab Co rpon 03-01-2025 Pathology Request for Lab Chantell Normal [facility] Comment on above: Order Comment: GI SP ECIMEN Result Comment: See report. Scanned copy available in EMR.PERFORMED BY:[address] [address] [place], [place] [phone] MEDICAL DIRECTORLANDRY LEE M.D. Performed By: #### P ATH TO [facility] ####[facility] [address] [place] [address] [facility] Phosphoruson 03-01-2025 Phosphate [Mass/Vol] 2.6 mg/dL Normal 2.5-4.5 [facility] Comment on above: Performed By: #### C RP, PHOS, DIFF CBC, MG, CMP ####[address] Comprehensive Metabolic Pane christiano 02-28-2025 Albumin [Mass/Vol] 3.4 g/dL Low 3.5-5.7 [facility] Comment on above: Performed By: #### M G, CMP, PHOS, SCAN CBC ####[address] Albumin/Globulin [Mass ratio] 0.9 {ratio} Normal [facility] Comment on above: Performed By: #### M G, CMP, PHOS, SCAN CBC ####[address] ALP [Catalytic activity/Vol] 58 U/L Normal 34-104 [facility] Comment on above: Performed By: #### M G, CMP, PHOS, SCAN CBC ####[address] ALT [Catalytic activity/Vol] U/L Low 7-52 [facility] Comment on above: Performed By: #### M G, CMP, PHOS, SCAN CBC ####[address] Anion gap [Moles/Vol] 14.3 mmol/L Normal 6.0-15.0 e [facility] Comment on above: Performed By: #### M G, CMP, PHOS, SCAN CBC ####[address] AST [Catalytic activity/Vol] 8 U/L Low 13-39 [facility] Comment on above: Performed By: #### M G, CMP, PHOS, SCAN CBC ####[address] Bilirubin [Mass/Vol] 0.3 mg/dL Normal 0.3-1.0 [facility] Comment on above: Performed By: #### M G, CMP, PHOS, SCAN CBC ####[place] [address] Calcium [Mass/Vol] 9.0 mg/dL Normal 8.6-10.3 [facility] Comment on above: Performed By: #### M G, CMP, PHOS, SCAN CBC ####[place] [address] Chloride [Moles/Vol] 95 mmol/L Low 98-107 [facility] Comment on above: Performed By: #### M G, CMP, PHOS, SCAN CBC ####[address] CO2 [Moles/Vol] 28.3 mmol/L Normal 21.0-31.0 [facility] Comment on above: Performed By: #### M G, CMP, PHOS, SCAN CBC ####[address] Creatinine [Mass/Vol] 4.43 mg/dL Significan t change up 0.60-1.20 [facility] Comment on above: Performed By: #### M G, CMP, PHOS, SCAN CBC ####[address] Creatinine Clr Calc Pharmacy 14.54 Normal [facility] Comment on above: Performed By: #### M G, CMP, PHOS, SCAN CBC ####[address] Estimated GFR 11.221 mL/Min Normal [facility] Comment on above: Performed By: #### M G, CMP, PHOS, SCAN CBC ####[place] [id number] [facility] Globulin (S) [Mass/Vol] 3.7 g/dL Normal T [facility] Comment on above: Performed By: #### M G, CMP, PHOS, SCAN CBC ####[place] [address] [place] [id number] [facility] Glucose [Mass/Vol] 171 mg/dL High 70-100 [facility] Comment on above: Result Comment: [facility] Glucose Reference Range is dependent on time and content of last meal. Glucose of more than 200 mg/dL in a nonstressed, ambulatory subject supports the diagnosis of Diabetes Mellitus. ADA recommended reference range Performed By: #### M G, CMP, PHOS, SCAN CBC ####[facility] [place] [address] [facility] Potassium [Moles/Vol] 3.6 mmol/L Normal 3.5-5.1 [facility] Comment on above: Performed By: #### M G, CMP, PHOS, SCAN CBC ####[address] [address] [facility] Protein [Mass/Vol] 7.1 g/dL Normal 6.4-8.9 [facility] Comment on above: Performed By: #### M G, CMP, PHOS, SCAN CBC ####[address] [address] [facility] Sodium [Moles/Vol] 134 mmol/L Low 136-145 [facility] Comment on above: Performed By: #### M G, CMP, PHOS, SCAN CBC ####[address] [address] [facility] Urea nitrogen [Mass/Vol] 27 mg/dL High 7-25 [facility] Comment on above: Performed By: #### M G, CMP, PHOS, SCAN CBC ####[address] [address] [facility] Glucose Poct Glucometerson 0 02-28-2025 Glucose [Mass/Vol] 194 mg/dL Normal [facility] Comment on above: Result Comment: [facility] [place] Glucose Reference Range is dependent on time and content of last meal. Glucose of more than 200 mg/dL in a nonstressed, ambulatory subject supports the diagnosis of Diabetes Mellitus.PERFORMED BY:[address] [place], [place] [phone] MEDICAL DIRECTORKEMAL ACKERMAN M.D. Performed By: #### G LULS ####Point of Care testing, Glucose [Mass/Vol] 251 mg/dL Normal [facility] Comment on above: Result Comment: [facility] [place] Glucose Reference Range is dependent on time and content of last meal. Glucose of more than 200 mg/dL in a nonstressed, ambulatory subject supports the diagnosis of Diabetes Mellitus.PERFORMED BY:[address] [place], [place] [phone] MEDICAL DIRECTORKEMAL ACKERMAN M.D. Performed By: #### G LULS ####Point of Care testing, Glucose [Mass/Vol] 168 mg/dL Normal [facility] Comment on above: Result Comment: [facility] [place] Glucose Reference Range is dependent on time and content of last meal. Glucose of more than 200 mg/dL in a nonstressed, ambulatory subject supports the diagnosis of Diabetes Mellitus.PERFORMED BY:[address] CABRERAJ[place]anaCassieAM[place], [place] [phone] MEDICAL DIRECTORKEMAL ACKERMAN M.D. Performed By: #### G LULS ####Point of Care testing, Magnesiumon 02-28-2025 Magnesium [Mass/Vol] 1.8 mg/dL Low 1.9-2.7 [facility] Comment on above: Result Comment: PERF ORMED BY:[address] [place], [place] [phone] MEDICAL DIRECTORKEMAL ACKERMAN M.D. Performed By: #### M G, CMP, PHOS, SCAN CBC ####[place] [id number] [facility] NM gastric emptying studyon 02-28-2025 NM gastric emptying study Normal [facility] Phosphoruson 02-28-2025 Phosphate [Mass/Vol] 2.3 mg/dL Low 2.5-4.5 [facility] Comment on above: Performed By: #### M G, CMP, PHOS, SCAN CBC ####[place] [id number] [facility] Prot Electrophor w/reflex IF Angel 02-28-2025 Albumin [Mass/Vol] 2.8 g/dL Low 2.9-4.4 [facility] Comment on above: Performed By: #### S PE W RFX GA, [id number]-GA ####[facility] , Albumin/Globulin [Mass ratio] 0.7 {ratio} Normal 0.7-1.7 [facility] Comment on above: Performed By: #### S PE W RFX GA, RFXSPE-GA ####[facility] , Digii-2-Kqtecxmf 0.5 g/dL High 0.0-0.4 [facility] Comment on above: Performed By: #### S PE W RFX GA, RFXSPE-GA ####[facility] , Bhmqy-4-Zyxccyad 1.4 g/dL High 0.4-1.0 [facility] Comment on above: Performed By: #### S PE W RFX GA, RFXSPE-GA ####[facility] , Beta Globulin 0.9 g/dL Normal 0.7-1.3 [facility] Comment on above: Performed By: #### S PE W RFX GA, RFXSPE-GA ####[facility] , Gamma Globulin 1.1 g/dL Normal 0.4-1.8 [facility] Comment on above: Performed By: #### S PE W RFX GA, RFXSPE-GA ####[facility] , Globulin (S) [Mass/Vol] 3.8 g/dL Normal 2.2-3.9 [facility] Comment on above: Performed By: #### S PE W RFX GA, RFXSPE-GA ####[facility] , Immunofixation Reflex . Normal . [facility] Comment on above: Performed By: #### S PE W RFX GA, RFXSPE-GA ####[facility] , Immunofixation Result Comment: Normal . [facility] Comment on above: Result Comment: Pres ence of monoclonal protein is unclear at this time. Suggest repeat in 3 to 6 months if clinically indicated. Performed at: - [facility], [place], [place] [id number] Etl Bi Developer: Louis Hansen PhD, Phone: [phone] Performed By: #### S PE W RFX GA, RFXSPE-GA ####[facility] , M-Cachorro Comment: Normal Not Observed [facility] Comment on above: Result Comment: SPE shows an asymmetrical gamma. Performed By: #### S PE W RFX GA, RFXSPE-GA ####[facility] , Protein [Mass/Vol] 6.6 g/dL Normal 6.0-8.5 [facility] Comment on above: Performed By: #### S PE W RFX GA, RFXSPE-GA ####[facility] , SPE-Note Comment Normal . [facility] Comment on above: Result Comment: Prot ein electrophoresis scan will follow via computer, mail, or automatic embroidery machine tender delivery. Performed By: #### S PE W RFX GA, RFXSPE-GA ####[facility] , Reflex to IFEon 02-28-2025 Immunoglobulin A, Serum 294 mg/dL Normal 87-352 [facility] Comment on above: Performed By: #### S PE W RFX GA, RFXSPE-GA ####[facility] , Immunoglobulin G 1058 mg/dL Normal 586-1602 [facility] Comment on above: Performed By: #### S PE W RFX GA, RFXSPE-GA ####[facility] , Immunoglobulin M, Serum 156 mg/dL Normal 26-217 [facility] Comment on above: Result Comment: PERF ORMED BY:[facility] [place], [place] [phone] MEDICAL DIRECTORKEMAL ACKERMAN M.D. Performed By: #### S PE W RFX GA, RFXSPE-GA ####[facility] , Scan and CBCon 02-28-2025 Anisocytosis Ql (Bld) Slight Normal [facility] Comment on above: Performed By: #### M G, CMP, PHOS, SCAN CBC ####[address] Basophils (Bld) [#/Vol] 0.1 10*3/uL Normal 0.0-0.2 [facility] Comment on above: Performed By: #### M G, CMP, PHOS, SCAN CBC ####[address] Basophils/100 WBC (Bld) 0.8 % Normal . [facility] Comment on above: Performed By: #### M G, CMP, PHOS, SCAN CBC ####[address] Eosinophils (Bld) [#/Vol] 0.6 10*3/uL High 0.0-0.45 [facility] Comment on above: Performed By: #### M G, CMP, PHOS, SCAN CBC ####[address] Eosinophils/100 WBC (Bld) 3.2 % Normal . [facility] Comment on above: Performed By: #### M G, CMP, PHOS, SCAN CBC ####[address] Erythrocyte distribution width (RBC) [Ratio] 14.3 % Normal 11.9-15.3 [facility] Comment on above: Performed By: #### M G, CMP, PHOS, SCAN CBC ####[address] Hematocrit (Bld) [Volume fraction] 27.3 % Low 34.0-46.4 [facility] Comment on above: Performed By: #### M G, CMP, PHOS, SCAN CBC ####[address] Hemoglobin (Bld) [Mass/Vol] 8.8 g/dL Low 11.8-15.4 [facility] Comment on above: Performed By: #### M G, CMP, PHOS, SCAN CBC ####[address] Hypochromasia Slight Normal [facility] Comment on above: Performed By: #### M G, CMP, PHOS, SCAN CBC ####[address] Lymphocytes (Bld) [#/Vol] 1.7 10*3/uL Normal 1.00-4.8 [facility] Comment on above: Performed By: #### M G, CMP, PHOS, SCAN CBC ####[address] Lymphocytes/100 WBC (Bld) 9.4 % Normal . [facility] Comment on above: Performed By: #### M G, CMP, PHOS, SCAN CBC ####[address] MCH (RBC) [Entitic mass] 27.9 pg Normal 24.7-34.3 [facility] Comment on above: Performed By: #### M G, CMP, PHOS, SCAN CBC ####[address] MCV (RBC) [Entitic vol] 86.6 fL Normal 80-100 [facility] Comment on above: Performed By: #### M G, CMP, PHOS, SCAN CBC ####[address] Mean Corpuscular HGB Conc 32.2 g/dL Normal 32.0-35.0 [facility] Comment on above: Performed By: #### M G, CMP, PHOS, SCAN CBC ####[address] Microcytosis Slight Normal [facility] Comment on above: Performed By: #### M G, CMP, PHOS, SCAN CBC ####[place] [address] Monocytes (Bld) [#/Vol] 1.7 10*3/uL High 0.0-0.8 [facility] Comment on above: Performed By: #### M G, CMP, PHOS, SCAN CBC ####[address] Monocytes/100 WBC (Bld) 9.6 % Normal . [facility] Comment on above: Performed By: #### M G, CMP, PHOS, SCAN CBC ####[address] Neutrophils (Bld) [#/Vol] 13.5 10*3/uL High 1.8-7.7 [facility] Comment on above: Performed By: #### M G, CMP, PHOS, SCAN CBC ####[address] Neutrophils/100 WBC (Bld) 77.0 % Normal . [facility] Comment on above: Performed By: #### M G, CMP, PHOS, SCAN CBC ####[address] NRBC% 0.1 /100{WBC} Normal 0-0.5 [facility] Comment on above: Performed By: #### M G, CMP, PHOS, SCAN CBC ####[address] Platelet Estimate Normal Normal Normal [facility] Comment on above: Performed By: #### M G, CMP, PHOS, SCAN CBC ####[place] [id number] [facility] Platelet mean volume (Bld) [Entitic vol] 9.4 fL Normal 6.3-10.7 [facility] Comment on above: Performed By: #### M G, CMP, PHOS, SCAN CBC ####[place] [id number] [facility] Platelet Morphology Normal Normal Normal [facility] Comment on above: Result Comment: PERF ORMED BY:[facility] [place], [place] [phone] MEDICAL DIRECTORKEMAL ACKERMAN M.D. Performed By: #### M G, CMP, PHOS, SCAN CBC ####[place] [address] [place] [id number] [facility] Platelets (Bld) [#/Vol] 281 10*3/uL Normal 150-450 [facility] Comment on above: Performed By: #### M G, CMP, PHOS, SCAN CBC ####[place] [address] [place] [id number] [facility] Polychromasia Slight Normal [facility] Comment on above: Performed By: #### M G, CMP, PHOS, SCAN CBC ####[place] [address] RBC (Bld) [#/Vol] 3.15 10*6/uL Low 3.60-5.00 [facility] Comment on above: Performed By: #### M G, CMP, PHOS, SCAN CBC ####[place] [id number] [facility] WBC (Bld) [#/Vol] 17.6 10*3/uL High 3.8-11.6 [facility] Comment on above: Performed By: #### M G, CMP, PHOS, SCAN CBC ####[address] Alanine aminotransferase [En zymatic activity/volume] in Serum or PlasmaOrdered By: Becky Nash on 02-27-2025 ALT [Catalytic activity/Vol] Alanine aminotransferase [Enzymatic activity/volume] in Serum or Plasma Low 7-52 [facility] Albumin [Mass/volume] in Ser um or Plasma by Bromocresol green (BCG) dye binding methoOrdered By: Becky Nash on 02-27-2025 Albumin BCG dye [Mass/Vol] Albumin [Mass/volume] in Serum or Plasma by Bromocresol green (BCG) dye binding metho Low 3.5-5.7 [facility] Alkaline phosphatase [Enzyma tic activity/volume] in Serum or PlasmaOrdered By: Becky Nash on 02-27-2025 ALP [Catalytic activity/Vol] Alkaline phosphatase [Enzymatic activity/volume] in Serum or Plasma 34-104 [facility] Aspartate aminotransferase [ Enzymatic activity/volume] in Serum or PlasmaOrdered By: Becky Nash on 02-27-2025 AST [Catalytic activity/Vol] Aspartate aminotransferase [Enzymatic activity/volume] in Serum or Plasma Low 13-39 [facility] Basophils Auto (Bld) [#/Vol] Ordered By: Becky Nash on 02-27-2025 Basophils (Bld) [#/Vol] Automated basophil count 0.0-0.2 [facility] Basophils/100 WBC Auto (Bld) Ordered By: Becky Nash on 02-27-2025 Basophils/100 WBC (Bld) Automated basophil % . [facility] Bilirubin.total [Mass/volume ] in Serum or PlasmaOrdered By: Becky Nash on 02-27-2025 Bilirubin [Mass/Vol] Bilirubin.total [Mass/volume] in Serum or Plasma Low 0.3-1.[address] [facility] [address] abdomen pelvis wo conon 0 02-27-2025 CT abdomen pelvis wo con Normal [facility] Calcium [Mass/volume] in Ser um or PlasmaOrdered By: Becky Nash on 02-27-2025 Calcium [Mass/Vol] Calcium [Mass/volume ] in Serum or Plasma Low 8.6-10.3 [facility] Carbon dioxide, total [Moles /volume] in Serum or PlasmaOrdered By: Becky Nash on 02-27-2025 CO2 [Moles/Vol] Carbon dioxide, tota l [Moles/volume] in Serum or Plasma 21.0-31.0 [facility] Chloride [Moles/volume] in S augustin or PlasmaOrdered By: Becky Nash on 02-27-2025 Chloride [Moles/Vol] Chloride [Moles/vol ume] in Serum or Plasma Low 98-107 [facility] Comprehensive Metabolic Pane christiano 02-27-2025 Albumin [Mass/Vol] 3.2 g/dL Low 3.5-5.7 [facility] Comment on above: Performed By: #### C MP, SCAN CBC, PHOS, MG ####[address] Albumin/Globulin [Mass ratio] 0.9 {ratio} Normal [facility] Comment on above: Performed By: #### C MP, SCAN CBC, PHOS, MG ####[address] ALP [Catalytic activity/Vol] 56 U/L Normal 34-104 [facility] Comment on above: Performed By: #### C MP, SCAN CBC, PHOS, MG ####[address] ALT [Catalytic activity/Vol] U/L Low 7-52 [facility] Comment on above: Performed By: #### C MP, SCAN CBC, PHOS, MG ####[address] Anion gap [Moles/Vol] 13.1 mmol/L Normal 6.0-15.0 [facility] Comment on above: Performed By: #### C MP, SCAN CBC, PHOS, MG ####[address] AST [Catalytic activity/Vol] 8 U/L Low 13-39 [facility] Comment on above: Performed By: #### C MP, SCAN CBC, PHOS, MG ####[address] Bilirubin [Mass/Vol] 0.2 mg/dL Low 0.3-1.0 [facility] Comment on above: Performed By: #### C MP, SCAN CBC, PHOS, MG ####[place] [id number] [facility] Calcium [Mass/Vol] 8.2 mg/dL Low 8.6-10.3 [facility] Comment on above: Performed By: #### C MP, SCAN CBC, PHOS, MG ####[place] [id number] [facility] Chloride [Moles/Vol] 97 mmol/L Low 98-107 [facility] Comment on above: Performed By: #### C MP, SCAN CBC, PHOS, MG ####[address] CO2 [Moles/Vol] 28.1 mmol/L Normal 21.0-31.0 [facility] Comment on above: Performed By: #### C MP, SCAN CBC, PHOS, MG ####[address] Creatinine [Mass/Vol] 5.16 mg/dL Significan t change up 0.60-1.20 [facility] Comment on above: Performed By: #### C MP, SCAN CBC, PHOS, MG ####[address] Creatinine Clr Calc Pharmacy 12.20 Normal [facility] Comment on above: Performed By: #### C MP, SCAN CBC, PHOS, MG ####[address] Estimated GFR 9.345 mL/Min Normal [facility] Comment on above: Performed By: #### C MP, SCAN CBC, PHOS, MG ####[address] Globulin (S) [Mass/Vol] 3.4 g/dL Normal [facility] Comment on above: Performed By: #### C MP, SCAN CBC, PHOS, MG ####[address] Glucose [Mass/Vol] 189 mg/dL High 70-100 [facility] Comment on above: Result Comment: [facility] Glucose Reference Range is dependent on time and content of last meal. Glucose of more than 200 mg/dL in a nonstressed, ambulatory subject supports the diagnosis of Diabetes Mellitus. ADA recommended reference range Performed By: #### C MP, SCAN CBC, PHOS, MG ####[address] Potassium [Moles/Vol] 3.2 mmol/L Low 3.5-5.1 [facility] Comment on above: Performed By: #### C MP, SCAN CBC, PHOS, MG ####[place] [address] Protein [Mass/Vol] 6.6 g/dL Normal 6.4-8.9 [facility] Comment on above: Performed By: #### C MP, SCAN CBC, PHOS, MG ####[place] [address] Sodium [Moles/Vol] 135 mmol/L Low 136-145 [facility] Comment on above: Performed By: #### C MP, SCAN CBC, PHOS, MG ####[place] [address] Urea nitrogen [Mass/Vol] 38 mg/dL High 7-25 [facility] Comment on above: Performed By: #### C MP, SCAN CBC, PHOS, MG ####[address] Creatinine [Mass/volume] in Serum or PlasmaOrdered By: Becky Nash on 02-27-2025 Creatinine [Mass/Vol] Creatinine [Mass/v olume] in Serum or Plasma Invalid Interpretation Code 0.60-1.20 [facility] Comment on above: Delta: 4.38 on 02/26-621 Eosinophils Auto (Bld) [#/Vo l]Ordered By: Becky Nash on 02-27-2025 Eosinophils (Bld) [#/Vol] Automated eosinophil count High 0.0-0.45 [facility] Eosinophils/100 WBC Auto (Bl d)Ordered By: Becky Nash on 02-27-2025 Eosinophils/100 WBC (Bld) Automated eosinophil % . [facility] Erythrocyte distribution wid th Auto (RBC) [Ratio]Ordered By: Becky Nash on 02-27-2025 Erythrocyte distribution width (RBC) [Ratio] Erythrocyte distribution width [Ratio] by Automated count 11.9-15.3 [facility] Erythrocyte morphology findi ng [Identifier] in BloodOrdered By: Becky Nash on 02-27-2025 RBC morphology finding Nom (Bld) RBC morphology Normal [facility] Globulin Calc (S) [Mass/Vol] Ordered By: Becky Nash on 02-27-2025 Globulin (S) [Mass/Vol] Serum globulin measurement by calculation (mass/volume) [facility] Glucose Glucometer (BldC) [M ass/Vol]Ordered By: Becky Nash on 02-27-2025 Glucose [Mass/Vol] Capillary blood gluc ose measurement by glucometer (mass/volume) [facility] Comment on above: Random Glucose Refer ence Range is dependent on time and content of last meal. Glucose of more than 200 mg/dL in a nonstressed, ambulatory subject supports the diagnosis of Diabetes Mellitus. Glucose Poct Glucometerson 0 02-27-2025 Glucose [Mass/Vol] 192 mg/dL Normal [facility] Comment on above: Result Comment: [facility] [place] Glucose Reference Range is dependent on time and content of last meal. Glucose of more than 200 mg/dL in a nonstressed, ambulatory subject supports the diagnosis of Diabetes Mellitus.PERFORMED BY:[place] [address] [place] [place], [place] [phone] MEDICAL DIRECTORKEMAL ACKERMAN M.D. Performed By: #### G LULS ####Point of Care testing, Glucose [Mass/Vol] 254 mg/dL Normal [facility] Comment on above: Result Comment: [facility] [place] Glucose Reference Range is dependent on time and content of last meal. Glucose of more than 200 mg/dL in a nonstressed, ambulatory subject supports the diagnosis of Diabetes Mellitus.PERFORMED BY:[place] [address] [address] [place], [place] [phone] MEDICAL DIRECTORKEMAL ACKERMAN M.D. Performed By: #### G LULS ####Point of Care testing, Glucose [Mass/Vol] 182 mg/dL Normal [facility] Comment on above: Result Comment: [facility] Glucose Reference Range is dependent on time and content of last meal. Glucose of more than 200 mg/dL in a nonstressed, ambulatory subject supports the diagnosis of Diabetes Mellitus.PERFORMED BY:[facility] [place], [place] [phone] MEDICAL DIRECTORKEMAL ACKERMAN M.D. Performed By: #### G LULS ####Point of Care testing, Glucose [Mass/Vol] 182 mg/dL Normal [facility] Comment on above: Result Comment: [facility] Glucose Reference Range is dependent on time and content of last meal. Glucose of more than 200 mg/dL in a nonstressed, ambulatory subject supports the diagnosis of Diabetes Mellitus.PERFORMED BY:[facility] [place], [place] [phone] MEDICAL DIRECTORKEMAL ACKERMAN M.D. Performed By: #### G LULS ####Point of Care testing, Glucose [Mass/volume] in Ser um or PlasmaOrdered By: Becky Nash on 02-27-2025 Glucose [Mass/Vol] Glucose [Mass/volume ] in Serum or Plasma High 70-100 [facility] Comment on above: ADA recommended refe rence rangeRandom Glucose Reference Range is dependent on time and content of last meal. Glucose of more than 200 mg/dL in a nonstressed, ambulatory subject supports the diagnosis of Diabetes Mellitus. Hematocrit Auto (Bld) [Volum e fraction]Ordered By: Becky Nash on 02-27-2025 Hematocrit (Bld) [Volume fraction] Hematocrit [Volume Fraction] of Blood by Automated count Low 34.0-46.4 [facility] Hemoglobin [Mass/volume] in BloodOrdered By: Becky Nash on 02-27-2025 Hemoglobin (Bld) [Mass/Vol] Hemoglobin [Mass/volume] in Blood Low 11.8-15.4 [facility] Leukocytes [#/volume] correc alyssa for nucleated erythrocytes in Blood by Automated counOrdered By: Becky Nash on 02-27-2025 WBC corrected for nucl RBC Auto (Bld) [#/Vol] Leukocytes [#/volume] corrected for nucleated erythrocytes in Blood by Automated coun High 3.8-11.6 [facility] Lymphocytes Auto (Bld) [#/Vo l]Ordered By: Becky Nash on 02-27-2025 Lymphocytes (Bld) [#/Vol] Lymphocytes [#/volume] in Blood by Automated count 1.00-4.8 [facility] Lymphocytes/100 WBC Auto (Bl d)Ordered By: Becky Nash on 02-27-2025 Lymphocytes/100 WBC (Bld) Lymphocytes/100 leukocytes in Blood by Automated count . [facility] MCH Auto (RBC) [Entitic mass ]Ordered By: Becky Nash on 02-27-2025 MCH (RBC) [Entitic mass] MCH [Entitic mass] by Automated count 24.7-34.3 [facility] MCHC Auto (RBC) [Mass/Vol]Or dered By: Becky Nash on 02-27-2025 MCHC (RBC) [Mass/Vol] MCHC [Mass/volume] by Automated count 32.0-35.0 [facility] MCV Auto (RBC) [Entitic vol] Ordered By: Becky Nash on 02-27-2025 MCV (RBC) [Entitic vol] MCV [Entitic vol ume] by Automated count 80-100 [facility] Magnesiumon 02-27-2025 Magnesium [Mass/Vol] 1.8 mg/dL Low 1.9-2.7 [facility] Comment on above: Result Comment: PERF ORMED BY:[address] [place], [place] [phone] MEDICAL DIRECTORKEMAL ACKERMAN M.D. Performed By: #### C MP, SCAN CBC, PHOS, MG ####[facility] [place] [address] [facility] Magnesium [Mass/volume] in S augustin or PlasmaOrdered By: Becky Nash on 02-27-2025 Magnesium [Mass/Vol] Magnesium [Mass/vol ume] in Serum or Plasma Low 1.9-2.7 [facility] Monocytes Auto (Bld) [#/Vol] Ordered By: Becky Nash on 02-27-2025 Monocytes (Bld) [#/Vol] Automated blood monocyte count High 0.0-0.8 [facility] Monocytes/100 WBC Auto (Bld) Ordered By: Becky Nash on 02-27-2025 Monocytes/100 WBC (Bld) Automated monocyte % . [facility] Neutrophils Auto (Bld) [#/Vo l]Ordered By: Becky Nash on 02-27-2025 Neutrophils (Bld) [#/Vol] Neutrophils [#/volume] in Blood by Automated count High 1.8-7.7 [facility] Neutrophils/100 WBC Auto (Bl d)Ordered By: Becky Nash on 02-27-2025 Neutrophils/100 WBC (Bld) Automated neutrophil % . [facility] No Panel InformationOrdered By: Becky Nash on 02-27-2025 Estimated GFR (CKD-EPI) 9.345 mL/Min [facility] Creatinine Clearance (Chem 12.20 [facility] Nucleated erythrocytes [Pres ence] in Blood by Automated countOrdered By: Becky Nash on 02-27-2025 Nucleated RBC Auto Ql (Bld) Nucleated erythrocytes [Presence] in Blood by Automated count 0-0.5 [facility] Phosphate [Mass/volume] in S augustin or PlasmaOrdered By: Becky Nash on 02-27-2025 Phosphate [Mass/Vol] Phosphate [Mass/vol ume] in Serum or Plasma 2.5-4.5 [facility] Phosphoruson 02-27-2025 Phosphate [Mass/Vol] 3.6 mg/dL Normal 2.5-4.5 [facility] Comment on above: Performed By: #### C MP, SCAN CBC, PHOS, MG ####[facility] [id number] [place] [id number] [facility] Platelet adequacy [Presence] in Blood by Light microscopyOrdered By: Becky Nash on 02-27-2025 Platelets LM Ql (Bld) Platelet adequacy [Presence] in Blood by Light microscopy Normal [facility] Platelet mean volume Auto (B ld) [Entitic vol]Ordered By: Becky Nash on 02-27-2025 Platelet mean volume (Bld) [Entitic vol] Platelet mean volume [Entitic volume] in Blood by Automated count 6.3-10.7 [facility] Platelet morphology finding [Identifier] in BloodOrdered By: Becky Nash on 02-27-2025 Platelet morphology finding Nom (Bld) Platelet morphology finding [Identifier] in Blood Normal [facility] Platelets Auto (Bld) [#/Vol] Ordered By: Becky Nash on 02-27-2025 Platelets (Bld) [#/Vol] Platelets [#/vol ume] in Blood by Automated count 150-450 [facility] Potassium [Moles/volume] in Serum or PlasmaOrdered By: Becky Nash on 02-27-2025 Potassium [Moles/Vol] Potassium [Moles/v olume] in Serum or Plasma Low 3.5-5.1 [facility] Protein [Mass/volume] in Ser um or PlasmaOrdered By: Becky Nash on 02-27-2025 Protein [Mass/Vol] Protein [Mass/volume ] in Serum or Plasma 6.4-8.9 [facility] RBC Auto (Bld) [#/Vol]Ordere d By: Becky Nash on 02-27-2025 RBC (Bld) [#/Vol] Erythrocytes [#/volu me] in Blood by Automated count Low 3.60-5.00 [facility] Scan and CBCon 02-27-2025 Basophils (Bld) [#/Vol] 0.2 10*3/uL Normal 0.0-0.2 [facility] Comment on above: Performed By: #### C MP, SCAN CBC, PHOS, MG ####[place] [address] Basophils/100 WBC (Bld) 1.4 % Normal . [facility] Comment on above: Performed By: #### C MP, SCAN CBC, PHOS, MG ####[facility] [place] [id number] [place] Eosinophils (Bld) [#/Vol] 0.6 10*3/uL High 0.0-0.45 [facility] Comment on above: Performed By: #### C MP, SCAN CBC, PHOS, MG ####[place] [address] [place] [address] [place] Eosinophils/100 WBC (Bld) 3.9 % Normal . [facility] Comment on above: Performed By: #### C MP, SCAN CBC, PHOS, MG ####[address] Erythrocyte distribution width (RBC) [Ratio] 14.4 % Normal 11.9-15.3 [facility] Comment on above: Performed By: #### C MP, SCAN CBC, PHOS, MG ####[address] Hematocrit (Bld) [Volume fraction] 27.4 % Low 34.0-46.4 [facility] Comment on above: Performed By: #### C MP, SCAN CBC, PHOS, MG ####[address] Hemoglobin (Bld) [Mass/Vol] 8.9 g/dL Low 11.8-15.4 [facility] Comment on above: Performed By: #### C MP, SCAN CBC, PHOS, MG ####[address] Lymphocytes (Bld) [#/Vol] 1.5 10*3/uL Normal 1.00-4.8 [facility] Comment on above: Performed By: #### C MP, SCAN CBC, PHOS, MG ####[address] Lymphocytes/100 WBC (Bld) 9.9 % Normal . [facility] Comment on above: Performed By: #### C MP, SCAN CBC, PHOS, MG ####[address] MCH (RBC) [Entitic mass] 27.6 pg Normal 24.7-34.3 [facility] Comment on above: Performed By: #### C MP, SCAN CBC, PHOS, MG ####[address] MCV (RBC) [Entitic vol] 85.4 fL Normal 80-100 [facility] Comment on above: Performed By: #### C MP, SCAN CBC, PHOS, MG ####[address] Mean Corpuscular HGB Conc 32.3 g/dL Normal 32.0-35.0 [facility] Comment on above: Performed By: #### C MP, SCAN CBC, PHOS, MG ####[address] Monocytes (Bld) [#/Vol] 1.6 10*3/uL High 0.0-0.8 [facility] Comment on above: Performed By: #### C MP, SCAN CBC, PHOS, MG ####[address] Monocytes/100 WBC (Bld) 10.8 % Normal . T valery [facility] Comment on above: Performed By: #### C MP, SCAN CBC, PHOS, MG ####[address] Neutrophils (Bld) [#/Vol] 11.2 10*3/uL High 1.8-7.7 [facility] Comment on above: Performed By: #### C MP, SCAN CBC, PHOS, MG ####[address] Neutrophils/100 WBC (Bld) 74.0 % Normal . [facility] Comment on above: Performed By: #### C MP, SCAN CBC, PHOS, MG ####[address] NRBC% 0.0 /100{WBC} Normal 0-0.5 [facility] Comment on above: Performed By: #### C MP, SCAN CBC, PHOS, MG ####[address] Platelet Estimate Normal Normal Normal [facility] Comment on above: Performed By: #### C MP, SCAN CBC, PHOS, MG ####[address] Platelet mean volume (Bld) [Entitic vol] 9.6 fL Normal 6.3-10.7 [facility] Comment on above: Performed By: #### C MP, SCAN CBC, PHOS, MG ####[address] Platelet Morphology Normal Normal Normal [facility] Comment on above: Result Comment: PERF ORMED BY:[address] [place], [place] [phone] MEDICAL DIRECTORKEMAL ACKERMAN M.D. Performed By: #### C MP, SCAN CBC, PHOS, MG ####[address] Platelets (Bld) [#/Vol] 285 10*3/uL Normal 150-450 [facility] Comment on above: Performed By: #### C MP, SCAN CBC, PHOS, MG ####[address] RBC (Bld) [#/Vol] 3.21 10*6/uL Low 3.60-5.00 [facility] Comment on above: Performed By: #### C MP, SCAN CBC, PHOS, MG ####[address] RBC morphology finding Nom (Bld) Normal Normal Normal [facility] Comment on above: Performed By: #### C MP, SCAN CBC, PHOS, MG ####[address] WBC (Bld) [#/Vol] 15.1 10*3/uL High 3.8-11.6 [facility] Comment on above: Performed By: #### C MP, SCAN CBC, PHOS, MG ####[address] Serum or plasma albumin/glob ulin mass ratioOrdered By: Becky Nash on 02-27-2025 Albumin/Globulin [Mass ratio] Serum or plasma albumin/globulin mass ratio [facility] Serum or plasma anion gap de terminationOrdered By: Becky Nash on 02-27-2025 Anion gap [Moles/Vol] Serum or plasma an ion gap determination 6.0-15.0 [facility] Sodium [Moles/volume] in Ser um or PlasmaOrdered By: Becky Nash on 02-27-2025 Sodium [Moles/Vol] Sodium [Moles/volume ] in Serum or Plasma Low 136-145 [facility] Urea nitrogen [Mass/volume] in Serum or PlasmaOrdered By: Becky Nash on 02-27-2025 Urea nitrogen [Mass/Vol] Urea nitrogen [Mass/volume] in Serum or Plasma High 7-25 [facility] WBC Auto (Bld) [#/Vol]Ordere d By: Becky Nash on 02-27-2025 WBC (Bld) [#/Vol] Leukocytes [#/volume ] in Blood by Automated count High 3.8-11.6 [facility] Complete Blood Count Auto Di ffon 02-26-2025 Basophils (Bld) [#/Vol] 0.1 10*3/uL Normal 0.0-0.2 [facility] Comment on above: Result Comment: PERF ORMED BY:[place] [address] [place] [phone] MEDICAL DIRECTORKEMAL ACKERMAN M.D. Performed By: #### M G, CBC, CMP ####[place] [address] [place] [id number] [facility] Basophils/100 WBC (Bld) 1.0 % Normal . T valery [facility] Comment on above: Performed By: #### M G, CBC, CMP ####[facility] [place] [address] [place] Eosinophils (Bld) [#/Vol] 0.3 10*3/uL Normal 0.0-0.45 [facility] Comment on above: Performed By: #### M G, CBC, CMP ####[address] [address] [place] Eosinophils/100 WBC (Bld) 1.9 % Normal . [facility] Comment on above: Performed By: #### M G, CBC, CMP ####[address] Erythrocyte distribution width (RBC) [Ratio] 14.5 % Normal 11.9-15.3 [facility] Comment on above: Performed By: #### M G, CBC, CMP ####[address] Hematocrit (Bld) [Volume fraction] 27.4 % Low 34.0-46.4 [facility] Comment on above: Performed By: #### M G, CBC, CMP ####[address] Hemoglobin (Bld) [Mass/Vol] 9.0 g/dL Low 11.8-15.4 [facility] Comment on above: Performed By: #### M G, CBC, CMP ####[address] Lymphocytes (Bld) [#/Vol] 1.1 10*3/uL Normal 1.00-4.8 [facility] Comment on above: Performed By: #### M G, CBC, CMP ####[address] Lymphocytes/100 WBC (Bld) 7.8 % Normal . [facility] Comment on above: Performed By: #### M G, CBC, CMP ####[address] MCH (RBC) [Entitic mass] 27.6 pg Normal 24.7-34.3 [facility] Comment on above: Performed By: #### M G, CBC, CMP ####[address] MCV (RBC) [Entitic vol] 84.1 fL Normal 80-100 [facility] Comment on above: Performed By: #### M G, CBC, CMP ####[address] Mean Corpuscular HGB Conc 32.8 g/dL Normal 32.0-35.0 [facility] Comment on above: Performed By: #### M G, CBC, CMP ####[address] Monocytes (Bld) [#/Vol] 1.4 10*3/uL High 0.0-0.8 [facility] Comment on above: Performed By: #### M G, CBC, CMP ####[address] Monocytes/100 WBC (Bld) 10.3 % Normal . T valery [facility] Comment on above: Performed By: #### M G, CBC, CMP ####[address] Neutrophils (Bld) [#/Vol] 10.8 10*3/uL High 1.8-7.7 [facility] Comment on above: Performed By: #### Jeremiah Gordillo, CBC, CMP ####[address] Neutrophils/100 WBC (Bld) 79.0 % Normal . [facility] Comment on above: Performed By: #### Jeremiah Gordillo, CBC, CMP ####[address] NRBC% 0.1 /100{WBC} Normal 0-0.5 [facility] Comment on above: Performed By: #### M G, CBC, CMP ####[address] Platelet mean volume (Bld) [Entitic vol] 9.0 fL Normal 6.3-10.7 [facility] Comment on above: Performed By: #### M G, CBC, CMP ####[address] Platelets (Bld) [#/Vol] 317 10*3/uL Normal 150-450 [facility] Comment on above: Performed By: #### M G, CBC, CMP ####[address] RBC (Bld) [#/Vol] 3.26 10*6/uL Low 3.60-5.00 [facility] Comment on above: Performed By: #### Jeremiah Gordillo, CBC, CMP ####[address] WBC (Bld) [#/Vol] 13.6 10*3/uL High 3.8-11.6 [facility] Comment on above: Performed By: #### Jeremiah Gordillo, CBC, CMP ####[address] Comprehensive Metabolic Pane christiano 02-26-2025 Albumin [Mass/Vol] 3.2 g/dL Low 3.5-5.7 [facility] Comment on above: Performed By: #### Jeremiah Gordillo, CBC, CMP ####[address] Albumin/Globulin [Mass ratio] 0.8 {ratio} Normal [facility] Comment on above: Performed By: #### Jeremiah Gordillo, CBC, CMP ####[address] ALP [Catalytic activity/Vol] 61 U/L Normal 34-104 [facility] Comment on above: Performed By: #### Jeremiah Gordillo, CBC, CMP ####[address] ALT [Catalytic activity/Vol] U/L Low 7-52 [facility] Comment on above: Performed By: #### Jeremiah Gordillo, CBC, CMP ####[place] [id number] [facility] Anion gap [Moles/Vol] 15.9 mmol/L High 6.0-15.0 [facility] Comment on above: Performed By: #### Jeremiah G, CBC, CMP ####[address] AST [Catalytic activity/Vol] 10 U/L Low 13-39 [facility] Comment on above: Performed By: #### M G, CBC, CMP ####[address] Bilirubin [Mass/Vol] 0.3 mg/dL Normal 0.3-1.0 [facility] Comment on above: Performed By: #### M G, CBC, CMP ####[address] Calcium [Mass/Vol] 8.2 mg/dL Low 8.6-10.3 [facility] Comment on above: Performed By: #### M G, CBC, CMP ####[address] Chloride [Moles/Vol] 96 mmol/L Low 98-107 [facility] Comment on above: Performed By: #### M G, CBC, CMP ####[address] CO2 [Moles/Vol] 26.6 mmol/L Normal 21.0-31.0 [facility] Comment on above: Performed By: #### M G, CBC, CMP ####[address] Creatinine [Mass/Vol] 4.38 mg/dL Significan t change up 0.60-1.20 [facility] Comment on above: Performed By: #### M G, CBC, CMP ####[address] Creatinine Clr Calc Pharmacy 14.16 Normal [facility] Comment on above: Performed By: #### M G, CBC, CMP ####[address] Estimated GFR 11.375 mL/Min Normal [facility] Comment on above: Performed By: #### M G, CBC, CMP ####[address] Globulin (S) [Mass/Vol] 3.8 g/dL Normal [facility] Comment on above: Performed By: #### M G, CBC, CMP ####[place] [id number] [facility] Glucose [Mass/Vol] 151 mg/dL High 70-100 [facility] Comment on above: Result Comment: [facility] [place] Glucose Reference Range is dependent on time and content of last meal. Glucose of more than 200 mg/dL in a nonstressed, ambulatory subject supports the diagnosis of Diabetes Mellitus. ADA recommended reference range Performed By: #### M G, CBC, CMP ####[place] [id number] [facility] Potassium [Moles/Vol] 3.5 mmol/L Normal 3.5-5.1 [facility] Comment on above: Performed By: #### M G, CBC, CMP ####[place] [id number] [facility] Protein [Mass/Vol] 7.0 g/dL Normal 6.4-8.9 [facility] Comment on above: Performed By: #### M G, CBC, CMP ####[place] [id number] [facility] Sodium [Moles/Vol] 135 mmol/L Low 136-145 [facility] Comment on above: Performed By: #### M G, CBC, CMP ####[place] [address] [facility] Urea nitrogen [Mass/Vol] 29 mg/dL High 7-25 [facility] Comment on above: Performed By: #### M G, CBC, CMP ####[place] [id number] [facility] Glucose Poct Glucometerson 0 02-26-2025 Glucose [Mass/Vol] 219 mg/dL Normal [facility] Comment on above: Result Comment: [facility] [place] Glucose Reference Range is dependent on time and content of last meal. Glucose of more than 200 mg/dL in a nonstressed, ambulatory subject supports the diagnosis of Diabetes Mellitus.PERFORMED BY:[address] [place], [place] [phone] MEDICAL DIRECTORKEMAL ACKERMAN M.D. Performed By: #### G LULS ####Point of Care testing, Glucose [Mass/Vol] 213 mg/dL Normal [facility] Comment on above: Result Comment: [facility] [place] Glucose Reference Range is dependent on time and content of last meal. Glucose of more than 200 mg/dL in a nonstressed, ambulatory subject supports the diagnosis of Diabetes Mellitus.PERFORMED BY:[address] [place], [place] [phone] MEDICAL DIRECTORKEMAL ACKERMAN M.D. Performed By: #### G LULS ####Point of Care testing, Glucose [Mass/Vol] 179 mg/dL Normal [facility] Comment on above: Result Comment: [facility] [place] Glucose Reference Range is dependent on time and content of last meal. Glucose of more than 200 mg/dL in a nonstressed, ambulatory subject supports the diagnosis of Diabetes Mellitus.PERFORMED BY:[address] [place], [place] [phone] MEDICAL DIRECTORKEMAL ACKERMAN M.D. Performed By: #### G LULS ####Point of Care testing, Glucose [Mass/Vol] 159 mg/dL Normal [facility] Comment on above: Result Comment: [facility] [place] Glucose Reference Range is dependent on time and content of last meal. Glucose of more than 200 mg/dL in a nonstressed, ambulatory subject supports the diagnosis of Diabetes Mellitus.PERFORMED BY:[address] [place], [place] [phone] MEDICAL DIRECTORKEMAL ACKERMAN M.D. Performed By: #### G LULS ####Point of Care testing, Magnesiumon 02-26-2025 Magnesium [Mass/Vol] 1.8 mg/dL Low 1.9-2.7 [facility] Comment on above: Result Comment: PERF ORMED BY:[address] [place], [place] [phone] MEDICAL JUANA ACKERMAN M.D. Performed By: #### M G, CBC, CMP ####[address] Complete Blood Count Auto Di ffon 02-25-2025 Basophils (Bld) [#/Vol] 0.2 10*3/uL Normal 0.0-0.2 [facility] Comment on above: Result Comment: PERF ORMED BY:[place] [address] [address] [place], [place] [phone] MEDICAL DIRECTORKEMAL ACKERMAN M.D. Performed By: #### C MP, PHOS, MG, CBC ####[address] Basophils/100 WBC (Bld) 1.2 % Normal . T valery [facility] Comment on above: Performed By: #### C MP, PHOS, MG, CBC ####[address] Eosinophils (Bld) [#/Vol] 0.4 10*3/uL Normal 0.0-0.45 [facility] Comment on above: Performed By: #### C MP, PHOS, MG, CBC ####[address] Eosinophils/100 WBC (Bld) 2.9 % Normal . [facility] Comment on above: Performed By: #### C MP, PHOS, MG, CBC ####[address] Erythrocyte distribution width (RBC) [Ratio] 14.6 % Normal 11.9-15.3 [facility] Comment on above: Performed By: #### C MP, PHOS, MG, CBC ####[address] Hematocrit (Bld) [Volume fraction] 26.7 % Low 34.0-46.4 [facility] Comment on above: Performed By: #### C MP, PHOS, MG, CBC ####[address] Hemoglobin (Bld) [Mass/Vol] 8.9 g/dL Low 11.8-15.4 [facility] Comment on above: Performed By: #### C MP, PHOS, MG, CBC ####[address] Lymphocytes (Bld) [#/Vol] 1.0 10*3/uL Normal 1.00-4.8 [facility] Comment on above: Performed By: #### C MP, PHOS, MG, CBC ####[address] Lymphocytes/100 WBC (Bld) 6.8 % Normal . [facility] Comment on above: Performed By: #### C MP, PHOS, MG, CBC ####[address] MCH (RBC) [Entitic mass] 28.0 pg Normal 24.7-34.3 [facility] Comment on above: Performed By: #### C MP, PHOS, MG, CBC ####[address] MCV (RBC) [Entitic vol] 84.1 fL Normal 80-100 [facility] Comment on above: Performed By: #### C MP, PHOS, MG, CBC ####[address] Mean Corpuscular HGB Conc 33.3 g/dL Normal 32.0-35.0 [facility] Comment on above: Performed By: #### C MP, PHOS, MG, CBC ####[address] Monocytes (Bld) [#/Vol] 1.0 10*3/uL High 0.0-0.8 [facility] Comment on above: Performed By: #### C MP, PHOS, MG, CBC ####[address] Monocytes/100 WBC (Bld) 7.2 % Normal . [facility] Comment on above: Performed By: #### C MP, PHOS, MG, CBC ####[address] Neutrophils (Bld) [#/Vol] 11.4 10*3/uL High 1.8-7.7 [facility] Comment on above: Performed By: #### C MP, PHOS, MG, CBC ####[address] Neutrophils/100 WBC (Bld) 81.9 % Normal . [facility] Comment on above: Performed By: #### C MP, PHOS, MG, CBC ####[address] NRBC% 0.1 /100{WBC} Normal 0-0.5 [facility] Comment on above: Performed By: #### C MP, PHOS, MG, CBC ####[address] Platelet mean volume (Bld) [Entitic vol] 9.0 fL Normal 6.3-10.7 [facility] Comment on above: Performed By: #### C MP, PHOS, MG, CBC ####[address] Platelets (Bld) [#/Vol] 349 10*3/uL Normal 150-450 [facility] Comment on above: Performed By: #### C MP, PHOS, MG, CBC ####[address] RBC (Bld) [#/Vol] 3.18 10*6/uL Low 3.60-5.00 [facility] Comment on above: Performed By: #### C MP, PHOS, MG, CBC ####[address] WBC (Bld) [#/Vol] 14.0 10*3/uL High 3.8-11.6 [facility] Comment on above: Performed By: #### C MP, PHOS, MG, CBC ####[address] [address] [facility] Comprehensive Metabolic Pane christiano 02-25-2025 Albumin [Mass/Vol] 3.4 g/dL Low 3.5-5.7 [facility] Comment on above: Performed By: #### C MP, PHOS, MG, CBC ####[address] Albumin/Globulin [Mass ratio] 0.9 {ratio} Normal [facility] Comment on above: Performed By: #### C MP, PHOS, MG, CBC ####[address] ALP [Catalytic activity/Vol] 64 U/L Normal 34-104 [facility] Comment on above: Performed By: #### C MP, PHOS, MG, CBC ####[address] ALT [Catalytic activity/Vol] 3 U/L Low 7-52 [facility] Comment on above: Performed By: #### C MP, PHOS, MG, CBC ####[address] Anion gap [Moles/Vol] 22.0 mmol/L High 6.0-15.0 [facility] Comment on above: Performed By: #### C MP, PHOS, MG, CBC ####[address] AST [Catalytic activity/Vol] 10 U/L Low 13-39 [facility] Comment on above: Performed By: #### C MP, PHOS, MG, CBC ####[address] Bilirubin [Mass/Vol] 0.3 mg/dL Normal 0.3-1.0 [facility] Comment on above: Performed By: #### C MP, PHOS, MG, CBC ####[address] Calcium [Mass/Vol] 8.0 mg/dL Low 8.6-10.3 [facility] Comment on above: Performed By: #### C MP, PHOS, MG, CBC ####[address] Chloride [Moles/Vol] 100 mmol/L Normal 98-107 [facility] Comment on above: Performed By: #### C MP, PHOS, MG, CBC ####[address] CO2 [Moles/Vol] 20.8 mmol/L Low 21.0-31.0 [facility] Comment on above: Performed By: #### C MP, PHOS, MG, CBC ####[address] Creatinine [Mass/Vol] 7.13 mg/dL Significan t change up 0.60-1.20 [facility] Comment on above: Performed By: #### C MP, PHOS, MG, CBC ####[address] Creatinine Clr Calc Pharmacy 8.93 Normal [facility] Comment on above: Performed By: #### C MP, PHOS, MG, CBC ####[address] Estimated GFR 6.339 mL/Min Normal [facility] Comment on above: Performed By: #### C MP, PHOS, MG, CBC ####[address] Globulin (S) [Mass/Vol] 3.7 g/dL Normal [facility] Comment on above: Performed By: #### C MP, PHOS, MG, CBC ####[address] Glucose [Mass/Vol] 118 mg/dL High 70-100 [facility] Comment on above: Result Comment: [place] Glucose Reference Range is dependent on time and content of last meal. Glucose of more than 200 mg/dL in a nonstressed, ambulatory subject supports the diagnosis of Diabetes Mellitus. ADA recommended reference range Performed By: #### C MP, PHOS, MG, CBC ####[place] [id number] [place] [id number] [facility] Potassium [Moles/Vol] 3.8 mmol/L Normal 3.5-5.1 [facility] Comment on above: Performed By: #### C MP, PHOS, MG, CBC ####[place] [id number] [facility] Protein [Mass/Vol] 7.1 g/dL Normal 6.4-8.9 [facility] Comment on above: Performed By: #### C MP, PHOS, MG, CBC ####[place] [id number] [facility] Sodium [Moles/Vol] 139 mmol/L Normal 136-145 [facility] Comment on above: Performed By: #### C MP, PHOS, MG, CBC ####[place] [id number] [facility] Urea nitrogen [Mass/Vol] 57 mg/dL Significant change up 05-19 [facility] Comment on above: Performed By: #### C MP, PHOS, MG, CBC ####[place] [id number] [facility] Glucose Poct Glucometerson 0 02-25-2025 Glucose [Mass/Vol] 208 mg/dL Normal [facility] Comment on above: Result Comment: [facility] [place] Glucose Reference Range is dependent on time and content of last meal. Glucose of more than 200 mg/dL in a nonstressed, ambulatory subject supports the diagnosis of Diabetes Mellitus.PERFORMED BY:[place] [address] [address] [place], [place] [phone] MEDICAL JUANA ACKERMAN M.D. Performed By: #### G LULS ####Point of Care testing, Glucose [Mass/Vol] 245 mg/dL Normal [facility] Comment on above: Result Comment: [facility] [place] Glucose Reference Range is dependent on time and content of last meal. Glucose of more than 200 mg/dL in a nonstressed, ambulatory subject supports the diagnosis of Diabetes Mellitus.PERFORMED BY:[place] [address] [phone] MEDICAL DIRECTORKEMAL ACKERMAN M.D. Performed By: #### G LULS ####Point of Care testing, Glucose [Mass/Vol] 128 mg/dL Normal [facility] Comment on above: Result Comment: [place] Glucose Reference Range is dependent on time and content of last meal. Glucose of more than 200 mg/dL in a nonstressed, ambulatory subject supports the diagnosis of Diabetes Mellitus.PERFORMED BY:[address] [place], [place] [phone] MEDICAL DIRECTORKEMAL ACKERMAN M.D. Performed By: #### G LULS ####Point of Care testing, Commemt1 Glu2: Cleaned Meter Normal [facility] Comment on above: Result Comment: PERF ORMED BY:[address] [place], [place] [phone] MEDICAL DIRECTORKEMAL ACKERMAN M.D. Performed By: #### G LULS ####Point of Care testing, Glucose [Mass/Vol] 124 mg/dL Normal [facility] Comment on above: Result Comment: [facility] [place] Glucose Reference Range is dependent on time and content of last meal. Glucose of more than 200 mg/dL in a nonstressed, ambulatory subject supports the diagnosis of Diabetes Mellitus. Performed By: #### G LULS ####Point of Care testing, Magnesiumon 02-25-2025 Magnesium [Mass/Vol] 1.8 mg/dL Low 1.9-2.7 [facility] Comment on above: Result Comment: PERF ORMED BY:[address] [place], [place] [phone] MEDICAL DIRECTORKEMAL ACKERMAN M.D. Performed By: #### C MP, PHOS, MG, CBC ####[address] [address] [facility] No Panel InformationOrdered By: Becky Nash on 02-25-2025 Bedside Glucose Comment Glu2: cleaned meter [facility] Phosphoruson 02-25-2025 Phosphate [Mass/Vol] 6.5 mg/dL High 2.5-4.5 [facility] Comment on above: Performed By: #### C MP, PHOS, MG, CBC ####[place] [address] [place] [address] [facility] ABO/Rh Retypeon 02-24-2025 ABO/RH Recheck Result Positive Normal [facility] Comment on above: Result Comment: PERF ORMED BY:[address] [place]anaCassie[place], [place] [phone] MEDICAL DIRECTORKEMAL ACKERMAN M.D. Aerobic Cultureon 02-24-2025 Aerobic Culture Normal [facility] Comment on above: Performed By: #### A ERC ####[address] [address] [facility] Aerobic cultureOrdered By: Elinor Rodrigues on 02-24-2025 Bacteria identified Aer cx Nom (Unsp spec) Escherichia coli Abnormal [facility] Anaerobic cultureOrdered By: Isai Rodrigues on 02-24-2025 Bacteria identified Anaer cx Nom (Unsp spec) Anaerobic culture [facility] Bacteria identified Anaer cx Nom (Unsp spec) No Anaerobes Isolated 3 Days [facility] Bacteria identified Aer cx N om (Unsp spec)Ordered By: Isai Rodrigues on 02-24-2025 Escherichia coli Escherichia coli Abnormal [facility] Complete Blood Count Auto Di ffon 02-24-2025 Basophils (Bld) [#/Vol] 0.1 10*3/uL Normal 0.0-0.2 [facility] Comment on above: Result Comment: PERF ORMED BY:[place] [address] [address] [place], [place] [phone] MEDICAL DIRECTORKEMAL ACKERMAN M.D. Performed By: #### P HOS, MG, CBC, CMP ####[address] [address] [facility] Basophils/100 WBC (Bld) 1.0 % Normal . [facility] Comment on above: Performed By: #### P HOS, MG, CBC, CMP ####[address] Eosinophils (Bld) [#/Vol] 0.3 10*3/uL Normal 0.0-0.45 [facility] Comment on above: Performed By: #### P HOS, MG, CBC, CMP ####[address] Eosinophils/100 WBC (Bld) 2.9 % Normal . [facility] Comment on above: Performed By: #### P HOS, MG, CBC, CMP ####[address] Erythrocyte distribution width (RBC) [Ratio] 14.6 % Normal 11.9-15.3 [facility] Comment on above: Performed By: #### P HOS, MG, CBC, CMP ####[address] Hematocrit (Bld) [Volume fraction] 20.6 % Low 34.0-46.4 [facility] Comment on above: Performed By: #### P HOS, MG, CBC, CMP ####[address] Hemoglobin (Bld) [Mass/Vol] 6.9 g/dL Low 11.8-15.4 [facility] Comment on above: Performed By: #### P HOS, MG, CBC, CMP ####[address] Lymphocytes (Bld) [#/Vol] 1.1 10*3/uL Normal 1.00-4.8 [facility] Comment on above: Performed By: #### P HOS, MG, CBC, CMP ####[address] Lymphocytes/100 WBC (Bld) 10.2 % Normal . [facility] Comment on above: Performed By: #### P HOS, MG, CBC, CMP ####[place] [address] MCH (RBC) [Entitic mass] 27.9 pg Normal 24.7-34.3 [facility] Comment on above: Performed By: #### P HOS, MG, CBC, CMP ####[address] MCV (RBC) [Entitic vol] 83.2 fL Normal 80-100 [facility] Comment on above: Performed By: #### P HOS, MG, CBC, CMP ####[address] Mean Corpuscular HGB Conc 33.5 g/dL Normal 32.0-35.0 [facility] Comment on above: Performed By: #### P HOS, MG, CBC, CMP ####[address] Monocytes (Bld) [#/Vol] 1.2 10*3/uL High 0.0-0.8 [facility] Comment on above: Performed By: #### P HOS, MG, CBC, CMP ####[address] Monocytes/100 WBC (Bld) 11.3 % Normal . [facility] Comment on above: Performed By: #### P HOS, MG, CBC, CMP ####[address] Neutrophils (Bld) [#/Vol] 8.0 10*3/uL High 1.8-7.7 [facility] Comment on above: Performed By: #### P HOS, MG, CBC, CMP ####[address] Neutrophils/100 WBC (Bld) 74.6 % Normal . [facility] Comment on above: Performed By: #### P HOS, MG, CBC, CMP ####[address] NRBC% 0.2 /100{WBC} Normal 0-0.5 [facility] Comment on above: Performed By: #### P HOS, MG, CBC, CMP ####[address] Platelet mean volume (Bld) [Entitic vol] 9.1 fL Normal 6.3-10.7 [facility] Comment on above: Performed By: #### P HOS, MG, CBC, CMP ####[address] Platelets (Bld) [#/Vol] 318 10*3/uL Normal 150-450 [facility] Comment on above: Performed By: #### P HOS, MG, CBC, CMP ####[address] RBC (Bld) [#/Vol] 2.47 10*6/uL Low 3.60-5.00 [facility] Comment on above: Performed By: #### P HOS, MG, CBC, CMP ####[address] WBC (Bld) [#/Vol] 10.7 10*3/uL Normal 3.8-11.6 [facility] Comment on above: Performed By: #### P HOS, MG, CBC, CMP ####[address] Comprehensive Metabolic Pane christiano 02-24-2025 Albumin [Mass/Vol] 3.1 g/dL Low 3.5-5.7 [facility] Comment on above: Performed By: #### P HOS, MG, CBC, CMP ####[address] Albumin/Globulin [Mass ratio] 0.9 {ratio} Normal [facility] Comment on above: Performed By: #### P HOS, MG, CBC, CMP ####[address] ALP [Catalytic activity/Vol] 59 U/L Normal 34-104 [facility] Comment on above: Performed By: #### P HOS, MG, CBC, CMP ####[place] [id number] [facility] ALT [Catalytic activity/Vol] 5 U/L Low 7-52 [facility] Comment on above: Performed By: #### P HOS, MG, CBC, CMP ####[address] Anion gap [Moles/Vol] 25.3 mmol/L High 6.0-15.0 [facility] Comment on above: Performed By: #### P HOS, MG, CBC, CMP ####[address] AST [Catalytic activity/Vol] 8 U/L Low 13-39 [facility] Comment on above: Performed By: #### P HOS, MG, CBC, CMP ####[address] Bilirubin [Mass/Vol] 0.2 mg/dL Low 0.3-1.0 [facility] Comment on above: Performed By: #### P HOS, MG, CBC, CMP ####[address] Calcium [Mass/Vol] 7.8 mg/dL Low 8.6-10.3 [facility] Comment on above: Performed By: #### P HOS, MG, CBC, CMP ####[address] Chloride [Moles/Vol] 106 mmol/L Normal 98-107 [facility] Comment on above: Performed By: #### P HOS, MG, CBC, CMP ####[place] [id number] [facility] CO2 [Moles/Vol] 15.3 mmol/L Low 21.0-31.0 [facility] Comment on above: Performed By: #### P HOS, MG, CBC, CMP ####[address] Creatinine [Mass/Vol] 11.38 mg/dL High 0.60-1.20 [facility] Comment on above: Performed By: #### P HOS, MG, CBC, CMP ####[address] Creatinine Clr Calc Pharmacy 5.57 Normal [facility] Comment on above: Performed By: #### P HOS, MG, CBC, CMP ####[address] Estimated GFR 3.617 mL/Min Normal [facility] Comment on above: Performed By: #### P HOS, MG, CBC, CMP ####[address] Globulin (S) [Mass/Vol] 3.3 g/dL Normal [facility] Comment on above: Performed By: #### P HOS, MG, CBC, CMP ####[address] Glucose [Mass/Vol] 119 mg/dL High 70-100 [facility] Comment on above: Result Comment: [facility] [place] Glucose Reference Range is dependent on time and content of last meal. Glucose of more than 200 mg/dL in a nonstressed, ambulatory subject supports the diagnosis of Diabetes Mellitus. ADA recommended reference range Performed By: #### P HOS, MG, CBC, CMP ####[address] Potassium [Moles/Vol] 3.6 mmol/L Normal 3.5-5.1 [facility] Comment on above: Performed By: #### P HOS, MG, CBC, CMP ####[address] Protein [Mass/Vol] 6.4 g/dL Normal 6.4-8.9 [facility] Comment on above: Performed By: #### P HOS, MG, CBC, CMP ####[address] Sodium [Moles/Vol] 143 mmol/L Significant change down 136-145 [facility] Comment on above: Performed By: #### P HOS, MG, CBC, CMP ####[address] [place] [address] [facility] Urea nitrogen [Mass/Vol] 108 mg/dL High 7-25 [facility] Comment on above: Performed By: #### P HOS, MG, CBC, CMP ####[facility] [address] [place] [id number] [facility] ECG 12 lead ECGon 02-24-2025 ECG 12 lead ECG Normal [facility] Free K+L LT Chains, Qn, Son 02-24-2025 Free [place] Light Chains, S 133.5 mg/L High 3.3-19.4 [facility] Comment on above: Performed By: #### K APPA ####[facility] , Free Lambda Light Chains, S 71.7 mg/L High 5.7-26.3 [facility] Comment on above: Performed By: #### K APPA ####[facility] , [place]/Lambda Ratio, S 1.86 High 0.26-1.65 [facility] Comment on above: Result Comment: Perf ormed at: - [facility] [place] [id number] Et[place] Bi Developer: Louis Hansen PhD, Phone: [phone] BY:[place] [address] [place] [place], [place] [phone] MEDICAL DIRECTORMOCINDY ACKERMAN M.D. Performed By: #### K APPA ####[facility] , Glucose Poct Glucometerson 0 02-24-2025 Commemt1 Glu2: Cleaned Meter Normal [facility] Comment on above: Result Comment: PERF ORMED BY:[place] [address] [address] [place], [place] [phone] MEDICAL DIRECTORKEMAL ACKERMAN M.D. Performed By: #### G LULS ####Point of Care testing, Glucose [Mass/Vol] 132 mg/dL Normal [facility] Comment on above: Result Comment: [facility] [place] Glucose Reference Range is dependent on time and content of last meal. Glucose of more than 200 mg/dL in a nonstressed, ambulatory subject supports the diagnosis of Diabetes Mellitus. Performed By: #### G LULS ####Point of Care testing, Glucose [Mass/Vol] 149 mg/dL Normal [facility] Comment on above: Result Comment: [facility] Glucose Reference Range is dependent on time and content of last meal. Glucose of more than 200 mg/dL in a nonstressed, ambulatory subject supports the diagnosis of Diabetes Mellitus.PERFORMED BY:[place] [address] [address] [place], [place] [phone] MEDICAL DIRECTORKEMAL ACKERMAN M.D. Performed By: #### G LULS ####Point of Care testing, Commemt1 Glu2: Cleaned Meter Normal [facility] Comment on above: Result Comment: PERF ORMED BY:[address] [place], [place] [phone] MEDICAL DIRECTORKEMAL ACKERMAN M.D. Performed By: #### G LULS ####Point of Care testing, Glucose [Mass/Vol] 134 mg/dL Normal [facility] Comment on above: Result Comment: [facility] Glucose Reference Range is dependent on time and content of last meal. Glucose of more than 200 mg/dL in a nonstressed, ambulatory subject supports the diagnosis of Diabetes Mellitus. Performed By: #### G LULS ####Point of Care testing, Glucose [Mass/Vol] 135 mg/dL Normal [facility] Comment on above: Result Comment: [facility] Glucose Reference Range is dependent on time and content of last meal. Glucose of more than 200 mg/dL in a nonstressed, ambulatory subject supports the diagnosis of Diabetes Mellitus.PERFORMED BY:[place] [address] [place], [place] [phone] MEDICAL DIRECTORKEMAL ACKERMAN M.D. Performed By: #### G LULS ####Point of Care testing, Gram stain microscopyOrdered By: Isai Rodrigues on 02-24-2025 Microscopic observation Gram stain Nom (Unsp spec) Gram stain microscopy [facility] Microscopic observation Gram stain Nom (Unsp spec) [facility] Hepatitis A virus IgM antibo dy assayOrdered By: Rodo Martinez on 02-24-2025 Hepatitis A IgM Antibody Negative Negative [facility] Comment on above: A negative anti-HAV IgM result suggests no recent orcurrent HAV infection. Hepatitis Acute Panelon HBsAg Screen Negative Normal Negative [facility] Comment on above: Performed By: #### H BCAB, HEPACUTE, HBSAB ####[facility] , Hepatitis A Antibody IgM Negative Normal Negative [facility] Comment on above: Result Comment: A ne gative anti-HAV IgM result suggests no recent or current HAV infection. Performed By: #### H BCAB, HEPACUTE, HBSAB ####[facility] , Hepatitis B Core Antibody IgM Negative Normal Negative [facility] Comment on above: Performed By: #### H BCAB, HEPACUTE, HBSAB ####[facility] , Hepatitis C Virus Antibody Non-Reactive Normal Non Reactive [facility] Comment on above: Performed By: #### H BCAB, HEPACUTE, HBSAB ####[facility] , Interpretation Hepatitis C Comment Normal . [facility] Comment on above: Result Comment: Not infected with HCV unless early or acute infection is suspected (which may be delayed in an immunocompromised individual), or other evidence exists to indicate HCV infection. Performed By: #### H BCAB, HEPACUTE, HBSAB ####[facility] , Hepatitis B Core Antibodyon 02-24-2025 Hepatitis B Core Antibody Negative Normal Negative [facility] Comment on above: Result Comment: Perf ormed at: - [facility] [address] [id number] Et[place] Bi Developer: Louis Hansen PhD, Phone: [phone] BY:[place] [address] [address] [place], [place] [phone] MEDICAL DIRECTORKEMAL ACKERMAN M.D. Performed By: #### H BCAB, HEPACUTE, HBSAB ####[facility] , Hepatitis B Surface Antibody on 02-24-2025 Hepatitis B Surface Antibody Non-Reactive Normal . [facility] Comment on above: Result Comment: Non Reactive: Not immune to HBV infection. Equivocal: Unable to determine if anti-HBs is present at levels consistent with immunity. Reactive: Anti-HBs concentration detected at greater than 10 mIU/mL. Individual is considered to be immune to infection with HBV. Performed By: #### H BCAB, HEPACUTE, HBSAB ####[facility] , Hepatitis B virus core IgM a ntibody assayOrdered By: Rodo Martinez on 02-24-2025 Hepatitis B Core IgM Antibody Negative Negative [facility] Hepatitis B virus core antib olayinka assayOrdered By: Rodo Martinez on 02-24-2025 Hepatitis B Core Total Antibody Negative Negative [facility] Comment on above: Performed at: [place] [id number] Director: Louis Hansen PhD, Phone: [phone] Hepatitis C virus IgG Ab [Pr esence] in Serum or Plasma by ImmunoassayOrdered By: Rodo Martinez on 02-24-2025 HCV IgG IA Ql Hepatitis C virus Ig G Ab [Presence] in Serum or Plasma by Immunoassay Non Reactive [facility] HCV IgG IA Ql Non-Reactive Non Reactive [facility] Christiano 02-24-2025 L Normal [facility] Magnesiumon 02-24-2025 Magnesium [Mass/Vol] 1.7 mg/dL Low 1.9-2.7 [facility] Comment on above: Result Comment: PERF ORMED BY:[facility] [place], [place] [phone] MEDICAL DIRECTORKEMAL ACKERMAN M.D. Performed By: #### P HOS, MG, CBC, CMP ####[facility] [address] [place] [id number] [facility] No Panel InformationOrdered By: Rodo Martinez on 02-24-2025 Hepatitis C Interpretation Comment . [facility] Comment on above: Not infected with HC V unless early or acute infection issuspected (which may be delayed in an immunocompromisedindividual), or other evidence exists to indicate HCVinfection. Phosphoruson 02-24-2025 Phosphate [Mass/Vol] 10.0 mg/dL High 2.5-4.5 [facility] Comment on above: Performed By: #### P HOS, MG, CBC, CMP ####[facility] [id number] [place] [id number] [facility] Quantitative serum or plasma hepatitis C virus RNA assay by real-time PCR (units/voluOrdered By: Rodo Martinez on 02-24-2025 HCV RNA CIPRIANO+probe Qn Hepatitis C virus R NA [Units/volume] (viral load) in Serum or Plasma by CIPRIANO with prob [facility] HCV RNA CIPRIANO+probe Qn N/A [facility] Serum free kappa light chain measurementOrdered By: Rodo Martinez on 02-24-2025 Immunoglobulin light chains.kappa.free (S) [Mass/Vol] Immunoglobulin light chains.kappa.free [Mass/volume] in Serum High 3.3-19.4 [facility] Immunoglobulin light chains.kappa.free (S) [Mass/Vol] 133.5 mg/L High 3.3-19.4 [facility] Serum hepatitis B virus surf jesus alberto antibody detectionOrdered By: Rodo Martinez on 02-24-2025 HBV surface Ab Ql (S) Hepatitis B virus surface Ab [Presence] in Serum . [facility] Comment on above: Non Reactive: Not im mune to HBV infection. Equivocal: Unable to determine if anti-HBs is present at levels consistent with immunity. Reactive: Anti-HBs concentration detected at greater than 10 mIU/mL. Individual is considered to be immune to infection with HBV. HBV surface Ab Ql (S) Non-Reactive . [facility] Comment on above: Non Reactive: Not im mune to HBV infection. Equivocal: Unable to determine if anti-HBs is present at levels consistent with immunity. Reactive: Anti-HBs concentration detected at greater than 10 mIU/mL. Individual is considered to be immune to infection with HBV. Serum immunoglobulin free ka ppa light chains/immunoglobulin free lambda light chainsOrdered By: Rodo Martinez on 02-24-2025 Immunoglobulin light chains.kappa.free/Immun oglobulin light chains.lambda.free (S) [Mass ratio] Immunoglobulin light chains.kappa.free/Immunog lobulin light chains.lambda.free [Mass High 0.26-1.65 [facility] Comment on above: Performed at: [facility] [address] [place], [place] [id number] Director: Louis Hansen PhD, Phone: [phone] Immunoglobulin light chains.kappa.free/Immun oglobulin light chains.lambda.free (S) [Mass ratio] 1.86 High 0.26-1.65 [facility] Comment on above: Performed at: [facility] [address] [place], [place] [id number] Director: Louis Hansen PhD, Phone: [phone] Serum or plasma hepatitis B virus surface antigen detection by immunoassayOrdered By: Rodo aMrtinez on 02-24-2025 HBV surface Ag IA Ql Hepatitis B virus s urface Ag [Presence] in Serum or Plasma by Immunoassay Negative [facility] HBV surface Ag IA Ql Negative Negative [facility] Serum or plasma hepatitis C virus RNA measurement by probe and target amplification mOrdered By: Rodo Martinez on 02-24-2025 HCV RNA CIPRIANO+probe [Log units/Vol] Hepatitis C virus RNA [log units/volume] (viral load) in Serum or Plasma by CIPRIANO with [facility] HCV RNA CIPRIANO+probe [Log units/Vol] N/A [facility] Serum or plasma immunoglobul in free lambda light chains measurement (mass/volume)Ordered By: Rodo Martinez on 02-24-2025 Immunoglobulin light chains.lambda.free [Mass/Vol] Immunoglobulin light chains.lambda.free [Mass/volume] in Serum or Plasma High 5.7-26.3 [facility] Immunoglobulin light chains.lambda.free [Mass/Vol] 71.7 mg/L High 5.7-26.3 [facility] XR chest 1V portableon 02-24 XR chest 1V portable Normal [facility] A1C with Estimated Average G luon 02-23-2025 Glucose [Mass/Vol] 126 mg/dL Normal [facility] Comment on above: Result Comment: PERF ORMED BY:[address] [place], [place] [phone] MEDICAL DIRECTORKEMAL ACKERMAN M.D. Performed By: #### R ETIC, PTT, JOCELYN, LIPID, B12, FOL, A1C WTH eA, FE and TIBC, PT ####[address] [address] [facility] Appearance of UrineOrdered B y: Lynette Dumont on 02-23-2025 Appearance (U) Urine appearance Clear [facility] Appearance (U) Clear Normal Clear [facility] Comment on above: Order Comment: Name Collection Type:: Clean-Voided Midstream Performed By: #### A DDONUAPLUS, CUU, URTP, UEOS, UCREA, JON ####[place] [id number] [facility] Bacteria [Presence] in Urine by AutomatedOrdered By: Lynette Mackris on 02-23-2025 Bacteria Auto Ql (U) Bacteria [Presence] in Urine by Automated None Seen [facility] Bacteria Auto Ql (U) Rare [HPF] None Seen [facility] Basic Metabolic Panelon Anion gap [Moles/Vol] 25.2 mmol/L High 6.0-15.0 [facility] Comment on above: Performed By: #### B MP ####[place] [id number] [facility] Calcium [Mass/Vol] 8.1 mg/dL Low 8.6-10.3 [facility] Comment on above: Performed By: #### B MP ####[address] [address] [facility] Chloride [Moles/Vol] 106 mmol/L Normal 98-107 [facility] Comment on above: Performed By: #### B MP ####[place] [id number] [facility] CO2 [Moles/Vol] 9.4 mmol/L Low 21.0-31.0 [facility] Comment on above: Performed By: #### B MP ####[address] [address] [facility] Creatinine [Mass/Vol] 11.50 mg/dL Significan t change up 0.60-1.20 [facility] Comment on above: Performed By: #### B MP ####[address] [address] [facility] Creatinine Clr Calc Pharmacy 5.47 Normal [facility] Comment on above: Result Comment: PERF ORMED BY:[address] [place], [place] [id number] MEDICAL JUANA ACKERMAN M.D. Performed By: #### B MP ####[address] [address] [facility] Estimated GFR 3.572 mL/Min Normal [facility] Comment on above: Performed By: #### B MP ####[place] [id number] [facility] Glucose [Mass/Vol] 133 mg/dL High 70-100 [facility] Comment on above: Result Comment: [place] Glucose Reference Range is dependent on time and content of last meal. Glucose of more than 200 mg/dL in a nonstressed, ambulatory subject supports the diagnosis of Diabetes Mellitus. ADA recommended reference range Performed By: #### B MP ####[address] [address] [facility] Potassium [Moles/Vol] 4.6 mmol/L Normal 3.5-5.1 [facility] Comment on above: Performed By: #### B MP ####[address] [address] [facility] Sodium [Moles/Vol] 136 mmol/L Normal 136-145 [facility] Comment on above: Performed By: #### B MP ####[address] [address] [facility] Urea nitrogen [Mass/Vol] 108 mg/dL High 7-25 [facility] Comment on above: Performed By: #### B MP ####[place] [id number] [facility] Bilirubin Test strip Ql (U)O rdered By: Lynette Dumont on 02-23-2025 Bilirubin Ql (U) Bilirubin.total [Presence] in Urine by Test strip Negative [facility] Bilirubin Ql (U) Negative Negative [facility] Blood estimated average gluc ose determination by estimation from glycated hemoglobinOrdered By: Lynette Dumont on 02-23-2025 Average glucose Estimated from glycated hemoglobin (Bld) [Mass/Vol] Glucose mean value [Mass/volume] in Blood Estimated from glycated hemoglobin [facility] Average glucose Estimated from glycated hemoglobin (Bld) [Mass/Vol] 126 mg/dL [facility] C reactive protein [Mass/vol ume] in Serum or PlasmaOrdered By: Lynette Dumont on 02-23-2025 CRP [Mass/Vol] C reactive protein [Mass/volume] in Serum or Plasma High 0.0-0.5 [facility] C-Reactive Proteinon 025 C-Reactive Protein 20.5 mg/dL High 0.0-0.5 [facility] Comment on above: Order Comment: Comme nt add on to previous draw if possible Result Comment: PERF ORMED BY:[place] [id number] [place], [place] [phone] MEDICAL DIRECTORKEMAL ACKERMAN M.D. Performed By: #### E SR, CRP ####[facility] [place] [address] [facility] Cholesterol [Mass/volume] in Serum or PlasmaOrdered By: Lynette Dumont on 02-23-2025 Cholesterol [Mass/Vol] Cholesterol [Mass /volume] in Serum or Plasma 140-200 [facility] Comment on above: Chol less than 200 m g/dl low riskChol 201-239 mg/dl borderline riskChol 240 mg/dl and greater high risk Cholesterol [Mass/Vol] 140 mg/dL Normal 140-200 [facility] Comment on above: Chol less than 200 m g/dl low riskChol 201-239 mg/dl borderline riskChol 240 mg/dl and greater high risk Result Comment: Chol less than 200 mg/dl low risk Chol 201-239 mg/dl borderline risk Chol 240 mg/dl and greater high risk Performed By: #### R ETIC, PTT, JOCELYN, LIPID, B12, FOL, A1C WTH eA, FE and TIBC, PT ####[facility] [id number] [place] [id number] [facility] Cholesterol in HDL [Mass/vol ume] in Serum or PlasmaOrdered By: Lynette Dumont on 02-23-2025 Cholesterol in HDL [Mass/Vol] Serum or plasma high density lipoprotein (HDL) cholesterol measurement [facility] Comment on above: HDL CHOL ATP-III CLA SSIFICATION Cardiovascular RiskHDL > or equal to 60 mg/dL LOWHDL < 40 mg/dL HIGH Cholesterol in HDL [Mass/Vol] 29 mg/dL Normal [facility] Comment on above: HDL CHOL ATP-III CLA SSIFICATION Cardiovascular RiskHDL > or equal to 60 mg/dL LOWHDL < 40 mg/dL HIGH Result Comment: HDL CHOL ATP-III CLASSIFICATION Cardiovascular Risk HDL > or equal to 60 mg/dL LOW HDL < 40 mg/dL HIGH Performed By: #### R ETIC, PTT, JOCELYN, LIPID, B12, FOL, A1C WTH eA, FE and TIBC, PT ####[facility] [id number] [place] [id number] [facility] Cholesterol in LDL Calc [Mas s/Vol]Ordered By: Lynette Dumont on 02-23-2025 Cholesterol in LDL [Mass/Vol] Cholesterol in LDL [Mass/volume] in Serum or Plasma by calculation [facility] Comment on above: LDL ATP III CLASSIFI CATIONLDL less than 100 mg/dL OptimalLDL 100-129 mg/dL Near or above optimalLDL 130-159 mg/dL Borderline highLDL 160-189 mg/dL HighLDL greater than 189 mg/dL Very high Cholesterol in LDL [Mass/Vol] 86 mg/dL 0 [facility] Comment on above: LDL ATP III CLASSIFI CATIONLDL less than 100 mg/dL OptimalLDL 100-129 mg/dL Near or above optimalLDL 130-159 mg/dL Borderline highLDL 160-189 mg/dL HighLDL greater than 189 mg/dL Very high Cholesterol in VLDL Calc [Ma ss/Vol]Ordered By: Lynette Dumont on 02-23-2025 Cholesterol in VLDL [Mass/Vol] Cholesterol in VLDL [Mass/volume] in Serum or Plasma by calculation [facility] Cholesterol in VLDL [Mass/Vol] 25 mg/dL [facility] Color Auto (U)Ordered By: Zehra Dumont on 02-23-2025 Color (U) Color of Urine by Auto Yellow [facility] Color of Urine by AutoOrdere d By: Lynette Dumont on 02-23-2025 Color (U) Colorless Normal Yellow [facility] Comment on above: Order Comment: Name Collection Type:: Clean-Voided Midstream Performed By: #### A DDONUAPLUS, CUU, URTP, UEOS, UCREA, JON ####[place] [address] Complete Blood Count Auto Di ffon 02-23-2025 Basophils (Bld) [#/Vol] 0.1 10*3/uL Normal 0.0-0.2 [facility] Comment on above: Result Comment: PERF ORMED BY:[address] [place], [place] [phone] MEDICAL DIRECTORKEMAL ACKERMNA M.D. Performed By: #### M G, CMP, CBC ####[address] Basophils/100 WBC (Bld) 1.1 % Normal . Kartik rasmussen [facility] Comment on above: Performed By: #### M G, CMP, CBC ####[place] [address] [place] [id number] [facility] Eosinophils (Bld) [#/Vol] 0.4 10*3/uL Normal 0.0-0.45 [facility] Comment on above: Performed By: #### M G, CMP, CBC ####[place] [id number] [facility] Eosinophils/100 WBC (Bld) 2.9 % Normal . [facility] Comment on above: Performed By: #### M G, CMP, CBC ####[address] Erythrocyte distribution width (RBC) [Ratio] 15.0 % Normal 11.9-15.3 [facility] Comment on above: Performed By: #### Jeremiah Gordillo, CMP, CBC ####[address] Hematocrit (Bld) [Volume fraction] 25.6 % Low 34.0-46.4 [facility] Comment on above: Performed By: #### M Rand, CMP, CBC ####[address] Hemoglobin (Bld) [Mass/Vol] 8.2 g/dL Low 11.8-15.4 [facility] Comment on above: Performed By: #### Jeremiah Gordillo, CMP, CBC ####[address] Lymphocytes (Bld) [#/Vol] 0.9 10*3/uL Low 1.00-4.8 [facility] Comment on above: Performed By: #### Jeremiah Gordillo, CMP, CBC ####[address] Lymphocytes/100 WBC (Bld) 7.2 % Normal . [facility] Comment on above: Performed By: #### M Rand, CMP, CBC ####[address] MCH (RBC) [Entitic mass] 27.4 pg Normal 24.7-34.3 [facility] Comment on above: Performed By: #### M Rand, CMP, CBC ####[address] MCV (RBC) [Entitic vol] 85.2 fL Normal 80-100 [facility] Comment on above: Performed By: #### M Rand, CMP, CBC ####[address] Mean Corpuscular HGB Conc 32.2 g/dL Normal 32.0-35.0 [facility] Comment on above: Performed By: #### M G, CMP, CBC ####[address] Monocytes (Bld) [#/Vol] 1.0 10*3/uL High 0.0-0.8 [facility] Comment on above: Performed By: #### M G, CMP, CBC ####[place] [id number] [facility] Monocytes/100 WBC (Bld) 8.0 % Normal . [facility] Comment on above: Performed By: #### M G, CMP, CBC ####[address] Neutrophils (Bld) [#/Vol] 10.5 10*3/uL High 1.8-7.7 [facility] Comment on above: Performed By: #### M G, CMP, CBC ####[address] Neutrophils/100 WBC (Bld) 80.8 % Normal . [facility] Comment on above: Performed By: #### M G, CMP, CBC ####[address] NRBC% 0.0 /100{WBC} Normal 0-0.5 [facility] Comment on above: Performed By: #### M G, CMP, CBC ####[address] Platelet mean volume (Bld) [Entitic vol] 8.5 fL Normal 6.3-10.7 [facility] Comment on above: Performed By: #### M G, CMP, CBC ####[place] [id number] [facility] Platelets (Bld) [#/Vol] 341 10*3/uL Normal 150-450 [facility] Comment on above: Performed By: #### M G, CMP, CBC ####[address] RBC (Bld) [#/Vol] 3.00 10*6/uL Low 3.60-5.00 [facility] Comment on above: Performed By: #### M G, CMP, CBC ####[address] WBC (Bld) [#/Vol] 13.0 10*3/uL High 3.8-11.6 [facility] Comment on above: Performed By: #### M G, CMP, CBC ####[address] Comprehensive Metabolic Pane christiano 02-23-2025 Albumin [Mass/Vol] 3.5 g/dL Normal 3.5-5.7 [facility] Comment on above: Performed By: #### C MP ####[address] Albumin/Globulin [Mass ratio] 1.0 {ratio} Normal [facility] Comment on above: Performed By: #### C MP ####[address] ALP [Catalytic activity/Vol] 66 U/L Normal 34-104 [facility] Comment on above: Performed By: #### C MP ####[address] ALT [Catalytic activity/Vol] 8 U/L Normal 7-52 [facility] Comment on above: Performed By: #### C MP ####[address] Anion gap [Moles/Vol] 24.0 mmol/L High 6.0-15.0 [facility] Comment on above: Performed By: #### C MP ####[address] AST [Catalytic activity/Vol] 10 U/L Low 13-39 [facility] Comment on above: Performed By: #### C MP ####[address] Bilirubin [Mass/Vol] 0.2 mg/dL Low 0.3-1.0 [facility] Comment on above: Performed By: #### C MP ####[address] [address] [facility] Calcium [Mass/Vol] 8.0 mg/dL Low 8.6-10.3 [facility] Comment on above: Performed By: #### C MP ####[place] [id number] [facility] Chloride [Moles/Vol] 108 mmol/L High 98-107 [facility] Comment on above: Performed By: #### C MP ####[place] [id number] [facility] CO2 [Moles/Vol] 8.7 mmol/L Low 21.0-31.0 [facility] Comment on above: Performed By: #### C MP ####[place] [id number] [facility] Creatinine [Mass/Vol] 12.12 mg/dL High 0.60-1.20 [facility] Comment on above: Performed By: #### C MP ####[place] [id number] [facility] Creatinine Clr Calc Pharmacy 5.19 Normal [facility] Comment on above: Result Comment: PERF ORMED BY:[address] [place], [place] [id number] MEDICAL DIRECTORKEMAL ACKERMAN M.D. Performed By: #### C MP ####[address] [address] [facility] Estimated GFR 3.354 mL/Min Normal [facility] Comment on above: Performed By: #### C MP ####[place] [id number] [facility] Globulin (S) [Mass/Vol] 3.6 g/dL Normal [facility] Comment on above: Performed By: #### C MP ####[place] [id number] [facility] Glucose [Mass/Vol] 119 mg/dL High 70-100 [facility] Comment on above: Result Comment: [facility] Glucose Reference Range is dependent on time and content of last meal. Glucose of more than 200 mg/dL in a nonstressed, ambulatory subject supports the diagnosis of Diabetes Mellitus. ADA recommended reference range Performed By: #### C MP ####[place] [id number] [facility] Potassium [Moles/Vol] 4.7 mmol/L Normal 3.5-5.1 [facility] Comment on above: Performed By: #### C MP ####[place] [id number] [facility] Protein [Mass/Vol] 7.1 g/dL Normal 6.4-8.9 [facility] Comment on above: Performed By: #### C MP ####[place] [id number] [facility] Sodium [Moles/Vol] 136 mmol/L Normal 136-145 [facility] Comment on above: Performed By: #### C MP ####[place] [id number] [facility] Urea nitrogen [Mass/Vol] 110 mg/dL High 7-25 [facility] Comment on above: Performed By: #### C MP ####[place] [id number] [facility] Albumin [Mass/Vol] 3.6 g/dL Normal 3.5-5.7 [facility] Comment on above: Performed By: #### M G, CMP, CBC ####[place] [id number] [facility] Albumin/Globulin [Mass ratio] 0.9 {ratio} Normal [facility] Comment on above: Performed By: #### M G, CMP, CBC ####[place] [id number] [facility] ALP [Catalytic activity/Vol] 67 U/L Normal 34-104 [facility] Comment on above: Performed By: #### M G, CMP, CBC ####[place] [id number] [facility] ALT [Catalytic activity/Vol] 9 U/L Normal 7-52 [facility] Comment on above: Performed By: #### M G, CMP, CBC ####[address] Anion gap [Moles/Vol] 25.1 mmol/L High 6.0-15.0 [facility] Comment on above: Performed By: #### M Rand, CMP, CBC ####[address] AST [Catalytic activity/Vol] 9 U/L Low 13-39 [facility] Comment on above: Performed By: #### Jeremiah Gordillo, CMP, CBC ####[address] Bilirubin [Mass/Vol] 0.2 mg/dL Low 0.3-1.0 [facility] Comment on above: Performed By: #### Jeremiah Gordillo, CMP, CBC ####[address] Calcium [Mass/Vol] 8.2 mg/dL Low 8.6-10.3 [facility] Comment on above: Performed By: #### Jeremiah Gordillo, CMP, CBC ####[address] Chloride [Moles/Vol] 110 mmol/L High 98-107 [facility] Comment on above: Performed By: #### M Rand, CMP, CBC ####[place] [id number] [facility] CO2 [Moles/Vol] 6.6 mmol/L Low 21.0-31.0 [facility] Comment on above: Performed By: #### Jeremiah Gordillo, CMP, CBC ####[place] [id number] [facility] Creatinine [Mass/Vol] 12.19 mg/dL High 0.60-1.20 [facility] Comment on above: Performed By: #### Jeremiah G, CMP, CBC ####[address] Estimated GFR 3.331 mL/Min Normal [facility] Comment on above: Performed By: #### M G, CMP, CBC ####[address] [address] [facility] Globulin (S) [Mass/Vol] 3.8 g/dL Normal [facility] Comment on above: Performed By: #### M G, CMP, CBC ####[place] [id number] [facility] Glucose [Mass/Vol] 87 mg/dL Normal 70-100 [facility] Comment on above: Result Comment: [facility] Glucose Reference Range is dependent on time and content of last meal. Glucose of more than 200 mg/dL in a nonstressed, ambulatory subject supports the diagnosis of Diabetes Mellitus. ADA recommended reference range Performed By: #### M G, CMP, CBC ####[address] [address] [facility] Potassium [Moles/Vol] 4.7 mmol/L Normal 3.5-5.1 [facility] Comment on above: Performed By: #### M Rand, CMP, CBC ####[address] [address] [facility] Protein [Mass/Vol] 7.4 g/dL Normal 6.4-8.9 [facility] Comment on above: Performed By: #### M Rand, CMP, CBC ####[address] [address] [facility] Sodium [Moles/Vol] 137 mmol/L Normal 136-145 [facility] Comment on above: Performed By: #### M G, CMP, CBC ####[address] [address] [facility] Urea nitrogen [Mass/Vol] 109 mg/dL High 7-25 [facility] Comment on above: Performed By: #### M G, CMP, CBC ####[address] [address] [facility] Creatinine [Mass/volume] in UrineOrdered By: Lynette Dumont on 02-23-2025 Creatinine (U) [Mass/Vol] Creatinine [Mass/volume] in Urine [facility] Comment on above: No reference range e stablished Creatinine (U) [Mass/Vol] 67.00 mg/dL [facility] Comment on above: No reference range e stablished Creatinine, Urine (Random)on 02-23-2025 Creatinine, Urine (Random) 67.00 mg/dL Normal [facility] Comment on above: Result Comment: No r eference range established Performed By: #### A DDONUAPLUS, CUU, URTP, UEOS, UCREA, JON ####[address] Crystals [Presence] in Urine by AutomatedOrdered By: Lynette Dumont on 02-23-2025 Crystals Auto Ql (U) Crystals [Presence] in Urine by Automated [facility] Crystals Auto Ql (U) Rare [HPF] [facility] Dipstick and Microscopicon 0 02-23-2025 Bacteria,Urine Rare Normal None Seen [facility] Comment on above: Order Comment: Name Collection Type:: Clean-Voided Midstream Performed By: #### A DDONUAPLUS, CUU, URTP, UEOS, UCREA, JON ####[address] Bilirubin,Urine Negative Normal Negative [facility] Comment on above: Order Comment: Name Collection Type:: Clean-Voided Midstream Performed By: #### A DDONUAPLUS, CUU, URTP, UEOS, UCREA, JON ####[place] [id number] [facility] Budding Yeast,Urine 1+ High None Seen [facility] Comment on above: Order Comment: Name Collection Type:: Clean-Voided Midstream Performed By: #### A DDONUAPLUS, CUU, URTP, UEOS, UCREA, JON ####[place] [id number] [facility] Glucose Ql (U) Normal Normal Normal [facility] Comment on above: Order Comment: Name Collection Type:: Clean-Voided Midstream Performed By: #### A DDONUAPLUS, CUU, URTP, UEOS, UCREA, JON ####[address] Hyaline Casts,Urine None Normal 0-8 [facility] Comment on above: Order Comment: Name Collection Type:: Clean-Voided Midstream Performed By: #### A DDONUAPLUS, CUU, URTP, UEOS, UCREA, JON ####[address] Mucus,Urine Rare Normal [facility] Comment on above: Order Comment: Name Collection Type:: Clean-Voided Midstream Performed By: #### A DDONUAPLUS, CUU, URTP, UEOS, UCREA, JON ####[address] Nitrite,Urine Negative Normal Negative [facility] Comment on above: Order Comment: Name Collection Type:: Clean-Voided Midstream Performed By: #### A DDONUAPLUS, CUU, URTP, UEOS, UCREA, JON ####[address] Occult Blood,Urine 1+ High Negative [facility] Comment on above: Order Comment: Name Collection Type:: Clean-Voided Midstream Performed By: #### A DDONUAPLUS, CUU, URTP, UEOS, UCREA, JON ####[address] Othe Crystals,Urine Rare Normal [facility] Comment on above: Order Comment: Name Collection Type:: Clean-Voided Midstream Performed By: #### A DDONUAPLUS, CUU, URTP, UEOS, UCREA, JON ####[address] RBC,Urine 3-4 Normal 0-4 [facility] Comment on above: Order Comment: Name Collection Type:: Clean-Voided Midstream Performed By: #### A DDONUAPLUS, CUU, URTP, UEOS, UCREA, JON ####[address] Specificy [place],Urine 1.011 Normal 1.00 1-1.03 0 [facility] Comment on above: Order Comment: Name Collection Type:: Clean-Voided Midstream Performed By: #### A DDONUAPLUS, CUU, URTP, UEOS, UCREA, JON ####[address] Squamous Epithelial Cell,Urine 3-4 High 0-2 [facility] Comment on above: Order Comment: Name Collection Type:: Clean-Voided Midstream Performed By: #### A DDONUAPLUS, CUU, URTP, UEOS, UCREA, JON ####[address] Urobilinogen,Urine Normal Normal Normal [facility] Comment on above: Order Comment: Name Collection Type:: Clean-Voided Midstream Performed By: #### A DDONUAPLUS, CUU, URTP, UEOS, UCREA, JON ####[address] WBC CLUMP, Urine Moderate High None Seen [facility] Comment on above: Order Comment: Name Collection Type:: Clean-Voided Midstream Performed By: #### A DDONUAPLUS, CUU, URTP, UEOS, UCREA, JON ####[address] WBC,Urine 50-100 High 0-4 [facility] Comment on above: Order Comment: Name Collection Type:: Clean-Voided Midstream Performed By: #### A DDONUAPLUS, CUU, URTP, UEOS, UCREA, JON ####[address] Eosinophil,Urineon 5 Eosinophil,Urine 0 % Normal 0-1 [facility] Comment on above: Order Comment: Name Collection Type:: Clean-Voided Midstream Result Comment: PERF ORMED BY:[address], [place] [id number] MEDICAL DIRECTORKEMAL ACKERMAN M.D. Performed By: #### A DDONUAPLUS, CUU, URTP, UEOS, UCREA, JON ####[facility] [address] [place] [address] [facility] Eosinophils detection in uri ne sediment by Malin stainOrdered By: Lynette Dumont on 02-23-2025 Eosinophils Malin stain Ql (Urine sed) Eosinophils detection in urine sediment by Malin stain 0-1 [facility] Eosinophils Malin stain Ql (Urine sed) 0 % 0-1 [facility] Epithelial cells.squamous [# /area] in Urine sediment by Automated countOrdered By: Lynette Dumont on 02-23-2025 Epithelial cells.squamous Auto (Urine sed) [#/Area] Epithelial cells.squamous [#/area] in Urine sediment by Automated count High 0-2 [facility] Epithelial cells.squamous Auto (Urine sed) [#/Area] 3-4 [HPF] High 0-2 [facility] Erythrocyte Sedimentation Ra jose 02-23-2025 ESR (Bld) [Velocity] 84 mm/h High 0-29 [facility] Comment on above: Order Comment: Comme nt add on to previous draw if possible Result Comment: PERF ORMED BY:[address] [place], [place] [phone] MEDICAL DIRECTORKEMAL ACKERMAN M.D. Performed By: #### E SR, CRP ####[address] [place] [address] [facility] Erythrocyte sedimentation ra te by Photometric methodOrdered By: Lynette Dumont on 02-23-2025 ESR Photometric method (Bld) [Velocity] Erythrocyte sedimentation rate by Photometric method High 0-29 [facility] ESR Photometric method (Bld) [Velocity] 84 mm/hr High 0-29 [facility] Erythrocytes [#/area] in Uri ne sediment by Automated countOrdered By: Lynette Dumont on 02-23-2025 RBC Auto (Urine sed) [#/Area] Erythrocytes [#/area] in Urine sediment by Automated count 0-4 [facility] RBC Auto (Urine sed) [#/Area] 3-4 [HPF] 0-4 [facility] Ferritin [Mass/volume] in Se rum or PlasmaOrdered By: Lynette Dumont on 02-23-2025 Ferritin [Mass/Vol] Ferritin [Mass/volum e] in Serum or Plasma 11.0-306.8 [facility] Ferritin [Mass/Vol] 204.3 ng/mL Normal 11.0-306.8 [facility] Comment on above: Performed By: #### R ETIC, PTT, JOCELYN, LIPID, B12, FOL, A1C WTH eA, FE and TIBC, PT ####[facility] [place] [address] [facility] Folateon 02-23-2025 Folate 8.7 ng/mL Normal >5.9 [facility] Comment on above: Result Comment: Bonita te reference range: >5.9 ng/ml The WHO technical consultation on folate and vitamin b12 deficiencies has determined that folate concentrations less than 4 ng/ml are considered deficient.PERFORMED BY:[address] [place], [place] [phone] MEDICAL DIRECTORKEMAL ACKERMAN M.D. Performed By: #### R ETIC, PTT, JOCELYN, LIPID, B12, FOL, A1C WTH eA, FE and TIBC, PT ####[facility] [place] [address] [facility] Folate [Mass/volume] in Seru m or PlasmaOrdered By: Lynette Dumont on 02-23-2025 Folate [Mass/Vol] Folate [Mass/volume] in Serum or Plasma >5.9 [facility] Comment on above: Folate reference ran ge: >5.9 ng/mlThe WHO technical consultation on folate and vitamin [id number] has determined that folate concentrations lessthan 4 ng/ml are considered deficient. Folate [Mass/Vol] 8.7 ng/mL >5.9 [facility] Comment on above: Folate reference ran ge: >5.9 ng/mlThe WHO technical consultation on folate and vitamin [id number] has determined that folate concentrations lessthan 4 ng/ml are considered deficient. Glucose Poct Glucometerson 0 02-23-2025 Glucose [Mass/Vol] 173 mg/dL Normal [facility] Comment on above: Result Comment: [facility] Glucose Reference Range is dependent on time and content of last meal. Glucose of more than 200 mg/dL in a nonstressed, ambulatory subject supports the diagnosis of Diabetes Mellitus.PERFORMED BY:[address] [place], [place] [phone] MEDICAL DIRECTORKEMAL ACKERMAN M.D. Performed By: #### G LULS ####Point of Care testing, Glucose [Mass/Vol] 154 mg/dL Normal [facility] Comment on above: Result Comment: [facility] [place] Glucose Reference Range is dependent on time and content of last meal. Glucose of more than 200 mg/dL in a nonstressed, ambulatory subject supports the diagnosis of Diabetes Mellitus.PERFORMED BY:[address] [place] [place], [place] [phone] IONA ACKERMAN M.D. Performed By: #### G LULS ####Point of Care testing, Glucose [Mass/Vol] 95 mg/dL Normal [facility] Comment on above: Result Comment: [facility] [place] Glucose Reference Range is dependent on time and content of last meal. Glucose of more than 200 mg/dL in a nonstressed, ambulatory subject supports the diagnosis of Diabetes Mellitus.PERFORMED BY:[address] [address] [place] [place], [place] [phone] IONA DIRECTORKEMAL ACKERMAN M.D. Performed By: #### G LULS ####Point of Care testing, Glucose [Mass/Vol] 99 mg/dL Normal [facility] Comment on above: Result Comment: [facility] [place] Glucose Reference Range is dependent on time and content of last meal. Glucose of more than 200 mg/dL in a nonstressed, ambulatory subject supports the diagnosis of Diabetes Mellitus.PERFORMED BY:[address] [address] [place], [place] [phone] MEDICAL DIRECTORKEMAL ACKERMAN M.D. Performed By: #### G SOLO ####Point of Care testing, Glucose [Mass/volume] in Uri ne by Test stripOrdered By: Lynette Dumont on 02-23-2025 Glucose Test strip (U) [Mass/Vol] Glucose [Mass/volume] in Urine by Test strip Normal [facility] Glucose Test strip (U) [Mass/Vol] Normal mg/dL Normal [facility] Hemoglobin A1c/Hemoglobin.to la in BloodOrdered By: Lynette Dumont on 02-23-2025 HbA1c (Bld) [Mass fraction] Hemoglobin A1c percentage High 4.3-5.6 [facility] Comment on above: Increased risk for d iabetes: 5.7 - 6.4diabetes: >6.4glycemic control for adults with diabetes: <7.0 HbA1c (Bld) [Mass fraction] 6.0 % High 4.3-5.6 [facility] Comment on above: Increased risk for d iabetes: 5.7 - 6.4diabetes: >6.4glycemic control for adults with diabetes: <7.0 Result Comment: Incr eased risk for diabetes: 5.7 - 6.4 diabetes: >6.4 glycemic control for adults with diabetes: <7.0 Performed By: #### R ETIC, PTT, JOCELYN, LIPID, B12, FOL, A1C WTH eA, FE and TIBC, PT ####[facility] [id number] [place] [address] [facility] Hemoglobin Test strip Ql (U) Ordered By: Lynette Dumont on 02-23-2025 Hemoglobin Ql (U) Hemoglobin [Presence ] in Urine by Test strip High Negative [facility] Hemoglobin Ql (U) 1+ High Negative [facility] Hyaline casts [#/area] in Ur ine sediment by Automated countOrdered By: Lynette Dumont on 02-23-2025 Hyaline casts Auto (Urine sed) [#/Area] Hyaline casts [#/area] in Urine sediment by Automated count 0-8 [facility] Hyaline casts Auto (Urine sed) [#/Area] None [LPF] 0-8 [facility] INR in Platelet poor plasma by Coagulation assayOrdered By: Lynette Dumont on 02-23-2025 INR Coag (PPP) [Relative time] INR in Platelet poor plasma by Coagulation assay [facility] Comment on above: INR Therapeutic Rang e A) Pre- and Peroperative OAT started two weeks before surgery. NOT HIP SURGERY: 1.5 - 2.5 HIP SURGERY: 2 - 3B) Primary and secondary prevention of venous THROMBOSIS: 2 - 3C) Active venous thrombosis, pulmonary embolismand prevention of recurrent venous thrombosis: 2 - 3D) Prevention of arterial thromboembolismincluding patients with mechanical heart valves: 3 - 4.5 INR Coag (PPP) [Relative time] 1.3 {INR} Normal [facility] Comment on above: INR Therapeutic Rang e A) Pre- and Peroperative OAT started two weeks before surgery. NOT HIP SURGERY: 1.5 - 2.5 HIP SURGERY: 2 - 3B) Primary and secondary prevention of venous THROMBOSIS: 2 - 3C) Active venous thrombosis, pulmonary embolismand prevention of recurrent venous thrombosis: 2 - 3D) Prevention of arterial thromboembolismincluding patients with mechanical heart valves: 3 - 4.5 Result Comment: INR Therapeutic Range A) Pre- and Peroperative OAT started two weeks before surgery. NOT HIP SURGERY: 1.5 - 2.5 HIP SURGERY: 2 - 3 B) Primary and secondary prevention of venous THROMBOSIS: 2 - 3 C) Active venous thrombosis, pulmonary embolism and prevention of recurrent venous thrombosis: 2 - 3 D) Prevention of arterial thromboembolism including patients with mechanical heart valves: 3 - 4.5 Performed By: #### R ETIC, PTT, JOCELYN, LIPID, B12, FOL, A1C WTH eA, FE and TIBC, PT ####[facility] [id number] [facility] Iron [Mass/volume] in Serum or PlasmaOrdered By: Lynette Dumont on 02-23-2025 Iron [Mass/Vol] Iron [Mass/volume] i n Serum or Plasma Low 50-212 [facility] Iron [Mass/Vol] 37 ug/dL Low 50-212 [facility] Comment on above: Performed By: #### R ETIC, PTT, JOCELYN, LIPID, B12, FOL, A1C WTH eA, FE and TIBC, PT ####[address] Iron and TIBC Profileon 05-0 % Iron Saturation 22.6 % Normal 20-50 [facility] Comment on above: Performed By: #### R ETIC, PTT, JOCELYN, LIPID, B12, FOL, A1C WTH eA, FE and TIBC, PT ####[address] Total Iron Binding Capacity 164 ug/dL Low 255-450 [facility] Comment on above: Performed By: #### R ETIC, PTT, JOCELYN, LIPID, B12, FOL, A1C WTH eA, FE and TIBC, PT ####[address] Ketones Test strip Ql (U)Ord ered By: Lynette Dumont on 02-23-2025 Ketones Ql (U) Ketones [Presence] i n Urine by Test strip High Negative [facility] Ketones [Presence] in Urine by Test stripOrdered By: Lynette Dumont on 02-23-2025 Ketones Ql (U) Trace High Negative [facility] Comment on above: Order Comment: Name Collection Type:: Clean-Voided Midstream Performed By: #### A DDONUAPLUS, CUU, URTP, UEOS, UCREA, JON ####[address] Leukocyte clumps [Presence] in Urine by AutomatedOrdered By: Lynette Dumont on 02-23-2025 Leukocyte clumps Auto Ql (U) Leukocyte clumps [Presence] in Urine by Automated High None Seen [facility] Leukocyte clumps Auto Ql (U) Moderate [LPF] High None Seen [facility] Leukocyte esterase [Presence ] in Urine by Test stripOrdered By: Lynette Dumont on 02-23-2025 Leukocyte esterase Test strip Ql (U) Leukocyte esterase [Presence] in Urine by Test strip High Negative [facility] Leukocyte esterase Test strip Ql (U) 4+ High Negative [facility] Comment on above: Order Comment: Name Collection Type:: Clean-Voided Midstream Performed By: #### A DDONUAPLUS, CUU, URTP, UEOS, UCREA, JON ####[facility] Leukocytes [#/area] in Urine sediment by Automated countOrdered By: Lynette Dumont on 02-23-2025 WBC Auto (Urine sed) [#/Area] Leukocytes [#/area] in Urine sediment by Automated count High 0-4 [facility] WBC Auto (Urine sed) [#/Area] 50-100 [HPF] High 0-4 [facility] Lipid Panelon 02-23-2025 LDL Cholesterol,Calculated 86 mg/dL Normal 0-100 [facility] Comment on above: Result Comment: LDL ATP III CLASSIFICATION LDL less than 100 mg/dL Optimal LDL 100-129 mg/dL Near or above optimal LDL 130-159 mg/dL Borderline high LDL 160-189 mg/dL High LDL greater than 189 mg/dL Very high Performed By: #### R ETIC, PTT, JOCELYN, LIPID, B12, FOL, A1C WTH eA, FE and TIBC, PT ####[address] Triglyceride w/Reflex 125 mg/dL Normal 0-149 [facility] Comment on above: Result Comment: TRIG ATP III CLASSIFICATION TRIG less than 150 mg/dL Normal TRIG 150-199 mg/dL Borderline high TRIG 200-500 mg/dL High TRIG greater than 500 mg/dL Very high Standard traceable to the Center for Disease Conrtrol and Prevention (CDC) test method. Performed By: #### R ETIC, PTT, JOCEYLN, LIPID, B12, FOL, A1C WTH eA, FE and TIBC, PT ####[address] VLDL CHOLESTEROL 25 mg/dL Normal [facility] Comment on above: Performed By: #### R ETIC, PTT, JOCELYN, LIPID, B12, FOL, A1C WTH eA, FE and TIBC, PT ####[id number] [facility] Magnesiumon 02-23-2025 Magnesium [Mass/Vol] 2.0 mg/dL Normal 1.9-2.7 [facility] Comment on above: Result Comment: PERF ORMED BY:[address] [address] [address] RICKJohanaCassieAMIIRV[place], [place] [phone] MEDICAL DIRECTORKEMAL ACKERMAN M.D. Performed By: #### M G, CMP, CBC ####[address] [address] [facility] Mucus [Presence] in Urine by AutomatedOrdered By: Lynette Dumont on 02-23-2025 Mucus Auto Ql (U) Mucus [Presence] in Urine by Automated [facility] Mucus Auto Ql (U) Rare [LPF] [facility] Nitrite Test strip Ql (U)Ord ered By: Lynette Dumont on 02-23-2025 Nitrite Ql (U) Nitrite [Presence] i n Urine by Test strip Negative [facility] Nitrite Ql (U) Negative Negative [facility] Parathyrin.intact [Mass/volu me] in Serum or PlasmaOrdered By: Becky Nash on 02-23-2025 Parathyrin.intact [Mass/Vol] Parathyrin.intact [Mass/volume] in Serum or Plasma High [facility] Parathyrin.intact [Mass/Vol] 265.7 pg/mL High [facility] Parathyroid Hormone Intacton 02-23-2025 Parathyroid Hormone Intact 265.7 pg/mL High [facility] Comment on above: Result Comment: PERF ORMED BY:[address] [address] [place], [place] [phone] MEDICAL DIRECTORKEMAL ACKERMAN M.D. Performed By: #### P TH, [id number] ####[address] [address] [facility] Partial Thromboplastin Timeo n 02-23-2025 aPTT Coag (Bld) [Time] 43.2 s High 25.1-36.5 [facility] Comment on above: Result Comment: A he matocrit value greater than 55% may lead to inaccurate results in coagulation testing. Patients having hematocrit values >55% require a special collection tube for coagulation studies. Please contact the laboratory at [phone] for redraw instructions.PERFORMED BY:[address] [address] [place], [place] [phone] MEDICAL DIRECTORKEMAL ACKERMAN M.D. Performed By: #### R ETIC, PTT, JOCELYN, LIPID, B12, FOL, A1C WTH eA, FE and TIBC, PT ####[address] [address] [place] Phosphoruson 02-23-2025 Phosphate [Mass/Vol] 12.2 mg/dL High 2.5-4.5 [facility] Comment on above: Order Comment: Comme nt add on to previous draw if possible Result Comment: PERF ORMED BY:[address] DIAZCassieAMIIRVINE, [place] [phone] MEDICAL DIRECTORKEMAL ACKERMAN M.D. Performed By: #### P HOS ####[address] [address] [facility] Protein Test strip (U) [Mass /Vol]Ordered By: Lynette Dumont on 02-23-2025 Protein (U) [Mass/Vol] Protein [Mass/vol ume] in Urine by Test strip High Negative [facility] Protein [Mass/volume] in Uri neOrdered By: Lynette Dumont on 02-23-2025 Protein (U) [Mass/Vol] Protein [Mass/vol ume] in Urine High 0-9 [facility] Protein (U) [Mass/Vol] 330 mg/dL High 0-9 [facility] Comment on above: Performed By: #### A DDONUAPLUS, CUU, URTP, UEOS, UCREA, JON ####[address] [address] [facility] Protein [Mass/volume] in Uri ne by Test stripOrdered By: Lynette Dumont on 02-23-2025 Protein (U) [Mass/Vol] 200 mg/dL High Negative [facility] Comment on above: Order Comment: Name Collection Type:: Clean-Voided Midstream Performed By: #### A DDONUAPLUS, CUU, URTP, UEOS, UCREA, JON ####[facility] [id number] [place] [id number] [facility] Prothrombin time (PT)Ordered By: Lynette Dumont on 02-23-2025 PT Coag (PPP) [Time] Prothrombin time (PT) High 9.0- 12.9 [facility] Comment on above: A hematocrit value g reater than 55% may lead to inaccurate results in coagulation testing. Patients having hematocrit values >55% require a special collection tube for coagulation studies. Please contact the laboratory at [phone] for redraw instructions. PT Coag (PPP) [Time] 15.0 s High 9.0-12.9 [facility] Comment on above: A hematocrit value g reater than 55% may lead to inaccurate results in coagulation testing. Patients having hematocrit values >55% require a special collection tube for coagulation studies. Please contact the laboratory at [phone] for redraw instructions. Result Comment: A he matocrit value greater than 55% may lead to inaccurate results in coagulation testing. Patients having hematocrit values >55% require a special collection tube for coagulation studies. Please contact the laboratory at [phone] for redraw instructions. Performed By: #### R ETIC, PTT, JOCELYN, LIPID, B12, FOL, A1C WTH eA, FE and TIBC, PT ####[facility] [place] [address] [facility] Reticulocyte Counton 025 Reticulocyte Number 0.030 10*6/uL Normal 0.024-0 .08 4 [facility] Comment on above: Result Comment: PERF ORMED BY:[address] [place], [place] [phone] MEDICAL DIRECTORKEMAL ACKERMAN M.D. Performed By: #### R ETIC, PTT, JOCELYN, LIPID, B12, FOL, A1C WTH eA, FE and TIBC, PT ####[facility] [id number] [place] [id number] [facility] Reticulocyte Percent 1.1 % Normal 0.5-1.5 [facility] Comment on above: Performed By: #### R ETIC, PTT, JOCELYN, LIPID, B12, FOL, A1C WTH eA, FE and TIBC, PT ####[facility] [address] [place] [id number] [facility] Reticulocytes [#/volume] in BloodOrdered By: Lynette Dumont on 02-23-2025 Reticulocytes (Bld) [#/Vol] Absolute reticulocyte count 0.024-0.08 4 [facility] Reticulocytes (Bld) [#/Vol] 0.030 10*6/uL 0.024-0.08 4 [facility] Reticulocytes/100 RBC Auto ( Bld)Ordered By: Lynette Dumont on 02-23-2025 Reticulocytes/100 RBC (Bld) Reticulocyte % auto 0.5-1.5 [facility] Reticulocytes/100 RBC (Bld) 1.1 % 0.5-1.5 [facility] Serum or plasma iron binding capacity measurement (mass/volume)Ordered By: Lynette Dumont on 02-23-2025 Iron binding capacity [Mass/Vol] Iron binding capacity [Mass/volume] in Serum or Plasma Low 255-450 [facility] Iron binding capacity [Mass/Vol] 164 ug/dL Low 255-450 [facility] Serum or plasma iron saturat ion measurement (mass fraction)Ordered By: Lynette Dumont on 02-23-2025 Iron saturation [Mass fraction] Iron saturation [Mass Fraction] in Serum or Plasma 20-50 [facility] Iron saturation [Mass fraction] 22.6 % 20-50 [facility] Serum or plasma total choles terol/high density lipoprotein (HDL) cholesterol mass ratOrdered By: Lynette Dumont on 02-23-2025 Cholesterol.total/Bonnie sterol in HDL [Mass ratio] Serum or plasma total cholesterol/high density lipoprotein (HDL) cholesterol mass rat <5.0 [facility] Cholesterol.total/Bonnie sterol in HDL [Mass ratio] 4.8 {ratio} Normal <5.0 [facility] Comment on above: Performed By: #### R ETIC, PTT, JOCELYN, LIPID, B12, FOL, A1C WTH eA, FE and TIBC, PT ####[place] [id number] [facility] Sodium [Moles/volume] in Uri neOrdered By: Lynette Dumont on 02-23-2025 Sodium (U) [Moles/Vol] Sodium [Moles/vol ume] in Urine [facility] Comment on above: No reference range e stablished Sodium (U) [Moles/Vol] 55 mmol/L Normal [facility] Comment on above: No reference range e stablished Result Comment: No r eference range establishedPERFORMED BY:[address] [place], [place] [phone] MEDICAL DIRECTORKEMAL ACKERMAN M.D. Performed By: #### A DDONUAPLUS, CUU, URTP, UEOS, UCREA, JON ####[place] [id number] [facility] Specific gravity Test strip (U) [Rel density]Ordered By: Lynette Dumont on 02-23-2025 Specific gravity (U) [Rel density] Specific gravity of Urine by Test strip 1.001-1.03 0 [facility] Specific gravity (U) [Rel density] 1.011 1.001-1.03 0 [facility] Transferrin [Mass/volume] in Serum or PlasmaOrdered By: Lynette Dumont on 02-23-2025 Transferrin [Mass/Vol] Transferrin [Mass /volume] in Serum or Plasma Low 203-362 [facility] Transferrin [Mass/Vol] 117 mg/dL Low 203-362 [facility] Comment on above: Performed By: #### R ETIC, PTT, JOCELYN, LIPID, B12, FOL, A1C WTH eA, FE and TIBC, PT ####[place] [id number] [facility] Triglyceride [Mass/volume] i n Serum or PlasmaOrdered By: Lynette Dumont on 02-23-2025 Triglyceride [Mass/Vol] Triglyceride [Mass/volume] in Serum or Plasma 0-149 [facility] Comment on above: TRIG ATP III CLASSIF ICATIONTRIG less than 150 mg/dL NormalTRIG 150-199 mg/dL Borderline highTRIG 200-500 mg/dL High TRIG greater than 500 mg/dL Very highStandard traceable to the Center for Disease Conrtrol and Prevention (CDC) test method. Triglyceride [Mass/Vol] 125 mg/dL 0-149 [facility] Comment on above: TRIG ATP III CLASSIF ICATIONTRIG less than 150 mg/dL NormalTRIG 150-199 mg/dL Borderline highTRIG 200-500 mg/dL High TRIG greater than 500 mg/dL Very highStandard traceable to the Center for Disease Conrtrol and Prevention (CDC) test method. US renal BIon 02-23-2025 US renal BI Normal [facility] Urine Cultureon 02-23-2025 Bacteria identified Cx Nom (U) Normal [facility] Comment on above: Performed By: #### A DDONUAPLUS, CUU, URTP, UEOS, UCREA, JON ####[facility] [id number] [place] [id number] [facility] Urine cultureOrdered By: Kaylan Dumont on 02-23-2025 Bacteria identified Cx Nom (U) Urine culture [facility] Bacteria identified Cx Nom (U) 2 Days [facility] Urobilinogen Test strip (U) [Mass/Vol]Ordered By: Lynette Dumont on 02-23-2025 Urobilinogen (U) [Mass/Vol] Urobilinogen [Mass/volume] in Urine by Test strip Normal [facility] Urobilinogen (U) [Mass/Vol] Normal mg/dL Normal [facility] Vitamin B12 ser/plasOrdered By: Lynette Dumont on 02-23-2025 Cobalamin (Vitamin B12) [Mass/Vol] Vitamin B12 ser/plas 180-4 [facility] Cobalamin (Vitamin B12) [Mass/Vol] 826 pg/mL Normal 180-914 [facility] Comment on above: Performed By: #### R ETIC, PTT, JOCELYN, LIPID, B12, FOL, A1C WTH eA, FE and TIBC, PT ####[facility] [id number] [place] [address] [facility] Vitamin D 25 Hydroxy Totalon 02-23-2025 Vitamin D 25 Hydroxy Total <7.0 Low 30-100 [facility] Comment on above: Result Comment: ELI MIN D STATUS 25([place])VITAMIN D RANGE (ng/mL) Deficient <20 Insufficient 20 to <30 Sufficient 30 to 100 Reference: Javid Bedolla Bischoff-Ferrari HA, et al. Evaluation,treatment, and prevention of vitamin D deficiency; an Endocrine Society clinical practice guideline. JCEM. 2010; 96(7):1911-.PERFORMED BY:[address] [place], [place] [phone] MEDICAL DIRECTORKEMAL ACKERMAN M.D. Performed By: #### P TH, [id number] ####[facility] [id number] [place] [address] [facility] Vitamin D+Metabolites [Mass/ volume] in Serum or PlasmaOrdered By: Becky Nash on 02-23-2025 Vitamin D+Metabolites [Mass/Vol] Vitamin D+Metabolites [Mass/volume] in Serum or Plasma Low 30-100 [facility] Comment on above: VITAMIN D STATUS 25( [place])VITAMIN D RANGE (ng/mL) Deficient <20 Insufficient 20 to <30Sufficient 30 to 100Reference: Javid Bedolla, Alon RENTERIA, et al. Evaluation,treatment, and prevention of vitamin D deficiency; an Endocrine Society clinical practice guideline. JCEM. 2010; 96(7):1911-30. Vitamin D+Metabolites [Mass/Vol] < 7.0 ng/mL Low 30-100 [facility] Comment on above: VITAMIN D STATUS 25( [place])VITAMIN D RANGE (ng/mL) Deficient <20 Insufficient 20 to <30Sufficient 30 to 100Reference: Javid Bedolla, Alon RENTERIA, et al. Evaluation,treatment, and prevention of vitamin D deficiency; an Endocrine Society clinical practice guideline. JCEM. 2010; 96(7):1911-30. Yeast.budding [Presence] in Urine by Computer assisted methodOrdered By: Lynette Dumont on 02-23-2025 Yeast.budding Computer assisted Ql (U) Yeast.budding [Presence] in Urine by Computer assisted method High None Seen [facility] Yeast.budding Computer assisted Ql (U) 1+ [HPF] High None Seen [facility] aPTT in Platelet poor plasma by Coagulation assayOrdered By: Lynette Dumont on 02-23-2025 aPTT Coag (PPP) [Time] Activated partial thromboplastin time (aPTT) in platelet poor plasma by coagulation a High 25.1-36.5 [facility] Comment on above: A hematocrit value g reater than 55% may lead to inaccurate results in coagulation testing. Patients having hematocrit values >55% require a special collection tube for coagulation studies. Please contact the laboratory at [phone] for redraw instructions. aPTT Coag (PPP) [Time] 43.2 s High 25.1-36.5 [facility] Comment on above: A hematocrit value g reater than 55% may lead to inaccurate results in coagulation testing. Patients having hematocrit values >55% require a special collection tube for coagulation studies. Please contact the laboratory at [phone] for redraw instructions. pH Test strip (U)Ordered By: Lynette Dumont on 02-23-2025 pH (U) pH of Urine by Test strip 5.0-9.0 [facility] pH of Urine by Test stripOrd ered By: Lynette Dumont on 02-23-2025 pH (U) 6.5 [pH] Normal 5.0-9.0 [facility] Comment on above: Order Comment: Name Collection Type:: Clean-Voided Midstream Performed By: #### A DDONUAPLUS, CUU, URTP, UEOS, UCREA, JON ####[facility] [id number] [place] [address] [facility] 36on 12-09-2023 36 Please let her know her kidney function improved some but is still abnormal. Follow-up with nephrology as planned and we can see if they are okay with her resuming lisinopril and Farxiga. Thank you! [facility] 36on 12-08-2023 36 Please see when she plans to have BMP done. Thank you [facility] 36on 12-03-2023 36 Did she get the foll ow-up BMP? [facility] Orders Onlyon 11-26-2023 Orders Only [id number] Juliann Roque A 1970 F Date Provider Department Center 11/26/2023 RAJENDRA WIGGINS MGEHAN Barry Family History Problem Relation Age of Onset COPD Mother Heart failure Mother Heart attack Mother's Brother Family Status - Relation Status Age at Mother Mother's Brother [facility] 36on 11-25-2023 36 Please let her know [...] see her sooner than later. Thank you! [facility] 37on 11-25-2023 37 *Will switch metopro lol for carvedilol 6.25mg twice daily *Have follow-up labs drawn *Establish care with nephrology [facility] Office Visiton 11-25-2023 Follow-up visit [id number] Juliann Roque A 1970 Date Provider Department Center 11/25/2023 JOSE F DILLARD Family History Problem Relation Age of Onset COPD Mother Heart failure Mother Heart attack Mother's Brother Family Status - Relation Status Age at Mother Mother's Brother Level of Service:48158 MT OFFICE/OUTPATIENT ESTABLISHED MOD MDM 30 MIN [facility] Telephoneon 11-25-2023 Telephone [id number] Juliann Roque A 1970 F Date Provider Department Center 11/25/2023 JOSE F DILLARD Family History Problem Relation Age of Onset COPD Mother Heart failure Mother Heart attack Mother's Brother Family Status - Relation Status Age at Mother Mother's Brother Normal [facility] ACID FAST SMEAR AND CXon Acid Fast Culture Negative Normal [facility] Comment on above: Result Comment: No a junior fast bacilli isolated after 6 weeks. Performed By: #### A FB ####[facility] [address] [place] [id number]. Kalie Bess Acid Fast Smear Negative Normal [facility] Comment on above: Performed By: #### A FB ####[facility] [address] [place] [address]Dr. Kalie Bess AFB Specimen Processing Direct Inoculation Normal [facility] Comment on above: Performed By: #### A FB ####[facility] [address] [place], [place] [address]Dr. Kalie Bess PRBC LEUKOREDUCEDon 12-31-19 23 PRBC LEUKOREDUCED Normal [facility] Comment on above: Performed By: #### P RBC ####[facility] [address] [place], [place] [id number]. Kalie Bess FUNGAL CULTUREon 12-29-2022 Fungus (Mycology) Culture Final report Normal [facility] Comment on above: Performed By: #### C XFUN ####[facility] [address] [place], [place] [address]Dr. Kalie Bess Fungus Stain Final report Normal [facility] Comment on above: Performed By: #### C XFUN ####[facility] [address] [place], [place] [address]Dr. Kalie Bess Result 1 Comment Normal [facility] Comment on above: Result Comment: GILMA/ Calcofluor preparation: no fungus observed. Performed By: #### C XFUN ####[facility] [address] [place], [place] [address]Dr. Kalie Bess Result Comment: No y east or mold isolated after 4 weeks. C. DIFF PCRon 12-26-2022 C. DIFFICILE PCR Negative Normal NEGATIVE [facility] Comment on above: Performed By: #### C DIFPOC ####[facility] [address] [place] [id number]. Kalie Bess CBC AUTO DIFFon 11-30-2022 BASO # 0.1 103/ul Normal 0.0-0.1 [facility] Comment on above: Performed By: #### C BC ####[facility] [address] [place] [id number]. Kalie Shahriar Basophils/100 WBC (Bld) 0.4 % Normal 0.2-2.0 [facility] Comment on above: Performed By: #### C BC ####[facility] [address] [place] [address]Dr. Kalie Bess EO # 0.4 103/ul Normal 0.0-0.7 [facility] Comment on above: Performed By: #### C BC ####[facility] [address] [place] [address]Dr. Shayyroxie Bess Eosinophils/100 WBC (Bld) 2.5 % Normal 0.9-7.0 [facility] Comment on above: Performed By: #### C BC ####[facility] [address] [place], [place] [address]Dr. Kalie Bess Erythrocyte distribution width (RBC) [Ratio] 14.1 % Normal 11.0-15.0 [facility] Comment on above: Performed By: #### C BC ####[facility] [address] [place], [place] [address]Dr. Kalie Bess Hematocrit (Bld) [Volume fraction] 24.3 % Critically low 36.0-48.0 [facility] Comment on above: Performed By: #### C BC ####[facility] [address] [place] [address]Dr. Kalie Bess Hemoglobin (Bld) [Mass/Vol] 7.3 g/dL Critically low 12.0-16.0 [facility] Comment on above: Performed By: #### C BC ####[facility] [address] [place], [place] [address]Dr. Kalie Bess IG # 0.29 10e3/ul Critically high 0.00-0.03 [facility] Comment on above: Performed By: #### C BC ####[facility] [address] [place] [id number]. Shayyroxie Bess IG % 1.9 % Critically high 0.0-0.5 [facility] Comment on above: Performed By: #### C BC ####[facility] [address] [place] [id number]. Kalie Shahriar LYMPH # 3.6 103/ul Normal 1.2-3.8 [facility] Comment on above: Performed By: #### C BC ####[facility] [address] [place] [id number] Shayyroxie Bess Lymphocytes/100 WBC (Bld) 23.1 % Normal 20.5-60.0 [facility] Comment on above: Performed By: #### C BC ####[facility] [address] [place] [address]DrCassie Bess MANUAL DIFF REQ NO Normal [facility] Comment on above: Performed By: #### C BC ####[facility] [address] [place] [id number]. Kalie Shahriar MCH (RBC) [Entitic mass] 28.9 pg Normal 26.7-34.0 [facility] Comment on above: Performed By: #### C BC ####[facility] [address] [place] [id number]. Kalie Shahriar MCHC (RBC) [Mass/Vol] 30.0 g/dL Normal 29.9-35.2 [facility] Comment on above: Performed By: #### C BC ####[facility] [address] [place] [id number] Shayyroxie Bess MCV (RBC) [Entitic vol] 96.0 fL Normal 81.0-99.0 [facility] Comment on above: Performed By: #### C BC ####[facility] [address] [place] [id number] Bess MONO # 0.8 103/ul Normal 0.3-0.8 [facility] Comment on above: Performed By: #### C BC ####[facility] [address] [place] [id number]. Kalie Bess Monocytes/100 WBC (Bld) 5.0 % Normal 1.7-12.0 [facility] Comment on above: Performed By: #### C BC ####[facility] [address] [place] [id number]. Kalie Bess NEUT # 10.5 103/ul Critically high 1.4-6.5 [facility] Comment on above: Performed By: #### C BC ####[facility] [address] [place] [id number]. Kalie Bess Neutrophils/100 WBC (Bld) 67.1 % Normal 43.0-75.0 [facility] Comment on above: Performed By: #### C BC ####[facility] [address] [place] [id number]. Kalie Bess Platelet mean volume (Bld) [Entitic vol] 10.8 fL Normal 9.5-13.5 [facility] Comment on above: Performed By: #### C BC ####[facility] [address] [place] [id number]. Kalie Bess PLT 272 103/ul Normal 150-450 [facility] Comment on above: Performed By: #### C BC ####[facility] [address]it[address] [place] [id number]. Kalie Bess RBC 2.53 106/ul Critically low 4.20-5.40 [facility] Comment on above: Performed By: #### C BC ####[facility] [address] [place] [id number]. Kalie Bess WBC 15.7 103/ul Critically high 4.0-11.0 [facility] Comment on above: Performed By: #### C BC ####[facility] [address] [place] [id number]. Kalie Bess CRPon 11-30-2022 CRP 4.9 mg/dL Critically high <=1.0 [facility] Comment on above: Performed By: #### C RP, CMP ####[facility] [address] [place] [address]Dr. Kalie Bess POINT OF CARE GLUCOSEon Glucose [Mass/Vol] 295 mg/dL Critically high 74-106 [facility] Comment on above: Performed By: #### P OCGLUC ####[facility] [address] [place] [address]Dr. Kalie Bess Glucose [Mass/Vol] 166 mg/dL Critically high 74-106 [facility] Comment on above: Performed By: #### P OCGLUC ####[facility] [address] [place] [address]Dr. Kalie Bess PROF 14(COMP METB)on 023 Albumin [Mass/Vol] 1.6 g/dL Critically low 3.4-5.0 [facility] Comment on above: Performed By: #### C RP, CMP ####[facility] [address] [place] [address]Dr. Kalie Bess Albumin/Globulin [Mass ratio] 0.4 {ratio} Normal [facility] Comment on above: Performed By: #### C RP, CMP ####[facility] [address] [place] [address]Dr. Kalie Bess ALP [Catalytic activity/Vol] 115 U/L Normal 46-116 [facility] Comment on above: Performed By: #### C RP, CMP ####[facility] [address] [place] [address]Dr. Kalie Bess ALT [Catalytic activity/Vol] 21 U/L Normal 14-59 [facility] Comment on above: Performed By: #### C RP, CMP ####[facility] [address] [place] [address]Dr. Kalie Bess Anion gap [Moles/Vol] 10.2 mmol/L Normal [facility] Comment on above: Performed By: #### C RP, CMP ####[facility] [address] [place], [place] [address]Dr. Kalie Bess AST [Catalytic activity/Vol] 15 U/L Normal 15-37 [facility] Comment on above: Performed By: #### C RP, CMP ####[facility] [address] [place] [address]Dr. Kalie Bess Bilirubin [Mass/Vol] 0.1 mg/dL Critically low 0.2-1.0 [facility] Comment on above: Performed By: #### C RP, CMP ####[facility] [address] [place], [place] [address]Dr. Kalie Bess Calcium [Mass/Vol] 8.1 mg/dL Critically low 8.5-10.1 [facility] Comment on above: Performed By: #### C RP, CMP ####[facility] [address] [place], [place] [address]Dr. Kalie Bess Chloride [Moles/Vol] 104 mmol/L Normal 98-107 [facility] Comment on above: Performed By: #### C RP, CMP ####[facility] [address] [place], [place] [address]Dr. Kalie Bess CO2 [Moles/Vol] 26.1 mmol/L Normal 21.0-32.0 [facility] Comment on above: Performed By: #### C RP, CMP ####[facility] [address] [place], [place] [address]Dr. Kalie Bess Creatinine [Mass/Vol] 1.88 mg/dL Critically high 0.55-1.02 [facility] Comment on above: Performed By: #### C RP, CMP ####[facility] [address] [place], [place] [address]Dr. Kalie Bess EGFR-AF PAPUA [place] 34 mL/min/1.73m2 Critically low >=60 [facility] Comment on above: Performed By: #### C RP, CMP ####[facility] [address] [place], [place] [address]Dr. Kalie Bess EGFR-NON AF PAPUA [place] 28 mL/min/1.73m2 Critically low >=60 [facility] Comment on above: Performed By: #### C RP, CMP ####[facility] [address] [place] [id number]. Kalie Bess Globulin (S) [Mass/Vol] 4.5 g/dL Normal [facility] Comment on above: Performed By: #### C RP, CMP ####[facility] [address]bipq[address] [place] [phone]. Kalie Bess Glucose [Mass/Vol] 171 mg/dL Critically high 74-106 [facility] Comment on above: Performed By: #### C RP, CMP ####[facility] [address]gs[address] [place] [address]Dr. Kalie Bess Potassium [Moles/Vol] 4.3 mmol/L Normal 3.5-5.1 [facility] Comment on above: Performed By: #### C RP, CMP ####[facility] [address]vbnww[address] [place] [address]Dr. Kalie Bess Protein [Mass/Vol] 6.1 g/dL Critically low 6.4-8.2 [facility] Comment on above: Performed By: #### C RP, CMP ####[facility] [address] [place], [place] [address]Dr. Kalie Bess Sodium [Moles/Vol] 136 mmol/L Normal 136-145 [facility] Comment on above: Performed By: #### C RP, CMP ####[facility] [address] [place] [address]Dr. Kalie Bess Urea nitrogen [Mass/Vol] 17.0 mg/dL Normal 7.0-18.0 [facility] Comment on above: Performed By: #### C RP, CMP ####[facility] [address]vfo[address] [place] [address]Dr. Kalie Bess Urea nitrogen/Creatinine [Mass ratio] 9.0 mg/mg Normal [facility] Comment on above: Performed By: #### C RP, CMP ####[facility] A[address]elhpjsav[address] [place] [address]Dr. Kalie Shahriar SED RATE [facility] 2022 SED RATE 77 mm/hr Critically high <=30 [facility] Comment on above: Performed By: #### S EDR ####[facility] [address] [place] [address]Dr. Kalie Bess CBC AUTO DIFFon 11-29-2022 BASO # 0.1 103/ul Normal 0.0-0.1 [facility] Comment on above: Performed By: #### C BC ####[facility] [address]itwn[address] [place] [address]Dr. Kalie Bess Basophils/100 WBC (Bld) 0.3 % Normal 0.2-2.0 [facility] Comment on above: Performed By: #### C BC ####[facility] [address] [place], [place] [address]Dr. Kalie Bess EO # 0.4 103/ul Normal 0.0-0.7 [facility] Comment on above: Performed By: #### C BC ####[facility] [address] [place], [place] [address]Dr. Kalie Bess Eosinophils/100 WBC (Bld) 2.3 % Normal 0.9-7.0 [facility] Comment on above: Performed By: #### C BC ####[facility] [address] [place], [place] [address]Dr. Kalie Bess Erythrocyte distribution width (RBC) [Ratio] 14.0 % Normal 11.0-15.0 [facility] Comment on above: Performed By: #### C BC ####[facility] [address] [place], [place] [address]Dr. Kalie Bess Hematocrit (Bld) [Volume fraction] 24.7 % Critically low 36.0-48.0 [facility] Comment on above: Performed By: #### C BC ####[facility] [address] [place], [place] [address]Dr. Kalie Bess Hemoglobin (Bld) [Mass/Vol] 7.5 g/dL Critically low 12.0-16.0 [facility] Comment on above: Performed By: #### C BC ####[facility] [address] [place], [place] [address]Dr. Kalie Bess IG # 0.37 10e3/ul Critically high 0.00-0.03 [facility] Comment on above: Performed By: #### C BC ####[facility] [address]awt[address] [place] [address]DrCassie Lucasroxie Shahriar IG % 2.1 % Critically high 0.0-0.5 [facility] Comment on above: Performed By: #### C BC ####[facility] [address] [place] [address]DrCassie Bess LYMPH # 3.3 103/ul Normal 1.2-3.8 [facility] Comment on above: Performed By: #### C BC ####[facility] [address]xboobd35[address] [place] [address]DrCassie Bess Lymphocytes/100 WBC (Bld) 18.8 % Critically low 20.5-60.0 [facility] Comment on above: Performed By: #### C BC ####[facility] [address] [place], [place] [address]DrCassie Bess MANUAL DIFF REQ NO Normal [facility] Comment on above: Performed By: #### C BC ####[facility] [address] [place], [place] [address]DrCassie Lucasroxie Shahriar MCH (RBC) [Entitic mass] 28.8 pg Normal 26.7-34.0 [facility] Comment on above: Performed By: #### C BC ####[facility] [address]fpyt[address] [place] [address]DrCassie Bess MCHC (RBC) [Mass/Vol] 30.4 g/dL Normal 29.9-35.2 [facility] Comment on above: Performed By: #### C BC ####[facility] [address] [place], [place] [address]DrCassie Bess MCV (RBC) [Entitic vol] 95.0 fL Normal 81.0-99.0 [facility] Comment on above: Performed By: #### C BC ####[facility] [address] [place], [place] [address]DrCassie Bess MONO # 0.9 103/ul Critically high 0.3-0.8 [facility] Comment on above: Performed By: #### C BC ####[facility] [address]wtmq[address] [place] [id number]. Kalie Bess Monocytes/100 WBC (Bld) 5.1 % Normal 1.7-12.0 [facility] Comment on above: Performed By: #### C BC ####[facility] [address]trqfr[address] [place] [address]Dr. Kalie Bess NEUT # 12.3 103/ul Critically high 1.4-6.5 [facility] Comment on above: Performed By: #### C BC ####[facility] [address] [place], [place] [address]Dr. Kalie Bess Neutrophils/100 WBC (Bld) 71.4 % Normal 43.0-75.0 [facility] Comment on above: Performed By: #### C BC ####[facility] [address]um[address] [place], [place] [address]Dr. Kalie Bess Platelet mean volume (Bld) [Entitic vol] 10.7 fL Normal 9.5-13.5 [facility] Comment on above: Performed By: #### C BC ####[facility] [address] [place], [place] [address]Dr. Kalie Bess PLT 268 103/ul Normal 150-450 [facility] Comment on above: Performed By: #### C BC ####[facility] [address] [place], [place] [address]Dr. Kalie Bess RBC 2.60 106/ul Critically low 4.20-5.40 [facility] Comment on above: Performed By: #### C BC ####[facility] [address] [place], [place] [address]Dr. Kalie Bess WBC 17.3 103/ul Critically high 4.0-11.0 [facility] Comment on above: Performed By: #### C BC ####[facility] [address]im[address] [place], [place] [address]DrCassie Kalie Shahriar CBC W MANUAL DIFFon 11-29-19 23 ATYPICAL LYMPH # 0.00 103/ul Normal [facility] Comment on above: Performed By: #### C NANCY ####[facility] [address]xexlb[address] [place] [address]Dr. Kalie Bess ATYPICAL LYMPH % 0 % Normal [facility] Comment on above: Performed By: #### C NANCY ####[facility] [address] [place] [id number]. Kalie Bess BAND # 0.2 103/ul Normal 0.0-0.3 [facility] Comment on above: Performed By: #### C BCGABRIELLA ####[facility] [address]ym[address]kz[address] [place] [address]Dr. Shayylan Bess BAND % 1 % Normal 0-5 [facility] Comment on above: Performed By: #### C NANCY ####[facility] [address] [place], [place] [address]Dr. Kalie Bess BASOM # 0.00 103/ul Normal 0.00-0.10 [facility] Comment on above: Performed By: #### C NANCY ####[facility] [address] [place], [place] [address]Dr. Kalie Bess BASOM % 0.0 % Critically low 0.2-2.0 [facility] Comment on above: Performed By: #### C NANCY ####[facility] [address]kqji[address] [place] [address]Dr. Kalie Bess BLAST # Normal [facility] Comment on above: Performed By: #### C NANCY ####[facility] Movugkhyyi[address] [place] [address]Dr. Kalie Bess BLAST % Normal [facility] Comment on above: Performed By: #### C NANCY ####[facility] [address] [place], [place] [address]Dr. Kalie Bess CORRECTED WBC Normal 4.0-11.0 [facility] Comment on above: Performed By: #### C NANCY ####[facility] Hsrdxmyr[address] [place], [place] [address]DrCassie Bess EOS # 0.78 103/ul Critically high 0.00-0.70 [facility] Comment on above: Performed By: #### C NANCY ####[facility] Dnbdrojxsn5291 [place], [place] [address]Ii. Kalie Bess EOS% 4.0 % Normal 0.9-7.0 The [facility] Comment on above: Performed By: #### C NANCY ####[facility] Qdtnmelpim4923 [place] [id number]. Kalie Bess HCT 24.8 % Critically low 36.0-48.0 [facility] Comment on above: Performed By: #### C NANCY ####[facility] Avwsnijpkz4869 [place] [id number]. Kalie Bess HGB 7.4 g/dl Critically low 12.0-16.0 [facility] Comment on above: Performed By: #### C NANCY ####[facility] Ulbseluwed[address] [place], [place] [id number]. Kalie Bess HYPOCHROMASIA 1+ Normal The [facility] Comment on above: Performed By: #### C NANCY ####[facility] Cqtuxaxtiy7986 [place] [id number]. Kalie Bess LYMPHM # 1.94 103/ul Normal 1.20-3.80 The [facility] Comment on above: Performed By: #### C NANCY ####[facility] Ubxneyblhe9402 [place] [id number]. Kalie Bess LYMPHM% 10.0 % Critically low 20.5-60.0 [facility] Comment on above: Performed By: #### C NANCY ####[facility] Uufjrkknwa5217 [place] [id number]. Kalie Bess MCH 28.8 pg Normal 26.7-34.0 The [facility] Comment on above: Performed By: #### C NANCY ####[facility] Prkkructzv4396 [place] [id number]. Kalie Bess MCHC 29.8 g/dl Critically low 29.9-35.2 [facility] Comment on above: Performed By: #### C NANCY ####[facility] Juyftvojmb6924 [place] [address]Dr. Kalie Bess MCV 96.5 fL Normal 81.0-99.0 The [facility] Comment on above: Performed By: #### C NANCY ####[facility] Xwlzvygiuv9184 [place] [id number]. Kalie Bess METAMYELOCYTE # Normal The [facility] Comment on above: Performed By: #### C NANCY ####[facility] Eipvvyjhyg2916 [place] [address]Dr. Kalie Bess METAMYELOCYTE % Normal The [facility] Comment on above: Performed By: #### C NANCY ####[facility] Lljjmdnaya4949 [place] [address]Dr. Kalie Bess MICROCYTOSIS SLIGHT Normal The [facility] Comment on above: Performed By: #### Marisela CRUZ ####[facility] Goopqsphjo6[address] [place], [place] [address]Dr. Kalie Bess MONOM# 0.97 103/ul Critically high 0.30-0.80 [facility] Comment on above: Performed By: #### Marisela CRUZ ####[facility] Xjqxaplqof[address] [place], [place] [address]Dr. Kalie Bess MONOM% 5.0 % Normal 1.7-12.0 The [facility] Comment on above: Performed By: #### Marisela CRUZ ####[facility] Qotndykmgm[address] [place], [place] [address]Dr. Kalie Bess MPV 10.9 fL Normal 9.5-13.5 The [facility] Comment on above: Performed By: #### Marisela CRUZ ####[facility] Pkprmczjtj[address] [place], [place] [address]Dr. Kalie Bess MYELOCYTE # Normal The [facility] Comment on above: Performed By: #### Marisela CRUZ ####[facility] Ulipxjpobj[address] [place], [place] [address]Dr. Kalie Bess MYELOCYTE % Normal The [facility] Comment on above: Performed By: #### C NANCY ####[facility] Wyvkbhqybf2057 [place], [place] [address]Zx. Kalie Bess NRBC Normal The [facility] Comment on above: Performed By: #### C NANCY ####[facility] Twwzatmuod2773 [place] [id number]. Kalie Bess PLT 271 103/ul Normal 150-450 The [facility] Comment on above: Performed By: #### C NANCY ####[facility] Wwbwgbinrh5077 [place] [id number]. Kalie Bess RBC 2.57 106/ul Critically low 4.20-5.40 The [facility] Comment on above: Performed By: #### C NANCY ####[facility] Qltvrnymbj0335 [place] [id number]. Kalie Bess RDW 14.1 % Normal 11.0-15.0 [facility] Comment on above: Performed By: #### Marisela CRUZ ####[facility] Daeohfcmvu0579 [place] [id number]. Kalie Bess SEG # 15.52 103/ul Critically high 1.40-6.50 [facility] Comment on above: Performed By: #### Marisela CRUZ ####[facility] Jqojzsqatm8770 [place] [id number]. Kalie Bess SEG % 80.0 % Critically high 43.0-75.0 The [facility] Comment on above: Performed By: #### Marisela CRUZ ####[facility] Wfenwzhdcd8773 [place] [id number]. Kalie Bess STOMATOCYTES SLIGHT Normal The [facility] Comment on above: Performed By: #### C NANCY ####[facility] Jjotvtgbqm8438 [place] [id number]. Kalie Bess WBC 19.4 103/ul Critically high 4.0-11.0 [facility] Comment on above: Performed By: #### Marisela CRUZ ####[facility] Monmxqonfc7184 [place] [id number]. Kalie Bess CRPon 11-29-2022 CRP 5.7 mg/dL Critically high <=1.0 [facility] Comment on above: Performed By: #### C MP, CRP ####[facility] Xonvuzhcog7407 [place] [address]Dr. Kalie Bess POINT OF CARE GLUCOSEon Glucose [Mass/Vol] 225 mg/dL Critically high 74-106 [facility] Comment on above: Performed By: #### P OCGLUC ####[facility] Osrneodprx9821 [place] [address]Dr. Kalie Bess Glucose [Mass/Vol] 144 mg/dL Critically high 74-106 [facility] Comment on above: Performed By: #### P OCGLUC ####[facility] Fqgyzmhwht0749 [place] [address]Dr. Kalie Bess Glucose [Mass/Vol] 243 mg/dL Critically high 74-106 [facility] Comment on above: Performed By: #### P OCGLUC ####[facility] Amalnlglnd8918 [place] [address]Dr. Kalie Bess Glucose [Mass/Vol] 214 mg/dL Critically high 74-106 [facility] Comment on above: Performed By: #### P OCGLUC ####[facility] Ylhaslcllv8325 [place] [address]Dr. Kalie Shahriar PROF 14(COMP METB)on 023 Albumin [Mass/Vol] 1.5 g/dL Critically low 3.4-5.0 [facility] Comment on above: Performed By: #### C MP, CRP ####[facility] Rlgxnkajmc8523 [place] [address]Dr. Kalie Shahriar Albumin/Globulin [Mass ratio] 0.4 {ratio} Normal [facility] Comment on above: Performed By: #### C MP, CRP ####[facility] Uecxpsjmzg3620 [place] [address]Dr. Kalie Bess ALP [Catalytic activity/Vol] 117 U/L Critically high 46-116 [facility] Comment on above: Performed By: #### C MP, CRP ####[facility] Tviwocacux1885 [place] [id number]. Kalie Bess ALT [Catalytic activity/Vol] 21 U/L Normal 14-59 The [facility] Comment on above: Performed By: #### C MP, CRP ####[facility] Hyemnmnskx8619 [place] [address]Dr. Kalie Bess Anion gap [Moles/Vol] 9.7 mmol/L Normal [facility] Comment on above: Performed By: #### C MP, CRP ####[facility] Dazoqacedg[address] [place], [place] [address]Dr. Kalie Bess AST [Catalytic activity/Vol] 16 U/L Normal 15-37 The [facility] Comment on above: Performed By: #### C MP, CRP ####[facility] Qofmcffctz[address] [place], [place] [address]Dr. Kalie Bess Bilirubin [Mass/Vol] 0.2 mg/dL Normal 0.2-1.0 The [facility] Comment on above: Performed By: #### C MP, CRP ####[facility] Tiwndfizce[address] [place], [place] [address]Dr. Kalie Bess Calcium [Mass/Vol] 7.8 mg/dL Critically low 8.5-10.1 [facility] Comment on above: Performed By: #### C MP, CRP ####[facility] Txapqgwmdw[address] [place], [place] [address]Dr. Kalie Bess Chloride [Moles/Vol] 102 mmol/L Normal 98-107 The [facility] Comment on above: Performed By: #### C MP, CRP ####[facility] Crsycmvkhg8280 [place] [address]Dr. Kalie Bess CO2 [Moles/Vol] 28.4 mmol/L Normal 21.0-32.0 [facility] Comment on above: Performed By: #### C MP, CRP ####[facility] Tflbtkwcez[address] [place], [place] [address]Dr. Kalie Bess Creatinine [Mass/Vol] 1.85 mg/dL Critically high 0.55-1.02 [facility] Comment on above: Performed By: #### C MP, CRP ####[facility] Xbymtbdmrq0198 [place] [id number]. Kalie Bess EGFR-AF PAPUA NEW GUINEAN 35 mL/min/1.73m2 Critically low >=60 [facility] Comment on above: Performed By: #### C MP, CRP ####[facility] Kvbwtgaplm0200 [place] [id number]. Kalie Bess EGFR-NON AF PAPUA NEW GUINEAN 29 mL/min/1.73m2 Critically low >=60 [facility] Comment on above: Performed By: #### C MP, CRP ####[facility] Wrvkxxoazw7739 [place] [id number]. Kalie Shahriar Globulin (S) [Mass/Vol] 4.2 g/dL Normal [facility] Comment on above: Performed By: #### C MP, CRP ####[facility] Awpuyiyczg0917 [place] [address]Dr. Kalie Bess Glucose [Mass/Vol] 250 mg/dL Critically high 74-106 [facility] Comment on above: Performed By: #### C MP, CRP ####[facility] Dmdyzdyrqe0516 [place] [address]Dr. Kalie Shahriar Potassium [Moles/Vol] 4.1 mmol/L Normal 3.5-5.1 [facility] Comment on above: Performed By: #### C MP, CRP ####[facility] Njopixbhai0764 [place] [address]Dr. Kalie Shahriar Protein [Mass/Vol] 5.7 g/dL Critically low 6.4-8.2 [facility] Comment on above: Performed By: #### C MP, CRP ####[facility] Mbjjcschwq0821 [place] [address]Dr. Kalie Bess Sodium [Moles/Vol] 136 mmol/L Normal 136-145 [facility] Comment on above: Performed By: #### C MP, CRP ####[facility] Ehlsjbzhfb9882 [place] [address]Dr. Kalie Shahriar Urea nitrogen [Mass/Vol] 17.0 mg/dL Normal 7.0-18.0 [facility] Comment on above: Performed By: #### C MP, CRP ####[facility] Yndqzghnlv[address] [place], [place] [address]Dr. Kalie Bess Urea nitrogen/Creatinine [Mass ratio] 9.2 mg/mg Normal The [facility] Comment on above: Performed By: #### C MP, CRP ####[facility] Tocqrpgfga[address] [place], [place] [address]Dr. Kalie Bess SED RATE WESTERGRENon 2022 SED RATE 63 mm/hr Critically high <=30 The [facility] Comment on above: Performed By: #### S EDR ####[facility] Htiykgvwig[address] [place], [place] [address]Dr. Kalie Bess TYPE AND SCREENon 11-29-2022 TYPE AND SCREEN Negative Normal [facility] Comment on above: Performed By: #### T NS ####[facility] Muovmpszgi[address] [place], [place] [address]Dr. Kalie Bess CBC W MANUAL DIFFon 11-28-19 23 ANISOCYTOSIS SLIGHT Normal The [facility] Comment on above: Performed By: #### C BCMAN ####[facility] Bxyvsthhzs0[address] [place], [place] [address]Dr. Kalie Bess ATYPICAL LYMPH # 0.37 103/ul Normal The [facility] Comment on above: Performed By: #### C BCMAN ####[facility] Tkwxrxsjlp[address] [place], [place] [address]Dr. Kalie Bess ATYPICAL LYMPH % 2 % Normal [facility] Comment on above: Performed By: #### C BCMAN ####[facility] Ygmbzorgks4[address] [place], [place] [address]Dr. Kalie Bess BAND # 0.6 103/ul Critically high 0.0-0.3 [facility] Comment on above: Performed By: #### C BCMAN ####[facility] Yjqadxjzvq7353 [place] [address]Dr. Kalie Bess BAND % 3 % Normal 0-5 The [facility] Comment on above: Performed By: #### C BCMAN ####[facility] Kzbjiwlrus2436 [place] [id number]. Kalie Bess BASOM # 0.00 103/ul Normal 0.00-0.10 The [facility] Comment on above: Performed By: #### C BCMAN ####[facility] Hwpjpxgloh8462 [place] [id number]. Kalie Bess BASOM % 0.0 % Critically low 0.2-2.0 [facility] Comment on above: Performed By: #### C BCMAN ####[facility] Gfltczhuig9748 [place] [phone]. Kalie Bess BLAST # Normal [facility] Comment on above: Performed By: #### C BCGABRIELLA ####[facility] Ntmvkajohf5897 [place] [address]Dr. Kalie Bess BLAST % Normal The [facility] Comment on above: Performed By: #### C NANCY ####[facility] Zudffnmgmz[address] [place], [place] [address]Dr. Kalie Bess CORRECTED WBC Normal 4.0-11.0 [facility] Comment on above: Performed By: #### C BCGABRIELLA ####[facility] Qbufnyncuf0483 [place] [address]Dr. Kalie Bess EOS # 0.56 103/ul Normal 0.00-0.70 The [facility] Comment on above: Performed By: #### C BCGABRIELLA ####[facility] Isfddsatwv6459 [place] [address]Dr. Kalie Bess EOS% 3.0 % Normal 0.9-7.0 The [facility] Comment on above: Performed By: #### C BCGABRIELLA ####[facility] Yyuqggxjjz6984 [place] [id number]. Kalie Bess HCT 27.8 % Critically low 36.0-48.0 [facility] Comment on above: Performed By: #### C BCGABRIELLA ####[facility] Efddvwltqr6393 [place] [address]Dr. Kalie Bess HGB 8.9 g/dl Critically low 12.0-16.0 [facility] Comment on above: Performed By: #### C NANCY ####[facility] Uirovjzbid2034 [place], [place] [address]Tm. Kalie Bess HYPOCHROMASIA 1+ Normal [facility] Comment on above: Performed By: #### C NANCY ####[facility] Sfwxehortl2606 [place], [place] [address]Te. Kalie Bess LYMPHM # 2.99 103/ul Normal 1.20-3.80 [facility] Comment on above: Performed By: #### C NANCY ####[facility] Dhealsidyy5554 [place] [id number]. Kalie Bess LYMPHM% 16.0 % Critically low 20.5-60.0 [facility] Comment on above: Performed By: #### C NANCY ####[facility] Vhuxmnngwy4151 [place] [id number]. Kalie Bess MCH 28.8 pg Normal 26.7-34.0 [facility] Comment on above: Performed By: #### Marisela CRUZ ####[facility] Wayuemvesp4930 [place] [id number]. Kalie Bess MCHC 32.0 g/dl Normal 29.9-35.2 The [facility] Comment on above: Performed By: #### C NANCY ####[facility] Hcmrhjfcwa0973 [place] [id number]. Kalie Bess MCV 90.0 fL Normal 81.0-99.0 The [facility] Comment on above: Performed By: #### Marisela CRUZ ####[facility] Fotacbunis5220 [place] [id number]. Kalie Bess METAMYELOCYTE # Normal The [facility] Comment on above: Performed By: #### Marisela CRUZ ####[facility] Tihmcgulzf0372 [place] [id number]. Kalie Bess METAMYELOCYTE % Normal [facility] Comment on above: Performed By: #### Marisela CRUZ ####[facility] Owcfebawlx8980 [place] [id number]. Kalie Bess MONOM# 0.94 103/ul Critically high 0.30-0.80 [facility] Comment on above: Performed By: #### C NANCY ####[facility] Jcxqniqgya9404 [place] [id number]. Kalie Bess MONOM% 5.0 % Normal 1.7-12.0 [facility] Comment on above: Performed By: #### C NANCY ####[facility] Buarvjumki8508 [place] [id number]. Kalie Bess MPV 10.4 fL Normal 9.5-13.5 [facility] Comment on above: Performed By: #### C NANCY ####[facility] Bgdxcmjpab9829 [place] [address]Dr. Kalie Shahriar MYELOCYTE # Normal [facility] Comment on above: Performed By: #### C NANCY ####[facility] Ppoqzmdeap[address] [place], [place] [address]Dr. Kalie Bess MYELOCYTE % Normal The [facility] Comment on above: Performed By: #### C NANCY ####[facility] Chblcrkpib0948 [place] [address]Dr. Shayyroxie Bess NRBC Normal The [facility] Comment on above: Performed By: #### C NANCY ####[facility] Iwpuhtnrnb6137 [place] [id number]. Kalie Shahriar PLT 285 103/ul Normal 150-450 The [facility] Comment on above: Performed By: #### C NANCY ####[facility] Fqssnbsdwx0511 [place] [id number]. Kalie Bess RBC 3.09 106/ul Critically low 4.20-5.40 [facility] Comment on above: Performed By: #### C NANCY ####[facility] Stfuodbqtc8105 [place] [address]Dr. Shayyroxie Shahriar RDW 13.6 % Normal 11.0-15.0 [facility] Comment on above: Performed By: #### C NANCY ####[facility] Hijrmmfkmn2612 [place] [address]Dr. Kalie Bess SEG # 13.28 103/ul Critically high 1.40-6.50 [facility] Comment on above: Performed By: #### C BCMAN ####[facility] Wtprgpffqe3195 [place] [id number]. Kalie Bess SEG % 71.0 % Normal 43.0-75.0 [facility] Comment on above: Performed By: #### C BCMAN ####[facility] Bpcrzbkoww6291 [place] [id number]. Kalie Bess WBC 18.7 103/ul Critically high 4.0-11.0 [facility] Comment on above: Performed By: #### C BCMAN ####[facility] [address]rojhsqu[address] [place], [place] [address]Dr. Kalie Bess CRPon 11-28-2022 CRP 4.6 mg/dL Critically high <=1.0 [facility] Comment on above: Performed By: #### C MP, CRP ####[facility] Lkvksihdjt[address] [place], [place] [address]Dr. Kalie Bess CULTURE ANAEROBICon 11-28-19 23 CULTURE ANAEROBIC Culture Observations : NO GROWTH OF ANAEROBES AT 72 HOURS. Normal [facility] Comment on above: Performed By: #### A NACX ####[facility] Ocbelcjhqw[address] [place], [place] [address]Dr. Kalie Bess CULTURE OTHERon 11-28-2022 CULTURE OTHER Culture Observations : NO GROWTH OF AEROBES AT 48 HOURS. Normal The [facility] Comment on above: Performed By: #### O THCX ####[facility] Kzwcymbfhx23[address] [place], [place] [address]Dr. Kalie Bess GRAM STAINon 11-28-2022 COMMENTS NO ORGANISMS OBSERVED Normal [facility] Comment on above: Performed By: #### G STAIN ####[facility] Kjtxmbnkkd[address] [place], [place] [address]Dr. Kalie Bess DIPHTHEROIDS Normal [facility] Comment on above: Performed By: #### G STAIN ####[facility] Itzeaieoce[address] [place], [place] [address]Dr. Kalie Bess EPITHELIALS FEW Normal The [facility] Comment on above: Performed By: #### G STAIN ####[facility] Niaaratvcm5329 [place] [address]Dr. Kalie Bess FUNGAL ELEMENTS Normal [facility] Comment on above: Performed By: #### G STAIN ####[facility] Squnnittsc5044 [place] [address]Dr. Kalie Bess GRAM NEG BACILLI Normal [facility] Comment on above: Performed By: #### G STAIN ####[facility] Bagvkowhso7181 [place] [address]Dr. Kalie Bess GRAM NEG DIPPLOCOCCI Normal The [facility] Comment on above: Performed By: #### G STAIN ####[facility] Nzvjeyuruf[address] [place], [place] [address]Dr. aKlie Bess GRAM POS BACILLI Normal [facility] Comment on above: Performed By: #### G STAIN ####[facility] Fxkihingbn44[address] [place], [place] [address]Dr. Kalie Bess GRAM POSITIVE COCCI Normal [facility] Comment on above: Performed By: #### G STAIN ####[facility] [address]qhctwobq[address] [place], [place] [address]Dr. Kalie Bess GRAM STAIN SOURCE l. breast abcess Normal [facility] Comment on above: Performed By: #### G STAIN ####[facility] Dyiuygrkbu0850 [place] [address]Dr. Kalie Bess GS_DIPTH Normal The [facility] Comment on above: Performed By: #### G STAIN ####[facility] Ydaehgoker9423 [place] [address]Dr. Kalie Bess WBC RARE Normal The [facility] Comment on above: Performed By: #### G STAIN ####[facility] Jsfwqxeigp[address] [place], [place] [address]Dr. Kalie Bess POINT OF CARE GLUCOSEon 02-0 Glucose [Mass/Vol] 151 mg/dL Critically high 74-106 [facility] Comment on above: Performed By: #### P OCGLUC ####[facility] [address]rdtlxofln[address] [place], [place] [address]Dr. Kalie Bess Glucose [Mass/Vol] 159 mg/dL Critically high 74-106 T [facility] Comment on above: Performed By: #### P OCGLUC ####[facility] Edflltlfql[address] [place] [address]Dr. Kalie Bess PROF 14(COMP METB)on 023 Albumin [Mass/Vol] 1.7 g/dL Critically low 3.4-5.0 Th [facility] Comment on above: Performed By: #### C MP, CRP ####[facility] Syunwlgmso[address] [place] [address]Dr. Kalie Bess Albumin/Globulin [Mass ratio] 0.4 {ratio} Normal [facility] Comment on above: Performed By: #### C MP, CRP ####[facility] Bhkhiwyubu6[address] [place] [address]Dr. Kalie Bess ALP [Catalytic activity/Vol] 133 U/L Critically high 46-116 [facility] Comment on above: Performed By: #### C MP, CRP ####[facility] Btuozlxrwp82[address] [place] [address]Dr. Kalie Bess ALT [Catalytic activity/Vol] 23 U/L Normal 14-59 [facility] Comment on above: Performed By: #### C MP, CRP ####[facility] Entnhgmsaf8438 [place] [address]Dr. Kalie Bess Anion gap [Moles/Vol] 9.3 mmol/L Normal [facility] Comment on above: Performed By: #### C MP, CRP ####[facility] Rgusggapwg0751 [place] [address]Dr. Kalie Bess AST [Catalytic activity/Vol] 17 U/L Normal 15-37 [facility] Comment on above: Performed By: #### C MP, CRP ####[facility] Itdhffxrys5960 [place] [address]Dr. Kalie Bess Bilirubin [Mass/Vol] 0.3 mg/dL Normal 0.2-1.0 [facility] Comment on above: Performed By: #### C MP, CRP ####[facility] Oslosncfpr8[address] [place] [id number]. Kalie Bess Calcium [Mass/Vol] 8.4 mg/dL Critically low 8.5-10.1 Th [facility] Comment on above: Performed By: #### C MP, CRP ####[facility] Suvtvihypj87[address] [place] [address]Dr. Kalie Bess Chloride [Moles/Vol] 104 mmol/L Normal 98-107 [facility] Comment on above: Performed By: #### C MP, CRP ####[facility] Kpfgyikcph73[address] [place] [address]Dr. Kalie Bess CO2 [Moles/Vol] 29.2 mmol/L Normal 21.0-32.0 [facility] Comment on above: Performed By: #### C MP, CRP ####[facility] Eqwraplogz[address] [place], [place] [address]Dr. Kalie Bess Creatinine [Mass/Vol] 1.12 mg/dL Critically high 0.55-1.02 [facility] Comment on above: Performed By: #### C MP, CRP ####[facility] Jhfacpgbnb[address] [place], [place] [address]Dr. Kalie Bess EGFR-AF PAPUA [place] >60 Normal >=60 [facility] Comment on above: Performed By: #### C MP, CRP ####[facility] Rdbphabgmz[address] [place], [place] [address]Dr. Kalie Bess EGFR-NON AF PAPUA [place] 51 mL/min/1.73m2 Critically low >=60 [facility] Comment on above: Performed By: #### C MP, CRP ####[facility] Hepgigwqbk66[address] [place] [address]Dr. Kalie Bess Globulin (S) [Mass/Vol] 4.5 g/dL Normal T [facility] Comment on above: Performed By: #### C MP, CRP ####[facility] Iepbxdnmxq9616 [place] [address]Dr. Kalie Bess Glucose [Mass/Vol] 85 mg/dL Normal 74-106 [facility] Comment on above: Performed By: #### C MP, CRP ####[facility] Lzfgewddgi0620 [place] [address]Dr. Kalie Shahriar Potassium [Moles/Vol] 3.5 mmol/L Normal 3.5-5.1 [facility] Comment on above: Performed By: #### C MP, CRP ####[facility] Bmpvxqzwdo6[address] [place] [address]Dr. Kalie Bess Protein [Mass/Vol] 6.2 g/dL Critically low 6.4-8.2 Th [facility] Comment on above: Performed By: #### C MP, CRP ####[facility] Iufzvyugxz5785 [place] [address]Dr. Kalie Bess Sodium [Moles/Vol] 139 mmol/L Normal 136-145 [facility] Comment on above: Performed By: #### C MP, CRP ####[facility] Fqcimsqsmj27[address] [place], [place] [address]Dr. Kalie Bess Urea nitrogen [Mass/Vol] 12.0 mg/dL Normal 7.0-18.0 [facility] Comment on above: Performed By: #### C MP, CRP ####[facility] Iviavputyz[address] [place], [place] [address]Dr. Kalie Bess Urea nitrogen/Creatinine [Mass ratio] 10.7 mg/mg Normal [facility] Comment on above: Performed By: #### C MP, CRP ####[facility] Wgelvxtobi6[address] [place], [place] [address]Dr. Kalie Bess SED RATE WESTERGRENon 2022 SED RATE >130 Critically high <=30 [facility] Comment on above: Performed By: #### S EDR ####[facility] Yogmjwxryi90[address] [place], [place] [address]Dr. Kalie Bess CBC AUTO DIFFon 11-27-2022 BASO # 0.1 103/ul Normal 0.0-0.1 [facility] Comment on above: Performed By: #### C BC ####[facility] Bhqqyhnsjc7[address] [place], [place] [address]Dr. Kalie Bess Basophils/100 WBC (Bld) 0.6 % Normal 0.2-2.0 [facility] Comment on above: Performed By: #### C BC ####[facility] Pjfxznvpan4863 [place] [address]DrCassie Bess EO # 0.5 103/ul Normal 0.0-0.7 [facility] Comment on above: Performed By: #### C BC ####[facility] Oyakpotogn83[address] [place], [place] [address]DrCassie Bess Eosinophils/100 WBC (Bld) 2.8 % Normal 0.9-7.0 [facility] Comment on above: Performed By: #### C BC ####[facility] Ntrfjwopve59[address] [place], [place] [address]DrCassie Bess Erythrocyte distribution width (RBC) [Ratio] 14.1 % Normal 11.0-15.0 [facility] Comment on above: Performed By: #### C BC ####[facility] Nrlauxemle23[address] [place], [place] [address]Dr. Kalie Bess Hematocrit (Bld) [Volume fraction] 27.3 % Critically low 36.0-48.0 [facility] Comment on above: Performed By: #### C BC ####[facility] Qsgnlzmzul[address] [place], [place] [address]Dr. Kalie Bess Hemoglobin (Bld) [Mass/Vol] 8.4 g/dL Critically low 12.0-16.0 [facility] Comment on above: Performed By: #### C BC ####[facility] Gujkegwejz2[address] [place], [place] [address]DrCassie Bess IG # 1.53 10e3/ul Critically high 0.00-0.03 [facility] Comment on above: Performed By: #### C BC ####[facility] Ybzovsijvp01[address] [place], [place] [address]DrCassie Bess IG % 8.9 % Critically high 0.0-0.5 [facility] Comment on above: Performed By: #### C BC ####[facility] Nyyfjawfki96[address] [place], [place] [address]Dr. Kalie Bess LYMPH # 3.8 103/ul Normal 1.2-3.8 [facility] Comment on above: Performed By: #### C BC ####[facility] Jnsnajtici6[address] [place] [id number] Bess Lymphocytes/100 WBC (Bld) 21.8 % Normal 20.5-60.0 [facility] Comment on above: Performed By: #### C BC ####[facility] Thffhgycli3883 [place] [address]DrCassie Bess MANUAL DIFF REQ NO Normal [facility] Comment on above: Performed By: #### C BC ####[facility] Wyqibkvdkr20[address] [place] [address]DrCassie Bess MCH (RBC) [Entitic mass] 29.2 pg Normal 26.7-34.0 [facility] Comment on above: Performed By: #### C BC ####[facility] Gekpazsuco9585 [place] [address]DrCassie Bess MCHC (RBC) [Mass/Vol] 30.8 g/dL Normal 29.9-35.2 [facility] Comment on above: Performed By: #### C BC ####[facility] Wojugdfeig[address] [place], [place] [address]DrCassie Bess MCV (RBC) [Entitic vol] 94.8 fL Normal 81.0-99.0 [facility] Comment on above: Performed By: #### C BC ####[facility] Rhvsybjiwg0961 [place] [address]DrCassie Bess MONO # 1.3 103/ul Critically high 0.3-0.8 [facility] Comment on above: Performed By: #### C BC ####[facility] Nnoncckonj4163 [place] [address]DrCassie Bess Monocytes/100 WBC (Bld) 7.7 % Normal 1.7-12.0 [facility] Comment on above: Performed By: #### C BC ####[facility] Lyghgpouhh[address] [place], [place] [address]Dr. Kalie Bess NEUT # 10.0 103/ul Critically high 1.4-6.5 [facility] Comment on above: Performed By: #### C BC ####[facility] Klhdcutdlc1653 [place] [address]Dr. Kalie Bess Neutrophils/100 WBC (Bld) 58.2 % Normal 43.0-75.0 [facility] Comment on above: Performed By: #### C BC ####[facility] Gdxlrrdany8138 [place] [address]Dr. Kalie Bess Platelet mean volume (Bld) [Entitic vol] 11.2 fL Normal 9.5-13.5 [facility] Comment on above: Performed By: #### C BC ####[facility] Rghjdtebkm3698 [place] [address]Dr. Kalie Bess PLT 278 103/ul Normal 150-450 [facility] Comment on above: Performed By: #### C BC ####[facility] Hhhlhotjpz3109 [place] [address]Dr. Kalie Bess RBC 2.88 106/ul Critically low 4.20-5.40 [facility] Comment on above: Performed By: #### C BC ####[facility] Cgycnbbtaq5598 [place] [address]Dr. Kalie Bess WBC 17.2 103/ul Critically high 4.0-11.0 [facility] Comment on above: Performed By: #### C BC ####[facility] Fgdehfkpvm4209 [place] [address]Dr. Kalie Bess CRPon 11-27-2022 CRP 5.4 mg/dL Critically high <=1.0 [facility] Comment on above: Performed By: #### C RP, CMP ####[facility] Rcyqignvbz6[address] [place], [place] [address]Dr. Kalie Bess POINT OF CARE GLUCOSEon Glucose [Mass/Vol] 379 mg/dL Critically high 74-106 T [facility] Comment on above: Performed By: #### P OCGLUC ####[facility] Msdmnggpuc6[address] [place] [address]Dr. Kalie Bess Glucose [Mass/Vol] 232 mg/dL Critically high 74-106 [facility] Comment on above: Performed By: #### P OCGLUC ####[facility] Jglqfhbznf0708 [place] [address]Dr. Kalie Bess Glucose [Mass/Vol] 216 mg/dL Critically high 74-106 [facility] Comment on above: Performed By: #### P OCGLUC ####[facility] Cybvxddfen7780 [place] [address]Dr. Kalie Bess Glucose [Mass/Vol] 249 mg/dL Critically high 74-106 [facility] Comment on above: Performed By: #### P OCGLUC ####[facility] Hwafduzvws[address] [place], [place] [address]Dr. Shayyroxie Bess PROF 14(COMP METB)on 023 Albumin [Mass/Vol] 1.6 g/dL Critically low 3.4-5.0 [facility] Comment on above: Performed By: #### C RP, CMP ####[facility] Scwqrtynwd12[address] [place], [place] [address]Dr. Kalie Shahriar Albumin/Globulin [Mass ratio] 0.3 {ratio} [facility] Comment on above: Performed By: #### C RP, CMP ####[facility] Novarjysoo27[address] [place], [place] [address]Dr. Kalie Shahriar ALP [Catalytic activity/Vol] 147 U/L Critically high 46-116 [facility] Comment on above: Performed By: #### C RP, CMP ####[facility] Kjnfrhwizo9442 [place] [address]Dr. Kalie Shahriar ALT [Catalytic activity/Vol] 25 U/L Normal 14-59 [facility] Comment on above: Performed By: #### C RP, CMP ####[facility] Halgtlbmgy7139[address] [place], [place] [address]Dr. Shayyroxie Shahriar Anion gap [Moles/Vol] 9.9 mmol/L Normal [facility] Comment on above: Performed By: #### C RP, CMP ####[facility] Ysowxkdqxe9700 [place] [id number]. Kalie Bess AST [Catalytic activity/Vol] 16 U/L Normal 15-37 [facility] Comment on above: Performed By: #### C RP, CMP ####[facility] Prsswekdzw3147 [place] [id number]. Kalie Bess Bilirubin [Mass/Vol] 0.1 mg/dL Critically low 0.2-1.0 [facility] Comment on above: Performed By: #### C RP, CMP ####[facility] Zkvneoxvtw3599 [place] [id number]. Kalie Bess Calcium [Mass/Vol] 8.2 mg/dL Critically low 8.5-10.1 [facility] Comment on above: Performed By: #### C RP, CMP ####[facility] Wdhhzaaxog14[address] [place], [place] [address]Dr. Kalie Bess Chloride [Moles/Vol] 101 mmol/L Normal 98-107 [facility] Comment on above: Performed By: #### C RP, CMP ####[facility] Ijkmnpskqa[address] [place], [place] [address]Dr. Kalie Bess CO2 [Moles/Vol] 27.1 mmol/L Normal 21.0-32.0 [facility] Comment on above: Performed By: #### C RP, CMP ####[facility] Pe[address]xcgqcg[address] [place], [place] [id number]. Kalie Bess Creatinine [Mass/Vol] 1.16 mg/dL Critically high 0.55-1.02 [facility] Comment on above: Performed By: #### C RP, CMP ####[facility] Vchnazwltz5[address] [place] [id number]. Kalie Shahriar EGFR-AF PAPUA [place] 60 mL/min/1.73m2 Normal >=60 [facility] Comment on above: Performed By: #### C RP, CMP ####[facility] Rvlzugpmwj[address] [place], [place] [id number]. Kalie Shahriar EGFR-NON AF PAPUA [place] 49 mL/min/1.73m2 Critically low >=60 [facility] Comment on above: Performed By: #### C RP, CMP ####[facility] Zbxcfahsyp3756 [place] [address]Dr. Kalie Bess Globulin (S) [Mass/Vol] 4.7 g/dL Normal [facility] Comment on above: Performed By: #### C RP, CMP ####[facility] Fsjrzjufgq6863 [place] [address]Dr. Kalie Bess Glucose [Mass/Vol] 281 mg/dL Critically high 74-106 [facility] Comment on above: Performed By: #### C RP, CMP ####[facility] Ctbnsrxqui[address] [place], [place] [address]Dr. Kalie Bess Potassium [Moles/Vol] 4.0 mmol/L Normal 3.5-5.1 [facility] Comment on above: Performed By: #### C RP, CMP ####[facility] Kiytuwgnoj[address] [place], [place] [address]Dr. Kalie Bess Protein [Mass/Vol] 6.3 g/dL Critically low 6.4-8.2 Th [facility] Comment on above: Performed By: #### C RP, CMP ####[facility] Bdvsvsvmgq8[address] [place], [place] [address]Dr. Kalie Bess Sodium [Moles/Vol] 134 mmol/L Critically low 136-145 Th [facility] Comment on above: Performed By: #### C RP, CMP ####[facility] Lwcrpyipct[address] [place], [place] [address]Dr. Kalie Bess Urea nitrogen [Mass/Vol] 13.0 mg/dL Normal 7.0-18.0 [facility] Comment on above: Performed By: #### C RP, CMP ####[facility] Eumuffpqnf60[address] [place], [place] [address]Dr. Kalie Shahriar Urea nitrogen/Creatinine [Mass ratio] 11.2 mg/mg Normal [facility] Comment on above: Performed By: #### C RP, CMP ####[facility] Wtyfywnraa75[address] [place], [place] [address]Dr. Kalie Bess SED RATE WESTERGRENon 2022 SED RATE >130 Critically high <=30 [facility] Comment on above: Performed By: #### S EDR ####[facility] Mpdpshpxuw[address] [place], [place] [address]Dr. Kalie Bess US BREAST LEFT LIMITEDon US BREAST LEFT LIMITED Normal Th e [facility] CBC W MANUAL DIFFon 11-26-19 23 ATYPICAL LYMPH # Normal [facility] Comment on above: Performed By: #### C BCMAN ####[facility] Gfyqomtmqq[address] [place], [place] [address]Dr. Kalie Bess ATYPICAL LYMPH % Normal [facility] Comment on above: Performed By: #### C BCMAN ####[facility] Tfnmcbynek[address] [place], [place] [address]Dr. Kalie Bess BAND # 0.2 103/ul Normal 0.0-0.3 The [facility] Comment on above: Performed By: #### C BCMAN ####[facility] Zzdccytefq14[address] [place], [place] [address]Dr. Kalie Bess BAND % 1 % Normal 0-5 [facility] Comment on above: Performed By: #### C BCMAN ####[facility] Owrtlmabmb68[address] [place], [place] [address]Dr. Kalie Bess BASOM # 0.00 103/ul Normal 0.00-0.10 [facility] Comment on above: Performed By: #### C BCMAN ####[facility] Ymociylrnv[address] [place], [place] [address]Dr. Kalie Bess BASOM % 0.0 % Critically low 0.2-2.0 [facility] Comment on above: Performed By: #### C BCMAN ####[facility] Tvtgyjlfpq[address] [place], [place] [address]Dr. Kalie Bess BLAST # Normal [facility] Comment on above: Performed By: #### C BCGABRIELLA ####[facility] Wgdorgxgnj13[address] [place], [place] [address]Dr. Kalie Bess BLAST % Normal [facility] Comment on above: Performed By: #### C BCMAN ####[facility] Afcacidokv0364 [place], [place] [address]Pc. Kalie Bess CORRECTED WBC Normal 4.0-11.0 [facility] Comment on above: Performed By: #### C NANCY ####[facility] Fazjvqpklc8[address] [place], [place] [address]Vt. Kalie Bess EOS # 0.17 103/ul Normal 0.00-0.70 [facility] Comment on above: Performed By: #### C NANCY ####[facility] Ldlciczwbw7547 [place] [id number]. Kalie Bess EOS% 1.0 % Normal 0.9-7.0 The [facility] Comment on above: Performed By: #### C NANCY ####[facility] Xtuoqesrwc1820 [place] [id number]. Kalie Bess HCT 29.0 % Critically low 36.0-48.0 [facility] Comment on above: Performed By: #### C NANCY ####[facility] Bivrysmsmf0132 [place] [id number]. Kalie Bess HGB 8.9 g/dl Critically low 12.0-16.0 [facility] Comment on above: Performed By: #### C NANCY ####[facility] Szdavpwung1279 [place] [id number]. Kalie Bess LYMPHM # 1.74 103/ul Normal 1.20-3.80 [facility] Comment on above: Performed By: #### C NANCY ####[facility] Mkqavyhmou5526 [place] [id number]. Kalie Bess LYMPHM% 10.0 % Critically low 20.5-60.0 [facility] Comment on above: Performed By: #### C NANCY ####[facility] Zrtixrhmfx1112 [place] [id number]. Kalie Bess MCH 28.3 pg Normal 26.7-34.0 The [facility] Comment on above: Performed By: #### C NANCY ####[facility] Euwugklpeq6952 [place] [id number]. Kalie Bess MCHC 30.7 g/dl Normal 29.9-35.2 The [facility] Comment on above: Performed By: #### C NANCY ####[facility] Waosnxsose1681 [place] [id number]. Kalie Bess MCV 92.1 fL Normal 81.0-99.0 The [facility] Comment on above: Performed By: #### C NANCY ####[facility] Qtzwypeosc9622 [place] [address]Dr. Kalie Bess METAMYELOCYTE # Normal [facility] Comment on above: Performed By: #### C NANCY ####[facility] Vnhcwfgbrh6632 [place] [address]Dr. Kalie Bess METAMYELOCYTE % Normal [facility] Comment on above: Performed By: #### C NANCY ####[facility] Y[address]qfdvhrg[address] [place], [place] [address]Dr. Kalie Bess MONOM# 0.87 103/ul Critically high 0.30-0.80 [facility] Comment on above: Performed By: #### C NANCY ####[facility] Yaopnfxzli0792 [place] [address]Dr. Kalie Bess MONOM% 5.0 % Normal 1.7-12.0 The [facility] Comment on above: Performed By: #### C NANCY ####[facility] Sodbxyobxk[address] [place], [place] [address]Dr. Kalie Bess MPV 11.5 fL Normal 9.5-13.5 The [facility] Comment on above: Performed By: #### C NANCY ####[facility] Qyymjcepyl0225 [place] [address]Dr. Kalie Bess MYELOCYTE # 0.3 103/ul Normal The [facility] Comment on above: Performed By: #### C NANCY ####[facility] Aogkgvmicg3202 [place] [address]Dr. Kalie Bess MYELOCYTE % 2 % Normal [facility] Comment on above: Performed By: #### C NANCY ####[facility] Vswslkauxc0108 [place], [place] [address]Kk. Kalie Bess NRBC Normal [facility] Comment on above: Performed By: #### C MEIRMAN ####[facility] Gdlupsgptm2208 [place], [place] [address]Re. Kalie Bess PLT 275 103/ul Normal 150-450 The [facility] Comment on above: Performed By: #### C NANCY ####[facility] Ibanikrdpt0528 [place], [place] [address]Og. Kalie Bess RBC 3.15 106/ul Critically low 4.20-5.40 [facility] Comment on above: Performed By: #### C NANCY ####[facility] Zxphaugtid8450 [place] [id number]. Kalie Bess RDW 14.4 % Normal 11.0-15.0 [facility] Comment on above: Performed By: #### C NANCY ####[facility] Fxzifsczfa6467 [place], [place] [address]Yw. Kalie Bess SEG # 14.09 103/ul Critically high 1.40-6.50 [facility] Comment on above: Performed By: #### C MEIRMAN ####[facility] Agbmhkdrki6782 [place] [id number]. Kalie Bess SEG % 81.0 % Critically high 43.0-75.0 [facility] Comment on above: Performed By: #### C NANCY ####[facility] Ggcadinrmy8543 [place], [place] [address]Ls. Kalie Bess WBC 17.4 103/ul Critically high 4.0-11.0 [facility] Comment on above: Performed By: #### C BCMAN ####[facility] Whgwnnxklh0476 [place], [place] [address]Sr. Kalie Bess CRPon 11-26-2022 CRP 7.9 mg/dL Critically high <=1.0 [facility] Comment on above: Performed By: #### C RP, CMP ####[facility] Zwsbasjgeo[address] [place], [place] [address]Il. Kalie Bess POINT OF CARE GLUCOSEon Glucose [Mass/Vol] 348 mg/dL Critically high 74-106 [facility] Comment on above: Performed By: #### P OCGLUC ####[facility] [address]ubtuth[address] [place] [address]Dr. Kalie Bess Glucose [Mass/Vol] 355 mg/dL Critically high 74-106 [facility] Comment on above: Performed By: #### P OCGLUC ####[facility] Ujmeezosns[address] [place] [address]Dr. Shayyroxie Shahriar Glucose [Mass/Vol] 421 mg/dL Critically high 74-106 [facility] Comment on above: Performed By: #### P OCGLUC ####[facility] Wrvkqeyhzo[address] [place] [address]Dr. Kalie Bess PROF 14(COMP METB)on 023 Albumin [Mass/Vol] 1.6 g/dL Critically low 3.4-5.0 [facility] Comment on above: Performed By: #### C RP, CMP ####[facility] Kmqslaugwa[address] [place], [place] [address]Dr. Kalie Bess Albumin/Globulin [Mass ratio] 0.3 {ratio} Normal [facility] Comment on above: Performed By: #### C RP, CMP ####[facility] Snewftfhok[address] [place], [place] [address]Dr. Kalie Bess ALP [Catalytic activity/Vol] 176 U/L Critically high 46-116 [facility] Comment on above: Performed By: #### C RP, CMP ####[facility] Addplvkgxj27[address] [place] [address]Dr. Kalie Bess ALT [Catalytic activity/Vol] 32 U/L Normal 14-59 [facility] Comment on above: Performed By: #### C RP, CMP ####[facility] Qttxczxkre[address] [place], [place] [address]Dr. Kalie Bess Anion gap [Moles/Vol] 11.2 mmol/L Normal [facility] Comment on above: Performed By: #### C RP, CMP ####[facility] Gmsltpfasc37[address] [place] [address]Dr. Kalie Bess AST [Catalytic activity/Vol] 18 U/L Normal 15-37 [facility] Comment on above: Performed By: #### C RP, CMP ####[facility] Tzsmdhkhit[address] [place], [place] [address]Dr. Kalie Bess Bilirubin [Mass/Vol] 0.2 mg/dL Normal 0.2-1.0 [facility] Comment on above: Performed By: #### C RP, CMP ####[facility] Jwxbdfvrwm[address] [place], [place] [address]Dr. Kalie Bess Calcium [Mass/Vol] 8.5 mg/dL Normal 8.5-10.1 [facility] Comment on above: Performed By: #### C RP, CMP ####[facility] Ovanbjgeiq[address] [place], [place] [address]Dr. Kalie Bess Chloride [Moles/Vol] 102 mmol/L Normal 98-107 [facility] Comment on above: Performed By: #### C RP, CMP ####[facility] Lptrohmvmf[address] [place], [place] [address]Dr. Kalie Bess CO2 [Moles/Vol] 27.7 mmol/L Normal 21.0-32.0 [facility] Comment on above: Performed By: #### C RP, CMP ####[facility] Akfrtapzax[address] [place], [place] [address]Dr. Kalie Bess Creatinine [Mass/Vol] 1.24 mg/dL Critically high 0.55-1.02 [facility] Comment on above: Performed By: #### C RP, CMP ####[facility] [address]wv[address]om[address] [place], [place] [address]Dr. Kalie Bess EGFR-AF PAPUA [place] 55 mL/min/1.73m2 Critically low >=60 [facility] Comment on above: Performed By: #### C RP, CMP ####[facility] [address]rfcpfsabf[address] [place], [place] [address]Dr. Kalie Bess EGFR-NON AF PAPUA [place] 46 mL/min/1.73m2 Critically low >=60 [facility] Comment on above: Performed By: #### C RP, CMP ####[facility] Zdgrggdunw025[address] [place] [id number]. Kalie Bess Globulin (S) [Mass/Vol] 4.6 g/dL Normal [facility] Comment on above: Performed By: #### C RP, CMP ####[facility] Lzcoyjrzei18[address] [place] [id number]. Kalie Bess Glucose [Mass/Vol] 279 mg/dL Critically high 74-106 [facility] Comment on above: Performed By: #### C RP, CMP ####[facility] Valzpnrxba0[address] [place] [address]Dr. Kalie Bess Potassium [Moles/Vol] 3.9 mmol/L Normal 3.5-5.1 [facility] Comment on above: Performed By: #### C RP, CMP ####[facility] Susvatmknf[address] [place], [place] [address]Dr. Kalie Bess Protein [Mass/Vol] 6.2 g/dL Critically low 6.4-8.2 [facility] Comment on above: Performed By: #### C RP, CMP ####[facility] Kgwpxitoky[address] [place], [place] [address]Dr. Kalie Bess Sodium [Moles/Vol] 137 mmol/L Normal 136-145 [facility] Comment on above: Performed By: #### C RP, CMP ####[facility] Vuxpnsmpig[address] [place], [place] [address]Dr. Kalie Bess Urea nitrogen [Mass/Vol] 16.0 mg/dL Normal 7.0-18.0 [facility] Comment on above: Performed By: #### C RP, CMP ####[facility] Qjqwqxttmu[address] [place] [address]Dr. Kalie Bess Urea nitrogen/Creatinine [Mass ratio] 12.9 mg/mg Normal [facility] Comment on above: Performed By: #### C RP, CMP ####[facility] Wcaczjbrxo7[address] [place] [address]Dr. Kalie Bess SED RATE [facility] 02-01- 2023 SED RATE 126 mm/hr Critically high <=30 [facility] Comment on above: Performed By: #### S EDR ####[facility] L[address]zocgdwn[address] [place] [address]Dr. Kalie Shahriar CBC AUTO DIFFon 11-25-2022 BASO # 0.1 103/ul Normal 0.0-0.1 [facility] Comment on above: Performed By: #### C BC ####[facility] Tqtapreqoj[address] [place], [place] [address]Dr. Kalie Bess Basophils/100 WBC (Bld) 0.6 % Normal 0.2-2.0 [facility] Comment on above: Performed By: #### C BC ####[facility] Dwbmpsoctq[address] [place], [place] [address]Dr. Shayyroxie Shahriar EO # 0.6 103/ul Normal 0.0-0.7 [facility] Comment on above: Performed By: #### C BC ####[facility] Rtfkravqqj[address] [place], [place] [address]Dr. Kalie Bess Eosinophils/100 WBC (Bld) 4.0 % Normal 0.9-7.0 [facility] Comment on above: Performed By: #### C BC ####[facility] Bctdqltgya[address] [place], [place] [address]Dr. Kalie Shahriar Erythrocyte distribution width (RBC) [Ratio] 14.4 % Normal 11.0-15.0 [facility] Comment on above: Performed By: #### C BC ####[facility] Pcmupjlzcj[address] [place], [place] [address]Dr. Kalie Bess Hematocrit (Bld) [Volume fraction] 25.9 % Critically low 36.0-48.0 [facility] Comment on above: Performed By: #### C BC ####[facility] Ecxswyussh[address] [place], [place] [address]Dr. Kalie Bess Hemoglobin (Bld) [Mass/Vol] 8.5 g/dL Critically low 12.0-16.0 [facility] Comment on above: Performed By: #### C BC ####[facility] Ofxjyiczwg[address] [place] [address]Dr. Kalie Bess IG # 1.05 10e3/ul Critically high 0.00-0.03 [facility] Comment on above: Performed By: #### C BC ####[facility] Kpvallzrvv80[address] [place] [address]Dr. Kalie Shahriar IG % 6.7 % Critically high 0.0-0.5 [facility] Comment on above: Performed By: #### C BC ####[facility] Fdwjettnyy[address] [place], [place] [address]Dr. Kalie Bess LYMPH # 3.2 103/ul Normal 1.2-3.8 [facility] Comment on above: Performed By: #### C BC ####[facility] Tzzfesftzk[address] [place], [place] [address]Dr. Kalie Bess Lymphocytes/100 WBC (Bld) 20.3 % Critically low 20.5-60.0 [facility] Comment on above: Performed By: #### C BC ####[facility] Vmhhnsibwt[address] [place], [place] [address]Dr. Kalie Bess MANUAL DIFF REQ YES Normal [facility] Comment on above: Result Comment: Prev iously reported as: NO On 11/25/2022 06:37 By KD3 Performed By: #### C BC ####[facility] Xxaxeybnhg[address] [place], [place] [address]Dr. Kalie Bess MCH (RBC) [Entitic mass] 29.0 pg Normal 26.7-34.0 [facility] Comment on above: Performed By: #### C BC ####[facility] [address]mbxhxvz[address] [place], [place] [address]Dr. Kalie Shahriar MCHC (RBC) [Mass/Vol] 32.8 g/dL Normal 29.9-35.2 [facility] Comment on above: Performed By: #### C BC ####[facility] V[address]ovqmmep[address] [place] [address]Dr. Shayyroxie Bess MCV (RBC) [Entitic vol] 88.4 fL Normal 81.0-99.0 [facility] Comment on above: Performed By: #### C BC ####[facility] Ytsq[address]kctu[address] [place] [id number]. Kalie Bess MONO # 1.3 103/ul Critically high 0.3-0.8 [facility] Comment on above: Performed By: #### C BC ####[facility] Pdicplloaq3422 [place] [id number]. Kalie Bess Monocytes/100 WBC (Bld) 8.5 % Normal 1.7-12.0 [facility] Comment on above: Performed By: #### C BC ####[facility] Ouezsexiaw5[address] [place] [id number]. Kalie Bess NEUT # 9.4 103/ul Critically high 1.4-6.5 [facility] Comment on above: Performed By: #### C BC ####[facility] [address]zhhbsfpai36[address] [place] [address]Dr. Kalie Bess Neutrophils/100 WBC (Bld) 59.9 % Normal 43.0-75.0 [facility] Comment on above: Performed By: #### C BC ####[facility] Jbwshekuka74[address] [place] [id number]. Kalie Bess Platelet mean volume (Bld) [Entitic vol] 11.7 fL Normal 9.5-13.5 [facility] Comment on above: Performed By: #### C BC ####[facility] Xfxogrmauh0256 [place] [id number]. Kalie Bess PLT 243 103/ul Normal 150-450 [facility] Comment on above: Performed By: #### C BC ####[facility] Ejmcryyaul12[address] [place] [id number]. Kalie Bess RBC 2.93 106/ul Critically low 4.20-5.40 [facility] Comment on above: Performed By: #### C BC ####[facility] Mchgyvjhjj8[address] [place] [id number]. Kalie Bess WBC 15.6 103/ul Critically high 4.0-11.0 [facility] Comment on above: Performed By: #### C BC ####[facility] Sprbocgqgl95[address] [place] [address]Dr. Kalie Shahriar CRPon 11-25-2022 CRP 11.0 mg/dL Critically high <=1.0 [facility] Comment on above: Performed By: #### C MP, CRP ####[facility] Bfikohbicl[address] [place] [address]Dr. Kalie Shahriar POINT OF CARE GLUCOSEon 10-28 Glucose [Mass/Vol] 187 mg/dL Critically high -106 [facility] Comment on above: Performed By: #### P OCGLUC ####[facility] Ojirotcnhn[address] [place], [place] [address]Dr. Shayyroxie Shahriar Glucose [Mass/Vol] 196 mg/dL Critically high -106 [facility] Comment on above: Performed By: #### P OCGLUC ####[facility] Vwkfsknxko[address] [place], [place] [address]Dr. Shayyroxie Bess Glucose [Mass/Vol] 234 mg/dL Critically high -106 [facility] Comment on above: Performed By: #### P OCGLUC ####[facility] Jwengpmnip[address] [place], [place] [address]Dr. Kalie Shahriar Glucose [Mass/Vol] 155 mg/dL Critically high [address] [place] [address] Comment on above: Performed By: #### P OCGLUC ####[facility] Kldcmkseml[address] [place], [place] [address]Dr. Kalie Bess PROF 14(COMP METB)on 023 Albumin [Mass/Vol] 1.6 g/dL Critically low 3.4-5.0 [facility] Comment on above: Performed By: #### C MP, CRP ####[facility] Ezpubuarpy86[address] [place], [place] [address]Dr. Shayyroxie Shahriar Albumin/Globulin [Mass ratio] 0.4 {ratio} Normal [facility] Comment on above: Performed By: #### C MP, CRP ####[facility] Jkpiglpjsx36[address] [place], [place] [address]Dr. Kalie Shahriar ALP [Catalytic activity/Vol] 178 U/L Critically high 46-116 [facility] Comment on above: Performed By: #### C MP, CRP ####[facility] Kyqjvikuqk[address] [place] [address]Dr. Shayyroxie Shahriar ALT [Catalytic activity/Vol] 40 U/L Normal 14-59 [facility] Comment on above: Performed By: #### C MP, CRP ####[facility] Grjigjleal6[address] [place] [address]Dr. Kalie Bess Anion gap [Moles/Vol] 10.6 mmol/L Normal [facility] Comment on above: Performed By: #### C MP, CRP ####[facility] Qstfknqoxp[address] [place], [place] [address]Dr. Kalie Bess AST [Catalytic activity/Vol] 19 U/L Normal 15-37 [facility] Comment on above: Performed By: #### C MP, CRP ####[facility] Fpkfgdfhtf[address] [place], [place] [address]Dr. Kalie Bess Bilirubin [Mass/Vol] 0.2 mg/dL Normal 0.2-1.0 [facility] Comment on above: Performed By: #### C MP, CRP ####[facility] Taajuenknt[address] [place], [place] [address]Dr. Kalie Bess Calcium [Mass/Vol] 8.7 mg/dL Normal 8.5-10.1 [facility] Comment on above: Performed By: #### C MP, CRP ####[facility] Rgzpicrftn[address] [place], [place] [address]Dr. Kalie Bess Chloride [Moles/Vol] 103 mmol/L Normal 98-107 [facility] Comment on above: Performed By: #### C MP, CRP ####[facility] Mlznytsgwp28[address] [place] [address]Dr. Kalie Bess CO2 [Moles/Vol] 29.3 mmol/L Normal 21.0-32.0 [facility] Comment on above: Performed By: #### C MP, CRP ####[facility] Dyodvmmlel[address] [place], [place] [address]Dr. Kalie Bess Creatinine [Mass/Vol] 1.35 mg/dL Critically high 0.55-1.02 [facility] Comment on above: Performed By: #### C MP, CRP ####[facility] Efjvolblio76[address] [place] [address]Dr. Kalie Bess EGFR-AF PAPUA [place] 50 mL/min/1.73m2 Critically low >=60 [facility] Comment on above: Performed By: #### C MP, CRP ####[facility] Twngbeoysw60[address] [place] [address]Dr. Kalie Bess EGFR-NON AF PAPUA [place] 41 mL/min/1.73m2 Critically low >=60 [facility] Comment on above: Performed By: #### C MP, CRP ####[facility] Qydegbgojl9973 [place] [address]Dr. Kalie Bess Globulin (S) [Mass/Vol] 4.4 g/dL Normal [facility] Comment on above: Performed By: #### C MP, CRP ####[facility] Earijebvtc21[address] [place] [address]Dr. Kalie Bess Glucose [Mass/Vol] 170 mg/dL Critically high 74-106 [facility] Comment on above: Performed By: #### C MP, CRP ####[facility] Widbnbpqgi4050 [place] [address]Dr. Kalie Bess Potassium [Moles/Vol] 3.9 mmol/L Normal 3.5-5.1 [facility] Comment on above: Performed By: #### C MP, CRP ####[facility] Bywkbfxxfo1827 [place] [address]Dr. Kalie Bess Protein [Mass/Vol] 6.0 g/dL Critically low 6.4-8.2 [facility] Comment on above: Performed By: #### C MP, CRP ####[facility] Spvpbhagwx5[address] [place] [address]Dr. Kalie Bess Sodium [Moles/Vol] 139 mmol/L Normal 136-145 [facility] Comment on above: Performed By: #### C MP, CRP ####[facility] Smncjfzmaq6[address] [place] [address]Dr. Kalie Bess Urea nitrogen [Mass/Vol] 18.0 mg/dL Normal 7.0-18.0 [facility] Comment on above: Performed By: #### C MP, CRP ####[facility] Jrhmkrnbhw39[address] [place] [address]Dr. Kalie Bess Urea nitrogen/Creatinine [Mass ratio] 13.3 mg/mg Normal [facility] Comment on above: Performed By: #### C MP, CRP ####[facility] Yblwqxcvgi8904 [place] [address]Dr. Kalie Bess SED RATE WESTERGRENon 2022 SED RATE 130 mm/hr Critically high <=30 [facility] Comment on above: Performed By: #### S EDR ####[facility] [address]ct[address]zydvl[address] [place], [place] [address]Dr. Kalie Bess CBC W MANUAL DIFFon 11-24-19 23 ATYPICAL LYMPH # 0.16 103/ul Normal [facility] Comment on above: Performed By: #### C BCMAN ####[facility] Ragkyqkbjw[address] [place], [place] [address]Dr. Kalie Bess ATYPICAL LYMPH % 1 % Normal [facility] Comment on above: Performed By: #### C BCMAN ####[facility] Arzvmvmgot49[address] [place] [address]Dr. Kalie Bess BAND # 0.3 103/ul Normal 0.0-0.3 [facility] Comment on above: Performed By: #### C BCMAN ####[facility] Swhpopeztp[address] [place], [place] [address]Dr. Kalie Bess BAND % 2 % Normal 0-5 [facility] Comment on above: Performed By: #### C BCMAN ####[facility] R[address]udankf[address] [place], [place] [address]Dr. Kalie Shahriar BASOM # 0.00 103/ul Normal 0.00-0.10 [facility] Comment on above: Performed By: #### C BCMAN ####[facility] [address] [place], [place] [id number]. Kalie Bess BASOM % 0.0 % Critically low 0.2-2.0 [facility] Comment on above: Performed By: #### C BCMAN ####[facility] Xhlmbdlilh47[address] [place], [place] [address]Pv. Kalie Bess BLAST # Normal [facility] Comment on above: Performed By: #### C BCMAN ####[facility] Plxkpmbxqg5039 [place] [id number]. Kalie Bess BLAST % Normal [facility] Comment on above: Performed By: #### C BCMAN ####[facility] Dpdzrrxtgo5143 [place] [id number]. Kalie Bess CORRECTED WBC Normal 4.0-11.0 [facility] Comment on above: Performed By: #### C BCGABRIELLA ####[facility] Vomkctutwi5208 [place] [id number]. Kalie Bess EOS # 1.42 103/ul Critically high 0.00-0.70 [facility] Comment on above: Performed By: #### C BCGABRIELLA ####[facility] Ytupivqjyh9021 [place] [id number]. aKlie Bess EOS% 9.0 % Critically high 0.9-7.0 [facility] Comment on above: Performed By: #### C BCGABRIELLA ####[facility] Hivealzkxi0460 [place] [id number]. Kalie Bess HCT 27.8 % Critically low 36.0-48.0 [facility] Comment on above: Performed By: #### C BCMAN ####[facility] Lzkpwooafk6012 [place] [id number]. Kalie Bess HGB 9.6 g/dl Critically low 12.0-16.0 [facility] Comment on above: Performed By: #### C BCMAN ####[facility] Ijofjkdfep8368 [place] [id number]. Kalie Bess LYMPHM # 2.69 103/ul Normal 1.20-3.80 [facility] Comment on above: Performed By: #### C NANCY ####[facility] Xkslsepfkh2226 [place] [id number]. Kalie Bess LYMPHM% 17.0 % Critically low 20.5-60.0 [facility] Comment on above: Performed By: #### C NANCY ####[facility] Zpifmrkuaz1565 [place] [id number]. Kalie Bess MCH 29.1 pg Normal 26.7-34.0 [facility] Comment on above: Performed By: #### C NANCY ####[facility] Jawmydlysg5[address] [place] [id number]. Kalie Bess MCHC 34.5 g/dl Normal 29.9-35.2 [facility] Comment on above: Performed By: #### C NANCY ####[facility] Ghmwkmafil7021 [place] [id number]. Kalie Bess MCV 84.2 fL Normal 81.0-99.0 [facility] Comment on above: Performed By: #### C NANCY ####[facility] Dyzbwxvmvg7273 [place] [id number]. Kalie Bess METAMYELOCYTE # 0.0 103/ul Normal [facility] Comment on above: Performed By: #### C NANCY ####[facility] Vbepyjswkf2244 [place] [id number]. Kalie Bess METAMYELOCYTE % 0 % Normal [facility] Comment on above: Performed By: #### C NANCY ####[facility] Lwbiyogobh89[address] [place] [id number]. Kalie Bess MONOM# 0.47 103/ul Normal 0.30-0.80 [facility] Comment on above: Performed By: #### C NANCY ####[facility] Qxkamtfend6499 [place] [id number]. Kalie Bess MONOM% 3.0 % Normal 1.7-12.0 [facility] Comment on above: Performed By: #### C NANCY ####[facility] X[address]zn[address]tui[address] [place], [place] [id number]. Kalie Bess MPV 11.5 fL Normal 9.5-13.5 [facility] Comment on above: Performed By: #### C NANCY ####[facility] Lgebcbfglc0354 [place] [id number]. Kalie Bess MYELOCYTE # Normal [facility] Comment on above: Performed By: #### C NANCY ####[facility] Zelqbfdrht3246 [place] [id number]. Kalie Bess MYELOCYTE % Normal [facility] Comment on above: Performed By: #### C NANCY ####[facility] Fltjfwpmgw2996 [place] [id number]. Kalie Bess NRBC Normal [facility] Comment on above: Performed By: #### C NANCY ####[facility] Edzcaowlix4682 [place] [id number]. Kalie Bess PLT 220 103/ul Normal 150-450 [facility] Comment on above: Performed By: #### C NANCY ####[facility] Gtsuudfwzt9040 [place] [id number]. Kalie Bess RBC 3.30 106/ul Critically low 4.20-5.40 [facility] Comment on above: Performed By: #### C NANCY ####[facility] Jjcgppcakt7101 [place] [id number]. Kalie Bess RDW 14.2 % Normal 11.0-15.0 [facility] Comment on above: Performed By: #### C NANCY ####[facility] Nheybutbbx[address] [place] [id number]. Kalie Bess SEG # 10.74 103/ul Critically high 1.40-6.50 [facility] Comment on above: Performed By: #### C NANCY ####[facility] Xukvrodcox25[address] [place] [id number]. Kalie Bess SEG % 68.0 % Normal 43.0-75.0 [facility] Comment on above: Performed By: #### Marisela CRUZ ####[facility] Jkpbdkzyzl7[address] [place] [id number]. Kalie Bess WBC 15.8 103/ul Critically high 4.0-11.0 [facility] Comment on above: Performed By: #### C BCMAN ####[facility] Ndxlibftlj65[address] [place] [address]Dr. Kalie Bess CRPon 11-24-2022 CRP 18.2 mg/dL Critically high <=1.0 [facility] Comment on above: Performed By: #### C MP, CRP ####[facility] Aeplrxkgwe[address] [place] [address]Dr. Kalie Bess POINT OF CARE GLUCOSEon 10-28 Glucose [Mass/Vol] 277 mg/dL Critically high [address] [place] [address] Comment on above: Performed By: #### P OCGLUC ####[facility] Qqfdohzuse33[address] [place] [address]Dr. Kalie Bess Glucose [Mass/Vol] 268 mg/dL Critically high [address] [place] [address] Comment on above: Performed By: #### P OCGLUC ####[facility] Hhocdfezhz6[address] [place] [address]Dr. Kalie Bess Glucose [Mass/Vol] 337 mg/dL Critically high [address] [place] [address] Comment on above: Performed By: #### P OCGLUC ####[facility] Orhrejiwmr79[address] [place] [address]Dr. Kalie Bess Glucose [Mass/Vol] 366 mg/dL Critically high [address] [place] [address] Comment on above: Performed By: #### P OCGLUC ####[facility] Jjiwvyyksv23[address] [place] [address]Dr. Kalie Bess PROF 14(COMP METB)on 023 Albumin [Mass/Vol] 1.8 g/dL Critically low 3.4-5.0 [facility] Comment on above: Performed By: #### C MP, CRP ####[facility] Bywrcoxdrv69[address] [place] [address]Dr. Kalie Bess Albumin/Globulin [Mass ratio] 0.4 {ratio} Normal [facility] Comment on above: Performed By: #### C MP, CRP ####[facility] Bifphivxmf15[address] [place] [address]Dr. Kalie Bess ALP [Catalytic activity/Vol] 235 U/L Critically high 46-116 [facility] Comment on above: Performed By: #### C MP, CRP ####[facility] Mwrvkfedqx2734 [place] [address]Dr. Kalie Bess ALT [Catalytic activity/Vol] 60 U/L Critically high 14-59 [facility] Comment on above: Performed By: #### C MP, CRP ####[facility] Xlclxrbqxd8576 [place] [address]Dr. Kalie Bess Anion gap [Moles/Vol] 10.2 mmol/L Normal [facility] Comment on above: Performed By: #### C MP, CRP ####[facility] Ryhdlnpydi8[address] [place], [place] [address]Dr. Kalie Bess AST [Catalytic activity/Vol] 32 U/L Normal 15-37 [facility] Comment on above: Performed By: #### C MP, CRP ####[facility] Avfdtwlxqa17[address] [place], [place] [address]Dr. Kalie Bess Bilirubin [Mass/Vol] 0.3 mg/dL Normal 0.2-1.0 [facility] Comment on above: Performed By: #### C MP, CRP ####[facility] Bcmifbxdqa79[address] [place], [place] [address]Dr. Kalie Bess Calcium [Mass/Vol] 9.0 mg/dL Normal 8.5-10.1 [facility] Comment on above: Performed By: #### C MP, CRP ####[facility] Qqxxuykyxk9[address] [place], [place] [address]Dr. Kalie Bess Chloride [Moles/Vol] 100 mmol/L Normal 98-107 [facility] Comment on above: Performed By: #### C MP, CRP ####[facility] Yxuacfspxf13[address] [place], [place] [address]Dr. Kalie Bess CO2 [Moles/Vol] 29.0 mmol/L Normal 21.0-32.0 [facility] Comment on above: Performed By: #### C MP, CRP ####[facility] Owuwdapocx039[address] [place] [address]Dr. Kalie Bess Creatinine [Mass/Vol] 1.21 mg/dL Critically high 0.55-1.02 [facility] Comment on above: Performed By: #### C MP, CRP ####[facility] Gahszlwses[address] [place] [address]Dr. Kalie Bess EGFR-AF PAPUA NEW GUINEAN 57 mL/min/1.73m2 Critically low >=60 [facility] Comment on above: Performed By: #### C MP, CRP ####[facility] Igmqyaspsw05[address] [place], [place] [address]Dr. Kalie Bess EGFR-NON AF PAPUA [place] 47 mL/min/1.73m2 Critically low >=60 [facility] Comment on above: Performed By: #### C MP, CRP ####[facility] Dbanblsxte4255[address] [place], [place] [address]Dr. Kalie Bess Globulin (S) [Mass/Vol] 5.0 g/dL Normal [facility] Comment on above: Performed By: #### C MP, CRP ####[facility] Hbciqmmrqw6137[address] [place], [place] [address]Dr. Kalie Bess Glucose [Mass/Vol] 339 mg/dL Critically high 74-106 [facility] Comment on above: Performed By: #### C MP, CRP ####[facility] Oomtyyuwzk23[address] [place], [place] [address]Dr. Kalie Bess Potassium [Moles/Vol] 4.2 mmol/L Normal 3.5-5.1 [facility] Comment on above: Performed By: #### C MP, CRP ####[facility] Mhaxtjbxoq[address] [place], [place] [address]Dr. Kalie Shahriar Protein [Mass/Vol] 6.8 g/dL Normal 6.4-8.2 [facility] Comment on above: Performed By: #### C MP, CRP ####[facility] Jsbmwpyeul1007[address] [place], [place] [address]Dr. Kalie Shahriar Sodium [Moles/Vol] 135 mmol/L Critically low 136-145 [facility] Comment on above: Performed By: #### C MP, CRP ####[facility] Kzggxndybc17[address] [place] [address]Dr. Kalie Shahriar Urea nitrogen [Mass/Vol] 24.0 mg/dL Critically high 7.0-18.0 [facility] Comment on above: Performed By: #### C MP, CRP ####[facility] Hcfvdzaqcd[address] [place], [place] [address]Dr. Kalie Bess Urea nitrogen/Creatinine [Mass ratio] 19.8 mg/mg Normal [facility] Comment on above: Performed By: #### C MP, CRP ####[facility] Fpmzqhxpwm97[address] [place], [place] [address]Dr. Shayyroxie Shahriar SED RATE WESTERGRENon 2022 SED RATE >130 Critically high <=30 [facility] Comment on above: Performed By: #### S EDR ####[facility] Kqekrfzwml10[address] [place], [place] [address]Dr. Kalie Bess US BREAST LEFT COMPLETEon US BREAST LEFT COMPLETE Normal [facility] XR CHEST 1 Von 11-24-2022 XR CHEST 1 V Normal [facility] CBC AUTO DIFFon 11-23-2022 BASO # 0.1 103/ul Normal 0.0-0.1 [facility] Comment on above: Performed By: #### C BC ####[facility] Plyqwhzqni5[address] [place], [place] [address]Dr. Kalie Bess Basophils/100 WBC (Bld) 0.4 % Normal 0.2-2.0 [facility] Comment on above: Performed By: #### C BC ####[facility] Wnvqpcimki8[address] [place], [place] [address]Dr. Kalei Bess EO # 0.7 103/ul Normal 0.0-0.7 [facility] Comment on above: Performed By: #### C BC ####[facility] Cdnvyqkwcn2[address] [place], [place] [address]Dr. Kalie Bess Eosinophils/100 WBC (Bld) 4.5 % Normal 0.9-7.0 [facility] Comment on above: Performed By: #### C BC ####[facility] Agkyubxbhk3420[address] [place], [place] [address]Dr. Kalie Bess Erythrocyte distribution width (RBC) [Ratio] 14.0 % Normal 11.0-15.0 [facility] Comment on above: Performed By: #### C BC ####[facility] Iaasckznym5[address] [place], [place] [address]DrCassie Bess Hematocrit (Bld) [Volume fraction] 23.8 % Critically low 36.0-48.0 [facility] Comment on above: Performed By: #### C BC ####[facility] Byqpvagedt[address] [place], [place] [address]Dr. Kalie Bess Hemoglobin (Bld) [Mass/Vol] 8.4 g/dL Critically low 12.0-16.0 [facility] Comment on above: Performed By: #### C BC ####[facility] Vjqhacqouw[address] [place], [place] [address]Dr. Kalie Bess IG # 0.30 10e3/ul Critically high 0.00-0.03 [facility] Comment on above: Performed By: #### C BC ####[facility] Lmnthmvjmr[address] [place], [place] [address]Dr. Kalie Bess IG % 2.1 % Critically high 0.0-0.5 [facility] Comment on above: Performed By: #### C BC ####[facility] Eirgrqaokz[address] [place], [place] [address]DrCassie Bess LYMPH # 2.3 103/ul Normal 1.2-3.8 [facility] Comment on above: Performed By: #### C BC ####[facility] Shouebafio[address] [place], [place] [address]DrCassie Bess Lymphocytes/100 WBC (Bld) 15.6 % Critically low 20.5-60.0 [facility] Comment on above: Performed By: #### C BC ####[facility] Guxiryagws[address] [place], [place] [address]DrCassie Bess MANUAL DIFF REQ NO Normal [facility] Comment on above: Performed By: #### C BC ####[facility] Rilhjxauhj032[address] [place] [address]DrCassie Kalie Shahriar MCH (RBC) [Entitic mass] 29.3 pg Normal 26.7-34.0 [facility] Comment on above: Performed By: #### C BC ####[facility] Nuozoshdae[address] [place], [place] [address]DrCassie Lucasroxie Shahriar MCHC (RBC) [Mass/Vol] 35.3 g/dL Critically high 29.9-35.2 [facility] Comment on above: Performed By: #### C BC ####[facility] Enjpuensep[address] [place], [place] [address]DrCassie Bess MCV (RBC) [Entitic vol] 82.9 fL Normal 81.0-99.0 [facility] Comment on above: Performed By: #### C BC ####[facility] Gbgbhvzuht[address] [place], [place] [address]DrCassie Bess MONO # 1.4 103/ul Critically high 0.3-0.8 [facility] Comment on above: Performed By: #### C BC ####[facility] Fyjjkdphej[address] [place], [place] [address]DrCassie Bess Monocytes/100 WBC (Bld) 9.3 % Normal 1.7-12.0 [facility] Comment on above: Performed By: #### C BC ####[facility] Rwxixocmhf9[address] [place], [place] [address]DrCassie Bess NEUT # 10.0 103/ul Critically high 1.4-6.5 [facility] Comment on above: Performed By: #### C BC ####[facility] Emjnxqctun43[address] [place], [place] [address]DrCassie Bess Neutrophils/100 WBC (Bld) 68.1 % Normal 43.0-75.0 [facility] Comment on above: Performed By: #### C BC ####[facility] Pyqavymojz95[address] [place], [place] [address]Dr. Kalie Bess Platelet mean volume (Bld) [Entitic vol] 12.1 fL Normal 9.5-13.5 [facility] Comment on above: Performed By: #### C BC ####[facility] Zsctecmblv38[address] [place] [address]Dr. Kalie Bess PLT 167 103/ul Normal 150-450 [facility] Comment on above: Performed By: #### C BC ####[facility] Mubthegkgb9127 [place] [address]Dr. Kalie Bess RBC 2.87 106/ul Critically low 4.20-5.40 [facility] Comment on above: Performed By: #### C BC ####[facility] Jjysyouqhv[address] [place], [place] [address]Dr. Kalie Bess WBC 14.6 103/ul Critically high 4.0-11.0 [facility] Comment on above: Performed By: #### C BC ####[facility] Phhcbctyup[address] [place], [place] [address]Dr. Kalie Bess CRPon 11-23-2022 CRP 47.3 mg/dL Critically high <=1.0 [facility] Comment on above: Performed By: #### C RP, CMP ####[facility] Gfcycsvpjd[address] [place], [place] [address]Dr. Kalie Bess H PYLORI ANTIBODY IGGon 10-27 H. PYLORI IGG ABS 0.14 Index Value Normal 0.00-0.79 [facility] Comment on above: Result Comment: Nega tive <0.80 Equivocal 0.80 - 0.89 Positive >0.89 Performed By: #### H PYLLC ####[facility] Szehhluged110[address] [place] [address]Dr. Kalie Bess OCC BLD IMMUNO SCREENon 10-27 OCCULT BLOOD Negative Normal NEGATIVE [facility] Comment on above: Performed By: #### O BSCRN ####[facility] Uiywdshwlk20[address] [place] [address]Dr. Kalie Bess POINT OF CARE GLUCOSEon 10-27 Glucose [Mass/Vol] 450 mg/dL Critically high 74-106 [facility] Comment on above: Performed By: #### P OCGLUC ####[facility] Ousqxpffxx2438 [place] [address]Dr. Shayyroxie Shahriar Glucose [Mass/Vol] 328 mg/dL Critically high 74-106 [facility] Comment on above: Performed By: #### P OCGLUC ####[facility] Lhwyobveih40[address] [place] [address]Dr. Shayyroxie Bess Glucose [Mass/Vol] 268 mg/dL Critically high 74-106 [facility] Comment on above: Performed By: #### P OCGLUC ####[facility] Uqddyxqier97[address] [place], [place] [address]Dr. Kalie Bess Glucose [Mass/Vol] 206 mg/dL Critically high 74-106 [facility] Comment on above: Performed By: #### P OCGLUC ####[facility] Oatmaghxkt5[address] [place], [place] [address]Dr. Kalie Bess PROF 14(COMP METB)on 023 Albumin [Mass/Vol] 1.6 g/dL Critically low 3.4-5.0 [facility] Comment on above: Performed By: #### C RP, CMP ####[facility] Scxlrweogu8153[address] [place], [place] [address]Dr. Kalie Bess Albumin/Globulin [Mass ratio] 0.4 {ratio} Normal [facility] Comment on above: Performed By: #### C RP, CMP ####[facility] Qwddgzftbf[address] [place], [place] [address]Dr. Kalie Bess ALP [Catalytic activity/Vol] 202 U/L Critically high 46-116 [facility] Comment on above: Performed By: #### C RP, CMP ####[facility] Ockecgrezq5827[address] [place], [place] [address]Dr. Kalie Bess ALT [Catalytic activity/Vol] 63 U/L Critically high 14-59 [facility] Comment on above: Performed By: #### C RP, CMP ####[facility] Nbthcoeyoc55[address] [place], [place] [address]Dr. Kalie Bess Anion gap [Moles/Vol] 12.7 mmol/L Normal [facility] Comment on above: Performed By: #### C RP, CMP ####[facility] Vagntwzwyb2127 [place] [address]Dr. Kalie Bess AST [Catalytic activity/Vol] 69 U/L Critically high 15-37 [facility] Comment on above: Performed By: #### C RP, CMP ####[facility] Qmsizqdpuu7609 [place] [address]Dr. Kalie Bess Bilirubin [Mass/Vol] 0.2 mg/dL Normal 0.2-1.0 [facility] Comment on above: Performed By: #### C RP, CMP ####[facility] Ighyjrcfzz34[address] [place], [place] [address]Dr. Kalie Bess Calcium [Mass/Vol] 8.6 mg/dL Normal 8.5-10.1 [facility] Comment on above: Performed By: #### C RP, CMP ####[facility] Ziobwrpgwf[address] [place], [place] [address]Dr. Kalie Bess Chloride [Moles/Vol] 99 mmol/L Normal 98-107 [facility] Comment on above: Performed By: #### C RP, CMP ####[facility] Gfbbsnpznh04[address] [place], [place] [address]Dr. Kalie Bess CO2 [Moles/Vol] 27.2 mmol/L Normal 21.0-32.0 [facility] Comment on above: Performed By: #### C RP, CMP ####[facility] Rwcfatjiqo8793 [place] [address]Dr. Kalie Bess Creatinine [Mass/Vol] 1.59 mg/dL Critically high 0.55-1.02 [facility] Comment on above: Performed By: #### C RP, CMP ####[facility] Nuwjchcckc17[address] [place] [address]Dr. Kalie Shahriar EGFR-AF PAPUA [place] 41 mL/min/1.73m2 Critically low >=60 [facility] Comment on above: Performed By: #### C RP, CMP ####[facility] Mqwsgtbqst9420 [place] [id number]. Kalie Bess EGFR-NON AF PAPUA [place] 34 mL/min/1.73m2 Critically low >=60 [facility] Comment on above: Performed By: #### C RP, CMP ####[facility] Irukkanriz1484 [place] [address]Dr. Kalie Bess Globulin (S) [Mass/Vol] 4.5 g/dL Normal [facility] Comment on above: Performed By: #### C RP, CMP ####[facility] Yefatvfqkk38[address] [place], [place] [address]Dr. Kalie Bess Glucose [Mass/Vol] 119 mg/dL Critically high 74-106 [facility] Comment on above: Performed By: #### C RP, CMP ####[facility] Sznrhuxvhi9[address] [place], [place] [address]Dr. Kalie Bess Potassium [Moles/Vol] 3.9 mmol/L Normal 3.5-5.1 [facility] Comment on above: Performed By: #### C RP, CMP ####[facility] Rzoumgdzoi[address] [place], [place] [address]Dr. Kalie Bess Protein [Mass/Vol] 6.1 g/dL Critically low 6.4-8.2 [facility] Comment on above: Performed By: #### C RP, CMP ####[facility] Wakryrnaad46[address] [place], [place] [address]Dr. Kalie Bess Sodium [Moles/Vol] 135 mmol/L Critically low 136-145 [facility] Comment on above: Performed By: #### C RP, CMP ####[facility] Lkzoehulqr9[address] [place], [place] [address]Dr. Kalie Bess Urea nitrogen [Mass/Vol] 36.0 mg/dL Critically high 7.0-18.0 [facility] Comment on above: Performed By: #### C RP, CMP ####[facility] Nhbtcviffp[address] [place], [place] [address]Dr. Kalie Bess Urea nitrogen/Creatinine [Mass ratio] 22.6 mg/mg Normal [facility] Comment on above: Performed By: #### C RP, CMP ####[facility] Iejipemtjx29[address] [place] [address]Dr. Kalie Bess SED RATE WESTERGRENon 2022 SED RATE >130 Critically high <=30 [facility] Comment on above: Performed By: #### S EDR ####[facility] Vvehtsrrgz[address] [place], [place] [address]Dr. Kalie Bess CBC AUTO DIFFon 11-22-2022 BASO # 0.1 103/ul Normal 0.0-0.1 [facility] Comment on above: Performed By: #### C BC ####[facility] Oeqvvkyjfv[address] [place], [place] [address]Dr. Kalie Bess Basophils/100 WBC (Bld) 0.5 % Normal 0.2-2.0 [facility] Comment on above: Performed By: #### C BC ####[facility] Cawkyfawdl[address] [place], [place] [address]Dr. Kalie Bess EO # 0.8 103/ul Critically high 0.0-0.7 [facility] Comment on above: Performed By: #### C BC ####[facility] Dhfcwalqoo7[address] [place], [place] [address]Dr. Kalie Bess Eosinophils/100 WBC (Bld) 5.2 % Normal 0.9-7.0 [facility] Comment on above: Performed By: #### C BC ####[facility] Hmobkzgnlo68[address] [place], [place] [address]Dr. Kalie Bess Erythrocyte distribution width (RBC) [Ratio] 13.8 % Normal 11.0-15.0 [facility] Comment on above: Performed By: #### C BC ####[facility] Jhrmtdgvkz05[address] [place], [place] [address]Dr. Kalie Bess Hematocrit (Bld) [Volume fraction] 27.0 % Critically low 36.0-48.0 [facility] Comment on above: Performed By: #### C BC ####[facility] Otedpqnrnp[address] [place], [place] [address]Dr. Kalie Bess Hemoglobin (Bld) [Mass/Vol] 9.4 g/dL Critically low 12.0-16.0 [facility] Comment on above: Performed By: #### C BC ####[facility] Ktjypwzrvn[address] [place] [address]DrCassie Bess IG # 0.23 10e3/ul Critically high 0.00-0.03 [facility] Comment on above: Performed By: #### C BC ####[facility] Rsdwxvzxjt3086 [place] [address]Dr. Kalie Bess IG % 1.4 % Critically high 0.0-0.5 [facility] Comment on above: Performed By: #### C BC ####[facility] Fjyhufsled[address] [place], [place] [address]DrCassie Bess LYMPH # 2.2 103/ul Normal 1.2-3.8 [facility] Comment on above: Performed By: #### C BC ####[facility] Iexgmfbmpg18[address] [place], [place] [address]DrCassie Bess Lymphocytes/100 WBC (Bld) 13.6 % Critically low 20.5-60.0 [facility] Comment on above: Performed By: #### C BC ####[facility] Ruvnxmaqwr[address] [place], [place] [address]DrCassie Shayyroxie Bess MANUAL DIFF REQ NO Normal [facility] Comment on above: Performed By: #### C BC ####[facility] Tfrzgecrfr[address] [place], [place] [address]DrCassie Bess MCH (RBC) [Entitic mass] 28.8 pg Normal 26.7-34.0 [facility] Comment on above: Performed By: #### C BC ####[facility] Azrdvllwgh6[address] [place], [place] [address]DrCassie Bess MCHC (RBC) [Mass/Vol] 34.8 g/dL Normal 29.9-35.2 [facility] Comment on above: Performed By: #### C BC ####[facility] T[address]ukhm[address] [place], [place] [address]DrCassie Bess MCV (RBC) [Entitic vol] 82.8 fL Normal 81.0-99.0 [facility] Comment on above: Performed By: #### C BC ####[facility] Nwodqkehuu[address] [place] [address]DrCassie Kalie Bess MONO # 1.2 103/ul Critically high 0.3-0.8 [facility] Comment on above: Performed By: #### C BC ####[facility] M[address]dsdusu[address] [place], [place] [address]DrCassie Kalie Shahriar Monocytes/100 WBC (Bld) 7.3 % Normal 1.7-12.0 [facility] Comment on above: Performed By: #### C BC ####[facility] Bhstyfnrnq[address] [place], [place] [address]DrCassie Kalie Bess NEUT # 11.7 103/ul Critically high 1.4-6.5 [facility] Comment on above: Performed By: #### C BC ####[facility] Nmpservnui[address] [place], [place] [address]DrCassie Shayyroxie Bess Neutrophils/100 WBC (Bld) 72.0 % Normal 43.0-75.0 [facility] Comment on above: Performed By: #### C BC ####[facility] [address] [place], [place] [address]DrCassie Kalie Shahriar Platelet mean volume (Bld) [Entitic vol] 12.5 fL Normal 9.5-13.5 [facility] Comment on above: Performed By: #### C BC ####[facility] Drrzf[address] [place], [place] [address]Dr. Kalie Shahriar PLT 153 103/ul Normal 150-450 [facility] Comment on above: Performed By: #### C BC ####[facility] Sz[address] [place], [place] [address]DrCassie Bess RBC 3.26 106/ul Critically low 4.20-5.40 [facility] Comment on above: Performed By: #### C BC ####[facility] N[address] [place], [place] [address]DrCassie Bess WBC 16.2 103/ul Critically high 4.0-11.0 [facility] Comment on above: Performed By: #### C BC ####[facility] [address]htdgory[address] [place] [address]Dr. Kalie Bess CRPon 11-22-2022 CRP [Mass/Vol] mg/L Normal <=1.0 [facility] Comment on above: Performed By: #### C RP, CMP ####[facility] L[address]xswnbmc[address] [place] [address]Dr. Kalie Bess POINT OF CARE GLUCOSEon 10-27 Glucose [Mass/Vol] 179 mg/dL Critically high 74-106 [facility] Comment on above: Performed By: #### P OCGLUC ####[facility] Uiszckpxhh[address] [place] [address]Dr. Kalie Bess Glucose [Mass/Vol] 110 mg/dL Critically high 74-106 [facility] Comment on above: Performed By: #### P OCGLUC ####[facility] Yknzrfwelk9[address] [place] [address]Dr. Kalie Bess Glucose [Mass/Vol] 258 mg/dL Critically high 74-106 [facility] Comment on above: Performed By: #### P OCGLUC ####[facility] Owstzsgawd4[address] [place] [address]Dr. Kalie Bess Glucose [Mass/Vol] 216 mg/dL Critically high 74-106 [facility] Comment on above: Performed By: #### P OCGLUC ####[facility] Uptfycmfkx26[address] [place] [address]Dr. Kalie Bess PROF 14(COMP METB)on 023 Albumin [Mass/Vol] 1.8 g/dL Critically low 3.4-5.0 [facility] Comment on above: Performed By: #### C RP, CMP ####[facility] Vmvbkbrbgh4[address] [place] [address]Dr. Kalie Bess Albumin/Globulin [Mass ratio] 0.4 {ratio} Normal [facility] Comment on above: Performed By: #### C RP, CMP ####[facility] Kfspjutyxb88[address] [place] [id number]. Kalie Bess ALP [Catalytic activity/Vol] 117 U/L Critically high 46-116 [facility] Comment on above: Performed By: #### C RP, CMP ####[facility] Ctuxezmfor0244 [place] [id number]. Kalie Bess ALT [Catalytic activity/Vol] 30 U/L Normal 14-59 [facility] Comment on above: Performed By: #### C RP, CMP ####[facility] Dirmwyngex0082 [place] [id number]. Kalie Bess Anion gap [Moles/Vol] 12.9 mmol/L Normal [facility] Comment on above: Performed By: #### C RP, CMP ####[facility] Mqlftzozkb0356 [place] [id number]. Kalie Bess AST [Catalytic activity/Vol] 20 U/L Normal 15-37 [facility] Comment on above: Performed By: #### C RP, CMP ####[facility] Vhxpujvinw5694 [place] [id number]. Kalie Bess Bilirubin [Mass/Vol] 0.3 mg/dL Normal 0.2-1.0 [facility] Comment on above: Performed By: #### C RP, CMP ####[facility] Bhelhezdzn13[address] [place] [id number]. Kalie Shahriar Calcium [Mass/Vol] 8.5 mg/dL Normal 8.5-10.1 [facility] Comment on above: Performed By: #### C RP, CMP ####[facility] Wghhutxjto33[address] [place] [id number]. Kalie Shahriar Chloride [Moles/Vol] 97 mmol/L Critically low 98-107 [facility] Comment on above: Performed By: #### C RP, CMP ####[facility] Ycwvyhbvlh6237 [place] [id number]. Kalie Bess CO2 [Moles/Vol] 26.1 mmol/L Normal 21.0-32.0 [facility] Comment on above: Performed By: #### C RP, CMP ####[facility] Lqopmylyix6305 [place] [id number]. Kalie Bess Creatinine [Mass/Vol] 1.72 mg/dL Critically high 0.55-1.02 [facility] Comment on above: Performed By: #### C RP, CMP ####[facility] Zuqcyrjnhg[address] [place] [address]Dr. Kalie Bess EGFR-AF PAPUA NEW GUINEAN 38 mL/min/1.73m2 Critically low >=60 [facility] Comment on above: Performed By: #### C RP, CMP ####[facility] Rugeweejcb55[address] [place] [address]Dr. Kalie Bess EGFR-NON AF PAPUA [place] GU[place]AN 31 mL/min/1.73m2 Critically low >=60 [facility] Comment on above: Performed By: #### C RP, CMP ####[facility] Hwgfskewvs[address] [place], [place] [address]Dr. Kalie Bess Globulin (S) [Mass/Vol] 4.5 g/dL Normal [facility] Comment on above: Performed By: #### C RP, CMP ####[facility] Ehqelcbyoe4484 [place] [address]Dr. Kalie Bess Glucose [Mass/Vol] 230 mg/dL Critically high 74-106 [facility] Comment on above: Performed By: #### C RP, CMP ####[facility] Iyvhtmgptv5630 [place] [address]Dr. Kalie Bess Potassium [Moles/Vol] 4.0 mmol/L Normal 3.5-5.1 [facility] Comment on above: Performed By: #### C RP, CMP ####[facility] Mlgmanjfmj6769 [place] [address]Dr. Kalie Bess Protein [Mass/Vol] 6.3 g/dL Critically low 6.4-8.2 [facility] Comment on above: Performed By: #### C RP, CMP ####[facility] Pcutiavxoo44[address] [place] [address]Dr. Kalie Bess Sodium [Moles/Vol] 132 mmol/L Critically low 136-145 [facility] Comment on above: Performed By: #### C RP, CMP ####[facility] Oqwvoynghl8265 [place] [address]Dr. Kalie Bess Urea nitrogen [Mass/Vol] 45.0 mg/dL Critically high 7.0-18.0 [facility] Comment on above: Performed By: #### C RP, CMP ####[facility] Mswstymhkq3837 [place] [address]Dr. Kalie Bess Urea nitrogen/Creatinine [Mass ratio] 26.2 mg/mg Normal [facility] Comment on above: Performed By: #### C RP, CMP ####[facility] Xqlzyhariq1751 [place] [address]Dr. Kalie Bess SED RATE WESTERGRENon 2022 SED RATE 95 mm/hr Critically high <=30 [facility] Comment on above: Performed By: #### S EDR ####[facility] Tihzzuiahg[address] [place], [place] [address]Dr. Kalie Bess US BREAST LEFT LIMITEDon US BREAST LEFT LIMITED Normal [facility] ACETONE SERUMon 11-21-2022 ACETONE Negative Normal NEGATIVE [facility] Comment on above: Performed By: #### A CETON ####[facility] Tmpkud[address]dsn[address] [place], [place] [address]Dr. Kalie Bess CBC W MANUAL DIFFon 11-21-19 23 ANISOCYTOSIS SLIGHT Normal [facility] Comment on above: Performed By: #### C BCMAN ####[facility] Iebcsivxiv0083 [place] [address]Dr. Kalie Bess ATYPICAL LYMPH # Normal [facility] Comment on above: Performed By: #### C BCMAN ####[facility] [address] [place], [place] [address]Dr. Kalie Bess ATYPICAL LYMPH % Normal [facility] Comment on above: Performed By: #### C BCMAN ####[facility] Fttzwhygkc5608 [place] [address]Dr. Kalie Bess BAND # 1.1 103/ul Critically high 0.0-0.3 [facility] Comment on above: Performed By: #### C BCMAN ####[facility] Tjihmwhthq5[address] [place] [address]Dr. Kalie Bess BAND % 5 % Normal 0-5 [facility] Comment on above: Performed By: #### C BCMAN ####[facility] Rjpyokijxa6863 [place] [id number]. Kalie eBss BASOM # 0.00 103/ul Normal 0.00-0.10 [facility] Comment on above: Performed By: #### C BCMAN ####[facility] Xudqmeidcx350[address] [place] [address]Dr. Kalie Bess BASOM % 0.0 % Critically low 0.2-2.0 [facility] Comment on above: Performed By: #### C BCGABRIELLA ####[facility] Bkglxrqiwk[address] [place] [address]Dr. Kalie Bess BLAST # Normal [facility] Comment on above: Performed By: #### C BCGABRIELLA ####[facility] Wzcbudgemn15[address] [place] [address]Dr. Kalie Bess BLAST % Normal [facility] Comment on above: Performed By: #### C BCGABRIELLA ####[facility] Rconbdachc0560 [place] [id number]. Kalie Bess CORRECTED WBC Normal 4.0-11.0 The [facility] Comment on above: Performed By: #### C BCMAN ####[facility] Ffkjiaqxgd3665 [place] [id number]. Kalie Bess EOS # 0.87 103/ul Critically high 0.00-0.70 [facility] Comment on above: Performed By: #### C BCMAN ####[facility] Vzvfqiffok7820 [place] [address]Dr. Kalie Bess EOS% 4.0 % Normal 0.9-7.0 [facility] Comment on above: Performed By: #### C BCGABRIELLA ####[facility] Gxrezwpqlh6567 [place] [address]Dr. Yilan Bess HCT 22.7 % Critically low 36.0-48.0 [facility] Comment on above: Performed By: #### Marisela CRUZ ####[facility] Nslrypypfa6662 [place] [id number]. Kalie Bess HGB 8.2 g/dl Critically low 12.0-16.0 [facility] Comment on above: Performed By: #### Marisela CRUZ ####[facility] Vorpypzxhd3090 [place] [id number]. Kalie Bess LYMPHM # 1.74 103/ul Normal 1.20-3.80 [facility] Comment on above: Performed By: #### Marisela CRUZ ####[facility] Asvtyqtxjm5741 [place] [id number]. Kalie Bess LYMPHM% 8.0 % Critically low 20.5-60.0 [facility] Comment on above: Performed By: #### Marisela CRUZ ####[facility] Avwnjfbqzg1536 [place] [id number]. Kalie Bess MCH 29.2 pg Normal 26.7-34.0 [facility] Comment on above: Performed By: #### Marisela CRUZ ####[facility] Ndfmwlmlfm6666 [place] [id number]. Kalie Bess MCHC 36.1 g/dl Critically high 29.9-35.2 [facility] Comment on above: Performed By: #### Marisela CRUZ ####[facility] Tiyicsdssg3794 [place] [id number]. Kalie Bess MCV 80.8 fL Critically low 81.0-99.0 [facility] Comment on above: Performed By: #### Marisela CRUZ ####[facility] Mlbwdteyzk0934 [place] [id number]. Kalie Bess METAMYELOCYTE # Normal [facility] Comment on above: Performed By: #### Marisela CRUZ ####[facility] Xkkqzxivfr5968 [place] [id number]. Kalie Bess METAMYELOCYTE % Normal [facility] Comment on above: Performed By: #### C NANCY ####[facility] Gzzktvwqtm9056 [place] [id number]. Kalie Bess MICROCYTOSIS SLIGHT Normal [facility] Comment on above: Performed By: #### C NANCY ####[facility] Jrginxepfo0493 [place] [phone]. Kalie Bess MONOM# 1.08 103/ul Critically high 0.30-0.80 [facility] Comment on above: Performed By: #### Marisela CRUZ ####[facility] Noxqlmfukx3077 [place] [id number]. Kalie Bess MONOM% 5.0 % Normal 1.7-12.0 [facility] Comment on above: Performed By: #### Marisela CRUZ ####[facility] Lhwkimtsrh0063 [place] [phone]. Kalie Bess MPV 12.3 fL Normal 9.5-13.5 [facility] Comment on above: Performed By: #### Marisela CRUZ ####[facility] Gzfeqkzegc2219 [place] [phone]. Kalie Bess MYELOCYTE # Normal [facility] Comment on above: Performed By: #### Marisela CRUZ ####[facility] [address]qfum[address] [place], [place] [address]Dr. Kalie Bess MYELOCYTE % Normal [facility] Comment on above: Performed By: #### Marisela CRUZ ####[facility] Ejaibdtumq6881 [place] [phone]. Kalie Bess NRBC Normal [facility] Comment on above: Performed By: #### Marisela CRUZ ####[facility] Rfxynqrytz1307 [place] [phone]. Kalie Bess PLT 184 103/ul Normal 150-450 [facility] Comment on above: Performed By: #### Marisela CRUZ ####[facility] Vilheuwwet5844 [place] [phone]. Kalie Bess RBC 2.81 106/ul Critically low 4.20-5.40 [facility] Comment on above: Performed By: #### Marisela CRUZ ####[facility] Tpsvrqlhol3325 [place], [place] [address]Gy. Kalie Bess RDW 13.6 % Normal 11.0-15.0 [facility] Comment on above: Performed By: #### C MEIRMAN ####[facility] Ksxmkatrgs3267 [place], [place] [address]Eo. Kalie Bess SEG # 16.93 103/ul Critically high 1.40-6.50 [facility] Comment on above: Performed By: #### C MEIRMAN ####[facility] Mfrrwulwpe6195 [place], [place] [address]Bl. Kalie Bess SEG % 78.0 % Critically high 43.0-75.0 [facility] Comment on above: Performed By: #### C MEIRMAN ####[facility] Noxxmszbaq1923 [place], [place] [address]Mk. Kalie Bess WBC 21.7 103/ul Critically high 4.0-11.0 [facility] Comment on above: Performed By: #### C NANCY ####[facility] Lvjscxzpma4089 [place] [phone]. Kalie Bess CRPon 11-21-2022 CRP 65.5 mg/dL Critically high <=1.0 [facility] Comment on above: Performed By: #### C RP ####[facility] Fhkjohsvti1457 [place], [place] [address]Rk. Kalie Bess CULTURE BLOODon 11-21-2022 Microscopic examination of blood, culture Culture Observations: NO GROWTH AT 5 DAYS. Normal [facility] Comment on above: Performed By: #### B LDCX2 ####[facility] Ncfzwnevvs3221 [place], [place] [address]Fx. Kalie Bess Microscopic examination of blood, culture Culture Observations: NO GROWTH AT 5 DAYS. Normal [facility] Comment on above: Performed By: #### B LDCX1 ####[facility] Dmwwolelzw9223 [place], [place] [address]Vg. Kalie Bess Covid-19 PCR (CVDTBH)on 10-27 SARS-CoV-2 (COVID-19) RNA CIPRIANO+probe Ql (Unsp spec) Not detected Normal NOT DETECTED The [facility] Comment on above: Result Comment: When diagnostic [...] for this test is supported by the Surgical Services Director of Health and Human Service's declaration that [...] Performed By: #### C VDTBH ####[facility] Tcdemiwhps[address] [place], [place] [address]Dr. Kalie Bess LACTATE/LACTIC ACIDon 2022 Lactate [Moles/Vol] 1.1 mmol/L Normal 0.4-1.9 [facility] Comment on above: Performed By: #### L ACT ####[facility] Avywktxrbs[address] [place], [place] [address]Dr. Kalie Bess Lactate [Moles/Vol] 2.2 mmol/L Critically high 0.4-1.9 [facility] Comment on above: Performed By: #### L ACT ####[facility] Unnjttaiyv[address] [place], [place] [address]Dr. Kalie Bess POINT OF CARE GLUCOSEon 10-27 Glucose [Mass/Vol] 343 mg/dL Critically high 74-106 [facility] Comment on above: Performed By: #### P OCGLUC ####[facility] Pxhycztrdi7850 [place] [address]Dr. Kalie Bess PROF 14(COMP METB)on 023 Albumin [Mass/Vol] 2.0 g/dL Critically low 3.4-5.0 [facility] Comment on above: Performed By: #### C MP ####[facility] Ptzquhfbqk9614 [place] [address]Dr. Kalie Bess Albumin/Globulin [Mass ratio] 0.4 {ratio} Normal [facility] Comment on above: Performed By: #### C MP ####[facility] Qelamlqyyj7764 [place] [address]Dr. Shayyroxie Shahriar ALP [Catalytic activity/Vol] 126 U/L Critically high 46-116 [facility] Comment on above: Performed By: #### C MP ####[facility] Lxruzslfrh3421 [place] [address]Dr. Kalie Bess ALT [Catalytic activity/Vol] 35 U/L Normal 14-59 [facility] Comment on above: Performed By: #### C MP ####[facility] Izubkacnwv[address] [place], [place] [address]Dr. Kalie Bess Anion gap [Moles/Vol] 14.6 mmol/L Normal [facility] Comment on above: Performed By: #### C MP ####[facility] Aizpilbqhc[address] [place], [place] [address]Dr. Kalie Bess AST [Catalytic activity/Vol] 27 U/L Normal 15-37 [facility] Comment on above: Performed By: #### C MP ####[facility] Eqpeisdqps[address] [place], [place] [address]Dr. Kalie Bess Bilirubin [Mass/Vol] 0.3 mg/dL Normal 0.2-1.0 [facility] Comment on above: Performed By: #### C MP ####[facility] Yrgegceubx1787 [place] [address]Dr. Kalie Bess Calcium [Mass/Vol] 8.9 mg/dL Normal 8.5-10.1 [facility] Comment on above: Performed By: #### C MP ####[facility] Ukvghemtsb7666 [place] [address]Dr. Kalie Bess Chloride [Moles/Vol] 92 mmol/L Critically low 98-107 [facility] Comment on above: Performed By: #### C MP ####[facility] Wiacfxkjxu3539 [place] [id number]. Kalie Bess CO2 [Moles/Vol] 27.2 mmol/L Normal 21.0-32.0 [facility] Comment on above: Performed By: #### C MP ####[facility] Nauuusciqq8905 [place] [id number]. Kalie Bess Creatinine [Mass/Vol] 2.03 mg/dL Critically high 0.55-1.02 [facility] Comment on above: Performed By: #### C MP ####[facility] Xcyblszkku3545 [place] [id number]. Kalie Bess EGFR-AF PAPUA NEW GUINEAN 31 mL/min/1.73m2 Critically low >=60 [facility] Comment on above: Performed By: #### C MP ####[facility] Tffwvgiqct0960 [place] [address]Dr. Kalie Bess EGFR-NON AF PAPUA [place] 26 mL/min/1.73m2 Critically low >=60 [facility] Comment on above: Performed By: #### C MP ####[facility] Scupzwhzab9698 [place] [address]Dr. Kalie Bess Globulin (S) [Mass/Vol] 4.9 g/dL Normal [facility] Comment on above: Performed By: #### C MP ####[facility] Rglbbhmern2771 [place] [address]Dr. Kalie Bess Glucose [Mass/Vol] 329 mg/dL Critically high 74-106 [facility] Comment on above: Performed By: #### C MP ####[facility] Dsacpemnap9616 [place] [phone]. Kalie Bess Potassium [Moles/Vol] 3.8 mmol/L Normal 3.5-5.1 [facility] Comment on above: Performed By: #### C MP ####[facility] Hydbblykkd1742 [place] [phone]. Kalie Bess Protein [Mass/Vol] 6.9 g/dL Normal 6.4-8.2 [facility] Comment on above: Performed By: #### C MP ####[facility] Irvzygsxcc[address] [place], [place] [address]Dr. Kalie Bess Sodium [Moles/Vol] 130 mmol/L Critically low 136-145 [facility] Comment on above: Performed By: #### C MP ####[facility] Gbdfholten[address] [place], [place] [address]Dr. Kalie Bess Urea nitrogen [Mass/Vol] 52.0 mg/dL Critically high 7.0-18.0 [facility] Comment on above: Performed By: #### C MP ####[facility] Arbykeuhhc[address] [place], [place] [address]Dr. Kalie Bess Urea nitrogen/Creatinine [Mass ratio] 25.6 mg/mg Normal [facility] Comment on above: Performed By: #### C MP ####[facility] Ybjzaxbatw[address] [place], [place] [address]Dr. Kalie Bess PROTIMEon 11-21-2022 INR Coag (PPP) [Relative time] 1.03 {INR} Normal [facility] Comment on above: Performed By: #### P T, PTT ####[facility] [address]egxsgpemf[address] [place], [place] [address]Dr. Kalie Bess INR GUIDELINES SEE BELOW Normal [facility] Comment on above: Result Comment: GABRIELLA RED INR: 2.0 - 3.0 CONDITIONS NOT LISTED BELOW 2.5 - 3.5 FOR PROSTHETIC HEART VALVE REPLACEMENT 2.5 - 3.5 RECURRENT THROMBOSIS Performed By: #### P T, PTT ####[facility] Aagmryiphw7[address] [place], [place] [address]Dr. Kalie Bess PT Coag (PPP) [Time] 10.9 s Normal 9.0-11.6 [facility] Comment on above: Performed By: #### P T, PTT ####[facility] Qkopmzwzvp[address] [place], [place] [address]Dr. Kalie Bess PTTon 11-21-2022 aPTT Coag (Bld) [Time] 27.3 s Normal 22.3-36.2 [facility] Comment on above: Performed By: #### P T, PTT ####[facility] Pkaicjztnu7729 [place] [id number]. Kalie Bess SED RATE [facility] ISLANDRENon 2022 SED RATE 63 mm/hr Critically high <=30 [facility] Comment on above: Performed By: #### S EDR ####[facility] [address]omds[address] [place], [place] [id number]. Kalie Bess ACID FAST SMEAR AND CXon Acid Fast Culture Negative Normal [facility] Comment on above: Result Comment: No a junior fast bacilli isolated after 6 weeks. Performed By: #### A FB ####[facility] [address]mlhzarhx[address] [place], [place] [address]Dr. Kalie Bess Acid Fast Smear Negative Normal [facility] Comment on above: Performed By: #### A FB ####[facility] Hdilgtdwuq[address] [place], [place] [address]Dr. Kalie Bess AF[employer] Specimen Processing Direct Inoculation [facility] Comment on above: Performed By: #### A FB ####[facility] Ltogfhawnn[address] [place], [place] [address]Dr. Kalie Bess FUNGAL CULTUREon 09-01-2022 Fungus (Mycology) Culture Final report Normal [facility] Comment on above: Performed By: #### C XFUN ####[facility] Qbxmwtadyv[address] [place], [place] [address]Dr. Kalie Bess Fungus Stain Final report Normal [facility] Comment on above: Performed By: #### C XFUN ####[facility] Imfoqwjbil8[address] [place], [place] [address]Dr. Kalie Bess Result 1 Comment Normal [facility] Comment on above: Result Comment: GILMA/ Calcofluor preparation: no fungus observed. Performed By: #### C XFUN ####[facility] Qdsarfuatk[address] [place], [place] [address]Dr. Kalie Bess Result Comment: No y east or mold isolated after 4 weeks. BNPon 08-05-2022 Natriuretic peptide B (Bld) [Mass/Vol] 3827.0 pg/mL Critically high <=900.0 [facility] Comment on above: Performed By: #### B MP, BNP ####[facility] Mqxdiwudjo8[address] [place], [place] [address]Dr. Kalie Shahriar CBC AUTO DIFFon 08-05-2022 BASO # 0.0 103/ul Normal 0.0-0.1 [facility] Comment on above: Performed By: #### C BC ####[facility] Jpmllejfkf[address] [place], [place] [address]Dr. Kalie Shahriar Basophils/100 WBC (Bld) 0.1 % Critically low 0.2-2.0 The [facility] Comment on above: Performed By: #### C BC ####[facility] Fmnbfvvqum7[address] [place], [place] [address]Dr. Kalie Shahriar EO # 0.0 103/ul Normal 0.0-0.7 The [facility] Comment on above: Performed By: #### C BC ####[facility] Kwpzrkxgch8[address] [place], [place] [address]Dr. Kalie Shahriar Eosinophils/100 WBC (Bld) 0.0 % Critically low 0.9-7.0 The [facility] Comment on above: Performed By: #### C BC ####[facility] Wkozohofdj[address] [place], [place] [address]Dr. Kalie Shahriar Erythrocyte distribution width (RBC) [Ratio] 13.9 % Normal 11.0-15.0 The [facility] Comment on above: Performed By: #### C BC ####[facility] Jgwjlvsfvj[address] [place], [place] [address]Dr. Kalie Shahriar Hematocrit (Bld) [Volume fraction] 32.9 % Critically low 36.0-48.0 The [facility] Comment on above: Performed By: #### C BC ####[facility] Ibkvbmmzmn[address] [place], [place] [address]Dr. Kalie Shahriar Hemoglobin (Bld) [Mass/Vol] 10.5 g/dL Critically low 12.0-16.0 The [facility] Comment on above: Performed By: #### C BC ####[facility] Tnwqtmkivr[address] [place], [place] [address]Dr. Kalie Bess IG # 0.11 10e3/ul Critically high 0.00-0.03 [facility] Comment on above: Performed By: #### C BC ####[facility] [address] [place] [address]DrCassie Kalie Bess IG % 0.7 % Critically high 0.0-0.5 [facility] Comment on above: Performed By: #### C BC ####[facility] Rdhdwwognl[address] [place] [address]DrCassie Kalie Shahriar LYMPH # 1.6 103/ul Normal 1.2-3.8 [facility] Comment on above: Performed By: #### C BC ####[facility] Xmj[address]hhjx[address] [place] [address]DrCassie Kalie Shahriar Lymphocytes/100 WBC (Bld) 9.5 % Critically low 20.5-60.0 [facility] Comment on above: Performed By: #### C BC ####[facility] [address] [place] [address]DrCassie Kalie Shahriar MANUAL DIFF REQ NO Normal [facility] Comment on above: Performed By: #### C BC ####[facility] Qsngqlefcy65[address] [place] [address]DrCassie Kalie Bess MCH (RBC) [Entitic mass] 28.7 pg Normal 26.7-34.0 [facility] Comment on above: Performed By: #### C BC ####[facility] Jmpuhgeaix[address] [place] [address]DrCassie Kalie Bess MCHC (RBC) [Mass/Vol] 31.9 g/dL Normal 29.9-35.2 [facility] Comment on above: Performed By: #### C BC ####[facility] Sm[address]mykdteg47[address] [place] [address]DrCassie Kalie Shahriar MCV (RBC) [Entitic vol] 89.9 fL Normal 81.0-99.0 [facility] Comment on above: Performed By: #### C BC ####[facility] Gfodmabyie[address] [place] [address]Dr. Kalie Bess MONO # 0.5 103/ul Normal 0.3-0.8 [facility] Comment on above: Performed By: #### C BC ####[facility] C[address]kawe[address] [place] [address]Dr. Kalie Bess Monocytes/100 WBC (Bld) 2.9 % Normal 1.7-12.0 [facility] Comment on above: Performed By: #### C BC ####[facility] Fwatbxngam27[address] [place] [address]Dr. Kalie Bess NEUT # 14.5 103/ul Critically high 1.4-6.5 [facility] Comment on above: Performed By: #### C BC ####[facility] Wfbqtxhwiy6[address] [place], [place] [address]Dr. Kalie Shahriar Neutrophils/100 WBC (Bld) 86.8 % Critically high 43.0-75.0 [facility] Comment on above: Performed By: #### C BC ####[facility] Lajckskfdj4[address] [place], [place] [address]Dr. Kalie Bess Platelet mean volume (Bld) [Entitic vol] 12.0 fL Normal 9.5-13.5 [facility] Comment on above: Performed By: #### C BC ####[facility] [address]we[address]sh[address] [place] [address]Dr. Kalie Shahriar PLT 245 103/ul Normal 150-450 [facility] Comment on above: Performed By: #### C BC ####[facility] Pugcuhvtel[address] [place] [address]Dr. Kalie Bess RBC 3.66 106/ul Critically low 4.20-5.40 [facility] Comment on above: Performed By: #### C BC ####[facility] Wobscvvfuj[address] [place], [place] [address]Dr. Shayyroxie Shahriar WBC 16.7 103/ul Critically high 4.0-11.0 [facility] Comment on above: Performed By: #### C BC ####[facility] Iijvletlsf[address] [place] [address]Dr. Kalie Bess PROF CHEM 8 (BAS METB)on Anion gap [Moles/Vol] 10.1 mmol/L Normal [facility] Comment on above: Performed By: #### B MP, BNP ####[facility] Knycnrnonr18[address] [place], [place] [address]Dr. Kalie Bess Calcium [Mass/Vol] 8.4 mg/dL Critically low 8.5-10.1 [facility] Comment on above: Performed By: #### B MP, BNP ####[facility] Lbbrakzftb[address] [place], [place] [address]Dr. Kalie Bess Chloride [Moles/Vol] 96 mmol/L Critically low 98-107 [facility] Comment on above: Performed By: #### B MP, BNP ####[facility] Npmsjqgyop295[address] [place], [place] [address]Dr. Kalie Bess CO2 [Moles/Vol] 36.0 mmol/L Critically high 21.0-32.0 [facility] Comment on above: Performed By: #### B MP, BNP ####[facility] Dsbzuzfcxa9896[address] [place], [place] [address]Dr. Kalie Bess Creatinine [Mass/Vol] 1.64 mg/dL Critically high 0.55-1.02 [facility] Comment on above: Performed By: #### B MP, BNP ####[facility] Vputdtuhch6918[address] [place], [place] [address]Dr. Kalie Bess EGFR-AF PAPUA NEW GUINEAN 40 mL/min/1.73m2 Critically low >=60 [facility] Comment on above: Performed By: #### B MP, BNP ####[facility] Jkkrybpiga89[address] [place], [place] [address]Dr. Kalie Bess EGFR-NON AF PAPUA [place] GUINEAN 33 mL/min/1.73m2 Critically low >=60 [facility] Comment on above: Performed By: #### B MP, BNP ####[facility] Kvjgnbdiqv[address] [place], [place] [address]Dr. Kalie Bess Glucose [Mass/Vol] 279 mg/dL Critically high 74-106 [facility] Comment on above: Performed By: #### B MP, BNP ####[facility] Vgompfgzyp3204[address] [place], [place] [address]Dr. Shayyroxie Shahriar Potassium [Moles/Vol] 4.1 mmol/L Normal 3.5-5.1 [facility] Comment on above: Performed By: #### B MP, BNP ####[facility] Ymevfyplva7588[address] [place], [place] [address]Dr. Kalie Bess Sodium [Moles/Vol] 138 mmol/L Normal 136-145 [facility] Comment on above: Performed By: #### B MP, BNP ####[facility] Edyrkjfhbi3032[address] [place], [place] [address]Dr. Kalie Bess Urea nitrogen [Mass/Vol] 36.0 mg/dL Critically high 7.0-18.0 [facility] Comment on above: Performed By: #### B MP, BNP ####[facility] Cnwuawscso6[address] [place], [place] [address]Dr. Kalie Bess Urea nitrogen/Creatinine [Mass ratio] 22.0 mg/mg Normal [facility] Comment on above: Performed By: #### B MP, BNP ####[facility] Peqejbylsj7[address] [place], [place] [address]Dr. Kalie Shahriar BNPon 08-04-2022 Natriuretic peptide B (Bld) [Mass/Vol] 2969.0 pg/mL Critically high <=900.0 [facility] Comment on above: Performed By: #### B [employer] ####[facility] Hzkpjkesoz1940[address] [place], [place] [address]Dr. Kalie Shahriar CBC AUTO DIFFon 08-04-2022 BASO # 0.0 103/ul Normal 0.0-0.1 [facility] Comment on above: Performed By: #### C BC ####[facility] Ppjpywaezx60[address] [place], [place] [address]Dr. Kalie Bess Basophils/100 WBC (Bld) 0.2 % Normal 0.2-2.0 [facility] Comment on above: Performed By: #### C BC ####[facility] Dqtglebljq5947[address] [place], [place] [address]Dr. Kalie Bess EO # 0.0 103/ul Normal 0.0-0.7 [facility] Comment on above: Performed By: #### C BC ####[facility] Ox[address]ouqrb36[address] [place] [address]Dr. Kalie Bess Eosinophils/100 WBC (Bld) 0.1 % Critically low 0.9-7.0 [facility] Comment on above: Performed By: #### C BC ####[facility] [address]zrgxnwbfn[address] [place] [address]Dr. Kalie Bess Erythrocyte distribution width (RBC) [Ratio] 13.9 % Normal 11.0-15.0 [facility] Comment on above: Performed By: #### C BC ####[facility] Uwniiuqgsd27[address] [place], [place] [address]Dr. Kalie Bess Hematocrit (Bld) [Volume fraction] 33.4 % Critically low 36.0-48.0 [facility] Comment on above: Performed By: #### C BC ####[facility] Nnqkdtxuzh0[address] [place], [place] [address]Dr. Kalie Bess Hemoglobin (Bld) [Mass/Vol] 10.6 g/dL Critically low 12.0-16.0 [facility] Comment on above: Performed By: #### C BC ####[facility] Cqrlwltayl[address] [place], [place] [address]Dr. Kalie Bess IG # 0.12 10e3/ul Critically high 0.00-0.03 [facility] Comment on above: Performed By: #### C BC ####[facility] Sm[address]utzspqi8[address] [place] [address]Dr. Kalie Bess IG % 1.0 % Critically high 0.0-0.5 [facility] Comment on above: Performed By: #### C BC ####[facility] Ryeviborfs[address] [place] [address]Dr. Kalie Bess LYMPH # 1.4 103/ul Normal 1.2-3.8 [facility] Comment on above: Performed By: #### C BC ####[facility] Ddsypowzkd17[address] [place] [address]Dr. Shayyroxie Bess Lymphocytes/100 WBC (Bld) 11.1 % Critically low 20.5-60.0 [facility] Comment on above: Performed By: #### C BC ####[facility] Yrdkcrorpi35[address] [place] [address]Dr. Shayyroxie Bess MANUAL DIFF REQ NO Normal [facility] Comment on above: Performed By: #### C BC ####[facility] Jxfvqvojdh07[address] [place] [address]Dr. Shayyroxie Bess MCH (RBC) [Entitic mass] 28.4 pg Normal 26.7-34.0 [facility] Comment on above: Performed By: #### C BC ####[facility] Nwxsjvkdhk9[address] [place], [place] [address]Dr. Kalie Bess MCHC (RBC) [Mass/Vol] 31.7 g/dL Normal 29.9-35.2 [facility] Comment on above: Performed By: #### C BC ####[facility] Emegqqhpjh1523[address] [place], [place] [address]Dr. Kalie Bess MCV (RBC) [Entitic vol] 89.5 fL Normal 81.0-99.0 [facility] Comment on above: Performed By: #### C BC ####[facility] Eyxsjumqab6832[address] [place], [place] [address]Dr. Kalie Bess MONO # 0.3 103/ul Normal 0.3-0.8 [facility] Comment on above: Performed By: #### C BC ####[facility] Znfkshebpl5527[address] [place], [place] [address]Dr. Kalie Bess Monocytes/100 WBC (Bld) 2.2 % Normal 1.7-12.0 [facility] Comment on above: Performed By: #### C BC ####[facility] Trbngyzpqw6880[address] [place], [place] [address]Dr. Kalie Bess NEUT # 10.8 103/ul Critically high 1.4-6.5 [facility] Comment on above: Performed By: #### C BC ####[facility] R[address]owyec36[address] [place] [id number]. Kalie Bess Neutrophils/100 WBC (Bld) 85.4 % Critically high 43.0-75.0 [facility] Comment on above: Performed By: #### C BC ####[facility] Qqcswaqdfi0809 [place] [id number]. Kalie Bess Platelet mean volume (Bld) [Entitic vol] 11.9 fL Normal 9.5-13.5 [facility] Comment on above: Performed By: #### C BC ####[facility] Asagkrsgky94[address] [place] [id number]. Kalie Bess PLT 256 103/ul Normal 150-450 [facility] Comment on above: Performed By: #### C BC ####[facility] Vhphmrspwx2294[address] [place], [place] [address]Dr. Kalie Bess RBC 3.73 106/ul Critically low 4.20-5.40 [facility] Comment on above: Performed By: #### C BC ####[facility] Fqgyqqxmtc7835[address] [place], [place] [address]Dr. Kalie Bess WBC 12.6 103/ul Critically high 4.0-11.0 [facility] Comment on above: Performed By: #### C BC ####[facility] Owtiktwrio[address] [place], [place] [id number]. Kalie Shahriar PH, BODY FLUIDon 08-04-2022 pH, Body Fluid 7.7 Normal Not Estab. [facility] Comment on above: Result Comment: The reference interval(s) and other method performance specificationshave not been established for this body fluid. The test result must beintegrated into the clinical context for interpretation. Performed By: #### B DYFLPH ####[facility] Dzqjuphiju7[address] [place], [place] [address]Dr. Kalie Shahriar POINT OF CARE GLUCOSEon 07-26 Glucose [Mass/Vol] 355 mg/dL Critically high 74-106 [facility] Comment on above: Performed By: #### P OCGLUC ####[facility] Nmwpyrdsdp306[address] [place], [place] [address]Dr. Kalie Shahriar Glucose [Mass/Vol] 405 mg/dL Critically high 74-106 [facility] Comment on above: Performed By: #### P OCGLUC ####[facility] Trtacskbpa2367[address] [place], [place] [address]Dr. Kalie Bess Glucose [Mass/Vol] 351 mg/dL Critically high 74-106 [facility] Comment on above: Performed By: #### P OCGLUC ####[facility] Vspwarddwp3[address] [place], [place] [address]Dr. Shayyroxie Bess PROF CHEM 8 (BAS METB)on Anion gap [Moles/Vol] 10.1 mmol/L Normal [facility] Comment on above: Performed By: #### B MP ####[facility] Uhhofuagyu[address] [place], [place] [address]Dr. Kalie Bess Calcium [Mass/Vol] 8.6 mg/dL Normal 8.5-10.1 [facility] Comment on above: Performed By: #### B MP ####[facility] Pwcdjvosbe7[address] [place], [place] [address]Dr. Kalie Bess Chloride [Moles/Vol] 99 mmol/L Normal 98-107 [facility] Comment on above: Performed By: #### B MP ####[facility] Plgqjyploo8[address] [place], [place] [address]Dr. Kalie Bess CO2 [Moles/Vol] 33.0 mmol/L Critically high 21.0-32.0 [facility] Comment on above: Performed By: #### B MP ####[facility] Cvjnbyxueg01[address] [place], [place] [address]Dr. Kalie Bess Creatinine [Mass/Vol] 1.54 mg/dL Critically high 0.55-1.02 [facility] Comment on above: Performed By: #### B MP ####[facility] Zzduldvvka35[address] [place], [place] [address]Dr. Kalie Bess EGFR-AF PAPUA NEW GUINEAN 43 mL/min/1.73m2 Critically low >=60 [facility] Comment on above: Performed By: #### B MP ####[facility] [address]fvvnqs[address] [place] [address]Dr. Kalie Bess EGFR-NON AF PAPUA [place] GU[place]AN 36 mL/min/1.73m2 Critically low >=60 [facility] Comment on above: Performed By: #### B MP ####[facility] Lrjmgypqgv[address] [place] [address]Dr. Kalie Bess Glucose [Mass/Vol] 264 mg/dL Critically high 74-106 [facility] Comment on above: Performed By: #### B MP ####[facility] Qofwptwrsr15[address] [place] [address]Dr. Kalie Bess Potassium [Moles/Vol] 4.1 mmol/L Normal 3.5-5.1 [facility] Comment on above: Performed By: #### B MP ####[facility] Iywwsthahf[address] [place], [place] [address]Dr. Kalie Bess Sodium [Moles/Vol] 138 mmol/L Normal 136-145 [facility] Comment on above: Performed By: #### B MP ####[facility] Fkpjvczcic7[address] [place], [place] [address]Dr. Kalie Shahriar Urea nitrogen [Mass/Vol] 27.0 mg/dL Critically high 7.0-18.0 [facility] Comment on above: Performed By: #### B MP ####[facility] Ahncokyhdw[address] [place], [place] [address]Dr. Shayyroxie Shahriar Urea nitrogen/Creatinine [Mass ratio] 17.5 mg/mg Normal [facility] Comment on above: Performed By: #### B MP ####[facility] Ebyzeyafpc6[address] [place], [place] [address]Dr. Kalie Shahriar XR CHEST 2 Von 08-04-2022 XR CHEST 2 V Normal [facility] CBC AUTO DIFFon 08-03-2022 BASO # 0.1 103/ul Normal 0.0-0.1 [facility] Comment on above: Performed By: #### C BC ####[facility] Yqvenmvafn[address]43[address] [place], [place] [address]Dr. Kalie Bess Basophils/100 WBC (Bld) 0.4 % Normal 0.2-2.0 [facility] Comment on above: Performed By: #### C BC ####[facility] Dxmkafqzmp[address] [place] [address]Dr. Kalie Bess EO # 0.6 103/ul Normal 0.0-0.7 [facility] Comment on above: Performed By: #### C BC ####[facility] Xzrrtuqnny8[address] [place] [address]Dr. Kalie Bess Eosinophils/100 WBC (Bld) 4.3 % Normal 0.9-7.0 [facility] Comment on above: Performed By: #### C BC ####[facility] Jaeqxdjrxa14[address] [place], [place] [address]Dr. Kalie Bess Erythrocyte distribution width (RBC) [Ratio] 14.2 % Normal 11.0-15.0 [facility] Comment on above: Performed By: #### C BC ####[facility] Gmhjkewvja[address] [place], [place] [address]Dr. Kalie Bess Hematocrit (Bld) [Volume fraction] 32.1 % Critically low 36.0-48.0 [facility] Comment on above: Performed By: #### C BC ####[facility] Oztdwafmpf6[address] [place], [place] [address]Dr. Kalie Bess Hemoglobin (Bld) [Mass/Vol] 10.3 g/dL Critically low 12.0-16.0 [facility] Comment on above: Performed By: #### C BC ####[facility] J[address]zsbild[address] [place], [place] [address]Dr. Kalie Bess IG # 0.06 10e3/ul Critically high 0.00-0.03 [facility] Comment on above: Performed By: #### C BC ####[facility] Edbxhdieqt60[address] [place], [place] [address]Dr. Kalie Bess IG % 0.4 % Normal 0.0-0.5 [facility] Comment on above: Performed By: #### C BC ####[facility] Oiwpzwmhoq[address] [place], [place] [address]DrCassie Shayyroxie Bess LYMPH # 3.0 103/ul Normal 1.2-3.8 [facility] Comment on above: Performed By: #### C BC ####[facility] T[address]ypcoqla[address] [place] [id number]. Kalie Shahriar Lymphocytes/100 WBC (Bld) 21.0 % Normal 20.5-60.0 [facility] Comment on above: Performed By: #### C BC ####[facility] Farildmpiv36[address] [place] [id number]. Kalie Bess MANUAL DIFF REQ NO Normal [facility] Comment on above: Performed By: #### C BC ####[facility] Khxceekzdz8271 [place] [id number]. Shayyroxie Bess MCH (RBC) [Entitic mass] 28.9 pg Normal 26.7-34.0 [facility] Comment on above: Performed By: #### C BC ####[facility] Ij[address]qqmorsm[address] [place], [place] [address]Dr. Kalie Bess MCHC (RBC) [Mass/Vol] 32.1 g/dL Normal 29.9-35.2 [facility] Comment on above: Performed By: #### C BC ####[facility] [address]vfv[address] [place], [place] [id number]. Shayyroxie Bess MCV (RBC) [Entitic vol] 89.9 fL Normal 81.0-99.0 [facility] Comment on above: Performed By: #### C BC ####[facility] Ffthfumgnp[address] [place] [address]Dr. Kalie Bess MONO # 1.0 103/ul Critically high 0.3-0.8 [facility] Comment on above: Performed By: #### C BC ####[facility] Bfhuoopree83[address] [place] [id number]. Kalie Bess Monocytes/100 WBC (Bld) 6.9 % Normal 1.7-12.0 [facility] Comment on above: Performed By: #### C BC ####[facility] Ysxdfokswj[address] [place], [place] [id number]. Kalie Bess NEUT # 9.5 103/ul Critically high 1.4-6.5 [facility] Comment on above: Performed By: #### C BC ####[facility] Jssuizfsek9[address] [place] [address]Dr. Kalie Bess Neutrophils/100 WBC (Bld) 67.0 % Normal 43.0-75.0 [facility] Comment on above: Performed By: #### C BC ####[facility] Hbzhgjgjoj34[address] [place] [address]Dr. Kalie Bess Platelet mean volume (Bld) [Entitic vol] 11.6 fL Normal 9.5-13.5 [facility] Comment on above: Performed By: #### C BC ####[facility] Nrcbdhmdmo[address] [place] [address]Dr. Kalie Bess PLT 227 103/ul Normal 150-450 [facility] Comment on above: Performed By: #### C BC ####[facility] Tfbdnfudgj01[address] [place] [address]Dr. Kalie Bess RBC 3.57 106/ul Critically low 4.20-5.40 [facility] Comment on above: Performed By: #### C BC ####[facility] Jrvhzrqlrd[address] [place], [place] [id number]. Kalie Bess WBC 14.1 103/ul Critically high 4.0-11.0 [facility] Comment on above: Performed By: #### C BC ####[facility] Hcpygccoux5[address] [place] [id number]. Shayyroxie Shahriar POINT OF CARE GLUCOSEon 10-0 Glucose [Mass/Vol] 340 mg/dL Critically high 74-106 [facility] Comment on above: Performed By: #### P OCGLUC ####[facility] Dzkrfycokz[address] [place], [place] [address]Dr. Shayyroxie Shahriar Glucose [Mass/Vol] 270 mg/dL Critically high 74-106 [facility] Comment on above: Performed By: #### P OCGLUC ####[facility] Druiswdhnf82[address] [place] [id number]. Shayyroxie Shahriar Glucose [Mass/Vol] 176 mg/dL Critically high 74-106 [facility] Comment on above: Performed By: #### P OCGLUC ####[facility] Fkeyylclkg[address] [place], [place] [address]Dr. Kalie Bess Glucose [Mass/Vol] 178 mg/dL Critically high 74-106 [facility] Comment on above: Performed By: #### P OCGLUC ####[facility] Jbmaxylumx[address] [place], [place] [address]Dr. Kalie Bess PROF CHEM 8 (BAS METB)on Anion gap [Moles/Vol] 5.7 mmol/L Normal [facility] Comment on above: Performed By: #### B MP ####[facility] Niqtzuozan[address] [place], [place] [address]Dr. Kalie Bess Calcium [Mass/Vol] 8.4 mg/dL Critically low 8.5-10.1 [facility] Comment on above: Performed By: #### B MP ####[facility] Hgtwgtlakj[address] [place], [place] [address]Dr. Kalie Bess Chloride [Moles/Vol] 100 mmol/L Normal 98-107 [facility] Comment on above: Performed By: #### B MP ####[facility] Gtscmicngf[address] [place], [place] [address]Dr. Kalie Bess CO2 [Moles/Vol] 34.0 mmol/L Critically high 21.0-32.0 [facility] Comment on above: Performed By: #### B MP ####[facility] Aynkdofhzw[address] [place], [place] [address]Dr. Kalie Bess Creatinine [Mass/Vol] 1.25 mg/dL Critically high 0.55-1.02 [facility] Comment on above: Performed By: #### B MP ####[facility] Znhrgniyfk8872[address] [place], [place] [address]Dr. Kalie Bess EGFR-AF PAPUA NEW GUINEAN 55 mL/min/1.73m2 Critically low >=60 [facility] Comment on above: Performed By: #### B MP ####[facility] Qmvadgwhpi29[address] [place], [place] [address]Dr. Kalie Bess EGFR-NON AF PAPUA [place] 45 mL/min/1.73m2 Critically low >=60 [facility] Comment on above: Performed By: #### B MP ####[facility] Aualwkimif94[address] [place] [address]Dr. Kalie Bess Glucose [Mass/Vol] 193 mg/dL Critically high 74-106 [facility] Comment on above: Performed By: #### B MP ####[facility] Vhcvahpgqq6[address] [place], [place] [address]Dr. Shayyroxie Shahriar Potassium [Moles/Vol] 3.7 mmol/L Normal 3.5-5.1 [facility] Comment on above: Performed By: #### B MP ####[facility] Yxeztsqxaq7[address] [place], [place] [address]Dr. Kalie Bess Sodium [Moles/Vol] 136 mmol/L Normal 136-145 [facility] Comment on above: Performed By: #### B MP ####[facility] Fikqcmcxpj[address] [place], [place] [address]Dr. Shayyroxie Shahriar Urea nitrogen [Mass/Vol] 24.0 mg/dL Critically high 7.0-18.0 [facility] Comment on above: Performed By: #### B MP ####[facility] Dgedglufwd39[address] [place], [place] [address]Dr. Kalie Bess Urea nitrogen/Creatinine [Mass ratio] 19.2 mg/mg Normal [facility] Comment on above: Performed By: #### B MP ####[facility] Dcbclabbgp25[address] [place], [place] [address]Dr. Shayyroxie Shahriar XR CHEST 2 Von 08-03-2022 XR CHEST 2 V Normal [facility] CBC AUTO DIFFon 08-02-2022 BASO # 0.1 103/ul Normal 0.0-0.1 [facility] Comment on above: Performed By: #### C BC ####[facility] Ajvkarswuk[address] [place], [place] [address]Dr. Kalie Bess Basophils/100 WBC (Bld) 0.4 % Normal 0.2-2.0 [facility] Comment on above: Performed By: #### C BC ####[facility] Pfwbevzxos99[address] [place] [id number]. Kalie Bess EO # 0.5 103/ul Normal 0.0-0.7 [facility] Comment on above: Performed By: #### C BC ####[facility] Ypkjzhdrjd6874 [place] [id number]. Kalie Bess Eosinophils/100 WBC (Bld) 4.0 % Normal 0.9-7.0 [facility] Comment on above: Performed By: #### C BC ####[facility] Oirlmfbnxw8640[address] [place], [place] [address]Dr. Kalie Bess Erythrocyte distribution width (RBC) [Ratio] 14.1 % Normal 11.0-15.0 [facility] Comment on above: Performed By: #### C BC ####[facility] Cukiblcpah[address] [place], [place] [address]Dr. Kalie Bess Hematocrit (Bld) [Volume fraction] 32.4 % Critically low 36.0-48.0 [facility] Comment on above: Performed By: #### C BC ####[facility] Pyppszsjoe50[address] [place], [place] [address]Dr. Kalie Bess Hemoglobin (Bld) [Mass/Vol] 10.7 g/dL Critically low 12.0-16.0 [facility] Comment on above: Performed By: #### C BC ####[facility] Vsxeaixkya[address] [place], [place] [address]Dr. Kalie Bess IG # 0.08 10e3/ul Critically high 0.00-0.03 [facility] Comment on above: Performed By: #### C BC ####[facility] Eggocqxvoy60[address] [place], [place] [address]Dr. Kalie Bess IG % 0.6 % Critically high 0.0-0.5 [facility] Comment on above: Performed By: #### C BC ####[facility] Nwdrrilxor[address] [place], [place] [address]Dr. Kalie Bess LYMPH # 2.9 103/ul Normal 1.2-3.8 [facility] Comment on above: Performed By: #### C BC ####[facility] Gqznftdonl9[address] [place] [id number]. Kalie Bess Lymphocytes/100 WBC (Bld) 21.3 % Normal 20.5-60.0 [facility] Comment on above: Performed By: #### C BC ####[facility] Irlfnmrsdj73[address] [place] [id number]. Kalie Bess MANUAL DIFF REQ NO Normal [facility] Comment on above: Performed By: #### C BC ####[facility] Zmjlejqjvh[address] [place] [id number]. Kalie Bess MCH (RBC) [Entitic mass] 28.8 pg Normal 26.7-34.0 [facility] Comment on above: Performed By: #### C BC ####[facility] Knlpputibk96[address] [place] [id number]. Kalie Bess MCHC (RBC) [Mass/Vol] 33.0 g/dL Normal 29.9-35.2 [facility] Comment on above: Performed By: #### C BC ####[facility] Vcjlmsxato9959 [place] [id number]. Kalie Bess MCV (RBC) [Entitic vol] 87.3 fL Normal 81.0-99.0 [facility] Comment on above: Performed By: #### C BC ####[facility] Gozhwgkmlu3802 [place] [id number]. Kalie Bess MONO # 0.9 103/ul Critically high 0.3-0.8 [facility] Comment on above: Performed By: #### C BC ####[facility] Ptoktvrdtz0506 [place] [id number]. Kalie Bess Monocytes/100 WBC (Bld) 6.9 % Normal 1.7-12.0 [facility] Comment on above: Performed By: #### C BC ####[facility] Jdxaddrwsy[address] [place] [id number]. Kalie Bess NEUT # 9.0 103/ul Critically high 1.4-6.5 [facility] Comment on above: Performed By: #### C BC ####[facility] Qnffywgrqt7239 [place] [id number]. Kalie Bess Neutrophils/100 WBC (Bld) 66.8 % Normal 43.0-75.0 [facility] Comment on above: Performed By: #### C BC ####[facility] Trqsavzjuv90[address] [place], [place] [address]Rx. Kalie Bess Platelet mean volume (Bld) [Entitic vol] 11.6 fL Normal 9.5-13.5 [facility] Comment on above: Performed By: #### C BC ####[facility] Msutjjzfqn0705 [place] [id number]. Kalie Bess PLT 241 103/ul Normal 150-450 [facility] Comment on above: Performed By: #### C BC ####[facility] Byhnfeihts73[address] [place] [id number]. Kalie Bess RBC 3.71 106/ul Critically low 4.20-5.40 [facility] Comment on above: Performed By: #### C BC ####[facility] Ayezwbqhyu72[address] [place] [id number]. Kalie Bess WBC 13.4 103/ul Critically high 4.0-11.0 [facility] Comment on above: Performed By: #### C BC ####[facility] Kfshbzfntc6[address] [place], [place] [address]Fm. Kalie Bess POINT OF CARE GLUCOSEon 10-0 Glucose [Mass/Vol] 106 mg/dL Normal 74-106 [facility] Comment on above: Performed By: #### P OCGLUC ####[facility] Qnesvbxzvp4853 [place] [id number]. Kalie Bess Glucose [Mass/Vol] 109 mg/dL Critically high 74-106 [facility] Comment on above: Performed By: #### P OCGLUC ####[facility] Xicezeluhw6607 [place] [id number]. Kalie Bess Glucose [Mass/Vol] 159 mg/dL Critically high 74-106 [facility] Comment on above: Performed By: #### P OCGLUC ####[facility] Ykemmqmtsd350[address] [place] [address]Dr. Kalie Bess Glucose [Mass/Vol] 340 mg/dL Critically high 74-106 [facility] Comment on above: Performed By: #### P OCGLUC ####[facility] Jvaqzrqdlb4101 [place] [address]Dr. Kalie Bess PROF CHEM 8 (BAS METB)on Anion gap [Moles/Vol] 6.9 mmol/L Normal [facility] Comment on above: Performed By: #### B MP ####[facility] Ykqtruwjod[address] [place], [place] [address]Dr. Kalie Bess Calcium [Mass/Vol] 8.0 mg/dL Critically low 8.5-10.1 [facility] Comment on above: Performed By: #### B MP ####[facility] Lqcdachibi97[address] [place], [place] [address]Dr. Kalie Bess Chloride [Moles/Vol] 96 mmol/L Critically low 98-107 [facility] Comment on above: Performed By: #### B MP ####[facility] Ezpcxoqrqq5[address] [place], [place] [address]Dr. Kalie Bess CO2 [Moles/Vol] 33.7 mmol/L Critically high 21.0-32.0 [facility] Comment on above: Performed By: #### B MP ####[facility] Bhyzhjzfux3[address] [place], [place] [address]Dr. Kalie Bess Creatinine [Mass/Vol] 1.35 mg/dL Critically high 0.55-1.02 [facility] Comment on above: Performed By: #### B MP ####[facility] Ltnxfawgvc01[address] [place], [place] [address]Dr. Kalie Bess EGFR-AF PAPUA [place] GUINEAN 50 mL/min/1.73m2 Critically low >=60 [facility] Comment on above: Performed By: #### B MP ####[facility] Tlnujzsasq[address] [place], [place] [address]Dr. Kalie Bess EGFR-NON AF PAPUA [place] 41 mL/min/1.73m2 Critically low >=60 [facility] Comment on above: Performed By: #### B MP ####[facility] Sbtybrxokt7126 [place] [address]Dr. Shayyroxie Shahriar Glucose [Mass/Vol] 339 mg/dL Critically high 74-106 [facility] Comment on above: Performed By: #### B MP ####[facility] Roraufmcft4624 [place] [address]Dr. Kalie Bess Potassium [Moles/Vol] 3.6 mmol/L Normal 3.5-5.1 [facility] Comment on above: Performed By: #### B MP ####[facility] Foyybjyudz2[address] [place], [place] [address]Dr. Kalie Bess Sodium [Moles/Vol] 133 mmol/L Critically low 136-145 [facility] Comment on above: Performed By: #### B MP ####[facility] Myqpwfotfw76[address] [place], [place] [address]Dr. Shayyroxie Shahriar Urea nitrogen [Mass/Vol] 28.0 mg/dL Critically high 7.0-18.0 [facility] Comment on above: Performed By: #### B MP ####[facility] Zjpcgidstu01[address] [place], [place] [address]Dr. Kalie Bess Urea nitrogen/Creatinine [Mass ratio] 20.7 mg/mg Normal [facility] Comment on above: Performed By: #### B MP ####[facility] Todzbbndob110[address] [place], [place] [address]Dr. Kalie Bess XR CHEST 2 Von 08-02-2022 XR CHEST 2 V Normal [facility] AMYLASE, BODY FLUIDon 2021 Amylase [Catalytic activity/Vol] 18 U/L Normal [facility] Comment on above: Result Comment: ____ : BODY FLUID TYPE : AMYLASE : : : : : Lymph : 50 - 83 : : : : : Peritoneal : : : Fluid : 88 - 109 : : : : : Saliva : : : (Mixed Glands) : [id number] - [id number] : : : : . Mars W, Shilo Schmitt. Reference Intervals for Adults and Children 2008. Ninth Edition (V9.1) [employer], [facility]; Labette: April 2009.The method performance specifications have not been established forthis test in body fluid. The test result should be integrated intothe clinical context for interpretation. Performed By: #### A MYBODY ####[facility] Ulumcmuvli[address] [place], [place] [address]Dr. Kalie Bess CBC AUTO DIFFon 08-01-2022 BASO # 0.0 103/ul Normal 0.0-0.1 [facility] Comment on above: Performed By: #### C BC ####[facility] Ddpfplbete18[address] [place], [place] [address]Dr. Kalie Bess Basophils/100 WBC (Bld) 0.3 % Normal 0.2-2.0 [facility] Comment on above: Performed By: #### C BC ####[facility] Kvmdxgtiwz47[address] [place] [address]DrCassie Bess EO # 0.4 103/ul Normal 0.0-0.7 [facility] Comment on above: Performed By: #### C BC ####[facility] Toftfsjbpc4449[address] [place], [place] [address]Dr. Kalie Bess Eosinophils/100 WBC (Bld) 3.2 % Normal 0.9-7.0 [facility] Comment on above: Performed By: #### C BC ####[facility] Uodzmukesw49[address] [place] [address]Dr. Kalie Bess Erythrocyte distribution width (RBC) [Ratio] 14.0 % Normal 11.0-15.0 [facility] Comment on above: Performed By: #### C BC ####[facility] Rkbavgmhtx8301 [place] [address]Dr. Shayyroxie Shahriar Hematocrit (Bld) [Volume fraction] 34.0 % Critically low 36.0-48.0 [facility] Comment on above: Performed By: #### C BC ####[facility] Fuipbthknl5[address] [place], [place] [address]Dr. Kalie Bess Hemoglobin (Bld) [Mass/Vol] 10.9 g/dL Critically low 12.0-16.0 [facility] Comment on above: Performed By: #### C BC ####[facility] Ougwkchouq[address] [place], [place] [address]DrCassie Lcuasroxie Shahriar IG # 0.11 10e3/ul Critically high 0.00-0.03 [facility] Comment on above: Performed By: #### C BC ####[facility] Clqmqhhbgo3227[address] [place], [place] [address]Dr. Kalie Bess IG % 0.8 % Critically high 0.0-0.5 [facility] Comment on above: Performed By: #### C BC ####[facility] Xahwbhvyzs[address] [place], [place] [address]DrCassie Bess LYMPH # 3.2 103/ul Normal 1.2-3.8 [facility] Comment on above: Performed By: #### C BC ####[facility] Sozjavmqwh[address] [place], [place] [address]Dr. Kalie Bess Lymphocytes/100 WBC (Bld) 24.6 % Normal 20.5-60.0 [facility] Comment on above: Performed By: #### C BC ####[facility] Hrwipoqece[address] [place], [place] [address]Dr. Kalie Bess MANUAL DIFF REQ NO Normal [facility] Comment on above: Performed By: #### C BC ####[facility] Qdlrteeoci2269 [place] [address]DrCassie Bess MCH (RBC) [Entitic mass] 28.3 pg Normal 26.7-34.0 [facility] Comment on above: Performed By: #### C BC ####[facility] Fevvxwkkrf7923 [place] [address]DrCassie Bess MCHC (RBC) [Mass/Vol] 32.1 g/dL Normal 29.9-35.2 [facility] Comment on above: Performed By: #### C BC ####[facility] Yhrxcpasbz3155 [place] [address]DrCassie Bess MCV (RBC) [Entitic vol] 88.3 fL Normal 81.0-99.0 [facility] Comment on above: Performed By: #### C BC ####[facility] Sxlzktrhyy[address] [place], [place] [address]DrCassie Bess MONO # 0.8 103/ul Normal 0.3-0.8 [facility] Comment on above: Performed By: #### C BC ####[facility] Evckpeuxcw87[address] [place], [place] [address]DrCassie Bess Monocytes/100 WBC (Bld) 5.8 % Normal 1.7-12.0 [facility] Comment on above: Performed By: #### C BC ####[facility] Ubutyvwrmj65[address] [place], [place] [address]DrCassie Bess NEUT # 8.5 103/ul Critically high 1.4-6.5 [facility] Comment on above: Performed By: #### C BC ####[facility] Fuexwwbsag7[address] [place], [place] [address]DrCassie Bess Neutrophils/100 WBC (Bld) 65.3 % Normal 43.0-75.0 [facility] Comment on above: Performed By: #### C BC ####[facility] Wjymnrlucb[address] [place], [place] [address]DrCassie Bess Platelet mean volume (Bld) [Entitic vol] 11.5 fL Normal 9.5-13.5 [facility] Comment on above: Performed By: #### C BC ####[facility] Dpxrhhwgoj0740 [place] [id number]. Kalie Bess PLT 256 103/ul Normal 150-450 [facility] Comment on above: Performed By: #### C BC ####[facility] Znmfnwpxsb7004 [place] [id number]. Kalie Bess RBC 3.85 106/ul Critically low 4.20-5.40 [facility] Comment on above: Performed By: #### C BC ####[facility] Addohucavs6575 [place] [address]Dr. Kalie Bess WBC 13.0 103/ul Critically high 4.0-11.0 [facility] Comment on above: Performed By: #### C BC ####[facility] Skuomyykla[address] [place] [address]Dr. Kalie Bess CELL COUNT BODY FLUIDon 10-0 Clarity, Serous Clear Normal Clear [facility] Comment on above: Performed By: #### C CBFS ####[facility] Qoohmxtqox[address] [place] [address]Dr. Kalie Bess Color, Serous Colorless Normal [facility] Comment on above: Result Comment: [place] rless to Pale Yellow/Straw Performed By: #### C CBFS ####[facility] Vnzzgoyhug32[address] [place] [id number]. Kalie Bess Comments: Normal [facility] Comment on above: Performed By: #### C CBFS ####[facility] Tifwyjufgj0841 [place] [id number]. Kalie Bess Eosinophils/100 WBC (Bld) 0 % Normal Not Estab. [facility] Comment on above: Performed By: #### C CBFS ####[facility] Pgrrnncygv5908 [place] [id number]. Kalie Bess Lining Cells, Serous Normal [facility] Comment on above: Performed By: #### C CBFS ####[facility] Wimebkcotk40[address] [place], [place] [address]Ph. Kalie Bess Lymphocytes/100 WBC (Bld) 25 % Normal Not Estab. [facility] Comment on above: Performed By: #### C CBFS ####[facility] Ewvqkcgdlr30[address] [place], [place] [address]Wx. Kalie Bess Macrophages, Serous 41 % Normal Not Estab. [facility] Comment on above: Performed By: #### C CBFS ####[facility] Jgywculklq7[address] [place], [place] [address]Vg. Kalie Bess Nucleated Cells, Serous 73 /mm3 Normal 0-499 [facility] Comment on above: Result Comment: Pleu ral Fluid, with <1000 Nucleated cells/uL has been associated with transudates while >1000 uL may be seen in exudates. Performed By: #### C CBFS ####[facility] Ivwalgidgk4[address] [place], [place] [address]Mp. Kalie Bess Polys, Serous 34 % Critically high 0-24 [facility] Comment on above: Performed By: #### C CBFS ####[facility] Eglivzjkje34[address] [place], [place] [address]Yk. Kalie Bess RBC (Bld) [#/Vol] 0 10*6/uL Normal Not Estab. [facility] Comment on above: Performed By: #### C CBFS ####[facility] Zjgsmszrqw9[address] [place], [place] [address]Tp. Kalie Bess GLUCOSE BODYFLUIDon 08-01-20 22 Glucose, Body Fluid 209 mg/dL Normal [facility] Comment on above: Result Comment: ____ [...] Reference Intervals for Adults and Children 2008. [facility] edition (V9.1) [employer], [facility]; Labette: April 2009.The reference intervals and other method performance specificationshave not been established for this test. The test result should beintegrated into the clinical context for interpretation. Performed By: #### B FGLUC ####[facility] [address] [place] [address]. Kalie Bess LACTIC ACID DEHYDROGENASE (L D), BODY FLUon 08-01-2022 LD, Body Fluid 127 IU/L Normal [facility] Comment on above: Result Comment: ____ [...] <240 : : : : . Mars W, Shilo V. Reference Intervals for Adults and Children 2008. Ninth Edition (V9.1) [employer], [facility]; Labette: April 2009.The reference intervals and other method performance specificationshave not been established for this test. The test result should beintegrated into the clinical context for interpretation. Performed By: #### L DHBF ####[facility] Mymhxdooew[address] [place] [address]Dr. Kalie Bess POINT OF CARE GLUCOSEon 0 Glucose [Mass/Vol] 322 mg/dL Critically high 74-106 [facility] Comment on above: Performed By: #### P OCGLUC ####[facility] Neudxucxkf[address] [place] [address]Dr. Kalie Bess Glucose [Mass/Vol] 299 mg/dL Critically high 74-106 [facility] Comment on above: Performed By: #### P OCGLUC ####[facility] [address]anmhb[address] [place], [place] [address]Dr. Kalie Bess Glucose [Mass/Vol] 306 mg/dL Critically high -106 [facility] Comment on above: Performed By: #### P OCGLUC ####[facility] [address]xeit[address] [place] [address]Dr. Kalie Bess Glucose [Mass/Vol] 339 mg/dL Critically high -106 [facility] Comment on above: Performed By: #### P OCGLUC ####[facility] Wrrkuvwhwj3[address] [place], [place] [address]Dr. Kalie Bess PROF CHEM 8 (BAS METB)on Anion gap [Moles/Vol] 6.3 mmol/L Normal [facility] Comment on above: Performed By: #### B MP ####[facility] [address]qyev[address] [place] [address]Dr. Kalie Bess Calcium [Mass/Vol] 8.0 mg/dL Critically low 8.5-10.1 [facility] Comment on above: Performed By: #### B MP ####[facility] Lngmqnmuof[address] [place] [id number]. Kalie Bess Chloride [Moles/Vol] 97 mmol/L Critically low 98-107 [facility] Comment on above: Performed By: #### B MP ####[facility] Fjdqzfttml36[address] [place] [id number]. Kalie Bess CO2 [Moles/Vol] 35.6 mmol/L Critically high 21.0-32.0 [facility] Comment on above: Performed By: #### B MP ####[facility] Qdhkhxgdnz[address] [place] [address]Dr. Kalie Bess Creatinine [Mass/Vol] 1.50 mg/dL Critically high 0.55-1.02 [facility] Comment on above: Performed By: #### B MP ####[facility] Qntbgglyti[address] [place] [address]Dr. Shayyroxie Bess EGFR-AF PAPUA [place] 44 mL/min/1.73m2 Critically low >=60 [facility] Comment on above: Performed By: #### B MP ####[facility] Idlydknwza[address] [place], [place] [address]Dr. Kalie Shahriar EGFR-NON AF PAPUA [place] 37 mL/min/1.73m2 Critically low >=60 [facility] Comment on above: Performed By: #### B MP ####[facility] Yjwjrhzenu[address] [place] [address]Dr. Kalie Bess Glucose [Mass/Vol] 303 mg/dL Critically high 74-106 [facility] Comment on above: Performed By: #### B MP ####[facility] Furkpykaht[address] [place] [id number]. Shayyroxie Bess Potassium [Moles/Vol] 3.0 mmol/L Critically low 3.5-5.1 [facility] Comment on above: Performed By: #### B MP ####[facility] Onabtyudqp[address] [place], [place] [address]Dr. Kalie Bess Sodium [Moles/Vol] 137 mmol/L Normal 136-145 [facility] Comment on above: Performed By: #### B MP ####[facility] Lizczljavc[address] [place], [place] [address]Rv. Shayyroxie Shahriar Urea nitrogen [Mass/Vol] 27.0 mg/dL Critically high 7.0-18.0 [facility] Comment on above: Performed By: #### B MP ####[facility] Ichizaicff[address] [place], [place] [address]Jz. Kalie Bess Urea nitrogen/Creatinine [Mass ratio] 18.0 mg/mg Normal [facility] Comment on above: Performed By: #### B MP ####[facility] Jvnbwphwyq30[address] [place], [place] [address]Ba. Kalie Bess PROTEIN, TOTAL, BODY FLUIDon 08-01-2022 Protein, Body Fluid 1.4 g/dL Normal [facility] Comment on above: Result Comment: ____ [...] - 0.9 : : : : . Shilo Huston V. Reference Intervals for Adults and Children 2007. Ninth Edition (V9.1) [employer], [facility]; [place]: April 2009.The method performance specifications have not been established forthis test in body fluid. The test result should be integrated intothe clinical context for interpretation. Performed By: #### T PBF ####[facility] Qvbvmmgtpa[address] [place], [place] [address]Dr. Kalie Bess XR CHEST 1 Von 08-01-2022 XR CHEST 1 V Normal [facility] BNPon 07-31-2022 Natriuretic peptide B (Bld) [Mass/Vol] 4467.0 pg/mL Critically high <=900.0 [facility] Comment on above: Performed By: #### B [employer] ####[facility] Txfdaxuxqb[address] [place], [place] [address]Dr. Kalie Bess CBC AUTO DIFFon 07-31-2022 BASO # 0.1 103/ul Normal 0.0-0.1 [facility] Comment on above: Performed By: #### C BC ####[facility] Lgfhxgsgbx7[address] [place], [place] [address]Dr. Kalie Bess Basophils/100 WBC (Bld) 0.5 % Normal 0.2-2.0 [facility] Comment on above: Performed By: #### C BC ####[facility] Lqcpraroth64[address] [place], [place] [address]Dr. Kalie Bess EO # 0.4 103/ul Normal 0.0-0.7 [facility] Comment on above: Performed By: #### C BC ####[facility] Tmseujdtxi[address] [place], [place] [address]Dr. Kalie Bess Eosinophils/100 WBC (Bld) 2.7 % Normal 0.9-7.0 [facility] Comment on above: Performed By: #### C BC ####[facility] Hejodkfjbz[address] [place], [place] [address]Dr. Kalie Bess Erythrocyte distribution width (RBC) [Ratio] 13.9 % Normal 11.0-15.0 [facility] Comment on above: Performed By: #### C BC ####[facility] Qivchrscwv[address] [place], [place] [address]Dr. Kalie Bess Hematocrit (Bld) [Volume fraction] 31.6 % Critically low 36.0-48.0 [facility] Comment on above: Performed By: #### C BC ####[facility] Cgdtvafwxq9[address] [place] [address]DrCassie Bess Hemoglobin (Bld) [Mass/Vol] 10.1 g/dL Critically low 12.0-16.0 [facility] Comment on above: Performed By: #### C BC ####[facility] Nshblwemyt70[address] [place] [address]DrCassie Bess IG # 0.15 10e3/ul Critically high 0.00-0.03 [facility] Comment on above: Performed By: #### C BC ####[facility] Jqydwdvwro[address] [place], [place] [address]DrCassie Bess IG % 1.1 % Critically high 0.0-0.5 [facility] Comment on above: Performed By: #### C BC ####[facility] Fggfqylihr[address] [place], [place] [address]DrCassie Bess LYMPH # 3.5 103/ul Normal 1.2-3.8 [facility] Comment on above: Performed By: #### C BC ####[facility] Bzdqkurglj67[address] [place], [place] [address]DrCassie Bess Lymphocytes/100 WBC (Bld) 26.3 % Normal 20.5-60.0 [facility] Comment on above: Performed By: #### C BC ####[facility] Vtyhaimbjq[address] [place], [place] [address]DrCassie Bess MANUAL DIFF REQ NO Normal [facility] Comment on above: Performed By: #### C BC ####[facility] Cedmlskbga51[address] [place], [place] [address]DrCassie Bess MCH (RBC) [Entitic mass] 28.5 pg Normal 26.7-34.0 [facility] Comment on above: Performed By: #### C BC ####[facility] Bltttgrtzm35[address] [place], [place] [address]DrCassie Bess MCHC (RBC) [Mass/Vol] 32.0 g/dL Normal 29.9-35.2 [facility] Comment on above: Performed By: #### C BC ####[facility] [address]zjxgiva[address] [place] [address]DrCassie Lucasroxie Shahriar MCV (RBC) [Entitic vol] 89.3 fL Normal 81.0-99.0 [facility] Comment on above: Performed By: #### C BC ####[facility] Qgqswcalnd65[address] [place], [place] [address]DrCassie Bess MONO # 1.1 103/ul Critically high 0.3-0.8 [facility] Comment on above: Performed By: #### C BC ####[facility] Lgziorbgvf[address]42[address] [place], [place] [address]DrCassie Bess Monocytes/100 WBC (Bld) 8.4 % Normal 1.7-12.0 [facility] Comment on above: Performed By: #### C BC ####[facility] Ykhlwzarir[address] [place], [place] [address]DrCassie Bess NEUT # 8.1 103/ul Critically high 1.4-6.5 [facility] Comment on above: Performed By: #### C BC ####[facility] Ldlxmckvsm[address] [place], [place] [address]DrCassie Bess Neutrophils/100 WBC (Bld) 61.0 % Normal 43.0-75.0 [facility] Comment on above: Performed By: #### C BC ####[facility] Tbsrwwpcgg6[address] [place], [place] [address]DrCassie Bess Platelet mean volume (Bld) [Entitic vol] 11.6 fL Normal 9.5-13.5 [facility] Comment on above: Performed By: #### C BC ####[facility] Rqemhdtmfz[address] [place], [place] [address]DrCassie Bess PLT 248 103/ul Normal 150-450 [facility] Comment on above: Performed By: #### C BC ####[facility] Ngiaegxyyl[address] [place], [place] [address]DrCassie Bess RBC 3.54 106/ul Critically low 4.20-5.40 [facility] Comment on above: Performed By: #### C BC ####[facility] O[address]qohcems[address] [place], [place] [address]Dr. Shayyroxie Bess WBC 13.3 103/ul Critically high 4.0-11.0 [facility] Comment on above: Performed By: #### C BC ####[facility] Prjiyecosj[address] [place], [place] [address]Dr. Kalie Bess CULTURE STERILE BODY FLUIDon 07-31-2022 CULTURE STERILE BODY FLUID Culture Observations: No growth at 72 hours. Normal [facility] Comment on above: Performed By: #### S TBFCX ####[facility] Mdddfcvvlt[address] [place], [place] [address]Dr. Shayyroxie Shahriar CYTOLOGYon 07-31-2022 SENT TO REF LAB 07/31/22 Normal [facility] Comment on above: Performed By: #### C YTO ####[facility] Sqkkmzisoz[address] [place], [place] [address]Dr. Kalie Bess ECHOCARDIO M/2D COMPLETEon 1 ECHOCARDIO M/2D COMPLETE Normal [facility] ER URINE PROFILEon Bilirubin Ql (U) Negative Normal NEGATIVE [facility] Comment on above: Performed By: #### U MICRO, ERUR ####[facility] Omlwhsvyqy[address] [place], [place] [address]Dr. Kalie Bess Clarity (U) CLEAR Normal CLEAR [facility] Comment on above: Performed By: #### U MICRO, ERUR ####[facility] Rvgvqjhcdl[address] [place], [place] [address]Dr. Kalie Bess Color (U) LT. YELLOW Normal YELLOW [facility] Comment on above: Performed By: #### U MICRO, ERUR ####[facility] Bea[address] [place], [place] [address]Dr. Kalie Bess ERUAHD A micrscopic examina tion will be performed if indicated. Normal [facility] Comment on above: Performed By: #### U MICRO, ERUR ####[facility] [address]ss[address]qwu[address] [place] [address]Dr. Kalie Bess Glucose Ql (U) 100 mg/dl Abnormal NEGATIVE [facility] Comment on above: Performed By: #### U MICRO, ERUR ####[facility] Qavbvgnmet7[address] [place], [place] [address]Dr. Kalie Bess Hemoglobin Ql (U) SMALL Abnormal NEGATIVE [facility] Comment on above: Performed By: #### U MICRO, ERUR ####[facility] Tociduav[address] [place], [place] [address]Dr. Kalie Bess Ketones Ql (U) Negative Normal NEGATIVE [facility] Comment on above: Performed By: #### U MICRO, ERUR ####[facility] Xwvxcmimqs[address] [place], [place] [address]Dr. Kalie Bess LEUKOCYTES Negative Normal NEGATIVE [facility] Comment on above: Performed By: #### U MICRO, ERUR ####[facility] Oolaucipqt[address] [place], [place] [address]Dr. Kalie Bess Nitrite Ql (U) Negative Normal NEGATIVE [facility] Comment on above: Performed By: #### U MICRO, ERUR ####[facility] Zteldjcwkg[address] [place], [place] [address]Dr. Kalie Bess pH (U) 5.5 [pH] Normal 5-9 [facility] Comment on above: Performed By: #### U MICRO, ERUR ####[facility] Fdzixuavyj[address] [place], [place] [address]Dr. Kalie Bess Protein (U) [Mass/Vol] 100 mg/dL Abnormal NEGAT SHAWN/ TRACE The [facility] Comment on above: Performed By: #### U MICRO, ERUR ####[facility] Vngjqzablt[address] [place], [place] [address]Dr. Kalie Bess SPEC GRAVITY 1.015 Normal 1.005-<=1. 025 [facility] Comment on above: Performed By: #### U MICRO, ERUR ####[facility] Jvtqimoglj[address] [place], [place] [address]Dr. Kalie Bess UR MICRO IND INDICATED Normal [facility] Comment on above: Performed By: #### U MICRO, ERUR ####[facility] Yf[address]orewcq[address] [place] [address]Dr. Shayyroxie Shahriar Urobilinogen Qn (U) 0.2 {Codi'U}/dL Normal 0.2 - 1. 0 [facility] Comment on above: Performed By: #### U MICRO, ERUR ####[facility] Lgjivhdlqh[address] [place] [address]Dr. Kalie Bess GRAM STAINon 07-31-2022 COMMENTS NO ORGANISMS OBSERVED Normal [facility] Comment on above: Performed By: #### G STAIN ####[facility] Ickakigzpd[address] [place], [place] [address]Dr. Kalie Bess DIPHTHEROIDS Normal [facility] Comment on above: Performed By: #### G STAIN ####[facility] Vdvrrcpnyu[address] [place], [place] [address]Dr. Kalie Bess EPITHELIALS Normal [facility] Comment on above: Performed By: #### G STAIN ####[facility] Hugcssutlo[address] [place], [place] [address]Dr. Kalie Bess FUNGAL ELEMENTS Normal [facility] Comment on above: Performed By: #### G STAIN ####[facility] Q[address]flppfjgr[address] [place], [place] [address]Dr. Kalie Bess GRAM NEG BACILLI Normal [facility] Comment on above: Performed By: #### G STAIN ####[facility] Cypjhukkvw[address] [place] [address]Dr. Kalie Bess GRAM NEG DIPPLOCOCCI Normal [facility] Comment on above: Performed By: #### G STAIN ####[facility] [address]owgqpfn27[address] [place] [address]Dr. Kalie Bess GRAM POS BACILLI Normal [facility] Comment on above: Performed By: #### G STAIN ####[facility] Frefewtuvr[address] [place] [address]Dr. Kalie Bess GRAM POSITIVE COCCI Normal [facility] Comment on above: Performed By: #### G STAIN ####[facility] Hvmviojgqy[address] [place], [place] [address]Dr. Kalie Bess GRAM STAIN SOURCE Pleural Fluid Normal [facility] Comment on above: Performed By: #### G STAIN ####[facility] Zbgciolyld[address] [place] [address]Dr. Kalie Bess GS_DIPTH Normal [facility] Comment on above: Performed By: #### G STAIN ####[facility] Lgvqaufxyj[address] [place] [address]Dr. Kalie Bess WBC FEW Normal [facility] Comment on above: Performed By: #### G STAIN ####[facility] Bxpsilcdad8[address] [place] [address]Dr. Kalie Bess POINT OF CARE GLUCOSEon Glucose [Mass/Vol] 314 mg/dL Critically high 74-106 [facility] Comment on above: Performed By: #### P OCGLUC ####[facility] Esekdxnzvd8054 [place] [address]Dr. Kalie Bess Glucose [Mass/Vol] 190 mg/dL Critically high -106 [facility] Comment on above: Performed By: #### P OCGLUC ####[facility] Qdlcvrtmyf3804 [place] [address]Dr. Kalie Bess Glucose [Mass/Vol] 271 mg/dL Critically high -106 [facility] Comment on above: Performed By: #### P OCGLUC ####[facility] Sm[address]zypykvy[address] [place] [address]Dr. Kalie Bess PROF CHEM 8 (BAS METB)on Anion gap [Moles/Vol] 8.1 mmol/L [facility] Comment on above: Performed By: #### B MP ####[facility] Knlneknivg24[address] [place] [address]Dr. Kalie Bess Calcium [Mass/Vol] 8.2 mg/dL Critically low 8.5-10.1 [facility] Comment on above: Performed By: #### B MP ####[facility] Tnevguagoy6[address] [place] [address]Dr. Kalie Bess Chloride [Moles/Vol] 102 mmol/L Normal 98-107 [facility] Comment on above: Performed By: #### B MP ####[facility] Pzbnnljmda2975 [place] [address]Dr. Kalie Bess CO2 [Moles/Vol] 32.2 mmol/L Critically high 21.0-32.0 [facility] Comment on above: Performed By: #### B MP ####[facility] Vrrfjghnhy6[address] [place] [address]Dr. Kalie Bess Creatinine [Mass/Vol] 1.25 mg/dL Critically high 0.55-1.02 [facility] Comment on above: Performed By: #### B MP ####[facility] Blkivorqkx[address] [place], [place] [address]Dr. Kalie Bess EGFR-AF PAPUA [place] 55 mL/min/1.73m2 Critically low >=60 [facility] Comment on above: Performed By: #### B MP ####[facility] Esf[address]rfhpb[address] [place], [place] [address]Dr. Kalie Bess EGFR-NON AF PAPUA [place] 45 mL/min/1.73m2 Critically low >=60 [facility] Comment on above: Performed By: #### B MP ####[facility] Qjezwmulpl[address] [place], [place] [address]Dr. Kalie Bess Glucose [Mass/Vol] 208 mg/dL Critically high 74-106 [facility] Comment on above: Performed By: #### B MP ####[facility] Kcrbmbdulx[address] [place], [place] [address]Dr. Kalie Bess Potassium [Moles/Vol] 3.3 mmol/L Critically low 3.5-5.1 [facility] Comment on above: Performed By: #### B MP ####[facility] Tscnjooosu[address] [place], [place] [address]Dr. Kalie Bess Sodium [Moles/Vol] 139 mmol/L Normal 136-145 [facility] Comment on above: Performed By: #### B MP ####[facility] Ycafovadpk[address] [place], [place] [address]Dr. Kalie Bess Urea nitrogen [Mass/Vol] 23.0 mg/dL Critically high 7.0-18.0 [facility] Comment on above: Performed By: #### B MP ####[facility] V[address]wlxvjsr[address] [place] [address]Dr. Kalie Bess Urea nitrogen/Creatinine [Mass ratio] 18.4 mg/mg Normal [facility] Comment on above: Performed By: #### B MP ####[facility] Ltrizuiqwk3[address] [place] [address]Dr. Kalie Bess TROPONIN, HIGH SENSITIVITYon 07-31-2022 HSTROP 19.2 pg/mL Normal 4.0-51.3 [facility] Comment on above: Result Comment: CUT- OFF POINTS HAVE BEEN ESTABLISHED BASED ON THE FOURTH UNIVERSAL DEFINITIONS OF MYOCARDIALINFARCTION. THE UPPER REFERENCE LIMIT (URL) OF TROPONIN, DEFINED THE 99TH PERCENTILE OFcTnI DISTRIBUTION IN A REFERENCE POPULATION, HAS BEEN CONFIRMED THE DECISION THRESHOLDFOR MS DIAGNOSIS. Performed By: #### H STROPN ####[facility] Oxabzetbap[address] [place], [place] [address]Dr. Kalie Bess URINE MICROSCOPIC ONLYon BACTERIA TRACE Abnormal NONE SEEN The [facility] Comment on above: Performed By: #### U MICRO, ERUR ####[facility] Seeeneeydz[address] [place], [place] [address]Dr. Kalie Bess Bacteria identified Cx Nom (U) NOT INDICATED Normal [facility] Comment on above: Performed By: #### U MICRO, ERUR ####[facility] [address]yuiqb[address] [place], [place] [address]Dr. Kalie Bess CAST NONE SEEN Normal NONE SEEN The [facility] Comment on above: Performed By: #### U MICRO, ERUR ####[facility] O[address]aktrxjw[address] [place] [address]Dr. Kalie Bess Crystals LM Nom (Urine sed) NONE SEEN Normal NONE SEEN The [facility] Comment on above: Performed By: #### U MICRO, ERUR ####[facility] Nbpnxmufwa[address] [place], [place] [address]Dr. Kalie Bess Epithelial cells LM Ql (Urine sed) NONE SEEN Normal NONE SEEN /RARE [facility] Comment on above: Performed By: #### U MICRO, ERUR ####[facility] Lncjnrsxsl6[address] [place] [address]Dr. Kalie Bess MUCOUS NONE SEEN Normal NONE SEEN [facility] Comment on above: Performed By: #### U MICRO, ERUR ####[facility] Mbycgyczbf[address] [place] [address]Dr. Shayyroxie Bess RBC NONE SEEN Abnormal 0-2 [facility] Comment on above: Performed By: #### U MICRO, ERUR ####[facility] P[address]zbrwba[address] [place] [address]Dr. Kalie Bess WBC NONE SEEN Normal NONE SEEN The [facility] Comment on above: Performed By: #### U MICRO, ERUR ####[facility] Z[address]ruqvror[address] [place], [place] [address]Dr. Kalie Bess XR CHEST 1 Von 07-31-2022 XR CHEST 1 V Normal [facility] XR CHEST 1 V Normal [facility] ACETONE SERUMon 07-30-2022 ACETONE Negative Normal NEGATIVE The [facility] Comment on above: Performed By: #### A CETON ####[facility] [address]zfbcxls[address] [place], [place] [address]Dr. Kalie Bess BNPon 07-30-2022 Natriuretic peptide B (Bld) [Mass/Vol] 6846.0 pg/mL Critically high <=900.0 [facility] Comment on above: Performed By: #### L IPA, BNP, HSTROPN, CMP ####[facility] [address]ix[address]lwcf[address] [place], [place] [address]Dr. Kalie Bess CBC AUTO DIFFon 07-30-2022 BASO # 0.1 103/ul Normal 0.0-0.1 [facility] Comment on above: Performed By: #### C BC ####[facility] Hgjkqrkyax[address] [place], [place] [address]Dr. Kalie Bess Basophils/100 WBC (Bld) 0.6 % Normal 0.2-2.0 [facility] Comment on above: Performed By: #### C BC ####[facility] [address]avzkxds[address] [place] [address]Dr. Kalie Bess EO # 0.2 103/ul Normal 0.0-0.7 [facility] Comment on above: Performed By: #### C BC ####[facility] [facility] [address] [place] [address]Dr. Kalie Bess Eosinophils/100 WBC (Bld) 1.3 % Normal 0.9-7.0 The [facility] Comment on above: Performed By: #### C BC ####[facility] [address] [place] [address]Dr. Kalie Bess Erythrocyte distribution width (RBC) [Ratio] 13.9 % Normal 11.0-15.0 The [facility] Comment on above: Performed By: #### C BC ####[facility] [address] [place] [address]Dr. Kalie Bess Hematocrit (Bld) [Volume fraction] 34.9 % Critically low 36.0-48.0 The [facility] Comment on above: Performed By: #### C BC ####[facility] [address] [place], [place] [address]Dr. Kalie Bess Hemoglobin (Bld) [Mass/Vol] 11.2 g/dL Critically low 12.0-16.0 The [facility] Comment on above: Performed By: #### C BC ####[facility] [address] [place] [address]Dr. Kalie Bess IG # 0.24 10e3/ul Critically high 0.00-0.03 The [facility] Comment on above: Performed By: #### C BC ####[facility] [address] [place] [address]Dr. Kalie Bess IG % 1.6 % Critically high 0.0-0.5 The [facility] Comment on above: Performed By: #### C BC ####[facility] [address] [place] [address]Dr. Kalie Bess LYMPH # 4.0 103/ul Critically high 1.2-3.8 The [facility] Comment on above: Performed By: #### C BC ####[facility] [address] [place] [id number]. Kalie Shahriar Lymphocytes/100 WBC (Bld) 25.8 % Normal 20.5-60.0 [facility] Comment on above: Performed By: #### C BC ####[facility] [address] [place] [id number]. Shayyroxie Bess MANUAL DIFF REQ NO Normal [facility] Comment on above: Performed By: #### C BC ####[facility] [address] [place] [address]Dr. Shayyroxie Bess MCH (RBC) [Entitic mass] 28.6 pg Normal 26.7-34.0 [facility] Comment on above: Performed By: #### C BC ####[facility] [address] [place] [address]Dr. Shayyroxie Bess MCHC (RBC) [Mass/Vol] 32.1 g/dL Normal 29.9-35.2 [facility] Comment on above: Performed By: #### C BC ####[facility] [address] [place] [address]Dr. Shayyroxie Bess MCV (RBC) [Entitic vol] 89.0 fL Normal 81.0-99.0 [facility] Comment on above: Performed By: #### C BC ####[facility] [address] [place] [address]Dr. Kalei Bess MONO # 1.2 103/ul Critically high 0.3-0.8 The [facility] Comment on above: Performed By: #### C BC ####[facility] [address] [place] [id number]. Kalie Bess Monocytes/100 WBC (Bld) 8.1 % Normal 1.7-12.0 [facility] Comment on above: Performed By: #### C BC ####[facility] [address] [place], [place] [address]Dr. Kalie Bess NEUT # 9.6 103/ul Critically high 1.4-6.5 [facility] Comment on above: Performed By: #### C BC ####[facility] [address] [place], [place] [address]Oe. Kalie Bess Neutrophils/100 WBC (Bld) 62.6 % Normal 43.0-75.0 The [facility] Comment on above: Performed By: #### C BC ####[facility] [address] [place], [place] [address]Hv. Kalie Bess Platelet mean volume (Bld) [Entitic vol] 11.2 fL Normal 9.5-13.5 The [facility] Comment on above: Performed By: #### C BC ####[facility] [address] [place], [place] [address]Tm. Kalie Bess PLT 308 103/ul Normal 150-450 The [facility] Comment on above: Performed By: #### C BC ####[facility] [address] [place], [place] [address]Ic. Kalie Bess RBC 3.92 106/ul Critically low 4.20-5.40 The [facility] Comment on above: Performed By: #### C BC ####[facility] [address] [place], [place] [address]Pd. Kalie Bess WBC 15.4 103/ul Critically high 4.0-11.0 The [facility] Comment on above: Performed By: #### C BC ####[facility] [address] [place], [place] [address]. [address] ABD/PELV W CONon 07-30-[address] ABD/PELV W CON Normal The [facility] CTA CHEST WO W CONon 022 CTA CHEST WO W CON Normal The [facility] Covid-19 PCR (CVDTB)on SARS-CoV-2 (COVID-19) RNA CIPRIANO+probe Ql (Unsp spec) Not detected Normal NOT DETECTED The [facility] Comment on above: Result Comment: When diagnostic [...] for this test is supported by the [place] of Health and Human Service's declaration that [...] Performed By: #### C VDTBH ####[facility] [address] [place], [place] [address]Dr. Shayyroxie Bess LACTATE/LACTIC ACIDon 2021 Lactate [Moles/Vol] 1.5 mmol/L Normal 0.4-1.9 [facility] Comment on above: Performed By: #### L ACT ####[facility] [address] [place], [place] [address]Dr. Kalie Bess LIPASEon 07-30-2022 Lipase [Catalytic activity/Vol] 152.0 U/L Normal 73.0-393.0 [facility] Comment on above: Performed By: #### L IPA, BNP, HSTROPN, CMP ####[facility] [address] [place], [place] [address]Dr. Kalie Bess PH VENOUS BLOODon 07-30-2022 PCO2 VENOUS 44.9 mmHg Normal 40.0-52.0 [facility] Comment on above: Performed By: #### P HVEN ####[facility] [address] [place], [place] [address]Dr. Shayyroxie Bess pH VENOUS 7.451 Critically high 7.330-7.43 0 [facility] Comment on above: Performed By: #### P HVEN ####[facility] [address] [place], [place] [address]DrCassie Bess PROF 14(COMP METB)on 022 Albumin [Mass/Vol] 2.3 g/dL Critically low 3.4-5.0 Th [facility] Comment on above: Performed By: #### L IPA, BNP, HSTROPN, CMP ####[facility] [address] [place] [address]Dr. Kalie Bess Albumin/Globulin [Mass ratio] 0.5 {ratio} Normal [facility] Comment on above: Performed By: #### L IPA, BNP, HSTROPN, CMP ####[facility] [address] [place] [address]Dr. Kalie Bess ALP [Catalytic activity/Vol] 100 U/L Normal 46-116 The [facility] Comment on above: Performed By: #### L IPA, BNP, HSTROPN, CMP ####[facility] [address] [place], [place] [address]Dr. Kalie Bess ALT [Catalytic activity/Vol] 18 U/L Normal 14-59 [facility] Comment on above: Performed By: #### L IPA, BNP, HSTROPN, CMP ####[facility] [address] [place], [place] [address]Dr. Kalie Bess Anion gap [Moles/Vol] 6.6 mmol/L Normal [facility] Comment on above: Performed By: #### L IPA, BNP, HSTROPN, CMP ####[facility] [address] [place], [place] [address]Dr. Kalie Bess AST [Catalytic activity/Vol] 10 U/L Critically low 15-37 [facility] Comment on above: Performed By: #### L IPA, BNP, HSTROPN, CMP ####[facility] [address] [place], [place] [address]Dr. Kalie Bess Bilirubin [Mass/Vol] 0.3 mg/dL Normal 0.2-1.0 [facility] Comment on above: Performed By: #### L IPA, BNP, HSTROPN, CMP ####[facility] [address] [place], [place] [address]Dr. Shayyroxie Bess Calcium [Mass/Vol] 8.7 mg/dL Normal 8.5-10.1 The [facility] Comment on above: Performed By: #### L IPA, BNP, HSTROPN, CMP ####[facility] [address] [place] [address]Dr. Kalie Bess Chloride [Moles/Vol] 99 mmol/L Normal 98-107 [facility] Comment on above: Performed By: #### L IPA, BNP, HSTROPN, CMP ####[facility] [address] [place] [address]Dr. Kalie Bess CO2 [Moles/Vol] 31.1 mmol/L Normal 21.0-32.0 [facility] Comment on above: Performed By: #### L IPA, BNP, HSTROPN, CMP ####[facility] [address] [place], [place] [address]Dr. Kalie Bess Creatinine [Mass/Vol] 1.34 mg/dL Critically high 0.55-1.02 [facility] Comment on above: Performed By: #### L IPA, BNP, HSTROPN, CMP ####[facility] [address] [place], [place] [address]Dr. Kalie Bess EGFR-AF P[place] 51 mL/min/1.73m2 Critically low >=60 [facility] Comment on above: Performed By: #### L IPA, BNP, HSTROPN, CMP ####[facility] [address] [place], [place] [address]Dr. Kalie Bess EGFR-NON AF [place] 42 mL/min/1.73m2 Critically low >=60 [facility] Comment on above: Performed By: #### L IPA, BNP, HSTROPN, CMP ####[facility] [address] [place] [address]Dr. Kalie Bess Globulin (S) [Mass/Vol] 4.4 g/dL Normal [facility] Comment on above: Performed By: #### L IPA, BNP, HSTROPN, CMP ####[facility] [address] [place] [address]Dr. Kalie Bess Glucose [Mass/Vol] 226 mg/dL Critically high 74-106 [facility] Comment on above: Performed By: #### L IPA, BNP, HSTROPN, CMP ####[facility] [address] [place] [address]Dr. Shayyroxie Bess Potassium [Moles/Vol] 3.7 mmol/L Normal 3.5-5.1 [facility] Comment on above: Performed By: #### L IPA, BNP, HSTROPN, CMP ####[facility] [address]ed[address] [place] [address]Dr. Kalie Bess Protein [Mass/Vol] 6.7 g/dL Normal 6.4-8.2 The [facility] Comment on above: Performed By: #### L IPA, BNP, HSTROPN, CMP ####[facility] [address] [place], [place] [address]Dr. Kalie Bess Sodium [Moles/Vol] 133 mmol/L Critically low 136-145 Th [facility] Comment on above: Performed By: #### L IPA, BNP, HSTROPN, CMP ####[facility] [address] [place], [place] [address]Dr. Kalie Bess Urea nitrogen [Mass/Vol] 23.0 mg/dL Critically high 7.0-18.0 [facility] Comment on above: Performed By: #### L IPA, BNP, HSTROPN, CMP ####[facility] [address] [place], [place] [address]Dr. Kalie Bess Urea nitrogen/Creatinine [Mass ratio] 17.2 mg/mg Normal [facility] Comment on above: Performed By: #### L IPA, BNP, HSTROPN, CMP ####[facility] [address] [place], [place] [address]Dr. Kalie Bess PROTIMEon 07-30-2022 INR Coag (PPP) [Relative time] 1.08 {INR} Normal [facility] Comment on above: Performed By: #### P TT, PT ####[facility] [address] [place], [place] [address]Dr. Kalie Bess INR GUIDELINES SEE BELOW Normal [facility] Comment on above: Result Comment: GABRIELLA RED INR: 2.0 - 3.0 CONDITIONS NOT LISTED BELOW 2.5 - 3.5 FOR PROSTHETIC HEART VALVE REPLACEMENT 2.5 - 3.5 RECURRENT THROMBOSIS Performed By: #### P TT, PT ####[facility] [address] [place] [address]Dr. Kalie Bess PT Coag (PPP) [Time] 11.6 s Normal 9.0-11.6 [facility] Comment on above: Performed By: #### P TT, PT ####[facility] [address] [place] [address]Dr. Kalie Bess PTTon 07-30-2022 aPTT Coag (Bld) [Time] 28.0 s Normal 22.3-36.2 Th e [facility] Comment on above: Performed By: #### P TT, PT ####[facility] [address] [place] [address]Dr. Kalie Bess TROPONIN, HIGH SENSITIVITYon 07-30-2022 HSTROP 29.4 pg/mL Normal 4.0-51.3 [facility] Comment on above: Result Comment: CUT- OFF POINTS HAVE BEEN ESTABLISHED BASED ON THE FOURTH UNIVERSAL DEFINITIONS OF MYOCARDIALINFARCTION. THE UPPER REFERENCE LIMIT (URL) OF TROPONIN, DEFINED THE 99TH PERCENTILE OFcTnI DISTRIBUTION IN A REFERENCE POPULATION, HAS BEEN CONFIRMED THE DECISION THRESHOLDFOR MS DIAGNOSIS. Performed By: #### H STROPN ####[facility] [address] [place], [place] [address]Dr. Kalie Bess HSTROP 28.3 pg/mL Normal 4.0-51.3 [facility] Comment on above: Result Comment: CUT- OFF POINTS HAVE BEEN ESTABLISHED BASED ON THE FOURTH UNIVERSAL DEFINITIONS OF MYOCARDIALINFARCTION. THE UPPER REFERENCE LIMIT (URL) OF TROPONIN, DEFINED THE 99TH PERCENTILE OFcTnI DISTRIBUTION IN A REFERENCE POPULATION, HAS BEEN CONFIRMED THE DECISION THRESHOLDFOR MS DIAGNOSIS. Performed By: #### L IPA, BNP, HSTROPN, CMP ####[facility] [address] [place] [address]Dr. Kalie Bess Outside Recordson 07-25-2022 Outside Records [id number]:12 7 [facility] Physician Orderon 07-25-2022 Physician Order [id number]:12 7 [facility] Vital Signs Date Time Vital Sign Value Performing Clinician Facility 07-13-2025 11:30-0400 Body height 147.3 cm Ayaan Deras MD Work Phone: [facility] 07-13-2025 11:30-0400 Body mass index (BMI) [Ratio] 36.78 kg/m2 Ayaan Deras MD Work Phone: [facility] 07-13-2025 11:30-0400 Body weight 79.83 kg Ayaan Deras MD Work Phone: [facility] 07-13-2025 11:30-0400 Diastolic blood pressure 70 mm[Hg] Ayaan Deras MD Work Phone: [facility] 07-13-2025 11:30-0400 Heart rate 78 /min Ayaan Deras MD Work Phone: [facility] 07-13-2025 11:30-0400 SaO2% (BldA) [Mass fraction] 95 % Ayaan Deras MD Work Phone: [facility] 07-13-2025 11:30-0400 Systolic blood pressure 126 mm[Hg] Ayaan Deras MD Work Phone: [facility] 07-11-2025 13:04-0400 Body temperature 98.1 [degF] Ayaan Deras II Work Phone: [facility] 07-11-2025 13:04-0400 Diastolic blood pressure 80 mm[Hg] Ayaan Deras II Work Phone: [facility] 07-11-2025 13:04-0400 Heart rate 87 /min Ayaan Deras II Work Phone: [facility] 07-11-2025 13:04-0400 Respiratory rate 18 /min Ayaan Deras II Work Phone: [facility] 07-11-2025 13:04-0400 SaO2% (BldA) [Mass fraction] 97 % Ayaan Deras II Work Phone: [facility] 07-11-2025 13:04-0400 Systolic blood pressure 130 mm[Hg] Ayaan Deras II Work Phone: [facility] 06-27-2025 10:24-0400 Body height 147.32 cm Ayaan Deras II Work Phone: [facility] 06-27-2025 10:24-0400 Body mass index (BMI) [Ratio] 42 kg/m2 Ayaandayne Deras II Work Phone: [facility] 06-27-2025 10:24-040 Body weight 91.17 kg Ayaandayne Deras II Work Phone: [facility] 06-27-2025 09:58-0400 Body temperature 98.4 [degF] Ayaan Deras II Work Phone: [facility] 06-27-2025 09:58-0400 Diastolic blood pressure 83 mm[Hg] Ayaan Deras II Work Phone: [facility] 06-27-2025 09:58-0400 Heart rate 92 /min Ayaan Deras II Work Phone: [facility] 06-27-2025 09:58-0400 Systolic blood pressure 186 mm[Hg] Ayaandayne Deras II Work Phone: [facility] 06-16-2025 14:15-0400 Body temperature 97.3 [degF] Ayaandayne Deras II Work Phone: [facility] 06-16-2025 14:15-0400 Diastolic blood pressure 70 mm[Hg] Ayaan Deras II Work Phone: [facility] 06-16-2025 14:15-0400 Heart rate 88 /min Ayaan Deras II Work Phone: [facility] 06-16-2025 14:15-0400 Respiratory rate 16 /min Ayaan Deras II Work Phone: [facility] 06-16-2025 14:15-0400 SaO2% (BldA) [Mass fraction] 99 % Ayaan Deras II Work Phone: [facility] 06-16-2025 14:15-0400 Systolic blood pressure 104 mm[Hg] Ayaan Deras II Work Phone: [facility] 06-16-2025 13:00-0400 Diastolic blood pressure 60 mm[Hg] Ayaan Deras II Work Phone: [facility] 06-16-2025 13:00-0400 Heart rate 82 /min Ayaan Deras II Work Phone: [facility] 06-16-2025 13:00-0400 Systolic blood pressure 95 mm[Hg] Ayaan Deras II Work Phone: [facility] 06-16-2025 10:30-0400 Respiratory rate 16 /min Ayaan Deras II Work Phone: [facility] 06-16-2025 10:30-0400 SaO2% (BldA) [Mass fraction] 91 % Ayaan Deras II Work Phone: [facility] 06-16-2025 09:45-0400 Body temperature 97.3 [degF] Ayaan Deras II Work Phone: [facility] 06-16-2025 09:45-0400 Inhaled oxygen flow rate 6 L/min Ayaan Deras II Work Phone: [facility] 06-16-2025 05:39-0400 Body weight 72.4 kg Ayaan Deras II Work Phone: [facility] 06-15-2025 17:26-0400 Body height 147.32 cm Ayaan Deras II Work Phone: [facility] 06-06-2025 13:40-0400 Diastolic blood pressure 75 mm[Hg] Hari Powell DO Work Phone: [facility] 06-06-2025 13:40-0400 Heart rate 88 /min Hari Powell DO Work Phone: [facility] 06-06-2025 13:40-0400 Respiratory rate 16 /min Hari Powell DO Work Phone: [facility] 06-06-2025 13:40-0400 SaO2% (BldA) [Mass fraction] 96 % Hari Powell DO Work Phone: [facility] 06-06-2025 13:40-0400 Systolic blood pressure 168 mm[Hg] Hari Powell DO Work Phone: [facility] 06-06-2025 13:10-0400 Body temperature 97.6 [degF] Hari Powell DO Work Phone: [facility] 06-06-2025 13:10-0400 Inhaled oxygen flow rate 6 L/min Hari Powell DO Work Phone: [facility] 06-06-2025 10:43-0400 Body height 147.32 cm Hari Powell DO Work Phone: [facility] 06-06-2025 10:43-0400 Body weight 77.56 kg Hari Powell DO Work Phone: [facility] 05-30-2025 10:15-0400 Body height 147.32 cm Hari Powell DO Work Phone: [facility] 05-30-2025 10:15-0400 Body mass index (BMI) [Ratio] 42 kg/m2 Hari Powell DO Work Phone: [facility] 05-30-2025 10:15-0400 Body weight 91.17 kg Hari Powell DO Work Phone: [facility] 05-30-2025 09:22-0400 Body temperature 98.2 [degF] Hari Powell DO Work Phone: [facility] 05-30-2025 09:22-0400 Diastolic blood pressure 79 mm[Hg] Hari Powell DO Work Phone: [facility] 05-30-2025 09:22-0400 Heart rate 93 /min Hari Powell DO Work Phone: [facility] 05-30-2025 09:22-0400 Respiratory rate 18 /min Hari Powell DO Work Phone: [facility] 05-30-2025 09:22-0400 Systolic blood pressure 128 mm[Hg] Hari Powell DO Work Phone: [facility] 05-17-2025 13:10-0400 Body temperature 97.1 [degF] Hari Powell DO Work Phone: [facility] 05-17-2025 13:10-0400 Diastolic blood pressure 64 mm[Hg] Hari Powell DO Work Phone: [facility] 05-17-2025 13:10-0400 Heart rate 80 /min Hari Powell DO Work Phone: [facility] 05-17-2025 13:10-0400 Respiratory rate 18 /min Hari Powell DO Work Phone: [facility] 05-17-2025 13:10-0400 SaO2% (BldA) [Mass fraction] 95 % Hari Powell DO Work Phone: [facility] 05-17-2025 13:10-0400 Systolic blood pressure 120 mm[Hg] Hari Powell DO Work Phone: [facility] 05-17-2025 06:12-0400 Body weight 70.9 kg Hari Powell DO Work Phone: [facility] 05-15-2025 16:00-0400 Inhaled oxygen flow rate 2 L/min Hari Powell DO Work Phone: [facility] 05-08-2025 20:30-0400 Body height 147.32 cm Hari Powell DO Work Phone: [facility] 05-08-2025 19:47-0400 Diastolic blood pressure 60 mm[Hg] Hari Powell DO Work Phone: [facility] 05-08-2025 19:47-0400 Heart rate 100 /min Hari Powell DO Work Phone: [facility] 05-08-2025 19:47-0400 Respiratory rate 20 /min Hari Powell DO Work Phone: [facility] 05-08-2025 19:47-0400 SaO2% (BldA) [Mass fraction] 95 % Hari Powell DO Work Phone: [facility] 05-08-2025 19:47-0400 Systolic blood pressure 133 mm[Hg] Hari Powell DO Work Phone: [facility] 05-08-2025 18:22-0400 Body temperature 99.3 [degF] Hari Powell DO Work Phone: [facility] 05-08-2025 13:11-0400 Body height 147.32 cm Hari Powell DO Work Phone: [facility] 05-08-2025 13:11-0400 Body weight 95.25 kg Hari Powell DO Work Phone: [facility] 04-25-2025 12:12-0400 Body height 147.32 cm Hari Powell DO Work Phone: [facility] 04-25-2025 12:12-0400 Body mass index (BMI) [Ratio] 33.6 kg/m2 Hari Powell DO Work Phone: [facility] 04-25-2025 12:12-0400 Body temperature 98 [degF] Hari Powell DO Work Phone: [facility] 04-25-2025 12:12-0400 Body weight 73.02 kg Hari Powell DO Work Phone: [facility] 04-25-2025 12:12-0400 Diastolic blood pressure 68 mm[Hg] Hari Powell DO Work Phone: [facility] 04-25-2025 12:12-0400 Heart rate 83 /min Hari Powell DO Work Phone: [facility] 04-25-2025 12:12-0400 SaO2% (BldA) [Mass fraction] 99 % Hari Powell DO Work Phone: [facility] 04-25-2025 12:12-0400 Systolic blood pressure 126 mm[Hg] Hari Powell DO Work Phone: [facility] 04-25-2025 11:21-0400 Body height 147.32 cm Hari Powell DO Work Phone: [facility] 04-25-2025 11:21-0400 Body mass index (BMI) [Ratio] 42 kg/m2 Hari Powell DO Work Phone: [facility] 04-25-2025 11:21-0400 Body weight 91.17 kg Hari Powell DO Work Phone: [facility] 04-25-2025 10:27-0400 Body temperature 97.5 [degF] Hari Powell DO Work Phone: [facility] 04-25-2025 10:27-0400 Diastolic blood pressure 77 mm[Hg] Hari Powell DO Work Phone: [facility] 04-25-2025 10:27-0400 Heart rate 96 /min Hari Powell DO Work Phone: [facility] 04-25-2025 10:27-0400 Respiratory rate 18 /min Hari Powell DO Work Phone: [facility] 04-25-2025 10:27-0400 Systolic blood pressure 128 mm[Hg] Hari Powell DO Work Phone: [facility] 04-17-2025 10:28-0400 Body height 147.3 cm Ayaan Deras MD Work Phone: [facility] 04-17-2025 10:28-0400 Body mass index (BMI) [Ratio] 34.28 kg/m2 Ayaan Deras MD Work Phone: [facility] 04-17-2025 10:28-0400 Body weight 74.39 kg Ayaan Deras MD Work Phone: [facility] 04-17-2025 10:28-0400 Diastolic blood pressure 72 mm[Hg] Ayaan Deras MD Work Phone: [facility] 04-17-2025 10:28-0400 Heart rate 79 /min Ayaan Deras MD Work Phone: [facility] 04-17-2025 10:28-0400 SaO2% (BldA) [Mass fraction] 94 % Ayaan Deras MD Work Phone: [facility] 04-17-2025 10:28-0400 Systolic blood pressure 128 mm[Hg] Ayaan Deras MD Work Phone: [facility] 04-04-2025 14:15-0400 Diastolic blood pressure 67 mm[Hg] Hari Powell DO Work Phone: [facility] 04-04-2025 14:15-0400 Heart rate 80 /min Hari Powell DO Work Phone: [facility] 04-04-2025 14:15-0400 Respiratory rate 16 /min Hari Powell DO Work Phone: [facility] 04-04-2025 14:15-0400 SaO2% (BldA) [Mass fraction] 94 % Hari Powell DO Work Phone: [facility] 04-04-2025 14:15-0400 Systolic blood pressure 142 mm[Hg] Hari Powell DO Work Phone: [facility] 04-04-2025 13:30-0400 Body temperature 97.2 [degF] Hari Powell DO Work Phone: [facility] 04-04-2025 13:30-0400 Inhaled oxygen flow rate 6 L/min Hari Powell DO Work Phone: [facility] 04-04-2025 10:30-0400 Body height 147.32 cm Ahri Powell DO Work Phone: [facility] 04-04-2025 10:30-0400 Body weight 79 kg Hari Powell DO Work Phone: [facility] 03-28-2025 10:52-0400 Body height 147.32 cm Hari Powell DO Work Phone: [facility] 03-28-2025 10:52-0400 Body mass index (BMI) [Ratio] 42 kg/m2 Hari Powell DO Work Phone: [facility] 03-28-2025 10:52-0400 Body weight 91.17 kg Hari Powell DO Work Phone: [facility] 03-28-2025 10:07-0400 Body temperature 98.8 [degF] Hari Powell DO Work Phone: [facility] 03-28-2025 10:07-0400 Diastolic blood pressure 77 mm[Hg] Hari Powell DO Work Phone: [facility] 03-28-2025 10:07-0400 Heart rate 87 /min Hari Powell DO Work Phone: [facility] 03-28-2025 10:07-0400 Respiratory rate 18 /min Hari Powell DO Work Phone: [facility] 03-28-2025 10:07-0400 Systolic blood pressure 148 mm[Hg] Hari Powell DO Work Phone: [facility] 03-14-2025 14:01-0400 Body height 147.3 cm Ernestina Hemmer PA Work Phone: [facility] 03-14-2025 14:01-0400 Body mass index (BMI) [Ratio] 41.3 kg/m2 Ernestina Hemmer PA Work Phone: [facility] 03-14-2025 14:01-0400 Body weight 89.63 kg Ernestina Hemmer PA Work Phone: [facility] 03-14-2025 14:01-0400 Diastolic blood pressure 72 mm[Hg] Ernestina Hemmer PA Work Phone: [facility] 03-14-2025 14:01-0400 Heart rate 87 /min Ernestina Hemmer PA Work Phone: [facility] 03-14-2025 14:01-0400 Respiratory rate 16 /min Ernestina Hemmer PA Work Phone: [facility] 03-14-2025 14:01-0400 SaO2% (BldA) [Mass fraction] 96 % Ernestina Hemmer PA Work Phone: [facility] 03-14-2025 14:01-0400 Systolic blood pressure 168 mm[Hg] Ernestina Hemmer PA Work Phone: [facility] 03-10-2025 13:39-0400 Body temperature 98.5 [degF] Hari Powell DO Work Phone: [facility] 03-10-2025 13:39-0400 Diastolic blood pressure 72 mm[Hg] Hari Powell DO Work Phone: [facility] 03-10-2025 13:39-0400 Heart rate 75 /min Hari Powell DO Work Phone: [facility] 03-10-2025 13:39-0400 Respiratory rate 18 /min Hari Powell DO Work Phone: [facility] 03-10-2025 13:39-0400 SaO2% (BldA) [Mass fraction] 94 % Hari Powell DO Work Phone: [facility] 03-10-2025 13:39-0400 Systolic blood pressure 164 mm[Hg] Hari Powell DO Work Phone: [facility] 03-10-2025 10:20-0400 Inhaled oxygen flow rate 3 L/min Hari Powell DO Work Phone: [facility] 03-10-2025 06:45-0400 Body weight 92.9 kg Hari Powell DO Work Phone: [facility] 03-06-2025 15:37-0400 Body height 149.86 cm Hari Powell DO Work Phone: [facility] 02-27-2025 20:38-0400 Body temperature 97.9 [degF] Hari Powell DO Work Phone: [facility] 02-27-2025 20:38-0400 Diastolic blood pressure 77 mm[Hg] Hari Powell DO Work Phone: [facility] 02-27-2025 20:38-0400 Heart rate 90 /min Hari Powell DO Work Phone: [facility] 02-27-2025 20:38-0400 Respiratory rate 16 /min Hari Powell DO Work Phone: [facility] 02-27-2025 20:38-0400 SaO2% (BldA) [Mass fraction] 95 % Hari Powell DO Work Phone: [facility] 02-27-2025 20:38-0400 Systolic blood pressure 134 mm[Hg] Hari Powell DO Work Phone: [facility] 02-27-2025 16:00-0400 Inhaled oxygen flow rate 2 L/min Hari Powell DO Work Phone: [facility] 02-27-2025 15:23-0400 Body height 149.86 cm Harilanie Powell DO Work Phone: [facility] 02-27-2025 06:20-0400 Body weight 86.8 kg Harityra Powell DO Work Phone: [facility] Encounters Encounter Date Encounter Type Care Provider Facility Start: 07-13-2025 End: 07-13-2025 Office outpatient visit 25 minutes Ayaan Deras MD Work Phone: [facility] Comment on above: Type 2 diabetes ari itus with diabetic neuropathy, with long- term current use of insulin ([facility]) (Primary Dx); Radiculopathy, lumbar region; Chronic diastolic heart failure ([facility]); Type 2 diabetes 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, with long-term current use of insulin ([facility]); GERD without esophagitis; ESRD (end stage renal disease) ([facility]); Open wound of abdominal wall, subsequent encounter Start: 07-13-2025 End: 07-13-2025 ambulatory AYAAN DERAS Not Available Start: 07-11-2025 End: 07-11-2025 ambulatory Ayaan Deras II Work Phone: [facility] Work Phone: Start: 07-11-2025 End: 07-11-2025 Patient encounter procedure Geneva Bell APRN -On License Of [facility] Vascular Surg Work Phone: Start: 06-27-2025 Registered Recurring Juan Carlos Angeles -[facility] Work Phone: Start: 06-15-2025 Non-patient / Non-visit Liliana dawn MD -On License Of [facility] Infect Dis Work Phone: Start: 06-15-2025 End: 06-16-2025 Evaluation and management of inpatient Nestor Buehrer Facility:[facility] Start: 06-06-2025 End: 06-06-2025 External Result Encounter Juan Carlos Chavez MD Work Phone: [facility] Unsolicited Start: 06-06-2025 End: 06-06-2025 External Result Encounter Juan Carlos Schmitt MD Work Phone: [facility] External Department Unsolicited Start: 06-06-2025 End: 06-06-2025 Admission to same day surgery center Juan Carlos Chavez MD -[facility] [place] Start: 06-06-2025 End: 06-06-2025 ambulatory Hari Crookner DO Work Phone: [facility] Work Phone: Start: 05-30-2025 ambulatory Ayaan Deras Facility:[facility] Start: 05-30-2025 Registered Recurring Juan Carlos Angeles [facility] Work Phone: Start: 05-19-2025 Non-patient / Non-visit Jessica Christian MD -[facility] Work Phone: Start: 05-15-2025 Non-patient / Non-visit Rodo chappell MD -On License Of [facility] Work Phone: Start: 05-10-2025 End: 05-19-2025 External Result Encounter Juan Carlos Chavez MD Work Phone: [facility] External [facility] Unsolicited Start: 05-10-2025 End: 05-19-2025 External Result Encounter Juan Carlos Schmitt MD Work Phone: [facility] External Department Unsolicited Start: 05-08-2025 End: 05-17-2025 Evaluation and management of inpatient Xavier Mello MD -[facility] Work Phone: Start: 05-08-2025 Non-patient / Non-visit Liliana dawn MD -On License Of [facility] Work Phone: Start: 04-25-2025 End: 04-25-2025 ambulatory Hari Powell DO Work Phone: [facility] Work Phone: Start: 04-25-2025 End: 04-25-2025 Patient encounter procedure Nestor Wright MD -On License Of [facility] Work Phone: Start: 04-25-2025 Registered Recurring Juan Carlos [facility] Work Phone: Start: 04-18-2025 End: 04-18-2025 Patient encounter procedure Rodo Martinez MD -Ultrasound [facility] Work Phone: Start: 04-18-2025 End: 04-18-2025 ambulatory Rodo Martinez Facility:[facility] Start: 04-18-2025 Encounter for other preprocedural examination Rodo Martinez [facility] Start: 04-18-2025 Non-patient / Non-visit Rodo chappell MD -[facility] Work Phone: Start: 04-17-2025 End: 04-17-2025 Bamboo flowsheet Ayaan Deras MD Work Phone: [facility] Start: 04-17-2025 End: 04-17-2025 Bamboo flowsheet Ayaan Deras MD Work Phone: [facility] Start: 04-17-2025 End: 04-17-2025 Office outpatient visit 25 minutes Ayaan Deras MD Work Phone: [facility] Comment on above: Open wound of abdomi nal wall, subsequent encounter (Primary Dx); C. difficile diarrhea; Morbid (severe) obesity due to excess calories ([facility]); Body mass index (BMI) 40.0-44.9, adult ([facility]); ESRD (end stage renal disease) ([facility]); Hemodialysis status ; 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 2 diabetes mellitus ([facility]) Start: 04-17-2025 End: 04-17-2025 ambulatory AYAAN B DERAS Not Available Start: 04-13-2025 End: 04-14-2025 Refill Virgie Arriaza [facility] Comment on above: Chronic diastolic he art failure (HCC) (Primary Dx); GERD without esophagitis Start: 04-04-2025 End: 04-04-2025 External Result Encounter Juan Carlos Chavez MD Work Phone: [facility] External [facility] Unsolicited Start: 04-04-2025 End: 04-04-2025 External Result Encounter Juan Carlos Schmitt MD Work Phone: [facility] External [facility] Unsolicited Start: 04-04-2025 End: 04-04-2025 Admission to same day surgery center Hari Powell DO Work Phone: [facility] [place] Start: 04-04-2025 End: 04-04-2025 ambulatory Hari Kary Powell DO Work Phone: [facility] Work Phone: Start: 03-30-2025 End: 03-30-2025 Patient encounter procedure Hari Powell DO Work Phone: [facility]-Pre-Surgical Testing Work Phone: Start: 03-30-2025 End: 03-30-2025 ambulatory Hari Kary Powell DO Work Phone: [facility] Work Phone: Start: 03-28-2025 Registered Recurring Hari War ner DO Work Phone: [facility] Work Phone: Start: 03-22-2025 Non-patient / Non-visit Rodo chappell MD -[facility] Work Phone: Start: 03-14-2025 End: 03-14-2025 Office outpatient visit 40 minutes Ernestina GO Work Phone: [facility] Comment on above: Type 2 diabetes ari itus with hyperglycemia, with long-term current use of insulin ([facility]) (Primary Dx); C. difficile diarrhea; ESRD (end stage renal disease) ([facility]); Skin necrosis ([facility]); 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 2 diabetes mellitus ([facility]); Calciphylaxis; Hypertension secondary to other renal disorders; Gastroparesis; Anemia of chronic renal failure, stage 5 ([facility]); Acute gastritis without hemorrhage, unspecified gastritis type; Physical deconditioning Start: 03-14-2025 End: 03-14-2025 ambulatory ERNESTINA BENAVIDES Not Available Start: 03-09-2025 Non-patient / Non-visit Hari Powell DO Work Phone: [facility] Physician [facility] Work Phone: Start: 03-09-2025 Non-patient / Non-visit Hari Powell DO Work Phone: [facility] Physician [facility] Infect Dis Work Phone: Start: 03-02-2025 Non-patient / Non-visit Hari Powell DO Work Phone: [facility] Physician [facility] Work Phone: Start: 03-02-2025 Non-patient / Non-visit Hari Powell DO Work Phone: [facility] Work Phone: Start: 02-28-2025 Non-patient / Non-visit Hari Powell DO Work Phone: [facility]ician [facility] Gastro Work Phone: Start: 02-27-2025 End: 02-27-2025 Departed Referred Hari Powell DO Work Phone: [facility] Work Phone: Start: 02-27-2025 End: 02-27-2025 ambulatory Hari Crookner DO Work Phone: [facility] Work Phone: Start: 02-25-2025 Patient encounter status Hari Powell DO Work Phone: [facility] Start: 02-25-2025 Non-patient / Non-visit Hari Powell DO Work Phone: [facility] Physician [facility] Out[facility] Work Phone: Start: 02-24-2025 End: 02-25-2025 External Result Encounter Isai Rodrigues DO Work Phone: [facility] External [facility] Unsolicited Start: 02-24-2025 End: 02-25-2025 External Result Encounter Isai Rodrigues DO Work Phone: [facility] External [facility] Unsolicited Start: 02-24-2025 Non-patient / Non-visit Hari Powell DO Work Phone: [facility] Physician [facility] Vascular Surg Work Phone: Start: 02-23-2025 Non-patient / Non-visit Hari Powell DO Work Phone: [facility] Physician [facility] Work Phone: Start: 02-23-2025 End: 03-10-2025 Patient encounter status Kemal Ortiz Tabithadannielle DO [facility] Start: 02-23-2025 End: 03-09-2025 Encounter for other general examination Hari Powell DO Work Phone: [facility] Start: 02-23-2025 End: 03-10-2025 Evaluation and management of inpatient Hari Powell DO Work Phone: [facility] Work Phone: Start: 12-21-2024 End: 12-27-2024 Telephone encounter Ayaan Deras MD Work Phone: [facility] Comment on above: Appointment Request Start: 11-25-2023 End: 11-25-2023 ambulatory [facility] Start: 04-30-2023 End: 04-30-2023 ambulatory Carolyn Ramsey Other [facility] Other Start: 04-30-2023 Telephone encounter Carolyn Ramsey [employer] Start: 02-12-2023 End: 02-13-[address] AYAAN [...] Date Procedure Procedure Detail Performing Clinician Start: 07-13-2025 Hemoglobin glycosyla alyssa a1c Ayaan Deras MD Work Phone: Start: 06-06-2025 GLUCOSE POCT GLUCOMETERS Juan Carlos Chavez MD Work Phone: Start: 06-06-2025 Debridement Hari Dickens er DO Work Phone: Start: 06-06-2025 GLUCOSE POCT GLUCOMETERS Juan Carlos Chavez MD Work Phone: Start: 06-06-2025 Basic metabolic pane l calcium total Juan Carlos Chavez MD Work Phone: Start: 05-10-2025 AEROBIC CULTURE Juan Carlos Chavez MD Work Phone: Start: 05-10-2025 ANAEROBIC CULTURE Duc Chavez MD Work Phone: Start: 05-10-2025 PATHOLOGY REQUEST FO R LAB [facility] Juan Carlos Chavez MD Work Phone: Start: 05-09-2025 Antibody screen Ayaan Deras Comment on above: Order Comment: Trans fuse now? Y Number of units to transfuse now? 1 Transfuse now? Y Number of units to transfuse now? 1 Result Comment: PERF ORMED BY:[facility] [place], [place] [id number] MEDICAL DIRECTORLANDRY LEE M.D. Start: 05-08-2025 Computed tomography of abdomen and pelvis with contrast Hari Powell DO Work Phone: Start: 05-08-2025 Plain chest X-ray Hari Powell DO Work Phone: Start: 04-18-2025 US angiography Hari Wa rner DO Work Phone: Start: 04-17-2025 Hemoglobin glycosyla alyssa a1c Ayaan Deras MD Work Phone: Start: 04-04-2025 GLUCOSE POCT GLUCOMETERS Juan Carlos Chavez MD Work Phone: Start: 04-04-2025 Debridement Hari Dickens er DO Work Phone: Start: 04-04-2025 GLUCOSE POCT GLUCOMETERS Juan Carlos Chavez MD Work Phone: Start: 03-07-2025 Antibody screen Ayaan Deras Comment on above: Order Comment: Trans fuse now? Y Number of units to transfuse now? 1 Result Comment: PERF ORMED BY:[facility] [place], [place] [id number] MEDICAL DIRECTORKEMAL ACKERMAN M.D. Start: 03-03-2025 Serum immunofixation Breann Powell DO Work Phone: Comment on above: Presence of monoclon al protein is unclear at this time. Suggestrepeat in 3 to 6 months if clinically indicated. Start: 03-01-2025 Bacteria identified in Blood by Culture Hari Powell DO Work Phone: Start: 03-01-2025 CT of abdomen and pe lvis without contrast Hari Powell DO Work Phone: Start: 02-28-2025 Radionuclide gastric emptying study Hari Powell DO Work Phone: Start: 02-27-2025 CT of abdomen and pe lvis without contrast Hari Powell DO Work Phone: Start: 02-24-2025 AEROBIC CULTURE Isai Rodrigues DO Work Phone: Start: 02-24-2025 ANAEROBIC CULTURE Isai Antonio Lilia DO Work Phone: Start: 02-24-2025 Debridement Hari potter DO Work Phone: Start: 02-24-2025 Plain chest X-ray Hari Powell DO Work Phone: Start: 02-24-2025 Fluoroscopic guidance Nazario Powell DO Work Phone: Start: 02-24-2025 Aerobic microbial culture Hari Powell DO Work Phone: Start: 02-24-2025 Anaerobic microbial culture Hari Powell DO Work Phone: Start: 02-24-2025 Gram stain microscopy Nazario Powell DO Work Phone: Start: 02-24-2025 Hepatitis A virus antibody, IgM type Hari Powell DO Work Phone: Comment on above: A negative anti-HAV IgM result suggests no recent orcurrent HAV infection. Start: 02-24-2025 Hepatitis B core ant ibody measurement Hari Powell DO Work Phone: Comment on above: Performed at: [address] [id number] Director: Louis Hansen PhD, Phone: [phone] Start: 02-24-2025 Hepatitis B core ant ibody measurement, IgM type Hari Powell DO Work Phone: Start: 02-23-2025 Ultrasonography of bilateral kidneys Hari Powell DO Work Phone: Start: 02-23-2025 Urine culture Hari paniagua DO Work Phone: Start: 03-19-2023 Colonoscopy Ayaan villatoro MD Work Phone: Start: 03-05-2023 H/O: hysterectomy History of hysterectomy Ayaan Deras MD Work Phone: Start: 11-30-2022 Transfusion of Nonautologous Red Blood Cells into Peripheral Vein, Percutaneous Approach HIEU HONG . Start: 11-28-2022 Excision of Chest Subcutaneous Tissue and Fascia, Open Approach HIEU HONG . Start: 11-24-2022 Insertion of Infusio n Device into Superior Vena Cava, Percutaneous Approach HIEU HONG . Start: 07-31-[address] eural Cavity, Percutaneous Approach HIEU HONG . Start: 06-27-2021 Mammography Ayaan villatoro MD Work Phone: Plan of Treatment Date Care Activity Detail Author Start: 03-19-2033 Screening for malign ant neoplasm of colon [facility] Start: 03-14-2026 Screening for malign ant neoplasm of breast Mammogram [facility] Comment on above: Postponed from 06/27 (Patient Refused) Start: 10-12-2025 End: 10-12-2025 Patient encounter procedure 10/12/2025 11:30 AM EST [facility] [address] [facility] [address] [place] [address] Ayaan Deras MD [address] [facility] [address] [place] [address] MIKHAIL Saucedo [facility] Start: 07-20-2025 End: 07-20-2025 Patient encounter procedure [facility] Start: 06-26-2025 Influenza vaccination [facility] Start: 06-16-2025 [facility] Start: 06-15-2025 Referral to infectio us diseases physician [facility] Start: 06-15-2025 Hospital admission [facility] Start: 06-15-2025 Referral to clinical stone layer [facility] Start: 06-15-2025 Referral to swatch cutter [facility] Start: 06-06-2025 End: 06-06-2025 [facility] Start: 05-18-2025 [facility] Start: 05-17-2025 End: 05-17-2025 [facility] Start: 05-16-2025 [facility] Start: 05-15-2025 [facility] Start: 05-14-2025 [facility] Start: 05-13-2025 Comprehensive metabo lic 2000 panel - Serum or Plasma [facility] Start: 05-13-2025 [facility] Start: 05-12-2025 Comprehensive metabo lic 1999 panel - Serum or Plasma [facility] Start: 05-12-2025 [facility] Start: 05-11-2025 Comprehensive metabo lic 1999 panel - Serum or Plasma [facility] Start: 05-11-2025 [facility] Start: 05-10-2025 Comprehensive metabo lic 1999 panel - Serum or Plasma [facility] Start: 05-10-2025 [facility] Start: 05-09-2025 Referral to general surgeon [facility] Start: 05-09-2025 Comprehensive metabo lic 2000 panel - Serum or Plasma [facility] Start: 05-09-2025 End: 05-10-2025 [facility] Start: 05-08-2025 Referral to infectio us diseases physician [facility] Start: 05-08-2025 Bacteria identified in Unspecified specimen by Aerobe culture [facility] Start: 05-08-2025 Hospital admission [facility] Start: 05-08-2025 Referral to swatch cutter [facility] Start: 05-08-2025 [facility] Start: 05-08-2025 [facility] Start: 05-08-2025 Bacteria identified in Blood by Culture Blood Culture [facility] Start: 05-08-2025 [facility] Start: 04-17-2025 End: 04-17-2025 Patient encounter procedure [facility] Comment on above: Arrived Start: 04-04-2025 End: 04-04-2025 [facility] Start: 03-10-2025 [facility] Start: 03-06-2025 Administration of prophylactic treatment [facility] Start: 03-01-2025 Referral to infectio us diseases physician [facility] Start: 02-28-2025 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 to 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 truck 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 [facility] Start: 02-28-2025 Radionuclide gastric emptying study [facility] Start: 02-28-2025 [facility] Start: 02-24-2025 Referral to psychiatrist [facility] Start: 02-23-2025 Excision of Abdomen Subcutaneous Tissue and Fascia, Open Approach Excision of Abdomen Subcutaneous Tissue and Fascia, Open Approach [facility] Start: 02-23-2025 Excision of Duodenum , Via Natural or Artificial Opening Endoscopic, Diagnostic Excision of Duodenum, Via Natural or Artificial Opening Endoscopic, Diagnostic [facility] Start: 02-23-2025 Excision of Stomach, Via Natural or Artificial Opening Endoscopic, Diagnostic Excision of Stomach, Via Natural or Artificial Opening Endoscopic, Diagnostic [facility] Start: 02-23-2025 Extraction of Abdome n Skin, External Approach Extraction of Abdomen Skin, External Approach [facility] Start: 02-23-2025 Insertion of Infusio n Device into Superior Vena Cava, Percutaneous Approach Insertion of Infusion Device into Superior Vena Cava, Percutaneous Approach [facility] Start: 02-23-2025 Insertion of Tunnele d Vascular Access Device into Chest Subcutaneous Tissue and Fascia, Percutaneous Approach Insertion of Tunneled Vascular Access Device into Chest Subcutaneous Tissue and Fascia, Percutaneous Approach [facility] Start: 02-23-2025 Performance of Urina ry Filtration, Intermittent, Less than 6 Hours Per Day Performance of Urinary Filtration, Intermittent, Less than 6 Hours Per Day [facility] Start: 02-23-2025 Referral to vascular surgeon [facility] Start: 02-23-2025 Referral to general surgeon [facility] Start: 02-23-2025 Referral to infectio us diseases physician [facility] Start: 02-23-2025 Hospital admission [facility] Start: 02-23-2025 Referral to swatch cutter [facility] Start: 02-23-2025 [facility] Start: 01-06-2025 Urine screening for protein Di abetes: Urine Protein Screening [facility] Start: 06-26-2024 Influenza vaccination Influenz a Vaccine (#1) [facility] Start: 04-07-2024 Hemoglobin A1c measurement Melissa betes: Hemoglobin A1C [facility] Start: 07-23-2022 Glaucoma screening Diabetes: R etinopathy Screening [facility] Start: 06-27-2022 Screening for malign ant neoplasm of breast Mammogram [facility] Start: 2001 Screening for malign ant neoplasm of cervix [facility] Start: 01-31-1992 Screening for malign ant neoplasm of cervix Pap Smear [facility] Start: 1971 Screening for malign ant neoplasm of colon [facility] AEROBIC CULTURE AEROBIC CULTURE Lab Routine 02/24/2025 2:51 PM EDT [facility] Work Phone: AEROBIC CULTURE AEROBIC CULTURE Lab Routine 05/10/2025 3:43 PM EDT [facility] Work Phone: Albumin/Globulin ratio [facility] ANAEROBIC CULTURE ANAEROBIC CULT URE Lab Routine 02/24/2025 2:51 PM EDT [facility] ANAEROBIC CULTURE ANAEROBIC CULT URE Lab Routine 05/10/2025 3:43 PM EDT [facility] Anion gap measurement [facility] Basophils [#/volume] in Blood by Automated count [facility] Basophils/100 leukoc ytes in Blood by Automated count [facility] Eosinophils/100 leuk ocytes in Blood by Automated count [facility] Erythrocyte distribu tion width [Ratio] by Automated count [facility] Erythrocytes [#/volu me] in Blood [facility] Globulin [Mass/volum e] in Serum [facility] Hematocrit [Volume F raction] of Blood [facility] Hemoglobin [Mass/vol ume] in Blood [facility] Leukocytes [#/volume ] corrected for nucleated erythrocytes in Blood by Automated coun [facility] Leukocytes [#/volume ] in Blood [facility] Lymphocytes [#/volum e] in Blood by Automated count [facility] Lymphocytes/100 leuk ocytes in Blood by Automated count [facility] MCH [Entitic mass] b y Automated count [facility] MCHC [Mass/volume] b y Automated count [facility] MCV [Entitic volume] by Automated count [facility] Monocytes [#/volume] in Blood by Automated count [facility] Monocytes/100 leukoc ytes in Blood by Automated count [facility] Neutrophils [#/volum e] in Blood by Automated count [facility] Neutrophils/100 leuk ocytes in Blood by Automated count [facility] Nucleated erythrocyt es [Presence] in Blood by Automated count [facility] Patient Education [facility] Work Phone: Patient referral [facility] Work Phone: Platelet mean volume [Entitic volume] in Blood by Automated count [facility] Platelets [#/volume] in Blood [facility] US AV fistula [facility] Immunizations Immunization Date Immunization Notes Care Provider [facility] 05-18-2025 tuberculin skin test ; purified protein derivative solution, intradermal Ayaan Deras MD Work Phone: [facility] 09-29-2022 influenza, injectabl e, quadrivalent, preservative free Ayaan Deras MD Work Phone: [facility] 09-29-2022 influenza virus vaccine, unspecified formulation Ayaan Deras MD Work Phone: [facility] 09-04-2021 influenza, injectabl e, quadrivalent, contains preservative Ayaan Deras MD Work Phone: [facility] 07-26-2021 diphtheria, tetanus toxoids and pertussis vaccine Ayaan Deras MD Work Phone: [facility] 04-23-2021 COVID-19 mRNA, Comirnaty (Pfizer) Hari Powell DO Work Phone: [facility] 04-02-2021 COVID-19 mRNA, Comirnaty (Pfizer) Hari Powell DO Work Phone: [facility] 08-28-2020 influenza, injectabl e, quadrivalent, preservative free Ayaan Deras MD Work Phone: [facility] 08-25-2019 Influenza, injectabl e, [place] Canine Kidney, quadrivalent with preservative Ayaan Deras MD Work Phone: [facility] 10-12-2017 influenza, injectabl e, quadrivalent, preservative free Ayaan Deras MD Work Phone: [facility] Healthcare Payers Date Payer Category Payer Medicare MEDICARE [id number] 2025 Medicare [id number] 2025 Private Health Insurance [id number] 2025 Self-pay 2024 Medicaid MEDICAID [facility] [id number] 2024 Medicaid [id number] 2020 Blue [employer] Blue Shield BCBS [id number] 1971 Unknown [id number] 2.16840.1.007724.3.579. 2.593 1971 Unknown [id number] 2.16840.1.343082.3.579. 2.593 1971 Unknown [id number] 2.16840.1.060538.3.579. 2.593 1971 Unknown [id number] 2.16.840.1.135682.3.579. 2.593 1971 Unknown [id number] 2.16840.1.986222.3.579. 2.593 1971 Unknown [id number] 2.16.840.1.235991.3.579. 2.593 1971 Unknown [id number] 2.16840.1.669044.3.579. 2.593 1971 Unknown [id number] 2.16.840.1.633526.3.579. 2.593 1971 Unknown [id number] 2.16.840.1.752338.3.579. 2.593 1971 Unknown [id number] 2.16.840.1.281498.3.579. 2.593 1971 Unknown [id number] 2.16.840.1.067782.3.579. 2.593 1971 Unknown [id number] 2.16.840.1.067178.3.579. 2.593 1971 Unknown [id number] 2.16.840.1.265274.3.579. 2.593 1971 Unknown [id number] 2.840.1.638302.3.579. 2.593 1971 Unknown [id number] 2..840.1.248584.3.579. 2.1259 1971 Unknown [id number] 2.16.840.1.015362.3.579. 2.1259 1971 Unknown [id number] 2.16.840.1.540057.3.579. 2.1259 1959 Unknown [id number] Unknown [id number] 2.16.840.1.382493.3.579. 2.531 Unknown [id number] 2.16.840.1.012302.3.579. 2.531 Unknown [id number] 2.16.840.1.411435.3.579. 2.531 Unknown [id number] 2.16.840.1.434326.3.579. 2.531 Unknown [id number] 2.16.840.1.036378.3.579. 2.531 Unknown [id number] 2.16.840.1.198877.3.579. 2.531 Unknown [id number] 2.16.840.1.895134.3.579. 2.531 Unknown [id number] 2.16.840.1.677874.3.579. 2.531 Social History Date Type Detail Facility Start: 01-06-2024 End: 07-13-2025 Sex Assigned At [facility] Work Phone: Start: 02-27-2023 End: 06-27-2025 Tobacco smoking status GAIS Smokes tobacco daily [facility] History of tobacco use Cigarette Smoker [facility] Start: 02-27-2023 End: 03-14-2025 Tobacco use and exposure User of smokeless tobacco [facility] Start: 01-06-2024 End: 07-13-2025 Alcoholic beverage intake Current drinker of alcohol (finding) [facility] Start: 01-06-2024 End: 07-13-2025 History of Social function [facility] Work Phone: Start: 1970 Sex assigned at Not on file N [facility] Start: 02-25-2025 End: 04-04-2025 Tobacco smoking status NHIS Smoker (finding) [facility] Start: 02-28-2025 End: 04-04-2025 Sex Female (finding) [facility] Start: 1970 Sex Assigned At Female F [facility] Start: 03-14-2025 Tobacco smoking stat us NHIS Ex-smoker [facility] Start: 03-09-2025 End: 05-11-2025 SDOH Follow up SDOH Follow up [facility] Work Phone: Medical Equipment Procedure Code Equipment Code Equipment Origin al Text Equipment Identifier Dates Wound debridement Double-lumen haemodialysis catheter, implantable [id number] FDA Start: 02-24-2025 Goals Date Patient Goal Desired Activity /State Functional Status Date Assessment Result Facility 07-13-2025 Patient Health Quest ionnaire 2 item (PHQ-2) [Reported] [facility] 05-08-2025 Functional status Patient Not at Baseline [facility] Work Phone: 04-17-2025 Patient Health Quest ionnaire 2 item (PHQ-2) [Reported] [facility] 04-17-2025 PHQ-9 quick depressi on assessment panel [Reported.PHQ] [facility] 03-14-2025 Patient Health Quest ionnaire 2 item (PHQ-2) [Reported] [facility] 03-10-2025 Functional status Patient at Baseline [facility] Work Phone: 02-23-2025 Functional status Patient Not at Baseline [facility] Work Phone: [facility] Mental Status Date Assessment Result Facility 05-08-2025 Cognitive function Cognitive Sta tus Patient at Baseline [facility] Work Phone: 03-10-2025 Cognitive function Cognitive Sta tus Patient at Baseline [facility] Work Phone: 02-23-2025 Cognitive function Cognitive Sta tus Patient at Baseline [facility] Work Phone: Clinical Notes 11-25-2023 to 07-13-2025 Ayaan Deras MD - 07/13/2025 11:30 AM EDT Note Date & Type Note Facility 07-13-2025 History of Presen t illness Narrative Images from the original note were not included. HPI Med Refill Additional comments: Amlodipine, lantus, pantoprazole, lasix,losartan--DM chato Last edited by Ayse Jon LPN on 07/13/2025 11:42 AM. Subjective Patient ID: Sourav Roque is a 55 y.o. female who presents for Diabetes and Med Refill (Amlodipine, lantus, pantoprazole, lasix,losartan--DM chato). Diabetes Mellitus Patient presents for follow up of diabetes. Current symptoms include: hyperglycemia ,hypoglycemia and paresthesia of the feet. Patient denies foot ulcerations, , nausea, polydipsia, polyuria, visual disturbances, and vomiting. Evaluation to date has included: fasting blood sugar, fasting lipid panel, hemoglobin A1C, and microalbuminuria. Home sugars: BGs range between 120 and 135 Pt has had a few hypos Pt using CGM Diabetes Pertinent negatives for diabetes include no chest pain and no fatigue. Med Refill Pertinent negatives include no chest pain or fatigue. Over the past 2 weeks, how often have you been bothered by any of the following problems? Little interest or pleasure in doing things: Not at all Feeling down, depressed, or hopeless: Not at all Patient Health Questionnaire-2 Score: 0 Current Outpatient Medications on File Prior to Visit Medication Sig Dispense Refill Adhesive Tape (Elastic Foam Tape 1 x5yd) tape 1 Application every other day 5 each 5 Blood Pressure Monitoring (Crooks Choice BP Monitor Cuff) misc 1 Device Daily 1 each 0 Continuous Glucose Sensor (FreeStyle Maria Esther 3 Plus Sensor) misc 1 each Every 15 Days 2 each 11 metoclopramide (Reglan) 5 MG tablet Take 0.5 tablets by mouth in the morning and 0.5 tablets in the evening and 0.5 tablets before bedtime. oxyCODONE-acetaminophen (Percocet) 5-325 MG tablet Take 1 tablet by mouth every 6 (six) hours if needed sertraline (Zoloft) 50 MG tablet Take 50 mg by mouth Daily sevelamer carbonate (Renvela) 800 MG tablet Take 800 mg by mouth in the morning and 800 mg at noon and 800 mg in the evening. Take with meals. [DISCONTINUED] amLODIPine (Norvasc) 10 MG tablet Take 1 tablet (10 mg) by mouth Daily 100 tablet 3 [DISCONTINUED] furosemide (Lasix) 40 MG tablet Take 1 tablet (40 mg) by mouth Daily 100 tablet 3 [DISCONTINUED] insulin glargine (Lantus SoloStar) 100 UNIT/ML pen Inject 10 Units under the skin at bedtime 9 mL 3 [DISCONTINUED] losartan (Cozaar) 100 MG tablet Take 1 tablet (100 mg) by mouth Daily 100 tablet 3 [DISCONTINUED] pantoprazole (ProtoNix) 40 MG EC tablet Take 1 tablet (40 mg) by mouth Daily 100 tablet 3 [DISCONTINUED] ondansetron (Zofran) 4 MG tablet Take 4 mg by mouth every 8 (eight) hours if needed No current facility-administered medications on file prior to visit. I have reviewed and reconciled the history and medication list with the patient today. Allergies Allergen Reactions Penicillin V Latex Rash Social History Tobacco Use Smoking status: Former Types: Cigarettes Smokeless tobacco: Current Vaping Use Vaping status: Every Day Substance Use Topics Alcohol use: Yes No family history on file. Past Medical History: Diagnosis Date Allergies Closed fracture of ankle Closed fracture of humerus Closed fracture of unspecified part of humerus Closed fracture of metatarsal bone Crushing injury of left leg Depression Dysphagia H/O echocardiogram 07/31/2022 ECHO EF 60-65% History of being hospitalized 10/30/2023 Acute on Chronic CHF, Covid 19, Acute Hypoxic Resp. Failure, Pneumonia, TROY Pleural effusion 07/30/2022 Bilateral Pleural Effusions, Acute Hypoxic Resp. Failure, Acute HFpEF Severe sepsis (HCC) 11/21/2022 Severe Sepsis d/t Breast Cellulitis, TROY, HFpEF Past Surgical History: Procedure Laterality Date COLONOSCOPY W/ POLYPECTOMY 07/26/2021 Colonoscopy w/ Polypectomy HYSTERECTOMY 06/25/2018 OTHER SURGICAL HISTORY plates/pins--stainless steel;Disease:crush injury left leg OTHER SURGICAL HISTORY left wrist injury THORACENTESIS 07/31/2022 Visit Vitals BP 126/70 Pulse 78 Ht 4' 10 Wt 176 lb SpO2 95% BMI 36.78 kg/m Smoking Status Former BSA 1.81 m Review of Systems Constitutional: Negative for fatigue. Cardiovascular: Negative for chest pain. Objective Physical Exam Constitutional: Appearance: She is obese. HENT: Head: Normocephalic. Eyes: Pupils: Pupils are equal, round, and reactive to light. Cardiovascular: Rate and Rhythm: Normal rate and regular rhythm. Heart sounds: Normal heart sounds. Pulmonary: Effort: Pulmonary effort is normal. Breath sounds: Normal breath sounds. Abdominal: General: Bowel sounds are normal. There is no distension. Palpations: Abdomen is soft. Tenderness: There is no abdominal tenderness. There is no guarding. Comments: Large panus, linear abdominal wound Neurological: General: No focal deficit present. Mental Status: She is alert. Psychiatric: Mood and Affect: Mood normal. Thought Content: Thought content normal. Judgment: Judgment normal. Assessment/Plan Diagnoses and all orders for this visit: Type 2 diabetes mellitus with diabetic neuropathy, with long-term current use of insulin ([facility]) - POCT Glycated hemoglobin, total - Patient is seen for [id number] encounter today and has a current diagnosis of Diabetes. It is medically necessary for patient to have a continuous glucose monitor (CGM) due to current medications and required frequency of testing. It is medically necessary for patient to test glucose levels 3 or more times a day for proper management. Patient (or caregiver) has been sufficiently trained on the CGM system's use. The CGM is being prescribed in accordance with the FDA's indications for use of the system. The CGM will be used to improve glycemic control for the patient and to help prevent problematic hypoglycemic episodes which can lead to increased ER utilization or even . Will continue to monitor the patient routinely to assess benefit and compliance with use of the CGM. Will also monitor HgbA1c routinely. Radiculopathy, lumbar region - Handicap Placard Lifetime Chronic diastolic heart failure (HCC) - amLODIPine (Norvasc) 10 MG tablet; Take 1 tablet (10 mg) by mouth Daily - furosemide (Lasix) 40 MG tablet; Take 1 tablet (40 mg) by mouth Daily - losartan (Cozaar) 100 MG tablet; Take 1 tablet (100 mg) by mouth Daily Type 2 diabetes 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, with long-term current use of insulin ([facility]) - insulin glargine (Lantus SoloStar) 100 UNIT/ML pen; Inject 10 Units under the skin at bedtime GERD without esophagitis - pantoprazole (ProtoNix) 40 MG EC tablet; Take 1 tablet (40 mg) by mouth Daily ESRD (end stage renal disease) ([facility]) Open wound of abdominal wall, subsequent encounter - Improving, still on wound vac Follow up in about 3 months (around 10/12/2025) for Routine F/U. documented in this encounter [facility] 05-08-2025 History and physi yg note [facility] enter 05-08-2025 Radiology Diagnostic study note [facility] [place] [address] CT Scan Report Signed Patient: Sourav Roque MR#: [id number] : 1970 Acct:[id number] Age/Sex: 55 / F ADM Date: 5 Loc: ER Room: Type: [facility] ER Attending Dr: Copies to: Oh Landa PA-C~ Ordering Provider: Oh Landa PA-C Date of Service: 05/08/25 CT/CT abdomen pelvis w con: abdominal wounds CT abdomen pelvis w con 05/08/2025 5:12 PM SIGNS AND SYMPTOMS: Missed dialysis, open sores along the abdomen TECHNIQUE: Multidetector ct axial images of the abdomen and pelvis were obtainedwith IV contrast. Multiplanar reformats were performed and reviewed to further define anatomy and possible pathology. CT was performed with one or more of thefollowing dose reduction techniques: Automated exposure control, adjustment of the mA and/or kV according to patient size, or use of iterative reconstruction technique. COMPARISON: 03/01/2025 FINDINGS: Lower Chest: Atherosclerotic changes are noted in the coronary arteries. Calcifications are noted along the mitral annulus. There is a small left-sided pleural effusion. There is dependent atelectasis at the left lung base. ABDOMEN: Liver: Within normal limits. Bile Ducts: Normal caliber. Gallbladder: No calcified gallstones. Normal caliber wall. Pancreas: Within normal limits. Spleen: Calcified granulomas are present in the spleen. Adrenals: Within normal limits. Kidneys: There is perinephric fat stranding. No hydronephrosis. Pelvis: Reproductive Organs: No pelvic masses. Ureters: Within normal limits. Bladder: Within normal limits. Bowel: Normal caliber. There is a normal appendix in the right lower quadrant. There are a few uncomplicated colonic diverticula. Mesenteric Lymph Nodes: No enlarged mesenteric lymph nodes. Peritoneum: No ascites or free air, no fluid collection. Vessels: Atherosclerotic changes are noted throughout the abdominal aorta and its branches. Retroperitoneum: Within normal limits. Abdominal Wall: Soft tissue defect is noted in a bandlike configuration along the abdominal pannus with subcutaneous emphysema. This is new when compared to the prior exam. There is accompanying skin thickening at the margins of the areas of ulceration suggesting cellulitis. Bones: Degenerative changes are noted in the thoracolumbar spine. Degenerative changes are present in the sacroiliac joints. CT/CT abdomen pelvis w con IMPRESSION: Soft tissue defect is noted in a bandlike configuration along the abdominal pannus with subcutaneous emphysema. This is new when compared to the prior exam. There is accompanying skin thickening at the margins of the areas of ulceration suggesting cellulitis. There is a small left-sided pleural effusion. There is perinephric fat stranding bilaterally similar to the prior exam. No bowel obstruction or obstructive uropathy. Impression dictated by: Pancho Lilly M.D. 05/08/2025 5:45 PM Dictation Location: [id number]-17 Transcribed By: LIZBETH 05/08/251744 Dictated By: Pancho Lilly II, MD 05/08/251737 Signed By: 05/08/251744 [facility] Work Phone: 04-25-2025 Evaluation note Diagnosis Onset Date Resolution End stage renal disease on dialysis acute April 25, 2025 12:04pm Anemia of renal disease acute J [id number] 6:02pm Benign hypertension with end-stage renal disease acute April 6:02pm Cellulitis of abdominal wall acute May 08, 2025 6:02pm Diabetes acute May 08 6:02pm End stage renal disease on dialysis acute May 08, 2025 6:02pm Gastritis acute May 08 6:02pm Gastroparesis acute May 08, 2025 6:02pm Hypertension acute May 08, 025 6:02pm Necrosis of surgical wound acute May 08, 2025 6:02pm Open abdominal wall wound acute May 08, 2025 6:02pm NARDA (obstructive sleep apnea) acute May 08, 2025 6:02pm Secondary hyperparathyroidism acute May 08, 2 025 6:02pm Type 2 diabetes mellitus with diabetic chronic kidney disease acute May 08, 2025 6:02pm Missed dialysis resolved April 6:02pm ESRD (end stage renal disease) deleted May 08, 2025 6:02pm Calciphylaxis acute May 30, 2025 9:17am Diabetes acute May 30 9:17am End stage renal disease on dialysis acute May 30, 2025 9:17am Gastroparesis acute May 30, 2025 9:17am Necrosis of surgical wound acute May 30, 2025 9:17am Open abdominal wall wound acute May 30, 2025 9:17am ESRD (end stage renal disease) deleted May 30, 2025 9:17am Anemia of renal disease acute A [id number] 1:04pm Benign hypertension with end-stage renal disease acute May [id number] 1:04pm Cellulitis of abdominal wall acute June 15 1:04pm ESRD (end stage renal disease) acute June 15 1:04pm Hyperkalemia acute June 15, 2025 1:04pm Hypertension acute June 15, 2025 1:04pm Necrosis of surgical wound acute June 15, 2025 1:04pm Open abdominal wall wound acute June 15, 2025 1:04pm Secondary hyperparathyroidism acute June 15, 2025 1:04pm Type 2 diabetes mellitus with diabetic chronic kidney disease acute June 15 1:04pm [facility] Work Phone: 1(912) 884-558207-01-2025 Evaluation note* Diagnosis Onset Date Resolution Status Admit Date End stage renal disease on dialysis acute April 25, 2025 1 2:04pm Anemia of renal disease acute J [id number] 6:02pm Benign hypertension with end-stage renal disease acute April 6:02pm Cellulitis of abdominal wall acute May 08, 2025 6:02pm Diabetes acute May 08 6:02pm End stage renal disease on dialysis acute May 08, 2025 6:02pm Gastritis acute May 08 6:02pm Gastroparesis acute May 08, 2025 6:02pm Hypertension acute May 08, 2 025 6:02pm Necrosis of surgical wound acute May 08, 2025 6:02pm Open abdominal wall wound acute May 08, 2025 6:02pm NARDA (obstructive sleep apnea) acute May 08, 2025 6:02pm Secondary hyperparathyroidism acute May 08, 2025 6:02pm Type 2 diabetes mellitus wit h diabetic chronic kidney disease acute May 08, 2025 6:02pm Missed dialysis resolved April 6:02pm ESRD (end stage renal disease) delet ed May 08, 2025 6:02pm Anemia of renal disease acute A [id number] 1:04pm Benign hypertension with end-stage renal disease acute May [id number] 1:04pm Cellulitis of abdominal wall acute June 15, 2025 1:04pm ESRD (end stage renal disease) acute June 15, 2025 1:04pm Hyperkalemia acute June 15, 2025 1:04pm Hypertension acute June 15, 2025 1:04pm Necrosis of surgical wound acute June 15, 2025 1:04pm Open abdominal wall wound acute June 15, 2025 1:04pm Secondary hyperparathyroidism acute June 15, 2025 1:04pm Type 2 diabetes mellitus wit h diabetic chronic kidney disease acute June 15, 2025 1:04pm Calciphylaxis acute June [id number] 9:54am Diabetes acute June 27, 2025 9:54am End stage renal disease on dialysis acute June 27 9:54am Gastroparesis acute June [id number] 9:54am Necrosis of surgical wound acute June 27, 2025 9:54am Open abdominal wall wound acute June 27, 2025 9:54am ESRD (end stage renal disease) delet ed June 27, 2025 9:54am [facility] Work Phone: 1(492) 282-567706-23-2025 History of Present illness Narrative* Ayaan Deras MD - 04/17/2025 10:30 AM EDT Images from the original note were not included. Subjective Patient ID: Sourav Roque is a 55 y.o. female who presents for Diabetes.--need note giving an estimated RTW date Would like to discuss starting med for depression Diabetes Mellitus Patient presents for follow up of diabetes. Current symptoms include: hyperglycemia and paresthesiaof the feet. Patient denies foot ulcerations, hypoglycemia , nausea, polydipsia, polyuria, visual disturbances, and vomiting. Evaluation to date has included: fasting blood sugar, fasting lipid panel, hemoglobin A1C, and microalbuminuria. Home sugars: BGs range between 180 and 220. Pt only uses lantus if her sugars are over 300 Pt family has noticed she is seeming depressed would like to discuss options for medication Was on buspar and zoloft in past she does not want either of those she did not like side effects Pt using CGM Diabetes Pertinent negatives for diabetes include no chest pain and no fatigue. Over the past 2 weeks, how often have you been bothered by any of the following problems? Trouble falling or staying asleep, or sleeping too much: Several days Feeling tired or having little energy: Several days Poor appetite or overeating: Several days Feeling bad about yourself - or that you are a failure or have let yourself or your family down: Several days Trouble concentrating on things, such as reading the newspaper or watching television: Not at all Moving or speaking so slowly that other people could have noticed? Or the opposite - being so fidgety or restless that you have been moving around a lot more than usual.: Not at all Thoughts that you would be better off or hurting yourself in some way: Not at all Patient Health Questionnaire-9 Score: 8 If you checked off any problems on this questionnaire so far, How difficult have these problems made it for you to do your work, take care of things at home, or get along with other people?: Somewhat difficult Current Outpatient Medications on File Prior to Visit Medication Sig Dispense Refill Adhesive Tape (Elastic Foam Tape 1 x5yd) tape 1 Application every other day 5 each 5 amLODIPine (Norvasc) 10 MG tablet Take 1 tablet (10 mg) by mouth Daily 100 tablet 3 Blood Pressure Monitoring (Crooks Choice BP Monitor Cuff) misc 1 Device Daily 1 each 0 Continuous Glucose Break Out Man (Dexcom G7 Break Out Man) device 1 Device Daily 1 each 0 Continuous Glucose Sensor (Dexcom G7 Sensor) misc 1 Device Every 10 (ten) days 9 each 3 furosemide (Lasix) 40 MG tablet Take 1 tablet (40 mg) by mouth Daily 100 tablet 3 insulin glargine (Lantus SoloStar) 100 UNIT/ML pen Inject 10 Units under the skin at bedtime 9 mL 3 losartan (Cozaar) 100 MG tablet Take 1 tablet (100 mg) by mouth Daily 100 tablet 3 metoclopramide (Reglan) 5 MG tablet Take 0.5 tablets by mouth in the morning and 0.5 tablets in theevening and 0.5 tablets before bedtime. ondansetron (Zofran) 4 MG tablet Take 4 mg by mouth every 8 (eight) hours if needed oxyCODONE-acetaminophen (Percocet) 5-325 MG tablet Take 1 tablet by mouth every 6 (six) hours if needed pantoprazole (ProtoNix) 40 MG EC tablet Take 1 tablet (40 mg) by mouth Daily 100 tablet 3 sevelamer carbonate (Renvela) 800 MG tablet Take 800 mg by mouth in the morning and 800 mg at noon and 800 mg in the evening. Take with meals. [DISCONTINUED] amLODIPine (Norvasc) 10 MG tablet Take 10 mg by mouth Daily [DISCONTINUED] furosemide (Lasix) 40 MG tablet Take 40 mg by mouth in the morning. [DISCONTINUED] losartan (Cozaar) 100 MG tablet Take 100 mg by mouth Daily [DISCONTINUED] pantoprazole (ProtoNix) 40 MG EC tablet Take 1 tablet (40 mg) by mouth in the morning. 100 tablet 3 [DISCONTINUED] sodium polystyrene sulfonate (Kayexalate) powder Take 15 g by mouth 1 (one) time Take 120 ml PO as directed by Dialysis Clinic - emgergency use only - [DISCONTINUED] vancomycin (Vancocin) 125 MG capsule Take 125 mg by mouth in the morning and 125 mg at noon and 125 mg in the evening and 125 mg before bedtime. No current facility-administered medications on file prior to visit. I have reviewed and reconciled the history and medication list with the patient today. Allergies Allergen Reactions Latex Rash Social History Tobacco Use Smoking status: Former Types: Cigarettes Smokeless tobacco: Current Vaping Use Vaping status: Every Day Substance Use Topics Alcohol use: Yes No family history on file. Past Medical History: Diagnosis Date Allergies Closed fracture of ankle Closed fracture of humerus Closed fracture of unspecified part of humerus Closed fracture of metatarsal bone Crushing injury of left leg Depression Dysphagia H/O echocardiogram 07/31/2022 ECHO EF 60-65% History of being hospitalized 10/30/2023 Acute on Chronic CHF, Covid 19, Acute Hypoxic Resp. Failure, Pneumonia, TROY Pleural effusion 07/30/2022 Bilateral Pleural Effusions, Acute Hypoxic Resp. Failure, Acute HFpEF Severe sepsis (HCC) 11/21/2022 Severe Sepsis d/t Breast Cellulitis, TROY, HFpEF Past Surgical History: Procedure Laterality Date COLONOSCOPY W/ POLYPECTOMY 07/26/2021 Colonoscopy w/ Polypectomy HYSTERECTOMY 06/25/2018 OTHER SURGICAL HISTORY plates/pins--stainless steel;Disease:crush injury left leg OTHER SURGICAL HISTORY left wrist injury THORACENTESIS 07/31/2022 Visit Vitals BP 128/72 Pulse 79 Ht 4' 10 Wt 164 lb SpO2 94% BMI 34.28 kg/m Smoking Status Former BSA 1.74 m Review of Systems Constitutional: Negative for fatigue. Cardiovascular: Negative for chest pain. Objective Physical Exam Constitutional: Appearance: She is obese. HENT: Head: Normocephalic. Eyes: Pupils: Pupils are equal, round, and reactive to light. Cardiovascular: Rate and Rhythm: Normal rate and regular rhythm. Heart sounds: Normal heart sounds. Pulmonary: Effort: Pulmonary effort is normal. Breath sounds: Normal breath sounds. Abdominal: General: Bowel sounds are normal. There is no distension. Palpations: Abdomen is soft. Tenderness: There is abdominal tenderness. There is no guarding. Comments: Large panus, large open abdominal wounds Neurological: General: No focal deficit present. Mental Status: She is alert. Psychiatric: Mood and Affect: Mood normal. Thought Content: Thought content normal. Judgment: Judgment normal. Office Visit on 04/17/2025 Component Date Value Ref Range Status Hemoglobin A1C 04/17/2025 5.9 Final Assessment/Plan Diagnoses and all orders for this visit: Open wound of abdominal wall, subsequent encounter - The patient is seeing a medical record consultant for this condition, treatment is deferred to that specialist. Correspondence from that specialist and any available testing were reviewed during today's visit. C. difficile diarrhea - Finished treatment, bowel movements are now normal Morbid (severe) obesity due to excess calories ([facility]) Body mass index (BMI) 40.0-44.9, adult ([facility]) ESRD (end stage renal disease) ([facility]) Hemodialysis status 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 2 diabetes mellitus ([facility]) - Diabetes well controlled at present. Follow up in about 3 months (around 07/18/2025) for Routine F/U. documented in this encounterGolden Valley Memorial [id number] History of Present illness Narrative* DONAVAN Bradshaw - 03/14/2025 2:00 PM EDT Images from the original note were not included. HPI Med Refill Additional comments: Oxycodone Last edited by Nubia Lee LPN on 03/14/2025 2:00 PM. Subjective Patient ID: Sourav Roque is a 55 y.o. female who presents for [facility] [place]. Sourav is present today for [facility] follow [place]. Admitted from 02/23/25 - 03/10/25 Dx. Renal failure, ESRD, Calciphylaxis, Metabolic acidosis, skin necrosis, C-diff. Prescribed Vancomycin, Amlodipine, Furosemide, Losartan, Pantoprazole, Percocet, Renvela. She has started dialysis and is doing that M /W/F. She does have necrosis on her abdomen and has been seeing wound care at [facility]. She is wanting someone to look at her wound because the tape does not seem to be sticking. Using Therahoney Gel for her wound. Was told to follow up with Dr. Liliana Soliz, Infectious Disease as needed. Home Health will be coming to the house for nursing services. Dr. Chavez saw her in the office today and the wound was redressed. Current Outpatient Medications on File Prior to Visit Medication Sig Dispense Refill amLODIPine (Norvasc) 10 MG tablet Take 10 mg by mouth Daily losartan (Cozaar) 100 MG tablet Take 100 mg by mouth Daily oxyCODONE-acetaminophen (Percocet) 5-325 MG tablet Take 1 tablet by mouth See administration instructions Every 4-6 hours prn severe pain sevelamer carbonate (Renvela) 800 MG tablet Take 800 mg by mouth in the morning and 800 mg at noon and 800 mg in the evening. Take with meals. sodium polystyrene sulfonate (Kayexalate) powder Take 15 g by mouth 1 (one) time Take 120 ml PO as directed by Dialysis Clinic - emgergency use only - vancomycin (Vancocin) 125 MG capsule Take 125 mg by mouth in the morning and 125 mg at noon and 125mg in the evening and 125 mg before bedtime. furosemide (Lasix) 40 MG tablet Take 40 mg by mouth in the morning. insulin glargine (Lantus SoloStar) 100 UNIT/ML pen Inject 60 Units under the skin in the morning. 5mL 12 pantoprazole (ProtoNix) 40 MG EC tablet Take 1 tablet (40 mg) by mouth in the morning. 100 tablet 3 [DISCONTINUED] atorvastatin (Lipitor) 40 MG tablet Take 1 tablet (40 mg) by mouth in the morning. (Patient not taking: Reported on 03/14/2025) 100 tablet 3 [DISCONTINUED] carvedilol (Coreg) 6.25 MG tablet Take by mouth 2 (two) times a day with meals (Patient not taking: Reported on 03/14/2025) [DISCONTINUED] cloNIDine (Catapres) 0.2 MG tablet Take 0.2 mg by mouth every 8 (eight) hours (Patient not taking: Reported on 03/14/2025) [DISCONTINUED] Continuous Blood Gluc Break Out Man (Dexcom G4 elem end frazer) device Inject 1 Device under the skin. [DISCONTINUED] Continuous Blood Gluc Sensor (Dexcom G4 Sensor) misc Place 1 application on the skinevery 14 (fourteen) days 6 each 11 [DISCONTINUED] Continuous Blood Gluc Transmit (Dexcom G4 elem transmitter) misc Inject 1 each under the skin every 14 (fourteen) days 6 each 3 [DISCONTINUED] ferrous sulfate 325 (65 Fe) MG tablet Take 1 tablet (325 mg) by mouth in the morning. Take with food. (Patient not taking: Reported on 03/14/2025) 100 tablet 3 [DISCONTINUED] potassium chloride ER (Micro-K) 10 MEQ ER capsule Take 1 capsule (10 mEq) by mouth in the morning. (Patient not taking: Reported on 03/14/2025) 100 capsule 3 [DISCONTINUED] traZODone (Desyrel) 100 MG tablet Take 1 tablet (100 mg) by mouth at bedtime (Patient not taking: Reported on 03/14/2025) 100 tablet 3 No current facility-administered medications on file prior to visit. I have reviewed and reconciled the history and medication list with the patient today. No Known Allergies Social History Tobacco Use Smoking status: Former Types: Cigarettes Smokeless tobacco: Current Vaping Use Vaping status: Every Day Substance Use Topics Alcohol use: Yes No family history on file. Past Medical History: Diagnosis Date Allergies Closed fracture of ankle Closed fracture of humerus Closed fracture of unspecified part of humerus Closed fracture of metatarsal bone Crushing injury of left leg Depression (CMS/HCC) Dysphagia H/O echocardiogram 07/31/2022 ECHO EF 60-65% History of being hospitalized 10/30/2023 Acute on Chronic CHF, Covid 19, Acute Hypoxic Resp. Failure, Pneumonia, TROY Pleural effusion 07/30/2022 Bilateral Pleural Effusions, Acute Hypoxic Resp. Failure, Acute HFpEF Severe sepsis 11/21/2022 Severe Sepsis d/t Breast Cellulitis, TROY, HFpEF Past Surgical History: Procedure Laterality Date COLONOSCOPY W/ POLYPECTOMY 07/26/2021 Colonoscopy w/ Polypectomy HYSTERECTOMY 06/25/2018 OTHER SURGICAL HISTORY plates/pins--stainless steel;Disease:crush injury left leg OTHER SURGICAL HISTORY left wrist injury THORACENTESIS 07/31/2022 Visit Vitals BP 168/72 Pulse 87 Resp 16 Ht 4' 10 Wt 197 lb 9.6 oz SpO2 96% BMI 41.30 kg/m Smoking Status Former BSA 1.91 m Review of Systems Constitutional: Negative for chills, fatigue and fever. Respiratory: Negative for cough, shortness of breath and wheezing. Cardiovascular: Negative for chest pain, palpitations and leg swelling. Gastrointestinal: Positive for abdominal pain and diarrhea (Pasty and foul smelling). Negative for constipation, nausea and vomiting. Skin: Positive for rash and wound. Neurological: Positive for weakness. Objective Physical Exam Constitutional: General: She is not in acute distress. Appearance: She is well-developed. She is obese. HENT: Head: Normocephalic and atraumatic. Eyes: General: No scleral icterus. Conjunctiva/sclera: Conjunctivae normal. Cardiovascular: Rate and Rhythm: Normal rate and regular rhythm. Heart sounds: Normal heart sounds. No murmur heard. Pulmonary: Effort: Pulmonary effort is normal. No respiratory distress. Breath sounds: Normal breath sounds. No wheezing, rhonchi or rales. Skin: General: Skin is warm and dry. Neurological: General: No focal deficit present. Mental Status: She is alert and oriented to person, place, and time. Motor: Weakness present. Gait: Gait abnormal. Comments: Unable go step on one step to get onto table today, became short of breath with trying twice. Psychiatric: Mood and Affect: Mood normal. Behavior: Behavior is agitated. Assessment/Plan Diagnoses and all orders for this visit: Type 2 diabetes 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, with long-term current use of insulin ([facility]) - insulin glargine (Lantus SoloStar) 100 UNIT/ML pen; Inject 10 Units under the skin at bedtime - Continuous Glucose Break Out Man (Dexcom G7 Break Out Man) device; 1 Device Daily - Continuous Glucose Sensor (Dexcom G7 Sensor) misc; 1 Device Every 10 (ten) days Sent in order for Dexcom sensor and end frazer for patient to monitor her glucose routinely. Providedher with Lantus rx to use if her glucose readings increase. Per hospital documentation her HgbA1c was 6.0 while in patient. C. difficile diarrhea Continue Vancomycin as prescribed. Symptoms are slowly improving. Stay hydrated. ESRD (end stage renal disease) ([facility]) - Ambulatory referral to Home Health; Future She is to contact Nephrology, Dr. Martinez, to schedule a follow up appointment. Currently getting dialysis Thursday, Thursday, and Thursday. Skin necrosis ([facility]) - oxyCODONE-acetaminophen (Percocet) 5-325 MG tablet; Take 0.5-1 tablets by mouth every 6 (six) hours if needed for severe pain for up to 7 days Every 4-6 hours prn severe pain - Adhesive Tape (Elastic Foam Tape 1 x5yd) tape; 1 Application every other day prison is coming to the house for dressing changes. Sent in Foam Tape for pt and the current tape is not working well and the bandage moving is causing her consistent pain. Discussed risks of this class of medication including the potential for abuse, reliance. Discussed importance of properly storing and disposing of the medication. Reviewed the goals of treatment, including improving pain control and improving functional status. Medication choice and dosage is appropriate for patient's current medical conditions. Reviewed the rules and regulations surrounding prescription of opioids and compliance at length with the patient. Patient will be required to be seen in our office at least every three months for monitoring. At each follow up visit I will reassess thepatient's need for the medication. Patient is to have this medication prescribed only through this office. Failure to follow the rules and regulations will result in tapering and discontinuation of medications if applicable. Patient verbalized understanding. OARRS Report was reviewed for this patient. 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 2 diabetes mellitus ([facility]) She is to contact Nephrology, Dr. Martinez, to schedule a follow up appointment. Currently getting dialysis Thursday, Thursday, and Thursday. Calciphylaxis Saw Dr. Chavez today for follow up appointment. Has Home Health set up. Hypertension secondary to other renal disorders - Blood Pressure Monitoring ([employer] Choice BP Monitor Cuff) misc; 1 Device Daily BP elevated today. She is in significant pain due to abdominal wound. She will continue her currentmedications as prescribed. On Amlodipine, Losartan and Furosemide currently. Provided her with Rx for BP cuff to monitor BP readings at home. Contact office if they do not improve. Gastroparesis Will be contacting Dr. Steph Parr, Gastroenterology for a follow up appointment. Anemia of chronic renal failure, stage 5 ([facility]) Follow up with Nephrology as per their instruction. Acute gastritis without hemorrhage, unspecified gastritis type Continue Pantoprazole as prescribed. Physical deconditioning - Ambulatory referral to Home Health; Future Today's face to face encounter with the patient was in whole, or in part, for the following medicalcondition, which is the primary reason for home health care: Physical Deconditioning. My clinical findings support this patient's homebound status (i.e. absences from home require considerable and taxing effort.) The clinical findings that support the need for home care and homebound status are because patient needs the assistance of another person to leave place of residence, impaired mobility, and increasedfall risk. It is medially necessary for patient to receive Home Health Services. She requests to see Maximiliano Goodwin PT, his phone number [phone]. The patient was seen today in follow up of recent hospital stay. All available hospital records were reviewed and discussed with the patient. Hospital discharge meds were reviewed. Any changes are asnoted. Follow up in about 4 weeks (around 04/11/2025) for Follow up with Dr. Deras.. documented in this encounterGolden Valley Memorial [id number] Evaluation note* Diagnosis Onset Date Resolution Status Admit Date Anemia of renal disease acute M ay 2024 12:32am Calciphylaxis acute February 23 12:32am Diabetes acute February 23, 2025 12:32am Elevated serum creatinine acute February 23, 2025 12:32am Encounter for assessment of decision-making capacity acute February 12:32am ESRD (end stage renal disease) acute February 23, 2025 12:32am Hyperphosphatemia acute February 12:32am Hypertension acute February 23 12:32am Intertriginous candidiasis acute February 23, 2025 12:32am Metabolic acidosis acute February 12:32am Nausea and vomiting acute February 232024 12:32am Renal failure, acute acute February 23, 2025 12:32am Skin necrosis acute February 23 12:32am [facility] Work Phone: 1(756) 632-238305-01-2025 Evaluation note* Diagnosis Onset Date Resolution Status Admit Date Anemia of renal disease acute M ay 2024 12:32am Calciphylaxis acute February 23 12:32am Clostridioides difficile diarrhea [place] February 23, 2025 12:32am Diabetes acute February 23, 2025 12:32am ESRD (end stage renal disease) acute May 1st, 2025 12:32am Gastroparesis acute February 23 12:32am Hyperphosphatemia acute February 12:32am Hypertension acute February 23 12:32am Chronic constipation inactive February 23, 2025 12:32am Metabolic acidosis inactive February 12:32am Elevated serum creatinine deleted February 23, 2025 12:32am Encounter for assessment of decision-making capacity deleted February 12:32am Intertriginous candidiasis deleted February 23, 2025 12:32am Leukocytosis deleted February 23 12:32am Nausea and vomiting deleted February 232024 12:32am Renal failure, acute deleted February 23, 2025 12:32am Skin necrosis deleted February 23 12:32am Calciphylaxis acute March 28, 025 10:07am End stage renal disease on dialysis acute March 28, 2025 10:07am Gastroparesis acute March 28, 025 10:07am Open abdominal wall wound acute March 28, 2025 10:07am [facility] Work Phone: 1([phone]) 552-292105-01-2025 Evaluation note* Diagnosis Onset Date Resolution Status Admit Date Anemia of renal disease acute M 2024 12:32am Calciphylaxis acute February 23 12:32am Clostridioides difficile diarrhea [place] February 23, 2025 12:32am Diabetes acute February 23, 2025 12:32am ESRD (end stage renal disease) acute February 23, 2025 12:32am Gastroparesis acute February 23 12:32am Hyperphosphatemia acute February 12:32am Hypertension acute February 23 12:32am Chronic constipation inactive February 23, 2025 12:32am Metabolic acidosis inactive February 12:32am Elevated serum creatinine deleted February 23, 2025 12:32am Encounter for assessment of decision-making capacity deleted February 12:32am Intertriginous candidiasis deleted February 23, 2025 12:32am Leukocytosis deleted February 23 12:32am Nausea and vomiting deleted February 232024 12:32am Renal failure, acute deleted February 23, 2025 12:32am Skin necrosis deleted February 23 12:32am Calciphylaxis acute April 25, 025 10:27am Diabetes acute April 25, 2025 10:27am End stage renal disease on dialysis acute April 25, 2025 10:27am ESRD (end stage renal disease) acute April 25, 2025 10:27am Gastroparesis acute April 25 10:27am Necrosis of surgical wound acute April 25, 2025 10:27am Open abdominal wall wound acute April 25, 2025 10:27am [facility] Work Phone: 1(442) 944-535505-01-2025 Evaluation note* Diagnosis Onset Date Resolution Status Admit Date Anemia of renal disease acute M 2024 12:32am Calciphylaxis acute February 23 12:32am Clostridioides difficile diarrhea [place] February 23, 2025 12:32am Diabetes acute February 23, 2025 12:32am ESRD (end stage renal disease) acute February 23, 2025 12:32am Gastroparesis acute February 23 12:32am Hyperphosphatemia acute February 12:32am Hypertension acute February 23 12:32am Chronic constipation inactive February 23, 2025 12:32am Metabolic acidosis inactive February 12:32am Elevated serum creatinine deleted February 23, 2025 12:32am Encounter for assessment of decision-making capacity deleted February 12:32am Intertriginous candidiasis deleted February 23, 2025 12:32am Leukocytosis deleted February 23 12:32am Nausea and vomiting deleted February 232024 12:32am Renal failure, acute deleted February 23, 2025 12:32am Skin necrosis deleted February 23 12:32am Calciphylaxis acute April 25 10:27am Diabetes acute April 25, 2025 10:27am End stage renal disease on dialysis acute April 25, 2025 10:27am ESRD (end stage renal disease) acute April 25, 2025 10:27am Gastroparesis acute April 25 10:27am Necrosis of surgical wound acute April 25, 2025 10:27am Open abdominal wall wound acute April 25, 2025 10:27am End stage renal disease on dialysis acute April 25, 2025 12:04pm Anemia of renal disease acute J arie 2024 6:02pm Cellulitis of abdominal wall acute May 08, 2025 6:02pm Diabetes acute May 08 6:02pm End stage renal disease on dialysis acute May 08, 2025 6:02pm ESRD (end stage renal disease) acute May 08, 2025 6:02pm Gastritis acute May 08 6:02pm Gastroparesis acute May 08, 2025 6:02pm Hypertension acute May 08, 025 6:02pm Missed dialysis acute April 6:02pm Necrosis of surgical wound acute May 08, 2025 6:02pm Open abdominal wall wound acute May 08, 2025 6:02pm NARDA (obstructive sleep apnea) acute May 08, 2025 6:02pm [facility] Work Phone: 1([phone] 422-633005-01-2025 Evaluation note* Diagnosis Onset Date Resolution Status Admit Date Anemia of renal disease acute M 2024 12:32am Calciphylaxis acute February 23 12:32am Clostridioides difficile diarrhea [place] February 23, 2025 12:32am Diabetes acute February 23, 2025 12:32am Gastroparesis acute February 23 12:32am Hyperphosphatemia acute February 12:32am Hypertension acute February 23 12:32am Chronic constipation inactive February 23, 2025 12:32am Metabolic acidosis inactive February 12:32am Elevated serum creatinine deleted February 23, 2025 12:32am Encounter for assessment of decision-making capacity deleted February 12:32am ESRD (end stage renal disease) delet ed February 23, 2025 12:32am Intertriginous candidiasis deleted February 23, 2025 12:32am Leukocytosis deleted February 23 12:32am Nausea and vomiting deleted February 232024 12:32am Renal failure, acute deleted February 23, 2025 12:32am Skin necrosis deleted February 23 12:32am Calciphylaxis acute April 25 10:27am Diabetes acute April 25, 2025 10:27am End stage renal disease on dialysis acute April 25, 2025 10:27am Gastroparesis acute April 25 10:27am Necrosis of surgical wound acute April 25, 2025 10:27am Open abdominal wall wound acute April 25, 2025 10:27am ESRD (end stage renal disease) delet ed April 25, 2025 10:27am End stage renal disease on dialysis acute April 25, 2025 12:04pm Anemia of renal disease acute J arie 2024 6:02pm Benign hypertension with end -stage renal disease acute May 08, 2025 6:02pm Cellulitis of abdominal wall acute May 08, 2025 6:02pm Diabetes acute May 08 6:02pm End stage renal disease on dialysis acute May 08, 2025 6:02pm Gastritis acute May 08 6:02pm Gastroparesis acute May 08, 2025 6:02pm Hypertension acute May 08, 2 025 6:02pm Missed dialysis acute April 6:02pm Necrosis of surgical wound acute May 08, 2025 6:02pm Open abdominal wall wound acute May 08, 2025 6:02pm NARDA (obstructive sleep apnea) acute May 08, 2025 6:02pm Secondary hyperparathyroidism acute May 08, 2025 6:02pm Type 2 diabetes mellitus wit h diabetic chronic kidney disease acute May 08, 2025 6:02pm ESRD (end stage renal disease) delet ed May 08, 2025 6:02pm [facility] Work Phone: 1(170) 709-874705-01-2025 Evaluation note* Diagnosis Onset Date Resolution Status Admit Date Anemia of renal disease acute M 2024 12:32am Calciphylaxis acute February 23 12:32am Clostridioides difficile diarrhea [place] February 23, 2025 12:32am Diabetes acute February 23, 2025 12:32am Gastroparesis acute February 23 12:32am Hyperphosphatemia acute February 12:32am Hypertension acute February 23 12:32am Chronic constipation inactive February 23, 2025 12:32am Metabolic acidosis inactive February 12:32am Elevated serum creatinine deleted February 23, 2025 12:32am Encounter for assessment of decision-making capacity deleted February 12:32am ESRD (end stage renal disease) delet ed February 23, 2025 12:32am Intertriginous candidiasis deleted February 23, 2025 12:32am Leukocytosis deleted February 23 12:32am Nausea and vomiting deleted February 232024 12:32am Renal failure, acute deleted February 23, 2025 12:32am Skin necrosis deleted February 23 12:32am End stage renal disease on dialysis acute April 25, 2025 12:04pm Anemia of renal disease acute J arie2024 6:02pm Benign hypertension with end -stage renal disease acute May 08, 2025 6:02pm Cellulitis of abdominal wall acute May 08, 2025 6:02pm Diabetes acute May 08 6:02pm End stage renal disease on dialysis acute May 08, 2025 6:02pm Gastritis acute May 08 6:02pm Gastroparesis acute May 08, 2025 6:02pm Hypertension acute May 08, 6:02pm Necrosis of surgical wound acute May 08, 2025 6:02pm Open abdominal wall wound acute May 08, 2025 6:02pm NARDA (obstructive sleep apnea) acute May 08, 2025 6:02pm Secondary hyperparathyroidism acute May 08, 2025 6:02pm Type 2 diabetes mellitus wit h diabetic chronic kidney disease acute May 08, 2025 6:02pm Missed dialysis resolved April 6:02pm ESRD (end stage renal disease) delet ed May 08, 2025 6:02pm Calciphylaxis acute May 30, 2025 9:17am Diabetes acute May 30 9:17am End stage renal disease on dialysis acute May 30, 2025 9:17am Gastroparesis acute May 30, 2025 9:17am Necrosis of surgical wound acute May 30, 2025 9:17am Open abdominal wall wound acute May 30, 2025 9:17am ESRD (end stage renal disease) delet ed May 30, 2025 9:17am [facility] Work Phone: 1(240) 676-526303-04-2025 Telephone encounter Note* Telephone Encounter - Suzy Florence - 12/27/2024 2:41 PM EST LVM and letter sent [facility] [id number] Miscellaneous Notes* Telephone Encounter - Suzy Florence - 12/27/2024 2:41 PM EST LVM and letter sent * Telephone Encounter - Suzy Florence - 12/26/2024 11:31 AM EST LVM * Telephone Encounter - Suzy Florence - 12/22/2024 8:29 AM EST LVM * Telephone Encounter - Ayse Jon LPN - 12/21/2024 4:31 PM EST Pt has not been seen for her chronic conditions DM, etc-- she needs to be seen ELSA [id number] Telephone encounter Note* Telephone Encounter - Suzy Florence - 12/26/2024 11:31 AM EST [facility]VM [id number] Telephone encounter Note* Telephone Encounter - Suzy Florence - 12/22/2024 8:29 AM EST LVM [id number] Telephone encounter Note* Telephone Encounter - Ayse Jon LPN - 12/21/2024 4:31 PM EST Pt has not been seen for her chronic conditions DM, etc-- she needs to be seen ELSA [id number] NotePatient here for follow up [facility] for CHF. She was seen as [...] weakness. All other systems reviewed and are negative.[facility] 11-25-2023 [facility]Cardiovascular Medicine [facility] SUBJECTIVE No chief complaint on file. Sourav Roque is a 53 y.o. female here for follow-up. HPI PMHx: HFpEF, COPD, HTN, CKD stage 3B, DM type II, obesity Patient here for follow up [facility] for CHF. She was seen as [...] chest pain and palpitations. 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 She has been off of work since her recent admission. Her weight at discharge was at 240 and now she is at 214. She has been feeling better overall. Her breathing is getting better. She c/o weakness, slowly getting better. Leg swelling is improving. She still has some residual swelling, L>R. Denies CP, dizziness/LH, palpitations. 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 (CMS/HCC) Other dysphagia Radiculopathy, lumbar region Tobacco dependence Type 2 diabetes 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 ([facility]) Past Medical History: Diagnosis Date CHF (congestive heart failure) ([facility]) Chronic kidney disease COPD (chronic obstructive pulmonary disease) ([facility]) Diabetes mellitus ([facility]) Hypertension Hypokalemia Hyponatremia Family History Problem Relation [...] m??? Medications: Current Outp (more content not included)...[facility] Evaluation noteNo Nexgence Other Evaluation note* Diagnosis Type 2 diabetes 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, with long-term current use of insulin ([facility])- Primary C. difficile diarrhea Intestinal infection due to clostridium difficile ESRD (end stage renal disease) ([facility]) End stage renal disease Skin necrosis ([facility]) Other specified disorder of skin 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 2 diabetes mellitus ([facility]) Calciphylaxis Other disorder of calcium metabolism Hypertension secondary to other renal disorders Gastroparesis Anemia of chronic renal failure, stage 5 ([facility]) Acute gastritis without hemorrhage, unspecified gastritis type Physical deconditioning Muscular wasting and disuse atrophy, not elsewhere classified documented in this encounter [facility] HealthcareEvaluation note* Diagnosis Chronic diastolic heart failure (HCC)- Primary Chronic diastolic heart failure GERD without esophagitis Esophageal reflux documented in this encounter [facility] HealthcareEvaluation note* Diagnosis Open wound of abdominal wall, subsequent encounter- Primary C. difficile diarrhea Intestinal infection due to clostridium difficile Morbid (severe) obesity due to excess calories ([facility]) Body mass index (BMI) 40.0-44.9, adult ([facility]) ESRD (end stage renal disease) (HCC) End stage renal disease Hemodialysis status Renal dialysis status 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 2 diabetes mellitus (HCC) documented in this encounter [facility] HealthcareEvaluation note* Diagnosis Type 2 diabetes mellitus with diabetic neuropathy, with long-term current use of insulin (HCC)- Primary Radiculopathy, lumbar region Thoracic or lumbosacral neuritis or radiculitis, unspecified Chronic diastolic heart failure (HCC) Chronic diastolic heart failure Type 2 diabetes 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, with long-term current use of insulin (HCC) GERD without esophagitis Esophageal reflux ESRD (end stage renal disease) (HCC) End stage renal disease Open wound of abdominal wall, subsequent encounter documented in this encounter [facility] HealthcareHistory and physical note Author Xavier Mello [facility] Note Date/Time May 08, 2025 7:12 pm [facility] [address] [place] [address] Hospitalist H&P Signed Patient: Sourav Roque MR#: [id number] : 1970 Acct:[id number] Age/Sex: 55 / F Adm Date: 5 Loc: ER Room: Type: [facility] ER Attending Dr: Copies to: MD Oh Dacosta PA-C Daniel Berry II, MD~ HPI DATE OF EXAMINATION: 05/08/25 CHIEF COMPLAINT: Abdominal pain HISTORY OF PRESENT ILLNESS: This is a 55-year-old female with significant past medical history of ESRD on dialysis, gastroparesis, anemia, chronic abdominal wound, sleep apnea, diabetes who was sent from dialysis unit for abnormal labs with elevated WBC and low hemoglobin. Patient also mentions having chronic abdominal pain with puslike drainage from the wound but denies any fever or chills. Mentions wound care following. Lab work shows WBC of 18.5, hemoglobin of 6.9, sodium 131 and potassium of 3.4 lactic acid 0.7, liver enzymes within normal limit, BNP 643, Chest x-ray-small left-sided pleural effusion as before. CT of the abdomen pelvis- soft tissue defect is noted in a bandlike configuration along the abdominal pannus with subcutaneous emphysema. This is new when compared to the prior exam. There is accompanying skin thickening at the margins of the areas of ulceration suggesting cellulitis. There is a small left-sided pleural effusion. There is perinephric fat stranding bilaterally similar to the prior exam. No bowel obstruction or obstructive uropathy. Patient got Teflaro and 1 L IV fluid in the ED. Review of Systems Review of Systems All other systems reviewed & are negative unless noted below or in HPI [facility] Medical History Dialysis patient Mon-Thu-Thu Gastroparesis ESRD (end stage renal disease) Hx of Clostridium difficile infection CHF (congestive heart failure) Anemia Chronic diarrhea Renal dialysis performed catheter rt chest Wound of abdomen Metabolic acidosis NARDA (obstructive sleep apnea) Elbow fracture, left ORIF Fracture of left leg ORIF. 3 plates, 12 pins Diabetes Surgical History History of breast surgery left -cellulitis H/O oral surgery H/O: hysterectomy Family History Mother Diabetes COPD (chronic obstructive pulmonary disease) Gastroparesis ESRD (end stage renal disease) CHF (congestive heart failure) Father Diabetes Social History Smoking Status: Current every day smoker Tobacco Type: e-cigarettes Substance Use Type: None Meds Medications and Allergies Allergies latex Allergy (Unknown, Verified 05/08/25 13:11) Rash Home Medications pantoprazole 40 mg tablet,delayed release 40 mg PO DAILY 30 days #30 tabs 03/09/25 [Rx Confirmed 05/08/25] sevelamer carbonate 800 mg tablet 800 mg PO TID.WITH.MEALS 30 days #90 tabs 03/09/25 [Rx Confirmed 05/08/25] oxycodone-acetaminophen 5 mg-325 mg tablet (Percocet) 1 tab PO Q4-6H PRN pain 6 days #20 tabs 03/10/25 [Rx Confirmed 03/30/25] acetaminophen 500 mg tablet (Tylenol Extra Strength) 1,000 mg PO Q4-6H PRN pain 03/30/25 [History Confirmed 05/08/25] insulin glargine 100 unit/mL (3 mL) subcutaneous pen (Lantus Solostar U-100 Insulin) 10 unit subcut HS PRN hyperglycemia 03/30/25 [History Confirmed 05/08/25] metoclopramide HCl 5 mg tablet 5 mg PO TID 04/25/25 [History Confirmed 05/08/25] ondansetron HCl 4 mg tablet 4 mg PO 3XW 04/25/25 [History Confirmed 05/08/25] oxycodone-acetaminophen 5 mg-325 mg tablet 1 tab PO Q6H PRN pain 7 days #28 tabs05/01/25 [Rx Confirmed 05/08/25] amlodipine 10 mg tablet 10 mg PO DAILY 05/08/25 [History Confirmed 05/08/25] furosemide 40 mg tablet 40 mg PO DAILY 05/08/25 [History Confirmed 05/08/25] losartan 100 mg tablet 100 mg PO DAILY 05/08/25 [History Confirmed 05/08/25] Exam Physical Exam Vital Signs: Temp Pulse Resp BP Pulse Ox O2 Del Method 99.3 F H 103 H 12 131/61 97 Room Air 05/08/25 18:22 05/08/25 18:22 05/08/25 18:22 05/08/25 18:22 05/08/25 18:22 05/08/25 18:22 Narrative: General: Awake alert, no acute distress HEENT: head atraumatic, normocephalic, moist mucous membranes Neck: supple no masses, no lymphadenopathy CVS: regular rate and rhythm, no murmurs or gallops Respiratory: clear to auscultation bilaterally, no wheezing or crackles, symmetric expansion GI: soft, nondistended, nontender, positive bowel sounds with no organomegaly, abdominal wound with dressing Extremity: moves all extremities, no restrictions of movements, no calf tenderness Neuro: AOx3, CN II-VII intact. Moves all extremities in all planes of motion. Skin: intact no rashes or lesions Results - Hospitalist H&P Lab Results Labs: Laboratory Last Values Corrected WBC 18.5 X10E3/uL (3.8-11.6) H 05/08/25 14:24 Uncorrected WBC Count 18.5 x10E3/uL (3.8-11.6) H 05/08/25 14:24 RBC 3.22 x10E6/uL (3.60-5.00) L 05/08/25 14:24 Hgb 6.9 g/dL (11.8-15.4) L 05/08/25 14:24 Hct 23.2 % (34.0-46.4) L 05/08/25 14:24 MCV 72.1 fl (80-100) L 05/08/25 14:24 MCH 21.4 pg (24.7-34.3) L 05/08/25 14:24 MCHC 29.7 g/dL (32.0-35.0) L 05/08/25 14:24 RDW 21.2 % (11.9-15.3) H 05/08/25 14:24 Plt Count 362 x10E3/uL (150-450) 05/08/25 14:24 MPV 7.5 fl (6.3-10.7) 05/08/25 14: Neut % (Auto) 81.7 % (.) 05/08/25 14: Lymph % (Auto) 10.6 % (.) 05/08/25 14: Terry % (Auto) 6.1 % (.) 05/08/25 14: Eos % (Auto) 0.6 % (.) 05/08/25 14: Baso % (Auto) 1.0 % (.) 05/08/25 14:24 Nucleat RBC Rel Count 0.1 /100 WBC (0-0.5) 05/08/25 14:24 Neut # (Auto) 15.1 x10E3/uL (1.8-7.7) H 05/08/25 14:24 Lymph # (Auto) 1.9 x10E3/uL (1.00-4.8) 05/08/25 14:24 Terry # (Auto) 1.1 x10E3/uL (0.0-0.8) H 05/08/25 14:24 Eos # (Auto) 0.1 x10E3/uL (0.0-0.45) 05/08/25 14:24 Baso # (Auto) 0.2 x10E3/uL (0.0-0.2) 05/08/25 14: Monocyte Dist Width 23.71 % (0.00-20.00) H 05/08/25 14:24 PT 15.2 Seconds (9.0-12.9) H 05/08/25 14: INR 1.3 05/08/25 14:24 APTT 36.6 Seconds (25.1-36.5) H 05/08/25 14:24 PHA Creatinine Clear 13.92 05/08/25 14:24 Sodium 131 mmol/L (136-145) L 05/08/25 14:24 Potassium 3.4 mmol/L (3.5-5.1) L 05/08/25 14:24 Chloride 93 mmol/L (98-107) L 05/08/25 14:24 Carbon Dioxide 26.6 mmol/L (21.0-31.0) 05/08/25 14:24 Anion Gap 14.8 mEq/L (6.0-15.0) 05/08/25 14:24 BUN 50 mg/dL (7-25) H 05/08/25 14:24 Creatinine 4.77 mg/dL (0.60-1.20) H 05/08/25 14:24 Est GFR (CKD-EPI) 10.269 mL/Min 05/08/25 14:24 Glucose 143 mg/dL (70-100) H 05/08/25 14:24 Lactic Acid 0.7 mmol/L (0.5-1.9) 05/08/25 14:24 Calcium 8.9 mg/dL (8.6-10.3) 05/08/25 14:24 Total Bilirubin 0.5 mg/dl (0.3-1.0) 05/08/25 14:24 AST 12 U/L (13-39) L 05/08/25 14:24 ALT 9 U/L (7-52) 05/08/25 14:24 Alkaline Phosphatase 156 U/L (34-104) H 05/08/25 14:24 Total Creatine Kinase 22 U/L (30-223) L 05/08/25 14:24 Troponin I High Sens 18 ng/L (0-15) H 05/08/25 14:24 B-Natriuretic Peptide 643.0 pg/mL (5-100) H 05/08/25 14:24 Total Protein 6.8 gm/dL (6.4-8.9) 05/08/25 14:24 Albumin 2.7 gm/dL (3.5-5.7) L 05/08/25 14:24 Globulin 4.1 gm/dL 05/08/25 14:24 Albumin/Globulin Ratio 0.7 05/08/25 14:24 Assessment & Plan Assessment/Plan (1) Missed dialysis: (2) Cellulitis of abdominal wall: (3) Open abdominal wall wound: (4) Necrosis of surgical wound: (5) End stage renal disease on dialysis: (6) Gastritis: (7) Gastroparesis: (8) Anemia of renal disease: (9) ESRD (end stage renal disease): (10) Hypertension: (11) NARDA (obstructive sleep apnea): (12) Diabetes: Plan This is a 55-year-old female with significant past medical history of ESRD on dialysis, gastroparesis, anemia, chronic abdominal wound, sleep apnea, diabetes who was sent from dialysis unit for abnormal labs with elevated WBC and low hemoglobin. Patient also mentions having chronic abdominal pain with puslike drainage from the wound but denies any fever or chills. Mentions wound care following. Lab work shows WBC of 18.5, hemoglobin of 6.9, sodium 131 and potassium of 3.4 lactic acid 0.7, liver enzymes within normal limit, BNP 643, Chest x-ray-small left-sided pleural effusion as before. CT of the abdomen pelvis- soft tissue defect is noted in a bandlike configuration along the abdominal pannus with subcutaneous emphysema. This is new when compared to the prior exam. There is accompanying skin thickening at the margins of the areas of ulceration suggesting cellulitis. There is a small left-sided pleural effusion. There is perinephric fat stranding bilaterally similar to the prior exam. No bowel obstruction or obstructive uropathy. Patient got Teflaro and 1 L IV fluid in the ED. Plan: - Admit to regular nursing for - Continue on Teflaro next and follow-up blood culture and wound culture - ID consulted-appreciate recommendation - Nephrology consulted for dialysis - Continue p.o. medications - Heartedly diet - Full code IP vs OBS Justification Based on differential dx, clinical care plan, and risk of adverse events, if untreated, in my clinical judgement this patient requires an acute care setting as: INPATIENT because of an expectation of an over 2 midnight stay. Estimated length of stay (# of days): 3 Documented By: Xavier Mello MD 05/08/251906 Signed By: <Electronically signed by Xavier Mlelo MD> 05/08/251911 [facility] Work Phone: History general Narrative - Reported* Type Description Date Medical History Hypercholesteremia Medical History Type II diabetes mellitus Surgical History D&C Surgical History scar tissues Surgical History fracture repair ankle left elbo w left Surgical History oral surgery Surgical History hysterectomy Surgical History tissue removed from left breast due to infection Hospitalization History tissue infection in the left breast 11/2022 [facility] Other Hospital Discharge instructions Additional Instructions Wound/Ulcer Instructions/Orders Abdominal wounds: Dressing: Cleanse with VASHE, collagen silver , adaptic, alginate, ABD, foam tape [facility] Work Phone: Hospital Discharge instructions Additional Instructions Resume negative pressure wound therapy for abdominal wound 3 times a week. [facility] Work Phone: Hospital Discharge instructions Additional Instructions Abdominal wound (until home wound vac arrives)- clean wound with Vashe. Honey gel to the wound bed. Top with Adaptic and gauze to fill wound bed. ABD pads. Secure with paper tape. /[facility] Work Phone: Summary Purpose Family History No Family History Records Found Relationship Condition Age at Onset Recorded Date/T darlyn mother Diabetes mellitus Unknown Chronic obstructive pulmonary disease Unk nown father Diabetes mellitus Unknown father Unknown Diabetes mellitus Unknown Relationship Condition Age at Onset Recorded Date/T darlyn mother Diabetes mellitus Unknown Chronic obstructive pulmonary disease Unk nown Gastroparesis Unknown End-stage renal disease Unknown Congestive heart failure Unknown father Diabetes mellitus Unknown Unknown Advance Directives No Advanced Directives Records Found Advance Directive Response Recorded Date/ Time Advance Directives No June 1:45pm Chief Complaint and Reason for Visit Chief Complaint Admit Date Renal Failure February 23, 2025 12:32a m Renal Failure February 23, 2025 10:52a m Renal Failure February 23, 2025 11:41a m Renal Failure February 24, 2025 1:48pm Renal Failure February 25, 2025 9:09am TROY February 27, 2025 9:11am Reason for Visit Admit Date Anemia of renal disease February 23, 2025 12 :32am Calciphylaxis February 23, 2025 12:32a m Diabetes February 23, 2025 12:32a m Elevated serum creatinine February 23, 2025 12:32am Encounter for assessment of decision-jay ing capacity February 23, 2025 12:32am ESRD (end stage renal disease) February 23, 2025 12:32am Hyperphosphatemia February 23, 2025 12:32a m Hypertension February 23, 2025 12:32a m Intertriginous candidiasis February 23, 2025 12:32am Metabolic acidosis February 23, 2025 12:32a m Nausea and vomiting February 23, 2025 12:32a m Renal failure, acute February 23, 2025 12:32 am Skin necrosis February 23, 2025 12:32a m Chief Complaint Admit Date Renal Failure February 23, 2025 12:32a m Renal Failure February 23, 2025 10:52a m Renal Failure February 23, 2025 11:41a m Renal Failure February 24, 2025 1:48pm Renal Failure February 25, 2025 9:09am TROY February 27, 2025 9:11am Renal Failure February 28, 2025 2:09pm Renal Failure March 02, 2025 9:39am Renal Failure March 02, 2025 12:02p m Renal Failure March 09, 2025 10:49 am Renal Failure March 09, 2025 12:10 pm Open Wound- post op March 28, 2025 10:07 am Abdominal Wound March 30, 2025 1:59p m Reason for Visit Admit Date Anemia of renal disease February 23, 2025 12 :32am Calciphylaxis February 23, 2025 12:32a m Clostridioides difficile diarrhea February 12:32am Diabetes February 23, 2025 12:32a m ESRD (end stage renal disease) February 23, 2025 12:32am Gastroparesis February 23, 2025 12:32a m Hyperphosphatemia February 23, 2025 12:32a m Hypertension February 23, 2025 12:32a m Chronic constipation February 23, 2025 12:32 am Metabolic acidosis February 23, 2025 12:32a m Elevated serum creatinine February 23, 2025 12:32am Encounter for assessment of decision-jay ing capacity February 23, 2025 12:32am Intertriginous candidiasis February 23, 2025 12:32am Leukocytosis February 23, 2025 12:32a m Nausea and vomiting February 23, 2025 12:32a m Renal failure, acute February 23, 2025 12:32 am Skin necrosis February 23, 2025 12:32a m Calciphylaxis March 28, 2025 10:07 am End stage renal disease on dialysis March 28, 2025 10:07am Gastroparesis March 28, 2025 10:07 am Open abdominal wall wound March 28, 2025 10:07am Chief Complaint Admit Date Renal Failure February 23, 2025 12:32a m Renal Failure February 23, 2025 10:52a m Renal Failure February 23, 2025 11:41a m Renal Failure February 24, 2025 1:48pm Renal Failure February 25, 2025 9:09am TROY February 27, 2025 9:11am Renal Failure February 28, 2025 2:09pm Renal Failure March 02, 2025 9:39am Renal Failure March 02, 2025 12:02p m Renal Failure March 09, 2025 10:49 am Renal Failure March 09, 2025 12:10 pm Open Wound- post op March 28, 2025 10:07 am Abdominal Wound March 30, 2025 1:59p m Abdominal Wound April 04, 2025 10:0 5am Chief Complaint Admit Date Renal Failure February 23, 2025 12:32a m Renal Failure February 23, 2025 10:52a m Renal Failure February 23, 2025 11:41a m Renal Failure February 24, 2025 1:48pm Renal Failure February 25, 2025 9:09am TROY February 27, 2025 9:11am Renal Failure February 28, 2025 2:09pm Renal Failure March 02, 2025 9:39am Renal Failure March 02, 2025 12:02p m Renal Failure March 09, 2025 10:49 am Renal Failure March 09, 2025 12:10 pm Abdominal Wound March 30, 2025 1:59p m Abdominal Wound April 04, 2025 10:0 5am Z01.818 N18.6 April 18, 2025 12:4 4pm Open Wound- post op April 25, 2025 10:[address] Martinez for port placement Apr 12:04pm Reason for Visit Admit Date Anemia of renal disease February 23, 2025 12 :32am Calciphylaxis February 23, 2025 12:32a m Clostridioides difficile diarrhea February 12:32am Diabetes February 23, 2025 12:32a m ESRD (end stage renal disease) February 23, 2025 12:32am Gastroparesis February 23, 2025 12:32a m Hyperphosphatemia February 23, 2025 12:32a m Hypertension February 23, 2025 12:32a m Chronic constipation February 23, 2025 12:32 am Metabolic acidosis February 23, 2025 12:32a m Elevated serum creatinine February 23, 2025 12:32am Encounter for assessment of decision-jay ing capacity February 23, 2025 12:32am Intertriginous candidiasis February 23, 2025 12:32am Leukocytosis February 23, 2025 12:32a m Nausea and vomiting February 23, 2025 12:32a m Renal failure, acute February 23, 2025 12:32 am Skin necrosis February 23, 2025 12:32a m Calciphylaxis April 25, 2025 10:27 am Diabetes April 25, 2025 10:27 am End stage renal disease on dialysis April 25, 2025 10:27am ESRD (end stage renal disease) April 25, 2025 10:27am Gastroparesis April 25, 2025 10:27 am Necrosis of surgical wound April 25 10:27am Open abdominal wall wound April 25, 2025 10:27am Chief Complaint Admit Date Renal Failure February 23, 2025 12:32a m Renal Failure February 23, 2025 10:52a m Renal Failure February 23, 2025 11:41a m Renal Failure February 24, 2025 1:48pm Renal Failure February 25, 2025 9:09am TROY February 27, 2025 9:11am Renal Failure February 28, 2025 2:09pm Renal Failure March 02, 2025 9:39am Renal Failure March 02, 2025 12:02p m Renal Failure March 09, 2025 10:49 am Renal Failure March 09, 2025 12:10 pm Abdominal Wound March 30, 2025 1:59p m Abdominal Wound April 04, 2025 10:0 5am Z01.818 N18.6 April 18, 2025 12:4 4pm Open Wound- post op April 25, 2025 10:[address] Martinez for port placement Apr 12:04pm Abnormal labs May 08, 2025 6:02 pm Reason for Visit Admit Date Anemia of renal disease February 23, 2025 12 :32am Calciphylaxis February 23, 2025 12:32a m Clostridioides difficile diarrhea February 12:32am Diabetes February 23, 2025 12:32a m ESRD (end stage renal disease) February 23, 2025 12:32am Gastroparesis February 23, 2025 12:32a m Hyperphosphatemia February 23, 2025 12:32a m Hypertension February 23, 2025 12:32a m Chronic constipation February 23, 2025 12:32 am Metabolic acidosis February 23, 2025 12:32a m Elevated serum creatinine February 23, 2025 12:32am Encounter for assessment of decision-jay ing capacity February 23, 2025 12:32am Intertriginous candidiasis February 23, 2025 12:32am Leukocytosis February 23, 2025 12:32a m Nausea and vomiting February 23, 2025 12:32a m Renal failure, acute February 23, 2025 12:32 am Skin necrosis February 23, 2025 12:32a m Calciphylaxis April 25, 2025 10:27 am Diabetes April 25, 2025 10:27 am End stage renal disease on dialysis April 25, 2025 10:27am ESRD (end stage renal disease) April 25, 2025 10:27am Gastroparesis April 25, 2025 10:27 am Necrosis of surgical wound April 25 10:27am Open abdominal wall wound April 25, 2025 10:27am End stage renal disease on dialysis April 25, 2025 12:04pm Anemia of renal disease May 08, 2025 6:02pm Cellulitis of abdominal wall May 08, 2025 6:02pm Diabetes May 08, 2025 6:02 pm End stage renal disease on dialysis May 08, 2025 6:02pm ESRD (end stage renal disease) April 6:02pm Gastritis May 08, 2025 6:02 pm Gastroparesis May 08, 2025 6:02 pm Hypertension May 08, 2025 6:02 pm Missed dialysis May 08, 2025 6:02 pm Necrosis of surgical wound May 08 6:02pm Open abdominal wall wound May 08 6:02pm NARDA (obstructive sleep apnea) May 08, 2025 6:02pm Chief Complaint Admit Date Renal Failure February 23, 2025 12:32a m Renal Failure February 23, 2025 10:52a m Renal Failure February 23, 2025 11:41a m Renal Failure February 24, 2025 1:48pm Renal Failure February 25, 2025 9:09am TROY February 27, 2025 9:11am Renal Failure February 28, 2025 2:09pm Renal Failure March 02, 2025 9:39am Renal Failure March 02, 2025 12:02p m Renal Failure March 09, 2025 10:49 am Renal Failure March 09, 2025 12:10 pm Abdominal Wound March 30, 2025 1:59p m Abdominal Wound April 04, 2025 10:0 5am Z01.818 N18.6 April 18, 2025 12:4 4pm Open Wound- post op April 25, 2025 10:[address] Martinez for port placement Apr 12:04pm Abnormal labs May 08, 2025 6:02 pm Abnormal labs May 15, 2025 12:0 0am Reason for Visit Admit Date Anemia of renal disease February 23, 2025 12 :32am Calciphylaxis February 23, 2025 12:32a m Clostridioides difficile diarrhea February 12:32am Diabetes February 23, 2025 12:32a m Gastroparesis February 23, 2025 12:32a m Hyperphosphatemia February 23, 2025 12:32a m Hypertension February 23, 2025 12:32a m Chronic constipation February 23, 2025 12:32 am Metabolic acidosis February 23, 2025 12:32a m Elevated serum creatinine February 23, 2025 12:32am Encounter for assessment of decision-jay ing capacity February 23, 2025 12:32am ESRD (end stage renal disease) February 23, 2025 12:32am Intertriginous candidiasis February 23, 2025 12:32am Leukocytosis February 23, 2025 12:32a m Nausea and vomiting February 23, 2025 12:32a m Renal failure, acute February 23, 2025 12:32 am Skin necrosis February 23, 2025 12:32a m Calciphylaxis April 25, 2025 10:27 am Diabetes April 25, 2025 10:27 am End stage renal disease on dialysis April 25, 2025 10:27am Gastroparesis April 25, 2025 10:27 am Necrosis of surgical wound April 25 10:27am Open abdominal wall wound April 25, 2025 10:27am ESRD (end stage renal disease) April 25, 2025 10:27am End stage renal disease on dialysis April 25, 2025 12:04pm Anemia of renal disease May 08, 2025 6:02pm Benign hypertension with end-stage renal disease May 08, 2025 6:02pm Cellulitis of abdominal wall May 08, 2025 6:02pm Diabetes May 08, 2025 6:02 pm End stage renal disease on dialysis May 08, 2025 6:02pm Gastritis May 08, 2025 6:02 pm Gastroparesis May 08, 2025 6:02 pm Hypertension May 08, 2025 6:02 pm Missed dialysis May 08, 2025 6:02 pm Necrosis of surgical wound May 08 6:02pm Open abdominal wall wound May 08 6:02pm NARDA (obstructive sleep apnea) May 08, 2025 6:02pm Secondary hyperparathyroidism May 08, 2025 6:02pm Type 2 diabetes mellitus with diabetic c hronic kidney disease May 08, 2025 6:02pm ESRD (end stage renal disease) April 6:02pm Chief Complaint Admit Date Renal Failure February 23, 2025 12:32a m Renal Failure March 09, 2025 10:49 am Renal Failure March 09, 2025 12:10 pm Abdominal Wound March 30, 2025 1:59p m Abdominal Wound April 04, 2025 10:0 5am Z01.818 N18.6 April 18, 2025 12:[address] Martinez for port placement Apr 12:04pm Abnormal labs May 08, 2025 6:02 pm Abnormal labs May 15, 2025 12:0 0am Open Wound- post op May 30, 2025 9:1 7am Abdominal Wound June 06, 2025 9: 48am Reason for Visit Admit Date Anemia of renal disease February 23, 2025 12 :32am Calciphylaxis February 23, 2025 12:32a m Clostridioides difficile diarrhea February 12:32am Diabetes February 23, 2025 12:32a m Gastroparesis February 23, 2025 12:32a m Hyperphosphatemia February 23, 2025 12:32a m Hypertension February 23, 2025 12:32a m Chronic constipation February 23, 2025 12:32 am Metabolic acidosis February 23, 2025 12:32a m Elevated serum creatinine February 23, 2025 12:32am Encounter for assessment of decision-jay ing capacity February 23, 2025 12:32am ESRD (end stage renal disease) February 23, 2025 12:32am Intertriginous candidiasis February 23, 2025 12:32am Leukocytosis February 23, 2025 12:32a m Nausea and vomiting February 23, 2025 12:32a m Renal failure, acute February 23, 2025 12:32 am Skin necrosis February 23, 2025 12:32a m End stage renal disease on dialysis April 25, 2025 12:04pm Anemia of renal disease May 08, 2025 6:02pm Benign hypertension with end-stage renal disease May 08, 2025 6:02pm Cellulitis of abdominal wall May 08, 2025 6:02pm Diabetes May 08, 2025 6:02 pm End stage renal disease on dialysis May 08, 2025 6:02pm Gastritis May 08, 2025 6:02 pm Gastroparesis May 08, 2025 6:02 pm Hypertension May 08, 2025 6:02 pm Necrosis of surgical wound May 08 6:02pm Open abdominal wall wound May 08 6:02pm NARDA (obstructive sleep apnea) May 08, 2025 6:02pm Secondary hyperparathyroidism May 08, 2025 6:02pm Type 2 diabetes mellitus with diabetic c hronic kidney disease May 08, 2025 6:02pm Missed dialysis May 08, 2025 6:02 pm ESRD (end stage renal disease) April 6:02pm Calciphylaxis May 30, 2025 9:1 7am Diabetes May 30, 2025 9:1 7am End stage renal disease on dialysis Augu 2024 9:17am Gastroparesis May 30, 2025 9:1 7am Necrosis of surgical wound May 30, 2 025 9:17am Open abdominal wall wound May 30 9:17am ESRD (end stage renal disease) May 9:17am Chief Complaint Admit Date Abdominal Wound March 30, 2025 1:59p m Abdominal Wound April 04, 2025 10:0 5am Z01.818 N18.6 April 18, 2025 12:[address] Martinez for port placement Apr 12:04pm Abnormal labs May 08, 2025 6:02 pm Abnormal labs May 15, 2025 12:0 0am Open Wound- post op May 30, 2025 9:1 7am Abdominal Wound June 06, 2025 9: 48am esrd June 15, 2025 1: 04pm Reason for Visit Admit Date End stage renal disease on dialysis April 25, 2025 12:04pm Anemia of renal disease May 08, 2025 6:02pm Benign hypertension with end-stage renal disease May 08, 2025 6:02pm Cellulitis of abdominal wall May 08, 2025 6:02pm Diabetes May 08, 2025 6:02 pm End stage renal disease on dialysis May 08, 2025 6:02pm Gastritis May 08, 2025 6:02 pm Gastroparesis May 08, 2025 6:02 pm Hypertension May 08, 2025 6:02 pm Necrosis of surgical wound May 08 6:02pm Open abdominal wall wound May 08 6:02pm NARDA (obstructive sleep apnea) May 08, 2025 6:02pm Secondary hyperparathyroidism May 08, 2025 6:02pm Type 2 diabetes mellitus wit h diabetic chronic kidney disease May 08, 2025 6:02pm Missed dialysis May 08, 2025 6:02 pm ESRD (end stage renal disease) April 6:02pm Calciphylaxis May 30, 2025 9:1 7am Diabetes May 30, 2025 9:1 7am End stage renal disease on dialysis 2024 9:17am Gastroparesis May 30, 2025 9:1 7am Necrosis of surgical wound May 30, 2 025 9:17am Open abdominal wall wound May 30 9:17am ESRD (end stage renal disease) May 9:17am Anemia of renal disease June 15 1:04pm Benign hypertension with end-stage renal disease June 15, 2025 1:04pm Cellulitis of abdominal wall May 1:04pm ESRD (end stage renal disease) June 152024 1:04pm Hyperkalemia June 15, 2025 1: 04pm Hypertension June 15, 2025 1: 04pm Necrosis of surgical wound June 15, 2025 1:04pm Open abdominal wall wound June 15, 2 025 1:04pm Secondary hyperparathyroidism May 1:04pm Type 2 diabetes mellitus wit h diabetic chronic kidney disease June 15, 2025 1:04pm Chief Complaint Admit Date Z01.818 N18.6 April 18, 2025 12:[address] Martinez for port placement Apr 12:04pm Abnormal labs May 08, 2025 6:02 pm Abnormal labs May 15, 2025 12:0 0am Abdominal Wound June 06, 2025 9: 48am esrd June 15, 2025 1: 04pm Open Wound- post op June 27, 2025 9:54am 3 WK SURG F/U; LEFT ARM AVF 06/16/25 Sept ember 2024 12:52pm Reason for Visit Admit Date End stage renal disease on dialysis April 25, 2025 12:04pm Anemia of renal disease May 08, 2025 6:02pm Benign hypertension with end-stage renal disease May 08, 2025 6:02pm Cellulitis of abdominal wall May 08, 2025 6:02pm Diabetes May 08, 2025 6:02 pm End stage renal disease on dialysis May 08, 2025 6:02pm Gastritis May 08, 2025 6:02 pm Gastroparesis May 08, 2025 6:02 pm Hypertension May 08, 2025 6:02 pm Necrosis of surgical wound May 08 6:02pm Open abdominal wall wound May 08 6:02pm NARDA (obstructive sleep apnea) May 08, 2025 6:02pm Secondary hyperparathyroidism May 08, 2025 6:02pm Type 2 diabetes mellitus wit h diabetic chronic kidney disease May 08, 2025 6:02pm Missed dialysis May 08, 2025 6:02 pm ESRD (end stage renal disease) April 6:02pm Anemia of renal disease June 15 1:04pm Benign hypertension with end-stage renal disease June 15, 2025 1:04pm Cellulitis of abdominal wall May 1:04pm ESRD (end stage renal disease) June 152024 1:04pm Hyperkalemia June 15, 2025 1: 04pm Hypertension June 15, 2025 1: 04pm Necrosis of surgical wound June 15, 2025 1:04pm Open abdominal wall wound June 15, 2 025 1:04pm Secondary hyperparathyroidism May 1:04pm Type 2 diabetes mellitus wit h diabetic chronic kidney disease June 15, 2025 1:04pm Calciphylaxis June 27, 2025 9:54am Diabetes June 27, 2025 9:54am End stage renal disease on dialysis Sept emb2024 9:54am Gastroparesis June 27, 2025 9:54am Necrosis of surgical wound June 9:54am Open abdominal wall wound June 27, 2025 9:54am ESRD (end stage renal disease) June 27, 2025 9:54am Additional Source Comments INFORMATION SOURCE (unrecogn ized section and content) DATE CREATED AUTHOR 07/29/[address] [facility] DATE CREATED AUTHOR AUTHOR'S ORGANIZ ATION 03/11/2023 [facility] DATE CREATED AUTHOR AUTHOR'S ORGANIZ ATION 12/10/2023 [facility] DATE CREATED AUTHOR AUTHOR'S ORGANIZ ATION 06/17/2025 [facility] DATE CREATED AUTHOR AUTHOR'S ORGANIZ ATION 07/14/2025 [facility] EPIC DATE CREATED AUTHOR AUTHOR'S ORGANIZ ATION 07/20/2025 [facility] REASON FOR VISIT (unrecogniz ed section and content) Reason Onset Date Comments Appointment Request 12/21/2024 Reason Comments Med Refill Oxycodone Reason Comments Diabetes Reason Comments Diabetes Med Refill Amlodipine, lantus, pantoprazole, lasix,losartan--DM chato Care Teams (unrecognized sec tion and content) Team Status: Active Member Role Status Dates Ayaan Deras II MD Primary Care Provider Active Team Status: Active Member Role Status Dates Ayaan Deras II MD Primary Care Provider Active Start: March 22, 2025 Rodo Martinez MD Attending Provider Active Star t: March 22, 2025 Team Status: Inactive Member Role Status Dates Ayaan Deras II MD Primary Care Provider Active Start: March 30, 2025 End: March 30, 2025 Juan Carlos Chavez MD Attending Provider Active Sta rt: March 30, 2025 End: March 30, 2025 Team Status: Inactive Member Role Status Dates Ayaan Deras II MD Primary Care Provider Active Start: April 04, 2025 End: April 04, 2025 Juan Carlos Chavez MD Attending Provider Active Sta rt: April 04, 2025 End: April 04, 2025 Team Status: Active Member Role Status Dates Ayaan Deras II MD Primary Care Provider Active Start: April 18, 2025 Rodo Martinez MD Attending Provider Active Star t: April 18, 2025 Team Status: Inactive Member Role Status Dates Ayaan Deras II MD Primary Care Provider Active Start: April 18, 2025 End: April 18, 2025 Rodo Martinez MD Attending Provider Active Star t: April 18, 2025 End: April 18, 2025 Team Status: Inactive Member Role Status Dates Ayaan Deras II MD Primary Care Provider Active Start: April 25, 2025 End: April 25, 2025 Nestor Wright MD Attending Provider Active S tart: April 25, 2025 End: April 25, 2025 Team Status: Active Member Role Status Dates Ayaan Deras II MD Primary Care Provider Active Start: May 08, 2025 Oh Landa PA-C Emergency Provider Active Start: May 08, 2025 Xavier Mello MD Admit Provider Active Start: 2024 Xavier Mello MD Other Provider Active Start: 2024 Liliana Soliz MD Attending Provider Active Sta rt: May 08, 2025 Liliana Soliz MD Other Provider Active Start: May 08, 2025 Carmita Baker MD Other Provider Active Start: 2024 Juan Carlos Chavez MD Other Provider Active Start: May 08, 2025 Team Status: Active Member Role Status Dates Ayaan Deras II MD Primary Care Provider Active Start: May 15, 2025 Oh Landa PA-C Emergency Provider Active Start: May 15, 2025 Xavier Mello MD Admit Provider Active Start: 2024 Liliana Soliz MD Other Provider Active Start: May 15, 2025 Carmita Baker MD Other Provider Active Start: 2024 Juan Carlos Chavez MD Other Provider Active Start: May 15, 2025 Aris Patel MD Other Provider Active Start: May 15, 2025 Rodo Martinez MD Attending Provider Active Star t: May 15, 2025 Team Status: Active Member Role Status Dates Ayaan Deras II MD Primary Care Provider Active Start: May 30, 2025 Juan Carlos Chavez MD Attending Provider Active Sta rt: May 30, 2025 Team Status: Inactive Member Role Status Dates Ayaan Deras II MD Primary Care Provider Active Start: June 06, 2025 End: June 06, 2025 Juan Carlos Chavez MD Attending Provider Active Sta rt: June 06, 2025 End: June 06, 2025 Team Status: Active Member Role Status Dates Ayaan Deras II MD Primary Care Provider Active Start: June 15, 2025 Nestor Wright MD Admit Provider Active Start : June 15, 2025 Nestor Wright MD Other Provider Active Start : June 15, 2025 Lidia Crowley , SALTY Other Provider Active Star t: June 15, 2025 Florence Poon , SALTY Other Provider Active Start : June 15, 2025 Kristal Garcia , SALTY Other Provider Active Star t: June 15, 2025 Sima Guajardo , SALTY Other Provider Active Start: A ugust 2024 Catherine Garcia , SALTY Other Provider Active Start: Au andrei 2024 Sunshine Benson , SALTY Other Provider Active Start: A ugust 2024 Tyra Berg MD Other Provider Active Start: June 15, 2025 Gurwinder Balderas DO Other Provider Active Start : June 15, 2025 Jose Pate MD Other Provider Active Start : June 15, 2025 Kemal Yu DO Other Provider Active Start: June 15, 2025 Naresh Samaniego MD Other Provider Active Start: June 15, 2025 Kiley Wilson MD Other Provider Active Start : June 15, 2025 Liliana Ackerman DO Other Provider Active St art: June 15, 2025 Sebastián Eldridge MD Other Provider Active Start: A ugust 2024 Harleen Larson APRN Other Provider Active Start: June 15, 2025 Aris Patel MD Other Provider Active Start: June 15, 2025 Shrieen Chowdary MD Other Provider Active Start: June 15, 2025 Latasha Bowles MD Other Provider Active Start: June 15, 2025 Liliana Morrison DO Other Provider Active Start: June 15, 2025 Eliud Rojas MD Other Provider Active Start: 2024 Migue Mcgrath MD Other Provider Active Start: May us2024 Elsi Marcial NP-C Other Provider Active St art: June 15, 2025 Evelia Cortez APRN Other Provider Active Star t: June 15, 2025 Rosas Paez MD Other Provider Active Start: June 15, 2025 Porter Toth MD Other Provider Active Start: 2024 Tatianna Dumont MD Other Provider Active Star t: June 15, 2025 Koki Naranjo DO Other Provider Active Start: 2024 Abelardo Mccann DO Other Provider Active Start : June 15, 2025 Catina Stovall APRN Other Provider Active Start: June 15, 2025 Hari Powell DO Other Provider Active Start: June 15, 2025 Jameel Mayorga MD Other Provider Active Sta rt: June 15, 2025 Macarena Arias APRN Other Provider Active Start : June 15, 2025 Penny Reinoso APRN Other Provider Active St art: June 15, 2025 Jay Kurtz MD Other Provider Active Start: A ugust 2024 Ayaan Espinoza MD Other Provider Active S tart: June 15, 2025 Lorraine Garner DO Other Provider Active Start: June 15, 2025 Anshul Tomas MD Other Provider Active Start: June 15, 2025 Genia Calvin MD Other Provider Active Start: June 15, 2025 Rahel Johnston APRN Other Provider Active Star t: June 15, 2025 Becky Nash MD Other Provider Active Start: A ugust 2024 Dylan Gooden MD Other Provider Active Start: June 15, 2025 Sebastián Naidu MD Other Provider Active Start : June 15, 2025 Jhony Ward MD Other Provider Active Start: A ugust 2024 Soraya Perez APRN Other Provider Active Sta rt: June 15, 2025 Rigo Javier APRN Other Provider Active Start: June 15, 2025 Kayy Richardson RN Other Provider Active Start: A ugust 2024 Jessica Christian MD Other Provider Active Start: A ugust 2024 Liliana Soliz MD Attending Provider Active Sta rt: June 15, 2025 Liliana Soliz MD Other Provider Active Start: June 15, 2025 Team Status: Inactive Member Role Status Dates Hari Powell DO Admit Provider Active Start: February 23, 2025 End: March 09, 2025 Ayaan Deras II MD Primary Care Provider Active Start: February 23, 2025 End: March 09, 2025 Liliana Soliz MD Other Provider Active Start: February 23, 2025 End: March 09, 2025 Rodo Martinez MD Other Provider Active Start: M ay 2024 End: March 09, 2025 Germain Cueva MD Other Provider Active Start: February 23, 2025 End: March 09, 2025 Nestor Wright MD Other Provider Active Start : February 23, 2025 End: March 09, 2025 Steph Parr DO Other Provider Active Start: February 23, 2025 End: March 09, 2025 Kemal Yu DO Attending Provider Active Start: February 23, 2025 End: March 09, 2025 Team Status: Active Member Role Status Dates Hari Powell DO Admit Provider Active Start: February 23, 2025 Ayaan Deras II MD Primary Care Provider Active Start: February 23, 2025 Becky Nash MD Other Provider Active Start: M ay 2024 Rodo Martinez MD Other Provider Active Start: M ay 2024 Isai Rodrigues DO Other Provider Active Start: Ma y 2024 Liliana Soliz MD Attending Provider, Other Provider Active Start: February 23, 2025 Team Status: Active Member Role Status Dates Hari Powell DO Admit Provider Active Start: February 23, 2025 Ayaan Deras II MD Primary Care Provider Active Start: February 23, 2025 Becky Nash MD Other Provider Active Start: M ay 2024 Rodo Martinez MD Attending Provider, Other Provider A ctive Start: February 23, 2025 Isai Rodrigues DO Other Provider Active Start: Ma y 2024 Liliana Soliz MD Other Provider Active Start: February 23, 2025 Nestor Wright MD Other Provider Active Start : February 23, 2025 Team Status: Active Member Role Status Dates Hari Powell DO Admit Provider Active Start: February 24, 2025 Ayaan Deras II MD Primary Care Provider Active Start: February 24, 2025 Rodo Martinez MD Other Provider Active Start: M ay 2024 Isai Rodrigues DO Other Provider Active Start: Ma y 2024 Liliana Soliz MD Other Provider Active Start: February 24, 2025 Nestor Wright MD Attending Provider, Other Provide r Active Start: February 24, 2025 Becky Nash MD Other Provider Active Start: M ay 2024 Germain Cueva MD Other Provider Active Start: February 24, 2025 Team Status: Active Member Role Status Dates Hari Powell DO Admit Provider Active Start: February 25, 2025 Ayaan Deras II MD Primary Care Provider Active Start: February 25, 2025 Becky Nash MD Other Provider Active Start: M ay 2024 Isai Rodrigues DO Other Provider Active Start: Ma y 2024 Liliana Soliz MD Other Provider Active Start: February 25, 2025 Rodo Martinez MD Other Provider Active Start: M ay 2024 Germain Cueva MD Attending Provider, Other Provider Active Start: February 25, 2025 Nestor Wright MD Other Provider Active Start : February 25, 2025 Team Status: Inactive Member Role Status Dates Ayaan Deras II MD Primary Care Provider Active Start: February 27, 2025 End: February 27, 2025 Jessica Christian MD Attending Provider Active Star t: February 27, 2025 End: February 27, 2025 Team Status: Active Member Role Status Dates Hari Powell DO Admit Provider Active Start: February 28, 2025 Ayaan Deras II MD Primary Care Provider Active Start: February 28, 2025 Becky Nash MD Other Provider Active Start: M ay 2024 Isai Rodrigues DO Other Provider Active Start: Ma y 2024 Liliana Soliz MD Other Provider Active Start: February 28, 2025 Rodo Martinez MD Other Provider Active Start: M ay 2024 Germain Cueva MD Other Provider Active Start: February 28, 2025 Nestor Wright MD Other Provider Active Start : February 28, 2025 Steph L Ly , DO Attending Provider, Other Provider Active Start: February 28, 2025 Team Status: Active Member Role Status Dates Hari Powell , Admit Provider Active Start: March 02, 2025 Ayaan Deras II MD Primary Care Provider Active Start: March 02, 2025 Becky Nash MD Other Provider Active Start: M ay 2024 Liliana Soliz MD Attending Provider, Other Provider Active Start: March 02, 2025 Rodo Martinez MD Other Provider Active Start: M ay 2024 Germain Cueva MD Other Provider Active Start: March 02, 2025 Nestor Wright MD Other Provider Active Start : March 02, 2025 Steph L Ly , DO Other Provider Active Start: March 02, 2025 Team Status: Active Member Role Status Dates Hari Powell , Admit Provider Active Start: March 02, 2025 Ayaan Deras II MD Primary Care Provider Active Start: March 02, 2025 Becky Nash MD Other Provider Active Start: M ay 2024 Liliana Soliz MD Other Provider Active Start: March 02, 2025 Rodo Martinez MD Other Provider Active Start: M ay 2024 Germain Cueva MD Other Provider Active Start: March 02, 2025 Nestor Wright MD Other Provider Active Start : March 02, 2025 Steph L Ly , DO Other Provider Active Start: March 02, 2025 Jessica Christian MD Attending Provider Active Star t: March 02, 2025 Team Status: Active Member Role Status Dates Hari Powell DO Admit Provider Active Start: March 09, 2025 Ayaan Deras II MD Primary Care Provider Active Start: March 09, 2025 Liliana Soliz MD Attending Provider, Other Provider Active Start: March 09, 2025 Rodo Martinez MD Other Provider Active Start: M ay 2024 Germain Cueva MD Other Provider Active Start: March 09, 2025 Nestor Wright MD Other Provider Active Start : March 09, 2025 Steph L Ly , DO Other Provider Active Start: March 09, 2025 Kemal Yu DO Other Provider Active Start: March 09, 2025 Team Status: Active Member Role Status Dates Hari Powell DO Admit Provider Active Start: March 09, 2025 Ayaan Deras II MD Primary Care Provider Active Start: March 09, 2025 Liliana Soliz MD Other Provider Active Start: March 09, 2025 Rodo Martinez MD Other Provider Active Start: M ay 2024 Germain Cueva MD Other Provider Active Start: March 09, 2025 Nestor Wright MD Other Provider Active Start : March 09, 2025 Steph Parr DO Other Provider Active Start: March 09, 2025 Kemal Yu , Other Provider Active Start: March 09, 2025 Carmita Baker MD Attending Provider Active Start : March 09, 2025 Team Status: Active Member Role Status Dates Ayaan Deras II MD Primary Care Provider Active Start: March 28, 2025 Juan Carlos Chavez MD Attending Provider Active Sta rt: March 28, 2025 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 Relationship Specialty Start Date End Date Ayaan Deras MD [address] [facility] [address] [place] [address] PCP - General Internal Medicine 03/09/23 Team Status: Active Member Role Status Dates Hari Powell DO Admit Provider Active Start: February 23, 2025 Ayaan Deras II MD Primary Care Provider Active Start: February 23, 2025 Becky Nash MD Attending Provider Active Star t: February 23, 2025 Isai Rodrigues DO Other Provider Active Start: Ma y 2024 Liliana Soliz MD Other Provider Active Start: February 23, 2025 Rodo Martinez MD Other Provider Active Start: M ay 2024 Germain Cueva MD Other Provider Active Start: February 23, 2025 Nestor Wright MD Other Provider Active Start : February 23, 2025 Team Status: Inactive Member Role Status Dates Hari Powell DO Admit Provider Active Start: February 23, 2025 End: March 10, 2025 Ayaan Deras II MD Primary Care Provider Active Start: February 23, 2025 End: March 10, 2025 Liliana Soliz MD Other Provider Active Start: February 23, 2025 End: March 10, 2025 Rodo Martinez MD Other Provider Active Start: M ay 2024 End: March 10, 2025 Germain Cueva MD Other Provider Active Start: February 23, 2025 End: March 10, 2025 Nestor Wright MD Other Provider Active Start : February 23, 2025 End: March 10, 2025 Steph Parr , Other Provider Active Start: February 23, 2025 End: March 10, 2025 Kemal Yu DO Attending Provider Active Start: February 23, 2025 End: March 10, 2025 Team Status: Active Member Role Status Dates Hari Powell DO Admit Provider Active Start: February 23, 2025 Ayaan Deras II MD Primary Care Provider Active Start: February 23, 2025 Becky Nash MD Other Provider Active Start: M ay 2024 Rodo Martinez MD Other Provider Active Start: M ay 2024 Isai Rodrigues DO Other Provider Active Start: Ma y 2024 Liliana Soliz MD Attending Provider Active Sta rt: February 23, 2025 Liliana Soliz MD Other Provider Active Start: February 23, 2025 Team Status: Active Member Role Status Dates Hari Powell DO Admit Provider Active Start: February 23, 2025 Ayaan Deras II MD Primary Care Provider Active Start: February 23, 2025 Becky Nash MD Other Provider Active Start: M ay 2024 Rodo Martinez MD Attending Provider Active Star t: February 23, 2025 Rodo Martinez MD Other Provider Active Start: M ay 2024 Isai Rodrigues DO Other Provider Active Start: Ma y 2024 Liliana Soliz MD Other Provider Active Start: February 23, 2025 Nestor Wright MD Other Provider Active Start : February 23, 2025 Team Status: Active Member Role Status Dates Hari Powell DO Admit Provider Active Start: February 24, 2025 Ayaan Deras II MD Primary Care Provider Active Start: February 24, 2025 Rodo Martinez MD Other Provider Active Start: M ay 2024 Isai Rodrigues DO Other Provider Active Start: Ma y 2024 Liliana Soliz MD Other Provider Active Start: February 24, 2025 Nestor Wright MD Attending Provider Active S tart: February 24, 2025 Nestor Wright MD Other Provider Active Start : February 24, 2025 Becky Nash MD Other Provider Active Start: M ay 2024 Germain Cueva MD Other Provider Active Start: February 24, 2025 Team Status: Active Member Role Status Dates Hari Powell DO Admit Provider Active Start: February 25, 2025 Ayaan Deras II MD Primary Care Provider Active Start: February 25, 2025 Becky Nash MD Other Provider Active Start: M ay 2024 Isai Rodrigues DO Other Provider Active Start: Ma y 2024 Liliana Solzi MD Other Provider Active Start: February 25, 2025 Rodo Martinez MD Other Provider Active Start: M ay 2024 Germain Cueva MD Attending Provider Active St art: February 25, 2025 Germain Cueva MD Other Provider Active Start: February 25, 2025 Nestor Wright MD Other Provider Active Start : February 25, 2025 Team Status: Active Member Role Status Dates Hari Powell DO Admit Provider Active Start: February 28, 2025 Ayaan Deras II MD Primary Care Provider Active Start: February 28, 2025 Becky Nash MD Other Provider Active Start: M ay 2024 Isai Rodrigues DO Other Provider Active Start: Ma y 2024 Liliana Soliz MD Other Provider Active Start: February 28, 2025 Rodo Martinez MD Other Provider Active Start: M ay 2024 Germain Cueva MD Other Provider Active Start: February 28, 2025 Nestor Wright MD Other Provider Active Start : February 28, 2025 Steph L Ly , DO Attending Provider Active St art: February 28, 2025 Steph L Ly , DO Other Provider Active Start: February 28, 2025 Team Status: Active Member Role Status Dates Hari Powell DO Admit Provider Active Start: March 02, 2025 Ayaan Deras II MD Primary Care Provider Active Start: March 02, 2025 Becky Nash MD Other Provider Active Start: M ay 2024 Liliana Soliz MD Attending Provider Active Sta rt: March 02, 2025 Liliana Soliz MD Other Provider Active Start: March 02, 2025 Rodo Martinez MD Other Provider Active Start: M ay 2024 Germain Cueva MD Other Provider Active Start: March 02, 2025 Nestor Wright MD Other Provider Active Start : March 02, 2025 Steph Parr , DO Other Provider Active Start: March 02, 2025 Team Status: Active Member Role Status Dates Hari Powell , Admit Provider Active Start: March 09, 2025 Ayaan Deras II MD Primary Care Provider Active Start: March 09, 2025 Liliana Soliz MD Attending Provider Active Sta rt: March 09, 2025 Liliana Soliz MD Other Provider Active Start: March 09, 2025 Rodo Martinez MD Other Provider Active Start: M ay 2024 Germain Cueva MD Other Provider Active Start: March 09, 2025 Nestor Wright MD Other Provider Active Start : March 09, 2025 Steph Parr , DO Other Provider Active Start: March 09, 2025 Kemal Yu DO Other Provider Active Start: March 09, 2025 Team Status: Active Member Role Status Dates Ayaan Deras II MD Primary Care Provider Active Start: April 25, 2025 Juan Carlos Chavez MD Attending Provider Active Sta rt: April 25, 2025 Team Status: Active Member Role Status Dates Ayaan Deras II MD Primary Care Provider Active Start: May 08, 2025 Oh Landa PA-C Emergency Provider Active Start: May 08, 2025 Xavier Mello MD Admit Provider Active Start: jamar 2024 Xavier Mello MD Attending Provider Active Start : May 08, 2025 Team Status: Active Member Role Status Dates Ayaan Deras II MD Primary Care Provider Active Start: May 19, 2025 Jessica Christian MD Attending Provider Active Star t: May 19, 2025 Team Status: Active Member Role Status Dates Ayaan Deras II MD Primary Care Provider Active Start: June 27, 2025 Juan Carlos Chavez MD Attending Provider Active Sta rt: June 27, 2025 Team Status: Inactive Member Role Status Dates Ayaan Deras II MD Primary Care Provider Active Start: July 11, 2025 End: July 11, 2025 Geneva Bell NP-C Attending Provider Active Start: July 11, 2025 End: July 11, 2025 FOR RECORDS PERTAINING TO PATIENTS WHO ARE [...] BE BASED ON THE PRIMARY CLINICAL RECORDS. [facility] [employer] [facility]. provides no warranty or guarantee of the accuracy or completeness of information in this document.
--- OUTSIDE RECORDS SUMMARY | 2025-08-11 13:15 | XMS_ITS | Encounter Summary ---
Author Organization [facility] Address [address] [facility] [place] [address] Care Team Providers Care Puppy Walker Name Role Phone Unavailable Primary Care Provider Unavailabl e Encounter Details Date Type Department Care Team (Late st Contact Info) Description 02/27/2025 Abstract [facility] [address] [facility] [address] [place] [phone] Unallocated, Noms MD Rosanna [address] [place] [address] Social History Tobacco Use Types Packs/Day Years [...] Visit [facility] [address] [facility] [address] [place] [id number] Ayaan Deras MD [address] [facility] [address] [place], [place] [id number] documented as of this encounter Visit Diagnoses Not on filedocumented in this encounter
--- OUTSIDE RECORDS SUMMARY | 2025-08-11 13:15 | XMS_ITS | Encounter Summary ---
Author Organization [facility] Address [address] [facility] [place] [address] Care Team Providers Care Sheet Cutting Operator Name Role Phone Unavailable Primary Care Provider Unavailabl e Encounter Details Date Type Department Care Team (Late Contact Info) Description 03/01/2025 Abstract [facility] [address] [facility] [address] [place] [phone] Ayaan Deras MD [address] [facility] [address] [place] [address] Social History Tobacco Use Types Packs/Day Years [...] AM EST Office Visit [facility] [address] [facility] [address] [place] [address] Ayaan Deras MD 112 [facility] [address] [place], [place] [id number] documented as of this encounter Visit Diagnoses Not on filedocumented in this encounter
--- OUTSIDE RECORDS SUMMARY | 2025-08-11 13:15 | XMS_ITS | Encounter Summary ---
Author Organization [facility] Address [address] [facility] [place] [address] Care Team Providers Care Talent Development Analyst Name Role Phone Unavailable Primary Care Provider Unavailabl e Encounter Details Date Type Department Care Team (Late st Contact Info) Description 02/23/2025 Abstract [facility] [address] [facility] [address] [place] [phone] Unallocated, Noms MD Rosanna [address] [place] [address] Social History Tobacco Use Types Packs/Day Years [...] [facility] [address] [facility] [address] [place] [phone] Ayaan Deras MD [address] [facility] [address] [place], [place] [phone] documented as of this encounter Visit Diagnoses Not on filedocumented in this encounter
--- OUTSIDE RECORDS SUMMARY | 2025-08-11 13:15 | XMS_ITS | Clinical Summary ---
Author Organization [facility] Healthcare Address [address] [place] [address] Care Team Providers Care Grain Grader Name Role Phone Unavailable Primary Care Provider Unavailabl e Allergies Active Allergy Reactions Criticality Noted Date Comments Latex Rash Low 02/23/2025 Penicillin V 05/30/2025 Medications sevelamer carbonate (Renvela) 800 MG tablet Take 800 mg by mouth in the morning and 800 mg at noon and 800 mg in the evening. Take with meals. 025 Active Blood Pressure Monitoring ([place] Choice BP Monitor Cuff) miscIndication s:Hypertension secondary to other renal disorders 1 Device Daily 1 each 025 Active metoclopramide (Reglan) 5 MG tablet Take 0.5 tablets by mouth in the morning and 0.5 tablets in the evening and 0.5 tablets before bedtime. 025 Active oxyCODONE-acet aminophen (Percocet) 5-325 MG tablet Take 1 tablet by mouth every 6 (six) hours if needed 025 Active sertraline (Zoloft) 50 MG tablet Take 50 mg by mouth Daily 025 Active amLODIPine (Norvasc) 10 MG tabletIndicati ons:Chronic diastolic heart failure (HCC) Take 1 tablet (10 mg) by mouth Daily 100 tablet 3 025 2025 Active pantoprazole (ProtoNix) 40 MG EC tabletIndicati ons:GERD without esophagitis Take 1 tablet (40 mg) by mouth Daily 100 tablet 3 025 Active furosemide (Lasix) 40 MG tabletIndicati ons:Chronic diastolic heart failure (HCC) Take 1 tablet (40 mg) by mouth Daily 100 tablet 3 025 2025 Active losartan (Cozaar) 100 MG tabletIndicati ons:Chronic diastolic heart failure (HCC) Take 1 tablet (100 mg) by mouth Daily 100 tablet 3 025 2025 Active Lantus SoloStar 100 UNIT/ML penIndications :Type 2 diabetes 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, with long-term current use of insulin ([facility]) INJECT TEN UNITS SUBCUTANEOUSLY (UNDER THE SKIN) AT BEDTIME 15 mL 3 Active Adhesive Tape (Elastic Foam Tape 1 x5yd) tapeIndication s:Skin necrosis (HCC) 1 Application every other day 5 each 5 Active Continuous Glucose Sensor (FreeStyle Maria Esther 3 Plus Sensor) miscIndication s:Type 2 diabetes 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, with long-term current use of insulin ([facility]) 1 each Every 15 Days 6 each 3 Active insulin glargine (Lantus SoloStar) 100 UNIT/ML penIndications :Type 2 diabetes 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, with long-term current use of insulin ([facility]) Inject 10 Units under the skin at bedtime 9 mL 3 2024 Discontinued(R eorder) Adhesive Tape (Elastic Foam Tape 1 x5yd) tapeIndication s:Skin necrosis (HCC) 1 Application every other day 5 each 5 2024 Discontinued(R eorder) losartan (Cozaar) 100 MG tabletIndicati ons:Chronic diastolic heart failure (HCC) Take 1 tablet (100 mg) by mouth Daily 100 tablet 2024 Discontinued(R eorder) pantoprazole (ProtoNix) 40 MG EC tabletIndicati ons:GERD without esophagitis Take 1 tablet (40 mg) by mouth Daily 100 tablet 2024 Discontinued(R eorder) furosemide (Lasix) 40 MG tabletIndicati ons:Chronic diastolic heart failure (HCC) Take 1 tablet (40 mg) by mouth Daily 100 tablet 3 025 2024 Discontinued(R eorder) amLODIPine (Norvasc) 10 MG tabletIndicati ons:Chronic diastolic heart failure (HCC) Take 1 tablet (10 mg) by mouth Daily 100 tablet 3 025 2024 Discontinued(R eorder) ondansetron (Zofran) 4 MG tablet Take 4 mg by mouth every 8 (eight) hours if needed 025 2024 Discontinued Continuous Glucose Sensor (FreeStyle Maria Esther 3 Plus Sensor) miscIndication s:Type 2 diabetes 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, with long-term current use of insulin ([facility]) 1 each Every 15 Days 2 each 025 2024 Discontinued(R eorder) insulin glargine (Lantus SoloStar) 100 UNIT/ML penIndications :Type 2 diabetes 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, with long-term current use of insulin ([facility]) Inject 10 Units under the skin at bedtime 9 mL 3 025 2024 Discontinued Active Problems Problem Noted Date Diagnosed Date Hemodialysis status 04/17/2025 Open abdominal wall wound 04/17/2025 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 2 diabetes mellitus 03/14/2025 ESRD (end stage renal disease) 03/14/2025 History of gastritis 03/14/2025 Anemia of chronic renal failure, stage 5 025 Hypertension secondary to other renal disorders 03/14/2025 Bilateral leg edema 11/10/2023 Radiculopathy, lumbar region 11/10/2023 Anemia 11/10/2023 Diastolic heart failure 03/05/2023 Combined hyperlipidemia 03/05/2023 Diabetic peripheral neuropathy 03/05/2023 Diverticulitis 03/05/2023 DUB (dysfunctional uterine bleeding) 03/05/2023 Excessive bleeding in premenopausal period 03/05 GERD without esophagitis 03/05/2023 History of hysterectomy 03/05/2023 Insomnia due to medical condition 03/05/2023 Other dysphagia 03/05/2023 Tobacco dependence 03/05/2023 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 2 diabetes 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 05/14/2020 Resolved Problems Problem Noted Date Diagnosed Date Resolved Date Diabetic mononeuropathy 03/05/202310/26 Dysphagia 10/05/2017 11/10/2023 Encounters Date Type Department Care Team Description 08/01/2025 Abstract [facility] [address] [place] [address], [place] [address] Unallocated, Noms ProviderMD 08/01/2025 Abstract [facility] [address] [place] [phone] Unallocated, Noms ProviderMD 07/27/2025 Abstract [facility] [address] [place] [address], [place] [address] Unallocated, Noms ProviderMD 07/26/2025 Abstract [facility] [address] [place] [address], [place] [address] Unallocated, Noms Provider, 07/24/2025 Abstract [facility] [address] [place] [address], [place] [address] Unallocated, Noms ProviderMD 07/20/2025 Abstract [facility] [address] [place] [address], [place] [address] Unallocated, Noms ProviderMD 07/19/2025 Telephone [facility] [address] [place] [phone] Ayaan Deras MD 07/18/2025 Abstract [facility] [address] [place] [address], [place] [address] Unallocated, Noms MD Rosanna 07/18/2025 Abstract [facility] [address] [place] [phone] Unallocated, Noms MD Rosanna 07/18/2025 Abstract [facility] [address] [place] [address], [place] [address] Unallocated, Noms ProviderMD 07/17/2025 Refill [facility] [address] [place] [phone] Ayaan Deras MD Type 2 diabetes 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, with long-term current use of insulin (HCC) 07/17/2025 Telephone [facility] [address] [place] [phone] Ayse Jon LPN Lab Orders 07/14/2025 Refill [facility] [place] [address] [place] [phone] Ernestina Winchester PA Skin necrosis (HCC) 07/13/2025 11:30 AM EDT Office Visit [facility] [address] [place] [phone] Ayaan Deras MD Type 2 diabetes mellitus with diabetic neuropathy, with long-term current use of insulin ([facility]) (Primary Dx); Radiculopathy, lumbar region; Chronic diastolic heart failure ([facility]); Type 2 diabetes 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, with long-term current use of insulin ([facility]); GERD without esophagitis; ESRD (end stage renal disease) ([facility]); Open wound of abdominal wall, subsequent encounter 07/13/2025 Refill [facility] [address] [place] [phone] Ayaan Deras MD Type 2 diabetes 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, with long-term current use of insulin ([facility]) 07/13/2025 Travel 07/13/2025 Abstract [facility] [address] [place] [phone] Unallocated, Nupur Marte MD 07/12/2025 Abstract [facility] [address] [place] [phone] Unallocated, Nupur Marte MD 07/03/2025 Abstract [facility] [address] [place] [phone] Unallocated, Nupur Marte MD 06/30/2025 Abstract [facility] [address] [place] [phone] UnallocatedNupur MD 06/29/2025 Abstract [facility] [address] [place] [phone] Unallocated, Noms ProviderMD 06/28/2025 Abstract [facility] [address] [place] [address] Unallocated, Noms Provider, 06/27/2025 Abstract [facility] [address] [place] [address] Unallocated, Noms ProviderMD 06/27/2025 Abstract [facility] [address] [place] [address], [place] [phone] Unallocated, Noms ProviderMD 06/21/2025 Abstract [facility] [address] [place] [address] Ayaan Deras MD 06/21/2025 Telephone [facility] [address] [place] [address] Ayse Jon LPN pa freestyle maria esther 06/20/2025 Abstract [facility] [address] [place] [address] Unallocated, Noms MD Rosanna 06/20/2025 Refill [facility] [address] [place] [address] Asye Jon LPN Type 2 diabetes 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, with long-term current use of insulin ([facility]) 06/19/2025 Abstract [facility] [address] [place] [address] Unallocated, Noms MD Rosanna 06/19/2025 Abstract [facility] [address] [place] [address] Unallocated, Noms ProviderMD 06/16/2025 Abstract [facility] [address] [place] [address] Unallocated, Noms MD Rosanna 06/15/2025 Abstract [facility] [address] [place] [address], [place] [address] Unallocated, Noms MD Rosanna 06/15/2025 Abstract [facility] [address] [facility] [address] [place] [address] Unallocated, Noms MD Rosanna 06/12/2025 Abstract [facility] [address] [facility] [address] [place] [address] Unallocated, Noms MD Rosanna 06/09/2025 Orders Only [facility] [address] [place] [address], [place] [address] Juan Carlos Chavez MD 06/07/2025 Abstract [facility] [address] [place] [address] Unallocated, Nupur Marte MD 06/06/2025 External Result Encounter [facility] External Department Unsolicited Juan Carlos Chavez MD 06/06/2025 External Result Encounter [facility] External Department Unsolicited Juan Carlos Chavez MD 06/06/2025 External Result Encounter [facility] External Department Unsolicited Juan Carlos Chavez MD 05/30/2025 Abstract [facility] [address] [facility] [address] [place] [address] Ayaan Deras MD 05/30/2025 Abstract [facility] [place] [facility] [address] [facility] [address] [place] [address] Ayaan Deras MD 05/18/2025 Abstract [facility] [address] [facility] [address] [place] [address] Ayaan Deras MD 05/15/2025 Orders Only [facility] [address] [place] [address] [address] [place] [address] Juan Carlos Chavez MD 05/11/2025 Abstract [facility] [address] [facility] [address] [place] [address] UnalloNupur meier MD from Last 3 Months Immunizations Immunization Administration Dates Next Due DTP 07/26/2021 Influenza, injectable, MDCK, quadrivalent 2018 Influenza, injectable, quadrivalent 09/04/2021 Influenza, injectable, quadr ivalent, preservative free 09/29/2022,08/28/2020,10/12/2017 PPD Test 05/18/2025 Family History Relation Name Status Comments Father Mother Alive Social History Tobacco Use Types Packs/Day Years Used Date Smoking Tobacco: Former Cigarettes Smokeless Tobacco: Current Tobacco Cessation:Ready to [...] Sign Reading Time Taken Comments Blood Pressure 126/70 07/13/2025 11:30 AM EDT Pulse 78 07/13/2025 11:30 AM EDT Temperature 36.2 C (97.1 F) 11/10/2023 3:59 PM EST Respiratory Rate 16 03/14/2025 2:01 PM EDT Oxygen Saturation 95% 07/13/2025 11:30 AM EDT Inhaled Oxygen Concentration - - Weight 79.8 kg (176 lb) 07/13/2025 11:30 AM EDT Height 147.3 cm (4' 10 ) 07/13/2025 11:30 AM EDT Body Mass Index 36.78 07/13/2025 11:30 AM EDT Plan of Treatment Upcoming Encounters Date Type Department Care Team (Late st Contact Info) Description 10/12/2025 11:30 AM EST Office Visit [facility] [address] [facility] [address] [place] [address] Ayaan Deras MD 112 [facility] [address] [place] [address] Procedures Procedure Name Priority Date/Time Associated Diagnosis Comments CBC Routine 07/17/2025 8:41 AM EDT Combined hyperlipidemia Type 2 diabetes 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, with long-term current use of insulin (HCC) Anemia of chronic renal failure, stage 5 (HCC) Hypertension secondary to other renal disorders COMPREHENSIVE METABOLIC PANEL Routine 07/17/2025 8:41 AM EDT Combined hyperlipidemia Type 2 diabetes 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, with long-term current use of insulin (HCC) Anemia of chronic renal failure, stage 5 (HCC) Hypertension secondary to other renal disorders LIPID PANEL Routine 07/17/2025 8:41 AM EDT Combined hyperlipidemia Type 2 diabetes 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, with long-term current use of insulin (HCC) Anemia of chronic renal failure, stage 5 (HCC) Hypertension secondary to other renal disorders MICROALBUMIN / CREATININE URINE RATIO Routine 07/17/2025 8:41 AM EDT Type 2 diabetes 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, with long-term current use of insulin (HCC) Anemia of chronic renal failure, stage 5 (HCC) POCT GLYCATED HEMOGLOBIN, TOTAL Routine 07/13/2025 12:13 PM EDT Type 2 diabetes mellitus with diabetic neuropathy, with long-term current use of insulin (HCC) GLUCOSE POCT GLUCOMETERS Routine 06/06/2025 1:18 PM EDT GLUCOSE POCT GLUCOMETERS Routine 06/06/2025 10:48 AM EDT BASIC METABOLIC PANEL STAT 06/06/2025 10:46 AM EDT GENERAL PATHOLOGY Routine 06/06/2025 10: 36 AM EDT GENERAL PATHOLOGY Routine 05/12/2025 10: 04 AM EDT from Last 3 Months Results * (ABNORMAL) Microalbumin / creatinine, urine ratio (07/17/2025 8:41 AM EDT) Pathologist [facility] CREATININE, RANDOM URINE 38 20 - 275 mg/dL [facility] ALBUMIN, URINE 93.4 See Note: mg/dL [facility] Comment: Reference Range: Reference Range Not established Results verified by repeat analysis on dilution. ALBUMIN/CREATININ E RATIO, RANDOM URINE 2,458(H) <30 mg/g creat [facility] Comment: The ADA defines abnormalities in albumin excretion as follows: Albuminuria Category Result (mg/g creatinine) Normal to Mildly increased <30 Moderately increased 30-299 Severely increased > OR = 300 The ADA recommends that at least two of three specimens collected within a 3-6 month period be abnormal before considering a patient to be within a diagnostic category. Urine Urine specimen obtained by clean catch procedure / Unknown 07/17/2025 8:41 AM EDT 07/17/2025 4:07 PM EDT Narrative [facility] - 07/18/2025 1:55 PM EDT FASTING:YES FASTING: YES Resulting Agency Comment Performing Organization Information Site ID: QPT Name: [facility] Address: [address] [place] [address], [address] [place] [phone] Director: Kody Manriquez MD us Ayaan Deras MD LAB URINE ORDERABLES Final Res ult [facility] * (ABNORMAL) CBC (07/17/2025 8:41 AM EDT) WHITE BLOOD CELL COUNT 10.1 3.8 - 10.8 Thousand/u L [facility] Comment: Review of peripheral smear confirms automated results. RED BLOOD CELL COUNT 4.45 3.80 - 5.10 Million/uL [facility] HEMOGLOBIN 12.0 11.7 - 15.5 g/dL [facility] HEMATOCRIT 39.2 35.0 - 45.0 % [facility] MCV 88.1 80.0 - 100.0 fL [facility] MCH 27.0 27.0 - 33.0 pg [facility] MCHC 30.6(L) 32.0 - 36.0 g/dL [facility] Comment: For adults, a slight decrease in the calculated MCHC value (in the range of 30 to 32 g/dL) is most likely not clinically significant; however, it should be interpreted with caution in correlation with other red cell parameters and the patient's clinical condition. RDW 21.3(H) 11.0 - 15.0 % [facility] PLATELET COUNT 230 140 - 400 Thousand/u L [facility] MPV 9.6 7.5 - 12.5 fL [facility] Blood Venous blood specimen / Unknown 07/17/2025 8:41 AM EDT 07/17/2025 4:07 PM EDT Narrative [facility] - 07/18/2025 1:55 PM EDT FASTING:YES FASTING: YES Resulting Agency Comment Performing Organization Information Site ID: QTW Name: [facility] Address: [facility] [place] [address] Director: Valencia Palmer Ayaan Deras MD LAB BLOOD ORDERABLES Final Res ult [facility] * (ABNORMAL) Lipid panel (07/17/2025 8:41 AM EDT) CHOLESTEROL, TOTAL 204(H) <200 mg/dL [facility] HDL CHOLESTEROL 45(L) > OR = 50 mg/dL [facility] TRIGLYCERIDES 170(H) <150 mg/dL [facility] LDL CHOLESTEROL 130(H) mg/dL (calc) [facility] Comment: Reference range: <100 Desirable range <100 mg/dL for primary prevention; <70 mg/dL for patients with CHD or diabetic patients with > or = 2 CHD risk factors. LDL-C is now calculated using the Silvio-Archuleta calculation, which is a validated novel method providing better accuracy than the Friedewald equation in the estimation of LDL-C. Silvio SS et al. LILIA. 2013;310(19): 2548-0006 (http://education.Nistica.BiteHunter/faq/ZAA248) CHOL/HDLC RATIO 4.5 <5.0 (calc) [facility] NON HDL CHOLESTEROL 159(H) <130 mg/dL (calc) [facility] Comment: For patients with diabetes plus 1 major ASCVD risk factor, treating to a non-HDL-C goal of <100 mg/dL (LDL-C of <70 mg/dL) is considered a therapeutic option. Blood Venous blood specimen / Unknown 07/17/2025 8:41 AM EDT 07/17/2025 4:07 PM EDT Narrative [facility] - 07/18/2025 1:55 PM EDT FASTING:YES FASTING: YES Resulting Agency Comment Performing Organization Information Site ID: QPT Name: [facility] Address: [address] [facility], [address] [place] [address] Director: Kody Manriquez MD Ayaan Deras MD LAB BLOOD ORDERABLES Final Res ult [facility] * (ABNORMAL) Comprehensive metabolic panel (07/17/2025 8:41 AM EDT) Glucose 119(H) 65 - 99 mg/dL [facility] Comment: Fasting reference interval For someone without known diabetes, a glucose value between 100 and 125 mg/dL is consistent with prediabetes and should be confirmed with a follow-up test. BUN 68(H) 7 - 25 mg/dL [facility] Creatinine 7.02(H) 0.50 - 1.03 mg/dL [facility] EGFR 6(L) > OR = 60 mL/min/1.7 3m2 [facility] BUN/CREATININE RATIO 10 6 - 22 (calc) [facility] Sodium 138 135 - 146 mmol/L [facility] Potassium, Bld 5.4(H) 3.5 - 5.3 mmol/L [facility] Chloride 103 98 - 110 mmol/L [facility] Carbon Dioxide 16(L) 20 - 32 mmol/L [facility] Calcium 9.3 8.6 - 10.4 mg/dL [facility] PROTEIN, TOTAL 7.0 6.1 - 8.1 g/dL [facility] ALBUMIN 3.8 3.6 - 5.1 g/dL [facility] GLOBULIN 3.2 1.9 - 3.7 g/dL (calc) [facility] ALBUMIN/GLOBULIN RATIO 1.2 1.0 - 2.5 (calc) [facility] BILIRUBIN, TOTAL 0.3 0.2 - 1.2 mg/dL [facility] ALKALINE PHOSPHATASE 68 37 - 153 U/L [facility] AST 15 10 - 35 U/L [facility] ALT 11 6 - 29 U/L [facility] Blood Venous blood specimen / Unknown 07/17/2025 8:41 AM EDT 07/17/2025 4:07 PM EDT Narrative [facility] - 07/18/2025 1:55 PM EDT FASTING:YES FASTING: YES Resulting Agency Comment Performing Organization Information Site ID: QTW Name: [facility] Address: [address] [place] [phone] Director: Valencia Palmer Ayaan Deras MD LAB BLOOD ORDERABLES Final Res ult [facility] * POCT Glycated hemoglobin, total (07/13/2025 12:13 PM EDT) Hemoglobin A1C 4.9 Blood 07/13/2025 12:1 3 PM EDT Ayaan Deras MD POINT OF CARE TEST ENTER/EDIT ORDERABLES Final Result * GLUCOSE POCT GLUCOMETERS (06/06/2025 1:18 PM EDT) Only the most recent of2 resultswithin the time period is included. GLUCOSE POC GLUCOMETERS 99 mg/dL 06/06/2025 1:25 PM EDT [facility] Comment: Random Glucose Reference Range is dependent on time and content of last meal. Glucose of more than 200 mg/dL in a nonstressed, ambulatory subject supports the diagnosis of Diabetes Mellitus. COMMEMT1 Glu2: Cleaned Meter 06/06/2025 1:25 PM EDT [facility] Blood (Blood) 06/06/2025 1:1 8 PM EDT 06/06/2025 1:25 PM EDT Juan Carlos Schmitt MD LAB BLOOD ORDERABLES Final R esult Performing Organization Address [facility]/ZIP Co de Phone Number [facility] [address] [place] [address], [place] * (ABNORMAL) Basic metabolic panel (06/06/2025 10:46 AM EDT) Glucose 111(H) 70 - 100 mg/dL 06/06/2025 11:32 AM EDT [facility] Comment: Random Glucose Reference Range is dependent on time and content of last meal. Glucose of more than 200 mg/dL in a nonstressed, ambulatory subject supports the diagnosis of Diabetes Mellitus. ADA recommended reference range BUN 45(H) 7 - 25 mg/dL 06/06/2025 11:32 AM EDT [facility] CREATININE 3.21(H) 0.60 - 1.20 mg/dL 06/06/2025 11:32 AM EDT [facility] ESTIMATED GFR 16.517 06/06/2025 11:32 AM EDT [facility] Sodium 135(L) 136 - 145 mmol/L 06/06/2025 11:32 AM EDT [facility] Potassium, Bld 4.5 3.5 - 5.1 mmol/L 06/06/2025 11:32 AM EDT [facility] Chloride 98 98 - 107 mmol/L 06/06/2025 11:32 AM EDT [facility] Carbon Dioxide 28.4 21.0 - 31.0 mmol/L 06/06/2025 11:32 AM EDT [facility] Anion Gap 13.1 6.0 - 15.0 06/06/2025 11:32 AM EDT [facility] Calcium 8.8 8.6 - 10.3 mg/dL 06/06/2025 11:32 AM EDT [facility] CREATININE CLR CALC PHARMACY 18.45 06/06/2025 11:32 AM EDT [facility] Other Topography unknown / Unknown 06/06/2025 10:46 AM EDT 06/06/2025 11:00 AM EDT Juan Carlos Schmitt MD LAB BLOOD ORDERABLES Final R esult Performing Organization Address [facility]/State/[facility] Co de Phone Number [facility] [address] [place] [address], [facility] [address] [place] [address] * GENERAL PATHOLOGY (06/06/2025 10:36 AM EDT) Only the most recent of2 resultswithin the time period is included. Juan Carlos Schmitt MD [facility] Final Result from Last 3 Months Insurance MEDICAID [place] MEDICARE
--- OUTSIDE RECORDS SUMMARY | 2025-08-11 13:15 | XMS_ITS | Encounter Summary ---
Author Organization [facility] Address [address] [facility] [place] [address] Care Team Providers Care Pharmacovigilance Safety Expert Name Role Phone Unavailable Primary Care Provider Unavailabl e Encounter Details Date Type Department Care Team (Late st Contact Info) Description 02/23/2025 Abstract [facility] 112 [facility] [address] [place] [phone] Unallocated, Noms MD Rosanna [address] [place] [address] Social History Tobacco Use Types Packs/Day Years [...] [address] [facility] [address] [place] [phone] Ayaan Deras MD [address] [facility] 110 [place], [place] [phone] documented as of this encounter Visit Diagnoses Not on filedocumented in this encounter
--- OUTSIDE RECORDS SUMMARY | 2025-08-11 13:16 | XMS_ITS | Encounter Summary ---
Author Organization [facility] Address [address] [facility] [place] [address] Care Team Providers Care Hook Up Name Role Phone Unavailable Primary Care Provider Unavailabl e Encounter Details Date Type Department Care Team (Late Contact Info) Description 03/13/2025 Abstract [facility] [address] [place] [address] Unallocated, Noms Provider, [address] [place] [address] Social History Tobacco Use Types Packs/Day Years [...] Office Visit [facility] Barraza [address] [facility] [address] [place] [phone] Ayaan Deras MD 112 [facility] 110 [place] [address] documented as of this encounter Visit Diagnoses Not on filedocumented in this encounter
--- OUTSIDE RECORDS SUMMARY | 2025-08-11 13:16 | XMS_ITS | Encounter Summary ---
Author Organization [facility] Address [address] [facility] [place] [address] Care Team Providers Care Cytotechnologist Supervisor Name Role Phone Unavailable Primary Care Provider Unavailabl e Encounter Details Date Type Department Care Team (Late Contact Info) Description 03/28/2025 Abstract [facility] [place] Saucedo Gold [address] [facility] 110 [place] [phone] Unallocated, Noms MD Rosanna [address] [place], [place] [phone] Social History Tobacco Use Types Packs/Day Years [...] 11:30 AM EST Office Visit [facility] [place] Sacuedo Guillence [address] [place] 110 [place] [address] Ayaan Deras MD [address] [place] 110 [place], [place] [id number] documented as of this encounter Visit Diagnoses Not on filedocumented in this encounter
--- OUTSIDE RECORDS SUMMARY | 2025-08-11 13:16 | XMS_ITS | Encounter Summary ---
Author Organization [facility] Address [address] [place] [address] Care Team Providers Care Talent Agent Name Role Phone Unavailable Primary Care Provider Unavailabl e Encounter Details Date Type Department Care Team (Late st Contact Info) Description 03/14/2025 Abstract [facility] [address] [place] 110 [place] [address] Unallocated, Noms Provider, [address] [place] [address] Social History Tobacco Use Types Packs/Day Years [...] Office Visit [facility] Matt Barraza [address] [facility] 110 [place] [phone] Ayaan Deras MD [address] [facility] 110 [place] [address] documented as of this encounter Visit Diagnoses Not on filedocumented in this encounter
--- OUTSIDE RECORDS SUMMARY | 2025-08-11 13:16 | XMS_ITS | Encounter Summary ---
Author Organization [facility] Address [address] [place] [address] Care Team Providers Care Cotton Stomper Name Role Phone Unavailable Primary Care Provider Unavailabl e Encounter Details Date Type Department Care Team (Late Contact Info) Description 04/10/2025 Orders Only [facility] [address] [phone] Juan Carlos Chavez MD [address] [address] Social History Tobacco Use Types Packs/Day Years [...] Office Visit [facility] [place] Saucedo Medince [address] [facility] 110 [place] [address] Ayaan Deras MD 112 [facility] 110 [place] [address] documented as of this encounter Procedures Procedure Name Priority Date/Time Associated Diagnosis Comments GENERAL PATHOLOGY Routine 04/10/2025 9:31 AM EDT documented in this encounter Results * GENERAL PATHOLOGY (04/10/2025 9:31 AM EDT) us Juan Carlos Schmitt MD [facility] Final Result documented in this encounter Visit Diagnoses Not on filedocumented in this encounter
--- OUTSIDE RECORDS SUMMARY | 2025-08-11 13:16 | XMS_ITS | Encounter Summary ---
Author Organization [facility] Address [address] [facility] [address] Care Team Providers Care Dimethylaniline Sulfator Operator Name Role Phone Unavailable Primary Care Provider Unavailabl e Encounter Details Date Type Department Care Team (Late Contact Info) Description 04/11/2025 Abstract [facility] [place] Saucedo Gold [address] [facility] 110 [place] [phone] Unallocated, Noms MD Rosanna [address] [place], [place] [phone] Social History Tobacco Use Types Packs/Day Years [...] AM EST Office Visit [facility] [place] Saucedo Guillence [address] [place] [address] [place] [address] Ayaan Deras MD [address] [place] [address] [place], [place] [id number] documented as of this encounter Visit Diagnoses Not on filedocumented in this encounter
--- OUTSIDE RECORDS SUMMARY | 2025-08-11 13:16 | XMS_ITS | Encounter Summary ---
Author Organization [facility] Address [address] [facility] [place] [address] Care Team Providers Care Ict Sales Assistant Name Role Phone Unavailable Primary Care Provider Unavailabl e Encounter Details Date Type Department Care Team (Late Contact Info) Description 04/11/2025 Abstract [facility] [place] Saucedo Gold [address] [facility] 110 [place] [phone] Unallocated, Noms MD Rosanna [address] [place], [place] [phone] Social History Tobacco Use Types Packs/Day Years [...] Saucedo Guillence [address] [place] 110 [place] [address] Ayaan Deras MD [address] [place] 110 [place], [place] [id number] documented as of this encounter Visit Diagnoses Not on filedocumented in this encounter
--- OUTSIDE RECORDS SUMMARY | 2025-08-11 13:16 | XMS_ITS | Encounter Summary ---
Author Organization [facility] Address [address] [facility] [place] [address] Care Team Providers Care Call Center Receptionist Name Role Phone Unavailable Primary Care Provider Unavailabl e Encounter Details Date Type Department Care Team (Late Contact Info) Description 04/04/2025 Abstract [facility] [place] Saucedo Gold [address] [facility] 110 [place] [phone] Unallocated, Noms MD Rosanna [address] [place], [place] [phone] Social History Tobacco Use Types Packs/Day Years [...] Saucedo Guillence [address] [place] [address] [place] [address] Ayaan Deras MD [address] [place] 110 [place], [place] [id number] documented as of this encounter Visit Diagnoses Not on filedocumented in this encounter
--- OUTSIDE RECORDS SUMMARY | 2025-08-11 13:17 | XMS_ITS | Encounter Summary ---
Author Organization [facility] Address [address] [facility] [place] [address] Care Team Providers Care Christian Science Nurse Name Role Phone Unavailable Primary Care Provider Unavailabl e Encounter Details Date Type Department Care Team (Late Contact Info) Description 05/10/2025 Abstract [facility] [place] Hannce [address] [place] [address] [place] [phone] Unallocated, Noms MD Rosanna [address] [place] [address] Social History Tobacco Use Types Packs/Day Years [...] Saucedo Medince [address] [place] [address] [place] [phone] Ayaan Deras MD [address] [place] 110 [place], [place] [phone] documented as of this encounter Visit Diagnoses Not on filedocumented in this encounter Additional Health Concerns Assessment Noted Time PHQ-9 Depression Total Score: 8 04/17/20 25 10:29 AM EDT documented as of this encounter
--- OUTSIDE RECORDS SUMMARY | 2025-08-11 13:17 | XMS_ITS | Encounter Summary ---
Author Organization [facility] Address [address] [place] [address] Care Team Providers Care Education Liaison Name Role Phone Unavailable Primary Care Provider Unavailabl e Encounter Details Date Type Department Care Team (Late Contact Info) Description 05/15/2025 Orders Only [facility] [address] [phone] Juan Carlos Chavez MD [address] [address] Social History Tobacco Use Types Packs/Day Years [...] Visit [facility] [place] Saucedo Medince [address] [facility] 110 [place] [address] Ayaan Deras MD [address] [facility] 110 [place] [address] documented as of this encounter Procedures Procedure Name Priority Date/Time Associated Diagnosis Comments GENERAL PATHOLOGY Routine 05/12/2025 10:04 AM EDT documented in this encounter Results * GENERAL PATHOLOGY (05/12/2025 10:04 AM EDT) us Juan Carlos Schmitt MD [facility] Final Result documented in this encounter Visit Diagnoses Not on filedocumented in this encounter Additional Health Concerns Assessment Noted Time PHQ-9 Depression Total Score: 8 04/17/20 25 10:29 AM EDT documented as of this encounter
--- OUTSIDE RECORDS SUMMARY | 2025-08-11 13:17 | XMS_ITS | Encounter Summary ---
Author Organization [facility] Address [address] [facility] [place] [address] Care Team Providers Care Laboratory Chief Name Role Phone Unavailable Primary Care Provider Unavailabl e Encounter Details Date Type Department Care Team (Late Contact Info) Description 05/11/2025 Abstract [facility] [place] Hannce [address] [place] [address] [place] [phone] Unallocated, Noms MD Rosanna [address] [place] [address] Social History Tobacco Use Types Packs/Day Years [...] Saucedo Medince [address] [place] 110 [place] [address] Ayaan Deras MD [address] [place] 110 [place], [place] [address] documented as of this encounter Visit Diagnoses Not on filedocumented in this encounter Additional Health Concerns Assessment Noted Time PHQ-9 Depression Total Score: 8 04/17/20 25 10:29 AM EDT documented as of this encounter
--- OUTSIDE RECORDS SUMMARY | 2025-08-11 13:17 | XMS_ITS | Encounter Summary ---
Author Organization [facility] Address [address] [facility] [place] [address] Care Team Providers Care Hide Inspector And Sorter Name Role Phone Unavailable Primary Care Provider Unavailabl e Encounter Details Date Type Department Care Team (Late st Contact Info) Description 05/09/2025 Abstract [facility] [place] Hannce [address] [facility] 110 [place] [phone] Ayaan Deras MD [address] [facility] 110 [place] [address] Social History Tobacco Use Types Packs/Day Years [...] Visit [facility] [place] Hannce [address] [facility] 110 [place] [phone] Ayaan Deras MD [address] [facility] 110 [place] [address] documented as of this encounter Visit Diagnoses Not on filedocumented in this encounter Additional Health Concerns Assessment Noted Time PHQ-9 Depression Total Score: 8 04/17/20 25 10:29 AM EDT documented as of this encounter
--- OUTSIDE RECORDS SUMMARY | 2025-08-11 13:17 | XMS_ITS | Encounter Summary ---
Author Organization [facility] Address [address] [facility] [place] [address] Care Team Providers Care Compliance Officer Name Role Phone Unavailable Primary Care Provider Unavailabl e Encounter Details Date Type Department Care Team (Late Contact Info) Description 04/25/2025 Abstract [facility] [place] Hannce [address] [place] [address] [place] [phone] Unallocated, Noms MD Rosanna [address] [place] [address] Social History Tobacco Use Types Packs/Day Years [...] Saucedo Medince [address] [place] 110 [place] [address] Ayaan Deras MD [address] [place] 110 [place], [place] [address] documented as of this encounter Visit Diagnoses Not on filedocumented in this encounter Additional Health Concerns Assessment Noted Time PHQ-9 Depression Total Score: 8 04/17/20 25 10:29 AM EDT documented as of this encounter
--- OUTSIDE RECORDS SUMMARY | 2025-08-11 13:17 | XMS_ITS | Encounter Summary ---
Author Organization [facility] Address [address] [facility] [place] [address] Care Team Providers Care Color Worker Name Role Phone Unavailable Primary Care Provider Unavailabl e Encounter Details Date Type Department Care Team (Late Contact Info) Description 04/26/2025 Abstract [facility] [place] Hannce [address] [place] [address] [place] [phone] Unallocated, Noms MD Rosanna [address] [place] [address] Social History Tobacco Use Types Packs/Day Years [...] Saucedo Medince [address] [place] [address] [place] [address] Ayaan Deras MD [address] [place] 110 [place], [place] [address] documented as of this encounter Visit Diagnoses Not on filedocumented in this encounter Additional Health Concerns Assessment Noted Time PHQ-9 Depression Total Score: 8 04/17/20 25 10:29 AM EDT documented as of this encounter
--- OUTSIDE RECORDS SUMMARY | 2025-08-11 13:17 | XMS_ITS | Encounter Summary ---
Author Organization [facility] Address [address] [facility] [place] [address] Care Team Providers Care Cloth Worker Name Role Phone Unavailable Primary Care Provider Unavailabl e Encounter Details Date Type Department Care Team (Late st Contact Info) Description 05/09/2025 Abstract [facility] [place] Hannce [address] [facility] 110 [place] [phone] Ayaan Deras MD [address] [facility] 110 [place] [address] Social History Tobacco Use Types Packs/Day Years [...] Visit [facility] [place] Hannce [address] [facility] 110 [place] [phone] Ayaan Deras MD [address] [facility] 110 [place] [address] documented as of this encounter Visit Diagnoses Not on filedocumented in this encounter Additional Health Concerns Assessment Noted Time PHQ-9 Depression Total Score: 8 04/17/20 25 10:29 AM EDT documented as of this encounter
--- OUTSIDE RECORDS SUMMARY | 2025-08-11 13:17 | XMS_ITS | Encounter Summary ---
Author Organization [facility] Address [address] [facility] [place] [address] Care Team Providers Care Application Services Manager Name Role Phone Unavailable Primary Care Provider Unavailabl e Encounter Details Date Type Department Care Team (Late Contact Info) Description 04/25/2025 Abstract [facility] [place] Hannce [address] [place] [address] [place] [phone] Unallocated, Noms MD Rosanna [address] [place] [address] Social History Tobacco Use Types Packs/Day Years [...] Saucedo Medince [address] [place] 110 [place] [address] Ayaan Deras MD [address] [place] 110 [place], [place] [address] documented as of this encounter Visit Diagnoses Not on filedocumented in this encounter Additional Health Concerns Assessment Noted Time PHQ-9 Depression Total Score: 8 04/17/20 25 10:29 AM EDT documented as of this encounter
--- OUTSIDE RECORDS SUMMARY | 2025-08-11 13:17 | XMS_ITS | Encounter Summary ---
Author Organization [facility] Address [address] [facility] [place] [address] Care Team Providers Care Ld Teacher Name Role Phone Unavailable Primary Care Provider Unavailabl e Encounter Details Date Type Department Care Team (Late st Contact Info) Description 05/09/2025 Abstract [facility] [place] Hannce [address] [facility] 110 [place] [phone] Ayaan Deras MD [address] [facility] 110 [place] [address] Social History Tobacco Use Types Packs/Day Years [...] Visit [facility] [place] Hannce [address] [facility] 110 [place] [phone] Ayaan Deras MD [address] [facility] 110 [place] [address] documented as of this encounter Visit Diagnoses Not on filedocumented in this encounter Additional Health Concerns Assessment Noted Time PHQ-9 Depression Total Score: 8 04/17/20 25 10:29 AM EDT documented as of this encounter
--- OUTSIDE RECORDS SUMMARY | 2025-08-11 13:17 | XMS_ITS | Encounter Summary ---
Author Organization [facility] Address [address] [facility] [place] [address] Care Team Providers Care Waiter/Waitress Name Role Phone Unavailable Primary Care Provider Unavailabl e Encounter Details Date Type Department Care Team (Late st Contact Info) Description 05/09/2025 Abstract [facility] [place] Hannce [address] [place] [address] [place] [phone] Ayaan Deras MD [address] [facility] 110 [place] [address] Social History Tobacco Use Types Packs/Day Years [...] Visit [facility] [place] Hannce [address] [place] [address] [place] [phone] Ayaan Deras MD [address] [facility] 110 [place] [address] documented as of this encounter Visit Diagnoses Not on filedocumented in this encounter Additional Health Concerns Assessment Noted Time PHQ-9 Depression Total Score: 8 04/17/20 25 10:29 AM EDT documented as of this encounter
--- OUTSIDE RECORDS SUMMARY | 2025-08-11 13:18 | XMS_ITS | Encounter Summary ---
Author Organization [facility] Address [address] [facility] [place] [place] [address] Care Team Providers Care Gate Keeper Name Role Phone Unavailable Primary Care Provider Unavailabl e Encounter Details Date Type Department Care Team (Late st Contact Info) Description 05/30/2025 Abstract [facility] [place] Hannce [address] [facility] 110 [place] [phone] Ayaan Deras MD [address] [facility] 110 [place] [address] Social History Tobacco Use Types Packs/Day Years [...] Visit [facility]S [place] Hannce [address] [facility] 110 [place] [phone] Ayaan Deras MD [address] [facility] 110 [place] [address] documented as of this encounter Visit Diagnoses Not on filedocumented in this encounter Additional Health Concerns Assessment Noted Time PHQ-9 Depression Total Score: 8 04/17/20 25 10:29 AM EDT documented as of this encounter
--- OUTSIDE RECORDS SUMMARY | 2025-08-11 13:18 | XMS_ITS | Encounter Summary ---
Author Organization [facility] Address [address] [facility] [place] [address] Care Team Providers Care Sorter Laundry Articles Name Role Phone Unavailable Primary Care Provider Unavailabl e Encounter Details Date Type Department Care Team (Late st Contact Info) Description 05/18/2025 Abstract [facility] [place] Hannce [address] [facility] [address] [place] [phone] Ayaan Deras MD [address] [facility] 110 [place] [address] Social History Tobacco Use Types Packs/Day Years [...] Visit [facility]S [place] Hannce [address] [facility] [address] [place] [phone] Ayaan Deras MD [address] [facility] 110 [place] [address] documented as of this encounter Visit Diagnoses Not on filedocumented in this encounter Additional Health Concerns Assessment Noted Time PHQ-9 Depression Total Score: 8 04/17/20 25 10:29 AM EDT documented as of this encounter
--- OUTSIDE RECORDS SUMMARY | 2025-08-11 13:18 | XMS_ITS | Encounter Summary ---
Author Organization [facility] Address [address] [facility] [place] [address] Care Team Providers Care Comptroller Name Role Phone Unavailable Primary Care Provider Unavailabl e Encounter Details Date Type Department Care Team (Late Contact Info) Description 06/07/2025 Abstract [facility] [address] [place] [phone] Unallocated, Noms MD Rosanna [address] [place] [address] Social History Tobacco Use Types Packs/Day Years [...] Family Medince [address] [place] 110 [place] [phone] Ayaan Deras MD [address] [place] 110 [place] [address] documented as of this encounter Visit Diagnoses Not on filedocumented in this encounter Additional Health Concerns Assessment Noted Time PHQ-9 Depression Total Score: 8 04/17/20 25 10:29 AM EDT documented as of this encounter
--- OUTSIDE RECORDS SUMMARY | 2025-08-11 13:18 | XMS_ITS | Encounter Summary ---
Author Organization [facility] Address [address] [facility] [place] [address] Care Team Providers Care Circuit Manager Name Role Phone Unavailable Primary Care Provider Unavailabl e Encounter Details Date Type Department Care Team (Late st Contact Info) Description 05/30/2025 Abstract [facility] [place] Hannce [address] [facility] 110 [place] [phone] Ayaan Deras MD [address] [facility] 110 [place] [address] Social History Tobacco Use Types Packs/Day Years [...] Visit [facility]S [place] Hannce [address] [facility] [address] [place] [phone] Ayaan Deras MD [address] [facility] 110 [place] [address] documented as of this encounter Visit Diagnoses Not on filedocumented in this encounter Additional Health Concerns Assessment Noted Time PHQ-9 Depression Total Score: 8 04/17/20 25 10:29 AM EDT documented as of this encounter
[2025-08-11 13:34] LABS: Potassium 5.3 mmol/L (3.5-5.1)
== END 2025-08-11 13:09 | disposition home or self-care (01) ==
LOC: LAB 13:08
PROVIDERS: PCP Nurse Practitioner Family; Visit Provider Internal Medicine Nephrology
DX: E87.5 Hyperkalemia (principal)
CPT/HCPCS: 36415; 84132

== ENCOUNTER 2025-09-12 09:13 | Outpatient (OUT) | payer MEDICARE, MEDICAID, SELFPAY ==
--- OUTSIDE RECORDS SUMMARY | 2025-09-12 09:33 | XMS_ITS | CCD ---
Author Organization [facility] CliniSymn Care Team Providers Care Real Estate Loan Processor Name Role Phone TAMLYN ., HIEU Attending [...] Unavailable HAY ., DR SOUTH Attending Unavailable BRAEDEN, DR BARBOZA Primary Care Unavailable HOY ., DR ARMENDARIZ Attending Unavailable HOY ., DR ARMENDARIZ Admitting Unavailable SAMSA ., DORA Procedure Practitioner Unavailab saba Matthews, DR ARMENDARIZ Consulting Unavailable VINNY JACKSON V Consulting Unavailable BETHANY, DR KATALINA Mcdaniels Consulting Unavailable NADERER, DR OPAL Bonilla Consulting Unavailable GRECHCÉSAR ., DONAVAN SCHWAB Consulting Unavailabl e SAMSA ., DORA Consulting Unavailable HAILEY GALLOWAY Consulting Unavailable DIXIE KHAN Consulting Unavailable LILIANA DICKENS Consulting Unavailable BRAEDEN, DR BARBOZA Consulting Unavailable BRAEDEN, DR BARBOZA Attending Unavailable BRAEDEN, DR BARBOZA Admitting Unavailable BRAEDEN, DR BARBOZA Primary Care Unavailable TAMLYN ., HIEU Procedure Practitioner Unavailab saba DERAS, DR BARBOZA Primary Care Unavailable SHAIKH Jennifer WONG Attending Unavailable SHAIKH Jennifer WONG Admitting Unavailable GRILLIS ., DR LILIANA Vaughn Consulting Unavaildede WU ., DR ARMENDARIZ Consulting Unavailable FAWJANE, BEAVERS H Procedure Practitioner UnavailVINNY Earl V Consulting Unavailable BETHANY, DR KATALINA Mcdaniels Consulting Unavailable PAY ., DR ODEN Consulting Unavailable GRECHNY ., DONAVAN SCHWAB Consulting Unavailnato e MARVIN, H Consulting Unavailable GRUBER, SATURNINO Consulting Unavailable NAMITA II, RAIZA Consulting Unavailable TAMLYN ., HIEU Consulting Unavailable FILIMMANUELEKVE Consulting Unavailable TAMLYN ., HIEU Admitting Unavailable [...] Unavailable Ayaan Deras MD Primary Care Provider [phone] Unavailable Primary Care Provider UnavailHari Ac DO Admit Provider [phone] Ayaan Deras II Primary Care Provider Becky Nash MD Attending Provider Isai Rodrigues DO Other Provider Liliana Soliz MD Other Provider Rodo Hopkins MD Other Provider Germain Cueva MD Other Provider [phone] Nestor Wright MD Other Provider Jessica Christian MD Attending Provider Steph Parr DO Other Provider [phone] Kemal Yu DO Attending Provider Juan Carlos Chavez MD Attending Provider [phone] Becky Nash MD Other Provider Isai Rodrigues DO Other Provider Liliana Soliz MD Attending Provider Rodo Hopkins MD Attending Provider Nestor Wright MD Attending Provider Germain Cueva MD Attending Provider Steph Parr DO Attending Provider Aimee JuventinoKemal Other Provider [phone] Samuel DOE, Carmita Attending Provider Juan Carlos Chavez MD Attending Provider Syeda VELAZQUEZ, Oh Preston Emergency Provider Riaz DOE, Xavier Admit Provider Riaz DOE, Xavier Attending Provider [phone] Riaz DOE, Xavier Other Provider Carmita Baker MD Other Provider Juan Carlos Chavez MD Other Provider Aris Patel MD Other Provider Liliana Soliz MD Attending Provider Rodo Hopkins MD Attending Provider Nestor Wright MD Attending Provider Riaz DOE, Xavier Admit Provider Unavailable Riaz DOE, Xavier Other Provider Unavailable Ayaan Deras II Primary Care Provider Liliana Soliz MD Attending Provider Liliana Soliz MD Other Provider Nestor Wright MD Admit Provider [phone] Nestor Wright MD Other Provider Carline RN, Lidia Other Provider Unavailable Ayah RN, Florence Other Provider Unavailable Radha RNKristal Other Provider Unavailable Casandra RN, Sima Other Provider Unavailable Jose RNCatherine Other Provider Unavailable Marcelino RN, Sunshine Other Provider Unavailable Tyra Berg MD Other Provider Gurwinder Balderas DO Other Provider [phone] Herlinda DOE Jose Other Provider Kemal Yu DO Other Provider Aden DOE, Naresh Other Provider [phone] Kiley Wilson MD Other Provider Meka PALACIOS, Liliana Other Provider [phone] Chente DOE, Sebastián Other Provider Unavailable Harleen Larson APRN Other Provider Shireen Chowdary MD Other Provider Unavailable Wilbur DOE, Latasha Other Provider Liliana Morrison DO Other Provider Eliud Rojas MD Other Provider Migue Mcgrath MD Other Provider Aniket QUALITY CONTROL REPRESENTATIVE-C, Elsi Preston Other Provider Diego DO, Evelia Daniels Other Provider Unavailable Rosas Paez MD Other Provider Navneet DOE, Porter Other Provider Tim DOE, Tatianna Other Provider Unavailable Koki Naranjo DO Other Provider Abelardo Mccann DO Other Provider [phone] Catina Stovall APRN Other Provider Hari Powell DO Other Provider Mukesh DOE, Jameel Daniels Other Provider Macarena Arias APRN Other Provider Penny Reinoso APRN Other Provider Tessie DOE, Jay Other Provider Unavailable Ayaan Espinoza MD Other Provider Pascualmeghana PALACIOS Yaben Other Provider Thmo DOE, Anshul Aldrich Other Provider Genia Calvin MD Other Provider [phone] Vickie DO, Rahel Other Provider Unavailable Saad DOE, Becky Other Provider Dylan Gooden MD Other Provider Elysia DOE, Sebastián Lange Other Provider Jhony Ward MD Other Provider Chris DO, Soraya Thorne Other Provider Concepcion DO, Rigo Other Provider Debra POND, Kayy Other Provider Unavailable Anahi DOE, Jessica Other Provider Ayaan Deras II Primary Care Provider Rodo Hopkins MD Attending Provider [phone] Jessica Christian MD Attending Provider Juan Carlos Chavez MD Attending Provider Koki Naranjo DO Other Provider Unavailable Arabella GARAY-CGeneva Attending Provider ERNESTINA BENAVIDES Attending Unavailable AYAAN DERAS Attending Unavailable AYAAN DERAS Attending Unavailable Ayaan Deras II Primary Care Provider Aris Patel MD Attending Provider Liliana Ackerman DO Other Provider Unavailab Aris Johnson MD Other Provider Liliana Soliz MD Attending Provider Navin QUALITY CONTROL REPRESENTATIVE-CGeneva Attending Provider Nestor Wright MD Attending Provider Ayaan Deras II Primary Care Provider [phone] Liliana Soliz MD Other Provider Kemal Yu Attending UnavailLiliana Hill Consulting Unavailable Hari Powell Admitting Unavailable Ayaan Deras Primary Care Unavailable Rodo Hopkins Consulting Unavailable Germain Cueva Consulting Unavailable Nestor Wright Consulting Unavailable Steph Parr Consulting Unavailable Aris Patel Attending Unavailable Liliana Soliz Consulting Unavailable Ayaan Deras Primary Care Unavailable Xavier Mello Admitting Unavailable Carmita Baker Consulting Unavailable Juan Carlos Chavez Consulting Unavailable Nestor Wright Attending Unavailable Nestor Wright Admitting Unavailable Lidia Crowley Consulting Unavailable Ayaan Deras Primary Care Unavailable Florence Poon Consulting Unavailable Kristal Garcia Consulting Unavailable Sima Guajardo Consulting Unavailable Catherine [...] Marcial Consulting Unavailable Evelia Cortez Consulting Unavailable DoameRosas flanagan Consulting UnavailPorter Prado Consulting Unavailable Tatianna Dumont Consulting Unavailable Koki Naranjo Consulting Unavailable Abelardo Mccann Consulting Unavailable Catina Stovall Consulting Unavailable Hari Powell Consulting Unavailable DaromaManuel mcdanielsaymaricruz Daniels Consulting Unavailable Macarena Arias Consulting Unavailable Penny Reinoso Consulting Unavailable Tessie Alaa Consulting Unavailable Ayaan Espinoza Consulting Unavailable Pascual, Yaben Consulting Unavailable Anshul Tomas Consulting Unavailable Genia Calvin Consulting Unava ilRahel Estrada Consulting Unavailable Becky Nash Consulting Unavailable Dylan Gooden Consulting Unavailable Sebastián Naidu Consulting Unavailable Jhony Ward Consulting Unavailable Soraya Perez Consulting Unavailable Bolzatyra-Rigo Mejia Consulting Unavaila Kayy Black Consulting Unavailable Jessica Christian Consulting Unavailable Liliana Soliz Consulting Unavailable Jessica Christian Attending Unavailable Jessica Christian Admitting Unavailable Ayaan Deras Primary Care Unavailable Nestor Wright Admitting Unavailable Nestor Wright Attending Unavailable Braeden, Ayaan Primary Care Unavailable Braeden, Ayaan Primary Care Unavailable Chavez, Juan Carlos Attending Unavailable Chavez, Juan Carlos Admitting Unavailable Elashi, Essam Admitting Unavailable Elashi, Essam Attending Unavailable Braeden, Ayaan Primary Care Unavailable Braeden, Ayaan Primary Care Unavailable Chavez, Juan Carlos Attending Unavailable Chavez, Juan Carlos Admitting Unavailable Braeden, Ayaan Primary Care Unavailable Chavez, Juan Carlos Admitting Unavailable Chavez, Juan Carlos Attending Unavailable Chavez, Juan Carlos Attending Unavailable Braeden, Ayaan Primary Care Unavailable Chavez, Juan Carlos Admitting Unavailable Deras II, Ayaan Primary Care Provider Scott DOE, Juan Carlos Attending Provider Kyle DOE, Nestor Admit Provider [phone] Kyle DOE, Nestor Other Provider Carline RN, Lidia Other Provider Unavailable Ayah RN, Florence Other Provider Unavailable Radha RN, Kristal Other Provider Unavailable Casandra RNSima Other Provider Unavailable Jose RNCatherine Other Provider Unavailable Marcelino RN, Sunshine Other Provider Unavailable Tyra Berg MD Other Provider Gurwinder Balderas DO Other Provider Jose Pate MD Other Provider Kemal Yu DO Other Provider Naresh Samaniego MD Other Provider [phone] Kiley Wilson MD Other Provider Liliana Ackerman DO Other Provider Unavailab saba Eldridge MD, Sebastián Other Provider Unavailable Harleen Larson APRN Other Provider [phone] Aris Patel MD Other Provider Shireen Chowdary MD Other Provider Unavailable Latasha Bowles MD Other Provider Liliana Morrison DO Other Provider Eliud Rojas MD Other Provider Ramila DOE, Migue Other Provider Aniket GARAY-C, Elsi Preston Other Provider [phone] Evelia Cortez APRN Other Provider Unavailable Rosas Paez MD Other Provider Navneet DOE, Porter Other Provider Tim DOE, Tatianna Other Provider Unavailable Koki Naranjo DO Other Provider Unavailable Siobhan DOAbelardo R Other Provider Wilman DO, Catina Other Provider Hari Powell DO Other Provider Mukesh DOE, Jameel Daniels Other Provider Macarena Arias APRN Other Provider Penny Reinoso APRN Other Provider Tessie DOE, Jay Other Provider Unavailable Ayaan Espinoza MD Other Provider [phone] Lorraine Garner DO Other Provider Thom DOE, Anshul Aldrich Other Provider Genia Calivn MD Other Provider [phone] Rahel Johnston APRN Other Provider Unavailable Becky Nash MD Other Provider Dylan Gooden MD Other Provider [phone] Sebastián Naidu MD Other Provider Jhony Ward MD Other Provider Soraya Perez APRN Other Provider Rigo Javier APRN Other Provider Debra POND, Kayy Other Provider Unavailable Anahi DOE, Jessica Other Provider Liliana Soliz MD Attending Provider Liliana Soliz MD Other Provider Jessica Christian MD Attending Provider Navin HENDERSON, Geneva Mcdaniels Attending Provider Nestor Wright MD Attending Provider Carolyn Ramsey MD Attending Provider Allergies Allergy ClassificationReported Allergen(s)Allergy TypeDate of OnsetReaction(s) Facility (7 sources)LatexDrug allergy (disorder)[id number] ([facility] source)Latex rubber glovesDrug allergyUnknoMissouri Southern Healthcare [facility] Other (9 sources)LatexAllergy to bulmranjt89-74-8987FaqaHEHH Healthcare (6 sources)Wheat preparationDrug [id number] (2 sources)Penicillin VDrug Scwkqxs37-98-1694NSGP [facility] (1 source)LatexDrug allergy (disorder)89-98-7709WdtapppvyMercy [facility] Medications Current Medications MedicationDrug Class(es)DatesSig (Normalized)Sig (Original)acetaminophen 500 mg oral tablet (12 sources)Start: 83-48-0022ydnw 2 tablets by mouth every four to six hours as needed for painacetaminophen 325 mg / oxyCODONE hydrochloride 5 mg oral tablet (20 sources)Opioid AgonistStart: 03-48-0305gamh 1 tablet by mouth every six hours as needed for painStart: 05-17-2025 End: 81-44-1037fvbc 1 tablet by mouth every four hours as needed for pain Oxycodone-Acetaminophen 5-325 mg Tablet Discontinued 1 - 2 TAB PO Q4H as needed for Pain Scale 4 - 7 14 3 0 May 17, 2025 June 15, 2025 10:06am Cellulitis of abdominal wall Cellulitis of abdominal wallStart: 04-04-2025 End: 68-47-2092wnir 1 tablet by mouth every six hours as needed for pain Oxycodone-Acetaminophen 5-325 mg tablet Discontinued 1 TAB PO Q6H as needed for pain 28 7 0 May 01, 2025 May 17, 2025 1:08pm Other acute postprocedural pain Other acute postprocedural painStart: 03-14-2025 End: 89-74-3778rfqJOLKNS-acetaminophen (Percocet) 5-325 MG tablet Indications: Skin necrosis (CMS/HCC) Take 0.5-1 tablets by mouth every 6 (six) hours if needed for severe pain for up to 7 days Every 4-6 hours prn severe pain 28 tablet 03/14/2025 03/21/2025 ActiveStart: 03-10-2025 End: 74-89-3844okeo 1 tablet by mouth every four to six hours as needed for pain Start: 03-19-2023 End: 94-05-8929zuma 1 tablet by mouth every six hours as needed for pain Oxycodone-Acetaminophen 5-325 mg tablet Discontinued 1 TAB PO Q6H as needed for Pain March 181:00pm February 26, 2025 5:22pmAdhesive Tape (Elastic Foam Tape 1 x5yd) tape (15 sources)Start: 68-28-4307Kpnihssh Tape (Elastic Foam Tape 1 x5yd) tape Indications: Skin necrosis (HCC) 1 Application every other day 5 each 03/14/2025 ActiveStart: 78-20-6185Vglxvkmo Tape (Elastic Foam Tape 1 x5yd) tape Indications: Skin necrosis (CMS/HCC) 1 Application every other day 5 each 03/14/2025 ActiveamLODIPine 10 mg oral tablet (20 sources)Dihydropyridine Calcium Channel BlockerStart: 55-80-3991xyqj 5 mg by mouth once dailyStart: 03-09-2025 End: 45-48-0515kwcs 1 tablet by mouth once dailyAmlodipine 10 mg Tablet Discontinued 10 MG PO Daily May 07, 2025 11:00pm May 17, 2025 1:08pm atropine sulfate 0.025 mg / diphenoxylate hydrochloride 2.5 mg oral tablet (1 source)Anticholinergic, Cholinergic Muscarinic Antagonist, Antidiarrhealtake 1 tablet by mouth every six hoursDiphenoxylate-Atropine 2.5-0.025 MG 1 tablet as needed Orally Four times a day ActiveBlood Pressure Monitoring ([place] BP Monitor Cuff) misc (15 sources)Start: 62-76-0819Oxvhe Pressure Monitoring ([place] BP Monitor Cuff) misc 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 1 Device Daily 1 each 03/14/2025 ActiveContinuous Glucose Blower Blast Furnace (Dexcom G7 Blower Blast Furnace) device (13 sources)Start: 39-19-2695Ekwcukonhi Glucose Blower Blast Furnace (Dexcom G7 Blower Blast Furnace) device Indications: Type 2 diabetes 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, with long-term current use of insulin (HCC) 1 Device Daily 1 each 03/14/2025 ActiveStart: 20-61-5733Wrkvwsevjj Glucose Blower Blast Furnace (Dexcom G7 Blower Blast Furnace) device Indications: Type 2 diabetes 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, with long-term current use of insulin (CMS/HCC) 1 Device Daily 1 each 03/14/2025 ActiveContinuous Glucose Sensor (Dexcom G7 Sensor) misc (13 sources)Start: 26-20-1728Mekallrvwu Glucose Sensor (Dexcom G7 Sensor) misc Indications: Type 2 diabetes 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, with long-term current use of insulin (HCC) 1 Device Every 10 (ten) days 9 each 3 03/14/2025 Active Start: 16-39-5699Zprcagwyxo Glucose Sensor (Dexcom G7 Sensor) misc Indications: Type 2 diabetes 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, with long-term current use of insulin (CMS/HCC) 1 Device Every 10 (ten) days 9 each 3 03/14/2025 Active Continuous Glucose Sensor (FreeStyle Maria Esther 3 Plus Sensor) misc (2 sources)Start: 88-58-7507Kswbybxdam Glucose Sensor (FreeStyle Maria Esther 3 Plus Sensor) [facility] Indications: Type 2 diabetes 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, with long-term current use of insulin ([facility]) 1 each Every 15 Days 2 each 11 06/20/2025 Active3 ml insulin glargine 100 unt/ml pen injector (20 sources)Insulin AnalogStart: 03-14-2025 End: 34-54-0476cvanxh 10 [IU] by subcutaneous injection at bedtime as needed Start: 11-19-2023 End: 27-74-4243emgdufv glargine (Lantus SoloStar) 100 UNIT/ML pen Indications: Type 2 diabetes 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, with long-term current use of insulin (CMS/HCC) Inject 60 Units under the skin in the morning. 5 mL 12 11/19/2023 03/14/2025 Discontinued (Reorder)Start: 03-19-2023 End: 40-82-0635Ifdoavo Glargine (Lantus Solostar U-100 Insulin) 100 unit/mL (3 mL) insulin pen Discontinued 60 UNIT SUBCUT Every morning March 18, 2023 11:00pm February 26, 2025 5:22pmLantus ActiveNo Name (No Known Home Meds) (1 source)Start: 55-00-2642Mf Name (No Known Home Meds) Active February 26, 2025 12:00amondansetron 4 mg oral tablet (20 sources)Serotonin-3 Receptor AntagonistStart: 68-78-0953epke 1 tablet by mouth three times weeklyStart: 04-06-2025 End: 50-54-7708oitj 1 tablet by mouth every eight hours as neededondansetron (Zofran) 4 MG tablet Take 4 mg by mouth every 8 (eight) hours if needed 04/06/2025 07/13/2025 DiscontinuedStart: 03-28-2025 End: 36-62-1251gwnq 1 tablet by mouth once dailyOndansetron 4 mg tablet,disintegrating Discontinued 4 MG PO Daily March 27, 2025 11:00pm April 5:49pm FreeTextSi tablet on the tongue and allow to dissolve Orally Once a day; Note: Source Status: Taking; Provider: Braulio Leon ( )Start: 03-19-2023 End: 80-54-6651Bymmdvoxqej Hcl 4 mg tablet Discontinued 4 MG PO As Directed as needed for Nausea March 18, 2023 11:00pm February 26, 2025 5:22pmtake 1 tablet by mouth every twenty-four hoursOndansetron 4 MG 1 tablet on the tongue and allow to dissolve Orally Once a day Activepantoprazole 40 mg delayed release oral tablet (20 sources)Proton Pump InhibitorStart: 72-80-8854ysmj 1 tablet by mouth once dailypantoprazole (ProtoNix) 40 MG EC tablet Indications: GERD without esophagitis Take 1 tablet (40 mg)by mouth Daily 100 tablet 3 07/13/2025 Active Start: 56-82-6891jukv 1 tablet by mouth once dailypantoprazole (ProtoNix) 40 MG EC tablet Indications: GERD without esophagitis Take 1 tablet (40 mg)by mouth Daily 100 tablet 3 07/13/2025 ActiveStart: 03-19-2023 End: 61-50-1673jxmj 1 tablet by mouth once dailypolyethylene glycol 3350 877895 mg / potassium chloride 2970 mg / sodium bicarbonate 6740 mg / sodium chloride 5860 mg / sodium sulfate 63436 mg powder for oral solution (1 source)Osmotic LaxativeStart: 82-14-7781qozp 236 g by mouth once daily Golytely 236 GM 236 gm Orally the day before colonoscopy for 1 days February, Activesertraline 50 mg oral tablet (6 sources)Serotonin Reuptake InhibitorStart: 34-87-6065wonz 1 tablet by mouth once dailysevelamer carbonate 800 mg oral tablet (20 sources)Phosphate BinderStart: 73-00-4408oobirkhdv carbonate (Renvela) 800 MG tablet Take 800 mg by mouth in the morning and 800 mg at noon and 800 mg in the evening. Take with meals. 03/11/2025 ActiveStart: 86-55-8586koqd 1 tablet by mouth once at mealtimesodium polystyrene sulfonate 16358 mg powder for oral suspension (8 sources) End: 35-65-7039vpaz 15 g by mouth oncesodium polystyrene sulfonate (Kayexalate) powder Take 15 g by mouth 1 (one) time Take 120 ml PO as directed by Dialysis Clinic - emgergency use only - 04/17/2025 Discontinued Completed/Discontinued Medications MedicationDrug Class(es)DatesSig (Normalized)Sig (Original)amoxicillin 500 mg / clavulanate 125 mg oral tablet (8 sources)Penicillin-class AntibacterialStart: 05-17-2025 End: 37-31-3353arzc 1 tablet by mouth twice dailyAmoxicillin-Pot Clavulanate (Augmentin) 500-125 mg tablet Discontinued 1 TAB PO Twice daily 14 7 0 May 16, 2025 11:00pm May 30, 2025 8:18amatorvastatin 40 mg oral tablet (18 sources)HMG-CoA Reductase InhibitorStart: 03-19-2023 End: 25-41-9196odal 1 tablet by mouth once dailyAtorvastatin 40 mg tablet Discontinued 40 MG PO Daily March 18, 2023 11:00pm February 26, 2025 5:23pm carvedilol 6.25 mg oral tablet (4 sources)alpha-Adrenergic Maggie, beta-Adrenergic Maggie End: 05-21-7983hsfvuorlva (Coreg) 6.25 MG tablet Take by mouth 2 (two) times a day with meals 03/14/2025 DiscontinuedcloNIDine hydrochloride 0.2 mg oral tablet (4 sources)Central alpha-2 Adrenergic AgonistStart: 11-03-2023 End: 19-91-1221vaur 1 tablet by mouth every eight hourscloNIDine (Catapres) 0.2 MG tablet Take 0.2 mg by mouth every 8 (eight) hours 11/03/2023 03/14/2025 DiscontinuedContinuous Blood Gluc Blower Blast Furnace (Dexcom G4 pilot station education faculty member) device (4 sources)Start: 02-19-2023 End: 23-93-4159Ddgtdpzzix Blood Gluc Blower Blast Furnace (Dexcom G4 pilot station education faculty member) device Inject 1 Device under the skin.02/19/2023 03/14/2025 DiscontinuedStart: 31-15-7115Rycksimycn Blood Gluc Blower Blast Furnace (Dexcom G4 pilot station education faculty member) device Inject 1 Device under the skin.02/19/2023 ActiveContinuous Blood Gluc Sensor (Dexcom G4 Sensor) misc (4 sources)Start: 01-06-2024 End: 22-50-0215Lciygamkbf Blood Gluc Sensor (Dexcom G4 Sensor) misc Indications: Type 2 diabetes 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, with long-term current use of insulin ([facility]) Place 1 application on the skin every 14(fourteen) days 6 each 01/06/2024 03/14/2025 DiscontinuedStart: 91-11-8456Cezwufcybz Blood Gluc Sensor (Dexcom G4 Sensor) misc Indications: Type 2 diabetes mellitus with hype rglycemia, with long-term current use of insulin (CMS/[facility]) Place 1 application on the skin every 14(fourteen) days 6 each 01/06/2024 ActiveContinuous Blood Gluc Transmit (Dexcom G4 pilot station transmitter) misc (4 sources)Start: 11-10-2023 End: 17-67-0814jesler 1 dose by subcutaneous injection onceContinuous Blood Gluc Transmit (Dexcom G4 pilot station transmitter) misc Indications: Type 2 diabetes me llitus with hyperglycemia, with long-term current use of insulin (CMS/[facility]) Inject 1 each under the skin every 14 (fourteen) days 6 each 11/10/2023 03/14/2025 DiscontinuedStart: 91-93-9919bsrrcw 1 dose by subcutaneous injection onceContinuous Blood Gluc Transmit (Dexcom G4 pilot station transmitter) [facility] Indications: Type 2 diabetes 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, with long-term current use of insulin ([facility]) Inject 1 each under the skin every 14 (fourteen) days 6 each 3 11/10/2023 Activedapagliflozin 10 mg oral tablet (14 sources)Sodium-Glucose Cotransporter 2 InhibitorStart: 03-19-2023 End: 42-12-3272tlxz 1 tablet by mouth once dailyDapagliflozin Propanediol (Farxiga) 10 mg tablet Discontinued 10 MG PO Daily March 18, 2023 11:00pmMa2024 5:22pmferrous sulfate 325 mg oral tablet (18 sources)Start: 03-19-2023 End: 94-26-2745uifg 1 tablet by mouth once dailyFerrous Sulfate 325 mg (65 mg iron) tablet Discontinued 325 MG PO Daily March 18, 2023 11:00pm February 26, 2025 5:22pmfurosemide 40 mg oral tablet (20 sources)Loop DiureticStart: 03-09-2025 End: 25-73-6198avzb 1 tablet by mouth twice dailyFurosemide 40 mg Tablet Discontinued 40 MG PO BID@0800,1600 60 30 0 March 08, 2025 11:00pm May 08, 2025 5:48pm Further refills, or dose adjustment, per Nephrology, or PCP.Start: 03-19-2023 End: 45-63-2206jclq 1 tablet by mouth once daily3 ml insulin glargine 100 unt/ml / lixisenatide 0.033 mg/ml pen injector (13 sources)Insulin AnalogStart: 07-26-2021 End: 80-37-0078Faksfqg Glargine-Lixisenatide (Soliqua 100/33) 100 unit-33 mcg/mL Insulin Pen Discontinued 35 UNIT SUBCUT Every morning July 25, 2021 11:00pm March 19, 2023 7:00amlidocaine 0.04 mg/mg medicated patch (13 sources)Antiarrhythmic, Amide Local AnestheticStart: 03-19-2023 End: 13-97-6335rjbok 1 dose topically once daily as needed for painLidocaine 4 % Adhesive Patch,Medicated Discontinued 1 PATCH TOPICAL Daily as needed for Pain March 18, 2023 11:00pm February 26, 2025 5:22pmlosartan potassium 100 mg oral tablet (20 sources)Angiotensin 2 Receptor BlockerStart: 03-09-2025 End: 19-90-5101ryig 1 tablet by mouth once dailyLosartan 100 mg tablet Discontinued 100 MG PO Daily May 07, 2025 11:00pm May 17, 2025 1:08pm metFORMIN hydrochloride 500 mg oral tablet (13 sources)BiguanideStart: 07-26-2021 End: 34-07-2723fhqs 1 tablet by mouth twice dailyMetformin 500 mg Tablet Discontinued 500 MG PO Twice daily July 25, 2021 11:00pm March 19, 2023 6:59ammetoclopramide 5 mg oral tablet (19 sources)Dopamine-2 Receptor AntagonistStart: 04-25-2025 End: 77-54-3475bycj 1 tablet by mouth three times dailyMetoclopramide Hcl 5 mg tablet Discontinued 5 MG PO Three times daily April 24, 2025 11:00pm August 29, 2025 1:32pmStart: 24-22-9109yrow 0.5 tablet by mouth in the morning, then take 0.5 tablet by mouth in the evening, then take 0.5 tablet by mouth at bedtimemetoclopramide (Reglan) 5 MG tablet Take 0.5 tablets by mouth in the morning and 0.5 tablets in theevening and 0.5 tablets before bedtime. 03/31/2025 Yplbfg71 hr nicotine 0.875 mg/hr transdermal system (13 sources)Cholinergic Nicotinic AgonistStart: 03-19-2023 End: 90-75-1216asbzz 1 dose transdermal route every twenty-four hoursNicotine 21 mg/24 hr patch 24 hour Discontinued 1 PATCH TRANSDERML Daily March 18, 2023 11:00pm 2024 5:22pmpotassium chloride 10 meq extended release oral capsule (4 sources)Start: 11-10-2023 End: 06-99-0344xqbf 1 capsule by mouth in the morningpotassium chloride ER (Micro-K) 10 MEQ ER capsule Indications: Chronic diastolic heart failure (CMS/ HCC) Take 1 capsule (10 mEq) by mouth in the morning. 100 capsule 3 11/10/2023 03/14/2025 Discontinuedspironolactone 25 mg oral tablet (14 sources)Aldosterone AntagonistStart: 03-19-2023 End: 32-75-4560wrvh 1 tablet by mouth once dailySpironolactone 25 mg tablet Discontinued 25 MG PO Daily March 18, 2023 11:00pm February 26, 2025 5:22pmtraZODone hydrochloride 100 mg oral tablet (18 sources)Serotonin Reuptake InhibitorStart: 03-19-2023 End: 42-55-6302cqyw 1 tablet by mouth once daily at bedtime as neededTrazodone 100 mg tablet Discontinued 100 MG PO Daily at bedtime as needed for Insomnia March 18, 2023 11:00pm February 26, 2025 5:22pmvancomycin 125 mg oral capsule (20 sources)Glycopeptide AntibacterialStart: 03-09-2025 End: 20-80-7684uwvq 1 capsule by mouth four times dailyVancomycin 125 mg Capsule Discontinued 125 MG PO Four times daily 40 10 0 March 08, 2025 11:00pm March 28, 2025 9:14amStart: 21-07-4188zich 1 capsule by mouth four times daily Vancomycin HCl 125 MG 1 capsule Orally 4 times daily for 10 days February, Active Problems Active Problems Problem ClassificationProblemDateDocumented DateEpisodic/ChronicAbdominal pain (1 source)Abdominal pain; Translations: [Unspecified abdominal pain]08-29-2025 EpisodicBacterial infection; unspecified site (1 source)Other specified bacterial agents as the cause of diseases classified elsewhere; Translations: [OTH SPEC BACTERIAL DZ CLASS ELSW]Onset: 01-12-2023 EpisodicChronic kidney disease (20 sources)Anemia of renal disease; Translations: [Chronic kidney disease, unspecified]Onset: 874670-56-8077OqynoefXhnmzkr kidney disease (1 source)Chronic kidney disease; Translations: [CHRONIC KIDNEY DISEASE STAGE 3A]Onset: 73-66-5216Zetaycd obstructive pulmonary disease and bronchiectasis (1 source)Chronic obstructive pulmonary disease, unspecified; Translations: [COPD UNSPECIFIED]Onset: 23-23-1822UvbmqawBcgnskmlsciti of surgical procedures or medical care (20 sources)Other complications of procedures, not elsewhere classified, subsequent encounter; Translations: [Other complications of procedures, not elsewhere classified, initial encounter]Onset: 58-41-1568TkwcvevyQfjuetnemu heart failure; nonhypertensive (20 sources)Chronic diastolic (congestive) heart failure; Translations: [Acute diastolic (congestive) heart failure]Onset: 11-63-3799NiloiuyNbkjebvhjf and other anemia (1 source)Anemia in chronic kidney disease; Translations: [Anemia in chronic kidney disease]Onset: 49-09-7676AmwxfpfHrklrwda mellitus with complications (20 sources)Type 2 diabetes 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; Translations: [Type 2 diabetes mellitus with diabetic chronic kidney disease]Onset: 12-03-2022 Resolved: 995182-08-9918VedksxlVrmjqraz mellitus without complication (20 sources)Type 2 diabetes mellitus without complications; Translations: [Diabetes mellitus]Onset: 693032-31-4888QborhjoYuvvjuj on above:Problem List clean-up per request of Phys. EHR CmteDiseases of white blood cells (9 sources)Elevated white blood cell count, unspecified; Translations: [Leukocytosis, unspecified]Onset: 279868-56-3579RxfizunWgncmottm of lipid metabolism (20 sources)Hyperlipidemia, unspecified; Translations: [Pure hypercholesterolemia, unspecified]Onset: hronic Diverticulosis and diverticulitis (17 sources)Diverticulitis; Translations: [Diverticulitis of intestine, part unspecified, without perforation or abscess without bleeding]Onset: 03-05-2023 40-65-1054RiqeuxhClpzrukxte disorders (20 sources)Gastroesophageal reflux disease without esophagitis; Translations: [Gastro-esophageal reflux disease without esophagitis]Onset: 03-05-2023 73-58-1164EduvngxKlrzbsdaj hypertension (20 sources)Essential (primary) hypertension; Translations: [Hypertensive disorder]Onset: 967876-92-6000FbdjkcaNcskn and electrolyte disorders (20 sources)Hypokalemia; Translations: [Metabolic acidosis]Onset: 08-12-2022 77-06-3065RhtwscpxObitzjzbt and duodenitis (20 sources)Gastroduodenitis, unspecified, without bleeding; Translations: [Acute gastritis]Onset: 533070-12-7531SzllhapzYmzzjkqepgtj with complications and secondary hypertension (20 sources)Hypertensive heart and chronic kidney disease with heart failure and stage 1 through stage 4 chronic kidney disease, or unspecified chronic kidney disease; Translations: [Hypertensive urgency]Onset: 71-47-1865PfknhwtUsigqwytte infection (20 sources)Clostridium difficile diarrhea; Translations: [Enterocolitis due to Clostridium difficile, not specified as recurrent]Onset: EpisodicMalaise and fatigue (4 sources)Physical deconditioning; Translations: [Other malaise]03-14-2025 EpisodicMenopausal disorders (17 sources)Menorrhagia; Translations: [Excessive bleeding in the premenopausal period]Onset: 325185-48-1041PpkjhraWyav disorders (1 source)Major depressive disorder, single episode, unspecified; Translations: [JOSÉ DEPRESS D/O SINGLE EPIS UNS]Onset: 40-79-5694OovojusVslg wounds of head; neck; and trunk (20 sources)Open wound of abdomen; Translations: [Unspecified open wound of abdominal wall, unspecified quadrant without penetration into peritoneal cavity, initial encounter]Onset: 219018-68-9898BbljkbzdCdfaa circulatory disease (6 sources)Arteriovenous fistula; Translations: [Arteriovenous fistula, acquired]62-70-3320XiugecwEyhig connective tissue disease (2 sources)Pain in right leg; Translations: [Pain in right leg]Onset: 11-25-2023 EpisodicOther connective tissue disease (2 sources)Pain in left leg; Translations: [Pain in left leg]Onset: 11-25-2023 EpisodicOther diseases of kidney and ureters (19 sources)Secondary hyperparathyroidism; Translations: [Secondary hyperparathyroidism of renal origin]10-16-7135FrwqmrkJbzhx diseases of kidney and ureters (1 source)Secondary hyperparathyroidism of renal origin; Translations: [Secondary hyperparathyroidism of renal origin]Onset: 32-71-1314AjkvdvkQcors disorders of stomach and duodenum (20 sources)Gastroparesis syndrome; Translations: [Gastroparesis]03-14-2025 EpisodicOther female genital disorders (17 sources)Abnormal uterine bleeding; Translations: [Other specified abnormal uterine and vaginal bleeding]Onset: 581764-17-4502WqiglydCqsjm gastrointestinal disorders (4 sources)Diarrhea, unspecified; Translations: [DIARRHEA UNSPECIFIED]Onset: 40-51-7165WkafofgzUkjdf gastrointestinal disorders (5 sources)Diarrhea; Translations: [Diarrhea, unspecified]60-83-8957Ijwymhjn Other gastrointestinal disorders (17 sources)Chronic constipation; Translations: [Other constipation]03-30-2025 EpisodicOther nervous system disorders (11 sources)Acute postoperative pain; Translations: [Other acute postprocedural pain]42-78-9605UzretyotPcntf nutritional; endocrine; and metabolic disorders (1 source)Body mass index (BMI) 45.0-49.9, adult; Translations: [BODY MASS INDEX BMI 45.0-49.9 ADULT]Onset: 93-78-0908SvupvfvFuoza nutritional; endocrine; and metabolic disorders (1 source)Morbid (severe) obesity due to excess calories; Translations: [MORBID SEVERE OBES D/T EXCESS YG]Onset: 68-09-1814IkoanmiUvsqr nutritional; endocrine; and metabolic disorders (20 sources)Calciphylaxis; Translations: [Other disorders of calcium metabolism] 06-46-3021LxeafrhOfiew nutritional; endocrine; and metabolic disorders (18 sources)Hyperphosphatemia; Translations: [Other disorders of phosphorus metabolism]47-32-3651GmhjdllAltlu nutritional; endocrine; and metabolic disorders (6 sources)Other disorders of calcium metabolism; Translations: [Other disorders of calcium metabolism]Onset: 343288-28-7039PypmpxaBmtvm nutritional; endocrine; and metabolic disorders (4 sources)Other disorders of phosphorus metabolism; Translations: [Disorders of phosphorus metabolism]Onset: 635709-62-1142EdgrfjbFqdvn nutritional; endocrine; and metabolic disorders (2 sources)Obesity caused by energy imbalance; Translations: [Morbid (severe) obesity due to excess calories]06-74-3566LjtczlxGpjla nutritional; endocrine; and metabolic disorders (2 sources)Body mass index 40+ - severely obese; Translations: [Body mass index (BMI) 40.0-44.9, adult]13-91-4100ZgymulhHufwr screening for suspected conditions (not mental disorders or infectious disease) (20 sources)Patient encounter status; Translations: [Encounter for screening for malignant neoplasm of colon]Onset: 712341-20-6304AijeihxcUnmcrpq on above:Problem List clean-up per request of Phys. EHR CmteResidual codes; unclassified (17 sources)Insomnia co-occurrent and due to medical condition; Translations: [Insomnia due to medical condition]Onset: 439671-51-4196DfzxfczCoqlcmli codes; unclassified (19 sources)Obstructive sleep apnea syndrome; Translations: [Obstructive sleep apnea (adult) (pediatric)]73-39-6519SfmkotwQmqxxtiq codes; unclassified (1 source)Obstructive sleep apnea (adult) (pediatric); Translations: [Obstructive sleep apnea (adult) (pediatric)]Onset: 37-80-5712MpiwiibRziaycnv codes; unclassified (2 sources)Localized edema; Translations: [Localized edema]Onset: 11-25-2023 EpisodicResidual codes; unclassified (16 sources)Failed ehiwshham98-34-2413AlsugfviDxot and subcutaneous tissue infections (20 sources)Cellulitis of other sites; Translations: [Cellulitis of abdominal wall ]Onset: 472798-86-8898PyitlvxzHugmnytdhfo; intervertebral disc disorders; other back problems (19 sources)Lumbar radiculopathy; Translations: [Radiculopathy, lumbar region] Onset: 311006-19-1887WmakmfejWhvsrttpe-kpmimio disorders (19 sources)Nicotine dependence, cigarettes, with unspecified nicotine-induced disorders; Translations: [Nicotine dependence, cigarettes, uncomplicated]Onset: 076306-67-2605PnpxlfpYzevuskecrmd (1 source)CHRN KIDNEY DISEASE STG 3 UNSP; Translations: [CHRN KIDNEY DISEASE STG 3 UNSP]Onset: 03-85-4420Dvlxsjnhjgkt (1 source)CONTACT W/AND (SUSP) EXPOS COVID-19; Translations: [CONTACT W/AND (SUSP) EXPOS COVID-19]Onset: 84-18-5988Rlhnvranefve (5 sources) Please bring your photo ID, insurance card, and current list of medications. Unclassified (5 sources) Unclassified (5 sources)Follow up with Dr. Chavez. Please preregister with central scheduling at [phone] (10 sources)Call if needed.Unclassified (10 sources)Hospital follow up appointment. Please call and reschedule if needed.Unclassified (10 sources)The office will call with pathology results from your EGD. Unclassified (5 sources)You are scheduled for your next dressing change on the following date and time. Please call to reschedule if needed.Unclassified (5 sources)Your next dialysis treatment is scheduled for the following date and time. Please arrive by 11 am.Unclassified (5 sources)Follow up with Dr. Chavez.Unclassified (12 sources)Post hospital appointment. Please call to reschedule if needed. Unclassified (5 sources)Call for appointment. I would like to see you in 2 to 3 weeks if no problems before handUnclassified (1 source)Acidosis, unspecified; Translations: [Acidosis, unspecified]Onset: 02-23-2025 Past or Other Problems Problem ClassificationProblemDateDocumented DateEpisodic/ChronicAcute and unspecified renal failure (11 sources)Acute kidney failure, unspecified; Translations: [Acute renal failure syndrome]Onset: 301053-77-5110UjmuexzwFibeylnlru and other anemia (1 source)Anemia, unspecified; Translations: [ANEMIA UNSPECIFIED]Onset: 88-87-9355HlypirxuXorhpsnayf and other anemia (17 sources)Anemia; Translations: [Anemia, unspecified]Onset: 11-10-2023 33-01-9284QaquyglbGrztlewq (13 sources)Gangrene, not elsewhere classified; Translations: [Skin necrosis] Onset: 664948-21-7484NswfirwsBwlu disorders (10 sources)Mood disorders; Translations: [DEPRESSION UNSPECIFIED]Onset: 186738-46-8928Akfrfbu (10 sources)Candidal intertrigo; Translations: [Candidiasis of skin and nail] Onset: 584431-06-0624FzibwkbdTlbaep and vomiting (10 sources)Nausea and vomiting; Translations: [Nausea with vomiting, unspecified]Onset: 992340-03-3905YnrfxkckKfewgdrdkwpc breast conditions (1 source)Mastitis without abscess; Translations: [MASTITIS WITHOUT ABSCESS] Onset: 88-82-2312BorctuhcDkkob aftercare (1 source)[facility] (current) use of oral hypoglycemic drugs; Translations: [SCIENTIFIC INFORMATICS LEADER USE ORAL HYPOGLYCEMIC DX]Onset: 99-15-6914LixihlzxQjrdw aftercare (1 source)Other alf (current) drug therapy; Translations: [OTH SCIENTIFIC INFORMATICS LEADER CURRENT DRUG THERAPY]Onset: 40-95-0130OawbbhbaXjaxq aftercare (1 source)[facility] (current) use of insulin; Translations: [SCIENTIFIC INFORMATICS LEADER CURRENT USE OF INSULIN]Onset: 56-08-7791MxeywswmZcfhh aftercare (17 sources)Long-term current use of insulin; Translations: [[facility] (current) use of insulin]Onset: 761622-63-4546UcqayxkeQmliv disorders of stomach and duodenum (5 sources)Gastroparesis; Translations: [Gastroparesis]Onset: 02-23-2025 51-53-8832NsmfsitjTbcdk ear and sense organ disorders (3 sources)Otalgia, right ear; Translations: [OTALGIA RIGHT EAR]Onset: 13-92-8440CutxgildKhhtr gastrointestinal disorders (1 source)Other fecal abnormalities; Translations: [OTHER FECAL ABNORMALITIES] Onset: 50-55-9183GscmymlrSygid gastrointestinal disorders (20 sources)Dysphagia; Translations: [Other dysphagia]Onset: 10-05-2017 Resolved: 777020-47-6419NayexaxmUenpp gastrointestinal disorders (15 sources)History of gastritis; Translations: [Personal history of other diseases of the digestive system]Onset: 275622-29-3282RexaspzbWgilk gastrointestinal disorders (3 sources)Other constipation; Translations: [Constipation, unspecified]Onset: 450833-21-3703MuafrgmaHadij nervous system disorders (1 source)Other acute postprocedural pain; Translations: [Other acute postprocedural pain]Onset: 40-49-8150YoenxhkgEobvh upper respiratory infections (1 source)Acute upper respiratory infection, unspecified; Translations: [ACUTE UP RESPIRATORY INFECTION UNS]Onset: 00-91-9744SpljcszhYqejwu media and related conditions (1 source)Otitis media, unspecified, right ear; Translations: [OTITIS MEDIA UNSPECIFIED RIGHT EAR]Onset: 37-87-2328DlddnnmgIbicqnhq; pneumothorax; pulmonary collapse (1 source)Pleural effusion in other conditions classified elsewhere; Translations: [PLEURAL EFF OTH COND CLASS ELSW]Onset: 88-95-6511IhxgoqlmJkoanrwi codes; unclassified (1 source)Family history of malignant neoplasm of breast; Translations: [FAMILY HX MALIG NEOPLASM OF BREAST]Onset: 81-56-7605OoycyhfrKxgfjqlk codes; unclassified (17 sources)Bilateral lower limb edema; Translations: [Localized edema]Onset: 271237-44-1858UnadsoasZqgdzbvzeub failure; insufficiency; arrest (adult) (1 source)Acute respiratory failure with hypoxia; Translations: [ACUTE RESPIRATORY FAIL W/HYPOXIA]Onset: 55-67-7999HshtgnwdPifhffycro (except in labor) (4 sources)Sepsis, unspecified organism; Translations: [Severe sepsis without septic shock]Onset: 44-73-4207Srpyfgpb Results Test NameValueInterpretationReference RangeFacilityUS AV Fistulaon 60-84-1803CA AV FistulaNoNovant Health [facility] Physician GroupALBUMIN, RANDOM URINE W/CREATININE on 53-41-8470HMJILXW, URINE93.4 mg/dLNormalSee Note:[facility] DiagnosticsComment on above:Result Comment: Reference Range: Reference Range Not established Results verified by repeat analysis on dilution.Performed By: #### 63058, 1759 #### [facility] [address] [place] [address] [employer]: Valencia Palmer #### 6049, 5766 #### [facility] [address], [address] [place] [phone] [employer]: Kody Manriquez MDALBUMIN/CREATININE RATIO, RANDOM [id number] mg/g creatHigh<30Quest DiagnosticsComment on above:Result Comment: The ADA defines abnormalities in albumin excretion as follows: Albuminuria Category Result (mg/g creatinine) Normal to Mildly increased <30 Moderately increased 30-299 Severely increased > OR = 300 The ADA recommends that at least two of three specimens collected within a 3-6 month period be abnormal before considering a patient to be within a diagnostic category.Performed By: #### 45386, 1759 #### [facility] [facility] [address] [place] [address] [employer]: Valencia Palmer #### 7600, 6517 #### [facility] [address], [address] [place] [address] [employer]: Kody Manriquez MDCreatinine (U) [Mass/Vol]38 mg/aJXedwbc66-422 [facility] DiagnosticsComment on above:Performed By: #### 96959, 1759 #### [facility] [address] [place] [address] [employer]: Valencia Palmer #### 7600, 6517 #### [facility] [address], [address] [place] [address] [employer]: Kody Manriquez MDCBC (H/H, RBC, INDICES, WBC, PLT)on 07-18-2025 Erythrocyte distribution width (RBC) [Ratio]21.3 %High11.0-15.0[facility] Comment on above:Performed By: #### 32470, 1759 #### [facility] [address] [employer]: Valencia Palmer #### 7600, 6517 #### [facility] [address], [address] [place] [address] [employer]: Kody Manriquez MDHematocrit (Bld) [Volume fraction]39.2 %Normal 35.0-45.0Quest DiagnosticsComment on above:Performed By: #### 79001, 1759 #### [facility] [address] [place] [address] [employer]: Valencia Palmer #### 7600, 6517 #### [facility] [address], [address] [place] [address] [employer]: Kody Manriquez MDHemoglobin (Bld) [Mass/Vol]12.0 g/dLNormal 11.7-15.5Quest DiagnosticsComment on above:Performed By: #### 43388, 1759 #### [facility] [address] [place], [place] [phone] [employer]visor [employer]: Valencia Palmer #### 7600, 6517 #### [facility] [address], [address] [place] [address] [employer]: Kody Manriquez MDMCH (RBC) [Entitic mass]27.0 zbPmsmkv83.0-33.0 [facility] DiagnosticsComment on above:Performed By: #### 64232, 1759 #### [facility] [address] [place] [address] [employer]visor [employer]: Valencia Palmer #### 7600, 6517 #### [facility] [address], [address] [place] [address] [employer]: Kody ADAMESCHC (RBC) [Mass/Vol]30.6 g/dLLow32.0-36.0 [facility] DiagnosticsComment on above:Result Comment: For adults, a slight decrease in the calculated MCHC value (in the range of 30 to 32 g/dL) is most likely not clinically significant; however, it should be interpreted with caution in correlation with other red cell parameters and the patient's clinical condition.Performed By: #### 86712, 1759 #### [facility] [address] [place], [place] [phone] [employer]: Valencia Palmer #### 7600, 6517 #### [facility] [address], [address] [place] [address] [employer]: Kody Manriquez MDMCV (RBC) [Entitic vol]88.1 kXOnhean92.0-100.0 [facility] DiagnosticsComment on above:Performed By: #### 43530, 1759 #### [facility] [address] [place], [place] [id number] [employer]: Valencia Palmer #### 7600, 6517 #### [facility] [address], [address] [place], [place] [id number] [employer]: Kody Ferrarotebernie mean volume (Bld) [Entitic vol]9.6 fL Normal7.5-12.5Quest DiagnosticsComment on above:Performed By: #### 33311, 1759 #### [facility] [address] [place] [address] [employer]: Valencia Palmer #### 7600, 6517 #### [facility] [address], [address] [place] [address] [employer]: Kody Manriquez [facility] ([facility] [#/Vol]230 10*3/uLNormal 140-400Quest DiagnosticsComment on above:Performed By: #### 48973, 1759 #### [facility] [address] [place] [address] [employer]: Valencia Palmer #### 7600, 6517 #### [facility] [address], [address] [place] [address] [employer]: Kody Manriquez [facility] ([facility]) [#/Vol]4.45 10*6/uLNormal3.80-5.10 [facility] DiagnosticsComment on above:Performed By: #### 66554, 1759 #### [facility] [address] [place] [address] Supervisor [employer]: Valencia Palmer #### 7600, 6517 #### [facility] [address], [address] [place] [address] [employer]: Kody Manriquez [facility] ([facility] [#/Vol]10.1 10*3/uLNormal3.8-10.8 [facility] DiagnosticsComment on above:Result Comment: Review of peripheral smear confirms automated results.Performed By: #### 37937, 1759 #### [facility] [address] [place], [place] [id number] [employer]: Valencia Palmer #### 7600, 6517 #### [facility] [place] [address] [employer]: Kody Manriquez MDCOMPREHENSIVE METABOLIC PANELon 07-18-2025 Albumin [Mass/Vol]3.8 g/dLNormal3.6-5.1Quest DiagnosticsComment on above: Performed By: #### 42134, 1759 #### [facility] [address] [place], [place] [id number] [employer]: Valencia Palmer #### 7600, 6517 #### [facility] [place] [address] [employer]: Kody Manriquez MDAlbumin/Globulin [Mass ratio]1.2 {ratio}Normal 1.0-2.5Quest DiagnosticsComment on above:Performed By: #### 19242, 1759 #### [facility]-[address] [employer]: Valencia Palmer #### 7600, 6517 #### [facility] [place] [address] [employer]: Kody Manriquez MDALP [Catalytic activity/Vol]68 U/KIbmzkc53-251 [facility] DiagnosticsComment on above:Performed By: #### 28705, 1759 #### [facility] [address] [place], [place] [id number] [employer]: Valencia Palmer #### 7600, 6517 #### [facility] [place] [address] [employer]: Kody Manriquez MDALT [Catalytic activity/Vol]11 U/LNormal6-29 [facility] DiagnosticsComment on above:Performed By: #### 01694, 1759 #### [facility] [address] [place] [address] [employer]: Valencia Palmer #### 7600, 6517 #### [facility] [address], [address] [place] [address] Supervisor [employer]: Kody Manriquez MDAST [Catalytic activity/Vol]15 U/MEblsdk48-79 [facility] DiagnosticsComment on above:Performed By: #### 64499, 1759 #### [facility] [address] [place] [address] [employer]: Valencia Palmer #### 7600, 6517 #### [facility] [address], [address] [place] [address] [employer]: Kody Manriquez MDBilirubin [Mass/Vol]0.3 mg/dLNormal0.2-1.2 [facility] DiagnosticsComment on above:Performed By: #### 15838, 1759 #### [facility] [address] [place] [address] [employer]visor [employer]: Valencia Palmer #### 7600, 6517 #### [facility] [address], [address] [place] [address] [employer]: Kody Manriquez MDCalcium [Mass/Vol]9.3 mg/dLNormal8.6-10.4Quest DiagnosticsComment on above:Performed By: #### 48462, 1759 #### [facility] [address] [place] [address] [employer]visor [employer]: Valencia Palmer #### 7600, 6517 #### [facility] [address], [address] [place] [address] Supervisor [employer]: Kody Manriquez MDChloride [Moles/Vol]103 mmol/TOshehw48-890 Quest DiagnosticsComment on above:Performed By: #### 00452, 1759 #### [facility] [address] [place] [address] Supervisor [employer]: Valencia Palmer #### 7600, 6517 #### [facility] [address] , [address] [place] [address] Supervisor [employer]: Kody SYO2 [Moles/Vol]16 mmol/YZpu33-67Rfwep DiagnosticsComment on above:Performed By: #### 40545, 1759 #### [facility] [address] [place] [address] Supervisor [employer]: Valencia Palmer #### 7600, 6517 #### [facility] [place] [address], [address] [place] [address] Supervisor [employer]: Kody SYreatinine [Mass/Vol]7.02 mg/dLHigh0.50-1.03 Quest DiagnosticsComment on above:Performed By: #### 27988, 175 #### [facility] [address] Supervisor [employer]: Valencia Palmer #### 7600, 6517 #### [facility] [place] [address] , [address] [place] [address] Supervisor [employer]: Kody Manriquez MDGFR/1.73 sq M.predicted among non-blacks MDRD (S/P/Bld) [Vol rate/Area]6 mL/min/{1.73_m2}Low> OR = 60Quest DiagnosticsComment on above:Performed By: #### 60622, 1759 #### [facility] [address] [place], [place] [address] Supervisor [employer]: Valencia Palmer #### 7600, 6517 #### [facility] [place] [address] , [address] [place], [place] [phone] Supervisor [employer]: Kody Manriquez MDGlobulin (S) [Mass/Vol]3.2 g/dLNormal1.9-3.7 Quest DiagnosticsComment on above:Performed By: #### 19681, 1759 #### [facility] [address] [place] [address] Supervisor [employer]: Valencia Palmer #### 7600, 6517 #### [facility] [address], [address] [place] [address] Supervisor [employer]: Kody Manriquez MDGlucose [Mass/Vol]119 mg/rBSipn02-86Ycvpm DiagnosticsComment on above:Result Comment: Fasting reference interval For someone without known diabetes, a glucose value between 100 and 125 mg/dL is consistent with prediabetes and should be confirmed with a follow-up test.Performed By: #### 53453, 1759 #### [facility] [address] [place], [place] [phone] Supervisor [employer]: Valencia Palmer #### 7600, 6517 #### [facility] [address], [address] [place] [address] Supervisor [employer]: Kody Manriquez MDPotassium [Moles/Vol]5.4 mmol/LHigh3.5-5.3 Quest DiagnosticsComment on above:Performed By: #### 49915, 1759 #### [facility] [address] [place], [place] [address] Supervisor [employer]: Valencia Palmer #### 7600, 6517 #### [facility] [address], [address] [place] [address] Supervisor [employer]: Kody Manriquez MDProtein [Mass/Vol]7.0 g/dLNormal6.1-8.1Quest DiagnosticsComment on above:Performed By: #### 48156, 1759 #### [facility] [address] [place] [address] Supervisor [employer]: Valencia Palmer #### 7600, 6517 #### [facility] [address], [address] [place] [address] Supervisor [employer]: Kody Manriquez MDSodium [Moles/Vol]138 mmol/LGkqrgd198-148Crcob DiagnosticsComment on above:Performed By: #### 09868, 1759 #### [facility] [address] [place], [place] [address] Supervisor [employer]: Valencia Palmer #### 7600, 6517 #### [facility] [address], [address] [place] [address] Supervisor [employer]: Kody Dockery nitrogen [Mass/Vol]68 mg/dLHigh7-25Quest DiagnosticsComment on above:Performed By: #### 56903, 1759 #### [facility] [address] [place] [address] Supervisor [employer]: Valencia Palmer #### 7600, 6517 #### [facility] [address], [address] [place] [address] Supervisor [employer]: Kody Dockery nitrogen/Creatinine [Mass ratio]10 mg/mg Normal6-22Quest DiagnosticsComment on above:Performed By: #### 07583, 1759 #### [facility] [address] [place] [address] Supervisor [employer]: Valencia Palmer #### 7600, 6517 #### [facility] [address], [address] [place] [address] Supervisor [employer]: Kody Manriquez MDLIPID PANEL, [facility] 80-04-1294Cmpqyqburkl [Mass/Vol]204 mg/dLHigh<200Quest DiagnosticsComment on above:Order Comment: FASTING:YES FASTING: YESPerformed By: #### 26941, 1759 #### [facility] [address] [place], [place] [address] Supervisor [employer]: Valencia Palmer #### 7600, 6517 #### [facility] [address], [address] [place] [address] Supervisor [employer]: Kody Manriquez MDCholesterol in HDL [Mass/Vol]45 mg/dLLow> OR = 50Quest DiagnosticsComment on above:Order Comment: FASTING:YES FASTING: YESPerformed By: #### 49668, 1759 #### [facility] [address] [place], [place] [address] Supervisor [employer]: Valencia Palmer #### 7600, 6517 #### [facility] [address], [address] [place] [address] Supervisor [employer]: Kody SYholesterol in LDL [Mass/Vol]130 mg/dLHigh Quest DiagnosticsComment on above:Order Comment: FASTING:YES FASTING: YESResult Comment: Reference range: <100 Desirable range <100 mg/dL for primary prevention; <70 mg/dL for patients with CHD or diabetic patients with > or = 2 CHD risk factors. LDL-C is now calculated using the Dann calculation, which is a validated novel method providing better accuracy than the Friedewald equation in the estimation of LDL-C. Silvio SS et al. LILIA. 2013;310(19): 7083-8518 (http://education.3dim/faq/LRC539)Performed By: #### 10476, 1759 #### [facility] [address] [place] [address] Supervisor [employer]: Valencia Palmer #### 7600, 6517 #### [facility] [address], [address] [place] [address] Supervisor [employer]: Kody SYholestmichi.total/Cholesterol in HDL [Mass ratio]4.5 {ratio}Normal<5.0Quest DiagnosticsComment on above:Order Comment: FASTING:YES FASTING: YESPerformed By: #### 37459, 1759 #### [facility] [address] [place] [address] Supervisor [employer]: Valencia Palmer #### 7600, 6517 #### [facility] [address], [address] [place] [address] Supervisor [employer]: Kody YU HDL OSJHAMSXMWK835 mg/dL (calc)High<130 Quest DiagnosticsComment on above:Order Comment: FASTING:YES FASTING: YESResult Comment: For patients with diabetes plus 1 major ASCVD risk factor, treating to a non-HDL-C goal of <100 mg/dL (LDL-C of <70 mg/dL) is considered a therapeutic option.Performed By: #### 22429, 1759 #### [facility] [address] [place] [address] Supervisor [employer]: Valencia Palmer #### 7600, 6517 #### [facility] [address], [address] [place] [address] Supervisor [employer]: Kody Manriquez MDTriglyceride [Mass/Vol]170 mg/dLHigh<150Quest DiagnosticsComment on above:Order Comment: FASTING:YES FASTING: YESPerformed By: #### 93283, 1759 #### [facility] [address] [place] [address] Supervisor [employer]: Valencia Palmer #### 7600, 6517 #### [facility] [address], [address] [place] [address] Supervisor [employer]: Kody Manriquez MDLaboratory - Hematology and Cell countson 57-14-8934UsW2o (Bld) [Mass fraction]4.9 %NOMS HealthcareNo Panel Informationon 48-73-1288XNTO VqprlnlpnqT4D with Estimated Average Gluon 80-07-0918Mxvihau [Mass/Vol]105 mg/dLNormJay Hospital Physician GroupComment on above:Result Comment: PERFORMED BY:[place] [address] [address] [place], [place] [phone] MEDICAL DIRECTORLANDRY LEE M.D.Performed By: #### A1C WTH eA ####[place] [address] [place], [place] [address]TLKEjU4h (Bld) [Mass fraction]5.3 %Normal4.3-5.6The [facility] Physician GroupComment on above:Result Comment: Increased risk for diabetes: 5.7 - 6.4 diabetes: >6.4 glycemic control for adults with diabetes: <7.0Performed By: #### A1C WT eA ####[place] [address] [place] [address] USAComprehensive Metabolic Panelon 35-78-0478Nveggtx [Mass/Vol]3.1 g/dLLow 3.5-5.7The [facility] Physician GroupComment on above:Performed By: #### MG, CMP ####[place] [address] [place] Albumin/Globulin [Mass ratio]0.9 {ratio}NormalThe [facility] Comment on above:Performed By: #### MG, CMP ####[place] [address] USAALP [Catalytic activity/Vol]71 U/L Utuwaf10-508Vgn [facility] Physician GroupComment on above:Performed By: #### MG, CMP ####[place] [address] USAALT [Catalytic activity/Vol]7 U/LNormal7-52The [facility] Physician GroupComment on above:Performed By: #### MG, CMP ####[place] [address] USAAnion gap [Moles/Vol]14.4 mmol/LNormal6.0-15.0The [facility] Physician GroupComment on above:Performed By: #### MG, CMP ####[place] [address] USAAST [Catalytic activity/Vol]12 U/SCns95-08Axg [facility] Physician GroupComment on above:Performed By: #### MG, CMP ####[place] [address] USABilirubin [Mass/Vol]0.4 mg/dLNormal0.3-1.0The [facility] Physician GroupComment on above:Performed By: #### MG, CMP ####[place] [address] USACalcium [Mass/Vol]8.8 mg/dLNormal8.6-10.3The [facility] Physician GroupComment on above: Performed By: #### MG, CMP ####[place] [address] USAChloride [Moles/Vol]98 mmol/LXcydsi66-066Tcs [facility] Physician GroupComment on above:Performed By: #### MG, CMP ####[place] [address] USACO2 [Moles/Vol]25.4 mmol/YLuimwc41.0-31.0The [facility] Physician GroupComment on above:Performed By: #### MG, CMP ####[place] [address] USACreatinine [Mass/Vol]3.77 mg/dLHigh0.60-1.20The [facility] Physician GroupComment on above:Performed By: #### MG, CMP ####[place] [address] [place] Creatinine Clr Calc Zlikspul76.15NormalThe [facility] Physician GroupComment on above:Performed By: #### MG, CMP ####[place] [address] USAGFR/1.73 sq M.predicted MDRD (S/P/Bld) [Vol rate/Area]13.618 mL/min/{1.73_m2}NormalThe [facility] Physician GroupComment on above:Performed By: #### MG, CMP ####[place] [address] USAGlobulin (S) [Mass/Vol]3.3 g/dLNormalThSt. [facility] Physician [facility] HospitalComment on above:Performed By: #### MG, CMP ####[place] [address] USAGlucose [Mass/Vol]112 mg/dZEsky98-998Bwv [facility] Physician GroupComment on above:Result Comment: Random Glucose Reference Range is dependent on time and content of last meal. Glucose of more than 200 mg/dL in a nonstressed, ambulatory subject supports the diagnosis of Diabetes Mellitus. ADA recommended reference rangePerformed By: #### MG, CMP ####[place] [address] USAPotassium [Moles/Vol]4.8 mmol/LNormal3.5-5.1The [facility] Physician GroupComment on above:Performed By: #### MG, CMP ####[address] [address] USAProtein [Mass/Vol]6.4 g/dLNormal 6.4-8.9The [facility] Physician GroupComment on above:Performed By: #### MG, CMP ####[address] [address] USASodium [Moles/Vol]133 mmol/NZvp776-430Pcm [facility] Physician GroupComment on above: Performed By: #### MG, CMP ####[address] [address] USAUrea nitrogen [Mass/Vol]43 mg/dLHigh7-25The [facility] Physician GroupComment on above:Performed By: #### MG, CMP ####[address] [address] USADiff and CBCon 95-14-1363Jvkecxvxbmzu Ql (Bld)ModerateNormalThe [facility] Physician GroupComment on above:Performed By: #### DIFF CBC ####[address] [address] USABasophils/100 WBC (Bld)1 %Normal0-2 The [facility] Physician GroupComment on above:Performed By: #### DIFF CBC ####[address] [address] [place] Eosinophils/100 WBC (Bld)4 %High1-3The [facility] Physician GroupComment on above:Performed By: #### DIFF CBC ####[address] [address] USAErythrocyte distribution width (RBC) [Ratio]26.7 % High11.9-15.3The [facility] Physician GroupComment on above:Performed By: #### DIFF CBC ####[address] [address] USAHematocrit (Bld) [Volume fraction]29.2 %Low34.0-46.4The [facility] Physician GroupComment on above:Performed By: #### DIFF CBC ####[place] [address] USAHemoglobin (Bld) [Mass/Vol]9.2 g/dLLow 11.8-15.4The [facility] Physician GroupComment on above:Performed By: #### DIFF CBC ####[place] [address] [place] HypochromasiaSlightNoNovant Health Ballantyne Medical Center Physician GroupComment on above:Performed By: #### DIFF CBC ####[place] [address] USALymphocytes/100 WBC (Bld)22 %Ebmtwe54-40Lzc [facility] Physician GroupComment on above:Performed By: #### DIFF CBC ####[place] [address] USAMCH (RBC) [Entitic mass]24.0 pgLow 24.7-34.3The [facility] Physician GroupComment on above:Performed By: #### DIFF CBC ####[place] [address] USAMCV (RBC) [Entitic vol]75.8 oHPfm40-534Eub [facility] Physician GroupComment on above:Performed By: #### DIFF CBC ####[place] [address] USAMean Corpuscular HGB Conc31.7 g/dLLow32.0-35.0The [facility] Physician GroupComment on above:Performed By: #### DIFF CBC ####[place] [address] [place] Metamyelocytes1 %High0-0The [facility] Physician GroupComment on above:Performed By: #### DIFF CBC ####[place] [address] USAMicrocytosisModerateNoNovant Health Ballant[facility] Center Physician GroupComment on above:Performed By: #### DIFF CBC ####[place] [address] USAMonocytes/100 WBC (Bld)2 %Normal2-11The [facility] Physician GroupComment on above:Performed By: #### DIFF CBC ####[address] [address] USAPlatelet Estimate NormalNormalNormJay Hospital Physician GroupComment on above:Performed By: #### DIFF CBC ####[address] [address] USAPlatelet mean volume (Bld) [Entitic vol]8.0 fLNormal6.3-10.7The [facility] Physician GroupComment on above:Performed By: #### DIFF CBC ####[address] [address] [place] Platelet MorphologyNormalNormalNormJay Hospital Physician GroupComment on above:Result Comment: PERFORMED BY:[address] [place], [place] [phone] MEDICAL DIRECTORLANDRY LEE M.D.Performed By: #### DIFF CBC ####[address] [address] USAPlatelets (Bld) [#/Vol]201 10*3/sLYikknc396-058Nfk [facility] Physician GroupComment on above:Performed By: #### DIFF CBC ####[address] [address] [place] PolychromasiaSlightNormJay Hospital Physician GroupComment on above:Performed By: #### DIFF CBC ####[address] [address] USAPromyelocytes1 %High0-0The [facility] Physician GroupComment on above:Performed By: #### DIFF CBC ####[address] [address] USARBC (Bld) [#/Vol]3.85 10*6/uLNormal3.60-5.00The [facility] Physician GroupComment on above:Performed By: #### DIFF CBC ####[address] [address] [place] Segmented neutrophils/100 WBC (Bld)70 %Jifmyw91-62Sqz [facility] Comment on above:Performed By: #### DIFF CBC ####[place] [address] USAWBC (Bld) [#/Vol]9.7 10*3/uLNormal 3.8-11.6The [facility] Physician [facility] HospitalComment on above:Performed By: #### DIFF CBC ####[place] [address] [place] White Blood Count9.7 [CFU]/mLNormal3.8-11.6The [facility] Physician GroupComment on above:Performed By: #### DIFF CBC ####[place] [address] USAGlucose Poct Glucometerson 97-15-8272Hsauvkm [Mass/Vol]113 mg/dLNormalThe [facility] Physician [facility] HospitalComment on above:Result Comment: Random Glucose Reference Range is dependent on time and content of last meal. Glucose of more than 200 mg/dL in a nonstressed, ambulatory subject supports the diagnosis of Diabetes Mellitus.PERFORMED BY:[address] [place], [place] [phone] MEDICAL TONYA LEE M.D.Performed By: #### GLULS ####Point of Care testing, Magnesiumon 93-25-9915Fkjkguuaq [Mass/Vol]1.8 mg/dLLow1.9-2.7The [facility] Physician GroupComment on above:Result Comment: PERFORMED BY:[address] [place]ie[place], [place] [phone] MEDICAL TONYA LEE M.D.Performed By: #### MG, CMP ####[place] [address] USAComprehensive Metabolic Panel on 96-74-4739Etslpzo [Mass/Vol]3.4 g/dLLow3.5-5.7ThSt. [facility] Physician [facility] Comment on above:Order Comment: PT IN DIALYSIS, RN TO CALL WHEN SHE GETS BACK AROUND 1830,KAHPerformed By: #### CMP, SCAN CBC ####[place] [address] [place] [address] USAAlbumin/Globulin [Mass ratio]1.0 {ratio}NormalThe [facility] Physician GroupComment on above:Order Comment: PT IN DIALYSIS, RN TO CALL WHEN SHE GETS BACK AROUND 1830,KAHPerformed By: #### CMP, SCAN CBC ####[place] [address] [place] [address] USAALP [Catalytic activity/Vol]75 U/VZjztfk29-239Lum [facility] Comment on above:Order Comment: PT IN DIALYSIS, RN TO CALL WHEN SHE GETS BACK AROUND 183,KAHPerformed By: #### CMP, SCAN CBC ####[address] [address] USAALT [Catalytic activity/Vol]5 U/LLow 7-52The [facility] Physician GroupComment on above:Order Comment: PT IN DIALYSIS, RN TO CALL WHEN SHE GETS BACK AROUND 1829,KAHPerformed By: #### CMP, SCAN CBC ####[address] [address] USAAnion gap [Moles/Vol]13.6 mmol/LNormal6.0-15.0The [facility] Physician GroupComment on above:Order Comment: PT IN DIALYSIS, RN TO CALL WHEN SHE GETS BACK AROUND 183,KAHPerformed By: #### CMP, SCAN CBC ####[address] [address] USAAST [Catalytic activity/Vol]17 U/JBqcsdw47-83 The [facility] Physician GroupComment on above:Order Comment: PT IN DIALYSIS, RN TO CALL WHEN SHE GETS BACK AROUND 1830,KAHPerformed By: #### CMP, SCAN CBC ####[facility] [address] [place] [address] [place] Bilirubin [Mass/Vol]0.4 mg/dLNormal0.3-1.0The [facility] Physician GroupComment on above:Order Comment: PT IN DIALYSIS, RN TO CALL WHEN SHE GETS BACK AROUND 1830,KAHPerformed By: #### CMP, SCAN CBC ####[facility] [address] [address] USACalcium [Mass/Vol]8.7 mg/dLNormal8.6-10.3The [facility] Physician GroupComment on above:Order Comment: PT IN DIALYSIS, RN TO CALL WHEN SHE GETS BACK AROUND 1829,KAHPerformed By: #### CMP, SCAN CBC ####[address] [address] [place] Chloride [Moles/Vol]100 mmol/GBcggnk78-292Uwu [facility] Physician GroupComment on above:Order Comment: PT IN DIALYSIS, RN TO CALL WHEN SHE GETS BACK AROUND 1829,KAHPerformed By: #### CMP, SCAN CBC ####[address] [address] USACO2 [Moles/Vol]24.1 mmol/FCcauoi48.0-31.0The [facility] Physician GroupComment on above:Order Comment: PT IN DIALYSIS, RN TO CALL WHEN SHE GETS BACK AROUND 1829,KAHPerformed By: #### CMP, SCAN CBC ####[address] [address] [place] Creatinine [Mass/Vol]2.68 mg/dLHigh0.60-1.20The [facility] Physician GroupComment on above:Order Comment: PT IN DIALYSIS, RN TO CALL WHEN SHE GETS BACK AROUND 1829,KAHPerformed By: #### CMP, SCAN CBC ####[address] [address] USACreatinine Clr Calc Upxhzfth04.31NormalThe [facility] Physician GroupComment on above:Order Comment: PT IN DIALYSIS, RN TO CALL WHEN SHE GETS BACK AROUND 1829,KAHResult Comment: PERFORMED BY:[address] [place], [place] [phone] MEDICAL DIRECTORLANDRY LEE M.D.Performed By: #### CMP, SCAN CBC ####[address] [address] [place] GFR/1.73 sq M.predicted MDRD (S/P/Bld) [Vol rate/Area]20.510 mL/min/{1.73_m2} NormalThe [facility] Physician GroupComment on above:Order Comment: PT IN DIALYSIS, RN TO CALL WHEN SHE GETS BACK AROUND 1829,KAHPerformed By: #### CMP, SCAN CBC ####[place] [address] [place] [address] USAGlobulin (S) [Mass/Vol]3.4 g/dLNormalThe [facility] Physician GroupComment on above:Order Comment: PT IN DIALYSIS, RN TO CALL WHEN SHE GETS BACK AROUND 1829,KAHPerformed By: #### CMP, SCAN CBC ####[place] [address] [place] [address] USAGlucose [Mass/Vol]135 mg/zUNyhm63-240Xfr [facility] Physician GroupComment on above:Order Comment: PT IN DIALYSIS, RN TO CALL WHEN SHE GETS BACK AROUND 1829,KAHResult Comment: Random Glucose Reference Range is dependent on time and content of last meal. Glucose of more than 200 mg/dL in a nonstressed, ambulatory subject supports the diagnosis of Diabetes Mellitus. ADA recommended reference rangePerformed By: #### CMP, SCAN CBC ####[place] [address] [place] [address] [place] Potassium [Moles/Vol]4.7 mmol/LAbnormal3.5-5.1The [facility] Comment on above:Order Comment: PT IN DIALYSIS, RN TO CALL WHEN SHE GETS BACK AROUND 1829,KAHResult Comment: interfere with the result.Contact lab if redraw is requiredPerformed By: #### CMP, SCAN CBC ####[place] [address] [place] [address] USAProtein [Mass/Vol]6.8 g/dLNormal 6.4-8.9The [facility] Physician GroupComment on above:Order Comment: PT IN DIALYSIS, RN TO CALL WHEN SHE GETS BACK AROUND 1829,KAHPerformed By: #### CMP, SCAN CBC ####[facility] [place] [address] USASodium [Moles/Vol]133 mmol/PMef585-143Yaz [facility] Physician GroupComment on above:Order Comment: PT IN DIALYSIS, RN TO CALL WHEN SHE GETS BACK AROUND 1829,KAHPerformed By: #### CMP, SCAN CBC ####[place] [address] [place] [address] USAUrea nitrogen [Mass/Vol]33 mg/dLHigh7-25ThSt. [facility] Physician GroupComment on above:Order Comment: PT IN DIALYSIS, RN TO CALL WHEN SHE GETS BACK AROUND 1830,KAHPerformed By: #### CMP, SCAN CBC ####[facility] [place] [address] USAGlucose Poct Glucometerson 28-53-3199Yrkvgye [Mass/Vol]173 mg/dLNoNovant Health Ballantyne [facility] Center Physician GroupComment on above:Result Comment: Random Glucose Reference Range is dependent on time and content of last meal. Glucose of more than 200 mg/dL in a nonstressed, ambulatory subject supports the diagnosis of Diabetes Radha litus.PERFORMED BY:[place] [address] [place], [place] [phone] MEDICAL TONYA LEE M.D.Performed By: #### GLULS ####Point of Care testing,Mjcyyqr0Syv7: Cleaned MeterNoNovant Health Ballantyne Medical Center Physician GroupComment on above:Result Comment: PERFORMED BY:[place] [address] [place] [place], [place] [phone] MEDICAL TONYA LEE M.D.Performed By: #### GLULS ####Point of Care testing,Glucose [Mass/Vol]117 mg/dLOrlando Health Winnie Palmer Hospital for Women & Babies Physician GroupComment on above:Result Comment: Random Glucose Reference Range is dependent on time and content of last meal. Glucose of more than 200 mg/dL in a nonstressed, ambulatory subject supports the diagnosis of Diabetes Mellitus.Performed By: #### GLULS ####Point of Care testing,Hemoglobin and Hematocriton 06-15-2025 Hematocrit (Bld) [Volume fraction]32.3 %Low34.0-46.4The [facility] Physician GroupComment on above:Result Comment: PERFORMED BY:[place] [address] [place] [place], [place] [phone] MEDICAL TONYA LEE M.D.Performed By: #### K, HH ####[address] [address] USAHemoglobin (Bld) [Mass/Vol] 10.1 g/dLLow11.8-15.4The [facility] Physician GroupComment on above:Performed By: #### K, HH ####[address] [address] USAPotassiumon 51-83-5554Ufggzvjmk [Moles/Vol]6.2 mmol/LOff scale high 3.5-5.1The [facility] Physician GroupComment on above:Result Comment: Critical Result Called to and read back by: ASHISH WILEY at: 06/15/2025 12:32:53 by:Arslan DIASERFORMED BY:[address] [place], [place] [phone] MEDICAL DIRECTORLANDRY LEE M.D.Performed By: #### K, ####[address] [address] USAScan and CBCon [id number] Ql (Bld)MarkedNormalThe [facility] Physician GroupComment on above:Order Comment: PT IN DIALYSIS, RN TO CALL WHEN SHE GETS BACK AROUND 1830,KAHPerformed By: #### CMP, SCAN CBC ####[address] [address] USABasophils (Bld) [#/Vol]0.2 10*3/uLNormal0.0-0.2The [facility] Physician GroupComment on above: Order Comment: PT IN DIALYSIS, RN TO CALL WHEN SHE GETS BACK AROUND 1830,KAH Performed By: #### CMP, SCAN CBC ####[address] [address] USABasophils/100 WBC (Bld)1.4 %Normal.The [facility] Physician GroupComment on above:Order Comment: PT IN DIALYSIS, RN TO CALL WHEN SHE GETS BACK AROUND 1830,KAHPerformed By: #### CMP, SCAN CBC ####[place] [address] USAEosinophils (Bld) [#/Vol]0.5 10*3/uLHigh0.0-0.45The [facility] Physician GroupComment on above: Order Comment: PT IN DIALYSIS, RN TO CALL WHEN SHE GETS BACK AROUND 183,KAH Performed By: #### CMP, SCAN CBC ####[place] [id number] USAEosinophils/100 WBC (Bld)3.1 %Normal.The [facility] Physician GroupComment on above:Order Comment: PT IN DIALYSIS, RN TO CALL WHEN SHE GETS BACK AROUND 1829,KAHPerformed By: #### CMP, SCAN CBC ####[place] [id number] USAErythrocyte distribution width (RBC) [Ratio]25.6 %High11.9-15.3The [facility] Comment on above:Order Comment: PT IN DIALYSIS, RN TO CALL WHEN SHE GETS BACK AROUND 1829,KAHPerformed By: #### CMP, SCAN CBC ####[place] [id number] USAHematocrit (Bld) [Volume fraction]31.2 %Low34.0-46.4The [facility] Physician GroupComment on above:Order Comment: PT IN DIALYSIS, RN TO CALL WHEN SHE GETS BACK AROUND 183,KAHPerformed By: #### CMP, SCAN CBC ####[place] [id number] USAHemoglobin (Bld) [Mass/Vol]9.6 g/dLLow11.8-15.4[facility] Comment on above:Order Comment: PT IN DIALYSIS, RN TO CALL WHEN SHE GETS BACK AROUND 183,KAHPerformed By: #### CMP, SCAN CBC ####[address] [address] USAHypochromasiaModerateNormalThe [facility] Physician GroupComment on above:Order Comment: PT IN DIALYSIS, RN TO CALL WHEN SHE GETS BACK AROUND 1829,KAHPerformed By: #### CMP, SCAN CBC ####[address] [place] [address] [facility] Lymphocytes (Bld) [#/Vol]1.8 10*3/uLNormal1.00-4.8[facility] Comment on above:Order Comment: PT IN DIALYSIS, RN TO CALL WHEN SHE GETS BACK AROUND 1830,KAHPerformed By: #### CMP, SCAN CBC ####[address] [address] USALymphocytes/100 WBC (Bld)10.1 %Normal. The [facility] Physician GroupComment on above:Order Comment: PT IN DIALYSIS, RN TO CALL WHEN SHE GETS BACK AROUND 1830,KAHPerformed By: #### CMP, SCAN CBC ####[address] [address] [facility] ([facility]) [Entitic mass]23.7 pgLow24.7-34.3The [facility] Physician GroupComment on above:Order Comment: PT IN DIALYSIS, RN TO CALL WHEN SHE GETS BACK AROUND 1830,KAHPerformed By: #### CMP, SCAN CBC ####[address] [address] [facility] (RBC) [Entitic vol]77.0 hMJgo12-827Czj [facility] Physician GroupComment on above:Order Comment: PT IN DIALYSIS, RN TO CALL WHEN SHE GETS BACK AROUND 1830,KAHPerformed By: #### CMP, SCAN CBC ####[address] [address] USAMean Corpuscular HGB Conc30.8 g/dLLow32.0-35.0The [facility] Physician GroupComment on above:Order Comment: PT IN DIALYSIS, RN TO CALL WHEN SHE GETS BACK AROUND 1830,KAHPerformed By: #### CMP, SCAN CBC ####[address] [address] USAMicrocytosisModerateNormalThe [facility] Physician GroupComment on above:Order Comment: PT IN DIALYSIS, RN TO CALL WHEN SHE GETS BACK AROUND 1830,KAHPerformed By: #### CMP, SCAN CBC ####[address] [place] [address] USAMonocytes (Bld) [#/Vol]1.2 10*3/uLHigh0.0-0.8The [facility] Physician GroupComment on above:Order Comment: PT IN DIALYSIS, RN TO CALL WHEN SHE GETS BACK AROUND 1830,KAHPerformed By: #### CMP, SCAN CBC ####[address] [address] USAMonocytes/100 WBC (Bld)6.8 %Normal.The [facility] Physician GroupComment on above:Order Comment: PT IN DIALYSIS, RN TO CALL WHEN SHE GETS BACK AROUND 1830,KAHPerformed By: #### CMP, SCAN CBC ####[address] [address] USANeutrophils (Bld) [#/Vol]13.6 10*3/uLHigh1.8-7.7The [facility] Physician GroupComment on above: Order Comment: PT IN DIALYSIS, RN TO CALL WHEN SHE GETS BACK AROUND 183,KAH Performed By: #### CMP, SCAN CBC ####[address] [address] USANeutrophils/100 WBC (Bld)78.6 %Normal.The [facility] Physician GroupComment on above:Order Comment: PT IN DIALYSIS, RN TO CALL WHEN SHE GETS BACK AROUND 1830,KAHPerformed By: #### CMP, SCAN CBC ####[address] [address] USANRBC%0.0 /100{WBC} Normal0-0.5The [facility] Physician GroupComment on above:Order Comment: PT IN DIALYSIS, RN TO CALL WHEN SHE GETS BACK AROUND 1830,KAHPerformed By: #### CMP, SCAN CBC ####[address] [address] USAPlatelet EstimateNormalNormalNormalThe [facility] Physician GroupComment on above:Order Comment: PT IN DIALYSIS, RN TO CALL WHEN SHE GETS BACK AROUND 1830,KAHPerformed By: #### CMP, SCAN CBC ####[address] [address] USAPlatelet mean volume (Bld) [Entitic vol]8.4 fL Normal6.3-10.7The [facility] Physician GroupComment on above:Order Comment: PT IN DIALYSIS, RN TO CALL WHEN SHE GETS BACK AROUND 1830,KAHPerformed By: #### CMP, SCAN CBC ####[address] [address] USAPlatelet MorphologyNormalNormalNormJay Hospital Physician GroupComment on above:Order Comment: PT IN DIALYSIS, RN TO CALL WHEN SHE GETS BACK AROUND 1830,KAHResult Comment: PERFORMED BY:[address] [place]CassieAM[place], [place] [phone] MEDICAL DIRECTORLANDRY LEE M.D.Performed By: #### CMP, SCAN CBC ####[address] [address] USAPlatelets (Bld) [#/Vol]194 10*3/uLNormal 150-450The [facility] Physician GroupComment on above:Order Comment: PT IN DIALYSIS, RN TO CALL WHEN SHE GETS BACK AROUND 1830,KAHPerformed By: #### CMP, SCAN CBC ####[address] [address] USAPoikilocytosisSFirstHealth Moore Regional Hospital Physician GroupComment on above:Order Comment: PT IN DIALYSIS, RN TO CALL WHEN SHE GETS BACK AROUND 1830,KAHPerformed By: #### CMP, SCAN CBC ####[place] [id number] USAPolychromasiaSFirstHealth Moore Regional Hospital Physician GroupComment on above:Order Comment: PT IN DIALYSIS, RN TO CALL WHEN SHE GETS BACK AROUND 1830,KAHPerformed By: #### CMP, SCAN CBC ####[address] [address] USARBC (Bld) [#/Vol]4.05 10*6/uL Normal3.60-5.00The [facility] Physician GroupComment on above:Order Comment: PT IN DIALYSIS, RN TO CALL WHEN SHE GETS BACK AROUND 1830,KAHPerformed By: #### CMP, SCAN CBC ####[address] [address] USAStomatocytesSlightOrlando Health Winnie Palmer Hospital for [facility] & Babies Physician GroupComment on above: Order Comment: PT IN DIALYSIS, RN TO CALL WHEN SHE GETS BACK AROUND 183,KAH Performed By: #### CMP, SCAN CBC ####[address] [address] USAWBC (Bld) [#/Vol]17.4 10*3/uLHigh3.8-11.6ThSt. Luke's Elmore [facility] Center Physician GroupComment on above:Order Comment: PT IN DIALYSIS, RN TO CALL WHEN SHE GETS BACK AROUND 1829,KAHPerformed By: #### CMP, SCAN CBC ####[address] [address] USAWhite Blood Count17.4 [CFU]/mLHigh3.8-11.6ThSt. Luke's El[facility] Center Physician GroupComment on above:Order Comment: PT IN DIALYSIS, RN TO CALL WHEN SHE GETS BACK AROUND 1829,KAHPerformed By: #### CMP, SCAN CBC ####[address] [address] USABasic Metabolic Panelon 08-15-3432Bbxjydvjux Clr Calc Fgdypjwv09.45NoNovant Health Ballantyne Medical Center Physician GroupComment on above:Result Comment: PERFORMED BY:[address] [place], [place] [phone] MEDICAL TONYA LEE M.D.Performed By: #### BMP ####[address] [address] USAGFR/1.73 sq M.predicted MDRD (S/P/Bld) [Vol rate/Area]16.517 mL/min/{1.73_m2}NormalThe [facility] Hospital Physician GroupComment on above:Performed By: #### BMP ####[address] [address] USABasic metabolic 1998 panelon 20-54-1333Onsgp gap [Moles/Vol]13.1 mmol/L 6.0 - 15.0NOMS HealthcareCalcium [Mass/Vol]8.8 mg/dL8.6 - 10.3 mg/dLNOMS HealthcareChloride [Moles/Vol]98 mmol/L98 - 107 mmol/LNOMS HealthcareCO2 [Moles/Vol]28.4 mmol/L21.0 - 31.0 mmol/LNOMS HealthcareCreatinine (U) [Mass/Vol] 3.21 mg/dLHigh0.60 - 1.20 mg/dLNOMS HealthcareCREATININE CLR CALC TTBRFTTY96.45 NOMS HealthcareGFR/1.73 sq M.predicted MDRD (S/P/Bld) [Vol rate/Area]16.517 mL/min/{1.73_m2}NOMS HealthcareGlucose [Mass/Vol]111 mg/gFCxoq55 - 100 mg/dLNOMS HealthcareComment on above:Random Glucose Reference Range is dependent on time and content of last meal. Glucose of more than 200 mg/dL in a nonstressed, ambulatory subject supports the diagnosis of Diabetes Mellitus. ADA recommended reference range Interpretation and review of laboratory resultsAbnormalNOMS HealthcarePotassium [Moles/Vol]4.5 mmol/L3.5 - 5.1 mmol/LNOMS HealthcareSodium [Moles/Vol]135 mmol/L Hqq628 - 145 mmol/LNOMS HealthcareUrea nitrogen [Mass/Vol]45 mg/dLHigh7 - 25 mg/dLNOMS HealthcareBasophils [#/volume] in Blood by Automated countOrdered By: Jey Arizmendi on 14-85-6307Vbkavdckn (Bld) [#/Vol]0.1 10*3/uL0.0-0.2FProMedica Defiance Regional HospitalComment on above:Result Comment: PERFORMED BY:[facility] [place], [place] [phone] MEDICAL DIRECTORLANDRY LEE M.D.Performed By: #### CBC ####[facility] [place] [address] USABasophils/100 leukocytes in Blood by Automated countOrdered By: Jey Arizmnedi on 06-06-2025 Basophils/100 WBC (Bld)1.0 %.[facility] HospitalComment on above: Performed By: #### CBC ####[address] [address] USACalcium [Mass/volume] in Serum or PlasmaOrdered By: Juan Carlos Chavez on 14-46-3462Swpoerr [Mass/Vol]8.8 mg/dL8.6-10.3FProMedica Defiance Regional HospitalComment on above:Performed By: #### BMP ####[place] [id number] USACapillary blood glucose measurement by glucometer (mass/volume)Ordered By: Juan Carlos Chavez on 06-06-2025 Glucose [Mass/Vol]99 mg/dLMercy Health West HospitalComment on above: Random Glucose Reference Range is dependent on time and content of last meal. Glucose of more than 200 mg/dL in a nonstressed, ambulatory subject supports the diagnosis of Diabetes Mellitus.Result Comment: Random Glucose Reference Range is dependent on time and content of last meal. Glucose of more than 200 mg/dL in a nonstressed, ambulatory subject supports the diagnosis of Diabetes Mellitus. Performed By: #### GLULS ####Point of Care testing,Carbon dioxide, total [Moles/volume] in Serum or PlasmaOrdered By: Juan Carlos Chavez on 97-44-0136NZ7 [Moles/Vol]28.4 mmol/L21.0-31.0[facility] HospitalComment on above:Performed By: #### BMP ####[address] [address] USAChloride [Moles/volume] in Serum or PlasmaOrdered By: Juan Carlos Chavez on 11-55-0077Uneexcnc [Moles/Vol]98 mmol/S23-417YpkawieofMercy Health West HospitalComment on above:Performed By: #### BMP ####[address] [address] USAComplete Blood Count Auto Diffon 04-92-7182Eize Corpuscular HGB Conc30.2 g/dLLow32.0-35.0The [facility] Physician GroupComment on above:Performed By: #### CBC ####[address] [place] [address] USANRBC%0.1 /100{WBC} Normal0-0.5The [facility] Physician GroupComment on above:Performed By: #### CBC ####[place] [address] USAWhite Blood Count13.7 [CFU]/mLHigh3.8-11.6The [facility] Physician GroupComment on above:Performed By: #### CBC ####[place] [address] USACreatinine [Mass/volume] in Serum or PlasmaOrdered By: Juan Carlos Chavez on 39-70-5221Fwceryteyc [Mass/Vol]3.21 mg/dLHigh0.60-1.20 [facility] HospitalComment on above:Performed By: #### BMP ####[place] [address] [place] Eosinophils [#/volume] in Blood by Automated countOrdered By: Jey Arizmendi on 61-08-5644Uthpasqpzsb (Bld) [#/Vol]0.7 10*3/uLHigh0.0-0.45[facility] HospitalComment on above:Performed By: #### CBC ####[place] [address] USAEosinophils/100 leukocytes in Blood by Automated countOrdered By: Jey Arizmendi on 45-83-0253Usmtftantjl/100 WBC (Bld)4.8 %.[facility] HospitalComment on above:Performed By: #### CBC ####[place] [address] [place] Erythrocyte distribution width [Ratio] by Automated countOrdered By: Jey Arizmendi on 87-40-3564Ugscuwqusfo distribution width (RBC) [Ratio]22.3 %High11.9-15.3 [facility] HospitalComment on above:Performed By: #### CBC ####[place] [address] [place] Erythrocytes [#/volume] in Blood by Automated countOrdered By: Jey Arizmendi on 59-36-7491CDH (Bld) [#/Vol]3.78 10*6/uL3.60-5.00[facility] HospitalComment on above:Performed By: #### CBC ####[facility] [place] [address] USAGLUCOSE POCT GLUCOMETERSon 06-06-2025 OPSSDTX5Mol2: Cleaned MeterNOMS HealthcareGlucose [Mass/Vol]99 mg/dLNOKS HealthcareComment on above:Random Glucose Reference Range is dependent on time and content of last meal. Glucose of more than 200 mg/dL in a nonstressed, ambulatory subject supports the diagnosis of Diabetes Mellitus. Glucose Poct Glucometerson 37-68-7744Vluuvvc2Puj3: Cleaned MeterOrlando Health Winnie Palmer Hospital for Women & Babies Physician GroupComment on above:Result Comment: PERFORMED BY:[place] [address] [address]JohanaCassieAMIA[address] [place], [place] [phone] MEDICAL DIRECTORLANDRY LEE M.D.Performed By: #### GLULS ####Point of Care testing,Glucose [Mass/Vol]121 mg/dLNoNew Lifecare Hospitals of PGH - SuburbanComment on above:Random Glucose Reference Range is dependent on time and content of last meal. Glucose of more than 200 mg/dL in a nonstressed, ambulatory subject supports the diagnosis of Diabetes Mellitus. Result Comment: Random Glucose Reference Range is dependent on time and content of last meal. Glucose of more than 200 mg/dL in a nonstressed, ambulatory subject supports the diagnosis of Diabetes Mellitus.PERFORMED BY:[place] [address] [place], [place] [phone] MEDICAL TONYA LEE M.D.Performed By: #### GLULS ####Point of Care testing,Glucose [Mass/volume] in Serum or PlasmaOrdered By: Juan Carlos Chavez on 75-83-7549Efbphjp [Mass/Vol]111 mg/fKPzog54-834UmdfjmmqfMercy Health West Hospital Comment on above:ADA recommended reference rangeRandom Glucose Reference Range is dependent on time and content of last meal. Glucose of more than 200 mg/dL in a nonstressed, ambulatory subject supports the diagnosisof Diabetes Mellitus. Result Comment: Random Glucose Reference Range is dependent on time and content of last meal. Glucose of more than 200 mg/dL in a nonstressed, ambulatory subject supports the diagnosis of Diabetes Mellitus. ADA recommended reference rangePerformed By: #### BMP ####[address] [address] USAHematocrit [Volume Fraction] of Blood by Automated countOrdered By: Jey Arizmendi on 88-79-7831Giazbjxmol (Bld) [Volume fraction]27.6 %Low34.0-46.4FProMedica Defiance Regional HospitalComment on above:Performed By: #### CBC ####[address] [address] USAHemoglobin [Mass/volume] in BloodOrdered By: Jey Arizmendi on 06-06-2025 Hemoglobin (Bld) [Mass/Vol]8.3 g/dLLow11.8-15.4FProMedica Defiance Regional Hospital Comment on above:Performed By: #### CBC ####[address] [address] USALon 41-67-7200ODwdcpgCzt [facility] Physician GroupLeukocytes [#/volume] corrected for nucleated erythrocytes in Blood by Automated counOrdered By: Jey Arizmendi on 61-71-3374CFT corrected for nucl RBC Auto (Bld) [#/Vol]13.7 10*3/uLHigh3.8-11.6FProMedica Defiance Regional Hospital Leukocytes [#/volume] in Blood by Automated countOrdered By: Jey Arizmendi on 26-27-2031JRS (Bld) [#/Vol]13.7 10*3/uLHigh3.8-11.6FProMedica Defiance Regional HospitalComment on above:Performed By: #### CBC ####[address] [address] USALymphocytes [#/volume] in Blood by Automated countOrdered By: Jey Arizmendi on 25-60-1002Smvmlrlnnxv (Bld) [#/Vol]2.6 10*3/uL1.00-4.8Mer[facility] HospitalComment on above:Performed By: #### CBC ####[address] [address] USALymphocytes/100 leukocytes in Blood by Automated countOrdered By: Jey Arizmendi on 85-34-1699Yzieserlvfu/100 WBC (Bld)18.8 %.[facility] Comment on above:Performed By: #### CBC ####[place] [id number] [facility] [Entitic mass] by Automated countOrdered By: Jey Arizmendi on 95-64-8248QDR (RBC) [Entitic mass]22.1 pgLow24.7-34.3FProMedica Defiance Regional HospitalComment on above:Performed By: #### CBC ####[place] [address] [facility] Auto (RBC) [Mass/Vol]Ordered By: Jey Arizmendi on 14-87-4280KTCI (RBC) [Mass/Vol]30.2 g/dLLow 32.0-35.0Mer[facility] Health West HospitalMCV [Entitic volume] by Automated countOrdered By: Jey Arizmendi on 24-72-4851ICV (RBC) [Entitic vol]73.1 kBIhb73-561 [facility] HospitalComment on above:Performed By: #### CBC ####[place] [id number] [place] Monocytes [#/volume] in Blood by Automated countOrdered By: Jey Arizmendi on 83-68-6918Aarguzzyh (Bld) [#/Vol]1.3 10*3/uLHigh0.0-0.8[facility] HospitalComment on above:Performed By: #### CBC ####[place] [id number] USAMonocytes/100 leukocytes in Blood by Automated countOrdered By: Jey Arizmendi on 56-10-5411Naztymfia/100 WBC (Bld)9.4 %.[facility] HospitalComment on above:Performed By: #### CBC ####[address] [place] [address] [place] Neutrophils [#/volume] in Blood by Automated countOrdered By: Jey Arizmendi on 67-59-5681Zwpjynoguax (Bld) [#/Vol]9.0 10*3/uLHigh1.8-7.7FProMedica Defiance Regional HospitalComment on above:Performed By: #### CBC ####[place] [id number] USANeutrophils/100 leukocytes in Blood by Automated countOrdered By: Jey Arizmendi on 57-30-3828Wehhkimktmm/100 WBC (Bld)66.0 %.[facility] HospitalComment on above:Performed By: #### CBC ####[place] [id number] USANo Panel InformationOrdered By: Juan Carlos Chavez on 53-05-6354R[place]ohps Glucose Comment Glu2: cleaned [facility] MiamisburgEstimated GFR (CKD-EPI) 16.517 mL/MinMercy Health West HospitalPharmacy Creatinine Clearance (Chem18.45Mer[facility] West HospitalNo Panel Informationon 45-01-1453WSNT HealthcareNucleated erythrocytes [Presence] in Blood by Automated countOrdered By: Jey Arizmendi on 87-34-7985Rfuqbxxus RBC Auto Ql (Bld)0.1 /100{WBC}0-0.5 [facility] West HospitalPlatelet mean volume [Entitic volume] in Blood by Automated countOrdered By: Jey Arizmendi on 73-95-4060Nykqubwf mean volume (Bld) [Entitic vol]7.5 fL6.3-10.7FProMedica Defiance Regional HospitalComment on above: Performed By: #### CBC ####[place] [id number] USAPlatelets [#/volume] in Blood by Automated count Ordered By: Jey Arizmendi on 06-66-9292Yixttgwxm (Bld) [#/Vol]306 10*3/qM521-845 [facility] HospitalComment on above:Performed By: #### CBC ####[place] [id number] [place] Potassium [Moles/volume] in Serum or PlasmaOrdered By: Juan Carlos Chavez on 02-07-5793Uwuztexef [Moles/Vol]4.5 mmol/L3.5-5.1FProMedica Defiance Regional HospitalComment on above:Performed By: #### BMP ####[place] [address] [place] [address] USASerum or plasma anion gap determinationOrdered By: Juan Carlos Chavez on 35-28-3856Ryqzk gap [Moles/Vol]13.1 mmol/L6.0-15.0Mer[facility] HospitalComment on above:Performed By: #### BMP ####[place] [id number] USASodium [Moles/volume] in Serum or PlasmaOrdered By: Juan Carlos Chavez on 67-85-4328Xdhqqm [Moles/Vol]135 mmol/ALvn068-435HtibydhlhMercy Health West HospitalComment on above:Performed By: #### BMP ####[address] [address] USAUrea nitrogen [Mass/volume] in Serum or PlasmaOrdered By: Juan Carlos Chavez on 97-07-4898Hxej nitrogen [Mass/Vol]45 mg/dL High7-[facility] HospitalComment on above:Performed By: #### BMP ####[address] [address] [facility] PATHOLOGY REQUEST FOR LAB CORPon 82-05-4925HGEFSYSBN REQUEST FOR LAB Formerly Self Memorial HospitalComment on above:See report. Scanned copy available in EMR.FRESH SKIN- ABDOMENParkview Health Montpelier HospitalAlbumin [Mass/volume] in Serum or Plasma by Bromocresol green (BCG) dye binding methoOrdered By: Rodo Hopkins on 05-17-2025 Albumin BCG dye [Mass/Vol]2.5 g/dLLow3.5-5.7FProMedica Defiance Regional Hospital Anisocytosis [Presence] in Blood by Light microscopyOrdered By: Xavier Mello on 99-16-4920Stvtfguqvcvk Ql (Bld)ModerateNormalMercy Health West Hospital Comment on above:Order Comment: left tubes and labels with rn audie she will pass on to day shiftPerformed By: #### DIFF CBC ####[address] [address] USABasophils Auto (Bld) [#/Vol]Ordered By: Xavier Mello on 51-42-3078Lzrqigdtj (Bld) [#/Vol]N/[facility] NorthBasophils/100 WBC Auto (Bld)Ordered By: Xavier Mello on 05-17-2025 Basophils/100 WBC (Bld)N/[facility] NorthBasophils/100 leukocytes in Blood by Manual countOrdered By: Xavier Mello on 05-17-2025 Basophils/100 WBC (Bld)2 %Normal0-2FProMedica Defiance Regional HospitalComment on above:Order Comment: left tubes and labels with salty bronson she will pass on to day shiftPerformed By: #### DIFF CBC ####[address] [address] USACalcium [Mass/volume] in Serum or Plasma Ordered By: Rodo Hopkins on 82-43-3772Pjnlrxn [Mass/Vol]8.3 mg/dLLow8.6-10.3 [facility] HospitalComment on above:Order Comment: left tubes and labels with rn audie she will pass on to day shiftPerformed By: #### RENAL ####[address] [address] [facility] Capillary blood glucose measurement by glucometer (mass/volume)Ordered By: Aris Patel on 97-05-7881Pgretvu [Mass/Vol]129 mg/dLNoDayton VA Medical CenterComment on above:Random Glucose Reference Range is dependent on time and content of last meal. Glucose of more than 200 mg/dL in a nonstressed, ambulatory subject supports the diagnosis of Diabetes Mellitus.Result Comment: Random Glucose Reference Range is dependent on time and content of last meal. Glucose of more than 200 mg/dL in a nonstressed, ambulatory subject supports the diagnosis of Diabetes Mellitus.PERFORMED BY:[place] [address] [place], [place] [phone] MEDICAL DIRECTORLANDRY LEE M.D.Performed By: #### GLULS ####Point of Care testing, Carbon dioxide, total [Moles/volume] in Serum or PlasmaOrdered By: Rodo Hopkins on 15-17-3953GR4 [Moles/Vol]29.4 mmol/SCkezdp66.0-31.0[facility] HospitalComment on above:Order Comment: left tubes and labels with rn audie she will pass on to day shiftPerformed By: #### RENAL ####[address] [address] USAChloride [Moles/volume] in Serum or PlasmaOrdered By: Rodo Hopkins on 90-42-5184Sigovvln [Moles/Vol]94 mmol/OUnz53-959AqtgncjoiMercy Health West HospitalComment on above:Order Comment: left tubes and labels with rn audie she will pass on to day shiftPerformed By: #### RENAL ####[address] [address] USACreatinine [Mass/volume] in Serum or PlasmaOrdered By: Rodo Hopkins on 88-93-2345Pafsuwqzyu [Mass/Vol]3.33 mg/dLHigh0.60-1.20[facility] HospitalComment on above:Order Comment: left tubes and labels with rn audie she will pass on to day shiftPerformed By: #### RENAL ####[address] [address] USADiff and CBCon 97-82-5864Bqbgp Platelet Tally1 /100{WBC}NormalThe [facility] Physician GroupComment on above: Order Comment: left tubes and labels with rn audie she will pass on to day shiftPerformed By: #### DIFF CBC ####[address] [address] USAHypochromasiaSlightNormalThe [facility] Physician GroupComment on above:Order Comment: left tubes and labels with rn audie she will pass on to day shiftPerformed By: #### DIFF CBC ####[address] [place] [address] USAMean Corpuscular HGB Conc30.4 g/dLLow32.0-35.0The [facility] Physician GroupComment on above:Order Comment: left tubes and labels with rn audie she will pass on to day shiftPerformed By: #### DIFF CBC ####[address] [address] USAMicrocytosisSlightNormJay Hospital Physician GroupComment on above:Order Comment: left tubes and labels with rn audie she will pass on to day shiftPerformed By: #### DIFF CBC ####[address] [address] USAMyelocytes4 %High0-0The [facility] Physician GroupComment on above:Order Comment: left tubes and labels with rn audie she will pass on to day shiftPerformed By: #### DIFF CBC ####[address] [address] [address] USAPlatelet EstimateNormalNormal NormalAdventhealth Kissimmee Physician GroupComment on above:Order Comment: left tubes and labels with rn audie she will pass on to day shiftPerformed By: #### DIFF CBC ####[address] [address] [place] Platelet MorphologyNormalNormalNoNovant Health Ballantyne Medical Center Physician GroupComment on above:Order Comment: left tubes and labels with rn audie she will pass on to day shiftResult Comment: PERFORMED BY:[address] [place], [place] [phone] MEDICAL TONYA LEE M.D.Performed By: #### DIFF CBC ####[address] [address] USAPolychromasiaMarkedNoNovant Health Ballantyne Medical Center Physician GroupComment on above:Order Comment: left tubes and labels with rn audie she will pass on to day shiftPerformed By: #### DIFF CBC ####[address] [address] USAStomatocytesSlight NormalThe [facility] Hospital Physician GroupComment on above:Order Comment: left tubes and labels with rn audie she will pass on to day shiftPerformed By: #### DIFF CBC ####[address] [address] [facility] White Blood Count12.7 [CFU]/mLHigh3.8-11.6The [facility] Physician GroupComment on above:Order Comment: left tubes and labels with rn audie she will pass on to day shiftPerformed By: #### DIFF CBC ####[address] [address] USAEosinophils Auto (Bld) [#/Vol]Ordered By: Xavier Mello on 25-51-7202Otumdipdetx (Bld) [#/Vol]N/[facility] NorthEosinophils/100 WBC Auto (Bld)Ordered By: Xavier Mello on 05-17-2025 Eosinophils/100 WBC (Bld)N/[facility] NorthEosinophils/100 leukocytes in Blood by Manual countOrdered By: Xavier Mello on 05-17-2025 Eosinophils/100 WBC (Bld)2 %Normal1-3FProMedica Defiance Regional HospitalComment on above:Order Comment: left tubes and labels with rn audie she will pass on to day shiftPerformed By: #### DIFF CBC ####[address] [address] USAErythrocyte distribution width [Ratio] by Automated countOrdered By: Xavier Mello on 51-42-8894Npeimbmxorc distribution width (RBC) [Ratio]21.7 %High11.9-15.3FProMedica Defiance Regional HospitalComment on above:Order Comment: left tubes and labels with rn audie she will pass on to day shiftPerformed By: #### DIFF CBC ####[address] [address] USAErythrocyte morphology finding [Identifier] in BloodOrdered By: Xavier Mello on 77-69-5588CDU morphology finding Nom (Bld)N/A [facility] HospitalErythrocytes [#/volume] in Blood by Automated countOrdered By: Xavier Mello on 32-35-0635GXB (Bld) [#/Vol]3.53 10*6/uLLow 3.60-5.00[facility] HospitalComment on above:Order Comment: left tubes and labels with salty bronsno she will pass on to day shiftPerformed By: #### DIFF CBC ####[address] [place] [address] USAGiant platelets/100 leukocytes [Ratio] in Blood by Manual countOrdered By: Xavier Mello on 39-79-8253Braiw platelets/100 WBC Manual cnt (Bld) [Ratio]1 /100{WBC}[facility] HospitalGlucose [Mass/volume] in Serum or PlasmaOrdered By: Rodo Hopkins on 44-71-3492Wzgvcwk [Mass/Vol]155 mg/dLHigh 70-100Mer[facility] HospitalComment on above:ADA recommended reference rangeRandom Glucose Reference Range is dependent on time and content of last meal. Glucose of more than 200 mg/dL in a nonstressed, ambulatory subject supports the diagnosisof Diabetes Mellitus.Order Comment: left tubes and labels with salty bronson she will pass on to day shiftResult Comment: Random Glucose Reference Range is dependent on time and content of last meal. Glucose of more than 200 mg/dL in a nonstressed, ambulatory subject supports the diagnosis of Diabetes Mellitus. ADA recommended reference rangePerformed By: #### RENAL ####[address] [place] [address] USAHematocrit [Volume Fraction] of Blood by Automated countOrdered By: Xavier Mello on 37-35-9104Bwmmdviqtq (Bld) [Volume fraction]26.6 %Low34.0-46.4FProMedica Defiance Regional HospitalComment on above:Order Comment: left tubes and labels with salty bronson she will pass on to day shiftPerformed By: #### DIFF CBC ####[facility] [place] [address] [place] Hemoglobin [Mass/volume] in BloodOrdered By: Xavier Mello on 15-85-6394Wmoyipojvy (Bld) [Mass/Vol]8.1 g/dLLow11.8-15.4FProMedica Defiance Regional HospitalComment on above:Order Comment: left tubes and labels with rn audie she will pass on to day shiftPerformed By: #### DIFF CBC ####[facility] [place] [address] USAHypochromia LM Ql (Bld)Ordered By: Xavier Mello on 54-35-0151Osvedraqwmm Ql (Bld)SlightMercy Health West Hospital Leukocytes [#/volume] corrected for nucleated erythrocytes in Blood by Automated counOrdered By: Xavier Mello on 29-32-3728KXT corrected for nucl RBC Auto (Bld) [#/Vol]12.7 10*3/uLHigh3.8-11.6FProMedica Defiance Regional HospitalLeukocytes [#/volume] in Blood by Automated countOrdered By: Xavier Mello on 54-75-0772RXX (Bld) [#/Vol]12.7 10*3/uLHigh3.8-11.6FProMedica Defiance Regional HospitalComment on above:Order Comment: left tubes and labels with salty bronson she will pass on to day shiftPerformed By: #### DIFF CBC ####[address] [place] [address] USALymphocytes Auto (Bld) [#/Vol]Ordered By: Xavier Mlelo on 00-96-8572Thlhpsyqcyw (Bld) [#/Vol]N/[facility] NorthLymphocytes/100 WBC Auto (Bld)Ordered By: Xavier Mello on 05-17-2025 Lymphocytes/100 WBC (Bld)N/[facility] NorthLymphocytes/100 leukocytes in Blood by Manual countOrdered By: Xavier Mello on 05-17-2025 Lymphocytes/100 WBC (Bld)11 %Jlt40-06IqsprbswnMercy Health West HospitalComment on above:Order Comment: left tubes and labels with salty bronson she will pass on to day shiftPerformed By: #### DIFF CBC ####[facility] [place] [address] USAMCH [Entitic mass] by Automated countOrdered By: aXvier Mello on 20-27-7377NMD (RBC) [Entitic mass]22.9 pgLow24.7-34.3 [facility] West HospitalComment on above:Order Comment: left tubes and labels with salty bronson she will pass on to day shiftPerformed By: #### DIFF CBC ####[address] [place] [address] [facility] Auto (RBC) [Mass/Vol]Ordered By: Xavier Mello on 51-70-9219TUXI (RBC) [Mass/Vol] 30.4 g/dLLow32.0-35.0Mer[facility] Health West HospitalMCV [Entitic volume] by Automated countOrdered By: Xavier Mello on 13-65-0768XOG (RBC) [Entitic vol]75.3 zIJnc31-377FnkfsmrpkMercy Health West HospitalComment on above:Order Comment: left tubes and labels with salty bronson she will pass on to day shiftPerformed By: #### DIFF CBC ####[address] [place] [address] USAMicrocytes LM Ql (Bld)Ordered By: Xavier Mello on 37-61-6265Otocpgmsxg Ql (Bld)SlightMercy Health West HospitalMonocytes Auto (Bld) [#/Vol] Ordered By: Xavier Mello on 88-37-5334Xheaggafh (Bld) [#/Vol]N/[facility] NorthMonocytes/100 WBC Auto (Bld)Ordered By: Xavier Mello on 41-90-6867Ylewlpots/100 WBC (Bld)N/[facility] Monocytes/100 leukocytes in Blood by Manual countOrdered By: Xavier Mello on 36-83-9112Jqurahhzg/100 WBC (Bld)2 %Normal2-11[facility] Comment on above:Order Comment: left tubes and labels with salty bronson she will pass on to day shiftPerformed By: #### DIFF CBC ####[address] [place] [address] USAMyelocytes/100 WBC Manual cnt (Bld) Ordered By: Xavier Mello on 77-82-5819Vqqalkqzds/100 WBC (Bld)4 %High0-0Mer[facility] Health West HospitalNeutrophils Auto (Bld) [#/Vol]Ordered By: Xavier Mello on 72-72-6579Thvpvluanvn (Bld) [#/Vol]N/[facility] Neutrophils/100 WBC Auto (Bld)Ordered By: Xavier Mello on 05-17-2025 Neutrophils/100 WBC (Bld)N/[facility] NorthNo Panel InformationOrdered By: Rodo Hopkins on 21-84-2382Lbysfceql GFR (CKD-EPI)15.805 mL/MinMercy Health West HospitalPharmacy Creatinine Clearance (Chem16.97 [facility] HospitalNucleated erythrocytes [Presence] in Blood by Automated countOrdered By: Xavier Mello on 68-30-0551Fgioyvbqr RBC Auto Ql (Bld) N/[facility] NorthPhosphate [Mass/volume] in Serum or Plasma Ordered By: Rodo Hopkins on 33-19-1512Ijynirwgl [Mass/Vol]2.6 mg/dLNormal2.5-4.5 [facility] HospitalComment on above:Order Comment: left tubes and labels with salty bronson she will pass on to day shiftPerformed By: #### RENAL ####[facility] [place] [address] [facility] Platelet adequacy [Presence] in Blood by Light microscopyOrdered By: Xavier Mello on 03-78-0703Mjfcdejqm LM Ql (Bld)NormalNormalMercy Health West Hospital Platelet mean volume [Entitic volume] in Blood by Automated countOrdered By: Xavier Mello on 73-91-3124Scpmeham mean volume (Bld) [Entitic vol]7.7 fLNormal 6.3-10.7FProMedica Defiance Regional HospitalComment on above:Order Comment: left tubes and labels with salty bronson she will pass on to day shiftResult Comment: PERFORMED BY:[address] [place], [place] [phone] MEDICAL DIRECTORLANDRY LEE M.D.Performed By: #### DIFF CBC ####[facility] [place] [address] USAPlatelet morphology finding [Identifier] in BloodOrdered By: Xavier Mello on 08-13-2548Gzbkojdd morphology finding Nom (Bld)WVUMedicine Harrison Community HospitalPlatelets [#/volume] in Blood by Automated countOrdered By: Xavier Mello on 28-43-6575Kvmjnmsyt (Bld) [#/Vol]264 10*3/vLJcpbby866-803 [facility] HospitalComment on above:Order Comment: left tubes and labels with rn audie she will pass on to day shiftPerformed By: #### DIFF CBC ####[address] [address] [place] Polychromasia [Presence] in Blood by Light microscopyOrdered By: Xavier Mello on 62-08-3727Hhuygtqjttlnb LM Ql (Bld)[facility] Potassium [Moles/volume] in Serum or PlasmaOrdered By: Rodo Hopkins on 33-87-9373Jsdksyndm [Moles/Vol]4.0 mmol/LNormal3.5-5.1FProMedica Defiance Regional HospitalComment on above:Order Comment: left tubes and labels with salty bronson she will pass on to day shiftPerformed By: #### RENAL ####[address] [address] USARenal Function Panelon 04-44-1616Kvndaky [Mass/Vol]2.5 g/dLLow3.5-5.7The [facility] Comment on above:Order Comment: left tubes and labels with salty bronson she will pass on to day shiftPerformed By: #### RENAL ####[address] [place] [address] USACreatinine Clr Calc Wfjckkyn47.97 NormalThe [facility] Hospital Physician GroupComment on above:Order Comment: left tubes and labels with salty bronson she will pass on to day shiftResult Comment: PERFORMED BY:[address] [place], [place] [phone] MEDICAL TONYA LEE M.D.Performed By: #### RENAL ####[address] [address] USAGFR/1.73 sq M.predicted MDRD (S/P/Bld) [Vol rate/Area]15.805 mL/min/{1.73_m2}NormalThe [facility] Hospital Physician GroupComment on above:Order Comment: left tubes and labels with rn audie she will pass on to day shift Performed By: #### RENAL ####[address] [address] USASegmented neutrophils/100 leukocytes in Blood by Manual countOrdered By: Xavier Mello on 09-91-3805Nhkyrfmsm neutrophils/100 WBC (Bld)80 %Wrhr35-19MawvzdqljMercy Health West HospitalComment on above:Order Comment: left tubes and labels with rn audie she will pass on to day shift Performed By: #### DIFF CBC ####[address] [address] USASerum or plasma anion gap determinationOrdered By: Rodo Hopkins on 20-26-7125Jzzeb gap [Moles/Vol]11.6 mmol/LNormal6.0-15.0 [facility] HospitalComment on above:Order Comment: left tubes and labels with rn audie she will pass on to day shiftPerformed By: #### RENAL ####[address] [address] USASodium [Moles/volume] in Serum or PlasmaOrdered By: Rodo Hopkins on 40-39-7344Ifccnm [Moles/Vol]131 mmol/TKat684-507KensoojqoMercy Health West HospitalComment on above:Order Comment: left tubes and labels with rn audie she will pass on to day shiftPerformed By: #### RENAL ####[address] [address] USAStomatocytes [Presence] in Blood by Light microscopy Ordered By: Xavier Mello on 93-35-5569Kagiuolbrjqq LM Ql (Bld)SlightFirelands Regional Medical CenterUrea nitrogen [Mass/volume] in Serum or PlasmaOrdered By: Rodo Hopkins on 56-66-6517Bamb nitrogen [Mass/Vol]17 mg/dLNormal7-[facility] HospitalComment on above:Order Comment: left tubes and labels with rn audie she will pass on to day shiftPerformed By: #### RENAL ####[address] [address] USABand form neutrophils/100 leukocytes in Blood by Manual countOrdered By: Xavier Mello on 15-27-8236Scqt form neutrophils/100 WBC (Bld)1 %Normal0-5FProMedica Defiance Regional HospitalComment on above:Order Comment: REDRAWPerformed By: #### DIFF CBC ####[address] [address] USADiff and CBCon 53-31-8362Wblfiofyuoxs Ql (Bld)MarkedNormalThSt. Luke's [facility]more [facility] Center Physician GroupComment on above:Order Comment: REDRAWPerformed By: #### DIFF CBC ####[address] [address] [place] Eosinophils/100 WBC (Bld)1 %Normal1-3The [facility] Physician GroupComment on above:Order Comment: REDRAWPerformed By: #### DIFF CBC ####[address] [address] USAErythrocyte distribution width (RBC) [Ratio]22.2 %High11.9-15.3The [facility] Physician GroupComment on above: Order Comment: REDRAWPerformed By: #### DIFF CBC ####[address] [address] USAHematocrit (Bld) [Volume fraction]27.2 %Low34.0-46.4The [facility] Physician GroupComment on above:Order Comment: REDRAW Performed By: #### DIFF CBC ####[address] [address] USAHemoglobin (Bld) [Mass/Vol]8.3 g/dLLow11.8-15.4The [facility] Physician GroupComment on above:Order Comment: REDRAWPerformed By: #### DIFF CBC ####[address] [address] USAHypochromasiaSFirstHealth Moore Regional Hospital Physician GroupComment on above: Order Comment: REDRAWPerformed By: #### DIFF CBC ####[address] [address] USALymphocytes/100 WBC (Bld)8 %Qgi88-31 The [facility] Physician GroupComment on above:Order Comment: REDRAWPerformed By: #### DIFF CBC ####[address] [address] [facility]ITALMCH (RBC) [Entitic mass]23.0 pgLow24.7-34.3The [facility] Physician GroupComment on above:Order Comment: REDRAWPerformed By: #### DIFF CBC ####[address] [address] [facility]AL[facility]ATEV (RBC) [Entitic vol]75.9 dIXgr11-898Ilq [facility] Physician GroupComment on above:Order Comment: REDRAWPerformed By: #### DIFF CBC ####[address] [address] USAMean Corpuscular HGB Conc30.3 g/dLLow32.0-35.0The [facility] Physician GroupComment on above:Order Comment: REDRAWPerformed By: #### DIFF CBC ####[address] [address] USAMetamyelocytes2 %High0-0The [facility] Physician GroupComment on above:Order Comment: REDRAWPerformed By: #### DIFF CBC ####[address] [address] [place] MicrocytosisSFirstHealth Moore Regional Hospital Physician GroupComment on above:Order Comment: REDRAWPerformed By: #### DIFF CBC ####[address] [address] USAMonocytes/100 WBC (Bld)5 %Normal2-11 The [facility] Physician GroupComment on above:Order Comment: REDRAWPerformed By: #### DIFF CBC ####[address] [address] USAPlatelet EstimateNormalNormalNormJay Hospital Physician GroupComment on above:Order Comment: REDRAWPerformed By: #### DIFF CBC ####[address] [address] USAPlatelet mean volume (Bld) [Entitic vol]7.8 fLNormal6.3-10.7The [facility] Physician GroupComment on above: Order Comment: REDRAWPerformed By: #### DIFF CBC ####[address] [address] USAPlatelet MorphologyNormalNormalNormal [facility] Physician GroupComment on above:Order Comment: REDRAWResult Comment: PERFORMED BY:[address] [place], [place] [phone] MEDICAL DIRECTORLANDRY LEE M.D.Performed By: #### DIFF CBC ####[address] [address] USAPlatelets (Bld) [#/Vol]253 10*3/kKYddajp111-428Gkv [facility] Physician GroupComment on above:Order Comment: REDRAWPerformed By: #### DIFF CBC ####[address] [address] [place] PolychromasiaSlightNormJay Hospital Physician GroupComment on above:Order Comment: REDRAWPerformed By: #### DIFF CBC ####[address] [address] USARBC (Bld) [#/Vol]3.59 10*6/uLLow 3.60-5.00The [facility] Physician GroupComment on above:Order Comment: REDRAW Performed By: #### DIFF CBC ####[address] [address] USASegmented neutrophils/100 WBC (Bld)84 %Nriy34-28Ldy [facility] Physician GroupComment on above:Order Comment: REDRAWPerformed By: #### DIFF CBC ####[address] USAStomatocytesSlightNormJay Hospital Physician [facility] HospitalComment on above: Order Comment: REDRAWPerformed By: #### DIFF CBC ####[place] [address] USAWBC (Bld) [#/Vol]15.3 10*3/uLHigh 3.8-11.6The [facility] Physician GroupComment on above:Order Comment: REDRAW Performed By: #### DIFF CBC ####[address] USAWhite Blood Count15.3 [CFU]/mLHigh3.8-11.6ThSt. Luke's El[facility] Center Physician GroupComment on above:Order Comment: REDRAWPerformed By: #### DIFF CBC ####[address] USAGlucose Poct Glucometerson 90-60-1561Unwqbjc [Mass/Vol]160 mg/dLNormal [facility] Physician GroupComment on above:Result Comment: Random Glucose Reference Range is dependent on time and content of last meal. Glucose of more than 200 mg/dL in a nonstressed, ambulatory subject supports the diagnosis of Diabetes Mellitus.PERFORMED BY:[address] [place], [place] [phone] MEDICAL TONYA LEE M.D.Performed By: #### GLULS ####Point of Care testing,Glucose [Mass/Vol]183 mg/dLNormJay Hospital Physician GroupComment on above:Result Comment: Random Glucose Reference Range is dependent on time and content of last meal. Glucose of more than 200 mg/dL in a nonstressed, ambulatory subject supports the diagnosis of Diabetes Mellitus.PERFORMED BY:[address] [place], [place] [phone] IONA LEE M.D.Performed By: #### GLULS ####Point of Care testing, Glucose [Mass/Vol]179 mg/dLOrlando Health Winnie [facility] Physician [facility] HospitalComment on above: Result Comment: Random Glucose Reference Range is dependent on time and content of last meal. Glucose of more than 200 mg/dL in a nonstressed, ambulatory subject supports the diagnosis of Diabetes Mellitus.PERFORMED BY:[address] [place]AM[place], [place] [phone] MEDICAL DIRECTORLANDRY LEE M.D.Performed By: #### GLULS ####Point of Care testing,Glucose [Mass/Vol]170 mg/dLOrlando Health Winn[facility] Physician [facility] HospitalComment on above:Result Comment: Random Glucose Reference Range is dependent on time and content of last meal. Glucose of more than 200 mg/dL in a nonstressed, ambulatory subject supports the diagnosis of Diabetes Mellitus.PERFORMED BY:[address] [place], [place] [phone] MEDICAL TONYA LEE M.D.Performed By: #### GLULS ####Point of Care testing,Metamyelocytes/100 WBC Manual cnt (Bld) Ordered By: Xavier Mello on 47-13-4660Jbgradgkbwslbz/100 WBC (Bld)2 %High0-0 [facility] HospitalDi and CBCon 12-74-1672Nmjsvrihrfcc Ql (Bld) ModerateNoNovant Health Ballantyne Medical Center Physician [facility] HospitalComment on above:Performed By: #### DIFF CBC ####[address] [address] USABand form neutrophils/100 WBC (Bld)6 %High0-5[facility]ician [facility] Comment on above:Performed By: #### DIFF CBC ####[address] [address] USABasophils/100 WBC (Bld)1 %Normal0-2The [facility] Physician GroupComment on above:Performed By: #### DIFF CBC ####[address] [address] [place] Eosinophils/100 WBC (Bld)1 %Normal1-3The [facility] Physician GroupComment on above:Performed By: #### DIFF CBC ####[address] [address] USAErythrocyte distribution width (RBC) [Ratio]22.4 % High11.9-15.3The [facility] Physician GroupComment on above:Performed By: #### DIFF CBC ####[address] [address] USAHematocrit (Bld) [Volume fraction]29.4 %Low34.0-46.4The [facility] Physician GroupComment on above:Performed By: #### DIFF CBC ####[place] [address] USAHemoglobin (Bld) [Mass/Vol]8.9 g/dLLow 11.8-15.4The [facility] Physician GroupComment on above:Performed By: #### DIFF CBC ####[address] [place] HypochromasiaModerateNormalThe [facility] Physician GroupComment on above: Performed By: #### DIFF CBC ####[address] [address] USALymphocytes/100 WBC (Bld)9 %Ysc38-68Rbd [facility] Physician GroupComment on above:Performed By: #### DIFF CBC ####[address] [address] USAMCH (RBC) [Entitic mass]22.8 pgLow24.7-34.3The [facility] Physician GroupComment on above:Performed By: #### DIFF CBC ####[address] [address] USAMCV (RBC) [Entitic vol]75.7 oIHdl43-622Qwy [facility] Comment on above:Performed By: #### DIFF CBC ####[address] [address] USAMean Corpuscular HGB Conc30.2 g/dLLow 32.0-35.0The [facility] Physician GroupComment on above:Performed By: #### DIFF CBC ####[facility] [place] [address] [place] MicrocytosisSlightNormJay Hospital Physician GroupComment on above:Performed By: #### DIFF CBC ####[address] [address] USAMonocytes/100 WBC (Bld)5 %Normal2-11[facility] Comment on above:Performed By: #### DIFF CBC ####[address] [address] USAMyelocytes1 %High0-0The [facility] Physician GroupComment on above:Performed By: #### DIFF CBC ####[address] [address] USAPlatelet Estimate NormalNormalNormJay Hospital Physician GroupComment on above:Performed By: #### DIFF CBC ####[address] [address] USAPlatelet mean volume (Bld) [Entitic vol]7.6 fLNormal6.3-10.7The [facility] Physician [facility] HospitalComment on above:Performed By: #### DIFF CBC ####[address] [address] [place] Platelet MorphologyNormalNormalNoNovant Health Ballantyne [facility] Center Physician [facility] HospitalComment on above:Result Comment: PERFORMED BY:[address] [place], [place] [phone] MEDICAL TONYA LEE M.D.Performed By: #### DIFF CBC ####[address] [address] USAPlatelets (Bld) [#/Vol]313 10*3/tSWqbkxf295-388Exi [facility] Physician GroupComment on above:Performed By: #### DIFF CBC ####[address] [address] [place] PolychromasiaSlightNoNovant Health Ballantyne Medical Center Physician GroupComment on above:Performed By: #### DIFF CBC ####[address] [place] [address] USARBC (Bld) [#/Vol]3.89 10*6/uLNormal3.60-5.00The [facility] Physician [facility] HospitalComment on above:Performed By: #### DIFF CBC ####[address] USARBC morphology finding Nom (Bld) NormalNormalNormJay Hospital Physician [facility] HospitalComment on above:Performed By: #### DIFF CBC ####[address] USASegmented neutrophils/100 WBC (Bld)77 %Yuos80-70Htq [facility] Physician [facility] HospitalComment on above:Performed By: #### DIFF CBC ####[address] USAWBC (Bld) [#/Vol]18.3 10*3/uL High3.8-11.6The [facility] Physician [facility] HospitalComment on above:Performed By: #### DIFF CBC ####[address] USAWhite Blood Count18.3 [CFU]/mLHigh3.8-11.6The [facility] Physician [facility] Comment on above:Performed By: #### DIFF CBC ####[address] USAGlucose Poct Glucometerson 05-15-2025 Glucose [Mass/Vol]194 mg/dLOrlando Health [facility] Physician [facility] HospitalComment on above: Result Comment: Random Glucose Reference Range is dependent on time and content of last meal. Glucose of more than 200 mg/dL in a nonstressed, ambulatory subject supports the diagnosis of Diabetes Mellitus.PERFORMED BY:[address] [place], [place] [phone] MEDICAL DIRECTORLANDRY LEE M.D.Performed By: #### GLULS ####Point of Care testing,Ioiczmn9Lrc7: Cleaned MeterNoNovant [facility] Community HospitalComment on above:Result Comment: PERFORMED BY:[place] [address] [address] [place] [phone] MEDICAL TONYA LEE M.D.Performed By: #### GLULS ####Point of Care testing,Glucose [Mass/Vol]158 mg/dLNoNovant Health [facility] Physician GroupComment on above:Result Comment: Random Glucose Reference Range is dependent on time and content of last meal. Glucose of more than 200 mg/dL in a nonstressed, ambulatory subject supports the diagnosis of Diabetes Mellitus.Performed By: #### GLULS ####Point of Care testing,Glucose [Mass/Vol]176 mg/dLNoNovant Health [facility] Physician GroupComment on above:Result Comment: Random Glucose Reference Range is dependent on time and content of last meal. Glucose of more than 200 mg/dL in a nonstressed, ambulatory subject supports the diagnosis of Diabetes Mellitus.PERFORMED BY:[address]JC [place]IAZCassieAMI, [place] [phone] MEDICAL TONYA LEE M.D.Performed By: #### GLULS ####Point of Care testing,Glucose [Mass/Vol]147 mg/dLNoNovant Health [facility] Physician GroupComment on above:Result Comment: Random Glucose Reference Range is dependent on time and content of last meal. Glucose of more than 200 mg/dL in a nonstressed, ambulatory subject supports the diagnosis of Diabetes Mellitus.PERFORMED BY:[place] [address] [address] [place]IAZCassieTH[place], [place] [phone] MEDICAL TONYA LEE M.D.Performed By: #### GLULS ####Point of Care testing,No Panel Information Ordered By: Aris Patel on 30-21-6574Vzsjyye Glucose CommentGlu2: cleaned [facility] MiamisburgRenal Function Panelon 16-23-5306Dwbsqsg [Mass/Vol]2.7 g/dLLow3.5-5.7The [facility] Physician GroupComment on above: Performed By: #### RENAL ####[address] [address] USAAnion gap [Moles/Vol]14.4 mmol/LNormal6.0-15.0The [facility] Physician GroupComment on above:Performed By: #### RENAL ####[address] [address] USACalcium [Mass/Vol] 8.4 mg/dLLow8.6-10.3The [facility] Physician GroupComment on above:Performed By: #### RENAL ####[address] [address] USAChloride [Moles/Vol]97 mmol/DMhq32-855Sgg [facility] Physician GroupComment on above:Performed By: #### RENAL ####[address] [address] USACO2 [Moles/Vol]26.6 mmol/PRujhkw39.0-31.0The [facility] Physician GroupComment on above:Performed By: #### RENAL ####[address] [address] USACreatinine [Mass/Vol]4.05 mg/dLHigh0.60-1.20The [facility] Physician GroupComment on above: Performed By: #### RENAL ####[address] [address] USACreatinine Clr Calc Dwcktcgg67.97NormJay [facility]ician [facility] HospitalComment on above:Result Comment: PERFORMED BY:[place] [address] [address] RICKJohanaCassieAMI, [place] [phone] MEDICAL TONYA LEE M.D.Performed By: #### RENAL ####[address] [address] USAGFR/1.73 sq M.predicted MDRD (S/P/Bld) [Vol rate/Area]12.497 mL/min/{1.73_m2}NormalThe [facility] Physician GroupComment on above:Performed By: #### RENAL ####[address] [address] USAGlucose [Mass/Vol]135 mg/nFMwsn98-776 The [facility] Physician GroupComment on above:Result Comment: Random Glucose Reference Range is dependent on time and content of last meal. Glucose of more than 200 mg/dL in a nonstressed, ambulatory subject supports the diagnosis of Diabetes Mellitus. ADA recommended reference rangePerformed By: #### RENAL ####[address] Phosphate [Mass/Vol]4.1 mg/dLNormal2.5-4.5The [facility] Physician GroupComment on above:Performed By: #### RENAL ####[place] [address] USAPotassium [Moles/Vol]4.0 mmol/LNormal3.5-5.1The [facility] Physician GroupComment on above:Performed By: #### RENAL ####[place] [address] USASodium [Moles/Vol] 134 mmol/HJyr722-914Yhh [facility] Physician GroupComment on above:Performed By: #### RENAL ####[place] [address] USAUrea nitrogen [Mass/Vol]23 mg/dLNormal7-25The [facility] Comment on above:Performed By: #### RENAL ####[place] [address] USADiff and CBCon 38-30-2860Hlegzfmcuwtl Ql (Bld)MarkedNormalThe [facility] Physician GroupComment on above:Performed By: #### DIFF CBC ####[place] [address] USABand form neutrophils/100 WBC (Bld)1 %Normal0-5The [facility] Physician GroupComment on above:Performed By: #### DIFF CBC ####[place] [address] USAErythrocyte distribution width (RBC) [Ratio]22.0 %High11.9-15.3The [facility] Physician GroupComment on above: Performed By: #### DIFF CBC ####[place] [address] USAHematocrit (Bld) [Volume fraction]27.8 %Low34.0-46.4 The [facility] Physician GroupComment on above:Performed By: #### DIFF CBC ####[address] [address] [place] Hemoglobin (Bld) [Mass/Vol]8.5 g/dLLow11.8-15.4The [facility] Comment on above:Performed By: #### DIFF CBC ####[place] [address] USAHypochromasiaSFirstHealth Moore Regional Hospital Physician GroupComment on above:Performed By: #### DIFF CBC ####[place] [address] USALymphocytes/100 WBC (Bld)7 %Qbp56-68Pik [facility] Physician GroupComment on above:Performed By: #### DIFF CBC ####[place] [address] USAMCH (RBC) [Entitic mass]23.1 pgLow24.7-34.3The [facility] Comment on above:Performed By: #### DIFF CBC ####[address] [address] USAMCV (RBC) [Entitic vol]75.3 fLLow 80-100The [facility] Physician GroupComment on above:Performed By: #### DIFF CBC ####[address] [address] USAMean Corpuscular HGB Conc30.6 g/dLLow32.0-35.0The [facility] Physician GroupComment on above:Performed By: #### DIFF CBC ####[address] [address] USAMetamyelocytes2 %High0-0The [facility] Physician GroupComment on above:Performed By: #### DIFF CBC ####[address] [address] USAMicrocytosisSFirstHealth Moore Regional Hospital Physician GroupComment on above:Performed By: #### DIFF CBC ####[place] [address] USAMonocytes/100 WBC (Bld)3 %Normal2-11[facility] Physician GroupComment on above:Performed By: #### DIFF CBC ####[address] [address] USAMyelocytes3 %High0-0The [facility] Physician GroupComment on above: Performed By: #### DIFF CBC ####[address] [address] USAPlatelet EstimateNormalNormalNormJay Hospital Physician GroupComment on above:Performed By: #### DIFF CBC ####[address] [address] USAPlatelet mean volume (Bld) [Entitic vol]7.8 fLNormal6.3-10.7The [facility] Physician GroupComment on above:Performed By: #### DIFF CBC ####[address] [address] USAPlatelet MorphologyNormalNormalNormJay Hospital Physician GroupComment on above:Result Comment: PERFORMED BY:[address] [place], [place] [phone] MEDICAL DIRECTORLANDRY LEE M.D.Performed By: #### DIFF CBC ####[address] [address] USAPlatelets (Bld) [#/Vol]295 10*3/yXGknwuz192-094Ggl [facility] Physician GroupComment on above:Performed By: #### DIFF CBC ####[address] [address] USAPolychromasiaSlightNoNovant Health [facility] Physician GroupComment on above: Performed By: #### DIFF CBC ####[address] [address] USARBC (Bld) [#/Vol]3.70 10*6/uLNormal3.60-5.00The [facility] Physician GroupComment on above:Performed By: #### DIFF CBC ####[address] [address] [facility] Segmented neutrophils/100 WBC (Bld)85 %Cxko28-67JwiAdventhealth Kissimmee Physician Group Comment on above:Performed By: #### DIFF CBC ####[address] [address] USAWBC (Bld) [#/Vol]19.3 10*3/uLHigh 3.8-11.6The [facility] Physician GroupComment on above:Performed By: #### DIFF CBC ####[place] [address] [facility] White Blood Count19.3 [CFU]/mLHigh3.8-11.6The [facility] Physician GroupComment on above:Performed By: #### DIFF CBC ####[place] [address] USAGlucose Poct Glucometerson 03-72-4753Qjkvvte [Mass/Vol]176 mg/dLNoNovant Health [facility] Physician [facility] HospitalComment on above:Result Comment: Random Glucose Reference Range is dependent on time and content of last meal. Glucose of more than 200 mg/dL in a nonstressed, ambulatory subject supports the diagnosis of Diabetes Mellitus.PERFORMED BY:[address] [place], [place] [phone] MEDICAL TONYA LEE M.D.Performed By: #### GLULS ####Point of Care testing, Glucose [Mass/Vol]193 mg/dLNoNovant Health [facility] Physician GroupComment on above: Result Comment: Random Glucose Reference Range is dependent on time and content of last meal. Glucose of more than 200 mg/dL in a nonstressed, ambulatory subject supports the diagnosis of Diabetes Mellitus.PERFORMED BY:[address] [place], [place] [phone] MEDICAL TONYA LEE M.D.Performed By: #### GLULS ####Point of Care testing,Glucose [Mass/Vol]161 mg/dLNoNovant [facility] Physician GroupComment on above:Result Comment: Random Glucose Reference Range is dependent on time and content of last meal. Glucose of more than 200 mg/dL in a nonstressed, ambulatory subject supports the diagnosis of Diabetes Mellitus.PERFORMED BY:[place] [address] [place], [place] [phone] MEDICAL TONYA LEE M.D.Performed By: #### GLULS ####Point of Care testing,Uwgoxty0Lga9: Cleaned MeterNormJay Hospital Physician GroupComment on above:Result Comment: PERFORMED BY:[place] [address] [address] [place], [place] [phone] MEDICAL TONYA LEE M.D.Performed By: #### GLULS ####Point of Care testing,Glucose [Mass/Vol]182 mg/dLOrlando Health Winnie [facility] Hospital for [facility] & Babies Physician GroupComment on above:Result Comment: Random Glucose Reference Range is dependent on time and content of last meal. Glucose of more than 200 mg/dL in a nonstressed, ambulatory subject supports the diagnosis of Diabetes Mellitus.Performed By: #### GLULS ####Point of Care testing,Renal Function Panelon 84-01-2020Wgihxqv [Mass/Vol]2.5 g/dLLow3.5-5.7The [facility] Physician GroupComment on above: Performed By: #### RENAL ####[address] [address] USAAnion gap [Moles/Vol]11.5 mmol/LNormal6.0-15.0The [facility] Physician GroupComment on above:Performed By: #### RENAL ####[address] [address] USACalcium [Mass/Vol] 8.5 mg/dLLow8.6-10.3The [facility] Physician GroupComment on above:Performed By: #### RENAL ####[address] [address] USAChloride [Moles/Vol]96 mmol/OSaw26-908Lam [facility] Physician GroupComment on above:Performed By: #### RENAL ####[address] [address] USACO2 [Moles/Vol]28.2 mmol/HNmmcbs26.0-31.0The [facility] Physician GroupComment on above:Performed By: #### RENAL ####[place] [address] USACreatinine [Mass/Vol]3.72 mg/dLSignificant change down0.60-1.20The [facility] Physician GroupComment on above:Performed By: #### RENAL ####[place] [address] USACreatinine Clr Calc Dpxdggaw80.43 NormalThe [facility] Physician GroupComment on above:Result Comment: PERFORMED BY:[address] [place], [place] [phone] MEDICAL DIRECTORLANDRY LEE M.D.Performed By: #### RENAL ####[place] [address] [place] GFR/1.73 sq M.predicted MDRD (S/P/Bld) [Vol rate/Area]13.838 mL/min/{1.73_m2} NormalThe [facility] Physician [facility] HospitalComment on above:Performed By: #### RENAL ####[place] [address] USAGlucose [Mass/Vol]145 mg/pWWjqo68-254Cts [facility] Physician GroupComment on above: Result Comment: Random Glucose Reference Range is dependent on time and content of last meal. Glucose of more than 200 mg/dL in a nonstressed, ambulatory subject supports the diagnosis of Diabetes Mellitus. ADA recommended reference rangePerformed By: #### RENAL ####[place] [address] [place] [id number] USAPhosphate [Mass/Vol]1.6 mg/dLLow2.5-4.5The [facility] Physician [facility] HospitalComment on above:Performed By: #### RENAL ####[place] [address] USAPotassium [Moles/Vol]3.7 mmol/LNormal3.5-5.1The [facility] Physician GroupComment on above:Performed By: #### RENAL ####[facility] [place] [address] USASodium [Moles/Vol]132 mmol/AOqg763-298Gex [facility] Physician GroupComment on above:Performed By: #### RENAL ####[place] [address] [place] [address] USAUrea nitrogen [Mass/Vol]19 mg/dLNormal7-25The [facility] Physician GroupComment on above:Performed By: #### RENAL ####[address] [address] USAAlanine aminotransferase [Enzymatic activity/volume] in Serum or PlasmaOrdered By: Xavier Mello on 24-77-5819KJP [Catalytic activity/Vol]5 U/LLow7-52Mer[facility] HospitalComment on above:Performed By: #### DIFF CBC, CMP ####[address] [address] USAAlkaline phosphatase [Enzymatic activity/volume] in Serum or PlasmaOrdered By: Xavier Mello on 34-47-4052KFE [Catalytic activity/Vol]161 U/KPkmw46-418BmjlfzjidMercy Health West HospitalComment on above:Performed By: #### DIFF CBC, CMP ####[address] [address] USAAspartate aminotransferase [Enzymatic activity/volume] in Serum or PlasmaOrdered By: Xavier Mello on 33-40-2498WPB [Catalytic activity/Vol]6 U/TLea77-49LmkorqomjMercy Health West HospitalComment on above:Performed By: #### DIFF CBC, CMP ####[address] [address] USABilirubin.total [Mass/volume] in Serum or PlasmaOrdered By: Xavier Mello on 08-35-1071Bithgudap [Mass/Vol]0.3 mg/dLNormal0.3-1.0Mer[facility] HospitalComment on above:Performed By: #### DIFF CBC, CMP ####[address] [address] USAComprehensive Metabolic Panelon 05-13-2025 Albumin [Mass/Vol]2.6 g/dLLow3.5-5.7The [facility] Physician GroupComment on above:Performed By: #### DIFF CBC, CMP ####[address] [address] USAAnion gap [Moles/Vol]11.4 mmol/LNormal6.0-15.0 The [facility] Physician GroupComment on above:Performed By: #### DIFF CBC, CMP ####[address] [address] USACalcium [Mass/Vol]8.3 mg/dLLow8.6-10.3The [facility] Physician GroupComment on above: Performed By: #### DIFF CBC, CMP ####[address] [address] USAChloride [Moles/Vol]96 mmol/CEue09-259Lxx [facility] Physician [facility] HospitalComment on above:Performed By: #### DIFF CBC, CMP ####[address] [address] USACO2 [Moles/Vol]29.4 mmol/NJjzsax15.0-31.0The [facility] Physician GroupComment on above:Performed By: #### DIFF CBC, CMP ####[address] [address] USACreatinine [Mass/Vol]2.60 mg/dLSignificant change down0.60-1.20The [facility] Physician GroupComment on above:Performed By: #### DIFF CBC, CMP ####[address] [address] [place] Creatinine Clr Calc Zbyitsyl30.91NormalThe [facility] Physician [facility] HospitalComment on above:Result Comment: PERFORMED BY:[place] [address] RODRIGUEZAMIAU [place], [place] [phone] MEDICAL TONYA LEE M.D.Performed By: #### DIFF CBC, CMP ####[address] [address] USAGFR/1.73 sq M.predicted MDRD (S/P/Bld) [Vol rate/Area]21.270 mL/min/{1.73_m2}NormalThe [facility] Physician GroupComment on above:Performed By: #### DIFF CBC, CMP ####[place] [address] USAGlucose [Mass/Vol]134 mg/sGGhfq03-121Gog [facility] Physician GroupComment on above:Result Comment: Random Glucose Reference Range is dependent on time and content of last meal. Glucose of more than 200 mg/dL in a nonstressed, ambulatory subject supports the diagnosis of Diabetes Mellitus. ADA recommended reference rangePerformed By: #### DIFF CBC, CMP ####[place] [address] [place] Potassium [Moles/Vol]3.8 mmol/LNormal3.5-5.1The [facility] Physician GroupComment on above:Performed By: #### DIFF CBC, CMP ####[place] [address] USASodium [Moles/Vol]133 mmol/FEdl813-567 The [facility] Physician GroupComment on above:Performed By: #### DIFF CBC, CMP ####[place] [address] USAUrea nitrogen [Mass/Vol]13 mg/dLNormal7-25The [facility] Physician GroupComment on above:Performed By: #### DIFF CBC, CMP ####[place] [address] USADiff and CBCon 36-21-8921Cdbbixfdjkmu Ql (Bld) MarkedNormalThe [facility] Physician GroupComment on above:Performed By: #### DIFF CBC, CMP ####[place] [address] USABasophils/100 WBC (Bld)1 %Normal0-2The [facility] Physician GroupComment on above:Performed By: #### DIFF CBC, CMP ####[place] [address] USAEosinophils/100 WBC (Bld)1 %Normal1-3 The [facility] Physician GroupComment on above:Performed By: #### DIFF CBC, CMP ####[place] [address] [facility] Erythrocyte distribution width (RBC) [Ratio]21.5 %High11.9-15.3The [facility] Physician GroupComment on above:Performed By: #### DIFF CBC, CMP ####[place] [address] USAHematocrit (Bld) [Volume fraction]28.4 %Low34.0-46.4The [facility] Physician GroupComment on above:Performed By: #### DIFF CBC, CMP ####[place] [address] USAHemoglobin (Bld) [Mass/Vol]8.7 g/dLLow 11.8-15.4The [facility] Physician GroupComment on above:Performed By: #### DIFF CBC, CMP ####[place] [address] USAHypochromasiaSlightNormalThe [facility] Physician GroupComment on above: Performed By: #### DIFF CBC, CMP ####[place] [address] USALymphocytes/100 WBC (Bld)8 %Kkx72-99Oeu [facility] Physician GroupComment on above:Performed By: #### DIFF CBC, CMP ####[place] [address] USAMCH (RBC) [Entitic mass]23.2 pgLow24.7-34.3The [facility] Physician GroupComment on above:Performed By: #### DIFF CBC, CMP ####[place] [address] USAMCV (RBC) [Entitic vol]75.6 fHXlm74-159Khs [facility] Physician GroupComment on above:Performed By: #### DIFF CBC, CMP ####[place] [address] USAMean Corpuscular HGB Conc30.7 g/dLLow32.0-35.0The [facility] Physician [facility] HospitalComment on above:Performed By: #### DIFF CBC, CMP ####[address] [address] USAMicrocytosisSlightOrlando Health Winnie Palmer [facility] for [facility] & [facility] Physician [facility] HospitalComment on above:Performed By: #### DIFF CBC, CMP ####[address] [address] USAMonocytes/100 WBC (Bld)6 % Normal2-11The [facility] Physician [facility] HospitalComment on above:Performed By: #### DIFF CBC, CMP ####[address] [address] USAMyelocytes2 %High0-0The [facility] Physician [facility] HospitalComment on above:Performed By: #### DIFF CBC, CMP ####[address] [address] USAPlatelet EstimateNormalNormalNormJay Hospital Physician [facility] HospitalComment on above:Performed By: #### DIFF CBC, CMP ####[address] [address] USAPlatelet mean volume (Bld) [Entitic vol]7.7 fLNormal6.3-10.7The [facility] Physician [facility] HospitalComment on above:Performed By: #### DIFF CBC, CMP ####[address] [address] USAPlatelet MorphologyNormalNormalNormJay Hospital Physician [facility] HospitalComment on above:Result Comment: PERFORMED BY:[address] [place], [place] [phone] MEDICAL DIRECTORLANDRY LEE M.D.Performed By: #### DIFF CBC, CMP ####[address] [address] [place] Platelets (Bld) [#/Vol]317 10*3/yHSktuzz982-673Xxb [facility] Physician [facility] Comment on above:Performed By: #### DIFF CBC, CMP ####[address] [address] USAPolychromasiaSlightNoNovant Health [facility] Physician GroupComment on above:Performed By: #### DIFF CBC, CMP ####[place] [address] USARBC (Bld) [#/Vol]3.76 10*6/uLNormal3.60-5.00The [facility] Physician GroupComment on above:Performed By: #### DIFF CBC, CMP ####[place] [address] USASegmented neutrophils/100 WBC (Bld)83 %High 50-70The [facility] Physician GroupComment on above:Performed By: #### DIFF CBC, CMP ####[place] [address] USAWBC (Bld) [#/Vol]21.9 10*3/uLHigh3.8-11.6The [facility] Physician GroupComment on above:Performed By: #### DIFF CBC, CMP ####[place] [address] USAWhite Blood Count21.9 [CFU]/mLHigh3.8-11.6The [facility] Physician GroupComment on above:Performed By: #### DIFF CBC, CMP ####[place] [address] USAGlucose Poct Glucometerson 82-34-9078Vpkvtaq2Gmm8: Cleaned MeterNoNovant Health [facility] Physician [facility] HospitalComment on above:Result Comment: PERFORMED BY:[address] [place], [place] [phone] MEDICAL TONYA LEE M.D.Performed By: #### GLULS ####Point of Care testing, Glucose [Mass/Vol]191 mg/dLOrlando Health Winnie Palmer [facility] for [facility] Physician [facility] HospitalComment on above: Result Comment: Random Glucose Reference Range is dependent on time and content of last meal. Glucose of more than 200 mg/dL in a nonstressed, ambulatory subject supports the diagnosis of Diabetes Mellitus.Performed By: #### GLULS ####Point of Care testing,Glucose [Mass/Vol]184 mg/dLNoNovant Health [facility] Physician GroupComment on above:Result Comment: Random Glucose Reference Range is dependent on time and content of last meal. Glucose of more than 200 mg/dL in a nonstressed, ambulatory subject supports the diagnosis of Diabetes Radha litus.PERFORMED BY:[place] [address] [place], [place] [phone] MEDICAL TONYA LEE M.D.Performed By: #### GLULS ####Point of Care testing,Glucose [Mass/Vol]177 mg/dLNoNovant Health [facility] Physician GroupComment on above:Result Comment: Random Glucose Reference Range is dependent on time and content of last meal. Glucose of more than 200 mg/dL in a nonstressed, ambulatory subject supports the diagnosis of Diabetes Mellitus.PERFORMED BY:[address] [place], [place] [phone] MEDICAL TONYA LEE M.D.Performed By: #### GLULS ####Point of Care testing,Glucose [Mass/Vol]145 mg/dLNoNovant Health [facility] Physician GroupComment on above:Result Comment: Random Glucose Reference Range is dependent on time and content of last meal. Glucose of more than 200 mg/dL in a nonstressed, ambulatory subject supports the diagnosis of Diabetes Mellitus.PERFORMED BY:[place] [address] [address] [place], [place] [phone] MEDICAL TONYA LEE M.D.Performed By: #### GLULS ####Point of Care testing, Protein [Mass/volume] in Serum or PlasmaOrdered By: Xavier Mello on 05-13-2025 Protein [Mass/Vol]6.2 g/dLLow6.4-8.9[facility] HospitalComment on above:Performed By: #### DIFF CBC, CMP ####[address] [address] USASerum globulin measurement by calculation (mass/volume)Ordered By: Xavier Mello on 45-32-6664Zymufjjx (S) [Mass/Vol]3.6 g/dLNormalMercy Health West HospitalComment on above:Performed By: #### DIFF CBC, CMP ####[address] [address] USASerum or plasma albumin/globulin mass ratioOrdered By: Xavier Mello on 14-70-9588Fdgalhd/Globulin [Mass ratio]0.7 {ratio}NormalMercy Health West HospitalComment on above:Performed By: #### DIFF CBC, CMP ####[address] [address] USAComprehensive Metabolic Panelon 89-13-0496Uaxwhng [Mass/Vol]2.6 g/dLLow3.5-5.7The [facility] Physician GroupComment on above:Performed By: #### CMP, DIFF CBC ####[address] [address] USAAlbumin/Globulin [Mass ratio]0.7 {ratio}NormalAdventhealth Kissimmee Physician GroupComment on above: Performed By: #### CMP, DIFF CBC ####[address] [address] USAALP [Catalytic activity/Vol]121 U/DHmfu37-397Uxp [facility] Physician GroupComment on above:Performed By: #### CMP, DIFF CBC ####[address] [address] USAALT [Catalytic activity/Vol]5 U/LLow7-52The [facility] Physician GroupComment on above:Performed By: #### CMP, DIFF CBC ####[address] [address] USAAnion gap [Moles/Vol]13.0 mmol/LNormal6.0-15.0 The [facility] Physician GroupComment on above:Performed By: #### CMP, DIFF CBC ####[address] [address] USAAST [Catalytic activity/Vol]6 U/KOof29-79Tyo [facility] Physician GroupComment on above:Performed By: #### CMP, DIFF CBC ####[address] [place] [address] USABilirubin [Mass/Vol]0.3 mg/dLNormal0.3-1.0The [facility] Physician GroupComment on above:Performed By: #### CMP, DIFF CBC ####[place] [id number] USACalcium [Mass/Vol]8.4 mg/dLLow8.6-10.3The [facility] Physician GroupComment on above: Performed By: #### CMP, DIFF CBC ####[place] [id number] USAChloride [Moles/Vol]99 mmol/DFlyujt33-001Kwy [facility] Physician GroupComment on above:Performed By: #### CMP, DIFF CBC ####[place] [id number] USACO2 [Moles/Vol]26.7 mmol/MSjsrjd08.0-31.0The [facility] Physician GroupComment on above:Performed By: #### CMP, DIFF CBC ####[place] [id number] USACreatinine [Mass/Vol]3.28 mg/dLSignificant change down0.60-1.20The [facility] Physician GroupComment on above:Performed By: #### CMP, DIFF CBC ####[place] [id number] USACreatinine Clr Calc Bnmqotga29.81NormalThSt. Luke's [facility] Physician Group Comment on above:Result Comment: PERFORMED BY:[address] [place], [place] [phone] MEDICAL TONYA LEE M.D.Performed By: #### CMP, DIFF CBC ####[address] [address] USAGFR/1.73 sq M.predicted MDRD (S/P/Bld) [Vol rate/Area]16.095 mL/min/{1.73_m2}NormalThe [facility] Physician GroupComment on above:Performed By: #### CMP, DIFF CBC ####[place] [address] [place] Globulin (S) [Mass/Vol]3.5 g/dLNoNovant Health Ballantyne [facility] Center Physician GroupComment on above:Performed By: #### CMP, DIFF CBC ####[place] [address] USAGlucose [Mass/Vol]162 mg/jYMidg03-526Twk [facility] Physician GroupComment on above:Result Comment: Random Glucose Reference Range is dependent on time and content of last meal. Glucose of more than 200 mg/dL in a nonstressed, ambulatory subject supports the diagnosis of Diabetes Mellitus. ADA recommended reference rangePerformed By: #### CMP, DIFF CBC ####[place] [address] [place] Potassium [Moles/Vol]3.7 mmol/LNormal3.5-5.1The [facility] Physician GroupComment on above:Performed By: #### CMP, DIFF CBC ####[place] [address] USAProtein [Mass/Vol]6.1 g/dLLow6.4-8.9 The [facility] Physician GroupComment on above:Performed By: #### CMP, DIFF CBC ####[place] [address] USASodium [Moles/Vol]135 mmol/MDit709-217Acm [facility] Physician GroupComment on above: Performed By: #### CMP, DIFF CBC ####[place] [address] USAUrea nitrogen [Mass/Vol]21 mg/dLNormal7-25The [facility] Physician GroupComment on above:Performed By: #### CMP, DIFF CBC ####[place] [id number] USADiff and CBCon 33-83-8415Wssceduzqxir Ql (Bld)ModerateNoNovant Health Ballantyne Medical Center Physician GroupComment on above:Performed By: #### CMP, DIFF CBC ####[place] [address] USABand form neutrophils/100 WBC (Bld)7 %High0-5The [facility] Physician GroupComment on above:Performed By: #### CMP, DIFF CBC ####[address] [address] USABasophils/100 WBC (Bld)1 %Normal0-2The [facility] Physician GroupComment on above:Performed By: #### CMP, DIFF CBC ####[place] [id number] USAErythrocyte distribution width (RBC) [Ratio]21.3 %High11.9-15.3The [facility] Physician GroupComment on above: Performed By: #### CMP, DIFF CBC ####[place] [id number] USAGiant Platelet Tally1 /100{WBC}NormalThe [facility] Physician GroupComment on above:Performed By: #### CMP, DIFF CBC ####[place] [id number] USAHematocrit (Bld) [Volume fraction]28.7 %Low34.0-46.4The [facility] Physician GroupComment on above:Performed By: #### CMP, DIFF CBC ####[place] [id number] USAHemoglobin (Bld) [Mass/Vol]8.7 g/dLLow 11.8-15.4The [facility] Physician GroupComment on above:Performed By: #### CMP, DIFF CBC ####[place] [id number] USAHypochromasiaSlightNormalThe [facility] Physician GroupComment on above: Performed By: #### CMP, DIFF CBC ####[place] [id number] USALymphocytes/100 WBC (Bld)8 %Vrt27-97Dqs [facility] Physician GroupComment on above:Performed By: #### CMP, DIFF CBC ####[place] [id number] USAMCH (RBC) [Entitic mass]22.8 pgLow24.7-34.3The [facility] Physician GroupComment on above:Performed By: #### CMP, DIFF CBC ####[address] [address] USAMCV (RBC) [Entitic vol]75.2 eCNut57-909Kym [facility] Physician GroupComment on above:Performed By: #### CMP, DIFF CBC ####[address] [address] USAMean Corpuscular HGB Conc30.4 g/dLLow32.0-35.0The [facility] Physician GroupComment on above:Performed By: #### CMP, DIFF CBC ####[address] [address] USAMicrocytosisSlightNoNovant Health Ballantyne Medical Center Physician GroupComment on above:Performed By: #### CMP, DIFF CBC ####[address] [address] USAMonocytes/100 WBC (Bld)4 % Normal2-11The [facility] Physician GroupComment on above:Performed By: #### CMP, DIFF CBC ####[address] [address] USAMyelocytes1 %High0-0The [facility] Physician GroupComment on above:Performed By: #### CMP, DIFF CBC ####[address] [address] USAPlatelet EstimateNormalNormalNormJay Hospital Physician GroupComment on above:Performed By: #### CMP, DIFF CBC ####[address] [address] USAPlatelet mean volume (Bld) [Entitic vol]7.8 fLNormal6.3-10.7The [facility] Physician GroupComment on above:Performed By: #### CMP, DIFF CBC ####[address] [address] USAPlatelet MorphologyNormalNormalNormJay Hospital Physician GroupComment on above:Result Comment: PERFORMED BY:[address] [phone] MEDICAL DIRECTORLANDRY LEE M.D.Performed By: #### CMP, DIFF CBC ####[address] [address] [place] Platelets (Bld) [#/Vol]326 10*3/yGKtraku991-473Qct [facility] Comment on above:Performed By: #### CMP, DIFF CBC ####[address] [address] USAPoikilocytosisModerateNoNovant Health Ballantyne [facility] Center Physician GroupComment on above:Performed By: #### CMP, DIFF CBC ####[address] [address] [place] PolychromasiaSlightOrlando Health [facility] Physician GroupComment on above:Performed By: #### CMP, DIFF CBC ####[place] [id number] USARBC (Bld) [#/Vol]3.82 10*6/uLNormal3.60-5.00The [facility] Physician GroupComment on above:Performed By: #### CMP, DIFF CBC ####[address] [address] [place] RouleauxSlightOrlando Health Winn[facility] Palmer [facility] Physician GroupComment on above:Performed By: #### CMP, DIFF CBC ####[place] [id number] USASegmented neutrophils/100 WBC (Bld)80 %Uqmh42-35Wrd [facility] Physician GroupComment on above:Performed By: #### CMP, DIFF CBC ####[address] [address] USAStomatocytesModerate NormalThe [facility] Physician GroupComment on above:Performed By: #### CMP, DIFF CBC ####[place] [id number] [place] WBC (Bld) [#/Vol]20.7 10*3/uLHigh3.8-11.6The [facility] Physician GroupComment on above:Performed By: #### CMP, DIFF CBC ####[facility] [address] [place] [address] USAWhite Blood Count20.7 [CFU]/mLHigh3.8-11.6The [facility] Physician GroupComment on above:Performed By: #### CMP, DIFF CBC ####[facility] [address] [place] [address] USAGlucose Poct Glucometerson 58-97-9282Ouxuanl [Mass/Vol]114 mg/dLNoNovant Health Ballantyne [facility] Center Physician GroupComment on above:Result Comment: Random Glucose Reference Range is dependent on time and content of last meal. Glucose of more than 200 mg/dL in a nonstressed, ambulatory subject supports the diagnosis of Diabetes Radha litus.PERFORMED BY:[address] [place], [place] [phone] MEDICAL TONYA LEE M.D.Performed By: #### GLULS ####Point of Care testing,Glucose [Mass/Vol]139 mg/dLNoNovant Health Ballant[facility] Center Physician GroupComment on above:Result Comment: Random Glucose Reference Range is dependent on time and content of last meal. Glucose of more than 200 mg/dL in a nonstressed, ambulatory subject supports the diagnosis of Diabetes Mellitus.PERFORMED BY:[place] [address] [address] [place], [place] [phone] MEDICAL TONYA LEE M.D.Performed By: #### GLULS ####Point of Care testing,Glucose [Mass/Vol]176 mg/dLNoNovant Health Ballant[facility] Center Physician GroupComment on above:Result Comment: Random Glucose Reference Range is dependent on time and content of last meal. Glucose of more than 200 mg/dL in a nonstressed, ambulatory subject supports the diagnosis of Diabetes Mellitus.PERFORMED BY:[address] [place], [place] [phone] MEDICAL TONYA LEE M.D.Performed By: #### GLULS ####Point of Care testing, Poikilocytosis [Presence] in Blood by Light microscopyOrdered By: Xavier Mello on 47-95-4213Zgqvfqgtdmyrtj LM Ql (Bld)[facility] Rouleaux [Presence] in Blood by Light microscopyOrdered By: Xavier Riaz on 81-00-2844Ztwsuuld LM Ql (Bld)[facility] ColumbusComplete Blood Count Auto Diffon [id number] (Bld) [#/Vol]0.1 10*3/uLNormal 0.0-0.2The [facility] Physician GroupComment on above:Result Comment: PERFORMED BY:[address]anaAMI, [place] [phone] MEDICAL DIRECTORLANDRY LEE M.D.Performed By: #### CMP, CBC ####[place] [address] [place] Basophils/100 WBC (Bld)0.3 %Normal.The [facility] Physician GroupComment on above:Performed By: #### CMP, CBC ####[place] [id number] USAEosinophils (Bld) [#/Vol]0.1 10*3/uLNormal0.0-0.45 The [facility] Physician GroupComment on above:Performed By: #### CMP, CBC ####[place] [address] [place] Eosinophils/100 WBC (Bld)0.4 %Normal.The [facility] Physician GroupComment on above:Performed By: #### CMP, CBC ####[place] [id number] USAErythrocyte distribution width (RBC) [Ratio]20.8 % High11.9-15.3The [facility] Physician GroupComment on above:Performed By: #### CMP, CBC ####[place] [id number] USAHematocrit (Bld) [Volume fraction]26.6 %Low34.0-46.4The [facility] Physician GroupComment on above:Performed By: #### CMP, CBC ####[place] [address] USAHemoglobin (Bld) [Mass/Vol]8.1 g/dLLow 11.8-15.4The [facility] Physician GroupComment on above:Performed By: #### CMP, CBC ####[place] [address] [place] Lymphocytes (Bld) [#/Vol]2.0 10*3/uLNormal1.00-4.8The [facility] Comment on above:Performed By: #### CMP, CBC ####[place] [id number] USALymphocytes/100 WBC (Bld)9.7 %Normal. The [facility] Physician GroupComment on above:Performed By: #### CMP, CBC ####[place] [address] USAMCH (RBC) [Entitic mass]22.9 pgLow24.7-34.3The [facility] Physician GroupComment on above:Performed By: #### CMP, CBC ####[address] [address] USAMCV (RBC) [Entitic vol]75.0 vPTlh20-648Gms [facility] Physician GroupComment on above:Performed By: #### CMP, CBC ####[place] [id number] USAMean Corpuscular HGB Conc30.5 g/dLLow32.0-35.0The [facility] Physician GroupComment on above:Performed By: #### CMP, CBC ####[place] [id number] USAMonocytes (Bld) [#/Vol]1.1 10*3/uLHigh0.0-0.8The [facility] Physician GroupComment on above:Performed By: #### CMP, CBC ####[place] [address] USAMonocytes/100 WBC (Bld)5.2 % Normal.The [facility] Physician GroupComment on above:Performed By: #### CMP, CBC ####[address] [address] [place] Neutrophils (Bld) [#/Vol]17.5 10*3/uLHigh1.8-7.7The [facility] Comment on above:Performed By: #### CMP, CBC ####[address] [address] USANeutrophils/100 WBC (Bld)84.4 %Normal. The [facility] Physician GroupComment on above:Performed By: #### CMP, CBC ####[address] [address] USANRBC% 0.0 /100{WBC}Normal0-0.5The [facility] Physician GroupComment on above:Performed By: #### CMP, CBC ####[address] [address] USAPlatelet mean volume (Bld) [Entitic vol]8.0 fLNormal6.3-10.7The [facility] Physician GroupComment on above:Performed By: #### CMP, CBC ####[address] [address] [place] Platelets (Bld) [#/Vol]305 10*3/pYQicwfh558-074Luj [facility] Comment on above:Performed By: #### CMP, CBC ####[address] [address] USARBC (Bld) [#/Vol]3.54 10*6/uLLow 3.60-5.00The [facility] Physician GroupComment on above:Performed By: #### CMP, CBC ####[address] [address] USAWBC (Bld) [#/Vol]20.8 10*3/uLHigh3.8-11.6The [facility] Physician GroupComment on above:Performed By: #### CMP, CBC ####[address] [address] USAWhite Blood Count20.8 [CFU]/mLHigh3.8-11.6The [facility] Physician GroupComment on above:Performed By: #### CMP, CBC ####[address] [address] [facility] Comprehensive Metabolic Panelon 28-27-8543Jbbcmks [Mass/Vol]2.5 g/dLLow3.5-5.7 The [facility] Physician GroupComment on above:Performed By: #### CMP, CBC ####[address] [address] [place] Albumin/Globulin [Mass ratio]0.7 {ratio}NormalThe [facility] Comment on above:Performed By: #### CMP, CBC ####[address] [address] USAALP [Catalytic activity/Vol]137 U/L Mmlc84-978Kie [facility] Physician GroupComment on above:Performed By: #### CMP, CBC ####[address] [address] USAALT [Catalytic activity/Vol]7 U/LNormal7-52The [facility] Physician GroupComment on above:Performed By: #### CMP, CBC ####[address] [address] USAAnion gap [Moles/Vol]14.1 mmol/LNormal6.0-15.0The [facility] Physician GroupComment on above:Performed By: #### CMP, CBC ####[address] [address] USAAST [Catalytic activity/Vol]7 U/NXim09-77Vwt [facility] Physician GroupComment on above:Performed By: #### CMP, CBC ####[address] [address] USABilirubin [Mass/Vol]0.3 mg/dLNormal0.3-1.0The [facility] Physician GroupComment on above:Performed By: #### CMP, CBC ####[address] [address] USACalcium [Mass/Vol]8.0 mg/dLLow8.6-10.3The [facility] Physician GroupComment on above: Performed By: #### CMP, CBC ####[place] [address] [place] [address] USAChloride [Moles/Vol]98 mmol/ITlojzg25-284Ccy [facility] Physician GroupComment on above:Performed By: #### CMP, CBC ####[address] [address] USACO2 [Moles/Vol]26.5 mmol/JCgayui98.0-31.0The [facility] Physician GroupComment on above:Performed By: #### CMP, CBC ####[address] [address] USACreatinine [Mass/Vol]2.28 mg/dLSignificant change down0.60-1.20The [facility] Physician GroupComment on above:Performed By: #### CMP, CBC ####[address] [address] USACreatinine Clr Calc Uhptjqmi02.05NormJay Hospital Physician GroupComment on above:Result Comment: PERFORMED BY:[address] [place], [place] [phone] MEDICAL TONYA LEE M.D.Performed By: #### CMP, CBC ####[address] [address] USAGFR/1.73 sq M.predicted MDRD (S/P/Bld) [Vol rate/Area]24.901 mL/min/{1.73_m2}NormalThe [facility] Physician GroupComment on above:Performed By: #### CMP, CBC ####[address] [address] USAGlobulin (S) [Mass/Vol]3.5 g/dLOrlando Health Winnie Palmer Hospital for [facility] & Babies Physician GroupComment on above:Performed By: #### CMP, CBC ####[address] [address] USAGlucose [Mass/Vol]194 mg/rKFlic60-755Xvx [facility] Physician GroupComment on above:Result Comment: Random Glucose Reference Range is dependent on time and content of last meal. Glucose of more than 200 mg/dL in a nonstressed, ambulatory subject supports the diagnosis of Diabetes Mellitus. ADA recommended reference rangePerformed By: #### CMP, CBC ####[place] [id number] USAPotassium [Moles/Vol]3.6 mmol/LNormal3.5-5.1The [facility] Physician GroupComment on above:Performed By: #### CMP, CBC ####[place] [address] USAProtein [Mass/Vol]6.0 g/dLLow6.4-8.9 The [facility] Physician GroupComment on above:Performed By: #### CMP, CBC ####[place] [id number] USASodium [Moles/Vol]135 mmol/CFbh866-233Wue [facility] Physician [facility] HospitalComment on above: Performed By: #### CMP, CBC ####[place] [id number] USAUrea nitrogen [Mass/Vol]15 mg/dLNormal7-[facility] Physician [facility] HospitalComment on above:Performed By: #### CMP, CBC ####[place] [id number] USAGlucose Poct Glucometerson 91-59-0790Bwmpmcl [Mass/Vol]174 mg/dLOrlando Health Winn[facility] Physician [facility] HospitalComment on above:Result Comment: Random Glucose Reference Range is dependent on time and content of last meal. Glucose of more than 200 mg/dL in a nonstressed, ambulatory subject supports the diagnosis of Diabetes Radha litus.PERFORMED BY:[place] [address] [place], [place] [phone] MEDICAL TONYA LEE M.D.Performed By: #### GLULS ####Point of Care testing,Llmrdms1Pnf6: Cleaned MeterNoNovant Health Ballantyne Medical Center Physician [facility] HospitalComment on above:Result Comment: PERFORMED BY:[place] [address] [place], [place] [phone] MEDICAL TONYA LEE M.D.Performed By: #### GLULS ####Point of Care testing,Glucose [Mass/Vol]160 mg/dLOrlando Health Winn[facility] Hospital for [facility] Bab[facility] Physician GroupComment on above:Result Comment: Random Glucose Reference Range is dependent on time and content of last meal. Glucose of more than 200 mg/dL in a nonstressed, ambulatory subject supports the diagnosis of Diabetes Mellitus.Performed By: #### GLULS ####Point of Care testing,Dsexeng0Aec7: Cleaned MeterOrlando Health Winnie Palmer Hospital for Women & Babies Physician GroupComment on above:Result Comment: PERFORMED BY:[address] [place]CassieTH[place]MON[place], [place] [phone] MEDICAL DIRECTORLANDRY LEE M.D.Performed By: #### GLULS ####Point of Care testing,Glucose [Mass/Vol]164 mg/dLOrlando Health Winn[facility] Palmer Hospital for [facility] Bab[facility] Physician GroupComment on above:Result Comment: Random Glucose Reference Range is dependent on time and content of last meal. Glucose of more than 200 mg/dL in a nonstressed, ambulatory subject supports the diagnosis of Diabetes Mellitus.Performed By: #### GLULS ####Point of Care testing,Xrwcstg9Cbm3: Cleaned [facility] Physician GroupComment on above:Result Comment: PERFORMED BY:[address] [place]Cassie[place], [place] [phone] MEDICAL TONYA LEE M.D.Performed By: #### GLULS ####Point of Care testing,Glucose [Mass/Vol]222 mg/dLOrlando Health [facility] for [facility] Physician GroupComment on above:Result Comment: Random Glucose Reference Range is dependent on time and content of last meal. Glucose of more than 200 mg/dL in a nonstressed, ambulatory subject supports the diagnosis of Diabetes Mellitus.Performed By: #### GLULS ####Point of Care testing,Aerobic Cultureon [id number] Culture NormalThe [facility] Physician GroupComment on above:Performed By: #### AERC ####[address] [address] USAAerobic cultureOrdered By: Juan Carlos Chavez on 38-29-2867Dvvbsllv identified Aer cx Nom (Unsp spec)Escherichia coliAbBarberton Citizens HospitalBacteria identified Aer cx Nom (Unsp spec)Enterococcus aviumAbBarberton Citizens HospitalAnaerobic cultureOrdered By: Juan Carlos Chavez on 80-79-2200Qbdppcei identified Anaer cx Nom (Unsp spec)[facility] Comprehensive Metabolic Panelon 38-45-1122Bfbqpph [Mass/Vol]2.5 g/dLLow3.5-5.7 The [facility] Physician GroupComment on above:Performed By: #### SCAN CBC, CMP ####[place] [address] [place] Albumin/Globulin [Mass ratio]0.8 {ratio}NormalThe [facility] Comment on above:Performed By: #### SCAN CBC, CMP ####[place] [address] USAALP [Catalytic activity/Vol]133 U/L Osrs34-262Mwg [facility] Physician GroupComment on above:Performed By: #### SCAN CBC, CMP ####[place] [address] USAALT [Catalytic activity/Vol]6 U/LLow7-52The [facility] Physician GroupComment on above:Performed By: #### SCAN CBC, CMP ####[place] [address] USAAnion gap [Moles/Vol]13.8 mmol/LNormal6.0-15.0 The [facility] Physician GroupComment on above:Performed By: #### SCAN CBC, CMP ####[place] [address] USAAST [Catalytic activity/Vol]10 U/SHfo43-72Rwu [facility] Physician GroupComment on above:Performed By: #### SCAN CBC, CMP ####[address] [address] USABilirubin [Mass/Vol]0.4 mg/dLNormal0.3-1.0The [facility] Physician [facility] HospitalComment on above:Performed By: #### SCAN CBC, CMP ####[address] [address] USACalcium [Mass/Vol]8.0 mg/dLLow8.6-10.3The [facility] Physician [facility] HospitalComment on above: Performed By: #### SCAN CBC, CMP ####[address] [address] USAChloride [Moles/Vol]96 mmol/CRel96-009Agl [facility] Physician GroupComment on above:Performed By: #### SCAN CBC, CMP ####[place] [address] USACO2 [Moles/Vol]25.5 mmol/STxtogd58.0-31.0The [facility] Physician GroupComment on above:Performed By: #### SCAN CBC, CMP ####[place] [address] USACreatinine [Mass/Vol]3.01 mg/dLSignificant change down0.60-1.20The [facility] Physician GroupComment on above:Performed By: #### SCAN CBC, CMP ####[place] [address] [place] Creatinine Clr Calc Rxrqukha42.68NoNovant Health Ballant[facility] Center Physician [facility] HospitalComment on above:Result Comment: PERFORMED BY:[address] [place], [place] [phone] MEDICAL TONYA LEE M.D.Performed By: #### SCAN CBC, CMP ####[address] [address] USAGFR/1.73 sq M.predicted MDRD (S/P/Bld) [Vol rate/Area]17.843 mL/min/{1.73_m2}NormalThe [facility] Medical CenterComment on above:Performed By: #### SCAN CBC, CMP ####[address] [address] USAGlobulin (S) [Mass/Vol]3.2 g/dLNormalThe [place] Physician GroupComment on above:Performed By: #### SCAN CBC, CMP ####[address] [address] USAGlucose [Mass/Vol]113 mg/yFEqbt57-100Zur [facility] Physician GroupComment on above: Result Comment: Random Glucose Reference Range is dependent on time and content of last meal. Glucose of more than 200 mg/dL in a nonstressed, ambulatory subject supports the diagnosis of Diabetes Mellitus. ADA recommended reference rangePerformed By: #### SCAN CBC, CMP ####[address] [address] USAPotassium [Moles/Vol]3.3 mmol/LLow3.5-5.1The [facility] Physician GroupComment on above:Performed By: #### SCAN CBC, CMP ####[address] [address] USAProtein [Mass/Vol]5.7 g/dLLow6.4-8.9The [facility] Physician GroupComment on above: Performed By: #### SCAN CBC, CMP ####[address] [address] USASodium [Moles/Vol]132 mmol/MOgd184-162Zfd [facility] Physician GroupComment on above:Performed By: #### SCAN CBC, CMP ####[address] [address] USAUrea nitrogen [Mass/Vol]27 mg/dLHigh7-25The [facility] Physician GroupComment on above: Performed By: #### SCAN CBC, CMP ####[address] [address] USAGlucose Poct Glucometerson 59-21-3929Qitvzvx [Mass/Vol]162 mg/dLNoNovant Health Ballantyne [facility] Center Physician GroupComment on above:Result Comment: Random Glucose Reference Range is dependent on time and content of last meal. Glucose of more than 200 mg/dL in a nonstressed, ambulatory subject supports the diagnosis of Diabetes Mellitus.PERFORMED BY:[address] [place], [place] [phone] MEDICAL TONYA LEE M.D.Performed By: #### GLULS ####Point of Care testing, Kpiyoke4Fgz6: Cleaned MeterNoNovant Health Ballantyne Medical Center Physician [facility] HospitalComment on above: Result Comment: PERFORMED BY:[place] [address] [place], [place] [phone] MEDICAL TONYA LEE M.D.Performed By: #### GLULS ####Point of Care testing,Glucose [Mass/Vol]122 mg/dLOrlando Health Winn[facility] for [facility] Physician GroupComment on above:Result Comment: Random Glucose Reference Range is dependent on time and content of last meal. Glucose of more than 200 mg/dL in a nonstressed, ambulatory subject supports the diagnosis of Diabetes Mellitus.Performed By: #### GLULS ####Point of Care testing,Glucose [Mass/Vol]92 mg/dLOrlando Health [facility] Physician GroupComment on above:Result Comment: Random Glucose Reference Range is dependent on time and content of last meal. Glucose of more than 200 mg/dL in a nonstressed, ambulatory subject supports the diagnosis of Diabetes Mellitus.PERFORMED BY:[address] [place], [place] [phone] MEDICAL TONYA LEE M.D.Performed By: #### GLULS ####Point of Care testing,Glucose [Mass/Vol]130 mg/dLOrlando Health Winnie Palmer Hospital for Women & Babies Physician GroupComment on above:Result Comment: Random Glucose Reference Range is dependent on time and content of last meal. Glucose of more than 200 mg/dL in a nonstressed, ambulatory subject supports the diagnosis of Diabetes Mellitus.PERFORMED BY:[address] [place], [place] [phone] MEDICAL TONYA LEE M.D.Performed By: #### GLULS ####Point of Care testing,Gram stain microscopy Ordered By: Juan Carlos Chavez on 00-56-3343Iypbtyevszv observation Gram stain Nom (Unsp spec)[facility] HospitalLon [id number] [facility] Physician [facility] HospitalNo Panel InformationOrdered By: Juan Carlos Chavez on 05-10-2025 Miscellaneous Pathology TestSee commentMercy Health West HospitalComment on above:See report. Scanned copy available in EMR.Ovalocytes [Presence] in Blood by Light microscopyOrdered By: Xavier Mello on 96-27-1217Czrsnghylg LM Ql (Bld)[facility] ColumbusPathology Request for Lab Corpon 13-00-0748Gbmesuert Request for Lab CorpOrlando Health [facility] for [facility] Physician Group Comment on above:Order Comment: FRESH SKIN- ABDOMENResult Comment: See report. Scanned copy available in EMR.PERFORMED BY:[address] [place], [place] [phone] MEDICAL DIRECTORLANDRY LEE M.D.Performed By: #### PATH TO [facility] ####[place] [id number] USAPlatelets Large [Presence] in Blood by Light microscopyOrdered By: Xavier Mello on 91-63-3297Rafebtqjv Large LM Ql (Bld)[facility] Hospitalcan and CBCon 05-10-2025 Anisocytosis Ql (Bld)[facility] CampusComment on above: Performed By: #### SCAN CBC, CMP ####[place] [id number] USABasophils (Bld) [#/Vol]0.1 10*3/uLNormal0.0-0.2The [facility] Physician [facility] HospitalComment on above:Performed By: #### SCAN CBC, CMP ####[place] [id number] [place] Basophils/100 WBC (Bld)0.5 %Normal.The [facility] Physician GroupComment on above:Performed By: #### SCAN CBC, CMP ####[place] [address] USAEosinophils (Bld) [#/Vol]0.3 10*3/uLNormal 0.0-0.45The [facility] Physician [facility] HospitalComment on above:Performed By: #### SCAN CBC, CMP ####[address] [address] USAEosinophils/100 WBC (Bld)1.2 %Normal.The [facility] Physician GroupComment on above:Performed By: #### SCAN CBC, CMP ####[address] [address] USAErythrocyte distribution width (RBC) [Ratio] 20.8 %High11.9-15.3The [facility] Physician GroupComment on above:Performed By: #### SCAN CBC, CMP ####[address] [address] USAHematocrit (Bld) [Volume fraction]28.0 %Low34.0-46.4The [facility] Physician GroupComment on above:Performed By: #### SCAN CBC, CMP ####[address] [address] USAHemoglobin (Bld) [Mass/Vol]8.7 g/dLLow11.8-15.4The [facility] Physician GroupComment on above: Performed By: #### SCAN CBC, CMP ####[address] [address] USAHypochromasiaModerateNormJay Hospital Physician GroupComment on above:Performed By: #### SCAN CBC, CMP ####[address] [address] USALarge PlateletsSlightNoNovant Health Ballantyne Medical Center Physician GroupComment on above:Result Comment: PERFORMED BY:[address] [place], [place] [phone] MEDICAL TONYA LEE M.D.Performed By: #### SCAN CBC, CMP ####[address] [address] USALymphocytes (Bld) [#/Vol]1.6 10*3/uLNormal1.00-4.8The [facility] Physician GroupComment on above:Performed By: #### SCAN CBC, CMP ####[address] [address] USALymphocytes/100 WBC (Bld)7.6 % Normal.The [facility] Physician GroupComment on above:Performed By: #### SCAN CBC, CMP ####[place] [id number] [facility] ([facility]BC) [Entitic mass]23.1 pgLow24.7-34.3The [facility] Comment on above:Performed By: #### SCAN CBC, CMP ####[address] (RBC) [Entitic vol]74.6 fLLow 80-100The [facility] Physician [facility] HospitalComment on above:Performed By: #### SCAN CBC, CMP ####[place] [address] [place] Mean Corpuscular HGB Conc31.0 g/dLLow32.0-35.0The [facility] Phys[facility] Comment on above:Performed By: #### SCAN CBC, CMP ####[place] [address] USAMicrocytosisSlightNormalThe [facility] Physician GroupComment on above:Performed By: #### SCAN CBC, CMP ####[place] [address] USAMonocytes (Bld) [#/Vol]1.6 10*3/uLHigh0.0-0.8The [facility] Physician GroupComment on above: Performed By: #### SCAN CBC, CMP ####[place] [address] USAMonocytes/100 WBC (Bld)7.6 %Normal.The [facility] Physician GroupComment on above:Performed By: #### SCAN CBC, CMP ####[place] [address] USANeutrophils (Bld) [#/Vol]18.0 10*3/uLHigh1.8-7.7The [facility] Physician GroupComment on above: Performed By: #### SCAN CBC, CMP ####[place] [address] USANeutrophils/100 WBC (Bld)83.1 %Normal.The [facility] Physician GroupComment on above:Performed By: #### SCAN CBC, CMP ####[place] [address] USANRBC%0.0 /100{WBC} Normal0-0.5The [facility] Physician GroupComment on above:Performed By: #### SCAN CBC, CMP ####[place] [address] USAOvalocytesSlucas county health centerNoNovant Health Ballantyne Medical Center Physician GroupComment on above:Performed By: #### SCAN CBC, CMP ####[place] [address] USAPlatelet EstimateNormalNormalOrlando Health Winn[facility] for Women & Babies Physician GroupComment on above:Performed By: #### SCAN CBC, CMP ####[place] [address] USAPlatelet mean volume (Bld) [Entitic vol]7.7 fLNormal6.3-10.7The [facility] Physician GroupComment on above:Performed By: #### SCAN CBC, CMP ####[place] [address] USAPlatelets (Bld) [#/Vol]294 10*3/uLNormal 150-450The [facility] Physician GroupComment on above:Performed By: #### SCAN CBC, CMP ####[place] [address] USAPoikilocytosisSFirstHealth Moore Regional Hospital Physician GroupComment on above: Performed By: #### SCAN CBC, CMP ####[place] [address] USAPolychromasiaSFirstHealth Moore Regional Hospital Physician GroupComment on above:Performed By: #### SCAN CBC, CMP ####[place] [address] USARBC (Bld) [#/Vol]3.76 10*6/uL Normal3.60-5.00The [facility] Physician GroupComment on above:Performed By: #### SCAN CBC, CMP ####[address] [place] [address] USAStomatocytesSlightNormalThe [facility] Physician [facility] HospitalComment on above: Performed By: #### SCAN CBC, CMP ####[address] [address] USAWBC (Bld) [#/Vol]21.7 10*3/uLHigh3.8-11.6The [facility] Physician GroupComment on above:Performed By: #### SCAN CBC, CMP ####[address] [place] [address] USAWhite Blood Count21.7 [CFU]/mLHigh3.8-11.6The [facility] Physician [facility] HospitalComment on above:Performed By: #### SCAN CBC, CMP ####[address] [address] USAAppearance of UrineOrdered By: Oh Landa on 82-73-5362Amkavsjgjs (U)TurbidCritically abnormalCleMercy Health Springfield Regional Medical CenterComment on above:Order Comment: Name Collection Type:: Clean- Voided MidstreamPerformed By: #### CUU, ADDONUAPLUS ####[address] USABacteria [Presence] in Urine by AutomatedOrdered By: Oh Landa on 50-33-3171Kqsaigab Auto Ql (U)4+ [HPF]High None SeenMercy Health West HospitalBilirubin Test strip Ql (U)Ordered By: Oh Landa on 19-80-2293Etmbzlktc Ql (U)NegativeNegativeMercy Health West HospitalColor of Urine by AutoOrdered By: Oh Landa on 89-01-0689Ousyd (U)YellowNormalYellowMercy Health West HospitalComment on above:Order Comment: Name Collection Type:: Clean-Voided MidstreamPerformed By: #### CUU, ADDONUAPLUS ####[address] USAComprehensive Metabolic Panelon 60-20-0379Ahmeihl [Mass/Vol]2.5 g/dLLow 3.5-5.7The [facility] Physician GroupComment on above:Performed By: #### SCAN CBC, MG, CMP, PHOS ####[place] [address] USAAlbumin/Globulin [Mass ratio]0.8 {ratio}NormalThe [facility] Physician GroupComment on above:Performed By: #### SCAN CBC, MG, CMP, PHOS ####[place] [address] USAALP [Catalytic activity/Vol]130 U/CJvoa53-100Ifn [facility] Physician GroupComment on above:Performed By: #### SCAN CBC, MG, CMP, PHOS ####[place] [address] USAALT [Catalytic activity/Vol]6 U/LLow 7-52The [facility] Physician GroupComment on above:Performed By: #### SCAN CBC, MG, CMP, PHOS ####[place] [address] USAAnion gap [Moles/Vol]14.4 mmol/LNormal6.0-15.0The [facility] Physician GroupComment on above:Performed By: #### SCAN CBC, MG, CMP, PHOS ####[place] [address] USAAST [Catalytic activity/Vol]10 U/ENeh34-61Yxe [facility] Physician GroupComment on above: Performed By: #### SCAN CBC, MG, CMP, PHOS ####[address] [address] USABilirubin [Mass/Vol]0.3 mg/dLNormal 0.3-1.0The [facility] Physician GroupComment on above:Performed By: #### SCAN CBC, MG, CMP, PHOS ####[address] [address] USACalcium [Mass/Vol]8.1 mg/dLLow8.6-10.3The [facility] Physician Group Comment on above:Performed By: #### SCAN CBC, MG, CMP, PHOS ####[place] [address] USAChloride [Moles/Vol] 95 mmol/WLzx34-292Ylf [facility] Physician GroupComment on above:Performed By: #### SCAN CBC, MG, CMP, PHOS ####[place] [address] USACO2 [Moles/Vol]24.0 mmol/PLevvei30.0-31.0The [facility] Physician GroupComment on above:Performed By: #### SCAN CBC, MG, CMP, PHOS ####[place] [address] [place] Creatinine [Mass/Vol]4.84 mg/dLHigh0.60-1.20The [facility] Physician GroupComment on above:Performed By: #### SCAN CBC, MG, CMP, PHOS ####[place] [address] USACreatinine Clr Calc Pharmacy 12.13NoNovant Health Ballantyne Medical Center Physician GroupComment on above:Performed By: #### SCAN CBC, MG, CMP, PHOS ####[place] [address] USAGFR/1.73 sq M.predicted MDRD (S/P/Bld) [Vol rate/Area]10.090 mL/min/{1.73_m2}NormalAdventhealth Kissimmee Physician GroupComment on above:Performed By: #### SCAN CBC, MG, CMP, PHOS ####[place] [address] USAGlobulin (S) [Mass/Vol]3.1 g/dLNoNovant Health Ballantyne Medical Center Physician GroupComment on above:Performed By: #### SCAN CBC, MG, CMP, PHOS ####[place] [address] USAGlucose [Mass/Vol]131 mg/zFPdej13-294Ewj [facility] Physician GroupComment on above: Result Comment: Random Glucose Reference Range is dependent on time and content of last meal. Glucose of more than 200 mg/dL in a nonstressed, ambulatory subject supports the diagnosis of Diabetes Mellitus. ADA recommended reference rangePerformed By: #### SCAN CBC, MG, CMP, PHOS ####[address] [address] USAPotassium [Moles/Vol]3.4 mmol/LLow 3.5-5.1The [facility] Physician GroupComment on above:Performed By: #### SCAN CBC, MG, CMP, PHOS ####[address] [address] USAProtein [Mass/Vol]5.6 g/dLLow6.4-8.9The [facility] Physician Group Comment on above:Performed By: #### SCAN CBC, MG, CMP, PHOS ####[address] [address] USASodium [Moles/Vol]130 mmol/UAop594-381Izw [facility] Physician GroupComment on above:Performed By: #### SCAN CBC, MG, CMP, PHOS ####[address] [address] USAUrea nitrogen [Mass/Vol]56 mg/dLHigh7-25The [facility] Physician GroupComment on above:Performed By: #### SCAN CBC, MG, CMP, PHOS ####[address] [address] [place] Dipstick and Microscopicon 56-54-5802Pjcexhfw,Urine4+ [HPF]NormalNone SeenThe [facility] Physician GroupComment on above:Order Comment: Name Collection Type:: Clean-Voided MidstreamPerformed By: #### CUU, ADDONUAPLUS ####[address] USABilirubin,UrineNegativeNormal NegativeThe [facility] Physician GroupComment on above:Order Comment: Name Collection Type:: Clean-Voided MidstreamPerformed By: #### CUU, ADDONUAPLUS ####[address] USAGlucose Ql (U)50 mg/dLNormalNormalThe [facility] Physician GroupComment on above:Order Comment: Name Collection Type:: Clean-Voided MidstreamPerformed By: #### CUU, ADDONUAPLUS ####[address], [id number] USAHyaline Casts,UrineNoneNormal0-8The [facility] Physician GroupComment on above:Order Comment: Name Collection Type:: Clean-Voided MidstreamPerformed By: #### CUU, ADDONUAPLUS ####[address], [address] USAMucus,Urine2+ [LPF]Critically abnormalThe [facility] Physician GroupComment on above:Order Comment: Name Collection Type:: Clean- Voided MidstreamResult Comment: PERFORMED BY:[address] [place], [place] [phone] MEDICAL DIRECTORLANDRY LEE M.D.Performed By: #### CUU, ADDONUAPLUS ####[address], [place] USANitrite,UrineNegative NormalNegativeAdventhealth Kissimmee Physician GroupComment on above:Order Comment: Name Collection Type:: Clean-Voided MidstreamPerformed By: #### CUU, ADDONUAPLUS ####[address], [place]A[address] USAOccult Blood,Urine1+NormalNegativeThe [facility] Physician GroupComment on above:Order Comment: Name Collection Type:: Clean-Voided MidstreamResult Comment: PERFORMED BY:[address] [place], [place] [phone] MEDICAL TONYA LEE M.D.Performed By: #### CUU, ADDONUAPLUS ####[address] [address] USARBC,Kmtbr67-456Zxynrv9-6Etp [facility] Physician GroupComment on above:Order Comment: Name Collection Type:: Clean-Voided MidstreamPerformed By: #### CUU, ADDONUAPLUS ####[facility] [facility], [place] USASpecificy [place],Urine1.832Wqadhr4.001-1.030The [facility] Physician Group Comment on above:Order Comment: Name Collection Type:: Clean-Voided Midstream Performed By: #### CUU, ADDONUAPLUS ####[address], [place] USASquamous Epithelial Cell,Jtkwl5-0Tjcrox1-4Hrl [facility] Physician GroupComment on above:Order Comment: Name Collection Type:: Clean-Voided MidstreamPerformed By: #### CUU, ADDONUAPLUS ####[address] USAUrobilinogen,UrineNormalNormal NormalThe [facility] Physician GroupComment on above:Order Comment: Name Collection Type:: Clean-Voided MidstreamPerformed By: #### CUU, ADDONUAPLUS ####[address] [address] USAWBC CLUMP, UrineManyNormalNone SeenThe [facility] Physician GroupComment on above: Order Comment: Name Collection Type:: Clean-Voided MidstreamPerformed By: #### CUU, ADDONUAPLUS ####[address] [place] [address] USAWBC,UrineInnumerableNormal0-4The [facility] Physician GroupComment on above:Order Comment: Name Collection Type:: Clean-Voided MidstreamPerformed By: #### CUU, ADDONUAPLUS ####[address], [address] USAWhite Blood Cell Casts,Urine1-2NormalNone SeenThe [facility] Physician GroupComment on above:Order Comment: Name Collection Type:: Clean-Voided MidstreamPerformed By: #### CUU, ADDONUAPLUS ####[address] BW[address] USAEpithelial cells.squamous [#/area] in Urine sediment by Automated countOrdered By: Oh Landa on 27-91-1441Cljefobrge cells.squamous Auto (Urine sed) [#/Area]5-9 [HPF]High0-2 [facility] HospitalErythrocytes [#/area] in Urine sediment by Automated countOrdered By: Oh Landa on 88-06-8501HYD Auto (Urine sed) [#/Area]50-100 [HPF]High0-4FProMedica Defiance Regional HospitalGlucose Poct Glucometerson 42-01-8617Crlgzuk [Mass/Vol]180 mg/dLNoNovant Health Ballantyne Medical Center Physician GroupComment on above:Result Comment: Random Glucose Reference Range is dependent on time and content of last meal. Glucose of more than 200 mg/dL in a nonstressed, ambulatory subject supports the diagnosis of Diabetes Radha litus.PERFORMED BY:[address] [place], [place] [phone] MEDICAL TONYA LEE M.D.Performed By: #### GLULS ####Point of Care testing,Glucose [Mass/Vol]120 mg/dLNoNovant Health Ballantyne Medical Center Physician GroupComment on above:Result Comment: Random Glucose Reference Range is dependent on time and content of last meal. Glucose of more than 200 mg/dL in a nonstressed, ambulatory subject supports the diagnosis of Diabetes Mellitus.PERFORMED BY:[address] [place], [place] [phone] MEDICAL TONYA LEE M.D.Performed By: #### GLULS ####Point of Care testing,Glucose [Mass/Vol]136 mg/dLNoNovant Health Ballantyne Medical Center Physician GroupComment on above:Result Comment: Random Glucose Reference Range is dependent on time and content of last meal. Glucose of more than 200 mg/dL in a nonstressed, ambulatory subject supports the diagnosis of Diabetes Mellitus.PERFORMED BY:[address] [place], [place] [phone] MEDICAL TONYA LEE M.D.Performed By: #### GLULS ####Point of Care testing, Glucose [Mass/Vol]134 mg/dLNoNovant Health Ballantyne Medical Center Physician GroupComment on above: Result Comment: Random Glucose Reference Range is dependent on time and content of last meal. Glucose of more than 200 mg/dL in a nonstressed, ambulatory subject supports the diagnosis of Diabetes Mellitus.PERFORMED BY:[facility] [place] [phone] MEDICAL DIRECTORLANDRY LEE M.D.Performed By: #### GLULS ####Point of Care testing,Glucose [Mass/volume] in Urine by Test stripOrdered By: Oh Landa on 25-95-2167Tjygblg Test strip (U) [Mass/Vol]50 mg/dLMercy Health Lorain HospitalHemoglobin Test strip Ql (U)Ordered By: Oh Landa on 05-09-2025 Hemoglobin Ql (U)1+[facility] Cr[facility] HospitalHyaline casts [#/area] in Urine sediment by Automated countOrdered By: Oh Landa on 61-19-1221Uhnlags casts Auto (Urine sed) [#/Area]None [LPF]0-8[facility] West HospitalKetones [Presence] in Urine by Test stripOrdered By: Oh Landa on 61-60-4106Eodmzpi Ql (U)1+NormalOhio State East Hospital Comment on above:Order Comment: Name Collection Type:: Clean-Voided Midstream Performed By: #### CUU, ADDONUAPLUS ####[facility] [place] [id number] USALeukoReduced RBCon 85-28-9850AetwyMmpimsx RBC TRANSFUSED 05/09/25 0749[facility] Physician GroupLeukocyte clumps [Presence] in Urine by AutomatedOrdered By: Oh Landa on 30-60-6379Qwcsqnqgw clumps Auto Ql (U)Many [LPF][facility] Leukocyte esterase [Presence] in Urine by Test stripOrdered By: Oh Landa on 83-33-5372Lkcapzevb esterase Test strip Ql (U)4+NormalNegProMedica Bay Park HospitalComment on above:Order Comment: Name Collection Type:: Clean- Voided MidstreamPerformed By: #### CUU, ADDONUAPLUS ####[address] [place], [place] USALeukocytes [#/area] in Urine sediment by Automated countOrdered By: Oh Landa on 28-56-8962WPC Auto (Urine sed) [#/Area]Innumerable [HPF]High0-4FProMedica Defiance Regional HospitalMagnesium [Mass/volume] in Serum or PlasmaOrdered By: Xavier Mello on 86-18-0932Zzppzqotz [Mass/Vol]1.8 mg/dLLow1.9-2.7FProMedica Defiance Regional HospitalComment on above: Result Comment: PERFORMED BY:[address] [place], [place] [phone] MEDICAL DIRECTORLANDRY LEE M.D.Performed By: #### SCAN CBC, MG, CMP, PHOS ####[address] [address] USAMucus [Presence] in Urine by Automated Ordered By: Oh Landa on 73-19-8946Wzlnk Auto Ql (U)2+ [LPF]AbnormalMercy Health West HospitalNitrite Test strip Ql (U)Ordered By: Oh Landa on 50-88-0654Tnqjigi Ql (U)NegativeNegativeMercy Health West Hospital Phosphoruson 23-81-5252Cujgrpbgh [Mass/Vol]3.2 mg/dLNormal2.5-4.5The [facility] Physician GroupComment on above:Performed By: #### SCAN CBC, MG, CMP, PHOS ####[address] [address] USAProtein [Mass/volume] in Urine by Test stripOrdered By: Oh Landa on 05-09-2025 Protein (U) [Mass/Vol]100 mg/dLNormalNegativeMercy Health West Hospital Comment on above:Order Comment: Name Collection Type:: Clean-Voided Midstream Performed By: #### CHRISTIANO BURLESONPLUS ####[address] USAScan and CBCon 32-79-0882Izihhoxzffgi Ql (Bld)Marked NormalThe [facility] Physician GroupComment on above:Performed By: #### SCAN CBC, MG, CMP, PHOS ####[place] [address] USABasophils (Bld) [#/Vol]0.1 10*3/uLNormal0.0-0.2The [facility] Physician GroupComment on above:Performed By: #### SCAN CBC, MG, CMP, PHOS ####[place] [address] USABasophils/100 WBC (Bld)0.5 %Normal.The [facility] Physician GroupComment on above:Performed By: #### SCAN CBC, MG, CMP, PHOS ####[place] [address] USAEosinophils (Bld) [#/Vol]0.1 10*3/uLNormal0.0-0.45 The [facility] Physician GroupComment on above:Performed By: #### SCAN CBC, MG, CMP, PHOS ####[place] [address] USAEosinophils/100 WBC (Bld)0.7 %Normal.The [facility] Physician GroupComment on above:Performed By: #### SCAN CBC, MG, CMP, PHOS ####[place] [address] USAErythrocyte distribution width (RBC) [Ratio]21.5 %High11.9-15.3The [facility] Physician GroupComment on above: Performed By: #### SCAN CBC, MG, CMP, PHOS ####[place] [address] USAHematocrit (Bld) [Volume fraction]20.5 %Low34.0-46.4The [facility] Physician GroupComment on above:Performed By: #### SCAN CBC, MG, CMP, PHOS ####[place] [address] USAHemoglobin (Bld) [Mass/Vol]6.1 g/dLLow11.8-15.4The [facility] Physician GroupComment on above:Performed By: #### SCAN CBC, MG, CMP, PHOS ####[place] [address] [place] HypochromasiaModerateNormalThe [facility] Physician GroupComment on above: Performed By: #### SCAN CBC, MG, CMP, PHOS ####[place] [address] USALymphocytes (Bld) [#/Vol]1.9 10*3/uL Normal1.00-4.8The [facility] Physician GroupComment on above:Performed By: #### SCAN CBC, MG, CMP, PHOS ####[place] [address] USALymphocytes/100 WBC (Bld)9.3 %Normal.The [facility] Physician GroupComment on above:Performed By: #### SCAN CBC, MG, CMP, PHOS ####[address] (RBC) [Entitic mass]21.4 pgLow24.7-34.3The [facility] Physician GroupComment on above:Performed By: #### SCAN CBC, MG, CMP, PHOS ####[address] (RBC) [Entitic vol]71.6 fLLow 80-100The [facility] Physician GroupComment on above:Performed By: #### SCAN CBC, MG, CMP, PHOS ####[place] [address] USAMean Corpuscular HGB Conc29.9 g/dLLow32.0-35.0The [facility] Physician GroupComment on above:Performed By: #### SCAN CBC, MG, CMP, PHOS ####[place] [address] USAMicrocytosisSlight NormalThe [facility] Physician GroupComment on above:Performed By: #### SCAN CBC, MG, CMP, PHOS ####[place] [address] USAMonocytes (Bld) [#/Vol]1.8 10*3/uLHigh0.0-0.8The [facility] Physician GroupComment on above:Performed By: #### SCAN CBC, MG, CMP, PHOS ####[place] [address] USAMonocytes/100 WBC (Bld)9.0 %Normal.The [facility] Physician GroupComment on above:Performed By: #### SCAN CBC, MG, CMP, PHOS ####[place] [address] USANeutrophils (Bld) [#/Vol]16.4 10*3/uLHigh1.8-7.7The [facility] Physician GroupComment on above:Performed By: #### SCAN CBC, MG, CMP, PHOS ####[place] [address] [place] Neutrophils/100 WBC (Bld)80.5 %Normal.The [facility] Physician GroupComment on above:Performed By: #### SCAN CBC, MG, CMP, PHOS ####[place] [address] USANRBC%0.1 /100{WBC}Normal0-0.5The [facility] Physician GroupComment on above:Performed By: #### SCAN CBC, MG, CMP, PHOS ####[place] [address] [place] Platelet EstimateNormalNormalNormalThe [facility] Physician GroupComment on above:Performed By: #### SCAN CBC, MG, CMP, PHOS ####[place] [address] USAPlatelet mean volume (Bld) [Entitic vol]7.5 fLNormal6.3-10.7The [facility] Physician GroupComment on above:Performed By: #### SCAN CBC, MG, CMP, PHOS ####[place] [address] USAPlatelet MorphologyNormalNormalNormalThSt. Luke's El[facility] Center Physician GroupComment on above:Result Comment: PERFORMED BY:[address] [place], [place] [phone] MEDICAL DIRECTORLANDRY LEE M.D.Performed By: #### SCAN CBC, MG, CMP, PHOS ####[place] [id number] [place] Platelets (Bld) [#/Vol]318 10*3/nHFuvfrm168-977Poj [facility] Physician Group Comment on above:Performed By: #### SCAN CBC, MG, CMP, PHOS ####[place] [id number] USAPolychromasiaSlight NormalThe [facility] Physician [facility] Memorial Community HospitalComment on above:Performed By: #### SCAN CBC, MG, CMP, PHOS ####[place] [address] USARBC (Bld) [#/Vol]2.87 10*6/uLLow3.60-5.00[facility] Comment on above:Performed By: #### SCAN CBC, MG, CMP, PHOS ####[place] [id number] USAWBC (Bld) [#/Vol]20.3 10*3/uLHigh3.8-11.6[facility] Physician [facility] HospitalComment on above:Performed By: #### SCAN CBC, MG, CMP, PHOS ####[place] [id number] USAWhite Blood Count20.3 [CFU]/mLHigh3.8-11.6[facility] Physician GroupComment on above:Performed By: #### SCAN CBC, MG, CMP, PHOS ####[place] [id number] [facility] Specific gravity Test strip (U) [Rel density]Ordered By: Oh Landa on 08-59-5245Vjjszrqt gravity (U) [Rel density]1.0181.001-1.030[facility] HospitalType and Screenon 38-41-3189WPE and Rh group Nom (Bld)Blood group A Rh(D) positiveNoNovant Health Ballantyne Medical Center Physician GroupComment on above:Order Comment: Transfuse now? Y Number of units to transfuse now? 1 Transfuse now? Y Number of units to transfuse now? 1Result Comment: PERFORMED BY:[facility] [place], [place] [phone] MEDICAL DIRECTORLANDRY LEE M.D.Urine Cultureon 44-04-5565Jdqgcuhj identified Cx Nom (U)NormalThe [facility] Physician GroupComment on above: Performed By: #### CUU, ADDONUAPLUS ####[facility] [address] [place], [place] USAUrine cultureOrdered By: Oh Landa on 05-09-2025 Bacteria identified Cx Nom (U)Escherichia coliWooster Community HospitalUrobilinogen Test strip (U) [Mass/Vol]Ordered By: Oh Landa on 26-30-1241Dklckqricyih (U) [Mass/Vol]Normal mg/dLWilson Memorial HospitalWBC casts [#/area] in Urine by Computer assisted methodOrdered By: Oh Landa on 12-61-7236ZOK casts Computer assisted (U) [#/Area]1-2 [LPF]High None [facility] HospitalpH of Urine by Test stripOrdered By: Oh Landa on 78-24-1325pZ (U)7.5 [pH]Normal5.0-9.0[facility] HospitalComment on above:Order Comment: Name Collection Type:: Clean-Voided MidstreamPerformed By: #### CUU, ADDONUAPLUS ####[place] [address] [place], [place] USAAerobic culture with sensitivityOrdered By: Xavier Mello on 52-04-0515Bnjgnawa identified Aer cx Nom (Unsp spec) Escherichia coliAbBarberton Citizens HospitalAlanine aminotransferase [Enzymatic activity/volume] in Serum or PlasmaOrdered By: Oh Landa on 55-69-2674KOY [Catalytic activity/Vol]9 U/LNormal7-52[facility] HospitalComment on above:Performed By: #### CUBLD, CBC, PTT, PT, CMP, BNP, CK, HS TROP, LACTIC ####[address] [address] USAAlbumin [Mass/volume] in Serum or Plasma by Bromocresol green (BCG) dye binding methoOrdered By: Oh Landa on 05-08-2025 Albumin BCG dye [Mass/Vol]2.7 g/dLLow3.5-5.7FProMedica Defiance Regional Hospital Alkaline phosphatase [Enzymatic activity/volume] in Serum or PlasmaOrdered By: Oh Landa on 69-52-9825QLY [Catalytic activity/Vol]156 U/EGrpi41-557OpwnvzwibMercy Health West HospitalComment on above:Performed By: #### CUBLD, CBC, PTT, PT, CMP, BNP, CK, HS TROP, LACTIC ####[address] [address] USAAspartate aminotransferase [Enzymatic activity/volume] in Serum or PlasmaOrdered By: Oh Landa on 54-66-1670VVV [Catalytic activity/Vol]12 U/PGux67-21PioojdmwbMercy Health West HospitalComment on above:Performed By: #### CUBLD, CBC, PTT, PT, CMP, BNP, CK, HS TROP, LACTIC ####[address] [address] USABNP ser/plasOrdered By: Oh Landa on 48-22-7603Eycpfpltjze peptide B (Bld) [Mass/Vol]643.0 pg/mLHigh5-100[facility] HospitalComment on above: Result Comment: PERFORMED BY:[address] [place], [place] [phone] MEDICAL DIRECTORLANDRY LEE M.D.Performed By: #### CUBLD, CBC, PTT, PT, CMP, BNP, CK, HS TROP, LACTIC ####[address] [address] [place] Basophils [#/volume] in Blood by Automated countOrdered By: Oh Landa on 44-35-5556Iundcuxed (Bld) [#/Vol]0.2 10*3/uLNormal0.0-0.2FProMedica Defiance Regional HospitalComment on above:Result Comment: PERFORMED BY:[facility] [place], [place] [phone] MEDICAL DIRECTORLANDRY LEE M.D.Performed By: #### CUBLD, CBC, PTT, PT, CMP, BNP, CK, HS TROP, LACTIC ####[address] [address] USABasophils/100 leukocytes in Blood by Automated countOrdered By: Oh Landa on 65-94-0727Yvtszdeps/100 WBC (Bld)1.0 %Normal.[facility] HospitalComment on above:Performed By: #### CUBLD, CBC, PTT, PT, CMP, BNP, CK, HS TROP, LACTIC ####[address] [address] USABilirubin.total [Mass/volume] in Serum or Plasma Ordered By: Oh Landa on 77-12-1227Mrcrygkpk [Mass/Vol]0.5 mg/dLNormal0.3-1.0 [facility] HospitalComment on above:Performed By: #### CUBLD, CBC, PTT, PT, CMP, BNP, CK, HS TROP, LACTIC ####[address] [address] USABlood Cultureon 41-80-4723Qtfjwuic identified Cx Nom (Bld)NO GROWTH 5 DAYS PERFORMED BY: [facility] [address] [place] [address] PATHOLOGIST BEAD PICKER LANDRY LEE M.D.NormalThe [facility] Physician GroupComment on above: Performed By: #### CUBLD, CBC, PTT, PT, CMP, BNP, CK, HS TROP, LACTIC ####[address] [address] USACT abdomen pelvis w conon 88-50-9894PI abdomen pelvis w conNormalThe [facility] Physician GroupCalcium [Mass/volume] in Serum or PlasmaOrdered By: Oh Landa on 24-21-2757Bwprqey [Mass/Vol]8.9 mg/dLNormal8.6-10.3FProMedica Defiance Regional HospitalComment on above:Performed By: #### CUBLD, CBC, PTT, PT, CMP, BNP, CK, HS TROP, LACTIC ####[place] [address] USACarbon dioxide, total [Moles/volume] in Serum or PlasmaOrdered By: Oh Landa on 16-53-9983ZE8 [Moles/Vol]26.6 mmol/VTfxevt55.0-31.0[facility] HospitalComment on above:Performed By: #### CUBLD, CBC, PTT, PT, CMP, BNP, CK, HS TROP, LACTIC ####[place] [address] USAChloride [Moles/volume] in Serum or PlasmaOrdered By: Oh Landa on 61-88-1845Cukyrpux [Moles/Vol]93 mmol/IJvl24-313VqdwgeexuMercy Health West HospitalComment on above:Performed By: #### CUBLD, CBC, PTT, PT, CMP, BNP, CK, HS TROP, LACTIC ####[place] [address] USAComplete Blood Count Auto Diffon 49-34-6546Pest Corpuscular HGB Conc29.7 g/dLLow32.0-35.0[facility] Physician GroupComment on above:Performed By: #### CUBLD, CBC, PTT, PT, CMP, BNP, CK, HS TROP, LACTIC ####[place] [address] [place] Monocytes/100 WBC (Bld)23.71 %High0.00-20.00[facility] Physician GroupComment on above:Result Comment: For adults in ED, MDW > 20.0 may be associated with a higher risk of sepsis during the first 12 hrs of hospital admissionPerformed By: #### CUBLD, CBC, PTT, PT, CMP, BNP, CK, HS TROP, LACTIC ####[place] [address] USANRBC%0.1 /100{WBC}Normal0-0.5 [facility] Physician GroupComment on above:Performed By: #### CUBLD, CBC, PTT, PT, CMP, BNP, CK, HS TROP, LACTIC ####[place] [address] USAWhite Blood Count18.5 [CFU]/mLHigh3.8-11.6The [facility] Physician GroupComment on above:Performed By: #### CUBLD, CBC, PTT, PT, CMP, BNP, CK, HS TROP, LACTIC ####[place] [address] USAComprehensive Metabolic Panelon 83-54-8060Cmncyxu [Mass/Vol]2.7 g/dLLow3.5-5.7The [facility] Physician GroupComment on above: Performed By: #### CUBLD, CBC, PTT, PT, CMP, BNP, CK, HS TROP, LACTIC ####[place] [address] [place] Creatinine Clr Calc Oezqhymb91.92NormalThSt. Luke's [facility] Physician [facility] Community HospitalComment on above:Result Comment: PERFORMED BY:[address] [place], [place] [phone] MEDICAL DIRECTORLANDRY LEE M.D.Performed By: #### CUBLD, CBC, PTT, PT, CMP, BNP, CK, HS TROP, LACTIC ####[address] GFR/1.73 sq M.predicted MDRD (S/P/Bld) [Vol rate/Area]10.269 mL/min/{1.73_m2} NormalThe [facility] Physician [facility] Community HospitalComment on above:Performed By: #### CUBLD, CBC, PTT, PT, CMP, BNP, CK, HS TROP, LACTIC ####[place] [id number] USACreatine kinase [Enzymatic activity/volume] in Serum or PlasmaOrdered By: Oh Landa on 28-78-2685TC [Catalytic activity/Vol]22 U/TIww90-362Qdpvneczn Regional Medical CenterComment on above:Performed By: #### CUBLD, CBC, PTT, PT, CMP, BNP, CK, HS TROP, LACTIC ####[place] [address] [place] Creatinine [Mass/volume] in Serum or PlasmaOrdered By: Oh Landa on 02-01-7609Uciwkowikd [Mass/Vol]4.77 mg/dLHigh0.60-1.20[facility] HospitalComment on above:Performed By: #### CUBLD, CBC, PTT, PT, CMP, BNP, CK, HS TROP, LACTIC ####[place] [address] USAEosinophils [#/volume] in Blood by Automated countOrdered By: Oh Landa on 79-47-9665Slwainnxtnt (Bld) [#/Vol]0.1 10*3/uLNormal0.0-0.45[facility] HospitalComment on above:Performed By: #### CUBLD, CBC, PTT, PT, CMP, BNP, CK, HS TROP, LACTIC ####[place] [id number] USAEosinophils/100 leukocytes in Blood by Automated countOrdered By: Oh Landa on 71-44-2414Khhlzvsxejb/100 WBC (Bld)0.6 %Normal. [facility] HospitalComment on above:Performed By: #### CUBLD, CBC, PTT, PT, CMP, BNP, CK, HS TROP, LACTIC ####[place] [id number] USAErythrocyte distribution width [Ratio] by Automated countOrdered By: Oh Landa on 39-07-5538Ipddqtteqei distribution width (RBC) [Ratio]21.2 %High11.9-15.3FProMedica Defiance Regional HospitalComment on above:Performed By: #### CUBLD, CBC, PTT, PT, CMP, BNP, CK, HS TROP, LACTIC ####[place] [address] [place] Erythrocytes [#/volume] in Blood by Automated countOrdered By: Oh Landa on 28-20-1930RTJ (Bld) [#/Vol]3.22 10*6/uLLow3.60-5.00[facility] HospitalComment on above:Performed By: #### CUBLD, CBC, PTT, PT, CMP, BNP, CK, HS TROP, LACTIC ####[facility] [place] [address] USAGlucose Poct Glucometerson 89-96-6181Uzeswki [Mass/Vol]196 mg/dLNormal [facility] Physician GroupComment on above:Result Comment: Random Glucose Reference Range is dependent on time and content of last meal. Glucose of more than 200 mg/dL in a nonstressed, ambulatory subject supports the diagnosis of Diabetes Mellitus.PERFORMED BY:[address] [place], [place] [phone] MEDICAL DIRECTORLANDRY LEE M.D.Performed By: #### GLULS ####Point of Care testing,Glucose [Mass/volume] in Serum or PlasmaOrdered By: Oh Landa on 11-63-1649Xmmefjk [Mass/Vol]143 mg/dL Ffdi41-324WcfnrrtroMercy Health West HospitalComment on above:ADA recommended reference rangeRandom Glucose Reference Range is dependent on time and content of last meal. Glucose of more than 200 mg/dL in a nonstressed, ambulatory subject supports the diagnosisof Diabetes Mellitus.Result Comment: Random Glucose Reference Range is dependent on time and content of last meal. Glucose of more than 200 mg/dL in a nonstressed, ambulatory subject supports the diagnosis of Diabetes Mellitus. ADA recommended reference rangePerformed By: #### CUBLD, CBC, PTT, PT, CMP, BNP, CK, HS TROP, LACTIC ####[facility] [place] [address] USAHematocrit [Volume Fraction] of Blood by Automated countOrdered By: Oh Landa on 05-84-3022Xkdqbntghz (Bld) [Volume fraction]23.2 %Low34.0-46.4FProMedica Defiance Regional Hospital Comment on above:Performed By: #### CUBLD, CBC, PTT, PT, CMP, BNP, CK, HS TROP, LACTIC ####[facility] [place] [address] [facility] Hemoglobin [Mass/volume] in BloodOrdered By: Oh Landa on 05-08-2025 Hemoglobin (Bld) [Mass/Vol]6.9 g/dLLow11.8-15.4FProMedica Defiance Regional Hospital Comment on above:Performed By: #### CUBLD, CBC, PTT, PT, CMP, BNP, CK, HS TROP, LACTIC ####[facility] [place] [address] [facility] INR in Platelet poor plasma by Coagulation assayOrdered By: Oh Landa on 13-03-9838SRU Coag (PPP) [Relative time]1.3 {INR}NormalMercy Health West HospitalComment on above:INR Therapeutic Range A) Pre- and Peroperative OAT started two weeks before surgery. NOT HIP SURGERY: 1.5 - 2.5 HIP SURGERY: 2 - 3B) Primary and secondary prevention of venous THROMBOSIS: 2 - 3C) Active venous thrombosis, pulmonary embolismand prevention of recurrent venous thrombosis: 2 - 3D) Prevention of arterial thromboembolismincluding patients with mechanical heart valves: 3 - 4.5Result Comment: INR Therapeutic Range A) Pre- and Peroperative OAT started two weeks before surgery. NOT HIP SURGERY: 1.5 - 2.5 HIP SURGERY: 2 - 3 B) Primary and secondary prevention of venous THROMBO SIS: 2 - 3 C) Active venous thrombosis, pulmonary embolism and prevention of recurrent venous thrombosis: 2 - 3 D) Prevention of arterial thromboembolism including patients with mechanical heart valves: 3 - 4.5Performed By: #### CUBLD, CBC, PTT, PT, CMP, BNP, CK, HS TROP, LACTIC ####[facility] [place] [address] USALaboratory - Microbiology and Antimicrobial susceptibilityOrdered By: Oh Landa on 21-22-4677Vwadgwhe identified Cx Nom (Bld)NO GROWTH 5 DAYSMercy Health West HospitalLactate [Moles/volume] in Serum or PlasmaOrdered By: Oh Landa on 72-09-7320Tfpkrvv [Moles/Vol]0.7 mmol/LNormal0.5-1.9[facility] HospitalComment on above:Lactic Acid reference range has been updated to 0.5 1.9 mmol/L and the critical range of 2.0 or greater.Result Comment: Lactic Acid reference range has been updated to 0.5 ? 1.9 mmol/L and the critical range of 2.0 or greater.PERFORMED BY:[address] [place], [place] [phone] MEDICAL DIRECTORLANDRY LEE M.D.Performed By: #### CUBLD, CBC, PTT, PT, CMP, BNP, CK, HS TROP, LACTIC ####[address] [address] USALeukocytes [#/volume] corrected for nucleated erythrocytes in Blood by Automated counOrdered By: Oh Landa on 07-31-8237ADP corrected for nucl RBC Auto (Bld) [#/Vol]18.5 10*3/uLHigh3.8-11.6FProMedica Defiance Regional HospitalLeukocytes [#/volume] in Blood by Automated countOrdered By: Oh Landa on 92-65-7561IJR (Bld) [#/Vol] 18.5 10*3/uLHigh3.8-11.6FProMedica Defiance Regional HospitalComment on above: Performed By: #### CUBLD, CBC, PTT, PT, CMP, BNP, CK, HS TROP, LACTIC ####[address] [address] [place] Lymphocytes [#/volume] in Blood by Automated countOrdered By: Oh Landa on 17-14-8550Syscsrctuhr (Bld) [#/Vol]1.9 10*3/uLNormal1.00-4.8[facility] HospitalComment on above:Performed By: #### CUBLD, CBC, PTT, PT, CMP, BNP, CK, HS TROP, LACTIC ####[address] [address] USALymphocytes/100 leukocytes in Blood by Automated countOrdered By: Oh Landa on 00-52-5208Ufgtbkirazu/100 WBC (Bld)10.6 %Normal .[facility] HospitalComment on above:Performed By: #### CUBLD, CBC, PTT, PT, CMP, BNP, CK, HS TROP, LACTIC ####[facility] [place] [id number] [facility] [Entitic mass] by Automated count Ordered By: Oh Landa on 31-15-0337IVD (RBC) [Entitic mass]21.4 pgLow 24.7-34.3FProMedica Defiance Regional HospitalComment on above:Performed By: #### CUBLD, CBC, PTT, PT, CMP, BNP, CK, HS TROP, LACTIC ####[place] [address] [place] [id number] [facility] Auto (RBC) [Mass/Vol] Ordered By: Oh Landa on 66-02-8413CZJY (RBC) [Mass/Vol]29.7 g/dLLow32.0-35.0 [facility] Medical CenterV [Entitic volume] by Automated countOrdered By: Oh Landa on 10-26-0251EJV (RBC) [Entitic vol]72.1 sAMnx94-554QhnkcxryqMercy Health West HospitalComment on above:Performed By: #### CUBLD, CBC, PTT, PT, CMP, BNP, CK, HS TROP, LACTIC ####[place] [address] [place] [address] USAMonocyte distribution width [Entitic volume] in Blood by AutomatedOrdered By: Oh Landa on 71-77-6820Bfmvxdik distribution width Auto (Bld) [Entitic vol]23.71 %High0.00-20.00[facility] HospitalComment on above:For adults in ED, MDW > 20.0 may be associated with a higher risk of sepsis during the first 12 hrs of hospital admissionMonocytes [#/volume] in Blood by Automated countOrdered By: Oh Landa on 05-08-2025 Monocytes (Bld) [#/Vol]1.1 10*3/uLHigh0.0-0.8[facility] Comment on above:Performed By: #### CUBLD, CBC, PTT, PT, CMP, BNP, CK, HS TROP, LACTIC ####[address] [address] [place] [address] [place] Monocytes/100 leukocytes in Blood by Automated countOrdered By: Oh Landa on 86-31-9571Viydfnzmg/100 WBC (Bld)6.1 %Normal.[facility] Comment on above:Performed By: #### CUBLD, CBC, PTT, PT, CMP, BNP, CK, HS TROP, LACTIC ####[place] [address] [place] [id number] [place] Neutrophils [#/volume] in Blood by Automated countOrdered By: Oh Landa on 11-69-9735Glaxipwubqv (Bld) [#/Vol]15.1 10*3/uLHigh1.8-7.7FProMedica Defiance Regional HospitalComment on above:Performed By: #### CUBLD, CBC, PTT, PT, CMP, BNP, CK, HS TROP, LACTIC ####[address] [address] USANeutrophils/100 leukocytes in Blood by Automated countOrdered By: Oh Landa on 28-53-0091Qrmtehhklhd/100 WBC (Bld)81.7 %Normal .[facility] HospitalComment on above:Performed By: #### CUBLD, CBC, PTT, PT, CMP, BNP, CK, HS TROP, LACTIC ####[address] [address] USANo Panel InformationOrdered By: Oh Landa on 00-54-6068Fmnihdxiw GFR (CKD-EPI)10.269 mL/MinMercy Health West HospitalPharmacy Creatinine Clearance (Chem13.92Mer[facility] Health West HospitalNucleated erythrocytes [Presence] in Blood by Automated countOrdered By: Oh Landa on 73-79-3338Xjlxiabqq RBC Auto Ql (Bld)0.1 /100{WBC}0-0.5FProMedica Defiance Regional HospitalPartial Thromboplastin Timeon 82-72-2714hNXC Coag (Bld) [Time]36.6 sHigh25.1-36.5[facility] Physician GroupComment on above:Result Comment: A hematocrit value greater than 55% may lead to inaccurate results in coagulation testing. Patients having hematocrit values >55% require a special collection tube for coagulation studies. Please contact the laboratory at [phone] for redraw instructions.PERFORMED BY:[address] [place], [place] [phone] MEDICAL DIRECTORLANDRY LEE M.D.Performed By: #### CUBLD, CBC, PTT, PT, CMP, BNP, CK, HS TROP, LACTIC ####[address] [address] USAPlatelet mean volume [Entitic volume] in Blood by Automated count Ordered By: Oh Landa on 87-75-0639Vkcacwjp mean volume (Bld) [Entitic vol] 7.5 fLNormal6.3-10.7FProMedica Defiance Regional HospitalComment on above:Performed By: #### CUBLD, CBC, PTT, PT, CMP, BNP, CK, HS TROP, LACTIC ####[address] [address] USAPlatelets [#/volume] in Blood by Automated countOrdered By: Oh Landa on 08-67-2986Rbogjayqm (Bld) [#/Vol]362 10*3/mWKkqmfc139-384UtlwhvnxaMercy Health West HospitalComment on above:Performed By: #### CUBLD, CBC, PTT, PT, CMP, BNP, CK, HS TROP, LACTIC ####[address] [address] [place] Potassium [Moles/volume] in Serum or PlasmaOrdered By: Oh Landa on 15-92-7005Rkgjrwrkg [Moles/Vol]3.4 mmol/LLow3.5-5.1FProMedica Defiance Regional HospitalComment on above:Performed By: #### CUBLD, CBC, PTT, PT, CMP, BNP, CK, HS TROP, LACTIC ####[address] [address] USAProtein [Mass/volume] in Serum or PlasmaOrdered By: Oh Landa on 89-32-0637Kefkeuw [Mass/Vol]6.8 g/dLNormal6.4-8.9[facility] HospitalComment on above:Performed By: #### CUBLD, CBC, PTT, PT, CMP, BNP, CK, HS TROP, LACTIC ####[place] [address] [place] [address] USAProthrombin time (PT)Ordered By: Oh Landa on 38-69-9909VM Coag (PPP) [Time]15.2 sHigh9.0-12.9[facility] HospitalComment on above: A hematocrit value greater than 55% may lead to inaccurate results in coagulation testing. Patientshaving hematocrit values >55% require a special collection tube for coagulation studies. Please contact the laboratory at [phone] for redraw instructions.Result Comment: A hematocrit value greater than 55% may lead to inaccurate results in coagulation testing. Patients having hematocrit values >55% require a special collection tube for coagulation s tudies. Please contact the laboratory at [phone] for redraw instructions. Performed By: #### CUBLD, CBC, PTT, PT, CMP, BNP, CK, HS TROP, LACTIC ####[address] [place] [address] USASerum globulin measurement by calculation (mass/volume)Ordered By: Oh Landa on 46-55-4955Vmcsvecq (S) [Mass/Vol]4.1 g/dLNormKindred Healthcare Comment on above:Performed By: #### CUBLD, CBC, PTT, PT, CMP, BNP, CK, HS TROP, LACTIC ####[place] [id number] [place] Serum or plasma albumin/globulin mass ratioOrdered By: Oh Landa on 96-04-8519Cjcqevv/Globulin [Mass ratio]0.7 {ratio}NormalMercy Health West HospitalComment on above:Performed By: #### CUBLD, CBC, PTT, PT, CMP, BNP, CK, HS TROP, LACTIC ####[address] [address] USASerum or plasma anion gap determinationOrdered By: Oh Landa on 76-49-3728Pvrjc gap [Moles/Vol]14.8 mmol/LNormal6.0-15.0[facility] HospitalComment on above:Performed By: #### CUBLD, CBC, PTT, PT, CMP, BNP, CK, HS TROP, LACTIC ####[address] [address] USASodium [Moles/volume] in Serum or PlasmaOrdered By: Oh Landa on 02-42-1887Blgtid [Moles/Vol]131 mmol/ZGvb158-101DkyijpymlMercy Health West HospitalComment on above:Performed By: #### CUBLD, CBC, PTT, PT, CMP, BNP, CK, HS TROP, LACTIC ####[place] [address] [place] [address] USASuperficial Wound Cultureon 29-67-8277Oomrkmgaqmx Wound CultureNoNovant Health Ballant[facility] Center Physician [facility] HospitalComment on above:Performed By: #### CUSUP ####[address] [address] USATroponin I High Sensitivityon 49-89-8210Hgoztbum I High Pqnixxmpkoo13Pint 0-15[facility] Physician [facility] Community HospitalComment on above:Result Comment: The Troponin units of report have been changed to meet the Chest Pain Accreditation requirement, element EC5.M1l2. Troponin units are changed from pg/ml to ng/L. Also, the decimal is removed and results are in whole numbers.PERFORMED BY:[address] [place], [place] [phone] MEDICAL DIRECTORLANDRY LEE M.D.Performed By: #### CUBLD, CBC, PTT, PT, CMP, BNP, CK, HS TROP, LACTIC ####[address] [address] USATroponin I.cardiac [Mass/volume] in Serum or Plasma by Detection limit <= 0.01 ng/mLOrdered By: Oh Landa on 88-46-8986Hecwqlwr I.cardiac DL <= 0.01 ng/mL [Mass/Vol]18 ng/L High0-15Mer[facility] West HospitalComment on above:The Troponin units of report have been changed to meet the Chest Pain Accreditation requirement, ayala ment EC5.M1l2. Troponin units are changed from pg/ml to ng/L. Also, the decimal is removed and results are in whole numbers.Urea nitrogen [Mass/volume] in Serum or PlasmaOrdered By: Oh Landa on 12-84-1701Xkcw nitrogen [Mass/Vol]50 mg/dL High7Mer[facility] Health West HospitalComment on above:Performed By: #### CUBLD, CBC, PTT, PT, CMP, BNP, CK, HS TROP, LACTIC ####[facility] [address] [place] [id number] USAX-ray reportOrdered By: Pancho Lilly on 61-38-3494Ivnfg reportREGIONAL MEDICAL CENTER [address] [place] [address] [place] [address] XRay Report Signed Patient: Sourav Roque MR#: [id number] : 1970 Acct:[id number] Age/Sex: 55 / F ADM Date: Loc: ER Room: Type: [facility] ER Attending Dr: Copies to: Oh [...] right IJ catheter similar to the prior exam.The heart and mediastinal structures are within normal limits. There is a small left-sided pleural effusion. The lung parenchyma is clear. The bony thorax is intact. XR/XR chest 2V* IMPRESSION: There is a similar small left-sided pleural effusion. Unchanged right-sided dialysis catheter. Impression dictated by: Pancho Lilly M.D. 05/08/2025 5:38 PM Dictation Location: [place] [address] Transcribed By: [facility] 05/08/25 1738 Dictated By: Pancho Lilly II, MD 05/08/251734 Signed By: 05/08/251737 [facility] Work Phone: xr chest 2V*on 90-54-2523GF chest 2V*NormalThe [facility] Plate[facility] poor plasma by Coagulation assay Ordered By: Oh Landa on [id number] Coag (PPP) [Time]36.6 sHigh25.1-36.5 [facility] HospitalComment on above:A hematocrit value greater than 55% may lead to inaccurate results in coagulation testing. Patientshaving hematocrit values >55% require a special collection tube for coagulation studies. Please contact the laboratory at [phone] for redraw instructions. [place] map hemodial access [facility] [id number] map hemodial access [place] [facility] Hematology and Cell countson 04-17-2025 HbA1c (Bld) [Mass fraction]5.9 %[facility]OMS HealthcareNo Panel Informationon 04-17-2025 [facility]OMS HealthcareBasic Metabolic Panelon 64-28-3633[facility] 10.66St. Gabriel HospitalComment on above:Result Comment: PERFORMED BY:[address] [place], [place] [phone] MEDICAL DIRECTORLANDRY LEE M.D.Performed By: #### BMP ####[address] [place] [address] USAEstimated GFR8.452 mL/MinNoBrecksville VA / Crille HospitalComment on above: Performed By: #### BMP ####[address] [address] USABasophils Auto (Bld) [#/Vol]Ordered By: Osvaldo Pete on 42-34-1138Uxgwxvsvc (Bld) [#/Vol]Automated basophil count0.0-0.2 [facility] HospitalBasophils [#/volume] in Blood by Automated countOrdered By: Osvaldo Pete on 17-40-2225Kxaoqwcqp (Bld) [#/Vol]0.1 10*3/uL Normal0.0-0.2FProMedica Defiance Regional HospitalComment on above:Order Comment: REDRAWResult Comment: PERFORMED BY:[address] [place], [place] [phone] MEDICAL DIRECTORLANDRY LEE M.D.Performed By: #### CBC ####[address] [place] [address] USABasophils/100 WBC Auto (Bld)Ordered By: Osvaldo Pete on 89-01-2538Vogyldsjr/100 WBC (Bld)Automated basophil %.[facility] HospitalBasophils/100 leukocytes in Blood by Automated count Ordered By: Osvaldo Pete on 50-61-6007Jvuxmjyqw/100 WBC (Bld)0.8 %Normal. [facility] HospitalComment on above:Order Comment: REDRAWPerformed By: #### CBC ####[address] [address] USACalcium [Mass/volume] in Serum or PlasmaOrdered By: Osvaldo Pete on 99-04-6690Sxlrjks [Mass/Vol]Calcium [Mass/volume] in Serum or Plasma8.6-10.3 [facility] HospitalCalcium [Mass/Vol]9.6 mg/dLNormal8.6-10.3 [facility] HospitalComstraith hospital for special surgery on above:Performed By: #### BMP ####[address] [address] [facility] Capillary blood glucose measurement by glucometer (mass/volume)Ordered By: Juan Carlos Chavez on 48-20-2042Zbvield [Mass/Vol]149 mg/dLNoDayton VA Medical CenterComment on above:Random Glucose Reference Range is dependent on time and content of last meal. Glucose of more than 200 mg/dL in a nonstressed, ambulatory subject supports the diagnosis of Diabetes Mellitus.Result Comment: Random Glucose Reference Range is dependent on time and content of last meal. Glucose of more than 200 mg/dL in a nonstressed, ambulatory subject supports the diagnosis of Diabetes Mellitus.PERFORMED BY:[address] [place], [place] [phone] MEDICAL DIRECTORLANDRY LEE M.D.Performed By: #### GLULS ####Point of Care testing, Carbon dioxide, total [Moles/volume] in Serum or PlasmaOrdered By: Osvaldo Pete on 50-89-3518OG8 [Moles/Vol]Carbon dioxide, total [Moles/volume] in Serum or JylreeJre55.0-31.0[facility] HospitalCO2 [Moles/Vol]19.9 mmol/LLow21.0-31.0[facility] HospitalComment on above:Performed By: #### BMP ####[address] [place] [address] USAChloride [Moles/volume] in Serum or PlasmaOrdered By: Osvaldo Pete on 52-30-8854Wdsxmofv [Moles/Vol]Chloride [Moles/volume] in Serum or PlasmaLow 98-107[facility] HospitalChloride [Moles/Vol]92 mmol/XUof46-723 [facility] HospitalComment on above:Performed By: #### BMP ####[address] [place] [address] [facility] Complete Blood Count Auto Diffon 26-68-9370Gjec Corpuscular HGB Conc31.1 g/dLLow 32.0-35.0The [facility] Physician GroupComment on above:Order Comment: REDRAW Performed By: #### CBC ####[address] [place] [address] USANRBC%0.0 /100{WBC}Normal0-0.5[facility] HospitalComstraith hospital for special surgery on above:Order Comment: REDRAWPerformed By: #### CBC ####[address] [place] [address] USACreatinine [Mass/volume] in Serum or PlasmaOrdered By: Osvaldo Pete on 04-04-2025 Creatinine [Mass/Vol]Creatinine [Mass/volume] in Serum or PlasmaHigh0.60-1.20 [facility] HospitalCreatinine [Mass/Vol]5.61 mg/dLHigh0.60-1.20 [facility] HospitalComment on above:Performed By: #### BMP ####[address] Eosinophils Auto (Bld) [#/Vol]Ordered By: Osvaldo Pete on 04-04-2025 Eosinophils (Bld) [#/Vol]Automated eosinophil count0.0-0.45[facility] HospitalEosinophils [#/volume] in Blood by Automated countOrdered By: Osvaldo Pete on 85-71-5917Efxrmyheaqv (Bld) [#/Vol]0.1 10*3/uLNormal0.0-0.45 [facility] HospitalComstraith hospital for special surgery on above:Order Comment: REDRAWPerformed By: #### CBC ####[place] [address] USAEosinophils/100 WBC Auto (Bld)Ordered By: Osvaldo Pete on 04-04-2025 Eosinophils/100 WBC (Bld)Automated eosinophil %.[facility] HospitalEosinophils/100 leukocytes in Blood by Automated countOrdered By: Osvaldo Pete on 87-97-6614Smbmqqrluee/100 WBC (Bld)0.8 %Normal.[facility] HospitalComstraith hospital for special surgery on above:Order Comment: REDRAWPerformed By: #### CBC ####[address] Erythrocyte distribution width Auto (RBC) [Ratio]Ordered By: Osvaldo Pete on 11-95-4678Vtsvuryrzwi distribution width (RBC) [Ratio]Erythrocyte distribution width [Ratio] by Automated hfggzThiy35.9-15.3FProMedica Defiance Regional Hospital Erythrocyte distribution width [Ratio] by Automated countOrdered By: Osvaldo Pete on 93-26-8769Tiihbzkukvo distribution width (RBC) [Ratio]16.0 %High 11.9-15.3FProMedica Defiance Regional HospitalComment on above:Order Comment: REDRAW Performed By: #### CBC ####[place] [address] USAErythrocytes [#/volume] in Blood by Automated count Ordered By: Osvaldo Pete on 17-77-5922SBJ (Bld) [#/Vol]3.81 10*6/uLNormal 3.60-5.00[facility] HospitalComment on above:Order Comment: REDRAW Performed By: #### CBC ####[facility] [place] [address] USAGLUCOSE POCT GLUCOMETERSon 20-27-5172Plcclzc [Mass/Vol]149 mg/dLNOKS HealthcareComment on above:Random Glucose Reference Range is dependent on time and content of last meal. Glucose of more than 200 mg/dL in a nonstressed, ambulatory subject supports the diagnosis of Diabetes Mellitus. NOMS DlcsmraugcMNJYJQA6Kti1: Cleaned MeterNOMS HealthcareGlucose [Mass/Vol]126 mg/dLNOKS HealthcareComment on above:Random Glucose Reference Range is dependent on time and content of last meal. Glucose of more than 200 mg/dL in a nonstressed, ambulatory subject supports the diagnosis of Diabetes Mellitus. [facility] HospitalGlucose Glucometer ([facility]) [Mass/Vol]Ordered By: Juan Carlos Chavez on 44-79-2753Hjnpjyo [Mass/Vol]Capillary blood glucose measurement by glucometer (mass/volume)[facility] HospitalComment on above:Random Glucose Reference Range is dependent on time and content of last meal. Glucose of more than 200 mg/dL in a nonstressed, ambulatory subject supports the diagnosis of Diabetes Mellitus.Glucose Poct Glucometerson 71-59-1124Ryrklfz0Hot6: Cleaned MeterOrlando Health Winnie Palmer Hospital for Women & Babies Physician GroupComment on above:Result Comment: PERFORMED BY:[facility] [place], [place] [phone] MEDICAL TONYA LEE M.D.Performed By: #### GLULS ####Point of Care testing,Glucose [Mass/Vol]126 mg/dLOrlando Health Winnie Palmer Hospital for Women & Babies Physician GroupComment on above:Result Comment: Random Glucose Reference Range is dependent on time and content of last meal. Glucose of more than 200 mg/dL in a nonstressed, ambulatory subject supports the diagnosis of Diabetes Mellitus.Performed By: #### GLULS ####Point of Care testing,Glucose [Mass/volume] in Serum or PlasmaOrdered By: Osvaldo Pete on 20-30-8186Xrgxoip [Mass/Vol]Glucose [Mass/volume] in Serum or GevwuhRdxe64-745Ggwaivmbj15 Lucas StreetComment on above:ADA recommended reference rangeRandom Glucose Reference Range is dependent on time and content of last meal. Glucose of more than 200 mg/dL in a nonstressed, ambulatory subject supports the diagnosisof Diabetes Mellitus.Glucose [Mass/Vol]126 mg/fYAddf65-657Gzzwpjqvp15 Lucas StreetComment on above:ADA recommended reference rangeRandom Glucose Reference Range is dependent on time and content of last meal. Glucose of more than 200 mg/dL in a nonstressed, ambulatory subject supports the diagnosisof Diabetes Mellitus.Result Comment: Random Glucose Reference Range is dependent on time and content of last meal. Glucose of more than 200 mg/dL in a nonstressed, ambulatory subject supports the diagnosis of Diabetes Mellitus. ADA recommended reference rangePerformed By: #### BMP ####[address] [address] USAHematocrit Auto (Bld) [Volume fraction]Ordered By: Osvaldo Pete on 90-07-6853Discifnwbe (Bld) [Volume fraction]Hematocrit [Volume Fraction] of Blood by Automated xbwbmAwk09.0-46.4FProMedica Defiance Regional HospitalHematocrit [Volume Fraction] of Blood by Automated countOrdered By: Osvaldo Pete on 81-49-7333Qceyifviuq (Bld) [Volume fraction]31.6 %Low 34.0-46.4FProMedica Defiance Regional HospitalComstraith hospital for special surgery on above:Order Comment: REDRAW Performed By: #### CBC ####[address] [address] USAHemoglobin [Mass/volume] in BloodOrdered By: Osvaldo Pete on 10-58-3170Rykwevrsab (Bld) [Mass/Vol]Hemoglobin [Mass/volume] in DvsxzGkb56.8-15.4FProMedica Defiance Regional HospitalHemoglobin (Bld) [Mass/Vol]9.8 g/dLLow11.8-15.4FProMedica Defiance Regional HospitalComstraith hospital for special surgery on above:Order Comment: REDRAWPerformed By: #### CBC ####[facility] [place] [address] USALon 18-87-1816GCeswlgVjw [facility] Physician GroupLeukocytes [#/volume] corrected for nucleated erythrocytes in Blood by Automated counOrdered By: Osvaldo Pete on 66-66-6462BNL corrected for nucl RBC Auto (Bld) [#/Vol]Leukocytes [#/volume] corrected for nucleated erythrocytes in Blood by Automated counHigh3.8-11.6FProMedica Defiance Regional HospitalWBC corrected for nucl RBC Auto (Bld) [#/Vol]14.4 10*3/uLHigh3.8-11.6FProMedica Defiance Regional HospitalLeukocytes [#/volume] in Blood by Automated countOrdered By: Osvaldo Pete on 24-34-5342AYH (Bld) [#/Vol]14.4 10*3/uLHigh3.8-11.6 [facility] HospitalComment on above:Order Comment: REDRAWPerformed By: #### CBC ####[address] [address] USALymphocytes Auto (Bld) [#/Vol]Ordered By: Osvaldo Pete on 04-04-2025 Lymphocytes (Bld) [#/Vol]Lymphocytes [#/volume] in Blood by Automated count 1.00-4.8[facility] HospitalLymphocytes [#/volume] in Blood by Automated countOrdered By: Osvaldo Pete on 19-69-6272Umplmyqrccw (Bld) [#/Vol]1.0 10*3/uLNormal1.00-4.8[facility] HospitalComment on above:Order Comment: REDRAWPerformed By: #### CBC ####[address] [address] USALymphocytes/100 WBC Auto (Bld)Ordered By: Osvaldo Pete on 47-54-4122Pfpbozhrqsj/100 WBC (Bld)Lymphocytes/100 leukocytes in Blood by Automated count.[facility] Lymphocytes/100 leukocytes in Blood by Automated countOrdered By: Osvaldo Pete on 93-89-5229Qywrirbwras/100 WBC (Bld)6.8 %Normal.[facility] HospitalComment on above:Order Comment: REDRAWPerformed By: #### CBC ####[address] [place] [id number] [facility] Auto (RBC) [Entitic mass]Ordered By: Osvaldo Pete on 62-32-0586YIB (RBC) [Entitic mass]MCH [Entitic mass] by Automated count24.7-34.3FUniversity Hospitals Geneva Medical Center [Entitic mass] by Automated countOrdered By: Osvaldo Pete on 73-83-9737VCL (RBC) [Entitic mass]25.9 iaQayvxv16.7-34.3FProMedica Defiance Regional HospitalComment on above:Order Comment: REDRAWPerformed By: #### CBC ####[id number] [facility] Auto (RBC) [Mass/Vol]Ordered By: Osvaldo Pete on 27-84-7368KHTH (RBC) [Mass/Vol]MCHC [Mass/volume] by Automated hjtfhRzz87.0-35.0[facility] (RBC) [Mass/Vol]31.1 g/dLLow32.0-35.0[facility] Auto (RBC) [Entitic vol]Ordered By: Osvaldo Pete on 25-47-7023FLV (RBC) [Entitic vol]MCV [Entitic volume] by Automated letvc01-768 [facility] Medical CenterV [Entitic volume] by Automated countOrdered By: Osvaldo Pete on 51-58-3427VPJ (RBC) [Entitic vol]83.1 jZDldexo02-396 [facility] HospitalComment on above:Order Comment: REDRAWPerformed By: #### CBC ####[place] [address] USAMonocytes Auto (Bld) [#/Vol]Ordered By: Osvaldo Pete on 04-04-2025 Monocytes (Bld) [#/Vol]Automated blood monocyte countHigh0.0-0.8Fire[facility] Regional Medical CenterMonocytes [#/volume] in Blood by Automated countOrdered By: Osvaldo Pete on 69-59-2754Zonzxxjsu (Bld) [#/Vol]0.9 10*3/uLHigh0.0-0.8 [facility] HospitalComstraith hospital for special surgery on above:Order Comment: REDRAWPerformed By: #### CBC ####[address] [address] USAMonocytes/100 WBC Auto (Bld)Ordered By: Osvaldo Pete on 04-04-2025 Monocytes/100 WBC (Bld)Automated monocyte %.[facility] Monocytes/100 leukocytes in Blood by Automated countOrdered By: Osvaldo Pete on 52-09-3808Fuqzyqbbc/100 WBC (Bld)6.5 %Normal.[facility] HospitalComment on above:Order Comment: REDRAWPerformed By: #### CBC ####[address] [address] USANeutrophils Auto (Bld) [#/Vol]Ordered By: Osvaldo Pete on 95-29-5650Kvwhbcpdoxp (Bld) [#/Vol] Neutrophils [#/volume] in Blood by Automated countHigh1.8-7.7FProMedica Defiance Regional HospitalNeutrophils [#/volume] in Blood by Automated countOrdered By: Osvaldo Pete on 16-44-6949Vxynapsfbwa (Bld) [#/Vol]12.2 10*3/uLHigh1.8-7.7 [facility] HospitalComstraith hospital for special surgery on above:Order Comment: REDRAWPerformed By: #### CBC ####[address] [address] USANeutrophils/100 WBC Auto (Bld)Ordered By: Osvaldo Pete on 04-04-2025 Neutrophils/100 WBC (Bld)Automated neutrophil %.[facility] HospitalNeutrophils/100 leukocytes in Blood by Automated countOrdered By: Osvaldo Pete on 89-39-2524Ofkywmxpwkc/100 WBC (Bld)85.1 %Normal.[facility] HospitalComment on above:Order Comment: REDRAWPerformed By: #### CBC ####[facility] [place] [address] USANo Panel InformationOrdered By: Juan Carlos Chavez on 10-22-5142Hzxnbxx Glucose Comment Glu2: cleaned meterMercy Health West HospitalNo Panel InformationOrdered By: Osvaldo Pete on 66-00-8511Nhzlyzwbi GFR (CKD-EPI)8.452 mL/MinMercy Health West HospitalPharmacy Creatinine Clearance (Chem10.66[facility] HospitalNucleated erythrocytes [Presence] in Blood by Automated countOrdered By: Osvaldo Pete on 57-00-9083Dqthmhigw RBC Auto Ql (Bld) Nucleated erythrocytes [Presence] in Blood by Automated count0-0.5FProMedica Defiance Regional HospitalNucleated RBC Auto Ql (Bld)0.0 /100{WBC}0-0.5FProMedica Defiance Regional HospitalPlatelet mean volume Auto (Bld) [Entitic vol]Ordered By: Osvaldo Pete on 97-96-8811Fwvprbdk mean volume (Bld) [Entitic vol]Platelet mean volume [Entitic volume] in Blood by Automated count6.3-10.7FProMedica Defiance Regional HospitalPlatelet mean volume [Entitic volume] in Blood by Automated countOrdered By: Osvaldo Pete on 78-21-2957Vbxpczxu mean volume (Bld) [Entitic vol]9.3 fLNormal6.3-10.7FProMedica Defiance Regional HospitalComment on above:Order Comment: REDRAWPerformed By: #### CBC ####[facility] [place] [address] USAPlatelets Auto (Bld) [#/Vol] Ordered By: Osvaldo Pete on 18-78-1996Ytpfsvqek (Bld) [#/Vol]Platelets [#/volume] in Blood by Automated gafhp853-570MybzdsgpaMercy Health West Hospital Platelets [#/volume] in Blood by Automated countOrdered By: Osvaldo Pete on 60-68-2114Cehmhabad (Bld) [#/Vol]251 10*3/fBGsrhun246-180CrwvocurlMercy Health West HospitalComment on above:Order Comment: REDRAWPerformed By: #### CBC ####[address] [address] [facility] Potassium [Moles/volume] in Serum or PlasmaOrdered By: Osvaldo Pete on 13-36-3903Rktimjzmp [Moles/Vol]Potassium [Moles/volume] in Serum or Plasma 3.5-5.1FProMedica Defiance Regional HospitalComment on above:Hemolysis is present at a level that could interfere with the result.Contact lab if redraw is required Potassium [Moles/Vol]3.7 mmol/LNormal3.5-5.1FProMedica Defiance Regional Hospital Comment on above:Hemolysis is present at a level that could interfere with the result.Contact lab if redraw is requiredResult Comment: Hemolysis is present at a level that could interfere with the result. Contact lab if redraw is required Performed By: #### BMP ####[address] [address] USARBC Auto (Bld) [#/Vol]Ordered By: Osvaldo Pete on 98-69-1566GUM (Bld) [#/Vol]Erythrocytes [#/volume] in Blood by Automated count 3.60-5.00Wayne Hospitalerum or plasma anion gap determinationOrdered By: Osvaldo Pete on 94-96-8035Ulfve gap [Moles/Vol]Serum or plasma anion gap determinationHigh6.0-15.0[facility] Anion gap [Moles/Vol]25.8 mmol/LHigh6.0-15.0[facility] Comment on above:Performed By: #### BMP ####[address] [place] [address] USASodium [Moles/volume] in Serum or Plasma Ordered By: Osvaldo Peet on 68-08-6188Ovzzso [Moles/Vol]Sodium [Moles/volume] in Serum or BbfwcgKia664-945JgyofbdksWayne Hospitalodium [Moles/Vol] 134 mmol/TLdj263-113KqnsohlssMercy Health West HospitalComment on above:Performed By: #### BMP ####[address] [place] [address] USAUrea nitrogen [Mass/volume] in Serum or PlasmaOrdered By: Osvaldo Pete on 09-60-2822Xqtf nitrogen [Mass/Vol]Urea nitrogen [Mass/volume] in Serum or PlasmaHigh7-[facility] HospitalUrea nitrogen [Mass/Vol] 29 mg/dLHigh-[facility] HospitalComment on above:Performed By: #### BMP ####[address] [place] [address] USAWBC Auto (Bld) [#/Vol]Ordered By: Osvaldo Pete on 48-29-2835YFY (Bld) [#/Vol]Leukocytes [#/volume] in Blood by Automated countHigh3.8-11.6FProMedica Defiance Regional HospitalAlbumin [Mass/volume] in Serum or Plasma by Bromocresol green (BCG) dye binding methoOrdered By: Carmita Baker on 58-01-0089Tsatvid BCG dye [Mass/Vol]Albumin [Mass/volume] in Serum or Plasma by Bromocresol green (BCG) dye binding methoLow3.5-5.7FProMedica Defiance Regional HospitalAlbumin BCG dye [Mass/Vol]3.0 g/dLLow3.5-5.7FProMedica Defiance Regional HospitalCalcium [Mass/volume] in Serum or PlasmaOrdered By: Carmita Baker on 65-31-1063Meknfpw [Mass/Vol]Calcium [Mass/volume] in Serum or PlasmaLow8.6-10.3FProMedica Defiance Regional HospitalCalcium [Mass/Vol]8.2 mg/dLLow8.6-10.3FProMedica Defiance Regional HospitalComment on above:Performed By: #### RENAL ####[facility] [place] [address] USACarbon dioxide, total [Moles/volume] in Serum or PlasmaOrdered By: Carmita Baker on 93-62-9220IV8 [Moles/Vol]Carbon dioxide, total [Moles/volume] in Serum or Tfutji27.0-31.0[facility] HospitalCO2 [Moles/Vol]24.1 mmol/SWsoulm68.0-31.0[facility] HospitalComment on above:Performed By: #### RENAL ####[address] [place] [address] USAChloride [Moles/volume] in Serum or PlasmaOrdered By: Carmita Baker on 91-72-4862Nqyfuqjr [Moles/Vol]Chloride [Moles/volume] in Serum or LkhqqmQud24-018AnsjxtcycMercy Health West Hospital Chloride [Moles/Vol]96 mmol/YFrl85-438VzkdwkxhjMercy Health West HospitalComment on above:Performed By: #### RENAL ####[address] [place] [address] USACreatinine [Mass/volume] in Serum or PlasmaOrdered By: Carmita Baker on 43-20-9834Dvqxbrvuph [Mass/Vol]Creatinine [Mass/volume] in Serum or PlasmaSignificant change up0.60-1.20[facility] Comment on above:Delta: 2.83 on 03/09/25-0454Creatinine [Mass/Vol]3.85 mg/dL Significant change up0.60-1.20[facility] HospitalComment on above: Delta: 2.83 on 03/09/25-0454Performed By: #### RENAL ####[address] [place] [address] USAGlucose [Mass/volume] in Serum or PlasmaOrdered By: Carmita Baker on 80-50-5088Tmdzydm [Mass/Vol]Glucose [Mass/volume] in Serum or IzbrdjPneq85-397Wyxcfeguu[address] Comment on above:ADA recommended reference rangeRandom Glucose Reference Range is dependent on time and content of last meal. Glucose of more than 200 mg/dL in a nonstressed, ambulatory subject supports the diagnosisof Diabetes Mellitus. Glucose [Mass/Vol]126 mg/eRPhpb79-688Padoocxcr38 Lee StreetComment on above:ADA recommended reference rangeRandom Glucose Reference Range is dependent on time and content of last meal. Glucose of more than 200 mg/dL in a nonstressed, ambulatory subject supports the diagnosisof Diabetes Mellitus. Result Comment: Random Glucose Reference Range is dependent on time and content of last meal. Glucose of more than 200 mg/dL in a nonstressed, ambulatory subject supports the diagnosis of Diabetes Mellitus. ADA recommended reference rangePerformed By: #### RENAL ####[address] [address] USANo Panel InformationOrdered By: Carmita Baker on 53-09-4827Hcfwctoez GFR (CKD-EPI)13.280 mL/MinMercy Health West Hospital Pharmacy Creatinine Clearance (Chem17.[facility] Phosphate [Mass/volume] in Serum or PlasmaOrdered By: Carmita Baker on 03-10-2025 Phosphate [Mass/Vol]Phosphate [Mass/volume] in Serum or Plasma2.5-4.5FProMedica Defiance Regional HospitalPhosphate [Mass/Vol]3.9 mg/dLNormal2.5-4.5FProMedica Defiance Regional HospitalComment on above:Performed By: #### RENAL ####[address] [address] USAPotassium [Moles/volume] in Serum or PlasmaOrdered By: Carmita Baker on 22-16-7052Srdabamxz [Moles/Vol]Potassium [Moles/volume] in Serum or Plasma3.5-5.1FProMedica Defiance Regional HospitalPotassium [Moles/Vol]4.0 mmol/LNormal3.5-5.1FProMedica Defiance Regional HospitalComment on above:Performed By: #### RENAL ####[address] [address] USARenal Function Panelon 47-38-7564Unjidxi [Mass/Vol]3.0 g/dLLow3.5-5.7[facility] Comment on above:Performed By: #### RENAL ####[address] [address] USACreatinine Clr Calc Nhxwpqay14.NoNovant Health Ballantyne Medical Center Physician GroupComment on above:Result Comment: PERFORMED BY:[address] [place], [place] [id number] MEDICAL DIRECTORKEMAL ACKERMAN M.D.Performed By: #### RENAL ####[address] [place] [address] [facility] Estimated GFR13.280 mL/MinOrlando Health Winnie Palmer Hospital for Women & Babies Physician GroupComment on above: Performed By: #### RENAL ####[place] [id number] USASerum or plasma anion gap determinationOrdered By: Carmita Samuel on 87-12-5819Jrrlk gap [Moles/Vol]Serum or plasma anion gap determination6.0-15.0[facility] HospitalAnion gap [Moles/Vol]13.9 mmol/LNormal6.0-15.0[facility] HospitalComment on above:Performed By: #### RENAL ####[place] [id number] USASodium [Moles/volume] in Serum or PlasmaOrdered By: Carmita Samuel on 91-27-4716Obbnlq [Moles/Vol]Sodium [Moles/volume] in Serum or XvdtjbWtp264-607 Wayne Hospitalodium [Moles/Vol]130 mmol/MFee736-322FwldcuzieMercy Health West HospitalComment on above:Performed By: #### RENAL ####[place] [address] USAUrea nitrogen [Mass/volume] in Serum or PlasmaOrdered By: Carmita Samuel on 60-59-3422Ujhf nitrogen [Mass/Vol]Urea nitrogen [Mass/volume] in Serum or PlasmaHigh7-25 [facility] HospitalUrea nitrogen [Mass/Vol]27 mg/dLHigh7-25 [facility] HospitalComment on above:Performed By: #### RENAL ####[place] [address] USAAlanine aminotransferase [Enzymatic activity/volume] in Serum or PlasmaOrdered By: Jose Pate on 00-48-5432EQJ [Catalytic activity/Vol]Alanine aminotransferase [Enzymatic activity/volume] in Serum or Plasma7[facility] HospitalALT [Catalytic activity/Vol]8 U/LNormalMercy Health West HospitalComment on above:Performed By: #### MG, CMP, PAB, PHOS ####[facility] [place] [id number] [place] Alkaline phosphatase [Enzymatic activity/volume] in Serum or PlasmaOrdered By: Jose Pate on 72-13-3887SAZ [Catalytic activity/Vol]Alkaline phosphatase [Enzymatic activity/volume] in Serum or Aesxej80-842MiyfnpyyhMercy Health West HospitalALP [Catalytic activity/Vol]97 U/XEuzbkg97-487Qzhyikzar51 Wright StreetComment on above:Performed By: #### MG, CMP, PAB, PHOS ####[address] [address] [place] [id number] USAAspartate aminotransferase [Enzymatic activity/volume] in Serum or PlasmaOrdered By: Jose Pate on 20-79-7901UCN [Catalytic activity/Vol]Aspartate aminotransferase [Enzymatic activity/volume] in Serum or Ibceck10-36Iotoudyjp33 Williams StreetAST [Catalytic activity/Vol]20 U/WIvfwew83-98Pzidkokiz33 Williams StreetComment on above:Performed By: #### MG, CMP, PAB, PHOS ####[place] [id number] [place] Basophils Auto (Bld) [#/Vol]Ordered By: Jose Pate on 29-09-2037Kepnagatc (Bld) [#/Vol]Automated basophil count0.0-0.2FProMedica Defiance Regional Hospital Basophils [#/volume] in Blood by Automated countOrdered By: Jose Pate on 26-46-8716Srpkxhozv (Bld) [#/Vol]0.1 10*3/uLNormal0.0-0.2FProMedica Defiance Regional HospitalComment on above:Performed By: #### SCAN CBC ####[place] [id number] USABasophils/100 WBC Auto (Bld)Ordered By: Jose Pate on 28-81-1550Crjihmjuc/100 WBC (Bld) Automated basophil %.[facility] HospitalBasophils/100 leukocytes in Blood by Automated countOrdered By: Jose Pate on 03-09-2025 Basophils/100 WBC (Bld)0.6 %Normal.[facility] HospitalComment on above:Performed By: #### SCAN CBC ####[place] [id number] USABilirubin.total [Mass/volume] in Serum or Plasma Ordered By: Jose Pate on 84-34-1469Qypyhighe [Mass/Vol]Bilirubin.total [Mass/volume] in Serum or Plasma0.3-1.0[facility] Bilirubin [Mass/Vol]0.3 mg/dLNormal0.3-1.0[facility] Comment on above:Performed By: #### MG, CMP, PAB, PHOS ####[place] [id number] USACapillary blood glucose measurement by glucometer (mass/volume)Ordered By: Kemal Yu on 86-31-2745Wqgpsft [Mass/Vol]188 mg/dLNoDayton VA Medical Center Comment on above:Random Glucose Reference Range is dependent on time and content of last meal. Glucose of more than 200 mg/dL in a nonstressed, ambulatory subject supports the diagnosis of Diabetes Mellitus.Result Comment: Random Glucose Reference Range is dependent on time and content of last meal. Glucose of more than 200 mg/dL in a nonstressed, ambulatory subject supports the diagnosis of Diabetes Mellitus.PERFORMED BY:[address] [place], [place] [phone] MEDICAL DIRECTORMOCINDY ACKERMAN M.D.Performed By: #### GLULS ####Point of Care testing,Comprehensive Metabolic Panelon 03-88-2824Oyophvy [Mass/Vol]3.0 g/dLLow 3.5-5.7The [facility] Physician GroupComment on above:Performed By: #### MG, CMP, PAB, PHOS ####[place] [id number] USAAnion gap [Moles/Vol]12.7 mmol/LNormal6.0-15.0[facility] Comment on above:Performed By: #### MG, CMP, PAB, PHOS ####[place] [address] USACalcium [Mass/Vol]8.2 mg/dLLow 8.6-10.3The [facility] Physician GroupComment on above:Performed By: #### MG, CMP, PAB, PHOS ####[place] [address] USAChloride [Moles/Vol]99 mmol/UDhwulq94-246Mrr [facility] Comment on above:Performed By: #### MG, CMP, PAB, PHOS ####[place] [address] USACO2 [Moles/Vol]25.3 mmol/L Hxccyf95.0-31.0The [facility] Physician GroupComment on above:Performed By: #### MG, CMP, PAB, PHOS ####[place] [address] USACreatinine [Mass/Vol]2.83 mg/dLSignificant change up0.60-1.20The [facility] Physician GroupComment on above:Performed By: #### MG, CMP, PAB, PHOS ####[place] [address] [place] Creatinine Clr Calc Dcgkoxyd11.01NoNovant Health Ballant[facility] Center Physician [facility] HospitalComment on above:Performed By: #### MG, CMP, PAB, PHOS ####[place] [address] USAEstimated GFR19.213 mL/MinNoNovant Health Ballantyne Medical Center Physician GroupComment on above:Performed By: #### MG, CMP, PAB, PHOS ####[place] [id number] USAGlucose [Mass/Vol]153 mg/lUDdqt01-998Noe [facility] Physician GroupComment on above: Result Comment: Random Glucose Reference Range is dependent on time and content of last meal. Glucose of more than 200 mg/dL in a nonstressed, ambulatory subject supports the diagnosis of Diabetes Mellitus. ADA recommended reference rangePerformed By: #### MG, CMP, PAB, PHOS ####[place] [address] [place] [address] USAPotassium [Moles/Vol]4.0 mmol/LNormal 3.5-5.1The [facility] Physician GroupComment on above:Performed By: #### MG, CMP, PAB, PHOS ####[place] [address] USASodium [Moles/Vol]133 mmol/KCia481-963Bkn [facility] Physician GroupComment on above:Performed By: #### MG, CMP, PAB, PHOS ####[place] [address] USAUrea nitrogen [Mass/Vol]17 mg/dLNormal [facility] Physician GroupComment on above:Performed By: #### MG, CMP, PAB, PHOS ####[place] [address] USAEosinophils Auto (Bld) [#/Vol]Ordered By: Jose Ehrlinda on 03-09-2025 Eosinophils (Bld) [#/Vol]Automated eosinophil countHigh0.0-0.45[facility] HospitalEosinophils [#/volume] in Blood by Automated countOrdered By: Jose Herlinda on 85-24-5929Uerqossbfkd (Bld) [#/Vol]0.5 10*3/uLHigh 0.0-0.45[facility] HospitalComstraith hospital for special surgery on above:Performed By: #### SCAN CBC ####[place] [address] USAEosinophils/100 WBC Auto (Bld)Ordered By: Jose Herlinda on 03-09-2025 Eosinophils/100 WBC (Bld)Automated eosinophil %.[facility] HospitalEosinophils/100 leukocytes in Blood by Automated countOrdered By: Jose Herlinda on 06-91-6205Snqkeidlwwr/100 WBC (Bld)3.4 %Normal.[facility] HospitalComment on above:Performed By: #### SCAN CBC ####[place] [id number] [facility]ALErythrocyte distribution width Auto (RBC) [Ratio]Ordered By: Jose Pate on 03-09-2025 Erythrocyte distribution width (RBC) [Ratio]Erythrocyte distribution width [Ratio] by Automated count11.9-15.3FProMedica Defiance Regional HospitalErythrocyte distribution width [Ratio] by Automated countOrdered By: Jose Pate on 46-06-4512Zudooudlggb distribution width (RBC) [Ratio]14.2 %Wlxdbl10.9-15.3 [facility] HospitalComment on above:Performed By: #### SCAN CBC ####[place] [id number] [facility] Erythrocyte morphology finding [Identifier] in BloodOrdered By: Jose Pate on 28-92-2995ENE morphology finding Nom (Bld)RBC morphologyNormalMercy Health West HospitalRB morphology finding Nom (Bld)NormalNormalNormal [facility] HospitalComment on above:Performed By: #### SCAN CBC ####[place] [id number] [facility] Erythrocytes [#/volume] in Blood by Automated countOrdered By: Jose Pate on 24-04-5545MOO (Bld) [#/Vol]2.95 10*6/uLLow3.60-5.00[facility] HospitalComment on above:Performed By: #### SCAN CBC ####[address] StreetGlobulin Calc (S) [Mass/Vol] Ordered By: Jose Pate on 55-62-6025Xerzyfbu (S) [Mass/Vol]Serum globulin measurement by calculation (mass/volume)[facility] HospitalGlucose Glucometer (BldC) [Mass/Vol]Ordered By: Kemal Yu on 03-09-2025 Glucose [Mass/Vol]Capillary blood glucose measurement by glucometer (mass/volume)[facility] HospitalComment on above:Random Glucose Reference Range is dependent on time and content of last meal. Glucose of more than 200 mg/dL in a nonstressed, ambulatory subject supports the diagnosis of Diabetes Mellitus.Glucose Poct Glucometerson 60-55-0658Jfnusxg [Mass/Vol]171 mg/dLNoNovant Health Ballantyne Medical Center Physician GroupComment on above:Result Comment: Random Glucose Reference Range is dependent on time and content of last meal. Glucose of more than 200 mg/dL in a nonstressed, ambulatory subject supports the diagnosis of Diabetes Mellitus.PERFORMED BY:[place] [address] [place] [place], [place] [phone] MEDICAL DIRECTORKEMAL ACKERMAN M.D.Performed By: #### GLULS ####Point of Care testing,Hematocrit Auto (Bld) [Volume fraction]Ordered By: Jose Pate on 52-43-2014Mqyoqflmfq (Bld) [Volume fraction]Hematocrit [Volume Fraction] of Blood by Automated khymgUig07.0-46.4FProMedica Defiance Regional HospitalHematocrit [Volume Fraction] of Blood by Automated countOrdered By: Jose Pate on 65-86-2780Tbiieibyre (Bld) [Volume fraction]25.1 %Low34.0-46.4FProMedica Defiance Regional HospitalComment on above:Performed By: #### SCAN CBC ####[address] [address] USAHemoglobin [Mass/volume] in BloodOrdered By: Jose Pate on 70-29-7560Xlwibrtcvo (Bld) [Mass/Vol]Hemoglobin [Mass/volume] in HdbtfIbx51.8-15.4FProMedica Defiance Regional HospitalHemoglobin (Bld) [Mass/Vol]8.0 g/dLLow11.8-15.4FProMedica Defiance Regional HospitalComment on above:Performed By: #### SCAN CBC ####[address] [address] USALeukocytes [#/volume] corrected for nucleated erythrocytes in Blood by Automated counOrdered By: Jose Pate on 75-07-8173CHI corrected for nucl RBC Auto (Bld) [#/Vol] Leukocytes [#/volume] corrected for nucleated erythrocytes in Blood by Automated counHigh3.8-11.6FProMedica Defiance Regional HospitalWBC corrected for nucl RBC Auto (Bld) [#/Vol]14.7 10*3/uLHigh3.8-11.[address] [place] [address] Leukocytes [#/volume] in Blood by Automated countOrdered By: Jose Herlinda on 70-85-6523QYW (Bld) [#/Vol]14.7 10*3/uLHigh3.8-11.6FProMedica Defiance Regional HospitalComment on above:Performed By: #### SCAN CBC ####[place] [address] [place] [address] USALymphocytes Auto (Bld) [#/Vol] Ordered By: Jose Herlinda on 91-59-6711Nvchttesfgr (Bld) [#/Vol]Lymphocytes [#/volume] in Blood by Automated count1.00-4.8[facility] Lymphocytes [#/volume] in Blood by Automated countOrdered By: Jose Herlinda on 21-18-2845Kgltkcbqwdz (Bld) [#/Vol]1.5 10*3/uLNormal1.00-4.8[facility] HospitalComment on above:Performed By: #### SCAN CBC ####[place] [id number] USALymphocytes/100 WBC Auto (Bld)Ordered By: Jose Morrowmood on 80-38-3883Nlxodwvqags/100 WBC (Bld) Lymphocytes/100 leukocytes in Blood by Automated count.[facility] HospitalLymphocytes/100 leukocytes in Blood by Automated countOrdered By: Jose Herlinda on 75-07-0042Fwpbnyzqoxf/100 WBC (Bld)10.4 %Normal.[facility] HospitalComment on above:Performed By: #### SCAN CBC ####[place] [id number] USAH Auto (RBC) [Entitic mass]Ordered By: Jose Herlinda on 83-34-0493QUH (RBC) [Entitic mass]MCH [Entitic mass] by Automated count24.7-34.3FTrinity Health SystemH [Entitic mass] by Automated countOrdered By: Jose Herlinda on 01-46-3497RQE (RBC) [Entitic mass]27.3 yrKusbbx91.7-34.3FProMedica Defiance Regional HospitalComment on above:Performed By: #### SCAN CBC ####[facility] [address] [place] [address] [facility]AL[facility]ATEHC Auto (RBC) [Mass/Vol]Ordered By: Jose Herlinda on 63-12-0775ZXRL (RBC) [Mass/Vol]MCHC [Mass/volume] by Automated count32.0-35.0[facility] CenterHC (RBC) [Mass/Vol]32.1 g/dL32.0-35.0[facility] Medical CenterV Auto (RBC) [Entitic vol]Ordered By: Jose Herlinda on 02-50-0220DIE (RBC) [Entitic vol]MCV [Entitic volume] by Automated tpydn45-197XqlchrvpiUniversity Hospitals Conneaut Medical CenterV [Entitic volume] by Automated countOrdered By: Jose Herlinda on 14-36-0151PYJ (RBC) [Entitic vol]85.0 dYPhuesx63-871ZdpoytjitMercy Health West HospitalComment on above:Performed By: #### SCAN CBC ####[place] [place] [address] USAMagnesium [Mass/volume] in Serum or PlasmaOrdered By: Jose Herlinda on 66-27-0801Yqlhnrbxe [Mass/Vol] Magnesium [Mass/volume] in Serum or PlasmaLow1.9-2.7FProMedica Defiance Regional HospitalMagnesium [Mass/Vol]1.7 mg/dLLow1.9-2.7FProMedica Defiance Regional Hospital Comment on above:Performed By: #### MG, CMP, PAB, PHOS ####[facility] [address] [place] [address] USAMonocytes Auto (Bld) [#/Vol] Ordered By: Jose Herlinda on 80-25-8638Mpziarolk (Bld) [#/Vol]Automated blood monocyte countHigh0.0-0.8[facility] HospitalMonocytes [#/volume] in Blood by Automated countOrdered By: Jose Herlinda on 31-36-9223Agyxenrqc (Bld) [#/Vol]1.6 10*3/uLHigh0.0-0.8[facility] HospitalComment on above:Performed By: #### SCAN CBC ####[address] [address] USAMonocytes/100 WBC Auto (Bld)Ordered By: Jose Herlinda on 04-82-8627Dcqcozifu/100 WBC (Bld)Automated monocyte %.[facility] HospitalMonocytes/100 leukocytes in Blood by Automated count Ordered By: Jose Herlinda on 12-38-3806Dpeojrory/100 WBC (Bld)11.0 %Normal. [facility] HospitalComment on above:Performed By: #### SCAN CBC ####[address] [address] [place] Neutrophils Auto (Bld) [#/Vol]Ordered By: Jose Herlinda on 03-09-2025 Neutrophils (Bld) [#/Vol]Neutrophils [#/volume] in Blood by Automated countHigh 1.8-7.7FProMedica Defiance Regional HospitalNeutrophils [#/volume] in Blood by Automated countOrdered By: Jose Herlinda on 56-60-5861Wsxkorawksh (Bld) [#/Vol]11.0 10*3/uLHigh1.8-7.7FProMedica Defiance Regional HospitalComment on above: Performed By: #### SCAN CBC ####[address] [address] USANeutrophils/100 WBC Auto (Bld)Ordered By: Jose Herlinda on 63-02-8391Nzxkhxmrxbk/100 WBC (Bld)Automated neutrophil %.[facility] HospitalNeutrophils/100 leukocytes in Blood by Automated count Ordered By: Jose Herlinda on 73-35-6097Zilcziiihut/100 WBC (Bld)74.6 %Normal. [facility] HospitalComment on above:Performed By: #### SCAN CBC ####[place] [address] [place] [id number] USANo Panel InformationOrdered By: Jose Pate on 64-80-7768PJU CommentSee comment [facility] HospitalComment on above:Absolute monocytosis is commonly reactive in nature. However, if unexplained, recommend follow-up CBC in 3 months to evaluate for persistence.Nucleated erythrocytes [Presence] in Blood by Automated countOrdered By: Jose Pate on 67-84-9467Gvfmaxvhz RBC Auto Ql (Bld)Nucleated erythrocytes [Presence] in Blood by Automated count0-0.5 [facility] HospitalNucleated RBC Auto Ql (Bld)0.1 /100{WBC}0-0.5 [facility] HospitalPhosphoruson 69-16-1435Enddohgjh [Mass/Vol]2.6 mg/dLNormal2.5-4.5The [facility] Physician GroupComment on above:Performed By: #### MG, CMP, PAB, PHOS ####[place] [id number] USAPlatelet adequacy [Presence] in Blood by Light microscopyOrdered By: Jose Pate on 29-27-2331Uabwuydgo LM Ql (Bld)Platelet adequacy [Presence] in Blood by Light microscopyNoDayton VA Medical CenterPlatelets LM Ql (Bld)NormalNormKindred Healthcare Platelet mean volume Auto (Bld) [Entitic vol]Ordered By: Jose Pate on 00-26-5605Rfpwrlmp mean volume (Bld) [Entitic vol]Platelet mean volume [Entitic volume] in Blood by Automated count6.3-10.7FProMedica Defiance Regional Hospital Platelet mean volume [Entitic volume] in Blood by Automated countOrdered By: Jose Pate on 29-44-4732Hjxvevwi mean volume (Bld) [Entitic vol]10.2 fL Normal6.3-10.7FProMedica Defiance Regional HospitalComment on above:Performed By: #### SCAN CBC ####[place] [id number] USAPlatelet morphology finding [Identifier] in BloodOrdered By: Jose Pate on 52-20-7460Rxltdhjv morphology finding Nom (Bld)Platelet morphology finding [Identifier] in BloodMercy Health West HospitalPlatelet morphology finding Nom (Bld)N/AFProMedica Defiance Regional HospitalPlatelets Auto (Bld) [#/Vol]Ordered By: Jose Pate on 16-43-3387Wvnnnghwm (Bld) [#/Vol] Platelets [#/volume] in Blood by Automated rjvyg826-983GglukucobMercy Health West HospitalPlatelets Large [Presence] in Blood by Light microscopyOrdered By: Jose Pate on 33-26-8800Tuguygdra Large LM Ql (Bld)Platelets Large [Presence] in Blood by Light microscopyMercy Health West Hospital Platelets Large LM Ql (Bld)SlightMercy Health West HospitalPlatelets [#/volume] in Blood by Automated countOrdered By: Jose Pate on 03-09-2025 Platelets (Bld) [#/Vol]232 10*3/jIJlnuoa004-176FktsgdvnvMercy Health West Hospital Comment on above:Performed By: #### SCAN CBC ####[facility] [address] [place] [address] USAPrealbumin [Mass/volume] in Serum or PlasmaOrdered By: Kemal Yu on 81-60-4233Iijzwgwfcz [Mass/Vol] Prealbumin [Mass/volume] in Serum or PxkgzqYej69.0-34.0[facility] HospitalPrealbumin [Mass/Vol]13.3 mg/dLLow17.0-34.0[facility] HospitalComment on above:Result Comment: PERFORMED BY:[address] [place], [place] [phone] MEDICAL DIRECTORKEMAL ACKERMAN M.D.Performed By: #### MG, CMP, PAB, PHOS ####[facility] [address] [place] [address] USAProtein [Mass/volume] in Serum or PlasmaOrdered By: Jose Pate on 03-09-2025 Protein [Mass/Vol]Protein [Mass/volume] in Serum or Plasma6.4-8.9[facility] HospitalProtein [Mass/Vol]6.6 g/dLNormal6.4-8.9[facility] HospitalComment on above:Performed By: #### MG, CMP, PAB, PHOS ####[address] [place] [address] USARBC Auto (Bld) [#/Vol]Ordered By: Jose Pate on 25-65-0091BYS (Bld) [#/Vol] Erythrocytes [#/volume] in Blood by Automated countLow3.60-5.00Wayne Hospitalcan and CBCon 53-96-1360Poorikhmsb CommentsNormalThSt. [facility]'s [facility] Physician [facility] Community HospitalComment on above:Result Comment: Absolute monocytosis is commonly reactive in nature. However, if unexplained, recommend follow-up CBC in 3 months to evaluate for persistence.PERFORMED BY:[address] [place], [place] [phone] MEDICAL DIRECTORMOCINDY WINTERSPerformed By: #### SCAN CBC ####[address] [address] USALarge PlateletsSlight NormalThe [facility] Physician [facility] Community HospitalComment on above:Performed By: #### SCAN CBC ####[address] [address] USAMean Corpuscular HGB Conc32.1 g/iLRdifre72.0-35.0The [facility] Physician [facility] Community HospitalComment on above:Performed By: #### SCAN CBC ####[address] [address] USANRBC%0.1 /100{WBC}Normal0-0.5The [facility] Physician [facility] Community HospitalComment on above:Performed By: #### SCAN CBC ####[address] [address] USAPlatelet Estimate NormalNormalNormalThe [facility] Physician [facility] Community HospitalComment on above:Performed By: #### SCAN CBC ####[address] [place] [address] USASerum globulin measurement by calculation (mass/volume)Ordered By: Jose Pate on 92-02-3334Bpvqtqjb (S) [Mass/Vol]3.6 g/dLNormalMercy Health West HospitalComment on above:Performed By: #### MG, CMP, PAB, PHOS ####[place] [id number] USASerum or plasma albumin/globulin mass ratioOrdered By: Jose Pate on 03-09-2025 Albumin/Globulin [Mass ratio]Serum or plasma albumin/globulin mass ratio [facility] HospitalAlbumin/Globulin [Mass ratio]0.8 {ratio}Normal [facility] HospitalComment on above:Performed By: #### MG, CMP, PAB, PHOS ####[place] [id number] USAWBC Auto (Bld) [#/Vol]Ordered By: Jose Pate on 85-59-2759YVQ (Bld) [#/Vol]Leukocytes [#/volume] in Blood by Automated countHigh3.8-11.6FProMedica Defiance Regional HospitalComplete Blood Count Auto Diffon 57-09-7476Pxryervdl (Bld) [#/Vol]0.0 10*3/uLNormal0.0-0.2The [facility] Hospital Physician GroupComment on above:Result Comment: PERFORMED BY:[address] [place] [place], [place] [phone] MEDICAL DIRECTORKEMAL FLORES M.D.Performed By: #### CBC, MG, CMP ####[address] [address] USABasophils/100 WBC (Bld)0.1 %Normal.The [facility] Hospital Physician GroupComment on above:Performed By: #### CBC, MG, CMP ####[address] [address] [place] Eosinophils (Bld) [#/Vol]0.5 10*3/uLHigh0.0-0.45The [facility] Comment on above:Performed By: #### CBC, MG, CMP ####[place] [id number] USAEosinophils/100 WBC (Bld)3.5 %Normal. The [facility] Physician GroupComment on above:Performed By: #### CBC, MG, CMP ####[address] Erythrocyte distribution width (RBC) [Ratio]14.5 %Eiwsbv09.9-15.3The [facility] Hospital Physician GroupComment on above:Performed By: #### CBC, MG, CMP ####[place] [address] USAHematocrit (Bld) [Volume fraction]26.6 %Low34.0-46.4The [facility] Physician GroupComment on above:Performed By: #### CBC, MG, CMP ####[place] [address] USAHemoglobin (Bld) [Mass/Vol]8.5 g/dLLow 11.8-15.4The [facility] Physician GroupComment on above:Performed By: #### CBC, MG, CMP ####[place] [address] USALymphocytes (Bld) [#/Vol]1.5 10*3/uLNormal1.00-4.8The [facility] Physician GroupComment on above:Performed By: #### CBC, MG, CMP ####[place] [id number] USALymphocytes/100 WBC (Bld)9.7 % Normal.The [facility] Physician GroupComment on above:Performed By: #### CBC, MG, CMP ####[place] [id number] [place] MCH (RBC) [Entitic mass]27.0 nnZjeizh54.7-34.3The [facility] Comment on above:Performed By: #### CBC, MG, CMP ####[address] [place] [address] USAMCV (RBC) [Entitic vol]85.0 fLNormal 80-100The [facility] Physician GroupComment on above:Performed By: #### CBC, MG, CMP ####[address] Mean Corpuscular HGB Conc31.7 g/dLLow32.0-35.0[facility] Comment on above:Performed By: #### CBC, MG, CMP ####[place] [id number] USAMonocytes (Bld) [#/Vol]1.5 10*3/uLHigh 0.0-0.8The [facility] Physician GroupComment on above:Performed By: #### CBC, MG, CMP ####[place] [id number] [place] Monocytes/100 WBC (Bld)9.7 %Normal.The [facility] Physician GroupComment on above:Performed By: #### CBC, MG, CMP ####[place] [id number] USANeutrophils (Bld) [#/Vol]11.6 10*3/uLHigh 1.8-7.7The [facility] Physician GroupComment on above:Performed By: #### CBC, MG, CMP ####[place] [id number] [place] Neutrophils/100 WBC (Bld)77.0 %Normal.The [facility] Physician GroupComment on above:Performed By: #### CBC, MG, CMP ####[place] [id number] USANRBC%0.1 /100{WBC}Normal0-0.5The [facility] Physician GroupComment on above:Performed By: #### CBC, MG, CMP ####[place] [id number] USAPlatelet mean volume (Bld) [Entitic vol]9.1 fLNormal6.3-10.7The [facility] Physician GroupComment on above:Performed By: #### CBC, MG, CMP ####[place] [address] USAPlatelets (Bld) [#/Vol]255 10*3/uLNormal 150-450The [facility] Physician GroupComment on above:Performed By: #### CBC, MG, CMP ####[place] [address] [place] RBC (Bld) [#/Vol]3.14 10*6/uLLow3.60-5.00The [facility] Physician GroupComment on above:Performed By: #### CBC, MG, CMP ####[place] [address] USAWBC (Bld) [#/Vol]15.1 10*3/uLHigh3.8-11.6The [facility] Physician GroupComment on above:Performed By: #### CBC, MG, CMP ####[address] Comprehensive Metabolic Panelon 18-00-3009Wxxhjoo [Mass/Vol]3.1 g/dLLow3.5-5.7 The [facility] Physician GroupComment on above:Performed By: #### CBC, MG, CMP ####[address] Albumin/Globulin [Mass ratio]0.8 {ratio}NormalThe [facility] Physician Group Comment on above:Performed By: #### CBC, MG, CMP ####[place] [address] USAALP [Catalytic activity/Vol]84 U/L Vjaywu06-092Mai [facility] Physician GroupComment on above:Performed By: #### CBC, MG, CMP ####[place] [address] USAALT [Catalytic activity/Vol]6 U/LLow7-52The [facility] Comment on above:Performed By: #### CBC, MG, CMP ####[place] [address] USAAnion gap [Moles/Vol]13.0 mmol/LNormal 6.0-15.0[facility] Physician [facility] HospitalComment on above:Performed By: #### CBC MG, CMP ####[place] [address] USAAST [Catalytic activity/Vol]14 U/TZmbsiq10-21Jts [facility] Phys[facility] Comment on above:Performed By: #### CBC, MG, CMP ####[place] [address] USABilirubin [Mass/Vol]0.3 mg/dLNormal 0.3-1.0[facility] Physician [facility] HospitalComment on above:Performed By: #### GRICELDA MG, CMP ####[place] [address] [place] Calcium [Mass/Vol]8.3 mg/dLLow8.6-10.3The [facility] Physician [facility] HospitalComment on above:Performed By: #### CBC MG, CMP ####[place] [address] USAChloride [Moles/Vol]95 mmol/STjw63-473Fsf [place] Physician [facility] HospitalComment on above:Performed By: #### GRICELDA MG, CMP ####[place] [address] USACO2 [Moles/Vol]28.0 mmol/CBiycqq89.0-31.0[facility] Physician [facility] HospitalComment on above:Performed By: #### CBC, MG, CMP ####[place] [address] USACreatinine [Mass/Vol]4.06 mg/dLSignificant change up0.60-1.20The [facility] Physician [facility] HospitalComment on above:Performed By: #### CBC, MG, CMP ####[place] [address] USACreatinine Clr Calc Lnetuaew36.04NormalThSt. Luke[facility] Physician [facility] Comment on above:Performed By: #### CBC, MG, CMP ####[place] [address] USAEstimated GFR12.460 mL/MinNormTriHealthe [facility] Physician GroupComment on above:Performed By: #### CBC, MG, CMP ####[place] [id number] [place] Globulin (S) [Mass/Vol]3.8 g/dLNoNovant Health Ballantyne Medical Center Physician GroupComment on above:Performed By: #### CBC, MG, CMP ####[place] [address] USAGlucose [Mass/Vol]162 mg/zSKanv49-741Utc [facility] Physician GroupComment on above:Result Comment: Random Glucose Reference Range is dependent on time and content of last meal. Glucose of more than 200 mg/dL in a nonstressed, ambulatory subject supports the diagnosis of Diabetes Mellitus. ADA recommended reference rangePerformed By: #### CBC, MG, CMP ####[place] [address] [place] Potassium [Moles/Vol]4.0 mmol/LNormal3.5-5.1The [facility] Physician GroupComment on above:Performed By: #### CBC, MG, CMP ####[place] [id number] USAProtein [Mass/Vol]6.9 g/dLNormal6.4-8.9The [facility] Physician GroupComment on above:Performed By: #### CBC, MG, CMP ####[place] [address] USASodium [Moles/Vol]132 mmol/SDwm658-302Uyr [facility] Physician GroupComment on above: Performed By: #### CBC, MG, CMP ####[place] [id number] USAUrea nitrogen [Mass/Vol]29 mg/dLHigh7-25The [facility] Physician GroupComment on above:Performed By: #### CBC, MG, CMP ####[place] [id number] USAGlucose Poct Glucometerson 40-01-6258Yzyziya [Mass/Vol]198 mg/dLNoNovant Health Ballant[facility] Center Physician GroupComment on above:Result Comment: Random Glucose Reference Range is dependent on time and content of last meal. Glucose of more than 200 mg/dL in a nonstressed, ambulatory subject supports the diagnosis of Diabetes Radha litus.PERFORMED BY:[address] [place] [place], [place] [phone] MEDICAL DIRECTORKEMAL ACKERMAN M.D. Performed By: #### GLULS ####Point of Care testing,Glucose [Mass/Vol]268 mg/dL NormalThe [facility] Physician GroupComment on above:Result Comment: Random Glucose Reference Range is dependent on time and content of last meal. Glucose of more than 200 mg/dL in a nonstressed, ambulatory subject supports the diagnosis of Diabetes Mellitus.PERFORMED BY:[address] [place], [place] [phone] MEDICAL DIRECTORMOCINDY ACKERMAN M.D.Performed By: #### GLULS ####Point of Care testing,Glucose [Mass/Vol]157 mg/dLNoNovant Health Ballant[facility] Center Physician GroupComment on above:Result Comment: Random Glucose Reference Range is dependent on time and content of last meal. Glucose of more than 200 mg/dL in a nonstressed, ambulatory subject supports the diagnosis of Diabetes Mellitus.PERFORMED BY:[address] [place], [place] [phone] MEDICAL DIRECTORKEMAL ACKERMAN M.D. Performed By: #### GLULS ####Point of Care testing,Magnesiumon 03-08-2025 Magnesium [Mass/Vol]1.7 mg/dLLow1.9-2.7The [facility] Physician GroupComment on above:Result Comment: PERFORMED BY:[address] [place], [place] [phone] MEDICAL DIRECTORKEMAL FLORES M.D.Performed By: #### CBC, MG, CMP ####[address] [address] USABand form neutrophils/100 WBC Manual cnt (Bld)Ordered By: Jose Pate on 61-80-0472Ldpz form neutrophils/100 WBC (Bld)Peripheral white blood cell differential % bands, microscopic exam0-5 [facility] HospitalBand form neutrophils/100 leukocytes in Blood by Manual countOrdered By: Jose Pate on 69-66-0528Biwy form neutrophils/100 WBC (Bld)1 %Normal0-[facility] HospitalComment on above:Performed By: #### DIFF CBC, CMP, MG ####[place] [place] [address] USABasophils/100 WBC Manual cnt (Bld) Ordered By: Jose Pate on 91-82-4089Dsqftzkmz/100 WBC (Bld)Basophils/100 leukocytes in Blood by Manual count0[facility] Basophils/100 leukocytes in Blood by Manual countOrdered By: Jose Pate on 64-75-6162Lnjqvzkyn/100 WBC (Bld)0 %Normal0[facility] Comment on above:Performed By: #### DIFF CBC, CMP, MG ####[place] [address] [place] [address] USAComprehensive Metabolic Panel on 46-12-6895Gjcnzgp [Mass/Vol]2.9 g/dLLow3.5-5.7The [facility] Comment on above:Performed By: #### DIFF CBC, CMP, MG ####[address] [address] [place] [address] USAAlbumin/Globulin [Mass ratio] 0.9 {ratio}NormalAdventhealth Kissimmee Physician GroupComment on above:Performed By: #### DIFF CBC, CMP, MG ####[place] [place] [address] USAALP [Catalytic activity/Vol]68 U/WZqsovo58-242Jbm [facility] Physician GroupComment on above:Performed By: #### DIFF CBC, CMP, MG ####[place] [address] [place] [address] USAALT [Catalytic activity/Vol]5 U/LLow7-52The [facility] Physician GroupComment on above:Performed By: #### DIFF CBC, CMP, MG ####[place] [address] USAAnion gap [Moles/Vol]11.6 mmol/LNormal 6.0-15.0The [facility] Physician GroupComment on above:Performed By: #### DIFF CBC, CMP, MG ####[place] [address] USAAST [Catalytic activity/Vol]10 U/EMhg89-70Iet [facility] Physician [facility] Comment on above:Performed By: #### DIFF CBC, CMP, MG ####[place] [address] USABilirubin [Mass/Vol]0.2 mg/dL Low0.3-1.0The [facility] Physician GroupComment on above:Performed By: #### DIFF CBC, CMP, MG ####[place] [address] USACalcium [Mass/Vol]8.3 mg/dLLow8.6-10.3The [facility] Comment on above:Performed By: #### DIFF CBC, CMP, MG ####[place] [address] USAChloride [Moles/Vol]95 mmol/L Smf33-455Yxk [facility] Physician GroupComment on above:Performed By: #### DIFF CBC, CMP, MG ####[place] [address] USACO2 [Moles/Vol]28.5 mmol/MUoiyph93.0-31.0The [facility] Comment on above:Performed By: #### DIFF CBC, CMP, MG ####[place] [address] USACreatinine [Mass/Vol]3.09 mg/dLSignificant change up0.60-1.20The [facility] Physician GroupComment on above:Performed By: #### DIFF CBC, CMP, MG ####[place] [address] USACreatinine Clr Calc Gufzipqq51.67 NormalThe [facility] Physician GroupComment on above:Performed By: #### DIFF CBC, CMP, MG ####[place] [address] [place] [address] USAEstimated GFR17.289 mL/MinNormalThe [facility] Physician GroupComment on above:Performed By: #### DIFF CBC, CMP, MG ####[place] [address] USAGlobulin (S) [Mass/Vol]3.4 g/dLNormal The [facility] Physician GroupComment on above:Performed By: #### DIFF CBC, CMP, MG ####[place] [address] [place] Glucose [Mass/Vol]163 mg/dFYyzl21-447Kpf [facility] Physician GroupComment on above:Result Comment: Random Glucose Reference Range is dependent on time and content of last meal. Glucose of more than 200 mg/dL in a nonstressed, ambulatory subject supports the diagnosis of Diabetes Mellitus. ADA recommended reference rangePerformed By: #### DIFF CBC, CMP, MG ####[place] [address] USAPotassium [Moles/Vol]4.1 mmol/LNormal3.5-5.1The [facility] Physician GroupComment on above:Performed By: #### DIFF CBC, CMP, MG ####[place] [address] USAProtein [Mass/Vol]6.3 g/dLLow6.4-8.9The [facility] Physician GroupComment on above:Performed By: #### DIFF CBC, CMP, MG ####[place] [address] USASodium [Moles/Vol]131 mmol/PIfl819-036Jds [facility] Physician GroupComment on above: Performed By: #### DIFF CBC, CMP, MG ####[place] [address] USAUrea nitrogen [Mass/Vol]20 mg/dLNormal7-25The [facility] Physician GroupComment on above:Performed By: #### DIFF CBC, CMP, MG ####[place] [address] USADiff and CBCon 30-34-5728Scvaucijloi distribution width (RBC) [Ratio]13.8 %Normal 11.9-15.3The [facility] Physician GroupComment on above:Performed By: #### DIFF CBC, CMP, MG ####[place] [address] USAHematocrit (Bld) [Volume fraction]21.9 %Low34.0-46.4The [facility] Physician GroupComment on above:Performed By: #### DIFF CBC, CMP, MG ####[address] Hemoglobin (Bld) [Mass/Vol]7.1 g/dLLow11.8-15.4The [facility] Comment on above:Performed By: #### DIFF CBC, CMP, MG ####[address]H (RBC) [Entitic mass]27.4 iuJdcdkk30.7-34.3The [facility] Physician GroupComment on above:Performed By: #### DIFF CBC, CMP, MG ####[address] (RBC) [Entitic vol]85.1 fLBgdqzo40-666Vne [facility] Physician GroupComment on above:Performed By: #### DIFF CBC, CMP, MG ####[place] [address] USAMean Corpuscular HGB Conc32.2 g/mPQunfml97.0-35.0The [facility] Physician GroupComment on above:Performed By: #### DIFF CBC, CMP, MG ####[place] [address] USAPlatelet EstimateNormalNormalNormalThe [facility] Physician GroupComment on above:Performed By: #### DIFF CBC, CMP, MG ####[place] [address] [facility] Platelet mean volume (Bld) [Entitic vol]9.3 fLNormal6.3-10.7The [facility] Physician GroupComment on above:Result Comment: PERFORMED BY:[place] [address] [place] [place], [place] [phone] MEDICAL DIRECTORKEMAL ACKERMAN M.D.Performed By: #### DIFF CBC, CMP, MG ####[place] [address] [facility] Platelet MorphologyNormalNormalNormalThSt. Luke's [facility] Physician [facility] HospitalComment on above:Result Comment: PERFORMED BY:[place] [address] [place], [place] [phone] MEDICAL DIRECTORKEMAL BERMUDEZENCOMPASS HEALTH REHABILITATION HOSPITAL OF SHELBY COUNTYCOLLEEN SommerPerformed By: #### DIFF CBC, CMP, MG ####[place] [address] USAPlatelets (Bld) [#/Vol]231 10*3/rKWgdeva130-879Mzq [facility] HospitalComment on above:Performed By: #### DIFF CBC, CMP, MG ####[place] [address] USARBC (Bld) [#/Vol]2.58 10*6/uLLow3.60-5.00The [facility] Physician [facility] HospitalComment on above:Performed By: #### DIFF CBC, CMP, MG ####[place] [address] USARBC morphology finding Nom (Bld)NormalNormalNormJay Hospital Physician Group Comment on above:Performed By: #### DIFF CBC, CMP, MG ####[place] [address] USAReactive Lymphocytes1 %Normal 0-12The [facility]ician [facility] HospitalComment on above:Performed By: #### DIFF CBC, CMP, MG ####[place] [address] USAWBC (Bld) [#/Vol]13.7 10*3/uLHigh3.8-11.6The [facility] Physician [facility] HospitalComment on above:Performed By: #### DIFF CBC, CMP, MG ####[address] [address] [place] [address] USAEosinophils/100 WBC Manual cnt (Bld) Ordered By: Jose Pate on 76-38-7468Xkkhvipwoqn/100 WBC (Bld) Eosinophils/100 leukocytes in Blood by Manual count1-3FProMedica Defiance Regional HospitalEosinophils/100 leukocytes in Blood by Manual countOrdered By: Jose Pate on 33-69-6131Wdypsiwwjoc/100 WBC (Bld)2 %Normal1-3FProMedica Defiance Regional HospitalComment on above:Performed By: #### DIFF CBC, CMP, MG ####[address] [place] [address] USAGlucose Poct Glucometerson 76-09-7877Gdzrxxt [Mass/Vol]183 mg/dLSt. Gabriel HospitalComment on above:Result Comment: Random Glucose Reference Range is dependent on time and content of last meal. Glucose of more than 200 mg/dL in a nonstressed, ambulatory subject supports the diagnosis of Diabetes Radha litus.PERFORMED BY:[place] [address] [place], [place] [phone] MEDICAL DIRECTORKEMAL ACKERMAN M.D. Performed By: #### GLULS ####Point of Care testing,Glucose [Mass/Vol]225 mg/dL NormalThe [facility] Physician GroupComment on above:Result Comment: Random Glucose Reference Range is dependent on time and content of last meal. Glucose of more than 200 mg/dL in a nonstressed, ambulatory subject supports the diagnosis of Diabetes Mellitus.PERFORMED BY:[address] [place], [place] [phone] MEDICAL DIRECTORKEMAL ACKERMAN M.D.Performed By: #### GLULS ####Point of Care testing,Ywafyfc9Kwf1: Cleaned MeterNormJay Hospital Physician GroupComment on above:Result Comment: PERFORMED BY:[place] [place], [place] [phone] MEDICAL DIRECTORKEMAL FLORES M.D.Performed By: #### GLULS ####Point of Care testing,Glucose [Mass/Vol]177 mg/dLNoNovant Health Ballantyne Medical Center Physician GroupComment on above:Result Comment: Random Glucose Reference Range is dependent on time and content of last meal. Glucose of more than 200 mg/dL in a nonstressed, ambulatory subject supports the diagnosis of Diabetes Mellitus.Performed By: #### GLULS ####Point of Care testing,LeukoReduced RBCon 81-50-1532NesyxHclwshx RBCTRANSFUSED 03/07/25 1012NoNovant Health Ballantyne Medical Center Physician GroupLymphocytes/100 WBC Manual cnt (Bld) Ordered By: Jose Pate on 59-49-1263Pevxkmhhulm/100 WBC (Bld) Lymphocytes/100 leukocytes in Blood by Manual logrsWrj44-63Iihsuia[address] [place], [place] [address]Lymphocytes/100 leukocytes in Blood by Manual countOrdered By: Jose Pate on 69-87-9895Oohdzlfyloi/100 WBC (Bld)9 %Rts13-01Zlvagcyxr47 Rodriguez StreetComment on above:Performed By: #### DIFF CBC, CMP, MG ####[address] [address] [facility] Magnesiumon 38-81-8906Npnwzpadr [Mass/Vol]1.7 mg/dLLow1.9-2.7The [facility] Physician GroupComment on above:Result Comment: PERFORMED BY:[place] [place] [place], [place] [phone] MEDICAL DIRECTORKEMAL ACKERMAN M.D.Performed By: #### DIFF CBC, CMP, MG ####[place] [address] [place] [address] [facility] Monocytes/100 WBC Manual cnt (Bld)Ordered By: Jose Pate on 03-07-2025 Monocytes/100 WBC (Bld)Monocytes/100 leukocytes in Blood by Manual count2- [facility] HospitalMonocytes/100 leukocytes in Blood by Manual countOrdered By: Jose Pate on 01-38-4142Ldhbrjojh/100 WBC (Bld)5 %Normal 2-[facility] HospitalComment on above:Performed By: #### DIFF CBC, CMP, MG ####[facility] [address] [place] [address] USANo Panel InformationOrdered By: Kemal Yu on 03-07-2025 Bedside Glucose CommentGlu2: cleaned [facility] Segmented neutrophils/100 WBC Manual cnt (Bld)Ordered By: Jose Pate on 99-41-5465Rqqzijnpy neutrophils/100 WBC (Bld)Manual blood segmented neutrophils/[address]Hoqn10-09Ebv[address] [place], [place] [address]egmented neutrophils/100 leukocytes in Blood by Manual countOrdered By: Jose Pate on 69-41-0189Hiuosuhxs neutrophils/100 WBC (Bld)82 %Ddjh81-02Hnkbuptla04 [address] StreetComment on above:Performed By: #### DIFF CBC, CMP, MG ####[facility] [address] [place] [address] USAType and Screenon 26-63-6059CGE and Rh group Nom (Bld)Blood group A Rh(D) positive NormalThe [facility] Physician GroupComment on above:Order Comment: Transfuse now? Y Number of units to transfuse now? 1Result Comment: PERFORMED BY:[facility] [place], [place] [phone] MEDICAL DIRECTORMOCINDY ACKERMAN M.D.Variant lymphocytes/100 WBC Manual cnt (Bld)Ordered By: Jose Pate on 49-89-5077Zzjztgy lymphocytes/100 WBC (Bld)Variant lymphocytes/100 leukocytes in Blood by Manual countMercy Health West HospitalVariant lymphocytes/100 WBC (Bld)1 %0[facility] HospitalComplete Blood Count Auto Diffon 65-16-9893Wywlvsdlk (Bld) [#/Vol]0.1 10*3/uLNormal0.0-0.2The [facility] Physician GroupComment on above:Result Comment: PERFORMED BY:[address] [place], [place] [phone] MEDICAL DIRECTORKEMAL FLORES M.D.Performed By: #### CMP, MG, CBC ####[place] [id number] USABasophils/100 WBC (Bld)1.1 %Normal.The [facility] Physician GroupComment on above:Performed By: #### CMP, MG, CBC ####[place] [address] [place] Eosinophils (Bld) [#/Vol]0.5 10*3/uLHigh0.0-0.45The [facility] Comment on above:Performed By: #### CMP, MG, CBC ####[place] [address] USAEosinophils/100 WBC (Bld)3.7 %Normal. The [facility] Physician GroupComment on above:Performed By: #### CMP, MG, CBC ####[place] [address] [place] Erythrocyte distribution width (RBC) [Ratio]13.8 %Ohhepp95.9-15.3The [facility] Physician GroupComment on above:Performed By: #### CMP, MG, CBC ####[place] [address] USAHematocrit (Bld) [Volume fraction]22.1 %Low34.0-46.4The [facility] Physician GroupComment on above:Performed By: #### CMP, MG, CBC ####[place] [address] USAHemoglobin (Bld) [Mass/Vol]7.1 g/dLLow 11.8-15.4The [facility] Physician GroupComment on above:Performed By: #### CMP, MG, CBC ####[place] [address] USALymphocytes (Bld) [#/Vol]1.5 10*3/uLNormal1.00-4.8The [facility] Physician GroupComment on above:Performed By: #### CMP, MG, CBC ####[place] [address] USALymphocytes/100 WBC (Bld)11.4 %Normal.The [facility] Physician GroupComment on above:Performed By: #### CMP, MG, CBC ####[address] StreetMCH (RBC) [Entitic mass]27.5 flWlomfz20.7-34.3The [facility] Comment on above:Performed By: #### CMP, MG, CBC ####[address] StreetMCV (RBC) [Entitic vol]85.7 fLNormal 80-100The [facility] Physician GroupComment on above:Performed By: #### CMP, MG, CBC ####[place] [address] [place] Mean Corpuscular HGB Conc32.1 g/uKUlhbmo87.0-35.0The [facility] Comment on above:Performed By: #### CMP, MG, CBC ####[place] [address] USAMonocytes (Bld) [#/Vol]1.8 10*3/uLHigh 0.0-0.8The [facility] Physician GroupComment on above:Performed By: #### CMP, MG, CBC ####[place] [address] [place] Monocytes/100 WBC (Bld)13.5 %Normal.The [facility] Physician GroupComment on above:Performed By: #### CMP, MG, CBC ####[place] [address] USANeutrophils (Bld) [#/Vol]9.2 10*3/uLHigh 1.8-7.7The [facility] Physician GroupComment on above:Performed By: #### CMP, MG, CBC ####[address] Neutrophils/100 WBC (Bld)70.3 %Normal.The [facility] Physician GroupComment on above:Performed By: #### CMP, MG, CBC ####[place] [address] USANRBC%0.1 /100{WBC}Normal0-0.5The [facility] Physician GroupComment on above:Performed By: #### CMP, MG, CBC ####[place] [address] USAPlatelet mean volume (Bld) [Entitic vol]9.5 fLNormal6.3-10.7The [facility] Physician GroupComment on above:Performed By: #### CMP, MG, CBC ####[place] [address] USAPlatelets (Bld) [#/Vol]246 10*3/uLNormal 150-450The [facility] Physician GroupComment on above:Performed By: #### CMP, MG, CBC ####[place] [address] [place] RBC (Bld) [#/Vol]2.58 10*6/uLLow3.60-5.00The [facility] Physician GroupComment on above:Performed By: #### CMP, MG, CBC ####[place] [address] USAWBC (Bld) [#/Vol]13.1 10*3/uLHigh3.8-11.6The [facility] Physician GroupComment on above:Performed By: #### CMP, MG, CBC ####[address] Comprehensive Metabolic Panelon 20-31-1361Rjyseyi [Mass/Vol]2.8 g/dLLow3.5-5.7 The [facility] Physician GroupComment on above:Performed By: #### CMP, MG, CBC ####[place] [address] [place] Albumin/Globulin [Mass ratio]0.8 {ratio}NormalThe [facility] Comment on above:Performed By: #### CMP, MG, CBC ####[place] [address] USAALP [Catalytic activity/Vol]67 U/L Rqezvj09-905Mni [facility] Physician GroupComment on above:Performed By: #### CMP, MG, CBC ####[place] [address] USAALT [Catalytic activity/Vol]6 U/LLow7-52The [facility] Comment on above:Performed By: #### CMP, MG, CBC ####[place] [address] USAAnion gap [Moles/Vol]12.8 mmol/LNormal 6.0-15.0The [facility] Physician GroupComment on above:Performed By: #### CMP, MG, CBC ####[place] [address] USAAST [Catalytic activity/Vol]12 U/FUpn65-94Uho [facility] Comment on above:Performed By: #### CMP, MG, CBC ####[place] [address] USABilirubin [Mass/Vol]0.2 mg/dLLow 0.3-1.0The [facility] Physician GroupComment on above:Performed By: #### CMP, MG, CBC ####[place] [address] [place] Calcium [Mass/Vol]8.6 mg/dLNormal8.6-10.3The [facility] Physician GroupComment on above:Performed By: #### CMP, MG, CBC ####[place] [address] USAChloride [Moles/Vol]95 mmol/YZsa05-959Ozp [facility] Physician GroupComment on above:Performed By: #### CMP, MG, CBC ####[place] [address] USACO2 [Moles/Vol]27.2 mmol/ECbgmin74.0-31.0The [facility] Physician GroupComment on above:Performed By: #### CMP, MG, CBC ####[place] [address] USACreatinine [Mass/Vol]4.72 mg/dLHigh0.60-1.20 The [facility] Physician GroupComment on above:Performed By: #### CMP, MG, CBC ####[place] [address] [place] Creatinine Clr Calc Httvayyd31.95NoNovant Health Ballant[facility] Center Physician GroupComment on above:Performed By: #### CMP, MG, CBC ####[place] [address] USAEstimated GFR10.399 mL/MinNoNovant Health Ballantyne Medical Center Physician [facility] HospitalComment on above:Performed By: #### CMP, MG, CBC ####[place] [address] USAGlobulin (S) [Mass/Vol]3.5 g/dLNoNovant Health Ballantyne [facility] Center Physician [facility] HospitalComment on above:Performed By: #### CMP, MG, CBC ####[place] [address] USAGlucose [Mass/Vol]122 mg/aALhcm29-749Ttq [facility] Physician GroupComment on above:Result Comment: Random Glucose Reference Range is dependent on time and content of last meal. Glucose of more than 200 mg/dL in a nonstressed, ambulatory subject supports the diagnosis of Diabetes Mellitus. ADA recommended reference rangePerformed By: #### CMP, MG, CBC ####[place] [address] USAPotassium [Moles/Vol] 4.0 mmol/LNormal3.5-5.1The [facility] Physician GroupComment on above:Performed By: #### CMP, MG, CBC ####[place] [address] USAProtein [Mass/Vol]6.3 g/dLLow6.4-8.9The [facility] Physician GroupComment on above:Performed By: #### CMP, MG, CBC ####[facility] [place] [address] USASodium [Moles/Vol]131 mmol/TKpn209-099Fmf [facility] Physician GroupComment on above:Performed By: #### CMP, MG, CBC ####[facility] [place] [address] USAUrea nitrogen [Mass/Vol]30 mg/dLMan [facility]al[facility]7-[facility] Physician GroupComment on above:Performed By: #### CMP, MG, CBC ####[address] [place] [address] USAGlucose Poct Glucometerson 83-26-2084Wxpbdnu [Mass/Vol]163 mg/dLNoNovant Health Ballantyne Medical Center Physician GroupComment on above:Result Comment: Random Glucose Reference Range is dependent on time and content of last meal. Glucose of more than 200 mg/dL in a nonstressed, ambulatory subject supports the diagnosis of Diabetes Mellitus.PERFORMED BY:[address]JC [place], [place] [phone] MEDICAL DIRECTORKEMAL ACKERMAN M.D. Performed By: #### GLULS ####Point of Care testing,Glucose [Mass/Vol]178 mg/dL NormalAdventhealth Kissimmee Physician GroupComment on above:Result Comment: Random Glucose Reference Range is dependent on time and content of last meal. Glucose of more than 200 mg/dL in a nonstressed, ambulatory subject supports the diagnosis of Diabetes Mellitus.PERFORMED BY:[address] [place], [place] [phone] MEDICAL DIRECTORKEMAL ACKERMAN M.D.Performed By: #### GLULS ####Point of Care testing,Glucose [Mass/Vol]133 mg/dLOrlando Health Winnie Palmer Hospital for Women & Babies Physician GroupComment on above:Result Comment: Random Glucose Reference Range is dependent on time and content of last meal. Glucose of more than 200 mg/dL in a nonstressed, ambulatory subject supports the diagnosis of Diabetes Mellitus.PERFORMED BY:[address] [place], [place] [phone] MEDICAL DIRECTORKEMAL ACKERMAN M.D. Performed By: #### GLULS ####Point of Care testing,Magnesiumon 03-06-2025 Magnesium [Mass/Vol]1.8 mg/dLLow1.9-2.7The [facility] Physician GroupComment on above:Result Comment: PERFORMED BY:[address] [place]ZCassieAMIA[address] [place], [place] [phone] MEDICAL DIRECTORKEMAL FLORES M.D.Performed By: #### CMP, MG, CBC ####[address] [address] USAComprehensive Metabolic Panelon 47-29-9173Moqccvj [Mass/Vol]3.0 g/dLLow3.5-5.7The [facility] Comment on above:Performed By: #### CMP, SCAN CBC, MG ####[place] [id number] USAAlbumin/Globulin [Mass ratio] 0.8 {ratio}NormalThe [facility] Physician GroupComment on above:Performed By: #### CMP, SCAN CBC, MG ####[place] [id number] USAALP [Catalytic activity/Vol]64 U/PSgcjrv95-901Qwc [facility] Physician GroupComment on above:Performed By: #### CMP, SCAN CBC, MG ####[place] [id number] USAALT [Catalytic activity/Vol]5 U/LLow7-52The [facility] Physician GroupComment on above:Performed By: #### CMP, SCAN CBC, MG ####[place] [id number] USAAnion gap [Moles/Vol]13.1 mmol/LNormal 6.0-15.0The [facility] Physician GroupComment on above:Performed By: #### CMP, SCAN CBC, MG ####[address] [address] USAAST [Catalytic activity/Vol]12 U/BTmq51-19Cby [facility] Comment on above:Performed By: #### CMP, SCAN CBC, MG ####[place] [id number] USABilirubin [Mass/Vol]0.2 mg/dL Low0.3-1.0The [facility] Physician GroupComment on above:Performed By: #### CMP, SCAN CBC, MG ####[place] [address] USACalcium [Mass/Vol]8.8 mg/dLNormal8.6-10.3The [facility] Comment on above:Performed By: #### CMP, SCAN CBC, MG ####[place] [address] USAChloride [Moles/Vol]95 mmol/L Zdi02-502Urv [facility] Physician GroupComment on above:Performed By: #### CMP, SCAN CBC, MG ####[place] [address] USACO2 [Moles/Vol]27.7 mmol/ROrmkix34.0-31.0The [facility] Comment on above:Performed By: #### CMP, SCAN CBC, MG ####[place] [address] USACreatinine [Mass/Vol]4.40 mg/dLSignificant change up0.60-1.20The [facility] Physician GroupComment on above:Performed By: #### CMP, SCAN CBC, MG ####[place] [id number] USACreatinine Clr Calc Mgnqwayd56.52 NormalThe [facility] Physician GroupComment on above:Performed By: #### CMP, SCAN CBC, MG ####[place] [address] USAEstimated GFR11.314 mL/MinNormalThe [facility] Physician GroupComment on above:Performed By: #### CMP, SCAN CBC, MG ####[place] [id number] USAGlobulin (S) [Mass/Vol]3.6 g/dLNormal The [facility] Physician GroupComment on above:Performed By: #### CMP, SCAN CBC, MG ####[place] [address] [place] Glucose [Mass/Vol]150 mg/kXHmud94-191Zqq [facility] Physician GroupComment on above:Result Comment: Random Glucose Reference Range is dependent on time and content of last meal. Glucose of more than 200 mg/dL in a nonstressed, ambulatory subject supports the diagnosis of Diabetes Mellitus. ADA recommended reference rangePerformed By: #### CMP, SCAN CBC, MG ####[place] [address] USAPotassium [Moles/Vol]3.8 mmol/LNormal3.5-5.1The [facility] Physician GroupComment on above:Performed By: #### CMP, SCAN CBC, MG ####[place] [address] USAProtein [Mass/Vol]6.6 g/dLNormal6.4-8.9The [facility] Physician GroupComment on above:Performed By: #### CMP, SCAN CBC, MG ####[place] [address] USASodium [Moles/Vol]132 mmol/BHvb069-597Pev [facility] Physician GroupComment on above: Performed By: #### CMP, SCAN CBC, MG ####[place] [address] USAUrea nitrogen [Mass/Vol]23 mg/dLNormal7-25The [facility] Physician GroupComment on above:Performed By: #### CMP, SCAN CBC, MG ####[place] [id number] USAGlucose Poct Glucometerson 60-27-3780Gwfudoc [Mass/Vol]184 mg/dLNormalThe [facility] Physician GroupComment on above:Result Comment: Random Glucose Reference Range is dependent on time and content of last meal. Glucose of more than 200 mg/dL in a nonstressed, ambulatory subject supports the diagnosis of Diabetes Radha litus.PERFORMED BY:[place] [address] [place], [place] [phone] MEDICAL DIRECTORKEMAL ACKERMAN M.D. Performed By: #### GLULS ####Point of Care testing,Glucose [Mass/Vol]182 mg/dL NormalThe [facility] Physician GroupComment on above:Result Comment: Random Glucose Reference Range is dependent on time and content of last meal. Glucose of more than 200 mg/dL in a nonstressed, ambulatory subject supports the diagnosis of Diabetes Mellitus.PERFORMED BY:[place] [address] [place], [place] [phone] MEDICAL DIRECTORKEMAL ACKERMAN M.D.Performed By: #### GLULS ####Point of Care testing,Glucose [Mass/Vol]175 mg/dLNormalThe [facility] Physician GroupComment on above:Result Comment: Random Glucose Reference Range is dependent on time and content of last meal. Glucose of more than 200 mg/dL in a nonstressed, ambulatory subject supports the diagnosis of Diabetes Mellitus.PERFORMED BY:[place] [address] [place], [place] [phone] MEDICAL JUANA ACKERMAN M.D. Performed By: #### GLULS ####Point of Care testing,Glucose [Mass/Vol]162 mg/dL NormalThe [facility] Physician GroupComment on above:Result Comment: Random Glucose Reference Range is dependent on time and content of last meal. Glucose of more than 200 mg/dL in a nonstressed, ambulatory subject supports the diagnosis of Diabetes Mellitus.PERFORMED BY:[place] [address] [place], [place] [phone] MEDICAL DIRECTORKEMAL ACKERMAN M.D.Performed By: #### GLULS ####Point of Care testing,Magnesiumon 20-74-5234Ssajjzcxm [Mass/Vol]1.9 mg/dLNormal1.9-2.7The [facility] Physician GroupComment on above:Result Comment: PERFORMED BY:[address] [place], [place] [phone] MEDICAL DIRECTORKEMAL ACKERMAN M.D.Performed By: #### CMP, SCAN CBC, MG ####[address] [address] USAScan and CBCon 71-00-5867Nlsasnwtv (Bld) [#/Vol]0.1 10*3/uLNormal0.0-0.2The [facility] Physician GroupComment on above:Performed By: #### CMP, SCAN CBC, MG ####[place] [address] [place] Basophils/100 WBC (Bld)1.0 %Normal.The [facility] Physician GroupComment on above:Performed By: #### CMP, SCAN CBC, MG ####[place] [address] USAEosinophils (Bld) [#/Vol]0.5 10*3/uL High0.0-0.45The [facility] Physician GroupComment on above:Performed By: #### CMP, SCAN CBC, MG ####[place] [address] USAEosinophils/100 WBC (Bld)3.7 %Normal.The [facility] Comment on above:Performed By: #### CMP, SCAN CBC, MG ####[place] [address] USAErythrocyte distribution width (RBC) [Ratio]13.8 %Hmenem03.9-15.3The [facility] Physician GroupComment on above:Performed By: #### CMP, SCAN CBC, MG ####[place] [address] USAHematocrit (Bld) [Volume fraction]25.0 %Low34.0-46.4The [facility] Physician GroupComment on above:Performed By: #### CMP, SCAN CBC, MG ####[place] [address] USAHemoglobin (Bld) [Mass/Vol]7.9 g/dLLow11.8-15.4The [facility] Physician GroupComment on above:Performed By: #### CMP, SCAN CBC, MG ####[address] [address] [place] Lymphocytes (Bld) [#/Vol]1.4 10*3/uLNormal1.00-4.8The [facility] Comment on above:Performed By: #### CMP, SCAN CBC, MG ####[place] [address] USALymphocytes/100 WBC (Bld)11.0 %Normal.The [facility] Physician GroupComment on above:Performed By: #### CMP, SCAN CBC, MG ####[place] [address] USAMCH (RBC) [Entitic mass]26.9 poMrupon19.7-34.3The [facility] Physician GroupComment on above:Performed By: #### CMP, SCAN CBC, MG ####[address] [address] USAMCV (RBC) [Entitic vol]85.7 oYLfhvjl17-670Viw [facility] Physician GroupComment on above:Performed By: #### CMP, SCAN CBC, MG ####[place] [address] USAMean Corpuscular HGB Conc31.4 g/dLLow32.0-35.0The [facility] Physician GroupComment on above:Performed By: #### CMP, SCAN CBC, MG ####[address] [address] [place] Monocytes (Bld) [#/Vol]1.7 10*3/uLHigh0.0-0.8The [facility] Comment on above:Performed By: #### CMP, SCAN CBC, MG ####[place] [address] USAMonocytes/100 WBC (Bld)13.2 % Normal.The [facility] Physician GroupComment on above:Performed By: #### CMP, SCAN CBC, MG ####[address] [address] USANeutrophils (Bld) [#/Vol]9.3 10*3/uLHigh1.8-7.7The [facility] HospitalComment on above:Performed By: #### CMP, SCAN CBC, MG ####[address] [address] USANeutrophils/100 WBC (Bld)71.1 %Normal.The [facility] Physician GroupComment on above:Performed By: #### CMP, SCAN CBC, MG ####[address] [address] USANRBC%0.1 /100{WBC}Normal0-0.5The [facility] HospitalComment on above:Performed By: #### CMP, SCAN CBC, MG ####[address] [address] USAPlatelet Estimate NormalNormalNormJay Hospital Physician [facility] HospitalComment on above:Performed By: #### CMP, SCAN CBC, MG ####[address] [address] USAPlatelet mean volume (Bld) [Entitic vol]9.5 fLNormal 6.3-10.7The [facility] HospitalComment on above:Performed By: #### CMP, SCAN CBC, MG ####[place] [id number] USAPlatelet MorphologyNormalNormalNormJay Hospital Physician [facility] Comment on above:Result Comment: PERFORMED BY:[address] [place], [place] [phone] MEDICAL JUANA ACKERMAN M.D.Performed By: #### CMP, SCAN CBC, MG ####[address] [address] [place] Platelets (Bld) [#/Vol]237 10*3/vWPzeays692-342Obv [facility] Comment on above:Performed By: #### CMP, SCAN CBC, MG ####[place] [address] USARBC (Bld) [#/Vol]2.92 10*6/uL Low3.60-5.00The [facility] Physician GroupComment on above:Performed By: #### CMP, SCAN CBC, MG ####[place] [address] USARBC morphology finding Nom (Bld)NormalNormalNormalThe [facility] HospitalComment on above:Performed By: #### CMP, SCAN CBC, MG ####[place] [address] USAWBC (Bld) [#/Vol]13.1 10*3/uLHigh3.8-11.6The [facility] Physician GroupComment on above:Performed By: #### CMP, SCAN CBC, MG ####[place] [address] USAAnisocytosis LM Ql (Bld)Ordered By: Becky Nash on 68-17-2489Lnfqlfzzojkm Ql (Bld)Anisocytosis [Presence] in Blood by Light microscopyMercy Health West HospitalAnisocytosis [Presence] in Blood by Light microscopyOrdered By: Becky Nash on 62-35-9350Viwgfalpmdix Ql (Bld)ModerateNormalMercy Health West HospitalComment on above:Performed By: #### PHOS, MG, CMP, SCAN CBC ####[place] [address] USAComprehensive Metabolic Panelon 86-47-9867Oflojht [Mass/Vol]2.9 g/dLLow3.5-5.7The [facility] Physician GroupComment on above: Performed By: #### PHOS, MG, CMP, SCAN CBC ####[place] [address] USAAlbumin/Globulin [Mass ratio]1.0 {ratio}NormalThe [facility] Physician GroupComment on above:Performed By: #### PHOS, MG, CMP, SCAN CBC ####[address] [address] USAALP [Catalytic activity/Vol]64 U/KGxkuiy12-413Ajx [facility] Physician GroupComment on above:Performed By: #### PHOS, MG, CMP, SCAN CBC ####[address] [address] USAALT [Catalytic activity/Vol]5 U/LLow7-52The [facility] Physician GroupComment on above:Performed By: #### PHOS, MG, CMP, SCAN CBC ####[address] [address] USAAnion gap [Moles/Vol]13.0 mmol/LNormal 6.0-15.0The [facility] Physician GroupComment on above:Performed By: #### PHOS, MG, CMP, SCAN CBC ####[address] [address] USAAST [Catalytic activity/Vol]12 U/YNci22-41Cua [facility] Physician GroupComment on above:Performed By: #### PHOS, MG, CMP, SCAN CBC ####[address] [address] USABilirubin [Mass/Vol] 0.3 mg/dLNormal0.3-1.0The [facility] Physician GroupComment on above:Performed By: #### PHOS, MG, CMP, SCAN CBC ####[address] [address] USACalcium [Mass/Vol]8.3 mg/dLLow8.6-10.3The [facility] Physician GroupComment on above:Performed By: #### PHOS, MG, CMP, SCAN CBC ####[address] [address] [place] Chloride [Moles/Vol]96 mmol/KWcd62-104Hjh [facility] Physician GroupComment on above:Performed By: #### PHOS, MG, CMP, SCAN CBC ####[address] [address] USACO2 [Moles/Vol]28.9 mmol/LNormal 21.0-31.0The [facility] Physician GroupComment on above:Performed By: #### PHOS, MG, CMP, SCAN CBC ####[place] [address] USACreatinine [Mass/Vol]3.45 mg/dLSignificant change up0.60-1.20The [facility] Physician GroupComment on above:Performed By: #### PHOS, MG, CMP, SCAN CBC ####[place] [address] [place] Creatinine Clr Calc Vpsrpyze92.76NoNovant Health Ballantyne [facility] Center Physician [facility] HospitalComment on above:Performed By: #### PHOS, MG, CMP, SCAN CBC ####[place] [address] USAEstimated GFR15.148 mL/MinNoNovant Health Ballantyne Medical Center Physician [facility] HospitalComment on above:Performed By: #### PHOS, MG, CMP, SCAN CBC ####[place] [address] [place] Globulin (S) [Mass/Vol]2.9 g/dLNoNovant Health Ballantyne [facility] Center Physician [facility] HospitalComment on above:Performed By: #### PHOS, MG, CMP, SCAN CBC ####[place] [address] USAGlucose [Mass/Vol]145 mg/dSVznj34-243 The [facility] Physician GroupComment on above:Result Comment: Random Glucose Reference Range is dependent on time and content of last meal. Glucose of more than 200 mg/dL in a nonstressed, ambulatory subject supports the diagnosis of Diabetes Mellitus. ADA recommended reference rangePerformed By: #### PHOS, MG, CMP, SCAN CBC ####[place] [address] USAPotassium [Moles/Vol]3.9 mmol/LNormal3.5-5.1The [facility] Physician GroupComment on above:Performed By: #### PHOS, MG, CMP, SCAN CBC ####[place] [address] USAProtein [Mass/Vol]5.8 g/dLLow6.4-8.9The [facility] HospitalComment on above:Performed By: #### PHOS, MG, CMP, SCAN CBC ####[place] [address] [place] [id number] USASodium [Moles/Vol]134 mmol/NVny785-351Idx [place] Physician [facility] HospitalComment on above:Performed By: #### PHOS, MG, CMP, SCAN CBC ####[place] [id number] USAUrea nitrogen [Mass/Vol]18 mg/dLNormal7-e [facility] HospitalComment on above:Performed By: #### PHOS, MG, CMP, SCAN CBC ####[place] [address] USAECG 12 lead ECGon 10-25-1973YFJ 12 lead ECGNoNovant Health Ballantyne Medical Center Physician [facility] HospitalGlucose Poct Glucometerson 03-04-2025 Glucose [Mass/Vol]211 mg/dLNoBrecksville VA / Crille HospitalComment on above: Result Comment: Random Glucose Reference Range is dependent on time and content of last meal. Glucose of more than 200 mg/dL in a nonstressed, ambulatory subject supports the diagnosis of Diabetes Mellitus.PERFORMED BY:[address]JC DIAZCassieTHURMON[place], [place] [phone] MEDICAL DIRECTORKEMAL ACKERMAN M.D.Performed By: #### GLULS ####Point of Care testing,Glucose [Mass/Vol]182 mg/dLOrlando Health Winnie [facility] Physician [facility] Comment on above:Result Comment: Random Glucose Reference Range is dependent on time and content of last meal. Glucose of more than 200 mg/dL in a nonstressed, ambulatory subject supports the diagnosis of Diabetes Mellitus.PERFORMED BY:[address] [place]IAZCassieAMI, [place] [phone] MEDICAL DIRECTORKEMAL ACKERMAN M.D. Performed By: #### GLULS ####Point of Care testing,Glucose [Mass/Vol]156 mg/dL NormalAdventhealth Kissimmee Physician GroupComment on above:Result Comment: Random Glucose Reference Range is dependent on time and content of last meal. Glucose of more than 200 mg/dL in a nonstressed, ambulatory subject supports the diagnosis of Diabetes Mellitus.PERFORMED BY:[place] [address] [place], [place] [phone] MEDICAL DIRECTORKEMAL ACKERMAN M.D.Performed By: #### GLULS ####Point of Care testing,Rftrucn6Xin2: Cleaned MeterNoNovant Health Ballantyne [facility] Center Physician GroupComment on above:Performed By: #### GLULS ####Point of Care testing,Fwccnbm0FBIC NOTIFY DR/HirenNovant Health Ballantyne Medical Center Physician GroupComment on above:Result Comment: PERFORMED BY:[place] [address] [place], [place] [phone] MEDICAL DIRECTORKEMAL ACKERMAN M.D. Performed By: #### GLULS ####Point of Care testing,Glucose [Mass/Vol]236 mg/dL NormalThe [facility] Physician GroupComment on above:Result Comment: Random Glucose Reference Range is dependent on time and content of last meal. Glucose of more than 200 mg/dL in a nonstressed, ambulatory subject supports the diagnosis of Diabetes Mellitus.Performed By: #### GLULS ####Point of Care testing,Hypochromia LM Ql (Bld)Ordered By: Becky Nash on 28-98-2437Moeqjfxdcsw Ql (Bld)Hypochromia [Presence] in Blood by Light microscopyMercy Health West HospitalHypochromia Ql (Bld)SlightMercy Health West Hospital Magnesiumon 43-57-9802Psetzplxn [Mass/Vol]1.8 mg/dLLow1.9-2.7The [facility] Physician GroupComment on above:Result Comment: PERFORMED BY:[place] [address] [place], [place] [phone] MEDICAL DIRECTORKEMAL ACKERMAN M.D.Performed By: #### PHOS, MG, CMP, SCAN CBC ####[address] [address] USANo Panel InformationOrdered By: Becky Nash on 43-17-7022Mkkemqx Glucose #[address]/[facility] Main CampusPhosphoruson 03-04-2025 Phosphate [Mass/Vol]2.6 mg/dLNormal2.5-4.5The [facility] Physician GroupComment on above:Performed By: #### PHOS, MG, CMP, SCAN CBC ####[place] [address] USAScan and CBCon 03-04-2025 Basophils (Bld) [#/Vol]0.2 10*3/uLNormal0.0-0.2The [facility] Comment on above:Performed By: #### PHOS, MG, CMP, SCAN CBC ####[place] [address] USABasophils/100 WBC (Bld)1.1 %Normal.The [facility] Physician GroupComment on above:Performed By: #### PHOS, MG, CMP, SCAN CBC ####[place] [address] USAEosinophils (Bld) [#/Vol]0.5 10*3/uLHigh0.0-0.45The [facility] Physician GroupComment on above:Performed By: #### PHOS, MG, CMP, SCAN CBC ####[place] [address] [place] Eosinophils/100 WBC (Bld)3.2 %Normal.The [facility] Physician GroupComment on above:Performed By: #### PHOS, MG, CMP, SCAN CBC ####[place] [address] USAErythrocyte distribution width (RBC) [Ratio]13.9 %Irkrdv65.9-15.3The [facility] Physician GroupComment on above: Performed By: #### PHOS, MG, CMP, SCAN CBC ####[place] [address] USAHematocrit (Bld) [Volume fraction]24.8 %Low34.0-46.4The [facility] Physician GroupComment on above:Performed By: #### PHOS, MG, CMP, SCAN CBC ####[place] [address] USAHemoglobin (Bld) [Mass/Vol]7.8 g/dLLow11.8-15.4The [facility] Physician GroupComment on above:Performed By: #### PHOS, MG, CMP, SCAN CBC ####[place] [address] [place] HypochromasiaSlightNormalThe [facility] Physician GroupComment on above:Performed By: #### PHOS, MG, CMP, SCAN CBC ####[place] [address] USALymphocytes (Bld) [#/Vol]1.6 10*3/uLNormal1.00-4.8 The [facility] Physician GroupComment on above:Performed By: #### PHOS, MG, CMP, SCAN CBC ####[place] [address] USALymphocytes/100 WBC (Bld)10.6 %Normal.The [facility] Physician GroupComment on above:Performed By: #### PHOS, MG, CMP, SCAN CBC ####[place] [address] USAMCH (RBC) [Entitic mass]27.0 pgNormal 24.7-34.3The [facility] Physician GroupComment on above:Performed By: #### PHOS, MG, CMP, SCAN CBC ####[place] [address] USAMCV (RBC) [Entitic vol]86.3 tCRvquwx19-403Lxg [facility] Physician GroupComment on above:Performed By: #### PHOS, MG, CMP, SCAN CBC ####[place] [address] USAMean Corpuscular HGB Conc31.3 g/dLLow32.0-35.0The [facility] Physician GroupComment on above:Performed By: #### PHOS, MG, CMP, SCAN CBC ####[place] [address] USAMonocytes (Bld) [#/Vol]2.1 10*3/uLHigh0.0-0.8The [facility] Physician GroupComment on above:Performed By: #### PHOS, MG, CMP, SCAN CBC ####[place] [address] [place] Monocytes/100 WBC (Bld)13.8 %Normal.The [facility] Physician GroupComment on above:Performed By: #### PHOS, MG, CMP, SCAN CBC ####[place] [address] USANeutrophils (Bld) [#/Vol]10.8 10*3/uL High1.8-7.7The [facility] Physician GroupComment on above:Performed By: #### PHOS, MG, CMP, SCAN CBC ####[place] [address] USANeutrophils/100 WBC (Bld)71.3 %Normal.The [facility] Physician GroupComment on above:Performed By: #### PHOS, MG, CMP, SCAN CBC ####[place] [address] USANRBC% 0.1 /100{WBC}Normal0-0.5The [facility] Physician GroupComment on above:Performed By: #### PHOS, MG, CMP, SCAN CBC ####[place] [id number] USAPlatelet EstimateNormalNormalNormalThe [facility] Physician GroupComment on above:Performed By: #### PHOS, MG, CMP, SCAN CBC ####[place] [address] [place] Platelet mean volume (Bld) [Entitic vol]9.7 fLNormal6.3-10.7The [facility] Physician GroupComment on above:Performed By: #### PHOS, MG, CMP, SCAN CBC ####[address] [address] [place] Platelet MorphologyNormalNormalNormalThe [facility] Physician GroupComment on above:Result Comment: PERFORMED BY:[address] [place], [place] [phone] MEDICAL DIRECTORKEMAL FLORES M.D.Performed By: #### PHOS, MG, CMP, SCAN CBC ####[place] [address] USAPlatelets (Bld) [#/Vol]218 10*3/xWWmwnxk758-902Okx [facility] Physician GroupComment on above:Performed By: #### PHOS, MG, CMP, SCAN CBC ####[place] [address] USARBC (Bld) [#/Vol]2.87 10*6/uLLow3.60-5.00The [facility] Physician GroupComment on above:Performed By: #### PHOS, MG, CMP, SCAN CBC ####[place] [address] [place] WBC (Bld) [#/Vol]15.1 10*3/uLHigh3.8-11.6The [facility] Physician GroupComment on above:Performed By: #### PHOS, MG, CMP, SCAN CBC ####[place] [address] USAComprehensive Metabolic Panelon 82-05-7313Koxlyxq [Mass/Vol]3.0 g/dLLow3.5-5.7The [facility] Comment on above:Performed By: #### MG, SCAN CBC, CMP ####[place] [address] USAAlbumin/Globulin [Mass ratio] 0.9 {ratio}NormalThe [facility] Physician GroupComment on above:Performed By: #### MG, SCAN CBC, CMP ####[place] [address] USAALP [Catalytic activity/Vol]65 U/MInnwud51-310Joj [facility] Physician GroupComment on above:Performed By: #### MG, SCAN CBC, CMP ####[place] [address] USAALT [Catalytic activity/Vol]3 U/LLow7-52The [facility] Physician GroupComment on above:Performed By: #### MG, SCAN CBC, CMP ####[place] [address] USAAnion gap [Moles/Vol]13.6 mmol/LNormal 6.0-15.0The [facility] Physician GroupComment on above:Performed By: #### MG, SCAN CBC, CMP ####[place] [address] USAAST [Catalytic activity/Vol]12 U/FCet64-08Sxc [facility] Comment on above:Performed By: #### MG, SCAN CBC, CMP ####[place] [address] USABilirubin [Mass/Vol]0.2 mg/dL Low0.3-1.0The [facility] Physician GroupComment on above:Performed By: #### MG, SCAN CBC, CMP ####[place] [address] USACalcium [Mass/Vol]8.7 mg/dLNormal8.6-10.3The [facility] Comment on above:Performed By: #### MG, SCAN CBC, CMP ####[place] [address] USAChloride [Moles/Vol]96 mmol/L Ust49-207Rfd [facility] Physician GroupComment on above:Performed By: #### MG, SCAN CBC, CMP ####[place] [id number] USACO2 [Moles/Vol]26.0 mmol/FAqhdfn51.0-31.0The [facility] Comment on above:Performed By: #### MG, SCAN CBC, CMP ####[place] [id number] USACreatinine [Mass/Vol]4.69 mg/dLSignificant change up0.60-1.20The [facility] Physician GroupComment on above:Performed By: #### MG, SCAN CBC, CMP ####[place] [address] [place] [address] USACreatinine Clr Calc Ecfhoxfc29.79 NormalThe [facility] Physician GroupComment on above:Performed By: #### MG, SCAN CBC, CMP ####[place] [address] [place] [address] USAEstimated GFR10.480 mL/MinNormalThe [facility] Physician GroupComment on above:Performed By: #### MG, SCAN CBC, CMP ####[place] [address] [place] [address] USAGlobulin (S) [Mass/Vol]3.4 g/dLNormal The [facility] Physician GroupComment on above:Performed By: #### MG, SCAN CBC, CMP ####[place] [address] [place] Glucose [Mass/Vol]164 mg/rSBuee21-739Isl [facility] Physician GroupComment on above:Result Comment: Random Glucose Reference Range is dependent on time and content of last meal. Glucose of more than 200 mg/dL in a nonstressed, ambulatory subject supports the diagnosis of Diabetes Mellitus. ADA recommended reference rangePerformed By: #### MG, SCAN CBC, CMP ####[place] [address] USAPotassium [Moles/Vol]3.6 mmol/LNormal3.5-5.1The [facility] Physician GroupComment on above:Performed By: #### MG, SCAN CBC, CMP ####[place] [address] USAProtein [Mass/Vol]6.4 g/dLNormal6.4-8.9The [facility] Physician GroupComment on above:Performed By: #### MG, SCAN CBC, CMP ####[place] [address] USASodium [Moles/Vol]132 mmol/THdh119-417Kzq [facility] Physician GroupComment on above: Performed By: #### MG, SCAN CBC, CMP ####[facility] [address] [place] [address] USAUrea nitrogen [Mass/Vol]27 mg/dLMan [facility] Physician GroupComment on above:Performed By: #### MG, SCAN CBC, CMP ####[facility] [address] [place] [address] USAGlucose Poct Glucometerson 68-98-2750Ajupsgf [Mass/Vol]209 mg/dLNoNovant Health Ballantyne [facility] Center Physician GroupComment on above:Result Comment: Random Glucose Reference Range is dependent on time and content of last meal. Glucose of more than 200 mg/dL in a nonstressed, ambulatory subject supports the diagnosis of Diabetes Radha litus.PERFORMED BY:[address] [place], [place] [phone] MEDICAL DIRECTORKEMAL ACKERMAN M.D. Performed By: #### GLULS ####Point of Care testing,Glucose [Mass/Vol]255 mg/dL NormalThe [facility] Physician [facility] HospitalComment on above:Result Comment: Random Glucose Reference Range is dependent on time and content of last meal. Glucose of more than 200 mg/dL in a nonstressed, ambulatory subject supports the diagnosis of Diabetes Mellitus.PERFORMED BY:[address] [place], [place] [phone] MEDICAL JUANA ACKERMAN M.D.Performed By: #### GLULS ####Point of Care testing,Glucose [Mass/Vol]218 mg/dLOrlando Health Winnie Palmer Hospital for Women & Babies Physician GroupComment on above:Result Comment: Random Glucose Reference Range is dependent on time and content of last meal. Glucose of more than 200 mg/dL in a nonstressed, ambulatory subject supports the diagnosis of Diabetes Mellitus.PERFORMED BY:[address] [place], [place] [phone] MEDICAL DIRECTORKEMAL ACKERMAN M.D. Performed By: #### GLULS ####Point of Care testing,Gufvoov6Ryn5: Cleaned Meter NormalThe [facility] Physician GroupComment on above:Result Comment: PERFORMED BY:[place] [address] [place], [place] [phone] MEDICAL DIRECTORKEMAL ACKERMAN M.D.Performed By: #### GLULS ####Point of Care testing,Glucose [Mass/Vol]161 mg/dLNormalThe [facility] Physician GroupComment on above:Result Comment: Random Glucose Reference Range is dependent on time and content of last meal. Glucose of more than 200 mg/dL in a nonstressed, ambulatory subject supports the diagnosis of Diabetes Mellitus. Performed By: #### GLULS ####Point of Care testing,Immunofixation,Serumon 18-81-3208Sggpeiuikjsyeh, SerumComment:Normal.[facility] Comment on above:Result Comment: Presence of monoclonal protein is unclear at this time. Suggest repeat in 3 to 6 months if clinically indicated.Performed By: #### SPE W RFX GA, GA SERUM ####[facility] ,Immunoglobulin A, Serum 271 mg/lAGdjvsn19-945Hkj [facility] Physician GroupComment on above:Performed By: #### SPE W RFX GA, GA SERUM ####[facility] ,Immunoglobulin G891 mg/cIGtkbzn731-3618Awa [facility] Physician GroupComment on above:Performed By: #### SPE W RFX GA, GA SERUM ####[facility] ,Immunoglobulin M, Serum 125 mg/cMMjhxxg95-696Qdy [facility] Physician GroupComment on above:Result Comment: Performed at: - [facility] [address] [id number] Community Health Nurse Supervisor: Louis Hansen PhD, Phone: [phone] BY:[place] [address] [place], [place] [phone] MEDICAL DIRECTORKEMAL ACKERMAN M.D. Performed By: #### SPE W RFX GA, GA SERUM ####[facility] ,Magnesium on 81-97-5223Wktlxlcqj [Mass/Vol]2.0 mg/dLNormal1.9-2.7The [facility] Physician GroupComment on above:Result Comment: PERFORMED BY:[facility] RICKJohanaCassieTHURMOND, [place] [phone] MEDICAL DIRECTORKEMAL ACKERMAN M.D.Performed By: #### MG, SCAN CBC, CMP ####[facility] [address] [place] [address] [facility] Microcytes LM Ql (Bld)Ordered By: Becky Nash on 61-20-7068Dtilsdatkq Ql (Bld) Microcytes [Presence] in Blood by Light microscopyMercy Health West HospitalMicrocytes Ql (Bld)[facility] - ColumbusNo Panel InformationOrdered By: Jessica Christian on 67-24-8963Aqnxfty Electrophoresis M-Cachorro Comment: g/dLNot ObservedMercy Health West HospitalComment on above:SPE shows an asymmetrical gamma.Protein Electrophoresis NoteComment.[facility]cy Health West HospitalComment on above:Protein electrophoresis scan will follow via computer,mail, or pt escort delivery.Serum Immunofixation Reflexed..Mercy Health West HospitalOvalocytes [Presence] in Blood by Light microscopy Ordered By: Becky Nash on 08-63-2546Kjohyaxyav LM Ql (Bld)Ovalocyte detection Mercy Health West HospitalOvalocytes LM Ql (Bld)[facility] Hospital - ColumbusPolychromasia [Presence] in Blood by Light microscopyOrdered By: Becky Nash on 25-83-4282Lsxyqvlsbbrbd LM Ql (Bld)Polychromasia [Presence] in Blood by Light microscopyMercy Health West HospitalPolychromasia LM Ql (Bld)[facility] - ColumbusProt Electrophor w/reflex IFEon 36-62-9256Kfzfy-1-Globulin0.5 g/dLHigh0.0-0.4The [facility] Comment on above:Performed By: #### SPE W RFX GA, GA SERUM ####[facility] ,Dlivd-6-Equxmlvd1.3 g/dLHigh0.4-1.0The [facility] Comment on above:Performed By: #### SPE W RFX GA, GA SERUM ####[facility] ,Beta Globulin0.7 g/dLNormal0.7-1.3The [facility] Comment on above:Performed By: #### SPE W RFX GA, GA SERUM ####[facility] ,Gamma Globulin0.8 g/dLNormal0.4-1.8The [facility] Comment on above:Performed By: #### SPE W RFX GA, GA SERUM ####[facility] ,Immunofixation Reflex.Normal.The [facility] Physician GroupComment on above:Performed By: #### SPE W RFX GA, GA SERUM ####[facility] , Immunofixation ResultComment:Normal.The [facility] Physician GroupComment on above:Result Comment: Presence of monoclonal protein is unclear at this time. Suggest repeat in 3 to 6 months if clinically indicated. Performed at: [address] [id number] Community Health Nurse Supervisor: Louis Hansen PhD, Phone: [phone] By: #### SPE W RFX GA, GA SERUM ####[facility] ,M-SpikeComment:NormalNot ObservedThe [facility] Physician GroupComment on above:Result Comment: SPE shows an asymmetrical gamma. Performed By: #### SPE W RFX GA, GA SERUM ####[facility] ,SPE-Note CommentNormal.The [facility] Physician GroupComment on above:Result Comment: Protein electrophoresis scan will follow via computer, mail, or pt escort delivery.Performed By: #### SPE W RFX GA, GA SERUM ####[facility] , Scan and CBCon 41-25-8382Cvrgsmyfscmx Ql (Bld)SlightNormalThe [facility] Physician GroupComment on above:Performed By: #### MG, SCAN CBC, CMP ####[place] [address] [place] Basophils (Bld) [#/Vol]0.1 10*3/uLNormal0.0-0.2The [facility] Comment on above:Performed By: #### MG, SCAN CBC, CMP ####[place] [address] USABasophils/100 WBC (Bld)0.8 % Normal.The [facility] Physician GroupComment on above:Performed By: #### MG, SCAN CBC, CMP ####[place] [address] USAEosinophils (Bld) [#/Vol]0.6 10*3/uLHigh0.0-0.45The [facility] Comment on above:Performed By: #### MG, SCAN CBC, CMP ####[place] [address] USAEosinophils/100 WBC (Bld)4.1 % Normal.The [facility] Physician GroupComment on above:Performed By: #### MG, SCAN CBC, CMP ####[place] [address] USAErythrocyte distribution width (RBC) [Ratio]13.9 %Rpogdm98.9-15.3The [facility] Physician GroupComment on above:Performed By: #### MG, SCAN CBC, CMP ####[place] [address] [place] Hematocrit (Bld) [Volume fraction]24.1 %Low34.0-46.4The [facility] Physician GroupComment on above:Performed By: #### MG, SCAN CBC, CMP ####[place] [address] USAHemoglobin (Bld) [Mass/Vol]7.7 g/dLLow11.8-15.4The [facility] Physician GroupComment on above: Performed By: #### MG, SCAN CBC, CMP ####[place] [address] USALymphocytes (Bld) [#/Vol]1.3 10*3/uLNormal 1.00-4.8The [facility] Physician GroupComment on above:Performed By: #### MG, SCAN CBC, CMP ####[place] [id number] USALymphocytes/100 WBC (Bld)8.4 %Normal.[facility] Comment on above:Performed By: #### MG, SCAN CBC, CMP ####[address] Kirk StreetMCH (RBC) [Entitic mass]27.7 ulLoxvtx07.7-34.3The [facility] Physician GroupComment on above:Performed By: #### MG, SCAN CBC, CMP ####[address]V (RBC) [Entitic vol]86.8 bPPbezzz50-433Yuw [facility] Physician GroupComment on above:Performed By: #### MG, SCAN CBC, CMP ####[place] [address] USAMean Corpuscular HGB Conc31.9 g/dLLow32.0-35.0The [facility] Physician GroupComment on above:Performed By: #### MG, SCAN CBC, CMP ####[place] [address] USAMicrocytosisSlightNormalThe [facility] Physician GroupComment on above:Performed By: #### MG, SCAN CBC, CMP ####[place] [address] [place] Monocytes (Bld) [#/Vol]2.0 10*3/uLHigh0.0-0.8The [facility] Comment on above:Performed By: #### MG, SCAN CBC, CMP ####[place] [address] USAMonocytes/100 WBC (Bld)12.5 % Normal.The [facility] Physician GroupComment on above:Performed By: #### MG, SCAN CBC, CMP ####[address] [address] USANeutrophils (Bld) [#/Vol]11.6 10*3/uLHigh1.8-7.7The [facility] Comment on above:Performed By: #### MG, SCAN CBC, CMP ####[place] [address] USANeutrophils/100 WBC (Bld)74.2 %Normal.The [facility] Physician GroupComment on above:Performed By: #### MG, SCAN CBC, CMP ####[place] [address] USANRBC%0.2 /100{WBC}Normal0-0.5The [facility] Physician GroupComment on above:Performed By: #### MG, SCAN CBC, CMP ####[address] [address] USAOvalocytesSlightNormJay Hospital Physician GroupComment on above:Performed By: #### MG, SCAN CBC, CMP ####[address] [address] [place] Platelet EstimateNormalNormalNormJay Hospital Physician GroupComment on above:Performed By: #### MG, SCAN CBC, CMP ####[address] [address] USAPlatelet mean volume (Bld) [Entitic vol]10.3 fLNormal6.3-10.7The [facility] Physician GroupComment on above:Performed By: #### MG, SCAN CBC, CMP ####[address] [address] USAPlatelet MorphologyNormalNormalNormJay Hospital Physician GroupComment on above:Result Comment: PERFORMED BY:[address] [place], [place] [phone] MEDICAL DIRECTORKEMAL ACKERMAN M.D.Performed By: #### MG, SCAN CBC, CMP ####[facility] [place] [address] [place] Platelets (Bld) [#/Vol]214 10*3/dIHrpfxg866-604Ivq [facility] Physician [facility] Comment on above:Performed By: #### MG, SCAN CBC, CMP ####[place] [address] [place] [address] USAPolychromasiaSFirstHealth Moore Regional Hospital Physician [facility] Community HospitalComment on above:Performed By: #### MG, SCAN CBC, CMP ####[address] [address] USARBC (Bld) [#/Vol]2.77 10*6/uLLow3.60-5.00The [facility] Physician [facility] HospitalComment on above:Performed By: #### MG, SCAN CBC, CMP ####[address] [address] USAStomatocytesSFirstHealth Moore Regional Hospital Physician [facility] HospitalComment on above:Performed By: #### MG, SCAN CBC, CMP ####[address] [address] USAWBC (Bld) [#/Vol]15.7 10*3/uLHigh3.8-11.6The [facility] Physician [facility] HospitalComment on above:Performed By: #### MG, SCAN CBC, CMP ####[address] [address] USASerum globulin measurement (mass/volume)Ordered By: Jessica Christian on 20-63-6765Owqxeqyw (S) [Mass/Vol]Serum globulin measurement (mass/volume)2.2-3.9[facility] Globulin (S) [Mass/Vol]3.2 g/dLNormal2.2-3.9[facility] Comment on above:Performed By: #### SPE W RFX GA, GA SERUM ####[facility] ,Serum immunofixation electrophoresisOrdered By: Jessica Christian on 39-16-2392Dxwwa ImmunofixationComment:.[facility] HospitalComment on above:Presence of monoclonal protein is unclear at this time. Suggestrepeat in 3 to 6 months if clinically indicated.Serum or plasma IgA measurement (mass/volume)Ordered By: Jessica Christian on 36-49-9206VdR [Mass/Vol]IgA [Mass/volume] in Serum or Bgdjxr59-228SrhmsbrkgMercy Health West HospitalIgA [Mass/Vol]271 mg/eO75-697Rmfwvmstb66 Stevenson Streeterum or plasma IgG measurement (mass/volume)Ordered By: Jessica Christian on 04-12-1269MpA [Mass/Vol]IgG [Mass/volume] in Serum or Uqireb276-8296DvatnhbnfMercy Health West HospitalIgG [Mass/Vol]891 mg/uI480-2840Karpkbthy[address] [place], [place] [address]erum or plasma IgM measurement (mass/volume)Ordered By: Jessica Christian on 66-91-3826ApD [Mass/Vol]IgM [Mass/volume] in Serum or Ayjmer22-784Pmrwfzpfv62 Baker StreetComment on above:Performed at: [employer] [address] [id number] Director: Louis Hansen PhD, Phone: [phone] [Mass/Vol]125 mg/eJ17-726Leoptwx[address] [place], [place] [address]Comment on above:Performed at: [employer] [address] [id number] Director: Louis Hansen PhD, Phone: [phone] or plasma albumin measurement (mass/volume)Ordered By: Jessica Christian on 85-44-6580Zbturjh [Mass/Vol]Albumin [Mass/volume] in Serum or PlasmaLow2.9-4.4FProMedica Defiance Regional Hospital Albumin [Mass/Vol]2.5 g/dLLow2.9-4.4FProMedica Defiance Regional HospitalComment on above:Performed By: #### SPE W RFX GA, GA SERUM ####[facility] , Serum or plasma albumin/globulin mass ratioOrdered By: Jessica Christian on 64-52-7042Ddvhsbt/Globulin [Mass ratio]Serum or plasma albumin/globulin mass ratio0.7-1.7FProMedica Defiance Regional HospitalAlbumin/Globulin [Mass ratio]0.8 {ratio}Normal0.7-1.7FProMedica Defiance Regional HospitalComment on above:Performed By: #### SPE W RFX GA, GA SERUM ####[facility] ,Serum or plasma alpha 1 globulin measurement by electrophoresis (mass/volume)Ordered By: Jessica Christian on 05-16-0415Yupkg 1 globulin Elph [Mass/Vol]Serum or plasma alpha 1 globulin measurement by electrophoresis (mass/volume)High0.0-0.4FProMedica Defiance Regional HospitalAlpha 1 globulin Elph [Mass/Vol]0.5 g/dLHigh0.0-0.4 [facility] Hospitalerum or plasma alpha 2 globulin measurement by electrophoresis (mass/volume)Ordered By: Jessica Christian on 22-86-9806Sbtzq 2 globulin Elph [Mass/Vol]Serum or plasma alpha 2 globulin measurement by electrophoresis (mass/volume)High0.4-1.0[facility] HospitalAlpha 2 globulin Elph [Mass/Vol]1.3 g/dLHigh0.4-1.0[facility] Serum or plasma beta globulin measurement by electrophoresis (mass/volume) Ordered By: Jessica Christian on 43-15-9545Hang globulin Elph [Mass/Vol]Serum or plasma beta globulin measurement by electrophoresis (mass/volume)0.7-1.3 [facility] HospitalBeta globulin Elph [Mass/Vol]0.7 g/dL0.7-1.3 [facility] Hospitalerum or plasma gamma globulin measurement by electrophoresis (mass/volume)Ordered By: Jessica Christian on 87-55-4642Fwnzi globulin Elph [Mass/Vol]Serum or plasma gamma globulin measurement by electrophoresis (mass/volume)0.4-1.8[facility] HospitalGamma globulin Elph [Mass/Vol]0.8 g/dL0.4-1.8Way[facility] Hospitalerum or plasma immunoelectrophoresis interpretationOrdered By: Jessica Christian on 66-47-9527Toilvxjaykyiff IEP [Interp]Serum or plasma immunoelectrophoresis interpretation.[facility] HospitalComment on above:Presence of monoclonal protein is unclear at this time. Suggestrepeat in 3 to 6 months if clinically indicated.Performed at: [employer] [facility] [address] [place], [place] [id number] Director: Louis Hansen PhD, Phone: [phone] IEP [Interp]Comment:.[facility] HospitalComment on above:Presence of monoclonal protein is unclear at this time. Suggestrepeat in 3 to 6 months if clinically indicated.Performed at: [employer] [facility] [address] [place], [place] [id number] Director: Louis Hansen PhD, Phone: [phone] total protein measurementOrdered By: Jessica Christian on 80-17-9328Jeeklov [Mass/Vol]Protein [Mass/volume] in Serum or PlasmaLow6.0-8.5FProMedica Defiance Regional HospitalProtein [Mass/Vol]5.7 g/dLLow6.0-8.5FProMedica Defiance Regional HospitalComment on above:Performed By: #### SPE W RFX GA, GA SERUM ####[facility] ,Stomatocytes [Presence] in Blood by Light microscopyOrdered By: Becky Nash on 90-88-0195Jhefnsgcjtqm LM Ql (Bld)Red blood cell stomatocyte detectionWayne Hospitaltomatocytes LM Ql (Bld)Slight [facility] HospitalClostridioides difficile toxin B tcdB gene [Presence] in Stool by CIPRIANO with probe deteOrdered By: Becky Nash on 03-02-2025 C. difficile toxin B tcdB gene CIPRIANO+probe Ql (Stl)Clostridioides difficile toxin B tcdB gene [Presence] in Stool by CIPRIANO with probe deteNegativeMercy Health West HospitalComment on above:Testing performed by RT-PCRC. difficile toxin B tcdB gene CIPRIANO+probe Ql (Stl)PositiveNegativeMercy Health West Hospital Comment on above:Testing performed by RT-PCRClostridium Difficileon 03-02-2025 Clostridium DifficilePositiveInvalid Interpretation CodeNegativeThe [facility] Physician GroupComment on above:Order Comment: Critical value result called at 1827 on 03/02/25 > or = to 3 loose/watery stools in the last 24 HRS? Y Is patient on promotility agents or tube feeding? NResult Comment: Testing performed by RT-PCRPERFORMED BY:[place] [address] [place], [place] [phone] MEDICAL DIRECTORKEMAL FLORES M.D.Performed By: #### CDT ####[address] [address] USAComplete Blood Count Auto Diffon 03-02-2025 Basophils (Bld) [#/Vol]0.2 10*3/uLNormal0.0-0.2The [facility] Comment on above:Result Comment: PERFORMED BY:[address]JC [place], [place] [phone] MEDICAL DIRECTORMOCINDY ACKERMAN M.D.Performed By: #### CBC ####[place] [address] USABasophils/100 WBC (Bld)1.0 % Normal.The [facility] Physician GroupComment on above:Performed By: #### CBC ####[place] [address] [place] Eosinophils (Bld) [#/Vol]0.6 10*3/uLHigh0.0-0.45The [facility] Comment on above:Performed By: #### CBC ####[place] [address] USAEosinophils/100 WBC (Bld)2.8 %Normal.The [facility] Physician GroupComment on above:Performed By: #### CBC ####[place] [address] USAErythrocyte distribution width (RBC) [Ratio]13.7 %Ryanlu92.9-15.3The [facility] Physician GroupComment on above:Performed By: #### CBC ####[place] [address] USAHematocrit (Bld) [Volume fraction]25.8 %Low34.0-46.4The [facility] Physician GroupComment on above:Performed By: #### CBC ####[address] Hemoglobin (Bld) [Mass/Vol]8.2 g/dLLow11.8-15.4The [facility] Comment on above:Performed By: #### CBC ####[place] [address] USALymphocytes (Bld) [#/Vol]1.8 10*3/uLNormal 1.00-4.8The [facility] Physician GroupComment on above:Performed By: #### CBC ####[address] Lymphocytes/100 WBC (Bld)8.7 %Normal.The [facility] Physician GroupComment on above:Performed By: #### CBC ####[address] Kirk StreetMCH (RBC) [Entitic mass]27.7 hcOdlhlj79.7-34.3The [facility] Physician GroupComment on above:Performed By: #### CBC ####[place] [address] [facility] HOSPITALMCV (RBC) [Entitic vol]87.4 oWAcebme13-796Eoc [facility] Physician GroupComment on above:Performed By: #### CBC ####[place] [address] USAMean Corpuscular HGB Conc31.7 g/dLLow32.0-35.0The [facility] Physician GroupComment on above:Performed By: #### CBC ####[place] [address] USAMonocytes (Bld) [#/Vol]2.1 10*3/uLHigh 0.0-0.8The [facility] Physician GroupComment on above:Performed By: #### CBC ####[address] Monocytes/100 WBC (Bld)10.4 %Normal.The [facility] Physician [facility] HospitalComment on above:Result Comment: Absolute monocytosis is commonly reactive in nature. However, if unexplained, recommend follow-up CBC in 3 months to evaluate for persistence.Performed By: #### CBC ####[place] [address] USANeutrophils (Bld) [#/Vol]15.8 10*3/uLHigh1.8-7.7The [facility] Physician GroupComment on above:Performed By: #### CBC ####[place] [address] USANeutrophils/100 WBC (Bld)77.1 %Normal.The [facility] Physician GroupComment on above:Performed By: #### CBC ####[place] [address] USANRBC%0.0 /100{WBC}Normal0-0.5The [facility] Physician GroupComment on above: Performed By: #### CBC ####[place] [address] USAPlatelet mean volume (Bld) [Entitic vol]9.7 fLNormal 6.3-10.7The [facility] Physician GroupComment on above:Performed By: #### CBC ####[place] [address] [place] Platelets (Bld) [#/Vol]256 10*3/rVGehoky425-966Fdc [facility] Physician [facility] Comment on above:Performed By: #### CBC ####[place] [address] USARBC (Bld) [#/Vol]2.95 10*6/uLLow3.60-5.00The [facility] Physician [facility] HospitalComment on above:Performed By: #### CBC ####[place] [address] USAWBC (Bld) [#/Vol]20.5 10*3/uLHigh3.8-11.6The [facility] Physician GroupComment on above:Performed By: #### CBC ####[place] [address] [place] [address] USAComprehensive Metabolic Panelon 47-03-9542Wtqgcwt [Mass/Vol]3.3 g/dLLow 3.5-5.7The [facility] Physician GroupComment on above:Performed By: #### MG, PHOS, CMP ####[place] [address] [place] [address] USAAlbumin/Globulin [Mass ratio]0.9 {ratio}NormalThe [facility] Comment on above:Performed By: #### MG, PHOS, CMP ####[address] [address] USAALP [Catalytic activity/Vol]63 U/L Muehgz96-700Jdc [facility] Physician GroupComment on above:Performed By: #### MG, PHOS, CMP ####[address] [address] USAALT [Catalytic activity/Vol]U/LLow7-52The [facility] Physician GroupComment on above:Performed By: #### MG, PHOS, CMP ####[address] [address] USAAnion gap [Moles/Vol]13.8 mmol/LNormal6.0-15.0 The [facility] Physician GroupComment on above:Performed By: #### MG, PHOS, CMP ####[address] [address] USAAST [Catalytic activity/Vol]11 U/DMhw97-06Mhv [facility] Physician GroupComment on above:Performed By: #### MG, PHOS, CMP ####[address] [address] USABilirubin [Mass/Vol]0.3 mg/dLNormal0.3-1.0The [facility] Physician GroupComment on above:Performed By: #### MG, PHOS, CMP ####[address] [address] USACalcium [Mass/Vol]8.6 mg/dLNormal8.6-10.3The [facility] Physician GroupComment on above: Performed By: #### MG, PHOS, CMP ####[place] [address] [place] [address] USAChloride [Moles/Vol]96 mmol/QHqb51-209Idj [facility] Physician GroupComment on above:Performed By: #### MG, PHOS, CMP ####[place] [address] [place] [address] USACO2 [Moles/Vol]26.1 mmol/GEptzti86.0-31.0The [facility] Physician GroupComment on above:Performed By: #### MG, PHOS, CMP ####[place] [address] USACreatinine [Mass/Vol]3.63 mg/dLSignificant change up0.60-1.20The [facility] Physician GroupComment on above:Performed By: #### MG, PHOS, CMP ####[place] [address] [place] Creatinine Clr Calc Kwabzett18.59NoNovant Health Ballantyne [facility] Center Physician GroupComment on above:Performed By: #### MG, PHOS, CMP ####[place] [address] USAEstimated GFR14.251 mL/MinNoBrecksville VA / Crille HospitalComment on above:Performed By: #### MG, PHOS, CMP ####[place] [address] USAGlobulin (S) [Mass/Vol]3.5 g/dLNoNovant Health Ballantyne [facility] Center Physician GroupComment on above:Performed By: #### MG, PHOS, CMP ####[facility] [place] [address] USAGlucose [Mass/Vol]173 mg/sUXlba39-916Ses [facility] Physician GroupComment on above:Result Comment: Random Glucose Reference Range is dependent on time and content of last meal. Glucose of more than 200 mg/dL in a nonstressed, ambulatory subject supports the diagnosis of Diabetes Mellitus. ADA recommended reference rangePerformed By: #### MG, PHOS, CMP ####[address] [place] [address] USAPotassium [Moles/Vol] 3.9 mmol/LNormal3.5-5.1The [facility] Physician GroupComment on above:Performed By: #### MAINOR YANG, CMP ####[address] [address] USAProtein [Mass/Vol]6.8 g/dLNormal6.4-8.9The [facility] Physician GroupComment on above:Performed By: #### MAINOR YANG, CMP ####[address] [address] USASodium [Moles/Vol]132 mmol/WOlp238-436Etb [facility] Physician GroupComment on above:Performed By: #### MAINOR YANG, CMP ####[address] [address] USAUrea nitrogen [Mass/Vol]20 mg/dLNormal7-25The [facility] Physician GroupComment on above:Performed By: #### MAINOR YANG, CMP ####[address] [address] USAECG 12 lead ECGon 03-02-2025 ECG 12 lead ECGOrlando Health [facility] Physician [facility] Community HospitalGlucose Poct Glucometerson 09-84-4015Guytvqd0Mpm4: Cleaned MeterNoBrecksville VA / Crille HospitalComment on above:Result Comment: PERFORMED BY:[address] [place], [place] [phone] MEDICAL DIRECTORKEMAL ACKERMAN M.D.Performed By: #### GLULS ####Point of Care testing,Glucose [Mass/Vol]229 mg/dLOrlando Health [facility] Physician [facility] Community HospitalComment on above:Result Comment: Random Glucose Reference Range is dependent on time and content of last meal. Glucose of more than 200 mg/dL in a nonstressed, ambulatory subject supports the diagnosis of Diabetes Mellitus.Performed By: #### GLULS ####Point of Care testing,Glucose [Mass/Vol]183 mg/dLOrlando Health [facility] Physician Group Comment on above:Result Comment: Random Glucose Reference Range is dependent on time and content of last meal. Glucose of more than 200 mg/dL in a nonstressed, ambulatory subject supports the diagnosis of Diabetes Mellitus.PERFORMED BY:[address] [place], [place] [phone] MEDICAL DIRECTORKEMAL ACEKRMAN M.D. Performed By: #### GLULS ####Point of Care testing,Mogetpm1Sin8: Cleaned Meter NormalAdventhealth Kissimmee Physician GroupComment on above:Result Comment: PERFORMED BY:[address] [place], [place] [phone] MEDICAL DIRECTORKEMAL ACKERMAN M.D.Performed By: #### GLULS ####Point of Care testing,Glucose [Mass/Vol]261 mg/dLNoNovant Health Ballantyne Medical Center Physician GroupComment on above:Result Comment: Random Glucose Reference Range is dependent on time and content of last meal. Glucose of more than 200 mg/dL in a nonstressed, ambulatory subject supports the diagnosis of Diabetes Mellitus. Performed By: #### GLULS ####Point of Care testing,Glucose [Mass/Vol]191 mg/dL [facility] Physician GroupComment on above:Result Comment: Random Glucose Reference Range is dependent on time and content of last meal. Glucose of more than 200 mg/dL in a nonstressed, ambulatory subject supports the diagnosis of Diabetes Mellitus.PERFORMED BY:[address] [place], [place] [phone] MEDICAL DIRECTORKEMAL ACKERMAN M.D.Performed By: #### GLULS ####Point of Care testing,Magnesiumon 77-71-6936Fgspnqhka [Mass/Vol]1.9 mg/dLNormal1.9-2.7The [facility] Physician GroupComment on above:Result Comment: PERFORMED BY:[address] [place], [place] [phone] MEDICAL DIRECTORKEMAL ACKERMAN M.D.Performed By: #### MG, PHOS, CMP ####[address] [address] [place] Phosphoruson 75-57-4165Oucsvfmkk [Mass/Vol]2.9 mg/dLNormal2.5-4.5The [facility] Physician GroupComment on above:Performed By: #### MG, PHOS, CMP ####[address] [address] USABlood Cultureon 85-12-9339Zqvuhobk identified Cx Nom (Bld)NO GROWTH 5 DAYS PERFORMED BY: [address] [address] PATHOLOGIST BEAD PICKER KEMAL ACKERMAN M.D.NormalThe [facility] Physician GroupComment on above: Performed By: #### CUBLD ####[address] [address] USABacteria identified Cx Nom (Bld)NO GROWTH 5 DAYS PERFORMED BY: [address] [address] PATHOLOGIST BEAD PICKER KEMAL ACKERMAN M.D.NormalThe [facility] Physician GroupComment on above: Performed By: #### CUBLD ####[address] [address] USAC reactive protein [Mass/volume] in Serum or Plasma Ordered By: Liliana Soliz on 37-90-4752RSL [Mass/Vol]C reactive protein [Mass/volume] in Serum or PlasmaHigh0.0-0.5FProMedica Defiance Regional HospitalCRP [Mass/Vol]16.9 mg/dLHigh0.0-0.5FProMedica Defiance Regional HospitalC-Reactive Proteinon 95-43-8519Y-Reactive Aphcbkq06.9 mg/dLHigh0.0-0.5The [facility] Physician GroupComment on above:Result Comment: PERFORMED BY:[address] [place], [place] [phone] MEDICAL DIRECTORKEMAL ACKERMAN M.D.Performed By: #### CRP, PHOS, DIFF CBC, MG, CMP ####[address] [address] USACT abdomen pelvis wo conon 33-88-7912KT abdomen pelvis wo conNormalThe [facility] Physician GroupComprehensive Metabolic Panelon 52-48-3346Gzjgnhp [Mass/Vol]3.2 g/dLLow3.5-5.7The [facility] Physician GroupComment on above:Performed By: #### CRP, PHOS, DIFF CBC, MG, CMP ####[address] USAAlbumin/Globulin [Mass ratio]0.9 {ratio}NormalThe [facility] Physician GroupComment on above:Performed By: #### CRP, PHOS, DIFF CBC, MG, CMP ####[address] [address] USAALP [Catalytic activity/Vol]61 U/XGhoelv10-450Ttd [facility] Physician GroupComment on above:Performed By: #### CRP, PHOS, DIFF CBC, MG, CMP ####[address] [address] USAALT [Catalytic activity/Vol]U/LLow7-52The [facility] Physician GroupComment on above: Performed By: #### CRP, PHOS, DIFF CBC, MG, CMP ####[address] [address] USAAnion gap [Moles/Vol]15.8 mmol/LHigh 6.0-15.0The [facility] Physician GroupComment on above:Performed By: #### CRP, PHOS, DIFF CBC, MG, CMP ####[address] [address] USAAST [Catalytic activity/Vol]10 U/KSpj35-10Prj [facility] Physician GroupComment on above:Performed By: #### CRP, PHOS, DIFF CBC, MG, CMP ####[address] [address] [place] Bilirubin [Mass/Vol]0.3 mg/dLNormal0.3-1.0The [facility] Physician GroupComment on above:Performed By: #### CRP, PHOS, DIFF CBC, MG, CMP ####[place] [address] USACalcium [Mass/Vol]9.2 mg/dL Normal8.6-10.3The [facility] Physician GroupComment on above:Performed By: #### CRP, PHOS, DIFF CBC, MG, CMP ####[place] [address] USAChloride [Moles/Vol]95 mmol/KPxf53-617Hsv [facility] Physician GroupComment on above:Performed By: #### CRP, PHOS, DIFF CBC, MG, CMP ####[place] [address] USACO2 [Moles/Vol]27.0 mmol/CIlgnnz99.0-31.0The [facility] Physician GroupComment on above:Performed By: #### CRP, PHOS, DIFF CBC, MG, CMP ####[place] [address] USACreatinine [Mass/Vol]5.11 mg/dLSignificant change up0.60-1.20The [facility] Physician GroupComment on above:Performed By: #### CRP, PHOS, DIFF CBC, MG, CMP ####[place] [address] USACreatinine Clr Calc Pharmacy 12.50NoNovant Health Ballantyne Medical Center Physician GroupComment on above:Performed By: #### CRP, PHOS, DIFF CBC, MG, CMP ####[place] [address] USAEstimated GFR9.455 mL/MinNoNovant Health Ballantyne Medical Center Physician GroupComment on above:Performed By: #### CRP, PHOS, DIFF CBC, MG, CMP ####[place] [address] [place] Globulin (S) [Mass/Vol]3.7 g/dLNoNovant Health Ballantyne Medical Center Physician GroupComment on above:Performed By: #### CRP, PHOS, DIFF CBC, MG, CMP ####[place] [address] USAGlucose [Mass/Vol]140 mg/dL Zjzm25-496Ebf [facility] Physician GroupComment on above:Result Comment: Random Glucose Reference Range is dependent on time and content of last meal. Glucose of more than 200 mg/dL in a nonstressed, ambulatory subject supports the diagnosis of Diabetes Mellitus. ADA recommended reference rangePerformed By: #### CRP, PHOS, DIFF CBC, MG, CMP ####[place] [address] USAPotassium [Moles/Vol]3.8 mmol/LNormal3.5-5.1The [facility] Physician GroupComment on above:Performed By: #### CRP, PHOS, DIFF CBC, MG, CMP ####[place] [address] USAProtein [Mass/Vol]6.9 g/dLNormal6.4-8.9The [facility] Comment on above:Performed By: #### CRP, PHOS, DIFF CBC, MG, CMP ####[place] [address] USASodium [Moles/Vol]134 mmol/CYrl125-242Qay [facility] Physician GroupComment on above:Performed By: #### CRP, PHOS, DIFF CBC, MG, CMP ####[place] [address] USAUrea nitrogen [Mass/Vol]34 mg/dLHigh7-25The [facility] Physician GroupComment on above:Performed By: #### CRP, PHOS, DIFF CBC, MG, CMP ####[place] [address] USADiff and CBCon 75-31-2983Qauevyqwlecy Ql (Bld)SlightNormalThe [facility] Physician GroupComment on above:Performed By: #### CRP, PHOS, DIFF CBC, MG, CMP ####[place] [address] [place] Basophils/100 WBC (Bld)2 %Normal0-2The [facility] Physician GroupComment on above:Performed By: #### CRP, PHOS, DIFF CBC, MG, CMP ####[address] USAEosinophils/100 WBC (Bld)1 % Normal1-3The [facility] Physician GroupComment on above:Performed By: #### CRP, PHOS, DIFF CBC, MG, CMP ####[place] [address] USAErythrocyte distribution width (RBC) [Ratio]14.2 %Normal 11.9-15.3The [facility] Physician GroupComment on above:Performed By: #### CRP, PHOS, DIFF CBC, MG, CMP ####[place] [address] USAHematocrit (Bld) [Volume fraction]27.0 %Low34.0-46.4The [facility] Physician GroupComment on above:Performed By: #### CRP, PHOS, DIFF CBC, MG, CMP ####[place] [address] USAHemoglobin (Bld) [Mass/Vol]8.6 g/dLLow11.8-15.4The [facility] Physician GroupComment on above:Performed By: #### CRP, PHOS, DIFF CBC, MG, CMP ####[address] [place] HypochromasiaSlightNoNovant Health Ballantyne Medical Center Physician GroupComment on above:Performed By: #### CRP, PHOS, DIFF CBC, MG, CMP ####[address] USALarge PlateletsSlightNoNovant Health Ballantyne Medical Center Physician GroupComment on above:Result Comment: PERFORMED BY:[address] [place], [place] [phone] MEDICAL DIRECTORKEMAL ACKERMAN M.D.Performed By: #### CRP, PHOS, DIFF CBC, MG, CMP ####[address] [place] Lymphocytes/100 WBC (Bld)5 %Ksh04-92Aju [facility] Physician GroupComment on above:Performed By: #### CRP, PHOS, DIFF CBC, MG, CMP ####[address] (RBC) [Entitic mass]27.2 jqMnbihv94.7-34.3The [facility] Physician GroupComment on above:Performed By: #### CRP, PHOS, DIFF CBC, MG, CMP ####[address] (RBC) [Entitic vol]85.7 bSNylqdf92-983Qem [facility] Physician GroupComment on above:Performed By: #### CRP, PHOS, DIFF CBC, MG, CMP ####[place] [address] USAMean Corpuscular HGB Conc31.8 g/dLLow32.0-35.0The [facility] Physician GroupComment on above:Performed By: #### CRP, PHOS, DIFF CBC, MG, CMP ####[place] [address] [place] Metamyelocytes1 %High0-0The [facility] Physician GroupComment on above:Performed By: #### CRP, PHOS, DIFF CBC, MG, CMP ####[place] [address] USAMonocytes/100 WBC (Bld)7 %Normal2-11The [facility] Physician GroupComment on above:Performed By: #### CRP, PHOS, DIFF CBC, MG, CMP ####[place] [address] USAMyelocytes1 %High0-0The [facility] Physician GroupComment on above: Performed By: #### CRP, PHOS, DIFF CBC, MG, CMP ####[place] [address] USAPlatelet EstimateNormalNormalNormalThe [facility] Physician GroupComment on above:Performed By: #### CRP, PHOS, DIFF CBC, MG, CMP ####[id number] USAPlatelet mean volume (Bld) [Entitic vol]9.8 fLNormal6.3-10.7The [facility] Physician GroupComment on above:Performed By: #### CRP, PHOS, DIFF CBC, MG, CMP ####[place] [address] USAPlatelets (Bld) [#/Vol]271 10*3/qNRsfpyl129-460Bkf [facility] Physician GroupComment on above:Performed By: #### CRP, PHOS, DIFF CBC, MG, CMP ####[address] [place] PolychromasiaSlightNoNovant Health Ballantyne Medical Center Physician GroupComment on above:Performed By: #### CRP, PHOS, DIFF CBC, MG, CMP ####[place] [address] USARBC (Bld) [#/Vol]3.15 10*6/uLLow3.60-5.00The [facility] Physician GroupComment on above:Performed By: #### CRP, PHOS, DIFF CBC, MG, CMP ####[place] [address] USASegmented neutrophils/100 WBC (Bld)83 %Sqlv57-90Qaf [facility] Physician GroupComment on above:Performed By: #### CRP, PHOS, DIFF CBC, MG, CMP ####[place] [address] USAWBC (Bld) [#/Vol]19.3 10*3/uLHigh3.8-11.6The [facility] Physician GroupComment on above:Performed By: #### CRP, PHOS, DIFF CBC, MG, CMP ####[address] USAGlucose Poct Glucometerson 37-75-4239Uasqytb [Mass/Vol]172 mg/dLNoNovant Health Ballantyne [facility] Center Physician GroupComment on above:Result Comment: Random Glucose Reference Range is dependent on time and content of last meal. Glucose of more than 200 mg/dL in a nonstressed, ambulatory subject supports the diagnosis of Diabetes Mellitus.PERFORMED BY:[address] [place] [place], [place] [phone] MEDICAL DIRECTORKEMAL ACKERMAN M.D. Performed By: #### GLULS ####Point of Care testing,Glucose [Mass/Vol]162 mg/dL NormalAdventhealth Kissimmee Physician GroupComment on above:Result Comment: Random Glucose Reference Range is dependent on time and content of last meal. Glucose of more than 200 mg/dL in a nonstressed, ambulatory subject supports the diagnosis of Diabetes Mellitus.PERFORMED BY:[address] [place], [place] [phone] MEDICAL DIRECTORKEMAL ACKERMAN M.D.Performed By: #### GLULS ####Point of Care testing,Fmklgtp8Bdb7: Cleaned MeterNormJay Hospital Physician GroupComment on above:Result Comment: PERFORMED BY:[address] [place], [place] [phone] MEDICAL DIRECTORKEMAL FLORES M.D.Performed By: #### GLULS ####Point of Care testing,Glucose [Mass/Vol]165 mg/dLOrlando Health Winn[facility] Palmer [facility] for [facility] Physician GroupComment on above:Result Comment: Random Glucose Reference Range is dependent on time and content of last meal. Glucose of more than 200 mg/dL in a nonstressed, ambulatory subject supports the diagnosis of Diabetes Mellitus.Performed By: #### GLULS ####Point of Care testing,Result Comment: Random Glucose Reference Range is dependent on time and content of last meal. Glucose of more than 200 mg/dL in a nonstressed, ambulatory subject supports the diagnosis of Diabetes Mellitus.PERFORMED BY:[address] [place], [place] [phone] MEDICAL DIRECTORKEMAL ACKERMAN M.D. Laboratory - Microbiology and Antimicrobial susceptibilityOrdered By: Becky Nash on 94-95-2454Tmnvwvkf identified Cx Nom (Bld)NO GROWTH 5 DAYSMercy Health West HospitalBacteria identified Cx Nom (Bld)NO GROWTH 5 DAYSMercy Health West HospitalMagnesiumon 97-50-6892Nyewtkpde [Mass/Vol]1.8 mg/dLLow 1.9-2.7The [facility] Physician GroupComment on above:Result Comment: PERFORMED BY:[address] [place], [place] [phone] MEDICAL JUANA ACKERMAN M.D.Performed By: #### CRP, PHOS, DIFF CBC, MG, CMP ####[facility] [address] [place] [address] USAMetamyelocytes/100 WBC Manual cnt (Bld)Ordered By: Becky Nash on 44-97-9867Tiublegsgohtbj/100 WBC (Bld)Metamyelocytes/100 leukocytes in Blood by Manual count[address] Metamyelocytes/100 WBC (Bld)1 %[address] Myelocytes/100 WBC Manual cnt (Bld)Ordered By: Becky Nash on 03-01-2025 Myelocytes/100 WBC (Bld)Myelocytes/100 leukocytes in Blood by Manual count[address] StreetMyelocytes/100 WBC (Bld)1 %[address]No Panel InformationOrdered By: Edwin Kaufman on 27-95-6976Fjlwyqhmucjgi Pathology TestSee commentMercy Health West HospitalComment on above:See report. Scanned copy available in EMR.Pathology Request for Lab Corpon [id number] Request for Lab CorpNormalThSt. Luke's [facility] Physician [facility] HospitalComment on above:Order Comment: GI SPECIMENResult Comment: See report. Scanned copy available in EMR.PERFORMED BY:[address] [place], [place] [phone] MEDICAL DIRECTORLANDRY LEE M.D.Performed By: #### PATH TO [facility] ####[address] [place] [address] [place] Phosphoruson 99-38-2234Jatyfinvl [Mass/Vol]2.6 mg/dLNormal2.5-4.5The [facility] Physician GroupComment on above:Performed By: #### CRP, PHOS, DIFF CBC, MG, CMP ####[address] [place] [address] [facility] Comprehensive Metabolic Panelon 57-28-6267Rxjwpwk [Mass/Vol]3.4 g/dLLow3.5-5.7 The [facility] Physician GroupComment on above:Performed By: #### MG, CMP, PHOS, SCAN CBC ####[address] [place] [address] USAAlbumin/Globulin [Mass ratio]0.9 {ratio}NormalThe [facility] Comment on above:Performed By: #### MG, CMP, PHOS, SCAN CBC ####[place] [address] USAALP [Catalytic activity/Vol]58 U/JTcgmpc96-324Aga [facility] Physician GroupComment on above: Performed By: #### MG, CMP, PHOS, SCAN CBC ####[place] [address] USAALT [Catalytic activity/Vol]U/LLow7-52 The [facility] Physician GroupComment on above:Performed By: #### MG, CMP, PHOS, SCAN CBC ####[place] [address] USAAnion gap [Moles/Vol]14.3 mmol/LNormal6.0-15.0The [facility] Comment on above:Performed By: #### MG, CMP, PHOS, SCAN CBC ####[place] [address] USAAST [Catalytic activity/Vol]8 U/LNfv16-34Cfr [facility] Physician GroupComment on above: Performed By: #### MG, CMP, PHOS, SCAN CBC ####[place] [address] USABilirubin [Mass/Vol]0.3 mg/dLNormal 0.3-1.0The [facility] Physician GroupComment on above:Performed By: #### MG, CMP, PHOS, SCAN CBC ####[place] [address] USACalcium [Mass/Vol]9.0 mg/dLNormal8.6-10.3The [facility] Comment on above:Performed By: #### MG, CMP, PHOS, SCAN CBC ####[place] [address] USAChloride [Moles/Vol] 95 mmol/AZow43-545Svb [facility] Physician GroupComment on above:Performed By: #### MG, CMP, PHOS, SCAN CBC ####[place] [address] USACO2 [Moles/Vol]28.3 mmol/GLinhwj69.0-31.0The [facility] Physician GroupComment on above:Performed By: #### MG, CMP, PHOS, SCAN CBC ####[address] Creatinine [Mass/Vol]4.43 mg/dLSignificant change up0.60-1.20The [facility] Physician GroupComment on above:Performed By: #### MG, CMP, PHOS, SCAN CBC ####[address] Creatinine Clr Calc Pnrubgzl75.54NoNovant Health Ballantyne Medical Center Physician GroupComment on above:Performed By: #### MG, CMP, PHOS, SCAN CBC ####[place] [address] USAEstimated GFR11.221 mL/MinNoNovant Health Ballantyne Medical Center Physician GroupComment on above:Performed By: #### MG, CMP, PHOS, SCAN CBC ####[address] Globulin (S) [Mass/Vol]3.7 g/dLNormJay Hospital Physician GroupComment on above:Performed By: #### MG, CMP, PHOS, SCAN CBC ####[address] [address] USAGlucose [Mass/Vol]171 mg/zZTsgk17-114 The [facility] Physician GroupComment on above:Result Comment: Random Glucose Reference Range is dependent on time and content of last meal. Glucose of more than 200 mg/dL in a nonstressed, ambulatory subject supports the diagnosis of Diabetes Mellitus. ADA recommended reference rangePerformed By: #### MG, CMP, PHOS, SCAN CBC ####[place] [id number] USAPotassium [Moles/Vol]3.6 mmol/LNormal3.5-5.1The [facility] Physician GroupComment on above:Performed By: #### MG, CMP, PHOS, SCAN CBC ####[place] [address] USAProtein [Mass/Vol]7.1 g/dLNormal6.4-8.9The [facility] Physician GroupComment on above:Performed By: #### MG, CMP, PHOS, SCAN CBC ####[place] [address] USASodium [Moles/Vol]134 mmol/FSbt671-603Zbz [facility] Physician GroupComment on above:Performed By: #### MG, CMP, PHOS, SCAN CBC ####[place] [address] USAUrea nitrogen [Mass/Vol]27 mg/dLHigh7-25The [facility] Physician GroupComment on above:Performed By: #### MG, CMP, PHOS, SCAN CBC ####[place] [address] USAGlucose Poct Glucometerson 02-28-2025 Glucose [Mass/Vol]194 mg/dLNoThe Christ Hospitale [facility] Physician GroupComment on above: Result Comment: Random Glucose Reference Range is dependent on time and content of last meal. Glucose of more than 200 mg/dL in a nonstressed, ambulatory subject supports the diagnosis of Diabetes Mellitus.PERFORMED BY:[address] [place], [place] [phone] MEDICAL JUANA ACKERMAN M.D.Performed By: #### GLULS ####Point of Care testing,Glucose [Mass/Vol]251 mg/dLOrlando Health [facility] Physician [facility] Comment on above:Result Comment: Random Glucose Reference Range is dependent on time and content of last meal. Glucose of more than 200 mg/dL in a nonstressed, ambulatory subject supports the diagnosis of Diabetes Mellitus.PERFORMED BY:[address] [place], [place] [phone] MEDICAL DIRECTORKEMAL ACKERMAN M.D. Performed By: #### GLULS ####Point of Care testing,Glucose [Mass/Vol]168 mg/dL NormalThe [facility] Physician GroupComment on above:Result Comment: Random Glucose Reference Range is dependent on time and content of last meal. Glucose of more than 200 mg/dL in a nonstressed, ambulatory subject supports the diagnosis of Diabetes Mellitus.PERFORMED BY:[address] [place], [place] [phone] MEDICAL DIRECTORKEMAL ACKERMAN M.D.Performed By: #### GLULS ####Point of Care testing,Magnesiumon 57-49-3890Jcqlnwrrq [Mass/Vol]1.8 mg/dLLow1.9-2.7The [facility] Physician [facility] HospitalComment on above:Result Comment: PERFORMED BY:[address] [place] [place], [place] [phone] MEDICAL DIRECTORKEMAL ACKERMAN M.D.Performed By: #### MG, CMP, PHOS, SCAN CBC ####[address] [address] USANM gastric emptying studyon [id number] gastric emptying studyNormJay Hospital Physician [facility] Community HospitalPhosphoruson 07-27-5033Ayhmssokb [Mass/Vol]2.3 mg/dLLow 2.5-4.5The [facility]byterian Medical CenterComment on above:Performed By: #### MG, CMP, PHOS, SCAN CBC ####[address] [place] [address] USAProt Electrophor w/reflex IFEon 20-05-0821Abymicp [Mass/Vol]2.8 g/dLLow 2.9-4.4The [facility] Physician GroupComment on above:Performed By: #### SPE W RFX GA, RFXSPE-GA ####[facility] ,Albumin/Globulin [Mass ratio]0.7 {ratio}Normal0.7-1.7The [facility] Physician GroupComment on above:Performed By: #### SPE W RFX GA, RFXSPE-GA ####[facility] ,Rreoi-2-Imqludwv4.5 g/dLHigh0.0-0.4The [facility] Physician GroupComment on above:Performed By: #### SPE W RFX GA, RFXSPE-GA ####[facility] ,Xxujg-6-Pvydxnwu2.4 g/dLHigh 0.4-1.0The [facility] Physician GroupComment on above:Performed By: #### SPE W RFX GA, RFXSPE-GA ####[facility] ,Beta Globulin0.9 g/dLNormal0.7-1.3 The [facility] Physician GroupComment on above:Performed By: #### SPE W RFX GA, RFXSPE-GA ####[facility] ,Gamma Globulin1.1 g/dLNormal0.4-1.8The [facility] Physician GroupComment on above:Performed By: #### SPE W RFX GA, RFXSPE-GA ####[facility] ,Globulin (S) [Mass/Vol]3.8 g/dLNormal 2.2-3.9The [facility] Physician GroupComment on above:Performed By: #### SPE W RFX GA, RFXSPE-GA ####[facility] ,Immunofixation Reflex.Normal.The [facility] Physician GroupComment on above:Performed By: #### SPE W RFX GA, RFXSPE-GA ####[facility] ,Immunofixation ResultComment:Normal.The [facility] Physician GroupComment on above:Result Comment: Presence of monoclonal protein is unclear at this time. Suggest repeat in 3 to 6 months if clinically indicated. Performed at: - Lab[address] [id number] Community [facility] Nurse Supervisor: Louis Hansen PhD, Phone: [id number] By: #### SPE W RFX GA, RFXSPE-GA ####[facility] ,M-SpikeComment:Normal Not ObservedThe [facility] Physician GroupComment on above:Result Comment: SPE shows an asymmetrical gamma.Performed By: #### SPE W RFX GA, RFXSPE-GA ####[facility] ,Protein [Mass/Vol]6.6 g/dLNormal6.0-8.5The [facility] Physician GroupComment on above:Performed By: #### SPE W RFX GA, RFXSPE-GA ####[facility] ,SPE-NoteCommentNormal.The [facility] Comment on above:Result Comment: Protein electrophoresis scan will follow via computer, mail, or pt escort delivery.Performed By: #### SPE W RFX GA, RFXSPE-GA ####[facility] ,Reflex to IFEon [id number] A, Sbixe527 mg/iHHxidcv14-766Cab [facility] Physician GroupComment on above:Performed By: #### SPE W RFX GA, RFXSPE-GA ####[facility] ,Immunoglobulin G1058 mg/oUWmegij085-9227Uft [facility] Physician GroupComment on above:Performed By: #### SPE W RFX GA, RFXSPE-GA ####[facility] ,Immunoglobulin M, Serum 156 mg/eDQwgebk32-198Fvp [facility] Physician GroupComment on above:Result Comment: PERFORMED BY:[address] [place], [place] [phone] MEDICAL DIRECTORKEMAL ACKERMAN M.D. Performed By: #### SPE W RFX GA, RFXSPE-GA ####[facility] ,Scan and CBCon 68-03-8230Nlmsbrpzsmhv Ql (Bld)SlightNormalThe [facility] Comment on above:Performed By: #### MG, CMP, PHOS, SCAN CBC ####[place] [address] USABasophils (Bld) [#/Vol]0.1 10*3/uLNormal0.0-0.2The [facility]ician [facility] HospitalComment on above: Performed By: #### MG, CMP, PHOS, SCAN CBC ####[place] [id number] USABasophils/100 WBC (Bld)0.8 %Normal.The [facility] Physician GroupComment on above:Performed By: #### MG, CMP, PHOS, SCAN CBC ####[place] [address] USAEosinophils (Bld) [#/Vol]0.6 10*3/uLHigh0.0-0.45The [facility] Comment on above:Performed By: #### MG, CMP, PHOS, SCAN CBC ####[place] [id number] USAEosinophils/100 WBC (Bld)3.2 %Normal.The [facility] Physician [facility] HospitalComment on above:Performed By: #### MG, CMP, PHOS, SCAN CBC ####[place] [id number] USAErythrocyte distribution width (RBC) [Ratio]14.3 % Kifoki41.9-15.3The [facility] Physician [facility] HospitalComment on above:Performed By: #### MG, CMP, PHOS, SCAN CBC ####[place] [id number] USAHematocrit (Bld) [Volume fraction]27.3 %Low34.0-46.4 The [facility] Physician GroupComment on above:Performed By: #### MG, CMP, PHOS, SCAN CBC ####[place] [address] USAHemoglobin (Bld) [Mass/Vol]8.8 g/dLLow11.8-15.4The [facility] Comment on above:Performed By: #### MG, CMP, PHOS, SCAN CBC ####[place] [address] USAHypochromasiaSlight NormalThe [facility] Physician GroupComment on above:Performed By: #### MG, CMP, PHOS, SCAN CBC ####[place] [address] USALymphocytes (Bld) [#/Vol]1.7 10*3/uLNormal1.00-4.8The [facility] Physician GroupComment on above:Performed By: #### MG, CMP, PHOS, SCAN CBC ####[place] [address] [place] Lymphocytes/100 WBC (Bld)9.4 %Normal.The [facility] Physician GroupComment on above:Performed By: #### MG, CMP, PHOS, SCAN CBC ####[place] [address] USAMCH (RBC) [Entitic mass]27.9 pgNormal 24.7-34.3The [facility] Physician GroupComment on above:Performed By: #### MG, CMP, PHOS, SCAN CBC ####[place] [id number] USAMCV (RBC) [Entitic vol]86.6 xOHcwmdw43-721Udc [facility] Physician GroupComment on above:Performed By: #### MG, CMP, PHOS, SCAN CBC ####[place] [address] USAMean Corpuscular HGB Conc32.2 g/rJHndyri51.0-35.0The [facility] Physician GroupComment on above: Performed By: #### MG, CMP, PHOS, SCAN CBC ####[place] [address] USAMicrocytosisSlightNormJay Hospital Physician GroupComment on above:Performed By: #### MG, CMP, PHOS, SCAN CBC ####[place] [address] [place] Monocytes (Bld) [#/Vol]1.7 10*3/uLHigh0.0-0.8The [facility] Comment on above:Performed By: #### MG, CMP, PHOS, SCAN CBC ####[place] [address] USAMonocytes/100 WBC (Bld)9.6 %Normal.The [facility] Physician GroupComment on above:Performed By: #### MG, CMP, PHOS, SCAN CBC ####[place] [address] USANeutrophils (Bld) [#/Vol]13.5 10*3/uLHigh1.8-7.7The [facility] Physician GroupComment on above:Performed By: #### MG, CMP, PHOS, SCAN CBC ####[place] [address] [place] Neutrophils/100 WBC (Bld)77.0 %Normal.The [facility] Physician GroupComment on above:Performed By: #### MG, CMP, PHOS, SCAN CBC ####[place] [address] USANRBC%0.1 /100{WBC}Normal0-0.5The [facility] Physician GroupComment on above:Performed By: #### MG, CMP, PHOS, SCAN CBC ####[place] [address] [place] Platelet EstimateNormalNormalNormJay Hospital Physician GroupComment on above:Performed By: #### MG, CMP, PHOS, SCAN CBC ####[place] [address] [place] [address] USAPlatelet mean volume (Bld) [Entitic vol]9.4 fLNormal6.3-10.7The [facility] Physician GroupComment on above:Performed By: #### MG, CMP, PHOS, SCAN CBC ####[address] [address] USAPlatelet MorphologyNormalNormalNormalThe [facility] Physician GroupComment on above:Result Comment: PERFORMED BY:[address] [place], [place] [phone] MEDICAL DIRECTORKEMAL ACKERMAN M.D.Performed By: #### MG, CMP, PHOS, SCAN CBC ####[address] [address] [place] Platelets (Bld) [#/Vol]281 10*3/uELlsprz482-725Qqd [facility] Comment on above:Performed By: #### MG, CMP, PHOS, SCAN CBC ####[address] [address] USAPolychromasiaSlight NormalThe [facility] Physician [facility] HospitalComment on above:Performed By: #### MG, CMP, PHOS, SCAN CBC ####[address] [address] USARBC (Bld) [#/Vol]3.15 10*6/uLLow3.60-5.00The [facility] Comment on above:Performed By: #### MG, CMP, PHOS, SCAN CBC ####[address] [address] USAWBC (Bld) [#/Vol]17.6 10*3/uLHigh3.8-11.6The [facility]ician [facility] HospitalComment on above:Performed By: #### MG, CMP, PHOS, SCAN CBC ####[address] [address] USAAlanine aminotransferase [Enzymatic activity/volume] in Serum or PlasmaOrdered By: Becky Nash on 27-19-2462UWF [Catalytic activity/Vol]Alanine aminotransferase [Enzymatic activity/volume] in Serum or PlasmaLow7-52[facility] HospitalAlbumin [Mass/volume] in Serum or Plasma by Bromocresol green (BCG) dye binding methoOrdered By: Becky Nash on 21-11-0350Kawxodc BCG dye [Mass/Vol]Albumin [Mass/volume] in Serum or Plasma by Bromocresol green (BCG) dye binding methoLow3.5-5.7FProMedica Defiance Regional HospitalAlkaline phosphatase [Enzymatic activity/volume] in Serum or PlasmaOrdered By: Becky Nash on 98-22-9392IQB [Catalytic activity/Vol]Alkaline phosphatase [Enzymatic activity/volume] in Serum or Fdawqc99-395NwrwzsijeMercy Health West HospitalAspartate aminotransferase [Enzymatic activity/volume] in Serum or Plasma Ordered By: Becky Nash on 72-68-5253KVB [Catalytic activity/Vol]Aspartate aminotransferase [Enzymatic activity/volume] in Serum or MesmeaMpf23-98HqrjqtxexMercy Health West HospitalBasophils Auto (Bld) [#/Vol]Ordered By: Becky Nash on 90-45-1493Myloevkti (Bld) [#/Vol]Automated basophil count0.0-0.2FProMedica Defiance Regional HospitalBasophils/100 WBC Auto (Bld)Ordered By: Becky Nash on 02-14-8162Kajfigeud/100 WBC (Bld)Automated basophil %.[facility] HospitalBilirubin.total [Mass/volume] in Serum or PlasmaOrdered By: Becky Nash on 68-60-8852Pfxqwghfz [Mass/Vol]Bilirubin.total [Mass/volume] in Serum or PlasmaLow0.3-1.0[facility] HospitalCT abdomen pelvis wo conon 16-56-3123LZ abdomen pelvis wo conNormalThe [facility] Physician GroupCalcium [Mass/volume] in Serum or PlasmaOrdered By: Becky Nash on 40-56-1662Itcbdkp [Mass/Vol]Calcium [Mass/volume] in Serum or PlasmaLow8.6-10.3FProMedica Defiance Regional HospitalCarbon dioxide, total [Moles/volume] in Serum or PlasmaOrdered By: Becky Nash on 19-81-3462MS6 [Moles/Vol]Carbon dioxide, total [Moles/volume] in Serum or Ysfagc61.0-31.0[facility] HospitalChloride [Moles/volume] in Serum or PlasmaOrdered By: Becky Nash on 83-99-4492Vawyiovs [Moles/Vol]Chloride [Moles/volume] in Serum or KsgvgkYpz34-664LqbssbafsMercy Health West HospitalComprehensive Metabolic Panelon 65-35-0212Fmwuonp [Mass/Vol]3.2 g/dLLow3.5-5.7The [facility] Physician GroupComment on above:Performed By: #### CMP, SCAN CBC, PHOS, MG ####[address] [place] [address] USAAlbumin/Globulin [Mass ratio]0.9 {ratio}NormalThe [facility] Medical CenterComment on above:Performed By: #### CMP, SCAN CBC, PHOS, MG ####[place] [address] [address] [place] [address] USAALP [Catalytic activity/Vol]56 U/BSlrxsd33-350Urc [facility]ician [facility] Comment on above:Performed By: #### CMP, SCAN CBC, PHOS, MG ####[address] [address] USAALT [Catalytic activity/Vol]U/LLow7-52The [facility] Medical CenterComment on above:Performed By: #### CMP, SCAN CBC, PHOS, MG ####[address] [address] [place] [address] USAAnion gap [Moles/Vol]13.1 mmol/LNormal6.0-15.0The [facility] GroupComment on above:Performed By: #### CMP, SCAN CBC, PHOS, MG ####[address] [address] USAAST [Catalytic activity/Vol]8 U/YYjv45-92Kfc [facility] CenterComment on above:Performed By: #### CMP, SCAN CBC, PHOS, MG ####[address] [address] USABilirubin [Mass/Vol]0.2 mg/dL Low0.3-1.0The [facility] Physician GroupComment on above:Performed By: #### CMP, SCAN CBC, PHOS, MG ####[address] [place] [address] USACalcium [Mass/Vol]8.2 mg/dLLow8.6-10.3The [facility] Comment on above:Performed By: #### CMP, SCAN CBC, PHOS, MG ####[address] [address] [place] [address] USAChloride [Moles/Vol] 97 mmol/OLde00-471Asn [facility] Physician GroupComment on above:Performed By: #### CMP, SCAN CBC, PHOS, MG ####[address] [place] [address] USACO2 [Moles/Vol]28.1 mmol/LQwqdga91.0-31.0The [facility] Physician GroupComment on above:Performed By: #### CMP, SCAN CBC, PHOS, MG ####[place] [address] USACreatinine [Mass/Vol]5.16 mg/dLSignificant change up0.60-1.20The [facility] Physician GroupComment on above:Performed By: #### CMP, SCAN CBC, PHOS, MG ####[place] [address] [place] Creatinine Clr Calc Cqezmppg75.20NormJay Hospital Physician GroupComment on above:Performed By: #### CMP, SCAN CBC, PHOS, MG ####[place] [address] USAEstimated GFR9.345 mL/MinNoNovant Health Ballantyne Medical Center Physician GroupComment on above:Performed By: #### CMP, SCAN CBC, PHOS, MG ####[place] [address] USAGlobulin (S) [Mass/Vol]3.4 g/dLNormJay Hospital Physician GroupComment on above:Performed By: #### CMP, SCAN CBC, PHOS, MG ####[address] [address] [place] [address] USAGlucose [Mass/Vol]189 mg/vVWrdd58-833 The [facility] Physician GroupComment on above:Result Comment: Random Glucose Reference Range is dependent on time and content of last meal. Glucose of more than 200 mg/dL in a nonstressed, ambulatory subject supports the diagnosis of Diabetes Mellitus. ADA recommended reference rangePerformed By: #### CMP, SCAN CBC, PHOS, MG ####[address] [place] [address] USAPotassium [Moles/Vol]3.2 mmol/LLow3.5-5.1The [facility] Comment on above:Performed By: #### CMP, SCAN CBC, PHOS, MG ####[address] [address] USAProtein [Mass/Vol]6.6 g/dLNormal6.4-8.9The [facility] Physician GroupComment on above:Performed By: #### CMP, SCAN CBC, PHOS, MG ####[address] [address] USASodium [Moles/Vol]135 mmol/NBbu317-584Xlk [facility] Physician GroupComment on above:Performed By: #### CMP, SCAN CBC, PHOS, MG ####[address] [address] USAUrea nitrogen [Mass/Vol]38 mg/dLHigh7-25The [facility] Physician GroupComment on above:Performed By: #### CMP, SCAN CBC, PHOS, MG ####[address] [address] USACreatinine [Mass/volume] in Serum or PlasmaOrdered By: Becky Nash on 96-10-2500Xtchikigub [Mass/Vol]Creatinine [Mass/volume] in Serum or PlasmaInvalid Interpretation Code0.60-1.20[facility] HospitalComment on above:Delta: 4.38 on 02/26/25-06Eosinophils Auto (Bld) [#/Vol]Ordered By: Becky Nash on 82-39-3610Yfwudwjyiej (Bld) [#/Vol]Automated eosinophil countHigh0.0-0.45[facility] Eosinophils/100 WBC Auto (Bld)Ordered By: Becky Nash on 02-27-2025 Eosinophils/100 WBC (Bld)Automated eosinophil %.[facility] HospitalErythrocyte distribution width Auto (RBC) [Ratio]Ordered By: Becky Nash on 19-91-4029Vvvxjklsmrr distribution width (RBC) [Ratio]Erythrocyte distribution width [Ratio] by Automated count11.9-15.3FProMedica Defiance Regional HospitalErythrocyte morphology finding [Identifier] in BloodOrdered By: Becky Nash on 59-20-4343WWP morphology finding Nom (Bld)RBC morphologyNormalMercy Health West HospitalGlobulin Calc (S) [Mass/Vol]Ordered By: Becky Nash on 49-54-1678Zfamuomy (S) [Mass/Vol]Serum globulin measurement by calculation (mass/volume)[facility] HospitalGlucose Glucometer (BldC) [Mass/Vol]Ordered By: Becky Nash on 92-27-2538Yodgtul [Mass/Vol]Capillary blood glucose measurement by glucometer (mass/volume)[facility] HospitalComment on above:Random Glucose Reference Range is dependent on time and content of last meal. Glucose of more than 200 mg/dL in a nonstressed, ambulatory subject supports the diagnosis of Diabetes Mellitus.Glucose Poct Glucometerson 26-19-6909Cpbuygz [Mass/Vol]192 mg/dLNoNovant Health Ballantyne Medical Center Physician GroupComment on above:Result Comment: Random Glucose Reference Range is dependent on time and content of last meal. Glucose of more than 200 mg/dL in a nonstressed, ambulatory subject supports the diagnosis of Diabetes Radha litus.PERFORMED BY:[place] [place], [place] [phone] MEDICAL DIRECTORKEMAL ACKERMAN M.D. Performed By: #### GLULS ####Point of Care testing,Glucose [Mass/Vol]254 mg/dL NormalThe [facility] Physician GroupComment on above:Result Comment: Random Glucose Reference Range is dependent on time and content of last meal. Glucose of more than 200 mg/dL in a nonstressed, ambulatory subject supports the diagnosis of Diabetes Mellitus.PERFORMED BY:[place] [address] [place] [place], [place] [phone] MEDICAL DIRECTORKEMAL ACKERMAN M.D.Performed By: #### GLULS ####Point of Care testing,Glucose [Mass/Vol]182 mg/dLNormJay Hospital Physician GroupComment on above:Result Comment: Random Glucose Reference Range is dependent on time and content of last meal. Glucose of more than 200 mg/dL in a nonstressed, ambulatory subject supports the diagnosis of Diabetes Mellitus.PERFORMED BY:[place] [address] [place], [place] [phone] MEDICAL DIRECTORKEMAL ACKERMAN M.D. Performed By: #### GLULS ####Point of Care testing,Glucose [Mass/Vol]182 mg/dL [facility] Physician GroupComment on above:Result Comment: Random Glucose Reference Range is dependent on time and content of last meal. Glucose of more than 200 mg/dL in a nonstressed, ambulatory subject supports the diagnosis of Diabetes Mellitus.PERFORMED BY:[place] [address] [place], [place] [phone] MEDICAL DIRECTORKEMAL ACKERMAN M.D.Performed By: #### GLULS ####Point of Care testing,Glucose [Mass/volume] in Serum or PlasmaOrdered By: Becky Nash on 40-97-3334Llyjxdz [Mass/Vol]Glucose [Mass/volume] in Serum or VrqmadFejt06-550 [facility] HospitalComment on above:ADA recommended reference rangeRandom Glucose Reference Range is dependent on time and content of last meal. Glucose of more than 200 mg/dL in a nonstressed, ambulatory subject supports the diagnosisof Diabetes Mellitus.Hematocrit Auto (Bld) [Volume fraction]Ordered By: Becky Nash on 60-03-9116Winmgsqyuk (Bld) [Volume fraction]Hematocrit [Volume Fraction] of Blood by Automated jhrevVpy16.0-46.4 [facility] HospitalHemoglobin [Mass/volume] in BloodOrdered By: Becky Nash on 45-89-5044Oupfgabcbi (Bld) [Mass/Vol]Hemoglobin [Mass/volume] in YleljPft05.8-15.4FProMedica Defiance Regional HospitalLeukocytes [#/volume] corrected for nucleated erythrocytes in Blood by Automated counOrdered By: Becky Nash on 82-97-8029FOR corrected for nucl RBC Auto (Bld) [#/Vol] Leukocytes [#/volume] corrected for nucleated erythrocytes in Blood by Automated counHigh3.8-11.6FProMedica Defiance Regional HospitalLymphocytes Auto (Bld) [#/Vol] Ordered By: Becky Nash on 03-06-0574Wfhnrcsgvtj (Bld) [#/Vol]Lymphocytes [#/volume] in Blood by Automated count1.00-4.8[facility] Lymphocytes/100 WBC Auto (Bld)Ordered By: Becky Nash on 02-27-2025 Lymphocytes/100 WBC (Bld)Lymphocytes/100 leukocytes in Blood by Automated count. [facility] CenterH Auto (RBC) [Entitic mass]Ordered By: Becky Nash on 83-38-7035VDW (RBC) [Entitic mass]MCH [Entitic mass] by Automated count24.7-34.3FProMedica Defiance Regional HospitalMCHC Auto (RBC) [Mass/Vol]Ordered By: Becky Nash on 96-69-5678DDZR (RBC) [Mass/Vol]MCHC [Mass/volume] by Automated count32.0-35.0[facility] HospitalMCV Auto (RBC) [Entitic vol]Ordered By: Becky Nash on 59-85-3785PGS (RBC) [Entitic vol]MCV [Entitic volume] by Automated ovjec62-548LcazkktqxMercy Health West HospitalMagnesiumon 17-02-9722Utnoaqotd [Mass/Vol]1.8 mg/dLLow1.9-2.7The [facility] Physician GroupComment on above:Result Comment: PERFORMED BY:[address] [place], [place] [phone] MEDICAL DIRECTORKEMAL ACKERMAN M.D.Performed By: #### CMP, SCAN CBC, PHOS, MG ####[facility] [address] [place] [address] [facility] Magnesium [Mass/volume] in Serum or PlasmaOrdered By: Becky Nash on 02-27-2025 Magnesium [Mass/Vol]Magnesium [Mass/volume] in Serum or PlasmaLow1.9-2.7 [facility] HospitalMonocytes Auto (Bld) [#/Vol]Ordered By: Becky Nash on 08-89-0324Ebcflbbeh (Bld) [#/Vol]Automated blood monocyte countHigh 0.0-0.8[facility] HospitalMonocytes/100 WBC Auto (Bld)Ordered By: Becky Nash on 93-11-0223Bfmjplhrv/100 WBC (Bld)Automated monocyte %.[facility] HospitalNeutrophils Auto (Bld) [#/Vol]Ordered By: Becky Nash on 01-04-5768Rxadyqolqiz (Bld) [#/Vol]Neutrophils [#/volume] in Blood by Automated countHigh1.8-7.7FProMedica Defiance Regional HospitalNeutrophils/100 WBC Auto (Bld) Ordered By: Becky Nash on 14-31-9656Qdpspexqruj/100 WBC (Bld)Automated neutrophil %.[facility] HospitalNo Panel InformationOrdered By: Becky Nash on 73-11-4468Kmuyvuaxp GFR (CKD-EPI)9.345 mL/MinMercy Health West HospitalPharmacy Creatinine Clearance (Chem12.20[facility] HospitalNucleated erythrocytes [Presence] in Blood by Automated countOrdered By: Becky Nash on 42-80-7807Gsyjyeatm RBC Auto Ql (Bld)Nucleated erythrocytes [Presence] in Blood by Automated count0-0.5FProMedica Defiance Regional Hospital Phosphate [Mass/volume] in Serum or PlasmaOrdered By: Becky Nash on 02-27-2025 Phosphate [Mass/Vol]Phosphate [Mass/volume] in Serum or Plasma2.5-4.5FProMedica Defiance Regional HospitalPhosphoruson 79-37-1965Ppucfwebg [Mass/Vol]3.6 mg/dL Normal2.5-4.5The [facility] Physician GroupComment on above:Performed By: #### CMP, SCAN CBC, PHOS, MG ####[facility] [address] [place] [address] USAPlatelet adequacy [Presence] in Blood by Light microscopyOrdered By: Becky Nash on 78-48-3121Elkxslptl LM Ql (Bld)Platelet adequacy [Presence] in Blood by Light microscopyNoDayton VA Medical CenterPlatelet mean volume Auto (Bld) [Entitic vol]Ordered By: Becky Nash on 44-67-1843Cxjszemn mean volume (Bld) [Entitic vol]Platelet mean volume [Entitic volume] in Blood by Automated count6.3-10.7FProMedica Defiance Regional Hospital Platelet morphology finding [Identifier] in BloodOrdered By: Becky Nash on 63-52-8606Zhfsqznn morphology finding Nom (Bld)Platelet morphology finding [Identifier] in BloodNoDayton VA Medical CenterPlatelets Auto (Bld) [#/Vol]Ordered By: Becky Nash on 23-55-3015Ugjsmmmms (Bld) [#/Vol]Platelets [#/volume] in Blood by Automated ikqax746-165IlnqtdfrgMercy Health West Hospital Potassium [Moles/volume] in Serum or PlasmaOrdered By: Becky Nash on 97-05-1227Slyhcoobj [Moles/Vol]Potassium [Moles/volume] in Serum or PlasmaLow 3.5-5.1FProMedica Defiance Regional HospitalProtein [Mass/volume] in Serum or Plasma Ordered By: Becky Nash on 32-15-8234Cbzgtzg [Mass/Vol]Protein [Mass/volume] in Serum or Plasma6.4-8.9[facility] HospitalRBC Auto (Bld) [#/Vol] Ordered By: Becky Nash on 64-19-5964ARP (Bld) [#/Vol]Erythrocytes [#/volume] in Blood by Automated countLow3.60-5.00Way[facility] Hospitalcan and CBCon 11-78-5772Afdfhzinf (Bld) [#/Vol]0.2 10*3/uLNormal0.0-0.2The [facility] Physician GroupComment on above:Performed By: #### CMP, SCAN CBC, PHOS, MG ####[address] Basophils/100 WBC (Bld)1.4 %Normal.The [facility] Physician GroupComment on above:Performed By: #### CMP, SCAN CBC, PHOS, MG ####[place] [address] USAEosinophils (Bld) [#/Vol]0.6 10*3/uL High0.0-0.45The [facility] Physician GroupComment on above:Performed By: #### CMP, SCAN CBC, PHOS, MG ####[place] [address] USAEosinophils/100 WBC (Bld)3.9 %Normal.The [facility] Physician GroupComment on above:Performed By: #### CMP, SCAN CBC, PHOS, MG ####[address] Erythrocyte distribution width (RBC) [Ratio]14.4 %Bvuudz71.9-15.3The [facility] Physician GroupComment on above:Performed By: #### CMP, SCAN CBC, PHOS, MG ####[place] [address] [place] Hematocrit (Bld) [Volume fraction]27.4 %Low34.0-46.4The [facility] Physician GroupComment on above:Performed By: #### CMP, SCAN CBC, PHOS, MG ####[place] [address] USAHemoglobin (Bld) [Mass/Vol]8.9 g/dLLow11.8-15.4The [facility] Physician GroupComment on above: Performed By: #### CMP, SCAN CBC, PHOS, MG ####[place] [address] USALymphocytes (Bld) [#/Vol]1.5 10*3/uL Normal1.00-4.8The [facility] Physician GroupComment on above:Performed By: #### CMP, SCAN CBC, PHOS, MG ####[address] [address] USALymphocytes/100 WBC (Bld)9.9 %Normal.The [facility] Physician GroupComment on above:Performed By: #### CMP, SCAN CBC, PHOS, MG ####[address] [address] [facility] [place] ([place]BC) [Entitic mass]27.6 fpRvznhb62.7-34.3The [facility] Physician GroupComment on above:Performed By: #### CMP, SCAN CBC, PHOS, MG ####[place] [id number] [facility] (RBC) [Entitic vol]85.4 fL Nlrpfk57-507Kef [facility] Physician GroupComment on above:Performed By: #### CMP, SCAN CBC, PHOS, MG ####[id number] USAMean Corpuscular HGB Conc32.3 g/tVKjoset08.0-35.0The [facility] Physician GroupComment on above:Performed By: #### CMP, SCAN CBC, PHOS, MG ####[address] [address] USAMonocytes (Bld) [#/Vol]1.6 10*3/uLHigh0.0-0.8The [facility] Comment on above:Performed By: #### CMP, SCAN CBC, PHOS, MG ####[address] USAMonocytes/100 WBC (Bld)10.8 %Normal.The [facility] Physician GroupComment on above:Performed By: #### CMP, SCAN CBC, PHOS, MG ####[address] USANeutrophils (Bld) [#/Vol]11.2 10*3/uLHigh1.8-7.7The [facility] Physician GroupComment on above:Performed By: #### CMP, SCAN CBC, PHOS, MG ####[place] [address] USANeutrophils/100 WBC (Bld)74.0 %Normal.The [facility] Physician GroupComment on above:Performed By: #### CMP, SCAN CBC, PHOS, MG ####[address] [address] USANRBC%0.0 /100{WBC}Normal0-0.5The [facility] Physician [facility] HospitalComment on above:Performed By: #### CMP, SCAN CBC, PHOS, MG ####[place] [id number] USAPlatelet EstimateNormalNormalNormJay Hospital Physician [facility] HospitalComment on above:Performed By: #### CMP, SCAN CBC, PHOS, MG ####[place] [id number] USAPlatelet mean volume (Bld) [Entitic vol]9.6 fLNormal6.3-10.7The [facility] Physician [facility] Community HospitalComment on above:Performed By: #### CMP, SCAN CBC, PHOS, MG ####[place] [id number] USAPlatelet MorphologyNormalNormalNoNovant Health Ballantyne Medical Center Physician [facility] HospitalComment on above:Result Comment: PERFORMED BY:[address] [place], [place] [phone] MEDICAL DIRECTORKEMAL ACKERMAN M.D.Performed By: #### CMP, SCAN CBC, PHOS, MG ####[place] [id number] [place] Platelets (Bld) [#/Vol]285 10*3/wLCjsjkn730-102Xjg [facility] Comment on above:Performed By: #### CMP, SCAN CBC, PHOS, MG ####[place] [id number] USARBC (Bld) [#/Vol]3.21 10*6/uLLow3.60-5.00The [facility] Physician GroupComment on above:Performed By: #### CMP, SCAN CBC, PHOS, MG ####[facility] [id number] [place] [id number] USARBC morphology finding Nom (Bld)NormalNormalNormal The [facility] Physician GroupComment on above:Performed By: #### CMP, SCAN CBC, PHOS, MG ####[facility] [address] [place] [id number] USAWBC (Bld) [#/Vol]15.1 10*3/uLHigh3.8-11.6The [facility] Physician GroupComment on above:Performed By: #### CMP, SCAN CBC, PHOS, MG ####[facility] [place] [id number] USASerum or plasma albumin/globulin mass ratioOrdered By: Becky Nash on 02-27-2025 Albumin/Globulin [Mass ratio]Serum or plasma albumin/globulin mass ratio [facility] Hospitalerum or plasma anion gap determinationOrdered By: Becky Nash on 17-61-4783Bfqbg gap [Moles/Vol]Serum or plasma anion gap determination6.0-15.0Way[facility] Hospitalodium [Moles/volume] in Serum or PlasmaOrdered By: Becky Nash on 78-44-9336Ksuqpk [Moles/Vol]Sodium [Moles/volume] in Serum or ZvqpsrCpg383-112BxkhiyoxqMercy Health West HospitalUrea nitrogen [Mass/volume] in Serum or PlasmaOrdered By: Becky Nash on 02-27-2025 Urea nitrogen [Mass/Vol]Urea nitrogen [Mass/volume] in Serum or PlasmaHigh7-25 [facility] HospitalWBC Auto (Bld) [#/Vol]Ordered By: Becky Nash on 49-90-5144LJZ (Bld) [#/Vol]Leukocytes [#/volume] in Blood by Automated count High3.8-11.6FProMedica Defiance Regional HospitalComplete Blood Count Auto Diffon 56-42-7288Pblqnjifx (Bld) [#/Vol]0.1 10*3/uLNormal0.0-0.2The [facility] Physician GroupComment on above:Result Comment: PERFORMED BY:[address] [place], [place] [phone] MEDICAL DIRECTORKEMAL ACKERMAN M.D.Performed By: #### MG, CBC, CMP ####[place] [id number] USABasophils/100 WBC (Bld)1.0 %Normal.The [facility] Physician GroupComment on above:Performed By: #### MG, CBC, CMP ####[place] [address] USAEosinophils (Bld) [#/Vol]0.3 10*3/uLNormal0.0-0.45The [facility] Physician GroupComment on above:Performed By: #### MG, CBC, CMP ####[place] [address] USAEosinophils/100 WBC (Bld)1.9 %Normal.The [facility] Physician GroupComment on above:Performed By: #### MG, CBC, CMP ####[place] [address] USAErythrocyte distribution width (RBC) [Ratio]14.5 %Vjzabz06.9-15.3The [facility] Physician GroupComment on above:Performed By: #### MG, CBC, CMP ####[place] [address] [place] Hematocrit (Bld) [Volume fraction]27.4 %Low34.0-46.4The [facility] Physician GroupComment on above:Performed By: #### MG, CBC, CMP ####[place] [address] USAHemoglobin (Bld) [Mass/Vol]9.0 g/dLLow11.8-15.4The [facility] Physician GroupComment on above:Performed By: #### MG, CBC, CMP ####[place] [id number] USALymphocytes (Bld) [#/Vol]1.1 10*3/uLNormal1.00-4.8The [facility] Physician GroupComment on above:Performed By: #### MG, CBC, CMP ####[place] [address] USALymphocytes/100 WBC (Bld)7.8 %Normal.The [facility] Physician GroupComment on above:Performed By: #### MG, CBC, CMP ####[address] (RBC) [Entitic mass]27.6 otWnfonz82.7-34.3The [facility] Physician GroupComment on above:Performed By: #### MG, CBC, CMP ####[address] (RBC) [Entitic vol]84.1 tFZttdfx95-267Fdq [facility] Physician GroupComment on above:Performed By: #### MG, CBC, CMP ####[place] [address] USAMean Corpuscular HGB Conc32.8 g/jJVsspwf16.0-35.0The [facility] Physician GroupComment on above:Performed By: #### MG, CBC, CMP ####[place] [address] [place] Monocytes (Bld) [#/Vol]1.4 10*3/uLHigh0.0-0.8The [facility] Comment on above:Performed By: #### MG, CBC, CMP ####[place] [id number] USAMonocytes/100 WBC (Bld)10.3 %Normal. The [facility] Physician GroupComment on above:Performed By: #### MG, CBC, CMP ####[place] [address] [place] Neutrophils (Bld) [#/Vol]10.8 10*3/uLHigh1.8-7.7The [facility] Comment on above:Performed By: #### MG, CBC, CMP ####[place] [address] USANeutrophils/100 WBC (Bld)79.0 %Normal. The [facility] Physician GroupComment on above:Performed By: #### MG, CBC, CMP ####[place] [id number] USANRBC% 0.1 /100{WBC}Normal0-0.5The [facility] Physician GroupComment on above:Performed By: #### MG, CBC, CMP ####[place] [address] USAPlatelet mean volume (Bld) [Entitic vol]9.0 fLNormal 6.3-10.7The [facility] Physician GroupComment on above:Performed By: #### MG, CBC, CMP ####[place] [address] USAPlatelets (Bld) [#/Vol]317 10*3/bNAvasvr832-200Ddx [facility] Phys[facility] Comment on above:Performed By: #### MG, CBC, CMP ####[place] [address] USARBC (Bld) [#/Vol]3.26 10*6/uLLow 3.60-5.00The [facility] Physician GroupComment on above:Performed By: #### MG, CBC, CMP ####[place] [address] USAWBC (Bld) [#/Vol]13.6 10*3/uLHigh3.8-11.6The [facility] Physician GroupComment on above:Performed By: #### MG, CBC, CMP ####[place] [address] USAComprehensive Metabolic Panelon 02-26-2025 Albumin [Mass/Vol]3.2 g/dLLow3.5-5.7The [facility] Physician GroupComment on above:Performed By: #### MG, CBC, CMP ####[address] [address] USAAlbumin/Globulin [Mass ratio]0.8 {ratio}Normal The [facility] Physician GroupComment on above:Performed By: #### MG, CBC, CMP ####[address] [address] USAALP [Catalytic activity/Vol]61 U/RDcdowh82-631Bvn [facility] Physician GroupComment on above:Performed By: #### MG, CBC, CMP ####[address] [address] USAALT [Catalytic activity/Vol]U/LLow7-52The [facility] Physician GroupComment on above:Performed By: #### MG, CBC, CMP ####[address] [address] USAAnion gap [Moles/Vol]15.9 mmol/LHigh6.0-15.0The [facility] Physician GroupComment on above:Performed By: #### MG, CBC, CMP ####[address] [address] USAAST [Catalytic activity/Vol]10 U/FEsv47-57Iak [facility] Physician GroupComment on above:Performed By: #### MG, CBC, CMP ####[address] [address] [place] Bilirubin [Mass/Vol]0.3 mg/dLNormal0.3-1.0The [facility] Physician GroupComment on above:Performed By: #### MG, CBC, CMP ####[address] [address] USACalcium [Mass/Vol]8.2 mg/dLLow8.6-10.3The [facility] Physician GroupComment on above:Performed By: #### MG, CBC, CMP ####[address] [address] [place] Chloride [Moles/Vol]96 mmol/NFno66-828Zuz [facility] Physician GroupComment on above:Performed By: #### MG, CBC, CMP ####[place] [address] [place] [address] USACO2 [Moles/Vol]26.6 mmol/XSljzyh14.0-31.0The [facility] Physician GroupComment on above:Performed By: #### MG, CBC, CMP ####[place] [address] [place] Creatinine [Mass/Vol]4.38 mg/dLSignificant change up0.60-1.20The [facility] Physician GroupComment on above:Performed By: #### MG, CBC, CMP ####[place] [address] USACreatinine Clr Calc Bdizigtb34.16NoNovant Health Ballantyne Medical Center Physician [facility] Community HospitalComment on above:Performed By: #### MG, CBC, CMP ####[place] [address] USAEstimated GFR11.375 mL/MinNoNovant Health Ballantyne Medical Center Physician [facility] HospitalComment on above:Performed By: #### MG, CBC, CMP ####[place] [address] USAGlobulin (S) [Mass/Vol]3.8 g/dLNoNovant Health Ballantyne Medical Center Physician [facility] HospitalComment on above:Performed By: #### MG, CBC, CMP ####[place] [address] USAGlucose [Mass/Vol]151 mg/zOYywv18-103Wwo [facility] Physician GroupComment on above: Result Comment: Random Glucose Reference Range is dependent on time and content of last meal. Glucose of more than 200 mg/dL in a nonstressed, ambulatory subject supports the diagnosis of Diabetes Mellitus. ADA recommended reference rangePerformed By: #### MG, CBC, CMP ####[place] [address] USAPotassium [Moles/Vol]3.5 mmol/LNormal3.5-5.1 The [facility] Physician GroupComment on above:Performed By: #### MG, CBC, CMP ####[place] [address] USAProtein [Mass/Vol]7.0 g/dLNormal6.4-8.9[facility] Physician GroupComment on above: Performed By: #### MG, CBC, CMP ####[address] [address] USASodium [Moles/Vol]135 mmol/UHxv997-181Opg [facility] Physician GroupComment on above:Performed By: #### MG, CBC, CMP ####[place] [id number] USAUrea nitrogen [Mass/Vol]29 mg/dLHigh7-[facility] Physician GroupComment on above: Performed By: #### MG, CBC, CMP ####[place] [address] [place] [address] USAGlucose Poct Glucometerson 08-12-9559Lesuzgt [Mass/Vol]219 mg/dLNoNovant Health Ballantyne Medical Center Physician [facility] HospitalComment on above:Result Comment: Random Glucose Reference Range is dependent on time and content of last meal. Glucose of more than 200 mg/dL in a nonstressed, ambulatory subject supports the diagnosis of Diabetes Mellitus.PERFORMED BY:[address] [place], [place] [phone] MEDICAL DIRECTORKEMAL ACKERMAN M.D.Performed By: #### GLULS ####Point of Care testing,Glucose [Mass/Vol]213 mg/dLOrlando Health Winnie [facility] for [facility] Physician [facility] Community HospitalComment on above:Result Comment: Random Glucose Reference Range is dependent on time and content of last meal. Glucose of more than 200 mg/dL in a nonstressed, ambulatory subject supports the diagnosis of Diabetes Mellitus.PERFORMED BY:[address] [place], [place] [phone] MEDICAL DIRECTORKEMAL ACKERMAN M.D. Performed By: #### GLULS ####Point of Care testing,Glucose [Mass/Vol]179 mg/dL NormalAdventhealth Kissimmee Physician GroupComment on above:Result Comment: Random Glucose Reference Range is dependent on time and content of last meal. Glucose of more than 200 mg/dL in a nonstressed, ambulatory subject supports the diagnosis of Diabetes Mellitus.PERFORMED BY:[place] [address] [place], [place] [phone] MEDICAL DIRECTORKEMAL ACKERMAN M.D.Performed By: #### GLULS ####Point of Care testing,Glucose [Mass/Vol]159 mg/dLNormalThe [facility] Physician GroupComment on above:Result Comment: Random Glucose Reference Range is dependent on time and content of last meal. Glucose of more than 200 mg/dL in a nonstressed, ambulatory subject supports the diagnosis of Diabetes Mellitus.PERFORMED BY:[place] [address] [place], [place] [phone] MEDICAL DIRECTORKEMAL ACKERMAN M.D. Performed By: #### GLULS ####Point of Care testing,Magnesiumon 02-26-2025 Magnesium [Mass/Vol]1.8 mg/dLLow1.9-2.7The [facility] Physician GroupComment on above:Result Comment: PERFORMED BY:[address] [place], [place] [phone] MEDICAL DIRECTORKEMAL FLORES M.D.Performed By: #### MG, CBC, CMP ####[address] [address] USAComplete Blood Count Auto Diffon [id number] (Bld) [#/Vol]0.2 10*3/uLNormal0.0-0.2The [facility] Physician GroupComment on above:Result Comment: PERFORMED BY:[address] [place], [place] [phone] MEDICAL DIRECTORKEMAL ACKERMAN M.D.Performed By: #### CMP, PHOS, MG, CBC ####[address] [address] [facility] Basophils/100 WBC (Bld)1.2 %Normal.The [facility] Physician GroupComment on above:Performed By: #### CMP, PHOS, MG, CBC ####[place] [address] USAEosinophils (Bld) [#/Vol]0.4 10*3/uL Normal0.0-0.45The [facility] Physician GroupComment on above:Performed By: #### CMP, PHOS, MG, CBC ####[place] [address] USAEosinophils/100 WBC (Bld)2.9 %Normal.The [facility] Comment on above:Performed By: #### CMP, PHOS, MG, CBC ####[place] [address] USAErythrocyte distribution width (RBC) [Ratio]14.6 %Jasrwk06.9-15.3The [facility] Physician GroupComment on above:Performed By: #### CMP, PHOS, MG, CBC ####[place] [address] USAHematocrit (Bld) [Volume fraction]26.7 %Low34.0-46.4The [facility] Physician GroupComment on above:Performed By: #### CMP, PHOS, MG, CBC ####[place] [address] USAHemoglobin (Bld) [Mass/Vol]8.9 g/dLLow11.8-15.4The [facility] Physician GroupComment on above:Performed By: #### CMP, PHOS, MG, CBC ####[place] [address] [place] Lymphocytes (Bld) [#/Vol]1.0 10*3/uLNormal1.00-4.8The [facility] Comment on above:Performed By: #### CMP, PHOS, MG, CBC ####[place] [address] USALymphocytes/100 WBC (Bld)6.8 % Normal.The [facility] Physician GroupComment on above:Performed By: #### CMP, PHOS, MG, CBC ####[address] (RBC) [Entitic mass]28.0 sxTddouv15.7-34.3The [facility] Physician GroupComment on above:Performed By: #### CMP, PHOS, MG, CBC ####[address] (RBC) [Entitic vol]84.1 eFMfmfxm31-726Efk [facility] Physician GroupComment on above:Performed By: #### CMP, PHOS, MG, CBC ####[place] [address] USAMean Corpuscular HGB Conc33.3 g/dBUvzagu77.0-35.0The [facility] Physician GroupComment on above:Performed By: #### CMP, PHOS, MG, CBC ####[place] [address] [place] Monocytes (Bld) [#/Vol]1.0 10*3/uLHigh0.0-0.8The [facility] Comment on above:Performed By: #### CMP, PHOS, MG, CBC ####[place] [address] USAMonocytes/100 WBC (Bld)7.2 % Normal.The [facility] Physician GroupComment on above:Performed By: #### CMP, PHOS, MG, CBC ####[place] [address] USANeutrophils (Bld) [#/Vol]11.4 10*3/uLHigh1.8-7.7The [facility] Physician GroupComment on above:Performed By: #### CMP, PHOS, MG, CBC ####[place] [address] USANeutrophils/100 WBC (Bld)81.9 %Normal.The [facility] Physician GroupComment on above:Performed By: #### CMP, PHOS, MG, CBC ####[address] [address] USANRBC%0.1 /100{WBC}Normal0-0.5The [facility] Physician GroupComment on above:Performed By: #### CMP, PHOS, MG, CBC ####[place] [address] USAPlatelet mean volume (Bld) [Entitic vol]9.0 fLNormal6.3-10.7The [facility] Physician GroupComment on above:Performed By: #### CMP, PHOS, MG, CBC ####[place] [address] USAPlatelets (Bld) [#/Vol]349 10*3/uL Qswrog258-931Koq [facility] Physician GroupComment on above:Performed By: #### CMP, PHOS, MG, CBC ####[place] [address] USARBC (Bld) [#/Vol]3.18 10*6/uLLow3.60-5.00The [facility] Physician GroupComment on above:Performed By: #### CMP, PHOS, MG, CBC ####[place] [address] USAWBC (Bld) [#/Vol]14.0 10*3/uLHigh3.8-11.6The [facility] Physician GroupComment on above:Performed By: #### CMP, PHOS, MG, CBC ####[place] [address] USAComprehensive Metabolic Panelon 32-63-0533Bkghtty [Mass/Vol]3.4 g/dLLow3.5-5.7The [facility] Physician GroupComment on above: Performed By: #### CMP, PHOS, MG, CBC ####[place] [address] USAAlbumin/Globulin [Mass ratio]0.9 {ratio}Normal The [facility] Physician GroupComment on above:Performed By: #### CMP, PHOS, MG, CBC ####[place] [address] USAALP [Catalytic activity/Vol]64 U/RTyonns11-166Tix [facility] Physician GroupComment on above:Performed By: #### CMP, PHOS, MG, CBC ####[address] [address] USAALT [Catalytic activity/Vol]3 U/LLow 7-52The [facility] Physician GroupComment on above:Performed By: #### CMP, PHOS, MG, CBC ####[place] [id number] USAAnion gap [Moles/Vol]22.0 mmol/LHigh6.0-15.0The [facility] Comment on above:Performed By: #### CMP, PHOS, MG, CBC ####[place] [address] USAAST [Catalytic activity/Vol]10 U/TXdr20-46Rus [facility] Physician GroupComment on above:Performed By: #### CMP, PHOS, MG, CBC ####[place] [id number] USABilirubin [Mass/Vol]0.3 mg/dLNormal0.3-1.0The [facility] Comment on above:Performed By: #### CMP, PHOS, MG, CBC ####[address] [address] USACalcium [Mass/Vol]8.0 mg/dLLow 8.6-10.3The [facility] Physician GroupComment on above:Performed By: #### CMP, PHOS, MG, CBC ####[address] [address] USAChloride [Moles/Vol]100 mmol/SDbmcxm66-936Lvy [facility] Comment on above:Performed By: #### CMP, PHOS, MG, CBC ####[address] [address] USACO2 [Moles/Vol]20.8 mmol/LLow 21.0-31.0The [facility] Physician GroupComment on above:Performed By: #### CMP, PHOS, MG, CBC ####[facility] [place] [address] USACreatinine [Mass/Vol]7.13 mg/dLSignificant change up0.60-1.20The [facility] Physician GroupComment on above:Performed By: #### CMP, PHOS, MG, CBC ####[address] [address] [place] [address] [place] Creatinine Clr Calc Pharmacy8.93NoNov[facility] Physician GroupComment on above:Performed By: #### CMP, PHOS, MG, CBC ####[address] [address] [place] [address] USAEstimated GFR6.339 mL/MinNoNovant Health Ballant[facility] Center Physician [facility] HospitalComment on above:Performed By: #### CMP, PHOS, MG, CBC ####[place] [address] [place] Globulin (S) [Mass/Vol]3.7 g/dLNoNovant Health [facility]ant[facility] Center Physician GroupComment on above:Performed By: #### CMP, PHOS, MG, CBC ####[place] [address] USAGlucose [Mass/Vol]118 mg/aEUnmc26-289 The [facility] Physician GroupComment on above:Result Comment: Random Glucose Reference Range is dependent on time and content of last meal. Glucose of more than 200 mg/dL in a nonstressed, ambulatory subject supports the diagnosis of Diabetes Mellitus. ADA recommended reference rangePerformed By: #### CMP, PHOS, MG, CBC ####[place] [address] USAPotassium [Moles/Vol]3.8 mmol/LNormal3.5-5.1The [facility] Physician [facility] Comment on above:Performed By: #### CMP, PHOS, MG, CBC ####[place] [address] USAProtein [Mass/Vol]7.1 g/dL Normal6.4-8.9The [facility] Physician GroupComment on above:Performed By: #### CMP, PHOS, MG, CBC ####[facility] [address] [place] [address] USASodium [Moles/Vol]139 mmol/UAmvnrq562-215Stb [facility] Physician GroupComment on above:Performed By: #### CMP, PHOS, MG, CBC ####[facility] [address] [place] [address] USAUrea nitrogen [Mass/Vol]57 mg/dLSignificant change upe [facility] Physician GroupComment on above:Performed By: #### CMP, PHOS, MG, CBC ####[facility] [address] [place] [address] USAGlucose Poct Glucometerson 02-25-2025 Glucose [Mass/Vol]208 mg/dLNormJay Hospital Physician GroupComment on above: Result Comment: Random Glucose Reference Range is dependent on time and content of last meal. Glucose of more than 200 mg/dL in a nonstressed, ambulatory subject supports the diagnosis of Diabetes Mellitus.PERFORMED BY:[address] [place], [place] [phone] MEDICAL DIRECTORKEMAL ACKERMAN M.D.Performed By: #### GLULS ####Point of Care testing,Glucose [Mass/Vol]245 mg/dLNoNovant Health [facility] Physician Group Comment on above:Result Comment: Random Glucose Reference Range is dependent on time and content of last meal. Glucose of more than 200 mg/dL in a nonstressed, ambulatory subject supports the diagnosis of Diabetes Mellitus.PERFORMED BY:[address] [place], [place] [phone] MEDICAL DIRECTORKEMAL ACKERMAN M.D. Performed By: #### GLULS ####Point of Care testing,Glucose [Mass/Vol]128 mg/dL NormalThe [facility] Physician GroupComment on above:Result Comment: Random Glucose Reference Range is dependent on time and content of last meal. Glucose of more than 200 mg/dL in a nonstressed, ambulatory subject supports the diagnosis of Diabetes Mellitus.PERFORMED BY:[address] [place], [place] [phone] MEDICAL DIRECTORKEMAL ACKERMAN M.D.Performed By: #### GLULS ####Point of Care testing,Chhspte0Bhr2: Cleaned [facility] Physician [facility] HospitalComment on above:Result Comment: PERFORMED BY:[address] [place]ieAM[address] [place], [place] [phone] MEDICAL DIRECTORKEMAL FLORES M.D.Performed By: #### GLULS ####Point of Care testing,Glucose [Mass/Vol]124 mg/dLNoNovant Health [facility] Center Physician GroupComment on above:Result Comment: Random Glucose Reference Range is dependent on time and content of last meal. Glucose of more than 200 mg/dL in a nonstressed, ambulatory subject supports the diagnosis of Diabetes Mellitus.Performed By: #### GLULS ####Point of Care testing,Magnesiumon 29-90-3331Spvnyfshh [Mass/Vol]1.8 mg/dLLow1.9-2.7The [facility] Physician [facility] HospitalComment on above:Result Comment: PERFORMED BY:[address] [place] [place], [place] [phone] MEDICAL DIRECTORKEMAL ACKERMAN M.D.Performed By: #### CMP, PHOS, MG, CBC ####[address] [address] USANo Panel InformationOrdered By: Becky Nash on 86-44-4414Twumajx Glucose CommentGlu2: cleaned [facility]tering Health MiamisburgPhosphoruson 94-19-2905Xmhcystjo [Mass/Vol]6.5 mg/dLHigh2.5-4.5The [facility] Comment on above:Performed By: #### CMP, PHOS, MG, CBC ####[address] [address] USAABO/Rh Retypeon 02-24-2025 ABO/RH Recheck ResultPositiveNoNovant Health [facility]ant[facility] Center Physician [facility] HospitalComment on above:Result Comment: PERFORMED BY:[address], [place] [phone] MEDICAL DIRECTORKEMAL FLORES M.D.Aerobic Cultureon [id number] CultureNoNovant Health [facility] Center Physician GroupComment on above:Performed By: #### AERC ####[address] [address] USAAerobic cultureOrdered By: Isai Rodrigues on 57-43-9314Oumpvtcv identified Aer cx Nom (Unsp spec)Escherichia coliAbBarberton Citizens HospitalAnaeroc cultureOrdered By: Isai Rodrigues on 31-81-8925Sxmmsfgl identified Anaer cx Nom (Unsp spec)Anaerobic cultureMercy Health West HospitalBacteria identified Anaer cx Nom (Unsp spec)No Anaerobes Isolated 3 DaysMercy Health West HospitalBacteria identified Aer cx Nom (Unsp spec)Ordered By: Isai Rodrigues on 02-24-2025 Escherichia coliEscherichia coliWooster Community Hospital Complete Blood Count Auto Diffon [id number] (Bld) [#/Vol]0.1 10*3/uL Normal0.0-0.2The [facility] Physician GroupComment on above:Result Comment: PERFORMED BY:[address] [place], [place] [phone] MEDICAL DIRECTORKEMAL ACKERMAN M.D. Performed By: #### PHOS, MG, CBC, CMP ####[address] [address] USABasophils/100 WBC (Bld)1.0 %Normal.The [facility] Physician GroupComment on above:Performed By: #### PHOS, MG, CBC, CMP ####[address] [address] [place] Eosinophils (Bld) [#/Vol]0.3 10*3/uLNormal0.0-0.45The [facility] Comment on above:Performed By: #### PHOS, MG, CBC, CMP ####[place] [address] USAEosinophils/100 WBC (Bld)2.9 % Normal.The [facility] Physician GroupComment on above:Performed By: #### PHOS, MG, CBC, CMP ####[place] [address] USAErythrocyte distribution width (RBC) [Ratio]14.6 %Mwjqoj19.9-15.3The [facility] Physician GroupComment on above:Performed By: #### PHOS, MG, CBC, CMP ####[place] [address] [place] Hematocrit (Bld) [Volume fraction]20.6 %Low34.0-46.4The [facility] Physician GroupComment on above:Performed By: #### PHOS, MG, CBC, CMP ####[place] [address] USAHemoglobin (Bld) [Mass/Vol]6.9 g/dLLow11.8-15.4The [facility] Physician GroupComment on above: Performed By: #### PHOS, MG, CBC, CMP ####[place] [address] USALymphocytes (Bld) [#/Vol]1.1 10*3/uLNormal 1.00-4.8The [facility] Physician GroupComment on above:Performed By: #### PHOS, MG, CBC, CMP ####[place] [address] USALymphocytes/100 WBC (Bld)10.2 %Normal.[facility] Comment on above:Performed By: #### PHOS, MG, CBC, CMP ####[place] [address] USAMCH (RBC) [Entitic mass]27.9 hvJapkhd67.7-34.3The [facility] Physician GroupComment on above:Performed By: #### PHOS, MG, CBC, CMP ####[address] [address] USAMCV (RBC) [Entitic vol]83.2 hKIjywmx89-233Jkn [facility] Physician GroupComment on above:Performed By: #### PHOS, MG, CBC, CMP ####[place] [address] USAMean Corpuscular HGB Conc33.5 g/rDRqzohl27.0-35.0The [facility] Physician GroupComment on above:Performed By: #### PHOS, MG, CBC, CMP ####[place] [address] USAMonocytes (Bld) [#/Vol]1.2 10*3/uLHigh 0.0-0.8The [facility] Physician GroupComment on above:Performed By: #### PHOS, MG, CBC, CMP ####[place] [address] USAMonocytes/100 WBC (Bld)11.3 %Normal.[facility] Comment on above:Performed By: #### PHOS, MG, CBC, CMP ####[place] [address] USANeutrophils (Bld) [#/Vol]8.0 10*3/uLHigh1.8-7.7The [facility] Physician GroupComment on above:Performed By: #### PHOS, MG, CBC, CMP ####[place] [address] USANeutrophils/100 WBC (Bld)74.6 %Normal.The [facility] Physician GroupComment on above:Performed By: #### PHOS, MG, CBC, CMP ####[place] [address] USANRBC% 0.2 /100{WBC}Normal0-0.5The [facility] Physician GroupComment on above:Performed By: #### PHOS, MG, CBC, CMP ####[place] [address] USAPlatelet mean volume (Bld) [Entitic vol]9.1 fLNormal 6.3-10.7The [facility] Physician GroupComment on above:Performed By: #### PHOS, MG, CBC, CMP ####[place] [address] USAPlatelets (Bld) [#/Vol]318 10*3/fBWzyakk911-745Cod [facility] Physician GroupComment on above:Performed By: #### PHOS, MG, CBC, CMP ####[place] [address] USARBC (Bld) [#/Vol]2.47 10*6/uLLow3.60-5.00The [facility] Physician GroupComment on above:Performed By: #### PHOS, MG, CBC, CMP ####[place] [address] USAWBC (Bld) [#/Vol]10.7 10*3/uLNormal3.8-11.6The [facility] Physician GroupComment on above:Performed By: #### PHOS, MG, CBC, CMP ####[address] Comprehensive Metabolic Panelon 58-12-1252Mqpnsln [Mass/Vol]3.1 g/dLLow3.5-5.7 The [facility] Physician GroupComment on above:Performed By: #### PHOS, MG, CBC, CMP ####[address] Albumin/Globulin [Mass ratio]0.9 {ratio}NormalThe [facility] Comment on above:Performed By: #### PHOS, MG, CBC, CMP ####[place] [address] USAALP [Catalytic activity/Vol]59 U/RVfrffp88-959Rlm [facility] GroupComment on above:Performed By: #### PHOS, MG, CBC, CMP ####[place] [address] USAALT [Catalytic activity/Vol]5 U/LLow7-52The [facility] Physician GroupComment on above:Performed By: #### PHOS, MG, CBC, CMP ####[place] [address] USAAnion gap [Moles/Vol] 25.3 mmol/LHigh6.0-15.0The [facility] Physician GroupComment on above:Performed By: #### PHOS, MG, CBC, CMP ####[place] [address] USAAST [Catalytic activity/Vol]8 U/ZWna23-43Deu [facility] GroupComment on above:Performed By: #### PHOS, MG, CBC, CMP ####[place] [address] [place] Bilirubin [Mass/Vol]0.2 mg/dLLow0.3-1.0The [facility]ician GroupComment on above:Performed By: #### PHOS, MG, CBC, CMP ####[place] [address] USACalcium [Mass/Vol]7.8 mg/dLLow8.6-10.3 The [facility] Physician GroupComment on above:Performed By: #### PHOS, MG, CBC, CMP ####[place] [address] [place] Chloride [Moles/Vol]106 mmol/BQbcqff98-502Jkr [facility] GroupComment on above:Performed By: #### PHOS, MG, CBC, CMP ####[place] [address] USACO2 [Moles/Vol]15.3 mmol/LLow21.0-31.0 The [facility] Physician GroupComment on above:Performed By: #### PHOS, MG, CBC, CMP ####[place] [address] [place] Creatinine [Mass/Vol]11.38 mg/dLHigh0.60-1.20[facility] Comment on above:Performed By: #### PHOS, MG, CBC, CMP ####[place] [address] USACreatinine Clr Calc Pharmacy 5.57NormJay [facility] HospitalComment on above:Performed By: #### PHOS, MG, CBC, CMP ####[place] [address] USAEstimated GFR3.617 mL/MinNoBrecksville VA / Crille HospitalComment on above:Performed By: #### PHOS, MG, CBC, CMP ####[place] [address] USAGlobulin (S) [Mass/Vol]3.3 g/dLNormal [facility] HospitalComment on above:Performed By: #### PHOS, MG, CBC, CMP ####[place] [address] [place] Glucose [Mass/Vol]119 mg/uILbii53-417Wvw [facility] HospitalComment on above:Result Comment: Random Glucose Reference Range is dependent on time and content of last meal. Glucose of more than 200 mg/dL in a nonstressed, ambulatory subject supports the diagnosis of Diabetes Mellitus. ADA recommended reference rangePerformed By: #### PHOS, MG, CBC, CMP ####[place] [address] USAPotassium [Moles/Vol]3.6 mmol/LNormal3.5-5.1[facility] HospitalComment on above:Performed By: #### PHOS, MG, CBC, CMP ####[place] [address] USAProtein [Mass/Vol]6.4 g/dLNormal6.4-8.9[facility] HospitalComment on above:Performed By: #### PHOS, MG, CBC, CMP ####[place] [address] USASodium [Moles/Vol]143 mmol/LSignificant change knzk851-372Yzy [facility] Comment on above:Performed By: #### PHOS, MG, CBC, CMP ####[place] [address] USAUrea nitrogen [Mass/Vol]108 mg/dLHigh7-25The [facility]ician GroupComment on above:Performed By: #### PHOS, MG, CBC, CMP ####[place] [place] [address] USAECG 12 lead ECGon 62-96-5095SUW 12 lead ECGNormalThe [facility] Physician GroupFree K+L LT Chains, Qn, Son 75-64-1466Fmcl [place] Light Chains, S 133.5 mg/LHigh3.3-19.4The [facility] Physician GroupComment on above:Performed By: #### KAPPA ####[facility] ,Free Lambda Light Chains, S71.7 mg/L High5.7-26.3The [facility] Physician GroupComment on above:Performed By: #### KAPPA ####[facility] ,[place]/Lambda Ratio, S1.48Mkmk5.26-1.65The [facility] Physician GroupComment on above:Result Comment: Performed at: - [facility] [id number] Community Health Nurse Supervisor: Louis Hansen PhD, Phone: [phone] BY:[address] [place], [place] [phone] MEDICAL DIRECTORMOCINDY ACKERMAN M.D.Performed By: #### KAPPA ####[facility] ,Glucose Poct Glucometerson 76-71-8634Pszbbof0Vht4: Cleaned Meter NormalThe [facility] Medical CenterComment on above:Result Comment: PERFORMED BY:[address] [place], [place] [phone] MEDICAL DIRECTORKEMAL ACKERMAN M.D.Performed By: #### GLULS ####Point of Care testing,Glucose [Mass/Vol]132 mg/dLNoNovant Health Ballantyne [facility] Center Physician [facility] HospitalComment on above:Result Comment: Random Glucose Reference Range is dependent on time and content of last meal. Glucose of more than 200 mg/dL in a nonstressed, ambulatory subject supports the diagnosis of Diabetes Mellitus. Performed By: #### GLULS ####Point of Care testing,Glucose [Mass/Vol]149 mg/dL [facility] Physician GroupComment on above:Result Comment: Random Glucose Reference Range is dependent on time and content of last meal. Glucose of more than 200 mg/dL in a nonstressed, ambulatory subject supports the diagnosis of Diabetes Mellitus.PERFORMED BY:[address] [place], [place] [phone] MEDICAL DIRECTORKEMAL ACKERMAN M.D.Performed By: #### GLULS ####Point of Care testing,Nerkcdf4Sfz2: Cleaned MeterNoNovant Health Ballantyne Medical Center Physician GroupComment on above:Result Comment: PERFORMED BY:[address] [address] [place], [place] [phone] MEDICAL DIRECTORKEMAL FLORES M.D.Performed By: #### GLULS ####Point of Care testing,Glucose [Mass/Vol]134 mg/dLOr[facility] Health [facility] Physician GroupComment on above:Result Comment: Random Glucose Reference Range is dependent on time and content of last meal. Glucose of more than 200 mg/dL in a nonstressed, ambulatory subject supports the diagnosis of Diabetes Mellitus.Performed By: #### GLULS ####Point of Care testing,Glucose [Mass/Vol]135 mg/dLOr[facility] Health [facility] Comment on above:Result Comment: Random Glucose Reference Range is dependent on time and content of last meal. Glucose of more than 200 mg/dL in a nonstressed, ambulatory subject supports the diagnosis of Diabetes Mellitus.PERFORMED BY:[address] [place], [place] [phone] MEDICAL DIRECTORKEMAL ACKERMAN M.D. Performed By: #### GLULS ####Point of Care testing,Gram stain microscopyOrdered By: Isia Rodrigues on 75-36-4864Ephwbhlgosj observation Gram stain Nom (Unsp spec) Gram stain microscopyMercy Health West HospitalMicroscopic observation Gram stain Nom (Unsp spec)[facility] HospitalHepatitis A virus IgM antibody assayOrdered By: Rodo Hopkins on 82-75-2916Omfnpabhv A IgM Antibody NegativeNegativeMercy Health West HospitalComment on above:A negative anti-HAV IgM result suggests no recent orcurrent HAV infection.Hepatitis Acute Panelon 80-26-4904HKjOc ScreenNegativeNormalNegativeThe [facility] Physician GroupComment on above:Performed By: #### HBCAB, HEPACUTE, HBSAB ####[facility] ,Hepatitis A Antibody IgMNegativeNormalNegativeThe [facility] Physician GroupComment on above:Result Comment: A negative anti-HAV IgM result suggests no recent or current HAV infection.Performed By: #### HBCAB, HEPACUTE, HBSAB ####[facility] ,Hepatitis B Core Antibody IgMNegativeNormal NegativeThe [facility] Physician GroupComment on above:Performed By: #### HBCAB, HEPACUTE, HBSAB ####[facility] ,Hepatitis C Virus AntibodyNon-Reactive NormalNon ReactiveThe [facility] Physician GroupComment on above:Performed By: #### HBCAB, HEPACUTE, HBSAB ####[facility] ,Interpretation Hepatitis C CommentNormal.The [facility]ician GroupComment on above:Result Comment: Not infected with HCV unless early or acute infection is suspected (which may be del ayed in an immunocompromised individual), or other evidence exists to indicate HCV infection.Performed By: #### HBCAB, HEPACUTE, HBSAB ####[facility] ,Hepatitis B Core Antibodyon 85-10-2510Cwrulpgai B Core Antibody NegativeNormalNegativeThe [facility] Physician GroupComment on above:Result Comment: Performed at: [facility] [id number] Community Health Nurse Supervisor: Louis Hansen PhD, Phone: [phone] BY:[address] [address] [place], [place] [phone] MEDICAL DIRECTORMOCINDY ACKERMAN M.D. Performed By: #### HBCAB, HEPACUTE, HBSAB ####[facility] ,Hepatitis B Surface Antibodyon 65-19-8015Cymtafxpg B Surface AntibodyNon-ReactiveNormal.The [facility] GroupComment on above:Result Comment: Non Reactive: Not immune to HBV infection. Equivocal: Unable to determine if anti-HBs is present at levels consistent with immunity. Reactive: Anti-HBs concentration detected at greater than 10 mIU/mL. Individual is considered to be immune to infection with HBV.Performed By: #### HBCAB, HEPACUTE, HBSAB ####[facility] , Hepatitis B virus core IgM antibody assayOrdered By: Rodo Hopkins on 02-24-2025 Hepatitis B Core IgM AntibodyNegativeNegativeMercy Health West Hospital Hepatitis B virus core antibody assayOrdered By: Rodo Hopkins on 02-24-2025 Hepatitis B Core Total AntibodyNegativeNegativeMercy Health West Hospital Comment on above:Performed at: - [facility] [address] Director: Louis Hansen PhD, Phone: [phone] C virus IgG Ab [Presence] in Serum or Plasma by ImmunoassayOrdered By: Rodo Hopkins on 62-71-4490SLT IgG IA QlHepatitis C virus IgG Ab [Presence] in Serum or Plasma by ImmunoassayNon ReactiveMercy Health West HospitalHCV IgG IA Ql Non-ReactiveNon ReactiveMercy Health West HospitalLon 09-04-6092XUhgcjx The [facility] Physician GroupMagnesiumon 43-25-9615Gejwlwzxh [Mass/Vol]1.7 mg/dL Low1.9-2.7The [facility] HospitalComment on above:Result Comment: PERFORMED BY:[facility] [place], [place] [phone] MEDICAL DIRECTORKEMAL ACKERMAN M.D. Performed By: #### PHOS, MG, CBC, CMP ####[facility] [address] [place] [address] USANo Panel InformationOrdered By: Rodo Hopkins on 79-29-2574Icjotrclc C InterpretationComment.[facility] Comment on above:Not infected with HCV unless early or acute infection issuspected (which may be delayed in an immunocompromisedindividual), or other evidence exists to indicate HCVinfection.Phosphoruson 11-19-2961Zuyvcjjer [Mass/Vol]10.0 mg/dLHigh2.5-4.5The [facility] Physician GroupComment on above: Performed By: #### PHOS, MG, CBC, CMP ####[facility] [address] [place] [address] USAQuantitative serum or plasma hepatitis C virus RNA assay by real-time PCR (units/voluOrdered By: Rodo Hopkins on 76-53-7361WZL RNA CIPRIANO+probe QnHepatitis C virus RNA [Units/volume] (viral load) in Serum or Plasma by CIPRIANO with [facility] CenterHCV RNA CIPRIANO+probe QnN/A Wayne Hospitalerum free kappa light chain measurementOrdered By: Rodo Hopkins on 05-85-7446Kiogpsiynueezf light chains.kappa.free (S) [Mass/Vol]Immunoglobulin light chains.kappa.free [Mass/volume] in SerumHigh 3.3-19.4FProMedica Defiance Regional HospitalImmunoglobulin light chains.kappa.free (S) [Mass/Vol]133.5 mg/LHigh3.3-19.4FMartin Memorial Hospitalerum hepatitis B virus surface antibody detectionOrdered By: Rodo Hopkins on 01-82-3205KDZ surface Ab Ql (S)Hepatitis B virus surface Ab [Presence] in Serum. [facility] HospitalComment on above:Non Reactive: Not immune to HBV infection. Equivocal: Unable to determine if anti-HBs is present atlevels consistent with immunity. Reactive: Anti-HBs concentration detected at greater than 10 mIU/mL. Individual is considered to be immune to infection with HBV.HBV surface Ab Ql (S)Non-Reactive.[facility] HospitalComment on above: Non Reactive: Not immune to HBV infection. Equivocal: Unable to determine if anti-HBs is present atlevels consistent with immunity. Reactive: Anti-HBs concentration detected at greater than 10 mIU/mL. Individual is considered to be immune to infection with HBV.Serum immunoglobulin free kappa light chains/immunoglobulin free lambda light chainsOrdered By: Rodo Hopkins on 92-73-6138Hejxhxdvfiwdnd light chains.kappa.free/Immunoglobulin light chains.lambda.free (S) [Mass ratio]Immunoglobulin light chains.kappa.free/Immunoglobulin light chains.lambda.free [MassHigh0.26-1.65 [facility] HospitalComment on above:Performed at: [facility] [id number] Director: Louis Hansen PhD, Phone: [phone] light chains.kappa.free/Immunoglobulin light chains.lambda.free (S) [Mass ratio]1.82Jzog7.26-1.65[facility] HospitalComment on above:Performed at: [facility] [id number] Director: Louis Hansen PhD, Phone: [phone] or plasma hepatitis B virus surface antigen detection by immunoassayOrdered By: Rodo Hopkins on 17-35-5807NTO surface Ag IA QlHepatitis B virus surface Ag [Presence] in Serum or Plasma by ImmunoassayNegProMedica Bay Park HospitalHBV surface Ag IA QlNegativeNegChildren's Hospital for Rehabilitationerum or plasma hepatitis C virus RNA measurement by probe and target amplification m Ordered By: Rodo Hopkins on 46-75-9314ELZ RNA CIPRIANO+probe [Log units/Vol]Hepatitis C virus RNA [log units/volume] (viral load) in Serum or Plasma by CIPRIANO with [facility] HospitalHCV RNA CIPRIANO+probe [Log units/Vol]N/AFMartin Memorial Hospitalerum or plasma immunoglobulin free lambda light chains measurement (mass/volume)Ordered By: Rodo Hopkins on 21-94-1447Qmwgvbycppuinv light chains.lambda.free [Mass/Vol]Immunoglobulin light chains.lambda.free [Mass/volume] in Serum or PlasmaHigh5.7-26.3FProMedica Defiance Regional Hospital Immunoglobulin light chains.lambda.free [Mass/Vol]71.7 mg/LHigh5.7-26.3FProMedica Defiance Regional HospitalXR chest 1V portableon 62-10-1631UO chest 1V portable NormalThe [facility]ician SxjsdA1T with Estimated Average Gluon 02-23-2025 Glucose [Mass/Vol]126 mg/dLNormalThSt. Luke's [facility] Physician [facility] HospitalComment on above: Result Comment: PERFORMED BY:[address] [place], [place] [phone] MEDICAL DIRECTORKEMAL FLORES M.D.Performed By: #### RETIC, PTT, JOCELYN, LIPID, B12, FOL, A1C WTH eA, FE and TIBC, PT ####[address] [address] USAAppearance of UrineOrdered By: Lynette Dumont on 93-66-4241Zvjzrknrnm (U)Urine appearanceOhioHealth O'Bleness HospitalAppearance (U)Clear NormalOhioHealth O'Bleness HospitalComment on above:Order Comment: Name Collection Type:: Clean-Voided MidstreamPerformed By: #### ADDONUAPLUS, CUU, URTP, UEOS, UCREA, JON ####[address] [address] USABacteria [Presence] in Urine by AutomatedOrdered By: Lynette Dumont on 61-21-0361Lhnbqxnw Auto Ql (U)Bacteria [Presence] in Urine by AutomatedNone [facility] HospitalBacteria Auto Ql (U)Rare [HPF]None [facility] HospitalBasi Metabolic Panelon 24-89-5066Ybeop gap [Moles/Vol]25.2 mmol/LHigh6.0-15.0The [facility] Medical CenterComment on above:Performed By: #### BMP ####[address] [address] USACalcium [Mass/Vol]8.1 mg/dLLow8.6-10.3 The [facility] Physician GroupComment on above:Performed By: #### BMP ####[address] [address] [place] Chloride [Moles/Vol]106 mmol/WRabbvn53-691Grf [facility] HospitalComment on above:Performed By: #### BMP ####[address] [address] USACO2 [Moles/Vol]9.4 mmol/LLow21.0-31.0The [facility] Physician GroupComment on above:Performed By: #### BMP ####[address] [address] USACreatinine [Mass/Vol]11.50 mg/dLSignificant change up0.60-1.20The [facility] Physician GroupComment on above:Performed By: #### BMP ####[address] [address] USACreatinine Clr Calc Pharmacy5.47NormalThSt. Luke's [facility] Center Physician GroupComment on above:Result Comment: PERFORMED BY:[address] [place], [place] [phone] MEDICAL DIRECTORKEMAL ACKERMAN M.D.Performed By: #### BMP ####[address] [address] USAEstimated GFR3.572 mL/Min NormalThe [facility] HospitalComment on above:Performed By: #### BMP ####[address] [address] USAGlucose [Mass/Vol]133 mg/aZNqbi56-146Kaf [facility] Physician [facility] HospitalComment on above: Result Comment: Random Glucose Reference Range is dependent on time and content of last meal. Glucose of more than 200 mg/dL in a nonstressed, ambulatory subject supports the diagnosis of Diabetes Mellitus. ADA recommended reference rangePerformed By: #### BMP ####[address] [address] USAPotassium [Moles/Vol]4.6 mmol/LNormal3.5-5.1The [facility] Physician GroupComment on above:Performed By: #### BMP ####[address] [address] USASodium [Moles/Vol]136 mmol/TNczwup741-753Ssj [facility] Physician GroupComment on above:Performed By: #### BMP ####[address] [place] [address] USAUrea nitrogen [Mass/Vol]108 mg/dLHigh7-25The [facility] Physician GroupComment on above:Performed By: #### BMP ####[facility] [place] [address] USABilirubin Test strip Ql (U)Ordered By: Lynette Dumont on 56-46-3073Lqgxlhlpc Ql (U)Bilirubin.total [Presence] in Urine by Test stripNegativeMercy Health West HospitalBilirubin Ql (U)NegativeNegative [facility] HospitalBlood estimated average glucose determination by estimation from glycated hemoglobinOrdered By: Lynette Dumont on 02-23-2025 Average glucose Estimated from glycated hemoglobin (Bld) [Mass/Vol]Glucose mean value [Mass/volume] in Blood Estimated from glycated hemoglobinMercy Health West HospitalAverage glucose Estimated from glycated hemoglobin (Bld) [Mass/Vol]126 mg/dLMercy Health West HospitalC reactive protein [Mass/volume] in Serum or PlasmaOrdered By: Lynette Dumont on 49-43-6198LFN [Mass/Vol]C reactive protein [Mass/volume] in Serum or PlasmaHigh0.0-0.5 [facility] West HospitalC-Reactive Proteinon 60-53-0182O-Reactive Ghmpllz09.5 mg/dLHigh0.0-0.5The [facility] Physician GroupComment on above:Order Comment: Comment add on to previous draw if possibleResult Comment: PERFORMED BY:[address] [place], [place] [phone] MEDICAL DIRECTORKEMAL ACKERMAN M.D.Performed By: #### ESR, CRP ####[address] [place] [address] USACholesterol [Mass/volume] in Serum or PlasmaOrdered By: Lynette Dumont on 29-99-3091Hayxwzofdbe [Mass/Vol]Cholesterol [Mass/volume] in Serum or Plasma 140-200Mer[facility] Health West HospitalComment on above:Chol less than 200 mg/dl low riskChol 201-239 mg/dl borderline riskChol 240 mg/dl and greater high riskCholesterol [Mass/Vol]140 mg/qTUtwtwo468-448SqcufchxdMercy Health West HospitalComment on above:Chol less than 200 mg/dl low riskChol 201-239 mg/dl borderline riskChol 240 mg/dl and greater high riskResult Comment: Chol less than 200 mg/dl low risk Chol 201-239 mg/dl borderline risk Chol 240 mg/dland greater high riskPerformed By: #### RETIC, PTT, JOCELYN, LIPID, B12, FOL, A1C WTH eA, FE and TIBC, PT ####[facility] [address] [place] [address] USACholesterol in HDL [Mass/volume] in Serum or PlasmaOrdered By: Lynette Dumont on 30-03-8891Iaxhqbrrfbz in HDL [Mass/Vol]Serum or plasma high density lipoprotein (HDL) cholesterol sohmeoxafoz52-33TdafhkxwlMercy Health West HospitalComment on above:HDL CHOL ATP-III CLASSIFICATION Cardiovascular RiskHDL > or equal to 60 mg/dL LOWHDL < 40 mg/dL HIGHCholesterol in HDL [Mass/Vol]29 mg/rKVeksuq26-95CdyzkqlnvMercy Health West HospitalComment on above:HDL CHOL ATP- III CLASSIFICATION Cardiovascular RiskHDL > or equal to 60 mg/dL LOWHDL < 40 mg/dL HIGHResult Comment: HDL CHOL ATP-III CLASSIFICATION Cardiovascular Risk HDL > or equal to 60 mg/dL LOW HDL < 40 mg/dL HIGHPerformed By: #### RETIC, PTT, JOCELYN, LIPID, B12, FOL, A1C WTH eA, FE and TIBC, PT ####[facility] [address] [place] [address] USACholesterol in LDL Calc [Mass/Vol]Ordered By: Lynette Dumont on 69-37-8166Ynsjvlpapul in LDL [Mass/Vol] Cholesterol in LDL [Mass/volume] in Serum or Plasma by calculation0Mercy Health West HospitalComment on above:LDL ATP III CLASSIFICATIONLDL less than 100 mg/dL OptimalLDL 100-129 mg/dL Near or above kzucmloZBL854-011 mg/dL Borderline highLDL 160-189 mg/dL HighLDL greater than 189 mg/dL Very high Cholesterol in LDL [Mass/Vol]86 mg/dLMercy Health West Hospital Comment on above:LDL ATP III CLASSIFICATIONLDL less than 100 mg/dL OptimalLDL 100-129 mg/dL Near or above xogqlokRQM474-035 mg/dL Borderline highLDL 160-189 mg/dL HighLDL greater than 189 mg/dL Very highCholesterol in VLDL Calc [Mass/Vol]Ordered By: Lynette Dumont on 78-90-3569Afpduhnhnhs in VLDL [Mass/Vol] Cholesterol in VLDL [Mass/volume] in Serum or Plasma by calculationMercy Health West HospitalCholesterol in VLDL [Mass/Vol]25 mg/dLMercy Health West HospitalColor Auto (U)Ordered By: Lynette Dumont on 85-32-6623Thblv (U) Color of Urine by AutoYellowMercy Health West HospitalColor of Urine by AutoOrdered By: Lynette Dumont on 39-57-6325Htrfd (U)ColorlessNormalYellow [facility] HospitalComment on above:Order Comment: Name Collection Type:: Clean-Voided MidstreamPerformed By: #### ADDONUAPLUS, CUU, URTP, UEOS, UCREA, JON ####[address] [address] USAComplete Blood Count Auto Diffon 87-81-4689Hswuyhrvn (Bld) [#/Vol]0.1 10*3/uLNormal0.0-0.2The [facility] Physician GroupComment on above:Result Comment: PERFORMED BY:[address] [place], [place] [phone] MEDICAL DIRECTORKEMAL ACKERMAN M.D. Performed By: #### MG, CMP, CBC ####[address] [place] [address] USABasophils/100 WBC (Bld)1.1 %Normal.The [facility] Physician GroupComment on above:Performed By: #### MG, CMP, CBC ####[address] [place] [address] USAEosinophils (Bld) [#/Vol]0.4 10*3/uLNormal0.0-0.45The [facility] Physician GroupComment on above: Performed By: #### MG, CMP, CBC ####[place] [address] USAEosinophils/100 WBC (Bld)2.9 %Normal.The [facility] Physician GroupComment on above:Performed By: #### MG, CMP, CBC ####[place] [address] USAErythrocyte distribution width (RBC) [Ratio]15.0 %Lwcnjx52.9-15.3The [facility] Physician GroupComment on above:Performed By: #### MG, CMP, CBC ####[place] [address] USAHematocrit (Bld) [Volume fraction]25.6 %Low34.0-46.4The [facility] Physician GroupComment on above: Performed By: #### MG, CMP, CBC ####[place] [address] USAHemoglobin (Bld) [Mass/Vol]8.2 g/dLLow11.8-15.4The [facility] Physician GroupComment on above:Performed By: #### MG, CMP, CBC ####[place] [address] [place] Lymphocytes (Bld) [#/Vol]0.9 10*3/uLLow1.00-4.8The [facility] Comment on above:Performed By: #### MG, CMP, CBC ####[place] [address] USALymphocytes/100 WBC (Bld)7.2 %Normal. The [facility] Physician GroupComment on above:Performed By: #### MG, CMP, CBC ####[place] [address] USAMCH (RBC) [Entitic mass]27.4 cuHuksqc16.7-34.3The [facility] Physician GroupComment on above:Performed By: #### MG, CMP, CBC ####[id number] USAMCV (RBC) [Entitic vol]85.2 vVSpdtwk46-182Eub [facility] Physician GroupComment on above:Performed By: #### MG, CMP, CBC ####[place] [address] USAMean Corpuscular HGB Conc32.2 g/gSPanboq80.0-35.0The [facility] Physician GroupComment on above:Performed By: #### MG, CMP, CBC ####[place] [address] USAMonocytes (Bld) [#/Vol]1.0 10*3/uLHigh0.0-0.8 The [facility] Physician GroupComment on above:Performed By: #### MG, CMP, CBC ####[place] [address] [place] Monocytes/100 WBC (Bld)8.0 %Normal.The [facility] Physician GroupComment on above:Performed By: #### MG, CMP, CBC ####[place] [address] USANeutrophils (Bld) [#/Vol]10.5 10*3/uLHigh 1.8-7.7The [facility] Physician GroupComment on above:Performed By: #### MG, CMP, CBC ####[id number] [place] Neutrophils/100 WBC (Bld)80.8 %Normal.The [facility] Physician GroupComment on above:Performed By: #### MG, CMP, CBC ####[place] [address] USANRBC%0.0 /100{WBC}Normal0-0.5The [facility] Physician GroupComment on above:Performed By: #### MG, CMP, CBC ####[place] [address] USAPlatelet mean volume (Bld) [Entitic vol]8.5 fLNormal6.3-10.7The [facility] Physician GroupComment on above:Performed By: #### MG, CMP, CBC ####[place] [address] USAPlatelets (Bld) [#/Vol]341 10*3/uLNormal 150-450The [facility] Physician GroupComment on above:Performed By: #### MG, CMP, CBC ####[address] RBC (Bld) [#/Vol]3.00 10*6/uLLow3.60-5.00The [facility] Physician GroupComment on above:Performed By: #### MG, CMP, CBC ####[place] [address] USAWBC (Bld) [#/Vol]13.0 10*3/uLHigh3.8-11.6The [facility] Physician GroupComment on above:Performed By: #### MG, CMP, CBC ####[address] Comprehensive Metabolic Panelon 84-96-6567Qcsnewg [Mass/Vol]3.5 g/dLNormal 3.5-5.7The [facility] Physician GroupComment on above:Performed By: #### CMP ####[address] Albumin/Globulin [Mass ratio]1.0 {ratio}NormalThe [facility] Comment on above:Performed By: #### CMP ####[place] [address] USAALP [Catalytic activity/Vol]66 U/CSnixtx09-112 The [facility] Physician GroupComment on above:Performed By: #### CMP ####[place] [address] USAALT [Catalytic activity/Vol]8 U/LNormal7-52The [facility] Physician GroupComment on above:Performed By: #### CMP ####[place] [address] USAAnion gap [Moles/Vol]24.0 mmol/LHigh6.0-15.0The [facility] Physician GroupComment on above:Performed By: #### CMP ####[address] [address] USAAST [Catalytic activity/Vol]10 U/COtj94-05Uxf [facility] Physician GroupComment on above: Performed By: #### CMP ####[address] [address] USABilirubin [Mass/Vol]0.2 mg/dLLow0.3-1.0The [facility] Physician GroupComment on above:Performed By: #### CMP ####[address] [address] USACalcium [Mass/Vol]8.0 mg/dLLow 8.6-10.3The [facility] Physician GroupComment on above:Performed By: #### CMP ####[address] [address] [place] Chloride [Moles/Vol]108 mmol/FKxyx45-615Quz [facility] Physician GroupComment on above:Performed By: #### CMP ####[address] [address] USACO2 [Moles/Vol]8.7 mmol/LLow21.0-31.0The [facility] Physician GroupComment on above:Performed By: #### CMP ####[address] [address] USACreatinine [Mass/Vol]12.12 mg/dLHigh0.60-1.20The [facility] Physician GroupComment on above:Performed By: #### CMP ####[address] [address] USACreatinine Clr Calc Pharmacy5.19NormJay Hospital Physician GroupComment on above:Result Comment: PERFORMED BY:[address] [place], [place] [phone] MEDICAL DIRECTORKEMAL FLORES M.D.Performed By: #### CMP ####[place] [address] USAEstimated GFR3.354 mL/MinNormalThe [facility] Physician GroupComment on above:Performed By: #### CMP ####[place] [address] USAGlobulin (S) [Mass/Vol]3.6 g/dLNormTriHealthe [facility] Physician GroupComment on above:Performed By: #### CMP ####[place] [address] USAGlucose [Mass/Vol]119 mg/qTRvos57-858Zbi [facility] Physician GroupComment on above: Result Comment: Random Glucose Reference Range is dependent on time and content of last meal. Glucose of more than 200 mg/dL in a nonstressed, ambulatory subject supports the diagnosis of Diabetes Mellitus. ADA recommended reference rangePerformed By: #### CMP ####[place] [address] USAPotassium [Moles/Vol]4.7 mmol/LNormal3.5-5.1The [facility] Physician GroupComment on above:Performed By: #### CMP ####[place] [address] USAProtein [Mass/Vol]7.1 g/dLNormal6.4-8.9The [facility] Physician GroupComment on above:Performed By: #### CMP ####[place] [address] USASodium [Moles/Vol]136 mmol/FOsrize001-009Mty [facility] Physician GroupComment on above:Performed By: #### CMP ####[id number] USAUrea nitrogen [Mass/Vol]110 mg/dLHigh7-25The [facility] Physician GroupComment on above:Performed By: #### CMP ####[place] [address] USAAlbumin [Mass/Vol]3.6 g/dLNormal3.5-5.7The [facility] Physician GroupComment on above:Performed By: #### MG, CMP, CBC ####[address] [address] USAAlbumin/Globulin [Mass ratio]0.9 {ratio}NormalThe [facility] Physician GroupComment on above:Performed By: #### MG, CMP, CBC ####[address] [address] USAALP [Catalytic activity/Vol]67 U/XHzgyiq62-241Fpl [facility] Physician GroupComment on above: Performed By: #### MG, CMP, CBC ####[address] [address] USAALT [Catalytic activity/Vol]9 U/LNormal7-52The [facility] Physician GroupComment on above:Performed By: #### MG, CMP, CBC ####[address] [address] USAAnion gap [Moles/Vol]25.1 mmol/LHigh6.0-15.0The [facility] Physician GroupComment on above:Performed By: #### MG, CMP, CBC ####[address] [address] USAAST [Catalytic activity/Vol]9 U/DIoe38-78Avu [facility] Physician GroupComment on above:Performed By: #### MG, CMP, CBC ####[address] [address] [place] Bilirubin [Mass/Vol]0.2 mg/dLLow0.3-1.0The [facility] Physician GroupComment on above:Performed By: #### MG, CMP, CBC ####[address] [address] USACalcium [Mass/Vol]8.2 mg/dLLow8.6-10.3The [facility] Physician GroupComment on above:Performed By: #### MG, CMP, CBC ####[address] [address] [place] Chloride [Moles/Vol]110 mmol/ADtch38-674Zsq [facility] Physician GroupComment on above:Performed By: #### MG, CMP, CBC ####[address] [place] [id number] USACO2 [Moles/Vol]6.6 mmol/LLow21.0-31.0The [facility] Physician GroupComment on above:Performed By: #### MG, CMP, CBC ####[address] Creatinine [Mass/Vol]12.19 mg/dLHigh0.60-1.20The [facility] Comment on above:Performed By: #### MG, CMP, CBC ####[place] [address] USAEstimated GFR3.331 mL/MinNormTriHealthe [facility] Physician GroupComment on above:Performed By: #### MG, CMP, CBC ####[place] [address] [place] Globulin (S) [Mass/Vol]3.8 g/dLNoNovant Health Ballantyne Medical Center Physician GroupComment on above:Performed By: #### MG, CMP, CBC ####[place] [address] USAGlucose [Mass/Vol]87 mg/mRWyiiwj13-538Kaw [facility] Physician GroupComment on above:Result Comment: Random Glucose Reference Range is dependent on time and content of last meal. Glucose of more than 200 mg/dL in a nonstressed, ambulatory subject supports the diagnosis of Diabetes Mellitus. ADA recommended reference rangePerformed By: #### MG, CMP, CBC ####[id number] [place] Potassium [Moles/Vol]4.7 mmol/LNormal3.5-5.1The [facility] Physician GroupComment on above:Performed By: #### MG, CMP, CBC ####[address] USAProtein [Mass/Vol]7.4 g/dLNormal6.4-8.9The [facility] Physician GroupComment on above:Performed By: #### MG, CMP, CBC ####[id number] USASodium [Moles/Vol]137 mmol/MRxfory320-650Wwm [place] [facility] HospitalComment on above: Performed By: #### MG, CMP, CBC ####[address] [place] [id number] USAUrea nitrogen [Mass/Vol]109 mg/dLHigh7-[facility] Physician GroupComment on above:Performed By: #### MG, CMP, CBC ####[address] [place] [phone] [place] Creatinine [Mass/volume] in UrineOrdered By: Lynette Dumont on 02-23-2025 Creatinine (U) [Mass/Vol]Creatinine [Mass/volume] in UrineMercy Health West HospitalComment on above:No reference range establishedCreatinine (U) [Mass/Vol]67.00 mg/dLMercy Health West HospitalComment on above:No reference range establishedCreatinine, Urine (Random)on 28-42-1450Qsnlxahuyy, Urine (Random)67.00 mg/dLOrlando Health [facility] Physician [facility] Community HospitalComment on above: Result Comment: No reference range establishedPerformed By: #### ADDONUAPLUS, CUU, URTP, UEOS, UCREA, JON ####[place] [address] USACrystals [Presence] in Urine by AutomatedOrdered By: Lynette Dumont on 55-76-4199Wchkbewr Auto Ql (U)Crystals [Presence] in Urine by AutomatedMercy Health West HospitalCrystals Auto Ql (U)Rare [HPF] [facility] HospitalDipstick and Microscopicon 02-23-2025 Bacteria,UrineRareNormalNone SeenAdventhealth Kissimmee Physician GroupComment on above: Order Comment: Name Collection Type:: Clean-Voided MidstreamPerformed By: #### ADDONUAPLUS, CUU, URTP, UEOS, UCREA, JON ####[id number] USABilirubin,UrineNegativeNormalNegativeThe [facility] Physician GroupComment on above:Order Comment: Name Collection Type:: Clean-Voided MidstreamPerformed By: #### ADDONUAPLUS, CUU, URTP, UEOS, UCREA, JON ####[address] [address] [place] Budding Yeast,Urine1+HighNone SeenThe [facility] Physician GroupComment on above: Order Comment: Name Collection Type:: Clean-Voided MidstreamPerformed By: #### ADDONUAPLUS, CUU, URTP, UEOS, UCREA, JON ####[address] [address] USAGlucose Ql (U)NormalNormalNormalThSt. [facility] Physician GroupComment on above:Order Comment: Name Collection Type:: Clean- Voided MidstreamPerformed By: #### ADDONUAPLUS, CUU, URTP, UEOS, UCREA, JON ####[id number] USAHyaline Casts,UrineNoneNormal0-8The [facility] Physician GroupComment on above:Order Comment: Name Collection Type:: Clean-Voided MidstreamPerformed By: #### ADDONUAPLUS, CUU, URTP, UEOS, UCREA, JON ####[address] [address] USAMucus,UrineRareNormalThe [facility] Physician GroupComment on above:Order Comment: Name Collection Type:: Clean-Voided MidstreamPerformed By: #### ADDONUAPLUS, CUU, URTP, UEOS, UCREA, JON ####[address] [address] [place] Nitrite,UrineNegativeNormalNegativeAdventhealth [facility]e Physician GroupComment on above:Order Comment: Name Collection Type:: Clean-Voided MidstreamPerformed By: #### ADDONUAPLUS, CUU, URTP, UEOS, UCREA, JON ####[address] [address] USAOccult Blood,Urine1+HighNegativeThe [facility] Physician GroupComment on above:Order Comment: Name Collection Type:: Clean-Voided MidstreamPerformed By: #### ADDONUAPLUS, CUU, URTP, UEOS, UCREA, JON ####[id number] [place] Othe Crystals,UrineRareNormalThe [facility] Physician GroupComment on above:Order Comment: Name Collection Type:: Clean-Voided MidstreamPerformed By: #### ADDONUAPLUS, CUU, URTP, UEOS, UCREA, JON ####[address] USARBC,Hfccv3-9Dwoxhf1-3Zuz [facility] Physician GroupComment on above:Order Comment: Name Collection Type:: Clean-Voided MidstreamPerformed By: #### ADDONUAPLUS, CUU, URTP, UEOS, UCREA, JON ####[place] [address] [place] Specificy [place],Urine1.147Tnlrct7.001-1.030The [facility]ician Group Comment on above:Order Comment: Name Collection Type:: Clean-Voided Midstream Performed By: #### ADDONUAPLUS, CUU, URTP, UEOS, UCREA, JON ####[place] [address] USASquamous Epithelial Cell,Kackg6-2Aynd9-7Qqg [facility] Physician GroupComment on above:Order Comment: Name Collection Type:: Clean-Voided MidstreamPerformed By: #### ADDONUAPLUS, CUU, URTP, UEOS, UCREA, JON ####[id number] USAUrobilinogen,UrineNormalNormalNormalThe [facility] Physician GroupComment on above:Order Comment: Name Collection Type:: Clean- Voided MidstreamPerformed By: #### ADDONUAPLUS, CUU, URTP, UEOS, UCREA, JON ####[place] [address] USAWBC CLUMP, UrineModerateHighNone SeenThe [facility] Physician GroupComment on above: Order Comment: Name Collection Type:: Clean-Voided MidstreamPerformed By: #### ADDONUAPLUS, CUU, URTP, UEOS, UCREA, JON ####[address] [place] [address] USAWBC,Vjskl75-257Mqbi5-4Uco [facility] Physician GroupComment on above:Order Comment: Name Collection Type:: Clean-Voided MidstreamPerformed By: #### ADDONUAPLUS, CUU, URTP, UEOS, UCREA, JON ####[address] [place] [address] [facility] Eosinophil,Urineon 23-13-1095Mdxkmilsov,Urine0 %Normal0-1The [facility] Physician GroupComment on above:Order Comment: Name Collection Type:: Clean-Voided MidstreamResult Comment: PERFORMED BY:[address] [place], [place] [phone] MEDICAL DIRECTORKEMAL ACKERMAN M.D.Performed By: #### ADDONUAPLUS, CUU, URTP, UEOS, UCREA, JON ####[id number] [facility] Eosinophils detection in urine sediment by Malin stainOrdered By: Lynette Dumont on 44-52-8950Elkomexvoap Malin stain Ql (Urine sed)Eosinophils detection in urine sediment by Malin stain0-[facility] Eosinophils Malin stain Ql (Urine sed)0 %0-[address] [place] [address] Epithelial cells.squamous [#/area] in Urine sediment by Automated countOrdered By: Lynette Dumont on 01-92-3123Wqhoegdqgk cells.squamous Auto (Urine sed) [#/Area]Epithelial cells.squamous [#/area] in Urine sediment by Automated count [facility] Johnson StreetEpithelial cells.squamous Auto (Urine sed) [#/Area]3-4 [HPF]High02FProMedica Defiance Regional HospitalErythrocyte Sedimentation Rateon 74-98-8989SCS (Bld) [Velocity]84 mm/hHigh0-29The [facility] Physician GroupComment on above:Order Comment: Comment add on to previous draw if possibleResult Comment: PERFORMED BY:[address] [place], [place] [phone] MEDICAL DIRECTORMOCINDY ACKERMAN M.D.Performed By: #### ESR, CRP ####[facility] [address] [place] [address] USAErythrocyte sedimentation rate by Photometric methodOrdered By: Lynette Dumont on 49-24-9531WLH Photometric method (Bld) [Velocity]Erythrocyte sedimentation rate by Photometric methodHigh0- [facility] HospitalESR Photometric method (Bld) [Velocity]84 mm/hr High0-[facility] HospitalErythrocytes [#/area] in Urine sediment by Automated countOrdered By: Lynette Dumont on 83-03-5918AZH Auto (Urine sed) [#/Area]Erythrocytes [#/area] in Urine sediment by Automated count0-[facility] HospitalRBC Auto (Urine sed) [#/Area]3-4 [HPF]0-4FProMedica Defiance Regional HospitalFerritin [Mass/volume] in Serum or PlasmaOrdered By: Lynette Dumont on 93-12-7814Ihhqtccb [Mass/Vol]Ferritin [Mass/volume] in Serum or Sxabqy27.0-306.8[facility] HospitalFerritin [Mass/Vol]204.3 ng/rLYfvtua73.0-306.8[facility] HospitalComment on above:Performed By: #### RETIC, PTT, JOCELYN, LIPID, B12, FOL, A1C WTH eA, FE and TIBC, PT ####[facility] [address] [place] [address] USAFolate on 43-42-5316Upruec5.7 ng/mLNormal>5.9The [facility] Physician GroupComment on above:Result Comment: Folate reference range: >5.9 ng/ml The WHO technical consultation on folate and vitamin b12 deficiencies has determined that folate concentrations less than 4 ng/ml are considered deficient.PERFORMED BY:[address] [place], [place] [phone] MEDICAL DIRECTORKEMAL ACKERMAN M.D.Performed By: #### RETIC, PTT, JOCELYN, LIPID, B12, FOL, A1C WTH eA, FE and TIBC, PT ####[facility] [facility] [place] [address] USAFolate [Mass/volume] in Serum or PlasmaOrdered By: Lynette Dumont on 42-71-5011Olcduq [Mass/Vol]Folate [Mass/volume] in Serum or Plasma>5.9[facility] HospitalComment on above:Folate reference range: >5.9 ng/mlThe WHO technical consultation on folate and vitamin z69zlyophvygjhd has determined that folate concentrations lessthan 4 ng/ml are considered deficient.Folate [Mass/Vol]8.7 ng/mL>5.9[facility] HospitalComment on above:Folate reference range: >5.9 ng/mlThe WHO technical consultation on folate and vitamin j06ndavehuebywm has determined that folate concentrations lessthan 4 ng/ml are considered deficient.Glucose Poct Glucometerson 30-77-4780Trtrtvq [Mass/Vol]173 mg/dLNormJay Hospital Physician GroupComment on above:Result Comment: Random Glucose Reference Range is dependent on time and content of last meal. Glucose of more than 200 mg/dL in a nonstressed, ambulatory subject supports the diagnosis of Diabetes Radha litus.PERFORMED BY:[address] [place], [place] [phone] MEDICAL DIRECTORKEMAL ACKERMAN M.D. Performed By: #### GLULS ####Point of Care testing,Glucose [Mass/Vol]154 mg/dL NormalThe [facility] Physician GroupComment on above:Result Comment: Random Glucose Reference Range is dependent on time and content of last meal. Glucose of more than 200 mg/dL in a nonstressed, ambulatory subject supports the diagnosis of Diabetes Mellitus.PERFORMED BY:[address] CABRERAYadiraAMIAU [place], [place] [phone] MEDICAL DIRECTORKEMAL ACKERMAN M.D.Performed By: #### GLULS ####Point of Care testing,Glucose [Mass/Vol]95 mg/dLOrlando Health Winnie Palmer Hospital for Women & Babies Physician GroupComment on above:Result Comment: Random Glucose Reference Range is dependent on time and content of last meal. Glucose of more than 200 mg/dL in a nonstressed, ambulatory subject supports the diagnosis of Diabetes Mellitus.PERFORMED BY:[address] [place] [place], [place] [phone] MEDICAL DIRECTORKEMAL ACKERMAN M.D. Performed By: #### GLULS ####Point of Care testing,Glucose [Mass/Vol]99 mg/dL [facility] Physician GroupComment on above:Result Comment: Random Glucose Reference Range is dependent on time and content of last meal. Glucose of more than 200 mg/dL in a nonstressed, ambulatory subject supports the diagnosis of Diabetes Mellitus.PERFORMED BY:[address] [place], [place] [phone] MEDICAL DIRECTORKEMAL ACKERMAN M.D.Performed By: #### GLULS ####Point of Care testing,Glucose [Mass/volume] in Urine by Test stripOrdered By: Lynette Dumont on 24-67-2004Odcxkkq Test strip (U) [Mass/Vol]Glucose [Mass/volume] in Urine by Test stripNoDayton VA Medical CenterGlucose Test strip (U) [Mass/Vol]Normal mg/dLWilson Memorial HospitalHemoglobin A1c/Hemoglobin.total in BloodOrdered By: Lynette Dumont on 56-54-4277JeL7p (Bld) [Mass fraction]Hemoglobin A1c percentageHigh4.3-5.6FProMedica Defiance Regional HospitalComment on above:Increased risk for diabetes: 5.7 - 6.4diabetes: >6.4glycemic control for adults with diabetes: <7.0HbA1c (Bld) [Mass fraction]6.0 %High4.3-5.6FProMedica Defiance Regional HospitalComment on above: Increased risk for diabetes: 5.7 - 6.4diabetes: >6.4glycemic control for adults with diabetes: <7.0Result Comment: Increased risk for diabetes: 5.7 - 6.4 diabetes: >6.4 glycemic control for adults with diabetes: <7.0Performed By: #### RETIC, PTT, JOCELYN, LIPID, B12, FOL, A1C WTH eA, FE and TIBC, PT ####[facility] [id number] [place] [address] USAHemoglobin Test strip Ql (U)Ordered By: Lynette Dumont on 14-76-8201Iethxjkqwo Ql (U)Hemoglobin [Presence] in Urine by Test stripHighNegProMedica Bay Park Hospital Hemoglobin Ql (U)1+HighNegProMedica Bay Park HospitalHyaline casts [#/area] in Urine sediment by Automated countOrdered By: Lynette Dumont on 18-50-3154Ihvreac casts Auto (Urine sed) [#/Area]Hyaline casts [#/area] in Urine sediment by Automated count0-8[facility] HospitalHyaline casts Auto (Urine sed) [#/Area]None [LPF]0-8[facility] HospitalINR in Platelet poor plasma by Coagulation assayOrdered By: Lynette Dumont on 18-73-6311ULT Coag (PPP) [Relative time]INR in Platelet poor plasma by Coagulation assayMercy Health West HospitalComment on above:INR Therapeutic Range A) Pre- and Peroperative OAT started two weeks before surgery. NOT HIP SURGERY: 1.5 - 2.5 HIP SURGERY: 2 - 3B) Primary and secondary prevention of venous THROMBOSIS: 2 - 3C) Active venous thrombosis, pulmonary embolismand prevention of recurrent venous thrombosis: 2 - 3D) Prevention of arterial thromboembolismincluding patients with mechanical heart valves: 3 - 4.5INR Coag (PPP) [Relative time]1.3 {INR}NormalMercy Health West HospitalComment on above:INR Therapeutic Range A) Pre- and Peroperative OAT started two weeks before surgery. NOT HIP SURGERY: 1.5 - 2.5 HIP SURGERY: 2 - 3B) Primary and secondary prevention of venous THROMBOSIS: 2 - 3C) Active venous thrombosis, pulmonary embolismand prevention of recurrent venous thrombosis: 2 - 3D) Preve ntion of arterial thromboembolismincluding patients with mechanical heart valves: 3 - 4.5Result Comment: INR Therapeutic Range A) Pre- and Peroperative OAT started two weeks before surgery. NOT HIP SURGERY: 1.5 - 2.5 HIP SURGERY: 2 - 3 B) Primary and secondary prevention of venous THROMBOSIS: 2 - 3 C) Active venous thrombosis, pulmonary embolism and prevention of recurrent venous thromb osis: 2 - 3 D) Prevention of arterial thromboembolism including patients with mechanical heart valves: 3 - 4.5Performed By: #### RETIC, PTT, JOCELYN, LIPID, B12, FOL, A1C WTH eA, FE and TIBC, PT ####[address] [place] [address] USAIron [Mass/volume] in Serum or PlasmaOrdered By: Lynette Dumont on 29-64-9816Ovyb [Mass/Vol]Iron [Mass/volume] in Serum or Plasma Bnd14-107RffkgziinMercy Health West HospitalIron [Mass/Vol]37 ug/oVDkm07-082 [facility] HospitalComment on above:Performed By: #### RETIC, PTT, JOCELYN, LIPID, B12, FOL, A1C WTH eA, FE and TIBC, PT ####[address] [address] USAIron and TIBC Profileon 02-23-2025% Iron Glbqxbbzap26.6 %Oolbbe55-97Yyx [facility] Physician [facility] Community HospitalComment on above:Performed By: #### RETIC, PTT, JOCELYN, LIPID, B12, FOL, A1C WTH eA, FE and TIBC, PT ####[address] [place] [address] USATotal Iron Binding Uddjqkjy534 ug/vZAzo096-906Rjf [facility] Physician GroupComment on above:Performed By: #### RETIC, PTT, JOCELYN, LIPID, B12, FOL, A1C WTH eA, FE and TIBC, PT ####[address] [address] USAKetones Test strip Ql (U)Ordered By: Lynette Dumont on 23-65-6165Uytsnzg Ql (U)Ketones [Presence] in Urine by Test stripHighNegative [facility] HospitalKetones [Presence] in Urine by Test strip Ordered By: Lynette Dumont on 57-28-5721Tpixcoz Ql (U)TraceBrecksville VA / Crille HospitalComment on above:Order Comment: Name Collection Type:: Clean-Voided MidstreamPerformed By: #### ADDONUAPLUS, CUU, URTP, UEOS, UCREA, JON ####[address] [place] [phone] [place] Leukocyte clumps [Presence] in Urine by AutomatedOrdered By: Lynette Dumont on 96-33-2421Lldlmkojo clumps Auto Ql (U)Leukocyte clumps [Presence] in Urine by AutomatedSelect Medical Specialty Hospital - YoungstownLeukocyte clumps Auto Ql (U)Moderate [LPF][facility] Hospital - YoungstownLeukocyte esterase [Presence] in Urine by Test stripOrdered By: Lynette Dumont on 25-17-6343Ofqxgaozx esterase Test strip Ql (U)Leukocyte esterase [Presence] in Urine by Test stripMan Appalachian Regional HospitalNegProMedica Bay Park HospitalLeukocyte esterase Test strip Ql (U)4+[facility] VA / Crille HospitalComment on above:Order Comment: Name Collection Type:: Clean-Voided MidstreamPerformed By: #### ADDONUAPLUS, CUU, URTP, UEOS, UCREA, JON ####[address] [place] [phone] USALeukocytes [#/area] in Urine sediment by Automated countOrdered By: Lynette Dumont on 30-49-6083IAL Auto (Urine sed) [#/Area]Leukocytes [#/area] in Urine sediment by Automated countHigh0-4FProMedica Defiance Regional HospitalWBC Auto (Urine sed) [#/Area]50-100 [HPF]High0-4 [facility] HospitalLipid Panelon 08-04-0166ODJ Cholesterol,Pleryyufxo71 mg/dLNormal0-100The [facility] Hospital Physician GroupComment on above:Result Comment: LDL ATP III CLASSIFICATION LDL less than 100 mg/dL Optimal LDL 100-129 mg/dL Near or above optimal LDL 130-159 mg/dL Borderline high LDL 160-189 mg/dL High LDL greater than 189 mg/dL Very highPerformed By: #### RETIC, PTT, JOCELYN, LIPID, B12, FOL, A1C WTH eA, FE and TIBC, PT ####[address] [address] USATriglyceride w/Ojpxcg121 mg/dLNormal0-149The [facility] Hospital Physician GroupComment on above:Result Comment: TRIG ATP III CLASSIFICATION TRIG less than 150 mg/dL Normal TRIG 150- 199 mg/dL Borderline high TRIG 200-500 mg/dL High TRIG greater than 500 mg/dL Very high Standard traceable to the Center for Disease Conrtrol and Prevention (CDC) test method.Performed By: #### RETIC, PTT, JOCELYN, LIPID, B12, FOL, A1C WTH eA, FE and TIBC, PT ####[address] [address] USAVLDL DOPANKTTXSS11 mg/dLNormalThe [facility]ungo Hospital Physician GroupComment on above:Performed By: #### RETIC, PTT, JOCELYN, LIPID, B12, FOL, A1C WTH eA, FE and TIBC, PT ####[address] [address] USAMagnesiumon 06-82-7451Alumindae [Mass/Vol]2.0 mg/dLNormal1.9-2.7The [facility] Hospital Physician GroupComment on above:Result Comment: PERFORMED BY:[address] [place], [place] [phone] MEDICAL DIRECTORKEMAL ACKERMAN M.D.Performed By: #### MG, CMP, CBC ####[address] [address] USAMucus [Presence] in Urine by AutomatedOrdered By: Lynette Dumont on 82-62-9708Blybo Auto Ql (U)Mucus [Presence] in Urine by AutomatedMercy Health West HospitalMucus Auto Ql (U)Rare [LPF][facility] HospitalNitrite Test strip Ql (U)Ordered By: Lynette Dumont on 05-16-1833Zstseys Ql (U)Nitrite [Presence] in Urine by Test stripNegativeMercy Health West HospitalNitrite Ql (U)Negative NegativeMercy Health West HospitalParathyrin.intact [Mass/volume] in Serum or PlasmaOrdered By: Becky Nash on 93-14-4208Vfewkqgkzj.intact [Mass/Vol]Parathyrin.intact [Mass/volume] in Serum or UvrappLuwv53-46NvkswzduwMercy Health West HospitalParathyrin.intact [Mass/Vol]265.7 pg/qUOjvu42-56LimapkvmwMercy Health West HospitalParathyroid Hormone Intacton 42-41-1309Vnxqdqvddwu Hormone Ffqtdu420.7 pg/fXHitv22-60Mck [facility] Physician GroupComment on above: Result Comment: PERFORMED BY:[address] [place], [place] [phone] MEDICAL DIRECTORKEMAL FLORES M.D.Performed By: #### PTH, [id number] ####[address] [place] [address] USAPartial Thromboplastin Timeon 20-19-4721aJFT Coag (Bld) [Time]43.2 sHigh25.1-36.5The [facility] Comment on above:Result Comment: A hematocrit value greater than 55% may lead to inaccurate results in coagulation testing. Patients having hematocrit values >55% require a special collection tube for coagulation studies. Please contact the laboratory at [phone] for redraw instructions.PERFORMED BY:[address] [place] [phone] MEDICAL DIRECTORKEMAL ACKERMAN M.D.Performed By: #### RETIC, PTT, JOCELYN, LIPID, B12, FOL, A1C WTH eA, FE and TIBC, PT ####[address] [facility] [place] [address] USAPhosphoruson 10-54-9029Lazqghpvd [Mass/Vol]12.2 mg/dLHigh2.5-4.5The [facility] Physician GroupComment on above: Order Comment: Comment add on to previous draw if possibleResult Comment: PERFORMED BY:[address] [place], [place] [phone] MEDICAL DIRECTORKEMAL ACKERMAN M.D. Performed By: #### PHOS ####[address] [place] [address] USAProtein Test strip (U) [Mass/Vol]Ordered By: Lynette Dumont on 06-27-7746Esnzebe (U) [Mass/Vol]Protein [Mass/volume] in Urine by Test stripBrecksville VA / Crille HospitalProtein [Mass/volume] in UrineOrdered By: Lynette Dumont on 39-69-3584Wgttbgc (U) [Mass/Vol]Protein [Mass/volume] in UrineHigh09Mer[facility] HospitalProtein (U) [Mass/Vol]330 mg/dL79 Davis StreetComment on above: Performed By: #### ADDONUAPLUS, CUU, URTP, UEOS, UCREA, JON ####[address] [place] [address] USAProtein [Mass/volume] in Urine by Test stripOrdered By: Lynette Dumont on 66-51-8906Xeakcvm (U) [Mass/Vol]200 mg/dLBrecksville VA / Crille HospitalComment on above:Order Comment: Name Collection Type:: Clean-Voided MidstreamPerformed By: #### ADDONUAPLUS, CUU, URTP, UEOS, UCREA, JON ####[address] [place] [address] USAProthrombin time (PT)Ordered By: Lynette Dumont on 66-83-9255VV Coag (PPP) [Time]Prothrombin time (PT)High 9.0-12.9[facility] HospitalComment on above:A hematocrit value greater than 55% may lead to inaccurate results in coagulation testing. Patients having hematocrit values >55% require a special collection tube for coagulation studies. Please contact the laboratory at [phone] for redraw instructions. PT Coag (PPP) [Time]15.0 sHigh9.0-12.9[facility] HospitalComment on above:A hematocrit value greater than 55% may lead to inaccurate results in coagulation testing. Patientshaving hematocrit values >55% require a special collection tube for coagulation studies. Please contact the laboratory at [phone] for redraw instructions.Result Comment: A hematocrit value greater than 55% may lead to inaccurate results in coagulation testing. Patients having hematocrit values >55% require a special collection tube for coagulation s tudies. Please contact the laboratory at [phone] for redraw instructions. Performed By: #### RETIC, PTT, JOCELYN, LIPID, B12, FOL, A1C WTH eA, FE and TIBC, PT ####[address] [address] [place] Reticulocyte Counton 66-67-8598Cpbrrxbzkkhu Number0.030 10*6/uLNormal0.024-0.084 The [facility] Physician GroupComment on above:Result Comment: PERFORMED BY:[address] [place], [place] [phone] MEDICAL DIRECTORKEMAL ACKERMAN M.D.Performed By: #### RETIC, PTT, JOCELYN, LIPID, B12, FOL, A1C WTH eA, FE and TIBC, PT ####[address] [address] USAReticulocyte Percent 1.1 %Normal0.5-1.5The [facility] Hospital Physician GroupComment on above:Performed By: #### RETIC, PTT, JOCELYN, LIPID, B12, FOL, A1C WTH eA, FE and TIBC, PT ####[address] [address] USAReticulocytes [#/volume] in BloodOrdered By: Lynette Dumont on 54-28-0685Cnmqfhaainrjr (Bld) [#/Vol]Absolute reticulocyte count0.024-0.084[facility] Reticulocytes (Bld) [#/Vol]0.030 10*6/uL0.024-0.084Mer[facility] HospitalReticulocytes/100 RBC Auto (Bld)Ordered By: Lynette Dumont on 02-23-2025 Reticulocytes/100 RBC (Bld)Reticulocyte % auto0.5-1.5FProMedica Defiance Regional HospitalReticulocytes/100 RBC (Bld)1.1 %0.5-1.5FProMedica Defiance Regional Hospital Serum or plasma iron binding capacity measurement (mass/volume)Ordered By: Lynette Dumont on 57-43-4125Plfe binding capacity [Mass/Vol]Iron binding capacity [Mass/volume] in Serum or SysklmSca488-575QahjifjqsMercy Health West HospitalIron binding capacity [Mass/Vol]164 ug/fGGdt831-847NhbdluoweWayne Hospitalerum or plasma iron saturation measurement (mass fraction)Ordered By: Lynette Dumont on 63-75-3185Fizw saturation [Mass fraction]Iron saturation [Mass Fraction] in Serum or Wgpwfb24-05GxucymcasMercy Health West HospitalIron saturation [Mass fraction]22.6 %20-50Wayne Hospitalerum or plasma total cholesterol/high density lipoprotein (HDL) cholesterol mass rat Ordered By: Lynette Dumont on 54-59-9697Tzegenhcesj.total/Cholesterol in HDL [Mass ratio]Serum or plasma total cholesterol/high density lipoprotein (HDL) cholesterol mass rat<5.0[facility] Cholesterol.total/Cholesterol in HDL [Mass ratio]4.8 {ratio}Normal<5.0[facility] HospitalComment on above:Performed By: #### RETIC, PTT, JOCELYN, LIPID, B12, FOL, A1C WTH eA, FE and TIBC, PT ####[facility] [place] [address] USASodium [Moles/volume] in UrineOrdered By: Lynette Dumont on 76-37-7484Uabnpc (U) [Moles/Vol]Sodium [Moles/volume] in UrineMercy Health West HospitalComment on above:No reference range establishedSodium (U) [Moles/Vol]55 mmol/LNormalMercy Health West HospitalComment on above:No reference range establishedResult Comment: No reference range establishedPERFORMED BY:[facility] [place], [place] [phone] MEDICAL DIRECTORKEMAL ACKERMAN M.D.Performed By: #### ADDONUAPLUS, CUU, URTP, UEOS, UCREA, JON ####[facility] [address] [place] [address] [facility] Specific gravity Test strip (U) [Rel density]Ordered By: Lynette Dumont on 00-00-5821Shldkatv gravity (U) [Rel density]Specific gravity of Urine by Test strip1.001-1.030Wayne Hospitalpecific gravity (U) [Rel density]1.0111.001-1.030[facility] HospitalTransferrin [Mass/volume] in Serum or PlasmaOrdered By: Lynette Dumont on 02-23-2025 Transferrin [Mass/Vol]Transferrin [Mass/volume] in Serum or PgpqxlHpy754-664 [facility] HospitalTransferrin [Mass/Vol]117 mg/jCCvs637-835 [facility] HospitalComment on above:Performed By: #### RETIC, PTT, JOCELYN, LIPID, B12, FOL, A1C WTH eA, FE and TIBC, PT ####[facility] [address] [place] [address] USATriglyceride [Mass/volume] in Serum or PlasmaOrdered By: Lynette Dumont on 55-70-5056Ixgnkzheroaj [Mass/Vol] Triglyceride [Mass/volume] in Serum or Plasma0Mer[facility] West HospitalComment on above:TRIG ATP III CLASSIFICATIONTRIG less than 150 mg/dL NormalTRIG 150-199 mg/dL Borderline highTRIG 200-500 mg/dL High TRIG greater than 500 mg/dL Very highStandard traceable to the Center for Disease Conrtrol and Prevention (CDC) test method.Triglyceride [Mass/Vol]125 mg/dL0-149Mer[facility] West HospitalComment on above:TRIG ATP III CLASSIFICATIONTRIG less than 150 mg/dL NormalTRIG 150-199 mg/dL Borderline highTRIG 200-500 mg/dL High TRIG greater than 500 mg/dL Very highStandard traceable to the Center for Disease Conrtrol and Prevention (CDC) test method.US renal BIon 26-78-1176WD renal BINormalThe Vidant [facility]ungo Hospital Physician GroupUrine Cultureon 56-58-4932Pxeqtpud identified Cx Nom (U)NormalThe Vidant Pungo Hospital Physician GroupComment on above: Performed By: #### ADDONUAPLUS, CUU, URTP, UEOS, UCREA, JON ####[facility] [address] [place] [address] USAUrine cultureOrdered By: Lynette Dumont on 94-27-1196Hpdnjmag identified Cx Nom (U)Urine culture [facility] HospitalBacteria identified Cx Nom (U)2 DaysMercy Health West HospitalUrobilinogen Test strip (U) [Mass/Vol]Ordered By: Lynette Dumont on 60-89-1505Dvggntykhrtr (U) [Mass/Vol]Urobilinogen [Mass/volume] in Urine by Test stripNoDayton VA Medical CenterUrobilinogen (U) [Mass/Vol]Normal mg/dLNoDayton VA Medical CenterVitamin B12 ser/plasOrdered By: Lynette Dumont on 20-95-5664Uwgtdyfey (Vitamin B12) [Mass/Vol]Vitamin B12 ser/vszs904-730Xbssqak[address] [place], [place] [address]Cobalamin (Vitamin B12) [Mass/Vol]826 pg/nHHshgca587-432Zqukkwbdh[address] [place] [address] Comment on above:Performed By: #### RETIC, PTT, JOCELYN, LIPID, B12, FOL, A1C WTH eA, FE and TIBC, PT ####[facility] [address] [place] [address] USAVitamin D 25 Hydroxy Totalon 32-03-0286Aowtsrf D 25 Hydroxy Total <7.1Yqd49-030Pnd [facility] Hospital Physician GroupComment on above:Result Comment: VITAMIN D STATUS 25(OH)VITAMIN D RANGE (ng/mL) Deficient <20 Insufficient 20 to <30 Sufficient 30 to 100 Reference: Rabiaick MF,Javid NC, Jolynn-Bunny RENTERIA, et al. Evaluation,treatment, and prevention of vitamin D deficiency; an Endocrine Society clinical practice guideline.JCEM. 2010; 96(7):1911- 30.PERFORMED BY:[address] [place]ODR[place]UEZTH[place], [place] [phone] MEDICAL DIRECTORMOHAMED M EL-FAKHARANY M.D. Performed By: #### PTH, [id number] ####[facility] [address] [place] [phone] [facility] HOSPITALVitamin D+Metabolites [Mass/volume] in Serum or PlasmaOrdered By: Becky Nash on 38-54-9115Skeiamy D+Metabolites [Mass/Vol] Vitamin D+Metabolites [Mass/volume] in Serum or VjrgotOcp22-013OydhlomudMercy Health West HospitalComment on above:VITAMIN D STATUS 25(OH)VITAMIN D RANGE (ng/mL) Deficient <20 Insufficient 20 to <55Jgkfxoazqx22 to 100Reference: Angel JOHNSTON,Javid DUARTE, Alon RENTERIA, et al. Evaluation,treatment, and prevention of vitamin D deficiency; an Endocrine Society clinical practice guideline. JCEM. 2010; 96(7):1911-30.Vitamin D+Metabolites [Mass/Vol]< 7.0 ng/mLLow 30-100[facility] HospitalComment on above:VITAMIN D STATUS 25(OH)VITAMIN D RANGE (ng/mL) Deficient <20 Insufficient 20 to <54Zamcrkjayo12 to 100Reference: Angel JOHNSTON,Javid DUARTE, Alon RENTERIA, et al. Evaluation,treatment, and prevention of vitamin D deficiency; an Endocrine Society clinical practice guideline. JCEM. 2010; 96(7):1911-30.Yeast.budding [Presence] in Urine by Computer assisted methodOrdered By: Lynette Dumont on 94-33-1545Ygjdd.budding Computer assisted Ql (U)Yeast.budding [Presence] in Urine by Computer assisted methodSelect Medical Specialty Hospital - [place]stown Yeast.budding Computer assisted Ql (U)1+ [HPF][facility] Medical Specialty Hospital - YoungstownaPTT in Platelet poor plasma by Coagulation assayOrdered By: Lynette Dumont on 23-29-7000nUTI Coag (PPP) [Time]Activated partial thromboplastin time (aPTT) in platelet poor plasma by coagulation aHigh25.1-36.5 [facility] HospitalComment on above:A hematocrit value greater than 55% may lead to inaccurate results in coagulation testing. Patientshaving hematocrit values >55% require a special collection tube for coagulation studies. Please contact the laboratory at [phone] for redraw instructions. aPTT Coag (PPP) [Time]43.2 sHigh25.1-36.5FProMedica Defiance Regional Hospital Comment on above:A hematocrit value greater than 55% may lead to inaccurate results in coagulation testing. Patientshaving hematocrit values >55% require a special collection tube for coagulation studies. Please contact the laboratory at [phone] for redraw instructions.pH Test strip (U)Ordered By: Lynette Dumont on 54-32-1410iR (U)pH of Urine by Test strip5.0-9.0[facility] HospitalpH of Urine by Test stripOrdered By: Lynette Dumont on 02-23-2025 pH (U)6.5 [pH]Normal5.0-9.0[facility] HospitalComment on above: Order Comment: Name Collection Type:: Clean-Voided MidstreamPerformed By: #### ADDONUAPLUS, CUU, URTP, UEOS, UCREA, JON ####[facility] [address] [place] [address] SBG88jq 89-76-407391Jmowww let her know her kidney function improved some but is still abnormal. Follow-up with nephrology as planned and we can see if they are okay with her resuming lisinopril and Farxiga. Thank you![place] [phone] see when she plans to have BMP done. Thank you [facility]36Did she get the follow-up BMP?[facility] HospitalOr[facility] Only11-[facility]-2023 Orders [id number] Sourav Roque 1970 F Date Provider Department Center 11/26/2023 RAJENDRA WIGGINS Family History Problem Relation Age of Onset COPD Mother Heart failure Mother Heart attack Mother's Brother Family Status - Relation Status Age at Mother Mother's BrotherNormalUniProvidence [id number] let her know her labs yesterday showed [...] can see her sooner than later. Thank you![facility]37on *Will switch metoprolol for carvedilol 6.25mg twice daily *Have follow-up labs drawn *Establish care with nephrologyNormalUniProvidence HospitalOffice Visiton 18-92-3316Zxswvq-up [id number] Sourav Roque 1970 F Date Provider Department Center 11/25/2023 JOSE F DILLARD [facility] Family History Problem Relation Age of Onset COPD Mother Heart failure Mother Heart attack Mother's Brother Family Status - Relation Status Age at Mother Mother's Brother Level of Service:05205 [place] OFFICE/OUTPATIENT ESTABLISHED MOD MDM 30 [facility] HospitalTelephoneon [id number] Sourav Roque 1970 F Date Provider Department Center 11/25/2023 JOSE F DILLARD Family History Problem Relation Age of Onset COPD Mother Heart failure Mother Heart attack Mother's Brother Family Status - Relation Status Age at Mother Mother's BrotherNormalUniProvidence HospitalACID FAST SMEAR AND CX on 86-71-8559Mwbn Fast CultureNegativeSelect Medical Specialty Hospital - Southeast OhioComment on above:Result Comment: No acid fast bacilli isolated after 6 weeks.Performed By: #### AFB ####[facility] [address] [place] [address] [address]DrSin BessAcid Fast SmearNegativeSelect Medical Specialty Hospital - Southeast OhioComment on above:Performed By: #### AFB ####[facility] [address] [place] [address] [address]Dr.Yilan ChangAFB Specimen ProcessingDirect InoculationSelect Medical Specialty Hospital - Southeast OhioComment on above:Performed By: #### AFB ####[facility] [address] [place], [place] [address]Dr. Kalie BessPRBC LEUKOREDUCEDon 31-60-4169ULFQ LEUKOREDUCEDSelect Medical Specialty Hospital - Southeast OhioComment on above:Performed By: #### PRBC ####[facility] [address] [place], [place] [address]Dr. Kalie BessFUNGAL CULTURE on 06-18-2057Xlesnp (Mycology) CultureFinal reportSelect Medical Specialty Hospital - Southeast [place] Comment on above:Performed By: #### CXFUN ####[facility] [address] [place], [place] [address]Dr. Kalie BessFungus StainFinal report NormalSalem City HospitalComment on above:Performed By: #### CXFUN ####[facility] [address] [place], [place] [address]Dr. Kalie BessResult 1CommentSelect Medical Specialty Hospital - Southeast OhioComment on above:Result Comment: GILMA/Calcofluor preparation: no fungus observed.Performed By: #### CXFUN ####[facility] [address] [place], [place] [address]Dr. Kalie ChangResult Comment: No yeast or mold isolated after 4 weeks.C. DIFF PCRon 12-26-2022. DIFFICILE PCRNegativeNormalNEGATIVEThe [facility] St. Vincent Medical CenterComment on above:Performed By: #### CDIFPOC ####[facility] [address] [place], [place] [address]Dr. Kalie BessCBC AUTO DIFFon 48-28-7636GGBW #0.1 103/ulNormal0.0-0.1The [facility] Vincent Medical CenterComment on above:Performed By: #### CBC ####[facility] [address] [place], [place] [address]Dr. Kalie BessBasophils/100 WBC (Bld)0.4 %Normal0.2-2.0The [facility] Vincent Medical CenterComment on above:Performed By: #### CBC ####[facility] [address] [place] [address] [address]Dr.Yilan ChangEO #0.4 103/ulNormal0.0-0.7The Railroad HospitalComment on above:Performed By: #### CBC ####[facility] [address] [place], [place] [address]Dr.Yilan ChangEosinophils/100 WBC (Bld)2.5 %Normal0.9-7.0The Railroad HospitalComment on above:Performed By: #### CBC ####[facility] [address] [place], [place] [address]Dr.Yilan ChangErythrocyte distribution width (RBC) [Ratio]14.1 %Normal 11.0-15.0The [facility] Vincent Medical CenterComment on above:Performed By: #### CBC ####[facility] [address] [place], [place] [address]Dr. Shayylan ChangHematocrit (Bld) [Volume fraction]24.3 %Critically low36.0-48.0The [facility] Vincent Medical CenterComment on above:Performed By: #### CBC ####[facility] [address] [place], [place] [address]Dr.Kalie ChangHemoglobin (Bld) [Mass/Vol]7.3 g/dLCritically low12.0-16.0The [facility] Vincent Medical CenterComment on above:Performed By: #### CBC ####[facility] [address] [place], [place] [address]Dr.Yilan ChangIG #0.29 10e3/ulCritically high0.00-0.[address] Vincent Medical CenterComment on above:Performed By: #### CBC ####[facility] [address] [place], [place] [address]Dr.Yilan ChangIG % 1.9 %Critically high0.0-0.5The [facility] Vincent Medical CenterComment on above:Performed By: #### CBC ####[facility] [address] [place], [place] [address]Dr.Yilan ChangLYMPH #3.6 103/ulNormal1.2-3.8The [facility] Vincent Medical CenterComment on above:Performed By: #### CBC ####[facility] [address] [place], [place] [address]Dr.Kalie BessLymphocytes/100 WBC (Bld)23.1 %Normal 20.5-60.0The [facility] Vincent Medical CenterComment on above:Performed By: #### CBC ####[facility] [address] [place], [place] [address]Dr. Kalie ShahriarMANUAL DIFF REQNONormalThe [facility] St[facility] Vincent Medical CenterComment on above: Performed By: #### CBC ####[facility] [address] [place], [place] [address]Dr.Kalie BessH (RBC) [Entitic mass]28.9 pgNormal 26.7-34.0The [facility] Vincent Medical CenterComment on above:Performed By: #### CBC ####[facility] [address] [place], [place] [address]Dr. Kalie BessHC (RBC) [Mass/Vol]30.0 g/gRLkfusq54.9-35.2The [facility] Comment on above:Performed By: #### CBC ####[facility] [address] [place], [place] [address]Dr.Kalie BessV (RBC) [Entitic vol]96.0 fL Kpvmmn55.0-99.0The [facility] Medical CenterComment on above:Performed By: #### CBC ####[facility] [address] [place], [place] [address]Dr. Kalie ShahriarMONO #0.8 103/ulNormal0.3-0.8The [facility] Medical CenterComment on above: Performed By: #### CBC ####[facility] [address] [place], [place] [address]Dr.Shayyroxie ShahriarMonocytes/100 WBC (Bld)5.0 %Normal 1.7-12.0The [facility] Medical CenterComment on above:Performed By: #### CBC ####[facility] [address] [place], [place] [address]Dr. Yilan ChangNEUT #10.5 103/ulCritically high1.4-6.5The [facility] Medical CenterComment on above:Performed By: #### CBC ####[facility] [address] [place] [address]Dr.Kalie BessNeutrophils/100 WBC (Bld)67.1 %Normal 43.0-75.0The [facility] Medical CenterComment on above:Performed By: #### CBC ####[facility]cy [facility] Ojdydhuvvi[address] [place], [place] [address]Dr. Kalie BessPlatelet mean volume (Bld) [Entitic vol]10.8 fLNormal9.5-13.5The [facility] Medical CenterComment on above:Performed By: #### CBC ####[facility] Ygxmgjzvlg6[address] [place], [place] [address]Dr.Kalie KtlfoUCP893 103/ul Vbcrjr374-047Ipg [facility] CenterComment on above:Performed By: #### CBC ####[facility] Fqwlyxcrpt3967[address] [place], [place] [address]Dr. Kalie ChangRBC2.53 106/ulCritically low4.20-5.40The [facility] CenterComstraith hospital for special surgery on above:Performed By: #### CBC ####[facility] Ebdstszowb[address] [place], [place] [address]Dr.Kalie OpugtIBP90.7 103/ulCritically high4.0-11.0The [facility] CenterComment on above:Performed By: #### CBC ####[facility] Intssrmfjs632[address] [place], [place] [address]Dr.Kalie BessCRPon 13-95-2036KGC2.9 mg/dLCritically high<=1.0The [facility] CenterComstraith [facility] for [facility] on above: Performed By: #### CRP, CMP ####[facility] Bwswszserz4[address] [place], [place] [address]Dr. Kalie [facility] GLUCOSEon 11-30-2022 Glucose [Mass/Vol]295 mg/dLCritically qofd37-058Jwn [facility] CenterComment on above:Performed By: #### POCGLUC ####[facility] [address]dbczntvqd[address] [place] [address]Dr. Yilan ChangGlucose [Mass/Vol]166 mg/dLCritically jmgw25-458Djo [facility] CenterComment on above:Performed By: #### POCGLUC ####[facility] Gngdhmulfh[address] [place] [address]Dr. Yilan ChangPROF 14(COMP METB)on 62-88-9872Fjaijlw [Mass/Vol]1.6 g/dLCritically low3.4-5.0The [facility] HospitalComment on above:Performed By: #### CRP, CMP ####[facility] Jubshmgizk[address] [place] [address]Dr. Shayylan ChangAlbumin/Globulin [Mass ratio]0.4 {ratio}NormalThe [facility] Comment on above:Performed By: #### CRP, CMP ####[facility] Vdejxvmbjf07[address] [place] [address]Dr. Yilan ChangALP [Catalytic activity/Vol]115 U/ZQxkdfy87-142Zqj [facility] CenterComment on above:Performed By: #### CRP, CMP ####[facility] Rwbdjpvqdz65[address] [place] [address]Dr. Yilan ChangALT [Catalytic activity/Vol]21 U/LBrxfxm81-87Llv [facility] CenterComment on above:Performed By: #### CRP, CMP ####[facility] Zrrstzmblm[address] [place] [address]Dr. Shayylan ChangAnion gap [Moles/Vol]10.2 mmol/LNormalThe [facility] CenterComment on above:Performed By: #### CRP, CMP ####[facility] Unbvcgmduz26[address] [place] [address]Dr. Yilan ChangAST [Catalytic activity/Vol]15 U/JFnybao35-46Zdf [facility] CenterComment on above:Performed By: #### CRP, CMP ####[facility] Ryhcxkuqeh35[address] [place] [address]Dr. Yilan Bess Bilirubin [Mass/Vol]0.1 mg/dLCritically low0.2-1.0The [facility] CenterComment on above:Performed By: #### CRP, CMP ####[facility] Xrwlkcdegv1402[address] [place], [place] [address]Dr. Yilan ChangCalcium [Mass/Vol]8.1 mg/dL Critically low8.5-10.1The [facility] CenterComment on above:Performed By: #### CRP, CMP ####[facility] Mohmzpkmnk9727[address] [place], [place] [address]Dr. Yilan ChangChloride [Moles/Vol]104 mmol/THoaebh55-824Utd [facility] CenterComment on above:Performed By: #### CRP, CMP ####[facility] Sdyghepxww5623[address] [place], [place] [address]Dr. Yilan ChangCO2 [Moles/Vol]26.1 mmol/YFexgfc36.0-32.0The [facility] CenterComment on above: Performed By: #### CRP, CMP ####[facility] Taexmzwayi9269[address] [place], [place] [address]Dr. Yilan ChangCreatinine [Mass/Vol]1.88 mg/dL Critically high0.55-1.02The [facility] CenterComment on above:Performed By: #### CRP, CMP ####[facility] Cxzfdcfrpj3843[address] [place], [place] [address]Dr. Yilan ChangEGFR-AF DDTOGDZV56 mL/min/1.64q7Fkfavdwfeb low>=60The [facility] CenterComment on above:Performed By: #### CRP, CMP ####[facility] Skfidtknio6188[address] [place], [place] [address]Dr. Yilan ChangEGFR- NON AF KOKDEITC27 mL/min/1.26i5Ffzozrlsns low>=60The [facility] CenterComment on above:Performed By: #### CRP, CMP ####[facility] Khnlsrzhgr6345[address] [place], [place] [address]Dr. Yilan ChangGlobulin (S) [Mass/Vol]4.5 g/dL NormalThe [facility] CenterComment on above:Performed By: #### CRP, CMP ####[facility] Goojzsrlxq46[address] Main StreetBellevue, [place] [address]Gn. Yilan ChangGlucose [Mass/Vol]171 mg/dLCritically txec20-547Sut [facility] Comment on above:Performed By: #### CRP, CMP ####[facility] Skdiornuxf3157 [place] [address]Dr. Yilan ChangPotassium [Moles/Vol]4.3 mmol/LNormal3.5-5.1The [facility] CenterComment on above: Performed By: #### CRP, CMP ####[facility] Fumfnvcfcr8715[address] [place], [place] [address]Dr. Yilan ChangProtein [Mass/Vol]6.1 g/dLCritically low6.4-8.2The [facility] CenterComment on above:Performed By: #### CRP, CMP ####[facility] Txqxmbfdoo8924[address] [place], [place] [address]Dr. Yilan ChangSodium [Moles/Vol]136 mmol/OEszifk122-265Adk [facility] CenterComment on above:Performed By: #### CRP, CMP ####[facility] Yvsgfsdvqk784[address] [place], [place] [address]Dr. Yilan ChangUrea nitrogen [Mass/Vol]17.0 mg/dL Normal7.0-18.0The [facility] CenterComment on above:Performed By: #### CRP, CMP ####[facility] Xtogfpwavf0122[address] [place], [place] [address]Dr. Yilan ChangUrea nitrogen/Creatinine [Mass ratio]9.0 mg/mgNormalThe [facility] CenterComment on above:Performed By: #### CRP, CMP ####[facility] Axlotpurtc570[address] [place], [place] [address]Dr. Yilan ChangSED RATE WESTERGRENon 81-84-9821RUZ RATE77 mm/hrCritically high<=30The [facility] Comment on above:Performed By: #### SEDR ####[facility] Tuhyyxeimg0047[address] [place], [place] [address]Dr. Yilan ChangCBC AUTO DIFFon 11-29-2022 BASO #0.1 103/ulNormal0.0-0.1The [facility] CenterComment on above:Performed By: #### CBC ####[facility] Wzkwlqzjjp2443 [place] [address]Dr.Yilan ChangBasophils/100 WBC (Bld)0.3 %Normal0.2-2.0The [facility] CenterComment on above:Performed By: #### CBC ####[facility] Dhwlaxgrqx025[address] [place], [place] [address]Dr.Yilan ChangEO #0.4 103/ul Normal0.0-0.7The [facility] CenterComment on above:Performed By: #### CBC ####[facility] Xpbmbjgjmw1495[address] [place], [place] [address]Dr. Yilan ChangEosinophils/100 WBC (Bld)2.3 %Normal0.9-7.0The [facility] Comment on above:Performed By: #### CBC ####[facility] Ulipqpnjml6828[address] [place], [place] [address]Dr.Yilan ChangErythrocyte distribution width (RBC) [Ratio]14.0 %Rhpdfl54.0-15.0The [facility] Systemment on above: Performed By: #### CBC ####[facility] Fehjmldadw3566[address] [place], [place] [address]Dr.Yilan ChangHematocrit (Bld) [Volume fraction]24.7 % Critically low36.0-48.0The [facility] CenterComment on above:Performed By: #### CBC ####[facility] Nwccurvrxt1935[address] [place], [place] [address]Dr. Yilan ChangHemoglobin (Bld) [Mass/Vol]7.5 g/dLCritically low12.0-16.0The [facility] CenterComment on above:Performed By: #### CBC ####[facility] Bdmjnrxkhc5789[address] [place], [place] [address]Dr.Yilan ChangIG #0.37 10e3/ulCritically high0.00-0.03The [facility] CenterComment on above:Performed By: #### CBC ####[facility] Pisdwelpfw5578[address] [place], [place] [address]Dr.Yilan ChangIG %2.1 %Critically high0.0-0.5The [facility] HospitalComment on above:Performed By: #### CBC ####[facility] Cxjoueuykp1573[address] [place], [place] [address]Dr.Kalie WilsonST. VINC[facility] #3.3 103/ulNormal1.2-3.8The [facility] HospitalComment on above:Performed By: #### CBC ####[facility] Bezvydizqj6007[address] [place], [place] [address]Dr.Kalie Wilsonhocytes/100 WBC (Bld)18.8 %Critically low20.5-60.0The [facility] HospitalComment on above: Performed By: #### CBC ####[facility] Qlctucdxeo3762[address] [place], [place] [address]Dr.Kalie BessMANUAL DIFF REQNONormalThe [facility] CenterComment on above:Performed By: #### CBC ####[facility] Huwklrkqtl358[address] [place], [place] [address]Dr.Kalie BessUNITED [facility] (RBC) [Entitic mass]28.8 keLotnsr91.7-34.0The [facility] HospitalComment on above: Performed By: #### CBC ####[facility] Lyvwgshpbg928[address] [place], [place] [address]Dr.Kalie BessNOR[facility] (RBC) [Mass/Vol]30.4 g/dLNormal 29.9-35.2The [facility] CenterComment on above:Performed By: #### CBC ####[facility] Eirxtavivm2461[address] [place], [place] [address]Dr. Kalie BessV (RBC) [Entitic vol]95.0 tWNuzryy86.0-99.0The [facility] Comment on above:Performed By: #### CBC ####[facility] Xgextfdaef0496[address] [place], [place] [address]Dr.Kalie BessAVERYO #0.9 103/ulCritically high0.3-0.8The [facility] HospitalComment on above:Performed By: #### CBC ####[facility] Jyhobybphz9224[address] [place], [place] [address]Dr. Shayylan ChangMonocytes/100 WBC (Bld)5.1 %Normal1.7-12.0The [facility] Comment on above:Performed By: #### CBC ####[facility] Aykgsnvkiu[address] [place] [address]Dr.Shayylan ChangNEUT #12.3 103/ulCritically high1.4-6.5The [facility] CenterComment on above:Performed By: #### CBC ####[facility] Cqccovrtbz1010 [place] [address]Dr. Shayylan ChangNeutrophils/100 WBC (Bld)71.4 %Dipntj44.0-75.0The [facility] Comment on above:Performed By: #### CBC ####[facility] Lojyhkleap79[address] [place] [address]Dr.Kalie ChangPlatelet mean volume (Bld) [Entitic vol]10.7 fLNormal9.5-13.5The [facility] CenterComment on above: Performed By: #### CBC ####[facility] Lxkmjendyr1801 [place] [address]Dr.Yilan FrayyCSZ667 103/syFcmvgn080-576Qcr [facility] CenterComment on above:Performed By: #### CBC ####[facility] Sgoayfazzq[address] [place], [place] [address]Dr.Kalie ChangRBC2.60 106/ul Critically low4.20-5.40The [facility] CenterComment on above:Performed By: #### CBC ####[facility] Llhiiuunrl2374 [place] [address]Dr. Kalie XwghjWCS33.3 103/ulCritically high4.0-11.0The [facility] CenterComment on above:Performed By: #### CBC ####[facility] Qctsmqebxt[address] [place], [place] [address]Dr.Shayylan ChangCBC W MANUAL DIFFon 64-22-5563UKESDQZJ LYMPH #0.00 103/ulNormalThe [facility] CenterComment on above:Performed By: #### CBCMAN ####[facility] Fhidwnsctz1089 [place] [address]Dr. Yilan ChangATYPICAL LYMPH %0 %NormalThe Railroad HospitalComment on above:Performed By: #### CBCGABRIELLA ####[facility] Pjmceftpgr627[address] [place], [place] [address]Dr. Yilan ChangBAND #0.2 103/ulNormal0.0-0.3The [facility] HospitalComment on above:Performed By: #### CBCGABRIELLA ####[facility] Vodrpwfyfb9395[address] [place], [place] [address]Dr. Yilan ChangBAND %1 %Normal0-5The [facility] HospitalComment on above:Performed By: #### CBCGABRIELLA ####[facility] Quemoojeid6041[address] [place], [place] [address]Dr. Yilan ChangBASOM #0.00 103/ulNormal0.00-0.10The [facility] HospitalComment on above:Performed By: #### CBCGABRIELLA ####[facility] Zppuvnudnm5032[address] [place], [place] [address]Dr. Yilan ChangBASOM %0.0 %Critically low0.2-2.0The [facility] HospitalComment on above:Performed By: #### CBCGABRIELLA ####[facility] Mhxsjhwwfq7187[address] [place], [place] [address]Dr. Yilan ChangBLAST #NormalThe Railroad HospitalComment on above:Performed By: #### CBCGABRIELLA ####[facility] Lcgyjeydnp13[address] [place], [place] [address]Dr. Yilan ChangBLAST %NormalThe Railroad HospitalComment on above:Performed By: #### CBCGABRIELLA ####[facility] Urnrlacjhx1429[address] [place], [place] [address]Dr. Yilan ChangCORRECTED WBCNormal4.0-11.0The [facility] HospitalComment on above:Performed By: #### CBCMAN ####[facility] Ejfubjtrwl4645[address] [place], [place] [address]Dr. Yilan ChangEOS #0.78 103/ulCritically high 0.00-0.70The [facility] HospitalComment on above:Performed By: #### CBCMAN ####[facility] Tfdbpqhyti8470 [place] [address]Dr. Yilan ChangEOS%4.0 %Normal0.9-7.0The [facility] CenterComment on above:Performed By: #### CBCMAN ####[facility] Wchuwgilwr8992 [place] [address]Dr. Yilan NkrukSOS47.8 %Critically low36.0-48.0The [facility] Comment on above:Performed By: #### CBCMAN ####[facility] Cgputoutda5785[address] [place], [place] [address]Dr. Yilan ChangHGB7.4 g/dlCritically low 12.0-16.0The [facility] CenterComment on above:Performed By: #### CBCGABRIELLA ####[facility] Ulzbdpgvuw420[address] [place], [place] [address]Dr. Yilan ChangHYPOCHROMASIA1+NormalThe [facility] CenterComment on above:Performed By: #### CBCGABRIELLA ####[facility] Ahzqcfpgvb7313[address] [place], [place] [address]Dr. Yilan ChangLYMPHM #1.94 103/ulNormal1.20-3.80The [facility] Comment on above:Performed By: #### CBCGABRIELLA ####[facility] Ziubvcpuoa6028[address] [place], [place] [address]Dr. Kalie ChangLYMPHM%10.0 %Critically low 20.5-60.0The [facility] CenterComment on above:Performed By: #### CBCGABRIELLA ####[facility] Wqmibnmukl839[address] [place], [place] [address]Dr. Yilan KislmRZJ74.8 njMofhwf24.7-34.0The [facility] CenterComment on above: Performed By: #### CBCMAN ####[facility] Kynbiqrqat2658[address] [place], [place] [address]Dr. Yilan LnqwfOGFC60.8 g/dlCritically low29.9-35.2The [facility] CenterComment on above:Performed By: #### CBCMAN ####[facility] Pmqcpgrelf7637 [place] [address]Dr. Yilan ChangMCV 96.5 eVYrithk17.0-99.0The [facility] HospitalComment on above:Performed By: #### CBCMAN ####[facility] Exfkhcoife9252 [place] [address]Dr. Yilan ChangMETAMYELOCYTE #NormalThe Railroad HospitalComment on above: Performed By: #### CBCMAN ####[facility] Cprruylbcy84[address] [place], [place] [address]Dr. Yilan ChangMETAMYELOCYTE %NormalThe [facility] CenterComment on above:Performed By: #### CBCMAN ####[facility] Gkgobrcpkp364[address] [place], [place] [address]Dr. Yilan ChangMICROCYTOSIS SLIGHTNormalThe [facility] CenterComment on above:Performed By: #### CBCMAN ####[facility] Cxbdbdibrn330[address] [place], [place] [address]Dr. Yilan ChangMONOM#0.97 103/ulCritically high0.30-0.80The [facility] CenterComment on above:Performed By: #### CBCMAN ####[facility] Oxtckqmcyq530[address] [place], [place] [address]Dr. Yilan ChangMONOM%5.0 %Normal1.7-12.0The [facility] CenterComment on above:Performed By: #### CBCMAN ####[facility] Fpoynhwsbn3168[address] [place], [place] [address]Dr. Yilan ChangMPV 10.9 fLNormal9.5-13.5The [facility] CenterComment on above:Performed By: #### CBCMAN ####[facility] Hdnmddzmbl9165[address] [place], [place] [address]Dr. Yilan ChangMYELOCYTE #NormalSalem City HospitalComment on above: Performed By: #### CBCMAN ####[facility] Gcpqzfadzc0829[address] [place], [place] [address]Dr. Yilan ChangMYELOCYTE %NormalThe [facility] Comment on above:Performed By: #### CBCMAN ####[facility] Zykmlqhnws4849 [place] [address]Dr. Kalie BessNROhioHealth Grove City Methodist HospitalComment on above:Performed By: #### CBCGABRIELLA ####[facility] Hfqazwyoqy4002[address] [place], [place] [address]Dr. Kalie BessPLT271 103/ul Tkdlwr647-322Slx [facility] CenterComment on above:Performed By: #### CBCGABRIELLA ####[facility] Blksttirey7761[address] [place], [place] [address]Dr. Kalie BessRBC2.57 106/ulCritically low4.20-5.40The [facility] CenterComment on above:Performed By: #### APOLLO ####[facility] Ncogkhqxpc1492[address] [place], [place] [address]Dr. Kalie BessRDW14.1 %Gcaxca51.0-15.0The [facility] CenterComment on above:Performed By: #### APOLLO ####[facility] Wrfkxjttlo2879[address] [place], [place] [address]Dr. Kalie Hahn #15.52 103/ulCritically high1.40-6.50The [facility] CenterComment on above:Performed By: #### APOLLO ####[facility] Qpbbybkmag9991[address] [place], [place] [address]Dr. Kalie Hahn %80.0 %Critically high43.0-75.0The [facility] CenterComstraith hospital for special surgery on above:Performed By: #### APOLLO ####[facility] Jzxfcazwmt4718[address] [place], [place] [address]Dr. Kalie BessSTOMATOCYTES SLIGHTSelect Medical Specialty Hospital - Southeast OhioComment on above:Performed By: #### CBCGABRIELLA ####[facility] Mwpvprhgys1095[address] [place], [place] [address]Dr. Kalie HvxamZXG52.4 103/ulCritically high4.0-11.0The [facility] CenterComstraith hospital for special surgery on above:Performed By: #### CBCGABRIELLA ####[facility] Lqtgigfsmg034[address] [place], [place] [address]Dr. Kalie ShahriarCRPon 75-91-8233FUV8.7 mg/dLCritically high<=1.0The [facility] CenterComment on above:Performed By: #### CMP, CRP ####[facility] Pacgclofzc638[address] [place], [place] [address]Dr. Kalie ChangPOINT OF CARE GLUCOSEon 01-98-2089Exhcqtn [Mass/Vol]225 mg/dL Critically mrcp76-669Ccl [facility] CenterComment on above:Performed By: #### POCGLUC ####[facility] Lxalxltedt7813[address] [place], [place] [address]Dr. Yilan ChangGlucose [Mass/Vol]144 mg/dLCritically azty19-069Qna [facility] CenterComment on above:Performed By: #### POCGLUC ####[facility] Kgriphyjsd550[address] [place], [place] [address]Dr. Yilan ChangGlucose [Mass/Vol]243 mg/dLCritically leqo54-515Xwn [facility] CenterComment on above: Performed By: #### POCGLUC ####[facility] Iauesddvor4156[address] [place], [place] [address]Dr. Shayylan ChangGlucose [Mass/Vol]214 mg/dLCritically daab17-176Zyl [facility] CenterComment on above:Performed By: #### POCGLUC ####[facility] Qflzqipeoo786[address] [place], [place] [address]Dr. Yilan ChangPROF 14(COMP METB)on 49-87-8039Kjzugmw [Mass/Vol]1.5 g/dLCritically low3.4-5.0The [facility] CenterComment on above:Performed By: #### CMP, CRP ####[facility] Ssbiwiwalm5844[address] [place], [place] [address]Dr. Shayylan ChangAlbumin/Globulin [Mass ratio]0.4 {ratio}NormalThe [facility] Comment on above:Performed By: #### CMP, CRP ####[facility] Lpjrtauaqi750[address] [place], [place] [address]Dr. Shayylan ChangALP [Catalytic activity/Vol]117 U/LCritically lhwq47-345Yzb [facility] CenterComment on above: Performed By: #### CMP, CRP ####[facility] Yfsfjewyde9942 [place] [address]Dr. Yilan ChangALT [Catalytic activity/Vol]21 U/L Myovdn13-08Mcu [facility] CenterComment on above:Performed By: #### CMP, CRP ####[facility] Lgkvvrxnud886[address] [place], [place] [address]Dr. Yilan ChangAnion gap [Moles/Vol]9.7 mmol/LNormalThe [facility] CenterComment on above:Performed By: #### CMP, CRP ####[facility] Lcuavgreio2708[address] [place], [place] [address]Dr. Yilan ChangAST [Catalytic activity/Vol]16 U/L Ltdjiq90-78Hyc [facility] CenterComment on above:Performed By: #### CMP, CRP ####[facility] Zxrogyvgpj834[address] [place], [place] [address]Dr. Yilan ChangBilirubin [Mass/Vol]0.2 mg/dLNormal0.2-1.0The [facility] Comment on above:Performed By: #### CMP, CRP ####[facility] Mhfvgfegev9946[address] [place], [place] [address]Dr. Yilan ChangCalcium [Mass/Vol]7.8 mg/dLCritically low8.5-10.1The [facility] CenterComment on above: Performed By: #### CMP, CRP ####[facility] Yjvdxkigzz4539[address] [place], [place] [address]Dr. Yilan ChangChloride [Moles/Vol]102 mmol/LNormal 98-107The [facility] CenterComment on above:Performed By: #### CMP, CRP ####[facility] Eqofosjeoa[address] [place], [place] [address]Dr. Yilan ChangCO2 [Moles/Vol]28.4 mmol/OQthzuw25.0-32.0The [facility] CenterComment on above:Performed By: #### CMP, CRP ####[facility] Wajpzltbks[address] [place], [place] [address]Dr. Yilan ChangCreatinine [Mass/Vol]1.85 mg/dL Critically high0.55-1.02The [facility] HospitalComment on above:Performed By: #### CMP, CRP ####[facility] [address]pannjsbpf[address] [place] [address]Dr. Yilan ChangEGFR-AF IKTJVOFK58 mL/min/1.66k6Kjtztqxkat low>=60The [facility] CenterComment on above:Performed By: #### CMP, CRP ####[facility] Fmjzxofxtt24[address] [place], [place] [address]Dr. Yilan ChangEGFR- NON AF RPKNSRCJ32 mL/min/1.83l7Euwlbhinyo low>=60The [facility] HospitalComment on above:Performed By: #### CMP, CRP ####[facility] Ujqvhuhzoo[address] [place], [place] [address]Dr. Yilan ChangGlobulin (S) [Mass/Vol]4.2 g/dL NormalThe [facility] CenterComment on above:Performed By: #### CMP, CRP ####[facility] [address] [place], [place] [address]Dr. Yilan ChangGlucose [Mass/Vol]250 mg/dLCritically moqd00-018Gbh [facility] Comment on above:Performed By: #### CMP, CRP ####[facility] Ksqdtvuovi2415[address] [place], [place] [address]Dr. Yilan ChangPotassium [Moles/Vol]4.1 mmol/LNormal3.5-5.1The [facility] Medical CenterComment on above: Performed By: #### CMP, CRP ####[facility] Baybwmqtef[address] [place], [place] [address]Dr. Yilan ChangProtein [Mass/Vol]5.7 g/dLCritically low6.4-8.2The [facility] CenterComment on above:Performed By: #### CMP, CRP ####[facility] Maazceknqq4[address] [place], [place] [address]Dr. Yilan ChangSodium [Moles/Vol]136 mmol/YQcrpvp130-014Qpe [facility] CenterComment on above:Performed By: #### CMP, CRP ####[facility] Fcrydusqtz935510 [address] [place], [place] [address]Dr. Yilan ChangUrea nitrogen [Mass/Vol]17.0 mg/dL Normal7.0-18.0[facility] City HospitalComment on above:Performed By: #### CMP, CRP ####[facility] Drruutfycg883810 [address] [place], [place] [address]Dr. Kalie ChangUrea nitrogen/Creatinine [Mass ratio]9.2 mg/mgSelect Medical Specialty Hospital - Southeast OhioComment on above:Performed By: #### CMP, CRP ####[facility] Anowjrdvap1075[address] [place], [place] [address]Dr. Yilan ChangSED RATE WESTERGRENon 50-84-2821QPJ RATE63 mm/hrCritically high<=30The [facility] Comment on above:Performed By: #### SEDR ####[facility] Cjiwpyvbzi7537[address] [place], [place] [address]Dr. Yilan ChangTYPE AND SCREENon 11-29-2022 TYPE AND SCREENNegativeSelect Medical Specialty Hospital - Southeast OhioComment on above:Performed By: #### TNS ####[facility] Cvxwhvotln4819[address] [place], [place] [address]Dr.Kalie BessCBC W MANUAL DIFFon 45-30-1712NSOIBFOMLIJIJWJFKBGollryUlx Bellevue HospitalComment on above:Performed By: #### CBCMAN ####[facility] Ucngrukftw3908[address] [place], [place] [address]Dr. Shayylan Bess ATYPICAL LYMPH #0.37 103/ulSelect Medical Specialty Hospital - Southeast OhioComment on above:Performed By: #### CBCMAN ####[facility] Fxpnlmlfhh601[address] [place], [place] [address]Dr. Yilan ChangATYPICAL LYMPH %2 %NormalSalem City HospitalComment on above:Performed By: #### CBCMAN ####[facility] Gcyikvgmfm9555[address] [place], [place] [address]Dr. Shayylan ChangBAND #0.6 103/ulCritically high 0.0-0.3TGalion HospitalComment on above:Performed By: #### CBCMAN ####[facility] Shnkobflki2091[address] [place], [place] [address]Dr. Yilan ChangBAND %3 %Normal0-5The [facility] Medical CenterComment on above:Performed By: #### CBCMAN ####[facility] [address]vrpdfqhb[address] [place] [address]Dr. Yilan ChangBASOM #0.00 103/ulNormal0.00-0.10The [facility] Comment on above:Performed By: #### CBCMAN ####[facility] Doledtycck[address] [place], [place] [address]Dr. Yilan ChangBASOM %0.0 %Critically low 0.2-2.0The Railroad HospitalComment on above:Performed By: #### CBCMAN ####[facility] Rsawbbrmnn221310 [address] [place], [place] [address]Dr. Yilan ChangBLAST #NormalThe [facility] Medical CenterComment on above:Performed By: #### CBCMAN ####[facility] Xhkkgnslsj1676[address] [place], [place] [address]Dr. Yilan ChangBLAST %NormalThe Railroad HospitalComment on above:Performed By: #### CBCMAN ####[facility] Rspgzveufr9942[address] [place], [place] [address]Dr. Yilan ChangCORRECTED WBCNormal4.0-11.0The [facility] Medical CenterComment on above:Performed By: #### CBCMAN ####[facility] Xmfsohkuga6556[address] [place], [place] [address]Dr. Yilan ChangEOS #0.56 103/ulNormal0.00-0.70The [facility] CenterComment on above:Performed By: #### CBCMAN ####[facility] Jgmkzujimm6038[address] [place], [place] [address]Dr. Yilan ChangEOS% 3.0 %Normal0.9-7.0The Railroad HospitalComment on above:Performed By: #### CBCMAN ####[facility] Hdbfflwqtu6529[address] [place], [place] [address]Dr. Yilan IoxkjOXC33.8 %Critically low36.0-48.0The [facility] CenterComment on above:Performed By: #### CBCMAN ####[facility] Iisstngagn2665[address] [place], [place] [address]Dr. Kalie BessHGB8.9 g/dlCritically low12.0-16.0 The Railroad HospitalComment on above:Performed By: #### CBCGABRIELLA ####[facility] Dwxzhadjjp8827[address] [place], [place] [address]Dr. Kalie Bess HYPOCHROMASIA1+NormalThe Railroad HospitalComment on above:Performed By: #### CBCGABRIELLA ####[facility] Gffiallxpx2982[address] [place], [place] [address]Dr. Kalie BessLYMPHM #2.99 103/ulNormal1.20-3.80The [facility] Comment on above:Performed By: #### CBCGABRIELLA ####[facility] Uwesiiyfzq035[address] [place], [place] [address]Dr. Kalie BessLYMPHM%16.0 %Critically low 20.5-60.0The [facility] Medical CenterComment on above:Performed By: #### CBCGABRIELLA ####[facility] Frepecfunb3107[address] [place], [place] [address]Dr. Kalie BessMCH28.8 upScqbxm64.7-34.0The Railroad HospitalComment on above: Performed By: #### CBCGABRIELLA ####[facility] Zysqyhfhmk1081[address] [place], [place] [address]Dr. Kalie BessMCHC32.0 g/qkFecjvy43.9-35.2The [facility] CenterComment on above:Performed By: #### CBCMAN ####[facility] Rpfaitvnnn6585[address] [place], [place] [address]Dr. Kalie BessMCV 90.0 iXHdcwnf96.0-99.0The Railroad HospitalComment on above:Performed By: #### CBCMAN ####[facility] Aqrsszmiol0141[address] [place], [place] [address]Dr. Kalie ChangMETAMYELOCYTE #NormalThe Railroad HospitalComment on above: Performed By: #### CBCGABRIELLA ####[facility] Atcyksbrdr172210 [address] [place], [place] [address]Dr. Kalie ChangMETAMYELOCYTE %NormalThe Railroad HospitalComment on above:Performed By: #### CBCMAN ####[facility] Apjskyduoc[address] [place] [address]Dr. Yilan ChangMONOM#0.94 103/ulCritically high0.30-0.80The Railroad HospitalComment on above:Performed By: #### CBCMAN ####[facility] Cjfrlabzbh2935 [place] [address]Dr. Yilan ChangMONOM%5.0 %Normal1.7-12.0The Railroad HospitalComment on above:Performed By: #### CBCGABRIELLA ####[facility] Saehinufxs99[address] [place] [address]Dr. Yilan FsldvXLI66.4 fLNormal9.5-13.5The [facility] CenterComment on above:Performed By: #### CBCGABRIELLA ####[facility] Xnssrgzppb1896[address] [place], [place] [address]Dr. Yilan Bess MYELOCYTE #NormalThe [facility] Medical CenterComment on above:Performed By: #### CBCGABRIELLA ####[facility] Pgwauaimxw7498[address] [place], [place] [address]Dr. Yilan ChangMYELOCYTE %NormalThe [facility] Medical CenterComment on above:Performed By: #### CBCGABRIELLA ####[facility] Mhobxagnle6149[address] [place], [place] [address]Dr. Yilan ChangNRBCNormalThe [facility] CenterComment on above:Performed By: #### CBCGABRIELLA ####[facility] Tibqldqmfc9860[address] [place], [place] [address]Dr. Yilan JxbktPSI445 103/fcJcakes723-477Ufu Railroad HospitalComment on above:Performed By: #### CBCMAN ####[facility] Axaaveoahx3214[address] [place], [place] [address]Dr. Yilan ChangRBC3.09 106/ulCritically low 4.20-5.40The [facility] CenterComment on above:Performed By: #### CBCMAN ####[facility] Xdwnakjjcb216[address] [place], [place] [address]Dr. Yilan XhhvfKHA40.6 %Mbhaok10.0-15.0The [facility] Systemment on above: Performed By: #### CBCMAN ####[facility] Fzbsrzokoe513[address] [place], [place] [address]Dr. Kalie BessSEG #13.28 103/ulCritically high 1.40-6.50The [facility] Systemment on above:Performed By: #### CBCMAN ####[facility] Shyjllptwf667[address] [place], [place] [address]Dr. Kalie BessSEG %71.0 %Posfso69.0-75.0The [facility] on above: Performed By: #### CBCMAN ####[facility] Bobrfcvunt330[address] [place], [place] [address]Dr. Kalie BessWBC18.7 103/ulCritically high4.0-11.0 The [facility] on above:Performed By: #### CBCMAN ####[facility] Vylencmeps78101[address] [place], [place] [address]Dr. Kalie ChangCRPon 99-44-9594QHU0.6 mg/dLCritically high<=1.0The [facility] on above: Performed By: #### CMP, CRP ####[facility] Rnejbsnnmj6542[address] [place], [place] [address]Dr. roxie BessCULTURE ANAEROBICon 21-58-1659CTFGIHS ANAEROBICCulture Observations: NO GROWTH OF ANAEROBES AT 72 HOURS.NormalThe [facility] on above: Performed By: #### ANACX ####[facility] Oadkfboqnb3033[address] [place], [place] [address]Dr. Kalie ChangCULTURE OTHERon 98-13-5741ANMQADO OTHER Culture Observations: NO GROWTH OF AEROBES AT 48 HOURS.NormalCent[place] on above: Performed By: #### OTHCX ####[facility] Ngwjbdalad0411[address] [place], [place] [address]Dr. Kalie BessGRAM STAINon 34-07-5521OKAYIHVWXP ORGANISMS OBSERVEDNormalThe [facility] CenterComment on above:Performed By: #### GSTAIN ####[facility] Sekqyjlcfn213[address] [place], [place] [address]Dr. Yilan ChangDIPHTHEROIDSCleveland Clinic Luther[facility] Hospital HospitalComment on above: Performed By: #### GSTAIN ####[facility] Cqfzarsppd5[address] [place] [address]Dr. Yilan ChangEPITHELIALSFEMagruder Hospital HospitalComment on above:Performed By: #### GSTAIN ####[facility] Levordunzu99[address] [place] [address]Dr. Yilan ChangFUNGAL ELEMENTSCleveland Clinic Lutheran Hospital HospitalComment on above:Performed By: #### GSTAIN ####[facility] Nnmzzwcggq160[address] [place], [place] [address]Dr. Yilan ChangGRAM NEG [facility] HospitalComment on above:Performed By: #### GSTAIN ####[facility] Nabzorysvo744[address] [place], [place] [address]Dr. Yilan ChangGRAM NEG DIPPLOCOCCICleveland Clinic Lutheran Hospital HospitalComment on above:Performed By: #### GSTAIN ####[facility] Brskigdhbe55[address] [place] [address]Dr. Yilan ChangGRAM POS [facility] HospitalComment on above:Performed By: #### GSTAIN ####[facility] Yqqwuczqhz234[address] [place], [place] [address]Dr. Yilan ChangGRAM POSITIVE COCCMercy Health St. [facility] HospitalComment on above:Performed By: #### GSTAIN ####[facility] Lbgmumjirq960[address] [place], [place] [address]Dr. Yilan ChangGRAM STAIN SOURCEl. breast abcessCleveland Clinic Lutheran Hospital HospitalComment on above:Performed By: #### GSTAIN ####[facility] Pxjhpwuwus107[address] [place], [place] [address]Dr. Yilan ChangGS_DIPTHCleveland Clinic Lutheran Hospital HospitalComstraith hospital for special surgery on above:Performed By: #### GSTAIN ####[facility] Hbcmnwtkfy424[address] [place], [place] [address]Dr. Yilan ChangWBCRARENormal [facility] City HospitalComment on above:Performed By: #### GSTAIN ####[facility] Rmpdwxbcdk[address] [place] [address]Dr. Kalie BessPOINT OF CARE GLUCOSEon 73-36-1823Ltmicyl [Mass/Vol]151 mg/dLCritically enfc75-614Tak [facility] CenterComment on above:Performed By: #### POCGLUC ####[facility] Jzeonjooaq9957[address] [place], [place] [address]Dr. Kalie Bess Glucose [Mass/Vol]159 mg/dLCritically vcos53-261Zxp Railroad HospitalComment on above:Performed By: #### POCGLUC ####[facility] Aokwghbqyu584[address] [place], [place] [address]Dr. Kalie ChangPROF 14(COMP METB)on 86-58-8255Wjhxumj [Mass/Vol]1.7 g/dLCritically low3.4-5.0The [facility] CenterComment on above: Performed By: #### CMP, CRP ####[facility] Vjfsbqhezb9024[address] [place], [place] [address]Dr. Kalie ChangAlbumin/Globulin [Mass ratio]0.4 {ratio}NormalThe [facility] Medical CenterComment on above:Performed By: #### CMP, CRP ####[facility] Muuncgabao5563[address] [place], [place] [address]Dr. Kalie ChangALP [Catalytic activity/Vol]133 U/LCritically vvis27-386Xfg [facility] CenterComment on above:Performed By: #### CMP, CRP ####[facility] Emjwwdkrle6729[address] [place], [place] [address]Dr. Kalie ChangALT [Catalytic activity/Vol]23 U/XLmsxmz97-66Xgl [facility] CenterComment on above:Performed By: #### CMP, CRP ####[facility] Rnpvislzog6537[address] [place], [place] [address]Dr. Kalie BessAnion gap [Moles/Vol]9.3 mmol/LNormalThe [facility] CenterComment on above:Performed By: #### CMP, CRP ####[facility] Ehioabucqf9405[address] [place], [place] [address]Dr. Yilan ChangAST [Catalytic activity/Vol]17 U/HGsxrpb43-69Uuv [facility] CenterComment on above:Performed By: #### CMP, CRP ####[facility] Ncobatufow2185[address] [place], [place] [address]Dr. Yilan ChangBilirubin [Mass/Vol]0.3 mg/dLNormal0.2-1.0The [facility] CenterComment on above:Performed By: #### CMP, CRP ####[facility] Vyjkhesmfh4518[address] [place], [place] [address]Dr. Yilan ChangCalcium [Mass/Vol]8.4 mg/dLCritically low8.5-10.1The [facility] on above: Performed By: #### CMP, CRP ####[facility] Zzzjigjzrl4458[address] [place], [place] [address]Dr. Yilan ChangChloride [Moles/Vol]104 mmol/LNormal 98-107The [facility] CenterComstraith hospital for special surgery on above:Performed By: #### CMP, CRP ####[facility] Rcvptspcga657[address] [place], [place] [address]Dr. Yilan ChangCO2 [Moles/Vol]29.2 mmol/HUzxamm54.0-32.0The [facility] CenterComstraith hospital for special surgery on above:Performed By: #### CMP, CRP ####[facility] Czhvptifje3846[address] [place], [place] [address]Dr. Yilan ChangCreatinine [Mass/Vol]1.12 mg/dL Critically high0.55-1.02The [facility] on above:Performed By: #### CMP, CRP ####[facility] Ttmkvmbglu4365[address] [place], [place] [address]Dr. Yilan ChangEGFR-AF PAKISTANI>60Normal>=60The [facility] CenterComstraith hospital for special surgery on above:Performed By: #### CMP, CRP ####[facility] Cwqmfmpspg4286[address] [place], [place] [address]Dr. Yilan ChangEGFR-NON AF SDDRSHST48 mL/min/1.82a9Szybfssula low>=60The [facility] on above:Performed By: #### CMP, CRP ####[facility] K[address]cftpnrj28[address] [place] [address]Dr. Yilan ChangGlobulin (S) [Mass/Vol]4.5 g/dLNoMadison HealthComment on above:Performed By: #### CMP, CRP ####[facility] Yxmhnpkxhf8728[address] [place], [place] [address]Dr. Yilan ChangGlucose [Mass/Vol]85 mg/bPRsjfrq74-113Ypq [facility] CenterComment on above:Performed By: #### CMP, CRP ####[facility] Guisiskzfk5339[address] [place], [place] [address]Dr. Yilan ChangPotassium [Moles/Vol]3.5 mmol/LNormal3.5-5.1The [facility] CenterComment on above:Performed By: #### CMP, CRP ####[facility] Dtskefxblj9563[address] [place], [place] [address]Dr. Yilan Bess Protein [Mass/Vol]6.2 g/dLCritically low6.4-8.2The [facility] CenterComment on above:Performed By: #### CMP, CRP ####[facility] Etydbgmxcf833[address] [place], [place] [address]Dr. Yilan ChangSodium [Moles/Vol]139 mmol/LNormal 136-145The [facility] CenterComment on above:Performed By: #### CMP, CRP ####[facility] Ssbolgvvlx79[address] [place], [place] [address]Dr. Yilan ChangUrea nitrogen [Mass/Vol]12.0 mg/dLNormal7.0-18.0The [facility] Comment on above:Performed By: #### CMP, CRP ####[facility] Htsvhjfikm1681[address] [place], [place] [address]Dr. Yilan ChangUrea nitrogen/Creatinine [Mass ratio]10.7 mg/mgNoMadison HealthComment on above:Performed By: #### CMP, CRP ####[facility] Yiedgqljfb3685[address] [place], [place] [address]Dr. Yilan ChangSED RATE WESTERGRENon 00-63-2709BIQ RATE>130Critically high<=30The [facility] CenterComment on above:Performed By: #### SEDR ####[facility] Vdhyrzwban1217[address] [place], [place] [address]Dr. Kalie BessCBC AUTO DIFFon 73-87-6084TQHI #0.1 103/ulNormal0.0-0.1The [facility] CenterComment on above:Performed By: #### CBC ####[facility] Faivnmfhar1912[address] [place], [place] [address]Dr.Kalie BessBasophils/100 WBC (Bld)0.6 %Normal0.2-2.0The [facility] CenterComment on above:Performed By: #### CBC ####[facility] Sguwqehutd7268[address] [place], [place] [address]Dr.Shayylan ChangEO #0.5 103/ulNormal0.0-0.7The [facility] CenterComment on above:Performed By: #### CBC ####[facility] Gmtrwilkxh6249[address] [place], [place] [address]Dr.Kalie ChangEosinophils/100 WBC (Bld)2.8 %Normal 0.9-7.0The [facility] CenterComment on above:Performed By: #### CBC ####[facility] Lqcabjyfap4285[address] [place], [place] [address]Dr.Kalie Bess Erythrocyte distribution width (RBC) [Ratio]14.1 %Lwwbrx33.0-15.0The [facility] CenterComment on above:Performed By: #### CBC ####[facility] Pbinlbjmcw2371[address] [place], [place] [address]Dr.Kalie BessHematocrit (Bld) [Volume fraction]27.3 %Critically low36.0-48.0The [facility] CenterComment on above:Performed By: #### CBC ####[facility] Hikxknjslt1622[address] [place], [place] [address]Dr.Kalie BessHemoglobin (Bld) [Mass/Vol]8.4 g/dL Critically low12.0-16.0The [facility] CenterComment on above:Performed By: #### CBC ####[facility] Nvevgxneaw[address] [place] [address]Dr. Kalie BessIG #1.53 10e3/ulCritically high0.00-0.03The [facility] CenterComment on above:Performed By: #### CBC ####[facility] Tdrxxldiuq1213 [place] [address]Dr.Kalie BessIG %8.9 %Critically high0.0-0.5The [facility] CenterComment on above:Performed By: #### CBC ####[facility] Qvziemceki15[address] [place] [address]Dr.Kalie BessLYMPH #3.8 103/ulNormal1.2-3.8The [facility] CenterComment on above:Performed By: #### CBC ####[facility] Ihfrqshixt4365[address] [place], [place] [address]Dr. Kalie BessLymphocytes/100 WBC (Bld)21.8 %Ztdgge03.5-60.0The [facility] Comment on above:Performed By: #### CBC ####[facility] Oxlouvgorq8834[address] [place], [place] [address]Dr.Kalie BessMANUAL DIFF REQNONormalThe [facility] CenterComment on above:Performed By: #### CBC ####[facility] Eucepfxeie028[address] [place], [place] [address]Dr.Kalie BessUNITED [facility] (RBC) [Entitic mass]29.2 lgAtjzvg47.7-34.0The [facility] CenterComment on above: Performed By: #### CBC ####[facility] Ipunthyeil2698[address] [place], [place] [address]Dr.Kalie BessHC (RBC) [Mass/Vol]30.8 g/dLNormal 29.9-35.2The [facility] CenterComment on above:Performed By: #### CBC ####[facility] Cvgatwmjal2882[address] [place], [place] [address]Dr. Kalie BessV (RBC) [Entitic vol]94.8 sEOiroza57.0-99.0The [facility] Comment on above:Performed By: #### CBC ####[facility] Pccsxwjzai[address] [place] [address]Dr.Kalie BessMONO #1.3 103/ulCritically high0.3-0.8The [facility] CenterComment on above:Performed By: #### CBC ####[facility] Jgmmmguojp0980 [place] [address]Dr. Yilan ChangMonocytes/100 WBC (Bld)7.7 %Normal1.7-12.0The [facility] Comment on above:Performed By: #### CBC ####[facility] Yftrtwxkki2720 [place] [address]Dr.Shayylan ShahriarNEUT #10.0 103/ulCritically high1.4-6.5The [facility] CenterComment on above:Performed By: #### CBC ####[facility] Epmpqhmsdy6366[address] [place], [place] [address]Dr. Yilan ChangNeutrophils/100 WBC (Bld)58.2 %Tnmaxl10.0-75.0The [facility] Comment on above:Performed By: #### CBC ####[facility] Vpapeflsis9658[address] [place], [place] [address]Dr.Kalie BessPlatelet mean volume (Bld) [Entitic vol]11.2 fLNormal9.5-13.5The [facility] CenterComment on above: Performed By: #### CBC ####[facility] Xtnindzqmy0585[address] [place], [place] [address]Dr.Yilan DzvmaASA098 103/juGillxc472-965Gai [facility] CenterComment on above:Performed By: #### CBC ####[facility] Yriukfsmfj4896 [place] [address]Dr.Shayylan ChangRBC2.88 106/ul Critically low4.20-5.40The [facility] CenterComment on above:Performed By: #### CBC ####[facility] Ytuhhemtun80[address] [place], [place] [address]Dr. Shayylan DbwutQHW76.2 103/ulCritically high4.0-11.0The [facility] CenterComment on above:Performed By: #### CBC ####[facility] Bhytqfqhyh37[address] [place] [address]Dr.Yilan ChangCRPon 53-80-7183VIZ1.4 mg/dLCritically high<=1.0The [facility] CenterComment on above:Performed By: #### CRP, CMP ####[facility] Ykyyvumebs[address]76[address] [place], [place] [address]Dr. Shayylan ChangPOINT OF CARE GLUCOSEon 10-92-5622Zhujypd [Mass/Vol]379 mg/dL Critically gfwl44-591Ywp [facility] CenterComment on above:Performed By: #### POCGLUC ####[facility] Hfvxbyoqpm9817[address] [place], [place] [address]Dr. Yilan ChangGlucose [Mass/Vol]232 mg/dLCritically jach64-939Hsy [facility] CenterComment on above:Performed By: #### POCGLUC ####[facility] Qzwmqjbsrg426[address] [place], [place] [address]Dr. Yilan ChangGlucose [Mass/Vol]216 mg/dLCritically nmip27-195Fdb [facility] CenterComment on above: Performed By: #### POCGLUC ####[facility] Wvgfcwrils0464[address] [place], [place] [address]Dr. Yilan ChangGlucose [Mass/Vol]249 mg/dLCritically zobi09-382Khi [facility] CenterComment on above:Performed By: #### POCGLUC ####[facility] Ybstwwkcfu[address] [place], [place] [address]Dr. Shayylan ChangPROF 14(COMP METB)on 91-99-4116Wwcksrd [Mass/Vol]1.6 g/dLCritically low3.4-5.0The [facility] CenterComment on above:Performed By: #### CRP, CMP ####[facility] Yzzaqeumbm597[address] [place], [place] [address]Dr. Shayylan ChangAlbumin/Globulin [Mass ratio]0.3 {ratio}NormalThe [facility] Comment on above:Performed By: #### CRP, CMP ####[facility] Dlnwwultkq6[address] Main StreetBellevue, [place] [address]Dw. Yilan ChangALP [Catalytic activity/Vol]147 U/LCritically edfp50-115Nyf [facility] CenterComment on above: Performed By: #### CRP, CMP ####[facility] Ectdorklkz6591[address] [place], [place] [address]Dr. Yilan ChangALT [Catalytic activity/Vol]25 U/L Irohoo85-98Mwi [facility] CenterComment on above:Performed By: #### CRP, CMP ####[facility] Bgtydbqiun[address] [place], [place] [address]Dr. Yilan ChangAnion gap [Moles/Vol]9.9 mmol/LNormalThe [facility] CenterComment on above:Performed By: #### CRP, CMP ####[facility] Fvxruhepui717[address] [place], [place] [address]Dr. Yilan ChangAST [Catalytic activity/Vol]16 U/L Aalkvh44-47Upd [facility] CenterComment on above:Performed By: #### CRP, CMP ####[facility] Lfdrdtkvqs4184[address] [place], [place] [address]Dr. Yilan ChangBilirubin [Mass/Vol]0.1 mg/dLCritically low0.2-1.0The [facility] CenterComment on above:Performed By: #### CRP, CMP ####[facility] Fnurovjljq7248[address] [place], [place] [address]Dr. Yilan ChangCalcium [Mass/Vol]8.2 mg/dLCritically low8.5-10.1The [facility] CenterComment on above: Performed By: #### CRP, CMP ####[facility] Demwmzgbgx839[address] [place], [place] [address]Dr. Yilan ChangChloride [Moles/Vol]101 mmol/LNormal 98-107The [facility] CenterComment on above:Performed By: #### CRP, CMP ####[facility] Dbilczrkcw1664[address] [place], [place] [address]Dr. Yilan ChangCO2 [Moles/Vol]27.1 mmol/TMfjadm47.0-32.0The [facility] CenterComment on above:Performed By: #### CRP, CMP ####[facility] [address]keh[address] [place] [address]Dr. Kalie BessCreatinine [Mass/Vol]1.16 mg/dL Critically high0.55-1.02The [facility] CenterComment on above:Performed By: #### CRP, CMP ####[facility] Peumvorxwp9675[address] [place], [place] [address]Dr. Yilan ChangEGFR-AF FMQMYNUK75 mL/min/1.03r0Pmuzgb>=60The [facility] CenterComment on above:Performed By: #### CRP, CMP ####[facility] Bugfbtwono0827[address] [place], [place] [address]Dr. Yilan ChangEGFR-NON AF DAPUQIJX91 mL/min/1.31y0Szudzwjkgf low>=60The [facility] Systemment on above: Performed By: #### CRP, CMP ####[facility] Ynvrpgbece0679[address] [place], [place] [address]Dr. Kalie ChangGlobulin (S) [Mass/Vol]4.7 g/dLNormal The [facility] CenterComment on above:Performed By: #### CRP, CMP ####[facility] Zhwiaxabqo7927[address] [place], [place] [address]Dr. Kalie Bess Glucose [Mass/Vol]281 mg/dLCritically rycw59-488Akr [facility] Systemment on above:Performed By: #### CRP, CMP ####[facility] Lkjzjamana9694[address] [place], [place] [address]Dr. Kalie ChangPotassium [Moles/Vol]4.0 mmol/LNormal 3.5-5.1The [facility] CenterComment on above:Performed By: #### CRP, CMP ####[facility] Lmjjvsrmhz9387[address] [place], [place] [address]Dr. Shayylan ChangProtein [Mass/Vol]6.3 g/dLCritically low6.4-8.2The [facility] Comment on above:Performed By: #### CRP, CMP ####[facility] Cnrjlrfxoz412[address] [place], [place] [address]Dr. Kalie ChangSodium [Moles/Vol]134 mmol/LCritically bgq684-899Sbc Sarita HospitalComment on above: Performed By: #### CRP, CMP ####[facility] [address]zhjkgluh[address] [place] [address]Dr. Yilan ChangUrea nitrogen [Mass/Vol]13.0 mg/dL Normal7.0-18.0The [facility] CenterComment on above:Performed By: #### CRP, CMP ####[facility] Efmwwcgtkg7035[address] [place], [place] [address]Dr. Yilan ChangUrea nitrogen/Creatinine [Mass ratio]11.2 mg/mgNormSelect Medical Specialty Hospital - TrumbullComment on above:Performed By: #### CRP, CMP ####[facility] Wbtlvckpdr5095[address] [place], [place] [address]Dr. Yilan ChangSED RATE WESTERGRENon 26-05-8666EJW RATE>130Critically high<=30The [facility] Comment on above:Performed By: #### SEDR ####[facility] Tzkwndnmte9755[address] [place], [place] [address]Dr. Yilan ChangUS BREAST LEFT LIMITEDon 92-90-2905NM BREAST LEFT Luther[facility] HospitalCB W MANUAL DIFFon 27-39-7321XZHOXLVO LYMPH #NormalSalem City HospitalComstraith hospital for special surgery on above:Performed By: #### CBCMAN ####[facility] Odvlbpjuwg783[address] [place], [place] [address]Dr. Yilan ChangATYPICAL LYMPH %NormalSalem City HospitalComment on above:Performed By: #### CBCMAN ####[facility] Kojcepqujc726[address] [place], [place] [address]Dr. Yilan ChangBAND #0.2 103/ulNormal0.0-0.3The [facility] CenterComment on above:Performed By: #### CBCMAN ####[facility] Gxgwlwkiqr8206[address] [place], [place] [address]Dr. Yilan ChangBAND %1 %Normal0-5The [facility] CenterComment on above:Performed By: #### CBCMAN ####[facility] Mstddaxzie912710 [address] [place], [place] [address]Dr. Yilan ChangBASOM #0.00 103/ulNormal0.00-0.10The Railroad HospitalComment on above:Performed By: #### CBCMAN ####[facility] Abenjwhkeb207[address] [place], [place] [address]Dr. Yilan ChangBASOM %0.0 %Critically low0.2-2.0The [facility] HospitalComment on above:Performed By: #### CBCMAN ####[facility] Kvnfiocslq646[address] [place], [place] [address]Dr. Yilan ChangBLAST #NormalThe Railroad HospitalComment on above:Performed By: #### CBCMAN ####[facility] Mgvlqxecbb2110[address] [place], [place] [address]Dr. Yilan ChangBLAST %NormalThe [facility] Medical CenterComment on above:Performed By: #### CBCMAN ####[facility] Mmubjoblkp5581[address] [place], [place] [address]Dr. Yilan ChangCORRECTED WBCNormal4.0-11.0The [facility] CenterComment on above:Performed By: #### CBCMAN ####[facility] Lrwuzcsbch5267[address] [place], [place] [address]Dr. Yilan ChangEOS #0.17 103/ulNormal0.00-0.70The [facility] CenterComment on above:Performed By: #### CBCMAN ####[facility] Efcquxjoqi087[address] [place], [place] [address]Dr. Yilan ChangEOS% 1.0 %Normal0.9-7.0The [facility] CenterComment on above:Performed By: #### CBCMAN ####[facility] Zoksupqbsq057[address] [place], [place] [address]Dr. Yilan EecsjZHD93.0 %Critically low36.0-48.0The [facility] CenterComment on above:Performed By: #### CBCMAN ####[facility] Fzfxdvhqli0989[address] [place], [place] [address]Dr. Yilan ChangHGB8.9 g/dlCritically low12.0-16.0 The [facility] HospitalComment on above:Performed By: #### CBCMAN ####[facility] Rogpmfdceo[address] [place] [address]Dr. Kalie Bess LYMPHM #1.74 103/ulNormal1.20-3.80The [facility] CenterComment on above: Performed By: #### CBCGABRIELLA ####[facility] Nvznvzlvqx65[address] [place] [address]Dr. Kalie BessLYMPHM%10.0 %Critically low20.5-60.0The [facility] CenterComment on above:Performed By: #### CBCGABRIELLA ####[facility] Wuhaqqiuwg[address] [place] [address]Dr. Kalie [facility] for IncurablesH 28.3 jzKshaiw88.7-34.0The [facility] CenterComment on above:Performed By: #### CBCGABRIELLA ####[facility] Qwhxwzxyui0147[address] [place], [place] [address]Dr. Kalie BessMCHC30.7 g/pnTsvetr77.9-35.2The [facility] CenterComment on above:Performed By: #### CBCGABRIELLA ####[facility] Jasbgqwoef5576[address] [place], [place] [address]Dr. Kalie BessMCV92.1 gCYbdtlr76.0-99.0The [facility] CenterComment on above:Performed By: #### CBCMAN ####[facility] Vvbrzquyno4112[address] [place], [place] [address]Dr. Shayylan ChangMETAMYELOCYTE #NormalThe [facility] CenterComstraith hospital for special surgery on above:Performed By: #### CBCMAN ####[facility] Vrdnywynjc[address] [place] [address]Dr. Shayylan ChangMETAMYELOCYTE %NormalThe [facility] CenterComment on above:Performed By: #### CBCMAN ####[facility] Fkbbpxvgwd168[address] [place], [place] [address]Dr. Shayylan ChangMONOM#0.87 103/ulCritically high0.30-0.80The [facility] CenterComment on above:Performed By: #### CBCMAN ####[facility] Hctjobsdpb6957[address] [place], [place] [address]Dr. Shayylan ChangMONOM%5.0 % Normal1.7-12.0The [facility] CenterComment on above:Performed By: #### CBCGABRIELLA ####[facility] Szwwfeadsl7[address] [place] [address]Dr. Kalie EcfzoVKX39.5 fLNormal9.5-13.5The [facility] CenterComment on above: Performed By: #### CBCGABRIELLA ####[facility] Ylumohcznv14[address] [place] [address]Dr. Yilan ChangMYELOCYTE #0.3 103/ulCleveland Clinic Lutheran Hospital HospitalComment on above:Performed By: #### CBCMAN ####[facility] Mfaxtnaffm[address] [place], [place] [address]Dr. Yilan ChangMYELOCYTE %2 % NormalThe Railroad HospitalComment on above:Performed By: #### CBCGABRIELLA ####[facility] Kspdqgzkti0611[address] [place], [place] [address]Dr. Yilan ChangNRBCNoMadison HealthComment on above:Performed By: #### CBCGABRIELLA ####[facility] Xdxjdiyzlc4[address] [place], [place] [address]Dr. Yilan KssdsKIU281 103/qvCysjgg875-503Ncf [facility] CenterComment on above:Performed By: #### CBCGABRIELLA ####[facility] Huumaqbnqy9[address] [place], [place] [address]Dr. Yilan ChangRBC3.15 106/ulCritically low4.20-5.[address] [facility] CenterComment on above:Performed By: #### CBCMAN ####[facility] Fczkzziixk94[address] [place], [place] [address]Dr. Yilan ChangRDW 14.4 %Pwyaow73.0-15.0The [facility] CenterComment on above:Performed By: #### CBCMAN ####[facility] Jobbanlwsf1203[address] [place], [place] [address]Dr. Yilan ChangSEG #14.09 103/ulCritically high1.40-6.50The [facility] CenterComment on above:Performed By: #### CBCMAN ####[facility] [address]uagu[address] [place] [address]Dr. Kalie BessSEG %81.0 % Critically high43.0-75.0The [facility] CenterComment on above:Performed By: #### CBCMAN ####[facility] Rtbjwbemkp98[address] [place] [address]Dr. Kalie BessWBC17.4 103/ulCritically high4.0-11.0The [facility] Comment on above:Performed By: #### CBCMAN ####[facility] Wbthdiiipt697[address] [place], [place] [address]Dr. Kalie ChangCRPon 00-88-1679NFU2.9 mg/dL Critically high<=1.0The [facility] CenterComment on above:Performed By: #### CRP, CMP ####[facility] Fqtabedvoi9[address] [place] [address]Dr. Kalie [facility] HospitalPOINT OF CARE GLUCOSEon 75-46-8691Hcjebqt [Mass/Vol]348 mg/dLCritically hfvo14-348Wfb [facility] CenterComment on above:Performed By: #### POCGLUC ####[facility] Olnkkxnoak2898[address] [place], [place] [address]Dr. Kalie ShahriarGlucose [Mass/Vol]355 mg/dLCritically xdaz10-954Utg [facility] CenterComment on above:Performed By: #### POCGLUC ####[facility] Ddskwzmvsc74[address] [place] [address]Dr. Kalie Bess Glucose [Mass/Vol]421 mg/dLCritically nrbk64-419Shu [facility] CenterComment on above:Performed By: #### POCGLUC ####[facility] Vavtogwtgh859[address] [place], [place] [address]Dr. Kalie ChangPROF 14(COMP METB)on 30-29-4480Yylcxca [Mass/Vol]1.6 g/dLCritically low3.4-5.0[facility] City HospitalComment on above: Performed By: #### CRP, CMP ####[facility] Tawqvrszux033[address] [place], [place] [address]Dr. Shayyroxie BessAlbumin/Globulin [Mass ratio]0.3 {ratio}NormalThe [facility] CenterComment on above:Performed By: #### CRP, CMP ####[facility] Uquuefitzf1523[address] [place], [place] [address]Dr. Yilan ChangALP [Catalytic activity/Vol]176 U/LCritically drpr90-921Mly [facility] CenterComment on above:Performed By: #### CRP, CMP ####[facility] Saghldukgn5877[address] [place], [place] [address]Dr. Yilan ChangALT [Catalytic activity/Vol]32 U/DZbmeuj71-68Rld [facility] CenterComment on above:Performed By: #### CRP, CMP ####[facility] Ubebqibmyf626[address] [place], [place] [address]Dr. Yilan ChangAnion gap [Moles/Vol]11.2 mmol/LNormalThe [facility] CenterComment on above:Performed By: #### CRP, CMP ####[facility] Aswmlwgrbc6668[address] [place], [place] [address]Dr. Yilan ChangAST [Catalytic activity/Vol]18 U/QFwqkbn98-44Wgz [facility] CenterComment on above:Performed By: #### CRP, CMP ####[facility] Ysylrlobzv5866[address] [place], [place] [address]Dr. Yilan ChangBilirubin [Mass/Vol]0.2 mg/dLNormal0.2-1.0The [facility] CenterComment on above:Performed By: #### CRP, CMP ####[facility] Nmjygfmdso8364[address] [place], [place] [address]Dr. Yilan ChangCalcium [Mass/Vol]8.5 mg/dLNormal8.5-10.1The [facility] HospitalComment on above:Performed By: #### CRP, CMP ####[facility] Edyecickpm8[address] [place], [place] [address]Dr. Yilan ChangChloride [Moles/Vol]102 mmol/LNormal 98-107The [facility] CenterComment on above:Performed By: #### CRP, CMP ####[facility] Xocvszbgjx0978[address] [place], [place] [address]Dr. Yilan ChangCO2 [Moles/Vol]27.7 mmol/QLsrdaj89.0-32.0The [facility] CenterComment on above:Performed By: #### CRP, CMP ####[facility] Xgetsoqzfr7565[address] [place], [place] [address]Dr. Yilan ChangCreatinine [Mass/Vol]1.24 mg/dL Critically high0.55-1.02The [facility] CenterComment on above:Performed By: #### CRP, CMP ####[facility] Huwsfchsoa2482[address] [place], [place] [address]Dr. Yilan ChangEGFR-AF GXVKTZDX95 mL/min/1.76z5Utcijidmmp low>=60The [facility] CenterComment on above:Performed By: #### CRP, CMP ####[facility] Asgfyywrhb4473[address] [place], [place] [address]Dr. Yilan ChangEGFR- NON AF LVYOGOER49 mL/min/1.15k2Luujhnwhcp low>=60The [facility] CenterComment on above:Performed By: #### CRP, CMP ####[facility] Wbkwyvueqp8436[address] [place], [place] [address]Dr. Yilan ChangGlobulin (S) [Mass/Vol]4.6 g/dL NormalThe [facility] CenterComment on above:Performed By: #### CRP, CMP ####[facility] Dnjqsixkic1165[address] [place], [place] [address]Dr. Yilan ChangGlucose [Mass/Vol]279 mg/dLCritically ciab55-070Cag [facility] Comment on above:Performed By: #### CRP, CMP ####[facility] Vdoskvlubi9135[address] [place], [place] [address]Dr. Yilan ChangPotassium [Moles/Vol]3.9 mmol/LNormal3.5-5.1The [facility] CenterComment on above: Performed By: #### CRP, CMP ####[facility] Uvjhqocdmu1866[address] [place], [place] [address]Dr. Yilan ChangProtein [Mass/Vol]6.2 g/dLCritically low6.4-8.2The [facility] CenterComment on above:Performed By: #### CRP, CMP ####[facility] [address]dsi[address] [place] [address]Dr. Yilan ChangSodium [Moles/Vol]137 mmol/AFceixv474-269Uaj [facility] CenterComment on above:Performed By: #### CRP, CMP ####[facility] Zcxlqpsqde978[address] [place], [place] [address]Dr. Yilan ChangUrea nitrogen [Mass/Vol]16.0 mg/dL Normal7.0-18.0The [facility] CenterComment on above:Performed By: #### CRP, CMP ####[facility] Iltxzxpwzm8054[address] [place], [place] [address]Dr. Yilan ChangUrea nitrogen/Creatinine [Mass ratio]12.9 mg/mgNormalThe [facility] CenterComment on above:Performed By: #### CRP, CMP ####[facility] Cahqixbexy3449[address] [place], [place] [address]Dr. Yilan ChangSED RATE WESTERGRENon 49-22-2254QCM DJQK683 mm/hrCritically high<=30The [facility] Comment on above:Performed By: #### SEDR ####[facility] Xptwsuizyi260[address] [place], [place] [address]Dr. Yilan ChangCBC AUTO DIFFon 11-25-2022 BASO #0.1 103/ulNormal0.0-0.1The [facility] CenterComment on above:Performed By: #### CBC ####[facility] Ilhbcpbyux6632[address] [place], [place] [address]Dr.Yilan ChangBasophils/100 WBC (Bld)0.6 %Normal0.2-2.0The [facility] CenterComment on above:Performed By: #### CBC ####[facility] Zzpxadslsh6735[address] [place], [place] [address]Dr.Yilan ChangEO #0.6 103/ul Normal0.0-0.7The [facility] CenterComment on above:Performed By: #### CBC ####[facility] Hwpybobleb978[address] [place], [place] [address]Dr. Yilan ChangEosinophils/100 WBC (Bld)4.0 %Normal0.9-7.0The [facility] Comment on above:Performed By: #### CBC ####[facility] Evcbrihocx588[address] [place], [place] [address]Dr.Kalie ChangErythrocyte distribution width (RBC) [Ratio]14.4 %Fwylpv47.0-15.0The [facility] CenterComment on above: Performed By: #### CBC ####[facility] Exdldpxlcq9389[address] [place], [place] [address]Dr.Kalie ChangHematocrit (Bld) [Volume fraction]25.9 % Critically low36.0-48.0The [facility] CenterComment on above:Performed By: #### CBC ####[facility] Dkwwszgnwv6464[address] [place], [place] [address]Dr. Kalie ChangHemoglobin (Bld) [Mass/Vol]8.5 g/dLCritically low12.0-16.0The [facility] CenterComment on above:Performed By: #### CBC ####[facility] Qvkjwzdrib54[address] [place], [place] [address]Dr.Kalie ChangIG #1.05 10e3/ulCritically high0.00-0.03The [facility] CenterComment on above:Performed By: #### CBC ####[facility] Gapkdpebdt199[address] [place], [place] [address]Dr.Kalie ChangIG %6.7 %Critically high0.0-0.5The [facility] CenterComment on above:Performed By: #### CBC ####[facility] Whfqwrtyoh1441[address] [place], [place] [address]Dr.Kalie ChangLYMPH #3.2 103/ulNormal1.2-3.8The [facility] CenterComment on above:Performed By: #### CBC ####[facility] Ihfmbhqtef3796[address] [place], [place] [address]Dr.Kalie ChangLymphocytes/100 WBC (Bld)20.3 %Critically low20.5-60.0The [facility] CenterComment on above: Performed By: #### CBC ####[facility] [address]rmfidhw[address] [place] [address]Dr.Kalie BessMANUAL DIFF REQYESNormalThe [facility] CenterComment on above:Result Comment: Previously reported as: NO On 11/25/2022 06:37 By [id number] By: #### CBC ####[facility] Tnpxrdakri[address] [place] [address]Dr.Kalie ShahriarH (RBC) [Entitic mass]29.0 agSqxfwy23.7-34.0The [facility] HospitalComment on above: Performed By: #### CBC ####[facility] Zwodfuijln2743[address] [place], [place] [address]Dr.Kalie BessHC (RBC) [Mass/Vol]32.8 g/dLNormal 29.9-35.2The [facility] CenterComment on above:Performed By: #### CBC ####[facility] Tirmeiaybf3218[address] [place], [place] [address]Dr. Shayyroxie BessV (RBC) [Entitic vol]88.4 uPIudbnq99.0-99.0The [facility] Comment on above:Performed By: #### CBC ####[facility] Wntmrmpnfa026[address] [place], [place] [address]Dr.Kalie ShahriarMONO #1.3 103/ulCritically high0.3-0.8The [facility] CenterComment on above:Performed By: #### CBC ####[facility] Vtycyiqthh3676[address] [place], [place] [address]Dr. Shayyroxie ChangMonocytes/100 WBC (Bld)8.5 %Normal1.7-12.0The [facility] Comment on above:Performed By: #### CBC ####[facility] Bcbgblvmgk6525[address] [place], [place] [address]Dr.Shayyroxie BessNEUT #9.4 103/ulCritically high1.4-6.5The [facility] CenterComment on above:Performed By: #### CBC ####[facility] Hxwdidgemc6434[address] [place], [place] [address]Dr. Shayyroxie BessNeutrophils/100 WBC (Bld)59.9 %Wcutis11.0-75.0The [facility] Comment on above:Performed By: #### CBC ####[facility] Jdpupszjcb089[address] [place], [place] [address]DrCassieShayyroxie ShahriarPlatelet mean volume (Bld) [Entitic vol]11.7 fLNormal9.5-13.5The [facility] CenterComment on above: Performed By: #### CBC ####[facility] Bovlyzcqtt8[address] [place], [place] [address]DrSin CyrjuORJ399 103/chZbyqwm988-736Ktj [facility] CenterComment on above:Performed By: #### CBC ####[facility] Olclwnkpum07[address] [place], [place] [address]DrSin BessRBC2.93 106/ul Critically low4.20-5.40The [facility] CenterComment on above:Performed By: #### CBC ####[facility] Wgvgajqdob[address] [place], [place] [address]DrCassie BessWBC15.6 103/ulCritically high4.0-11.0The [facility] CenterComment on above:Performed By: #### CBC ####[facility] [address]iikyldvwf[address] [place], [place] [address]DrSin ChangCRPon 97-23-8167ZJS30.0 mg/dLCritically high<=1.0The [facility] CenterComment on above:Performed By: #### CMP, CRP ####[facility] [address]qgtoxyigf65[address] [place], [place] [address]DrCassie [facility] GLUCOSEon 56-61-6372Xhrvuwq [Mass/Vol]187 mg/dL Critically yvnp20-651Srr [facility] CenterComment on above:Performed By: #### POCGLUC ####[facility] Cmvqwcdueu3[address] [place], [place] [address]DrCassie Jade ChangGlucose [Mass/Vol]196 mg/dLCritically icyw17-406Wsn [facility] CenterComment on above:Performed By: #### POCGLUC ####[facility] Sylgiqzqns3537[address] [place], [place] [address]Dr. Yilan ChangGlucose [Mass/Vol]234 mg/dLCritically rqtu36-195Fxc [facility] CenterComment on above: Performed By: #### POCGLUC ####[facility] Rrrmrpuria[address] [place] [address]Dr. Yilan ChangGlucose [Mass/Vol]155 mg/dLCritically crxu49-044Vke [facility] CenterComment on above:Performed By: #### POCGLUC ####[facility] Aivvtcgdmq38[address] [place] [address]Dr. Yilan ChangPROF 14(COMP METB)on 17-61-6211Wccmzef [Mass/Vol]1.6 g/dLCritically low3.4-5.0The [facility] CenterComment on above:Performed By: #### CMP, CRP ####[facility] Frjevedppk3658[address] [place], [place] [address]Dr. Yilan ChangAlbumin/Globulin [Mass ratio]0.4 {ratio}NormalThe [facility] Comment on above:Performed By: #### CMP, CRP ####[facility] Rjhzpnrnam8059[address] [place], [place] [address]Dr. Yilan ChangALP [Catalytic activity/Vol]178 U/LCritically swrf84-784Cfl [facility] CenterComment on above: Performed By: #### CMP, CRP ####[facility] Bfyynogids[address] [place] [address]Dr. Yilan ChangALT [Catalytic activity/Vol]40 U/L Uurgbm77-66Ary [facility] CenterComment on above:Performed By: #### CMP, CRP ####[facility] Izbevcchqe9139[address] [place], [place] [address]Dr. Yilan ChangAnion gap [Moles/Vol]10.6 mmol/LNormalThe [facility] CenterComment on above:Performed By: #### CMP, CRP ####[facility] Ykvivhbhbz9706[address] [place], [place] [address]Dr. Yilan ChangAST [Catalytic activity/Vol]19 U/L Ptkopw99-60Nis [facility] CenterComment on above:Performed By: #### CMP, CRP ####[facility] Vrebdvvved36[address] [place] [address]Dr. Yilan ChangBilirubin [Mass/Vol]0.2 mg/dLNormal0.2-1.0The [facility] Comment on above:Performed By: #### CMP, CRP ####[facility] Auujosqkou5[address] [place] [address]Dr. Yilan ChangCalcium [Mass/Vol]8.7 mg/dLNormal8.5-10.1The [facility] CenterComment on above:Performed By: #### CMP, CRP ####[facility] Zwdoklufym0106[address] [place], [place] [address]Dr. Yilan ChangChloride [Moles/Vol]103 mmol/LNormal 98-107The [facility] CenterComment on above:Performed By: #### CMP, CRP ####[facility] Wlzjxrthng[address] [place], [place] [address]Dr. Yilan ChangCO2 [Moles/Vol]29.3 mmol/KMeiwph54.0-32.0The [facility] CenterComment on above:Performed By: #### CMP, CRP ####[facility] Tavbbtmmup8269[address] [place], [place] [address]Dr. Yilan ChangCreatinine [Mass/Vol]1.35 mg/dL Critically high0.55-1.02The [facility] CenterComment on above:Performed By: #### CMP, CRP ####[facility] Cxkumxqdgt5457[address] [place], [place] [address]Dr. Yilan ChangEGFR-AF SNEZIBDD89 mL/min/1.55g2Vdzujcstit low>=60The [facility] CenterComment on above:Performed By: #### CMP, CRP ####[facility] Htlpvbzpws513[address] [place], [place] [address]Dr. Yilan ChangEGFR- NON AF ZAADVSKZ43 mL/min/1.69l4Wbtulxyvoh low>=60The [facility] CenterComment on above:Performed By: #### CMP, CRP ####[facility] Rjnkrtfdxa4567[address] [place], [place] [address]Dr. Yilan ChangGlobulin (S) [Mass/Vol]4.4 g/dL NormalThe [facility] CenterComment on above:Performed By: #### CMP, CRP ####[facility] Xjwfotzzgz70[address] [place] [address]Dr. Yilan ChangGlucose [Mass/Vol]170 mg/dLCritically cfpz35-677Bnb [facility] Comment on above:Performed By: #### CMP, CRP ####[facility] Dlsobmqupd32[address] [place], [place] [address]Dr. Yilan ChangPotassium [Moles/Vol]3.9 mmol/LNormal3.5-5.1The [facility] CenterComment on above: Performed By: #### CMP, CRP ####[facility] Jqsmseqcgb6934[address] [place], [place] [address]Dr. Yilan ChangProtein [Mass/Vol]6.0 g/dLCritically low6.4-8.2The [facility] CenterComment on above:Performed By: #### CMP, CRP ####[facility] Ymhjievjyx110[address] [place], [place] [address]Dr. Yilan ChangSodium [Moles/Vol]139 mmol/IDaqwic509-953Htm [facility] CenterComment on above:Performed By: #### CMP, CRP ####[facility] Ynqzokynlt9418[address] [place], [place] [address]Dr. Yilan ChangUrea nitrogen [Mass/Vol]18.0 mg/dL Normal7.0-18.0The [facility] CenterComment on above:Performed By: #### CMP, CRP ####[facility] Bwenhmjpdv5556[address] [place], [place] [address]Dr. Yilan ChangUrea nitrogen/Creatinine [Mass ratio]13.3 mg/mgNormalThe [facility] CenterComment on above:Performed By: #### CMP, CRP ####[facility] Rjdflcrrje7522[address] [place], [place] [address]Dr. Yilan ChangSED RATE WESTERGRENon 32-31-0159HOW CNKS689 mm/hrCritically high<=30The [facility] Comment on above:Performed By: #### SEDR ####[facility] Pejeuzdmvi38[address] [place], [place] [address]Dr. Kalie BessCBC W MANUAL DIFFon 26-11-3539WSZJOFGS LYMPH #0.16 103/ulNormalThe Railroad HospitalComment on above:Performed By: #### APOLLO ####[facility] Pxcinyndhy06[address] [place], [place] [address]Dr. Yilan ChangATYPICAL LYMPH %1 %NormalThe Railroad HospitalComment on above:Performed By: #### APLOLO ####[facility] Iiiaeillvw3446[address] [place], [place] [address]Dr. Yilan ChangBAND #0.3 103/ulNormal0.0-0.3The [facility] HospitalComment on above:Performed By: #### APOLLO ####[facility] Tbjjxxrhyt7016[address] [place], [place] [address]Dr. Yilan ChangBAND %2 %Normal0-5The [facility] CenterComment on above: Performed By: #### APOLLO ####[facility] Fcyghgsruq9736[address] [place], [place] [address]Dr. Yilan ChangBASOM #0.00 103/ulNormal0.00-0.10The [facility] CenterComment on above:Performed By: #### APOLLO ####[facility] Mzgkevorrz0939[address] [place], [place] [address]Dr. Yilan ChangBASOM %0.0 %Critically low0.2-2.0The [facility] CenterComment on above:Performed By: #### APOLLO ####[facility] Duupefvsps8086[address] [place], [place] [address]Dr. Yilan ChangBLAST #NormalThe Railroad HospitalComment on above:Performed By: #### APOLLO ####[facility] Fehlzbzhge8117[address] [place], [place] [address]Dr. Yilan ChangBLAST %NormalAdena Fayette Medical Center HospitalComment on above: Performed By: #### CBCGABRIELLA ####[facility] Ujvttkspda7934[address] [place], [place] [address]Dr. Yilan ChangCORRECTED WBCNormal4.0-11.0The [facility] HospitalComment on above:Performed By: #### CBCGABRIELLA ####[facility] Gbmwdxqyck6026 [place], [place] [address]Rk. Yilan ChangEOS #1.42 103/ulCritically high0.00-0.70The [facility] CenterComment on above:Performed By: #### CBCGABRIELLA ####[facility] Ybsayiojok35[address] [place] [address]Dr. Yilan ChangEOS%9.0 %Critically high0.9-7.0The [facility] Comment on above:Performed By: #### CBCGABRIELLA ####[facility] Mpypnxcqoe35[address] [place] [address]Dr. Yilan TtqwcFMW53.8 %Critically low 36.0-48.0The [facility] CenterComment on above:Performed By: #### CBCGABRIELLA ####[facility] Vppifemljr4347 [place] [address]Dr. Yilan ChangHGB9.6 g/dlCritically low12.0-16.0The [facility] CenterComment on above:Performed By: #### CBCGABRIELLA ####[facility] Ikzlrzxteb32[address] [place], [place] [address]Dr. Yilan ChangLYMPHM #2.69 103/ulNormal1.20-3.80The [facility] CenterComment on above:Performed By: #### CBCGABRIELLA ####[facility] Gvkvkhdhwo[address] [place] [address]Dr. Yiroxie Bess LYMPHM%17.0 %Critically low20.5-60.0The [facility] CenterComment on above: Performed By: #### CBCGABRIELLA ####[facility] Rschftngzr7[address] [place], [place] [address]Dr. Shayylan BmaewAXT47.1 kjZqftyp37.7-34.0The [facility] CenterComment on above:Performed By: #### CBCGABRIELLA ####[facility] Urpzsrtopf75[address] [place], [place] [address]Dr. Kalie VbaldZNZS31.5 g/dl Klpftp78.9-35.2The [facility] CenterComment on above:Performed By: #### CBCGABRIELLA ####[facility] Quvvtagqae59[address] [place] [address]Dr. Yilan KjphcCPC23.2 aHDqdnrm95.0-99.0The [facility] CenterComment on above: Performed By: #### CBCGABRIELLA ####[facility] Apdstiiond3287 [place] [address]Dr. Yilan ChangMETAMYELOCYTE #0.0 103/ulNormalThKeenan Private Hospital HospitalComment on above:Performed By: #### CBCGABRIELLA ####[facility] Yyonssgolf[address] [place] [address]Dr. Yilan Bess METAMYELOCYTE %0 %NormalThe [facility] CenterComment on above:Performed By: #### CBCGABRIELLA ####[facility] Ydzroswpbq1307[address] [place], [place] [address]Dr. Yilan ChangMONOM#0.47 103/ulNormal0.30-0.80The [facility] CenterComment on above:Performed By: #### CBCGABRIELLA ####[facility] Aqamvmzpin20[address] [place], [place] [address]Dr. Yilan ChangMONOM%3.0 %Normal1.7-12.0The [facility] CenterComment on above:Performed By: #### CBCGABRIELLA ####[facility] Ztcpdsxqgl664[address] [place], [place] [address]Dr. Yilan ChangMPV 11.5 fLNormal9.5-13.5The [facility] CenterComment on above:Performed By: #### CBCGABRIELLA ####[facility] Hzivpnhkdc67[address] [place], [place] [address]Dr. Yilan ChangMYELOCYTE #NormalThe [facility] CenterComment on above: Performed By: #### CBCGABRIELLA ####[facility] Frwgjrmqth7773[address] [place], [place] [address]Dr. Yilan ChangMYELOCYTE %NormalThe [facility] on above:Performed By: #### CBCGABRIELLA ####[facility] Ifttwrnehn4845[address] [place], [place] [address]Dr. Yilan ChangNRBCNormalThSelect Medical Specialty Hospital - Southeast OhioComment on above:Performed By: #### CBCGABRIELLA ####[facility] Wtovhzqcjt5559 [place], [place] [address]Nr. Shayylan OjbvrQKQ570 103/ul Fwaril722-955Ddp [facility] CenterComstraith hospital for special surgery on above:Performed By: #### CBCMAN ####[facility] Qerefjbbzf6170 [place] [address]Dr. Shayylan ChangRBC3.30 106/ulCritically low4.20-5.40The [facility] CenterComstraith hospital for special surgery on above:Performed By: #### CBCMAN ####[facility] Mapxrotyeb2917 [place] [address]Dr. Shayylan VhwooNWU56.2 %Aloptq46.0-15.0The [facility] CenterComstraith hospital for special surgery on above:Performed By: #### CBCGABRIELLA ####[facility] Qntravlqyy7834[address] [place], [place] [address]Dr. Shayylan ChangSEG #10.74 103/ulCritically high1.40-6.50The [facility] on above:Performed By: #### CBCMAN ####[facility] Gqhmiuhjjh2[address] [place], [place] [address]Dr. Kalie ChangSEG %68.0 %Xmsgpt32.0-75.0The [facility] on above:Performed By: #### CBCMAN ####[facility] Kutusgbnkq4296 [place] [address]Dr. Shayylan CtwmwVGY50.8 103/ulCritically high 4.0-11.0The [facility] CenterComstraith hospital for special surgery on above:Performed By: #### CBCGABRIELLA ####[facility] Yzsgzhempj6[address] [place], [place] [address]Dr. aKlie ChangCRPon 60-48-1132IIH89.2 mg/dLCritically high<=1.0The [facility] CenterComstraith hospital for special surgery on above:Performed By: #### CMP, CRP ####[facility] Vxegcezuzu9867[address] [place], [place] [address]Dr. [facility] GLUCOSEon 78-03-0698Ekqkotr [Mass/Vol]277 mg/dLCritically ogph77-600Lad [facility] CenterComment on above:Performed By: #### POCGLUC ####[facility] Encysairhc35[address] [place] [address]Dr. Yilan ChangGlucose [Mass/Vol]268 mg/dLCritically iekw24-529Sbv [facility] CenterComment on above: Performed By: #### POCGLUC ####[facility] Kzjmnujugt3721 [place] [address]Dr. Yilan ChangGlucose [Mass/Vol]337 mg/dLCritically zyhr48-986Pno [facility] CenterComment on above:Performed By: #### POCGLUC ####[facility] Zovskpchrr0330 [place] [address]Dr. Yilan ChangGlucose [Mass/Vol]366 mg/dLCritically yryk95-881Zoo [facility] Comment on above:Performed By: #### POCGLUC ####[facility] Nndnpnfmrg5117[address] [place], [place] [address]Dr. Yilan ChangPROF 14(COMP METB)on 56-11-9450Tehchgc [Mass/Vol]1.8 g/dLCritically low3.4-5.0[facility] Comment on above:Performed By: #### CMP, CRP ####[facility] Wyvfjndhmy5127[address] [place], [place] [address]Dr. Yilan Bess Albumin/Globulin [Mass ratio]0.4 {ratio}NormalThe [facility] CenterComment on above:Performed By: #### CMP, CRP ####[facility] Jltrbzspjj5940 [place] [address]Dr. Yilan ChangALP [Catalytic activity/Vol]235 U/L Critically kglf02-175Rmw [facility] CenterComment on above:Performed By: #### CMP, CRP ####[facility] Kpurghvecy3374[address] [place], [place] [address]Dr. Yilan ChangALT [Catalytic activity/Vol]60 U/LCritically efgp87-76Tif [facility] CenterComment on above:Performed By: #### CMP, CRP ####[facility] Kdbfzojfnm4906[address] [place], [place] [address]Dr. Yilan ChangAnion gap [Moles/Vol]10.2 mmol/LNormalThe [facility] CenterComment on above:Performed By: #### CMP, CRP ####[facility] Wvsnsiujaa4125[address] [place], [place] [address]Dr. Yilan ChangAST [Catalytic activity/Vol]32 U/HLwkxoo50-41Awq [facility] CenterComment on above:Performed By: #### CMP, CRP ####[facility] Kjdmqjriga6839[address] [place], [place] [address]Dr. Yilan Bess Bilirubin [Mass/Vol]0.3 mg/dLNormal0.2-1.0The [facility] CenterComment on above: Performed By: #### CMP, CRP ####[facility] Vafxdtjsfg1813[address] [place], [place] [address]Dr. Yilan ChangCalcium [Mass/Vol]9.0 mg/dLNormal 8.5-10.1The [facility] CenterComment on above:Performed By: #### CMP, CRP ####[facility] Ayewpgbwld3774[address] [place], [place] [address]Dr. Yilan ChangChloride [Moles/Vol]100 mmol/TLygmks05-380Ifd [facility] Comment on above:Performed By: #### CMP, CRP ####[facility] Hnxsyfgrfs4462[address] [place], [place] [address]Dr. Yilan ChangCO2 [Moles/Vol]29.0 mmol/IRupmnm58.0-32.0The [facility] CenterComment on above: Performed By: #### CMP, CRP ####[facility] Vbpnjgfxjg033[address] [place], [place] [address]Dr. Yilan ChangCreatinine [Mass/Vol]1.21 mg/dL Critically high0.55-1.02The [facility] CenterComment on above:Performed By: #### CMP, CRP ####[facility] Mroyybrjxt4575[address] [place], [place] [address]Dr. Yilan ChangEGFR-AF COVCKPPD56 mL/min/1.87e2Kfuooeawgw low>=60The [facility] CenterComment on above:Performed By: #### CMP, CRP ####[facility] Pynwhpfowi6[address] [place] [address]Dr. Yilan ChangEGFR- NON AF QOHTKERC03 mL/min/1.84e7Ujcxyjwyri low>=60The [facility] CenterComment on above:Performed By: #### CMP, CRP ####[facility] Srgnkgakoq6516[address] [place], [place] [address]Dr. Yilan ChangGlobulin (S) [Mass/Vol]5.0 g/dL NormalThe [facility] CenterComment on above:Performed By: #### CMP, CRP ####[facility] Giaeqqsaic1989[address] [place], [place] [address]Dr. Yilan ChangGlucose [Mass/Vol]339 mg/dLCritically fipm43-042Mom [facility] Comment on above:Performed By: #### CMP, CRP ####[facility] Ekinmuraoj3393[address] [place], [place] [address]Dr. Yilan ChangPotassium [Moles/Vol]4.2 mmol/LNormal3.5-5.1The [facility] CenterComment on above: Performed By: #### CMP, CRP ####[facility] Ypvxuytvgo430[address] [place], [place] [address]Dr. Yilan ChangProtein [Mass/Vol]6.8 g/dLNormal6.4-8.[address] [facility] CenterComment on above:Performed By: #### CMP, CRP ####[facility] Kumvjutpwi4822[address] [place], [place] [address]Dr. Yilan Bess Sodium [Moles/Vol]135 mmol/LCritically lis175-810Zmf [facility] CenterComment on above:Performed By: #### CMP, CRP ####[facility] Olsjshckfn4493[address] [place], [place] [address]Dr. Yilan ChangUrea nitrogen [Mass/Vol]24.0 mg/dL Critically high7.0-18.0The [facility] CenterComment on above:Performed By: #### CMP, CRP ####[facility] Dyblunwmgz4911[address] [place], [place] [address]Dr. Yilan ChangUrea nitrogen/Creatinine [Mass ratio]19.8 mg/mgNormalThe [facility] CenterComment on above:Performed By: #### CMP, CRP ####[facility] Ijurjpxeax5405 [place] [address]Dr. Yilan ChangSED RATE WESTERGRENon 07-90-2851ONJ RATE>130Critically high<=30The [facility] Comment on above:Performed By: #### SEDR ####[facility] Bnwedlpusx77[address] [place], [place] [address]Dr. Yilan ChangUS BREAST LEFT COMPLETEon 52-73-3772EX BREAST LEFT COMPLETENormalThe [facility] CenterXR CHEST 1 Von 32-04-8640KE CHEST [address] [facility] CenterCBC AUTO DIFFon 85-86-7344TZNL #0.1 103/ulNormal0.0-0.1The [facility] CenterComment on above:Performed By: #### CBC ####[facility] Iusjbverdu8313[address] [place], [place] [address]Dr. Yilan ChangBasophils/100 WBC (Bld)0.4 %Normal0.2-2.0The [facility] CenterComment on above:Performed By: #### CBC ####[facility] Ealetpppey5419[address] [place], [place] [address]Dr.Yilan ChangEO #0.7 103/ulNormal0.0-0.7The [facility] CenterComment on above:Performed By: #### CBC ####[facility] Ofezjefxzq7498[address] [place], [place] [address]Dr.Yilan ChangEosinophils/100 WBC (Bld)4.5 %Normal0.9-7.0The [facility] CenterComment on above:Performed By: #### CBC ####[facility] Tnnehpajvp9455[address] [place], [place] [address]Dr.Yilan ChangErythrocyte distribution width (RBC) [Ratio]14.0 %Normal 11.0-15.0The [facility] CenterComment on above:Performed By: #### CBC ####[facility] Zvmokcrxmf3527[address] [place], [place] [address]Dr. Yilan ChangHematocrit (Bld) [Volume fraction]23.8 %Critically low36.0-48.0The [facility] CenterComment on above:Performed By: #### CBC ####[facility] Sscacnpbzj8070 [place] [address]DrSin BessHemoglobin (Bld) [Mass/Vol]8.4 g/dLCritically low12.0-16.0The [facility] HospitalComment on above:Performed By: #### CBC ####[facility] Uaqntpxrts9[address] [place], [place] [address]DrSin BessIG #0.30 10e3/ulCritically high0.00-0.03 The [facility] HospitalComment on above:Performed By: #### CBC ####[facility] Zqsjjtofso0889[address] [place], [place] [address]DrSin BessIG % 2.1 %Critically high0.0-0.5The [facility] HospitalComment on above:Performed By: #### CBC ####[facility] Rekdrvsyyu3196[address] [place], [place] [address]Dr.Kalie BessLYH #2.3 103/ulNormal1.2-3.8The [facility] HospitalComment on above:Performed By: #### CBC ####[facility] Biffjvvpqn4916[address] [place], [place] [address]Dr.Kalie BessLymphocytes/100 WBC (Bld)15.6 % Critically low20.5-60.0The [facility] CenterComment on above:Performed By: #### CBC ####[facility] Zxzfqfgznb0006[address] [place], [place] [address]Dr. Kalie BessMANUAL DIFF REQNONormalThe Railroad HospitalComment on above: Performed By: #### CBC ####[facility] Gttttzopoy[address] [place], [place] [address]DrSin BessUNITED [facility] (RBC) [Entitic mass]29.3 pgNormal 26.7-34.0The [facility] HospitalComment on above:Performed By: #### CBC ####[facility] Uahurqmqol3636[address] [place], [place] [address]Dr. Kalie BessNOR[facility] (RBC) [Mass/Vol]35.3 g/dLCritically high29.9-35.2The [facility] CenterComment on above:Performed By: #### CBC ####[facility] Fmhkceaueu[address] [place], [place] [address]Dr.aKlie BessMCV (RBC) [Entitic vol]82.9 xXCwfglo63.0-99.0The [facility] CenterComment on above: Performed By: #### CBC ####[facility] Quqwngcrwr7789[address] [place], [place] [address]Dr.Kalie ShahriarMONO #1.4 103/ulCritically high0.3-0.[address] [facility] CenterComment on above:Performed By: #### CBC ####[facility] Fgntbqalyq4793[address] [place], [place] [address]Dr.Kalie Bess Monocytes/100 WBC (Bld)9.3 %Normal1.7-12.0The [facility] CenterComment on above: Performed By: #### CBC ####[facility] Moidwwxqio8[address] [place], [place] [address]Dr.Kalie BessNEUT #10.0 103/ulCritically high1.4-6.[address] [facility] CenterComment on above:Performed By: #### CBC ####[facility] Twldkswmro14[address] [place], [place] [address]Dr.Kalie Bess Neutrophils/100 WBC (Bld)68.1 %Gpyfzp99.0-75.0The [facility] CenterComment on above:Performed By: #### CBC ####[facility] Mhbgfofkwt18[address] [place], [place] [address]Dr.Kalie BessPlatelet mean volume (Bld) [Entitic vol] 12.1 fLNormal9.5-13.5The [facility] CenterComment on above:Performed By: #### CBC ####[facility] Sxiogjggpu00[address] [place], [place] [address]Dr. Kalie BessPLT167 103/wzLcugxw473-484Nmn [facility] CenterComment on above: Performed By: #### CBC ####[facility] Wvnpdfbcny[address] [place], [place] [address]Dr.Kalie BessRBC2.87 106/ulCritically low4.20-5.40Sal[facility] City HospitalComment on above:Performed By: #### CBC ####[facility] [address] [place] [address]Dr.Kalie BessWBC14.6 103/ul Critically high4.0-11.0[facility] City HospitalComment on above:Performed By: #### CBC ####[facility] Nybvqcmaqr29[address] [place], [place] [address]Dr. Kalie BessCRPon 94-55-0449UBL87.3 mg/dLCritically high<=1.0The [facility] CenterComment on above:Performed By: #### CRP, CMP ####[facility] Evrvmhaoct88[address] [place], [place] [address]Dr. Kalie BessH PYLORI ANTIBODY IGGon 11-23-2022H. PYLORI IGG ABS0.14 Index ValueNormal0.00-0.79[facility] City HospitalComment on above:Result Comment: Negative <0.80 Equivocal 0.80 - 0.89 Positive >0.89Performed By: #### HPYLLC ####[facility] Yhebefsedd[address] [place], [place] [address]Dr. Kalie BessOCC BLD IMMUNO SCREENon 58-26-0934JTFJNE BLOODNegativeNormalNEGATIVESalem City Hospital Comment on above:Performed By: #### OBSCRN ####[facility] Ikcxtknetm817[address] [place], [place] [address]Dr. Shayyroxie [facility] OF CARE GLUCOSEon 41-62-4739Zbmqtpn [Mass/Vol]450 mg/dLCritically dhee01-604ExqSalem City Hospital Comment on above:Performed By: #### POCGLUC ####[facility] Dhygfntkle05[address] [place], [place] [address]Dr. Shayyroxie ChangGlucose [Mass/Vol]328 mg/dL Critically vsrg75-047Ytj [facility] CenterComment on above:Performed By: #### POCGLUC ####[facility] Ffexzgiuas36[address] Main StreetBellevue, [place] [address]Ci. Yilan ChangGlucose [Mass/Vol]268 mg/dLCritically ncgc33-032Xah [facility] CenterComment on above:Performed By: #### POCGLUC ####[facility] S[address]dbwlzjuy[address] [place] [address]Dr. Yilan ChangGlucose [Mass/Vol]206 mg/dLCritically zzan16-224Bib [facility] CenterComment on above: Performed By: #### POCGLUC ####[facility] Ghwauqsfdy[address] [place] [address]Dr. Yilan ChangPROF 14(COMP METB)on 56-89-1135Vxrwggu [Mass/Vol]1.6 g/dLCritically low3.4-5.0The [facility] CenterComment on above: Performed By: #### CRP, CMP ####[facility] Dhwgxyvxxo78[address] [place] [address]Dr. Yilan ChangAlbumin/Globulin [Mass ratio]0.4 {ratio}NormalThe [facility] CenterComment on above:Performed By: #### CRP, CMP ####[facility] Tmllodloas[address] [place], [place] [address]Dr. Yilan ChangALP [Catalytic activity/Vol]202 U/LCritically irkv25-672Vho [facility] CenterComment on above:Performed By: #### CRP, CMP ####[facility] Jsxxcdnajk[address] [place] [address]Dr. Yilan ChangALT [Catalytic activity/Vol]63 U/LCritically ltpd23-07Sjv [facility] CenterComment on above: Performed By: #### CRP, CMP ####[facility] Vmkjmjdcfc[address] [place] [address]Dr. Yilan ChangAnion gap [Moles/Vol]12.7 mmol/LNormal The [facility] CenterComment on above:Performed By: #### CRP, CMP ####[facility] Iqs[address]jia[address] [place] [address]Dr. Yilan ChangAST [Catalytic activity/Vol]69 U/LCritically demj52-67Ocz [facility] CenterComment on above:Performed By: #### CRP, CMP ####[facility] Gggibcpoyc[address] [place] [address]Dr. Yilan ChangBilirubin [Mass/Vol]0.2 mg/dL Normal0.2-1.0The [facility] CenterComment on above:Performed By: #### CRP, CMP ####[facility] Utmejtcaqx[address] [place] [address]Dr. Yilan ChangCalcium [Mass/Vol]8.6 mg/dLNormal8.5-10.1The [facility] CenterComment on above:Performed By: #### CRP, CMP ####[facility] Ecrzmqsjvc[address] [place] [address]Dr. Yilan ChangChloride [Moles/Vol]99 mmol/L Haqdft38-767Tep [facility] CenterComstraith hospital for special surgery on above:Performed By: #### CRP, CMP ####[facility] Ygjzlhjdef97[address] [place], [place] [address]Dr. Yilan ChangCO2 [Moles/Vol]27.2 mmol/YHfujbe72.0-32.0The [facility] CenterComment on above:Performed By: #### CRP, CMP ####[facility] Tthpwoycod66[address] [place], [place] [address]Dr. Yilan ChangCreatinine [Mass/Vol]1.59 mg/dL Critically high0.55-1.02The [facility] on above:Performed By: #### CRP, CMP ####[facility] Exqyvkkuvm3537[address] [place], [place] [address]Dr. Yilan ChangEGFR-AF CXNWJHLQ27 mL/min/1.60w4Prksbwekln low>=60The [facility] CenterComment on above:Performed By: #### CRP, CMP ####[facility] Tvndwtengg6726[address] [place], [place] [address]Dr. Yilan ChangEGFR- NON AF CWHPJIOO41 mL/min/1.00s9Nucboxsmim low>=60The [facility] CenterComment on above:Performed By: #### CRP, CMP ####[facility] Biihyfnrrb6418[address] [place], [place] [address]Dr. Yilan ChangGlobulin (S) [Mass/Vol]4.5 g/dL NormalThe [facility] CenterComment on above:Performed By: #### CRP, CMP ####[facility] Wefvhopbsg[address] [place] [address]Dr. Yilan ChangGlucose [Mass/Vol]119 mg/dLCritically xnpf66-293Ocv [facility] Comment on above:Performed By: #### CRP, CMP ####[facility] Aeestfrcfj[address] [place] [address]Dr. Yilan ChangPotassium [Moles/Vol]3.9 mmol/LNormal3.5-5.1The [facility] CenterComment on above: Performed By: #### CRP, CMP ####[facility] Djczxoufhq5634[address] [place], [place] [address]Dr. Yilan ChangProtein [Mass/Vol]6.1 g/dLCritically low6.4-8.2The [facility] CenterComment on above:Performed By: #### CRP, CMP ####[facility] Gxroinnpok[address] [place], [place] [address]Dr. Yilan ChangSodium [Moles/Vol]135 mmol/LCritically dhn326-537Chm [facility] CenterComment on above:Performed By: #### CRP, CMP ####[facility] Dajcoarepa2367[address] [place], [place] [address]Dr. Yilan ChangUrea nitrogen [Mass/Vol]36.0 mg/dLCritically high7.0-18.0The [facility] CenterComment on above:Performed By: #### CRP, CMP ####[facility] Jjbaafdhxk6174[address] [place], [place] [address]Dr. Yilan ChangUrea nitrogen/Creatinine [Mass ratio] 22.6 mg/mgNormalThe [facility] CenterComment on above:Performed By: #### CRP, CMP ####[facility] Ncvxvpohzy531[address] [place], [place] [address]Dr. Yilan ChangSED RATE WESTERGRENon 13-30-6180WDD RATE>130Critically high<=30The [facility] CenterComment on above:Performed By: #### SEDR ####[facility] Xigegrhexg[address] [place] [address]Dr. Kalie BessCBC AUTO DIFF on 24-84-3916RJRE #0.1 103/ulNormal0.0-0.1The [facility] CenterComment on above: Performed By: #### CBC ####[facility] Bstlumrhrl35[address] [place], [place] [address]Dr.Kalie ChangBasophils/100 WBC (Bld)0.5 %Normal 0.2-2.0The [facility] CenterComment on above:Performed By: #### CBC ####[facility] Estyvpmxgt5108[address] [place], [place] [address]Dr.Shayylan ChangEO # 0.8 103/ulCritically high0.0-0.7The [facility] CenterComment on above:Performed By: #### CBC ####[facility] Sqruwghhnd207[address] [place], [place] [address]Dr.Kalie ChangEosinophils/100 WBC (Bld)5.2 %Normal0.9-7.0The [facility] CenterComment on above:Performed By: #### CBC ####[facility] Adnlsbfllh3788[address] [place], [place] [address]Dr.Kalie ChangErythrocyte distribution width (RBC) [Ratio]13.8 %Jzxwxw29.0-15.0The [facility] Comment on above:Performed By: #### CBC ####[facility] Frbliscwvc947[address] [place], [place] [address]Dr.Kalie ChangHematocrit (Bld) [Volume fraction]27.0 %Critically low36.0-48.0The [facility] CenterComment on above: Performed By: #### CBC ####[facility] Rhzewdjuwd095[address] [place], [place] [address]Dr.Kalie ChangHemoglobin (Bld) [Mass/Vol]9.4 g/dL Critically low12.0-16.0The [facility] CenterComment on above:Performed By: #### CBC ####[facility] Wmxyftsuuf8789[address] [place], [place] [address]Dr. Shayylan ChangIG #0.23 10e3/ulCritically high0.00-0.03[facility] City HospitalComment on above:Performed By: #### CBC ####[facility] Gvugkgntsw[address] [place] [address]Dr.Kalie BessIG %1.4 %Critically high0.0-0.5The [facility] CenterComment on above:Performed By: #### CBC ####[facility] [address]ylbkgtimf[address] [place] [address]Dr.Kalie BessMADISON AVENUE HOSPITALH #2.2 103/ulNormal1.2-3.8The [facility] CenterComment on above:Performed By: #### CBC ####[facility] Gbczpcuegn6[address] [place], [place] [address]Dr. Kalie Wilsonhocytes/100 WBC (Bld)13.6 %Critically low20.5-60.0The [facility] CenterComment on above:Performed By: #### CBC ####[facility] Mwxdhxcuwd4128[address] [place], [place] [address]Dr.Kalie BessDILEY [facility] DIFF REQ NONormalThe [facility] CenterComment on above:Performed By: #### CBC ####[facility] Urcufxzfwl9734[address] [place], [place] [address]Dr. Shayyroxie BessUNITED [facility] (RBC) [Entitic mass]28.8 nkFbvcpz80.7-34.0[facility] Comment on above:Performed By: #### CBC ####[facility] Azwztisokd803[address] [place], [place] [address]Dr.Kalie BessHC (RBC) [Mass/Vol]34.8 g/dL Dzqzqb25.9-35.2[facility] HospitalComment on above:Performed By: #### CBC ####[facility] Qhlcwovtvm20[address] [place], [place] [address]Dr. Kalie BessV (RBC) [Entitic vol]82.8 cQBhrffo56.0-99.0The [facility] Comment on above:Performed By: #### CBC ####[facility] Drbxnpzhsk3225[address] [place], [place] [address]Dr.Kalie DavisO #1.2 103/ulCritically high0.3-0.8The [facility] CenterComment on above:Performed By: #### CBC ####[facility] Uzzyvdjlab12[address] [place] [address]Dr. Kalie ChangMonocytes/100 WBC (Bld)7.3 %Normal1.7-12.0The [facility] Comment on above:Performed By: #### CBC ####[facility] Nbuluruntj3499[address] [place], [place] [address]Dr.Shayylan ChangNEUT #11.7 103/ulCritically high1.4-6.5The [facility] CenterComment on above:Performed By: #### CBC ####[facility] Dwebjyaaix9579[address] [place], [place] [address]Dr. Kalie ChangNeutrophils/100 WBC (Bld)72.0 %Uxeltg65.0-75.0The [facility] Comment on above:Performed By: #### CBC ####[facility] Qfoxloxspd6577[address] [place], [place] [address]Dr.Kalie ChangPlatelet mean volume (Bld) [Entitic vol]12.5 fLNormal9.5-13.5The [facility] CenterComment on above: Performed By: #### CBC ####[facility] Ocdjpxqwnx6629[address] [place], [place] [address]Dr.Kalie QfylgMKZ179 103/hkIejrev660-871Xyk [facility] CenterComment on above:Performed By: #### CBC ####[facility] Ebzujnvzub48[address] [place], [place] [address]Dr.Kalie ChangRBC3.26 106/ul Critically low4.20-5.40The [facility] CenterComment on above:Performed By: #### CBC ####[facility] Hoflamfyki4425[address] [place], [place] [address]Dr. Shayylan LsibaUWZ07.2 103/ulCritically high4.0-11.0The [facility] CenterComment on above:Performed By: #### CBC ####[facility] Jbdqxgyrip224[address] [place], [place] [address]Dr.Yilan ChangCRPon 26-68-1684KZX [Mass/Vol]mg/LNormal <=1.0The [facility] CenterComment on above:Performed By: #### CRP, CMP ####[facility] [address]xlikqlse[address] [place] [address]Dr. Kalie ChangPOINT OF CARE GLUCOSEon 55-60-7482Znluyec [Mass/Vol]179 mg/dL Critically pedl12-842Aje [facility] CenterComment on above:Performed By: #### POCGLUC ####[facility] Vmjcxmdkyp6[address] [place] [address]Dr. Shayylan ChangGlucose [Mass/Vol]110 mg/dLCritically rhsx79-299Ltw [facility] CenterComment on above:Performed By: #### POCGLUC ####[facility] Lgeqntduok2891[address] [place], [place] [address]Dr. Kalie ChangGlucose [Mass/Vol]258 mg/dLCritically bvzj06-150Rop [facility] CenterComment on above: Performed By: #### POCGLUC ####[facility] Qcyzmzicrt4848[address] [place], [place] [address]Dr. Kalie ChangGlucose [Mass/Vol]216 mg/dLCritically iomq38-058Zhh [facility] CenterComment on above:Performed By: #### POCGLUC ####[facility] Vxfupyfdns35[address] [place], [place] [address]Dr. Shayylan ChangPROF 14(COMP METB)on 20-16-5296Pglfzbx [Mass/Vol]1.8 g/dLCritically low3.4-5.0The [facility] CenterComment on above:Performed By: #### CRP, CMP ####[facility] Afyriryihd7245[address] [place], [place] [address]Dr. Shayylan ChangAlbumin/Globulin [Mass ratio]0.4 {ratio}NormalThe [facility] Comment on above:Performed By: #### CRP, CMP ####[facility] Vnpfumthhc9105[address] [place], [place] [address]Dr. Shayylan ChangALP [Catalytic activity/Vol]117 U/LCritically exlw29-248Jmt [facility] CenterComment on above: Performed By: #### CRP, CMP ####[facility] Rfakyhdmoi[address] [place] [address]Dr. Yilan ChangALT [Catalytic activity/Vol]30 U/L Jvopav70-80Svf [facility] CenterComment on above:Performed By: #### CRP, CMP ####[facility] Bpyrnjozob8943 [place] [address]Dr. Yilan ChangAnion gap [Moles/Vol]12.9 mmol/LNormalThe [facility] CenterComment on above:Performed By: #### CRP, CMP ####[facility] Gutbmaqfrz3246 [place] [address]Dr. Yilan ChangAST [Catalytic activity/Vol]20 U/L Sqfwdq29-09Qfg [facility] CenterComment on above:Performed By: #### CRP, CMP ####[facility] Nzkgbtyqtx13[address] [place] [address]Dr. Yilan ChangBilirubin [Mass/Vol]0.3 mg/dLNormal0.2-1.0The [facility] Comment on above:Performed By: #### CRP, CMP ####[facility] Aozwjzfrun[address] [place], [place] [address]Dr. Yilan ChangCalcium [Mass/Vol]8.5 mg/dLNormal8.5-10.1The [facility] CenterComment on above:Performed By: #### CRP, CMP ####[facility] Uqrnvkqnlf3386 [place] [address]Dr. Yilan ChangChloride [Moles/Vol]97 mmol/LCritically dtd79-119Mua [facility] CenterComment on above:Performed By: #### CRP, CMP ####[facility] Atzdaiznre1314 [place] [address]Dr. Yilan ChangCO2 [Moles/Vol]26.1 mmol/VHdlvhi75.0-32.0The [facility] CenterComment on above:Performed By: #### CRP, CMP ####[facility] Xdycuqctod7784 [place] [address]Dr. Yilan ChangCreatinine [Mass/Vol]1.72 mg/dL Critically high0.55-1.02The [facility] CenterComment on above:Performed By: #### CRP, CMP ####[facility] Rbrsziqcrj817[address] [place], [place] [address]Dr. Yilan ChangEGFR-AF DNKQSDMC96 mL/min/1.42z6Hycyinyytn low>=60The [facility] CenterComment on above:Performed By: #### CRP, CMP ####[facility] Nvkqeuyppm0709[address] [place], [place] [address]Dr. Yilan ChangEGFR- NON AF MYRVBEIH85 mL/min/1.14y3Xvxnpjvbdk low>=60The [facility] CenterComment on above:Performed By: #### CRP, CMP ####[facility] Fssugpshcs1638[address] [place], [place] [address]Dr. Yilan ChangGlobulin (S) [Mass/Vol]4.5 g/dL NormalThe [facility] CenterComment on above:Performed By: #### CRP, CMP ####[facility] Xiecmewwcv3536[address] [place], [place] [address]Dr. Yilan ChangGlucose [Mass/Vol]230 mg/dLCritically nbiz51-415Ejz [facility] Comment on above:Performed By: #### CRP, CMP ####[facility] Uanlypexdy1598[address] [place], [place] [address]Dr. Yilan ChangPotassium [Moles/Vol]4.0 mmol/LNormal3.5-5.1The [facility] CenterComment on above: Performed By: #### CRP, CMP ####[facility] Toxbwyebsc20[address] [place], [place] [address]Dr. Yilan ChangProtein [Mass/Vol]6.3 g/dLCritically low6.4-8.2The [facility] CenterComment on above:Performed By: #### CRP, CMP ####[facility] Dreqhtzsqd5143[address] [place], [place] [address]Dr. Yilan ChangSodium [Moles/Vol]132 mmol/LCritically zrn401-113Dtz [facility] CenterComment on above:Performed By: #### CRP, CMP ####[facility] Mockijzjig7[address] [place], [place] [address]Dr. Yilan ChangUrea nitrogen [Mass/Vol]45.0 mg/dLCritically high7.0-18.0The [facility] CenterComment on above:Performed By: #### CRP, CMP ####[facility] Pagrwldliu5154[address] [place], [place] [address]Dr. Yilan ChangUrea nitrogen/Creatinine [Mass ratio] 26.2 mg/mgSelect Medical Specialty Hospital - Southeast OhioComment on above:Performed By: #### CRP, CMP ####[facility] Hdkiuogwvo17[address] [place], [place] [address]Dr. Yilan ChangSED RATE WESTERGRENon 41-37-2003RIC RATE95 mm/hrCritically high<=[address] [facility] CenterComment on above:Performed By: #### SEDR ####[facility] Xhjssjbjvs08[address] [place], [place] [address]Dr. Yilan ChangUS BREAST LEFT LIMITEDon 28-11-7175PC BREAST LEFT LIMITEDC[facility] Clinic Luther[facility] Hospital HospitalACETONE SERUMon 21-62-9082NHFMESUWhbwthhlShvtrjMRXEKXNLHmf [facility] CenterComment on above:Performed By: #### ACETON ####[facility] Ulhmjxpsnw7[address] [place], [place] [address]Dr. Yilan ChangCBC W MANUAL DIFFon 19-72-1567GNDARUUDKSLNQKKTFVEqzecbGqg [facility] HospitalComment on above: Performed By: #### CBCMAN ####[facility] Qonpmkjdcl4756[address] [place], [place] [address]Dr. Yilan ChangATYPICAL LYMPH #NormalThe [facility] CenterComment on above:Performed By: #### CBCMAN ####[facility] Tnqomdnleo5415[address] [place], [place] [address]Dr. Yilan ChangATYPICAL LYMPH %NormalThe [facility] CenterComment on above:Performed By: #### CBCMAN ####[facility] Eqhzgcsgwo3241[address] [place], [place] [address]Dr. Yilan ChangBAND #1.1 103/ulCritically high0.0-0.3The [facility] CenterComment on above:Performed By: #### CBCMAN ####[facility] Axuxcogkye9555 [place] [address]Dr. Yilan ChangBAND %5 %Normal0-5The [facility] Comment on above:Performed By: #### CBCMAN ####[facility] Cfcspifkez8706 [place] [address]Dr. Yilan ChangBASOM #0.00 103/ulNormal 0.00-0.10The [facility] CenterComment on above:Performed By: #### CBCMAN ####[facility] Eclrvbdxju8442 [place] [address]Dr. Yilan ChangBASOM %0.0 %Critically low0.2-2.0The [facility] CenterComment on above:Performed By: #### CBCMAN ####[facility] Riajmfvfdr[address] [place], [place] [address]Dr. Yilan ChangBLAST #NormalThe [facility] Comment on above:Performed By: #### CBCMAN ####[facility] Yujnmmkgru3[address] [place] [address]Dr. Yilan ChangBLAST %NormalThe Railroad HospitalComment on above:Performed By: #### CBCMAN ####[facility] Wgayopotti[address] [place], [place] [address]Dr. Yilan ChangCORRECTED WBC Normal4.0-11.0[facility] HospitalComment on above:Performed By: #### CBCMAN ####[facility] Zlclzmtefe4871 [place] [address]Dr. Yilan ChangEOS #0.87 103/ulCritically high0.00-0.70The [facility] CenterComment on above:Performed By: #### CBCMAN ####[facility] Wgdrxeyykh[address] [place], [place] [address]Dr. Yilan ChangEOS%4.0 %Normal0.9-7.0The [facility] CenterComment on above:Performed By: #### CBCMAN ####[facility] Aqoqcvcwjj5[address] [place], [place] [address]Dr. Yilan BnkvdMHL90.7 % Critically low36.0-48.0The [facility] CenterComment on above:Performed By: #### CBCMAN ####[facility] Zaowajuzzd8[address] [place] [address]Dr. Kalie BessHGB8.2 g/dlCritically low12.0-16.0[facility] Comment on above:Performed By: #### CBCMAN ####[facility] Fifskjojcp8006 [place] [address]Dr. Kalie WilsonHM #1.74 103/ulNormal 1.20-3.80The [facility] CenterComment on above:Performed By: #### CBCMAN ####[facility] Agzhsutrpm14[address] [place] [address]Dr. Kalie BessLYMPHM%8.0 %Critically low20.5-60.0The [facility] CenterComment on above:Performed By: #### CBCMAN ####[facility] Djlwopxqmd0985 [place] [address]Dr. Kalie BessMCH29.2 ovTdzknl32.7-34.0The [facility] CenterComment on above:Performed By: #### CBCMAN ####[facility] Cxdvqolmgj[address] [place], [place] [address]Dr. Kalie BessMCHC36.1 g/dl Critically high29.9-35.2The [facility] CenterComment on above:Performed By: #### CBCMAN ####[facility] Hfgfqxnucv6471 [place] [address]Dr. Kalie BessMCV80.8 fLCritically low81.0-99.0The [facility] Comment on above:Performed By: #### CBCMAN ####[facility] Dabfcxxzmo1978 [place] [address]Dr. Kalie BessMETAMYELOCYTE #NormalThe [facility] CenterComment on above:Performed By: #### CBCMAN ####[facility] Kyrsvvdsll4[address] [place] [address]Dr. Kalie Bess METAMYELOCYTE %NormalThe [facility] CenterComment on above:Performed By: #### CBCMAN ####[facility] Gxiemwxona3494 [place] [address]Dr. Yilan ChangMICROCYTOSISSLIGHTNoMadison HealthComment on above:Performed By: #### CBCGABRIELLA ####[facility] Cqihynaaoh[address] [place], [place] [address]Dr. Yilan ChangMONOM#1.08 103/ulCritically high 0.30-0.80The [facility] CenterComment on above:Performed By: #### CBCMAN ####[facility] [address]fuhgwkdz17[address] [place], [place] [address]Dr. Yilan ChangMONOM%5.0 %Normal1.7-12.0The [facility] Vincent Medical CenterComment on above: Performed By: #### CBCGABRIELLA ####[facility] Ggdunyhhod44[address] [place], [place] [address]Dr. Yilan AhjceEHH19.3 fLNormal9.5-13.5The [facility] Medical CenterComment on above:Performed By: #### CBCGABRIELLA ####[facility] Silquvnked6563[address] [place], [place] [address]Dr. Yilan ChangMYELOCYTE # NormalSalem City HospitalComstraith hospital for special surgery on above:Performed By: #### CBCGABRIELLA ####[facility] Lyxqclelar825[address] [place], [place] [address]Dr. Yilan ChangMYELOCYTE %NormalThe [facility] Medical CenterComment on above:Performed By: #### CBCGABRIELLA ####[facility] Jyqmtnnpet668[address] [place], [place] [address]Dr. Yilan ChangNRBCSelect Medical Specialty Hospital - Southeast OhioComment on above:Performed By: #### CBCMAN ####[facility] Dcvnpoojop1778[address] [place], [place] [address]Dr. Yilan IisogJAV026 103/sdAnnrxq370-372Ytd [facility] CenterComment on above:Performed By: #### CBCMAN ####[facility] Xgpeoanxmz5867[address] [place], [place] [address]Dr. Yilan ChangRBC2.81 106/ulCritically low 4.20-5.40The [facility] CenterComment on above:Performed By: #### CBCMAN ####[facility] Anykjedtdv[address] [place] [address]Dr. Kalie EksckGJO67.6 %Zfuulo40.0-15.0The [facility] CenterComment on above: Performed By: #### CBCMAN ####[facility] Ezialwwpjc2352[address] [place], [place] [address]Dr. Kalie BessSEG #16.93 103/ulCritically high 1.40-6.50The [facility] CenterComment on above:Performed By: #### CBCMAN ####[facility] Pswtztazya6226[address] [place], [place] [address]Dr. Kalie ChangSEG %78.0 %Critically high43.0-75.0The [facility] Medical CenterComment on above:Performed By: #### CBCMAN ####[facility] Mekkdadyuu8232[address] [place], [place] [address]Dr. Kalie ZieciRHB59.7 103/ulCritically high4.0-11.[address] [facility] CenterComment on above:Performed By: #### CBCMAN ####[facility] Svtxzgezjt4819[address] [place], [place] [address]Dr. Kalie ChangCRPon 31-14-5342BVB51.5 mg/dLCritically high<=1.0The [facility] Systemment on above:Performed By: #### CRP ####[facility] Qpolsnyrcv818[address] [place], [place] [address]Dr.Kalie ChangCULTURE BLOODon 01-10-5110Qzobffursav examination of blood, cultureCulture Observations: NO GROWTH AT 5 DAYS.NormalThe Railroad HospitalComment on above:Performed By: #### BLDCX2 ####[facility] Qbwocdwvbi0079[address] [place], [place] [address]Dr. Kalie ChangMicroscopic examination of blood, cultureCulture Observations: NO GROWTH AT [address] [facility] CenterComment on above:Performed By: #### BLDCX1 ####[facility] Uyityymmhp0934[address] [place], [place] [address]Dr. Shayylan ShahriarCovid-19 PCR (CVDTBH)on 15-91-5458XAUX-CoV-2 (COVID-19) RNA CIPRIANO+probe Ql (Unsp spec)Not detectedNormalNOT DETECTEDSalem City Hospital Comment on above:Result Comment: When diagnostic testing is negative, the possibility of a false negative should be considered inthe context of a patient's recent exposures and the presence of clinical signs and sympt omsconsistent with SARS-CoV-2.This test is not yet approved or cleared by the [place] FDA. When there are no FDA-approved or cleared tests available, and other criteria are met, FDA can make tests available under an emergency access mechanism called an Emergency Use Authorization (EUA). The EUA for this test is supported by the [employer] of Health and Human Service's declaration that circumstances exist to justify the emergency use of in vitro diagnostics for the detection and/or diagnosis of the virus that causes COVID-19. This EUA will remain in effect for the duration of the COVID-19declaration justifying emergency of IVDs, unless it is terminated or revoked by the FDA (after which the test may no longer be used).Performed By: #### CVDTBH ####[facility] Tmulgnjnoj[address] [place] [address]Dr. Kalie Wesson Memorial HospitalLACTATE/LACTIC ACIDon 31-85-8719Mwezlrq [Moles/Vol]1.1 mmol/LNormal0.4-1.9[facility] Comment on above:Performed By: #### LACT ####[facility] Zgozcbprbr23[address] [place] [address]DrCassie BessLactate [Moles/Vol]2.2 mmol/L Critically high0.4-1.9Salem City HospitalComment on above:Performed By: #### LACT ####[facility] Ieuukgikud15[address] [place] [address]DrCassie BessSAN JUAN OF CARE GLUCOSEon 68-39-1664Mseoqgw [Mass/Vol]343 mg/dLCritically vmkz00-691YepSalem City HospitalComment on above:Performed By: #### POCGLUC ####[facility] Qvgpybvewz3863 [place] [address]DrCassie BessPROF 14(COMP METB)on 04-06-0207Rirbzjt [Mass/Vol]2.0 g/dL Critically low3.4-5.0The [facility] CenterComment on above:Performed By: #### CMP ####[facility] Wmperdzcmg9[address] [place] [address]Dr. Yilan ChangAlbumin/Globulin [Mass ratio]0.4 {ratio}NormalThe [facility] Comment on above:Performed By: #### CMP ####[facility] Rhqveacmqy4035[address] [place], [place] [address]Dr.Yilan ChangALP [Catalytic activity/Vol] 126 U/LCritically jvvk91-896Fvi [facility] CenterComment on above:Performed By: #### CMP ####[facility] Ebmskfuuxf3265[address] [place], [place] [address]Dr.Yilan ChangALT [Catalytic activity/Vol]35 U/CKgxcvn16-41Mxk [facility] CenterComment on above:Performed By: #### CMP ####[facility] Hnqgqfgmyz7444[address] [place], [place] [address]Dr.Yilan ChangAnion gap [Moles/Vol]14.6 mmol/LNormalThe [facility] CenterComment on above:Performed By: #### CMP ####[facility] Vbvnjuhgxc5044[address] [place], [place] [address]Dr.Yilan ChangAST [Catalytic activity/Vol]27 U/NDdxdiv42-41Hjj [facility] CenterComment on above:Performed By: #### CMP ####[facility] Mrmkfzlznm987[address] [place], [place] [address]Dr.Yilan ChangBilirubin [Mass/Vol]0.3 mg/dLNormal0.2-1.0The [facility] CenterComment on above:Performed By: #### CMP ####[facility] Mnlvpnolfx3238[address] [place], [place] [address]Dr.Yilan ChangCalcium [Mass/Vol]8.9 mg/dLNormal8.5-10.1The [facility] CenterComment on above:Performed By: #### CMP ####[facility] Coyhtcenan3273[address] [place], [place] [address]Dr.Yilan ChangChloride [Moles/Vol]92 mmol/LCritically feg77-639Cut [facility] CenterComment on above: Performed By: #### CMP ####[facility] Lggtgebmct2007[address] [place], [place] [address]Dr.Yilan ChangCO2 [Moles/Vol]27.2 mmol/LNormal 21.0-32.0The [facility] CenterComment on above:Performed By: #### CMP ####[facility] Gsqrlygflk4513[address] [place], [place] [address]Dr. Yilan ChangCreatinine [Mass/Vol]2.03 mg/dLCritically high0.55-1.02The [facility] CenterComment on above:Performed By: #### CMP ####[facility] Bokvsflrxm2314[address] [place], [place] [address]Dr.Yilan ChangEGFR-AF SKBCXTAC23 mL/min/1.40f3Nfyksopscr low>=60The [facility] CenterComment on above: Performed By: #### CMP ####[facility] Zvvjptktyh1026[address] [place], [place] [address]Dr.Yilan ChangEGFR-NON AF YNRITWCO41 mL/min/1.73m2 Critically low>=60The [facility] CenterComment on above:Performed By: #### CMP ####[facility] Yhszppeoii2071[address] [place], [place] [address]Dr. Yilan ChangGlobulin (S) [Mass/Vol]4.9 g/dLNormalThe [facility] CenterComment on above:Performed By: #### CMP ####[facility] Bkggqzaaru2442[address] [place], [place] [address]Dr.Yilan ChangGlucose [Mass/Vol]329 mg/dLCritically yosr13-437Mcg [facility] CenterComment on above:Performed By: #### CMP ####[facility] Evmvsmolkl7568[address] [place], [place] [address]Dr. Yilan ChangPotassium [Moles/Vol]3.8 mmol/LNormal3.5-5.1The [facility] Comment on above:Performed By: #### CMP ####[facility] Excbuxvwup8869[address] [place], [place] [address]Dr.Kalie ChangProtein [Mass/Vol]6.9 g/dL Normal6.4-8.2The [facility] CenterComment on above:Performed By: #### CMP ####[facility] Ffyluvpwrm2751[address] [place], [place] [address]Dr. Kalie ChangSodium [Moles/Vol]130 mmol/LCritically zgo140-264Oda [facility] CenterComment on above:Performed By: #### CMP ####[facility] Gzzlxbevff1737[address] [place], [place] [address]Dr.Shayylan ChangUrea nitrogen [Mass/Vol]52.0 mg/dLCritically high7.0-18.0The [facility] CenterComment on above:Performed By: #### CMP ####[facility] Ncpulvlaqe9431[address] [place], [place] [address]Dr.Shayylan ChangUrea nitrogen/Creatinine [Mass ratio] 25.6 mg/mgNoMadison HealthComment on above:Performed By: #### CMP ####[facility] Sfxtngrisk9164[address] [place], [place] [address]Dr. Kalie ChangPROTIMEon 80-27-3230IFO Coag (PPP) [Relative time]1.03 {INR}NormalCenterville on above:Performed By: #### PT, PTT ####[facility] Ylvrycyown5885[address] [place], [place] [address]Dr. Kalie BessINR GUIDELINESSEE BELOWSelect Medical Specialty Hospital - Southeast OhioComment on above:Result Comment: DESIRED INR: 2.0 - 3.0 CONDITIONS NOT LISTED BELOW 2.5 - 3.5 FOR PROSTHETIC HEART VALVE REPLACEMENT 2.5 - 3.5 RECURRENT THROMBOSISPerformed By: #### PT, PTT ####[facility] Cdnoxtakjp9745[address] [place], [place] [address]Dr. Kalie BessPT Coag (PPP) [Time]10.9 sNormal9.0-11.6The [facility] on above:Performed By: #### PT, PTT ####[facility] Mchsctvdth1638[address] [place], [place] [address]Dr. Kalie BessPTTon 17-29-0886jZWY Coag (Bld) [Time]27.3 oRphquu73.3-36.2The [facility] CenterComstraith hospital for special surgery on above:Performed By: #### PT, PTT ####[facility] Bmuvvzhnzb119[address] [place], [place] [address]Dr. Kalie BessSED RATE WESTERGRENon 39-92-4416YLI RATE63 mm/hrCritically high<=30The [facility] CenterComstraith hospital for special surgery on above:Performed By: #### SEDR ####[facility] Oztcxzpzwe5178[address] [place], [place] [address]Dr. Kalie BessACID FAST SMEAR AND CXon 22-13-6880Tlmi Fast CultureNegativeSelect Medical Specialty Hospital - Southeast OhioComstraith hospital for special surgery on above:Result Comment: No acid fast bacilli isolated after 6 weeks.Performed By: #### AFB ####[facility] Vnlngmadlo6767[address] [place], [place] [address]Dr.Kalie BessAcid Fast SmearNegativeSelect Medical Specialty Hospital - Southeast OhioComstraith hospital for special surgery on above:Performed By: #### AFB ####[facility] Iawgzpudfz007[address] [place], [place] [address]Dr.Kalie BessAFB Specimen ProcessingDirect St. Francis HospitalComstraith hospital for special surgery on above: Performed By: #### AFB ####[facility] Ubcjxroabz1381[address] [place], [place] [address]Dr.Kalie ChangFUNGAL CULTUREon 79-88-9020Jwnzot (Mycology) CultureFinal [facility] CampusComstraith hospital for special surgery on above: Performed By: #### CXFUN ####[facility] Ygnsusmbhd13[address] [place], [place] [address]Dr. Kalie ChangFungus StainFinal reportSelect Medical Specialty Hospital - Southeast OhioComstraith hospital for special surgery on above:Performed By: #### CXFUN ####[facility] Xzzwtckgpn6471[address] [place], [place] [address]Dr. Kalie ChangResult 1 [facility] CenterComstraith hospital for special surgery on above:Result Comment: GILMA/Calcofluor preparation: no fungus observed.Performed By: #### CXFUN ####[facility] Fzrccwpuqj0[address] [place] [address]Dr. Shayylan ChangResult Comment: No yeast or mold isolated after 4 weeks.BNPon 97-02-0615Tutvyvncjwo peptide B (Bld) [Mass/Vol]3827.0 pg/mLCritically high <=900.0The [facility] CenterComment on above:Performed By: #### BMP, BNP ####[facility] Uggpdppmpk5365[address] [place], [place] [address]Dr. Yilan ChangCBC AUTO DIFFon 38-02-1926JHGU #0.0 103/ulNormal0.0-0.1The [facility] CenterComment on above:Performed By: #### CBC ####[facility] Bzvgjcdvpe6084[address] [place], [place] [address]Dr.Yilan ChangBasophils/100 WBC (Bld)0.1 %Critically low0.2-2.0The [facility] CenterComment on above: Performed By: #### CBC ####[facility] Oirifwbtfd7235[address] [place], [place] [address]Dr.Yilan ChangEO #0.0 103/ulNormal0.0-0.7The [facility] CenterComment on above:Performed By: #### CBC ####[facility] Mcpojncrfc904[address] [place], [place] [address]Dr.Yilan ChangEosinophils/100 WBC (Bld)0.0 %Critically low0.9-7.0The [facility] CenterComment on above: Performed By: #### CBC ####[facility] Bkmglyfqmn3704[address] [place], [place] [address]Dr.Yilan ChangErythrocyte distribution width (RBC) [Ratio]13.9 %Vrhjzo50.0-15.0The [facility] Medical CenterComment on above:Performed By: #### CBC ####[facility] Rfduvrmygf7665[address] [place], [place] [address]Dr.Yilan ChangHematocrit (Bld) [Volume fraction]32.9 %Critically low 36.0-48.0The [facility] CenterComment on above:Performed By: #### CBC ####[facility] Ikxbkxojoa8[address] [place] [address]Dr. Shayyroxie ShahriarHemoglobin (Bld) [Mass/Vol]10.5 g/dLCritically low12.0-16.0The [facility] CenterComment on above:Performed By: #### CBC ####[facility] Dmxaoefump9075[address] [place], [place] [address]Dr.Kalie ChangIG #0.11 10e3/ulCritically high0.00-0.03The Railroad HospitalComment on above:Performed By: #### CBC ####[facility] Xoviomylhq7708[address] [place], [place] [address]Dr.Kalie BessIG %0.7 %Critically high0.0-0.5The [facility] CenterComment on above:Performed By: #### CBC ####[facility] Iucpryhnyn6081[address] [place], [place] [address]Dr.Shayyroxie ShahriarLYMPH #1.6 103/ulNormal1.2-3.8The [facility] CenterComment on above:Performed By: #### CBC ####[facility] Uhewpwbhku8269[address] [place], [place] [address]Dr.Kalie BessLymphocytes/100 WBC (Bld)9.5 %Critically low20.5-60.0The [facility] CenterComment on above: Performed By: #### CBC ####[facility] Fotqvblvfd8267[address] [place], [place] [address]Dr.Kalie BessMANUAL DIFF REQNONormalThe Railroad HospitalComment on above:Performed By: #### CBC ####[facility] Ccfubsccbz6198[address] [place], [place] [address]Dr.Kalie BessH (RBC) [Entitic mass]28.7 taHycqdu50.7-34.0The [facility] CenterComment on above: Performed By: #### CBC ####[facility] Koylmjrjwn3494[address] [place], [place] [address]Dr.Kalie BessMCHC (RBC) [Mass/Vol]31.9 g/dLNormal 29.9-35.2The Railroad HospitalComment on above:Performed By: #### CBC ####[facility] Lcgnwncgdb8357 [place] [address]Dr. Kalie BessMCV (RBC) [Entitic vol]89.9 dDPbemoh00.0-99.0[facility] Comment on above:Performed By: #### CBC ####[facility] Derreoqvpd424[address] [place], [place] [address]DrSin BessMONO #0.5 103/ulNormal0.3-0.8 [facility] HospitalComment on above:Performed By: #### CBC ####[facility] Zyyrpfpusy1715[address] [place], [place] [address]DrSin Bess Monocytes/100 WBC (Bld)2.9 %Normal1.7-12.0[facility] HospitalComment on above: Performed By: #### CBC ####[facility] Tawccuulzv6064[address] [place], [place] [address]Dr.Kalie BessNEUT #14.5 103/ulCritically high1.4-6.5 [facility] HospitalComment on above:Performed By: #### CBC ####[facility] Ptkeozwkcv1872[address] [place], [place] [address]Dr.Kalie Bess Neutrophils/100 WBC (Bld)86.8 %Critically high43.0-75.0[facility] Comment on above:Performed By: #### CBC ####[facility] Zxfgvejdyn786[address] [place], [place] [address]Dr.Kalie BessPlatelet mean volume (Bld) [Entitic vol]12.0 fLNormal9.5-13.5The [facility] CenterComment on above: Performed By: #### CBC ####[facility] Lwqhvmsrbh6031[address] [place], [place] [address]Dr.Kalie BessPLT245 103/npTetncx249-267Zzg [facility] CenterComment on above:Performed By: #### CBC ####[facility] Exyhnpinbf30001[address] [place], [place] [address]DrSin BessRBC3.66 106/ul Critically low4.20-5.40The [facility] CenterComment on above:Performed By: #### CBC ####[facility] Rdnwdcafxu7634[address] [place], [place] [address]Dr. Kalie YzxrgJHU69.7 103/ulCritically high4.0-11.0The [facility] CenterComment on above:Performed By: #### CBC ####[facility] Nnojpizewn5444[address] [place], [place] [address]Dr.Shayylan ChangPROF CHEM 8 (BAS METB)on 88-76-0468Piypl gap [Moles/Vol]10.1 mmol/LNormalThe [facility] CenterComment on above:Performed By: #### BMP, BNP ####[facility] Hpiewagfmk3742[address] [place], [place] [address]Dr. Kalie ChangCalcium [Mass/Vol]8.4 mg/dLCritically low8.5-10.1The [facility] CenterComment on above:Performed By: #### BMP, BNP ####[facility] Cwwtcnlsbo6097[address] [place], [place] [address]Dr. Shayylan Bess Chloride [Moles/Vol]96 mmol/LCritically ffr93-577Wxb [facility] CenterComment on above:Performed By: #### BMP, BNP ####[facility] Iowvmgqnps926[address] [place], [place] [address]Dr. Shayylan ChangCO2 [Moles/Vol]36.0 mmol/L Critically high21.0-32.0The [facility] CenterComment on above:Performed By: #### BMP, BNP ####[facility] Wiknatrkny7203[address] [place], [place] [address]Dr. Shayylan ChangCreatinine [Mass/Vol]1.64 mg/dLCritically high0.55-1.02The [facility] CenterComment on above:Performed By: #### BMP, BNP ####[facility] Mwxzepfobt3857[address] [place], [place] [address]Dr. Yilan ChangEGFR- AF PMRFCOJQ01 mL/min/1.38i1Cmavthqjzi low>=60The [facility] CenterComment on above:Performed By: #### BMP, BNP ####[facility] Iqrovszzgc7[address] [place] [address]Dr. Yilan ChangEGFR-NON AF TZFCYLIL72 mL/min/1.73m2 Critically low>=60The [facility] Systemment on above:Performed By: #### BMP, BNP ####[facility] Hliylozyue040[address] [place] [address]Dr. Yilan ChangGlucose [Mass/Vol]279 mg/dLCritically ohhn41-173Bkj [facility] CenterComment on above:Performed By: #### BMP, BNP ####[facility] Mgqoslefyv858[address] [place], [place] [address]Dr. Yilan ChangPotassium [Moles/Vol]4.1 mmol/LNormal3.5-5.1The [facility] CenterComment on above: Performed By: #### BMP, BNP ####[facility] Btukmkudhr8079[address] [place], [place] [address]Dr. Yilan ChangSodium [Moles/Vol]138 mmol/LNormal 136-145The [facility] CenterComment on above:Performed By: #### BMP, BNP ####[facility] Zmkyhugzgc48101[address] [place], [place] [address]Dr. Yilan ChangUrea nitrogen [Mass/Vol]36.0 mg/dLCritically high7.0-18.0The [facility] on above:Performed By: #### BMP, BNP ####[facility] Tcvzxtanbh4632[address] [place], [place] [address]Dr. Yilan ChangUrea nitrogen/Creatinine [Mass ratio]22.0 mg/mgNormalThe [facility] CenterComment on above:Performed By: #### BMP, BNP ####[facility] Ayxuueiicc2294[address] [place], [place] [address]Dr. Kalie GarciaSouthwest Health Center 82-76-8412Oyzoijnaezz peptide B (Bld) [Mass/Vol]2969.0 pg/mLCritically high<=900.0The [facility] CenterComment on above:Performed By: #### BNP ####[facility] Xjmupujryr4634[address] [place], [place] [address]Dr.Kalie BessCBC AUTO DIFFon 78-29-0348HOOM #0.0 103/ulNormal0.0-0.1The [facility] CenterComment on above:Performed By: #### CBC ####[facility] Zaoaqysoid8926[address] [place], [place] [address]Dr. Shayyroxie ChangBasophils/100 WBC (Bld)0.2 %Normal0.2-2.0The [facility] CenterComment on above:Performed By: #### CBC ####[facility] Slpyuczorq5052[address] [place], [place] [address]Dr.Yilan ChangEO #0.0 103/ulNormal0.0-0.7The [facility] CenterComment on above:Performed By: #### CBC ####[facility] Nbdeldpfuj7633[address] [place], [place] [address]Dr.Kalie ChangEosinophils/100 WBC (Bld)0.1 %Critically low0.9-7.0The [facility] CenterComment on above: Performed By: #### CBC ####[facility] Owojynbuxy5778[address] [place], [place] [address]Dr.Kalie ChangErythrocyte distribution width (RBC) [Ratio]13.9 %Wvskzp38.0-15.0The [facility] CenterComment on above:Performed By: #### CBC ####[facility] Sqtosfcnvw667[address] [place], [place] [address]Dr.Kalie ChangHematocrit (Bld) [Volume fraction]33.4 %Critically low 36.0-48.0The [facility] CenterComment on above:Performed By: #### CBC ####[facility] Kdlplfkrzd3704[address] [place], [place] [address]Dr. Kalie ChangHemoglobin (Bld) [Mass/Vol]10.6 g/dLCritically low12.0-16.0The [facility] CenterComment on above:Performed By: #### CBC ####[facility] Votzispgiy9835[address] [place], [place] [address]Dr.Kalie ChangIG #0.12 10e3/ulCritically high0.00-0.03The [facility] CenterComment on above:Performed By: #### CBC ####[facility] Awmkmxpiid4[address] [place] [address]Dr.Kalie BessIG %1.0 %Critically high0.0-0.5The [facility] CenterComment on above:Performed By: #### CBC ####[facility] Dqntimwzoe618[address] [place], [place] [address]Dr.Kalie BessLYMPH #1.4 103/ulNormal1.2-3.8The [facility] CenterComment on above:Performed By: #### CBC ####[facility] Xyesndfsuy77[address] [place], [place] [address]Dr.Kalie BessLymphocytes/100 WBC (Bld)11.1 %Critically low20.5-60.0The [facility] CenterComment on above: Performed By: #### CBC ####[facility] Vucayqkvkd04[address] [place], [place] [address]Dr.Kalie BessMANUAL DIFF REQNONormalThe [facility] [facility] Vincent Medical CenterComment on above:Performed By: #### CBC ####[facility] Eoxfigrmuo7[address] [place], [place] [address]Dr.Kalie BessUNITED [facility] (RBC) [Entitic mass]28.4 ktBuktkh60.7-34.0The [facility] Medical CenterComment on above: Performed By: #### CBC ####[facility] Sgpbmdpptw9592[address] [place], [place] [address]Dr.Kalie BessHC (RBC) [Mass/Vol]31.7 g/dLNormal 29.9-35.2[facility] HospitalComment on above:Performed By: #### CBC ####[facility] Lmwbdmfhej1662[address] [place], [place] [address]Dr. Kalie BessV (RBC) [Entitic vol]89.5 sFJizina70.0-99.0The [facility] Comment on above:Performed By: #### CBC ####[facility] Pnnwyrfcye0867[address] [place], [place] [address]Dr.Kalie BessMONO #0.3 103/ulNormal0.3-0.8 [facility] HospitalComment on above:Performed By: #### CBC ####[facility] [address] [place] [address]Dr.Kalie Bess Monocytes/100 WBC (Bld)2.2 %Normal1.7-12.0The [facility] Medical CenterComment on above: Performed By: #### CBC ####[facility] Qhggjbybrc9[address] [place], [place] [address]Dr.Kalie BessNEUT #10.8 103/ulCritically high1.4-6.[address] [facility] CenterComment on above:Performed By: #### CBC ####[facility] Socsioepig359[address] [place], [place] [address]Dr.Kalie Bess Neutrophils/100 WBC (Bld)85.4 %Critically high43.0-75.0The [facility] Comment on above:Performed By: #### CBC ####[facility] Xekgexbexa817[address] [place], [place] [address]Dr.Kalie BessPlatelet mean volume (Bld) [Entitic vol]11.9 fLNormal9.5-13.5The [facility] CenterComment on above: Performed By: #### CBC ####[facility] Oqyblprsdu0669[address] [place], [place] [address]Dr.Kalie BessPLT256 103/ojXvyzjs317-603Zqd [facility] CenterComment on above:Performed By: #### CBC ####[facility] Aamlsyyneq0719[address] [place], [place] [address]Dr.Kalie BessRBC3.73 106/ul Critically low4.20-5.40The [facility] CenterComment on above:Performed By: #### CBC ####[facility] Msowvztluh5318[address] [place], [place] [address]Dr. Kalie BpxatYUB73.6 103/ulCritically high4.0-11.0The [facility] CenterComment on above:Performed By: #### CBC ####[facility] Vsymamsunw1683[address] [place], [place] [address]Dr.Kalie BessPH, BODY FLUIDon 52-85-4468iW, Body Fluid7.7NormalNot Estab.The [facility] Medical CenterComment on above:Result Comment: The reference interval(s) and other method performance specificationshave not been established for this body fluid. The test result must beintegrated into the clinical context for interpretation.Performed By: #### BDYFLPH ####[facility] Duopbfxbts440[address] [place], [place] [address]Dr. Kalie BessPOINT OF CARE GLUCOSEon 33-84-8482Yndugfj [Mass/Vol]355 mg/dLCritically nlmx00-600ExxSalem City HospitalComment on above:Performed By: #### POCGLUC ####[facility] Swvmkkmrdy5557[address] [place], [place] [address]Dr. Kalie Bess Glucose [Mass/Vol]405 mg/dLCritically qotb49-807Lew [facility] CenterComment on above:Performed By: #### POCGLUC ####[facility] Uehwrlrwls718[address] [place], [place] [address]Dr. Kalie ChangGlucose [Mass/Vol]351 mg/dLCritically iccx58-950Gpw [facility] CenterComment on above:Performed By: #### POCGLUC ####[facility] Wrkevssurw705[address] [place], [place] [address]Dr. Kalie BessPROF CHEM 8 (BAS METB)on 43-56-3194Fwigu gap [Moles/Vol]10.1 mmol/L NormalSalem City HospitalComment on above:Performed By: #### BMP ####[facility] Koszcokbsa548[address] [place], [place] [address]Dr.Kalie Bess Calcium [Mass/Vol]8.6 mg/dLNormal8.5-10.1The [facility] CenterComment on above: Performed By: #### BMP ####[facility] Yobqtovpei932110 [address] [place], [place] [address]Dr.Kalie ChangChloride [Moles/Vol]99 mmol/LNormal 98-107The [facility] CenterComment on above:Performed By: #### BMP ####[facility] Sofiqigxvz2087[address] [place], [place] [address]Dr.Yilan ChangCO2 [Moles/Vol]33.0 mmol/LCritically high21.0-32.0The [facility] CenterComment on above:Performed By: #### BMP ####[facility] Jmjbvytyoy1037[address] [place], [place] [address]Dr.Kalie ChangCreatinine [Mass/Vol]1.54 mg/dL Critically high0.55-1.02The [facility] CenterComment on above:Performed By: #### BMP ####[facility] Szwsdgybzx518[address] [place], [place] [address]Dr.Yilan ChangEGFR-AF EBOKVBDP93 mL/min/1.36o1Gcaklenfnd low>=60The [facility] CenterComment on above:Performed By: #### BMP ####[facility] Htnqvhycyo0464[address] [place], [place] [address]Dr.Yilan ChangEGFR-NON AF CYKXGYYM27 mL/min/1.14a3Mhinjzwgck low>=60The [facility] CenterComment on above: Performed By: #### BMP ####[facility] Gzktywdpbi1843[address] [place], [place] [address]Dr.Shayylan ChangGlucose [Mass/Vol]264 mg/dLCritically lsnu87-182Qfl [facility] CenterComment on above:Performed By: #### BMP ####[facility] Svwuwgfjxl4307[address] [place], [place] [address]Dr. Shayylan ChangPotassium [Moles/Vol]4.1 mmol/LNormal3.5-5.1The [facility] Comment on above:Performed By: #### BMP ####[facility] Yipftythrq5776[address] [place], [place] [address]Dr.Yilan ChangSodium [Moles/Vol]138 mmol/L Odvezg877-896Yrf [facility] CenterComment on above:Performed By: #### BMP ####[facility] Rimnskkmvh488[address] [place], [place] [address]Dr. Yilan ChangUrea nitrogen [Mass/Vol]27.0 mg/dLCritically high7.0-18.0The [facility] CenterComment on above:Performed By: #### BMP ####[facility] Sqxhtkcsjb5119[address] [place], [place] [address]Dr.Yilan ChangUrea nitrogen/Creatinine [Mass ratio]17.5 mg/mgNormalThe [facility] CenterComment on above:Performed By: #### BMP ####[facility] Seahumdxyo467[address] [place], [place] [address]Dr.Yilan ChangXR CHEST 2 Von 18-20-4258NS CHEST 2 V NormalThe [facility] AUTO DIFFon 46-35-6304ZJQN #0.1 103/ulNormal 0.0-0.1The [facility] CenterComment on above:Performed By: #### CBC ####[facility] Djlapesros791510 [address] [place], [place] [address]Dr.Yilan Bess Basophils/100 WBC (Bld)0.4 %Normal0.2-2.0The [facility] CenterComment on above: Performed By: #### CBC ####[facility] Yviawfxmlf207910 [address] [place], [place] [address]Dr.Yilan ChangEO #0.6 103/ulNormal0.0-0.7The [facility] CenterComment on above:Performed By: #### CBC ####[facility] Kzqdwpzjvu2961[address] [place], [place] [address]Dr.Yilan ChangEosinophils/100 WBC (Bld)4.3 %Normal0.9-7.0The [facility] CenterComstraith hospital for special surgery on above:Performed By: #### CBC ####[facility] Jjnodhthzq5695[address] [place], [place] [address]Dr.Yilan ChangErythrocyte distribution width (RBC) [Ratio]14.2 %Normal 11.0-15.0The [facility] CenterComment on above:Performed By: #### CBC ####[facility] Hjsoyshwhe912[address] [place], [place] [address]Dr. Shayylan ChangHematocrit (Bld) [Volume fraction]32.1 %Critically low36.0-48.0The [facility] CenterComment on above:Performed By: #### CBC ####[facility] Cdbzjewvyy0918[address] [place], [place] [address]Dr.Yilan ChangHemoglobin (Bld) [Mass/Vol]10.3 g/dLCritically low12.0-16.0The [facility] CenterComment on above:Performed By: #### CBC ####[facility] Mgxgmxnzlf3901[address] [place], [place] [address]Dr.Kalie BessIG #0.06 10e3/ulCritically high0.00-0.[address] [facility] CenterComment on above:Performed By: #### CBC ####[facility] Kcmlyhigln0028[address] [place], [place] [address]Dr.Kalie BessIG % 0.4 %Normal0.0-0.5The [facility] CenterComment on above:Performed By: #### CBC ####[facility] Wyuladsksl5102[address] [place], [place] [address]Dr. Kalie BessLYMPH #3.0 103/ulNormal1.2-3.8The [facility] CenterComment on above: Performed By: #### CBC ####[facility] Pdpizcprfe250210 [address] [place], [place] [address]Dr.Kalie BessLymphocytes/100 WBC (Bld)21.0 %Normal 20.5-60.0The [facility] CenterComment on above:Performed By: #### CBC ####[facility] Yvxpqequhw0057[address] [place], [place] [address]Dr. Kalie BessMANUAL DIFF REQNONormalThe [facility] CenterComment on above: Performed By: #### CBC ####[facility] Ddotzmtasc8844[address] [place], [place] [address]Dr.Kalie BessUNITED [facility] (RBC) [Entitic mass]28.9 pgNormal 26.7-34.0The [facility] CenterComment on above:Performed By: #### CBC ####[facility] Nqxvuoiyub6857[address] [place], [place] [address]Dr. Shayyroxie BessMCHC (RBC) [Mass/Vol]32.1 g/eHKdrlqw03.9-35.2The [facility] Comment on above:Performed By: #### CBC ####[facility] Qntvszxjjs488[address] [place], [place] [address]Dr.Kalie BessMCV (RBC) [Entitic vol]89.9 fL Bfaoqv36.0-99.0The [facility] on above:Performed By: #### CBC ####[facility] Uvapcayygc9542[address] [place], [place] [address]Dr. Kalie BessMONO #1.0 103/ulCritically high0.3-0.8The [facility] CenterComment on above:Performed By: #### CBC ####[facility] Maqcxgeyza3586[address] [place], [place] [address]Dr.Kalie BessMonocytes/100 WBC (Bld)6.9 %Normal 1.7-12.0The [facility] CenterComment on above:Performed By: #### CBC ####[facility] Kerkjojtoq100[address] [place], [place] [address]Dr. Kalie BessNEUT #9.5 103/ulCritically high1.4-6.5The [facility] CenterComment on above:Performed By: #### CBC ####[facility] Cdfbehbtxr077[address] [place], [place] [address]Dr.Kalie ChangNeutrophils/100 WBC (Bld)67.0 %Normal 43.0-75.0The [facility] CenterComment on above:Performed By: #### CBC ####[facility] Dgvbouquuk4426[address] [place], [place] [address]Dr. Kalie BessPlatelet mean volume (Bld) [Entitic vol]11.6 fLNormal9.5-13.5The [facility] on above:Performed By: #### CBC ####[facility] Okqgspagzd6438[address] [place], [place] [address]Dr.Kalie WhzxkERF019 103/ul Zthgwe795-996Lko [facility] CenterComstraith hospital for special surgery on above:Performed By: #### CBC ####[facility] Dtuaoxtuds3132[address] [place], [place] [address]Dr. Kalie ChangRBC3.57 106/ulCritically low4.20-5.40The [facility] CenterComstraith hospital for [facility] on above:Performed By: #### CBC ####[facility] [address] [place] [address]Dr.Kalie AmctxSVR63.1 103/ulCritically high4.0-11.0The [facility] CenterComment on above:Performed By: #### CBC ####[facility] Qbbnrfhpso5275[address] [place], [place] [address]Dr.Kalie ChangPOINT OF CARE GLUCOSEon 70-06-7076Xmidomq [Mass/Vol]340 mg/dLCritically ggmn41-207Dwz [facility] CenterComment on above:Performed By: #### POCGLUC ####[facility] [address]wet[address] [place] [address]Dr. Yilan ChangGlucose [Mass/Vol]270 mg/dLCritically mhki80-705MuzSalem City HospitalComment on above: Performed By: #### POCGLUC ####[facility] Ynqtlneusu095[address] [place], [place] [address]Dr. Yilan ChangGlucose [Mass/Vol]176 mg/dLCritically tgju69-148Jqk [facility] CenterComment on above:Performed By: #### POCGLUC ####[facility] Rihbqquvpy7094[address] [place], [place] [address]Dr. Shayylan ChangGlucose [Mass/Vol]178 mg/dLCritically yzfe76-420MofSalem City Hospital Comment on above:Performed By: #### POCGLUC ####[facility] Y[address]otlxqmm[address] [place] [address]Dr. Kalie ChangPROF CHEM 8 (BAS METB)on 46-03-9372Lekmx gap [Moles/Vol]5.7 mmol/LNormalThe [facility] CenterComment on above:Performed By: #### BMP ####[facility] Phodrsampg3537[address] [place], [place] [address]Dr.Shayylan ChangCalcium [Mass/Vol]8.4 mg/dLCritically low8.5-10.1The [facility] CenterComstra[facility] for [facility] on above:Performed By: #### BMP ####[facility] Tlpqbrvqym260[address] [place], [place] [address]Dr. Shayylan ChangChloride [Moles/Vol]100 mmol/ZHqvjew38-531BswSalem City Hospital Comment on above:Performed By: #### BMP ####[facility] Qyonnliwfd26[address] [place] [address]Dr.Yilan ChangCO2 [Moles/Vol]34.0 mmol/L Critically high21.0-32.0The [facility] CenterComment on above:Performed By: #### BMP ####[facility] Ezmyetuuoe5548[address] [place], [place] [address]Dr.Yilan ChangCreatinine [Mass/Vol]1.25 mg/dLCritically high0.55-1.02The [facility] CenterComment on above:Performed By: #### BMP ####[facility] Jlopmlqqdo1154[address] [place], [place] [address]Dr.Yilan ChangEGFR-AF MJPLJAMN23 mL/min/1.81v7Zmddnfvfmg low>=60The [facility] CenterComment on above: Performed By: #### BMP ####[facility] Znlizojfwd480[address] [place], [place] [address]Dr.Yilan ChangEGFR-NON AF FTDTOOML39 mL/min/1.73m2 Critically low>=60The [facility] CenterComment on above:Performed By: #### BMP ####[facility] Ovfqcfhcvu2129[address] [place], [place] [address]Dr. Yilan ChangGlucose [Mass/Vol]193 mg/dLCritically irjj93-584TwmSalem City Hospital Comment on above:Performed By: #### BMP ####[facility] Mwyiegsmfr264[address] [place], [place] [address]Dr.Yilan ChangPotassium [Moles/Vol]3.7 mmol/LNormal3.5-5.1The [facility] CenterComment on above:Performed By: #### BMP ####[facility] Gneldftnck[address] [place], [place] [address]Dr. Yilan ChangSodium [Moles/Vol]136 mmol/JTuzpxr091-287Lpm [facility] CenterComment on above:Performed By: #### BMP ####[facility] Xoynelcmbk9259[address] [place], [place] [address]Dr.Yilan ChangUrea nitrogen [Mass/Vol]24.0 mg/dL Critically high7.0-18.0The [facility] CenterComment on above:Performed By: #### BMP ####[facility] Eobidisiat786[address] [place], [place] [address]Dr. Yilan ChangUrea nitrogen/Creatinine [Mass ratio]19.2 mg/mgNormalThe [facility] CenterComment on above:Performed By: #### BMP ####[facility] Borzbiesuv8813[address] [place], [place] [address]Dr.Yilan ChangXR CHEST 2 Von 75-71-2459ED CHEST 2 VNormalThe [facility] AUTO DIFFon 50-23-4987SHYA #0.1 103/ulNormal0.0-0.1The [facility] CenterComment on above:Performed By: #### CBC ####[facility] Irvocjekqo3289[address] [place], [place] [address]Dr. Yilan ChangBasophils/100 WBC (Bld)0.4 %Normal0.2-2.0The [facility] CenterComstraith [facility] for [facility] on above:Performed By: #### CBC ####[facility] Acxlcclpif9511[address] [place], [place] [address]Dr.Yilan ChangEO #0.5 103/ulNormal0.0-0.7The [facility] CenterComstraith [facility] for [facility] on above:Performed By: #### CBC ####[facility] Zirzecugpl3116[address] [place], [place] [address]Dr.Yilan ChangEosinophils/100 WBC (Bld)4.0 %Normal0.9-7.0The [facility] CenterComment on above:Performed By: #### CBC ####[facility] Bgvujkdpxr532[address] [place], [place] [address]Dr.Yilan ChangErythrocyte distribution width (RBC) [Ratio]14.1 %Normal 11.0-15.0The [facility] CenterComstraith [facility] for [facility] on above:Performed By: #### CBC ####[facility] Qjcqltvufh2834[address] [place], [place] [address]Dr. Shayylan ChangHematocrit (Bld) [Volume fraction]32.4 %Critically low36.0-48.0The [facility] HospitalComment on above:Performed By: #### CBC ####[facility] [address]xqb[address] [place] [address]Dr.Kalie BessHemoglobin (Bld) [Mass/Vol]10.7 g/dLCritically low12.0-16.0The [facility] HospitalComment on above:Performed By: #### CBC ####[facility] Ydgafaxcnn475[address] [place], [place] [address]Dr.Kalie BessIG #0.08 10e3/ulCritically high0.00-0.03 The [facility] HospitalComment on above:Performed By: #### CBC ####[facility] Pzjsdfxkpe125[address] [place], [place] [address]Dr.Kalie ShahriarIG % 0.6 %Critically high0.0-0.5The [facility] CenterComment on above:Performed By: #### CBC ####[facility] Bszxwfpwvh3263[address] [place], [place] [address]Dr.Kalie ChangLYMPH #2.9 103/ulNormal1.2-3.8The [facility] CenterComment on above:Performed By: #### CBC ####[facility] Kbjcxzyzzl2482[address] [place], [place] [address]Dr.Kalie BessLymphocytes/100 WBC (Bld)21.3 %Normal 20.5-60.0The [facility] CenterComment on above:Performed By: #### CBC ####[facility] Gpshvsosce667[address] [place], [place] [address]Dr. Kalie BessMANUAL DIFF REQNONormalThe Railroad HospitalComment on above: Performed By: #### CBC ####[facility] Afrrlznkam4559[address] [place], [place] [address]Dr.Kalie BessH (RBC) [Entitic mass]28.8 pgNormal 26.7-34.0The [facility] HospitalComment on above:Performed By: #### CBC ####[facility] Efeneknsxc5768[address] [place], [place] [address]Dr. Kalie BessNOR[facility] (RBC) [Mass/Vol]33.0 g/bKShdsmn05.9-35.2The [facility] Comment on above:Performed By: #### CBC ####[facility] Yancsaxrrf9297[address] [place], [place] [address]Dr.Kalie BessMCV (RBC) [Entitic vol]87.3 fL Jdzzoc40.0-99.0The [facility] CenterComment on above:Performed By: #### CBC ####[facility] Nxcsbpglmi6719[address] [place], [place] [address]Dr. Kalie BessMONO #0.9 103/ulCritically high0.3-0.8The [facility] HospitalComment on above:Performed By: #### CBC ####[facility] Ntmhxpzfbt035[address] [place], [place] [address]Dr.Kalie BessMonocytes/100 WBC (Bld)6.9 %Normal 1.7-12.0The [facility] CenterComment on above:Performed By: #### CBC ####[facility] Dpkvbkjgma9553[address] [place], [place] [address]Dr. Kalie BessNEUT #9.0 103/ulCritically high1.4-6.5The [facility] HospitalComment on above:Performed By: #### CBC ####[facility] Mkoxyqvfet732[address] [place], [place] [address]Dr.Kalie BessNeutrophils/100 WBC (Bld)66.8 %Normal 43.0-75.0The [facility] CenterComment on above:Performed By: #### CBC ####[facility] Jrcsiyhvls9525[address] [place], [place] [address]Dr. Kalie BessPlatelet mean volume (Bld) [Entitic vol]11.6 fLNormal9.5-13.5The [facility] HospitalComment on above:Performed By: #### CBC ####[facility] Wbplexcyzy3751[address] [place], [place] [address]Dr.Kalie PmkziKGW663 103/ul Xupgue467-947Kcs [facility] CenterComment on above:Performed By: #### CBC ####[facility] Uwlzkxxuqt9575[address] [place], [place] [address]Dr. Yilan ChangRBC3.71 106/ulCritically low4.20-5.40The [facility] CenterComment on above:Performed By: #### CBC ####[facility] Pmnmlxofnf8545[address] [place], [place] [address]Dr.Kalie AgfvnPOU54.4 103/ulCritically high4.0-11.0The [facility] CenterComment on above:Performed By: #### CBC ####[facility] Luhlxwvtkc8[address] [place], [place] [address]Dr.Kalie ChangPOINT OF CARE GLUCOSEon 13-05-0893Weddhmp [Mass/Vol]106 mg/aYEtjhoe11-376Oha [facility] Comment on above:Performed By: #### POCGLUC ####[facility] Dcszaphnxl7771[address] [place], [place] [address]Dr. Kalie ChangGlucose [Mass/Vol]109 mg/dL Critically rwww19-383Cnr [facility] CenterComment on above:Performed By: #### POCGLUC ####[facility] Srlcsoloug5155[address] [place], [place] [address]Dr. Kalie ChangGlucose [Mass/Vol]159 mg/dLCritically cfzo45-482Wvf [facility] CenterComment on above:Performed By: #### POCGLUC ####[facility] Reeybeunjr6295[address] [place], [place] [address]Dr. Kalie ChangGlucose [Mass/Vol]340 mg/dLCritically idtk36-975Fhp [facility] CenterComment on above: Performed By: #### POCGLUC ####[facility] Cyfoxlmgvm8012[address] [place], [place] [address]Dr. Kalie ChangPROF CHEM 8 (BAS METB)on 08-02-2022 Anion gap [Moles/Vol]6.9 mmol/LNormalSalem City HospitalComment on above: Performed By: #### BMP ####[facility] Pwunldjlzm0895[address] [place], [place] [address]Dr.Kalie ChangCalcium [Mass/Vol]8.0 mg/dLCritically low8.5-10.1The [facility] CenterComment on above:Performed By: #### BMP ####[facility] [address]av[address]xbvr[address] [place] [address]Dr. Yilan ChangChloride [Moles/Vol]96 mmol/LCritically ubi00-698Nwx [facility] CenterComment on above:Performed By: #### BMP ####[facility] Geeyzrrwsr0199[address] [place], [place] [address]Dr.Yilan ChangCO2 [Moles/Vol] 33.7 mmol/LCritically high21.0-32.0The [facility] CenterComment on above: Performed By: #### BMP ####[facility] Veubfqiuwo6364[address] [place], [place] [address]Dr.Yilan ChangCreatinine [Mass/Vol]1.35 mg/dL Critically high0.55-1.02The [facility] CenterComment on above:Performed By: #### BMP ####[facility] Ezhulevpac07[address] [place], [place] [address]Dr.Yilan ChangEGFR-AF GZGEMTXE39 mL/min/1.26j7Rlopmohznp low>=60The [facility] CenterComment on above:Performed By: #### BMP ####[facility] Fzpnxxhwpx12[address] [place], [place] [address]Dr.Yilan ChangEGFR-NON AF EZFAZKEN48 mL/min/1.17f2Zxpckstnmr low>=60The [facility] CenterComment on above: Performed By: #### BMP ####[facility] Vnkbjziinb7[address] [place], [place] [address]Dr.Yilan ChangGlucose [Mass/Vol]339 mg/dLCritically cyse30-670Srd [facility] CenterComment on above:Performed By: #### BMP ####[facility] [address] [place], [place] [address]Dr. Yilan ChangPotassium [Moles/Vol]3.6 mmol/LNormal3.5-5.1The [facility] Comment on above:Performed By: #### BMP ####[facility] Zfqiihheec16[address] [place], [place] [address]Dr.Yilan ChangSodium [Moles/Vol]133 mmol/L Critically ioa809-595Zcz [facility] CenterComment on above:Performed By: #### BMP ####[facility] [address] [place] [address]Dr. Kalie ChangUrea nitrogen [Mass/Vol]28.0 mg/dLCritically high7.0-18.0[facility] City HospitalComment on above:Performed By: #### BMP ####[facility] Wqswvhygot[address] [place] [address]Dr.Kalie ChangUrea nitrogen/Creatinine [Mass ratio]20.7 mg/mgNormalThe [facility] CenterComment on above:Performed By: #### BMP ####[facility] Pnjnizhvqk[address] [place] [address]Dr.Kalie ChangXR CHEST 2 Von [id number] CHEST 2 V NormalSalem City HospitalAMYLASE, BODY FLUIDon 30-18-1603Meclvhl [Catalytic activity/Vol]18 U/LNormalSalem City HospitalComment on above:Result Comment: : BODY FLUID TYPE : AMYLASE : : : : : Lymph : 50 - 83 : : : : : Peritoneal : : : Fluid : 88 - 109 : : : : : Saliva : : : (MixedGlands) : 67989 - [id number] : : : : . [place] W, [place] V. Reference Intervals for Adults and Children 2008. Ninth Edition (V9.1) [employer], [facility]; [place]: April 2009.The method performance specifications have not been established forthis test inbody fluid. The test result should be integrated intothe clinical context for interpretation. Performed By: #### AMYBODY ####[facility] Qzmqomkrpm[address] [place] [address]Dr. Shayylan ChangCBC AUTO DIFFon [id number] #0.0 103/ulNormal0.0-0.1The [facility] CenterComment on above:Performed By: #### CBC ####[facility] Sdchbjuwbl[address] [place], [place] [address]Dr. Shayylan ChangBasophils/100 WBC (Bld)0.3 %Normal0.2-2.0The [facility] CenterComment on above:Performed By: #### CBC ####[facility] Rrxznddyfz2662[address] [place], [place] [address]Dr.Yilan ChangEO #0.4 103/ulNormal0.0-0.7The [facility] CenterComment on above:Performed By: #### CBC ####[facility] Szbpotobwk2879[address] [place], [place] [address]Dr.Shayylan ChangEosinophils/100 WBC (Bld)3.2 %Normal0.9-7.0The [facility] Systemment on above:Performed By: #### CBC ####[facility] Uefhybmxrh2341[address] [place], [place] [address]Dr.Shayylan ChangErythrocyte distribution width (RBC) [Ratio]14.0 %Normal 11.0-15.0The [facility] Systemment on above:Performed By: #### CBC ####[facility] Owitoadqfv8835[address] [place], [place] [address]Dr. Kalie ChangHematocrit (Bld) [Volume fraction]34.0 %Critically low36.0-48.0The [facility] Systemment on above:Performed By: #### CBC ####[facility] Pyeadeeful9834[address] [place], [place] [address]Dr.Kalie ChangHemoglobin (Bld) [Mass/Vol]10.9 g/dLCritically low12.0-16.0The [facility] CenterComment on above:Performed By: #### CBC ####[facility] Soxfoqmluc5525[address] [place], [place] [address]Dr.Kalie BessIG #0.11 10e3/ulCritically high0.00-0.[address] [facility] CenterComment on above:Performed By: #### CBC ####[facility] Hmyhxbmcjp2946[address] [place], [place] [address]Dr.Kalie BessIG % 0.8 %Critically high0.0-0.5The Railroad HospitalComment on above:Performed By: #### CBC ####[facility] Nejylewbgi3242[address] [place], [place] [address]Dr.Kalie WilsonH #3.2 103/ulNormal1.2-3.8The [facility] CenterComment on above:Performed By: #### CBC ####[facility] Olaptqyxfi6573[address] [place], [place] [address]Dr.Kalie Wilsonhocytes/100 WBC (Bld)24.6 %Normal 20.5-60.0The [facility] CenterComment on above:Performed By: #### CBC ####[facility] Wqgwzrqiiq549[address] [place], [place] [address]Dr. Kalie BessMANUAL DIFF REQNONormalThe [facility] CenterComment on above: Performed By: #### CBC ####[facility] Pcqqpqlgol623[address] [place], [place] [address]Dr.Kalie BessUNITED [facility] (RBC) [Entitic mass]28.3 pgNormal 26.7-34.0The [facility] CenterComment on above:Performed By: #### CBC ####[facility] Ubsciedcdx1366[address] [place], [place] [address]Dr. Kalie BessHC (RBC) [Mass/Vol]32.1 g/aBYzjrfu60.9-35.2The [facility] Comment on above:Performed By: #### CBC ####[facility] Luouehvwbn025[address] [place], [place] [address]Dr.Kalie BessMCV (RBC) [Entitic vol]88.3 fL Dszack51.0-99.0The [facility] CenterComment on above:Performed By: #### CBC ####[facility] Oxxcobfpcy8575[address] [place], [place] [address]Dr. Kalie BessMONO #0.8 103/ulNormal0.3-0.8The [facility] CenterComment on above: Performed By: #### CBC ####[facility] Xazggzquuk4491[address] [place], [place] [address]Dr.Kalie BessMonocytes/100 WBC (Bld)5.8 %Normal 1.7-12.0The [facility] CenterComment on above:Performed By: #### CBC ####[facility] Tsmdhbrpgv6573[address] [place], [place] [address]Dr. Kalie BessNEUT #8.5 103/ulCritically high1.4-6.5The [facility] CenterComment on above:Performed By: #### CBC ####[facility] Smoxpffocm7801[address] [place], [place] [address]Dr.Kalie ChangNeutrophils/100 WBC (Bld)65.3 %Normal 43.0-75.0The [facility] CenterComment on above:Performed By: #### CBC ####[facility] Yfqyrnnxza0082[address] [place], [place] [address]Dr. Kalie BessPlatelet mean volume (Bld) [Entitic vol]11.5 fLNormal9.5-13.5The [facility] CenterComment on above:Performed By: #### CBC ####[facility] Ppehphvbjo579[address] [place], [place] [address]Dr.Kalie BessPLT256 103/ul Cpyakl182-212Iyz [facility] CenterComstraith hospital for special surgery on above:Performed By: #### CBC ####[facility] Bplpzluntv8977[address] [place], [place] [address]Dr. Kalie BessRBC3.85 106/ulCritically low4.20-5.40The [facility] CenterComment on above:Performed By: #### CBC ####[facility] Gzigtknmpj6028[address] [place], [place] [address]Dr.Yilan CfhhcSNN92.0 103/ulCritically high4.0-11.0The [facility] CenterComment on above:Performed By: #### CBC ####[facility] Cryafrgxgu280[address] [place], [place] [address]Dr.Yilan ChangCELL COUNT BODY FLUIDon 75-49-9727Yqkrhdg, SerousClearNormalClearThe [facility] CenterComment on above:Performed By: #### CCBFS ####[facility] Tiexfwghjw1167[address] [place], [place] [address]Dr. Yilan ChangColor, SerousColorlessNormSelect Medical Specialty Hospital - TrumbullComment on above:Result Comment: Colorless to Pale Yellow/Straw Performed By: #### CCBFS ####[facility] Uuuuhrpmub9487[address] [place], [place] [address]Dr. Yilan ChangComments:NormalThe [facility] Comment on above:Performed By: #### CCBFS ####[facility] Galpeedmem620[address] [place], [place] [address]Dr. Yilan ChangEosinophils/100 WBC (Bld)0 % NormalNot Estab.The [facility] CenterComment on above:Performed By: #### CCBFS ####[facility] Gwhtkjabzc9982[address] [place], [place] [address]Dr. Yilan ChangLining Cells, SerousNormalThSelect Medical Specialty Hospital - Southeast OhioComstraith hospital for special surgery on above: Performed By: #### CCBFS ####[facility] Qoxzwxwvlh7077[address] [place], [place] [address]Dr. Yilan ChangLymphocytes/100 WBC (Bld)25 %NormalNot Estab.The Railroad HospitalComment on above:Performed By: #### CCBFS ####[facility] Ojbhajkljp9932[address] [place], [place] [address]Dr. Yilan ChangMacrophages, Gxwptf50 %NormalNot Estab.The [facility] CenterComment on above:Performed By: #### CCBFS ####[facility] Tegofixgjc0165[address] [place], [place] [address]Dr. Yilan ChangNucleated Cells, Vcnlhn06 /vz4Xtccsh 0-499The [facility]ita HospitalComment on above:Result Comment: Pleural Fluid, with <1000 Nucleated cells/uL has been associated with transudates while >1000 uL may be seen in exudates.Performed By: #### CCBFS ####[facility] [address]av[address] [place] [address]Dr. Kalie BessPolys, Serous 34 %Critically high0-24Sal[facility] City HospitalComment on above:Performed By: #### CCBFS ####[facility] Jeugtqckig[address] [place] [address]Dr. Kalie BessRBC (Bld) [#/Vol]0 10*6/uLNormalNot Estab.The [facility] CenterComment on above:Performed By: #### CCBFS ####[facility] Vdhhhdtygb30[address] [place] [address]Dr. Kalie BessGLUCOSE BODYFLUIDon 19-67-1695Aedigms, Body Xbbpu091 mg/dLNoMadison Health Comment on above:Result Comment: : BODY FLUID TYPE : GLUCOSE : [...] : Tears : 76 - 288 : :__ : : . [place] W, Shilo V. Reference Intervals for Adults and Children 2007. Ninth edition (V9.1) [employer], [facility]; [place]: April 2009.The reference intervals and other method performance specificationshave not been established for this test. The test result should beintegrated into the clinical context for interpretation. Performed By: #### BFGLUC ####[facility] Rkbjkhwxgt0948[address] [place], [place] [address]Dr. Kalie ChangLACTIC ACID DEHYDROGENASE (LD), BODY FLUon 02-99-8304YP, Body Qxpej912 IU/LNormalThe [facility] CenterComment on above:Result Comment: : BODY FLUID TYPE : LDH : [...] 2007. Ninth Edition (V9.1) [employer], [facility]; [place]: April 2009.The reference intervalsand other method performance specificationshave not been established for this test. The test resultshould beintegrated into the clinical context for interpretation.Performed By: #### LDHBF ####[address] [facility] 69-96-4094Ihhspdg [Mass/Vol]322 mg/dLCritically ydrc85-014Kgv [facility] Comment on above:Performed By: #### POCGLUC ####[facility] Ypwbhzmmxp050[address] [place], [place] [address]Dr. Yilan ChangGlucose [Mass/Vol]299 mg/dL Critically teda06-841Chd [facility] HospitalComment on above:Performed By: #### POCGLUC ####[facility] Aoufirjytm9[address] [place], [place] [address]Dr. Yilan ChangGlucose [Mass/Vol]306 mg/dLCritically pnsh12-647Kra Railroad HospitalComment on above:Performed By: #### POCGLUC ####[facility] Jdmfqvtcui0501[address] [place], [place] [address]Dr. Yilan ChangGlucose [Mass/Vol]339 mg/dLCritically fbkt36-875Ndu Railroad HospitalComment on above: Performed By: #### POCGLUC ####[facility] Fksrhkyyxk7346[address] [place], [place] [address]Dr. Yilan ChangPROF CHEM 8 (BAS METB)on 08-01-2022 Anion gap [Moles/Vol]6.3 mmol/LNormalThe [facility] CenterComment on above: Performed By: #### BMP ####[facility] Bydxzfevpk0471[address] [place], [place] [address]Dr.Yilan ChangCalcium [Mass/Vol]8.0 mg/dLCritically low8.5-10.1The [facility] CenterComment on above:Performed By: #### BMP ####[facility] Glfzfpgzgb0492[address] [place], [place] [address]Dr. Yilan ChangChloride [Moles/Vol]97 mmol/LCritically keg02-389Wfk [facility] CenterComment on above:Performed By: #### BMP ####[facility] Rcvvudfmgg9369[address] [place], [place] [address]Dr.Yilan ChangCO2 [Moles/Vol] 35.6 mmol/LCritically high21.0-32.0The Railroad HospitalComment on above: Performed By: #### BMP ####[facility] Orxbmb[address]vo[address] [place] [address]Dr.Yilan ChangCreatinine [Mass/Vol]1.50 mg/dL Critically high0.55-1.02The [facility] CenterComstraith hospital for special surgery on above:Performed By: #### BMP ####[facility] Btgvdjxayb6633[address] [place], [place] [address]Dr.Yilan ChangEGFR-AF STAXPWUC16 mL/min/1.15c0Deaaidkboq low>=60The [facility] CenterComstraith hospital for special surgery on above:Performed By: #### BMP ####[facility] Grrwgtitgt[address] [place], [place] [address]Dr.Yilan ChangEGFR-NON AF IMJKCVYI74 mL/min/1.12k9Bsywvptdfl low>=60The [facility] CenterComstraith hospital for special surgery on above: Performed By: #### BMP ####[facility] Ykbrlyvrbr1409[address] [place], [place] [address]Dr.Yilan ChangGlucose [Mass/Vol]303 mg/dLCritically pwug79-289Hah [facility] CenterComstraith hospital for special surgery on above:Performed By: #### BMP ####[facility] Xrcuitkvlb9965[address] [place], [place] [address]Dr. Yilan ChangPotassium [Moles/Vol]3.0 mmol/LCritically low3.5-5.1The [facility] CenterComstraith hospital for special surgery on above:Performed By: #### BMP ####[facility] Hnbkooskcm253[address] [place], [place] [address]Dr.Yilan ChangSodium [Moles/Vol]137 mmol/PYezgyz761-889Rlk [facility] on above: Performed By: #### BMP ####[facility] Yotnkvpief8199[address] [place], [place] [address]Dr.Yilan ChangUrea nitrogen [Mass/Vol]27.0 mg/dL Critically high7.0-18.0The [facility] CenterComstraith hospital for special surgery on above:Performed By: #### BMP ####[facility] Exhgfkcoyk4922[address] [place], [place] [address]Dr. Yilan ChangUrea nitrogen/Creatinine [Mass ratio]18.0 mg/mgNormalThe [facility] CenterComment on above:Performed By: #### BMP ####[facility] Ldnvtalygf4931 [place], [place] [address]Mp.Yilan ChangPROTEIN, TOTAL, BODY FLUIDon 50-38-9551Dwvgqcc, Body Fluid1.4 g/dLNormalThe [facility] Comment on above:Result Comment: : BODY FLUID TYPE : TOTAL PROTEIN : : : : : Amniotic Fluid : <0.4 : : : : : : Nonmalignant: <3.0 : : Ascitic Fluid : Malignant: >3.0 : : :___ : : Bile, Clear : <0.9 : : : : : Bile,Yellow : 0.2 - 0.6 : : : [...] - 0.9 : : : : . [place] W, [place] V. Reference Intervals for Adults and Children 2008. Ninth Edition(V9.1) [employer], [facility]; [place]: April 2009.The method performance specifications have not been established forthis test in body fluid. The test result should be integrated intotheclinical context for interpretation.Performed By: #### TPBF ####[address] [address]N[place]. Kalie ChangXR CHEST 1 Von [id number] CHEST 1 [place] [facility] HospitalBNSouthwest Health Center 31-24-4880Zquzcavwbxj peptide B (Bld) [Mass/Vol]4467.0 pg/mLCritically high <=900.0The [facility] CenterComment on above:Performed By: #### BNP ####[facility] Eyjjijczwb6484[address] [place], [place] [address]Dr.Shayylan ChangCBC AUTO DIFFon 60-59-0571YGPX #0.1 103/ulNormal0.0-0.1The [facility] CenterComment on above:Performed By: #### CBC ####[facility] Nxtgsxzpbb677[address] [place], [place] [address]Dr.Yilan ChangBasophils/100 WBC (Bld)0.5 %Normal 0.2-2.0The [facility] CenterComment on above:Performed By: #### CBC ####[facility] Xbyxzqqsda438[address] [place], [place] [address]Dr.Yilan ChangEO # 0.4 103/ulNormal0.0-0.7The [facility] CenterComment on above:Performed By: #### CBC ####[facility] Yitikssltz3658[address] [place], [place] [address]Dr. Yilan ChangEosinophils/100 WBC (Bld)2.7 %Normal0.9-7.0The [facility] Comment on above:Performed By: #### CBC ####[facility] Sqmrriksnn2024[address] [place], [place] [address]Dr.Shayylan ChangErythrocyte distribution width (RBC) [Ratio]13.9 %Drduwj41.0-15.0The [facility] CenterComment on above: Performed By: #### CBC ####[facility] Hphxicspnt7589[address] [place], [place] [address]Dr.Kalie ChangHematocrit (Bld) [Volume fraction]31.6 % Critically low36.0-48.0The [facility] CenterComment on above:Performed By: #### CBC ####[facility] Zbqexydyvh6167[address] [place], [place] [address]Dr. Kalie ChangHemoglobin (Bld) [Mass/Vol]10.1 g/dLCritically low12.0-16.0The [facility] CenterComment on above:Performed By: #### CBC ####[facility] Uixeavuygr[address] [place] [address]Dr.Kalie BessIG #0.15 10e3/ulCritically high0.00-0.03The [facility] CenterComment on above:Performed By: #### CBC ####[facility] Cqwzsfufsb5[address] [place] [address]Dr.Kalie BessIG %1.1 %Critically high0.0-0.5The [facility] CenterComment on above:Performed By: #### CBC ####[facility] Kadwjizawg17[address] [place] [address]Dr.Kalie BessLYMPH #3.5 103/ulNormal1.2-3.8The [facility] CenterComment on above:Performed By: #### CBC ####[facility] Wctxupfgml6654[address] [place], [place] [address]Dr.Kalie BessLymphocytes/100 WBC (Bld)26.3 %Rekgjb49.5-60.0The [facility] CenterComment on above:Performed By: #### CBC ####[facility] Kgxzqepgok6767[address] [place], [place] [address]Dr.Kalie BessMANUAL DIFF REQNONormalThe [facility] CenterComment on above:Performed By: #### CBC ####[facility] Bdxylekcuc4274[address] [place], [place] [address]Dr.Kalie BessUNITED [facility] (RBC) [Entitic mass]28.5 pgNormal 26.7-34.0The [facility] CenterComment on above:Performed By: #### CBC ####[facility] Qkpbdegpqj1214[address] [place], [place] [address]Dr. Kalie BessHC (RBC) [Mass/Vol]32.0 g/rXMsnfyr64.9-35.2The [facility] Comment on above:Performed By: #### CBC ####[facility] Prgxvrgkiy7005[address] [place], [place] [address]Dr.Kalie BessV (RBC) [Entitic vol]89.3 fL Wajlsw03.0-99.0The [facility] CenterComment on above:Performed By: #### CBC ####[facility] Muktmkbxgz[address] [place] [address]Dr. Kalie BessMONO #1.1 103/ulCritically high0.3-0.8The [facility] CenterComment on above:Performed By: #### CBC ####[facility] Zalatgvjws66[address] [place] [address]Dr.Kalie ChangMonocytes/100 WBC (Bld)8.4 %Normal 1.7-12.0The Railroad HospitalComment on above:Performed By: #### CBC ####[facility] Zkswjldjls415[address] [place], [place] [address]Dr. Kalie BessNEUT #8.1 103/ulCritically high1.4-6.5The [facility] CenterComment on above:Performed By: #### CBC ####[facility] Gtonipsqdf0039[address] [place], [place] [address]Dr.Kalie ChangNeutrophils/100 WBC (Bld)61.0 %Normal 43.0-75.0The [facility] CenterComment on above:Performed By: #### CBC ####[facility] Inthpbeame7384[address] [place], [place] [address]Dr. Kalie BessPlatelet mean volume (Bld) [Entitic vol]11.6 fLNormal9.5-13.5The [facility] CenterComment on above:Performed By: #### CBC ####[facility] Edcwojbocf535[address] [place], [place] [address]Dr.Kalie GoxffXDQ357 103/ul Wucyrk567-514Gvt Railroad HospitalComment on above:Performed By: #### CBC ####[facility] Bktbwgxnly[address] [place], [place] [address]Dr. Kalie ChangRBC3.54 106/ulCritically low4.20-5.40The [facility] CenterComment on above:Performed By: #### CBC ####[facility] Ubdrsewzyg5517[address] [place], [place] [address]Dr.Kalie KsyqqYZO26.3 103/ulCritically high4.0-11.0The [facility] CenterComment on above:Performed By: #### CBC ####[facility] Fxzfqjkpkh1482[address] [place], [place] [address]Dr.Yilan ChangCULTURE STERILE BODY FLUIDon [id number] STERILE BODY FLUIDCulture Observations: No growth at 72 hours.NormalSalem City HospitalComment on above:Performed By: #### STBFCX ####[facility] Zqamfpmato2865[address] [place], [place] [address]Dr. Yilan ChangCYTOLOGYon 96-56-4438EQIX TO REF LAB07/31/22NoMadison HealthComment on above:Performed By: #### CYTO ####[facility] Rnzdnfvyuw3825[address] [place], [place] [address]Dr. Yilan ChangECHOCARDIO M/2D COMPLETEon 29-24-6920TONXHKLSKN M/2D COMPLETESelect Medical Specialty Hospital - Southeast OhioER URINE PROFILEon 78-18-6890Uzjacyejl Ql (U)NegativeNormalNEGATIVESalem City HospitalComment on above:Performed By: #### AURELIO ERUR ####[facility] Ulygjwoizh[address] [place], [place] [address]r. Yilan ChangClarity (U) CLEARNormalCLEARSalem City HospitalComment on above:Performed By: #### AURELIO ERUR ####[facility] Syojfaeqmq[address] [place], [place] [address]Dr. Yilan ChangColor (U)LT. YELLOWNormalYELLOWSalem City HospitalComment on above: Performed By: #### AURELIO ERUR ####[facility] Uogunkvvro[address] [place], [place] [address]Dr. Yilan ChangERUAHDA micrscopic examination will be performed if indicated.NormalSalem City HospitalComment on above:Performed By: #### AURELIO, ERUR ####[facility] Inwxofmska04[address] [place], [place] [address]Dr. Yilan ChangGlucose Ql (U)100 mg/dlAbnormalNEGATIVESalem City HospitalComment on above:Performed By: #### IVÁN CAREYR ####[facility] Wbufgqdavw2985 [place], [place]Dr. Yilan ChangHemoglobin Ql (U)SMALLAbnormalNEGATIVEThe [facility] CenterComment on above:Performed By: #### AURELIO ERUR ####[facility] Qhuocdqmrt9721 [place], [place] [address]Bm. Yilan ChangKetones Ql (U)NegativeNormalNEGATIVEThe [facility] Comment on above:Performed By: #### AURELIO, ERUR ####[facility] Jnemtmpthh[address] [place] [id number]. Yilan ChangLEUKOCYTES NegativeNormalNEGATIVESalem City HospitalComment on above:Performed By: #### AURELIO ERUR ####[facility] [address]mcjxhqtoh49[address] [place] [id number]. Yilan ChangNitrite Ql (U)NegativeNormalNEGATIVEThe [facility] Comment on above:Performed By: #### IVÁN CAREYR ####[facility] Gfzkzenywn[address] [place], [place] [address]Dr. Yilan ChangpH (U)5.5 [pH] Normal5-9Salem City HospitalComment on above:Performed By: #### IVÁN CAREYR ####[facility] Qxfvptgaho1050 [place] [id number]. Yilan ChangProtein (U) [Mass/Vol]100 mg/dLAbnormalNEGATIVE/ TRACEThe [facility] CenterComment on above:Performed By: #### IVÁN CAREYR ####[facility] [address]zoktnglm[address] [place] [address]Dr. Yilan ChangSPEC GRAVITY 1.432Dinujm0.005-<=1.025The [facility] Medical CenterComment on above:Performed By: #### IVÁN CAREYR ####[facility] Jvlpfvqlnb[address] [place] [address]Dr. Yilan ChangUR MICRO INDINDICATEDNormalThe [facility] St. [facility] Medical CenterComment on above:Performed By: #### JAREK CAREY ####[facility] Aeixttmvir4[address] [place], [place]Dr. Yilan ChangUrobilinogen Qn (U)0.2 {Codi'U}/dLNormal0.2 - 1.0Salem City HospitalComment on above:Performed By: #### JAREK CAREY ####[facility] Rrrlejclgr8390 [place], [place]Dr. Yilan ChangGRAM STAINon 30-30-2061ODVOLLTEZK ORGANISMS OBSERVEDSelect Medical Specialty Hospital - Southeast OhioComment on above:Performed By: #### GSTAIN ####[facility] Bxgkonhnhl42[address] [place], [place] [address]Dr. Yilan ChangDIPHTHEROIDSSelect Medical Specialty Hospital - Southeast OhioComment on above: Performed By: #### GSTAIN ####[facility] Lqtfophmcj0301[address] [place], [place] [address]Dr. Yilan ChangEPITHELIALSMartins Ferry Hospital on above:Performed By: #### GSTAIN ####[facility] Bsfnbtmkff9[address] [place], [place] [address]Dr. Yilan ChangFUNGAL ELEMENTSSelect Medical Specialty Hospital - Southeast OhioComment on above:Performed By: #### GSTAIN ####[facility] Ekrdqvkhaq8317[address] [place], [place] [address]Dr. Yilan ChangGRAM NEG BACILLISelect Medical Specialty Hospital - Southeast OhioComment on above:Performed By: #### GSTAIN ####[facility] Gwcwsgnnvk[address] [place], [place] [address]Dr. Yilan ChangGRAM NEG DIPPLOCOCCICleveland Clinic Lutheran Hospital HospitalComment on above: Performed By: #### GSTAIN ####[facility] Lmsiehwxae2187[address] [place], [place] [address]Dr. Yilan ChangGRAM POS BACILLICleveland Clinic Lutheran Hospital HospitalComment on above:Performed By: #### GSTAIN ####[facility] Mahoqkmyhy6957[address] [place], [place] [address]Dr. Yilan ChangGRAM POSITIVE COCCINoMadison HealthComment on above:Performed By: #### GSTAIN ####[facility] Bzlhyvrxak36[address] [place] [address]Dr. Shayyroxie BessGRAM STAIN SOURCEPleural FluidSelect Medical Specialty Hospital - Southeast OhioComment on above:Performed By: #### GSTAIN ####[facility] Sbwrmfuoik35[address] [place] [address]Dr. Kalie BessGS_DIPBerger Hospital Comment on above:Performed By: #### GSTAIN ####[facility] Jzqvpgpjjw[address] [place], [place] [address]Dr. Kalie BessWBCMemorial HospitalComment on above:Performed By: #### GSTAIN ####[facility] Usbvllyemd4209[address] [place], [place] [address]Dr. Kalie BessPOINT OF CARE GLUCOSEon 06-59-9443Noyzgxp [Mass/Vol]314 mg/dLCritically lebd07-402GcpSalem City HospitalComstraith hospital for special surgery on above:Performed By: #### POCGLUC ####[facility] Vzpdaumakn5071[address] [place], [place] [address]Dr. Kalie ChangGlucose [Mass/Vol]190 mg/dLCritically dlqk14-864Nsu [facility] Medical CenterComment on above: Performed By: #### POCGLUC ####[facility] Geicyxndgu1453[address] [place], [place] [address]Dr. Kalie ShahriarGlucose [Mass/Vol]271 mg/dLCritically yarp81-374EpdSalem City HospitalComstraith hospital for special surgery on above:Performed By: #### POCGLUC ####[facility] Munyszygkr119[address] [place], [place] [address]Dr. Kalie BessPROF CHEM 8 (BAS METB)on 93-45-9862Kqmyv gap [Moles/Vol]8.1 mmol/L NormalSalem City HospitalComstraith hospital for special surgery on above:Performed By: #### BMP ####[facility] Reqnpdwmxx5139[address] [place], [place] [address]Dr.Kalie Bess Calcium [Mass/Vol]8.2 mg/dLCritically low8.5-10.1The Sarita HospitalComment on above:Performed By: #### BMP ####[facility] Rqehktitem39[address] [place] [address]Dr.Yilan ChangChloride [Moles/Vol]102 mmol/LNormal 98-107The [facility] Medical CenterComment on above:Performed By: #### BMP ####[facility] Yyivqfjphd4655 [place] [address]Dr.Yilan ChangCO2 [Moles/Vol]32.2 mmol/LCritically high21.0-32.0The Railroad HospitalComment on above:Performed By: #### BMP ####[facility] Behpmlidup356[address] [place], [place] [address]Dr.Yilan ChangCreatinine [Mass/Vol]1.25 mg/dL Critically high0.55-1.02The [facility] Medical CenterComment on above:Performed By: #### BMP ####[facility] Dlgsuscpcw1961[address] [place], [place] [address]Dr.Yilan ChangEGFR-AF ZUBEMNQM74 mL/min/1.33n4Vhtyvhobxm low>=60The [facility] Medical CenterComment on above:Performed By: #### BMP ####[facility] Bhxnwdelqa6016[address] [place], [place] [address]Dr.Yilan ChangEGFR-NON AF PRQIQONP72 mL/min/1.69n0Aupwaueyoc low>=60The [facility] Medical CenterComment on above: Performed By: #### BMP ####[facility] Cejjhbklqf9665[address] [place], [place] [address]Dr.Yilan ChangGlucose [Mass/Vol]208 mg/dLCritically jfrm78-979Djn [facility] CenterComment on above:Performed By: #### BMP ####[facility] Hdxywymjsa037[address] [place], [place] [address]Dr. Yilan ChangPotassium [Moles/Vol]3.3 mmol/LCritically low3.5-5.1The [facility] CenterComment on above:Performed By: #### BMP ####[facility] Fhesrgbfat2177[address] [place], [place] [address]Dr.Yilan ChangSodium [Moles/Vol]139 mmol/LWuumfj352-056Ylk [facility] CenterComment on above: Performed By: #### BMP ####[facility] Rxzazcztak9[address] [place] [address]Dr.Yilan ChangUrea nitrogen [Mass/Vol]23.0 mg/dL Critically high7.0-18.0Salem City HospitalComment on above:Performed By: #### BMP ####[facility] Bsedfyaifa8608 [place] [address]Dr. Yilan ChangUrea nitrogen/Creatinine [Mass ratio]18.4 mg/mgNormSelect Medical Specialty Hospital - TrumbullComment on above:Performed By: #### BMP ####[facility] Yfzddapmar09[address] [place] [address]Dr.Kalie ChangTROPONIN, HIGH SENSITIVITYon 37-15-5208HSMXGY60.2 pg/mLNormal4.0-51.3TGalion Hospital Comment on above:Result Comment: CUT-OFF POINTS HAVE BEEN ESTABLISHED BASED ON THE FOURTH UNIVERSAL DEFINITIONS OF MYOCARDIALINFARCTION. THE UPPER REFERENCE LIMIT (URL) OF TROPONIN, DEFINED THE 99TH PERCENTILE OFcTnI DISTRIBUTION IN A REFERENCE POPULATION, HAS BEEN CONFIRMED THE DECISION THRESHOLDFOR IN DIAGNO SIS.Performed By: #### HSTROPN ####[facility] Vsuttaujxx57[address] [place] [address]Dr. Yilan ChangURINE MICROSCOPIC ONLYon 07-31-2022 BACTERIATRACEAbnormalNONE SEENSalem City HospitalComstraith hospital for special surgery on above:Performed By: #### IVÁN CAREYR ####[facility] Pkfpghoevf58[address] [place] [address]Dr. Kalie ChangBacteria identified Cx Nom (U)NOT INDICATEDNoMadison HealthComment on above:Performed By: #### JAREK CAREY ####[facility] Nvbbkjidvx4[address] [place] [address]Dr. Yilan ChangCASTNONE SEENNormalNONE SEENSalem City HospitalComment on above: Performed By: #### JAREK CAREY ####[facility] Qxxjgmnnza7985 [place] [address]Dr. Yilan ChangCrystals LM Nom (Urine sed)NONE SEEN NormalNONE SEENThe [facility] Medical CenterComment on above:Performed By: #### IVÁN CAREYR ####[facility] Wkzlgcyqae7[address] [place] [address]Dr. Kalie ChangEpithelial cells LM Ql (Urine sed)NONE SEENNormalNONE SEEN /RAREThe [facility] CenterComment on above:Performed By: #### AURELIO, IVÁNR ####[facility] Hzedjmyqzl44[address] [place] [address]Dr. Kalie ChangMUCOUS NONE SEENNormalNONE SEENThe [facility] CenterComment on above:Performed By: #### IVÁN CAREYR ####[facility] Nyuwfbpbca1462 [place] [address]Dr. Kalie BessRBCNONE SEENAbnormal0-2The [facility] CenterComment on above:Performed By: #### IVÁN CAREYR ####[facility] Ymemuyxkwb[address] [place], [place] [address]Dr. Kalie ChangWBCNONE SEENNormalNONE SEENThe [facility] CenterComment on above:Performed By: #### IVÁN CAREYR ####[facility] Rkxrqgeppe8[address] [place], [place] [address]Dr. Kalie BessXR CHEST 1 Von 17-47-1113XW CHEST [address] [facility] Medical CenterXR CHEST [address] VNormal [address] [facility] Medical CenterACETONE SERUMon 13-17-7455XKSAGEKVtuqpmeiThxstvFXXPSHJXRcp [facility] CenterComment on above:Performed By: #### ACETON ####[facility] Kmfcqjgqfj955[address] [place], [place] [address]Dr. Kalie Webb 16-88-0294Ngjetylnmgi peptide B (Bld) [Mass/Vol]6846.0 pg/mLCritically high <=900.0The [facility] CenterComment on above:Performed By: #### LIPA, BNP, HSTROPN, CMP ####[facility] Zikrhndaor6806[address] [place], [place] [address]Dr. Kalie BessCBC AUTO DIFFon 49-06-0061FTLH #0.1 103/ulNormal0.0-0.1The [facility] CenterComment on above:Performed By: #### CBC ####[facility] Kliwdvtsqw8007[address] [place], [place] [address]Dr.Kalie ChangBasophils/100 WBC (Bld)0.6 %Normal0.2-2.0The [facility] Medical CenterComment on above:Performed By: #### CBC ####[facility] Eauksvjjcf7204[address] [place], [place] [address]Dr.Shayylan ChangEO #0.2 103/ulNormal0.0-0.7The [facility] CenterComment on above:Performed By: #### CBC ####[facility] Llauzectwf6951[address] [place], [place] [address]Dr.Kalie ChangEosinophils/100 WBC (Bld)1.3 %Normal 0.9-7.0The [facility] Medical CenterComment on above:Performed By: #### CBC ####[facility] Uaoncirzxj6487[address] [place], [place] [address]Dr.Kalie Bess Erythrocyte distribution width (RBC) [Ratio]13.9 %Xwomtk06.0-15.0The [facility] on above:Performed By: #### CBC ####[facility] Jucupllbmx96[address] [place], [place] [address]Dr.Kalie BessHematocrit (Bld) [Volume fraction]34.9 %Critically low36.0-48.0The [facility] Medical CenterComment on above:Performed By: #### CBC ####[facility] Qablufarfx1382[address] [place], [place] [address]Dr.Kalie BessHemoglobin (Bld) [Mass/Vol]11.2 g/dL Critically low12.0-16.0The [facility] CenterComment on above:Performed By: #### CBC ####[facility] Lrqxzgyiks7564[address] [place], [place] [address]Dr. Kalie ChangIG #0.24 10e3/ulCritically high0.00-0.03The Railroad HospitalComment on above:Performed By: #### CBC ####[facility] Ssuabzmfoz7437 [place] [address]Dr.Kalie BessIG %1.6 %Critically high0.0-0.5The [facility] Medical CenterComment on above:Performed By: #### CBC ####[facility] Zrukvgkjsp4772 [place] [address]Dr.Kalie WilsonH #4.0 103/ulCritically high1.2-3.8The [facility] CenterComment on above:Performed By: #### CBC ####[facility] Skhhlkcmyf5399 [place] [address]Dr.Kalie Wilsonhocytes/100 WBC (Bld)25.8 %Wqwiji53.5-60.0The [facility] CenterComment on above:Performed By: #### CBC ####[facility] Otqxkspvyj1367 [place] [address]Dr.Kalie BessDILEY RID[facility] DIFF REQ NONormalThe [facility] Medical CenterComment on above:Performed By: #### CBC ####[facility] Wbuwiiecke66[address] [place], [place] [address]Dr. Kalie BessUNITED [facility] (RBC) [Entitic mass]28.6 fyGvelom58.7-34.0[facility] Comment on above:Performed By: #### CBC ####[facility] Pbswtlzgvv0512[address] [place], [place] [address]Dr.Kalie ShahriarHC (RBC) [Mass/Vol]32.1 g/dL Fwtfei59.9-35.2Sal[facility] City HospitalComment on above:Performed By: #### CBC ####[facility] Bxaqujylax[address] [place], [place] [address]Dr. Kalie ShahriarV (RBC) [Entitic vol]89.0 wOXlajsc41.0-99.0The [facility] Comment on above:Performed By: #### CBC ####[facility] Jucexndtev4565[address] [place], [place] [address]Dr.Shayyroxie DavisO #1.2 103/ulCritically high0.3-0.8The [facility] CenterComment on above:Performed By: #### CBC ####[facility] Zhmcokzgrg6263 [place] [address]Dr. Kalie ChangMonocytes/100 WBC (Bld)8.1 %Normal1.7-12.0The [facility] Comment on above:Performed By: #### CBC ####[facility] Ztctdzbubl2980 [place] [address]Dr.Kalie ChangNEUT #9.6 103/ulCritically high1.4-6.5The [facility] CenterComment on above:Performed By: #### CBC ####[facility] Njjhhqfcqz8678[address] [place], [place] [address]Dr. Shayylan ChangNeutrophils/100 WBC (Bld)62.6 %Gpuwxs95.0-75.0The [facility] Comment on above:Performed By: #### CBC ####[facility] Bmgyawnlop0963[address] [place], [place] [address]Dr.Kalie BessPlatelet mean volume (Bld) [Entitic vol]11.2 fLNormal9.5-13.5The [facility] CenterComment on above: Performed By: #### CBC ####[facility] Ajicqeofpa2537[address] [place], [place] [address]Dr.Kalie DgeyoFAO555 103/dcPbnfep246-975Awh [facility] CenterComment on above:Performed By: #### CBC ####[facility] Roiyhlhhrv45[address] [place], [place] [address]Dr.Kalie ChangRBC3.92 106/ul Critically low4.20-5.40The [facility] CenterComment on above:Performed By: #### CBC ####[facility] Otcgobuheo1572[address] [place], [place] [address]Dr. Shayylan JrpkqCEC04.4 103/ulCritically high4.0-11.0The [facility] CenterComment on above:Performed By: #### CBC ####[facility] Egabkomapm1579[address] [place], [place] [address]Dr.Shayylan ChangCT ABD/PELV W Clifford 15-80-0670YZ ABD/PELV W CONNormalThe Railroad HospitalCTA CHEST WO W CONon 23-74-1635USZ CHEST WO W CONNormalSalem City HospitalCovid-19 PCR (CVDTBH)on 07-30-2022 SARS-CoV-2 (COVID-19) RNA CIPRIANO+probe Ql (Unsp spec)Not detectedNormalNOT DETECTED The [facility] Medical CenterComment on above:Result Comment: When diagnostic testing is negative, the possibility of a false negative should be considered inthe context of a patient's recent exposures and the presence of clinical signs and sympt omsconsistent with SARS-CoV-2.This test is not yet approved or cleared by the [place] FDA. When there are no FDA-approved or cleared tests available, and other criteria are met, FDA can make tests available under an emergency access mechanism called an Emergency Use Authorization (EUA). The EUA for this test is supported by the [place] of Health and Human Service's declaration that circumstances exist to justify the emergency use of in vitro diagnostics for the detection and/or diagnosis of the virus that causes COVID-19. This EUA will remain in effect for the duration of the COVID-19declaration justifying emergency of IVDs, unless it is terminated or revoked by the FDA (after which the test may no longer be used).Performed By: #### CVDTBH ####[facility] Weylhptqej2923[address] [place], [place] [address]Dr. Kalie BessLACTATE/LACTIC ACIDon 26-51-1729Swrdkhi [Moles/Vol]1.5 mmol/LNormal0.4-1.9The [facility] Comment on above:Performed By: #### LACT ####[facility] Obfsvboqeb[address] [place], [place] [address]DrCassie BessLIPASEon 54-30-2968Nraham [Catalytic activity/Vol]152.0 U/SRydbzh94.0-393.0The [facility] CenterComment on above:Performed By: #### LIPA, BNP, HSTROPN, CMP ####[facility] Dxxohehlxo99[address] [place] [address]Dr. Kalie BessPH VENOUS BLOODon 57-72-6252YTX4 MPGIHW38.9 ycRoUahfnn89.0-52.0The [facility] Comment on above:Performed By: #### PHVEN ####[facility] Afuxtrphga1092 [place] [address]Dr. Yiroxie ChangpH VENOUS7.451Critically high 7.330-7.430The [facility] CenterComment on above:Performed By: #### PHVEN ####[facility] Gllartlami2[address] [place] [address]Dr. Shayylan ChangPROF 14(COMP METB)on 03-24-6676Nlbfaeu [Mass/Vol]2.3 g/dLCritically low3.4-5.0The [facility] CenterComment on above:Performed By: #### LIPA, BNP, HSTROPN, CMP ####[facility] Yikggvbosy8[address] [place], [place] [address]Dr. Kalie ChangAlbumin/Globulin [Mass ratio]0.5 {ratio}NormalThe [facility] CenterComment on above:Performed By: #### LIPA, BNP, HSTROPN, CMP ####[facility] Qkjykcaqox8587[address] [place], [place] [address]Dr. Yilan ChangALP [Catalytic activity/Vol]100 U/RAlieqt81-392Yqt [facility] CenterComment on above:Performed By: #### LIPA, BNP, HSTROPN, CMP ####[facility] Xnlsceddok[address] [place], [place] [address]Dr. Yilan ChangALT [Catalytic activity/Vol]18 U/GGqqzcs30-20Txn [facility] CenterComment on above:Performed By: #### LIPA, BNP, HSTROPN, CMP ####[facility] Igjqekvkso09[address] [place], [place] [address]Dr. Shayylan ChangAnion gap [Moles/Vol]6.6 mmol/LNormal The [facility] CenterComment on above:Performed By: #### LIPA, BNP, HSTROPN, CMP ####[facility] Gvijcyridn14[address] [place], [place] [address]Dr. Yilan ChangAST [Catalytic activity/Vol]10 U/LCritically cpn58-61Iei [facility] CenterComment on above:Performed By: #### LIPA, BNP, HSTROPN, CMP ####[facility] Jrbqimccov7[address] [place] [address]Dr. Yilan Bess Bilirubin [Mass/Vol]0.3 mg/dLNormal0.2-1.0The [facility] CenterComment on above: Performed By: #### LIPA, BNP, HSTROPN, CMP ####[facility] Ndtkqtqnvr09[address] [place], [place] [address]Dr. Yilan ChangCalcium [Mass/Vol]8.7 mg/dL Normal8.5-10.1The [facility] CenterComment on above:Performed By: #### LIPA, BNP, HSTROPN, CMP ####[facility] Umydflhhxx4[address] [place], [place] [address]Dr. Yilan ChangChloride [Moles/Vol]99 mmol/SBxfwwl47-344Lsx [facility] CenterComment on above:Performed By: #### LIPA, BNP, HSTROPN, CMP ####[facility] Blbebeyyez57[address] [place], [place] [address]Dr. Yilan ChangCO2 [Moles/Vol]31.1 mmol/JZloxpt95.0-32.0The [facility] CenterComment on above: Performed By: #### LIPA, BNP, HSTROPN, CMP ####[facility] Cylejfszpu9664[address] [place], [place] [address]Dr. Yilan ChangCreatinine [Mass/Vol]1.34 mg/dLCritically high0.55-1.02The [facility] CenterComment on above:Performed By: #### LIPA, BNP, HSTROPN, CMP ####[facility] Kbtqraiuzc68[address] [place], [place] [address]Dr. Yilan ChangEGFR-AF RNAPBXZA17 mL/min/1.73m2 Critically low>=60The [facility] CenterComment on above:Performed By: #### LIPA, BNP, HSTROPN, CMP ####[facility] [address]zcfjehhtd[address] [place] [address]Dr. Yilan ChangEGFR-NON AF JSPKREDO42 mL/min/1.10n3Twyjlbpnud low>=60The [facility] CenterComment on above:Performed By: #### LIPA, BNP, HSTROPN, CMP ####[facility] Popghigljx9216 [place] [address]Dr. Yilan ChangGlobulin (S) [Mass/Vol]4.4 g/dLNoMadison Health Comment on above:Performed By: #### LIPA, BNP, HSTROPN, CMP ####[facility] Azdwoelxtk4[address] [place], [place] [address]Dr. Yilan Bess Glucose [Mass/Vol]226 mg/dLCritically pbei13-237Ihr [facility] CenterComment on above:Performed By: #### LIPA, BNP, HSTROPN, CMP ####[facility] Jqhtwlykcc11[address] [place], [place] [address]Dr. Yilan ChangPotassium [Moles/Vol]3.7 mmol/LNormal3.5-5.1The [facility] CenterComment on above: Performed By: #### LIPA, BNP, HSTROPN, CMP ####[facility] Kmigqiixyo9[address] [place], [place] [address]Dr. Yilan ChangProtein [Mass/Vol]6.7 g/dL Normal6.4-8.2The [facility] CenterComment on above:Performed By: #### LIPA, BNP, HSTROPN, CMP ####[facility] Movonbuesv[address] [place], [place] [address]Dr. Yilan ChangSodium [Moles/Vol]133 mmol/LCritically ali101-651Knu [facility] CenterComment on above:Performed By: #### LIPA, BNP, HSTROPN, CMP ####[facility] [address]pkzpfgrd0724[address] [place], [place] [address]Dr. Yilan ChangUrea nitrogen [Mass/Vol]23.0 mg/dLCritically high7.0-18.0The [facility] CenterComment on above:Performed By: #### LIPA, BNP, HSTROPN, CMP ####[facility] Aodnoehebs34[address] [place] [address]Dr. Kalie ShahriarUrea nitrogen/Creatinine [Mass ratio]17.2 mg/mgNoMadison HealthComstraith hospital for special surgery on above:Performed By: #### LIPA, BNP, HSTROPN, CMP ####[facility] Szyrfrpunv67[address] [place] [address]Dr. Shayyroxie Bess PROTIMEon 24-74-2552MIG Coag (PPP) [Relative time]1.08 {INR}NormalThe [facility] on above:Performed By: #### PTT, PT ####[facility] Lbwudhphyk75[address] [place] [address]Dr. Kalie BessINR GUIDELINES SEE BELOWSelect Medical Specialty Hospital - Southeast OhioComment on above:Result Comment: DESIRED INR: 2.0 - 3.0 CONDITIONS NOT LISTED BELOW 2.5 - 3.5 FOR PROSTHETIC HEART VALVE REPLACEMENT 2.5 - 3.5 RECURRENT THROMBOSISPerformed By: #### PTT, PT ####[facility] Zpfqvwiymp[address] [place], [place] [address]Dr. Shayyroxie BessPT Coag (PPP) [Time]11.6 sNormal9.0-11.6The [facility] on above:Performed By: #### PTT, PT ####[facility] Fegietvmwz9[address] [place] [address]Dr. Kalie BessPTTon 25-16-4391aNRA Coag (Bld) [Time]28.0 mCvsplv73.3-36.2The [facility] on above:Performed By: #### PTT, PT ####[facility] [address]mbntjprwn[address] [place], [place] [address]Dr. Kalie BessTROPONIN, HIGH SENSITIVITYon 65-61-6546EDYDHW26.4 pg/mL Normal4.0-51.3The [facility] on above:Result Comment: CUT-OFF POINTS HAVE BEEN ESTABLISHED BASED ON THE FOURTH UNIVERSAL DEFINITIONS OF MY OCARDIALINFARCTION. THE UPPER REFERENCE LIMIT (URL) OF TROPONIN, DEFINED THE 99TH PERCENTILE OFcTnI DISTRIBUTION IN A REFERENCE POPULATION, HAS BEEN CONFIRMED THE DECISION THRESHOLDFOR IN DIAGNOSIS.Performed By: #### HSTROPN ####[facility] [address]ies[address]ov[address] [place], [place] [address]Br. Kalie ElizondoTROP28.3 pg/mLNormal4.0-51.3The [facility] CenterComment on above: Result Comment: CUT-OFF POINTS HAVE BEEN ESTABLISHED BASED ON THE FOURTH UNIVERSAL DEFINITIONS OF MYOCARDIALINFARCTION. THE UPPER REFERENCE LIMIT (URL) OF TROPONIN, DEFINED THE 99TH PERCENTILE OFcTnI DISTRIBUTION IN A REFERENCE POPULATION, HAS BEEN CONFIRMED THE DECISION THRESHOLDFOR IN DIAGNOSIS. Performed By: #### LIPA, BNP, HSTROPN, CMP ####[facility] [facility] [address] [place], [place] [address]Fy. Kalie Almendarez Recordson 07-25-2022 Outside [id number]:[address] [place], [place] [address]Physician Orderon [id number] Order [id number]#1.00CD:[address] [place] [address] Vital Signs Date TimeVital SignValuePerforming NpsomvocpUaasdvqd69-73-6992 13:34-0500Body oixaii5207.2 cmDabraydendayne [employer] Work Phone: 1(413)175-[address] [place], [place] 8205211-04-2025 13:34-0500 Body mass index (BMI) [Ratio]0.6 kg/y1Wpdfhn Deras II Work Phone: 1(525)203-[address] [place], [place] 8205211-04-2025 13:34-0500 Body zvywdt01.17 kgDabraydendayne Deras II Work Phone: 1(845)477-[address] [place], [place] 8205211-04-2025 13:34-0500 Diastolic blood imrerywu57 mm[Hg]Ayaan Deras II Work Phone: 1(124)139-[address] [place], [place] 8205211-04-2025 13:34-0500 Heart rate87 /minDferdinand Deras II Work Phone: 1(419)[address]11-04-2025 13:34-0500 Systolic blood rywkizxo86 mm[Hg]Ayaan Deras II Work Phone: 1(068)[address] [place], [place] 5306911-04-2025 11:28-0500 Body objehy341.32 cmDaniel Deras II Work Phone: 1(500)[address] [place], [place] 5306911-04-2025 11:28-0500 Body mass index (BMI) [Ratio]42 kg/g7Rmxfyg Deras II Work Phone: 1(851)[address] [place], [place] 5306911-04-2025 11:28-0500 Body saupde53.17 kgDaniel Deras II Work Phone: 1(205)[address] [place], [place] 5306911-04-2025 10:58-0500 Body skdkzvrvlde88.1 [degF]Ayaan Deras II Work Phone: 1(432)[address] [place], [place] 5306911-04-2025 10:58-0500 Diastolic blood hiydkzso89 mm[Hg]Ayaan Deras II Work Phone: 1(479)[address] [place], [place] 5306911-04-2025 10:58-0500 Heart rate90 /minDaniel Deras II Work Phone: 1(475)[address] [place], [place] 5306911-04-2025 10:58-0500 Respiratory rate18 /minDaniel Deras II Work Phone: 1(051)[address] [place], [place] 5306911-04-2025 10:58-0500 Systolic blood iaspdwxj867 mm[Hg]Ayaan Deras II Work Phone: 1(061)[address] [place], [place] 5306910-21-2025 12:36-0400 Body ymtgbb561.32 cmDaniel Deras II Work Phone: 1(719)[address] [place], [place] 5306910-21-2025 12:36-0400 Body mass index (BMI) [Ratio]41.9 kg/d3Qqwqxv Deras II Work Phone: 1(659)[address] [place], [place] 5306910-21-2025 12:36-0400 Body dkshhrtduqh95.8 [degF]Ayaan Deras II Work Phone: 1(292)[address] [place], [place] 5306910-21-2025 12:36-0400 Body qcnopi02 kgDabraydenel Deras II Work Phone: 1(933)409-[address] [place], [place] 8205210-21-2025 12:36-0400 Diastolic blood qmtwmkuf13 mm[Hg]Ayaan Deras II Work Phone: 1(419)[address] [place], [place] 5306910-21-2025 12:36-0400 Heart rate82 /minDdaljitel Deras II Work Phone: 1(419)[address] [place], [place] 5306910-21-2025 12:36-0400 Respiratory rate16 /minDdaljitel Deras II Work Phone: 1(419)[address] [place], [place] 5306910-21-2025 12:36-0400 SaO2% (BldA) [Mass fraction]99 %Ayaan Deras II Work Phone: 1(419)[address] [place], [place] 5306910-21-2025 12:36-0400 Systolic blood ahfaosxa778 mm[Hg]Ayaan Deras II Work Phone: 1(419)[address] [place], [place] 5306910-07-2025 11:56-0400 Body .32 cmDabraydenel Deras II Work Phone: 1(419)[address] [place], [place] 5306910-07-2025 11:56-0400 Body mass index (BMI) [Ratio]42 kg/n4Ckbwph Deras II Work Phone: 1(419)[address] [place], [place] 5306910-07-2025 11:56-0400 Body tfspap71.17 kgDabraydenel Deras II Work Phone: 1(419)[address] [place], [place] 5306910-07-2025 11:30-0400 Body hcoyvdwcufc48.1 [degF]Ayaan Deras II Work Phone: 1419)[address] [place], [place] 5306910-07-2025 11:30-0400 Diastolic blood zchfnkfe12 mm[Hg]Ayaan Deras II Work Phone: 1(331)[address] [place], [place] 5306910-07-2025 11:30-0400 Heart rate88 /minDdaljitel Deras II Work Phone: 1(404)[address] [place], [place] 5306910-07-2025 11:30-0400 Systolic blood mrabjlfd994 mm[Hg]Ayaan Deras II Work Phone: 1(939)379-[address] [place], [place] 8205209-23-2025 11:22-0400 Respiratory rate18 /Edna Deras II Work Phone: 1(561)[address]09-18-2025 11:30-0400 Body ipyuhf268.3 cmDaravi Deras MD Work Phone: 1(140)[facility] [place], [place] [address]Jptrhwyiga94-91-0664 11:30-0400Body mass index (BMI) [Ratio]36.78 kg/f4XflvqjAyaan Deras MD Work Phone: 1(535)[facility] [place], [place] [address]Wkpveyrqfs71-58-0997 11:30-0400Body cqjdfo82.83 kgAyaan Deras MD Work Phone: 1(949)[facility]-[address] [place], [place] [address]Exigvgyhse35-70-0527 11:30-0400Diastolic blood mm[Hg]Ayaan Deras MD Work Phone: 1(213)[employer] [facility]-[address] [place], [place] [address]Vyidhbyhsb99-69-5213 11:30-0400Heart rate78 /min Ayaan Deras MD Work Phone: 1(859)[employer] [facility]-3038[facility] HospitalFrwjbyyegs25-50-7757 11:30-7938LlL6% (BldA) [Mass fraction]95 %Ayaan Deras MD Work Phone: [facility] HospitalTexpkkwnxt09-60-4941 11:30-0400Systolic blood kriufdyn508 mm[Hg]Ayaan Deras MD Work Phone: [facility] HospitalBydktdvrvt56-34-4283 13:04-0400Body temperature 98.1 [degF]Ayaan Deras II Work Phone: 1(156)112-[address] [place], [place] 8205209-16-2025 13:04-0400 Diastolic blood sspgcdee37 mm[Hg]Ayaan Deras II Work Phone: 1(076)941-[address] [place], [place] 8205209-16-2025 13:04-0400 Heart rate87 /Edna Deras II Work Phone: 1(957)921-[address] [place], [place] 8205209-16-2025 13:04-0400 Respiratory rate18 /Edna Deras II Work Phone: 1(419)[address]09-16-2025 13:04-0400 SaO2% (BldA) [Mass fraction]97 %Ayaan Deras II Work Phone: 1(923)[address]09-16-2025 13:04-0400 Systolic blood mlnbjlly244 mm[Hg]Ayaan Deras II Work Phone: 1419)[address] [place], [place] 5306909-02-2025 10:24-0400 Body cbcvuv507.32 cmDaravi Deras II Work Phone: 1(419)[address]09-02-2025 10:24-0400 Body mass index (BMI) [Ratio]42 kg/p7Kopqle Deras II Work Phone: 1(777)[address] [place], [place] 5306909-02-2025 10:24-0400 Body vmejid43.17 kgDaravi Deras II Work Phone: 1(278)[address] [place], [place] 5306909-02-2025 09:58-0400 Body gtycxgqclgr39.4 [degF]Ayaan Deras II Work Phone: 1(443)[address]09-02-2025 09:58-0400 Diastolic blood mm[Hg]Ayaan Deras II Work Phone: 1(654)[address]09-02-2025 09:58-0400 Heart rate92 /minDdaljitel Deras II Work Phone: 1(146)[address] [place], [place] 5306909-02-2025 09:58-0400 Systolic blood mm[Hg]Ayaan Deras II Work Phone: 1(194)[address]08-22-2025 14:15-0400 Body bcrtadkkbdn14.3 [degF]Ayaan Deras II Work Phone: 1(340)736[address]08-22-2025 14:15-0400 Diastolic blood tblljomj41 mm[Hg]Ayaan Deras II Work Phone: 1(565)59[address]08-22-2025 14:15-0400 Heart rate88 /minDdaljitel Deras II Work Phone: 1(343)[address] [place], [place] 5306908-22-2025 14:15-0400 Respiratory rate16 /minDdaljitel Deras II Work Phone: 1(943)[address] [place], [place] 5306908-22-2025 14:15-0400 SaO2% (BldA) [Mass fraction]99 %Ayaan Deras II Work Phone: 1(381)[address] [place], [place] 5306908-22-2025 14:15-0400 Systolic blood escopbzf726 mm[Hg]Ayaan Deras II Work Phone: 1(354)29[address]08-22-2025 13:00-0400 Diastolic blood ktnlymvz43 mm[Hg]Ayaan Deras II Work Phone: 1(817)[address] [place], [place] 5306908-22-2025 13:00-0400 Heart rate82 /Farrahel Deras II Work Phone: 1(777)[address] [place], [place] 5306908-22-2025 13:00-0400 Systolic blood bqvcitav44 mm[Hg]Ayaan Deras II Work Phone: 1(742)[address] [place], [place] 5306908-22-2025 10:30-0400 Respiratory rate16 /Edna Deras II Work Phone: 1(621)[address] [place], [place] 5306908-22-2025 10:30-0400 SaO2% (BldA) [Mass fraction]91 %Ayaan Deras II Work Phone: 1(974)[address] [place], [place] 5306908-22-2025 09:45-0400 Body kstznwrwyfo87.3 [degF]Ayaan Deras II Work Phone: 1(931)[address] [place], [place] 5306908-22-2025 09:45-0400 Inhaled oxygen flow rate6 L/Farrahel Deras II Work Phone: 1(747)[address] [place], [place] 5306908-22-2025 05:39-0400 Body .4 kgDabraydenel Deras II Work Phone: 1(928)[address] [place], [place] 5306908-21-2025 17:26-0400 Body tjunyo688.32 cmDabraydendayne Deras II Work Phone: 1(344)[address]08-12-2025 13:40-0400 Diastolic blood xqyycnrz31 mm[Hg]Hari Powell DO Work Phone: 1(401)895-[address] [place], [place] 4374908-12-2025 13:40-0400 Heart rate88 /Romahawn Powell DO Work Phone: 1(935)178-[address] [place], [place] 4374908-12-2025 13:40-0400 Respiratory rate16 /Romahawn Powell DO Work Phone: 1(805)379-[address] [place], [place] 4374908-12-2025 13:40-0400 SaO2% (BldA) [Mass fraction]96 %Hari Powell DO Work Phone: 1(398)[address] [place], [place] 3475908-12-2025 13:40-0400 Systolic blood cidnascf376 mm[Hg]Hari Powell DO Work Phone: 1(073)[address] [place], [place] 3475908-12-2025 13:10-0400 Body jtgdfjdaflx72.6 [degF]Hari Powell DO Work Phone: 1(090)[address] [place], [place] 3475908-12-2025 13:10-0400 Inhaled oxygen flow rate6 L/Romahawn Powell DO Work Phone: 1(995)[address] [place], [place] 3475908-12-2025 10:43-0400 Body airqde592.32 Lee Annhawn Powell DO Work Phone: 1(242)214-[address] [place], [place] 4374908-12-2025 10:43-0400 Body igziea26.56 kgShawn Powell DO Work Phone: 1(193)643-[address] [place], [place] 4374908-05-2025 10:15-0400 Body unflua389.32 Lee Annhawn Powell DO Work Phone: 1(511)413-[address] [place], [place] 4374908-05-2025 10:15-0400 Body mass index (BMI) [Ratio]42 kg/y4Euujb Powell DO Work Phone: 1(082)486-[address] [place], [place] 4374908-05-2025 10:15-0400 Body satkja39.17 kgShawn Powell DO Work Phone: [address] [place], [place] 1564108-05-2025 09:22-0400 Body rvhxmdxehxa13.2 [degF]Hari Powell DO Work Phone: [address] [place], [place] 1564108-05-2025 09:22-0400 Diastolic blood uufakwza33 mm[Hg]Hari Powell DO Work Phone: 1419)324-[address] [place], [place] 4374908-05-2025 09:22-0400 Heart rate93 /minShawn Powell DO Work Phone: 1419)913-[address] [place], [place] 4374908-05-2025 09:22-0400 Respiratory rate18 /minShawn Powell DO Work Phone: 1(808)[address]08-05-2025 09:22-0400 Systolic blood mm[Hg]Hari Powell DO Work Phone: 1(192)324-[address] [place], [place] 4374907-23-2025 13:10-0400 Body umaiymvmaaz13.1 [degF]Hari Powell DO Work Phone: 1(596)414-[address] [place], [place] 4374907-23-2025 13:10-0400 Diastolic blood kficbxvn80 mm[Hg]Hari Powell DO Work Phone: 1(289)944-[address] [place], [place] 4374907-23-2025 13:10-0400 Heart rate80 /minShawn Powell DO Work Phone: 1(967)665-[address] [place], [place] 4374907-23-2025 13:10-0400 Respiratory rate18 /minShawn Powell DO Work Phone: 1419)402-[address] [place], [place] 4374907-23-2025 13:10-0400 SaO2% (BldA) [Mass fraction]95 %Hari Powell DO Work Phone: 1(391)980-[address] [place], [place] 4374907-23-2025 13:10-0400 Systolic blood orfhtqls758 mm[Hg]Hari Powell DO Work Phone: 1(947)903-[address] [place], [place] 4374907-23-2025 06:12-0400 Body cocrbk13.9 kgShawn Powell DO Work Phone: [address] [place], [place] 5507407-21-2025 16:00-0400 Inhaled oxygen flow rate2 L/minShawn Powell DO Work Phone: [address] [place], [place] 5507407-14-2025 20:30-0400 Body ypboqy643.32 cmShawn Powell DO Work Phone: [address] [place], [place] 5507407-14-2025 19:47-0400 Diastolic blood axdbjqqc60 mm[Hg]Hari Powell DO Work Phone: [address] [place], [place] 5507407-14-2025 19:47-0400 Heart jnan304 /minShawn Powell DO Work Phone: [address] [place], [place] 5507407-14-2025 19:47-0400 Respiratory rate20 /minShawn Powell DO Work Phone: 1419)[address] [place], [place] 5507407-14-2025 19:47-0400 SaO2% (BldA) [Mass fraction]95 %Hari Powell DO Work Phone: 1(333)[address] [place], [place] 5507407-14-2025 19:47-0400 Systolic blood mm[Hg]Hari Powell DO Work Phone: 1(541)[address] [place], [place] 5507407-14-2025 18:22-0400 Body uwnfarwxkzq57.3 [degF]Hari Powell DO Work Phone: [address] [place], [place] 5507407-14-2025 13:11-0400 Body uievkw894.32 cmShawn Powell DO Work Phone: 1(676)[address] [place], [place] 5507407-14-2025 13:11-0400 Body ewjakx84.25 kgShawn Powell DO Work Phone: 1(177)[address] [place], [place] 5507407-01-2025 12:12-0400 Body wyhlwv541.32 cmShawn Powell DO Work Phone: [address] [place], [place] 5507407-01-2025 12:12-0400 Body mass index (BMI) [Ratio]33.6 kg/h7Mkknk Powell DO Work Phone: 1(991)[address] [place], [place] 3475907-01-2025 12:12-0400 Body hrjqgejrcyl36 [degF]Hari Powell DO Work Phone: 1419)[address] [place], [place] 3475907-01-2025 12:12-0400 Body zayvdb73.02 kgShawn Powell DO Work Phone: 1419)[address] [place], [place] 3475907-01-2025 12:12-0400 Diastolic blood cibdwazx55 mm[Hg]Hari Powell DO Work Phone: 1419)[address] [place], [place] 3475907-01-2025 12:12-0400 Heart rate83 /minShawn Powell DO Work Phone: [address] [place], [place] 5507407-01-2025 12:12-0400 SaO2% (BldA) [Mass fraction]99 %Hari Powell DO Work Phone: 1(415)[address] [place], [place] 3475907-01-2025 12:12-0400 Systolic blood bqngeobg042 mm[Hg]Hari Powell DO Work Phone: 1(796)[address] [place], [place] 3475907-01-2025 11:21-0400 Body fyodem314.32 cmShawn Powell DO Work Phone: 1(690)[address] [place], [place] 5507407-01-2025 11:21-0400 Body mass index (BMI) [Ratio]42 kg/y6Gqsgv Powell DO Work Phone: [address] [place], [place] 5507407-01-2025 11:21-0400 Body jzuqhz53.17 kgShawn Powell DO Work Phone: [address] [place], [place] 5507407-01-2025 10:27-0400 Body beiadedwmxv85.5 [degF]Hari Powell DO Work Phone: 1(437)[address] [place], [place] 5507407-01-2025 10:27-0400 Diastolic blood uwsypgcw54 mm[Hg]Hari Powell DO Work Phone: [facility]07-01-2025 10:27-0400 Heart rate96 /minShawn Powell DO Work Phone: [facility]07-01-2025 10:27-0400 Respiratory rate18 /minShawn Powell DO Work Phone: [facility]07-01-2025 10:27-0400 Systolic blood smrblswi207 mm[Hg]Hari Powell DO Work Phone: [facility]06-23-2025 10:28-0400 Body .3 cmDaravi Deras MD Work Phone: [facility] HospitalFigthkeash88-50-8195 10:28-0400Body mass index (BMI) [Ratio]34.28 kg/r1SjzweiAyaan Deras MD Work Phone: [facility] HospitalHpdpubpdfz18-44-9636 10:28040Body farldm82.39 kgAyaan Deras MD Work Phone: [facility] HospitalCcrjsinilf51-43-0894 10:28040Diastolic blood wxrikpqz31 mm[Hg]Ayaan Deras MD Work Phone: [facility] HospitalGbuoluiiaz72-87-9659 10:280400Heart rate79 /min Ayaan Deras MD Work Phone: 1(038)039-[address] [place], [place] [address]Ipmevaqtqk40-30-5929 10:288943LpF4% (BldA) [Mass fraction]94 %Ayaan Deras MD Work Phone: [facility] HospitalQdphrsreih17-51-3593 10:280400Systolic blood htqnmlme781 mm[Hg]Ayaan Deras MD Work Phone: [facility] HospitalGpxpthouoj95-79-2660 14:15-0400Diastolic blood zlpqffsa81 mm[Hg]Hari Powell DO Work Phone: [facility]06-10-2025 14:15-0400 Heart rate80 /minShawn Powell DO Work Phone: 1419)[address] [place], [place] 5507406-10-2025 14:15-0400 Respiratory rate16 /minShawn Powell DO Work Phone: 1419)[address] [place], [place] 5507406-10-2025 14:15-0400 SaO2% (BldA) [Mass fraction]94 %Hari Powell DO Work Phone: 1419)[address] [place], [place] 5507406-10-2025 14:15-0400 Systolic blood vjlljwmy636 mm[Hg]Hari Powell DO Work Phone: 1419)[address] [place], [place] 5507406-10-2025 13:30-0400 Body azanyvytgyz22.2 [degF]Hari Powell DO Work Phone: 1419)[address] [place], [place] 5507406-10-2025 13:30-0400 Inhaled oxygen flow rate6 L/Romahawn Powell DO Work Phone: 1419)[address] [place], [place] 5507406-10-2025 10:30-0400 Body drueev477.32 cmShawn Powell DO Work Phone: 1419)[address] [place], [place] 5507406-10-2025 10:30-0400 Body jsnjfu21 kgShawn Powell DO Work Phone: 1419)[address] [place], [place] 5507406-03-2025 10:52-0400 Body slctur432.32 cmShawn Powell DO Work Phone: 1419)[address] [place], [place] 5507406-03-2025 10:52-0400 Body mass index (BMI) [Ratio]42 kg/u3Ybcso Powell DO Work Phone: 1419)[address] [place], [place] 5507406-03-2025 10:52-0400 Body .17 kgShawn Powell DO Work Phone: 1419)[address] [place], [place] 5507406-03-2025 10:07-0400 Body zgkuwnheriu48.8 [degF]Hari Powell DO Work Phone: [phone])557-7400[facility]06-03-2025 10:07-0400 Diastolic blood whrexcbb10 mm[Hg]Hari Powell DO Work Phone: [facility]06-03-2025 10:07-0400 Heart rate87 /Romahawn Powell DO Work Phone: [facility]06-03-2025 10:07-0400 Respiratory rate18 /minShawn Powell DO Work Phone: [facility]06-03-2025 10:07-0400 Systolic blood klyvbbaw247 mm[Hg]Hair Powell DO Work Phone: [facility]05-20-2025 14:01-0400 Body kjfqoa897.3 cmKaren Hemmer PA Work Phone: [facility] HospitalIqfjixvdpp28-06-8377 14:01-0400Body mass index (BMI) [Ratio]41.3 kg/z3Jrjrz Hemmer PA Work Phone: 1(851)390-[address] [place], [place] [address]Zjhtmdagsn65-40-6119 14:01-0400Body iyjwlz35.63 kgKaren Hemmer PA Work Phone: [facility] HospitalMtmrblvvco79-15-9717 14:01-0400Diastolic blood vcwsjmwa35 mm[Hg]Ernestina Hemmer PA Work Phone: [facility] HospitalViyaqacvmd69-58-4717 14:01-0400Heart rate87 /min Ernestina Hemmer PA Work Phone: [facility] HospitalSrymcrjeoy11-07-7805 14:01-0400Respiratory rate16 /minChuckyen Hemmer PA Work Phone: [facility] HospitalLefzdoxdmf61-17-7666 14:01-8590OtP7% (BldA) [Mass fraction]96 %Ernestina Hemmer PA Work Phone: [facility] HospitalQnpdtopfll63-36-5607 14:01-0400Systolic blood erwdjxtt712 mm[Hg]Ernestina Hemmer PA Work Phone: 1(043)827-[address] [place], [place] [address]Dlbwrmnxig65-89-5956 13:39-0400Body temperature 98.5 [degF]Hari Powell DO Work Phone: [address] [place], [place] 1564105-16-2025 13:39-0400 Diastolic blood zaglzvvb37 mm[Hg]Hari Powell DO Work Phone: [address] [place], [place] 1564105-16-2025 13:39-0400 Heart rate75 /minShawn Powell DO Work Phone: 1(098)559-[address] [place], [place] 4374905-16-2025 13:39-0400 Respiratory rate18 /minShawn Powell DO Work Phone: 1(802)886-[address] [place], [place] 4374905-16-2025 13:39-0400 SaO2% (BldA) [Mass fraction]94 %Hari Powell DO Work Phone: 1(743)[address]05-16-2025 13:39-0400 Systolic blood caevmfzm463 mm[Hg]Hari Powell DO Work Phone: 1(336)[address]05-16-2025 10:20-0400 Inhaled oxygen flow rate3 L/minShawn Powell DO Work Phone: 1(053)251-[address] [place], [place] 4374905-16-2025 06:45-0400 Body etsyie01.9 kgShawn Powell DO Work Phone: 1(412)015-[address] [place], [place] 4374905-12-2025 15:37-0400 Body .86 cmShawn Powell DO Work Phone: 1(838)880-[address] [place], [place] 4374905-05-2025 20:38-0400 Body eyjqgmgpihk51.9 [degF]Hari Powell DO Work Phone: 1(388)835-[address] [place], [place] 4374905-05-2025 20:38-0400 Diastolic blood ezbhqsct46 mm[Hg]Hari Powell DO Work Phone: [address] [place], [place] 1564105-05-2025 20:38-0400 Heart rate90 /minShawn Powell DO Work Phone: [facility]05-05-2025 20:38-0400 Respiratory rate16 /minShawn Powell DO Work Phone: [address] [place], [place] 1564105-05-2025 20:38-0400 SaO2% (BldA) [Mass fraction]95 %Hari Powell DO Work Phone: [facility]05-05-2025 20:38-0400 Systolic blood htplubjz892 mm[Hg]Hari Powell DO Work Phone: 1(112)522-[address] [place], [place] 4374905-05-2025 16:00-0400 Inhaled oxygen flow rate2 L/Romahawn Powell DO Work Phone: 1(358)810-[address] [place], [place] 4374905-05-2025 15:23-0400 Body .86 cmShawn Powell DO Work Phone: 1(365)065-[address] [place], [place] 4374905-05-2025 06:20-0400 Body .8 kgawn Powell DO Work Phone: 1(568)013-[address] [place] [address] Encounters Encounter DateEncounter TypeCare ProviderFacilityStart: 08-29-2025 End: 06-90-0659kgponmauucFfvjus Berry II Work Phone: 2(020)605-2118309-1671-Nlszjffkc Health GastroStart: 08-29-2025 End: 29-56-9861Pwjlwna encounter procedureCarolyn Ramsey MD-[facility] Gastro Work Phone: Start: 79-98-1868Tnobjvufcs Ellis Chavez MD- [facility] Work Phone: Start: 08-15-2025 End: 66-32-8303Unqzebc encounter procedureNestor Wrgiht MD-[facility] Health Vascular Surg Work Phone: Start: 08-15-2025 End: 92-57-3054tsiqnoicerDhyemz Deras II Work Phone: 8(449)864-0063516-7366-Xrwnhbhqv Health Vascular SurgStart: 08-01-2025 Registered Ellis Chavez MD-[facility] Work Phone: Start: 78-39-2489Jqm-patient / Non-visitJessica Christian MD-[facility] Work Phone: Start: 07-13-2025 End: 44-39-3888Eduwdj outpatient visit 25 minutesAyaan Deras MD Work Phone: [facility] on above:Type 2 diabetes mellitus with diabetic neuropathy, with long-term current use of insulin (HCC) (Primary Dx); Radiculopathy, lumbar region; Chronic diastolic heart failure (HCC); Type 2 diabetes 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, with long-term current use of insulin (HCC); GERD without esophagitis; ESRD (end stage renal disease) (HCC); Open wound of abdominal wall, subsequent encounterStart: 07-13-2025 End: 56-59-5114rzvcwdgftsXICHXN B BERRYNot AvailableStart: 07-11-2025 End: 98-45-4004ofypsgjyigYqhyje Berry II Work Phone: [facility] Work Phone: Start: 07-11-2025 End: 90-61-1797Ofpujro encounter procedureGeneva Bell APRN-[facility] Vascular Surg Work Phone: Start: 26-76-1242Wzuzkvyvbx Ellis Chavez MD- [facility] Work Phone: Start: 03-00-6749Xgy-patient / Non-visitJessica Christian MD-[facility] Work Phone: Start: 67-40-4366Tzw-patient / Non-visitLiliana Soliz MD-[facility] Infect Dis Work Phone: Start: 06-15-2025 End: 35-83-4792Uztiprqmdt and management of inpatientNestor Lawrencepradeeparslan [facility] End: 12-57-8944Sjkedrlb Result EncounterJuan Carlos Chavez MD Work Phone: [facility] External Department UnsolicitedStart: 06-06-2025 End: 43-68-9846Wzrxligp Result EncounterJuan Carlos Schmitt MD Work Phone: [facility] External Department UnsolicitedStart: 06-06-2025 End: 44-80-7604Adylhmvfx to same day surgery centerJuan Carlos Chavez MD-[facility]: 06-06[facility]2025 End: 30-98-6865zsfxureyznWssva J Warner DO Work Phone: [facility] Work Phone: Start: 78-88-7303izqhpczwmcPahxaa Deras [facility]: 95-83-6085Tqkjicyesa Recurring Juan Carlos Chavez MD-[facility] [place] Work Phone: Start: 39-40-2328Ugj-patient / Non-visitJessica Christian MD-[facility] Work Phone: Start: 29-02-1352Apu-patient / Non-visitRodo Hopkins MD-[facility] Neph [facility] Work Phone: Start: 05-10-2025 End: 68-62-0477Bpypebcm Result EncounterJuan Carlos Chavez MD Work Phone: [facility] External Department UnsolicitedStart: 05-10-2025 End: 74-70-3975Xuntbcyq Result Jaquelin Schmitt MD Work Phone: [facility] External Department UnsolicitedStart: 05-08-2025 End: 16-49-3509Exmjdcusvi and management of inpatientXavier Mello MD-[facility] Work Phone: Start: 59-59-1617Mle-patient / Non-visitMicsonny Soliz MD-[facility] Infect Dis Work Phone: Start: 04-25-2025 End: 54-80-9890ojupniootmOqkxj J Warner DO Work Phone: [facility] Work Phone: Start: 04-25-2025 End: 04-91-4904Snldeag encounter procedureNestor Wright MD-[facility] V[facility] S[facility] Work Phone: Start: 70-82-9175Nnigctnakk Ellis Chavez MD- [facility] [place] Work Phone: Start: 04-18-2025 End: 26-14-3665Swiljob encounter procedureRodo Hopkins MD-[facility] [place] Work Phone: Start: 04-18-2025 End: 45-11-3473xorjjywszkMqcub MichelleFacility:[facility] Start: 01-78-6707Npqxrtoxh for other preprocedural examinationEssam Doernbecher [facility] Phys[facility] GroupStart: 66-95-5109Jza-patient / Non-visitRodo Hopkins MD-[facility] Work Phone: Start: 04-17-2025 End: 77-15-9951Nzhzmd flowsJohn Paul Deras MD Work Phone: [facility] FMStart: 04-17-2025 End: 67-37-6578Kspoof Javier Deras MD Work Phone: [facility] FMStart: 04-17-2025 End: 56-71-3652Bhdnhr outpatient visit 25 minutesDaravi Deras MD Work Phone: [facility] FMComment on above:Open wound of abdominal wall, subsequent encounter (Primary Dx); C. 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 (HCC)Start: 04-17-2025 End: 85-00-2157bvxalaxphmLYLZDG B BERRYNot AvailableStart: 04-13-2025 End: 13-05-5767CznawfKqhvqhk ClausNOMS CI FMComment on above:Chronic diastolic heart failure (HCC) (Primary Dx); GERD without esophagitisStart: 04-04-2025 End: 70-87-7722Psfvwlpu Result EncounterJuan Carlos Chavez MD Work Phone: noms External Department UnsolicitedStart: 04-04-2025 End: 78-17-3553Gisydmhr Result EncounterJuan Carlos Schmitt MD Work Phone: noms External Department UnsolicitedStart: 04-04-2025 End: 17-75-0517Qkedsukqd to same day surgery [facility] DO Work Phone: [facility] HospitalStart: 04-04-2025 End: 91-77-5380njokuffrrpIqgea J Warner DO Work Phone: [facility] Work Phone: Start: 03-30-2025 End: 43-48-6693Vliqxda encounter procedureSalissa Powell DO Work Phone: [facility]-Pre-Surgical Testing Work Phone: Start: 03-30-2025 End: 24-09-3832sxkhqieekwCfkue J Warner DO Work Phone: [facility] Work Phone: Start: 39-16-4088Piqgciujcz [facility] HospitalHari Powell DO Work Phone: [facility] [place] Work Phone: Start: 90-14-1049Hwh-patient / Non-visitRodo Hopkins MD-[facility] Work Phone: Start: 03-14-2025 End: 75-12-8266Mswlkm outpatient visit 40 minutesErnestina GO Work Phone: NOMS CI FMComment on above:Type 2 diabetes 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, with long-term current use of insulin ([facility]) (Primary Dx); C. difficile diarrhea; ESRD (end stage renal disease) ([facility]); Skin necrosis (CMS/HCC); 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 2 diabetes mellitus ([facility]); Calciphylaxis; Hypertension secondary to other renal disorders; Gastroparesis; Anemia of chronic renal failure, stage 5 ([facility]); Acute gastritis without hemorrhage, unspecified gastritis type; Physical deconditioningStart: 03-14-2025 End: 19-66-2719mbhgfjqjedRBSDOAdriana Ferrera AvailableStart: 92-08-3588Laq-patient / Non-visitShawn Powell DO Work Phone: [facility] Physician [facility] Neph Sand Work Phone: Start: 62-42-1191Div-patient / Non-visitShawn Powell DO Work Phone: [facility] Physician [facility] Infect Dis Work Phone: Start: 19-77-1598Naa-patient / Non-visitShawn Powell DO Work Phone: [facility] Neph [facility] Work Phone: Start: 25-04-5362Dzw-patient / Non-visitShawn Powell DO Work Phone: [facility] Physician [facility] Infect Dis Work Phone: Start: 88-89-5153Hab-patient / Non-visitShawn Powell DO Work Phone: [facility] Physician [facility] Gastro Work Phone: Start: 02-27-2025 End: 35-36-7142Tsezlrkm ReferredShawn Powell DO Work Phone: [facility] Work Phone: Start: 02-27-2025 End: 49-94-9676ubchhxrywiMyymt J Powell DO Work Phone: [facility] Work Phone: Start: 29-20-9687Vpcsaiy encounter statusShjessica Crookner DO Work Phone: [facility]: 19-83-0214Zes- patient / Non-visitShawn Powell DO Work Phone: [facility] Physician [facility] Out[facility] Work Phone: Start: 02-24-2025 End: 35-18-7806Cfmseuqm Result EncounterPaul C Laffay DO Work Phone: [facility] External Department UnsolicitedStart: 02-24-2025 End: 16-80-0531Kpbouzlg Result EncounterPaul C Laffay DO Work Phone: noms External Department UnsolicitedStart: 02-24-2025 Non-patient / Non-visitShawn Powell DO Work Phone: [facility] Physician [facility] Vascular Surg Work Phone: Start: 41-84-3640Vtr-patient / Non-visitShawn Powell DO Work Phone: [facility] Neph [facility] Work Phone: Start: 02-23-2025 End: 35-85-0062Hnlrtsr encounter statusKemal Angel Audeliacait [facility]: 02-23-2025 End: 34-24-3880Chppbvkbi for other general examinationShawn Powell DO Work Phone: [facility]: 02-23-2025 End: 54-64-3989Wghbneeyfr and management of inpatientShawn Powell DO Work Phone: [facility]-[address] [place] Med Surg Work Phone: Start: 12-21-2024 End: 58-65-9254Ahfykyddc encounterAyaan Deras MD Work Phone: noMS FMComment on above:Appointment RequestStart: 11-25-2023 End: 42-51-4472bzldfhxmzrZFGBMRJ [facility]: 04-30-2023 End: 47-36-1311klthmqzwmeYnmf Asaad Other Nort [employer] Other Start: 43-75-9212Yvsghuwmw encounterImad AsaadFPG Referral CoordinatorStart: 02-12-2023 End: 65-32-7194giggbnxmelEE DANIEL BERRYFacility:E6Qyjmf: 01-29-2023 End: 99-60-8661echutrqkdwPLYC TAMLYN .Facility:P3Xeuyn: 01-22-2023 End: 66-79-8858vpgvcujbwoYIOM TAMLYN .Facility:C4Qvpxq: 01-15-2023 End: 11-66-7446fliwktsiatPFFX TAMLYN .Facility:T5Otocn: 01-08-2023 End: 13-20-1495itudnrnoprVGOU TAMLYN .Facility:H0Wmhuo: 01-01-2023 End: 20-60-3511eqycqexrucXCBL TAMLYN .Facility:V7Eiwlq: 12-26-2022 End: 87-39-9818zbldutpawzQR AYAAN DERASFacility:F8Xinjt: 12-25-2022 End: 30-33-2779zjppqkfxcfOFYP TAMLYN .Facility:K5Tqdsh: 12-18-2022 End: 32-70-7610gfspwkfgthFWFO TAMLYN .Facility:E9Ibjdk: 12-11-2022 End: 36-69-1204vcvuwaobaqDDJZ TAMLYN .Facility:M0Vkapg: 12-01-2022 End: 87-06-6743oovzkyjwedGDQV TAMLYN .Facility:I2Hgpcy: 11-21-2022 End: 04-19-6211Lqryqmdxtu and management of inpatientTODD TAMLYN .Facility:H1 Start: 07-30-2022 End: 51-83-1675Yowattzxvb and management of inpatientDR AYAAN DERASFacility:H1 Start: 04-20-2022 End: 43-59-3354awwmuhpdfiZP AYAAN DERASFacility:H1 Procedures DateProcedureProcedure DetailPerforming ClinicianStart: 08-15-2025 Ultrasonography of arteriovenous fistulaDael Deras II Work Phone: Start: 69-04-8148Zkyaaaqswi glycosylated r5iDfsaxsAyaan Deras MD Work Phone: Start: 18-83-6571UBSQZIR POCT GLUCOMETERSJuan Carlos Chavez MD Work Phone: Start: 74-16-2233LfwrwhcatfoPemhh Warner DO Work Phone: Start: 64-19-0213RHVLUDQ POCT GLUCOMETERSJuan Carlos Chavez MD Work Phone: Start: 29-82-9016Pvimd metabolic panel calcium total Juan Carlos Chavez MD Work Phone: Start: 68-07-1761TCQNRPW Ligia Chavez MD Work Phone: Start: 52-57-5298GBPNZKVDF Ligia Chavez MD Work Phone: Start: 43-55-3861Cohongh microbial cultureDclearsky rehabilitation hospital of [facility] Deras II Work Phone: Start: 77-98-2651Jwqlgzhet microbial cultureDclearsky rehabilitation hospital of [facility] Deras II Work Phone: Start: 22-27-8280UrqhbmpkmzfNtdkzg Deras II Work Phone: Start: 92-76-4127Rlqe stain microscopyDaniel Deras II Work Phone: Start: 95-17-9215NCPHGYXZO REQUEST FOR LAB CORPJuan Carlos Chavez MD Work Phone: Start: 04-92-6122Ocnwy cultureDredwood memorial hospitaldayne Deras II Work Phone: Start: 21-41-4082Pmnnfupe screenKristopher Lindbloom Comment on above:Order Comment: Transfuse now? Y Number of units to transfuse now? 1 Transfuse now? Y Number of units to transfuse now? 1Result Comment: PERFORMED BY:[facility] [place] [phone] MEDICAL DIRECTORLANDRY LEE M.D.Start: 43-42-8081Dfvuzgm microbial cultureDUnique Property Work Phone: Start: 37-32-7292Qkthngyp identified in Blood by [employer] Work Phone: Start: 28-22-2604Etnntvfc tomography of abdomen and pelvis with contrastShaw Andre DO Work Phone: Start: 01-38-7607Bhwyh chest X-Teri Powell DO Work Phone: Start: 48-50-4623IV angiographyShst. louis behavioral medicine institute Powell DO Work Phone: Start: 01-29-4343Eadiryjwla glycosylated m7nWimegrravi Deras MD Work Phone: Start: 17-96-3215BPJVDUO POCT GLUCOMETERSJuan Carlos Chavez MD Work Phone: Start: 29-80-8623UnjdzbrngrhQolxe Powell DO Work Phone: Start: 87-14-6231EEOZORQ POCT GLUCOMETERSJuan Carlos Chavez MD Work Phone: Start: 16-32-4660Jffbsakq screenKemal Yu Comment on above:Order Comment: Transfuse now? Y Number of units to transfuse now? 1Result Comment: PERFORMED BY:[facility] [place] [phone] MEDICAL JUANA FLORES M.D.Start: 13-05-9538Ivadh immunofixationSalissa Powell DO Work Phone: Comment on above:Presence of monoclonal protein is unclear at this time. Suggestrepeat in 3 to 6 months if clinically indicated. Start: 64-52-1006Ugshkqif identified in Blood by CultureScorewell health zeeland hospital Powell DO Work Phone: Start: 24-41-6650SX of abdomen and pelvis without contrastScorewell health zeeland hospital Powell DO Work Phone: Start: 01-16-4864Lexewwbmgkvd gastric emptying study [facility] Powell DO Work Phone: Start: 07-45-0641BF of abdomen and pelvis without contrastScorewell health zeeland hospital Powell DO Work Phone: Start: 21-11-1349DVNSYPL CULTUREPaul C Lafmcintosh DO Work Phone: Start: 72-72-9285YZFKCLEUB CULTUREPaul C [facility] DO Work Phone: Start: 02-83-9318NydfvmszfapRqdes Powell DO Work Phone: Start: 57-64-1152Kthzb chest X-Teri Powell DO Work Phone: Start: 99-02-4804Aacefliiikui guidanceKenmore Hospital Powell DO Work Phone: Start: 39-84-4401Snamlji microbial cultureScorewell health zeeland hospital Powell DO Work Phone: Start: 97-14-2550Cudpwqgvb microbial cultureScorewell health zeeland hospital Powell DO Work Phone: Start: 84-87-8072Dqpb stain microscopyKenmore Hospital Powell DO Work Phone: Start: 33-58-6085Nflvwhbwl A virus antibody, IgM type [facility] Powell Bracketr Work Phone: Comment on above:A negative anti-HAV IgM result suggests no recent orcurrent HAV infection.Start: 84-33-2046Lfxhdibog B core antibody measurementScorewell health zeeland hospital Powell DO Work Phone: Comment on above:Performed at: [address] [id number] Director: Louis Hansen PhD, Phone: [phone]: 79-15-1920Fhtbjtsfx B core antibody measurement, IgM Chadhawn Andre DO Work Phone: Start: 27-77-9218Icetixrqwdenmdq of bilateral kidneys Harityra Powell DO Work Phone: Start: 81-50-1170Xohdo cultureShawn Powell DO Work Phone: Start: 76-93-4782TsmsicffselAwprod Berry MD Work Phone: Start: 03-05-2023H/O: hysterectomyHistory of hysterectomyAyaan Deras MD Work Phone: Start: 93-18-5595Zyygafxqqer of Nonautologous Red Blood Cells into Peripheral Vein, Percutaneous ApproachTODD TAMLYN .Start: 59-41-1885Cnriwves of Chest Subcutaneous Tissue and Fascia, Open ApproachTODD TAMLYN .Start: 31-00-8672Hmkgkljgn of Infusion Device into Superior Vena Cava, Percutaneous ApproachTODD TAMLYN .Start: 52-01-4985Spyygxqa of Right Pleural Cavity, Percutaneous ApproachTODD TAMLYN .Start: 40-40-7143LhwkqhqvuxeVylbwq Berry MD Work Phone: Plan of Treatment DateCare ActivityDetailAuthorStart: 81-40-4516Twjiaawzl for malignant neoplasm of colonNOMS HealthcareStart: 80-08-9032Qujuptzqe for malignant neoplasm of breastMammogramNOMS HealthcareComment on above:Postponed from 06/27/2022 (Patient Refused)Start: 10-12-2025 End: 81-53-1897Uwckkgw encounter /18/2025 11:30 AM EST Office Visit MIKHAIL Barraza [address] [place] [id number] Ayaan Deras MD [address] [place] [address] NOMNazario HannceStart: 08-15-2025 Ultrasonography of arteriovenous fistulaUS AV FistulaParma Community General Hospital CenterStart: 46-87-3194CI AV fistulaParma Community General Hospital CenterStart: 07-20-2025 End: 36-37-2982Ryaqude encounter procedureNOMS CI FMStart: 76-68-9275Zxgugfqti vaccinationNOKS HealthcareStart: 18-12-1839AuwpdjpbaMercy Health West Hospital Start: 31-06-6260Zixykdps to infectious diseases physicianParma Community General Hospital CenterStart: 32-69-5260Mzdvkwop admissionParma Community General Hospital CenterStart: 15-09-3782Bpkpfpze to clinical allergistParma Community General Hospital CenterStart: 50-21-0244Bytwjppm to nephrologistMercy Health West Hospital Start: 06-06-2025 End: 54-30-9789GzxrxlzqxParma Community General Hospital CenterStart: 14-19-6246XxmsqckaqParma Community General Hospital CenterStart: 05-17-2025 End: 17-94-4649VzcxgnciyParma Community General Hospital CenterStart: 06-67-6491YdzdqdaurParma Community General Hospital CenterStart: 82-64-1751AmicpgjxeParma Community General Hospital CenterStart: 46-86-5315CbwpwstuaParma Community General Hospital CenterStart: 76-23-2527Rfcebohjtszdx metabolic 1999 panel - Serum or PlasmaParma Community General Hospital CenterStart: 45-86-0414NqngebgkpParma Community General Hospital CenterStart: 20-74-4660Ticmxbmdjgqbt metabolic 1999 panel - Serum or PlasmaParma Community General Hospital CenterStart: 98-70-6447ToeoermnkParma Community General Hospital CenterStart: 14-07-1017Runoxeakbuzga metabolic 1999 panel - Serum or PlasmaParma Community General Hospital CenterStart: 23-36-2703FpaniueqgParma Community General Hospital CenterStart: 45-88-9273Cthhfesfwtxwk metabolic 1999 panel - Serum or [facility] CenterStart: 83-28-4395GioofzsktParma Community General Hospital CenterStart: 26-66-2968Zswqgmmj to general surgeonParma Community General Hospital CenterStart: 18-31-3062Jfvpxoobkbwdg metabolic 1999 panel - Serum or PlasmaParma Community General Hospital CenterStart: 05-09-2025 End: 14-89-6542UsgoqzbtuWayne Hospitaltart: 09-47-1972Rylyfegl to infectious diseases physicianWayne Hospitaltart: 05-08-2025 Bacteria identified in Unspecified specimen by Aerobe cultureWayne Hospitaltart: 47-69-0808Waocroiy admissionWayne Hospitaltart: 55-69-2968Xpmstjeq to nephrologistMercy Health West Hospital Start: 78-64-2110MyurpzmohWayne Hospitaltart: 64-98-3966BvtqglzsjWayne Hospitaltart: 73-04-6782Xhthugxf identified in Blood by Culture Blood CultureWayne Hospitaltart: 68-54-6210SyyckwvfzWayne Hospitaltart: 04-17-2025 End: 45-12-6327Cqhteqf encounter procedureNOMS CI FMComment on above:Arrived Start: 04-04-2025 End: 75-58-9557VstyftuwcWayne Hospitaltart: 03-76-5974HhobzbwqvWayne Hospitaltart: 61-19-6135Kbaeissdzuivrz of prophylactic treatment [facility]: 04-03-2234Txbulkms to infectious diseases physicianWayne Hospitaltart: 68-35-7094Uilqzjfm to gastroenterologistWayne Hospitaltart: 73-37-8697Nghjurjbqvxc gastric emptying studyWayne Hospitaltart: 02-28-2025 [facility]: 87-05-6834Dhtsmcky to psychiatrist [facility]: 13-26-9506Ghfxammn of Abdomen Subcutaneous Tissue and Fascia, Open ApproachExcision of Abdomen Subcutaneous Tissue and Fascia, Open ApproachWayne Hospitaltart: 79-20-3712Aqobyizx of Duodenum, Via Natural or Artificial Opening Endoscopic, DiagnosticExcision of Duodenum, Via Natural or Artificial Opening Endoscopic, DiagnosticWayne Hospitaltart: 61-11-6396Kamjlzug of Stomach, Via Natural or Artificial Opening Endoscopic, DiagnosticExcision of Stomach, Via Natural or Artificial Opening Endoscopic, DiagnosticWayne Hospitaltart: 57-62-9283Rwaomwgjgw of Abdomen Skin, External Approach Extraction of Abdomen Skin, External ApproachFirelands Regional Medical Center Start: 50-81-9757Xgnywswsf of Infusion Device into Superior Vena Cava, Percutaneous ApproachInsertion of Infusion Device into Superior Vena Cava, Percutaneous ApproachWayne Hospitaltart: 20-68-0108Xweetbdel of Tunneled Vascular Access Device into Chest Subcutaneous Tissue and Fascia, Percutaneous ApproachInsertion of Tunneled Vascular Access Device into Chest Subcutaneous Tissue and Fascia, Percutaneous ApproachWayne Hospitaltart: 82-08-8891Ezcayoefcrz of Urinary Filtration, Intermittent, Less than 6 Hours Per DayPerformance of Urinary Filtration, Intermittent, Less than 6 Hours Per DayWayne Hospitaltart: 63-25-0594Ikbfgylc to vascular surgeonWayne Hospitaltart: 13-77-6501Wzazajfg to general surgeonWayne Hospitaltart: 43-02-0889Posmocit to infectious diseases physicianWayne Hospitaltart: 02-23-2025 Hospital admissionWayne Hospitaltart: 61-37-3996Hnfhrxmf to nephrologistWayne Hospitaltart: 12-93-4080RzzgzoykiWayne Hospitaltart: 22-50-6901Kruyd screening for proteinDiabetes: Urine Protein ScreeningBLUE MOUNTAIN HOSPITAL, INC. HealthcareStart: 41-47-6284Pybnttjbr vaccinationInfluenza Vaccine (#1)[facility] HealthcareStart: 34-14-6223Dxxvoewamm A1c measurementDiabetes: Hemoglobin V9WMGRB HealthcareStart: 58-75-2725Vwhalczp screeningDiabetes: Retinopathy ScreeningBLUE MOUNTAIN HOSPITAL, INC. HealthcareStart: 33-39-0258Kgwajdzrj for malignant neoplasm of breastMammogramBLUE MOUNTAIN HOSPITAL, INC. HealthcareStart: 44-08-4393Wqcjrhhjj for malignant neoplasm of cervixNOMS HealthcareStart: 09-14-6000Ldmdswhxm for malignant neoplasm of cervixPap SmearBLUE MOUNTAIN HOSPITAL, INC. HealthcareStart: 72-94-1525Mwhqpedrb for malignant neoplasm of colonNOMS HealthcareAEROBIC CULTUREAEROBIC CULTURE Lab Routine 02/24/2025 2:51 PM [facility] Work Phone: AEROBIC CULTUREAEROBIC CULTURE Lab Routine 05/10/2025 3:43 PM [facility] Work Phone: Albumin/Globulin ratioMercy Health West HospitalANAEROBIC CULTUREANAEROBIC CULTURE Lab Routine 02/24/2025 2:51 PM EDTNOMS HealthcareANAEROBIC CULTUREANAEROBIC CULTURE Lab Routine 05/10/2025 3:43 PM EDT NOMS HealthcareAnion gap measurementMercy Health West HospitalBasophils [#/volume] in Blood by [facility] Basophils/100 leukocytes in Blood by Automated [facility] HospitalEosinophils/100 leukocytes in Blood by Automated [facility] HospitalErythrocyte distribution width [Ratio] by Automated [facility] HospitalErythrocytes [#/volume] in [facility] HospitalGlobulin [Mass/volume] in SerumMercy Health West Hospital Hematocrit [Volume Fraction] of [facility] HospitalHemoglobin [Mass/volume] in [facility] HospitalLeukocytes [#/volume] corrected for nucleated erythrocytes in Blood by Automated counMercy Health West HospitalLeukocytes [#/volume] in [facility] HospitalLymphocytes [#/volume] in Blood by Automated [facility] HospitalLymphocytes/100 leukocytes in Blood by Automated [facility] HospitalMCH [Entitic mass] by Automated [facility] HospitalMCHC [Mass/volume] by Automated [facility] HospitalMCV [Entitic volume] by [facility] Monocytes [#/volume] in Blood by Automated [facility] HospitalMonocytes/100 leukocytes in Blood by Automated [facility] HospitalNeutrophils [#/volume] in Blood by Automated [facility] HospitalNeutrophils/100 leukocytes in Blood by Automated count [facility] HospitalNucleated erythrocytes [Presence] in Blood by Automated [facility] HospitalPatient EducationParma Community General Hospital Ctr Work Phone: Patient referralParma Community General Hospital [facility]tr Work Phone: Platelet mean volume [Entitic volume] in Blood by Automated [facility] HospitalPlatelets [#/volume] in Blood [facility] HospitalUS AV [facility] Immunizations Immunization DateImmunizationNotesCare MuwfdpamJzmbdpvg07-76-5055kcdqbugjua skin test; purified protein derivative solution, intradermalAyaan Deras MD Work Phone: [facility] HospitalHgpurympvv19-09-7889wbdophwau, injectable, quadrivalent, preservative Kelly Deras MD Work Phone: [facility] HospitalPyystqysiv42-45-9979ydkcnfsuz virus vaccine, unspecified formulationAyaan Deras MD Work Phone: [facility] HospitalStysysvptp95-52-7805jqvhgvmfj, injectable, quadrivalent, contains preservativeAyaan Deras MD Work Phone: [phone] [place], [place] [address]Xfeercpjra76-44-2081zabruwojzg, tetanus toxoids and pertussis vaccineAyaan Deras MD Work Phone: [phone] [place], [place] [address]Mokewsnbvf51-25-7216HPIQU-59 mRNA, Comirnaty ([employer])Hari Powell DO Work Phone: [facility]06-08-2021COVID-19 mRNA, Comirnaty ([employer])Hari Powell DO Work Phone: [facility]11-03-2020influenza, injectable, quadrivalent, preservative Kelly Deras MD Work Phone: [facility] HospitalHjykqrvppq50-32-2741Fazwozafw, injectable, Madin Decker Canine Kidney, quadrivalent with preservativeAyaan Deras MD Work Phone: [phone] [place], [place] [address]Nxdjbblmpz91-36-3446jfxdqfdhp, injectable, quadrivalent, preservative Kelly Deras MD Work Phone: [facility] Payers DatePayer CategoryPayerPolicy [id number] Member Subscriber Plan / Payer (Effective 2025-Present) Name: Sourav Roque MemberID: [id number] Relation to Subscriber: Self Name: Sourav Roque Subscriber ID: [id number] PayerID: STATE Group ID: Not on file Type: Medicare Address: [place] [id number] [id number] 2025Private Health Insurance [id number]-vjp76-14-1990 MedicaidMEDICAID [place] Member Subscriber Plan / Payer (Effective 2024- Present) Name: Sourav Roqeu Relation to Subscriber: Self Name: Sourav Roque Payer ID: Not on file Group ID: Not on file Type: Medicaid Address: [address] [place] [id number] Cross Blue ShieldBCBS Member Subscriber Plan / Payer (Effective 2020-Present) Name: Sourav Roque Relation to Subscriber: Spouse Name: Dirk Roque Date of : 1965 (Home) Address: [address] [place] [id number] P kaitlynn ID: Not on file Type: Not on file Address: [address] [place] [address] [id number] 2.0.1.010918.3.57[id number] 2.0.1.975727.3.57[id number] 2.0.1.867195.3.579.[id number] 2.0.1.750580.3.57[id number] 2.0.1.465818.3.57[id number] 2..1.435144.3.57[id number] 2..1.918119.3.57[id number] 2.0.1.201946.3.57[id number] 2..1.317276.3.579.2.64252-16-6495Hffrxyh0265414 2..1.759223.3.57[id number] 2..1.535469.3.579.[id number] 2.0.1.238549.3.579.[id number] 2.0.1.438270.3.57[id number] 2.840.1.328724.3.579.[id number] 2.0.1.901258.3.579.[id number] 2.16.840.1.998715.3.579.2.273975-69-3656Jszqcnr1655002 2.16.840.1.179083.3.579.2.9[id number] 2.16.840.1.042[id number] 2.16.840.1.256775.3.579.2.531 [id number] 2.16.840.1.4[id number] 2.16.840.1.9[id number] 2.16.840.1.787329.3.579.2.531 [id number] 2.16.840.1.424[id number] 2.16.840.1.41896[id number] 2.16.840.1.360034.3.579.2.531 Social History DateTypeDetailFacilityStart: 01-06-2024 End: 53-21-1385Mpo Assigned At [facility] Work Phone: Start: 02-27-2023 End: 16-81-2022Ryzxjtl smoking status NHISSmokes tobacco dailyNOMS Healthcare History of tobacco useCigarette SmokerNOMS HealthcareStart: 02-27-2023 End: 92-96-9884Selpvns use and exposureUser of smokeless tobaccoNOMS Healthcare Start: 01-06-2024 End: 91-69-8727Zcpnsrdcb beverage intakeCurrent drinker of alcohol (finding)NOMS HealthcareStart: 01-06-2024 End: 26-65-5877Cgmahfx of Social functionNOMS Healthcare Work Phone: Start: 21-89-1745Myi assigned at birthNot on fileNOMS HealthcareStart: 02-25-2025 End: 58-72-7272Itvtxou smoking status NHISSmoker (finding)[facility]: 02-28-2025 End: 54-18-3410GgvGdbcml (finding)[facility]: 08-14-8701Nmt Assigned At BirthFemaleFMartin Memorial Hospitaltart: 79-98-1109Sowktqg smoking status NHISEx-smokerNOKS HealthcareStart: 03-09-2025 End: 01-99-5137UGUF Follow upSDOH Follow upBarberton Citizens Hospital Work Phone: Medical Equipment Procedure CodeEquipment CodeEquipment Original TextEquipment IdentifierDates Wound debridementDouble-lumen haemodialysis catheter, implantable +[id number] FDAStart: 02-24-2025 Goals DatePatient GoalDesired Activity/State Functional Status RxbrLtgscscovzDloskoFjyxfner95-04-6899Wxckkyv Health Questionnaire 2 item (PHQ- 2) [Reported][facility] HospitalEldurhtvvn30-76-4320Iaddeolmuw statusPatient is Progressing Toward BaselineF[facility] Work Phone: [phone]hazki statusPatient Not at Baseline [facility] Work Phone: 1([phone]) [phone]huz Health Questionnaire 2 item (PHQ-2) [Reported][facility] HospitalOpaabhcccm28-80-9112KUR-4 quick depression assessment panel [Reported.PHQ][facility] HospitalTdyaykbxab17-49-6025Uydtlmy Health Questionnaire 2 item (PHQ- 2) [Reported][facility] HospitalWffxtufihh86-41-4997Tfxvhvthdi statusPatient at Baseline [facility] Work Phone: 1([phone]pmisncu statusPatient Not at Baseline [facility] Work Phone: [facility] Mental Status JkwaAugvyfhobzPoulgfIqcgridp51-11-3493Nfdjidgbb functionCognitive Status Patient at BaselineF[facility] Work Phone: [phone]) [phone]jcoffuw functionCognitive Status [facility] Work Phone: [phone]) [phone]krbgop functionCognitive Status Patient at [facility] Work Phone: [phone]p functionCognitive Status Patient at [facility] Work Phone: Clinical Notes 11-25-2023 to 08-15-2025 Note Date & FomdBdkbOzuuxejm56-09-6632 Radiology Diagnostic study [facility] [address] [place] [address] Ultrasound Report Signed Patient: Sourav Roque MR#: [id number] : 1970 Acct:[id number] Age/Sex: 55 / F ADM Date: 5 Loc: [facility] Room: Type: [facility] Attending Dr: Nestor Wright MD Ordering Provider: Nestor Wright MD Date of Service: 08/15/25 US/US AV Fistula: N18.6 - End stage renal disease Copies to: Nestor Wright MD~ Looks examination Indication for study: Need for fistula transposition PROCEDURE: B-mode imaging color-flow duplex scanning is used to interrogate the patient's left arm ulnar artery to basilic vein fistula. Overall flows in the fistula are adequate at between 601,000 cc/m. The size is somewhat suboptimal and in the mid segment is just over 4 mm. No evident areas of significant stenosis are noted. US/US AV Fistula IMPRESSION: This fistula somewhat small still but does have overall adequate flow. It could likely be successfully transposed. Impression dictated by: Nestor Wright M.D. 08/15/2025 1:13 PM Dictation Location: [place] [address] Tech: Jaelyn Shaw Transcribed By: LIZBETH 08/15/251312 Dictated By: Nestor Wright MD 08/15/25 1312 Signed By: 08/15/25 131 [facility] Work Phone: 1([phone]) 284-767209-18-2025 History of Present illness Narrative* Ayaan Deras MD - 07/13/2025 11:30 AM EDT Images from the original note [...] day 5 each 5 Blood Pressure Monitoring ([place] Choice BP Monitor Cuff) misc 1 Device Daily 1 each 0 Continuous Glucose Sensor (FreeStyle Maria Esther 3 Plus Sensor) misc 1 each Every 15 Days 2 each 11 metoclopramide (Reglan) 5 MG tablet Take 0.5 tablets by mouth in the morning and 0.5 tablets in theevening and 0.5 tablets before bedtime. oxyCODONE-acetaminophen (Percocet) [...] pen Inject 10 Units under the skin atbedtime 9 mL 3 [DISCONTINUED] losartan (Cozaar) 100 [...] neuropathy, with long-term current use of insulin ([facility]) - POCT Glycated hemoglobin, total - Patient is seen for zzfl-vv-wzom encounter today and has a current diagnosis of Diabetes. It is medically necessary for patient to have a continuous glucose monitor (CGM) due to current medicationsand required frequency of testing. It is medically [...] Handicap Placard Lifetime Chronic diastolic heart failure ([facility]) - amLODIPine (Norvasc) 10 MG tablet; Take 1 tablet (10 mg) by mouth Daily - furosemide (Lasix) 40 MG tablet; Take 1 tablet (40 mg) by mouth Daily - losartan (Cozaar) 100 MG tablet; Take 1 tablet (100 mg) by mouth Daily Type 2 diabetes 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, with long-term current use of insulin ([facility]) - insulin glargine (Lantus SoloStar) 100 UNIT/ML pen; Inject 10 Units under the skin at bedtime GERD without esophagitis - pantoprazole (ProtoNix) 40 MG EC tablet; Take 1 tablet (40 mg) by mouth Daily ESRD (end stage renal disease) ([facility]) Open wound of abdominal wall, subsequent encounter - Improving, still on wound vac Follow up in about 3 months (around 10/12/2025) for Routine F/U. documented in this encounterHermann Area District HospitalXfdiujffcg54-22-4917 Evaluation note* Diagnosis Onset Date Resolution Status Admit Date Anemia of renal disease acuteAugust 2024 1:04pmBenign hypertension with end-stage renal disease acuteAugust 2024 1:04pmCellulitis of abdominal wallacuteAugust 2024 1:04pmESRD (end stage renal disease)acuteAugust 2024 1:04pmHyperkalemia acuteAugust 2024 1:04pmHypertensionacuteAugust 2024 1:04pmNecrosis of surgical woundacuteAugust 2024 1:04pmOpen abdominal wall woundacute June 15, 2025 1:04pmSecondary hyperparathyroidismacuteAugust 2024 1:04pmType 2 diabetes mellitus with diabetic chronic kidney diseaseacuteAugust 2024 1:04pmAV fistulaacuteSeptember 2024 12:52pmEnd stage renal disease on dialysisacuteSeptember 2024 12:52pmESRD (end stage renal disease)acuteSeptember 2024 12:52pmCalciphylaxisacuteOctober 2024 11:15amDiabetesacuteOctober 2024 11:15amEnd stage renal disease on dialysis acuteOctober 2024 11:15amGastroparesisacuteOctober 2024 11:15am Necrosis of surgical woundacuteOctober 2024 11:15amOpen abdominal wall woundacuteOctober 2024 11:15amESRD (end stage renal disease)deletedOctober 2024 11:15amESRD (end stage renal disease)acuteOctober 2024 11:59am [facility] Work Phone: 1([phone] 160-742607-14-2025 Evaluation note* Diagnosis Onset Date Resolution Status Admit Date Anemia of renal disease acuteJuly 2024 6:02pmBenign hypertension with end-stage renal diseaseacute Emily 2024 6:02pmCellulitis of abdominal wallacuteJuly 2024 6:02pm DiabetesacuteJuly 2024 6:02pmEnd stage renal disease on dialysisacuteJuly 2024 6:02pmGastritisacuteJuly 2024 6:02pmGastroparesisacuteJuly 2024 6:02pmHypertensionacuteJuly 2024 6:02pmNecrosis of surgical woundacuteJuly 2024 6:02pmOpen abdominal wall woundacuteJuly 2024 6:02pmOSA (obstructive sleep apnea)acuteJuly 2024 6:02pmSecondary hyperparathyroidismacuteJuly 2024 6:02pmType 2 diabetes mellitus with diabetic chronic kidney diseaseacuteJuly 2024 6:02pmMissed dialysis resolvedJuly 2024 6:02pmESRD (end stage renal disease)deletedJuly 2024 6:02pmAnemia of renal diseaseacuteAugust 2024 1:04pmBenign hypertension with end-stage renal diseaseacuteAugust 2024 1:04pmCellulitis of abdominal wallacuteAugust 2024 1:04pmESRD (end stage renal disease) acuteAugust 2024 1:04pmHyperkalemiaacuteAugust 2024 1:04pm HypertensionacuteAugust 2024 1:04pmNecrosis of surgical woundacuteAugust 2024 1:04pmOpen abdominal wall woundacuteAugust 2024 1:04pmSecondary hyperparathyroidismacuteAugust 2024 1:04pmType 2 diabetes mellitus with diabetic chronic kidney diseaseacuteAugust 2024 1:04pmAV fistulaacute July 11, 2025 12:52pmEnd stage renal disease on dialysisacuteSeptember 2024 12:52pmESRD (end stage renal disease)acuteSeptember 2024 12:52pmCalciphylaxisacuteOctober 2024 11:15amDiabetesacuteOctober 2024 11:15amEnd stage renal disease on dialysisacuteOct2024 11:15am GastroparesisacuteOct2024 11:15amNecrosis of surgical woundacute August 01, 2025 11:15amOpen abdominal wall woundacuteOct2024 11:15am ESRD (end stage renal disease)deletedOct2024 11:15am [facility] Work Phone: 1([phone]) 639-450207-14-2025 [place] [address] Hospitalist H&P Signed Patient: Sourav Roque MR#: [id number] : 1970 Acct:[id number] Age/Sex: 55 / F Adm Date: 5 Loc: ER Room: Type: [facility] ER Attending Dr: Copies to: MD [...] and potassium of 3.4 lactic acid 0.7, liverenzymes within normal limit, BNP 643, Chest x-ray-small left-sided pleural effusion as before. CT of the abdomen pelvis- soft tissue defect is noted in a bandlike configuration along the abdominal pannus with subcutaneous emphysema. This is new when compared to the prior exam. There is accompanying skin thickening atthe margins of the areas of ulceration suggesting cellulitis. There is a small left-sided pleural effusion. There is perinephric fat stranding bilaterally similar to the prior exam. No bowel obstruction or obstructive uropathy. Patient got Teflaro and 1 L IV fluid in the ED. Review of Systems Review of Systems All other systems reviewed & are negative unless noted below or in HPI [facility] Medical History Dialysis patient Mon-Thu-Thu Gastroparesis ESRD [...] pen (Lantus Solostar U-100 Insulin) 10 unit subcutHS PRN hyperglycemia 03/30/25 [History Confirmed 05/08/25] metoclopramide [...] bowel sounds with no organomegaly, abdominal wound withdressing Extremity: moves all extremities, no restrictions of [...] 05/08/25 14:24 MPV 7.5 fl (6.3-10.7) 05/08/25 14:24 Neut % (Auto) 81.7 % (.) 05/08/25 14:24 Lymph % (Auto) 10.6 % (.) 05/08/25 14:24 Mckenzie % (Auto) 6.1 % (.) 05/08/25 14:24 Eos % (Auto) 0.6 % (.) 05/08/25 14:24 Baso % (Auto) 1.0 % (.) 05/08/25 14:24 Nucleat RBC Rel Count 0.1 /100 WBC (0-0.5) 05/08/25 14:24 Neut # (Auto) 15.1 x10E3/uL (1.8-7.7) H 05/08/25 14:24 Lymph # (Auto) 1.9 x10E3/uL (1.00-4.8) 05/08/25 14:24 Mckenzie # (Auto) 1.1 x10E3/uL (0.0-0.8) H 05/08/25 14:24 Eos # (Auto) 0.1 x10E3/uL (0.0-0.45) 05/08/25 14:24 Baso # (Auto) 0.2 x10E3/uL (0.0-0.2) 05/08/25 14:24 Monocyte Dist Width 23.71 % (0.00-20.00) H 05/08/25 14:24 PT 15.2 Seconds (9.0-12.9) H 05/08/25 14:24 INR 1.3 05/08/25 14:24 APTT 36.6 Seconds [...] and potassium of 3.4 lactic acid 0.7, liverenzymes within normal limit, BNP 643, Chest x-ray-small left-sided pleural effusion as before. CT of the abdomen pelvis- soft tissue defect is noted in a bandlike configuration along the abdominal pannus with subcutaneous emphysema. This is new when compared to the prior exam. There is accompanying skin thickening atthe margins of the areas of ulceration suggesting [...] setting as: INPATIENT because of an expectation ofan over 2 midnight stay. Estimated length of stay (# of days): 3 Documented By: Xavier Mello MD 05/08/251906 Signed By: 05/08/251911 [facility]07-14-2025 Radiology Diagnostic study note [facility] [place] [address] [place], [place] [id number] CT Scan Report Signed Patient: Sourav Roque MR#: [id number] : 1970 Acct:[id number] Age/Sex: 55 / F ADM Date: 5 Loc: ER Room: Type: [facility] ER Attending Dr: Copies to: Oh [...] to the prior exam. There is accompanying skinthickening at the margins of the areas of [...] Lilly M.D. 05/08/2025 5:45 PM Dictation Location: [place] [address] Transcribed By: LIZBETH 05/08/251744 Dictated By: Pancho Lilly II, MD 05/08/251737 Signed By: 05/08/251744 [facility] Work Phone: 1(577) 103-974907-01-2025 Evaluation note* Diagnosis Onset Date Resolution Status Admit Date End stage renal disease on dialysis acuteJuly 2024 12:04pmAnemia of renal diseaseacuteJuly 2024 6:02pm Benign hypertension with end-stage renal diseaseacuteJuly 2024 6:02pm Cellulitis of abdominal wallacuteJuly 2024 6:02pmDiabetesacuteJuly 2024 6:02pmEnd stage renal disease on dialysisacuteJuly 2024 6:02pm GastritisacuteJuly 2024 6:02pmGastroparesisacuteJuly 2024 6:02pm HypertensionacuteJuly 2024 6:02pmNecrosis of surgical woundacuteJuly 2024 6:02pmOpen abdominal wall woundacuteJuly 2024 6:02pmOSA (obstructive sleep apnea)acuteJuly 2024 6:02pmSecondary hyperparathyroidismacuteJuly 2024 6:02pmType 2 diabetes mellitus with diabetic chronic kidney disease acuteJuly 2024 6:02pmMissed dialysisresolvedJuly 2024 6:02pmESRD (end stage renal disease)deletedJuly 2024 6:02pmCalciphylaxisacuteAugust 2024 9:17amDiabetesacuteAugust 2024 9:17amEnd stage renal disease on dialysisacuteAugust 2024 9:17amGastroparesisacuteAugust 2024 9:17am Necrosis of surgical woundacuteAugust 2024 9:17amOpen abdominal wall wound acuteAugust 2024 9:17amESRD (end stage renal disease)deletedAugust 2024 9:17amAnemia of renal diseaseacuteAugust 2024 1:04pmBenign hypertension with end-stage renal diseaseacuteAugust 2024 1:04pmCellulitis of abdominal wallacuteAugust 2024 1:04pmESRD (end stage renal disease) acuteAugust 2024 1:04pmHyperkalemiaacuteAugust 2024 1:04pm HypertensionacuteAugust 2024 1:04pmNecrosis of surgical woundacuteAugust 2024 1:04pmOpen abdominal wall woundacuteAugust 2024 1:04pmSecondary hyperparathyroidismacuteAugust 2024 1:04pmType 2 diabetes mellitus with diabetic chronic kidney diseaseacuteAugust 2024 1:04pm [facility] Work Phone: 1([phone]) 298-704307-01-2025 Evaluation note* Diagnosis Onset Date Resolution Status Admit Date End stage renal disease on dialysis acuteJuly 2024 12:04pmAnemia of renal diseaseacuteJuly 2024 6:02pm Benign hypertension with end-stage renal diseaseacuteJuly 2024 6:02pm Cellulitis of abdominal wallacuteJuly 2024 6:02pmDiabetesacuteJuly 2024 6:02pmEnd stage renal disease on dialysisacuteJuly 2024 6:02pm GastritisacuteJuly 2024 6:02pmGastroparesisacuteJuly 2024 6:02pm HypertensionacuteJuly 2024 6:02pmNecrosis of surgical woundacuteJuly 2024 6:02pmOpen abdominal wall woundacuteJuly 2024 6:02pmOSA (obstructive sleep apnea)acuteJuly 2024 6:02pmSecondary hyperparathyroidismacuteJuly 2024 6:02pmType 2 diabetes mellitus with diabetic chronic kidney disease acuteJuly 2024 6:02pmMissed dialysisresolvedJuly 2024 6:02pmESRD (end stage renal disease)deletedJuly 2024 6:02pmAnemia of renal disease acuteAugust 2024 1:04pmBenign hypertension with end-stage renal disease acuteAugust 2024 1:04pmCellulitis of abdominal wallacuteAugust 2024 1:04pmESRD (end stage renal disease)acuteAugust 2024 1:04pmHyperkalemia acuteAugust 2024 1:04pmHypertensionacuteAugust 2024 1:04pmNecrosis of surgical woundacuteAugust 2024 1:04pmOpen abdominal wall woundacute June 15, 2025 1:04pmSecondary hyperparathyroidismacuteAugust 2024 1:04pmType 2 diabetes mellitus with diabetic chronic kidney diseaseacuteAut 2024 1:04pmCalciphylaxisacuteSeptember 2024 9:54amDiabetesacute June 27, 2025 9:54amEnd stage renal disease on dialysisacuteSept2024 9:54amGastroparesisacuteSept2024 9:54amNecrosis of surgical woundacuteSept2024 9:54amOpen abdominal wall woundacuteSeptember 2024 9:54amESRD (end stage renal disease)deletedSept2024 9:54am [facility] Work Phone: 1([phone]) 976-868906-23-2025 History of Present illness Narrative* Ayaan Deras [...] Daily 100 tablet 3 Blood Pressure Monitoring ([place] Choice BP Monitor Cuff) misc 1 Device Daily 1 each 0 Continuous Glucose Blower Blast Furnace (Dexcom G7 Blower Blast Furnace) device 1 Device Daily 1 each 0 [...] - The patient is seeing a medical customer service representative for this condition, treatment is deferred to that specialist. Correspondence from that specialist and any available testing were reviewed during today's visit. C. difficile diarrhea - Finished treatment, bowel movements are now normal Morbid (severe) obesity due to excess calories ([facility]) Body mass index (BMI) 40.0-44.9, adult ([facility]) ESRD (end stage renal disease) ([facility]) Hemodialysis status 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 2 diabetes mellitus ([facility]) - Diabetes well controlled at present. Follow up in about 3 months (around 07/18/2025) for Routine F/U. documented in this encounterHermann Area District HospitalLtfqnvlsqr39-55-8291 History of Present illness Narrative* DONAVAN Bradshaw - 03/14/2025 2:00 PM EDT Images from the original note were not included. HPI Med Refill Additional comments: Oxycodone Last edited by Nubia Lee LPN on 03/14/2025 2:00 PM. Subjective Patient ID: Sourav Roque is a 55 y.o. female who presents for [facility] [place]. Sourav is present today for [facility] [place] follow [place]. Admitted from 02/23/25 - 03/10/25 Dx. Renal failure, ESRD, Calciphylaxis, Metabolic acidosis, skin necrosis, C-diff. Prescribed Vancomycin, Amlodipine, Furosemide, Losartan, Pantoprazole, Percocet, Renvela. She has started dialysis and is doing that M //. She does have necrosis on her abdomen and has been seeing wound care at [facility]. She is wanting someone to look at [...] Reported on 03/14/2025) [DISCONTINUED] Continuous Blood Gluc Blower Blast Furnace (Dexcom G4 pilot station education faculty member) device Inject 1 Device under the skin. [DISCONTINUED] Continuous Blood Gluc Sensor (Dexcom G4 Sensor) misc Place 1 application on the skinevery 14 (fourteen) days 6 each 11 [DISCONTINUED] Continuous Blood Gluc Transmit (Dexcom G4 pilot station transmitter) misc Inject 1 each under the [...] hyperglycemia, with long-term current use of insulin ([facility]) - insulin glargine (Lantus SoloStar) 100 UNIT/ML pen; Inject 10 Units under the skin at bedtime - Continuous Glucose Blower Blast Furnace (Dexcom G7 Blower Blast Furnace) device; 1 Device Daily - Continuous Glucose Sensor (Dexcom G7 Sensor) misc; 1 Device Every 10 (ten) days Sent in order for Dexcom sensor and education faculty member for patient to monitor her glucose routinely. Providedher with Lantus rx to use if her glucose readings increase. Per hospital documentation her HgbA1c was 6.0 while in patient. C. difficile diarrhea Continue Vancomycin as prescribed. Symptoms are slowly improving. Stay hydrated. ESRD (end stage renal disease) ([facility]) - Ambulatory referral to Home Health; Future She is to contact Nephrology, Dr. Hopkins, to schedule a follow up appointment. Currently getting dialysis Thursday, Thursday, and Thursday. Skin necrosis ([facility]) - oxyCODONE-acetaminophen (Percocet) 5-325 MG tablet; Take 0.5-1 tablets by mouth every 6 (six) hours if needed for severe pain for up to 7 days Every 4-6 hours prn severe pain - Adhesive Tape (Elastic Foam Tape 1 x5yd) tape; 1 Application every other day snf is coming to the house for dressing [...] dialysis due to type 2 diabetes mellitus ([facility]) She is to contact Nephrology, Dr. Hopkins, to schedule a follow up appointment. Currently getting dialysis Thursday, Thursday, and Thursday. Calciphylaxis Saw Dr. Chavez today for follow up appointment. Has Home Health set up. Hypertension secondary to other renal disorders - Blood Pressure Monitoring ([place] Choice BP Monitor Cuff) misc; 1 Device [...] Anemia of chronic renal failure, stage 5 (CMS/HCC) Follow up with Nephrology as per their [...] see Maximiliano Goodwin PT, his phone number [phone]. The patient was seen today in follow up of recent hospital stay. All available hospital records were reviewed and discussed with the patient. Hospital discharge meds were reviewed. Any changes are asnoted. Follow up in about 4 weeks (around 04/11/2025) for Follow up with Dr. Deras.. documented in this encounterHermann Area District HospitalTtbbivxxvw03-31-4655 Evaluation note* Author Carolyn [facility] HospitalAuthoredNovember 2024 1:[id number] female referred to the GI clinic for evaluation of diarrhea. EGD on 03/01/2025 showed gastritis, duodenitis, gastric biopsies were negative for H. pylori, duodenal biopsies were negative for celiac. Chronic diarrhea X1.5 years - Will get Labs including CBC with diff, TSH, ESR, CRP, fecal calprotectin HIV ab, Celiac panel, fecal elastase and stool infectious workup - Will arrange for colonoscopy with biopsies [facility] Work Phone: 1(557) 365-234905-01-2025 Evaluation note* Diagnosis Onset Date Resolution Status Admit Date Anemia of renal disease acuteMay 2024 12:32amCalciphylaxisacuteMay 2024 12:32amDiabetesacute February 23, 2025 12:32amElevated serum creatinineacuteMay 2024 12:32am Encounter for assessment of decision-making capacityacuteFebruary 23, 2025 12:32am ESRD (end stage renal disease)acuteMay 2024 12:32amHyperphosphatemiaacute February 23, 2025 12:32amHypertensionacuteMay 2024 12:32amIntertriginous candidiasisacuteMay 2024 12:32amMetabolic acidosisacuteMay 2024 12:32amNausea and vomitingacuteMay 2024 12:32amRenal failure, acuteacuteMay 2024 12:32amSkin necrosisacuteMa2024 12:32am [facility] Work Phone: 1(693) 347-137605-01-2025 Evaluation note* Diagnosis Onset Date Resolution Status Admit Date Anemia of renal disease acuteMay 2024 12:32amCalciphylaxisacuteMay 2024 12:32amClostridioides difficile diarrheaacuteMay 2024 12:32amDiabetesacuteMay 2024 12:32am ESRD (end stage renal disease)acuteMay 2024 12:32amGastroparesisacuteMay 2024 12:32amHyperphosphatemiaacuteMay 2024 12:32amHypertensionacuteMay 2024 12:32amChronic constipationinactiveMay 2024 12:32amMetabolic acidosisinactiveMay 2024 12:32amElevated serum creatininedeletedMay 2024 12:32amEncounter for assessment of decision-making capacitydel2024 12:32amIntertriginous candidiasisdeletedMay 2024 12:32amLeukocytosis deletedMay 2024 12:32amNausea and vomitingdeletedMay 2024 12:32amRenal failure, acutedeletedMay 2024 12:32amSkin necrosisdeletedMay 2024 12:32amCalciphylaxisacuteJune 2024 10:07amEnd stage renal disease on dialysisacuteJune 2024 10:07amGastroparesisacuteJune 2024 10:07amOpen abdominal wall woundacuteJune 2024 10:07am [facility] Work Phone: 1(329) 534-739705-01-2025 Evaluation note* Diagnosis Onset Date Resolution Status Admit Date Anemia of renal disease acuteMay 2024 12:32amCalciphylaxisacuteMay 2024 12:32amClostridioides difficile diarrheaacuteMay 2024 12:32amDiabetesacuteMay 2024 12:32am ESRD (end stage renal disease)acuteMay 2024 12:32amGastroparesisacuteMay 2024 12:32amHyperphosphatemiaacuteMay 2024 12:32amHypertensionacuteMay 2024 12:32amChronic constipationinactiveMay 2024 12:32amMetabolic acidosisinactiveMay 2024 12:32amElevated serum creatininedeletedMay 2024 12:32amEncounter for assessment of decision-making capacitydelMay 2024 12:32amIntertriginous candidiasisdeletedMay 2024 12:32amLeukocytosis deletedMay 2024 12:32amNausea and vomitingdeletedMay 2024 12:32amRenal failure, acutedeletedMay 2024 12:32amSkin necrosisdeletedMay 2024 12:32amCalciphylaxisacuteJuly 2024 10:27amDiabetesacuteJuly 2024 10:27amEnd stage renal disease on dialysisacuteJuly 2024 10:27amESRD (end stage renal disease)acuteJuly 2024 10:27amGastroparesisacuteJuly 2024 10:27amNecrosis of surgical woundacuteJuly 2024 10:27amOpen abdominal wall woundacuteJuly 2024 10:27am [facility] Work Phone: 1(880) 311-357605-01-2025 Evaluation note* Diagnosis Onset Date Resolution Status Admit Date Anemia of renal disease acuteMay 2024 12:32amCalciphylaxisacuteMay 2024 12:32amClostridioides difficile diarrheaacuteMay 2024 12:32amDiabetesacuteMay 2024 12:32am ESRD (end stage renal disease)acuteMay 2024 12:32amGastroparesisacuteMay 2024 12:32amHyperphosphatemiaacuteMay 2024 12:32amHypertensionacuteMay 2024 12:32amChronic constipationinactiveMay 2024 12:32amMetabolic acidosisinactiveMay 2024 12:32amElevated serum creatininedeletedMay 2024 12:32amEncounter for assessment of decision-making capacitydeletedMay 2024 12:32amIntertriginous candidiasisdeletedMay 2024 12:32amLeukocytosis deletedMay 2024 12:32amNausea and vomitingdeletedMay 2024 12:32amRenal failure, acutedeletedMay 2024 12:32amSkin necrosisdeletedMay 2024 12:32amCalciphylaxisacuteJuly 2024 10:27amDiabetesacuteJuly 2024 10:27amEnd stage renal disease on dialysisacuteJuly 2024 10:27amESRD (end stage renal disease)acuteJuly 2024 10:27amGastroparesisacuteJuly 2024 10:27amNecrosis of surgical woundacuteJuly 2024 10:27amOpen abdominal wall woundacuteJuly 2024 10:27amEnd stage renal disease on dialysisacuteJuly 2024 12:04pmAnemia of renal diseaseacuteJuly 2024 6:02pmCellulitis of abdominal wallacuteJuly 2024 6:02pmDiabetesacuteJuly 2024 6:02pmEnd stage renal disease on dialysisacuteJuly 2024 6:02pmESRD (end stage renal disease)acuteJuly 2024 6:02pmGastritisacuteJuly 2024 6:02pm GastroparesisacuteJuly 2024 6:02pmHypertensionacuteJuly 2024 6:02pm Missed dialysisacuteJuly 2024 6:02pmNecrosis of surgical woundacuteJuly 2024 6:02pmOpen abdominal wall woundacuteJuly 2024 6:02pmOSA (obstructive sleep apnea)acuteJuly 2024 6:02pm [facility] Work Phone: 1(514) 438-881505-01-2025 Evaluation note* Diagnosis Onset Date Resolution Status Admit Date Anemia of renal disease acuteMay 2024 12:32amCalciphylaxisacuteMay 2024 12:32amClostridioides difficile diarrheaacuteMay 2024 12:32amDiabetesacuteMay 2024 12:32am GastroparesisacuteMay 2024 12:32amHyperphosphatemiaacuteMay 2024 12:32amHypertensionacuteMay 2024 12:32amChronic constipationinactiveMay 2024 12:32amMetabolic acidosisinactiveMay 2024 12:32amElevated serum creatininedeletedMay 2024 12:32amEncounter for assessment of decision- making capacitydeletedMay 2024 12:32amESRD (end stage renal disease)deleted February 23, 2025 12:32amIntertriginous candidiasisdeletedMay 2024 12:32am LeukocytosisdeletedMay 2024 12:32amNausea and vomitingdeletedMay 2024 12:32amRenal failure, acutedeletedMay 2024 12:32amSkin necrosisdeletedMay 2024 12:32amCalciphylaxisacuteJuly 2024 10:27amDiabetesacuteJuly 2024 10:27amEnd stage renal disease on dialysisacuteJuly 2024 10:27am GastroparesisacuteJuly 2024 10:27amNecrosis of surgical woundacuteJuly 2024 10:27amOpen abdominal wall woundacuteJuly 2024 10:27amESRD (end stage renal disease)deletedJuly 2024 10:27amEnd stage renal disease on dialysis acuteJuly 2024 12:04pmAnemia of renal diseaseacuteJuly 2024 6:02pm Benign hypertension with end-stage renal diseaseacuteJuly 2024 6:02pm Cellulitis of abdominal wallacuteJuly 2024 6:02pmDiabetesacuteJuly 2024 6:02pmEnd stage renal disease on dialysisacuteJuly 2024 6:02pm GastritisacuteJuly 2024 6:02pmGastroparesisacuteJuly 2024 6:02pm HypertensionacuteJuly 2024 6:02pmMissed dialysisacuteJuly 2024 6:02pmNecrosis of surgical woundacuteJuly 2024 6:02pmOpen abdominal wall woundacuteJuly 2024 6:02pmOSA (obstructive sleep apnea)acuteJuly 2024 6:02pmSecondary hyperparathyroidismacuteJuly 2024 6:02pmType 2 diabetes mellitus with diabetic chronic kidney diseaseacuteJuly 2024 6:02pmESRD (end stage renal disease)deletedJuly 2024 6:02pm [facility] Work Phone: 1(875) 244-834805-01-2025 Evaluation note* Diagnosis Onset Date Resolution Status Admit Date Anemia of renal disease acuteMay 2024 12:32amCalciphylaxisacuteMay 2024 12:32amClostridioides difficile diarrheaacuteMay 2024 12:32amDiabetesacuteMay 2024 12:32am GastroparesisacuteMay 2024 12:32amHyperphosphatemiaacuteMay 2024 12:32amHypertensionacuteMay 2024 12:32amChronic constipationinactiveMay 2024 12:32amMetabolic acidosisinactiveMay 2024 12:32amElevated serum creatininedeletedMay 2024 12:32amEncounter for assessment of decision- making capacitydeletedMay 2024 12:32amESRD (end stage renal disease)deleted February 23, 2025 12:32amIntertriginous candidiasisdeletedMay 2024 12:32am LeukocytosisdeletedMay 2024 12:32amNausea and vomitingdeletedMay 2024 12:32amRenal failure, acutedeletedMay 2024 12:32amSkin necrosisdeletedMay 2024 12:32amEnd stage renal disease on dialysisacuteJuly 2024 12:04pm Anemia of renal diseaseacuteJuly 2024 6:02pmBenign hypertension with end- stage renal diseaseacuteJuly 2024 6:02pmCellulitis of abdominal wallacute Emily 2024 6:02pmDiabetesacuteJuly 2024 6:02pmEnd stage renal disease on dialysisacuteJuly 2024 6:02pmGastritisacuteJuly 2024 6:02pm GastroparesisacuteJuly 2024 6:02pmHypertensionacuteJuly 2024 6:02pm Necrosis of surgical woundacuteJuly 2024 6:02pmOpen abdominal wall wound acuteJuly 2024 6:02pmOSA (obstructive sleep apnea)acuteJuly 2024 6:02pmSecondary hyperparathyroidismacuteJuly 2024 6:02pmType 2 diabetes mellitus with diabetic chronic kidney diseaseacuteJuly 2024 6:02pmMissed dialysisresolvedJuly 2024 6:02pmESRD (end stage renal disease)deletedJuly 2024 6:02pmCalciphylaxisacuteAugust 2024 9:17amDiabetesacuteAugust 2024 9:17amEnd stage renal disease on dialysisacuteAugust 2024 9:17am GastroparesisacuteAugust 2024 9:17amNecrosis of surgical woundacuteAugust 2024 9:17amOpen abdominal wall woundacuteAugust 2024 9:17amESRD (end stage renal disease)deletedAugust 2024 9:17am [facility] Work Phone: 1(388) 246-825303-04-2025 Telephone encounter Note* Telephone Encounter - Suzy Florence - 12/27/2024 2:41 PM EST LVM and letter sent [facility] [id number] Miscellaneous Notes* Telephone Encounter - Suzy Florence - 12/27/2024 2:41 PM EST LVM and letter sent * Telephone Encounter - Suzy Flroence - 12/26/2024 11:31 AM EST LVM * Telephone Encounter - Suzy Florence - 12/22/2024 8:29 AM EST LVM * Telephone Encounter - Ayse Jon LPN - 12/21/2024 4:31 PM EST Pt has not been seen for her chronic conditions DM, etc-- she needs to be seen ELSA documented in this encounterNOSoutheast [facility] Treatment [id number] Telephone encounter Note* Telephone Encounter - Suzy Florence - 12/26/2024 11:31 AM EST LVM [facility] [id number] Telephone encounter Note* Telephone Encounter - Suzy Florence - 12/22/2024 8:29 AM EST [id number] Tele[facility] encounter Note* Telephone Encounter - Ayse Jon LPN - 12/21/2024 4:31 PM EST Pt has not been seen for her chronic conditions DM, etc-- she needs to be seen ELSA [id number] NotePatient here for follow up [facility] for CHF. She was seen as inpatient [...] weakness. All other systems reviewed and are negative.[facility] 11-25-2023 [facility]Card[facility] SUBJECTIVE No chief complaint on file. Sourav Roque is a 53 y.o. female here for follow-up. HPI PMHx: HFpEF, COPD, HTN, CKD stage 3B, DM type II, obesity Patient here for follow up [facility] for CHF. She was seen as inpatient [...] chest pain and palpitations. She works for [employer]. [employer]ports [employer] employees. 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 ([facility]) Other dysphagia Radiculopathy, lumbar region Tobacco dependence Type 2 diabetes 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 ([facility]) Past Medical History: Diagnosis Date CHF (congestive heart failure) ([facility]) Chronic kidney disease COPD (chronic obstructive pulmonary disease) ([facility]) Diabetes mellitus ([facility]) Hypertension Hypokalemia Hyponatremia Family History Problem Relation [...] m??? Medications: Current Outp (more content not included)...[facility] Evaluation noteNo ADMA BiologicsNort Formabilio Other Evaluation note* Diagnosis Type 2 diabetes 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, with long-term current use of insulin ([facility])- Primary C. difficile diarrhea Intestinal infection due to clostridium difficile ESRD (end stage renal disease) ([facility]/HCC) End stage renal disease Skin necrosis ([facility]/HCC) Other specified disorder of skin 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 2 diabetes mellitus ([facility]) Calciphylaxis Other disorder of calcium metabolism Hypertension secondary to other renal disorders Gastroparesis Anemia of chronic renal failure, stage 5 ([facility]) Acute gastritis without hemorrhage, unspecified gastritis type Physical deconditioning Muscular wasting and disuse atrophy, not elsewhere classified documented in this encounter [facility] HealthcareEvaluation note* Diagnosis Chronic diastolic heart failure (HCC)- Primary Chronic diastolic heart failure GERD without esophagitis Esophageal reflux documented in this encounter [facility] HealthcareEvaluation note* Diagnosis Open wound of abdominal wall, subsequent encounter- Primary C. difficile diarrhea Intestinal infection due to clostridium difficile Morbid (severe) obesity due to excess calories ([facility]) Body mass index (BMI) 40.0-44.9, adult ([facility]) ESRD (end stage renal disease) ([facility]) End stage renal disease Hemodialysis status Renal dialysis status 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 2 diabetes mellitus ([facility]) documented in this encounter [facility] HealthcareEvaluation note* Diagnosis Type 2 diabetes mellitus with diabetic neuropathy, with long-term current use of insulin ([facility])- Primary Radiculopathy, lumbar region Thoracic or lumbosacral neuritis or radiculitis, unspecified Chronic diastolic heart failure (HCC) Chronic diastolic heart failure Type 2 diabetes 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, with long-term current use of insulin (HCC) GERD without esophagitis Esophageal reflux ESRD (end stage renal disease) (HCC) End stage renal disease Open wound of abdominal wall, subsequent encounter documented in this encounter [facility] HealthcareHistory and physical note Author Xavier Mello [facility] HospitalNote Date/TimeJuly 2024 7:12pm[place] [address] Hospitalist H&P Signed Patient: Sourav Roque MR#: [id number] : 1970 Acct:[id number] Age/Sex: 55 / F Adm Date: 5 Loc: ER Room: Type: [facility] ER Attending Dr: Copies to: MD [...] and potassium of 3.4 lactic acid 0.7, liverenzymes within normal limit, BNP 643, Chest x-ray-small left-sided pleural effusion as before. CT of the abdomen pelvis- soft tissue defect is noted in a bandlike configuration along the abdominal pannus with subcutaneous emphysema. This is new when compared to the prior exam. There is accompanying skin thickening atthe margins of the areas of ulceration suggesting cellulitis. There is a small left-sided pleural effusion. There is perinephric fat stranding bilaterally similar to the prior exam. No bowel obstruction or obstructive uropathy. Patient got Teflaro and 1 L IV fluid in the ED. Review of Systems Review of Systems All other systems reviewed & are negative unless noted below or in HPI [facility] Medical History Dialysis patient Mon-Thu-Thu Gastroparesis ESRD [...] pen (Lantus Solostar U-100 Insulin) 10 unit subcutHS PRN hyperglycemia 03/30/25 [History Confirmed 05/08/25] metoclopramide [...] bowel sounds with no organomegaly, abdominal wound withdressing Extremity: moves all extremities, no restrictions of [...] 14:24 Hct 23.2 % (34.0-46.4) L 05/08/25 14: MCV 72.1 fl (80-100) L 05/08/25 14:24 MCH 21.4 pg (24.7-34.3) L 05/08/25 14:24 MCHC 29.7 g/dL (32.0-35.0) L 05/08/25 14:24 RDW 21.2 % (11.9-15.3) H 05/08/25 14:24 Plt Count 362 x10E3/uL (150-450) 05/08/25 14:24 MPV 7.5 fl (6.3-10.7) 05/08/25 14:24 Neut % (Auto) 81.7 % (.) 05/08/25 14:24 Lymph % (Auto) 10.6 % (.) 05/08/25 14:24 Mckenzie % (Auto) 6.1 % (.) 05/08/25 14: Eos % (Auto) 0.6 % (.) 05/08/25 14: Baso % (Auto) 1.0 % (.) 05/08/25 14:24 Nucleat RBC Rel Count 0.1 /100 WBC (0-0.5) 05/08/25 14:24 Neut # (Auto) 15.1 x10E3/uL (1.8-7.7) H 05/08/25 14:24 Lymph # (Auto) 1.9 x10E3/uL (1.00-4.8) 05/08/25 14:24 Mckenzie # (Auto) 1.1 x10E3/uL (0.0-0.8) H 05/08/25 14:24 Eos # (Auto) 0.1 x10E3/uL (0.0-0.45) 05/08/25 14:24 Baso # (Auto) 0.2 x10E3/uL (0.0-0.2) 05/08/25 14:24 Monocyte Dist Width 23.71 % (0.00-20.00) H 05/08/25 14:24 PT 15.2 Seconds (9.0-12.9) H 05/08/25 14:24 INR 1.3 05/08/25 14:24 APTT 36.6 Seconds [...] and potassium of 3.4 lactic acid 0.7, liverenzymes within normal limit, BNP 643, Chest x-ray-small left-sided pleural effusion as before. CT of the abdomen pelvis- soft tissue defect is noted in a bandlike configuration along the abdominal pannus with subcutaneous emphysema. This is new when compared to the prior exam. There is accompanying skin thickening atthe margins of the areas of ulceration suggesting [...] setting as: INPATIENT because of an expectation ofan over 2 midnight stay. Estimated length of stay (# of days): 3 Documented By: Xavier Mello MD 05/08/251906 Signed By: <Electronically signed by Xavier Mello MD> 05/08/251911 [facility] Work Phone: History general Narrative - Reported* Type Description Date Medical History Hypercholesteremia Medical HistoryType II diabetes mellitusSurgical HistoryD&CSurgical Historyscar tissuesSurgical Historyfracture repair ankle left elbow leftSurgical Historyoral surgerySurgical HistoryhysterectomySurgical Historytissue removed from left breast due to infectionHospitalization Historytissue infection in the left pbazqi40/2023 Implisit Other Hospital Discharge instructions Additional Instructions Wound/Ulcer Instructions/Orders Abdominal wounds: Dressing: Cleanse with VASHE, collagen silver , adaptic, alginate, ABD, foam tape Frequency: [facility] Work Phone: Hospital Discharge instructions Additional Instructions Resume negative pressure wound therapy for abdominal wound 3 times a week. [facility] Work Phone: Hospital Discharge instructions Additional Instructions Abdominal wound (until home wound vac arrives)- clean wound with Vashe. Honey gel to the wound bed. Top with Adaptic and gauze to fill wound bed. ABD pads. Secure with paper tape. /[facility] Work Phone: Summary Purpose Family History Relationship Condition Age at Onset Recorded Date/T darlyn mother Diabetes mellitus Unknown Chronic obstructive pulmonary diseaseUnknownfatherDiabetes mellitusUnknownfather DeceasedUnknownDiabetes mellitusUnknown Relationship Condition Age at Onset Recorded Date/T darlyn mother Diabetes mellitus Unknown Chronic obstructive pulmonary diseaseUnknownGastroparesisUnknownEnd-stage renal diseaseUnknownCongestive heart failureUnknownfatherDiabetes mellitusUnknown DeceasedUnknown Advance Directives Advance Directive Response Recorded Date/ Time Advance Directives No June 1:45pm Advance Directive Response Recorded Date/ Time Advance Directives No June 12:45pm Chief Complaint and Reason for Visit Chief [...] 25, 2025 10:[address] Hopkins for port placement Apr 12:04pm Reason for [...] 25, 2025 10:[address] Hopkins for port placement Apr 12:04pm Abnormal labs [...] 25, 2025 10:[address] Hopkins for port placement Apr 12:04pm Abnormal labs [...] 18, 2025 12:[address] Hopkins for port placement Apr 12:04pm Abnormal labs [...] 7am Necrosis of surgical wound May 30, 025 9:17am Open abdominal wall wound May 30 9:17am ESRD (end stage renal disease) May 9:17am Chief Complaint Admit Date Abdominal Wound March 30, 2025 1:59p m Abdominal Wound April 04, 2025 10:0 5am Z01.818 N18.6 April 18, 2025 12:[address] Hopkins for port placement Apr 12:04pm Abnormal labs [...] 18, 2025 12:[address] Hopkins for port placement Apr 12:04pm Abnormal labs May 08, 2025 6:02 pm Abnormal labs May 15, 2025 12:0 0am Abdominal Wound June 06, 2025 9: 48am esrd June 15, 2025 1: 04pm Open Wound- post op June 27, 2025 9:54am 3 WK SURG F/U; LEFT ARM AVF 06/16/25Jun ember 2024 12:52pm Reason for Visit Admit Date End stage renal disease on dialysis April 25, 2025 12:04pm Anemia of renal disease Emily 14th, 2025 6:02pm Benign hypertension with end-stage renal [...] 9:54am End stage renal disease on dialysis Jun 9:54am Gastroparesis June 27, 2025 9:54am Necrosis of surgical wound June 9:54am Open abdominal wall wound June 27, 2025 9:54am ESRD (end stage renal disease) June 27, 2025 9:54am Chief Complaint Admit Date Abnormal labs May 08, 2025 6:02 pm Abdominal Wound June 06, 2025 9: 48am esrd June 15, 2025 1: 04pm 3 WK SURG F/U; LEFT ARM AVF 06/16/25Jun 12:52pm Open Wound- post op August 01, 2025 11 :15am N18.6 August 15, 2025 1 1:58am 5 wk gfs 1230p August 15, 2025 1 1:59am Reason for Visit Admit Date Anemia of renal disease May 08, 2025 [...] chronic kidney disease June 15, 2025 1:04pm AV fistula July 11, 2025 12:52pm End stage renal disease on dialysis Jun emb2024 12:52pm ESRD (end stage renal disease) July 11, 2025 12:52pm Calciphylaxis August 01, 2025 11 :15am Diabetes August 01, 2025 11 :15am End stage renal disease on dialysis Octo 2024 11:15am Gastroparesis August 01, 2025 11 :15am Necrosis of surgical wound August 01, 2025 11:15am Open abdominal wall wound August 01 025 11:15am ESRD (end stage renal disease) August 012024 11:15am Chief Complaint Admit Date Abdominal Wound June 06, 2025 9: 48am esrd June 15, 2025 1: 04pm 3 WK SURG F/U; LEFT ARM AVF 06/16/25Jun 12:52pm Open Wound- post op August 01, 2025 11 :15am N18.6 August 15, 2025 1 1:58am 5 wk gfs 1230p August 15, 2025 1 1:59am Reason for Visit Admit Date Anemia of renal disease June 15 1:04pm Benign hypertension with end-stage renal disease June 15, 2025 1:04pm Cellulitis of abdominal wall May 1:04pm ESRD (end stage renal disease) June 152024 1:04pm Hyperkalemia June 15, 2025 1: 04pm Hypertension June 15, 2025 1: 04pm Necrosis of surgical wound June 15, 2025 1:04pm Open abdominal wall wound June 15 1:04pm Secondary hyperparathyroidism May 1:04pm Type 2 diabetes mellitus wit h diabetic chronic kidney disease June 15, 2025 1:04pm AV fistula July 11, 2025 12:52pm End stage renal disease on dialysis Jun 12:52pm ESRD (end stage renal disease) July 11, 2025 12:52pm Calciphylaxis August 01, 2025 11 :15am Diabetes August 01, 2025 11 :15am End stage renal disease on dialysis Octo 2024 11:15am Gastroparesis August 01, 2025 11 :15am Necrosis of surgical wound August 01, 2025 11:15am Open abdominal wall wound August 01 025 11:15am ESRD (end stage renal disease) August 012024 11:15am ESRD (end stage renal disease) July 272024 11:59am Chief Complaint Admit Date Abdominal Wound June 06, 2025 9: 48am esrd June 15, 2025 1: 04pm 3 WK SURG F/U; LEFT ARM AVF 06/16/25Jun 12:52pm N18.6 August 15, 2025 1 1:58am 5 wk gfs 1230p August 15, 2025 1 1:59am Open Wound- post op August 29, 2025 1 0:44am REF DR. HOPKINS FOR CHRONIC DIARRHEA [place] 2024 1:15pm Reason for Visit Admit Date Anemia of renal disease June 15 1:04pm Benign hypertension with end-stage renal disease June 15, 2025 1:04pm Cellulitis of abdominal wall May 1:04pm ESRD (end stage renal disease) June 152024 1:04pm Hyperkalemia June 15, 2025 1: 04pm Hypertension June 15, 2025 1: 04pm Necrosis of surgical wound June 15, 2025 1:04pm Open abdominal wall wound June 15, 1:04pm Secondary hyperparathyroidism May 1:04pm Type 2 diabetes mellitus wit h diabetic chronic kidney disease June 15, 2025 1:04pm AV fistula July 11, 2025 12:52pm End stage renal disease on dialysis Jun 12:52pm ESRD (end stage renal disease) July 11, 2025 12:52pm ESRD (end stage renal disease) July 272024 11:59am Calciphylaxis August 29, 2025 1 0:44am Diabetes August 29, 2025 1 0:44am End stage renal disease on dialysis [place] 2024 10:44am Gastroparesis August 29, 2025 1 0:44am Necrosis of surgical wound August 29, 2025 10:44am Open abdominal wall wound August 29, 2025 10:44am ESRD (end stage renal disease) August 29, 2025 10:44am Diarrhea August 29, 2025 1 :15pm Additional Source Comments INFORMATION SOURCE (unrecogn ized section and content) DATE CREATED AUTHOR 07/29/2022 [facility] DATE CREATED AUTHOR AUTHOR'S ORGANIZ ATION 03/11/2023 [facility] DATE CREATED AUTHOR AUTHOR'S ORGANIZ ATION 12/10/2023 [facility] DATE CREATED AUTHOR AUTHOR'S ORGANIZ ATION 07/14/2025 [facility] DATE CREATED AUTHOR AUTHOR'S ORGANIZ ATION 07/20/2025 [facility] DATE CREATED AUTHOR AUTHOR'S ORGANIZ ATION 08/16/2025 [facility] REASON FOR VISIT (unrecogniz ed section and content) ReasonOnset DateCommentsAppointment Ceqkbbf0612/21/2024ReasonCommentsMed Refill OxycodoneReasonCommentsDiabetesReasonCommentsDiabetesMed RefillAmlodipine, lantus, pantoprazole, lasix,losartan--DM chato Care Teams (unrecognized sec tion and content) Team Status: Active Member Role Status Rocío Deras II MD Primary Care Provider Active Team Status: Active Member Role Status Rocío Deras II MD Primary Care Provider Active Start: March 22, 2025 Eva Grant ProviderActiveStart: March 22, 2025 Team Status: Inactive Member Role Status Rocío Deras II MD Primary Care Provider Active Start: March 30, 2025 End: March 30Eva Rae ProviderActiveStart: March 30, 2025 End: March 30, 2025 Team Status: Inactive Member Role Status Rocío Deras II MD Primary Care Provider Active Start: April 04, 2025 End: April 04Eva Rae ProviderActiveStart: April 04, 2025 End: April 04, 2025 Team Status: Active Member Role Status Rocío Deras II MD Primary Care Provider Active Start: April 18, 2025 Eva Grant ProviderActiveStart: April 18, 2025 Team Status: Inactive Member Role Status Rocío Deras II MD Primary Care Provider Active Start: April 18, 2025 End: April 18, 2025Eva Grant ProviderActiveStart: April 18, 2025 End: April 18, 2025 Team Status: Inactive Member Role Status Rocío Deras II MD Primary Care Provider Active Start: April 25, 2025 End: April 25, 2025Eva Summers ProviderActiveStart: April 25, 2025 End: April 25, 2025 Team Status: Active Member Role Status Rocío Deras II MD Primary Care Provider Active Start: May 08, 2025 DONAVAN Raymond-Mitchell ProviderActiveStart: May 08, 2025 Kevin Dacosta ProviderActiveStart: May 08, 2025 Xavier Mello MDOther ProviderActiveStart: May 08, 2025 Miguel Mirandaending ProviderActiveStart: May 08, 2025 Nate Miranda ProviderActiveStart: May 08, 2025 Carmita Baker MDOther ProviderActiveStart: May 08, 2025 Juan Carlos Chavez MDOther ProviderActiveStart: May 08, 2025 Team Status: Active Member Role Status Dates Ayaan Deras II MD Primary Care Provider Active Start: May 15, 2025 DONAVAN [facility] ProviderActiveStart: May 15, 2025 Kevin Dacosta ProviderActiveStart: May 15, 2025 Liliana Soliz MDOther ProviderActiveStart: May 15, 2025 Carmita Baker MDOther ProviderActiveStart: May 15, 2025 Nate Magallon ProviderActiveStart: May 15, 2025 Aris Patel MDOther ProviderActiveStart: May 15, 2025 Miguel Grantending ProviderActiveStart: May 15, 2025 Team Status: Active Member Role Status Dates Ayaan Deras II MD Primary Care Provider Active Start: May 30, 2025 Miguel Magallonending ProviderActiveStart: May 30, 2025 Team Status: Inactive Member Role Status Dates Ayaan Deras II MD Primary Care Provider Active Start: June 06, 2025 End: June 06Eva Rae ProviderActiveStart: June 06, 2025 End: June 06, 2025 Team Status: Active Member Role Status Dates Ayaan Deras II MD Primary Care Provider Active Start: June 15, 2025 Kevin Summers ProviderActiveStart: June 15, 2025 Nestor Wright MDOther ProviderActiveStart: June 15, 2025 Lidia Crowley RNOther ProviderActiveStart: June 15, 2025 Florence Poon , SALTYOther ProviderActiveStart: June 15, 2025 Kristal Garcia , SALTYOther ProviderActiveStart: June 15, 2025 Sima Guajardo RNOther ProviderActiveStart: June 15, 2025 Catherine Garcia RNOther ProviderActiveStart: June 15, 2025 Sunshine Benson , SALTYOther ProviderActiveStart: June 15, 2025 Tyra Berg MDOther ProviderActiveStart: June 15, 2025 Gurwinder Balderas , DOOther ProviderActiveStart: June 15, 2025 Jose Pate MDOther ProviderActiveStart: June 15, 2025 Kemal Yu , DOOther ProviderActiveStart: June 15, 2025 Naresh Samaniego MDOther ProviderActiveStart: June 15, 2025 Kiley Wilson MDOther ProviderActiveStart: June 15, 2025 Liliana Ackerman , DOOther ProviderActiveStart: June 15, 2025 Sebastián Eldridge MDOther ProviderActiveStart: June 15, 2025 Harleen Larson , APRNOther ProviderActiveStart: June 15, 2025 Aris Patel MDOther ProviderActiveStart: June 15, 2025 Shireen Chowdary MDOther ProviderActiveStart: June 15, 2025 Latasha Bowles MDOther ProviderActiveStart: June 15, 2025 Liliana Morrison , DOOther ProviderActiveStart: June 15, 2025 Eliud Rojas MDOther ProviderActiveStart: June 15, 2025 Migue Mcgrath MDOther ProviderActiveStart: June 15, 2025 Elsi Marcial , QUALITY CONTROL REPRESENTATIVE-COther ProviderActiveStart: June 15, 2025 Evelia Cortez , APRNOther ProviderActiveStart: June 15, 2025 Rosas Paez MDOther ProviderActiveStart: June 15, 2025 Porter Toth MDOther ProviderActiveStart: June 15, 2025 Tatianna Dumont MDOther ProviderActiveStart: June 15, 2025 Koki Naranjo , DOOther ProviderActiveStart: June 15, 2025 Abelardo Mccann , DOOther ProviderActiveStart: June 15, 2025 Catina Stovall , APRNOther ProviderActiveStart: June 15, 2025 Hari Powell , DOOther ProviderActiveStart: June 15, 2025 Jameel Mayorga MDOther ProviderActiveStart: June 15, 2025 Macarena G Arias , APRNOther ProviderActiveStart: June 15, 2025 Penny Reinoso , APRNOther ProviderActiveStart: June 15, 2025 Jay Kurtz MDOther ProviderActiveStart: June 15, 2025 Ayaan Espinoza MDOther ProviderActiveStart: June 15, 2025 Lorraine Garner , DOOther ProviderActiveStart: June 15, 2025 Anshul Tomas MDOther ProviderActiveStart: June 15, 2025 Genia Calvin MDOther ProviderActiveStart: June 15, 2025 Rahel Johnston , APRNOther ProviderActiveStart: June 15, 2025 Becky Nash MDOther ProviderActiveStart: June 15, 2025 Dylan Gooden MDOther ProviderActiveStart: June 15, 2025 Sebastián Naidu MDOther ProviderActiveStart: June 15, 2025 Jhony Ward MDOther ProviderActiveStart: June 15, 2025 Soraya Perez , APRNOther ProviderActiveStart: June 15, 2025 Rigo Javier , APRNOther ProviderActiveStart: June 15, 2025 Kayy Richardson RNOther ProviderActiveStart: June 15, 2025 Jessica Christian MDOther ProviderActiveStart: June 15, 2025 Liliana Soliz MDAttending ProviderActiveStart: June 15, 2025 Liliana Soliz MDOther ProviderActiveStart: June 15, 2025 Team Status: Inactive Member Role Status Dates Hari Powell , DO Admit Provider Active Start: February 23, 2025 End: March 09, 2025DaGISELLE Krishnarimary Care ProviderActiveStart: February 23, 2025 End: March 09, 2025Liliana Soliz MDOther ProviderActiveStart: February 23, 2025 End: March 09, 2025Rodo Hopkins MDOther ProviderActiveStart: February 23, 2025 End: March 09edd Cueva MDOther ProviderActiveStart: February 23, 2025 End: March 09, 2025Nestor Wright MDOther ProviderActiveStart: February 23, 2025 End: March 09atherine L Ly , DOOther ProviderActiveStart: February 23, 2025 End: March 09, 2025Eileentariq Audeliacait , DOAttending ProviderActiveStart: February 23, 2025 End: March 09, 2025 Team Status: Active Member Role Status Dates Hari Powell DO Admit Provider Active Start: February 23, 2025 Ayaan Deras II MDPrimary Care ProviderActiveStart: February 23, 2025 Nate Esparza ProviderActiveStart: February 23, 2025 Nate Grant ProviderActiveStart: February 23, 2025 Isai Rodrigues DOOther ProviderActiveStart: February 23, 2025 Liliana Soliz MDAttending Provider, Other ProviderActiveStart: February 23, 2025 Team Status: Active Member Role Status Dates Hari Powell , Admit Provider Active Start: February 23, 2025 Ayaan Deras II MDPrimary Care ProviderActiveStart: February 23, 2025 Nate Esparza ProviderActiveStart: February 23, 2025 Rodo Hopkins MDAttending Provider, Other ProviderActiveStart: February 23, 2025 Isai Rodrigues DOOther ProviderActiveStart: February 23, 2025 Nate Miranda ProviderActiveStart: February 23, 2025 Nate Summers ProviderActiveStart: February 23, 2025 Team Status: Active Member Role Status Dates Hari Powell DO Admit Provider Active Start: February 24, 2025 Ayaan Deras II MDPrimary Care ProviderActiveStart: February 24, 2025 Nate Grant ProviderActiveStart: February 24, 2025 Isai Rodrigues DOOther ProviderActiveStart: February 24, 2025 Nate Miranda ProviderActiveStart: February 24, 2025 Nestor Wright MDAttending Provider, Other ProviderActiveStart: February 24, 2025 Nate Esparza ProviderActiveStart: February 24, 2025 Germain Cueva MDOther ProviderActiveStart: February 24, 2025 Team Status: Active Member Role Status Dates Hari Powell DO Admit Provider Active Start: February 25, 2025 Ayaan Deras II MDPrimary Care ProviderActiveStart: February 25, 2025 Becky Nash MDOther ProviderActiveStart: February 25, 2025 Isai Rodrigues DOOther ProviderActiveStart: February 25, 2025 Liliana Soliz MDOther ProviderActiveStart: February 25, 2025 Nate Grant ProviderActiveStart: February 25, 2025 Germain Cueva MDAttending Provider, Other ProviderActiveStart: February 25, 2025 Nestor Wright MDOther ProviderActiveStart: February 25, 2025 Team Status: Inactive Member Role Status Dates Ayaan Deras II MD Primary Care Provider Active Start: February 27, 2025 End: February 27elaina Christian MDAttending ProviderActiveStart: February 27, 2025 End: February 27, 2025 Team Status: Active Member Role Status Dates Hari Powell , Admit Provider Active Start: February 28, 2025 Ayaan Deras II MDPrimary Care ProviderActiveStart: February 28, 2025 Becky Nash MDOther ProviderActiveStart: February 28, 2025 Isai Rodrigues DOOther ProviderActiveStart: February 28, 2025 Liliana Soliz MDOther ProviderActiveStart: February 28, 2025 Rodo Hopkins MDOther ProviderActiveStart: February 28, 2025 Germain Cueva MDOther ProviderActiveStart: February 28, 2025 Nestor Wright MDOther ProviderActiveStart: February 28, 2025 Steph Parr , DOAttending Provider, Other ProviderActiveStart: February 28, 2025 Team Status: Active Member Role Status Dates Hari Powell , Admit Provider Active Start: March 02, 2025 Ayaan Deras II MDPrimary Care ProviderActiveStart: March 02, 2025 Becky Nash MDOther ProviderActiveStart: March 02, 2025 Liliana Soliz MDAttending Provider, Other ProviderActiveStart: March 02, 2025 Rodo Hopkins MDOther ProviderActiveStart: March 02, 2025 Nate Menchaca ProviderActiveStart: March 02, 2025 Nestor Wright MDOther ProviderActiveStart: March 02, 2025 Steph Parr , DOOther ProviderActiveStart: March 02, 2025 Team Status: Active Member Role Status Dates Hari Powell , Admit Provider Active Start: March 02, 2025 Ayaan Deras II MDPrimary Care ProviderActiveStart: March 02, 2025 Becky Nash MDOther ProviderActiveStart: March 02, 2025 Nate Miranda ProviderActiveStart: March 02, 2025 Rodo Hopkins MDOther ProviderActiveStart: March 02, 2025 Germain Cueva MDOther ProviderActiveStart: March 02, 2025 Nestor Wright MDOther ProviderActiveStart: March 02, 2025 Steph L Ly , DOOther ProviderActiveStart: March 02, 2025 Jessica Christian MDAttending ProviderActiveStart: March 02, 2025 Team Status: Active Member Role Status Dates Hari Powell , Admit Provider Active Start: March 09, 2025 Ayaan Deras II MDPrimary Care ProviderActiveStart: March 09, 2025 Eva Miranda Provider, Other ProviderActiveStart: March 09, 2025 Rodo Hopkins MDOther ProviderActiveStart: March 09, 2025 Germain Cueva MDOther ProviderActiveStart: March 09, 2025 Nestor Wright MDOther ProviderActiveStart: March 09, 2025 Steph Angel Ly , DOOther ProviderActiveStart: March 09, 2025 Kemal Yu , DOOther ProviderActiveStart: March 09, 2025 Team Status: Active Member Role Status Dates Hari Powell , Admit Provider Active Start: March 09, 2025 Ayaan Deras II MDPrimary Care ProviderActiveStart: March 09, 2025 Liliana Soliz MDOther ProviderActiveStart: March 09, 2025 Rodo Hopkins MDOther ProviderActiveStart: March 09, 2025 Germain Cueva MDOther ProviderActiveStart: March 09, 2025 Nestor Wright MDOther ProviderActiveStart: March 09, 2025 Steph Angel Ly , DOOther ProviderActiveStart: March 09, 2025 Kemal Yu , DOOther ProviderActiveStart: March 09, 2025 Carmita Samuel , MDAttending ProviderActiveStart: March 09, 2025 Team Status: Active Member Role Status Dates Ayaan Deras II MD Primary Care Provider Active Start: March 28, 2025 Juan Carlos Chaevz , MDAttending ProviderActiveStart: March 28, 2025 Team MemberRelationshipSpecialtyStart DateEnd Date Ayaan Deras MD [address] [facility] [address] [place] [address] PCP - GeneralInternal Medicine03/09/23 Team Status: Active Member Role Status Dates Hari Powell , Admit Provider Active Start: February 23, 2025 Ayaan Deras II MDPrimary Care ProviderActiveStart: February 23, 2025 Becky Nash MDAttending ProviderActiveStart: February 23, 2025 Isai Rodrigues DOOther ProviderActiveStart: February 23, 2025 Liliana Soliz MDOther ProviderActiveStart: February 23, 2025 Rodo Hopkins MDOther ProviderActiveStart: February 23, 2025 Germain Cueva MDOther ProviderActiveStart: February 23, 2025 Nestor Wright MDOther ProviderActiveStart: February 23, 2025 Team Status: Inactive Member Role Status Dates Hrai Powell , Admit Provider Active Start: February 23, 2025 End: March 10, 2025Daravi Deras II MDPrimary Care ProviderActiveStart: February 23, 2025 End: March 10, 2025Liliana Soliz MDOther ProviderActiveStart: February 23, 2025 End: March 10, 2025Rodo Hopkins MDOther ProviderActiveStart: February 23, 2025 End: March 10edd Cueva MDOther ProviderActiveStart: February 23, 2025 End: March 10, 2025Nestor Wright MDOther ProviderActiveStart: February 23, 2025 End: March 10phoebe Parr DOOther ProviderActiveStart: February 23, 2025 End: March 10, 2025Kemal Yu DOAttending ProviderActiveStart: February 23, 2025 End: March 10, 2025 Team Status: Active Member Role Status Dates Hari Powell DO Admit Provider Active Start: February 23, 2025 Ayaan Deras II MDPrimary Care ProviderActiveStart: February 23, 2025 Nate Esparza ProviderActiveStart: February 23, 2025 Nate Grant ProviderActiveStart: February 23, 2025 Isai Rodrigues DOOther ProviderActiveStart: February 23, 2025 Miguel Mirandaending ProviderActiveStart: February 23, 2025 Nate Miranda ProviderActiveStart: February 23, 2025 Team Status: Active Member Role Status Dates Hari Powell , Admit Provider Active Start: February 23, 2025 Ayaan Deras II MDPrimary Care ProviderActiveStart: February 23, 2025 Nate Esparza ProviderActiveStart: February 23, 2025 Miguel Grantending ProviderActiveStart: February 23, 2025 Nate Grant ProviderActiveStart: February 23, 2025 Isai Rodrigues DOOther ProviderActiveStart: February 23, 2025 Liliana Soliz MDOther ProviderActiveStart: February 23, 2025 Nestor Wright MDOther ProviderActiveStart: February 23, 2025 Team Status: Active Member Role Status Dates Hari Powell , Admit Provider Active Start: February 24, 2025 Ayaan Deras II MDPrimary Care ProviderActiveStart: February 24, 2025 Rodo Hopkins MDOther ProviderActiveStart: February 24, 2025 Isai Rodrigues DOOther ProviderActiveStart: February 24, 2025 Nate Miranda ProviderActiveStart: February 24, 2025 Miguel Summersending ProviderActiveStart: February 24, 2025 Nate Summers ProviderActiveStart: February 24, 2025 Nate Esparza ProviderActiveStart: February 24, 2025 Germain Cueva MDOther ProviderActiveStart: February 24, 2025 Team Status: Active Member Role Status Dates Hari Powell DO Admit Provider Active Start: February 25, 2025 Ayaan Deras II MDPrimary Care ProviderActiveStart: February 25, 2025 Becky Nash MDOther ProviderActiveStart: February 25, 2025 Isai Rodrigues DOOther ProviderActiveStart: February 25, 2025 Nate Miranda ProviderActiveStart: February 25, 2025 Nate Grant ProviderActiveStart: February 25, 2025 Germain Cueva MDAttending ProviderActiveStart: February 25, 2025 Germain Cueva MDOther ProviderActiveStart: February 25, 2025 Nestor Wright MDOther ProviderActiveStart: February 25, 2025 Team Status: Active Member Role Status Dates Hari Powell , Admit Provider Active Start: February 28, 2025 Ayaan Deras II MDPrimary Care ProviderActiveStart: February 28, 2025 Becky Nash MDOther ProviderActiveStart: February 28, 2025 Isai Rodrigues DOOther ProviderActiveStart: February 28, 2025 Liliana Soliz MDOther ProviderActiveStart: February 28, 2025 Rodo Hopkins MDOther ProviderActiveStart: February 28, 2025 Germain Cueva MDOther ProviderActiveStart: February 28, 2025 Nestor Wright MDOther ProviderActiveStart: February 28, 2025 Steph L Ly , DOAttending ProviderActiveStart: February 28, 2025 Steph L Ly , DOOther ProviderActiveStart: February 28, 2025 Team Status: Active Member Role Status Dates Hari Powell , Admit Provider Active Start: March 02, 2025 Ayaan Deras II MDPrimary Care ProviderActiveStart: March 02, 2025 Becky Nash MDOther ProviderActiveStart: March 02, 2025 Eva Miranda ProviderActiveStart: March 02, 2025 Liliana Soliz MDOther ProviderActiveStart: March 02, 2025 Nate Grant ProviderActiveStart: March 02, 2025 Germain Cueva MDOther ProviderActiveStart: March 02, 2025 Nestor Wright MDOther ProviderActiveStart: March 02, 2025 Steph L Ly , DOOther ProviderActiveStart: March 02, 2025 Team Status: Active Member Role Status Dates Hari Powell , DO Admit Provider Active Start: March 09, 2025 Ayaan [facility]eras II [facility] ProviderActiveStart: March 09, 2025 Liliana Soliz , LAWRENCEttending ProviderActiveStart: March 09, 2025 Liliana Soliz MDOther ProviderActiveStart: March 09, 2025 Rodo Hopkins MDOther ProviderActiveStart: March 09, 2025 Germain Cueva MDOther ProviderActiveStart: March 09, 2025 Nestor Wright MDOther ProviderActiveStart: March 09, 2025 Steph Parr , DOOther ProviderActiveStart: March 09, 2025 Kemal Yu , DOOther ProviderActiveStart: March 09, 2025 Team Status: Active Member Role Status Dates Ayaan Deras II MD Primary Care Provider Active Start: April 25, 2025 Juan Carlos Chavez , MDAttending ProviderActiveStart: April 25, 2025 Team Status: Active Member Role Status Dates Ayaan Deras II MD Primary Care Provider Active Start: May 08, 2025 CHALINO RaymondCEmergencluís ProviderActiveStart: May 08, 2025 Kevin Dacosta ProviderActiveStart: May 08, 2025 Xavier Mello MDAttending ProviderActiveStart: May 08, 2025 Team Status: Active Member Role Status Rocío Deras II MD Primary Care Provider Active Start: May 19, 2025 Jessica Christian MDAttending ProviderActiveStart: May 19, 2025 Team Status: Active Member Role Status Rocío Deras II MD Primary Care Provider Active Start: June 27, 2025 Juan Carlos Chavez MDAttending ProviderActiveStart: June 27, 2025 Team Status: Inactive Member Role Status Dates Ayaan Deras II MD Primary Care Provider Active Start: July 11, 2025 End: July 11, 2025Juvencio Lepe ProviderActiveStart: July 11, 2025 End: July 11, 2025 Team Status: Active Member Role/Relationship Status Dates Ayaan Deras II MD Primary Care Provider Active Team Status: Inactive Member Role/Relationship Status Rocío Deras II MD Primary Care Provider Active Start: May 08, 2025 End: May 17Blossom Caballero ProviderActiveStart: May 08, 2025 End: May 17Kevin Jay ProviderActiveStart: May 08, 2025 End: May 17, 2025Liliana Soliz MDOther ProviderActiveStart: May 08, 2025 End: May 17Nate Anand ProviderActiveStart: May 08, 2025 End: May 17Nate Rae ProviderActiveStart: May 08, 2025 End: May 17, 2025Aris Patel MDAttending ProviderActiveStart: May 08, 2025 End: May 17, 2025 Team Status: Active Member Role/Relationship Status Dates Ayaan Deras II MD Primary Care Provider Active Start: May 19, 2025 Miguel Armijoending ProviderActiveStart: May 19, 2025 Team Status: Inactive Member Role/Relationship Status Dates Ayaan Deras II MD Primary Care Provider Active Start: June 06, 2025 End: June 06Miguel Raeending ProviderActiveStart: June 06, 2025 End: June 06, 2025 Team Status: Active Member Role/Relationship Status Dates Ayaan Deras II MD Primary Care Provider Active Start: June 15, 2025 Kevin Summers ProviderActiveStart: June 15, 2025 Nestor Wright MDOther ProviderActiveStart: June 15, 2025 Lidia Crowley RNOther ProviderActiveStart: June 15, 2025 Florence Poon , SALTYOther ProviderActiveStart: June 15, 2025 Kristal Garcia , SALTYOther ProviderActiveStart: June 15, 2025 Sima Guajardo RNOther ProviderActiveStart: June 15, 2025 Catherine Garcia RNOther ProviderActiveStart: June 15, 2025 Sunshine Benson , SALTYOther ProviderActiveStart: June 15, 2025 Tyra Berg MDOther ProviderActiveStart: June 15, 2025 Gurwinder Balderas DOOther ProviderActiveStart: June 15, 2025 Jose Pate MDOther ProviderActiveStart: June 15, 2025 Kemal Yu , DOOther ProviderActiveStart: June 15, 2025 Naresh Samaniego MDOther ProviderActiveStart: June 15, 2025 Kiley Wilson MDOther ProviderActiveStart: June 15, 2025 Liliana Ackerman , DOOther ProviderActiveStart: June 15, 2025 Sebastián Eldridge MDOther ProviderActiveStart: June 15, 2025 Harleen Larson , APRNOther ProviderActiveStart: June 15, 2025 Aris Patel MDOther ProviderActiveStart: June 15, 2025 Shireen Chowdary MDOther ProviderActiveStart: June 15, 2025 Latasha Bowles MDOther ProviderActiveStart: June 15, 2025 Lliiana Morrison , DOOther ProviderActiveStart: June 15, 2025 Eliud Rojas MDOther ProviderActiveStart: June 15, 2025 Migue Mcgrath MDOther ProviderActiveStart: June 15, 2025 Elsi Marcial , QUALITY CONTROL REPRESENTATIVE-COther ProviderActiveStart: June 15, 2025 Evelia Cortez , APRNOther ProviderActiveStart: June 15, 2025 Rosas Paez MDOther ProviderActiveStart: June 15, 2025 Porter Toth MDOther ProviderActiveStart: June 15, 2025 Tatianna Dumont MDOther ProviderActiveStart: June 15, 2025 Koki Naranjo , DOOther ProviderActiveStart: June 15, 2025 Abelardo Mccann , DOOther ProviderActiveStart: June 15, 2025 Catina Stovall , APRNOther ProviderActiveStart: June 15, 2025 Hari Powell , DOOther ProviderActiveStart: June 15, 2025 Jameel Mayorga MDOther ProviderActiveStart: June 15, 2025 Macarena Arias , APRNOther ProviderActiveStart: June 15, 2025 Penny Reinoso , APRNOther ProviderActiveStart: June 15, 2025 Jay Kurtz MDOther ProviderActiveStart: June 15, 2025 Ayaan Espinoza MDOther ProviderActiveStart: June 15, 2025 Lorraine Garner , DOOther ProviderActiveStart: June 15, 2025 Anshul Tomas MDOther ProviderActiveStart: June 15, 2025 Genia Calvin MDOther ProviderActiveStart: June 15, 2025 Rahel Johnston , APRNOther ProviderActiveStart: June 15, 2025 Becky Nash MDOther ProviderActiveStart: June 15, 2025 Dylan Gooden MDOther ProviderActiveStart: June 15, 2025 Sebastián Naidu MDOther ProviderActiveStart: June 15, 2025 Jhony Ward MDOther ProviderActiveStart: June 15, 2025 Soraya Perez , APRNOther ProviderActiveStart: June 15, 2025 Rigo Javier APRNOther ProviderActiveStart: June 15, 2025 Kayy Richardson RNOther ProviderActiveStart: June 15, 2025 Jessica Christian MDOther ProviderActiveStart: June 15, 2025 Liliana Soliz MDAttending ProviderActiveStart: June 15, 2025 Liliana Soliz MDOther ProviderActiveStart: June 15, 2025 Team Status: Active Member Role/Relationship Status Dates Ayaan Deras II MD Primary Care Provider Active Start: June 23, 2025 Eva Armijo ProviderActiveStart: June 23, 2025 Team Status: Inactive Member Role/Relationship Status Dates Ayaan Deras II MD Primary Care Provider Active Start: July 11, 2025 End: July 11, 2025Geneva Holden , QUALITY CONTROL REPRESENTATIVE-CAttending ProviderActiveStart: July 11, 2025 End: July 11, 2025 Team Status: Active Member Role/Relationship Status Dates Ayaan Deras II MD Primary Care Provider Active Start: July 21, 2025 Eva Armijo ProviderActiveStart: July 21, 2025 Team Status: Active Member Role/Relationship Status Dates Ayaan Deras II MD Primary Care Provider Active Start: August 01, 2025 Eva Magallon ProviderActiveStart: August 01, 2025 Team Status: Active Member Role/Relationship Status Dates Ayaan Deras II MD Primary Care Provider Active Start: August 15, 2025 Nestor Wright MDAttending ProviderActiveStart: August 15, 2025 Team Status: Inactive Member Role/Relationship Status Dates Ayaan Deras II MD Primary Care Provider Active Start: August 15, 2025 End: August 15, 2025Nestor Wright MDAttending ProviderActiveStart: August 15, 2025 End: August 15, 2025 Team Status: Active Member Role/Relationship Status Dates Ayaan Deras II MD Primary Care Provider Active Start: May 19, 2025 Jessica Christian MDAttending ProviderActiveStart: May 19, 2025 Team Status: Inactive Member Role/Relationship Status Dates Ayaan Deras II MD Primary Care Provider Active Start: June 06, 2025 End: June 06lupe ChavezLAWRENCE armstrongttending ProviderActiveStart: June 06, 2025 End: June 06, 2025 Team Status: Active Member Role/Relationship Status Dates Ayaan Deras II MD Primary Care Provider Active Start: June 15, 2025 Kevin Summers ProviderActiveStart: June 15, 2025 Nestor Wright MDOther ProviderActiveStart: June 15, 2025 Lidia Crowley , RNOther ProviderActiveStart: June 15, 2025 Florence Poon , SALTYOther ProviderActiveStart: June 15, 2025 Kristal Garcia , SALTYOther ProviderActiveStart: June 15, 2025 Sima Guajardo , SALTYOther ProviderActiveStart: June 15, 2025 Catherine Garcia , SALTYOther ProviderActiveStart: June 15, 2025 Sunshine Benson , SALTYOther ProviderActiveStart: June 15, 2025 Tyra Berg MDOther ProviderActiveStart: June 15, 2025 Gurwinder Balderas , DOOther ProviderActiveStart: June 15, 2025 Jose Pate MDOther ProviderActiveStart: June 15, 2025 Kemal Yu , DOOther ProviderActiveStart: June 15, 2025 Naresh Samaniego MDOther ProviderActiveStart: June 15, 2025 Kiley Wilson MDOther ProviderActiveStart: June 15, 2025 Liliana Ackerman , DOOther ProviderActiveStart: June 15, 2025 Sebastián Eldridge MDOther ProviderActiveStart: June 15, 2025 Harleen Larson , APRNOther ProviderActiveStart: June 15, 2025 Aris Patel MDOther ProviderActiveStart: June 15, 2025 Shireen Chowdary MDOther ProviderActiveStart: June 15, 2025 Latasha Bowles MDOther ProviderActiveStart: June 15, 2025 Liliana Morrison , DOOther ProviderActiveStart: June 15, 2025 Eliud Rojas MDOther ProviderActiveStart: June 15, 2025 Migue Mcgrath MDOther ProviderActiveStart: June 15, 2025 Elsi Marcial , QUALITY CONTROL REPRESENTATIVE-COther ProviderActiveStart: June 15, 2025 Evelia Cortez , APRNOther ProviderActiveStart: June 15, 2025 Rosas Paez MDOther ProviderActiveStart: June 15, 2025 Porter Toth MDOther ProviderActiveStart: June 15, 2025 Tatianna Dumont MDOther ProviderActiveStart: June 15, 2025 Koki Naranjo , DOOther ProviderActiveStart: June 15, 2025 Abelardo Mccann , DOOther ProviderActiveStart: June 15, 2025 Catina Stovall , APRNOther ProviderActiveStart: June 15, 2025 Hari Powell , DOOther ProviderActiveStart: June 15, 2025 Jameel Mayorga MDOther ProviderActiveStart: June 15, 2025 Macarena Arias , APRNOther ProviderActiveStart: June 15, 2025 Penny Reinoso , APRNOther ProviderActiveStart: June 15, 2025 Jay Kurtz MDOther ProviderActiveStart: June 15, 2025 Ayaan Espinoza MDOther ProviderActiveStart: June 15, 2025 Lorraine Garner , DOOther ProviderActiveStart: June 15, 2025 Anshul Tomas MDOther ProviderActiveStart: June 15, 2025 Genia Calvin MDOther ProviderActiveStart: June 15, 2025 Rahel Johnston , APRNOther ProviderActiveStart: June 15, 2025 Becky Nash MDOther ProviderActiveStart: June 15, 2025 Dylan Gooden MDOther ProviderActiveStart: June 15, 2025 Sebastián Naidu MDOther ProviderActiveStart: June 15, 2025 Jhony Ward MDOther ProviderActiveStart: June 15, 2025 Soraya Perez , APRNOther ProviderActiveStart: June 15, 2025 Rigo Javier , APRNOther ProviderActiveStart: June 15, 2025 Kayy Richardson RNOther ProviderActiveStart: June 15, 2025 Jessica Christian MDOther ProviderActiveStart: June 15, 2025 Liliana Soliz MDAttending ProviderActiveStart: June 15, 2025 Liliana Soliz MDOther ProviderActiveStart: June 15, 2025 Team Status: Active Member Role/Relationship Status Dates Ayaan Deras II MD Primary Care Provider Active Start: June 23, 2025 Miguel Armijoending ProviderActiveStart: June 23, 2025 Team Status: Inactive Member Role/Relationship Status Dates Ayaan Deras II MD Primary Care Provider Active Start: July 11, 2025 End: July 11, 2025Geneva Holden , QUALITY CONTROL REPRESENTATIVE-CAttending ProviderActiveStart: July 11, 2025 End: July 11, 2025 Team Status: Active Member Role/Relationship Status Dates Ayaan Deras II MD Primary Care Provider Active Start: July 21, 2025 Miguel Armijoending ProviderActiveStart: July 21, 2025 Team Status: Active Member Role/Relationship Status Dates Ayaan Deras II MD Primary Care Provider Active Start: August 01, 2025 Juan Carlos Chavez MDAttending ProviderActiveStart: August 01, 2025 Team Status: Inactive Member Role/Relationship Status Dates Ayaan Deras II MD Primary Care Provider Active Start: August 15, 2025 End: August 15, 2025Nestor Wright MDAttending ProviderActiveStart: August 15, 2025 End: August 15, 2025 Team Status: Inactive Member Role/Relationship Status Dates Ayaan Deras II MD Primary Care Provider Active Start: August 15, 2025 End: August 15, 2025Nestor Wright MDAttending ProviderActiveStart: August 15, 2025 End: August 15, 2025 Team Status: Inactive Member Role/Relationship Status Rocío Deras II MD Primary Care Provider Active Start: June 06, 2025 End: June 06lupe Chavez MDAttending ProviderActiveStart: June 06, 2025 End: June 06, 2025 Team Status: Active Member Role/Relationship Status Dates Ayaan Deras II MD Primary Care Provider Active Start: June 15, 2025 Julia Summersit ProviderActiveStart: June 15, 2025 Nestor Wright MDOther ProviderActiveStart: June 15, 2025 Lidia Crowley , SALTYOther ProviderActiveStart: June 15, 2025 Florence Poon , RNOther ProviderActiveStart: June 15, 2025 Kristal Garcia , RNOther ProviderActiveStart: June 15, 2025 Sima Guajardo , SALTYOther ProviderActiveStart: June 15, 2025 Catherine Garcia , SALTYOther ProviderActiveStart: June 15, 2025 Sunshine Benson , SALTYOther ProviderActiveStart: June 15, 2025 Tyra Berg MDOther ProviderActiveStart: June 15, 2025 Gurwinder Balderas , DOOther ProviderActiveStart: June 15, 2025 Jose Pate MDOther ProviderActiveStart: June 15, 2025 Kemal Yu , DOOther ProviderActiveStart: June 15, 2025 Naresh Samaniego MDOther ProviderActiveStart: June 15, 2025 Kiley Wilson MDOther ProviderActiveStart: June 15, 2025 Liliana Ackerman DOOther ProviderActiveStart: June 15, 2025 Sebastián Eldridge MDOther ProviderActiveStart: June 15, 2025 Harleen Larson APRNOther ProviderActiveStart: June 15, 2025 Aris Patel MDOther ProviderActiveStart: June 15, 2025 Shireen Chowdary MDOther ProviderActiveStart: June 15, 2025 Latasha Bowles MDOther ProviderActiveStart: June 15, 2025 Liliana Mrorison DOOther ProviderActiveStart: June 15, 2025 Eliud Rojas MDOther ProviderActiveStart: June 15, 2025 Migue Mcgrath MDOther ProviderActiveStart: June 15, 2025 Elsi Marcial NP-COther ProviderActiveStart: June 15, 2025 Adjondi M Born , APRNOther ProviderActiveStart: June 15, 2025 Rosas Paez MDOther ProviderActiveStart: June 15, 2025 Porter Toth MDOther ProviderActiveStart: June 15, 2025 Tatianna Dumont MDOther ProviderActiveStart: June 15, 2025 Koki Naranjo , DOOther ProviderActiveStart: June 15, 2025 Abelardo Mccann , DOOther ProviderActiveStart: June 15, 2025 Catina Stovall , APRNOther ProviderActiveStart: June 15, 2025 Hari Powell , DOOther ProviderActiveStart: June 15, 2025 Jameel Mayorga MDOther ProviderActiveStart: June 15, 2025 Macarena Arias , APRNOther ProviderActiveStart: June 15, 2025 Penny Reinoso , APRNOther ProviderActiveStart: June 15, 2025 Jay Kurtz MDOther ProviderActiveStart: June 15, 2025 Ayaan Espinoza MDOther ProviderActiveStart: June 15, 2025 Lorraine Garner , DOOther ProviderActiveStart: June 15, 2025 Anshul Tomas MDOther ProviderActiveStart: June 15, 2025 Genia Calvin MDOther ProviderActiveStart: June 15, 2025 Rahel Johnston , APRNOther ProviderActiveStart: June 15, 2025 Becky Nash MDOther ProviderActiveStart: June 15, 2025 Dylan Gooden MDOther ProviderActiveStart: June 15, 2025 Sebastián Naidu MDOther ProviderActiveStart: June 15, 2025 Jhony Ward MDOther ProviderActiveStart: June 15, 2025 Soraya Perez , APRNOther ProviderActiveStart: June 15, 2025 Rigo Javier , APRNOther ProviderActiveStart: June 15, 2025 Kayy Richardson RNOther ProviderActiveStart: June 15, 2025 Jessica Christian MDOther ProviderActiveStart: June 15, 2025 Liliana Soliz MDAttending ProviderActiveStart: June 15, 2025 Liliana Soliz MDOther ProviderActiveStart: June 15, 2025 Team Status: Active Member Role/Relationship Status Rocío Deras II MD Primary Care Provider Active Start: June 23, 2025 Miguel Armijoending ProviderActiveStart: June 23, 2025 Team Status: Inactive Member Role/Relationship Status Rocío Deras II MD Primary Care Provider Active Start: July 11, 2025 End: July 11, 2025Geneva Holden NP-CAttending ProviderActiveStart: July 11, 2025 End: July 11, 2025 Team Status: Active Member Role/Relationship Status Rocío Deras II MD Primary Care Provider Active Start: July 21, 2025 Miguel Armijoending ProviderActiveStart: July 21, 2025 Team Status: Inactive Member Role/Relationship Status Rocío Deras II MD Primary Care Provider Active Start: August 15, 2025 End: August 15, 2025Jenaomie Wright MDAttending ProviderActiveStart: August 15, 2025 End: August 15, 2025 Team Status: Inactive Member Role/Relationship Status Rocío Deras II MD Primary Care Provider Active Start: August 15, 2025 End: August 15, 2025Nestor Wright MDAttending ProviderActiveStart: August 15, 2025 End: August 15, 2025 Team Status: Active Member Role/Relationship Status Rocío Deras II MD Primary Care Provider Active Start: August 29, 2025 Miguel Magallonending ProviderActiveStart: August 29, 2025 Team Status: Inactive Member Role/Relationship Status Rocío Deras II MD Primary Care Provider Active Start: August 29, 2025 End: August 29, 2025Carolyn Ramsey MDAttending ProviderActiveStart: August 29, 2025 End: August 29, 2025 FOR RECORDS PERTAINING TO PATIENTS WHO [...] BE BASED ON THE PRIMARY CLINICAL RECORDS. [facility], [facility]. provides no warranty or guarantee of the accuracy or completeness of information in this document.
[2025-09-12 10:58] LABS: Thyroid Stimulating Hormone 1.128 uIU/mL (0.358-3.740)
[2025-09-13 13:40] LABS: C. Difficile PCR POSITIVE
[2025-09-13 16:12] LABS: Deamidated Gliadin Abs, IgA 5 units (0-19); Deamidated Gliadin Abs, IgG 2 units (0-19); Immunoglobulin A, Qn, Serum 280 mg/dL (87-352)
== END 2025-09-12 09:14 | disposition home or self-care (01) ==
LOC: LAB 09:17
PROVIDERS: PCP Internal Medicine; Visit Provider Internal Medicine
DX: R19.7 Diarrhea, unspecified (principal)
CPT/HCPCS: 36415; 82784; 83993; 84443; 85652; 86140; 86231; 86258; 86364; 87389; 87493